=== PATIENT | female | born 1960 | race Caucasian/White ===

== ENCOUNTER 2017-12-24 12:18 | Emergency (ER) | payer MEDICAID, SELFPAY ==
[2017-12-24 12:26] VITALS: BP 130/98; PULSE 75; RESP 16; TEMP 36.3; O2SAT 95
[2017-12-24] MEDS: Ibuprofen 600 MG TAB PO (12:40)
--- NOTE | 2017-12-24 13:00 | W.ED.GENAD ---
Discharge Plan Disposition Patient Disposition: HOME Condition: Good Discharge Details Chief Complaint: Orthopedic Clinical Impression: Contusion of foot, right Primary Care Provider: Malu Sampson ED Provider: Nisha Liu Home Meds and New Rx's Prescriptions: Continue loratadine 10 MG tablet,disintegrating 10 mg PO DAILY RF: 0 carvedilol [Coreg] 3.125 MG tablet 6.25 mg PO BID RF: 0 albuterol sulfate [ProAir HFA] 8.5 GM HFA aerosol inhaler 1 - 2 puff Inhalation Q6H PRN RF: 0 levalbuterol tartrate [Xopenex HFA] 15 GM HFA aerosol inhaler 45 mcg Inhalation Q4H PRN RF: 0 fluticasone-salmeterol [Advair Diskus] 1 EACH blister with device 1 ea Inhalation BID RF: 0 tiotropium bromide [Spiriva with HandiHaler] 1 PUFF capsule, w/inhalation device 1 puff QAM RF: 0 citalopram 20 MG tablet 40 mg PO QAM RF: 0 levothyroxine 50 MCG tablet 50 mcg PO DAILY@0730 RF: 0 gabapentin 300 MG capsule 800 mg PO TID RF: 0 pravastatin 20 MG tablet 80 mg PO QPM RF: 0 omeprazole 40 MG capsule,delayed release(DR/EC) 20 mg PO DAILY RF: 0 cyanocobalamin (vitamin B-12) [Vitamin B-12] 1,000 MCG tablet 1,000 mcg PO DAILY RF: 0 hydroxyzine HCl 25 MG tablet 50 mg PO BID RF: 0 famotidine 20 MG tablet 20 mg PO DAILY 14 Days RF: 0 docusate sodium [Colace] 100 MG capsule 100 mg PO BID PRNQty: 30 RF: 0 ropinirole 0.25 MG tablet 0.25 mg PO BID RF: 0 metformin 500 mg Tablet 500 mg PO BID RF: 0 clopidogrel [Plavix] 75 mg Tablet 75 mg PO DAILY RF: 0 lorazepam 0.5 mg Tablet 0.5 mg PO TID PRNRF: 0 morphine 15 mg Tablet 15 mg PO TID PRNRF: 0 insulin aspart U-100 [Novolog Flexpen U-100 Insulin] 100 unit/mL Insulin Pen RF: 0 Discharge Instructions Instructions: Foot Contusion (ED) Additional Instructions: wear Postop shoe for comfort Ibuprofen 600 mg 4 times daily with food if needed for pain Can add acetaminophen 650 mg 4 times daily for breakthrough pain Use ice or heat for comfort Referrals: Malu Sampson [Primary Care Provider] - Return if symptoms worsen Discharge Data Discharge Date/Time-TO BE ENTERED AT DEPARTURE: 12/24/17 14:07 Medical Decision Making Medical Records Medical records reviewed: Yes I reviewed the patient's medical records. Patient presents with trauma of right foot unable to ambulate due to pain. X-ray obtained Patient provided ibuprofen 600 mg orally Postop shoe applied by nursing Imaging Data Radiologic Study: Attestation: I personally reviewed and interpreted this imaging study as follows: Imaging: X-Ray (Right foot) HPI - General Adult General Date/Time Provider Initiated Documentation: 12/24/17 12:31. Limitations to Documentation: no limitations. Information obtained by: patient and RN notes reviewed. History of Present Illness Quality is described as sharp, and is localized to the right (Foot and toes). Patient reports no radiation. and it has been constant. Immobilization improves symptom(s), and Rest improves symptom(s), Movement worsens symptoms . Patient notes no other symptoms.. Patient did receive the following treatments prior to arrival, other (Elevation) HPI Narrative: Patient presents to the emergency department for evaluation of right foot pain after she dropped a vacuum and lamps on it yesterday, no obvious deformity, ecchymosis noted to dorsum of foot at base of toes. States she cannot move her toes due to pain. Has elevated has not taken any [id number] pain medication Related Data Home Medications Medication Instructions Recorded Confirmed citalopram 40 mg PO QAM 08/31/12 12/24/17 fluticasone-salmeterol [Advair 1 ea INHALATION BID 08/31/12 12/24/17 Diskus] gabapentin 800 mg PO TID 08/31/12 12/24/17 levothyroxine 50 mcg PO DAILY@0730 08/31/12 12/24/17 pravastatin 80 mg PO QPM 08/31/12 12/24/17 tiotropium bromide [Spiriva with 1 puff QAM 08/31/12 12/24/17 HandiHaler] albuterol sulfate [ProAir HFA] 1 - 2 puff INHALATION Q6H PRN 05/04/14 12/24/17 inhaler carvedilol [Coreg] 6.25 mg PO BID tab-cap 05/04/14 08/05/17 levalbuterol tartrate [Xopenex HFA] 45 mcg INHALATION Q4H PRN inhaler 05/04/14 12/24/17 loratadine 10 mg PO DAILY 05/04/14 12/24/17 omeprazole 20 mg PO DAILY 04/26/16 12/24/17 cyanocobalamin (vitamin B-12) 1,000 mcg PO DAILY 10/16/16 12/24/17 [Vitamin B-12] hydroxyzine HCl 50 mg PO BID 10/16/16 12/24/17 ropinirole 0.25 mg PO BID 06/27/17 12/24/17 clopidogrel [Plavix] 75 mg PO DAILY 12/24/17 12/24/17 insulin aspart U-100 [Novolog 12/24/17 Flexpen U-100 Insulin] lorazepam 0.5 mg PO TID PRN 12/24/17 12/24/17 metformin 500 mg PO BID 12/24/17 12/24/17 morphine 15 mg PO TID PRN 12/24/17 12/24/17 Previous Rx's Medication Instructions Recorded famotidine 20 mg PO DAILY 14 Days tab 12/18/16 docusate sodium [Colace] 100 mg PO BID PRN #30 cap 02/20/17 Allergies Allergy/AdvReac Type Severity Reaction Status Date / Time amoxicillin trihydrate Allergy rash/gi Unverified 12/24/17 12:29 [From Augmentin] upset bacitracin Allergy Skin Rash Unverified 12/24/17 12:29 [From Neosporin ([id number])] bacitracin zinc Allergy Skin Rash Unverified 12/24/17 12:29 [From Neosporin ([id number])] neomycin sulfate Allergy Skin Rash Unverified 12/24/17 12:29 [From Neosporin ([id number])] polymyxin B Allergy Skin Rash Unverified 12/24/17 12:29 [From Neosporin ([id number])] potassium clavulanate Allergy rash/gi Unverified 12/24/17 12:29 [From Augmentin] upset aspirin AdvReac Nausea Unverified 12/24/17 12:29 lactose AdvReac gi upset Unverified 12/24/17 12:29 General Stated Complaint: Orthopedic ALLYSON: 4 Review of Systems Review of Systems All systems reviewed & are unremarkable except as noted in HPI and below Musculoskeletal Reports arthralgias (Right foot) PFSH Social History Smoking/Tobacco Use Status: Current every day Exam Extrem General: abnormal ROM Other: Ecchymosis to toes 2 through 5 no obvious deformity, hematoma to third toe Course Vital Signs Temperature 36.3 C L 12/24/17 12:26 Pulse 75 12/24/17 12:26 Respiratory Rate 16 12/24/17 12:26 Blood Pressure 130/98 H 12/24/17 12:26 Pulse Oximetry 95 12/24/17 12:26 Temperature 36.3 C L 12/24/17 12:26 Pulse 75 12/24/17 12:26 Respiratory Rate 16 12/24/17 12:26 Blood Pressure 130/98 H 12/24/17 12:26 Pulse Oximetry 95 12/24/17 12:26
--- NOTE | 2017-12-24 13:05 | DI.RAD_ITS ---
SYMPTOMS/DIAGNOSIS: TRAUMA, PAIN TO 2ND-5TH TOES AND DORSUM OF FOOT RIGHT FOOT: Three views. No acute fracture or dislocation is seen. No radiopaque foreign bodies are seen in the soft tissues. IMPRESSION: No acute abnormality.
--- NOTE | 2017-12-24 13:09 | ED.GENADUL_ITS ---
Discharge Plan Disposition Patient Disposition: HOME Condition: Good Discharge Details Chief Complaint: Orthopedic Clinical Impression: Contusion of foot, right Primary Care Provider: Malu Sampson ED Provider: Nisha Liu Home Meds and New Rx's Prescriptions: Continue loratadine 10 MG tablet,disintegrating 10 mg PO DAILY RF: 0 carvedilol [Coreg] 3.125 MG tablet 6.25 mg PO BID RF: 0 albuterol sulfate [ProAir HFA] 8.5 GM HFA aerosol inhaler 1 - 2 puff Inhalation Q6H PRN RF: 0 levalbuterol tartrate [Xopenex HFA] 15 GM HFA aerosol inhaler 45 mcg Inhalation Q4H PRN RF: 0 fluticasone-salmeterol [Advair Diskus] 1 EACH blister with device 1 ea Inhalation BID RF: 0 tiotropium bromide [Spiriva with HandiHaler] 1 PUFF capsule, w/inhalation device 1 puff QAM RF: 0 citalopram 20 MG tablet 40 mg PO QAM RF: 0 levothyroxine 50 MCG tablet 50 mcg PO DAILY@0730 RF: 0 gabapentin 300 MG capsule 800 mg PO TID RF: 0 pravastatin 20 MG tablet 80 mg PO QPM RF: 0 omeprazole 40 MG capsule,delayed release(DR/EC) 20 mg PO DAILY RF: 0 cyanocobalamin (vitamin B-12) [Vitamin B-12] 1,000 MCG tablet 1,000 mcg PO DAILY RF: 0 hydroxyzine HCl 25 MG tablet 50 mg PO BID RF: 0 famotidine 20 MG tablet 20 mg PO DAILY 14 Days RF: 0 docusate sodium [Colace] 100 MG capsule 100 mg PO BID PRNQty: 30 RF: 0 ropinirole 0.25 MG tablet 0.25 mg PO BID RF: 0 metformin 500 mg Tablet 500 mg PO BID RF: 0 clopidogrel [Plavix] 75 mg Tablet 75 mg PO DAILY RF: 0 lorazepam 0.5 mg Tablet 0.5 mg PO TID PRNRF: 0 morphine 15 mg Tablet 15 mg PO TID PRNRF: 0 insulin aspart U-100 [Novolog Flexpen U-100 Insulin] 100 unit/mL Insulin Pen RF: 0 Discharge Instructions Instructions: Foot Contusion (ED) Additional Instructions: wear Postop shoe for comfort Ibuprofen 600 mg 4 times daily with food if needed for pain Can add acetaminophen 650 mg 4 times daily for breakthrough pain Use ice or heat for comfort Referrals: Malu Sampson [Primary Care Provider] - Return if symptoms worsen Discharge Data Discharge Date/Time-TO BE ENTERED AT DEPARTURE: 12/24/17 14:07 Medical Decision Making Medical Records Medical records reviewed: Yes I reviewed the patient's medical records. Patient presents with trauma of right foot unable to ambulate due to pain. X-ray obtained Patient provided ibuprofen 600 mg orally Postop shoe applied by nursing Imaging Data Radiologic Study: Attestation: I personally reviewed and interpreted this imaging study as follows: Imaging: X-Ray (Right foot) HPI - General Adult General Date/Time Provider Initiated Documentation: 12/24/17 12:31 . Limitations to Documentation: no limitations . Information obtained by: patient and RN notes reviewed . History of Present Illness Quality is described as sharp, and is localized to the right (Foot and toes). Patient reports no radiation. and it has been constant. Immobilization improves symptom(s), and Rest improves symptom(s), Movement worsens symptoms . Patient notes no other symptoms.. Patient did receive the following treatments prior to arrival, other (Elevation) HPI Narrative: Patient presents to the emergency department for evaluation of right foot pain after she dropped a vacuum and lamps on it yesterday, no obvious deformity, ecchymosis noted to dorsum of foot at base of toes. States she cannot move her toes due to pain. Has elevated has not taken any over-the- counter pain medication Related Data Home Medications Medication Instructions Recorded Confirmed citalopram 40 mg PO QAM 08/31/12 12/24/17 fluticasone-salmeterol [Advair 1 ea INHALATION BID 08/31/12 12/24/17 Diskus] gabapentin 800 mg PO TID 08/31/12 12/24/17 levothyroxine 50 mcg PO DAILY@0730 08/31/12 12/24/17 pravastatin 80 mg PO QPM 08/31/12 12/24/17 tiotropium bromide [Spiriva with 1 puff QAM 08/31/12 12/24/17 HandiHaler] albuterol sulfate [ProAir HFA] 1 - 2 puff INHALATION Q6H PRN 05/04/14 12/24/17 inhaler carvedilol [Coreg] 6.25 mg PO BID tab-cap 05/04/14 08/05/17 levalbuterol tartrate [Xopenex HFA] 45 mcg INHALATION Q4H PRN inhaler 05/04/14 12/24/17 loratadine 10 mg PO DAILY 05/04/14 12/24/17 omeprazole 20 mg PO DAILY 04/26/16 12/24/17 cyanocobalamin (vitamin B-12) 1,000 mcg PO DAILY 10/16/16 12/24/17 [Vitamin B-12] hydroxyzine HCl 50 mg PO BID 10/16/16 12/24/17 ropinirole 0.25 mg PO BID 06/27/17 12/24/17 clopidogrel [Plavix] 75 mg PO DAILY 12/24/17 12/24/17 insulin aspart U-100 [Novolog 12/24/17 Flexpen U-100 Insulin] lorazepam 0.5 mg PO TID PRN 12/24/17 12/24/17 metformin 500 mg PO BID 12/24/17 12/24/17 morphine 15 mg PO TID PRN 12/24/17 12/24/17 Previous Rx's Medication Instructions Recorded famotidine 20 mg PO DAILY 14 Days tab 12/18/16 docusate sodium [Colace] 100 mg PO BID PRN #30 cap 02/20/17 Allergies Allergy/AdvReac Type Severity Reaction Status Date / Time amoxicillin trihydrate Allergy rash/gi Unverified 12/24/17 12:29 [From Augmentin] upset bacitracin Allergy Skin Rash Unverified 12/24/17 12:29 [From Neosporin ([id number])] bacitracin zinc Allergy Skin Rash Unverified 12/24/17 12:29 [From Neosporin ([id number])] neomycin sulfate Allergy Skin Rash Unverified 12/24/17 12:29 [From Neosporin ([id number])] polymyxin B Allergy Skin Rash Unverified 12/24/17 12:29 [From Neosporin ([id number])] potassium clavulanate Allergy rash/gi Unverified 12/24/17 12:29 [From Augmentin] upset aspirin AdvReac Nausea Unverified 12/24/17 12:29 lactose AdvReac gi upset Unverified 12/24/17 12:29 General Stated Complaint: Orthopedic ALLYSON: 4 Review of Systems Review of Systems All systems reviewed & are unremarkable except as noted in HPI and below Musculoskeletal Reports arthralgias (Right foot) PFSH Social History Smoking/Tobacco Use Status: Current every day Exam Extrem General: abnormal ROM Other: Ecchymosis to toes 2 through 5 no obvious deformity, hematoma to third toe Course Vital Signs Temperature 36.3 C L 12/24/17 12:26 Pulse 75 12/24/17 12:26 Respiratory Rate 16 12/24/17 12:26 Blood Pressure 130/98 H 12/24/17 12:26 Pulse Oximetry 95 12/24/17 12:26 Temperature 36.3 C L 12/24/17 12:26 Pulse 75 12/24/17 12:26 Respiratory Rate 16 12/24/17 12:26 Blood Pressure 130/98 H 12/24/17 12:26 Pulse Oximetry 95 12/24/17 12:26
== END 2017-12-24 14:07 | disposition home or self-care (01) ==
LOC: ER 13:23
PROVIDERS: Emergency Provider Nurse Practitioner Acute Care; PCP Nurse Practitioner Family
DX: S90.31XA Contusion of right foot, initial encounter (principal); W20.8XXA Other cause of strike by thrown, projected or falling object, initial encounter
CPT/HCPCS: 29515; 99284; 73630; 99281

== ENCOUNTER 2018-01-26 09:16 | Emergency (ER) | payer MEDICAID, SELFPAY ==
[2018-01-26 10:12] VITALS: BP 112/74; PULSE 72; RESP 16; TEMP 36.4; O2SAT 96
--- NOTE | 2018-01-26 11:39 | ED.GENADUL_ITS ---
Discharge Plan Disposition Patient Disposition: HOME Condition: Good Discharge Details Chief Complaint: GenMedical Clinical Impression: Contusion of knee Primary Care Provider: Mehul Valladares ED Provider: Cj Duffy [place] Meds and New Rx's Prescriptions: No Action loratadine 10 MG tablet,disintegrating 10 mg PO DAILY RF: 0 carvedilol [Coreg] 3.125 MG tablet 6.25 mg PO BID RF: 0 albuterol sulfate [ProAir HFA] 8.5 GM HFA aerosol inhaler 1 - 2 puff Inhalation Q6H PRN RF: 0 levalbuterol tartrate [Xopenex HFA] 15 GM HFA aerosol inhaler 45 mcg Inhalation Q4H PRN RF: 0 fluticasone-salmeterol [Advair Diskus] 1 EACH blister with device 1 ea Inhalation BID RF: 0 tiotropium bromide [Spiriva with HandiHaler] 1 PUFF capsule, w/inhalation device 1 puff QAM RF: 0 citalopram 20 MG tablet 40 mg PO QAM RF: 0 levothyroxine 50 MCG tablet 50 mcg PO DAILY@0730 RF: 0 gabapentin 300 MG capsule 800 mg PO TID RF: 0 pravastatin 20 MG tablet 80 mg PO QPM RF: 0 omeprazole 40 MG capsule,delayed release(DR/EC) 20 mg PO DAILY RF: 0 cyanocobalamin (vitamin B-12) [Vitamin B-12] 1,000 MCG tablet 1,000 mcg PO DAILY RF: 0 hydroxyzine HCl 25 MG tablet 50 mg PO BID RF: 0 famotidine 20 MG tablet 20 mg PO DAILY 14 Days RF: 0 docusate sodium [Colace] 100 MG capsule 100 mg PO BID PRNQty: 30 RF: 0 ropinirole 0.25 MG tablet 0.25 mg PO BID RF: 0 metformin 500 mg Tablet 500 mg PO BID RF: 0 clopidogrel [Plavix] 75 mg Tablet 75 mg PO DAILY RF: 0 lorazepam 0.5 mg Tablet 0.5 mg PO TID PRNRF: 0 morphine 15 mg Tablet 15 mg PO TID PRNRF: 0 insulin aspart U-100 [Novolog Flexpen U-100 Insulin] 100 unit/mL Insulin Pen RF: 0 Discharge Instructions Instructions: Contusion in Adults (ED) Additional Instructions: Please f/u with your PCP to evaluate the need to see neurology. Patient states she has history of MS. Referrals: Malu Sampson [ NON-[facility] STAFF PHYSICIAN] - Discharge Data Discharge Date/Time-TO BE ENTERED AT DEPARTURE: 01/26/18 12:35 Medical Decision Making Will x-ray knee. Patient apprised of knee x-ray impression with radiologist confirming. Advised to continue with RICE therapy and Tylenol for pain. Return PCP if symptoms continue. Return to ED as needed. Imaging Data Radiologic Study: Imaging: X-Ray My impression: no acute lucy pathology. Radiologist's impression: Agreed no acute fracture. HPI General Mode of arrival: wheelchair . Date/Time Provider Initiated Documentation: 01/26/18 10:20 . Limitations to Documentation: no limitations . Information obtained by: patient . History of Present Illness 57 year old F presents to the emergency department with the chief complaint of knee pain and right side of abdomen pain after fall, described as mild, Quality is described as aching, and is localized to the right (knee) and lower extremity. Patient reports no radiation. Patient started experiencing this day(s) (1) and it has been constant. No relieving factors improve symptom(s), Movement worsens symptoms . Patient notes other (right side pain ). Patient did receive the following treatments prior to arrival, none HPI Narrative: She reports falling allot and last time was yesterday. She landed on her right knee and noticed swelling last night and applied ice. Swelling almost resolved today. Her right side started hurting shortly after the fall. Denies any dizziness, N/V, head trauma, SOB or CP. Related Data Home Medications Medication Instructions Recorded Confirmed citalopram 40 mg PO QAM 08/31/12 12/24/17 fluticasone-salmeterol [Advair 1 ea INHALATION BID 08/31/12 12/24/17 Diskus] gabapentin 800 mg PO TID 08/31/12 12/24/17 levothyroxine 50 mcg PO DAILY@0730 08/31/12 12/24/17 pravastatin 80 mg PO QPM 08/31/12 12/24/17 tiotropium bromide [Spiriva with 1 puff QAM 08/31/12 12/24/17 HandiHaler] albuterol sulfate [ProAir HFA] 1 - 2 puff INHALATION Q6H PRN 05/04/14 12/24/17 inhaler carvedilol [Coreg] 6.25 mg PO BID tab-cap 05/04/14 08/05/17 levalbuterol tartrate [Xopenex HFA] 45 mcg INHALATION Q4H PRN inhaler 05/04/14 12/24/17 loratadine 10 mg PO DAILY 05/04/14 12/24/17 omeprazole 20 mg PO DAILY 04/26/16 12/24/17 cyanocobalamin (vitamin B-12) 1,000 mcg PO DAILY 10/16/16 12/24/17 [Vitamin B-12] hydroxyzine HCl 50 mg PO BID 10/16/16 12/24/17 famotidine 20 mg PO DAILY 14 Days tab 12/18/16 12/24/17 docusate sodium [Colace] 100 mg PO BID PRN #30 cap 02/20/17 12/24/17 ropinirole 0.25 mg PO BID 06/27/17 12/24/17 clopidogrel [Plavix] 75 mg PO DAILY 12/24/17 12/24/17 insulin aspart U-100 [Novolog 12/24/17 Flexpen U-100 Insulin] lorazepam 0.5 mg PO TID PRN 12/24/17 12/24/17 metformin 500 mg PO BID 12/24/17 12/24/17 morphine 15 mg PO TID PRN 12/24/17 12/24/17 Previous Rx's Medication Instructions Recorded famotidine 20 mg PO DAILY 14 Days tab 12/18/16 docusate sodium [Colace] 100 mg PO BID PRN #30 cap 02/20/17 Allergies Allergy/AdvReac Type Severity Reaction Status Date / Time amoxicillin trihydrate Allergy rash/gi Unverified 12/24/17 12:29 [From Augmentin] upset bacitracin Allergy Skin Rash Unverified 12/24/17 12:29 [From Neosporin ([id number])] bacitracin zinc Allergy Skin Rash Unverified 12/24/17 12:29 [From Neosporin (mai-[id number])] neomycin sulfate Allergy Skin Rash Unverified 12/24/17 12:29 [From Neosporin ([id number])] polymyxin B Allergy Skin Rash Unverified 12/24/17 12:29 [From Neosporin ([id number])] potassium clavulanate Allergy rash/gi Unverified 12/24/17 12:29 [From Augmentin] upset aspirin AdvReac Nausea Unverified 12/24/17 12:29 lactose AdvReac gi upset Unverified 12/24/17 12:29 General Stated Complaint: Orthopedic ALLYSON: 4 Review of Systems Constitutional Reports as per HPI Respiratory Reports system reviewed and no additional complaints, except as docu Gastrointestinal Reports system reviewed and no additional complaints, except as docu Genitourinary Reports system reviewed and no additional complaints, except as docu Musculoskeletal Reports other (pain to right side of abdomen and right knee) Neurologic Reports system reviewed and no additional complaints, except as docu Exam Const General: cooperative Nutritional Appearance: overweight Orientation: alert, awake and oriented x3 HENMT Head: normal to inspection Ears: hearing grossly normal bilaterally General nose exam: external nose normal Eyes General: appearance normal, both eyes and all related structures Neck Neck: normal visual inspection Resp Effort & Inspection: normal respiratory effort Auscultation: clear to auscultation bilaterally Cardio Jugular venous pressure: no JVD Rate: regular rate Rhythm: regular rhythm GI Inspection: non-distended Palpation: soft and nontender Auscultation: normal bowel sounds Back/Spine/Pelvis Back: No back tenderness Skin General skin exam: no rashes or lesions noted Neuro General: alert and awake Cognition: normal cognition Speech: speech normal Extrem General: normal to inspection, full ROM and normal capillary refill Right lower extremity: normal to inspection, full ROM, no joint enlargement and knee Details: normal to inspection, tenderness (through out the knee) Location: of the patella, of the popliteal fossa, of the medial joint line and of the lateral joint line, normal ROM and knee ligament exam normal; no swelling Course Vital Signs Temperature 36.4 C L 01/26/18 10:12 Pulse 72 01/26/18 10:12 Respiratory Rate 16 01/26/18 10:12 Blood Pressure 112/74 01/26/18 10:12 Pulse Oximetry 96 01/26/18 10:12 Temperature 36.4 C L 01/26/18 10:12 Temperature Source Temporal Artery Scan 01/26/18 10:12 Pulse 72 01/26/18 10:12 Respiratory Rate 16 01/26/18 10:12 Respiratory Effort 01/26/18 10:14 Blood Pressure 112/74 01/26/18 10:12 Blood Pressure Position Sitting 01/26/18 10:12 Pulse Oximetry 96 01/26/18 10:12 Oxygen Delivery Method Room Air 01/26/18 10:12 Oxygen Flow Rate 0 01/26/18 10:12 Pain Level 10 01/26/18 10:12
[2018-01-26] MEDS: Acetaminophen 500 MG TAB 1000 MG PO (11:52)
--- NOTE | 2018-01-26 11:55 | DI.RAD_ITS ---
SYMPTOM/DIAGNOSIS: FELL, PAIN RIGHT KNEE: Four views were obtained. There may be slight narrowing of the medial tibiofemoral cartilaginous joint space. The bones of the knee appear intact. No evidence of acute fracture.
== END 2018-01-26 12:35 | disposition home or self-care (01) ==
PROVIDERS: Emergency Provider Nurse Practitioner Family; PCP Internal Medicine
DX: S80.01XA Contusion of right knee, initial encounter (principal); W18.30XA Fall on same level, unspecified, initial encounter; R29.6 Repeated falls; G35 Multiple sclerosis; E11.9 Type 2 diabetes mellitus without complications; Z79.4 Long term (current) use of insulin; I10 Essential (primary) hypertension
CPT/HCPCS: 99283; 73564

== ENCOUNTER 2018-02-06 09:39 | Outpatient (CLI) | payer MEDICAID, SELFPAY ==
[2018-02-06 09:59] LABS: Abs Immature Grans 0.05 k/cumm (0.0-0.09); Absolute Basophil Count 0.01 k/cumm (0.0-0.2); Absolute Eosinophil Count 0.18 k/cumm (0.0-0.7); Absolute Lymphocyte Count 2.22 k/cumm (1.2-3.4); Absolute Monocyte Count 0.48 k/cumm (0.11-0.7); Absolute Neutrophil Count 3.52 k/cumm (1.2-6.7); Basophils % 0.2; Eosinophils % 2.8; HCT 39.6 % (36.0-46.0); HGB 13.2 g/dL (12.0-15.5); Immature Grans % 0.8; Lymphocytes % 34.4; Mean Corp. HGB Concentration 33.3 g/dL (32.0-36.0); Mean Corpuscular Hemoglobin 29.9 pg (27.0-33.0); Mean Corpuscular Volume 89.6 fL (80-95); Mean Platelet Volume 9.5 fL (8.0-11.0); Monocytes % 7.4; Neutrophils % 54.4; Platelet Count 114 x1000/uL (130-400); RBC 4.42 m/cumm (4.00-5.20); RBC Distribution Width 14.1 % (11.7-14.6); White Blood Cell Count 6.46 k/cumm (4.4-10.8)
[2018-02-06 10:36] LABS: C-Reactive Protein 0.62 mg/dL (0.0-0.3)
[2018-02-06 12:26] LABS: ESR 29 MM/HR (0-30)
== END 2018-02-06 09:59 ==
PROVIDERS: PCP Internal Medicine; Visit Provider Internal Medicine
DX: H53.132 Sudden visual loss, left eye (principal)
CPT/HCPCS: 36415; 85652; 85025; 86140

== ENCOUNTER 2018-02-19 11:20 | Outpatient (CLI) | payer MEDICAID, SELFPAY ==
[2018-02-19 11:57] LABS: Abs Immature Grans 0.03 k/cumm (0.0-0.09); Absolute Basophil Count 0.01 k/cumm (0.0-0.2); Absolute Eosinophil Count 0.14 k/cumm (0.0-0.7); Absolute Lymphocyte Count 2.33 k/cumm (1.2-3.4); Absolute Monocyte Count 0.48 k/cumm (0.11-0.7); Absolute Neutrophil Count 3.72 k/cumm (1.2-6.7); Basophils % 0.1; Eosinophils % 2.1; HCT 39.8 % (36.0-46.0); HGB 13.4 g/dL (12.0-15.5); Immature Grans % 0.4; Lymphocytes % 34.7; Mean Corp. HGB Concentration 33.7 g/dL (32.0-36.0); Mean Corpuscular Hemoglobin 30.5 pg (27.0-33.0); Mean Corpuscular Volume 90.5 fL (80-95); Mean Platelet Volume 9.5 fL (8.0-11.0); Monocytes % 7.2; Neutrophils % 55.5; Platelet Count 134 x1000/uL (130-400); RBC Distribution Width 14.5 % (11.7-14.6); White Blood Cell Count 6.71 k/cumm (4.4-10.8)
[2018-02-19 12:06] LABS: INR 1.1 (1.0-3.5); PTT Activated 24.8 sec (21.0-31.4)
[2018-02-19 13:11] LABS: Uric Acid 6.2 mg/dL (2.6-6.0)
== END 2018-02-19 11:40 ==
PROVIDERS: PCP Internal Medicine; Visit Provider Internal Medicine
DX: M79.674 Pain in right toe(s) (principal); R23.9 Unspecified skin changes; K70.30 Alcoholic cirrhosis of liver without ascites
CPT/HCPCS: 36415; 84550; 85025; 85610; 85730

== ENCOUNTER 2018-03-16 19:33 | Emergency (ER) | payer MEDICAID, SELFPAY ==
[2018-03-16] VITALS (16 sets, daily range): BP systolic 115–140; BP diastolic 74–102; PULSE 63–107; RESP 18; TEMP 36; O2SAT 94–98
--- NOTE | 2018-03-16 20:17 | W.ED.GENAD ---
Discharge Plan Disposition Patient Disposition: HOME Condition: Stable Discharge Details Chief Complaint: Nausea/Vomit/Diar Clinical Impression: Vomiting, Chronic pain of toe, History of gout Reason For Visit: SACHA Primary Care Provider: Mehul Valladares ED Provider: Elyse Poe Home Meds and New Rx's Prescriptions: Continue loratadine 10 MG tablet,disintegrating 10 mg PO DAILY RF: 0 carvedilol [Coreg] 3.125 MG tablet 6.25 mg PO BID RF: 0 albuterol sulfate [ProAir HFA] 8.5 GM HFA aerosol inhaler 1 - 2 puff Inhalation Q6H PRN RF: 0 levalbuterol tartrate [Xopenex HFA] 15 GM HFA aerosol inhaler 45 mcg Inhalation Q4H PRN RF: 0 fluticasone-salmeterol [Advair Diskus] 1 EACH blister with device 1 ea Inhalation BID RF: 0 tiotropium bromide [Spiriva with HandiHaler] 1 PUFF capsule, w/inhalation device 1 puff QAM RF: 0 citalopram 20 MG tablet 40 mg PO QAM RF: 0 levothyroxine 50 MCG tablet 50 mcg PO DAILY@0730 RF: 0 gabapentin 300 MG capsule 800 mg PO TID RF: 0 pravastatin 20 MG tablet 80 mg PO QPM RF: 0 omeprazole 40 MG capsule,delayed release(DR/EC) 20 mg PO DAILY RF: 0 cyanocobalamin (vitamin B-12) [Vitamin B-12] 1,000 MCG tablet 1,000 mcg PO DAILY RF: 0 hydroxyzine HCl 25 MG tablet 50 mg PO BID RF: 0 famotidine 20 MG tablet 20 mg PO DAILY 14 Days RF: 0 docusate sodium [Colace] 100 MG capsule 100 mg PO BID PRNQty: 30 RF: 0 ropinirole 0.25 MG tablet 0.25 mg PO BID RF: 0 clopidogrel [Plavix] 75 mg Tablet 75 mg PO DAILY RF: 0 lorazepam 0.5 mg Tablet 0.5 mg PO TID PRNRF: 0 insulin aspart U-100 [Novolog Flexpen U-100 Insulin] 100 unit/mL Insulin Pen RF: 0 colchicine 0.6 mg Tablet 1 tab PO DAILY RF: 0 Discharge Instructions Instructions: Acute Nausea and Vomiting (ED), Arthralgia (ED) Additional Instructions: Take the compazine as needed and directed for any further nausea or vomiting. Take the colchicine as directed for your gout. Take tylenol as needed and directed for pain. Take the oxycodone as needed for pain not relieved with colchicine or tylenol. Follow up with your scheduled appointment with your primary care doctor tomorrow. Return immediately to the emergency department with any worsening or new concerning symptoms. Discharge Data Discharge Physician: Elyse Poe Medical Decision Making 57yo F w/ a h/o dm, anxiety, depression, diabetes who presents with intermittent vomiting for the past 1-2 weeks which she states is due to gout of her R 3rd toe being treated with colchicine. She denies fever, abdominal pain, diarrhea, recent travel or antibiotics. She has been trying to take her colchicine but is vomiting. Vitals within normal limits. Afebrile. R 3rd toe with very minimal erythema but no evidence of cellulitis or abscess. NV intact. Abd soft and nontender. Pt appears nontoxic but is tearful and anxious. I do not see any indication for labs or imaging and patient is agreeable and does not want any IV, IV fluids or lab work. Patient states she only wants something for her nausea and pain will give a dose of compazine and tylenol with codeine and reassess with po challenge. 2044 -- pt admits to relief of nausea but still with pain. Will give a dose of motrin. Pt denies h/o allergy to motrin. 2109 --patient denies relief with ibuprofen. Will give a dose of oxycodone. Review of [place] prescription monitoring program noted that patient had been on morphine previously, not since September 2017. Patient was able to tolerate p.o. and is requesting to go home. 1 tab of oxycodone and 2 tablets of Compazine given for home. Patient has an appointment with her primary doctor who prescribed the colchicine in [place] tomorrow. She is instructed to discuss with him if there are any other options she can take for her gout besides the colchicine as she feels like this may be the cause of her nausea and vomiting and she states she needs something better to help control her pain in her toe. Patient instructed to return here with any concerns or worsening symptoms. HPI General Mode of arrival: ambulatory. Date/Time Provider Initiated Documentation: 03/16/18 19:34. Limitations to Documentation: no limitations. Information obtained by: patient. HPI Narrative: Pt is a 57yo F w/ a h/o alcohol abuse, anxiety, depression, diabetes, hypothyroidism, hypertension who presents w/ a c/o R 3rd toe pain due to gout for a couple weeks. States she has been vomiting occasionally due to the pain. Pt states she vomited a few times daily. She states she is being treated for gout of her toe by her primary care doctor in [place] since last week. She states the pain is getting worse. She denies any new injury or fever. Pt states she is wearing a boot on her right foot to protect her toe from injury while walking and to prevent from getting wet. She denies recent travel, recent antibiotics, abdominal pain or diarrhea. Related Data Home Medications Medication Instructions Recorded Confirmed citalopram 40 mg PO QAM 08/31/12 03/16/18 fluticasone-salmeterol [Advair 1 ea INHALATION BID 08/31/12 03/16/18 Diskus] gabapentin 800 mg PO TID 08/31/12 03/16/18 levothyroxine 50 mcg PO DAILY@0730 08/31/12 03/16/18 pravastatin 80 mg PO QPM 08/31/12 03/16/18 tiotropium bromide [Spiriva with 1 puff QAM 08/31/12 03/16/18 HandiHaler] albuterol sulfate [ProAir HFA] 1 - 2 puff INHALATION Q6H PRN 05/04/14 03/16/18 inhaler carvedilol [Coreg] 6.25 mg PO BID tab-cap 05/04/14 03/16/18 levalbuterol tartrate [Xopenex HFA] 45 mcg INHALATION Q4H PRN inhaler 05/04/14 03/16/18 loratadine 10 mg PO DAILY 05/04/14 03/16/18 omeprazole 20 mg PO DAILY 04/26/16 03/16/18 cyanocobalamin (vitamin B-12) 1,000 mcg PO DAILY 10/16/16 03/16/18 [Vitamin B-12] hydroxyzine HCl 50 mg PO BID 10/16/16 03/16/18 famotidine 20 mg PO DAILY 14 Days tab 12/18/16 03/16/18 docusate sodium [Colace] 100 mg PO BID PRN #30 cap 02/20/17 03/16/18 ropinirole 0.25 mg PO BID 06/27/17 03/16/18 clopidogrel [Plavix] 75 mg PO DAILY 12/24/17 03/16/18 insulin aspart U-100 [Novolog 12/24/17 Flexpen U-100 Insulin] lorazepam 0.5 mg PO TID PRN 12/24/17 03/16/18 colchicine 1 tab PO DAILY 03/16/18 03/16/18 Previous Rx's Medication Instructions Recorded famotidine 20 mg PO DAILY 14 Days tab 12/18/16 docusate sodium [Colace] 100 mg PO BID PRN #30 cap 02/20/17 Allergies Allergy/AdvReac Type Severity Reaction Status Date / Time amoxicillin trihydrate Allergy rash/gi Unverified 03/16/18 19:44 [From Augmentin] upset bacitracin Allergy Skin Rash Unverified 03/16/18 19:44 [From Neosporin ([id number])] bacitracin zinc Allergy Skin Rash Unverified 03/16/18 19:44 [From Neosporin ([id number])] neomycin sulfate Allergy Skin Rash Unverified 03/16/18 19:44 [From Neosporin ([id number])] polymyxin B Allergy Skin Rash Unverified 03/16/18 19:44 [From Neosporin ([id number])] potassium clavulanate Allergy rash/gi Unverified 03/16/18 19:44 [From Augmentin] upset aspirin AdvReac Nausea Unverified 03/16/18 19:44 lactose AdvReac gi upset Unverified 03/16/18 19:44 General Stated Complaint: Nausea/Vomit/Diar ALLYSON: 3 Review of Systems Review of Systems All systems reviewed & are unremarkable except as noted in HPI and below Constitutional Reports as per HPI, Denies chills and Denies fever(s) Eyes Denies blurry vision ENT Denies dizziness, Denies sore throat and Denies throat swelling Cardiovascular Denies chest pain and Denies dyspnea Respiratory Denies dyspnea Gastrointestinal Denies abdominal pain, Denies diarrhea and Reports vomiting Genitourinary Denies hematuria and Denies dysuria Musculoskeletal Denies back pain and Denies numbness Integumentary/Breasts Denies lesions and Denies rash Neurologic Denies dizziness and Denies numbness Allergic/Immunologic Denies throat swelling [facility] Social History Smoking/Tobacco Use Status: Current every day Social History Smoking/Tobacco Use Status: Current every day Exam Const General: cooperative, healthy appearing and no acute distress HENMT Head: normal to inspection Mouth: oral mucosae normal Eyes General: appearance normal, both eyes and all related structures Neck Neck: normal visual inspection Resp Effort & Inspection: normal respiratory effort and able to speak in complete sentences Auscultation: clear to auscultation bilaterally Cardio Rate: regular rate Rhythm: regular rhythm GI Palpation: soft, not firm, not rigid and nontender Auscultation: hypoactive bowel sounds Skin General skin exam: no rashes or lesions noted Neuro General: alert, awake and oriented x3 Motor: muscle tone normal throughout Extrem Right lower extremity: lower leg Details: normal to inspection and no edema; no erythema and no tenderness, ankle Details: normal to inspection; no tenderness and no ecchymosis and foot (very minimal area of erythema approximately 2x2mm on R anterior distal toe overlying IP joint w/ tenderness to palpation but no abscess, fluctuance, induration. Remainder of toes appear normal to inspection) Details: vascular exam Details: dorsalis pedis pulse present and posterior tibial pulse present Psych Appearance: grossly normal Affect: normal affect Course Vital Signs Temperature 96.8 F L 03/16/18 19:39 Pulse 73 03/16/18 19:39 Respiratory Rate 18 03/16/18 19:39 Blood Pressure 128/97 H 03/16/18 19:39 Pulse Oximetry 98 03/16/18 19:39 Temperature 96.8 F L 03/16/18 19:39 Temperature Source Skin 03/16/18 19:39 Pulse 73 03/16/18 19:39 Respiratory Rate 18 03/16/18 19:39 Respiratory Effort Non-Labored 03/16/18 19:42 Blood Pressure 128/97 H 03/16/18 19:39 Pulse Oximetry 98 03/16/18 19:39 Oxygen Delivery Method Room Air 03/16/18 19:39 Oxygen Flow Rate 0 03/16/18 19:39 Pain Level 10 03/16/18 19:39
[2018-03-16] MEDS: Prochlorperazine 10 MG TAB PO ×2 (20:22→21:24)
[2018-03-16] MEDS: Ibuprofen 600 MG TAB PO (20:48)
[2018-03-16] MEDS: oxyCODONE 5 MG TAB PO ×2 (21:21→21:23)
== END 2018-03-16 21:30 | disposition home or self-care (01) ==
LOC: ER 21:35
PROVIDERS: Emergency Provider Physician Assistant; PCP Internal Medicine
DX: R11.2 Nausea with vomiting, unspecified (principal); M79.674 Pain in right toe(s); G89.29 Other chronic pain; M10.9 Gout, unspecified; E11.9 Type 2 diabetes mellitus without complications; Z79.4 Long term (current) use of insulin; I10 Essential (primary) hypertension
CPT/HCPCS: 99283

== ENCOUNTER 2018-04-05 10:05 | Emergency (ER) | payer MEDICAID, SELFPAY ==
[2018-04-05 10:10] VITALS: BP 138/80; PULSE 75; RESP 16; TEMP 36.9; O2SAT 96
--- NOTE | 2018-04-05 10:12 | NUR.NOTE ---
MD Valencia is at the bedside. Call liu in reach.
[2018-04-05 10:15] VITALS: BP 148/80; PULSE 72; RESP 16; TEMP 36.9; O2SAT 97
--- NOTE | 2018-04-05 10:15 | DI.RAD_ITS ---
SYMPTOM/DIAGNOSIS: FALL, LT FOOT PAIN LEFT FOOT: 04/05/18 Three views were obtained. No fracture seen.
--- NOTE | 2018-04-05 10:15 | DI.CT_ITS ---
SYMPTOM/DIAGNOSIS: FALL, H/O ALCOHOL ABUSE, LT SIDED PAIN CRANIAL CT: 04/05/[address] was performed. A noncontrast cranial CT was performed. The ventricular system is normal in appearance. There is no evidence of an intracranial mass lesion. There is no evidence of a subdural or epidural hematoma. No focal areas of decreased attenuation are seen. CONCLUSION: Normal noncontrast Cranial CT.
--- NOTE | 2018-04-05 10:15 | DI.RAD_ITS ---
SYMPTOM/DIAGNOSIS: FALL, PAIN PELVIS: 04/05 Single view only of the pelvis was obtained. Please note the findings are inadequate to exclude hip fracture. No gross fracture identified on the single view.
--- NOTE | 2018-04-05 10:15 | DI.RAD_ITS ---
SYMPTOM/DIAGNOSIS: FALL LT PAIN LEFT KNEE: 04/05 Three views were obtained. No fracture seen.
[2018-04-05] MEDS: HYDROmorphone 2 MG/ML VIAL 0.5 MG IVP (10:28)
[2018-04-05 10:38] LABS: Abs Immature Grans 0.05 k/cumm (0.0-0.09); Absolute Basophil Count 0.02 k/cumm (0.0-0.2); Absolute Lymphocyte Count 2.77 k/cumm (1.2-3.4); Absolute Monocyte Count 0.49 k/cumm (0.11-0.7); Absolute Neutrophil Count 4.78 k/cumm (1.2-6.7); Basophils % 0.2; Eosinophils % 1.2; HCT 39.7 % (36.0-46.0); HGB 13.6 g/dL (12.0-15.5); Immature Grans % 0.6; Lymphocytes % 33.7; Mean Corp. HGB Concentration 34.3 g/dL (32.0-36.0); Mean Corpuscular Hemoglobin 30.6 pg (27.0-33.0); Mean Corpuscular Volume 89.4 fL (80-95); Mean Platelet Volume 9.7 fL (8.0-11.0); Neutrophils % 58.3; Platelet Count 121 x1000/uL (130-400); RBC 4.44 m/cumm (4.00-5.20); RBC Distribution Width 13.8 % (11.7-14.6); White Blood Cell Count 8.21 k/cumm (4.4-10.8)
--- NOTE | 2018-04-05 10:48 | W.ED.GENAD ---
Discharge Plan Disposition Patient Disposition: HOME Condition: Improving Discharge Details Chief Complaint: Orthopedic Clinical Impression: Left ankle sprain Primary Care Provider: Mehul Valladares ED Provider: Gilberto Valencia Home Meds and New Rx's Prescriptions: Continued loratadine 10 MG tablet,disintegrating 10 mg PO DAILY RF: 0 carvedilol [Coreg] 3.125 MG tablet 6.25 mg PO BID RF: 0 albuterol sulfate [ProAir HFA] 8.5 GM HFA aerosol inhaler 1 - 2 puff Inhalation Q6H PRN RF: 0 levalbuterol tartrate [Xopenex HFA] 15 GM HFA aerosol inhaler 45 mcg Inhalation Q4H PRN RF: 0 fluticasone-salmeterol [Advair Diskus] 1 EACH blister with device 1 ea Inhalation BID RF: 0 tiotropium bromide [Spiriva with HandiHaler] 1 PUFF capsule, w/inhalation device 1 puff QAM RF: 0 citalopram 20 MG tablet 40 mg PO QAM RF: 0 levothyroxine 50 MCG tablet 50 mcg PO DAILY@0730 RF: 0 gabapentin 300 MG capsule 800 mg PO TID RF: 0 pravastatin 20 MG tablet 80 mg PO QPM RF: 0 omeprazole 40 MG capsule,delayed release(DR/EC) 20 mg PO DAILY RF: 0 cyanocobalamin (vitamin B-12) [Vitamin B-12] 1,000 MCG tablet 1,000 mcg PO DAILY RF: 0 hydroxyzine HCl 25 MG tablet 50 mg PO BID RF: 0 famotidine 20 MG tablet 20 mg PO DAILY 14 Days RF: 0 docusate sodium [Colace] 100 MG capsule 100 mg PO BID PRNQty: 30 RF: 0 ropinirole 0.25 MG tablet 0.25 mg PO BID RF: 0 clopidogrel [Plavix] 75 mg Tablet 75 mg PO DAILY RF: 0 lorazepam 0.5 mg Tablet 0.5 mg PO TID PRNRF: 0 insulin aspart U-100 [Novolog Flexpen U-100 Insulin] 100 unit/mL Insulin Pen RF: 0 colchicine 0.6 mg Tablet 1 tab PO DAILY RF: 0 Discharge Instructions Instructions: Ankle Sprain (ED) Additional Instructions: Please wear walking boot 3-7 days time with partial weightbearing as needed for pain and discomfort. Elevate above level of the heart and apply ice to reduce pain and swelling. Follow-up with regular doctor if not improving in 5 days time. Continue all regular medications. Medical Decision Making 57-year-old female with a history of alcohol abuse, mood disorder who presents with fall after slipping on ice on a sidewalk. She is not a particularly good historian. She relates pain primarily at the left foot but also knee and pelvis. Screening head CT, radiographs, laboratories obtained. Diagnostics reveal unremarkable radiographs of the left knee, foot, pelvis. CT scan of the head unremarkable for acute process. Laboratories without a significant acute finding. Patient improved with parenteral analgesia. She wears intermittently a right lower extremity walking boot but states that it is not required, is more for comfort. Today, her presentation is most consistent with left foot and ankle sprain. She is placed in an equalizer walking boot, she does have a home wheeled walker and will be discharged with her daughter to her house in [place], [place] Lab Data Lab results reviewed: Yes I reviewed the patient's lab results. Laboratory Tests Range/Units 04/05/18 04/05/18 10:30 10:30 WBC (4.4-10.8) k/cumm 8.21 RBC (4.00-5.20) m/cumm 4.44 Hgb (12.0-15.5) g/dL 13.6 Hct (36.0-46.0) % 39.7 MCV (80-95) fL 89.4 MCH (27.0-33.0) pg 30.6 MCHC (32.0-36.0) g/dL 34.3 RDW (11.7-14.6) % 13.8 Plt Count (130-400) x1000/uL 121 L MPV (8.0-11.0) fL 9.7 Immature Gran % 0.6 Neutrophils % 58.3 Lymphocytes % 33.7 Monocytes % 6.0 Eosinophils % 1.2 Basophils % 0.2 Absolute Neutrophils (1.2-6.7) k/cumm 4.78 Absolute Lymphocytes (1.2-3.4) k/cumm 2.77 Absolute Monocytes (0.11-0.7) k/cumm 0.49 Absolute Eosinophils (0.0-0.7) k/cumm 0.10 Absolute Basophils (0.0-0.2) k/cumm 0.02 Sodium (136-145) mmol/L 139 Potassium (3.5-5.1) mmol/L 3.7 Chloride (98-107) mmol/L 102 Carbon Dioxide (21.0-32.0) mmol/L 28.2 Anion Gap (3-11) mmol/L 8.8 BUN (7-18) mg/dL 15 Creatinine (0.55-1.02) mg/dL 0.75 Estimated GFR/1.73 m2 (mL/min/1.73m2) >= 60.00 Glucose (70-100) mg/dL 157 H Calcium (8.5-10.1) mg/dL 8.7 Total Bilirubin (0.2-1.0) mg/dL 0.4 AST (15-37) U/L 19 ALT (12-78) U/L 30 Alkaline Phosphatase (46-116) U/L 118 H Total Protein (6.4-8.2) g/dL 7.0 Albumin (3.4-5.0) g/dL 3.8 Ethyl Alcohol (<3) mg/dL < 3.0 HPI General Mode of arrival: EMS. Date/Time Provider Initiated Documentation: 04/05/18 10:07. Limitations to Documentation: no limitations. Information obtained by: patient and EMS. History of Present Illness 57 year old F presents to the emergency department with the chief complaint of Left foot pain, described as moderate, Quality is described as aching, and is localized to the left and lower extremity. Patient started experiencing this minute(s) and it has been constant. No relieving factors improve symptom(s), Movement worsens symptoms . Patient notes other (Left knee pain). HPI Narrative: Fall and left foot pain Related Data Home Medications Medication Instructions Recorded Confirmed citalopram 40 mg PO QAM 08/31/12 03/16/18 fluticasone-salmeterol [Advair 1 ea INHALATION BID 08/31/12 03/16/18 Diskus] gabapentin 800 mg PO TID 08/31/12 03/16/18 levothyroxine 50 mcg PO DAILY@0730 08/31/12 03/16/18 pravastatin 80 mg PO QPM 08/31/12 03/16/18 tiotropium bromide [Spiriva with 1 puff QAM 08/31/12 03/16/18 HandiHaler] albuterol sulfate [ProAir HFA] 1 - 2 puff INHALATION Q6H PRN 05/04/14 03/16/18 inhaler carvedilol [Coreg] 6.25 mg PO BID tab-cap 05/04/14 03/16/18 levalbuterol tartrate [Xopenex HFA] 45 mcg INHALATION Q4H PRN inhaler 05/04/14 03/16/18 loratadine 10 mg PO DAILY 05/04/14 03/16/18 omeprazole 20 mg PO DAILY 04/26/16 03/16/18 cyanocobalamin (vitamin B-12) 1,000 mcg PO DAILY 10/16/16 03/16/18 [Vitamin B-12] hydroxyzine HCl 50 mg PO BID 10/16/16 03/16/18 famotidine 20 mg PO DAILY 14 Days tab 12/18/16 03/16/18 docusate sodium [Colace] 100 mg PO BID PRN #30 cap 02/20/17 03/16/18 ropinirole 0.25 mg PO BID 06/27/17 03/16/18 clopidogrel [Plavix] 75 mg PO DAILY 12/24/17 03/16/18 insulin aspart U-100 [Novolog 12/24/17 Flexpen U-100 Insulin] lorazepam 0.5 mg PO TID PRN 12/24/17 03/16/18 colchicine 1 tab PO DAILY 03/16/18 03/16/18 Previous Rx's Medication Instructions Recorded famotidine 20 mg PO DAILY 14 Days tab 12/18/16 docusate sodium [Colace] 100 mg PO BID PRN #30 cap 02/20/17 Allergies Allergy/AdvReac Type Severity Reaction Status Date / Time amoxicillin trihydrate Allergy rash/gi Unverified 03/16/18 19:44 [From Augmentin] upset bacitracin Allergy Skin Rash Unverified 03/16/18 19:44 [From Neosporin ([id number])] bacitracin zinc Allergy Skin Rash Unverified 03/16/18 19:44 [From Neosporin ([id number])] neomycin sulfate Allergy Skin Rash Unverified 03/16/18 19:44 [From Neosporin ([id number])] polymyxin B Allergy Skin Rash Unverified 03/16/18 19:44 [From Neosporin ([id number])] potassium clavulanate Allergy rash/gi Unverified 03/16/18 19:44 [From Augmentin] upset aspirin AdvReac Nausea Unverified 03/16/18 19:44 lactose AdvReac gi upset Unverified 03/16/18 19:44 General Stated Complaint: Orthopedic ALLYSON: 4 Review of Systems Review of Systems 8 systems reviewed and otherwise negative [facility] Social History Smoking/Tobacco Use Status: Current every day Exam Narrative Exam Narrative: GEN: awake, alert, oriented 3. Pleasant, well groomed, interactive. HEAD: Normocephalic, atraumatic ENT: Mucous membranes moist, oropharynx unremarkable, External ear exam unremarkable EYES: PERRL, EOMI NECK: Full ROM, no CHIQUI, no menigismus CHEST/RESP: Nontender, clear to auscultation bilateral, no wheeze/rhonchi/rales CARDIOVASCULAR: RRR, no murmur, rub avel. 2+ Rad pulse bilateral ABDOMEN: Soft, nontender, no mass. +Bowel sounds. Minimal tenderness of sacrum on EXT: Right lower extremity with pre-standing walking boot at ankle/foot. full ROM, tender throughout the left lower extremity from knee to ankle without focality. Tenderness is most pronounced at the left talofibular ligament and on the dorsum of the foot. Moves both extremities voluntarily. Neuro: Grossly normal neurologic exam, conversant, interactive. Psych: Speech fluent, thoughts congruent, affect flat Course Vital Signs Temperature 36.9 C 04/05/18 10:10 Pulse 75 04/05/18 10:10 Respiratory Rate 16 04/05/18 10:10 Blood Pressure 138/80 04/05/18 10:10 Pulse Oximetry 96 04/05/18 10:10 Temperature 36.9 C 04/05/18 10:15 Temperature Source Temporal Artery Scan 04/05/18 10:15 Pulse 72 04/05/18 10:15 Respiratory Rate 16 04/05/18 10:15 Respiratory Effort 04/05/18 10:16 Blood Pressure 148/80 H 04/05/18 10:15 Blood Pressure Position Supine 04/05/18 10:15 Pulse Oximetry 97 04/05/18 10:15 Oxygen Delivery Method Room Air 04/05/18 10:15 Oxygen Flow Rate 0 04/05/18 10:15 Pain Level 9 04/05/18 10:15 Lab/Test Results Lab/Test Results: Laboratory Tests Range/Units 04/05/18 10:30 WBC (4.4-10.8) k/cumm 8.21 RBC (4.00-5.20) m/cumm 4.44 Hgb (12.0-15.5) g/dL 13.6 Hct (36.0-46.0) % 39.7 MCV (80-95) fL 89.4 MCH (27.0-33.0) pg 30.6 MCHC (32.0-36.0) g/dL 34.3 RDW (11.7-14.6) % 13.8 Plt Count (130-400) x1000/uL 121 L MPV (8.0-11.0) fL 9.7 Immature Gran % 0.6 Neutrophils % 58.3 Lymphocytes % 33.7 Monocytes % 6.0 Eosinophils % 1.2 Basophils % 0.2 Absolute Neutrophils (1.2-6.7) k/cumm 4.78 Absolute Lymphocytes (1.2-3.4) k/cumm 2.77 Absolute Monocytes (0.11-0.7) k/cumm 0.49 Absolute Eosinophils (0.0-0.7) k/cumm 0.10 Absolute Basophils (0.0-0.2) k/cumm 0.02
[2018-04-05 10:49] LABS: ALT 30 U/L (12-78); AST 19 U/L (15-37); Albumin 3.8 g/dL (3.4-5.0); Alkaline Phosphatase 118 U/L (46-116); Anion Gap 8.8 mmol/L (3-11); BUN 15 mg/dL (7-18); Bilirubin, Total 0.4 mg/dL (0.2-1.0); CO2 28.2 mmol/L (21.0-32.0); CREATININE 0.75 mg/dL (0.55-1.02); Calcium 8.7 mg/dL (8.5-10.1); Chloride 102 mmol/L (98-107); Glucose 157 mg/dL (70-100); Potassium 3.7 mmol/L (3.5-5.1); Sodium 139 mmol/L (136-145)
--- NOTE | 2018-04-05 10:51 | ED.GENADUL_ITS ---
Discharge Plan Disposition Patient Disposition: HOME Condition: Improving Discharge Details Chief Complaint: Orthopedic Clinical Impression: Left ankle sprain Primary Care Provider: Mehul Valladares ED Provider: Gilberto Valencia Home Meds and New Rx's Prescriptions: Continued loratadine 10 MG tablet,disintegrating 10 mg PO DAILY RF: 0 carvedilol [Coreg] 3.125 MG tablet 6.25 mg PO BID RF: 0 albuterol sulfate [ProAir HFA] 8.5 GM HFA aerosol inhaler 1 - 2 puff Inhalation Q6H PRN RF: 0 levalbuterol tartrate [Xopenex HFA] 15 GM HFA aerosol inhaler 45 mcg Inhalation Q4H PRN RF: 0 fluticasone-salmeterol [Advair Diskus] 1 EACH blister with device 1 ea Inhalation BID RF: 0 tiotropium bromide [Spiriva with HandiHaler] 1 PUFF capsule, w/inhalation device 1 puff QAM RF: 0 citalopram 20 MG tablet 40 mg PO QAM RF: 0 levothyroxine 50 MCG tablet 50 mcg PO DAILY@0730 RF: 0 gabapentin 300 MG capsule 800 mg PO TID RF: 0 pravastatin 20 MG tablet 80 mg PO QPM RF: 0 omeprazole 40 MG capsule,delayed release(DR/EC) 20 mg PO DAILY RF: 0 cyanocobalamin (vitamin B-12) [Vitamin B-12] 1,000 MCG tablet 1,000 mcg PO DAILY RF: 0 hydroxyzine HCl 25 MG tablet 50 mg PO BID RF: 0 famotidine 20 MG tablet 20 mg PO DAILY 14 Days RF: 0 docusate sodium [Colace] 100 MG capsule 100 mg PO BID PRNQty: 30 RF: 0 ropinirole 0.25 MG tablet 0.25 mg PO BID RF: 0 clopidogrel [Plavix] 75 mg Tablet 75 mg PO DAILY RF: 0 lorazepam 0.5 mg Tablet 0.5 mg PO TID PRNRF: 0 insulin aspart U-100 [Novolog Flexpen U-100 Insulin] 100 unit/mL Insulin Pen RF: 0 colchicine 0.6 mg Tablet 1 tab PO DAILY RF: 0 Discharge Instructions Instructions: Ankle Sprain (ED) Additional Instructions: Please wear walking boot 3-7 days time with partial weightbearing as needed for pain and discomfort. Elevate above level of the heart and apply ice to reduce pain and swelling. Follow-up with regular doctor if not improving in 5 days time. Continue all regular medications. Medical Decision Making 57-year-old female with a history of alcohol abuse, mood disorder who presents with fall after slipping on ice on a sidewalk. She is not a particularly good historian. She relates pain primarily at the left foot but also knee and pelvis. Screening head CT, radiographs, laboratories obtained. Diagnostics reveal unremarkable radiographs of the left knee, foot, pelvis. CT scan of the head unremarkable for acute process. Laboratories without a significant acute finding. Patient improved with parenteral analgesia. She wears intermittently a right lower extremity walking boot but states that it is not required, is more for comfort. Today, her presentation is most consistent with left foot and ankle sprain. She is placed in an equalizer walking boot, she does have a home wheeled walker and will be discharged with her daughter to her house in [place], [place] Lab Data Lab results reviewed: Yes I reviewed the patient's lab results. Laboratory Tests Range/Units 04/05/18 04/05/18 10:30 10:30 WBC (4.4-10.8) k/cumm 8.21 RBC (4.00-5.20) m/cumm 4.44 Hgb (12.0-15.5) g/dL 13.6 Hct (36.0-46.0) % 39.7 MCV (80-95) fL 89.4 MCH (27.0-33.0) pg 30.6 MCHC (32.0-36.0) g/dL 34.3 RDW (11.7-14.6) % 13.8 Plt Count (130-400) x1000/uL 121 L MPV (8.0-11.0) fL 9.7 Immature Gran % 0.6 Neutrophils % 58.3 Lymphocytes % 33.7 Monocytes % 6.0 Eosinophils % 1.2 Basophils % 0.2 Absolute Neutrophils (1.2-6.7) k/cumm 4.78 Absolute Lymphocytes (1.2-3.4) k/cumm 2.77 Absolute Monocytes (0.11-0.7) k/cumm 0.49 Absolute Eosinophils (0.0-0.7) k/cumm 0.10 Absolute Basophils (0.0-0.2) k/cumm 0.02 Sodium (136-145) mmol/L 139 Potassium (3.5-5.1) mmol/L 3.7 Chloride (98-107) mmol/L 102 Carbon Dioxide (21.0-32.0) mmol/L 28.2 Anion Gap (3-11) mmol/L 8.8 BUN (7-18) mg/dL 15 Creatinine (0.55-1.02) mg/dL 0.75 Estimated GFR/1.73 m2 (mL/min/1.73m2) >= 60.00 Glucose (70-100) mg/dL 157 H Calcium (8.5-10.1) mg/dL 8.7 Total Bilirubin (0.2-1.0) mg/dL 0.4 AST (15-37) U/L 19 ALT (12-78) U/L 30 Alkaline Phosphatase (46-116) U/L 118 H Total Protein (6.4-8.2) g/dL 7.0 Albumin (3.4-5.0) g/dL 3.8 Ethyl Alcohol (<3) mg/dL < 3.0 HPI General Mode of arrival: EMS . Date/Time Provider Initiated Documentation: 04/05/18 10:07 . Limitations to Documentation: no limitations . Information obtained by: patient and EMS . History of Present Illness 57 year old F presents to the emergency department with the chief complaint of Left foot pain, described as moderate, Quality is described as aching, and is localized to the left and lower extremity. Patient started experiencing this minute(s) and it has been constant. No relieving factors improve symptom(s), Movement worsens symptoms . Patient notes other (Left knee pain). HPI Narrative: Fall and left foot pain Related Data Home Medications Medication Instructions Recorded Confirmed citalopram 40 mg PO QAM 08/31/12 03/16/18 fluticasone-salmeterol [Advair 1 ea INHALATION BID 08/31/12 03/16/18 Diskus] gabapentin 800 mg PO TID 08/31/12 03/16/18 levothyroxine 50 mcg PO DAILY@0730 08/31/12 03/16/18 pravastatin 80 mg PO QPM 08/31/12 03/16/18 tiotropium bromide [Spiriva with 1 puff QAM 08/31/12 03/16/18 HandiHaler] albuterol sulfate [ProAir HFA] 1 - 2 puff INHALATION Q6H PRN 05/04/14 03/16/18 inhaler carvedilol [Coreg] 6.25 mg PO BID tab-cap 05/04/14 03/16/18 levalbuterol tartrate [Xopenex HFA] 45 mcg INHALATION Q4H PRN inhaler 05/04/14 03/16/18 loratadine 10 mg PO DAILY 05/04/14 03/16/18 omeprazole 20 mg PO DAILY 04/26/16 03/16/18 cyanocobalamin (vitamin B-12) 1,000 mcg PO DAILY 10/16/16 03/16/18 [Vitamin B-12] hydroxyzine HCl 50 mg PO BID 10/16/16 03/16/18 famotidine 20 mg PO DAILY 14 Days tab 12/18/16 03/16/18 docusate sodium [Colace] 100 mg PO BID PRN #30 cap 02/20/17 03/16/18 ropinirole 0.25 mg PO BID 06/27/17 03/16/18 clopidogrel [Plavix] 75 mg PO DAILY 12/24/17 03/16/18 insulin aspart U-100 [Novolog 12/24/17 Flexpen U-100 Insulin] lorazepam 0.5 mg PO TID PRN 12/24/17 03/16/18 colchicine 1 tab PO DAILY 03/16/18 03/16/18 Previous Rx's Medication Instructions Recorded famotidine 20 mg PO DAILY 14 Days tab 12/18/16 docusate sodium [Colace] 100 mg PO BID PRN #30 cap 02/20/17 Allergies Allergy/AdvReac Type Severity Reaction Status Date / Time amoxicillin trihydrate Allergy rash/gi Unverified 03/16/18 19:44 [From Augmentin] upset bacitracin Allergy Skin Rash Unverified 03/16/18 19:44 [From Neosporin ([id number])] bacitracin zinc Allergy Skin Rash Unverified 03/16/18 19:44 [From Neosporin ([id number])] neomycin sulfate Allergy Skin Rash Unverified 03/16/18 19:44 [From Neosporin ([id number])] polymyxin B Allergy Skin Rash Unverified 03/16/18 19:44 [From Neosporin ([id number])] potassium clavulanate Allergy rash/gi Unverified 03/16/18 19:44 [From Augmentin] upset aspirin AdvReac Nausea Unverified 03/16/18 19:44 lactose AdvReac gi upset Unverified 03/16/18 19:44 General Stated Complaint: Orthopedic ALLYSON: 4 Review of Systems Review of Systems 8 systems reviewed and otherwise negative [facility] Social History Smoking/Tobacco Use Status: Current every day Exam Narrative Exam Narrative: GEN: awake, alert, oriented 3. Pleasant, well groomed, interactive. HEAD: Normocephalic, atraumatic ENT: Mucous membranes moist, oropharynx unremarkable, External ear exam unremarkable EYES: PERRL, EOMI NECK: Full ROM, no CHIQUI, no menigismus CHEST/RESP: Nontender, clear to auscultation bilateral, no wheeze/rhonchi/rales CARDIOVASCULAR: RRR, no murmur, rub avel. 2+ Rad pulse bilateral ABDOMEN: Soft, nontender, no mass. +Bowel sounds. Minimal tenderness of sacrum on EXT: Right lower extremity with pre-standing walking boot at ankle/foot. full ROM, tender throughout the left lower extremity from knee to ankle without focality. Tenderness is most pronounced at the left talofibular ligament and on the dorsum of the foot. Moves both extremities voluntarily. Neuro: Grossly normal neurologic exam, conversant, interactive. Psych: Speech fluent, thoughts congruent, affect flat Course Vital Signs Temperature 36.9 C 04/05/18 10:10 Pulse 75 04/05/18 10:10 Respiratory Rate 16 04/05/18 10:10 Blood Pressure 138/80 04/05/18 10:10 Pulse Oximetry 96 04/05/18 10:10 Temperature 36.9 C 04/05/18 10:15 Temperature Source Temporal Artery Scan 04/05/18 10:15 Pulse 72 04/05/18 10:15 Respiratory Rate 16 04/05/18 10:15 Respiratory Effort 04/05/18 10:16 Blood Pressure 148/80 H 04/05/18 10:15 Blood Pressure Position Supine 04/05/18 10:15 Pulse Oximetry 97 04/05/18 10:15 Oxygen Delivery Method Room Air 04/05/18 10:15 Oxygen Flow Rate 0 04/05/18 10:15 Pain Level 9 04/05/18 10:15 Lab/Test Results Lab/Test Results: Laboratory Tests Range/Units 04/05/18 10:30 WBC (4.4-10.8) k/cumm 8.21 RBC (4.00-5.20) m/cumm 4.44 Hgb (12.0-15.5) g/dL 13.6 Hct (36.0-46.0) % 39.7 MCV (80-95) fL 89.4 MCH (27.0-33.0) pg 30.6 MCHC (32.0-36.0) g/dL 34.3 RDW (11.7-14.6) % 13.8 Plt Count (130-400) x1000/uL 121 L MPV (8.0-11.0) fL 9.7 Immature Gran % 0.6 Neutrophils % 58.3 Lymphocytes % 33.7 Monocytes % 6.0 Eosinophils % 1.2 Basophils % 0.2 Absolute Neutrophils (1.2-6.7) k/cumm 4.78 Absolute Lymphocytes (1.2-3.4) k/cumm 2.77 Absolute Monocytes (0.11-0.7) k/cumm 0.49 Absolute Eosinophils (0.0-0.7) k/cumm 0.10 Absolute Basophils (0.0-0.2) k/cumm 0.02
[2018-04-05 10:58] LABS: ETHANOL BLOOD < 3.0 mg/dL (<3)
--- NOTE | 2018-04-05 11:14 | DI.VRAD_ITS ---
EXAM: CT Head Without Contrast EXAM DATE/TIME: 04/05/2018 10:18 AM CLINICAL HISTORY: 57 years old, female; Pain; Patient HX: Fall HX alcohol abuse lt sided pain TECHNIQUE: Axial computed tomography images of the head/brain without contrast. Coronal and sagittal reformatted images were created and reviewed. COMPARISON: CT HEAD WITHOUT STROKE PROTOCOL 06/27/2017 2:14 AM FINDINGS: Brain: No acute intracranial hemorrhage. There is mild diffuse heterogeneity of the white matter attenuation, consistent with chronic white matter ischemic changes. Mild cerebral atrophy Ventricles: Normal. No ventriculomegaly. Bones/joints: Normal. No acute fracture. Sinuses: There is nonspecific fluid within the ethmoid sinuses. Mastoid air cells: Normal as visualized. No mastoid effusion. Soft tissues: Normal. IMPRESSION: No acute intracranial hemorrhage. Dictated and Authenticated by: Esau Issa MD. Ordering:BEVERLY Macias MD
--- NOTE | 2018-04-05 11:15 | DI.VRAD_ITS ---
EXAM: XR Pelvis, 1 or 2 Views EXAM DATE/TIME: 04/05/2018 10:59 AM CLINICAL HISTORY: 57 years old, female; Pain; Other: Fall lt pain TECHNIQUE: XR pelvis, 1 or 2 views COMPARISON: CR RT HIP COMPLETE AP PELVIS 10/16/2016 3:44 AM FINDINGS: Bones/joints: Normal. No acute fracture. There is no evidence of malalignment or dislocation. Soft tissues: Normal. IMPRESSION: No acute findings. Dictated and Authenticated by: Esau Issa MD. Ordering:BEVERLY Macias MD
--- NOTE | 2018-04-05 11:16 | DI.VRAD_ITS ---
EXAM: XR Left Foot Complete, 3 or more Views EXAM DATE/TIME: 04/05/2018 10:18 AM CLINICAL HISTORY: 57 years old, female; Pain; Foot; Left; Patient HX: Fall lt sided pain TECHNIQUE: XR Left foot 3 or more views. COMPARISON: CR LEFT FOOT COMPLETE 07/12/2016 1:01 AM FINDINGS: Bones/joints: Osteopenia There is no evidence of acute fracture. There is no evidence of malalignment or dislocation. Soft tissues: Normal. IMPRESSION: There is no evidence of acute fracture. Dictated and Authenticated by: Esau Issa MD. Ordering:BEVERLY aMcias MD
--- NOTE | 2018-04-05 11:19 | DI.VRAD_ITS ---
EXAM: XR Left Knee, 3 Views EXAM DATE/TIME: 04/05/2018 10:18 AM CLINICAL HISTORY: 57 years old, female; Pain; Knee; Left; Patient HX: Fall lt sided pain TECHNIQUE: XR Left knee 3 views. COMPARISON: CR LEFT KNEE 3 VIEW COMPLETE 12/24/2016 10:52 AM FINDINGS: Bones/joints: There is joint space narrowing in the lateral department of the knee that was not present one year ago. Moderate suprapatellar joint effusion. No definite fracture identified Soft tissues: Soft tissue swelling of the knee IMPRESSION: 1. There is joint space narrowing in the lateral department of the knee that was not present one year ago. 2. Moderate suprapatellar joint effusion. Consider CT to rule out occult fracture Dictated and Authenticated by: Esau Issa MD. Ordering:BEVERLY Macias MD
[2018-04-05] MEDS: Ketorolac 30 MG/ML VIAL 15 MG IVP (11:25)
--- NOTE | 2018-04-05 11:42 | NUR.NOTE ---
Pt. taken to restroom, stood up independently, used cane to transfer to wheelchair. Used cane and bar in bathroom to transfer independently to toilet. Pt. tolerated well.
[2018-04-05 11:50] VITALS: BP 134/76; PULSE 64; RESP 14; TEMP 36.9; O2SAT 95
== END 2018-04-05 12:17 | disposition home or self-care (01) ==
PROVIDERS: Emergency Provider Emergency Medicine; PCP Internal Medicine
DX: S93.402A Sprain of unspecified ligament of left ankle, initial encounter (principal); M25.562 Pain in left knee; M53.3 Sacrococcygeal disorders, not elsewhere classified; W00.0XXA Fall on same level due to ice and snow, initial encounter; R51 Headache; E11.9 Type 2 diabetes mellitus without complications; Z79.4 Long term (current) use of insulin; I10 Essential (primary) hypertension
CPT/HCPCS: 36415; 73562; 80053; 96374; 96375; 99284; 70450; 72170; 73630; 80320; 85025; J1885; L4361

== ENCOUNTER 2018-04-16 09:25 | Emergency (ER) | payer MEDICAID, SELFPAY ==
[2018-04-16] VITALS (7 sets, daily range): BP systolic 116–144; BP diastolic 67–127; PULSE 71–87; RESP 13–21; TEMP 36.2–36.5; O2SAT 94–98
--- NOTE | 2018-04-16 09:53 | DI.CT_ITS ---
SYMPTOMS/DIAGNOSIS: TRAUMA, TENDER TO PALPATION RUQ, NECK PAIN CT BRAIN: Noncontrast examination. No intracranial hemorrhage, acute midline shift or mass effect is identified. There is a normal amador/white matter differentiation. The ventricles are intact. The basilar cisterns are patent. The visualized paranasal sinuses are clear. The mastoid air cells are well pneumatized. No calvarial fracture is identified. IMPRESSION: No acute intracranial process. CT SCAN OF THE CERVICAL SPINE: Multiple contiguous axial images of the cervical spine were obtained. Sagittal and coronal reformatted images were evaluated on the Siemens workstation. There is some image degradation due to patient motion. There is normal alignment of the cervical spine. No acute fractures or subluxations are seen. The prevertebral soft tissues are unremarkable. Mild degenerative changes are seen in the cervical spine. IMPRESSION: No acute fractures or subluxations in the cervical spine. CT SCAN OF THE ABDOMEN AND PELVIS: Comparison is 06/27/17. No acute findings are seen in the lung bases. The liver has a lobulated contour suspicious for hepatic cirrhosis. No evidence of a hepatic mass or laceration is seen. The portal and superior mesenteric veins are patent. The patient is status post cholecystectomy. No biliary ductal dilatation is present. There are varices in the upper abdomen. The pancreas is unremarkable. The spleen is enlarged. The adrenal glands are unremarkable. The kidneys show normal and symmetric enhancement. No solid renal mass or obstruction is identified. The urinary bladder is intact. The reproductive organs are grossly unremarkable as visualized. The bowel shows no evidence of obstruction or inflammation. No findings to suggest an acute appendicitis are present. No significant abdominal or pelvic adenopathy or ascites is seen. There is a small fat containing anterior abdominal wall hernia in the supraumbilical region. No fracture is identified. IMPRESSION: No evidence of an acute abdominal or pelvic injury. The findings were discussed with the emergency department on the date of the examination.
--- NOTE | 2018-04-16 09:58 | DI.RAD_ITS ---
SYMPTOMS/DIAGNOSIS: PAIN RIGHT KNEE: Three views. No acute fracture or dislocation is identified.
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
[2018-04-16] MEDS: Normal Saline Flush 10 ML SYR IVP (10:00)
[2018-04-16 10:18] LABS: Abs Immature Grans 0.03 k/cumm (0.0-0.09); Absolute Basophil Count 0.02 k/cumm (0.0-0.2); Absolute Eosinophil Count 0.16 k/cumm (0.0-0.7); Absolute Lymphocyte Count 2.67 k/cumm (1.2-3.4); Absolute Monocyte Count 0.62 k/cumm (0.11-0.7); Basophils % 0.2; Eosinophils % 1.9; HCT 42.2 % (36.0-46.0); HGB 14.2 g/dL (12.0-15.5); Immature Grans % 0.4; Lymphocytes % 31.4; Mean Corp. HGB Concentration 33.6 g/dL (32.0-36.0); Mean Corpuscular Hemoglobin 29.9 pg (27.0-33.0); Mean Corpuscular Volume 88.8 fL (80-95); Mean Platelet Volume 9.6 fL (8.0-11.0); Monocytes % 7.3; Neutrophils % 58.8; Platelet Count 134 x1000/uL (130-400); RBC 4.75 m/cumm (4.00-5.20); RBC Distribution Width 14.2 % (11.7-14.6)
[2018-04-16 10:44] LABS: ALT 26 U/L (12-78); AST 18 U/L (15-37); Alkaline Phosphatase 107 U/L (46-116); Anion Gap 10.1 mmol/L (3-11); BUN 13 mg/dL (7-18); Bilirubin, Total 0.5 mg/dL (0.2-1.0); CO2 26.9 mmol/L (21.0-32.0); CREATININE 0.77 mg/dL (0.55-1.02); Calcium 9.4 mg/dL (8.5-10.1); Chloride 103 mmol/L (98-107); Glucose 112 mg/dL (70-100); Sodium 140 mmol/L (136-145); Total Protein 7.7 g/dL (6.4-8.2)
[2018-04-16] MEDS: Omnipaque 350 MG/ML 100 ML BTL IJ (11:00)
== END 2018-04-16 13:04 | disposition home or self-care (01) ==
PROVIDERS: Emergency Provider Student in an Organized Health Care Education/Training Program; PCP Internal Medicine
DX: S06.0X0A Concussion without loss of consciousness, initial encounter (principal); M54.2 Cervicalgia; S80.01XA Contusion of right knee, initial encounter; R10.9 Unspecified abdominal pain; V43.12XA Car passenger injured in collision with other type car in nontraffic accident, initial encounter
CPT/HCPCS: 36415; 73562; 80053; 86850; 86900; 86901; 99285; 70450; 72125; 74177; 85025; 99284; J3490; L0172

== ENCOUNTER 2018-04-20 12:13 | Emergency (ER) | payer MEDICAID, SELFPAY ==
[2018-04-20] VITALS (27 sets, daily range): BP systolic 110–174; BP diastolic 70–99; PULSE 66–89; RESP 14–25; TEMP 37; O2SAT 92–98
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
[2018-04-20 13:05] LABS: HCT 41.3 % (36.0-46.0); HGB 13.9 g/dL (12.0-15.5); Mean Corp. HGB Concentration 33.7 g/dL (32.0-36.0); Mean Corpuscular Volume 89.2 fL (80-95); Mean Platelet Volume 9.8 fL (8.0-11.0); Platelet Count 115 x1000/uL (130-400); RBC 4.63 m/cumm (4.00-5.20); RBC Distribution Width 13.9 % (11.7-14.6); White Blood Cell Count 6.46 k/cumm (4.4-10.8)
[2018-04-20 13:19] LABS: ALT 26 U/L (12-78); AST 19 U/L (15-37); Alkaline Phosphatase 119 U/L (46-116); BUN 11 mg/dL (7-18); Bilirubin, Total 0.4 mg/dL (0.2-1.0); CREATININE 0.88 mg/dL (0.55-1.02); Calcium 9.3 mg/dL (8.5-10.1); Chloride 103 mmol/L (98-107); Glucose 152 mg/dL (70-100); Potassium 3.5 mmol/L (3.5-5.1); Sodium 140 mmol/L (136-145); Total Protein 7.6 g/dL (6.4-8.2)
[2018-04-20 13:23] LABS: Troponin I < 0.02 ng/mL (0.00-0.06)
[2018-04-20] MEDS: Omnipaque 350 MG/ML 100 ML BTL 85 ML IV (13:59)
== END 2018-04-20 15:52 | disposition home or self-care (01) ==
PROVIDERS: Emergency Provider Student in an Organized Health Care Education/Training Program; PCP Internal Medicine
DX: R42 Dizziness and giddiness (principal); R51 Headache; M79.18 Myalgia, other site; M54.9 Dorsalgia, unspecified
CPT/HCPCS: 36415; 70498; 80053; 85027; 93005; 99285; 70450; 72128; 84484; 93010; J3490

== ENCOUNTER 2018-05-31 13:20 | Emergency (ER) | payer MEDICAID, SELFPAY ==
[2018-05-31 13:29] VITALS: BP 145/88; PULSE 104; RESP 16; TEMP 36.4; O2SAT 96
--- NOTE | 2018-05-31 15:31 | W.ED.GENAD ---
Discharge Plan Disposition Patient Disposition: HOME Condition: Stable Discharge Details Chief Complaint: RespSymp Clinical Impression: Acute streptococcal pharyngitis, Laryngitis Primary Care Provider: Grant Lindsey ED Provider: Elyse Poe Home Meds and New Rx's Prescriptions: Continued loratadine 10 MG tablet,disintegrating 10 mg PO DAILY RF: 0 carvedilol [Coreg] 3.125 MG tablet 6.25 mg PO BID RF: 0 ProAir HFA 8.5 GM HFA aerosol inhaler 1 - 2 puff Inhalation Q6H PRN RF: 0 Advair Diskus 1 EACH blister with device 1 ea Inhalation BID RF: 0 citalopram 20 MG tablet 40 mg PO QAM RF: 0 levothyroxine 50 MCG tablet 50 mcg PO DAILY@0730 RF: 0 gabapentin 300 MG capsule 800 mg PO TID RF: 0 cyanocobalamin (vitamin B-12) [Vitamin B-12] 1,000 MCG tablet 1,000 mcg PO DAILY RF: 0 hydroxyzine HCl 25 MG tablet 25 mg PO BID RF: 0 ropinirole 0.25 MG tablet 0.25 mg PO BID RF: 0 clopidogrel [Plavix] 75 mg Tablet 75 mg PO DAILY RF: 0 lorazepam 0.5 mg Tablet 0.5 mg PO TID PRNRF: 0 colchicine 0.6 mg Tablet 1 tab PO DAILY RF: 0 metformin 500 mg Tablet 500 mg PO BID RF: 0 pantoprazole 40 mg Tablet,Delayed Release (Dr/Ec) 40 mg PO BID RF: 0 Novolog Flexpen U-100 Insulin 100 unit/mL Insulin Pen 0 - 15 units subcut AC RF: 0 famotidine 20 MG tablet 20 mg PO HS RF: 0 Discharge Instructions Instructions: Pharyngitis (ED), Laryngitis (ED) Additional Instructions: Alternate Tylenol and Motrin as needed and directed for pain. Follow-up with your primary care doctor in 1 week for reevaluation. Return immediately to the emergency department any worsening or new concerning symptoms. Discharge Data Discharge Physician: Elyse Poe Medical Decision Making 57-year-old female who presents with sore throat, pain with swallowing, dry cough for the past 3 weeks. Treated with prednisone for bronchitis recently. Vitals within normal limits on my evaluation. Tachycardic on arrival, heart rate normal on my evaluation. Afebrile. Patient able to open mouth, no evidence of trismus, submandibular swelling or evidence of Luis's angina. No lymphadenopathy. Lungs clear to auscultation. No meningeal signs. She does have a hoarse voice suggestive of laryngitis. She has mild posterior pharyngeal erythema, but no evidence of tonsillar mass, exudates, and uvula is midline. Differential diagnosis includes strep pharyngitis, viral pharyngitis, URI, influenza. She has normal oxygen saturation, no complaints of shortness of breath, and normal lung exam, I do not see any indication for chest x-ray patient is agreeable. Will obtain rapid strep, rapid influenza, and give a dose of Decadron. 1620 --rapid strep positive. Influenza negative. Patient's chart notes a history of allergy to amoxicillin. Patient states this is from Augmentin causing GI upset. She states she has taken penicillin in the past and tolerated this without any adverse reaction. Patient offered p.o. antibiotics or Bicillin and she would prefer the Bicillin injection. Patient instructed to alternate Tylenol and Motrin, gargle with salt water, follow-up with a primary care doctor for reevaluation and return here anytime if worse. Medical Records Medical records reviewed: Yes I reviewed the patient's medical records. Lab Data Lab results reviewed: Yes I reviewed the patient's lab results. Rapid strep positive. Influenza a and B negative. HPI General Mode of arrival: ambulatory. Date/Time Provider Initiated Documentation: 05/31/18 14:11. Limitations to Documentation: no limitations. Information obtained by: patient. HPI Narrative: Pt is a 57yo F who presents to the ED w/ a c/o sore throat, and dry cough for the past 3 weeks. Patient states she has seen her primary care doctor for similar symptoms and diagnosed with bronchitis and treated with prednisone which she finished last week. She states she has alternating hot and cold chills, but unsure if she has a fever. She denies any shortness of breath, chest pain, vomiting, or diarrhea. She states she has been eating and drinking but states it is difficult due to pain with swallowing. She denies any recent antibiotics. She denies any headache or neck pain. Related Data Home Medications Medication Instructions Recorded Confirmed Advair Diskus 1 ea INHALATION BID 08/31/12 05/31/18 citalopram 40 mg PO QAM 08/31/12 04/20/18 gabapentin 800 mg PO TID 08/31/12 05/31/18 levothyroxine 50 mcg PO DAILY@0730 08/31/12 04/20/18 ProAir HFA 1 - 2 puff INHALATION Q6H PRN 05/04/14 05/31/18 inhaler carvedilol [Coreg] 6.25 mg PO BID tab-cap 05/04/14 05/31/18 loratadine 10 mg PO DAILY 05/04/14 05/31/18 cyanocobalamin (vitamin B-12) 1,000 mcg PO DAILY 10/16/16 05/31/18 [Vitamin B-12] hydroxyzine HCl 25 mg PO BID 10/16/16 04/20/18 ropinirole 0.25 mg PO BID 06/27/17 05/31/18 clopidogrel [Plavix] 75 mg PO DAILY 12/24/17 05/31/18 lorazepam 0.5 mg PO TID PRN 12/24/17 04/20/18 colchicine 1 tab PO DAILY 03/16/18 05/31/18 Novolog Flexpen U-100 Insulin 0 - 15 units SUBCUT AC 04/16/18 05/31/18 famotidine 20 mg PO HS 04/16/18 04/20/18 metformin 500 mg PO BID 04/16/18 05/31/18 pantoprazole 40 mg PO BID 04/16/18 05/31/18 Allergies Allergy/AdvReac Type Severity Reaction Status Date / Time amoxicillin trihydrate Allergy rash/gi Unverified 05/31/18 13:33 [From Augmentin] upset bacitracin Allergy Skin Rash Unverified 05/31/18 13:33 [From Neosporin ([id number])] bacitracin zinc Allergy Skin Rash Unverified 05/31/18 13:33 [From Neosporin ([id number])] neomycin sulfate Allergy Skin Rash Unverified 05/31/18 13:33 [From Neosporin ([id number])] polymyxin B Allergy Skin Rash Unverified 05/31/18 13:33 [From Neosporin ([id number])] potassium clavulanate Allergy rash/gi Unverified 05/31/18 13:33 [From Augmentin] upset aspirin AdvReac Nausea Unverified 05/31/18 13:33 lactose AdvReac gi upset Unverified 05/31/18 13:33 General Stated Complaint: RespSymp ALLYSON: 3 Review of Systems Review of Systems All systems reviewed & are unremarkable except as noted in HPI and below Constitutional Reports as per HPI, Denies chills and Denies fever(s) Eyes Denies blurry vision ENT Denies dizziness, Reports sore throat and Denies throat swelling Cardiovascular Denies chest pain and Denies dyspnea Respiratory Reports cough and Denies dyspnea Gastrointestinal Denies abdominal pain, Denies diarrhea and Denies vomiting Genitourinary Denies hematuria and Denies dysuria Musculoskeletal Denies back pain and Denies numbness Integumentary/Breasts Denies lesions and Denies rash Neurologic Denies dizziness, Denies focal weakness and Denies numbness Allergic/Immunologic Denies throat swelling [facility] Medical History Hyperlipemia (Acute) Anxiety (Chronic) Asthma (Chronic) Depression (Chronic) Diabetes (Chronic) GERD (gastroesophageal reflux disease) (Chronic) HTN (hypertension) (Chronic) Migraine (Chronic) Surgical History History of hysterectomy (Chronic) History of thyroidectomy (Chronic) Hx of cholecystectomy (Chronic) Social History Smoking and Tabacco status: Current every day alcohol intake: never substance use type: does not use Exam Const General: cooperative and healthy appearing Orientation: alert and awake [facility] Head: normal to inspection Ears: hearing grossly normal bilaterally, external ears normal and TM's normal bilaterally General nose exam: external nose normal Face and sinus: normal facial exam Mouth: oral mucosae normal, tongue normal, moist mucous membranes and other (No evidence of lesions or thrush noted to mucosa or palate ) Teeth and gingiva: dentition normal and dentures (removed and no evidence of thrush or lesions) Throat: tonsils normal, uvula midline and posterior oropharynx abnormal erythema (minimal); no edema and no exudates Eyes General: appearance normal, both eyes and all related structures Eyelids: eyelids normal EOM: EOM intact bilaterally Neck Neck: normal visual inspection Lymphatic: no lymphadenopathy noted Chest Chest: normal inspection of the chest Resp Effort & Inspection: normal respiratory effort and able to speak in complete sentences Auscultation: clear to auscultation bilaterally Cardio Rate: regular rate Rhythm: regular rhythm GI Inspection: normal to inspection Palpation: soft, not firm, no guarding, no hepatosplenomegaly, no masses and nontender Auscultation: normal bowel sounds Skin General skin exam: no rashes or lesions noted Neuro General: alert, awake, moves all extremities and no meningeal signs Cognition: normal cognition Speech: speech normal Gait: normal gait Motor: muscle tone normal throughout Sensory Exam: no sensory deficits noted Extrem General: normal to inspection, full ROM and normal capillary refill Psych Appearance: grossly normal Mental Status: mental status grossly normal Speech and Movement: speech and movement normal Affect: normal affect Thought Process: normal Course Vital Signs Temperature 97.5 F L 05/31/18 13:29 Pulse 104 H 05/31/18 13:29 Respiratory Rate 16 05/31/18 13:29 Blood Pressure 145/88 H 05/31/18 13:29 Pulse Oximetry 96 05/31/18 13:29 Temperature 97.5 F L 05/31/18 13:29 Temperature Source Temporal Artery Scan 05/31/18 13:29 Pulse 104 H 05/31/18 13:29 Respiratory Rate 16 05/31/18 13:29 Respiratory Effort 05/31/18 13:32 Blood Pressure 145/88 H 05/31/18 13:29 Blood Pressure Position Sitting 05/31/18 13:29 Pulse Oximetry 96 05/31/18 13:29 Oxygen Delivery Method Room Air 05/31/18 13:29 Oxygen Flow Rate 0 05/31/18 13:29 Pain Level 10 05/31/18 13:29
[2018-05-31] MEDS: Dexamethasone 10 MG/ML VIAL PO (15:50)
== END 2018-05-31 16:49 | disposition home or self-care (01) ==
PROVIDERS: Emergency Provider Physician Assistant; PCP Family Medicine
DX: J02.0 Streptococcal pharyngitis (principal); J04.0 Acute laryngitis; I10 Essential (primary) hypertension; E11.9 Type 2 diabetes mellitus without complications; Z79.84 Long term (current) use of oral hypoglycemic drugs
CPT/HCPCS: 87449; 87880; 96372; 99284; J0561; J1100

== ENCOUNTER 2018-07-11 10:41 | Emergency (ER) | payer MEDICAID, SELFPAY ==
--- NOTE | 2018-07-11 10:47 | NUR.NOTE ---
pt is poor historian. 3 days ago pt developed pain in her right shoulder with movement 11/21. this morning the pt noticed a bunch in her elbow it is difficult to figure out what this his however i believe she is describing a small bump on her inner elbow that is sore to touch
[2018-07-11 10:50] VITALS: BP 119/100; PULSE 88; RESP 16; TEMP 37.1; O2SAT 97
--- NOTE | 2018-07-11 11:32 | DI.RAD_ITS ---
SYMPTOM/DIAGNOSIS: FELL, PAIN RIGHT ELBOW: Three views were obtained. There is a large elbow joint effusion or hemarthrosis. Faint lucency of the radial head may represent prominent bony trabecula but in the setting of a large joint effusion, the findings are suspicious for radial head fracture. Follow up radiographs or CT recommended. CONCLUSION: Possible nondisplaced radial head fracture, appropriate follow up as described above. RIGHT SHOULDER: Five views were obtained. There is no evidence of a fracture or dislocation.
--- NOTE | 2018-07-11 11:34 | W.ED.GENAD ---
Discharge Plan Disposition Patient Disposition: HOME Condition: Stable Discharge Details Chief Complaint: Orthopedic Clinical Impression: Right radial head fracture, Right shoulder strain Primary Care Provider: Grant Lindsey ED Provider: Elyse Poe Home Meds and New Rx's Prescriptions: Continued loratadine 10 MG tablet,disintegrating 10 mg PO DAILY RF: 0 carvedilol [Coreg] 3.125 MG tablet 6.25 mg PO BID RF: 0 ProAir HFA 8.5 GM HFA aerosol inhaler 1 - 2 puff Inhalation Q6H PRN RF: 0 Advair Diskus 1 EACH blister with device 1 ea Inhalation BID RF: 0 citalopram 20 MG tablet 40 mg PO QAM RF: 0 levothyroxine 50 MCG tablet 50 mcg PO DAILY@0730 RF: 0 gabapentin 300 MG capsule 800 mg PO TID RF: 0 cyanocobalamin (vitamin B-12) [Vitamin B-12] 1,000 MCG tablet 1,000 mcg PO DAILY RF: 0 hydroxyzine HCl 25 MG tablet 25 mg PO BID RF: 0 ropinirole 0.25 MG tablet 0.25 mg PO BID RF: 0 clopidogrel [Plavix] 75 mg Tablet 75 mg PO DAILY RF: 0 lorazepam 0.5 mg Tablet 0.5 mg PO TID PRNRF: 0 colchicine 0.6 mg Tablet 1 tab PO DAILY RF: 0 metformin 500 mg Tablet 500 mg PO BID RF: 0 pantoprazole 40 mg Tablet,Delayed Release (Dr/Ec) 40 mg PO BID RF: 0 Novolog Flexpen U-100 Insulin 100 unit/mL Insulin Pen 0 - 15 units subcut AC RF: 0 famotidine 20 MG tablet 20 mg PO HS RF: 0 Discharge Instructions Instructions: Arm Fracture in Adults (ED), Shoulder Sprain (ED) Additional Instructions: Apply ice to the affected area several times daily for 20 minutes at a time. Take Tylenol as needed and directed for pain. Call orthopedics on Friday to schedule a follow-up appointment for reevaluation. Return immediately to the emergency department with any worsening or new concerning symptoms. Referrals: Gilberto Laird MD [ [facility] STAFF PHYSICIAN] - Discharge Data Discharge Physician: Elyse Poe Medical Decision Making 57-year-old female who presents with right shoulder and right elbow pain for the past 10 days. Patient has been shoveling and also fell hitting her right shoulder and elbow against a wall. Limitation of motion in right shoulder due to pain. Also admits to a bunch in her right medial elbow that is tender to palpation. Vitals within normal limits. She has limitation of full abduction and flexion due to pain in right shoulder. She has a very minimal 2 x 2 centimeter area of swelling and tenderness just above medial elbow. There is no evidence of infection or obvious trauma. There is no deformity. She was neurovascularly intact. Discussed with patient that her symptoms could be due to strain versus sprain. Will obtain a shoulder and elbow x-ray. Will give a dose of Tylenol. She is on aspirin and Plavix so will hold on NSAIDs at this time. 1310 --x-rays reviewed and note a normal shoulder x-ray and the right elbow x-ray notes anterior and posterior joint effusions as well as a lucency through the radial head which may represent a nondisplaced radial head fracture. On reassessment of arm, patient does have some tenderness to palpation near the radial head. There is no deformity. She is neurovascular intact. Unsure if this is an acute fracture, but will treat as such. Will call orthopedics but likely patient can be placed in a sling. 1325 --X-rays discussed with Dr. Laird -agrees with plan for sling and range of motion as tolerated. Patient can follow-up in the office in the next 1-2 weeks. Patient instructed to rest, ice, elevate, take Tylenol as needed and directed for pain. Medical Records Medical records reviewed: Yes I reviewed the patient's medical records. Imaging Data Radiologic Study: Radiologist's impression: XR Right Shoulder, Complete, 2 or More Views EXAM DATE/TIME: 07/11/2018 11:34 AM FINDINGS: Bones/joints: Mild degenerative changes in glenohumeral joint and acromioclavicular joint. There is no evidence of acute fracture.. There is no evidence of malalignment or dislocation. Soft tissues: Normal. IMPRESSION: 1. There is no evidence of acute fracture.. 2. There is no evidence of malalignment or dislocation. XR Right Elbow Complete, 3 or more Views EXAM DATE/TIME: 07/11/2018 11:34 AM FINDINGS: Bones/joints: Degenerative changes in the humeral ulnar joint Anterior and posterior joint effusions. Lucency through the radial head may represent a nondisplaced radial head fracture. Soft tissues: Normal. IMPRESSION: 1. Anterior and posterior joint effusions. 2. Lucency through the radial head may represent a nondisplaced radial head fracture. HPI General Mode of arrival: ambulatory. Date/Time Provider Initiated Documentation: 07/11/18 10:46. Limitations to Documentation: no limitations. Information obtained by: patient. HPI Narrative: Patient is a 57-year-old female who presents with a right shoulder and right elbow pain. Patient states she has had the symptoms for the past 10 days. She states she was shoveling snow outside and also slipped and fell hitting her right shoulder and elbow against a wall at home. She states the pain in her right shoulder is worse with range of motion and she has difficulty lifting her arm above her head. She also states she has a bunch on her inner upper arm near her elbow which is tender to palpation. Related Data Home Medications Medication Instructions Recorded Confirmed Advair Diskus 1 ea INHALATION BID 08/31/12 05/31/18 citalopram 40 mg PO QAM 08/31/12 04/20/18 gabapentin 800 mg PO TID 08/31/12 05/31/18 levothyroxine 50 mcg PO DAILY@0730 08/31/12 04/20/18 ProAir HFA 1 - 2 puff INHALATION Q6H PRN 05/04/14 05/31/18 inhaler carvedilol [Coreg] 6.25 mg PO BID tab-cap 05/04/14 05/31/18 loratadine 10 mg PO DAILY 05/04/14 05/31/18 cyanocobalamin (vitamin B-12) 1,000 mcg PO DAILY 10/16/16 05/31/18 [Vitamin B-12] hydroxyzine HCl 25 mg PO BID 10/16/16 04/20/18 ropinirole 0.25 mg PO BID 06/27/17 05/31/18 clopidogrel [Plavix] 75 mg PO DAILY 12/24/17 05/31/18 lorazepam 0.5 mg PO TID PRN 12/24/17 04/20/18 colchicine 1 tab PO DAILY 03/16/18 05/31/18 Novolog Flexpen U-100 Insulin 0 - 15 units SUBCUT AC 04/16/18 05/31/18 famotidine 20 mg PO HS 04/16/18 04/20/18 metformin 500 mg PO BID 04/16/18 05/31/18 pantoprazole 40 mg PO BID 04/16/18 05/31/18 Allergies Allergy/AdvReac Type Severity Reaction Status Date / Time amoxicillin trihydrate Allergy rash/gi Unverified 07/11/18 10:57 [From Augmentin] upset bacitracin Allergy Skin Rash Unverified 07/11/18 10:57 [From Neosporin ([id number])] bacitracin zinc Allergy Skin Rash Unverified 07/11/18 10:57 [From Neosporin ([id number])] neomycin sulfate Allergy Skin Rash Unverified 07/11/18 10:57 [From Neosporin ([id number])] polymyxin B Allergy Skin Rash Unverified 07/11/18 10:57 [From Neosporin ([id number])] potassium clavulanate Allergy rash/gi Unverified 07/11/18 10:57 [From Augmentin] upset aspirin AdvReac Nausea Unverified 07/11/18 10:57 lactose AdvReac gi upset Unverified 07/11/18 10:57 General Stated Complaint: Orthopedic ALLYSON: 3 Review of Systems Review of Systems All systems reviewed & are unremarkable except as noted in HPI and below Constitutional Reports as per HPI, Denies chills and Denies fever(s) Eyes Denies blurry vision ENT Denies dizziness, Denies sore throat and Denies throat swelling Cardiovascular Denies chest pain and Denies dyspnea Respiratory Denies cough and Denies dyspnea Gastrointestinal Denies abdominal pain, Denies diarrhea and Denies vomiting Genitourinary Denies hematuria and Denies dysuria Musculoskeletal Denies back pain, Denies numbness and Reports other (R shoulder and R elbow pain) Integumentary/Breasts Denies lesions and Denies rash Neurologic Denies dizziness, Denies focal weakness and Denies numbness Allergic/Immunologic Denies throat swelling [facility] Social History Smoking/Tobacco Use Status: Current every day Tobacco Type: cigarettes Alcohol Intake: never Drug use: Never Substance use type: does not use Do you feel safe at home: Yes Do you feel safe in your relationship?: Yes Exam Const General: cooperative, healthy appearing and no acute distress [facility] Head: normal to inspection Mouth: oral mucosae normal Eyes General: appearance normal, both eyes and all related structures Neck Neck: normal visual inspection Resp Effort & Inspection: normal respiratory effort and able to speak in complete sentences Cardio Rate: regular rate Skin General skin exam: no rashes or lesions noted Neuro General: alert, awake and oriented x3 Motor: muscle tone normal throughout and strength 5/5 throughout Sensory Exam: no sensory deficits noted Extrem Other: Pain in right trapezius and right shoulder with range of motion. Limitation of full abduction due to pain in right shoulder. Tenderness to palpation of right anterior shoulder and overlying trapezius. No tenderness to palpation of right upper arm. Tenderness palpation of right medial elbow without tenderness palpation of bilateral epicondyles or olecranon. No deformities noted. Right radial and ulnar pulses intact. Cap refill less than 2 seconds. There is a small approximately 2 x 2 centimeter minimally raised area to the right medial elbow which is tender to palpation but there is no erythema, ecchymosis, rash or abrasion. Psych Appearance: grossly normal Affect: normal affect Course Vital Signs Temperature 98.8 F 07/11/18 10:50 Pulse 88 07/11/18 10:50 Respiratory Rate 16 07/11/18 10:50 Blood Pressure 119/100 H 07/11/18 10:50 Pulse Oximetry 97 07/11/18 10:50 Temperature 98.8 F 07/11/18 10:50 Temperature Source Skin 07/11/18 10:50 Pulse 88 07/11/18 10:50 Respiratory Rate 16 07/11/18 10:50 Respiratory Effort 07/11/18 10:53 Blood Pressure 119/100 H 07/11/18 10:50 Blood Pressure Position Sitting 07/11/18 10:50 Pulse Oximetry 97 07/11/18 10:50 Oxygen Delivery Method Room Air 07/11/18 10:50 Oxygen Flow Rate 0 07/11/18 10:50 Pain Level 6 07/11/18 10:50
[2018-07-11] MEDS: Acetaminophen 325 MG TAB 650 MG PO (12:03)
--- NOTE | 2018-07-11 12:55 | DI.VRAD_ITS ---
EXAM: XR Right Shoulder, Complete, 2 or More Views EXAM DATE/TIME: 07/11/2018 11:34 AM CLINICAL HISTORY: 57 years old, female; Pain; Shoulder; Right; Patient HX: S/P fall onto r shoulder, R/O acute fracture. TECHNIQUE: Imaging protocol: XR Right shoulder, complete 2 or more views. COMPARISON: CR RIGHT SHOULDER COMPLETE 06/08/2015 10:27 AM FINDINGS: Bones/joints: Mild degenerative changes in glenohumeral joint and acromioclavicular joint. There is no evidence of acute fracture.. There is no evidence of malalignment or dislocation. Soft tissues: Normal. IMPRESSION: 1. There is no evidence of acute fracture.. 2. There is no evidence of malalignment or dislocation. Dictated and Authenticated by: Esau Issa MD. Ordering:CAROLINA Pappas MD
--- NOTE | 2018-07-11 12:57 | DI.VRAD_ITS ---
EXAM: XR Right Elbow Complete, 3 or more Views EXAM DATE/TIME: 07/11/2018 11:34 AM CLINICAL HISTORY: 57 years old, female; Pain; Elbow; Right; Patient HX: S/P fall, R/O acute fracture. TECHNIQUE: Imaging protocol: XR Right elbow, 3 or more views. COMPARISON: No relevant prior studies available. FINDINGS: Bones/joints: Degenerative changes in the humeral ulnar joint Anterior and posterior joint effusions. Lucency through the radial head may represent a nondisplaced radial head fracture. Soft tissues: Normal. IMPRESSION: 1. Anterior and posterior joint effusions. 2. Lucency through the radial head may represent a nondisplaced radial head fracture. Dictated and Authenticated by: Esau Issa MD. Ordering:CAROLINA Pappas MD
[2018-07-11 13:39] VITALS: PULSE 76; RESP 18; O2SAT 100
== END 2018-07-11 13:40 | disposition home or self-care (01) ==
PROVIDERS: Emergency Provider Physician Assistant; PCP Family Medicine
DX: S52.121A Displaced fracture of head of right radius, initial encounter for closed fracture (principal); S46.911A Strain of unspecified muscle, fascia and tendon at shoulder and upper arm level, right arm, initial encounter; W00.0XXA Fall on same level due to ice and snow, initial encounter
CPT/HCPCS: 99284; 73030; 73080; L3650

== ENCOUNTER 2018-07-27 10:07 | Emergency (ER) | payer MEDICAID, SELFPAY ==
[2018-07-27 10:10] VITALS: BP 112/55; PULSE 90; RESP 18; TEMP 36.7; O2SAT 99
[2018-07-27 10:24] VITALS: RESP 18
--- NOTE | 2018-07-27 10:29 | W.ED.GENAD ---
Discharge Plan Disposition Patient Disposition: HOME Condition: Stable Discharge Details Chief Complaint: Chest Pain Clinical Impression: Acute shoulder pain due to trauma Primary Care Provider: Grant Lindsey ED Provider: Cullen Cottrell Home Meds and New Rx's Prescriptions: Continued loratadine 10 MG tablet,disintegrating 10 mg PO DAILY RF: 0 carvedilol [Coreg] 3.125 MG tablet 6.25 mg PO BID RF: 0 ProAir HFA 8.5 GM HFA aerosol inhaler 1 - 2 puff Inhalation Q6H PRN RF: 0 Advair Diskus 1 EACH blister with device 1 ea Inhalation BID RF: 0 citalopram 20 MG tablet 40 mg PO QAM RF: 0 levothyroxine 50 MCG tablet 50 mcg PO DAILY@0730 RF: 0 gabapentin 300 MG capsule 800 mg PO TID RF: 0 cyanocobalamin (vitamin B-12) [Vitamin B-12] 1,000 MCG tablet 1,000 mcg PO DAILY RF: 0 hydroxyzine HCl 25 MG tablet 25 mg PO BID RF: 0 ropinirole 0.25 MG tablet 0.25 mg PO BID RF: 0 clopidogrel [Plavix] 75 mg Tablet 75 mg PO DAILY RF: 0 lorazepam 0.5 mg Tablet 0.5 mg PO TID PRNRF: 0 colchicine 0.6 mg Tablet 1 tab PO DAILY RF: 0 metformin 500 mg Tablet 500 mg PO BID RF: 0 pantoprazole 40 mg Tablet,Delayed Release (Dr/Ec) 40 mg PO BID RF: 0 Novolog Flexpen U-100 Insulin 100 unit/mL Insulin Pen 0 - 15 units subcut AC RF: 0 famotidine 20 MG tablet 20 mg PO HS RF: 0 Discharge Instructions Instructions: Arthralgia (ED), Shoulder Pain (ED) Additional Instructions: Please take 1000 mg of acetaminophen every 6 hours as needed for pain and discomfort. Use the sling and advance range of motion activities as tolerated by discomfort. Please keep your appointment with Dr. Laird for follow-up as scheduled Referrals: Gilberto Laird MD [ [facility] STAFF PHYSICIAN] - (As scheduled) Discharge Data Discharge Date/Time-TO BE ENTERED AT DEPARTURE: 07/27/18 13:25 Medical Decision Making Patient presenting to the emergency department chief complaint of right-sided chest pain and shoulder pain. Patient had fall with injury 2 weeks ago and states 2 days ago she slipped on some water that was in her kitchen causing her to strike her refrigerator door with her right shoulder. After this event this seemed to significantly worsen her discomfort to her right shoulder, right anterior chest, neck, and pain radiating down her hand. Patient does state some occasional cramping of the hand and pain with any range of motion. Patient does report that she has a follow-up appoint with Dr. Laird for a questionable radial head fracture that was diagnosed 2 weeks ago in the emergency department but due to the reinjury and worsening of pain patient is presenting to the emergency department. 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 Anthony and please see his interpretation. Physical exam shows a diffusely tender right shoulder mostly on the anterior surface with anterior chest wall discomfort that is also reproducible. Patient does state pain with inspiration during auscultation of lungs but again this is isolated to the right anterior chest wall and is reproducible. Lungs are clear with normal cardiac and respiratory examination. Patient has diffuse tenderness down the right upper extremity all the way to the elbow. Range of motion is difficult to fully perform due to patient's stated 10 of 10 discomfort and very hesitant to move her upper extremity. While this limits the physical exam of notation is patient does state that she was able to dress herself and apply her bra this morning but this caused significant pain. Plan to check labs for patient's reported cramping and muscular pain, perform chest x-ray and x-ray of the shoulder and humerus given reinjury. Patient treated with lidocaine patch and acetaminophen pending results. More than likely feel that this is a reinjury or worsening injury of patient's right shoulder and doubt any respiratory or cardiac nature to this at this time. Review of radiological imaging showed no acute findings. Patient was encouraged to continue to use acetaminophen [id number] and given a sling and encourage rest. Patient does have follow-up appointment with Dr. Laird and I feel that that is appropriate. After discussion of diagnosis and plan of care patient has no further needs, questions, or concerns and states clear understanding to return to the emergency department for any worsening symptoms. HPI General Mode of arrival: ambulatory. Date/Time Provider Initiated Documentation: 07/27/18 10:16. Limitations to Documentation: no limitations. Information obtained by: patient, RN notes reviewed and old records reviewed. History of Present Illness 57 year old F presents to the emergency department with the chief complaint of Right shoulder pain radiating to neck and right chest, described as severe and similar to prior episodes, with intensity rated at 10. Quality is described as aching, and is localized to the chest, right and upper extremity. Patient neck and extremity. Patient started experiencing this week(s) (2-worsening past couple days after reinjury) and it has been constant. Immobilization improves symptom(s), Movement worsens symptoms . Related Data Home Medications Medication Instructions Recorded Confirmed Advair Diskus 1 ea INHALATION BID 08/31/12 05/31/18 citalopram 40 mg PO QAM 08/31/12 04/20/18 gabapentin 800 mg PO TID 08/31/12 05/31/18 levothyroxine 50 mcg PO DAILY@0730 08/31/12 04/20/18 ProAir HFA 1 - 2 puff INHALATION Q6H PRN 05/04/14 05/31/18 inhaler carvedilol [Coreg] 6.25 mg PO BID tab-cap 05/04/14 05/31/18 loratadine 10 mg PO DAILY 05/04/14 05/31/18 cyanocobalamin (vitamin B-12) 1,000 mcg PO DAILY 10/16/16 05/31/18 [Vitamin B-12] hydroxyzine HCl 25 mg PO BID 10/16/16 04/20/18 ropinirole 0.25 mg PO BID 06/27/17 05/31/18 clopidogrel [Plavix] 75 mg PO DAILY 12/24/17 05/31/18 lorazepam 0.5 mg PO TID PRN 12/24/17 04/20/18 colchicine 1 tab PO DAILY 03/16/18 05/31/18 Novolog Flexpen U-100 Insulin 0 - 15 units SUBCUT AC 04/16/18 05/31/18 famotidine 20 mg PO HS 04/16/18 04/20/18 metformin 500 mg PO BID 04/16/18 05/31/18 pantoprazole 40 mg PO BID 04/16/18 05/31/18 Allergies Allergy/AdvReac Type Severity Reaction Status Date / Time amoxicillin trihydrate Allergy rash/gi Unverified 07/27/18 10:26 [From Augmentin] upset bacitracin Allergy Skin Rash Unverified 07/27/18 10:26 [From Neosporin ([id number])] bacitracin zinc Allergy Skin Rash Unverified 07/27/18 10:26 [From Neosporin ([id number])] neomycin sulfate Allergy Skin Rash Unverified 07/27/18 10:26 [From Neosporin ([id number])] polymyxin B Allergy Skin Rash Unverified 07/27/18 10:26 [From Neosporin ([id number])] potassium clavulanate Allergy rash/gi Unverified 07/27/18 10:26 [From Augmentin] upset aspirin AdvReac Nausea Unverified 07/27/18 10:26 lactose AdvReac gi upset Unverified 07/27/18 10:26 General Stated Complaint: Chest Pain ALLYSON: 3 Review of Systems Constitutional Denies chills, Denies fever(s) and Denies malaise Cardiovascular Reports as per HPI, Reports chest pain (right anterior chest wall), Denies chest pain with activity, Denies syncope, Denies irregular heart rhythm, Denies palpitations and Denies dyspnea Respiratory Denies cough, Denies hemoptysis, Reports pain on inspiration (right anterior chest wall) and Denies dyspnea Gastrointestinal Denies abdominal pain, Denies nausea and Denies vomiting Musculoskeletal Reports arthralgias, Reports muscle cramps, Reports radiating pain into limb, Denies stiffness and Denies tingling Neurologic Denies syncope and Denies tingling Psychiatric Denies anxiety Endocrine Denies cold intolerance, Denies heat intolerance and Denies palpitations PFSH Medical History Hyperlipemia (Acute) Anxiety (Chronic) Asthma (Chronic) Depression (Chronic) Diabetes (Chronic) GERD (gastroesophageal reflux disease) (Chronic) HTN (hypertension) (Chronic) Migraine (Chronic) Surgical History History of hysterectomy (Chronic) History of thyroidectomy (Chronic) Hx of cholecystectomy (Chronic) Social History Smoking/Tobacco Use Status: Current every day Tobacco Type: cigarettes Alcohol Intake: never Drug use: Never Substance use type: does not use Do you feel safe at home: Yes Do you feel safe in your relationship?: Yes Exam Const General: cooperative, healthy appearing, comfortable, no acute distress, not diaphoretic and not ill appearing Nutritional Appearance: average body habitus Orientation: alert, awake and oriented x3 Limitations: mental status not altered Neck Neck: normal visual inspection, full ROM, trachea midline, supple and no anterior neck swelling Thyroid: thyroid normal Carotids: normal carotid upstroke and no bruits Chest Chest: normal inspection of the chest and tenderness pectoral muscle on the right diffusely Resp Effort & Inspection: normal respiratory effort and able to speak in complete sentences Auscultation: clear to auscultation bilaterally Cardio Jugular venous pressure: no JVD Palpation: normal PMI Rate: regular rate Rhythm: regular rhythm Heart Sounds: S1 normal, S2 normal, no click, no gallops, no murmurs and no rubs Bruits: no carotid bruits Pulses: radial pulses present bilaterally 2+ Back/Spine/Pelvis Cervical Spine: normal cervical lordosis, cervical ROM normal, pain with cervical ROM (right soft tissue) and No cervical spinal tenderness Skin General skin exam: no rashes or lesions noted Neuro General: alert, awake, oriented x3 and tone normal Extrem Right upper extremity: shoulder/upper arm Details: tenderness Location: of the proximal humerus, of the mid-shaft humerus, over the subacromial bursa and over the deltoid bursa, axillary nerve sensory function normal and abnormal ROM Details: held in an abnormal fashion Details: in ADduction and in internal rotation, pain with active ROM, pain with passive ROM and with range as follows (Patient hesitant to perform any range of motion due to pain) and elbow/forearm Details: tenderness Location: of the distal humerus and of the radial head Course Vital Signs Temperature 36.7 C 07/27/18 10:10 Pulse 90 07/27/18 10:10 Respiratory Rate 18 07/27/18 10:10 Blood Pressure 112/55 L 07/27/18 10:10 Pulse Oximetry 99 07/27/18 10:10 Temperature 36.7 C 07/27/18 10:10 Temperature Source Temporal Artery Scan 07/27/18 10:10 Pulse 90 07/27/18 10:10 Respiratory Rate 18 07/27/18 10:24 Respiratory Effort Non-Labored 07/27/18 10:24 Respiratory Depth Normal 04/15/19 10:24 Respiratory Pattern Normal 07/27/18 10:24 Blood Pressure 112/55 L 07/27/18 10:10 Blood Pressure Position Sitting 07/27/18 10:10 Pulse Oximetry 99 07/27/18 10:10 Oxygen Delivery Method Room Air 07/27/18 10:10 Oxygen Flow Rate 0 07/27/18 10:10 Pain Level 10 07/27/18 10:24
[2018-07-27 11:40] LABS: Abs Immature Grans 0.03 k/cumm (0.0-0.09); Absolute Basophil Count 0.01 k/cumm (0.0-0.2); Absolute Eosinophil Count 0.25 k/cumm (0.0-0.7); Absolute Lymphocyte Count 2.32 k/cumm (1.2-3.4); Absolute Monocyte Count 0.45 k/cumm (0.11-0.7); Absolute Neutrophil Count 3.17 k/cumm (1.2-6.7); Basophils % 0.2; HGB 13.2 g/dL (12.0-15.5); Immature Grans % 0.5; Lymphocytes % 37.2; Mean Corp. HGB Concentration 33.8 g/dL (32.0-36.0); Mean Corpuscular Hemoglobin 28.8 pg (27.0-33.0); Mean Corpuscular Volume 85.2 fL (80-95); Mean Platelet Volume 9.8 fL (8.0-11.0); Monocytes % 7.2; Neutrophils % 50.9; Platelet Count 135 x1000/uL (130-400); RBC 4.58 m/cumm (4.00-5.20); RBC Distribution Width 13.7 % (11.7-14.6); White Blood Cell Count 6.23 k/cumm (4.4-10.8)
[2018-07-27] MEDS: Lidocaine 5% Patch 1 PATCH TP (11:47)
[2018-07-27] MEDS: Acetaminophen 500 MG TAB 1000 MG PO (11:47)
[2018-07-27 11:51] LABS: ALT 31 U/L (12-78); AST 23 U/L (15-37); Alkaline Phosphatase 132 U/L (46-116); Anion Gap 12.8 mmol/L (3-11); BUN 13 mg/dL (7-18); Bilirubin, Total 0.4 mg/dL (0.2-1.0); CO2 25.2 mmol/L (21.0-32.0); CREATININE 0.69 mg/dL (0.55-1.02); Calcium 8.7 mg/dL (8.5-10.1); Chloride 102 mmol/L (98-107); Glucose 157 mg/dL (70-100); Potassium 3.7 mmol/L (3.5-5.1); Sodium 140 mmol/L (136-145); Total Protein 7.5 g/dL (6.4-8.2)
--- NOTE | 2018-07-27 12:17 | DI.RAD_ITS ---
SYMPTOM/DIAGNOSIS: PAIN WITH INSPIRATION, RT ANT CHEST WALL PAIN, SHOULDER AND HUMERUS PAIN PA AND LATERAL CHEST: The heart is normal in size. The lungs are clear. The mediastinal structures and pleura appear intact. CONCLUSION: Normal chest. RIGHT HUMERUS: Two views were obtained. No bony abnormality is seen. RIGHT SHOULDER: Four views were obtained. No bony or soft tissue abnormality is seen.
[2018-07-27 13:25] VITALS: BP 110/72; PULSE 84; RESP 18; O2SAT 98
== END 2018-07-27 13:25 | disposition home or self-care (01) ==
PROVIDERS: Emergency Provider Nurse Practitioner Family; PCP Family Medicine
DX: M25.511 Pain in right shoulder (principal); R07.89 Other chest pain; W01.190A Fall on same level from slipping, tripping and stumbling with subsequent striking against furniture, initial encounter; F17.210 Nicotine dependence, cigarettes, uncomplicated; E11.9 Type 2 diabetes mellitus without complications; Z79.4 Long term (current) use of insulin; I10 Essential (primary) hypertension
CPT/HCPCS: 36415; 80053; 93005; 99284; 71046; 73030; 73060; 83735; 85025; 93010; L3650

== ENCOUNTER 2018-07-29 11:15 | Outpatient (CLI) | payer MEDICAID, SELFPAY ==
--- NOTE | 2018-07-29 11:09 | DI.RAD_ITS ---
SYMPTOMS/DIAGNOSIS: RIGHT ELBOW PAIN RIGHT ELBOW: No bony or joint abnormality is seen.
== END 2018-07-29 11:35 ==
PROVIDERS: PCP Family Medicine; Visit Provider Physician Assistant
DX: M25.521 Pain in right elbow (principal)
CPT/HCPCS: 73080

== ENCOUNTER 2018-10-04 10:39 | Emergency (ER) | payer MEDICAID, SELFPAY ==
--- NOTE | 2018-10-04 10:42 | NUR.NOTE ---
Nursing Note: pt states that she fell off of a stepstool wile reaching for something at approximately 1030. pt denies LOC and primary complaint is bilateral knee pain which she landed on 12/22 as well as abdominal pain 06/21
[2018-10-04 10:44] VITALS: BP 134/89; PULSE 88; RESP 16; TEMP 36.8; O2SAT 96
--- NOTE | 2018-10-04 11:01 | DI.RAD_ITS ---
SYMPTOM/DIAGNOSIS: PAIN, TTP MEDIAL RIGHT KNEE: No fracture or joint effusion is seen. The joint spaces are well maintained. There are no significant degenerative changes. IMPRESSION: Negative right knee
--- NOTE | 2018-10-04 11:01 | DI.RAD_ITS ---
SYMPTOM/DIAGNOSIS: TRAUMA TTP LATAERAL RIGHT FOOT RIGHT FOOT: Comparison is made with 24 Dec 2017 The patient is status post amputation of the 3rd toe at the level of the distal aspect of the proximal phalanx. No definite bony erosions are seen. There is no evidence of an acute fracture. Heel spur is incidentally noted. IMPRESSION: 3rd toe amputation. No acute abnormality
--- NOTE | 2018-10-04 11:04 | ED.GENADUL_ITS ---
Discharge Plan Disposition Patient Disposition: HOME Discharge Details Chief Complaint: Orthopedic Clinical Impression: Fall, Abdominal wall contusion, Injury of knee, right, Contusion of foot, right Primary Care Provider: Grant Lindsey ED Provider: Scot Acevedo Home Meds and New Rx's Prescriptions: Continued amitriptyline 50 mg tablet 50 mg PO QHS Qty: 30 RF: 1 loratadine 10 MG tablet,disintegrating 10 mg PO DAILY RF: 0 carvedilol [Coreg] 3.125 MG tablet 6.25 mg PO BID RF: 0 albuterol sulfate [ProAir HFA] 8.5 GM HFA aerosol inhaler 1 - 2 puff Inhalation Q6H PRN RF: 0 fluticasone propion-salmeterol [Advair Diskus] 1 EACH blister with device 1 ea Inhalation BID RF: 0 citalopram 20 MG tablet 40 mg PO QAM RF: 0 levothyroxine 50 MCG tablet 50 mcg PO DAILY@0730 RF: 0 gabapentin 300 MG capsule 800 mg PO TID RF: 0 cyanocobalamin (vitamin B-12) [Vitamin B-12] 1,000 MCG tablet 1,000 mcg PO DAILY RF: 0 hydroxyzine HCl 25 MG tablet 25 mg PO BID RF: 0 ropinirole 0.25 MG tablet 0.25 mg PO BID RF: 0 clopidogrel [Plavix] 75 mg Tablet 75 mg PO DAILY RF: 0 lorazepam 0.5 mg Tablet 0.5 mg PO TID PRNRF: 0 colchicine 0.6 mg Tablet 1 tab PO DAILY RF: 0 metformin 500 mg Tablet 500 mg PO BID RF: 0 pantoprazole 40 mg Tablet,Delayed Release (Dr/Ec) 40 mg PO BID RF: 0 Novolog Flexpen U-100 Insulin 100 unit/mL Insulin Pen 0 - 15 units subcut AC RF: 0 famotidine 20 MG tablet 20 mg PO HS RF: 0 Discharge Instructions Instructions: Contusion in Adults (ED), Foot Contusion (ED), Fall Prevention (ED) Additional Instructions: Please use Chris wrap and crutches for the next 1 week and until feeling better. Please contact your primary care physician to arrange follow-up. Return to the ER for any worsening or new concerning symptoms. Referrals: Grant Lindsey [Primary Care Provider] - Discharge Data Discharge Date/Time-TO BE ENTERED AT DEPARTURE: 10/04/18 13:44 Medical Decision Making 11:00 --58-year-old female on Plavix, fall from stool to ground with trauma to her right knee, right lateral foot and abdomen. Abdomen is tender and she has some guarding when I pushed on her left upper abdomen. Plan to obtain CT of the abdomen pelvis to assess for acute surgical pathology including splenic laceration. Consider fracture of the right knee and right foot. Will obtain plain film x- ray. --X-ray of the knee interpreted by radiology: No acute abnormality. X-ray of the right foot interpreted by radiology: Interval partial third toe amputation. No acute abnormality evident. CT of the abdomen and pelvis interpreted by radiology: Changes concerning for hepatocellular disease with possible early portal hypertension. No acute posttraumatic abnormality evident. Coronary artery calcifications identified with moderate atherosclerotic change again seen in the vasculature. Small to moderate sized fat-containing anterior abdominal wall hernia again noted. Left adnexal focus unchanged from prior exam presumed small ovarian cyst. Patient reassessed and notably improved. All results were discussed the patient. Patient was encouraged to follow-up with her primary care physician. Chris wrap applied to right knee and crutches provided. Disposition decision was made weighing the risks and benefits of hospitalization versus outpatient treatment, the risk for further decompensation, and the patient's wishes. The patient was stable and requested discharge. Prior to discharge, my usual and customary return precautions were reviewed with the patient - this included follow-up instructions and reason to return to the emergency department if condition worsens, does not improve as expected, or other new concerns arise. Lab Data Lab results reviewed: Yes I reviewed the patient's lab results. Laboratory Tests Range/Units 10/04/18 10/04/18 11:18 11:18 WBC (4.4-10.8) k/cumm 5.39 RBC (4.00-5.20) m/cumm 4.97 Hgb (12.0-15.5) g/dL 14.3 Hct (36.0-46.0) % 41.5 MCV (80-95) fL 83.5 MCH (27.0-33.0) pg 28.8 MCHC (32.0-36.0) g/dL 34.5 RDW (11.7-14.6) % 14.0 Plt Count (130-400) x1000/uL 133 MPV (8.0-11.0) fL 9.5 Immature Gran % 0.0 Neutrophils % 53.9 Lymphocytes % 37.5 Monocytes % 5.8 Eosinophils % 2.6 Basophils % 0.2 Absolute Neutrophils (1.2-6.7) k/cumm 2.91 Absolute Lymphocytes (1.2-3.4) k/cumm 2.02 Absolute Monocytes (0.11-0.7) k/cumm 0.31 Absolute Eosinophils (0.0-0.7) k/cumm 0.14 Absolute Basophils (0.0-0.2) k/cumm 0.01 Sodium (136-145) mmol/L 141 Potassium (3.5-5.1) mmol/L 4.0 Chloride (98-107) mmol/L 103 Carbon Dioxide (21.0-32.0) mmol/L 28.3 Anion Gap (3-11) mmol/L 9.7 BUN (7-18) mg/dL 13 Creatinine (0.55-1.02) mg/dL 1.00 Estimated GFR/1.73 m2 (mL/min/1.73m2) 56.95 Glucose (70-100) mg/dL 118 H Calcium (8.5-10.1) mg/dL 9.3 Total Bilirubin (0.2-1.0) mg/dL 0.6 AST (15-37) U/L 21 ALT (12-78) U/L 30 Alkaline Phosphatase (46-116) U/L 126 H Total Protein (6.4-8.2) g/dL 7.8 Albumin (3.4-5.0) g/dL 4.2 HPI General Mode of arrival: ambulatory . Date/Time Provider Initiated Documentation: 10/04/18 10:42 . Limitations to Documentation: no limitations . Information obtained by: patient . HPI Narrative: 58-year-old female on Plavix, present to the ED with chief complaint of rt foot pain. Patient notes that she was on a step stool and tripped and fell to the gound. She injured her right foot during fall. Pain is localized laterally. Sore. Moderate and worse with ambulation. No associated numbness. Patient also notes that she injured her right knee during fall. Knee hurts with flexion. Patient also notes that she injured her abdomen during the fall. Pain in abdomen is moderate. Localized diffusely, L>R. Patient did not hit her head and has no ROCHA, neck or back pain. Patient is on plavix and has been taking as prescribed. Related Data Home Medications Medication Instructions Recorded Confirmed citalopram 40 mg PO QAM 08/31/12 10/04/18 fluticasone propion-salmeterol 1 ea INHALATION BID 08/31/12 10/04/18 [Advair Diskus] gabapentin 800 mg PO TID 08/31/12 10/04/18 levothyroxine 50 mcg PO DAILY@0730 08/31/12 10/04/18 albuterol sulfate [ProAir HFA] 1 - 2 puff INHALATION Q6H PRN 05/04/14 10/04/18 inhaler carvedilol [Coreg] 6.25 mg PO BID tab-cap 05/04/14 10/04/18 loratadine 10 mg PO DAILY 05/04/14 10/04/18 cyanocobalamin (vitamin B-12) 1,000 mcg PO DAILY 10/16/16 10/04/18 [Vitamin B-12] hydroxyzine HCl 25 mg PO BID 10/16/16 10/04/18 ropinirole 0.25 mg PO BID 06/27/17 10/04/18 clopidogrel [Plavix] 75 mg PO DAILY 12/24/17 10/04/18 lorazepam 0.5 mg PO TID PRN 12/24/17 10/04/18 colchicine 1 tab PO DAILY 03/16/18 10/04/18 Novolog Flexpen U-100 Insulin 0 - 15 units SUBCUT AC 04/16/18 10/04/18 famotidine 20 mg PO HS 04/16/18 10/04/18 metformin 500 mg PO BID 04/16/18 10/04/18 pantoprazole 40 mg PO BID 04/16/18 10/04/18 amitriptyline 50 mg tablet 50 mg PO QHS #30 tab 07/29/18 10/04/18 Previous Rx's Medication Instructions Recorded amitriptyline 50 mg tablet 50 mg PO QHS #30 tab 07/29/18 Allergies Allergy/AdvReac Type Severity Reaction Status Date / Time amoxicillin trihydrate Allergy rash/gi Unverified 10/04/18 10:46 [From Augmentin] upset bacitracin Allergy Skin Rash Unverified 10/04/18 10:46 [From Neosporin ([id number])] bacitracin zinc Allergy Skin Rash Unverified 10/04/18 10:46 [From Neosporin ([id number])] neomycin sulfate Allergy Skin Rash Unverified 10/04/18 10:46 [From Neosporin ([id number])] polymyxin B Allergy Skin Rash Unverified 10/04/18 10:46 [From Neosporin ([id number])] potassium clavulanate Allergy rash/gi Unverified 10/04/18 10:46 [From Augmentin] upset aspirin AdvReac Nausea Unverified 10/04/18 10:46 lactose AdvReac gi upset Unverified 10/04/18 10:46 General Stated Complaint: Orthopedic ALLYSON: 4 Review of Systems Constitutional Denies headache(s) ENT Denies facial pain, Denies headache(s) and Denies neck pain Cardiovascular Denies chest pain and Denies dyspnea Respiratory Denies dyspnea Gastrointestinal Reports as per HPI and Reports abdominal pain Musculoskeletal Reports as per HPI and Denies neck pain Integumentary/Breasts Denies rash Neurologic Denies confusion and Denies headache(s) Psychiatric Denies confusion Hematologic/Lymphatic Denies lymphadenopathy and Reports other PFSH Medical History Hyperlipemia (Acute) Anxiety (Chronic) Asthma (Chronic) Depression (Chronic) Diabetes (Chronic) GERD (gastroesophageal reflux disease) (Chronic) HTN (hypertension) (Chronic) Migraine (Chronic) Surgical History History of hysterectomy (Chronic) History of thyroidectomy (Chronic) Hx of cholecystectomy (Chronic) Social History Smoking/Tobacco Use Status: Current every day Tobacco Type: cigarettes Alcohol Intake: never Drug use: Never Substance use type: does not use Do you feel safe at home: Yes Do you feel safe in your relationship?: Yes Exam Const General: cooperative and no acute distress HENMT Head: normocephalic and atraumatic Mouth: moist mucous membranes Eyes Conjunctivae: normal conjunctivae Sclera: normal sclerae Neck Neck: full ROM, trachea midline, supple and nontender Resp Auscultation: clear to auscultation bilaterally, no rales, no rhonchi and no wheezes Cardio Jugular venous pressure: no JVD Rate: regular rate and not tachycardic Rhythm: regular rhythm GI Palpation: soft, not firm, guarding, no masses, not rigid and tender in the LLQ and in the LUQ; with no rebound tenderness Skin General skin exam: no rashes or lesions noted Neuro General: alert, awake, oriented x3 and tone normal Extrem General: no edema Right lower extremity: knee Details: tenderness Location: of the medial joint line and swelling Location: of the proximal tibia and foot Details: tenderness Location: of the lateral foot Psych Appearance: grossly normal Mental Status: mental status grossly normal Course Vital Signs Temperature 36.8 C 10/04/18 10:44 Pulse 88 10/04/18 10:44 Respiratory Rate 16 10/04/18 10:44 Blood Pressure 134/89 10/04/18 10:44 Pulse Oximetry 96 10/04/18 10:44 Temperature 36.8 C 10/04/18 10:44 Temperature Source Skin 10/04/18 10:44 Pulse 88 10/04/18 10:44 Respiratory Rate 16 10/04/18 10:44 Respiratory Effort 10/04/18 10:46 Blood Pressure 134/89 10/04/18 10:44 Blood Pressure Position Sitting 10/04/18 10:44 Pulse Oximetry 96 10/04/18 10:44 Oxygen Delivery Method Room Air 10/04/18 10:44 Oxygen Flow Rate 0 10/04/18 10:44 Pain Level 9 10/04/18 10:44
[2018-10-04 11:26] LABS: Absolute Basophil Count 0.01 k/cumm (0.0-0.2); Absolute Eosinophil Count 0.14 k/cumm (0.0-0.7); Absolute Lymphocyte Count 2.02 k/cumm (1.2-3.4); Absolute Monocyte Count 0.31 k/cumm (0.11-0.7); Absolute Neutrophil Count 2.91 k/cumm (1.2-6.7); Basophils % 0.2; Eosinophils % 2.6; HCT 41.5 % (36.0-46.0); HGB 14.3 g/dL (12.0-15.5); Lymphocytes % 37.5; Mean Corp. HGB Concentration 34.5 g/dL (32.0-36.0); Mean Corpuscular Hemoglobin 28.8 pg (27.0-33.0); Mean Corpuscular Volume 83.5 fL (80-95); Mean Platelet Volume 9.5 fL (8.0-11.0); Monocytes % 5.8; Neutrophils % 53.9; Platelet Count 133 x1000/uL (130-400); RBC 4.97 m/cumm (4.00-5.20); White Blood Cell Count 5.39 k/cumm (4.4-10.8)
[2018-10-04 11:41] LABS: ALT 30 U/L (12-78); AST 21 U/L (15-37); Albumin 4.2 g/dL (3.4-5.0); Alkaline Phosphatase 126 U/L (46-116); Anion Gap 9.7 mmol/L (3-11); BUN 13 mg/dL (7-18); Bilirubin, Total 0.6 mg/dL (0.2-1.0); CO2 28.3 mmol/L (21.0-32.0); Calcium 9.3 mg/dL (8.5-10.1); Chloride 103 mmol/L (98-107); Estimated GFR 56.95 (mL/min/1.73m2); Glucose 118 mg/dL (70-100); Sodium 141 mmol/L (136-145); Total Protein 7.8 g/dL (6.4-8.2)
[2018-10-04] MEDS: Omnipaque 350 MG/ML 100 ML BTL IJ (12:31)
--- NOTE | 2018-10-04 12:35 | DI.CT_ITS ---
SYMPTOMS/DIAGNOSIS: TENDERNESS TO PALPATION MID ABDOMEN, S/P FALL FROM STOOL, ON PLAVIX CT OF THE ABDOMEN AND PELVIS; Comparison is made with April,. The lung bases are clear. The liver is again noted to be mildly enlarged and shows decreased attenuation, as well as nodularity, consistent with cirrhotic changes. The spleen is also enlarged, unchanged. There is prominence of the portal vein and periportal varicosities. There is no evidence of liver or splenic laceration, free air or free fluid. The bowel shows no evidence of injury. The patient is status post hysterectomy. The bladder is intact. No spinal or pelvic fractures are seen. A fatty- containing hernia is again noted above the level of the umbilicus. IMPRESSION: Cirrhotic-appearing liver. No acute abnormality.
--- NOTE | 2018-10-04 12:56 | DI.VRAD_ITS ---
EXAM: CT Abdomen and Pelvis With Contrast EXAM DATE/TIME: 10/04/2018 11:03 AM CLINICAL HISTORY: 58 years old, female; Abdominal pain; Patient HX: Fall from stool, ttp left mid abd, on plavix TECHNIQUE: Imaging protocol: Axial computed tomography images of the abdomen and pelvis with intravenous contrast. Coronal and sagittal reformatted images were created and reviewed. Radiation optimization: All CT scans at this facility use at least one of these dose optimization techniques: automated exposure control; mA and/or kV adjustment per patient size (includes targeted exams where dose is matched to clinical indication); or iterative reconstruction. Contrast material: OMNI 350; Contrast volume: 100 ml; Contrast route: IV; COMPARISON: CT Abdomen^ROUTINE ABDOMEN PELVIS WITH CONTRAST (Adult) 04/16/2018 10:58 AM FINDINGS: Liver: Fatty liver with nodular change consistent with underlying hepatocellular disease. Gallbladder and bile ducts: Normal. No calcified stones. No ductal dilation. Pancreas: Normal. No ductal dilation. Spleen: No change splenomegaly. Adrenals: Normal. No mass. Kidneys and ureters: Normal. No hydronephrosis. Stomach and bowel: Moderate fecal retention pattern. Appendix: No evidence of appendicitis. Intraperitoneal space: Normal. No free air. No significant fluid collection. Vasculature: Coronary artery calcifications identified. Moderate atherosclerotic change again seen in the vasculature. Lymph nodes: Normal. No enlarged lymph nodes. Bladder: Unremarkable as visualized. Reproductive: Status post hysterectomy. 2.1 cm low density left adnexal focus unchanged from prior exam, presumed small ovarian cysts. Bones/joints: No acute fracture. No dislocation. Soft tissues: Small to moderate sized fat-containing anterior abdominal wall hernia again noted. IMPRESSION: Changes concerning for hepatocellular disease with possible early portal hypertension. No acute posttraumatic abnormality evident. COMMENT: Preliminary interpretation is based on receipt of 348 image(s). A final report will be issued subsequently. Dictated and Authenticated by: Tasha De La Vega MD. Ordering:PARKER Ellison MD
--- NOTE | 2018-10-04 12:57 | DI.VRAD_ITS ---
EXAM: XR Right Knee EXAM DATE/TIME: 10/04/2018 11:03 AM CLINICAL HISTORY: 58 years old, female; Pain; Knee; Right TECHNIQUE: Imaging protocol: XR Right knee. Views: 3 views. COMPARISON: CR XR knee RT 3V AP,lat,alonso 04/16/2018 11:12 AM FINDINGS: Bones/joints: Normal. Bony alignment is anatomic without evidence for fracture or dislocation. Soft tissues: Normal. IMPRESSION: No evidence for acute abnormality. COMMENT: Preliminary interpretation is based on receipt of 3 image(s). A final report will be issued subsequently. Dictated and Authenticated by: Tasha De La Vega MD. Ordering:PARKER Ellison MD
--- NOTE | 2018-10-04 13:02 | DI.VRAD_ITS ---
EXAM: XR Right Foot Complete EXAM DATE/TIME: 10/04/2018 11:03 AM CLINICAL HISTORY: 58 years old, female; Pain; Toes; Right TECHNIQUE: Imaging protocol: XR Right foot. Views: 3 or more views. COMPARISON: CR XR foot RT complete 12/24/2017 12:50 PM FINDINGS: Bones/joints: The patient is status post partial amputation of the third toe from the distal aspect of the proximal phalanx. Soft tissues: Normal. IMPRESSION: Interval partial third toe amputation. No acute abnormality evident. COMMENT: Preliminary interpretation is based on receipt of 3 image(s). A final report will be issued subsequently. Dictated and Authenticated by: Tasha De La Vega MD. Ordering:PARKER Ellison MD
[2018-10-04 13:45] VITALS: BP 134/89; PULSE 88; RESP 16; TEMP 36.8; O2SAT 96
== END 2018-10-04 13:44 | disposition home or self-care (01) ==
PROVIDERS: Emergency Provider Student in an Organized Health Care Education/Training Program; PCP Family Medicine
DX: S30.1XXA Contusion of abdominal wall, initial encounter (principal); S80.01XA Contusion of right knee, initial encounter; S90.31XA Contusion of right foot, initial encounter; Z79.01 Long term (current) use of anticoagulants; W08.XXXA Fall from other furniture, initial encounter; K46.9 Unspecified abdominal hernia without obstruction or gangrene
CPT/HCPCS: 36415; 73562; 80053; 99285; 73630; 74177; 85025; 99284; E0114; J3490

== ENCOUNTER 2018-10-08 00:58 | Outpatient (CLI) | payer MEDICAID, SELFPAY ==
--- NOTE | 2018-10-08 13:23 | DI.CT_ITS ---
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 Following intravenous infusion of 100 cc's of Omnipaque 350, there is excellent visualization of the intracranial vessels. The vertebral, basilar, internal carotid and anterior middle and posterior cerebral arteries all appear of normal caliber with no evidence of aneurysm, stenosis or dissection. Major branch vessels appear intact as visualized. No enhancing lesion identified in the brain. Diffuse predominantly frontal cerebral atrophy again noted. CONCLUSION: Negative CTA of the head.
[2018-10-08] MEDS: Omnipaque 350 MG/ML 100 ML BTL IJ (13:27)
== END 2018-10-08 01:18 ==
PROVIDERS: PCP Family Medicine; Visit Provider Ophthalmology Neuro-ophthalmology
DX: I25.41 Coronary artery aneurysm (principal); G31.89 Other specified degenerative diseases of nervous system
CPT/HCPCS: 70496; J3490

== ENCOUNTER 2018-12-29 13:21 | Outpatient (REF) | payer MEDICAID, SELFPAY ==
[2018-12-29 18:33] LABS: HCT 43.4 % (36.0-46.0); HGB 14.7 g/dL (12.0-15.5); Mean Corp. HGB Concentration 33.9 g/dL (32.0-36.0); Mean Corpuscular Hemoglobin 28.5 pg (27.0-33.0); Mean Corpuscular Volume 84.3 fL (80-95); Mean Platelet Volume 10.2 fL (8.0-11.0); Platelet Count 164 x1000/uL (130-400); RBC 5.15 m/cumm (4.00-5.20); RBC Distribution Width 14.2 % (11.7-14.6); White Blood Cell Count 7.13 k/cumm (4.4-10.8)
[2018-12-29 19:24] LABS: ALT 35 U/L (14-59); AST 29 U/L (15-37); Albumin 4.3 g/dL (3.4-5.0); Alkaline Phosphatase 132 U/L (46-116); Anion Gap 13.2 mmol/L (3-11); BUN 10 mg/dL (7-18); Bilirubin, Total 0.5 mg/dL (0.2-1.0); CO2 26.8 mmol/L (21.0-32.0); CREATININE 0.86 mg/dL (0.55-1.02); Calcium 8.8 mg/dL (8.5-10.1); Chloride 103 mmol/L (98-107); Glucose 171 mg/dL (70-100); Magnesium 1.8 mg/dL (1.8-2.4); Potassium 3.9 mmol/L (3.5-5.1); Sodium 143 mmol/L (136-145); TSH (W/Ref FT4) 1.71 uIU/mL (0.36-3.74); Total Protein 7.4 g/dL (6.4-8.2); Vitamin B12 1266 pg/mL (193-986)
== END 2018-12-29 13:41 ==
LOC: NCHCN 13:21
PROVIDERS: PCP Family Medicine; Visit Provider Family Medicine
DX: F10.11 Alcohol abuse, in remission (principal); R42 Dizziness and giddiness; E03.9 Hypothyroidism, unspecified; K70.30 Alcoholic cirrhosis of liver without ascites
CPT/HCPCS: 80053; 85027; 82607; 83735; 84443; 85610

== ENCOUNTER 2019-01-15 00:19 | Outpatient (CLI) | payer MEDICAID, SELFPAY ==
--- NOTE | 2019-01-15 14:36 | DI.CT_ITS ---
EXAM: CT CHEST WO CLINICAL HISTORY: HEMOPTYSIS R04.2, TOBACCO SMOKER F17.200. TECHNIQUE: CT examination of the chest was performed without contrast administration. COMPARISON: CHEST FOR PULMONARY EMBOLUS from 08/05/2017 FINDINGS: There is a tiny calcified nodule of the left lower lobe. There are scattered 1-4 millimeter in diamet er nodules, which are noncalcified, the largest in the right middle lobe and right lower lobe measuri ng 3-4 millimeters in diameter. Minimal pulmonary and parenchymal scarring noted. No mediastinal or h ilar adenopathy. No pleural effusion. Note is made of splenomegaly. Visualized portions of the liver appear intact. IMPRESSION: No suspicious pulmonary nodule identified. Routine low-dose chest CT recommended at yearly intervals. Note is made of splenomegaly
== END 2019-01-15 00:39 ==
PROVIDERS: PCP Family Medicine; Visit Provider Family Medicine
DX: R04.2 Hemoptysis (principal); F17.200 Nicotine dependence, unspecified, uncomplicated; R16.1 Splenomegaly, not elsewhere classified; R91.8 Other nonspecific abnormal finding of lung field
CPT/HCPCS: 71250

== ENCOUNTER 2019-01-15 08:40 | Emergency (ER) | payer MEDICAID, SELFPAY ==
[2019-01-15 08:43] VITALS: BP 144/90; PULSE 85; RESP 16; TEMP 36.8; O2SAT 98
--- NOTE | 2019-01-15 08:48 | DI.CT_ITS ---
EXAM: CT ABDOMEN PELVIS W CLINICAL HISTORY: abdominal pain mid abdomen and ruq, n/v/d. TECHNIQUE: COMPARISON: CT BRAIN CTA from 10/08/2018 FINDINGS: CT examination of the abdomen and pelvis was performed with bolus infusion of 100 cc of Omnipaque 350 . Images obtained through the lung bases are unremarkable. Hepatic contour is nodular consistent wi th cirrhosis. There is splenomegaly and there are numerous upper abdominal tortuous veins consistent with portal hypertension. Gallbladder has been surgically removed. No biliary dilatation seen. Pa ncreas is unremarkable in appearance. Abdominal aorta is of normal diameter and no major vascular abnormality is seen. No gross abdominal or pelvic adenopathy seen. Adrenals and kidneys are unremarkable. There is no urinary tract calcification or obstruction. There are small fat containing umbilical and left inguinal hernias. Appendix appears normal. No evidence of diverticulitis or bowel obstruction. IMPRESSION: No evidence of acute intra-abdominal process. Hepatic cirrhosis and findings suggesting portal hyper tension.
--- NOTE | 2019-01-15 09:12 | ED.GENADUL_ITS ---
Discharge Plan Disposition Patient Disposition: HOME Discharge Details Chief Complaint: Abd Prob Clinical Impression: Abdominal pain, Chest tightness Primary Care Provider: Grant Lindsey ED Provider: Scot Acevedo Home Meds and New Rx's Prescriptions: Continued loratadine 10 MG tablet,disintegrating 10 mg PO DAILY RF: 0 carvedilol [Coreg] 3.125 MG tablet 6.25 mg PO BID RF: 0 albuterol sulfate [ProAir HFA] 8.5 GM HFA aerosol inhaler 1 - 2 puff Inhalation Q6H PRN RF: 0 fluticasone propion-salmeterol [Advair Diskus] 1 EACH blister with device 1 ea Inhalation BID RF: 0 gabapentin 300 MG capsule 800 mg PO TID RF: 0 cyanocobalamin (vitamin B-12) [Vitamin B-12] 1,000 MCG tablet 1,000 mcg PO DAILY RF: 0 hydroxyzine HCl 25 MG tablet 25 mg PO BID RF: 0 clopidogrel [Plavix] 75 mg Tablet 75 mg PO DAILY RF: 0 lorazepam 0.5 mg Tablet 0.5 mg PO TID PRNRF: 0 metformin 500 mg Tablet 500 mg PO BID RF: 0 pantoprazole 40 mg Tablet,Delayed Release (Dr/Ec) 40 mg PO BID RF: 0 famotidine 20 MG tablet 20 mg PO HS RF: 0 Discharge Instructions Additional Instructions: Please take your medications as prescribed. On review your medications today there were multiple questions as to dosing and if you are still taking certain medications. Be sure to discuss with your doctor. Please contact your primary care physician to arrange follow-up. Return to the ER for any worsening or new concerning symptoms. Referrals: Grant Lindsey [Primary Care Provider] - Discharge Data Discharge Date/Time-TO BE ENTERED AT DEPARTURE: 01/15/19 15:23 Medical Decision Making 915 --58-year-old female with multiple medical problems including history of abdominal hernia, alcohol abuse, question of liver disease in the past, irritable bowel syndrome, GERD, here with right upper abdominal pain worsening over the past week and a half, tender to palpation epigastric, supraumbilical and right upper quadrant with some guarding focally. Plan to check labs including LFTs and lipase. Consider acute life-threatening intra-abdominal surgical process. Plan to obtain CT of the abdomen and pelvis. Morphine 2 mg IV. IVF. Zofran 4mg IV. --Patient noted that she had some chest tightness while having the CT scan. No rash or shortness of breath. She notes that she is been having intermittent chest tightness for some time. Initial troponin was negative. A second delta troponin at 3 hours was performed and negative. CT the abdomen pelvis was interpreted by radiology: IMPRESSION: No evidence of acute intra-abdominal process. Hepatic cirrhosis and findings suggesting portal hypertension. Patient is remained stable here. She has tolerated oral intake and noted she was feeling better. Plan will be to have her follow-up with her primary care physician. Disposition decision was made weighing the risks and benefits of hospitalization versus outpatient treatment, the risk for further decompensation, and the patient's wishes. The patient was stable and requested discharge. Prior to discharge, my usual and customary return precautions were reviewed with the patient - this included follow-up instructions and reason to return to the emergency department if condition worsens, does not improve as expected, or other new concerns arise. Lab Data Lab results reviewed: Yes I reviewed the patient's lab results. HPI General Mode of arrival: ambulatory . Date/Time Provider Initiated Documentation: 01/15/19 08:46 . Limitations to Documentation: no limitations . Information obtained by: patient . HPI Narrative: 58-year-old female with hi story of alcohol abuse, asthma, anxiety, bipolar, depression, diabetes, GERD, hypertension, hyperlipidemia, abdominal hernia, irritable bowel syndrome, here with chief complaint of abdominal pain. Patient notes she is had right upper abdomen and mid abdominal pain for the past 1/2 weeks. Pain is been persistent and worsening. Now severe. Patient notes she has chronic intermittent nausea and vomiting especially after eating. Patient denies bright red blood per rectum and melena. Related Data Home Medications Medication Instructions Recorded Confirmed fluticasone propion-salmeterol 1 ea INHALATION BID 08/31/12 01/15/19 [Advair Diskus] gabapentin 800 mg PO TID 08/31/12 01/15/19 albuterol sulfate [ProAir HFA] 1 - 2 puff INHALATION Q6H PRN 05/04/14 01/15/19 inhaler carvedilol [Coreg] 6.25 mg PO BID tab-cap 05/04/14 10/04/18 loratadine 10 mg PO DAILY 05/04/14 01/15/19 cyanocobalamin (vitamin B-12) 1,000 mcg PO DAILY 10/16/16 01/15/19 [Vitamin B-12] hydroxyzine HCl 25 mg PO BID 10/16/16 01/15/19 clopidogrel [Plavix] 75 mg PO DAILY 12/24/17 01/15/19 lorazepam 0.5 mg PO TID PRN 12/24/17 01/15/19 famotidine 20 mg PO HS 04/16/18 01/15/19 metformin 500 mg PO BID 04/16/18 01/15/19 pantoprazole 40 mg PO BID 04/16/18 01/15/19 Allergies Allergy/AdvReac Type Severity Reaction Status Date / Time amoxicillin trihydrate Allergy rash/gi Unverified 10/04/18 10:46 [From Augmentin] upset bacitracin Allergy Skin Rash Unverified 10/04/18 10:46 [From Neosporin ([id number])] bacitracin zinc Allergy Skin Rash Unverified 10/04/18 10:46 [From Neosporin ([id number])] neomycin sulfate Allergy Skin Rash Unverified 10/04/18 10:46 [From Neosporin ([id number])] polymyxin B Allergy Skin Rash Unverified 10/04/18 10:46 [From Neosporin ([id number])] potassium clavulanate Allergy rash/gi Unverified 10/04/18 10:46 [From Augmentin] upset aspirin AdvReac Nausea Unverified 10/04/18 10:46 lactose AdvReac gi upset Unverified 10/04/18 10:46 General Stated Complaint: Abd Prob ALLYSON: 3 Review of Systems Review of Systems ROS Unobtainable: All systems reviewed & are unremarkable except as noted in HPI and below Cardiovascular Cardiovascular: Denies dyspnea Respiratory Respiratory: Denies cough and Denies dyspnea Gastrointestinal Gastrointestinal: Reports as per HPI, Reports abdominal pain, Denies hematochezia, Denies coffee ground emesis, Reports nausea and Reports vomiting [facility] Medical History Anxiety (Chronic) Asthma (Chronic) Depression (Chronic) Diabetes (Chronic) GERD (gastroesophageal reflux disease) (Chronic) HTN (hypertension) (Chronic) Hyperlipemia (Acute) Migraine (Chronic) Surgical History History of hysterectomy (Chronic) History of thyroidectomy (Chronic) Hx of cholecystectomy (Chronic) Social History Smoking/Tobacco Use Status: Current every day Tobacco Type: cigarettes Alcohol Intake: never Drug use: Never Substance use type: does not use Do you feel safe at home: Yes Do you feel safe in your relationship?: Yes Exam Const General: cooperative and no acute distress HENMT Head: normocephalic Mouth: moist mucous membranes Eyes Conjunctivae: normal conjunctivae Sclera: normal sclerae EOM: EOM intact bilaterally Neck Neck: trachea midline Resp Auscultation: clear to auscultation bilaterally, no rales, no rhonchi and no wheezes Cardio Jugular venous pressure: no JVD Rate: regular rate and not tachycardic Rhythm: regular rhythm GI Palpation: soft, not firm, guarding, no masses, not rigid, tender in the epigastrum and in the RUQ; with no rebound tenderness and Rovsing's sign negative and No ascites Auscultation: hypoactive bowel sounds Skin General skin exam: no rashes or lesions noted Neuro General: alert, awake, oriented x3 and tone normal Extrem General: no calf tenderness and no edema Psych Appearance: grossly normal Mental Status: mental status grossly normal Speech and Movement: speech and movement normal Course Vital Signs Vital signs: Vital Signs Temperature 36.8 C 01/15/19 08:43 Pulse 85 01/15/19 08:43 Respiratory Rate 16 01/15/19 08:43 Blood Pressure 144/90 H 01/15/19 08:43 Pulse Oximetry 98 01/15/19 08:43 Temperature 36.8 C 01/15/19 08:43 Temperature Source Temporal Artery Scan 01/15/19 08:43 Pulse 85 01/15/19 08:43 Respiratory Rate 16 01/15/19 08:43 Respiratory Effort 01/15/19 08:52 Blood Pressure 144/90 H 01/15/19 08:43 Blood Pressure Position Sitting 01/15/19 08:43 Pulse Oximetry 98 01/15/19 08:43 Oxygen Delivery Method Room Air 01/15/19 08:43 Oxygen Flow Rate 0 01/15/19 08:43 Pain Level 10 01/15/19 08:52
[2019-01-15] MEDS: Lactated Ringers 1,000 ML 125 ML IV (09:17)
[2019-01-15] MEDS: Normal Saline Flush 10 ML SYR IVP (09:18)
[2019-01-15 09:21] LABS: Abs Immature Grans 0.03 k/cumm (0.0-0.09); Absolute Basophil Count 0.02 k/cumm (0.0-0.2); Absolute Eosinophil Count 0.19 k/cumm (0.0-0.7); Absolute Lymphocyte Count 2.36 k/cumm (1.2-3.4); Absolute Monocyte Count 0.45 k/cumm (0.11-0.7); Absolute Neutrophil Count 3.08 k/cumm (1.2-6.7); Basophils % 0.3; Eosinophils % 3.1; HCT 40.8 % (36.0-46.0); Immature Grans % 0.5; Lymphocytes % 38.5; Mean Corp. HGB Concentration 34.3 g/dL (32.0-36.0); Mean Corpuscular Hemoglobin 28.7 pg (27.0-33.0); Mean Corpuscular Volume 83.8 fL (80-95); Mean Platelet Volume 9.6 fL (8.0-11.0); Monocytes % 7.3; Neutrophils % 50.3; Platelet Count 139 x1000/uL (130-400); RBC 4.87 m/cumm (4.00-5.20); White Blood Cell Count 6.13 k/cumm (4.4-10.8)
[2019-01-15 09:25] LABS: Bilirubin Negative (Negative); Blood Negative (Negative); Clarity Clear (Clear); Glucose Negative (Negative); Ketones Negative (Negative); Leukocyte Esterase Negative (Negative); Nitrite Negative (Negative); Urobilinogen 0.2 EU/dL (Up TO 0.2); pH 5.5 (5-8)
[2019-01-15 09:33] LABS: ALT 20 U/L (14-59); AST 27 U/L (15-37); Albumin 4.2 g/dL (3.4-5.0); Alkaline Phosphatase 131 U/L (46-116); Anion Gap 10.3 mmol/L (3-11); BUN 8 mg/dL (7-18); Bilirubin, Total 0.6 mg/dL (0.2-1.0); CO2 26.7 mmol/L (21.0-32.0); CREATININE 0.75 mg/dL (0.55-1.02); Calcium 8.9 mg/dL (8.5-10.1); Chloride 104 mmol/L (98-107); Glucose 87 mg/dL (70-100); Lipase 201 U/L (73-393); Potassium 4.8 mmol/L (3.5-5.1); Sodium 141 mmol/L (136-145); Total Protein 7.8 g/dL (6.4-8.2)
[2019-01-15] MEDS: Omnipaque 350 MG/ML 100 ML BTL IV (09:58)
[2019-01-15 10:50] LABS: Troponin I < 0.05 ng/mL (0.00-0.06)
[2019-01-15 13:34] VITALS: BP 128/79; PULSE 74
[2019-01-15 14:06] LABS: Troponin I < 0.05 ng/mL (0.00-0.06)
[2019-01-15 14:57] VITALS: BP 123/91; PULSE 74; TEMP 36.3
[2019-01-15 15:21] VITALS: BP 123/91; PULSE 74; RESP 16; O2SAT 98
== END 2019-01-15 15:23 | disposition home or self-care (01) ==
PROVIDERS: Emergency Provider Student in an Organized Health Care Education/Training Program; PCP Family Medicine
DX: R10.11 Right upper quadrant pain (principal); R07.9 Chest pain, unspecified
CPT/HCPCS: 36415; 80053; 83690; 96361; 96374; 99285; 74177; 81003; 84484; 85025; 99284; J3490

== ENCOUNTER 2019-02-10 02:37 | Outpatient (CLI) | payer MEDICAID, SELFPAY ==
--- NOTE | 2019-02-10 10:16 | PFT_ITS ---
FEBRUARY 10, 2019 REQUESTING PROVIDER: Dr. Grant Lindsey SPIROMETRY: Shows no evidence of obstructive airways disease. No bronchodilator response. LUNG VOLUME: Shows no evidence of restriction. DIFFUSION CAPACITY: Normal. AIRWAYS RESISTANCE: Normal. IMPRESSION: Normal pulmonary function studies. Clinical correlation is recommended. When compared to previous test of 07/09/10 the patient has a 110 cc. improvement in FVC. FEV1 has remained stable.
[2019-02-10] MEDS: Inhaler, Assist Device 1 EACH MC (10:39)
[2019-02-10] MEDS: Albuterol HFA 18 GM 200 PUFF INH IH (10:40)
== END 2019-02-10 02:57 ==
PROVIDERS: PCP Family Medicine; Visit Provider Family Medicine
DX: J44.9 Chronic obstructive pulmonary disease, unspecified (principal); R06.00 Dyspnea, unspecified; F17.210 Nicotine dependence, cigarettes, uncomplicated
CPT/HCPCS: 94060; 94150; 94726; 94729

== ENCOUNTER 2019-03-04 02:13 | Outpatient (CLI) | payer MEDICAID, SELFPAY ==
--- NOTE | 2019-03-04 07:38 | DI.US_ITS ---
EXAM: US PELVIS TRANSVAGINAL CLINICAL HISTORY: ABNORMAL UTERINE BLEEDING, N93.9, INTERMITTENT SPOTTING TECHNIQUE: Ultrasound performed using standard protocol. COMPARISON: No previous for comparison. FINDINGS: The uterus was not visualized during the examination. The ovaries were not visualized on this examina tion. Please correlate with patient's past surgical history. No pelvic mass is identified. No free fluid or hydronephrosis is present. IMPRESSION: Nonvisualization of the uterus and ovaries. This is suggestive of prior hysterectomy and bilateral o ophorectomy. Please correlate with the patient's past medical and surgical history.
== END 2019-03-04 02:33 ==
PROVIDERS: PCP Family Medicine; Visit Provider Family Medicine
DX: N93.8 Other specified abnormal uterine and vaginal bleeding (principal)
CPT/HCPCS: 76830; 76856

== ENCOUNTER 2019-04-22 17:44 | Emergency (ER) | payer MEDICAID, SELFPAY ==
[2019-04-22 17:46] VITALS: BP 131/87; PULSE 92; RESP 20; TEMP 36; O2SAT 92
[2019-04-22 17:53] VITALS: RESP 20
--- NOTE | 2019-04-22 18:20 | ED.GENADUL_ITS ---
Discharge Plan Disposition Patient Disposition: HOME Condition: Stable Discharge Details Chief Complaint: Anxiety Clinical Impression: Syncope, Abdominal pain Primary Care Provider: Grant Lindsey ED Provider: Logan Anthony Home Meds and New Rx's Prescriptions: No Action loratadine 10 MG tablet,disintegrating 10 mg PO DAILY RF: 0 carvedilol [Coreg] 3.125 MG tablet 6.25 mg PO BID RF: 0 albuterol sulfate [ProAir HFA] 8.5 GM HFA aerosol inhaler 1 - 2 puff Inhalation Q6H PRN RF: 0 fluticasone propion-salmeterol [Advair Diskus] 1 EACH blister with device 1 ea Inhalation BID RF: 0 gabapentin 300 MG capsule 800 mg PO TID RF: 0 cyanocobalamin (vitamin B-12) [Vitamin B-12] 1,000 MCG tablet 1,000 mcg PO DAILY RF: 0 hydroxyzine HCl 25 MG tablet 25 mg PO BID RF: 0 clopidogrel [Plavix] 75 mg Tablet 75 mg PO DAILY RF: 0 lorazepam 0.5 mg Tablet 0.5 mg PO TID PRNRF: 0 metformin 500 mg Tablet 500 mg PO BID RF: 0 pantoprazole 40 mg Tablet,Delayed Release (Dr/Ec) 40 mg PO BID RF: 0 famotidine 20 MG tablet 20 mg PO HS RF: 0 Discharge Instructions Instructions: Chest Pain (ED), Near Syncope (ED) Additional Instructions: Please continue to drink plenty of fluids. Avoid stressful situations. If you notice any worsening of your symptoms, or any new symptoms such as vomiting, diarrhea, fever, chills, shortness of breath, chest pain, numbness, weakness, or fainting , please return immediately to the emergency department for reevaluation. Please follow up with your primary care provider as soon as possible for reassessment and reevaluation. As always, it was a pleasure participating in your medical care today. Referrals: Grant Lindsey [Primary Care Provider] - Medical Decision Making <Cj Schneider MD - Last Filed: 04/22/19 19:39> 58 yo female with hx of former alcohol abuse, anxiety, dm, htn, who comes in with cc of abdominal pain. She was apparently over at a neighbors house when she became upset and then felt lightheaded and next thing she knows she was on the ground, unclear if she had any seizure activity, no tongue biting or urinary incontinence. She states she has had abdominal pain all day similar to her pain due to her prior hernia pain. She also noted some chest pain on the left side that has since resolved. She is speaking in full sentences without focal neuro deficits. She does have tenderness in the upper and lower abdomen without guarding. Unclear etiology of her symptoms, could be psychogenic mediated but will evaluate for more concerning pathology, ecg unremarkable, will send troponin, heart score is 3. No hypoxia, tachycardia or evidence of dvton exam so doubt PE. Will obtain CTA chest/abd/pelvis to eval for dissection, pna, hernia among other pathology and monitor and also obtain CT head for her loss of consciousness and possible seizure pt's head ct and lab work negative, IV stopped working in CT so had to come back to have new one placed. Pt will be signed out to oncoming provider pending cta results and delta troponin Differential Diagnosis Differential Diagnosis: syncope, seizure, dissection, acs Medical Records Medical records reviewed: Yes I reviewed the patient's medical records. Imaging Data Radiologic Study: Attestation: I personally reviewed and interpreted this imaging study as follows: Imaging: CT Scan Radiologist's impression: IMPRESSION: No evidence for acute transcortical infarct, acute intracranial hemorrhage, or mass effect ECG Data Attestation: I personally reviewed and interpreted this ECG (s) as follows: Prior ECG tracings: not available for review Interpretation: sinus rhythm, rate of 89, pr 192, qtc 457 <Logan Anthony DO - Last Filed: 04/22/19 22:43> Case was signed out to me by my colleague Dr. Cj Schneider. Please refer to his initial documentation for HPI, physical exam and assessment and plan. Pending imaging work-up and repeat troponin at time of signout. Patient CT scans have returned, no acute process, no evidence of dissection or pulmonary embolism, no evidence of significant mass aneurysm or intracranial abnormality per virtual radiology. Repeat serial troponins were unremarkable, laboratory work-up benign. Additionally EKG shows no significant acute changes or abnormalities especially in comparison with EKG on 01/15/2019. potassium and sodium slightly low but not requiring any IV correction. Her sodium is likely to correct with the fluids given here. Lactate 1.6. Recommended increase oral potassium intake at home. Lipase proBNP and alcohol level normal. CT head negative. After fluids patient felt much better, she has no chest pain. She feels that her symptoms are likely secondary to stress which I would agree with. [place] syncope rule is in the low risk category. No indication for additional inpatient work-up. With no evidence of ACS, negative serial troponins, negative CTA, I feel she can be safely discharged home as there is no evidence of acute life-threatening pathology at this time. Recommend close follow-up with her PCP. Discussed red flags which to return. I have extensively reviewed the treatment plan and discharge instructions with the patient. I have addressed all patient concerns at this time. The patient was made aware of what symptoms to monitor for that would warrant a return to the emergency department. Discussed the plan with the patient, they demonstrate verbal understanding and agreement with our assessment and plan at this time. FINDINGS: Pulmonary arteries: No acute pulmonary embolus. Aorta: No aneurysm or dissection of the thoracic aorta. Lungs: Unremarkable. No consolidation. No masses. Pleural space: Unremarkable. No pneumothorax. No pleural effusion. Heart: Unremarkable. No cardiomegaly. No pericardial effusion. Lymph nodes: Unremarkable. No enlarged lymph nodes. Bones/joints: Unremarkable. No acute fracture. Soft tissues: Unremarkable. IMPRESSION: 1. No aneurysm or dissection of the thoracic aorta. 2. No acute pulmonary embolus. FINDINGS: Aorta: No aneurysm or dissection of the abdominal aorta. Atherosclerotic disease of the abdominal aorta. Celiac trunk and mesenteric arteries: No occlusion or significant stenosis. Renal arteries: No occlusion or significant stenosis. Right iliac arteries: No occlusion or significant stenosis. Left iliac arteries: No occlusion or significant stenosis. Liver: Hepatic steatosis. Gallbladder and bile ducts: Cholecystectomy. Pancreas: Unremarkable. No mass. No ductal dilation. Spleen: Unremarkable. No splenomegaly. Adrenals: Unremarkable. No mass. Kidneys and ureters: Unremarkable. No solid mass. No hydronephrosis. Stomach and bowel: Unremarkable. No obstruction. No mucosal thickening. Appendix: A normal appendix is identified. Intraperitoneal space: Unremarkable. No free air. No significant fluid collection. Lymph nodes: Unremarkable. No enlarged lymph nodes. Bladder: Unremarkable. No mass. Reproductive: Hysterectomy. Bones/joints: No acute fracture. No dislocation. Soft tissues: Unremarkable. IMPRESSION: No aneurysm or dissection of the abdominal aorta. Dictated and Authenticated by: Roly Vasquez MD 04/22/2019 8:33 PM Eastern Time ([place] & [place]) FINDINGS: Brain: No evidence for acute transcortical infarct. No mass effect or midline shift. No extra-axial collection. No acute intracranial hemorrhage. Basal cisterns are patent. Ventricles: Normal. No ventriculomegaly. Bones/joints: Unremarkable. No acute fracture. Sinuses: Visualized sinuses are unremarkable. No fluid levels. Mastoid air cells: Visualized mastoid air cells are well aerated. Soft tissues: Unremarkable. IMPRESSION: No evidence for acute transcortical infarct, acute intracranial hemorrhage, or mass effect. Thank you for allowing us to participate in the care of your patient. Dictated and Authenticated by: Roly Vasquez MD 04/22/2019 7:24 PM Eastern Time ([place] & [place]) HPI <Cj Schneider MD - Last Filed: 04/22/19 19:39> General Mode of arrival: EMS . Date/Time Provider Initiated Documentation: 04/22/19 18:10 . Limitations to Documentation: no limitations . Information obtained by: patient . History of Present Illness 58 year old F presents to the emergency department with the chief complaint of abdominal pain, described as moderate, and is localized to the abdomen. Patient started experiencing this day(s) (1) and it has been constant. No relieving factors improve symptom(s), No exacerbating factors reported . Patient notes other (syncope, chest pain). Patient did receive the following treatments prior to arrival, none Related Data Home Medications Medication Instructions Recorded Confirmed fluticasone propion-salmeterol 1 ea INHALATION BID 08/31/12 04/22/19 [Advair Diskus] gabapentin 800 mg PO TID 08/31/12 04/22/19 albuterol sulfate [ProAir HFA] 1 - 2 puff INHALATION Q6H PRN 05/04/14 04/22/19 inhaler carvedilol [Coreg] 6.25 mg PO BID tab-cap 05/04/14 04/22/19 loratadine 10 mg PO DAILY 05/04/14 04/22/19 cyanocobalamin (vitamin B-12) 1,000 mcg PO DAILY 10/16/16 04/22/19 [Vitamin B-12] hydroxyzine HCl 25 mg PO BID 10/16/16 04/22/19 clopidogrel [Plavix] 75 mg PO DAILY 12/24/17 04/22/19 lorazepam 0.5 mg PO TID PRN 12/24/17 04/22/19 famotidine 20 mg PO HS 04/16/18 04/22/19 metformin 500 mg PO BID 04/16/18 04/22/19 pantoprazole 40 mg PO BID 04/16/18 04/22/19 Allergies Allergy/AdvReac Type Severity Reaction Status Date / Time amoxicillin trihydrate Allergy rash/gi Unverified 04/22/19 17:50 [From Augmentin] upset bacitracin Allergy Skin Rash Unverified 04/22/19 17:50 [From Neosporin ([id number])] bacitracin zinc Allergy Skin Rash Unverified 04/22/19 17:50 [From Neosporin ([id number])] neomycin sulfate Allergy Skin Rash Unverified 04/22/19 17:50 [From Neosporin ([id number])] polymyxin B Allergy Skin Rash Unverified 04/22/19 17:50 [From Neosporin ([id number])] potassium clavulanate Allergy rash/gi Unverified 04/22/19 17:50 [From Augmentin] upset aspirin AdvReac Nausea Unverified 04/22/19 17:50 lactose AdvReac gi upset Unverified 04/22/19 17:50 General Stated Complaint: Anxiety [place]: 3 Review of Systems <Cj Schneider MD - Last Filed: 04/22/19 19:39> All systems reviewed & are unremarkable except as noted in HPI and below Constitutional Constitutional: Denies chills, Denies fever(s) and Denies weakness Cardiovascular Cardiovascular: Denies dyspnea Respiratory Respiratory: Denies cough and Denies dyspnea Gastrointestinal Gastrointestinal: Denies vomiting Musculoskeletal Musculoskeletal: Denies joint swelling Neurologic Neurologic: Denies weakness PFS <Cj Schneider MD - Last Filed: 04/22/19 19:39> Social History Smoking/Tobacco Use Status: Current every day Tobacco Type: cigarettes Alcohol Intake: never Drug use: Never Substance use type: does not use Do you feel safe at home: Yes Do you feel safe in your relationship?: Yes Exam <Cj Schneider MD - Last Filed: 04/22/19 19:39> Const General: no acute distress Orientation: alert HENAZ Head: normal to inspection Ears: external ears normal General nose exam: external nose normal Mouth: moist mucous membranes Eyes General: appearance normal, both eyes and all related structures Neck Neck: normal visual inspection Resp Effort & Inspection: normal respiratory effort and able to speak in complete sentences Cardio Rate: regular rate GI Palpation: soft and tender Skin General skin exam: no rashes or lesions noted Neuro General: alert and oriented x3 Extrem General: normal to inspection Psych Mental Status: mental status grossly normal Course <Cj Schneider MD - Last Filed: 04/22/19 19:39> Vital Signs Vital signs: Vital Signs Temperature 36 C L 04/22/19 17:46 Pulse 92 H 04/22/19 17:46 Respiratory Rate 20 04/22/19 17:46 Blood Pressure 131/87 04/22/19 17:46 Pulse Oximetry 92 L 04/22/19 17:46 Temperature 36 C L 04/22/19 17:46 Temperature Source Temporal Artery Scan 04/22/19 17:46 Pulse 92 H 04/22/19 17:46 Respiratory Rate 20 04/22/19 17:53 Respiratory Effort Non-Labored 04/22/19 17:53 Respiratory Depth Normal 04/22/19 17:53 Respiratory Pattern Normal 04/22/19 17:53 Blood Pressure 131/87 04/22/19 17:46 Blood Pressure Position Sitting 04/22/19 17:46 Pulse Oximetry 92 L 04/22/19 17:46 Oxygen Delivery Method Room Air 04/22/19 17:46 Oxygen Flow Rate 0 04/22/19 17:46 Pain Level 0 04/22/19 17:46 Sign Out <Cj Schneider MD - Last Filed: 04/22/19 19:39> Sign Out Data: Sign Out Comment: follow up on cta and delta troponin likely d/c home if negative Last updated by Cj Schneider MD at 04/22/19 19:56
[2019-04-22 18:33] LABS: Abs Immature Grans 0.06 k/cumm (0.0-0.09); Absolute Basophil Count 0.02 k/cumm (0.0-0.2); Absolute Eosinophil Count 0.18 k/cumm (0.0-0.7); Absolute Neutrophil Count 6.14 k/cumm (1.2-6.7); BE (Venous) 3.1 mmol/L (-3-3); Basophils % 0.2; HCO3 (Venous) 28 mmol/L (22-28); HCT 42.4 % (36.0-46.0); HGB 14.5 g/dL (12.0-15.5); Immature Grans % 0.7 %; Mean Corp. HGB Concentration 34.2 g/dL (32.0-36.0); Mean Corpuscular Volume 84.8 fL (80-95); Mean Platelet Volume 9.5 fL (8.0-11.0); Monocytes % 5.4; Neutrophils % 66.7; O2 Sat (Venous) 74 % (70-80); Platelet Count 132 x1000/uL (130-400); TCO2 (Venous) 25 mmol/L (22-29); pCO2 (Venous) 48 mm/Hg (34-47); pH (Venous) 7.38 (7.35-7.45); pO2 (Venous) 36 mm/Hg (28-44)
[2019-04-22 18:35] LABS: Lactate 1.6 mmol/L (0.6-1.4)
[2019-04-22 18:46] LABS: INR 1.1 (0.9-1.1); PTT Activated 18.6 sec (21.0-31.4)
[2019-04-22 18:50] LABS: ALT 20 U/L (14-59); AST 16 U/L (15-37); Albumin 3.9 g/dL (3.4-5.0); Alkaline Phosphatase 113 U/L (46-116); Anion Gap 8.4 mmol/L (3-11); BUN 13 mg/dL (7-18); Bilirubin, Total 0.5 mg/dL (0.2-1.0); CO2 27.6 mmol/L (21.0-32.0); Calcium 8.9 mg/dL (8.5-10.1); Chloride 94 mmol/L (98-107); Glucose 114 mg/dL (74-106); Lipase 157 U/L (73-393); Potassium 3.3 mmol/L (3.5-5.1); Sodium 130 mmol/L (136-145); Total Protein 7.1 g/dL (6.4-8.2)
--- NOTE | 2019-04-22 19:14 | DI.CT_ITS ---
EXAM: CT HEAD WO CLINICAL HISTORY: altered mental status COMPARISON: CT BRAIN CTA from 10/08/2018 FINDINGS: Noncontrast cranial CT was performed. There is cerebral atrophy predominantly bifrontal. No evidenc e of acute intracranial hemorrhage, mass effect or midline shift. The orbital and temporal bone stru ctures appear intact. Mastoid air cells and paranasal sinuses are clear as visualized. IMPRESSION: No evidence of acute intracranial abnormality.
[2019-04-22 19:19] LABS: ETHANOL BLOOD < 3.0 mg/dL (<3); Troponin I < 0.05 ng/Ml (<0.06)
--- NOTE | 2019-04-22 19:24 | DI.VRAD_ITS ---
PROCEDURE INFORMATION: Exam: CT Head Without Contrast Exam date and time: 04/22/2019 7:14 PM Age: 58 years old Clinical indication: Altered mental status/memory loss TECHNIQUE: Imaging protocol: Computed tomography of the head without contrast. Radiation optimization: All CT scans at this facility use at least one of these dose optimization techniques: automated exposure control; mA and/or kV adjustment per patient size (includes targeted exams where dose is matched to clinical indication); or iterative reconstruction. COMPARISON: CT Head^HEAD ROUTINE (Adult) 04/20/2018 1:52 PM FINDINGS: Brain: No evidence for acute transcortical infarct. No mass effect or midline shift. No extra-axial collection. No acute intracranial hemorrhage. Basal cisterns are patent. Ventricles: Normal. No ventriculomegaly. Bones/joints: Unremarkable. No acute fracture. Sinuses: Visualized sinuses are unremarkable. No fluid levels. Mastoid air cells: Visualized mastoid air cells are well aerated. Soft tissues: Unremarkable. IMPRESSION: No evidence for acute transcortical infarct, acute intracranial hemorrhage, or mass effect. Dictated and Authenticated by: Roly Vasquez MD. Ordering:NANCY Corona MD
[2019-04-22 19:30] VITALS: BP 138/93; PULSE 92; RESP 19; O2SAT 96
[2019-04-22] MEDS: LORazepam 2 MG/ML VIAL 1 MG IVP (19:46)
[2019-04-22] MEDS: Omnipaque 350 MG/ML 100 ML BTL IJ (19:50)
--- NOTE | 2019-04-22 19:55 | DI.CT_ITS ---
EXAM: CT THORAX ABD/PEL CTA CLINICAL HISTORY: chest/abdominal pain TECHNIQUE: CT angiography of the chest, abdomen and pelvis was performed with a bolus infusion of 10 0 cc of Omnipaque 350. COMPARISON: CT ABDOMEN PELVIS W from 01/15/2019 FINDINGS: There is no evidence of pulmonary embolic disease. Thoracic aorta is normal in appearance with no aneurysm or dissection. Lungs are clear. No pleural effusion or pneumothorax. Note is made of hepatic steatosis and prior cholecystectomy. Spleen is at the upper limits of normal in size. Pancreas is grossly unremarkable. No biliary dilatation. Adrenals and kidneys are unrema rkable. No urinary tract calcification or obstruction. Appendix is normal. No focal bowel patholog y. Small fat containing ventral hernia noted superior to the umbilicus, maximum diameter 34 millimet ers, small fat containing umbilical hernia also noted. Abdominal aorta is of normal diameter and major branches appear intact. IMPRESSION: No evidence of acute process. Hepatic steatosis noted. Question mild splenomegaly. Ventral hernia not ed, fat containing.
[2019-04-22] MEDS: Normal Saline 1,000 ML 1000 ML IV (20:00)
--- NOTE | 2019-04-22 20:35 | DI.VRAD_ITS ---
PROCEDURE INFORMATION: Exam: CT Angiography Chest With Contrast Exam date and time: 04/22/2019 7:50 PM Age: 58 years old Clinical indication: Chest pain; Type not specified; Abdominal pain; Generalized TECHNIQUE: Imaging protocol: Computed tomographic angiography of the chest with intravenous contrast. 3D rendering: MIP and/or 3D reconstructed images were created by the technologist. Radiation optimization: All CT scans at this facility use at least one of these dose optimization techniques: automated exposure control; mA and/or kV adjustment per patient size (includes targeted exams where dose is matched to clinical indication); or iterative reconstruction. Contrast material: OMNIPAQUE 350; Contrast volume: 100 ml; Contrast route: IV; COMPARISON: CTA THORAX/ABDOMEN/PELVIS 06/27/2017 3:24 AM FINDINGS: Pulmonary arteries: No acute pulmonary embolus. Aorta: No aneurysm or dissection of the thoracic aorta. Lungs: Unremarkable. No consolidation. No masses. Pleural space: Unremarkable. No pneumothorax. No pleural effusion. Heart: Unremarkable. No cardiomegaly. No pericardial effusion. Lymph nodes: Unremarkable. No enlarged lymph nodes. Bones/joints: Unremarkable. No acute fracture. Soft tissues: Unremarkable. IMPRESSION: 1. No aneurysm or dissection of the thoracic aorta. 2. No acute pulmonary embolus. PROCEDURE INFORMATION: Exam: CT Angiography Abdomen and Pelvis With Contrast Exam date and time: 04/22/2019 7:50 PM Age: 58 years old Clinical indication: Chest pain; Type not specified; Abdominal pain; Generalized TECHNIQUE: Imaging protocol: Computed tomographic angiography of the abdomen and pelvis with intravenous contrast material. 3D rendering: MIP and/or 3D reconstructed images were created by the technologist. Contrast material: OMNIPAQUE 350; Contrast volume: 100 ml; Contrast route: IV; COMPARISON: CTA THORAX/ABDOMEN/PELVIS 06/27/2017 3:24 AM FINDINGS: Aorta: No aneurysm or dissection of the abdominal aorta. Atherosclerotic disease of the abdominal aorta. Celiac trunk and mesenteric arteries: No occlusion or significant stenosis. Renal arteries: No occlusion or significant stenosis. Right iliac arteries: No occlusion or significant stenosis. Left iliac arteries: No occlusion or significant stenosis. Liver: Hepatic steatosis. Gallbladder and bile ducts: Cholecystectomy. Pancreas: Unremarkable. No mass. No ductal dilation. Spleen: Unremarkable. No splenomegaly. Adrenals: Unremarkable. No mass. Kidneys and ureters: Unremarkable. No solid mass. No hydronephrosis. Stomach and bowel: Unremarkable. No obstruction. No mucosal thickening. Appendix: A normal appendix is identified. Intraperitoneal space: Unremarkable. No free air. No significant fluid collection. Lymph nodes: Unremarkable. No enlarged lymph nodes. Bladder: Unremarkable. No mass. Reproductive: Hysterectomy. Bones/joints: No acute fracture. No dislocation. Soft tissues: Unremarkable. IMPRESSION: No aneurysm or dissection of the abdominal aorta. Dictated and Authenticated by: Roly Vasquez MD. Ordering:NANCY Corona MD
[2019-04-22 21:36] LABS: Troponin I < 0.05 ng/Ml (<0.06)
[2019-04-22 22:23] VITALS: BP 132/99; PULSE 97; RESP 18; O2SAT 98
[2019-04-22 22:34] VITALS: TEMP 36.7
== END 2019-04-22 22:40 | disposition home or self-care (01) ==
PROVIDERS: Emergency Medicine; Emergency Provider Student in an Organized Health Care Education/Training Program; PCP Family Medicine
DX: F41.9 Anxiety disorder, unspecified (principal); R55 Syncope and collapse; R10.84 Generalized abdominal pain; E11.9 Type 2 diabetes mellitus without complications; Z79.84 Long term (current) use of oral hypoglycemic drugs; I10 Essential (primary) hypertension
CPT/HCPCS: 36415; 71275; 74177; 80053; 82805; 83690; 93005; 96361; 96374; 99285; 70450; 80320; 83605; 84484; 85025; 85610; 85730; 93010; 99284; J2060; J3490

== ENCOUNTER 2019-05-07 12:15 | Emergency (ER) | payer MEDICAID, SELFPAY ==
[2019-05-07 12:20] VITALS: BP 165/74; PULSE 85; RESP 20; TEMP 36.4; O2SAT 97
[2019-05-07] MEDS: Lactated Ringers 1,000 ML 1000 ML IV (12:49)
[2019-05-07] MEDS: Ketorolac 15 MG/ML VIAL IVP (12:53)
[2019-05-07 12:57] LABS: Abs Immature Grans 0.02 k/cumm (0.0-0.09); Absolute Basophil Count 0.02 k/cumm (0.0-0.2); Absolute Eosinophil Count 0.19 k/cumm (0.0-0.7); Absolute Lymphocyte Count 2.68 k/cumm (1.2-3.4); Absolute Monocyte Count 0.44 k/cumm (0.11-0.7); Absolute Neutrophil Count 3.85 k/cumm (1.2-6.7); Basophils % 0.3; Eosinophils % 2.6; HCT 42.5 % (36.0-46.0); HGB 14.6 g/dL (12.0-15.5); Immature Grans % 0.3 %; Lymphocytes % 37.2; Mean Corp. HGB Concentration 34.4 g/dL (32.0-36.0); Mean Corpuscular Hemoglobin 29.1 pg (27.0-33.0); Mean Corpuscular Volume 84.8 fL (80-95); Mean Platelet Volume 9.7 fL (8.0-11.0); Monocytes % 6.1; Neutrophils % 53.5; Platelet Count 161 x1000/uL (130-400); RBC 5.01 m/cumm (4.00-5.20)
--- NOTE | 2019-05-07 13:02 | ED.GENADUL_ITS ---
Discharge Plan Disposition Patient Disposition: HOME Condition: Stable Discharge Details Chief Complaint: Abd Prob Clinical Impression: Abdominal pain Primary Care Provider: Grant Lindsey ED Provider: Ramón Crawford Home Meds and New Rx's Prescriptions: No Action loratadine 10 MG tablet,disintegrating 10 mg PO DAILY RF: 0 carvedilol [Coreg] 3.125 MG tablet 6.25 mg PO BID RF: 0 albuterol sulfate [ProAir HFA] 8.5 GM HFA aerosol inhaler 1 - 2 puff Inhalation Q6H PRN RF: 0 fluticasone propion-salmeterol [Advair Diskus] 1 EACH blister with device 1 ea Inhalation BID RF: 0 gabapentin 300 MG capsule 800 mg PO TID RF: 0 cyanocobalamin (vitamin B-12) [Vitamin B-12] 1,000 MCG tablet 1,000 mcg PO DAILY RF: 0 hydroxyzine HCl 25 MG tablet 25 mg PO BID RF: 0 clopidogrel [Plavix] 75 mg Tablet 75 mg PO DAILY RF: 0 lorazepam 0.5 mg Tablet 0.5 mg PO TID PRNRF: 0 metformin 500 mg Tablet 1,000 mg PO BID RF: 0 pantoprazole 40 mg Tablet,Delayed Release (Dr/Ec) 40 mg PO BID RF: 0 famotidine 20 MG tablet 20 mg PO HS RF: 0 Discharge Instructions Instructions: Abdominal Pain (ED) Additional Instructions: 1. Drink plenty of fluids. 2. Continue all medications as prescribed. 3. Acetaminophen 1000mg every 4 hours (up to 5 time a day) and/or ibuprofen 600mg every 6 hours as needed for fever or pain. 4. Follow-up with your doctor for reevaluation and possible pain management. Return to the Emergency Department (ED) if your condition worsens, does not improve as expected, or for ANY other concerns. Specifically, return if you have new or uncontrolled pain, worsening fever, difficulty breathing, vomiting, or are unable to drink fluids. Discharge Data Discharge Date/Time-TO BE ENTERED AT DEPARTURE: 05/07/19 15:19 Medical Decision Making 75-[id number]-rph-year-old woman with a history of anxiety/depression, GERD, diabetes, and hypertension referred by PCP for reevaluation of persistent abdominal pain since 04/22/2019. Evaluation here at that time was inclusive of a negative abdominal/pelvic CT scan (minimal fat protruding from of ventral hernia). Since her evaluation, she has had persistent and now worsening pain in the same region of her abdomen. She is taking minimal analgesics. Evaluation today significant for local tenderness which includes tenderness to superficial touch. Labs nondiagnostic. Repeat CT of the abdomen and pelvis negative for any evidence of clinically significant pathology. Discussed nondiagnostic findings with patient who was discharged home with a plan for OTC analgesia, increasing her baseline oral antacids, and PCP follow-up. Given usual customary return instructions prior to discharge. Medical Records Medical records reviewed: Yes I reviewed the patient's medical records. Imaging Data Radiologic Study: Imaging: CT Scan (Abdomen pelvis with IV contrast) My impression: Ventral hernia with minimal fat. Otherwise, no obvious significant bowel or soft tissue pathology or radiographic explanation of patient discomfort. Interpreted independently contemporaneously by myself. Radiologist's impression: Same Lab Data Lab results reviewed: Yes I reviewed the patient's lab results. Labs: Lab Results 05/07/19 05/07/19 Range/Units 12:30 12:30 WBC 7.20 (4.4-10.8) k/cumm RBC 5.01 (4.00-5.20) m/cumm Hgb 14.6 (12.0-15.5) g/dL Hct 42.5 (36.0-46.0) % MCV 84.8 (80-95) fL MCH 29.1 (27.0-33.0) pg MCHC 34.4 (32.0-36.0) g/dL RDW 14.0 (11.7-14.6) % Plt Count 161 (130-400) x1000/uL MPV 9.7 (8.0-11.0) fL Immature Gran % 0.3 % Neutrophils % 53.5 Lymphocytes % 37.2 Monocytes % 6.1 Eosinophils % 2.6 Basophils % 0.3 Absolute Neutrophils 3.85 (1.2-6.7) k/cumm Absolute Lymphocytes 2.68 (1.2-3.4) k/cumm Absolute Monocytes 0.44 (0.11-0.7) k/cumm Absolute Eosinophils 0.19 (0.0-0.7) k/cumm Absolute Basophils 0.02 (0.0-0.2) k/cumm Sodium 139 (136-145) mmol/L Potassium 4.1 (3.5-5.1) mmol/L Chloride 103 (98-107) mmol/L Carbon Dioxide 28.0 (21.0-32.0) mmol/L Anion Gap 8.0 (3-11) mmol/L BUN 9 (7-18) mg/dL Creatinine 0.81 (0.55-1.02) mg/dL Estimated GFR/1.73 m2 >= 60.00 (mL/min/1.73m2) Glucose 107 H (74-106) mg/dL Calcium 8.4 L (8.5-10.1) mg/dL Total Bilirubin 0.3 (0.2-1.0) mg/dL AST 17 (15-37) U/L ALT 21 (14-59) U/L Alkaline Phosphatase 131 H (46-116) U/L Total Protein 7.6 (6.4-8.2) g/dL Albumin 4.2 (3.4-5.0) g/dL HPI 50-year-old woman with a past medical history which includes anxiety/depression, asthma, diabetes, GERD, and hypertension. Evaluated here on 04/22/2023 abdominal pain associated with a fall. Evaluation at that time included nondiagnostic labs including repeat troponins, and abdominal CT which was negative for acute pathology with a small fat-containing umbilical hernia. She was discharged home with outpatient follow-up. Referred here by her PCP for accelerating pain in the same region of abdominal discomfort is for previous evaluation. According to Ms. Chanel, her pain is localized to her right upper quadrant/right abdomen and is worse with positional change and direct palpation. She is on oral antacids but has taken only occasional analgesia for this. She denies fever/chills, dyspnea, chest pain, palpitations, change in bowel habits, melena, hematochezia. She has had no urinary symptoms. She does have mild subjective abdominal bloating. She was evaluated today by her PCP and referred here for further management. General Date/Time Provider Initiated Documentation: 05/07/19 12:33 . Related Data Home Medications Medication Instructions Recorded Confirmed fluticasone propion-salmeterol 1 ea INHALATION BID 08/31/12 05/07/19 [Advair Diskus] gabapentin 800 mg PO TID 08/31/12 05/07/19 albuterol sulfate [ProAir HFA] 1 - 2 puff INHALATION Q6H PRN 05/04/14 05/07/19 inhaler carvedilol [Coreg] 6.25 mg PO BID tab-cap 05/04/14 05/07/19 loratadine 10 mg PO DAILY 05/04/14 05/07/19 cyanocobalamin (vitamin B-12) 1,000 mcg PO DAILY 10/16/16 05/07/19 [Vitamin B-12] hydroxyzine HCl 25 mg PO BID 10/16/16 05/07/19 clopidogrel [Plavix] 75 mg PO DAILY 12/24/17 05/07/19 lorazepam 0.5 mg PO TID PRN 12/24/17 05/07/19 famotidine 20 mg PO HS 04/16/18 05/07/19 metformin 1,000 mg PO BID 04/16/18 05/07/19 pantoprazole 40 mg PO BID 04/16/18 05/07/19 Allergies Allergy/AdvReac Type Severity Reaction Status Date / Time amoxicillin trihydrate Allergy rash/gi Unverified 05/07/19 12:24 [From Augmentin] upset bacitracin Allergy Skin Rash Unverified 05/07/19 12:24 [From Neosporin ([id number])] bacitracin zinc Allergy Skin Rash Unverified 05/07/19 12:24 [From Neosporin ([id number])] neomycin sulfate Allergy Skin Rash Unverified 05/07/19 12:24 [From Neosporin ([id number]-ljr-[id number])] polymyxin B Allergy Skin Rash Unverified 05/07/19 12:24 [From Neosporin (sus-gps-axzlj)] potassium clavulanate Allergy rash/gi Unverified 05/07/19 12:24 [From Augmentin] upset aspirin AdvReac Nausea Unverified 05/07/19 12:24 lactose AdvReac gi upset Unverified 05/07/19 12:24 General Stated Complaint: Abd Prob ALLYSON: 3 Review of Systems All systems reviewed & are unremarkable except as noted in HPI and below PFSH Medical History Anxiety (Chronic) Asthma (Chronic) Depression (Chronic) Diabetes (Chronic) GERD (gastroesophageal reflux disease) (Chronic) HTN (hypertension) (Chronic) Hyperlipemia (Acute) Migraine (Chronic) Surgical History History of hysterectomy (Chronic) History of thyroidectomy (Chronic) Hx of cholecystectomy (Chronic) Social History Smoking/Tobacco Use Status: Current every day Tobacco Type: cigarettes Alcohol Intake: never Drug use: Never Substance use type: does not use Do you feel safe at home: Yes Do you feel safe in your relationship?: Yes Exam Narrative Exam Narrative: Nursing note and vital signs have been reviewed and noted. GENERAL: alert, active, no acute distress, well -hydrated, well-nourished HEENT: atraumatic/normocephalic, PERRLA, EOMI, conjunctiva clear, external ear s/canals normal, nasal mucosa normal NECK: supple, full range of motion, no mass, normal lymphadenopathy, no thyromegaly CARDIOVASCULAR: RRR, no murmurs, nl pulses, no edema PULMONARY: nl effort, no audible wheezing or stridor, nl breath sounds with no focal deficit. no chest wall tenderness ABDOMEN: soft, left-sided abdominal tenderness immediately superior to the umbilicus. Exquisite tenderness to light touch with no erythema, induration, or palpable mass appreciated, no organomegaly EXTREMITY: normal muscle tone, all joints with FROM, no deformity or tenderness SKIN: no exanthem appreciated NEURO: gross motor exam normal, normal stance and gait PSYCH: alert and oriented, Course Vital Signs Vital signs: Vital Signs Temperature 97.5 F L 05/07/19 12:20 Pulse 85 05/07/19 12:20 Respiratory Rate 05/07/19 12:20 Blood Pressure 165/74 H 05/07/19 12:20 Pulse Oximetry 97 05/07/19 12:20 Temperature 97.5 F L 05/07/19 12:20 Temperature Source Skin 05/07/19 12:20 Pulse 85 05/07/19 12:20 Respiratory Rate 05/07/19 12:20 Respiratory Effort 05/07/19 12:27 Blood Pressure 165/74 H 05/07/19 12:20 Pulse Oximetry 97 05/07/19 12:20 Oxygen Delivery Method Room Air 01/24/20 12:20 Oxygen Flow Rate 0 05/07/19 12:20 Pain Level 10 05/07/19 12:53 Lab/Test Results Lab/Test Results: Laboratory Tests Range/Units 05/07/19 12:30 WBC (4.4-10.8) k/cumm 7.20 RBC (4.00-5.20) m/cumm 5.01 Hgb (12.0-15.5) g/dL 14.6 Hct (36.0-46.0) % 42.5 MCV (80-95) fL 84.8 MCH (27.0-33.0) pg 29.1 MCHC (32.0-36.0) g/dL 34.4 RDW (11.7-14.6) % 14.0 Plt Count (130-400) x1000/uL 161 MPV (8.0-11.0) fL 9.7 Immature Gran % % 0.3 Neutrophils % 53.5 Lymphocytes % 37.2 Monocytes % 6.1 Eosinophils % 2.6 Basophils % 0.3 Absolute Neutrophils (1.2-6.7) k/cumm 3.85 Absolute Lymphocytes (1.2-3.4) k/cumm 2.68 Absolute Monocytes (0.11-0.7) k/cumm 0.44 Absolute Eosinophils (0.0-0.7) k/cumm 0.19 Absolute Basophils (0.0-0.2) k/cumm 0.02
[2019-05-07 13:09] LABS: ALT 21 U/L (14-59); AST 17 U/L (15-37); Albumin 4.2 g/dL (3.4-5.0); Alkaline Phosphatase 131 U/L (46-116); BUN 9 mg/dL (7-18); Bilirubin, Total 0.3 mg/dL (0.2-1.0); CREATININE 0.81 mg/dL (0.55-1.02); Calcium 8.4 mg/dL (8.5-10.1); Chloride 103 mmol/L (98-107); Glucose 107 mg/dL (74-106); Potassium 4.1 mmol/L (3.5-5.1); Sodium 139 mmol/L (136-145); Total Protein 7.6 g/dL (6.4-8.2)
[2019-05-07 13:52] VITALS: BP 138/83; PULSE 75; RESP 18; O2SAT 98
--- NOTE | 2019-05-07 14:12 | NUR.NOTE ---
pt tearful lying in position on bed voicing abd pain 01/21. MD notified x3 with no new orders recieved. Nursing Note:
--- NOTE | 2019-05-07 14:21 | DI.CT_ITS ---
EXAM: CT ABDOMEN PELVIS W CLINICAL HISTORY: WORSENING ABDOMINAL PAIN TECHNIQUE: CT examination of the abdomen and pelvis was performed with bolus infusion of 100 cc of O mnipaque 350. COMPARISON: CT THORAX ABD/PEL CTA from 04/22/2019 FINDINGS: Images obtained through the lung bases are unremarkable. Note is made of markedly nodular hepatic co ntour consistent with cirrhosis and there is hepatosplenomegaly. There are prominent upper abdominal varices indicating chronic portal hypertension. No biliary dilatation. Prior cholecystectomy noted . Pancreas grossly unremarkable and unchanged in appearance from the previous study. Adrenals and k idneys appear normal. Abdominal aorta is of normal diameter and no major vascular abnormality is see n. No significant abdominal or pelvic adenopathy. Umbilical hernia and small ventral hernia, both f at containing, again noted with no evidence of acute inflammation. Appendix is normal. No evidence of diverticulitis or bowel obstruction. Adrenals and kidneys are un remarkable with no evidence of urinary tract obstruction or calcification. There is a question of wall thickening of the gastric antrum raising the possibility of edema, questi on antral gastritis. Please correlate clinically. IMPRESSION: Question gastritis. No other acute findings. Chronic findings as described above.
[2019-05-07] MEDS: Omnipaque 350 MG/ML 100 ML BTL IV (14:37)
[2019-05-07 15:19] VITALS: BP 138/83; PULSE 75; RESP 18; TEMP 36.4; O2SAT 98
== END 2019-05-07 15:19 | disposition home or self-care (01) ==
PROVIDERS: Emergency Provider Emergency Medicine; PCP Family Medicine
DX: R10.11 Right upper quadrant pain (principal); I10 Essential (primary) hypertension; E11.9 Type 2 diabetes mellitus without complications; Z79.84 Long term (current) use of oral hypoglycemic drugs
CPT/HCPCS: 80053; 96361; 96374; 99285; 74177; 85025; 99284; J1885; J3490

== ENCOUNTER 2019-05-09 09:42 | Emergency (ER) | payer MEDICAID, SELFPAY ==
[2019-05-09 09:46] VITALS: BP 138/93; PULSE 96; RESP 18; TEMP 36.3; O2SAT 98
--- NOTE | 2019-05-09 10:52 | ED.GENADUL_ITS ---
Discharge Plan Disposition Patient Disposition: HOME Condition: Good Discharge Details Chief Complaint: Abd Prob Clinical Impression: Abdominal pain Primary Care Provider: Grant Lindsey ED Provider: Yajaira Mendoza Home Meds and New Rx's Prescriptions: New tramadol [Ultram] 50 mg tablet 50 mg PO Q8H PRN (Reason: pain) Qty: 3 RF: 0 No Action loratadine 10 MG tablet,disintegrating 10 mg PO DAILY RF: 0 carvedilol [Coreg] 3.125 MG tablet 6.25 mg PO BID RF: 0 albuterol sulfate [ProAir HFA] 8.5 GM HFA aerosol inhaler 1 - 2 puff Inhalation Q6H PRN RF: 0 fluticasone propion-salmeterol [Advair Diskus] 1 EACH blister with device 1 ea Inhalation BID RF: 0 gabapentin 300 MG capsule 800 mg PO TID RF: 0 cyanocobalamin (vitamin B-12) [Vitamin B-12] 1,000 MCG tablet 1,000 mcg PO DAILY RF: 0 hydroxyzine HCl 25 MG tablet 25 mg PO BID RF: 0 clopidogrel [Plavix] 75 mg Tablet 75 mg PO DAILY RF: 0 lorazepam 0.5 mg Tablet 0.5 mg PO TID PRNRF: 0 metformin 500 mg Tablet 1,000 mg PO BID RF: 0 pantoprazole 40 mg Tablet,Delayed Release (Dr/Ec) 40 mg PO BID RF: 0 famotidine 20 MG tablet 20 mg PO HS RF: 0 Discharge Instructions Instructions: Abdominal Pain (ED) Additional Instructions: Use pain medication only if needed for severe pain. Do not mix with Ativan. Rest activities as tolerated. Stool softener if needed. Follow-up with SurgeonErika tomorrow as discussed. Return sooner for any worsening, concerns or alarming symptoms if needed Referrals: Erika Guillen MD [ [facility] STAFF PHYSICIAN] - Discharge Data Discharge Date/Time-TO BE ENTERED AT DEPARTURE: 05/09/19 12:55 Medical Decision Making Is a 58-year-old patient presenting to the emergency room after being recently evaluated 2 days ago. Patient complaining of 1 month of increasing abdominal pain. This is patient's third emergency room visit for similar complaints. Patient reports she had a palpable lump in her upper abdomen on the right which had been present for quite some time then approximately 1 month ago lump became more prominent and increasingly painful. Patient does report intermittent nausea and vomiting, occasional difficulty tolerating food and fluids although she is able to pass food and is able to drink. Patient denies significant bowel changes. Patient denies fever. Patient does report occasional chills. Patient does report malaise. Is concerned due to the persistence of her pain. Patient was advised to follow-up with her primary care doctor but reports her pain is difficult to tolerate and she wants the lump taken care of. Patient has had 2 CTs of her abdomen in the last month both revealing a fat-containing ventral hernia which is consistent with her physical exam findings. I did offer to reduce this hernia however patient refuses any attempt at reduction with or wi thout medications. Patient has been referred to her PCP but has not had a surgical referral thus far. I have offered the patient recheck of labs, management of nausea, IV fluids. Recheck of patient's labs reveal no significant change from her baseline. Patient has no leukocytosis at this time. Patient's CMP reveals no significant abnormalities. Urinalysis reveals trace leukocyte esterase. This was discussed with the patient who would prefer urine culture versus antibiotic treatment at this time. Given patient's unchanged labs and unchanged complaints of pain I do not feel it is necessary to repeat a CT scan of the patient's abdomen at this time. Patient has focal abdominal pain at site of hernia with no peritoneal signs at this time. Patient agrees with this plan of care. Recent CT reveals EXAM: CT ABDOMEN PELVIS W CLINICAL HISTORY: WORSENING ABDOMINAL PAIN TECHNIQUE: CT examination of the abdomen and pelvis was performed with bolus infusion of 100 cc of Omnipaque 350. COMPARISON: CT THORAX ABD/PEL CTA from 04/22/2019 FINDINGS: Images obtained through the lung bases are unremarkable. Note is made of markedly nodular hepatic contour consistent with cirrhosis and there is hepatosplenomegaly. There are prominent upper abdominal varices indicating chronic portal hypertension. No biliary dilatation. Prior cholecystectomy noted. Pancreas grossly unremarkable and unchanged in appearance from the previous study. Adrenals and kidneys appear normal. Abdominal aorta is of normal diameter and no major vascular abnormality is seen. No significant abdominal or pelvic adenopathy. Umbilical hernia and small ventral hernia, both fat containing, again noted with no evidence of acute inflammation. Appendix is normal. No evidence of diverticulitis or bowel obstruction. Adrenals and kidneys are unremarkable with no evidence of urinary tract obstruction or calcification. There is a question of wall thickening of the gastric antrum raising the possibility of edema, question antral gastritis. Please correlate clinically. IMPRESSION: Question gastritis. No other acute findings. Chronic findings as described above. I spoke with Dr. Guillen of surgery who will evaluate this patient in the office tomorrow due to her persistent complaints of pain and multiple emergency room visits. I have discussed this plan of care with the patient who is quite a greeable. Patient was offered 3 tablets of pain medication until that time. Patient consents to this plan of care. I did discuss the use of opiates. Opiate consent form provided. The patient was stable and requested discharge. Prior to discharge, my usual and customary return precautions were reviewed with the patient - this included follow-up instructions and reasons to return to the Emergency Department if conditions worsens, does not improve as expected, or other new concerns arise. HPI General Date/Time Provider Initiated Documentation: 05/09/19 10:33 . HPI Narrative: This is a 58-year-old patient presenting to the emergency room today for complaints of persistent abdominal pain. Patient reports she has had a small area of swelling noted in her upper abdomen which last month became substantially larger. Patient reports now in the last month it has been quite painful. Patient has had 2 ER visits in the last month for her complaint of pain which resulted in 2 CAT scans both revealing similar finding of ventral hernia containing fat. Patient reports a similar presentation today no significant changes. She does report an intermittent flushing, mild nausea, occasional vomiting and loose stool most of which she is attributing to pain. Patient denies any measured fever. Patient is able to tolerate toast and water. Patient had follow-up with her PCP. Has been recommended the use of Tylenol and Motrin. Patient concerned as the pain is unbearable she is unable to tolerate and wants this hernia repaired. Patient denies any difficulty breathing of shortness of breath or wheezing. No other concerns or complaints. Typical of her presentation in the last month. Patient does report mild dysuria which is new in the last 24 hours. Patient has a history of intermittent hematuria which is known Related Data Home Medications Medication Instructions Recorded Confirmed fluticasone propion-salmeterol 1 ea INHALATION BID 08/31/12 05/10/19 [Advair Diskus] gabapentin 800 mg PO TID 08/31/12 05/10/19 albuterol sulfate [ProAir HFA] 1 - 2 puff INHALATION Q6H PRN 05/04/14 05/10/19 inhaler carvedilol [Coreg] 6.25 mg PO BID tab-cap 05/04/14 05/10/19 loratadine 10 mg PO DAILY 05/04/14 05/10/19 cyanocobalamin (vitamin B-12) 1,000 mcg PO DAILY 10/16/16 05/10/19 [Vitamin B-12] hydroxyzine HCl 25 mg PO BID 10/16/16 05/10/19 clopidogrel [Plavix] 75 mg PO DAILY 12/24/17 05/09/19 lorazepam 0.5 mg PO TID PRN 12/24/17 05/10/19 famotidine 20 mg PO HS 04/16/18 05/10/19 metformin 1,000 mg PO BID 04/16/18 05/10/19 pantoprazole 40 mg PO BID 04/16/18 05/10/19 tramadol [Ultram] 50 mg PO Q8H PRN #3 tab 05/09/19 05/10/19 Previous Rx's Medication Instructions Recorded tramadol [Ultram] 50 mg PO Q8H PRN #3 tab 05/09/19 Allergies Allergy/AdvReac Type Severity Reaction Status Date / Time amoxicillin trihydrate Allergy rash/gi Unverified 05/10/19 10:02 [From Augmentin] upset bacitracin Allergy Skin Rash Unverified 05/10/19 10:02 [From Neosporin ([id number])] bacitracin zinc Allergy Skin Rash Unverified 05/10/19 10:02 [From Neosporin (nst-drs-ybioc)] neomycin sulfate Allergy Skin Rash Unverified 05/10/19 10:02 [From Neosporin ([id number]-whw-howhm)] polymyxin B Allergy Skin Rash Unverified 05/10/19 10:02 [From Neosporin ([id number]-inn-qagpw)] potassium clavulanate Allergy rash/gi Unverified 05/10/19 10:02 [From Augmentin] upset aspirin AdvReac Nausea Unverified 05/10/19 10:02 lactose AdvReac gi upset Unverified 05/10/19 10:02 General Stated Complaint: Abd Prob ALLYSON: 3 Review of Systems All systems reviewed & are unremarkable except as noted in HPI and below Constitutional Constitutional: Reports chills, Denies fatigue, Denies fever(s), Denies headache(s) and Reports malaise ENT Ears, Nose, Mouth, and Throat: Denies ear discharge, Denies otalgia, Denies headache(s), Denies nasal congestion, Denies nasal discharge, Denies sinus pain, Denies sinus pressure and Denies sore throat Respiratory Respiratory: Denies cough and Denies pain with cough Gastrointestinal Gastrointestinal: Reports abdominal pain, Denies constipation, Reports nausea and Reports vomiting Genitourinary Genitourinary: Denies dysuria and Denies urinary urgency Neurologic Neurologic: Denies headache(s) Endocrine Endocrine: Denies fatigue [facility] Medical History Anxiety (Chronic) Asthma (Chronic) Depression (Chronic) Diabetes (Chronic) GERD (gastroesophageal reflux disease) (Chronic) HTN (hypertension) (Chronic) Hyperlipemia (Acute) Migraine (Chronic) Sleep apnea (Acute) Surgical History History of hysterectomy (Chronic) History of thyroidectomy (Chronic) Hx of cholecystectomy (Chronic) Social History Smoking/Tobacco Use Status: Current every day Tobacco Type: cigarettes Alcohol Intake: never Drug use: Never Substance use type: does not use Do you feel safe at home: Yes Do you feel safe in your relationship?: Yes Exam Narrative Exam Narrative: CONST: Healthy appearing patient, in no acute distress. Well hydrated. Alert and alert. EYES: General normal appearance. Alignment normal. Eyelids normal. Conjunctiva normal. Sclera normal. PERRL. NECK: Normal visual inspection. FROM. No lymphadenopathy. Trachea midline. No Midline tenderness. CHEST: Normal insepection of the chest. RESP: Normal respiratory effort. Speaking full sentences. No cough. No wheezing. No retractions. Clear to auscaltation. Breath sound equal and present bilaterally. CARDIO: No JVD. Normal PMI. Regular Rate. Regular Rhythm. Normal peripheral pulses. GI: Normal inspection of abdomen. No distension. Soft. Soft tissue prominence noted in the right upper quadrant which is moderately tender with palpation. Patient with a known ventral hernia this is consistent with ventral hernia. Mild left inguinal discomfort with palpation. bowel sounds present in all 4 quadrants. No rebound. No gaurding. MUSCULOSKELETAL: Normal Gait. FROM of all extremities. Distal neurovascularly intact. Sensation intact distally. SKIN: Normal. Dry. No rashes. Course Vital Signs Vital signs: Vital Signs Temperature 36.3 C L 05/09/19 09:46 Pulse 96 H 05/09/19 09:46 Respiratory Rate 18 05/09/19 09:46 Blood Pressure 138/93 H 05/09/19 09:46 Pulse Oximetry 98 05/09/19 09:46 Temperature 36.3 C L 05/09/19 09:46 Temperature Source Temporal Artery Scan 05/09/19 09:46 Pulse 96 H 05/09/19 09:46 Respiratory Rate 18 05/09/19 09:46 Respiratory Effort Non-Labored 05/09/19 09:50 Blood Pressure 138/93 H 05/09/19 09:46 Blood Pressure Position Sitting 05/09/19 09:46 Pulse Oximetry 98 05/09/19 09:46 Oxygen Delivery Method Room Air 05/09/19 09:46 Oxygen Flow Rate 0 05/09/19 09:46 Pain Level 10 05/09/19 09:46
[2019-05-09 11:06] LABS: Bilirubin Negative (Negative); Blood Negative (Negative); Clarity Clear (Clear); Glucose Negative (Negative); Ketones Negative (Negative); Leukocyte Esterase Trace (Negative); Nitrite Negative (Negative); Urobilinogen 0.2 EU/dL (Up TO 0.2)
[2019-05-09 11:13] LABS: Lactate 0.9 mmol/L (0.6-1.4)
[2019-05-09 11:16] LABS: Abs Immature Grans 0.01 k/cumm (0.0-0.09); Absolute Basophil Count 0.01 k/cumm (0.0-0.2); Absolute Eosinophil Count 0.11 k/cumm (0.0-0.7); Absolute Lymphocyte Count 1.68 k/cumm (1.2-3.4); Absolute Monocyte Count 0.34 k/cumm (0.11-0.7); Basophils % 0.2; Eosinophils % 2.1; HCT 41.6 % (36.0-46.0); Immature Grans % 0.2 %; Mean Corp. HGB Concentration 33.7 g/dL (32.0-36.0); Mean Corpuscular Hemoglobin 28.7 pg (27.0-33.0); Mean Corpuscular Volume 85.4 fL (80-95); Mean Platelet Volume 9.2 fL (8.0-11.0); Monocytes % 6.5; Platelet Count 120 x1000/uL (130-400); RBC 4.87 m/cumm (4.00-5.20); RBC Distribution Width 13.9 % (11.7-14.6); White Blood Cell Count 5.25 k/cumm (4.4-10.8)
[2019-05-09 11:17] LABS: Bacteria Few HPF (Negative); C & S Indicated? Yes; Casts Negative LPF (Negative); Crystals Negative HPF (Negative); Epithelial Cells Few HPF (Negative); Mucus Trace (Negative); RBC Negative HPF (0-2)
[2019-05-09] MEDS: Normal Saline 1,000 ML 1000 ML IV (11:25)
[2019-05-09 11:32] LABS: ALT 20 U/L (14-59); AST 21 U/L (15-37); Albumin 4.2 g/dL (3.4-5.0); Alkaline Phosphatase 104 U/L (46-116); BUN 6 mg/dL (7-18); Bilirubin, Total 0.3 mg/dL (0.2-1.0); CREATININE 0.79 mg/dL (0.55-1.02); Calcium 9.3 mg/dL (8.5-10.1); Chloride 104 mmol/L (98-107); Glucose 84 mg/dL (74-106); Lipase 148 U/L (73-393); Potassium 4.5 mmol/L (3.5-5.1); Sodium 143 mmol/L (136-145); Total Protein 7.3 g/dL (6.4-8.2)
[2019-05-09] MEDS: Normal Saline Flush 10 ML SYR IVP (11:33)
--- NOTE | 2019-05-09 11:49 | NUR.NOTE ---
Nursing Note: Referral [facility] for follow up. Consulted with Dr. Guillen today about ptAmrik Sam.
[2019-05-09 12:54] VITALS: BP 121/84; PULSE 81; RESP 16; TEMP 36.3; O2SAT 98
== END 2019-05-09 12:55 | disposition home or self-care (01) ==
PROVIDERS: Emergency Provider Physician Assistant; PCP Family Medicine
DX: R10.10 Upper abdominal pain, unspecified (principal); R11.0 Nausea; I10 Essential (primary) hypertension; E11.9 Type 2 diabetes mellitus without complications; Z79.84 Long term (current) use of oral hypoglycemic drugs
CPT/HCPCS: 80053; 83690; 96360; 96361; 99284; 81003; 81015; 83605; 85025; 87086

== ENCOUNTER 2019-05-13 05:58 | Day surgery (SDC) | payer MEDICAID, SELFPAY ==
[2019-05-13 06:13] VITALS: BP 128/86; PULSE 81; RESP 18; TEMP 36.6; O2SAT 96
[2019-05-13] MEDS: Lactated Ringers 1,000 ML 80 ML IV ×2 (06:47→08:25)
[2019-05-13] MEDS: CLINDAMYCIN 900 MG/50 ML BAG 50 MG IVPB (07:32)
--- NOTE | 2019-05-13 07:38 | PDOC.DSDIS_ITS ---
Discharge Plan Disposition Patient Disposition: HOME Condition: Good Discharge Details Reason For Visit: VENTRAL HERNIA Attending Provider: Erika Guillen Primary Care Provider: Grant Lindsey Home Meds and New Rx's Prescriptions: New hydrocodone-acetaminophen 5-325 mg Tablet 1 tab PO Q4H PRN (Reason: Pain) Qty: 20 RF: 0 Continued loratadine 10 MG tablet,disintegrating 10 mg PO DAILY RF: 0 carvedilol [Coreg] 3.125 MG tablet 6.25 mg PO BID RF: 0 albuterol sulfate [ProAir HFA] 8.5 GM HFA aerosol inhaler 1 - 2 puff Inhalation Q6H PRN RF: 0 fluticasone propion-salmeterol [Advair Diskus] 1 EACH blister with device 1 ea Inhalation BID RF: 0 gabapentin 300 MG capsule 800 mg PO TID RF: 0 cyanocobalamin (vitamin B-12) [Vitamin B-12] 1,000 MCG tablet 1,000 mcg PO DAILY RF: 0 hydroxyzine HCl 25 MG tablet 25 mg PO BID RF: 0 clopidogrel [Plavix] 75 mg Tablet 75 mg PO DAILY RF: 0 lorazepam 0.5 mg Tablet 0.5 mg PO TID PRNRF: 0 metformin 500 mg Tablet 1,000 mg PO BID RF: 0 pantoprazole 40 mg Tablet,Delayed Release (Dr/Ec) 40 mg PO DAILY RF: 0 famotidine 20 MG tablet 20 mg PO BID RF: 0 tramadol [Ultram] 50 mg tablet 50 mg PO Q8H PRN (Reason: pain) Qty: 3 RF: 0 Discharge Instructions Additional Instructions: The top bandage can be removed tomorrow. The steri strips will usually stick for about a week. When the edges start to curl up, they can be removed. It is okay to shower tomorrow, the water can run over the steri strips Do not swim or soak in a tub for two weeks Call for any concerns including fever, increased pain, vomiting, incision redness or drainage. Do not lift more than 15 pounds for four weeks. Walking and stairs are fine. Do not drive if on narcotic pain meds or if limited by pain. May use Tylenol alternating with ibuprofen for pain control. Ice is also an option. The maximum dose for Tylenol is 4000 mg/day. May use ibuprofen 800 mg every 8 hours as needed. If you are taking hydrocodone, do not use Tramadol or Ativan at the same time. If concerned about constipation, you may use a stool softener or milk of magnesia. Referrals: Erika Guillen MD [ [facility] STAFF PHYSICIAN] - (Call for an appointment for an office visit in 7-10 days) Activity:: Do not lift more than 15 pounds Remove Dressings/Wound Care:: 24 hours Shower/Bathe:: 24 hours Diet:: As Tolerated Discharge Orders Discharge Orders: Discharge Order (Routine); Ordered 05/13/19 Ordered By: Erika Guillen DS: Diagnosis Discharge Diagnosis (1) Ventral hernia: Status: Acute
[2019-05-13 09:13] VITALS: BP 134/85; PULSE 76; RESP 15; TEMP 36.4; O2SAT 92
[2019-05-13 09:18] VITALS: BP 123/79; PULSE 75; RESP 16; TEMP 36.4; O2SAT 93
[2019-05-13 09:23] VITALS: BP 126/78; PULSE 69; RESP 12; TEMP 36.4; O2SAT 94
[2019-05-13 09:40] VITALS: BP 141/84; PULSE 68; RESP 12; TEMP 36.5; O2SAT 95
[2019-05-13 10:36] VITALS: BP 135/89; PULSE 74; RESP 16; TEMP 36.2; O2SAT 74
--- NOTE | 2019-05-13 13:28 | ROE_ITS ---
REPORT OF OPERATIVE PROCEDURE DATE OF PROCEDURE May 13, 2019 PREOPERATIVE DIAGNOSIS Ventral hernia. POSTOPERATIVE DIAGNOSIS Ventral hernia. PROCEDURE Ventral hernia repair with mesh. SURGEON Erika Guillen M.D. ANESTHESIA Bilateral rectus block and general. INDICATIONS This is a 58-year-old woman with a painful bulge in the upper midline of her abdomen. CT scan of the abdomen and pelvis shows a ventral hernia containing fat. PROCEDURE DESCRIPTION The patient was taken to the Operating Room and after induction of General anesthetic had a bilateral rectus block placed by Anesthesia. Her abdomen was then prepped and draped sterilely. A small verti zack midline incision was above the umbilicus after injecting 1% lidocaine with epi. The subcutaneous tissue was divided with cautery down to a hernia sac. This was dissected free of the surrounding sub cu tissue, and reduced through an approximately 2 cm fascial defect. There was a small bridge of fasc ia and then a second less than 1 cm fascial defect distal. The fascial bridge was removed to join the defects. The underside of the fascia was cleared off with gentle blunt and cautery dissection. Palp ation of the fascia above and below revealed no other defects. A large douglas of Ventralex Mesh was s elected and placed deep to the fascia. This was sutured in four quadrants with #0-Prolene sutured in a buried mattress fashion. The fascia was then closed over the mesh with a running #0-Vicryl stitch. There was good hemostasis. The subcutaneous tissue was closed buried #0-Vicryl sutures, and then the skin closed with a running #4-0 Monocryl subcuticular stitch. She tolerated the procedure well and wa s stable to Recovery.
== END 2019-05-13 11:30 | disposition home or self-care (01) ==
PROVIDERS: PCP Family Medicine; Visit Provider Surgery
PROC: (CPT 49560; principal; 2019-05-13 07:30)
DX: K43.9 Ventral hernia without obstruction or gangrene (principal); J45.909 Unspecified asthma, uncomplicated; E11.9 Type 2 diabetes mellitus without complications; K21.9 Gastro-esophageal reflux disease without esophagitis; I10 Essential (primary) hypertension; G47.33 Obstructive sleep apnea (adult) (pediatric)
CPT/HCPCS: 49560; 49568; 76942; C1781; J1100; J1885; J2405

== ENCOUNTER 2019-08-27 09:31 | Outpatient (CLI) | payer MEDICAID, SELFPAY ==
[2019-08-28 17:39] LABS: COVID-19 RT-PCR Result NEGATIVE (Negative)
== END 2019-08-27 09:51 ==
PROVIDERS: PCP Family Medicine; Visit Provider Surgery
DX: Z11.59 Encounter for screening for other viral diseases (principal); Z01.818 Encounter for other preprocedural examination
CPT/HCPCS: U0003

== ENCOUNTER 2019-08-31 06:07 | Day surgery (SDC) | payer MEDICAID, SELFPAY ==
[2019-08-31 06:27] VITALS: BP 115/75; PULSE 70; RESP 18; TEMP 36.4; O2SAT 97
[2019-08-31] MEDS: Lactated Ringers 1,000 ML 80 ML IV ×2 (06:52→08:08)
--- NOTE | 2019-08-31 07:19 | W.PM.HP.N ---
Date of service: 08/31/19 Time of Service: : Assessment and Plan Assessment and plan (1) Epigastric pain: Status: Acute Assessment and plan: I advised EGD and colonoscopy The procedure was described including the risks of perforation with need for surgery, bleeding, cardiorespiratory issues. The patient agrees to proceed. (2) History of colon polyps: Status: Acute History of Present Illness Narrative: This patient complains of vomiting and loose stool which may be triggered by stress related to her neighbors. She often has vomiting after eating. Gastroenterology [place] from [facility] [place]. They are seeing her for HARDEN/portal HTN/Grade I esophageal varices. Routine liver US has been ordered. They also advised a colonoscopy due to history of polyps in 2013. An EGD was scheduled as well to evaluate her epigastric pain. They did not advise routine EGD for monitoring of varices because she is taking carvedilol. Review of Systems All systems reviewed & are unremarkable except as noted in HPI and below PFSH Medical History Anxiety (Chronic) Asthma (Chronic) Depression (Chronic) Diabetes (Chronic) GERD (gastroesophageal reflux disease) (Chronic) HTN (hypertension) (Chronic) Hyperlipemia (Acute) Migraine (Chronic) Multiple sclerosis (Chronic) per pt. states that she has MS, and was seen by Dr. Marie in 2013 with was told she has MS (Pt. is a poor historian, states there is some confusion regarding this and her RLS). Unable to find any supporting evidence of this diagnosis, there is a note from Dr. Marie regarding leg cramping 06/30/19: Pt. has been under anesthesia @ [facility] with this condition reviewed, pt. states she doesn' think she has this condition but RLS Restless leg syndrome (Acute) Sleep apnea (Acute) does not use device Surgical History History of colonoscopy (Chronic) History of esophagogastroduodenoscopy (EGD) (Chronic) History of hysterectomy (Chronic) History of thyroidectomy (Chronic) Hx of cholecystectomy (Chronic) S/P repair of ventral hernia (Acute) Social History Smoking/Tobacco Use Status: Current every day Tobacco Type: cigarettes Alcohol Intake: never Drug use: Never Substance use type: does not use Do you feel safe at home: Yes Additional Social history: lives alone Meds Home Medications and Allergies Home Medications Medication Instructions Recorded Confirmed Type fluticasone propion-salmeterol 1 ea INHALATION BID 08/31/12 08/31/19 History [Advair Diskus] gabapentin 800 mg PO TID 08/31/12 08/31/19 History albuterol sulfate [ProAir HFA] 1 - 2 puff INHALATION Q6H PRN 05/04/14 08/31/19 History inhaler carvedilol [Coreg] 6.25 mg PO BID tab-cap 05/04/14 08/31/19 History loratadine 10 mg PO DAILY 05/04/14 08/31/19 History cyanocobalamin (vitamin B-12) 1,000 mcg PO DAILY 10/16/16 08/31/19 History [Vitamin B-12] hydroxyzine HCl 25 mg PO BID 10/16/16 08/31/19 History clopidogrel [Plavix] 75 mg PO DAILY 12/24/17 08/31/19 History famotidine 20 mg PO BID 04/16/18 08/31/19 History metformin 1,000 mg PO BID 04/16/18 08/31/19 History pantoprazole 40 mg PO DAILY 04/16/18 08/31/19 History tramadol [Ultram] 50 mg PO Q8H PRN #3 tab 05/09/19 08/31/19 Rx bisacodyl 5 mg tablet,delayed 5 mg PO ONCE #4 tab 06/21/19 06/30/19 Rx release lisinopril 10 mg tablet 10 mg PO DAILY 06/21/19 08/31/19 History polyethylene glycol 3350 17 238 g PO ONCE #238 gm 06/21/19 06/30/19 Rx gram/dose oral powder sertraline 25 mg tablet 25 mg PO DAILY 06/21/19 08/31/19 History bisacodyl 5 mg tablet,delayed 5 mg PO ONCE #4 tab 08/30/19 Rx release polyethylene glycol 3350 17 238 gm PO ONCE #238 gm 08/30/19 08/31/19 Rx gram/dose oral powder Allergies Allergy/AdvReac Type Severity Reaction Status Date / Time amoxicillin trihydrate Allergy rash/gi Unverified 08/31/19 06:35 [From Augmentin] upset bacitracin Allergy Skin Rash Unverified 08/31/19 06:35 [From Neosporin ([id number])] bacitracin zinc Allergy Skin Rash Unverified 08/31/19 06:35 [From Neosporin ([id number])] neomycin sulfate Allergy Skin Rash Unverified 08/31/19 06:35 [From Neosporin ([id number])] polymyxin B Allergy Skin Rash Unverified 08/31/19 06:35 [From Neosporin ([id number])] potassium clavulanate Allergy rash/gi Unverified 08/31/19 06:35 [From Augmentin] upset aspirin AdvReac Nausea Unverified 08/31/19 06:35 lactose AdvReac gi upset Unverified 08/31/19 06:35 Exam Narrative Exam Narrative: No acute distress Alert Lungs CTA Heart RRR Abdomen soft, mildly tender LLQ, epigastric region and to the right of the umbilicus. No recurrent hernia noted. Results Last Vital Signs Temp 97.5 F L 08/31/19 06:27 Pulse 70 08/31/19 06:27 Resp 18 08/31/19 06:27 BP 115/75 08/31/19 06:27 Pulse Ox 97 08/31/19 06:27 COVID-19 Screening In the past 14 days, have you traveled outside of [place] or [place]?: NO
--- NOTE | 2019-08-31 07:43 | STOM_PTH ---
PATIENT: Kallie Darling LOC: [facility] U#:[id number] AGE/SX: 59/F ROOM: RE08/31/[address]: Erika Guillen MD : [id number] BED: DIS: 08/31/2019 SPEC #: [id number] RECD: 08/31/19 12:20 STATUS: WENDY REQ #: [id number] PORFIRIO: 08/31/19 07:[address]: Erika Guillen DEPT: Surgical Specimen RECD BY: Gisselle Yuen ENTERED: 08/31/19 12:21 SP TYPE: STOMACH OTHR DR: Grant Lindsey Tissues: 1 - BIOPSY BOWEL 2 - STOMACH BIOPSY Procedures: GROSS AND MICRO LEVEL 4 Comments: [id number]
--- NOTE | 2019-08-31 08:21 | PDOC.DSDIS_ITS ---
Discharge Plan Disposition Patient Disposition: HOME Condition: Good Discharge Details Reason For Visit: EGD, Colonoscopy Attending Provider: Erika Guillen Primary Care Provider: Grant Lindsey Home Meds and New Rx's Prescriptions: Continued lisinopril 10 mg tablet 10 mg PO DAILY RF: 0 sertraline 25 mg tablet 25 mg PO DAILY RF: 0 loratadine 10 MG tablet,disintegrating 10 mg PO DAILY RF: 0 carvedilol [Coreg] 3.125 MG tablet 6.25 mg PO BID RF: 0 albuterol sulfate [ProAir HFA] 8.5 GM HFA aerosol inhaler 1 - 2 puff Inhalation Q6H PRN RF: 0 fluticasone propion-salmeterol [Advair Diskus] 1 EACH blister with device 1 ea Inhalation BID RF: 0 gabapentin 300 MG capsule 800 mg PO TID RF: 0 cyanocobalamin (vitamin B-12) [Vitamin B-12] 1,000 MCG tablet 1,000 mcg PO DAILY RF: 0 hydroxyzine HCl 25 MG tablet 25 mg PO BID RF: 0 clopidogrel [Plavix] 75 mg Tablet 75 mg PO DAILY RF: 0 metformin 500 mg Tablet 1,000 mg PO BID RF: 0 pantoprazole 40 mg Tablet,Delayed Release (Dr/Ec) 40 mg PO DAILY RF: 0 famotidine 20 MG tablet 20 mg PO BID RF: 0 tramadol [Ultram] 50 mg tablet 50 mg PO Q8H PRN (Reason: pain) Qty: 3 RF: 0 Discontinued polyethylene glycol 3350 17 gram/dose powder 238 g PO ONCE Qty: 238 RF: 0 bisacodyl 5 mg tablet,delayed release (DR/EC) 5 mg PO ONCE Qty: 4 RF: 0 polyethylene glycol 3350 17 gram/dose powder 238 gm PO ONCE Qty: 238 RF: 0 bisacodyl [Bisa-Lax (bisacodyl)] 5 mg tablet,delayed release (DR/EC) 5 mg PO ONCE Qty: 4 RF: 0 Discharge Instructions Additional Instructions: Findings: Your upper endoscopy was normal. Routine biopsies were done, my office will contact you with results. The colonoscopy could not be completed due to a poor prep. No obvious abnormalities were seen. Follow up: My office will contact you to reschedule the colonoscopy. Please call if you develop: fevers >101.5 Nausea or Vomiting Abdominal pain that is not transient DAY SURGERY UNIT POST COLONOSCOPY INSTRUCTIONS 1. Because there will be medication in your system for the next 24 hours, you may feel a little sleepy. Your coordination will be affected. Therefore: a. Do not drive or operate dangerous equipment for 24 hours. b. Do not drink alcohol beverages for 24 hours (not even beer). c. Plan to go home and rest for the day. 2. Generally there are no restrictions on your activity after a day or so has gone by, but you may feel a bit fatigued for a few days. 3 After you arrive home you may have a light meal and return to a normal diet as you can tolerate it without feeling sick to your stomach. 4. After surgery, you may feel pain or discomfort. This should be only tr ansient, but if it persists please contact your doctor. 5. If there are any questions regarding the findings of your procedure, please feel free to contact your doctor. 6. If you are unable to contact your doctor with a problem, contact the hospital at [phone]. 7. Continue all your regular medications unless directed otherwise. I understand the above instructions and have no questions. Signature of Patient or Responsible Adult Escort Date/Time Name of Responsible Adult Escort Signature of Nurse Date/Time Activity:: Activity as Tolerated Diet:: As Tolerated Discharge Orders Discharge Orders: Discharge Order (Routine); Ordered 05/19/20 Ordered By: Erika Guillen DS: Diagnosis Discharge Diagnosis (1) Epigastric pain: Status: Acute (2) History of colon polyps: Status: Acute
[2019-08-31 08:41] VITALS: BP 116/80; PULSE 66; RESP 18; TEMP 36.4; O2SAT 99
--- NOTE | 2019-08-31 09:28 | W.PM.ENDDOP ---
Date of service: 08/31/19 Time of Service: 08:00 Endoscopy Report DATE OF PROCEDURE: 08/31/19 PRE-OP DIAGNOSIS: Epigastric pain, history of colon polyps POST-OP DIAGNOSIS: other (Normal EGD, incomplete colonoscopy/poor prep) PROCEDURE: EGD with biopsy Incomplete colonoscopy SURGEON: Erika Guillen ANESTHESIA: MAC DISPOSITION: same day INDICATIONS: This 59-year-old woman presents for evaluation of epigastric pain. She also has frequent vomiting after meals. Her history is significant for Geller with grade 1 esophageal varices. She is also due for colonoscopy with a history of polyps in 2013. PROCEDURE DESCRIPTION: The patient was placed in the left lateral decubitus position. Propofol was titrated to sedation. The scope was advanced into her esophagus under direct visualization and down into the stomach and duodenum. No duodenitis or ulcers are noted. Biopsies were taken from the second portion of the duodenum to evaluate for celiac disease as a cause of her abdominal pain. The stomach itself appeared normal including on retroflexed view of the fundus and lesser curvature. No gastric varices were noted. Routine biopsies were taken from the gastric body. The GE junction exhibited no masses, Bailey's, inflammation or strictures. No varices were seen. The scope was slowly withdrawn with no other esophageal lesions found. Digital rectal examination revealed no abnormalities. The scope was advanced to about the splenic flexure. The patient's prep was too poor to continue with at least half of the colon obscured by stool. No gross abnormalities were noted upon withdrawal. We will reschedule her colonoscopy with a 2-day bowel prep.
== END 2019-08-31 09:18 | disposition home or self-care (01) ==
PROVIDERS: PCP Family Medicine; Visit Provider Surgery
PROC: (CPT 43239; principal; 2019-08-31 07:30)
DX: R10.13 Epigastric pain (principal); Z12.11 Encounter for screening for malignant neoplasm of colon; Z86.010 Personal history of colon polyps; K21.9 Gastro-esophageal reflux disease without esophagitis; I10 Essential (primary) hypertension; G47.33 Obstructive sleep apnea (adult) (pediatric); F17.210 Nicotine dependence, cigarettes, uncomplicated
CPT/HCPCS: 43239; 45378; 88305; G0105; NC; J2001

== ENCOUNTER 2019-09-21 07:35 | Outpatient (CLI) | payer MEDICAID, SELFPAY ==
[2019-09-22 11:46] LABS: COVID-19 RT-PCR UVMMC Result Negative (Negative)
== END 2019-09-21 07:55 ==
PROVIDERS: PCP Family Medicine; Visit Provider Surgery
DX: Z11.59 Encounter for screening for other viral diseases (principal)
CPT/HCPCS: U0003

== ENCOUNTER 2019-09-24 06:01 | Day surgery (SDC) | payer MEDICAID, SELFPAY ==
[2019-09-24 06:20] VITALS: BP 98/65; PULSE 68; RESP 14; TEMP 36.5; O2SAT 97
[2019-09-24] MEDS: Lactated Ringers 1,000 ML 80 ML IV (06:47)
--- NOTE | 2019-09-24 07:24 | W.PM.DSUDISC ---
Discharge Plan Disposition Patient Disposition: HOME Condition: Good Discharge Details Reason For Visit: Colonoscopy Attending Provider: Erika Guillen Primary Care Provider: Grant Lindsey Home Meds and New Rx's Prescriptions: Continued lisinopril 10 mg tablet 10 mg PO DAILY RF: 0 sertraline 25 mg tablet 25 mg PO DAILY RF: 0 loratadine 10 MG tablet,disintegrating 10 mg PO DAILY RF: 0 carvedilol [Coreg] 3.125 MG tablet 6.25 mg PO BID RF: 0 albuterol sulfate [ProAir HFA] 8.5 GM HFA aerosol inhaler 1 - 2 puff Inhalation Q6H PRN RF: 0 fluticasone propion-salmeterol [Advair Diskus] 1 EACH blister with device 1 ea Inhalation BID RF: 0 gabapentin 300 MG capsule 800 mg PO TID RF: 0 cyanocobalamin (vitamin B-12) [Vitamin B-12] 1,000 MCG tablet 1,000 mcg PO DAILY RF: 0 hydroxyzine HCl 25 MG tablet 25 mg PO BID RF: 0 clopidogrel [Plavix] 75 mg Tablet 75 mg PO DAILY RF: 0 metformin 500 mg Tablet 1,000 mg PO BID RF: 0 pantoprazole 40 mg Tablet,Delayed Release (Dr/Ec) 40 mg PO DAILY RF: 0 famotidine 20 MG tablet 20 mg PO BID RF: 0 tramadol [Ultram] 50 mg tablet 50 mg PO Q8H PRN (Reason: pain) Qty: 3 RF: 0 Discharge Instructions Additional Instructions: Findings: Your colonoscopy was normal. Follow up: Plan for routine screening in 10 years with a Aren prep. Please call if you develop: fevers >101.5 Nausea or Vomiting Abdominal pain that is not transient DAY SURGERY UNIT POST COLONOSCOPY INSTRUCTIONS 1. Because there will be medication in your system for the next 24 hours, you may feel a little sleepy. Your coordination will be affected. Therefore: a. Do not drive or operate dangerous equipment for 24 hours. b. Do not drink alcohol beverages for 24 hours (not even beer). c. Plan to go home and rest for the day. 2. Generally there are no restrictions on your activity after a day or so has gone by, but you may feel a bit fatigued for a few days. 3 After you arrive home you may have a light meal and return to a normal diet as you can tolerate it without feeling sick to your stomach. 4. After surgery, you may feel pain or discomfort. This should be only transient, but if it persists please contact your doctor. 5. If there are any questions regarding the findings of your procedure, please feel free to contact your doctor. 6. If you are unable to contact your doctor with a problem, contact the hospital at [phone]. 7. Continue all your regular medications unless directed otherwise. I understand the above instructions and have no questions. Signature of Patient or Responsible Adult Escort Date/Time Name of Responsible Adult Escort Signature of Nurse Date/Time Activity:: Activity as Tolerated Diet:: As Tolerated Discharge Orders Discharge Orders: Discharge Order (Routine); Ordered 09/24/19 Ordered By: Erika Guillen DS: Diagnosis Discharge Diagnosis (1) Normal colonoscopy: Status: Acute
--- NOTE | 2019-09-24 08:08 | W.COLOREPORT ---
Date of service: 09/24/19 Time of Service: 08:08 Colonoscopy Report Date of procedure: 09/24/19 Pre-op diagnosis general: History of polyps Post-op diagnosis procedure note: other (Normal colon) Procedure: Colonoscopy Surgeon: Erika Guillen Anesthesia proc note operative: MAC Disposition: same day Indications: This patient presents for routine colon screening. Her last colonoscopy in 2013 showed polyps. She has no FH of colon cancer. The procedure was attempted a few weeks ago but could not be performed due to poor prep with Miralax. She has done the Golytely prep this time. Procedure Description: The patient was placed in the left Currie position. Propofol was titrated to sedation. Digital rectal examination revealed no abnormalities. The scope was advanced to the cecum without difficulty. The ileocecal valve and appendiceal orifice were clearly identified. The prep was good. The scope was slowly withdrawn over the course of greater than 6 minutes with no abnormalities seen in the ascending, transverse, descending, sigmoid colon or rectum including on retroflexed view. The patient tolerated the procedure well and was stable to recovery. Plan for routine screening colonoscopy in 10 years or sooner if symptoms indicate.
[2019-09-24 08:30] VITALS: BP 128/84; PULSE 66; RESP 18; TEMP 36.5; O2SAT 96
== END 2019-09-24 09:35 | disposition home or self-care (01) ==
PROVIDERS: PCP Family Medicine; Visit Provider Surgery
PROC: 0DJD8ZZ Inspection of Lower Intestinal Tract, Via Natural or Artificial Opening Endoscopic (ICD-10-PCS; CPT 45378; principal; 2019-09-24 07:30)
DX: Z12.11 Encounter for screening for malignant neoplasm of colon (principal); Z86.010 Personal history of colon polyps; E11.9 Type 2 diabetes mellitus without complications; K21.9 Gastro-esophageal reflux disease without esophagitis; I10 Essential (primary) hypertension; G47.33 Obstructive sleep apnea (adult) (pediatric)
CPT/HCPCS: 45378

== ENCOUNTER 2019-10-08 13:05 | Emergency (ER) | payer MEDICAID, SELFPAY ==
--- NOTE | 2019-10-08 13:00 | DI.US_ITS ---
EXAM: US LOWER EXTREMITY VENOUS RT CLINICAL HISTORY: right calf pain, r/o clot. TECHNIQUE: Ultrasound performed using standard protocol. COMPARISON: US US OR ANESTHESIA from 05/13/2019 FINDINGS: Duplex venous ultrasound was performed according to the usual protocol. The deep veins are freely com pressible throughout and there is normal flow augmentation with manual calf compression. 2D and Doppl er evaluation are unremarkable. IMPRESSION: No evidence of deep venous thrombosis of the right lower extremity DATA REPOSITORY:
[2019-10-08 13:06] VITALS: BP 118/69; PULSE 79; RESP 18; TEMP 36.6; O2SAT 96
--- NOTE | 2019-10-08 13:17 | ED.GENADUL_ITS ---
Discharge Plan Disposition Patient Disposition: HOME Condition: Good Discharge Details Chief Complaint: Chest Pain Clinical Impression: Anxiety, Complex regional pain syndrome, Strain of right calf muscle Primary Care Provider: Grant Lindsey ED Provider: Logan Anthony Home Meds and New Rx's Prescriptions: Continued lisinopril 10 mg tablet 10 mg PO DAILY RF: 0 sertraline 25 mg tablet 25 mg PO DAILY RF: 0 loratadine 10 MG tablet,disintegrating 10 mg PO DAILY RF: 0 carvedilol [Coreg] 3.125 MG tablet 6.25 mg PO BID RF: 0 albuterol sulfate [ProAir HFA] 8.5 GM HFA aerosol inhaler 1 - 2 puff Inhalation Q6H PRN RF: 0 fluticasone propion-salmeterol [Advair Diskus] 1 EACH blister with device 1 ea Inhalation BID RF: 0 gabapentin 300 MG capsule 800 mg PO TID RF: 0 cyanocobalamin (vitamin B-12) [Vitamin B-12] 1,000 MCG tablet 1,000 mcg PO DAILY RF: 0 hydroxyzine HCl 25 MG tablet 25 mg PO BID RF: 0 clopidogrel [Plavix] 75 mg Tablet 75 mg PO DAILY RF: 0 metformin 500 mg Tablet 1,000 mg PO BID RF: 0 pantoprazole 40 mg Tablet,Delayed Release (Dr/Ec) 40 mg PO DAILY RF: 0 famotidine 20 MG tablet 20 mg PO BID RF: 0 Advair HFA 230-21 mcg/actuation Hfa Aerosol Inhaler 2 puff INHALATION BID RF: 0 Discharge Instructions Instructions: Muscle Strain (ED) Additional Instructions: At this time there is no evidence of blood clot in your lungs or your leg. I suspect the pain in your calf is likely from a mild strain of your muscles or something called to reflect sympathetic dystrophy which can sometimes lead to significant pain around the skin and muscles for an relatively unexplained reason. Please feel free to use ice or heat to this area, use your crutches to stay off your leg for the next few days, follow-up closely with your PCP. If you notice any worsening of your symptoms, or any new symptoms such as vomiting, diarrhea, fever, chills, shortness of breath, chest pain, numbness, weakness, or fainting , please return immediately to the emergency department for reevaluation. Please follow up with your primary care provider as soon as possible for reassessment and reevaluation. As always, it was a pleasure participating in your medical care today. Referrals: Grant Lindsey [Primary Care Provider] - Medical Decision Making 59-year-old female with a past medical history of GERD, asthma, hypertension, high cholesterol, who presents today for evaluation of mild chest pain, shortness of breath, and right calf pain. Patient states that it began today, she is noted that for the last few days she has had mild soreness on the right lower extremity on the calf. The patient denies any pleuritic chest pain, or exertional chest pain. She states that she often gets anxiety and this feels very similar to that but the calf pain is new. Denies PE risk factors such as recent long car rides, immobilization, recent surgery, prior history of DVT or PE, family history of PE or DVT, morbid obesity, exogenous estrogen and smoking, hemoptysis, history of cancer. Patient has no other complaints at this time. No other modifying factors. She denies history of cardiac disease. Physical exam demonstrates notable right-sided calf tenderness. No edema. Vital signs stable. Differential includes cardiac etiology, PE or DVT. We will get an ultrasound, perform cardiac work-up, gently rehydrate monitor closely and reassess. 2:30 PM The patient CTA of her chest and lower extremity ultrasound were negative for evidence of PE or DVT. Troponin and EKG are unremarkable. Laboratory work-up benign. Patient chest pain has resolved. She is allergic to aspirin, and has refused any dose here. Repeat exam continues to demonstrate mild tenderness in the right calf, however it almost appears to be hyperesthesia-like. Suspect potentially a ligamentous or muscle strain, versus reflex and pathetic dystrophy. The patient does demonstrate good plantar and dorsiflexion, which would be inconsistent with Achilles tendon tear more significant muscle tear. Pending delta troponin repeat EKG at this time. If these returned unremarkable, I do feel that the patient can be discharged home with close follow-up with PCP. Signs and symptoms at this time appear clinically inconsistent with cardiac etiology or ACS. And her symptoms appear notably more consistent with anxiety which she also admits to stating that she feels that the symptoms are identical to her previous anxiety attacks. 5:07 PM Out of an abundance of precaution the repeat troponin and repeat EKG were both unchanged and unremarkable. Signs and symptoms clinically consistent with an anxiety attack and inconsistent with ACS or other cardiopulmonary abnormality at this time. No current clinical indication for further testing. Pain the patient's calf seems to be unrelated to musculoskeletal tear, or ligamentous injury. With no evidence of blood clot either, and a fairly unremarkable d- dimer, I do feel that DVT is ruled out at this time. With no rash, redness, fever or chills and a slight component of hyperesthesias been present I do feel that reflex and pathetic dystrophy may be a component of her symptomatology. Recommend ice at home, continued rest, will give crutches for ease of use. Recommend close follow-up with PCP. Discussed red flags which to return. I have extensively reviewed the treatment plan and discharge instructions with the patient. I have addressed all patient concerns at this time. The patient was made aware of what symptoms to monitor for that would warrant a return to the emergency department. Discussed the plan with the patient, they demonstrate verbal understanding and agreement with our assessment and plan at this time. EKG 13: 11 Rate 80, intervals normal, sinus rhythm, no significant ST elevations or depressions, of note there is a Q wave in lead III and an inverted T wave in lead III. No broad terminal S wave. These findings appear to be unchanged from prior EKG on 04/22/2019 EKG 16: 11 Rate 67, intervals normal, sinus rhythm, no significant ST elevations or depressions, patient still has Q wave in lead III and an inverted T wave in lead III, no acute changes, no evidence of STEMI FINDINGS: CT angiography of the chest was performed with intravenous infusion of 100 cc of Omnipaque 350. The lungs are clear. No pleural effusion. Tracheobronchial tree appears intact. No evidence of pulmonary embolic disease. Thoracic aorta is of normal, no thoracic aortic aneurysm or dissection, major branch vessels appear intact. No mediastinal or hilar adenopathy. Images obtained through the upper abdomen show unremarkable appearance of the visualized portions of the liver and spleen. IMPRESSION: Negative CT angiogram of the chest. No evidence of pulmonary embolic disease. FINDINGS: Duplex venous ultrasound was performed according to the usual protocol. The deep veins are freely compressible throughout and there is normal flow augmentation with manual calf compression. 2D and Doppler evaluation are unremarkable. IMPRESSION: No evidence of deep venous thrombosis of the right lower extremity HPI General Date/Time Provider Initiated Documentation: 10/08/19 13:11 . HPI Narrative: 59-year-old female with a past medical history of GERD, asthma, hypertension, high cholesterol, who presents today for evaluation of mild chest pain, shortness of breath, and right calf pain. Patient states that it began today, she is noted that for the last few days she has had mild soreness on the right lower extremity on the calf. The patient denies any pleuritic chest pain, or exertional chest pain. She states that she often gets anxiety and this feels very similar to that but the calf pain is new. Denies PE risk factors such as recent long car rides, immobilization, recent surgery, prior history of DVT or PE, family history of PE or DVT, morbid obesity, exogenous estrogen and smoking, hemoptysis, history of cancer. Patient has no other complaints at this time. No other modifying factors. She denies history of cardiac disease. Related Data Home Medications Medication Instructions Recorded Confirmed fluticasone propion-salmeterol 1 ea INHALATION BID 08/31/12 09/24/19 [Advair Diskus] gabapentin 800 mg PO TID 08/31/12 10/08/19 albuterol sulfate [ProAir HFA] 1 - 2 puff INHALATION Q6H PRN 05/04/14 10/08/19 inhaler carvedilol [Coreg] 6.25 mg PO BID tab-cap 05/04/14 10/08/19 loratadine 10 mg PO DAILY 05/04/14 10/08/19 cyanocobalamin (vitamin B-12) 1,000 mcg PO DAILY 10/16/16 10/08/19 [Vitamin B-12] hydroxyzine HCl 25 mg PO BID 10/16/16 10/08/19 clopidogrel [Plavix] 75 mg PO DAILY 12/24/17 10/08/19 famotidine 20 mg PO BID 04/16/18 10/08/19 metformin 1,000 mg PO BID 04/16/18 10/08/19 pantoprazole 40 mg PO DAILY 04/16/18 10/08/19 lisinopril 10 mg tablet 10 mg PO DAILY 06/21/19 10/08/19 sertraline 25 mg tablet 25 mg PO DAILY 06/21/19 10/08/19 Advair HFA 2 puff INHALATION BID 10/08/19 10/08/19 Allergies Allergy/AdvReac Type Severity Reaction Status Date / Time amoxicillin trihydrate Allergy rash/gi Unverified 10/08/19 13:11 [From Augmentin] upset bacitracin Allergy Skin Rash Unverified 10/08/19 13:11 [From Neosporin ([id number])] bacitracin zinc Allergy Skin Rash Unverified 10/08/19 13:11 [From Neosporin ([id number])] neomycin sulfate Allergy Skin Rash Unverified 10/08/19 13:11 [From Neosporin ([id number])] polymyxin B Allergy Skin Rash Unverified 10/08/19 13:11 [From Neosporin ([id number])] potassium clavulanate Allergy rash/gi Unverified 10/08/19 13:11 [From Augmentin] upset aspirin AdvReac Nausea Unverified 10/08/19 13:11 lactose AdvReac gi upset Unverified 10/08/19 13:11 General Stated Complaint: Chest Pain ALLYSON: 2 Review of Systems All systems reviewed & are unremarkable except as noted in HPI and below PFSH Medical History Anxiety (Chronic) Asthma (Chronic) Depression (Chronic) Diabetes (Chronic) GERD (gastroesophageal reflux disease) (Chronic) HTN (hypertension) (Chronic) Hyperlipemia (Acute) Migraine (Chronic) Multiple sclerosis (Chronic) per pt. states that she has MS, and was seen by Dr. Marie in 2013 with was told she has MS (Pt. is a poor historian, states there is some confusion regarding this and her RLS). Unable to find any supporting evidence of this diagnosis, there is a note from Dr. Marie regarding leg cramping 06/30/19: Pt. has been under anesthesia @ [facility] with this condition reviewed, pt. states she doesn' think she has this condition but RLS Restless leg syndrome (Acute) Sleep apnea (Acute) does not use device Surgical History History of colonoscopy (Chronic) History of esophagogastroduodenoscopy (EGD) (Chronic) History of hysterectomy (Chronic) History of thyroidectomy (Chronic) Hx of cholecystectomy (Chronic) S/P repair of ventral hernia (Acute) Social History Smoking/Tobacco Use Status: Current every day Tobacco Type: cigarettes Alcohol Intake: never Drug use: Never Substance use type: does not use Do you feel safe at home: Yes Additional Social history: lives alone Exam Narrative Exam Narrative: 1.Const: Well-nourished, Well-developed, appearing stated age 2.Eyes: PERRL, no conjunctival injection, and symmetrical lids. 3.ENT: Atraumatic external nose and ears. Moist MM. Neck: Symmetric, trachea midline, No thyromegaly. 4.CVS: +S1/S2, No murmurs or gallops. Peripheral pulses 2+ and equal in all extremities. Brisk capillary refill in all extremities. 5.RESP: Unlabored respiratory effort. Clear to auscultation bilaterally. No wheezes rales or rhonchi 6.GI: Soft, Nontender/Nondistended, No hepatosplenomegaly. No guarding or rebound. 7.MSK: Normocephalic/Atraumatic, Extremities w/o deformity or ttp No cyanosis or clubbing, Normal movement of all extremities. Notable reproducible tenderness on the right posterior calf, no pitting edema. No redness erythema or signs of cellulitis. No pain or tenderness over the right knee or ankle, no pain or tenderness over the tibia or fibula. Patient is able to flex and extend the knee well, and demonstrates good plantar dorsiflexion of the foot. No redness warmth or signs of cellulitis. 8.Skin: Warm, Dry. No rashes or lesions. 9.Neuro: cath laboratory technician II-XII grossly intact. Sensation grossly intact, no focal neurologic deficits. 10.Psych: (AAO) x3. Appropriate mood and affect Course Vital Signs Vital signs: Vital Signs Temperature 36.6 C 10/08/19 13:06 Pulse 79 10/08/19 13:06 Respiratory Rate 18 10/08/19 13:06 Blood Pressure 118/69 10/08/19 13:06 Pulse Oximetry 96 10/08/19 13:06 Temperature 36.6 C 10/08/19 13:06 Temperature Source Skin 10/08/19 13:06 Pulse 79 10/08/19 13:06 Respiratory Rate 18 10/08/19 13:06 Blood Pressure 118/69 10/08/19 13:06 Blood Pressure Position Sitting 10/08/19 13:06 Pulse Oximetry 96 10/08/19 13:06 Oxygen Delivery Method Room Air 10/08/19 13:06 Oxygen Flow Rate 0 10/08/19 13:06 Pain Level 10 10/08/19 13:06
[2019-10-08 13:24] LABS: Abs Immature Grans 0.03 k/cumm (0.0-0.09); Absolute Basophil Count 0.01 k/cumm (0.0-0.2); Absolute Eosinophil Count 0.13 k/cumm (0.0-0.7); Absolute Lymphocyte Count 1.48 k/cumm (1.2-3.4); Absolute Monocyte Count 0.35 k/cumm (0.11-0.7); Absolute Neutrophil Count 2.69 k/cumm (1.2-6.7); Basophils % 0.2; Eosinophils % 2.8; HCT 37.5 % (36.0-46.0); HGB 12.5 g/dL (12.0-15.5); Immature Grans % 0.6 %; Lymphocytes % 31.6; Mean Corp. HGB Concentration 33.3 g/dL (32.0-36.0); Mean Corpuscular Hemoglobin 29.1 pg (27.0-33.0); Mean Corpuscular Volume 87.4 fL (80-95); Mean Platelet Volume 9.3 fL (8.0-11.0); Monocytes % 7.5; Neutrophils % 57.3; Platelet Count 134 x1000/uL (130-400); RBC 4.29 m/cumm (4.00-5.20); RBC Distribution Width 14.2 % (11.7-14.6); White Blood Cell Count 4.69 k/cumm (4.4-10.8)
[2019-10-08] MEDS: Normal Saline 500 ML IV (13:29)
[2019-10-08 13:43] LABS: ALT 20 U/L (14-59); AST 19 U/L (15-37); Albumin 4.1 g/dL (3.4-5.0); Alkaline Phosphatase 126 U/L (46-116); Anion Gap 8.4 mmol/L (3-11); BUN 13 mg/dL (7-18); Bilirubin, Total 0.3 mg/dL (0.2-1.0); CO2 27.6 mmol/L (21.0-32.0); CREATININE 0.93 mg/dL (0.55-1.02); Calcium 8.9 mg/dL (8.5-10.1); Chloride 102 mmol/L (98-107); Glucose 96 mg/dL (74-106); NT-proBNP 12 pg/mL (<300); Potassium 3.8 mmol/L (3.5-5.1); Sodium 138 mmol/L (136-145); Total Protein 7.5 g/dL (6.4-8.2); Troponin I < 0.05 ng/mL (<0.06)
[2019-10-08 13:46] LABS: INR 1.1 (0.9-1.1); PTT Activated 25.4 sec (21.0-31.4); Prothrombin Time 10.6 sec (9.3-11.0)
[2019-10-08 14:00] LABS: D-Dimer 546 ng/mlFEU (<500)
--- NOTE | 2019-10-08 14:00 | DI.CT_ITS ---
EXAM: CT CHEST PE CTA CLINICAL HISTORY: elevated dimer, chest pain w/ SOB, r/o PE. TECHNIQUE: Imaging Protocol: Axial CT angiography was performed with multi-slice acquisition and mu lti-planar and/or 3D reconstructions. CONTRAST MATERIAL: Intravenous: Omnipaque 350 Contrast volume:structured data in ml COMPARISON: CT CT ABDOMEN PELVIS W from 05/07/2019 FINDINGS: CT angiography of the chest was performed with intravenous infusion of 100 cc of Omnipaque 350. The lungs are clear. No pleural effusion. Tracheobronchial tree appears intact. No evidence of pulmonary embolic disease. Thoracic aorta is of normal, no thoracic aortic aneurysm or dissection, major branch vessels appear intact. No mediastinal or hilar adenopathy. Images obtained through the upper abdomen show unremarkable appearance of the visualized portions of the liver and spleen. IMPRESSION: Negative CT angiogram of the chest. No evidence of pulmonary embolic disease. RADIATION DOSE DELIVERED: 481.18mGy.cm Total DLP DATA REPOSITORY: All CT scans at this facility are submitted to the National Radiology Data Registry (NRDR) Dose Index Registry (DIR) with the [employer] ([employer]). RADIATION OPTIMIZATION: All CT scans at this facility use at least one of these dose optimization te chniques: automated exposure control; mA and/or kV adjustment per patient size (includes targeted exa ms where dose is matched to clinical indication); or iterative reconstruction.
[2019-10-08 14:15] VITALS: BP 94/64; PULSE 73; O2SAT 98
[2019-10-08] MEDS: Omnipaque 350 MG/ML 100 ML BTL IJ (14:24)
[2019-10-08] MEDS: Normal Saline - Diluent 50 ML VIAL IV (14:24)
[2019-10-08 14:37] VITALS: RESP 16
[2019-10-08 15:11] VITALS: BP 95/62; PULSE 72
[2019-10-08 16:31] VITALS: BP 109/52; PULSE 67; O2SAT 98
[2019-10-08 17:00] LABS: Troponin I < 0.05 ng/mL (<0.06)
[2019-10-08 17:25] VITALS: BP 109/52; PULSE 67; RESP 20; O2SAT 98
== END 2019-10-08 17:25 | disposition home or self-care (01) ==
PROVIDERS: Emergency Provider Student in an Organized Health Care Education/Training Program; PCP Family Medicine
DX: S86.911A Strain of unspecified muscle(s) and tendon(s) at lower leg level, right leg, initial encounter (principal); X58.XXXA Exposure to other specified factors, initial encounter; R07.9 Chest pain, unspecified; R06.02 Shortness of breath; F32.9 Major depressive disorder, single episode, unspecified; I10 Essential (primary) hypertension; E11.9 Type 2 diabetes mellitus without complications; Z79.84 Long term (current) use of oral hypoglycemic drugs
CPT/HCPCS: 36415; 71275; 80053; 93005; 99285; 83880; 84484; 85025; 85379; 85610; 85730; 93010; 93971; E0114; J3490

== ENCOUNTER 2019-12-24 04:28 | Outpatient (CLI) | payer MEDICAID, SELFPAY ==
--- NOTE | 2019-12-24 | DI.US_ITS ---
EXAM: US ABDOMEN CLINICAL HISTORY: HCC SCREENING, CIRRHOSIS,ALCOHOLIC,LIVER,K70.30 TECHNIQUE: Ultrasound abdomen performed using standard protocol. COMPARISON: CT CT ABDOMEN PELVIS W from 05/07/[address] CHEST PE CTA from 10/08/2019 FINDINGS: LIVER: Enlarged, measuring 18 cm in length. Mildly heterogeneous liver echotexture. Slight lobulati on of the liver border.. No focal liver lesions are seen.. GALLBLADDER: Status post cholecystectomy BILIARY SYSTEM: Common bile duct measures 11 millimeters. This appears stable.. KIDNEYS: Kidneys are symmetric in size. No evidence of renal calculi. No evidence of hydronephrosis. No renal mass or cyst identified. PANCREAS: Not well seen.. SPLEEN: Enlarged to 18 cm. ABDOMINAL AORTA AND IVC: Visualized portions normal caliber. ASCITES: None seen. Multiple varices are noted around the pancreas. IMPRESSION: Cirrhotic appearing liver. No mass is identified. Splenomegaly and varices. DATA REPOSITORY:
== END 2019-12-24 04:48 ==
PROVIDERS: PCP Family Medicine; Visit Provider Family Medicine
DX: K70.30 Alcoholic cirrhosis of liver without ascites (principal)
CPT/HCPCS: 76700

== ENCOUNTER 2019-12-25 10:14 | Emergency (ER) | payer MEDICAID, SELFPAY ==
[2019-12-25] VITALS (29 sets, daily range): BP systolic 100–145; BP diastolic 52–99; PULSE 61–82; RESP 11–23; TEMP 36.4–36.7; O2SAT 92–98
--- NOTE | 2019-12-25 10:30 | RT.EKG_ITS ---
APPROVED REPORT Exam: Resting ECG Patient Location: E HR:79 bpm ECG Measurements Heart Rate 79 AXIS VA 167 P 34 QRSd 97 QRS 11 QT 389 T 22 QTc 447 Conclusion EKG 10: 38 Rate 79, sinus rhythm, intervals normal, T wave in V1, no significant ST elevation or depression sugg estive of STEMI, questionable Q wave in lead III, however there may be an upward component before Q w aves, difficult to determine with gain setting on EKG. However review of prior EKG from September of this past year demonstrates identical findings.
--- NOTE | 2019-12-25 10:30 | DI.CT_ITS ---
EXAM: CT BRAIN NECK CTA CLINICAL HISTORY: known right brain aneurysm,severe right headache TECHNIQUE: COMPARISON: CT CT CHEST PE CTA from 10/08/2019 FINDINGS: CT examination of the cranial region was performed without contrast administration. The noncontrast scan was followed by CT angiography of the cervical cranial region, with intravenous infusion of 100 cc of Omnipaque 350. Noncontrast CT is essentially unremarkable with slight changes of cerebral atrophy. Orbital and temp oral bone structures appear intact. No evidence of acute intracranial hemorrhage. Visualized lung apices are clear. No gross abnormality of AA or tick arch or visualized pulmonary ar terial circulation. No abnormality of the common, internal, or external carotid arteries on either side in the cervical r egion. Vertebral arteries appear intact bilaterally. Intracranial portions of the vertebral arteries appear normal with no aneurysm, dissection, or stenos is. The basilar artery appears intact. Visualized intracranial portions of the internal carotid art eries show mild calcific plaque formation but no stenosis. There is an apparent 4 millimeter in diameter aneurysm of the right middle cerebral artery at its bif urcation. This has reportedly been previously described. No other abnormality of the middle, anteri or, or posterior cerebral arteries or major branches is noted. No prior images available for compari son. 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 No evidence of acu te process. No other significant findings. RADIATION DOSE DELIVERED: Total DLP
--- NOTE | 2019-12-25 10:42 | ED.GENADUL_ITS ---
Discharge Plan Disposition Patient Disposition: [facility] ([facility]) Condition: Stable Discharge Details Clinical Impression: Headache, Brain aneurysm Primary Care Provider: Grant Lindsey ED Provider: Logan Anthony Home Meds and New Rx's Prescriptions: No Action lisinopril 10 mg tablet 10 mg PO DAILY RF: 0 albuterol sulfate [ProAir HFA] 8.5 GM HFA aerosol inhaler 1 - 2 puff Inhalation Q6H PRN RF: 0 fluticasone propion-salmeterol [Advair Diskus] 1 EACH blister with device 1 ea Inhalation BID RF: 0 cyanocobalamin (vitamin B-12) [Vitamin B-12] 1,000 MCG tablet 1,000 mcg PO DAILY RF: 0 clopidogrel [Plavix] 75 mg Tablet 75 mg PO DAILY RF: 0 gabapentin 800 mg tablet 800 mg PO TID RF: 0 hydroxyzine HCl 25 mg tablet 25 mg PO Q6H PRN PRNRF: 0 sertraline 50 mg tablet 50 mg PO DAILY RF: 0 risperidone 0.5 mg tablet 0.5 mg PO QHS RF: 0 mirtazapine 7.5 mg tablet 7.5 mg PO QHS RF: 0 Chantix Starting Month Box 0.5 mg (11)- 1 mg (42) tablets,dose pack RF: 0 metformin 500 mg Tablet 1,000 mg PO BID RF: 0 pantoprazole 40 mg Tablet,Delayed Release (Dr/Ec) 40 mg PO DAILY RF: 0 Medical Decision Making 59-year-old female who is a poor historian with a past medical history of diabetes, hypertension, migraines, and per patient a recent diagnosis of the [facility] for a brain aneurysm for which she states she is having surgery on in 13 days at the [facility], presents today for evaluation of headache. Patient states that she has had a mild headache for quite some time, however between 3 and 4 AM this morning she developed a sudden onset notable worsening of her headache. She describes it as being in the right side of her head, radiating to her neck and right eye. She describes it as sudden in onset, shortly after this initial event she had a subsequent severe worsening of the headache that again came on suddenly as well. She admits to mild blurriness in her right eye, mild dizziness, but denies any focal chest pain or shortness of breath. She denies any tearing or ripping sensation in her chest. She states that all her symptoms are in her right head. No other complaints at this time. She states that this is atypical from her normal headaches. She denies any falls or trauma. She denies being on any blood thinners, review of medications does seem to show evidence of Plavix use as an antiplatelet agent though. No other complaints at this time. The patient denies any fever, chills. Symptoms on exam demonstrate no profound focal neurologic deficits however she does appear to struggle slightly with the right sided gaodgz-xgxm-pzmsnk in comparison with the left, as well as when using the right heel in comparison to the left for liiz-ib-rfgv testing. No nuchal rigidity or meningiomas. No fever. Although the patient states she has a history of a brain aneurysm and states that she is scheduled to get surgery on the , I can see no record of this in our records, or evidence of aneurysm on previous MRI/MRA/CTA here. We will reach out to the [facility] to obtain their medical records on the patient. In addition to the differential including worsening aneurysm or rupture and concerned also for chronic migraine, cluster headache, and less likely glaucoma. The patient is at the edge of the 6-hour window for brain CTA after symptom onset, of her symptoms are typical with her chronic component of her headache with the new acute component. We will hold off on LP at this time especially with her being on Plavix. We will monitor closely and reassess. 12:[address] scan has returned, no evidence of acute bleed, initially there was no discussion of aneurysm, however upon calling the radiologist in discussing the imaging as well as the newly acquired previous radiology reads from the [facility] it does appear that perhaps there is evidence of a small right cerebral artery aneurysm. The patient is a notably challenging historian in regards to her medications, oscillates between whether or not she is on Plavix, however we did contact her pharmacy and she did fill her Plavix prescription on 10/01/2019, with a 90-day supply. This would certainly be a contraindication to lumbar puncture. Patient's headache has gone from a 10 out of 10 to a 6 out of 10 now. Repeat neurologic exam is otherwise unchanged. She continues to demonstrate no nuchal rigidity. In the setting of a CT scan was performed 6 hours after symptom onset, with no evidence of bleed this is s lightly reassuring but certainly not appropriate to rule out bleed. She is not a candidate for lumbar puncture. I did contact neurosurgery at the [facility], and discussed the case with , he does recommend observation and continued monitoring. Upon discussion we feel that would be most appropriate for her to be in a monitored setting at the [facility] with potential neurovascular repair capabilities if indicated. He agrees to transfer, I did speak with the emergency department physician, and discussed the case with him as well. The patient will be transferred ED to ED. At time of transfer the patient was reassessed and continued to demonstrate current medical stability. No signs of acute respiratory distress requiring intubation, hemodynamic instability requiring pressor support, or rapidly declining mental status. The patient is stable for transport. Patient's blood pressure and heart rate remained stable here. No signs of significant hyperten derek or rapidly deteriorating mental status. 1:25 PM [facility] is here to transport patient. Headache remains 6 out of 10. She continues to demonstrate no change in neurologic status. Stable for transfer. EKG 10: 38 Rate 79, sinus rhythm, intervals normal, T wave in V1, no significant ST elevation or depression suggestive of STEMI, questionable Q wave in lead III, however there may be an upward component before Q waves, difficult to determine with gain setting on EKG. However review of prior EKG from September of this past year demonstrates identical findings. FINDINGS: ANTERIOR CIRCULATION: Right internal carotid artery: Thin diffuse calcification throughout the carotid siphon, but no stenosis. Right middle cerebral artery: Normal. Right anterior cerebral artery: Normal. Left middle cerebral artery: Normal. Left anterior cerebral artery: Normal. POSTERIOR CIRCULATION: Right vertebral artery: Normal. Left vertebral artery: Normal. Basilar artery: Normal. Right posterior cerebral artery: Normal. Left posterior cerebral artery: Normal. Brain: No mass, intracranial hemorrhage or brain edema. Normal opacification of the central dural sinuses and larger intracerebral veins. No abnormal contrast enhancement. Incidentally noted upper bifrontal brain volume loss and bilateral expansion of the extra-axial space up to 2 cm. Mastoid air cells: Clear. Paranasal sinuses: Clear. IMPRESSION: 1. No large vessel stenosis or occlusion. Bilateral internal carotid artery atherosclerosis. 2. Nonspecific bifrontal brain volume loss and extra-axial fluid expansion. FINDINGS: Right common carotid artery: Minimal calcification right carotid bulb. No stenosis. Right internal carotid artery: Normal. Right external carotid artery: Normal. Right vertebral artery: Normal. Left common carotid artery: Minimal focal calcification left carotid bulb. No stenosis. Left internal carotid artery: Normal. Left external carotid artery: Normal. Left vertebral artery: Normal. Subclavian arteries: Normal. Brachiocephalic artery: Normal. Aorta: Normal. Veins: Normal. Sinuses: Clear. Submandibular/Parotid glands: Normal. Thyroid: Normal. Bones/joints: No fracture or concerning stenosis. Mastoid air cells: Clear. Soft tissues: No masses. Lymph nodes: No adenopathy. IMPRESSION: No stenosis or occlusion. Very minimal atherosclerosis in the neck limited to both carotid bulbs. REFERENCES: NASCET CRITERIA. The degree of internal carotid artery stenosis is based on NASCET criteria. Normal is no stenosis. Mild is less than 50% stenosis. Moderate is 50-69% stenosis. Severe is 70% to 99% stenosis. Total occlusion is no detectable patent lumen. Thank you for allowing us to participate in the care of your patient. Dictated and Authenticated by: John Drew MD 12/25/2019 11:13 AM Eastern Time ([place] & [place] Addendum created by John Drew MD on 12/25/2019 11:25 AM Eastern Time ([place] & [place]): Addendum: Although there are no stenoses or occlusions, enlargement at the terminus of the right middle cerebral artery up to 3.8 - 4mm was not mentioned in the original report. The caliber of the unaffected right MCA leading to this region is 3.0 mm. The presence of this right MCA aneurysm was reviewed via telephone with Dr. Anthony at 11:17 a.m. immediately following publication of the report. Initial Report created on 12/25/2019 11:13 AM Eastern Time ([place] & [place]): HPI General Date/Time Provider Initiated Documentation: 12/25/19 10:19 . HPI Narrative: 59-year-old female who is a poor historian with a past medical history of diabetes, hypertension, migraines, and per patient a recent diagnosis of the [facility] for a brain aneurysm for which she states she is having surgery on in 13 days at the [facility], presents today for evaluation of headache. Patient states that she has had a mild headache for quite some time, however between 3 and 4 AM this morning she developed a sudden onset notable worsening of her headache. She describes it as being in the right side of her head, radiating to her neck and right eye. She describes it as s udden in onset, shortly after this initial event she had a subsequent severe worsening of the headache that again came on suddenly as well. She admits to mild blurriness in her right eye, mild dizziness, but denies any focal chest pain or shortness of breath. She denies any tearing or ripping sensation in her chest. She states that all her symptoms are in her right head. No other complaints at this time. She states that this is atypical from her normal headaches. She denies any falls or trauma. She denies being on any blood thinners, review of medications does seem to show evidence of Plavix use as an antiplatelet agent though. No other complaints at this time. The patient denies any fever, chills. Related Data Home Medications Medication Instructions Recorded Confirmed fluticasone propion-salmeterol 1 ea INHALATION BID 08/31/12 12/25/19 [Advair Diskus] albuterol sulfate [ProAir HFA] 1 - 2 puff INHALATION Q6H PRN 05/04/14 12/25/19 inhaler cyanocobalamin (vitamin B-12) 1,000 mcg PO DAILY 10/16/16 12/25/19 [Vitamin B-12] clopidogrel [Plavix] 75 mg PO DAILY 12/24/17 12/25/19 metformin 1,000 mg PO BID 04/16/18 12/25/19 pantoprazole 40 mg PO DAILY 04/16/18 12/25/19 lisinopril 10 mg tablet 10 mg PO DAILY 06/21/19 12/25/19 gabapentin 800 mg PO TID 12/25/19 12/25/19 hydroxyzine HCl 25 mg PO Q6H PRN PRN 12/25/19 12/25/19 mirtazapine 7.5 mg PO QHS 12/25/19 12/25/19 risperidone 0.5 mg PO QHS 12/25/19 12/25/19 sertraline 50 mg PO DAILY 12/25/19 12/25/19 varenicline [Chantix Starting dose pk 12/25/19 Month Box] Allergies Allergy/AdvReac Type Severity Reaction Status Date / Time amoxicillin trihydrate Allergy rash/gi Unverified 12/25/19 10:39 [From Augmentin] upset bacitracin Allergy Skin Rash Unverified 12/25/19 10:39 [From Neosporin (gtt-fkn-bxjaf)] bacitracin zinc Allergy Skin Rash Unverified 12/25/19 10:39 [From Neosporin (gur-ari-wkxxy)] neomycin sulfate Allergy Skin Rash Unverified 12/25/19 10:39 [From Neosporin (zgh-vga-otzvm)] polymyxin B Allergy Skin Rash Unverified 12/25/19 10:39 [From Neosporin (fma-pya-dflqj)] potassium clavulanate Allergy rash/gi Unverified 12/25/19 10:39 [From Augmentin] upset aspirin AdvReac Nausea Unverified 12/25/19 10:39 lactose AdvReac gi upset Unverified 12/25/19 10:39 General Stated Complaint: Headache ALLYSON: 2 Review of Systems All systems reviewed & are unremarkable except as noted in HPI and below PFSH Medical History (Updated 12/25/19 @ 12:03 by Logan Anthony DO) Anxiety Asthma Depression Diabetes GERD (gastroesophageal reflux disease) HTN (hypertension) Hyperlipemia Migraine Multiple sclerosis per pt. states that she has MS, and was seen by Dr. Marie in 2013 with was told she has MS (Pt. is a poor historian, states there is some confusion regarding this and her RLS). Unable to find any supporting evidence of this diagnosis, there is a note from Dr. Marie regarding leg cramping 06/30/19: Pt. has been under anesthesia @ [facility] with this condition reviewed, pt. states she doesn' think she has this condition but RLS Restless leg syndrome Sleep apnea does not use device Surgical History History of colonoscopy History of esophagogastroduodenoscopy (EGD) History of hysterectomy History of thyroidectomy Hx of cholecystectomy S/P repair of ventral hernia Social History Smoking/Tobacco Use Status: Current every day Tobacco Type: cigarettes Alcohol Intake: never Drug use: Never Substance use type: does not use Do you feel safe at home: Yes Additional Social history: lives alone Exam Narrative Exam Narrative: 1.Const: Well-nourished, Well-developed, appearing stated age 2.Eyes: PERRL, no conjunctival injection, and symmetrical lids. 3.ENT: Atraumatic external nose and ears. Moist MM. Neck: Symmetric, trachea midline, No thyromegaly. Patient demonstrates good movement of cervical neck. There is no nuchal rigidity, no nuchal tenderness. Patient is able to flex the neck without any difficulty or significant pain. Negative Kernig's and Brudzinski sign. 4.CVS: +S1/S2, No murmurs or gallops. Peripheral pulses 2+ and equal in all extremities. Brisk capillary refill in all extremities. 5.RESP: Unlabored respiratory effort. Clear to auscultation bilaterally. No wheezes rales or rhonchi 6.GI: Soft, Nontender/Nondistended, No hepatosplenomegaly. No guarding or rebound. 7.MSK: Normocephalic/Atraumatic, Extremities w/o deformity or ttp No cyanosis or clubbing, Normal movement of all extremities 8.Skin: Warm, Dry. No rashes or lesions. 9.Neuro: All 6 cardinal planes of vision are fully intact. No evidence of rotatory or vertical nystagmus. The patient demonstrated a bbvumm-uzjb-pohtcf with mild slowness, her kyqflj-dzkh-agzdrl utilizing the right upper extremity appears to be a little bit more limited and off compared to the left, good dexterity otherwise. There was no evidence of dysdiadochokinesia. Patient was able to ambulate without difficulty. There was no wide-based gait. Mllm-zu-wsau testing was normal on exam bilaterally but she did seem to show slight difficulty but not deficit when utilizing the right heel in comparison to the left. Sensation was intact bilaterally as well as muscle strength bilaterally for all extremities. Patient was able to verbalize butter cup with no slurring, or miss pronunciation. 10.Psych: (AAO) x3. Appropriate mood and affect Course Vital Signs Vital signs: Vital Signs Temperature 36.7 C 12/25/19 10:22 Pulse 81 12/25/19 10:22 Respiratory Rate 18 12/25/19 10:22 Blood Pressure 145/99 H 12/25/19 10:22 Pulse Oximetry 97 12/25/19 10:22 Temperature 36.7 C 12/25/19 10:22 Temperature Source Skin 12/25/19 10:22 Pulse 81 12/25/19 10:22 Respiratory Rate 18 12/25/19 10:22 Respiratory Effort Non-Labored 12/25/19 10:27 Blood Pressure 145/99 H 12/25/19 10:22 Blood Pressure Position Sitting 12/25/19 10:22 Pulse Oximetry 97 12/25/19 10:22 Oxygen Delivery Method Room Air 12/25/19 10:22 Oxygen Flow Rate 0 12/25/19 10:22
[2019-12-25 10:45] LABS: Abs Immature Grans 0.05 10^3/uL (0.0-0.06); Absolute Basophil Count 0.01 10^3/uL (0.0-0.2); Absolute Eosinophil Count 0.11 10^3/uL (0.0-0.7); Absolute Monocyte Count 0.41 10^3/uL (0.1-0.8); Absolute Neutrophil Count 3.62 10^3/uL (1.2-6.7); Basophils % 0.2; Eosinophils % 1.9; HCT 36.8 % (36.0-46.0); HGB 12.2 g/dL (11.2-15.7); Immature Grans % 0.9; Lymphocytes % 27.6; MCH 28.8 pg (27.0-33.0); MCHC 33.2 % (32.0-36.0); MPV 9.9 fL (8.0-11.0); Monocytes % 7.1; Neutrophils % 62.3; Nucleated RBC 0 %; Platelet Count 124 10^3/uL (130-400); RBC 4.23 10^6/uL (3.93-5.22); RDW 14.1 % (11.7-14.6); RDW-SD 43.7 fL
[2019-12-25] MEDS: Omnipaque 350 MG/ML 100 ML BTL IJ (10:56)
[2019-12-25 10:57] LABS: ALT 34 U/L (14-59); AST 39 U/L (15-37); Albumin 3.9 g/dL (3.4-5.0); Alkaline Phosphatase 114 U/L (46-116); Anion Gap 9.4 mmol/L (3-11); BUN 9 mg/dL (7-18); Bilirubin, Total 0.5 mg/dL (0.2-1.0); CO2 26.6 mmol/L (21.0-32.0); CREATININE 0.84 mg/dL (0.55-1.02); Calcium 8.9 mg/dL (8.5-10.1); Chloride 100 mmol/L (98-107); Glucose 157 mg/dL (74-106); INR 1.1 (0.9-1.1); PTT Activated 23.4 sec (21.0-31.4); Potassium 4.1 mmol/L (3.5-5.1); Prothrombin Time 10.7 sec (9.3-11.0); Sodium 136 mmol/L (136-145); Total Protein 7.4 g/dL (6.4-8.2)
[2019-12-25] MEDS: Normal Saline - Diluent 50 ML VIAL IV (10:57)
[2019-12-25] MEDS: Normal Saline Flush 10 ML SYR IVP (10:58)
[2019-12-25] MEDS: Normal Saline 1,000 ML 1000 ML IV (10:59)
[2019-12-25] MEDS: Prochlorperazine 10 MG/2 ML VIAL IVP (11:04)
[2019-12-25] MEDS: diphenhydrAMINE 50 MG/ML VIAL 25 MG IVP (11:08)
[2019-12-25 11:09] LABS: Troponin I < 0.05 ng/mL (<0.06)
[2019-12-25] MEDS: ACETAMINOPHEN 1,000 MG/100 ML BTL 400 MG IVPB (11:11)
--- NOTE | 2019-12-25 11:14 | DI.VRAD_ITS ---
Addendum created by John Drew MD on 12/25/2019 11:25:53 AM EDT: Addendum: Although there are no stenoses or occlusions, enlargement at the terminus of the right middle cerebral artery up to 3.8 - 4mm was not mentioned in the original report. The caliber of the unaffected right MCA leading to this region is 3.0 mm. The presence of this right MCA aneurysm was reviewed via telephone with Dr. Anthony at 11:17 a.m. immediately following publication of the report. Initial report created on 12/25/2019 11:13:50 AM EDT: PROCEDURE INFORMATION: Exam: CT Angiography Head With Contrast Exam date and time: 12/25/2019 10:46 AM Age: 59 years old Clinical indication: Vertigo and weakness; Patient HX: Previous aneurysm TECHNIQUE: Imaging protocol: Computed tomography angiography of the head with intravenous contrast. 3D rendering (Not supervised by radiologist): MIP and/or 3D reconstructed images were created by the technologist. COMPARISON: CT BRAIN CTA 10/08/2018 1:10 PM FINDINGS: ANTERIOR CIRCULATION: Right internal carotid artery: Thin diffuse calcification throughout the carotid siphon, but no stenosis. Right middle cerebral artery: Normal. Right anterior cerebral artery: Normal. Left internal carotid artery: Thin diffuse calcification throughout the carotid siphon, but no stenosis. Left middle cerebral artery: Normal. Left anterior cerebral artery: Normal. POSTERIOR CIRCULATION: Right vertebral artery: Normal. Left vertebral artery: Normal. Basilar artery: Normal. Right posterior cerebral artery: Normal. Left posterior cerebral artery: Normal. Brain: No mass, intracranial hemorrhage or brain edema. Normal opacification of the central dural sinuses and larger intracerebral veins. No abnormal contrast enhancement. Incidentally noted upper bifrontal brain volume loss and bilateral expansion of the extra-axial space up to 2 cm. Mastoid air cells: Clear. Paranasal sinuses: Clear. IMPRESSION: 1. No large vessel stenosis or occlusion. Bilateral internal carotid artery atherosclerosis. 2. Nonspecific bifrontal brain volume loss and extra-axial fluid expansion. PROCEDURE INFORMATION: Exam: CT Angiography Neck With Contrast Exam date and time: 12/25/2019 10:46 AM Age: 59 years old Clinical indication: Vertigo and weakness; Patient HX: Previous aneurysm TECHNIQUE: Imaging protocol: Computed tomography angiography of the neck with intravenous contrast. 3D rendering (Not supervised by radiologist): MIP and/or 3D reconstructed images were created by the technologist. COMPARISON: CT BRAIN CTA 10/08/2018 1:10 PM FINDINGS: Right common carotid artery: Minimal calcification right carotid bulb. No stenosis. Right internal carotid artery: Normal. Right external carotid artery: Normal. Right vertebral artery: Normal. Left common carotid artery: Minimal focal calcification left carotid bulb. No stenosis. Left internal carotid artery: Normal. Left external carotid artery: Normal. Left vertebral artery: Normal. Subclavian arteries: Normal. Brachiocephalic artery: Normal. Aorta: Normal. Veins: Normal. Sinuses: Clear. Submandibular/Parotid glands: Normal. Thyroid: Normal. Bones/joints: No fracture or concerning stenosis. Mastoid air cells: Clear. Soft tissues: No masses. Lymph nodes: No adenopathy. IMPRESSION: No stenosis or occlusion. Very minimal atherosclerosis in the neck limited to both carotid bulbs. REFERENCES: NASCET CRITERIA. The degree of internal carotid artery stenosis is based on NASCET criteria. Normal is no stenosis. Mild is less than 50% stenosis. Moderate is 50-69% stenosis. Severe is 70% to 99% stenosis. Total occlusion is no detectable patent lumen. Dictated and Authenticated by: John Drew MD. Ordering:KAMALA Ford MD
== END 2019-12-25 13:33 | disposition short-term general hospital (02) ==
PROVIDERS: Emergency Provider Student in an Organized Health Care Education/Training Program; PCP Family Medicine
DX: I67.1 Cerebral aneurysm, nonruptured (principal); R51 Headache; H57.11 Ocular pain, right eye; H53.8 Other visual disturbances; R42 Dizziness and giddiness; I10 Essential (primary) hypertension; E11.9 Type 2 diabetes mellitus without complications; Z79.84 Long term (current) use of oral hypoglycemic drugs
CPT/HCPCS: 36415; 70496; 70498; 80053; 93005; 96361; 96374; 96375; 99285; 84484; 85025; 85610; 85730; 93010; J0131; J0780; J1200; J3490

== ENCOUNTER 2019-12-31 01:53 | Outpatient (CLI) | payer MEDICAID, SELFPAY ==
[2020-01-01 17:47] LABS: COVID-19 RT-PCR Result NEGATIVE (Negative)
== END 2019-12-31 02:13 ==
PROVIDERS: PCP Family Medicine; Visit Provider Neurological Surgery
DX: Z11.59 Encounter for screening for other viral diseases (principal); Z01.818 Encounter for other preprocedural examination
CPT/HCPCS: U0003

== ENCOUNTER 2020-01-03 00:11 | Outpatient (CLI) | payer MEDICAID, SELFPAY ==
--- NOTE | 2020-01-03 10:30 | DI.NM_ITS ---
APPROVED REPORT Exam: Pharmacologic Patient Location: In-Patient Room/Bed: Stress Nurse: Vijaya Corley RN BMI: 38.10 Baseline Rhythm: Sinus Rhythm Indications: Patient testing needed for pre operative brain aneurysm surgery on 01/05/2020. Patient re ports left sided chest pain, ???feels like someone punching me in the chest???. She states she also g ets ???lip numbness???.left arm heaviness???..right arm tingling???. Other associated symptoms report ed by patient are occasional SOB and lightheadedness/dizziness. Medical History Medical History: Anxiety, Depression, GERD, Multiple Sclerosis, Sleep Apnea (does not use device), Th yroidectomy. Cardiac Medications: Lisinopril, Clopidogrel, Hydroxyzine. Allergies: Augmentin, Neosporin, Aspirin, Lactose. Cardiac Risk Factors: HTN, Hyperlipidemia, Asthma, Smoking, Diabetes (non-insulin) Previous Cardiac Procedures: No previous cardiac procedures per patient. Pretest Chest Pain Characteristics: Patient reports 4/10 left chest discomfort, feels like my chest is coming out of itself, and right arm tingling. Exercise History: Physically active Lung Sounds: Clear to auscultation Heart Sounds: Regular, Murmur (Patient is not aware of having ever been told she has a murmur). Stress Test Details Test: Pharmacologic stress testing performed using 0.4 mg of regadenoson per 5 mL given IV over 10 s econds. Nuclear Acquisition: Rest Tc-99m/Stress Tc-99m 1 day Rest Isotope: Tc-99m Sestamibi. Dose: 12.5 Date: 01/03/2020 Injection Time: 1025 Stress Isotope: Tc-99m Sestamibi. Dose: 36.2 Date: 01/03/2020 Injection Time: 1308 HR Resting HR Supine: 72 bpm Max Heart Rate (APMHR): 161 bpm Target HR (85% APMHR): 136 bpm Max HR Achieved: 92 bpm % of APMHR: 57 BP Resting BP Supine: 130/82 mmHg Max BP: 134/80 mmHg ECG Resting ECG: Sinus Rhythm Stress ECG: Sinus Rhythm ST Change: No significant ST segment changes noted. Arrhythmia: None Recovery ECG: Sinus Rhythm Recovery ST Change: Normal Clinical Stress Symptoms: Patient reported chest heavyness (9/10) post Lexiscan injection. Stress ECG Conclusion 1. This is a pharmacological stress test. 2. Patient no symptoms suggestive of ischemia 3. EKG portion of this exam is inconclusive. Stress Test Summary STAGE HR BP Symptoms NOTES Supine 72 130/82 1 min post Lexiscan injection 87 132/78 3 min post Lexiscan injection 89 134/80 6 min post Lexiscan injection 80 128/82 MPI Conclusion Ejection fraction was 73% with stress. There were no motion abnormalities. There is no evidence of ischemia on the imaging portion exam. This represents a normal SPECT stress test. Radiologist Interpretation Radiologist Interpretation by: Adithya Walters MD Interpretation Date/Time: 01/03/2020 15:47:30
[2020-01-03] MEDS: Regadenoson 0.4 MG/5 ML SYR IVP (12:55)
== END 2020-01-03 00:31 ==
PROVIDERS: PCP Family Medicine; Visit Provider Family Medicine
DX: R07.9 Chest pain, unspecified (principal); Z01.810 Encounter for preprocedural cardiovascular examination; I10 Essential (primary) hypertension; E78.5 Hyperlipidemia, unspecified; J45.909 Unspecified asthma, uncomplicated; F17.210 Nicotine dependence, cigarettes, uncomplicated; E11.9 Type 2 diabetes mellitus without complications
CPT/HCPCS: 78452; 93017; J2785

== ENCOUNTER 2020-01-03 15:06 | Outpatient (REF) | payer MEDICAID, SELFPAY ==
[2020-01-03 19:27] LABS: HGB 12.3 g/dL (11.2-15.7); MCH 28.7 pg (27.0-33.0); MCHC 32.4 % (32.0-36.0); MCV 88.6 fL (80-95); MPV 9.8 fL (8.0-11.0); Platelet Count 135 10^3/uL (130-400); RBC 4.29 10^6/uL (3.93-5.22); RDW 14.5 % (11.7-14.6); WBC 6.53 10^3/uL (4.4-10.8)
[2020-01-03 19:31] LABS: Prothrombin Time 9.9 sec (9.3-11.0)
[2020-01-03 19:37] LABS: ALT 35 U/L (14-59); AST 21 U/L (15-37); Albumin 4.4 g/dL (3.4-5.0); Alkaline Phosphatase 108 U/L (46-116); Anion Gap 10.4 mmol/L (3-11); BUN 20 mg/dL (7-18); Bilirubin, Total 0.4 mg/dL (0.2-1.0); CO2 26.6 mmol/L (21.0-32.0); CREATININE 0.71 mg/dL (0.55-1.02); Calcium 8.8 mg/dL (8.5-10.1); Chloride 104 mmol/L (98-107); Glucose 99 mg/dL (74-106); Potassium 3.9 mmol/L (3.5-5.1); Sodium 141 mmol/L (136-145); Total Protein 7.3 g/dL (6.4-8.2)
== END 2020-01-03 15:26 ==
LOC: NCHCN 15:06
PROVIDERS: PCP Family Medicine; Visit Provider Family Medicine
DX: K70.30 Alcoholic cirrhosis of liver without ascites (principal)
CPT/HCPCS: 80053; 85027; 85610

== ENCOUNTER 2020-01-04 00:35 | Outpatient (CLI) | payer MEDICAID, SELFPAY ==
--- NOTE | 2020-01-04 12:55 | DI.RAD_ITS ---
EXAM: XR CHEST 2V PA LATERAL CLINICAL HISTORY: SOB, R06.02, PREOP CARDIOVASCULAR EXAM, Z01.810 TECHNIQUE: 2D digital imaging was performed. COMPARISON: CR XR CHEST 2V PA LATERAL from 07/27/2018 FINDINGS: MEDIASTINUM: Normal. HEART: Normal. PULMONARY VASCULATURE: Normal. LUNGS: Clear. PLEURAL SPACE: No pleural effusion or pneumothorax. BONE:Within normal limits for the patient's age. OTHER FINDINGS:Normal. IMPRESSION: No acute pulmonary findings. DATA REPOSITORY: RADIATION DOSE DELIVERED:
== END 2020-01-04 00:55 ==
PROVIDERS: PCP Family Medicine; Visit Provider Family Medicine
DX: R06.02 Shortness of breath (principal)
CPT/HCPCS: 71046

== ENCOUNTER 2020-01-19 09:54 | Emergency (ER) | payer MEDICAID, SELFPAY ==
[2020-01-19] VITALS (41 sets, daily range): BP systolic 99–120; BP diastolic 58–78; PULSE 72–93; RESP 8–24; TEMP 36.7–37.4; O2SAT 94–98
--- NOTE | 2020-01-19 10:00 | RT.EKG_ITS ---
APPROVED REPORT Exam: Resting ECG Patient Location: E HR:91 bpm ECG Measurements Heart Rate 91 AXIS CO 156 P 29 QRSd 94 QRS 29 QT 359 T 37 QTc 442 Conclusion Sinus rhythm...normal P axis, V-rate 60- 99 I have reviewed and interpreted ECG and agree with software generated interpretation.
--- NOTE | 2020-01-19 10:15 | DI.CT_ITS ---
EXAM: CT BRAIN NECK CTA CLINICAL HISTORY: s/p aneurysm repair 01/04, dizziness. TECHNIQUE: Imaging Protocol: Axial CT angiography was performed with multi-slice acquisition and mu lti-planar and/or 3D reconstructions. CONTRAST MATERIAL: Intravenous: Omnipaque 350 Contrast volume:structured data in ml COMPARISON: CT CT BRAIN NECK CTA from 12/25/2019 FINDINGS: CT angiography of the cervical cranial region was performed according to the usual protocol. Initial noncontrast scanning of the head shows an aneurysm clip in place in the expected location of reported recent right middle cerebral artery aneurysm repair, at the distal aspect of the horizontal segment of the MCA. There is no evidence of acute intracranial hemorrhage, mass effect, or midline s hift. Visualized lung apices are clear. Visualized portions of thoracic aorta and pulmonary arterial circul ation are unremarkable. There is no evidence of a cervical mass or adenopathy. The tracheal laryngeal structures appear intact. The common, internal, and external carotid arteries are within normal limits in the cervical region w ith no evidence of aneurysm, stenosis, or dissection. The vertebral arteries are unremarkable in appearance in the cervical region with no evidence of aneu rysm, stenosis, or dissection. Intracranial portions of the internal carotid arteries appear normal with no evidence of aneurysm, st enosis, or dissection. Intracranial vertebral arteries and basilar artery appear normal with no evidence of aneurysm, stenos is or dissection. No aneurysm identified in the region of the [id number]. The anterior, and posterior cerebral ar teries and major branches appear intact with no evidence of aneurysm, stenosis, or dissection. There is an aneurysm clip of the horizontal segment of the right middle cerebral artery with associat ed right craniotomy. There is mild obscure a romeo of the MCA at the site of the clip secondary to me tallic artifact, however the afferent MCA and efferent post bifurcation vessels appear intact. Mildl y increased vascularity noted of the meningeal vessels consistent with recent prior cyst surgery and secondary inflammation. No evidence of acute hemorrhage. No subdural hematoma. No enhancing brain lesion identified. IMPRESSION: Right MCA aneurysm clip status post recent surgery, no evidence of acute process. RADIATION DOSE DELIVERED: 1,107.69mGy.cmTotal DLP 1,107.69mGy.cm Total DLP DATA REPOSITORY: All CT scans at this facility are submitted to the National Radiology Data Registry (NRDR) Dose Index Registry (DIR) with the [employer] (A[employer]). RADIATION OPTIMIZATION: All CT scans at this facility use at least one of these dose optimization te chniques: automated exposure control; mA and/or kV adjustment per patient size (includes targeted exa ms where dose is matched to clinical indication); or iterative reconstruction.
[2020-01-19 10:33] LABS: Abs Immature Grans 0.04 10^3/uL (0.0-0.06); Absolute Basophil Count 0.02 10^3/uL (0.0-0.2); Absolute Eosinophil Count 0.14 10^3/uL (0.0-0.7); Absolute Monocyte Count 0.34 10^3/uL (0.1-0.8); Absolute Neutrophil Count 3.49 10^3/uL (1.2-6.7); Basophils % 0.4; Eosinophils % 2.6; HCT 34.3 % (36.0-46.0); HGB 11.3 g/dL (11.2-15.7); Immature Grans % 0.7; Lymphocytes % 25.8; MCH 28.8 pg (27.0-33.0); MCHC 32.9 % (32.0-36.0); MCV 87.3 fL (80-95); MPV 9.5 fL (8.0-11.0); Monocytes % 6.3; Neutrophils % 64.2; Nucleated RBC 0 %; Platelet Count 137 10^3/uL (130-400); RBC 3.93 10^6/uL (3.93-5.22); RDW-SD 44.8 fL; WBC 5.43 10^3/uL (4.4-10.8)
[2020-01-19] MEDS: Normal Saline 500 ML IV ×2 (10:34→12:00)
--- NOTE | 2020-01-19 10:36 | W.ED.GENAD ---
Discharge Plan Disposition Patient Disposition: HOME Condition: Stable Discharge Details Clinical Impression: Headache, Dizziness, Blurred vision Primary Care Provider: Grant Lindsey ED Provider: Elyse Poe Home Meds and New Rx's Prescriptions: Continued lisinopril 10 mg tablet 10 mg PO DAILY RF: 0 albuterol sulfate [ProAir HFA] 8.5 GM HFA aerosol inhaler 1 - 2 puff Inhalation Q6H PRN RF: 0 fluticasone propion-salmeterol [Advair Diskus] 1 EACH blister with device 1 ea Inhalation BID RF: 0 cyanocobalamin (vitamin B-12) [Vitamin B-12] 1,000 MCG tablet 1,000 mcg PO DAILY RF: 0 clopidogrel [Plavix] 75 mg Tablet 75 mg PO DAILY RF: 0 gabapentin 800 mg tablet 800 mg PO BID RF: 0 sertraline 50 mg tablet 25 mg PO DAILY RF: 0 risperidone 0.5 mg tablet 0.5 mg PO QHS RF: 0 mirtazapine 7.5 mg tablet 7.5 mg PO QHS RF: 0 Chantix Starting Month Box 0.5 mg (11)- 1 mg (42) tablets,dose pack 1 dose pk PO BID RF: 0 metformin 500 mg Tablet 1,000 mg PO BID RF: 0 pantoprazole 40 mg Tablet,Delayed Release (Dr/Ec) 40 mg PO DAILY RF: 0 famotidine 40 mg tablet 20 mg PO BID RF: 0 mirtazapine 15 mg tablet 15 mg PO HS RF: 0 loratadine 10 mg Tablet 10 mg PO HS RF: 0 Discharge Instructions Instructions: Blurred Vision (ED), Dizziness (ED), General Headache (ED) Additional Instructions: Drink plenty of fluids and get plenty of rest. Take Tylenol as needed directed for pain. Follow-up with your scheduled telemedicine visit with neurosurgery at [facility] on 02/02. You should also follow-up with [facility] eye care or with your primary care doctor with referral to ophthalmology for further evaluation of your blurry vision. Return immediately to the emergency department if you develop any worsening or new concerning symptoms. Discharge Data Discharge Date/Time-TO BE ENTERED AT DEPARTURE: 01/19/20 13:55 Discharge Physician: Elyse Poe Medical Decision Making 1010 --59-year-old female with multiple medical problems including anxiety, depression, diabetes and recent brain aneurysm repair at [facility] on 01/04 who presents for persistent dizziness, headaches and new onset blurry vision status post her surgery. Vitals within normal limits. Patient appears somewhat uncomfortable but nontoxic. Her incision site on her head appears to be healing well without signs of infection. She has no focal deficits. Patient also states she has been doing a lot at home lately with cleaning and not resting. Consider that her symptoms could be expected status post her surgery and may be made worse by lack of rest and increased activity at home. Also consider possible new aneurysm, acute bleed, edema. Will check screening labs and obtain a CTA brain and neck and give Compazine, Benadryl, Decadron of fluids and reassess. 1150 --labs and imaging reviewed and unremarkable. CT notes right MCA aneurysm clip but no acute process. Will call [facility] neurosurgery to review imaging and give recommendations. Visual acuity right 20/200, left 20/80, bilateral 20/100 1315--Case discussed with [facility] neurosurgery who reviewed imaging and do not see any acute findings and if patient feels better, can be discharged home with plan for follow-up outpatient. Discussed the complaint of blurry vision and do not feel that this is related to her aneurysm or repair. Patient feels much better and is requesting to go home. She was advised to follow-up with her primary care doctor for referral to ophthalmology or with [facility]. Usual and customary return precautions given prior to discharge. Medical Records Medical records reviewed: Yes I reviewed the patient's medical records. Imaging Data Radiologic Study: Radiologist's impression: CT BRAIN NECK CTA CLINICAL HISTORY: s/p aneurysm repair 01/04, dizziness. TECHNIQUE: Imaging Protocol: Axial CT angiography was performed with multi-slice acquisition and multi-planar and/or 3D reconstructions. CONTRAST MATERIAL: Intravenous: Omnipaque 350 Contrast volume:structured data in ml COMPARISON: CT CT BRAIN NECK CTA from 12/25/2019 FINDINGS: CT angiography of the cervical cranial region was performed according to the usual protocol. Initial noncontrast scanning of the head shows an aneurysm clip in place in the expected location of reported recent right middle cerebral artery aneurysm repair, at the distal aspect of the horizontal segment of the MCA. There is no evidence of acute intracranial hemorrhage, mass effect, or midline shift. Visualized lung apices are clear. Visualized portions of thoracic aorta and pulmonary arterial circulation are unremarkable. There is no evidence of a cervical mass or adenopathy. The tracheal laryngeal structures appear intact. The common, internal, and external carotid arteries are within normal limits in the cervical region with no evidence of aneurysm, stenosis, or dissection. The vertebral arteries are unremarkable in appearance in the cervical region with no evidence of aneurysm, stenosis, or dissection. Intracranial portions of the internal carotid arteries appear normal with no evidence of aneurysm, stenosis, or dissection. Intracranial vertebral arteries and basilar artery appear normal with no evidence of aneurysm, stenosis or dissection. No aneurysm identified in the region of the [id number]. The anterior, and posterior cerebral arteries and major branches appear intact with no evidence of aneurysm, stenosis, or dissection. There is an aneurysm clip of the horizontal segment of the right middle cerebral artery with associated right craniotomy. There is mild obscure a romeo of the MCA at the site of the clip secondary to metallic artifact, however the afferent MCA and efferent post bifurcation vessels appear intact. Mildly increased vascularity noted of the meningeal vessels consistent with recent prior cyst surgery and secondary inflammation. No evidence of acute hemorrhage. No subdural hematoma. No enhancing brain lesion identified. IMPRESSION: Right MCA aneurysm clip status post recent surgery, no evidence of acute process. Lab Data Lab results reviewed: Yes I reviewed the patient's lab results. Labs: Laboratory Tests Range/Units 01/19/20 01/19/20 01/19/20 10:25 10:25 10:25 WBC (4.4-10.8) 10^3/uL 5.43 RBC (3.93-5.22) 10^6/uL 3.93 Hgb (11.2-15.7) g/dL 11.3 Hct (36.0-46.0) % 34.3 L MCV (80-95) fL 87.3 MCH (27.0-33.0) pg 28.8 MCHC (32.0-36.0) % 32.9 RDW (11.7-14.6) % 14.0 Plt Count (130-400) 10^3/uL 137 MPV (8.0-11.0) fL 9.5 Immature Gran % 0.7 Neutrophils % 64.2 Lymphocytes % 25.8 Monocytes % 6.3 Eosinophils % 2.6 Basophils % 0.4 Nucleated RBC % % 0 Absolute Neutrophils (1.2-6.7) 10^3/uL 3.49 Absolute Lymphocytes (1.2-3.4) 10^3/uL 1.40 Absolute Monocytes (0.1-0.8) 10^3/uL 0.34 Absolute Eosinophils (0.0-0.7) 10^3/uL 0.14 Absolute Basophils (0.0-0.2) 10^3/uL 0.02 PT (9.3-11.0) sec 11.0 INR (0.9-1.1) 1.1 APTT (21.0-31.4) sec 22.8 Sodium (136-145) mmol/L 137 Potassium (3.5-5.1) mmol/L 3.8 Chloride (98-107) mmol/L 101 Carbon Dioxide (21.0-32.0) mmol/L 27.6 Anion Gap (3-11) mmol/L 8.4 BUN (7-18) mg/dL 8 Creatinine (0.55-1.02) mg/dL 0.92 Estimated GFR/1.73 m2 (mL/min/1.73m2) >= 60.00 Glucose (74-106) mg/dL 188 H Calcium (8.5-10.1) mg/dL 9.0 Magnesium (1.8-2.4) mg/dL 1.9 Total Bilirubin (0.2-1.0) mg/dL 0.4 AST (15-37) U/L 40 H ALT (14-59) U/L 38 Alkaline Phosphatase (46-116) U/L 97 Troponin I (<0.06) ng/mL < 0.05 Total Protein (6.4-8.2) g/dL 7.1 Albumin (3.4-5.0) g/dL 3.9 ECG Data Attestation: I personally reviewed and interpreted this ECG (s) as follows: Interpretation: Rate of 91, sinus, no acute ST elevation or depression. WA 156. QRS 94. QTc 442. HPI General Mode of arrival: wheelchair. Date/Time Provider Initiated Documentation: 01/19/20 09:54. Limitations to Documentation: no limitations. Information obtained by: patient. HPI Narrative: Patient is a 59-year-old female with a history of anxiety, depression, diabetes, GERD, hypertension, hyperlipidemia, migraines, multiple sclerosis, restless leg syndrome, sleep apnea and recent brain aneurysm repair at [facility] on 01/04 who presents for persistent dizziness, headaches and blurry vision status post the surgery. She states she did speak to [facility] about her symptoms and they advised her to come here for further evaluation and imaging. Patient states she had been having dizziness and headaches prior to her surgery states they are more intense now. She does also admit to new onset of bilateral blurry vision, worse on right side since her surgery. She has been taking Tylenol without relief. She was also prescribed oxycodone from [facility] which helped for her pain but she states she finished this. She states her headache is currently 9/10. She admits to 2 episodes of vomiting over the past 2 weeks. She has mainly been eating soft foods due to pain in her right jaw and right side of her head with chewing and moving her head. She denies any chest pain, shortness of breath. She has been able to ambulate using a cane. Related Data Home Medications Medication Instructions Recorded Confirmed fluticasone propion-salmeterol 1 ea INHALATION BID 08/31/12 01/19/20 [Advair Diskus] albuterol sulfate [ProAir HFA] 1 - 2 puff INHALATION Q6H PRN 05/04/14 01/19/20 inhaler cyanocobalamin (vitamin B-12) 1,000 mcg PO DAILY 10/16/16 01/19/20 [Vitamin B-12] clopidogrel [Plavix] 75 mg PO DAILY 12/24/17 01/19/20 metformin 1,000 mg PO BID 04/16/18 01/19/20 pantoprazole 40 mg PO DAILY 04/16/18 01/19/20 lisinopril 10 mg tablet 10 mg PO DAILY 06/21/19 01/19/20 Chantix Starting Month Box 1 dose pk PO BID 12/25/19 01/19/20 gabapentin 800 mg PO BID 12/25/19 01/19/20 mirtazapine 7.5 mg PO QHS 12/25/19 01/19/20 risperidone 0.5 mg PO QHS 12/25/19 01/19/20 sertraline 25 mg PO DAILY 12/25/19 01/19/20 famotidine 20 mg PO BID 01/19/20 01/19/20 loratadine 10 mg PO HS 01/19/20 01/19/20 mirtazapine 15 mg PO HS 01/19/20 01/19/20 Allergies Allergy/AdvReac Type Severity Reaction Status Date / Time amoxicillin trihydrate Allergy rash/gi Unverified 01/19/20 10:05 [From Augmentin] upset bacitracin Allergy Skin Rash Unverified 01/19/20 10:05 [From Neosporin ([id number])] bacitracin zinc Allergy Skin Rash Unverified 01/19/20 10:05 [From Neosporin ([id number])] neomycin sulfate Allergy Skin Rash Unverified 01/19/20 10:05 [From Neosporin ([id number])] polymyxin B Allergy Skin Rash Unverified 01/19/20 10:05 [From Neosporin ([id number])] potassium clavulanate Allergy rash/gi Unverified 01/19/20 10:05 [From Augmentin] upset aspirin AdvReac Nausea Unverified 01/19/20 10:05 lactose AdvReac gi upset Unverified 01/19/20 10:05 General Stated Complaint: Dizzy/Sync ALLYSON: 2 Review of Systems All systems reviewed & are unremarkable except as noted in HPI and below Constitutional Constitutional: Reports as per HPI, Denies chills, Denies fever(s) and Reports headache(s) Eyes Eyes: Denies blurry vision ENT Ears, Nose, Mouth, and Throat: Reports dizziness, Reports headache(s), Denies sore throat and Denies throat swelling Cardiovascular Cardiovascular: Denies chest pain and Denies dyspnea Respiratory Respiratory: Denies cough and Denies dyspnea Gastrointestinal Gastrointestinal: Denies abdominal pain, Denies diarrhea and Denies vomiting Genitourinary Genitourinary: Denies hematuria and Denies dysuria Musculoskeletal Musculoskeletal: Denies back pain and Denies numbness Integumentary/Breasts Skin/Breast: Denies lesions and Denies rash Neurologic Neurologic: Reports dizziness, Reports headache(s), Denies localized weakness and Denies numbness Allergic/Immunologic Allergic/Immunologic: Denies throat swelling [facility] Medical History (Updated 01/19/20 @ 13:42 by Elyse Poe DO) Anxiety Asthma Depression Diabetes GERD (gastroesophageal reflux disease) HTN (hypertension) Hyperlipemia Migraine Multiple sclerosis per pt. states that she has MS, and was seen by Dr. Marie in 2014 with was told she has MS (Pt. is a poor historian, states there is some confusion regarding this and her RLS). Unable to find any supporting evidence of this diagnosis, there is a note from Dr. Marie regarding leg cramping 06/30/19: Pt. has been under anesthesia @ [facility] with this condition reviewed, pt. states she doesn' think she has this condition but RLS Restless leg syndrome Sleep apnea does not use device Surgical History History of colonoscopy History of esophagogastroduodenoscopy (EGD) History of hysterectomy History of thyroidectomy Hx of cholecystectomy S/P repair of ventral hernia Social History Smoking/Tobacco Use Status: Current every day Tobacco Type: cigarettes Alcohol Intake: never Drug use: Never Substance use type: does not use Do you feel safe at home: Yes Additional Social history: lives alone Exam Const General: cooperative and healthy appearing Orientation: alert and awake HENMT Head: normal to inspection Head images: 1. Well healing incision with running suture in place noted to right frontotemporal region of head at hairline. No erythema, edema, drainage. [address] behind the scar. Ears: hearing grossly normal bilaterally, external ears normal and TM's normal bilaterally General nose exam: external nose normal Face and sinus: normal facial exam Mouth: oral mucosae normal Teeth and gingiva: dentition normal Throat: posterior oropharynx normal Eyes General: appearance normal, both eyes and all related structures Eyelids: eyelids normal Pupils: PERRL EOM: EOM intact bilaterally Neck Neck: normal visual inspection Lymphatic: no lymphadenopathy noted Chest Chest: normal inspection of the chest Resp Effort & Inspection: normal respiratory effort and able to speak in complete sentences Auscultation: clear to auscultation bilaterally Cardio Rate: regular rate Rhythm: regular rhythm GI Inspection: normal to inspection Palpation: soft, not firm, no guarding, no hepatosplenomegaly, no masses and nontender Auscultation: normal bowel sounds Back/Spine/Pelvis Back: no CVA tenderness Skin General skin exam: no rashes or lesions noted Neuro General: patient alert and patient awake Cranial Nerves: CN's II-XI intact bilaterally Cognition: normal cognition Speech: speech normal Gait: normal gait Motor: muscle tone normal throughout and strength 5/5 throughout Sensory Exam: no sensory deficits noted Extrem General: normal to inspection, full ROM and capillary refill normal Psych Appearance: grossly normal Mental Status: mental status grossly normal Speech and Movement: speech and movement normal Affect: normal affect Thought Process: normal Course Vital Signs Vital signs: Vital Signs Temperature 99.3 F 01/19/20 10:01 Pulse 93 H 01/19/20 10:01 Respiratory Rate 18 01/19/20 10:01 Blood Pressure 110/77 01/19/20 10:01 Pulse Oximetry 96 01/19/20 10:01 Temperature 99.3 F 01/19/20 10:01 Temperature Source Skin 01/19/20 10:01 Pulse 88 01/19/20 10:20 Pulse 87 01/19/20 10:21 Respiratory Rate 8 L 01/19/20 10:21 Respiratory Effort 01/19/20 10:05 Blood Pressure 108/73 01/19/20 10:20 Blood Pressure Mean 80 01/19/20 10:20 Blood Pressure Position Supine 01/19/20 10:01 Pulse Oximetry 96 01/19/20 10:21 Oxygen Delivery Method Room Air 01/19/20 10:01 Oxygen Flow Rate 0 01/19/20 10:01 Pain Level 10 01/19/20 10:01 Comment 01/19/20 10:01 Lab/Test Results Lab/Test Results: Laboratory Tests Range/Units 01/19/20 10:25 WBC (4.4-10.8) 10^3/uL 5.43 RBC (3.93-5.22) 10^6/uL 3.93 Hgb (11.2-15.7) g/dL 11.3 Hct (36.0-46.0) % 34.3 L MCV (80-95) fL 87.3 MCH (27.0-33.0) pg 28.8 MCHC (32.0-36.0) % 32.9 RDW (11.7-14.6) % 14.0 Plt Count (130-400) 10^3/uL 137 MPV (8.0-11.0) fL 9.5 Immature Gran % 0.7 Neutrophils % 64.2 Lymphocytes % 25.8 Monocytes % 6.3 Eosinophils % 2.6 Basophils % 0.4 Nucleated RBC % % 0 Absolute Neutrophils (1.2-6.7) 10^3/uL 3.49 Absolute Lymphocytes (1.2-3.4) 10^3/uL 1.40 Absolute Monocytes (0.1-0.8) 10^3/uL 0.34 Absolute Eosinophils (0.0-0.7) 10^3/uL 0.14 Absolute Basophils (0.0-0.2) 10^3/uL 0.02
[2020-01-19 10:47] LABS: INR 1.1 (0.9-1.1); PTT Activated 22.8 sec (21.0-31.4)
[2020-01-19] MEDS: Dexamethasone 10 MG/ML VIAL IVP (10:47)
[2020-01-19] MEDS: diphenhydrAMINE 50 MG/ML VIAL 25 MG IVP (10:48)
[2020-01-19] MEDS: Normal Saline 50 ML 400 ML (10:50)
[2020-01-19] MEDS: Prochlorperazine 10 MG/2 ML VIAL IVP (10:50)
[2020-01-19 10:51] LABS: ALT 38 U/L (14-59); AST 40 U/L (15-37); Albumin 3.9 g/dL (3.4-5.0); Alkaline Phosphatase 97 U/L (46-116); Anion Gap 8.4 mmol/L (3-11); BUN 8 mg/dL (7-18); Bilirubin, Total 0.4 mg/dL (0.2-1.0); CO2 27.6 mmol/L (21.0-32.0); CREATININE 0.92 mg/dL (0.55-1.02); Chloride 101 mmol/L (98-107); Glucose 188 mg/dL (74-106); Magnesium 1.9 mg/dL (1.8-2.4); Potassium 3.8 mmol/L (3.5-5.1); Sodium 137 mmol/L (136-145); Total Protein 7.1 g/dL (6.4-8.2); Troponin I < 0.05 ng/mL (<0.06)
[2020-01-19] MEDS: Omnipaque 350 MG/ML 100 ML BTL IJ (11:42)
[2020-01-19] MEDS: Normal Saline - Diluent 50 ML VIAL IV (11:43)
== END 2020-01-19 13:55 | disposition home or self-care (01) ==
PROVIDERS: Emergency Provider Physician Assistant; PCP Family Medicine
DX: R42 Dizziness and giddiness (principal); R51.9 Headache, unspecified; H53.8 Other visual disturbances; I10 Essential (primary) hypertension; E11.9 Type 2 diabetes mellitus without complications; Z79.84 Long term (current) use of oral hypoglycemic drugs; Z95.828 Presence of other vascular implants and grafts; I67.1 Cerebral aneurysm, nonruptured; Z98.890 Other specified postprocedural states; G35 Multiple sclerosis
CPT/HCPCS: 36415; 70496; 70498; 80053; 93005; 96361; 96374; 96375; 99285; 83735; 84484; 85025; 85610; 85730; 93010; J0780; J1100; J1200; J3490

== ENCOUNTER 2020-02-02 10:41 | Outpatient (CLI) | payer MEDICAID, SELFPAY ==
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
== END 2020-02-02 11:01 ==
PROVIDERS: PCP Family Medicine; Visit Provider Family Medicine
DX: M79.672 Pain in left foot (principal)
CPT/HCPCS: 73630

== ENCOUNTER 2020-02-21 12:51 | Emergency (ER) | payer MEDICAID, SELFPAY ==
--- NOTE | 2020-02-21 12:45 | RT.EKG_ITS ---
APPROVED REPORT Exam: Resting ECG Patient Location: E HR:85 bpm ECG Measurements Heart Rate 85 AXIS MN 149 P -23 QRSd 91 QRS 18 QT 353 T 25 QTc 421 Conclusion Sinus rhythm...normal P axis, V-rate 60- 99 sinus rhythm 84, normal axis, no acute ischemic changes, no major change from prior 01/19/2020, nondia gnostic EKG
--- NOTE | 2020-02-21 12:55 | W.ED.GENAD ---
Discharge Plan Disposition Patient Disposition: HOME Condition: Stable Discharge Details Clinical Impression: Loss of consciousness Primary Care Provider: Grant Lindsey ED Provider: Juliet Acevedo Home Meds and New Rx's Prescriptions: Continued lisinopril 10 mg tablet 10 mg PO DAILY RF: 0 albuterol sulfate [ProAir HFA] 8.5 GM HFA aerosol inhaler 1 - 2 puff Inhalation Q6H PRN RF: 0 fluticasone propion-salmeterol [Advair Diskus] 1 EACH blister with device 1 ea Inhalation BID RF: 0 cyanocobalamin (vitamin B-12) [Vitamin B-12] 1,000 MCG tablet 1,000 mcg PO DAILY RF: 0 gabapentin 800 mg tablet 800 mg PO TID RF: 0 carvedilol 6.25 mg tablet 6.25 mg PO BID RF: 0 hydroxyzine HCl 25 mg Tablet 25 mg PO BID RF: 0 furosemide 20 mg Tablet 20 mg PO DAILY RF: 0 metoclopramide HCl 10 mg tablet 10 mg PO DAILY RF: 0 metformin 500 mg Tablet 1,000 mg PO BID RF: 0 pantoprazole 40 mg Tablet,Delayed Release (Dr/Ec) 40 mg PO DAILY RF: 0 loratadine 10 mg Tablet 10 mg PO HS RF: 0 No Action famotidine 20 mg tablet 20 mg PO BID RF: 0 levetiracetam [Keppra] 500 mg tablet 500 mg PO BID Qty: 180 RF: 3 risperidone 1 mg tablet 0.5 mg PO DAILY RF: 0 Discharge Instructions Instructions: Levetiracetam (By mouth), Syncope (ED), New-Onset Seizure in Adults (ED) Additional Instructions: Please return immediately to the emergency department if you develop any new or worsening symptoms, if your condition does not improve as expected, or if you become otherwise concerned. It is extremely important that you call soon as possible to make an appointment to be seen in follow-up for this visit by your primary care doctor and by a neurologist as scheduled. You have an appointment with Dr. Elaine of neurology tomorrow at 1:45 PM. Referrals: Grant Lindsey [Primary Care Provider] - Deborah Elaine MD [ [facility] STAFF PHYSICIAN] - Discharge Data Discharge Date/Time-TO BE ENTERED AT DEPARTURE: 02/21/20 17:59 Medical Decision Making Kallie Darling is a 59-year-old woman who presented to the emergency department with 3 episode of loss of consciousness since yesterday, unwitnessed, apparently unprovoked with no clear preceding symptoms. On exam patient is well and nontoxic-appearing. Incision right scalp healing well. Nonfocal neurologic exam. Concern for syncope versus seizure, possible intracranial trauma, metabolic/lyte derangement, other. Exam/history is not consistent with meningitis, encephalitis, sepsis, subarachnoid hemorrhage. Plan for CT head, screening labs, IV Keppra, neurosurgery consultation. 1350 I discussed patient with Dr. Rosales of neurosurgery at [facility], who agreed with IV Keppra, recommended continue Keppra as an outpatient and have close follow-up with neurology. No further intervention recommended at this time. Labs reviewed, nondiagnostic. Trop negative x2. Patient lives alone, concern for patient having further episodes at home and no one to assist her. Patient states that she does not want to be admitted with much prefer to go home, and will plan to have a relative stay in her home with her tonight and until she is seen by neurology. I discussed the patient with Dr. Elaine of neurology, who will see patient tomorrow at 1:45. She agrees with 500 Keppra twice daily, no further recommendations at this time. I had a lengthy discussion with Patient regarding return to emergency department precautions, home care, and importance of outpatient follow-up. Pt verbalizes understanding of the plan and is amenable. Patient discharged to home with clear plan for outpatient follow-up. All questions were answered. Disposition decision was made weighing the risks and benefits of hospitalization versus outpatient treatment, the risk for further decompensation, and the patient's wishes. Medical Records Medical records reviewed: Yes I reviewed the patient's medical records. Imaging Data Radiologic Study: Attestation: I personally reviewed and interpreted this imaging study as follows: Radiologist's impression: EXAM: XR CHEST 2V PA LATERAL CLINICAL HISTORY: syncope vs seizure TECHNIQUE: 2D digital imaging was performed. COMPARISON: CR LUMBAR SPINE AP, LAT from 07/12/2016 CR XR pelvis AP from 04/05/2018 CR XR CHEST 2V PA LATERAL from 01/04/2020 CR XR CHEST 2V PA LATERAL from 02/21/2020 CR XR HIP RT COMPLETE AP PELVIS from 02/21/2020 FINDINGS: The heart is not enlarged. The lungs are clear and well expanded. No pleural effusion seen. Mediastinal contours appear intact. IMPRESSION: Normal chest. EXAM: XR LUMBAR SPINE COMPLETE CLINICAL HISTORY: trauma, fall from standing TECHNIQUE: COMPARISON: CR LUMBAR SPINE AP, LAT from 07/12/2016 CR XR HIP RT COMPLETE AP PELVIS from 02/21/2020 FINDINGS: Five views of the lumbar spine and two views of the right hip and pelvis were obtained. There is no evidence of acute fracture of the spine pelvis or hips. There are moderate degenerative changes of the lumbar spine with mild facet changes and moderate endplate hypertrophic changes particularly in the mid lumbar region. Intervertebral disc spaces are fairly well maintained.There are mild degenerative changes of the SI joints bilaterally. Minimal hip DJD noted bilaterally. IMPRESSION: No evidence of acute fracture of the lumbar spine, right hip or pelvis. Lab Data Lab results reviewed: Yes I reviewed the patient's lab results. Labs: Laboratory Tests Range/Units 02/21/20 02/21/20 02/21/20 13:30 13:30 16:40 WBC (4.4-10.8) 10^3/uL 5.88 RBC (3.93-5.22) 10^6/uL 4.05 Hgb (11.2-15.7) g/dL 11.4 Hct (36.0-46.0) % 35.3 L MCV (80-95) fL 87.2 MCH (27.0-33.0) pg 28.1 MCHC (32.0-36.0) % 32.3 RDW (11.7-14.6) % 14.0 Plt Count (130-400) 10^3/uL 120 L MPV (8.0-11.0) fL 9.9 Immature Gran % 0.7 Neutrophils % 55.6 Lymphocytes % 33.7 Monocytes % 7.7 Eosinophils % 2.0 Basophils % 0.3 Nucleated RBC % % 0 Absolute Neutrophils (1.2-6.7) 10^3/uL 3.27 Absolute Lymphocytes (1.2-3.4) 10^3/uL 1.98 Absolute Monocytes (0.1-0.8) 10^3/uL 0.45 Absolute Eosinophils (0.0-0.7) 10^3/uL 0.12 Absolute Basophils (0.0-0.2) 10^3/uL 0.02 Sodium (136-145) mmol/L 139 Potassium (3.5-5.1) mmol/L 3.7 Chloride (98-107) mmol/L 100 Carbon Dioxide (21.0-32.0) mmol/L 27.5 Anion Gap (3-11) mmol/L 11.5 H BUN (7-18) mg/dL 12 Creatinine (0.55-1.02) mg/dL 0.87 Estimated GFR/1.73 m2 (mL/min/1.73m2) >= 60.00 Glucose (74-106) mg/dL 153 H Calcium (8.5-10.1) mg/dL 9.1 Total Bilirubin (0.2-1.0) mg/dL 0.4 AST (15-37) U/L 37 ALT (14-59) U/L 38 Alkaline Phosphatase (46-116) U/L 105 Troponin I (<0.06) ng/mL < 0.05 < 0.05 Total Protein (6.4-8.2) g/dL 7.5 Albumin (3.4-5.0) g/dL 4.1 ECG Data Attestation: I personally reviewed and interpreted this ECG (s) as follows: Interpretation: EKG shows sinus rhythm 84, normal axis, no acute ischemic changes, no major change from prior 01/19/2020, nondiagnostic EKG HPI General Mode of arrival: EMS. Date/Time Provider Initiated Documentation: 02/21/20 12:53. Limitations to Documentation: no limitations. Information obtained by: patient, RN notes reviewed and old records reviewed. HPI Narrative: Kallie Darling is a 59-year-old woman with history of multiple sclerosis, hypertension, hyperlipidemia, GERD, asthma, aneurysm clipping at [facility] last month presenting to emergency department with episodes of loss of consciousness. Patient reports that yesterday she was sitting in a chair when she believes that she lost consciousness briefly and woke up lying next to the chair. Patient also reports an episode this morning where she was sitting and believes that she lost consciousness for a few seconds. She then had another episode where she was getting out of the shower and then woke up on the ground. Patient reports that she was incontinent of urine with at least 1 of these episodes. She denies any tongue biting. Patient reports that she has had right-sided hip pain and lower back pain since the first episode yesterday, worse with the episode this morning. She denies any other pain. Patient reports that she has not been having any symptoms prior to episode: No palpitations, no sensation of lightheadedness, no nausea, no visual changes. She denies fevers, shortness of breath, cough, vomiting, diarrhea, numbness, weakness, rash. Patient states that she is not currently taking any antiseizure medication. She denies having any similar episodes prior to yesterday. Related Data Home Medications Medication Instructions Recorded Confirmed fluticasone propion-salmeterol 1 ea INHALATION BID 08/31/12 02/22/20 [Advair Diskus] albuterol sulfate [ProAir HFA] 1 - 2 puff INHALATION Q6H PRN 05/04/14 02/22/20 inhaler cyanocobalamin (vitamin B-12) 1,000 mcg PO DAILY 10/16/16 02/22/20 [Vitamin B-12] metformin 1,000 mg PO BID 04/16/18 02/22/20 pantoprazole 40 mg PO DAILY 04/16/18 02/22/20 lisinopril 10 mg tablet 10 mg PO DAILY 06/21/19 02/22/20 gabapentin 800 mg PO TID 12/25/19 02/22/20 loratadine 10 mg PO HS 01/19/20 02/22/20 carvedilol 6.25 mg PO BID 02/21/20 02/22/20 furosemide 20 mg PO DAILY 02/21/20 02/22/20 hydroxyzine HCl 25 mg PO BID 02/21/20 02/22/20 metoclopramide HCl 10 mg PO DAILY 02/21/20 02/22/20 famotidine 20 mg tablet 20 mg PO BID 02/22/20 02/22/20 levetiracetam 500 mg tablet 500 mg PO BID #180 tab 02/22/20 02/22/20 risperidone 1 mg tablet 0.5 mg PO DAILY tab 02/22/20 02/22/20 Previous Rx's Medication Instructions Recorded levetiracetam 500 mg tablet 500 mg PO BID #180 tab 02/22/20 Allergies Allergy/AdvReac Type Severity Reaction Status Date / Time amoxicillin trihydrate Allergy rash/gi Unverified 02/22/20 13:51 [From Augmentin] upset bacitracin Allergy Skin Rash Unverified 02/22/20 13:51 [From Neosporin ([id number])] bacitracin zinc Allergy Skin Rash Unverified 02/22/20 13:51 [From Neosporin ([id number])] neomycin sulfate Allergy Skin Rash Unverified 02/22/20 13:51 [From Neosporin ([id number])] polymyxin B Allergy Skin Rash Unverified 02/22/20 13:51 [From Neosporin ([id number])] potassium clavulanate Allergy rash/gi Unverified 02/22/20 13:51 [From Augmentin] upset aspirin AdvReac Nausea Unverified 01/19/20 10:05 lactose AdvReac gi upset Unverified 01/19/20 10:05 General ALLYSON: 2 Review of Systems Narrative: Constitutional: denies fevers Eyes: denies eye pain ENT: denies ear pain, dental pain, sore throat Cardiovascular: denies chest pain, edema Respiratory: denies SOB, cough GI: denies abdominal pain, vomiting, diarrhea : denies flank pain MSK: denies neck pain, myalgias, reports mild low back pain, right hip pain Skin: denies rash Neuro: denies headaches, numbness, weakness [facility] Medical History Anxiety Asthma Depression Diabetes GERD (gastroesophageal reflux disease) History of alcohol abuse HTN (hypertension) Hyperlipemia Liver cirrhosis Migraine Multiple sclerosis per pt. states that she has MS, and was seen by Dr. Marie in 2013 with was told she has MS (Pt. is a poor historian, states there is some confusion regarding this and her RLS). Unable to find any supporting evidence of this diagnosis, there is a note from Dr. Marie regarding leg cramping 06/30/19: Pt. has been under anesthesia @ [facility] with this condition reviewed, pt. states she doesn' think she has this condition but RLS -MRI brain in 2018 normal which rules out MS Restless leg syndrome Sleep apnea does not use device Surgical History History of colonoscopy History of esophagogastroduodenoscopy (EGD) History of hysterectomy History of thyroidectomy Hx of cholecystectomy S/P repair of ventral hernia Family History Other Diabetes Hypertension Stroke Social History Smoking/Tobacco Use Status: Current every day Tobacco Type: cigarettes Smoking risk assessment performed?: Yes Alcohol Intake: never Drug use: Never Substance use type: does not use Household members: none Number of Children: 3 Education Level: middle school current occupation: Disabled What is your relationship status?: Panel score (0-1 are the most socially isolated patients): 0 Do you feel safe at home: Yes Additional Social history: lives alone Exam Narrative Exam Narrative: Constitutional: well and [id number], pleasant, conversing normally HENT: head atraumatic/normocephalic, right scalp incision healing well without drainage/erythema, mucous membranes moist Eyes: conjunctiva normal, sclera normal, pupils 3mm b/l Neck: no stridor, normal ROM, trachea midline Chest: normal inspection Resp: normal work of breathing, LCTAB Cardio: normal rate, normal rhythm, no murmur appreciated GI: abdomen soft, non-tender, non-distended Back: normal inspection, no rash Skin: warm, dry, normal color, no rash Neuro: alert, not altered, cranial nerves II through XII intact, motor 5 out of 5 throughout, normal tone Ext: Moving all extremities equally, mild tenderness palpation right lateral hip, mild diffuse tenderness to palpation lumbar spine without crepitus/deformity/step-off Psych: normal mood, normal affect, normal behavior
[2020-02-21 12:57] VITALS: BP 128/74; PULSE 90; RESP 16; TEMP 36.6; O2SAT 97
--- NOTE | 2020-02-21 13:00 | DI.CT_ITS ---
EXAM: CT HEAD WO CLINICAL HISTORY: trauma, syncope vs seizure. TECHNIQUE: Imaging Protocol: Axial computed tomography images with coronal and sagittal reformatted images were created and reviewed COMPARISON: CT CT BRAIN NECK CTA from 01/19/2020 FINDINGS: Note is made of prior right temporal craniotomy with aneurysm clip at the right middle cerebral arter y distal M1 segment level. There is mild generalized cerebral atrophy. No evidence of acute intracranial hemorrhage, mass effect, or midline shift. The orbital structures are unremarkable. The temporal bone structures appear intact. Calvarium: Normal. Visualized Paranasal sinuses/Mastoids: Clear. IMPRESSION: No evidence of acute intracranial process. RADIATION DOSE DELIVERED: 727.96mGy.cm Total DLP 727.96mGy.cm Total DLP DATA REPOSITORY: All CT scans at this facility are submitted to the National Radiology Data Registry (NRDR) Dose Index Registry (DIR) with the [employer] (ACR). RADIATION OPTIMIZATION: All CT scans at this facility use at least one of these dose optimization te chniques: automated exposure control; mA and/or kV adjustment per patient size (includes targeted exa ms where dose is matched to clinical indication); or iterative reconstruction.
--- NOTE | 2020-02-21 13:00 | DI.RAD_ITS ---
EXAM: XR CHEST 2V PA LATERAL CLINICAL HISTORY: syncope vs seizure TECHNIQUE: 2D digital imaging was performed. COMPARISON: CR LUMBAR SPINE AP, LAT from 07/12/2016 CR XR pelvis AP from 04/05/2018 CR XR CHEST 2V PA LATERAL from 01/04/2020 CR XR CHEST 2V PA LATERAL from 02/21/2020 CR XR HIP RT COMPLETE AP PELVIS from 02/21/2020 FINDINGS: The heart is not enlarged. The lungs are clear and well expanded. No pleural effusion seen. Mediastin al contours appear intact. IMPRESSION: Normal chest. RADIATION DOSE DELIVERED: Total DLP
--- NOTE | 2020-02-21 13:00 | DI.RAD_ITS ---
EXAM: XR LUMBAR SPINE COMPLETE CLINICAL HISTORY: trauma, fall from standing TECHNIQUE: COMPARISON: CR LUMBAR SPINE AP, LAT from 07/12/2016 CR XR HIP RT COMPLETE AP PELVIS from 02/21/2020 FINDINGS: Five views of the lumbar spine and two views of the right hip and pelvis were obtained. There is no evidence of acute fracture of the spine pelvis or hips. There are moderate degenerative changes of t he lumbar spine with mild facet changes and moderate endplate hypertrophic changes particularly in th e mid lumbar region. Intervertebral disc spaces are fairly well maintained.There are mild degenerati ve changes of the SI joints bilaterally. Minimal hip DJD noted bilaterally. IMPRESSION: No evidence of acute fracture of the lumbar spine, right hip or pelvis. RADIATION DOSE DELIVERED: Total DLP
[2020-02-21 13:43] LABS: Abs Immature Grans 0.04 10^3/uL (0.0-0.06); Absolute Basophil Count 0.02 10^3/uL (0.0-0.2); Absolute Eosinophil Count 0.12 10^3/uL (0.0-0.7); Absolute Lymphocyte Count 1.98 10^3/uL (1.2-3.4); Absolute Monocyte Count 0.45 10^3/uL (0.1-0.8); Absolute Neutrophil Count 3.27 10^3/uL (1.2-6.7); Basophils % 0.3; HCT 35.3 % (36.0-46.0); HGB 11.4 g/dL (11.2-15.7); Immature Grans % 0.7; Lymphocytes % 33.7; MCH 28.1 pg (27.0-33.0); MCHC 32.3 % (32.0-36.0); MCV 87.2 fL (80-95); MPV 9.9 fL (8.0-11.0); Monocytes % 7.7; Neutrophils % 55.6; Nucleated RBC 0 %; Platelet Count 120 10^3/uL (130-400); RBC 4.05 10^6/uL (3.93-5.22); RDW-SD 43.7 fL; WBC 5.88 10^3/uL (4.4-10.8)
[2020-02-21 13:56] LABS: ALT 38 U/L (14-59); AST 37 U/L (15-37); Albumin 4.1 g/dL (3.4-5.0); Alkaline Phosphatase 105 U/L (46-116); Anion Gap 11.5 mmol/L (3-11); BUN 12 mg/dL (7-18); Bilirubin, Total 0.4 mg/dL (0.2-1.0); CO2 27.5 mmol/L (21.0-32.0); CREATININE 0.87 mg/dL (0.55-1.02); Calcium 9.1 mg/dL (8.5-10.1); Chloride 100 mmol/L (98-107); Glucose 153 mg/dL (74-106); Potassium 3.7 mmol/L (3.5-5.1); Sodium 139 mmol/L (136-145); Total Protein 7.5 g/dL (6.4-8.2)
[2020-02-21 14:01] LABS: Troponin I < 0.05 ng/mL (<0.06)
[2020-02-21] MEDS: levETIRAcetam 1,000 MG in Normal Saline 100 ML 400 MG IVPB (14:08)
[2020-02-21] MEDS: Normal Saline 1,000 ML 1000 ML IV (14:30)
[2020-02-21 17:04] LABS: Troponin I < 0.05 ng/mL (<0.06)
== END 2020-02-21 17:59 | disposition home or self-care (01) ==
PROVIDERS: Emergency Provider Student in an Organized Health Care Education/Training Program; PCP Family Medicine
DX: R55 Syncope and collapse (principal); M25.551 Pain in right hip; M54.5 Low back pain; Z95.828 Presence of other vascular implants and grafts; E11.9 Type 2 diabetes mellitus without complications; Z79.84 Long term (current) use of oral hypoglycemic drugs; I10 Essential (primary) hypertension; G35 Multiple sclerosis
CPT/HCPCS: 36415; 80053; 93005; 96361; 96365; 99285; 70450; 71046; 72110; 73502; 84484; 85025; 93010; 93225; J1953

== ENCOUNTER 2020-02-23 10:11 | Outpatient (CLI) | payer MEDICAID, SELFPAY ==
--- NOTE | 2020-02-23 12:22 | W.HOLTRPT ---
Date of service: 02/23/20 Time of Service: 12:22 Holter Monitor Report Referring Provider:: Juliet Acevedo Indications:: Dizziness/syncope Holter Monitor Note: This is a 24-hour Holter monitor reportedly ordered for the above symptoms. The rhythm throughout was sinus. Average heart rate was 90 bpm. Minimum was 70 and maximum 117 There were very rare atrial and ventricular ectopic beats. There was no supraventricular tachycardia, ventricular tachycardia, pauses greater than 3 seconds or high-grade AV block No cardiac symptoms were reported
== END 2020-02-23 10:31 ==
PROVIDERS: PCP Family Medicine; Visit Provider Student in an Organized Health Care Education/Training Program
DX: R55 Syncope and collapse (principal)
CPT/HCPCS: 93226

== ENCOUNTER 2020-02-25 00:33 | Outpatient (CLI) | payer MEDICAID, SELFPAY ==
--- NOTE | 2020-02-28 15:51 | PDOC.EEG ---
Neurology EEG EEG: [facility] Department of Neurology EEG REPORT Date of Recordin02/25/20 Interpreting Physician: Dr. Deborah Elaine PCP/Referring Provider: Dr. Grant Lindsey Reason for study: Ms. Darling is a 59 year-old woman with developmental cognitive delay, left handedness, numerous head injuries, and a recent right craniotomy with new onset spells concerning for seizure. Current Medications: Home Medications Medication Instructions Recorded Confirmed Type fluticasone propion-salmeterol 1 ea INHALATION BID 08/31/12 02/22/20 History [Advair Diskus] albuterol sulfate [ProAir HFA] 1 - 2 puff INHALATION Q6H PRN 05/04/14 02/22/20 History inhaler cyanocobalamin (vitamin B-12) 1,000 mcg PO DAILY 10/16/16 02/22/20 History [Vitamin B-12] metformin 1,000 mg PO BID 04/16/18 02/22/20 History pantoprazole 40 mg PO DAILY 04/16/18 02/22/20 History lisinopril 10 mg tablet 10 mg PO DAILY 06/21/19 02/22/20 History gabapentin 800 mg PO TID 12/25/19 02/22/20 History loratadine 10 mg PO HS 01/19/20 02/22/20 History carvedilol 6.25 mg PO BID 02/21/20 02/22/20 History furosemide 20 mg PO DAILY 02/21/20 02/22/20 History hydroxyzine HCl 25 mg PO BID 02/21/20 02/22/20 History metoclopramide HCl 10 mg PO DAILY 02/21/20 02/22/20 History famotidine 20 mg tablet 20 mg PO BID 02/22/20 02/22/20 History levetiracetam 500 mg tablet 500 mg PO BID #180 tab 02/22/20 02/22/20 Rx risperidone 1 mg tablet 0.5 mg PO DAILY tab 02/22/20 02/22/20 History METHODS: A 21 channel digitized electroencephalogram was performed in the [facility] Clinical Neurophysiology Laboratory. The 10/20 international system of electrode placement was used and bipolar and referential electrode montages were recorded. In addition to EEG the patient was monitored for EKG and lateral/vertical eye movements. Activation procedures of photic stimulation and hyperventilation were performed if applicable. Video was used during activation procedures and during events where applicable. The duration of the recording was 30 minutes. DESCRIPTION OF EEG: The patient was noted to be awake only during the recording. During maximal wakefulness a 9-Hz posterior background rhythm was present which was well-modulated, symmetrical, reactive to eye opening, and of moderate voltage. With eye opening the background activity changed to a low voltage mixture of alpha, beta, and occasional theta range frequencies. Faster frequencies were present in the bilateral anterior head regions. There was a normal anterior-posterior voltage gradient. No drowsiness or stage II sleep was recorded. There were rare, moderate-amplitude right frontoparietal sharp-waves (F4/P4) that were not clearly epileptiform and may be part of a breach rhythm. Activating Procedures: Photic stimulation was performed which produced a symmetrical posterior driving response at various flash frequencies. Hyperventilation was not performed. EKG: EKG revealed normal sinus rhythm. INTERPRETATION: This EEG is normal during the awake state as well as during photic stimulation. There were rare right frontoparietal sharp-waves (F4/P4) that were not clearly epileptiform and may be part of a breach rhythm. PRIOR EEG: none CLINICAL CORRELATION: No epileptiform activity was present. The sharps/breach rhythm are expected findings s/p craniotomy. No sleep was recorded during the study which reduces the sensitivity of the exam. If seizure remains a part of the differential, can consider a repeat sleep-deprived EEG or overnight ambulatory EEG. Deborah Elaine MD
== END 2020-02-25 00:53 ==
PROVIDERS: PCP Family Medicine; Visit Provider Psychiatry & Neurology Neurology
DX: R41.840 Attention and concentration deficit; F78 Other intellectual disabilities; R29.818 Other symptoms and signs involving the nervous system; Z87.820 Personal history of traumatic brain injury
CPT/HCPCS: 95816

== ENCOUNTER 2020-05-10 01:41 | Outpatient (CLI) | payer MEDICAID, SELFPAY ==
--- NOTE | 2020-05-10 | DI.NM_ITS ---
CLINICAL HISTORY: EPIGASTRIC PAIN,R10.13,DIABETES,CIRRHOSIS,? GASTROPARESIS,EARLY SATIETY. COMPARISON: No exams were available for comparison EXAMINATION: PO Dose: 0.9 mCi Sulfur colloid mixed with 2 eggs. Two slices of white toast with butt er and strawberry jam as well as 8 ounces of water were also administered. Images: Immediately and at 1 hour, 2 hours and 4 hours. FINDINGS: The gastric emptying at 1 hour is calculated to be 6%, below the normal range. At 2 hours the gastric emptying was 24 percent. At 4 hours the gastric emptying was 98 percent. The T1/2 is 161 min, abnormally delayed. IMPRESSION: 1. delayed gastric emptying. SNM guidelines: 40% or more gastric emptying at 90 minutes is considered normal. Normal T 1/2 < 50 mi nutes. < 30% at 1 hour signifies abnormal rapid gastric emptying.
== END 2020-05-10 02:01 ==
PROVIDERS: PCP Family Medicine; Visit Provider Family Medicine
DX: K30 Functional dyspepsia (principal)
CPT/HCPCS: 78265

== ENCOUNTER 2020-08-07 02:42 | Outpatient (CLI) | payer MEDICAID, SELFPAY ==
--- NOTE | 2020-08-07 13:58 | DI.MAMMO_ITS ---
EXAM: MG MAMMO DIAGNOSTIC BI CLINICAL HISTORY: BILAT BREAST PAIN,N64.4. TECHNIQUE: Both CC and MLO views of both breasts were obtained with 3D [employer] and ut ilizing computer aided detection (CAD). COMPARISON: Prior mammograms dating back to 2010, most recent being 2014. FINDINGS: Subtle asymmetric density in the right breast is unchanged from at least 2015 therefore benign. No new spiculated masses nor malignant-appearing microcalcification groups in either breast. Benign- appearing microcalcifications are again noted in both breast. No new architectural distortion or skin thickening-traction. IMPRESSION: Stable benign findings. No radiographic evidence of malignancy. BI-RADS Category 2 - Benign Findings Breast Density - Category B - Scattered areas of fibroglandular density Breast density Category C or D implies that the patient has dense breast tissue. Dense breast tissue can make it harder to find cancer on a mammogram. Dense breast tissue is also associated with an incr eased risk of breast cancer. This information about the result of the mammogram report was provided to the patient to raise their awareness. Use this report when you speak with the patient about their risks for breast cancer, which includes their family history. At that time, you may recommend additional screening tests (Ultrasoun d or MRI) as these tests may add significant information. A negative radiographic report should not delay biopsy if a dominant or clinically suspicious mass is present. Up to ten percent of cancers are not identified on mammography. A negative report may reinforce clinical impression. Adenosis and dense breasts may obscure an underlying neoplasm. False positive reports average 6 to 10%. Patient will receive a letter notifying them of these results.
== END 2020-08-07 03:02 ==
PROVIDERS: PCP Family Medicine; Visit Provider Family Medicine
DX: N64.4 Mastodynia (principal); R92.0 Mammographic microcalcification found on diagnostic imaging of breast
CPT/HCPCS: 77062; 77066; G0279

== ENCOUNTER 2020-12-27 14:32 | Outpatient (REF) | payer MEDICAID, SELFPAY ==
[2020-12-27 14:49] LABS: HCT 36.7 % (36.0-46.0); HGB 11.9 g/dL (11.2-15.7); MCH 28.6 pg (27.0-33.0); MCHC 32.4 % (32.0-36.0); MCV 88.2 fL (80-95); MPV 10.6 fL (8.0-11.0); Platelet Count 113 10^3/uL (130-400); RBC 4.16 10^6/uL (3.93-5.22); RDW 14.6 % (11.7-14.6); RDW-SD 46.4 fL; WBC 5.15 10^3/uL (4.4-10.8)
[2020-12-27 15:01] LABS: ALT 30 U/L (14-59); AST 32 U/L (15-37); Alkaline Phosphatase 125 U/L (46-116); BUN 10 mg/dL (7-18); Bilirubin, Total 0.5 mg/dL (0.2-1.0); CREATININE 0.9 mg/dL (0.55-1.02); Calcium 8.7 mg/dL (8.5-10.1); Chloride 106 mmol/L (98-107); Glucose 108 mg/dL (74-106); Potassium 4.1 mmol/L (3.5-5.1); Sodium 142 mmol/L (136-145); TSH (W/Ref FT4) 1.91 uIU/mL (0.36-3.74); Total Protein 7.1 g/dL (6.4-8.2)
[2020-12-27 15:40] LABS: INR 1.1 (0.9-1.1); Prothrombin Time 11.1 sec (9.3-11.0)
== END 2020-12-27 14:33 | disposition home or self-care (01) ==
LOC: NCHCN 14:32
PROVIDERS: PCP Family Medicine; Visit Provider Family Medicine
DX: E03.9 Hypothyroidism, unspecified (principal); K70.30 Alcoholic cirrhosis of liver without ascites
CPT/HCPCS: 80053; 85027; 84443; 85610

== ENCOUNTER 2021-01-08 11:47 | Outpatient (CLI) | payer MEDICAID, SELFPAY ==
--- NOTE | 2021-01-08 | DI.RAD_ITS ---
Exam(s) XR KNEE RT 3V AP,LAT,BERNARDA EXAM: XR KNEE RT 3V AP,LAT,BERNARDA CLINICAL HISTORY: RT KNEE PAIN, M25.561. TECHNIQUE: 2D digital imaging was performed. COMPARISON: CR XR knee RT 3V AP,lat,bernarda from 10/04/2018 FINDINGS: No evidence of fracture or obvious joint effusion. Mild joint space narrowing in the medial compartm ent and chondrocalcinosis noted in both medial and lateral compartments. No osteophytes. There is s ome calcification lung to truly orientated within the quadriceps, this located 4 cm above the superio r pole the patella and measuring 1 cm length by 0.3 cm. IMPRESSION: Quadriceps calcification. Mild degenerative changes in the knee joint. No obvious joint effusion. DATA REPOSITORY: RADIATION DOSE DELIVERED:
== END 2021-01-08 12:07 ==
PROVIDERS: PCP Family Medicine; Visit Provider Family Medicine
DX: M25.561 Pain in right knee (principal); M17.11 Unilateral primary osteoarthritis, right knee; M65.261 Calcific tendinitis, right lower leg
CPT/HCPCS: 73562

== ENCOUNTER 2021-01-22 16:46 | Emergency (ER) | payer MEDICAID, SELFPAY ==
[2021-01-22] VITALS (47 sets, daily range): BP systolic 108–139; BP diastolic 57–93; PULSE 65–86; RESP 11–21; TEMP 36.2–36.6; O2SAT 94–98
--- NOTE | 2021-01-22 16:45 | RT.EKG_ITS ---
APPROVED REPORT Exam: Resting ECG Reason for Exam: chest pain Patient Location: E HR:78 bpm ECG Measurements Heart Rate 78 AXIS VT 174 P 29 QRSd 102 QRS -4 QT 386 T 15 QTc 439 Conclusion Sinus rhythm...normal P axis, V-rate 60- 99 Low voltage, precordial leads...precordial leads <1.0mV. Sinus. No STEMI. I have reviewed and interpreted ECG and agree with software generated interpretation.
--- NOTE | 2021-01-22 17:45 | ED.GENADUL_ITS ---
Discharge Plan Disposition Patient Disposition: HOME Condition: Stable Discharge Details Clinical Impression: Chest pain, Stress Primary Care Provider: Grant Lindsey ED Provider: Ban Lawson Home Meds and New Rx's Prescriptions: Continued lisinopril 10 mg tablet 10 mg PO DAILY RF: 0 zonisamide 100 mg capsule 200 mg PO HS Qty: 60 RF: 11 famotidine 20 mg tablet 20 mg PO BID RF: 0 albuterol sulfate [ProAir HFA] 8.5 GM HFA aerosol inhaler 1 - 2 puff Inhalation Q6H PRN RF: 0 fluticasone propion-salmeterol [Advair Diskus] 1 EACH blister with device 1 ea Inhalation BID RF: 0 cyanocobalamin (vitamin B-12) [Vitamin B-12] 1,000 MCG tablet 1,000 mcg PO DAILY RF: 0 gabapentin 800 mg tablet 800 mg PO TID RF: 0 carvedilol 6.25 mg tablet 6.25 mg PO BID RF: 0 hydroxyzine HCl 25 mg Tablet 25 mg PO BID RF: 0 furosemide 20 mg Tablet 20 mg PO DAILY RF: 0 risperidone 1 mg tablet 0.5 mg PO DAILY RF: 0 metformin 500 mg Tablet 1,000 mg PO BID RF: 0 pantoprazole 40 mg Tablet,Delayed Release (Dr/Ec) 40 mg PO DAILY RF: 0 loratadine 10 mg Tablet 10 mg PO HS RF: 0 Discharge Instructions Instructions: Chest Pain (ED), Stress (ED) Additional Instructions: Your labs and imaging here are reassuring. The symptoms sound to be brought on during. Of large amount of stress and anxiety. Please call your counselor tomorrow to schedule follow-up appointment and discuss further stress reduction techniques. Please continue with your breathing exercises as previously advised. Please follow-up with your primary care in 1 week for reevaluation of your chest pain. If you develop any fevers, chills, increased pain, shortness of breath, vomiting or other new/worsening symptoms please seek care urgently once again. Referrals: Grant Lindsey [Primary Care Provider] - Discharge Data Discharge Date/Time-TO BE ENTERED AT DEPARTURE: 01/22/21 21:08 Medical Decision Making Patient is a pleasant 60-year-old female presenting today with chief complaint of chest pain states the chest pain came on a few minutes prior to arrival. States that she was sitting in her chair watching the wall symptoms came on. She reports that she had the same thing per yesterday, again when sitting at rest watching TV. She denies any radiation of pain. Denies feeling short of breath. No nausea or vomiting. Has not had pain like this historically. Denies any history of personal or family cardiac disease. Denies feeling lightheaded to the or any syncopal episodes. She does report that she has some posterior right calf tenderness. No change or correlation with PO intake. Patient initially told nursing staff that her pain was, crushing. However, she reports to myself that her pain had resolved prior to arrival and that it was a mild pressure. On exam, patient appears nontoxic. She states that her pain has resolved and she is feeling much more comfortable at this time. Her lungs are clear. Normal cardiac auscultation. She has no lower extremity edema. The calves are soft and nontender bilaterally. However, the patient does she been having some discomfort in the right calf. she reports it feels like spasm. Did consider DVT and PE causing her chest discomfort. Chest pain does not seem to have a pleuritic component. Her chest pain is reproducible on exam. Will screen with Labs with a D-Dimer. Low Suspicion for ACS As This Is NonExertionally Based. However, I Will Obtain EKG and 2 Troponins. Discussed ASA but patient declines as she has hx of allergy. Labs reviewed. No leukocytosis. Stable H&H. D-dimer is above age-adjusted at 649. CMP without significant abnormality. Alk phos is slightly elevated at 123 but the chronic. Initial troponin is less than 0.05. As patient had pain shortly before coming in, I do feel that repeat would be appropriate. Will obtain CTA for further evaluation of her chest pain with the elevated D-dimer. FINDINGS: Pulmonary arteries: No pulmonary emboli. Aorta: No aortic aneurysm. No aortic dissection. Lungs: No consolidation. No masses. Pleural spaces: No pneumothorax. No pleural effusion. Heart: No cardiomegaly. No pericardial effusion. Lymph nodes: No enlarged lymph nodes. Bones/joints: No acute fracture. Soft tissues: Unremarkable. IMPRESSION: No acute findings. Discussed these finding with [facility] patient. She remains asymptaomatic. She has been resting, sleeping, and hemodynamically stable. Repeat troponin remains less than 0.05. Discussed the findings with the patient. She and I again discussed triggering symptoms. She states that when she has the symptoms come on, it is typically when she is very stressed or anxious. This has occurred only when watching TV at home. States that she has been using breathing techniques as advised by her counselor but does not find it sufficient. Has not seen her counselor in some time. She reports that she will call tomorrow to schedule follow-up appointment. Reports that typically when she has increased anxiety it can manifest with chest discomfort, likely causing the symptoms that brought her in today. Patient and I discussed return precautions. I advised that she f/u with PCP as well as her counselor. Patient feels safe to be d/c to home, will return with any new/worsening symptoms. All of her questions and concerns were addressed, she is in agreement with this plan. HPI General Mode of arrival: ambulatory . Date/Time Provider Initiated Documentation: 01/22/21 17:45 . Limitations to Documentation: no limitations . Information obtained by: patient, RN notes reviewed and old records reviewed . History of Present Illness 60 year old F presents to the emergency department with the chief complaint of chest pressure, described as mild (states that pain is resolved) and similar to prior episodes, with intensity rated at 1. Quality is described as other (pressure), and is localized to the chest. Patient reports no radiation. Patient started experiencing this minute(s) and it has been now resolved. No relieving factors improve symptom(s), No exacerbating factors reported . Patient notes chest pain; denies cough, diaphoresis, fever/chills, headaches, loss of appetite, nausea/vomiting, rash, shortness of breath and syncope. Patient did receive the following treatments prior to arrival, none Related Data Home Medications Medication Instructions Recorded Confirmed fluticasone propion-salmeterol 1 ea INHALATION BID 08/31/12 01/22/21 [Advair Diskus] albuterol sulfate [ProAir HFA] 1 - 2 puff INHALATION Q6H PRN 05/04/14 01/22/21 inhaler cyanocobalamin (vitamin B-12) 1,000 mcg PO DAILY 10/16/16 01/22/21 [Vitamin B-12] metformin 1,000 mg PO BID 04/16/18 01/22/21 pantoprazole 40 mg PO DAILY 04/16/18 01/22/21 lisinopril 10 mg tablet 10 mg PO DAILY 06/21/19 01/22/21 gabapentin 800 mg PO TID 12/25/19 01/22/21 loratadine 10 mg PO HS 01/19/20 01/22/21 carvedilol 6.25 mg PO BID 02/21/20 07/18/20 furosemide 20 mg PO DAILY 02/21/20 01/22/21 hydroxyzine HCl 25 mg PO BID 02/21/20 01/22/21 famotidine 20 mg tablet 20 mg PO BID 02/22/20 01/22/21 risperidone 1 mg tablet 0.5 mg PO DAILY tab 02/22/20 07/18/20 zonisamide 100 mg capsule 200 mg PO HS #60 cap 07/18/20 01/22/21 Previous Rx's Medication Instructions Recorded zonisamide 100 mg capsule 200 mg PO HS #60 cap 07/18/20 Allergies Allergy/AdvReac Type Severity Reaction Status Date / Time amoxicillin trihydrate Allergy rash/gi Unverified 01/22/21 16:59 [From Augmentin] upset bacitracin Allergy Skin Rash Unverified 01/22/21 16:59 [From Neosporin ([id number])] bacitracin zinc Allergy Skin Rash Unverified 01/22/21 16:59 [From Neosporin ([id number])] neomycin sulfate Allergy Skin Rash Unverified 01/22/21 16:59 [From Neosporin ([id number])] polymyxin B Allergy Skin Rash Unverified 01/22/21 16:59 [From Neosporin ([id number])] potassium clavulanate Allergy rash/gi Unverified 01/22/21 16:59 [From Augmentin] upset aspirin AdvReac Nausea Unverified 01/22/21 16:59 lactose AdvReac gi upset Unverified 01/22/21 16:59 General Stated Complaint: Chest Pain ALLYSON: 2 Review of Systems Constitutional Constitutional: Reports as per HPI, Denies chills, Denies fever(s), Denies headache(s) and Denies poor appetite ENT Ears, Nose, Mouth, and Throat: Denies dizziness and Denies headache(s) Cardiovascular Cardiovascular: Reports as per HPI, Reports chest pain, Reports chest pain at rest, Denies chest pain with activity, Denies dyspnea and Denies dyspnea on exertion Respiratory Respiratory: Reports as per HPI, Denies cough, Denies pain on inspiration, Denies dyspnea, Denies dyspnea on exertion and Denies wheezing Gastrointestinal Gastrointestinal: Reports as per HPI, Denies abdominal pain, Denies nausea and Denies vomiting Musculoskeletal Musculoskeletal: Reports as per HPI and Denies back pain Integumentary/Breasts Skin/Breast: Reports as per HPI and Denies rash Neurologic Neurologic: Reports as per HPI, Denies dizziness and Denies headache(s) Allergic/Immunologic Allergic/Immunologic: Denies wheezing [facility] Medical History Anxiety Asthma Depression Diabetes GERD (gastroesophageal reflux disease) History of alcohol abuse HTN (hypertension) Hyperlipemia Liver cirrhosis Migraine Multiple sclerosis per pt. states that she has MS, and was seen by Dr. Marie in 2013 with was told she has MS (Pt. is a poor historian, states there is some confusion regarding this and her RLS). Unable to find any supporting evidence of this diagnosis, there is a note from Dr. Marie regarding leg cramping 06/30/19: Pt. has been under anesthesia @ [facility] with this condition reviewed, pt. states she doesn' think she has this condition but RLS -MRI brain in 2018 normal which rules out MS Restless leg syndrome Sleep apnea does not use device Surgical History History of colonoscopy History of esophagogastroduodenoscopy (EGD) History of hysterectomy History of thyroidectomy Hx of cholecystectomy S/P repair of ventral hernia Family History Other Diabetes Hypertension Stroke Social History Smoking/Tobacco Use Status: Current every day Tobacco Type: cigarettes Smoking risk assessment performed?: Yes Alcohol Intake: never Drug use: Never Substance use type: does not use Household members: none Number of Children: 3 Education Level: middle school current occupation: Disabled What is your relationship status?: Panel score (0-1 are the most socially isolated patients): 0 Do you feel safe at home: Yes Additional Social history: lives alone Exam Const General: cooperative, healthy appearing, comfortable, no acute distress, well developed and anxious Nutritional Appearance: well nourished and overweight Orientation: alert, awake and oriented x3 Chest Chest: normal inspection of the chest, normal palpation of entire chest wall, no crepitus and tenderness (left upper chest wall, no rash, no evidence of trauma, no erythema) Resp Effort & Inspection: normal respiratory effort, able to speak in complete senten leanna and no respiratory distress Auscultation: clear to auscultation bilaterally, no rales, no rhonchi and no wheezes Cardio Rate: regular rate Rhythm: regular rhythm Heart Sounds: S1 normal and S2 normal GI Inspection: normal to inspection, no edema and non-distended Palpation: soft, not firm, no guarding, not rigid and nontender Auscultation: normal bowel sounds Skin General skin exam: no rashes or lesions noted Trauma: no lacerations or abrasions Neuro General: patient alert, patient awake and patient oriented x3 Cognition: normal cognition Speech: speech normal Gait: normal gait Extrem General: normal to inspection, capillary refill normal, no pedal edema, no calf tenderness and normal gait Psych Appearance: grossly normal and well kempt Mental Status: mental status grossly normal Speech and Movement: speech and movement normal Course Vital Signs Vital signs: Vital Signs Temperature 36.6 C 01/22/21 16:52 Pulse 81 01/22/21 16:52 Respiratory Rate 16 01/22/21 16:52 Blood Pressure 126/60 01/22/21 16:52 Pulse Oximetry 98 01/22/21 16:52 Temperature 36.6 C 01/22/21 16:52 Pulse 81 01/22/21 16:52 Respiratory Rate 14 01/22/21 17:08 Respiratory Effort Non-Labored 01/22/21 17:08 Respiratory Depth Normal 01/22/21 17:08 Respiratory Pattern Normal 01/22/21 17:08 Blood Pressure 126/60 01/22/21 16:52 Pulse Oximetry 98 01/22/21 16:52 Oxygen Delivery Method Room Air 01/22/21 16:52 Oxygen Flow Rate 0 01/22/21 16:52 Pain Level 10 01/22/21 16:52 Comment 01/22/21 16:52
[2021-01-22 18:02] LABS: Abs Immature Grans 0.02 10^3/uL (0.0-0.06); Absolute Basophil Count 0.02 10^3/uL (0.0-0.2); Absolute Eosinophil Count 0.15 10^3/uL (0.0-0.7); Absolute Lymphocyte Count 1.75 10^3/uL (1.2-3.4); Absolute Neutrophil Count 2.76 10^3/uL (1.2-6.7); Basophils % 0.4; HCT 35.8 % (36.0-46.0); HGB 11.5 g/dL (11.2-15.7); Immature Grans % 0.4; MCH 28.6 pg (27.0-33.0); MCHC 32.1 % (32.0-36.0); MCV 89.1 fL (80-95); MPV 10.3 fL (8.0-11.0); Neutrophils % 55.2; Nucleated RBC 0 %; Platelet Count 109 10^3/uL (130-400); RBC 4.02 10^6/uL (3.93-5.22); RDW 13.8 % (11.7-14.6); RDW-SD 45.3 fL
[2021-01-22 18:16] LABS: ALT 28 U/L (14-59); AST 33 U/L (15-37); Albumin 3.8 g/dL (3.4-5.0); Alkaline Phosphatase 123 U/L (46-116); Anion Gap 8.4 mmol/L (3-11); BUN 12 mg/dL (7-18); Bilirubin, Total 0.2 mg/dL (0.2-1.0); CO2 26.6 mmol/L (21.0-32.0); CREATININE 0.9 mg/dL (0.55-1.02); Calcium 8.8 mg/dL (8.5-10.1); Chloride 106 mmol/L (98-107); Glucose 148 mg/dL (74-106); Potassium 3.6 mmol/L (3.5-5.1); Sodium 141 mmol/L (136-145)
[2021-01-22 18:18] LABS: Troponin I < 0.05 ng/mL (<0.06)
--- NOTE | 2021-01-22 18:30 | DI.CT_ITS ---
Exam(s) CT CHEST PE CTA EXAM: CT CHEST PE CTA CLINICAL HISTORY: CP, elevated dimer. TECHNIQUE: Imaging Protocol: CT angiography of the chest was performed using pulmonary embolus tyson col. Multi planar reconstructions were performed. CONTRAST MATERIAL: Intravenous: Omnipaque 350 Contrast volume: 75 cc COMPARISON: CT CT BRAIN NECK CTA from 01/19/2020 FINDINGS: CHEST: Images blurred by mild respiratory motion artifact. PULMONARY ARTERIES: There are no intraluminal filling defects to suggest acute pulmonary emboli. LUNGS: There are no infiltrates nor evidence of pulmonary infarction.. There are no pleural effusions . MEDIASTINUM: There is no hilar nor mediastinal adenopathy. Scratch CARDIAC: Heart size is upper normal. There is no pericardial effusion.Caliber of the thoracic aorta is within normal limits. There is no significant shift of the interventricular septum. PARTIALLY VISUALIZED UPPERMOST ABDOMEN: No obvious findings OSSEOUS: No significant osseous lesions.. IMPRESSION: 1. No evidence of acute pulmonary emboli. No evidence of pulmonary infarction.No pleural effusions. No confluent infiltrates. No intrathoracic adenopathy RADIATION DOSE DELIVERED: 452.45mGy.cm Total DLP DATA REPOSITORY: All CT scans at this facility are submitted to the National Radiology Data Registry (NRDR) Dose Index Registry (DIR) with the [employer] (ACR). RADIATION OPTIMIZATION: All CT scans at this facility use at least one of these dose optimization te chniques: automated exposure control; mA and/or kV adjustment per patient size (includes targeted exa ms where dose is matched to clinical indication); or iterative reconstruction.
[2021-01-22 18:31] LABS: D-Dimer 649 ng/mlFEU (<500)
[2021-01-22] MEDS: Omnipaque 350 MG/ML 100 ML BTL IJ (19:24)
[2021-01-22] MEDS: Normal Saline - Diluent 50 ML VIAL IV (19:25)
--- NOTE | 2021-01-22 19:43 | DI.VRAD_ITS ---
PROCEDURE INFORMATION: Exam: CTA Chest With Contrast Exam date and time: 01/22/2021 6:43 PM Age: 60 years old Clinical indication: Pain; Left-sided; Patient HX: Cp, elevated d dimer TECHNIQUE: Imaging protocol: Computed tomographic angiography of the chest with contrast. 3D rendering (Not supervised by radiologist): MIP and/or 3D reconstructed images were created by the technologist. COMPARISON: CT CHEST PE CTA 10/08/2019 2:06 PM FINDINGS: Pulmonary arteries: No pulmonary emboli. Aorta: No aortic aneurysm. No aortic dissection. Lungs: No consolidation. No masses. Pleural spaces: No pneumothorax. No pleural effusion. Heart: No cardiomegaly. No pericardial effusion. Lymph nodes: No enlarged lymph nodes. Bones/joints: No acute fracture. Soft tissues: Unremarkable. IMPRESSION: No acute findings. Dictated and Authenticated by: Roly Vasquez MD. Ordering:ANGELA Cevallos MD
--- NOTE | 2021-01-22 20:00 | RT.EKG_ITS ---
APPROVED REPORT Exam: Resting ECG Reason for Exam: chest pain Patient Location: E HR:71 bpm ECG Measurements Heart Rate 71 AXIS KS 183 P 41 QRSd 106 QRS 39 QT 420 T 27 QTc 457 Conclusion Sinus rhythm...normal P axis, V-rate 60- 99. Sinus. No STEMI. I have reviewed and interpreted ECG and agree with software generated interpretation.
[2021-01-22 20:46] LABS: Troponin I < 0.05 ng/mL (<0.06)
== END 2021-01-22 21:08 | disposition home or self-care (01) ==
PROVIDERS: Emergency Provider Physician Assistant; PCP Family Medicine
DX: R07.89 Other chest pain (principal); F43.8 Other reactions to severe stress; R79.1 Abnormal coagulation profile
CPT/HCPCS: 36415; 71275; 80053; 93005; 99285; 83735; 84484; 85025; 85379; 93010; 99284; J3490

== ENCOUNTER 2021-01-24 03:08 | Outpatient (CLI) | payer MEDICAID, SELFPAY ==
--- NOTE | 2021-01-24 | DI.US_ITS ---
Exam(s) US ABDOMEN EXAM: US ABDOMEN CLINICAL HISTORY: ALCOHOLIC LIVER CIRRHOSIS,K70.30,HCC SCREEN TECHNIQUE: Ultrasound of complete upper abdomen performed using standard protocol. COMPARISON: US US ABDOMEN from 12/24/[address] CHEST PE CTA from 01/22/2021 FINDINGS: There is no ascites evident. LIVER: Liver is enlarged and hyperechoic indicating steatosis. There are no obvious discrete focal h epatic lesions evident on these images. GALLBLADDER/BILIARY: Gallbladder surgically absent. The common hepatic duct isdilated, measuring 9-10mm at the level of brandie hepatis. PANCREAS: There is no evidence of pancreatic mass nor dilatation of the pancreatic duct. SPLEEN: Splenomegaly KIDNEYS:Kidneys exhibit normal size with no evidence of solid mass, calculus, nor hydronephrosis. No cortical cysts evident. ABDOMINAL AORTA: There is no evidence of abdominal aortic aneurysm. IVC: Normal diameter where visualized. IMPRESSION: 1. Hepatosplenomegaly. Also hepatic steatosis. Correlation with appropriate hepatic blood work rec ommended 2. The gallbladder surgically absent. Slightly prominent CBD diameters probably related to post cho lecystectomy status. 3. There is no ascites. DATA REPOSITORY:
== END 2021-01-24 03:28 ==
PROVIDERS: PCP Family Medicine; Visit Provider Family Medicine
DX: K70.30 Alcoholic cirrhosis of liver without ascites (principal); M25.561 Pain in right knee; K76.0 Fatty (change of) liver, not elsewhere classified; R16.2 Hepatomegaly with splenomegaly, not elsewhere classified; Z90.49 Acquired absence of other specified parts of digestive tract
CPT/HCPCS: 76700

== ENCOUNTER 2021-06-04 01:46 | Outpatient (CLI) | payer MEDICAID, SELFPAY ==
--- NOTE | 2021-06-04 | DI.US_ITS ---
Exam(s) US ABDOMEN EXAM: US ABDOMEN CLINICAL HISTORY: CIRRHOSIS, NEW RUQ ABD PAIN,S/P CHOLECYSTECTOMY TECHNIQUE: Ultrasound of complete upper abdomen performed using standard protocol. COMPARISON: US US ABDOMEN from 01/24/2021 FINDINGS: There is no ascites evident. LIVER: Liver is mildly enlarged and exhibits somewhat coarse echotexture. The portal vein is dilated to diameter 1.6 cm. Probably element of portal venous hypertension. Splenomegaly also noted.. GALLBLADDER/BILIARY: The gallbladder surgically absent. No fluid in the gallbladder fossa. The common hepatic duct isdilated, measuring 8mm at the level of brandie hepatis. Probably related to the post cholecystectomy status. PANCREAS: Less than optimally seen due to overlying bowel gas. SPLEEN: Splenomegaly. The spleen measures 16 cm length. KIDNEYS:Kidneys exhibit normal size with no evidence of solid mass, calculus, nor hydronephrosis. No cortical cysts evident. ABDOMINAL AORTA: Not completely visualized due to overlying bowel gas. IVC: Normal diameter where visualized. IMPRESSION: 1. Gallbladder surgically absent. Mild prominence of diameter of the common hepatic duct is most pr obably related to the post cholecystectomy status. 2. Hepatomegaly, cirrhotic appearing liver, and splenomegaly. Prominent portal vein. Findings cons istent with portal venous hypertension. 3. There is no ascites. DATA REPOSITORY:
--- NOTE | 2021-06-04 07:39 | DI.RAD_ITS ---
Exam(s) XR ELBOW LT COMPLETE EXAM: XR ELBOW LT COMPLETE CLINICAL HISTORY: LT ELBOW PAIN, M25.522. TECHNIQUE: 2D digital imaging was performed. COMPARISON: CR XR elbow RT complete from 07/29/2018 FINDINGS: Four views of the left elbow reveal no evidence of fracture or joint effusion. Radial head and neck appear unremarkable. No swelling of the olecranon bursa. No osseous lesions. No radiopaque foreign body. Soft tissue swelling is noted over the dorsal aspect of the forearm. IMPRESSION: No fracture or joint effusion. Soft tissue swelling evident DATA REPOSITORY: RADIATION DOSE DELIVERED:
== END 2021-06-04 02:06 ==
PROVIDERS: PCP Family Medicine; Visit Provider Nurse Practitioner Family
DX: M25.522 Pain in left elbow (principal); M79.89 Other specified soft tissue disorders; R10.11 Right upper quadrant pain; K74.69 Other cirrhosis of liver; R16.2 Hepatomegaly with splenomegaly, not elsewhere classified; Z90.49 Acquired absence of other specified parts of digestive tract; K76.6 Portal hypertension
CPT/HCPCS: 73080; 76700

== ENCOUNTER 2021-06-12 01:20 | Outpatient (CLI) | payer MEDICAID, SELFPAY ==
--- NOTE | 2021-06-12 | DI.RAD_ITS ---
Exam(s) XR SHOULDER LT COMPLETE 2+V EXAM: XR SHOULDER LT COMPLETE 2+V CLINICAL HISTORY: S/P FALL AND BLUNT IMPACT, LT SHOULDER PAIN,M25.512. TECHNIQUE: 2D digital imaging was performed of the left shoulder. Five images were obtained. AP, G rashey, Y-view and axillary views were obtained. COMPARISON: No exams were available for comparison FINDINGS: BONES: No acute fracture is present. No bony destructive lesion is seen. JOINTS: No dislocation present. Mild degenerative changes are seen at the acromioclavicular joint. SOFT TISSUE: Normal. IMPRESSION: No acute fracture or dislocation. DATA REPOSITORY: RADIATION DOSE DELIVERED:
== END 2021-06-12 01:40 ==
PROVIDERS: PCP Family Medicine; Visit Provider Nurse Practitioner Family
DX: M25.512 Pain in left shoulder (principal); S40.012A Contusion of left shoulder, initial encounter; W19.XXXA Unspecified fall, initial encounter
CPT/HCPCS: 73030

== ENCOUNTER 2021-06-25 12:08 | Outpatient (REF) | payer MEDICAID, SELFPAY ==
[2021-06-25 14:44] LABS: HCT 37.1 % (36.0-46.0); HGB 11.8 g/dL (11.2-15.7); MCH 27.6 pg (27.0-33.0); MCHC 31.8 % (32.0-36.0); MCV 86.7 fL (80-95); MPV 10.7 fL (8.0-11.0); Platelet Count 124 10^3/uL (130-400); RBC 4.28 10^6/uL (3.93-5.22); RDW 14.1 % (11.7-14.6); RDW-SD 44.9 fL; WBC 4.96 10^3/uL (4.4-10.8)
[2021-06-25 14:59] LABS: INR 1.1 (0.9-1.1); Prothrombin Time 11.3 sec (9.3-11.0)
[2021-06-25 15:25] LABS: ALT 24 U/L (14-59); AST 26 U/L (15-37); Albumin 4.1 g/dL (3.4-5.0); Alkaline Phosphatase 109 U/L (46-116); Anion Gap 12.8 mmol/L (3-11); BUN 10 mg/dL (7-18); Bilirubin, Total 0.4 mg/dL (0.2-1.0); CO2 24.2 mmol/L (21.0-32.0); CREATININE 0.9 mg/dL (0.55-1.02); Calcium 8.7 mg/dL (8.5-10.1); Chloride 102 mmol/L (98-107); Glucose 154 mg/dL (74-106); Potassium 3.5 mmol/L (3.5-5.1); Sodium 139 mmol/L (136-145)
[2021-06-26 10:09] LABS: HIV-1/2 Ag & Ab Screen Negative (Negative)
== END 2021-06-25 12:09 | disposition home or self-care (01) ==
LOC: NCHCN 12:08
PROVIDERS: PCP Family Medicine; Visit Provider Family Medicine
DX: K70.30 Alcoholic cirrhosis of liver without ascites (principal)
CPT/HCPCS: 80053; 85027; 87389; 85610

== ENCOUNTER 2021-07-25 02:00 | Outpatient (CLI) | payer MEDICAID, SELFPAY ==
--- NOTE | 2021-07-25 09:12 | DI.CT_ITS ---
Exam(s) CT BRAIN CTA EXAM: CT BRAIN CTA CLINICAL HISTORY: s/p clipping,S/P ANEURYSM REPAIR,H/O CEREBRAL ANEURYSM,Z86.79. TECHNIQUE: Imaging Protocol: Axial CT angiography was performed with multi-slice acquisition and mu lti-planar and/or 3D reconstructions. CONTRAST MATERIAL: Intravenous: Omnipaque 350 Contrast volume:structured data in ml Intravenous: Omnipaque 350 Contrast volume:85 ml COMPARISON: CT CT BRAIN NECK CTA from 01/19/2020 MR MR HEAD WO CONTRAST from 02/03/[address] CHEST PE CTA from 01/22/2021 FINDINGS: CT Head W/O and W contrast: Ventricles and Extra axial spaces: Normal in size and morphology for the patient's age. Hemorrhage: None. Cerebral parenchyma: Aneurysm clip anterior right temporal fossa. No acute hemorrhage, mass or infar ct. Stable atrophy. Midline shift: None. Brainstem/Cerebellum: Normal. Calvarium: Right temporal and frontal craniotomy defects Visualized Paranasal sinuses/Mastoids: Clear. Soft Tissues: Unremarkable. Enhancement: No abnormal areas of enhancement.. CTA Brain W: Internal Carotid Arteries: Petrous: Mild calcification. No significant stenosis. Cavernous: Normal. Cerebral: Normal. Middle Cerebral Arteries: Right: Aneurysm clip right MCA. Mild artifact. No aneurysm, occlusion or significant stenosis visib le. Left: No aneurysm, occlusion or significant stenosis. Anterior Cerebral Arteries: Right: no aneurysm, occlusion or significant stenosis. Left: No aneurysm, occlusion or significant stenosis. Posterior cerebral Arteries: Right: No aneurysm, occlusion or significant stenosis. Left: No aneurysm, occlusion or significant stenosis. Vertebral Arteries: Right: No aneurysm, occlusion or significant stenosis. Left: No aneurysm, occlusion or significant stenosis. Basilar Artery: No aneurysm, occlusion or significant stenosis. IMPRESSION: 1. Aneurysm clip right MCA. No aneurysm visible. No significant vascular stenosis. 2. Unremarkable CT Head. RADIATION DOSE DELIVERED: 1,702.18mGy.cm Total DLP 1,702.18mGy.cm Total DLP DATA REPOSITORY: All CT scans at this facility are submitted to the National Radiology Data Registry (NRDR) Dose Index Registry (DIR) with the [employer] (ACR). RADIATION OPTIMIZATION: All CT scans at this facility use at least one of these dose optimization te chniques: automated exposure control; mA and/or kV adjustment per patient size (includes targeted exa ms where dose is matched to clinical indication); or iterative reconstruction.
[2021-07-25] MEDS: Omnipaque 350 MG/ML 100 ML BTL 85 ML IJ (09:31)
== END 2021-07-25 02:20 ==
PROVIDERS: PCP Family Medicine; Visit Provider Psychiatry & Neurology Neurology
DX: I67.1 Cerebral aneurysm, nonruptured (principal); Z86.79 Personal history of other diseases of the circulatory system; Z98.890 Other specified postprocedural states
CPT/HCPCS: 70496; J3490

== ENCOUNTER → 2021-10-25 01:47 | Outpatient (CLI) | payer MEDICAID, SELFPAY ==
--- NOTE | 2021-10-25 07:00 | DI.CT_ITS ---
Exam(s) CT ABDOMEN PELVIS WO EXAM: CT ABDOMEN PELVIS WO CLINICAL HISTORY: pain below hernia repair,? recurrence, abd pain,r10.9. TECHNIQUE: Imaging Protocol: Axial computed tomography images with coronal and sagittal reformatted images were created and reviewed. COMPARISON: CT CT ABDOMEN PELVIS W from 05/07/[address] BRAIN CTA from 07/25/2021 FINDINGS: ABDOMEN: Lung Bases: Normal where visualized. Liver: There is diffuse fatty infiltration of the liver. The liver measures 19 cm long. The liver h as a nodular contour raising the question of hepatic cirrhosis. No measurable mass. Gallbladder and biliary tract: Status post cholecystectomy. No biliary ductal dilatation. Pancreas: Normal density, no abnormal calcifications or inflammatory process. Spleen: The spleen measures 17 cm long. Kidneys: Normal size, contour and axis.No radiodense stones or obstructive uropathy. No masses seen. Adrenal glands: No mass is seen. Lymph nodes: Within normal limits. Abdominal Aorta: Abdominal portion non-dilated. Atherosclerosis is present. PELVIS: Bladder:The urinary bladder is incompletely distended limiting evaluation. There is thickening of th e wall of the urinary bladder. This may be due to underdistention. Bowel: No obstruction or bowel wall thickening. Appendix is unremarkable. There is a large amount of stool throughout the colon, which may reflect constipation. Peritoneal cavity: No ascites, collection or mesenteric inflammatory response. No free air. Reproductive organs: Status post hysterectomy. There is a stable 2.7 cm left ovarian cyst. Bones: Within normal limits. Soft Tissues: There is a small fat containing left inguinal hernia. No evidence of a right inguinal hernia. There is a small amount of fat seen in the umbilicus. There has been a repair of the previo usly noted supraumbilical hernia. No evidence of a recurrent hernia is seen. There is a stable tiny midline anterior abdominal wall defect (series 3, image 311). This is been stable compared to prior examinations. IMPRESSION: 1. Status post anterior abdominal wall hernia repair. No evidence of a recurrent hernia. No focal f luid collection or infiltration to suggest an inflammatory process or abscess. 2. Hepatosplenomegaly. 3. Mild thickening of the wall of the urinary bladder. This is likely due to underdistention. An in flammatory infectious cystitis cannot be excluded. Please correlate clinically. RADIATION DOSE DELIVERED: 1,159.63mGy.cm Total DLP DATA REPOSITORY: All CT scans at this facility are submitted to the National Radiology Data Registry (NRDR) Dose Index Registry (DIR) with the [employer] (ACR). RADIATION OPTIMIZATION: All CT scans at this facility use at least one of these dose optimization te chniques: automated exposure control; mA and/or kV adjustment per patient size (includes targeted exa ms where dose is matched to clinical indication); or iterative reconstruction.
[2021-10-25] MEDS: Barium Sulfate 2% W/V-Berry Smoothie 450 ML BTL PO ×2 (07:51→07:52)
== END ==
PROVIDERS: PCP Family Medicine; Visit Provider Surgery
DX: R10.84 Generalized abdominal pain (principal); K76.0 Fatty (change of) liver, not elsewhere classified; K76.89 Other specified diseases of liver; Z90.49 Acquired absence of other specified parts of digestive tract; N32.89 Other specified disorders of bladder; R16.2 Hepatomegaly with splenomegaly, not elsewhere classified; Z98.890 Other specified postprocedural states
CPT/HCPCS: 74176

== ENCOUNTER 2021-11-21 18:52 | Outpatient (REF) | payer MEDICAID, SELFPAY ==
[2021-11-21 18:47] LABS: HCT 33.4 % (36.0-46.0); HGB 10.6 g/dL (11.2-15.7); MCH 26.9 pg (27.0-33.0); MCHC 31.7 % (32.0-36.0); MCV 85 fL (80-95); MPV 11.1 fL (8.0-11.0); Platelet Count 110 10^3/uL (130-400); RBC 3.94 10^6/uL (3.93-5.22); RDW 14.6 % (11.7-14.6); RDW-SD 45.1 fL; WBC 4.48 10^3/uL (4.4-10.8)
[2021-11-21 18:59] LABS: Prothrombin Time 10.1 sec (9.3-11.0)
[2021-11-21 19:38] LABS: ALT 25 U/L (14-59); AST 31 U/L (15-37); Albumin 3.7 g/dL (3.4-5.0); Alkaline Phosphatase 127 U/L (46-116); Anion Gap 11.2 mmol/L (3-11); Bilirubin, Total 0.3 mg/dL (0.2-1.0); CO2 25.8 mmol/L (21.0-32.0); CREATININE 0.7 mg/dL (0.55-1.02); Calcium 8.2 mg/dL (8.5-10.1); Chloride 103 mmol/L (98-107); Glucose 166 mg/dL (74-106); NT-proBNP 66 pg/mL (<300); Potassium 3.6 mmol/L (3.5-5.1); Sodium 140 mmol/L (136-145); Total Protein 6.5 g/dL (6.4-8.2)
[2021-11-21 19:43] LABS: BUN 12 mg/dL (7-18)
== END 2021-11-21 18:53 | disposition home or self-care (01) ==
LOC: LBN 18:52
PROVIDERS: PCP Family Medicine; Visit Provider Family Medicine
DX: K70.30 Alcoholic cirrhosis of liver without ascites (principal)
CPT/HCPCS: 80053; 85027; 83880; 85610

== ENCOUNTER 2021-12-06 12:40 | Emergency (ER) | payer MEDICAID, SELFPAY ==
[2021-12-06 12:53] VITALS: BP 115/68; PULSE 77; RESP 16; TEMP 36; O2SAT 94
--- NOTE | 2021-12-06 15:19 | NUR.NOTE ---
1515: pt not in WR when called Nursing Note:
== END 2021-12-06 15:35 ==
LOC: ER 12:46
PROVIDERS: PCP Family Medicine
DX: Z53.21 Procedure and treatment not carried out due to patient leaving prior to being seen by health care provider (principal)

== ENCOUNTER → 2021-12-10 02:37 | Outpatient (CLI) | payer MEDICAID, SELFPAY ==
--- NOTE | 2021-12-10 | DI.RAD_ITS ---
Exam(s) XR CHEST 2V PA LATERAL EXAM: XR CHEST 2V PA LATERAL CLINICAL HISTORY: SHORTNESS OF BREATH, R06.02 TECHNIQUE: 2D digital imaging was performed of the chest. Two images were obtained. PA and lateral views were obtained. COMPARISON: CR XR CHEST 2V PA LATERAL from 02/21/2020 FINDINGS: MEDIASTINUM: Normal. HEART: Normal. PULMONARY VASCULATURE: Normal. LUNGS: Clear. PLEURAL SPACE: No pleural effusion or pneumothorax. BONE:Within normal limits for the patient's age. OTHER FINDINGS:Normal. IMPRESSION: No acute pulmonary findings. DATA REPOSITORY: RADIATION DOSE DELIVERED:
== END ==
PROVIDERS: PCP Family Medicine; Visit Provider Family Medicine
DX: R06.02 Shortness of breath (principal)
CPT/HCPCS: 71046

== ENCOUNTER 2021-12-25 19:12 | Outpatient (REF) | payer MEDICAID, SELFPAY ==
[2021-12-25 19:15] LABS: Abs Immature Grans 0.02 10^3/uL (0.0-0.06); Absolute Basophil Count 0.02 10^3/uL (0.0-0.2); Absolute Eosinophil Count 0.16 10^3/uL (0.0-0.7); Absolute Lymphocyte Count 1.46 10^3/uL (1.2-3.4); Absolute Neutrophil Count 2.48 10^3/uL (1.2-6.7); Basophils % 0.4; Eosinophils % 3.5; HCT 32.8 % (36.0-46.0); HGB 10.5 g/dL (11.2-15.7); Immature Grans % 0.4; Lymphocytes % 32.2; MCV 84 fL (80-95); MPV 11.6 fL (8.0-11.0); Monocytes % 8.8; Neutrophils % 54.7; Platelet Count 116 10^3/uL (130-400); RBC 3.89 10^6/uL (3.93-5.22); RDW 15.5 % (11.7-14.6); RDW-SD 47.4 fL; WBC 4.54 10^3/uL (4.4-10.8)
[2021-12-25 19:53] LABS: ALT 33 U/L (14-59); AST 35 U/L (15-37); Albumin 3.7 g/dL (3.4-5.0); Alkaline Phosphatase 126 U/L (46-116); Anion Gap 9.4 mmol/L (3-11); BUN 11 mg/dL (7-18); Bilirubin, Total 0.3 mg/dL (0.2-1.0); CO2 27.6 mmol/L (21.0-32.0); CREATININE 0.8 mg/dL (0.55-1.02); Calcium 8.8 mg/dL (8.5-10.1); Chloride 103 mmol/L (98-107); Estimated GFR 83.78 (mL/min/1.73m2); Glucose 126 mg/dL (74-106); Potassium 3.9 mmol/L (3.5-5.1); Sodium 140 mmol/L (136-145); Total Protein 6.8 g/dL (6.4-8.2); Vitamin B12 1101 pg/mL (193-986)
[2021-12-25 20:04] LABS: Iron 53 ug/dL (50-170); Total Iron Binding Capacity 346 ug/dL (250-450); Transferrin Sat 15 % (15-50)
== END 2021-12-25 19:13 | disposition home or self-care (01) ==
LOC: NCHCN 19:12
PROVIDERS: PCP Family Medicine; Visit Provider Family Medicine
DX: D64.9 Anemia, unspecified (principal); R10.11 Right upper quadrant pain
CPT/HCPCS: 80053; 82607; 83540; 83550; 85025

== ENCOUNTER → 2022-01-03 03:14 | Outpatient (CLI) | payer MEDICAID, SELFPAY ==
[2022-01-03] MEDS: Barium Sulfate 2% W/V-Berry Smoothie 450 ML BTL PO (13:34)
--- NOTE | 2022-01-03 14:45 | DI.CT_ITS ---
Exam(s) CT ABDOMEN PELVIS W EXAM: CT ABDOMEN PELVIS W CLINICAL HISTORY: RUQ ABD PAIN, R10.11; ALCOHOLIC LIVER CIRRHOSIS, K70.30. TECHNIQUE: Imaging Protocol: Axial computed tomography images with coronal and sagittal reformatted images were created and reviewed CONTRAST MATERIAL: Intravenous: Omnipaque 350 Contrast volume:100 ml Oral: yes / COMPARISON: CT CT ABDOMEN PELVIS W from 01/15/[address] CHEST PE CTA from 01/22/[address] ABDOMEN PELVIS WO from 10/25/2021 FINDINGS: ABDOMEN: Lung Bases: Normal where visualized. A tiny pericardial effusion, unchanged from prior.. Liver: Liver is enlarged with moderate to severe steatosis. 21 cm cephalo caudad the dimension. The re is a nodular liver contour consistent with cirrhosis. There is recanalization of the umbilical ve in. No measurable mass. Gallbladder and biliary tract: Status post cholecystectomy. No radiodense calculus or dilation. Pancreas: Normal density, no abnormal calcifications or inflammatory process. Spleen: Enlarged, 18 cm in length.. Kidneys: Normal size, contour and axis. No radiodense stones or obstructive uropathy. No masses seen. Adrenal glands: No masses seen. Abdominal Aorta: Abdominal portion non-dilated. Moderate atherosclerotic changes. Vasculature: Dilated portal vein and splenic vein. Multiple dilated varices around the pancreas. Soft tissues: Mild scarring at the midline of the abdomen above the umbilicus. No recurrence hernia. PELVIS: Bladder: No gross wall thickening. No calculi.No focal mass. Bowel: Moderate to increased quantity of stool particularly in the rectosigmoid. No obstruction or b owel wall thickening. Appendix normal. Peritoneal cavity: Trace fluid low in the pelvis. No focal collection or mesenteric inflammatory res ponse. Bones: Within normal limits for age. Reproductive organs: Status post hysterectomy. Stable small left ovarian cyst. Right ovary unremark able. Lymph nodes: Unremarkable. Impression: Enlarged liver with cirrhotic appearance. No focal mass. Varices. Splenomegaly. RADIATION DOSE DELIVERED: 1,567.95mGy.cm Total DLP DATA REPOSITORY: All CT scans at this facility are submitted to the National Radiology Data Registry (NRDR) Dose Index Registry (DIR) with the [employer] (ACR). RADIATION OPTIMIZATION: All CT scans at this facility use at least one of these dose optimization te chniques: automated exposure control; mA and/or kV adjustment per patient size (includes targeted exa ms where dose is matched to clinical indication); or iterative reconstruction.
[2022-01-03] MEDS: Omnipaque 350 MG/ML 500 ML BTL-Imaging package 100 ML IJ (15:22)
== END ==
PROVIDERS: PCP Family Medicine; Visit Provider Family Medicine
DX: K74.60 Unspecified cirrhosis of liver (principal)
CPT/HCPCS: 74177

== ENCOUNTER 2022-02-20 14:06 | Emergency (ER) | payer MEDICAID, SELFPAY ==
[2022-02-20 14:11] VITALS: BP 145/82; PULSE 89; RESP 20; TEMP 37; O2SAT 98
--- NOTE | 2022-02-20 17:45 | DI.RAD_ITS ---
Exam(s) XR FOOT LT COMPLETE EXAM: XR FOOT LT COMPLETE CLINICAL HISTORY: pain and swelling left foot. TECHNIQUE: 2D digital imaging was performed of the left foot. Images were obtained. AP, oblique a nd lateral views were obtained. COMPARISON: CR XR FOOT LT COMPLETE from 02/02/2020 FINDINGS: BONES: No acute fracture is present. No bony destructive lesion is seen. There is a small plantar zack caneal spur. There is mild spurring of the anterior tibial talar joint which may reflect impingement . There is mild diffuse osteopenia. JOINTS: No dislocation present. SOFT TISSUE: There is diffuse soft tissue swelling of the foot. IMPRESSION: Mild spurring at the tibial talar joint which may represent ankle impingement. No acute fracture or dislocation. DATA REPOSITORY: RADIATION DOSE DELIVERED:
[2022-02-20] MEDS: oxyCODONE 5 MG TAB PO (18:24)
--- NOTE | 2022-02-20 18:49 | DI.VRAD_ITS ---
PROCEDURE INFORMATION: Exam: XR Left Foot Exam date and time: 02/20/2022 6:30 PM Age: 61 years old Clinical indication: Swelling, leg or foot TECHNIQUE: Imaging protocol: Radiologic exam of the Left foot. Views: 3 or more views. COMPARISON: CR XR FOOT LT COMPLETE 02/02/2020 12:09 PM FINDINGS: Bones/joints: There is mild generalized osteopenia present. Tiny osteophytes present at the superior anterior aspect of the talus not present on the prior study may represent anterior ankle impingement. Bone mineralization is age-appropriate. There is no evidence of fracture. No evidence of dislocation. The joint spaces are adequately preserved; no significant degenerative narrowing and no bony erosion seen. Soft tissues: No radiopaque foreign body present. There is mild diffuse soft tissue swelling. There is a noninflamed plantar enthesophyte. IMPRESSION: Tiny osteophytes present at the superior anterior aspect of the talus not present on the prior study may represent anterior ankle impingement. Dictated and Authenticated by: Matthew Mendoza MD. Ordering:ZACKARY Pitts MD
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
== END 2022-02-20 19:03 | disposition home or self-care (01) ==
PROVIDERS: Emergency Provider Physician Assistant; PCP Family Medicine
DX: S97.82XA Crushing injury of left foot, initial encounter (principal); V03.90XA Pedestrian on foot injured in collision with car, pick-up truck or van, unspecified whether traffic or nontraffic accident, initial encounter
CPT/HCPCS: 29515; 99283; 73630

== ENCOUNTER → 2022-03-26 01:35 | Outpatient (CLI) | payer MEDICAID, SELFPAY ==
--- NOTE | 2022-03-26 15:23 | DI.RAD_ITS ---
Exam(s) XR FOOT LT COMPLETE EXAM: XR FOOT LT COMPLETE CLINICAL HISTORY: LT FOOT PAIN, M79.672. TECHNIQUE: 2D digital imaging was performed of the left foot. Three images were obtained. AP, obli que and lateral views were obtained. COMPARISON: CR,XR XR FOOT LT COMPLETE from 02/20/2022 FINDINGS: BONES: No acute fracture is present. No bony destructive lesion is seen. There is a small plantar spu r. JOINTS: No dislocation present. SOFT TISSUE: Normal. IMPRESSION: No acute abnormality. DATA REPOSITORY: RADIATION DOSE DELIVERED:
--- NOTE | 2022-03-26 15:45 | DI.MAMMO_ITS ---
Exam(s) MAMMO SCREENING EXAM: MAMMO SCREENING CLINICAL HISTORY: SCREENING, Z12.39 TECHNIQUE: Bilateral full field digital CC and MLO mammographic images were obtained with 3D tomosyn thesis and utilizing computer aided detection (CAD). COMPARISON: Available for comparison. FINDINGS: Masses/Architectural Distortion: The nodule in the upper outer quadrant of the right breast appears s table. No suspicious masses or areas of architectural distortion are present. Microcalcifications: No suspicious pleomorphic-type are seen. Skin Thickening/Nipple Retraction: None. IMPRESSION: 1. No significant interval change with no specific features of malignancy noted. 2. Unless there is more urgent need, screening mammography is recommended, as per [employer] guidelines. BI-RADS Category 2 - Benign Findings Breast Density - Category B - Scattered areas of fibroglandular density Breast density category C or D implies that the patient has dense breast tissue. Dense breast tissue is very common and is not abnormal but dense breast tissue can make it harder to find cancer on a ma mmogram. Also, dense breast tissue may increase their breast cancer risk. This information about the result of the mammogram report was provided to the patient to raise their awareness. Use this report when you speak with the patient about their risks for breast cancer, which includes their family hist ory. At that time, you may recommend for more screening tests (Ultrasound or MRI) as they might be us eful based on their risk. A negative radiographic report should not delay biopsy if a dominant or clinically suspicious mass is present. Up to ten percent of cancers are not identified on mammography. A negative report may reinforce clinical impression. Adenosis and dense breasts may obscure an underlying neoplasm. False positive reports average 6 to 10%. Patient will receive a letter notifying them of these results.
== END ==
PROVIDERS: PCP Family Medicine; Visit Provider Family Medicine
DX: Z12.31 Encounter for screening mammogram for malignant neoplasm of breast (principal); M79.672 Pain in left foot
CPT/HCPCS: 77063; 77067; 73630

== ENCOUNTER 2022-06-04 02:16 | Outpatient (CLI) | payer MEDICAID, SELFPAY ==
[2022-06-04] MEDS: Albuterol HFA 18 GM 200 PUFF INH IH (08:48)
[2022-06-04] MEDS: Inhaler, Assist Device 1 EACH MC (08:49)
--- NOTE | 2022-06-04 12:14 | W.PFT ---
Date of service: 06/04/22 Time of Service: 07:58 Pulmonary Function Test Result Requesting Provider Grant Lindsey Indications: Asthma-COPD Interpretation Spirometry: No airflow limitation. No significant bronchodilator response. Lung Volumes: Normal lung volumes Diffusion Capacity: Normal diffusion Airway Pressure: Normal airways resistance Impression Normal pulmonary function testing. Note: When compared to 02/10/19, PFT's are stable, however the DLCO has slightly decreased. Clinical Correlation therefore is recommended.
== END 2022-06-04 02:17 | disposition home or self-care (01) ==
PROVIDERS: PCP Family Medicine; Visit Provider Family Medicine
DX: J44.9 Chronic obstructive pulmonary disease, unspecified (principal)
CPT/HCPCS: 94060; 94726; 94729

== ENCOUNTER 2022-07-09 16:01 | Outpatient (REF) | payer MEDICAID, SELFPAY ==
[2022-07-09 16:25] LABS: Hemoglobin A1C 6.9 % (<5.7)
== END 2022-07-09 16:02 | disposition home or self-care (01) ==
LOC: NCHCN 16:01
PROVIDERS: PCP Family Medicine; Visit Provider Family Medicine
DX: E11.8 Type 2 diabetes mellitus with unspecified complications (principal)
CPT/HCPCS: 83036

== ENCOUNTER 2022-07-15 10:25 | Outpatient (CLI) | payer MEDICAID, SELFPAY ==
--- NOTE | 2022-07-15 09:45 | DI.CT_ITS ---
Exam(s) CT ABDOMEN PELVIS WO EXAM: CT ABDOMEN PELVIS WO CLINICAL HISTORY: possible incarcerated hernia, k43.0; ventral hernia, K43.9. TECHNIQUE: Imaging Protocol: Axial computed tomography images with coronal and sagittal reformatted images were created and reviewed CONTRAST MATERIAL: Intravenous: none Oral: None COMPARISON: CT CT ABDOMEN PELVIS W from 01/03/2022 FINDINGS: VISUALIZED LUNG BASES: No nodules nor pleural effusions evident. Mild benign-appearing increased mar kings in the anterior basal segment left lower lobe. There is a pericardial effusion which has increased in size from previous. Maximum thickness at this time is 1.2 cm. Heart size is normal. ABDOMEN: ANTERIOR ABDOMINAL WALL: Slightly to the right of center and anterior to the left hepatic lobe there is a hernia sac again noted. This does not contain bowel loop but contains mesentery and 6 somewhat dilated vessel. This appears to be part of the recanalized umbilical vein in this patient was varice s.. Hernia sac at this level measures 1.9 cm wide by 1.7 cm AP. There is no ascites. Varices again noted. Also recanalized umbilical vein. LIVER: Liver is enlarged and is again noted be cirrhotic appearing. No obvious discrete focal hepati c lesions identified. GALLBLADDER/BILIARY: Gallbladder is again noted to be surgically absent. CBD is not dilated. PANCREAS: No evidence of pancreatic mass nor dilatation of the pancreatic duct. SPLEEN: Spleen is again noted be enlarged. ADRENALS: There are no significant adrenal masses. KIDNEYS:No cysts evident. No solid renal masses. No calculi nor hydronephrosis. . ABDOMINAL AORTA: Calcified but not enlarged. LYMPH NODES: There is no retroperitoneal nor paraaortic adenopathy. ABDOMINAL WALL: Anterior right abdominal hernias above. There is also again noted a fat only contain ing left inguinal hernia. GI: There is no evidence of bowel obstruction, free air, nor abscess. PELVIS: LYMPH NODES: There is no intrapelvic nor inguinal adenopathy. GI: No evidence of appendicitis.No evidence of sigmoid diverticulitis. URINARY BLADDER: No calculi nor obvious masses evident REPRODUCTIVE: Uterus is surgically absent. There is a E left ovarian cysts which measures 3 by 2.8 c m. This appears unchanged from the prior study. No right adnexal findings. No free fluid in the pe lvis. OSSEOUS: No fractures. No significant osseous lesions. IMPRESSION: 1. Compared to the prior CT scan of 01/03/2022 there is again noted enlarged and cirrhotic appearing liver, splenomegaly, and varices, including a recanalized umbilical vein. There is no ascites. 2. In the anterior abdominal wall slightly right of center there is hernia as described above which d oes not contain a bowel loop but does contain a vascular density which is probably part of the recana lized umbilical vein system. 3. Small fat only containing left inguinal hernia again noted. 4. Unchanged 3 x 2.8 cm left ovarian cyst. RADIATION DOSE DELIVERED: 1,436.1mGy.cm Total DLP DATA REPOSITORY: All CT scans at this facility are submitted to the National Radiology Data Registry (NRDR) Dose Index Registry (DIR) with the [employer] (ACR). RADIATION OPTIMIZATION: All CT scans at this facility use at least one of these dose optimization te chniques: automated exposure control; mA and/or kV adjustment per patient size (includes targeted exa ms where dose is matched to clinical indication); or iterative reconstruction.
== END 2022-07-15 10:45 ==
LOC: DI 10:26
PROVIDERS: PCP Family Medicine; Visit Provider Surgery
DX: K43.9 Ventral hernia without obstruction or gangrene; I31.39 Other pericardial effusion (noninflammatory); K76.89 Other specified diseases of liver; Z90.49 Acquired absence of other specified parts of digestive tract; R16.2 Hepatomegaly with splenomegaly, not elsewhere classified; K40.90 Unilateral inguinal hernia, without obstruction or gangrene, not specified as recurrent; N83.292 Other ovarian cyst, left side
CPT/HCPCS: 74176

== ENCOUNTER 2022-09-25 03:40 | Outpatient (CLI) | payer MEDICAID, SELFPAY ==
[2022-09-27 11:38] LABS: Cotinine 349 ng/mL (<3.0); Nicotine 9.1 ng/mL (<3.0)
== END 2022-09-25 03:41 | disposition home or self-care (01) ==
LOC: LBO 03:40
PROVIDERS: PCP Family Medicine; Visit Provider Surgery
DX: F17.209 Nicotine dependence, unspecified, with unspecified nicotine-induced disorders (principal)
CPT/HCPCS: 36415; 80323

== ENCOUNTER 2022-11-06 18:02 | Outpatient (REF) | payer MEDICAID, SELFPAY ==
[2022-11-06 19:26] LABS: HCT 36.2 % (36.0-46.0); MCH 26.7 pg (27.0-33.0); MCHC 30.4 % (32.0-36.0); MCV 88 fL (80-95); MPV 10.8 fL (8.0-11.0); Platelet Count 102 10^3/uL (130-400); RBC 4.12 10^6/uL (3.93-5.22); RDW 15.3 % (11.7-14.6); RDW-SD 48.8 fL; WBC 4.81 10^3/uL (4.4-10.8)
[2022-11-06 19:39] LABS: Prothrombin Time 10.1 sec (9.3-11.0)
[2022-11-06 19:48] LABS: ALT 29 U/L (14-59); AST 36 U/L (15-37); Albumin 3.9 g/dL (3.4-5.0); Alkaline Phosphatase 164 U/L (46-116); Anion Gap 12.4 mmol/L (3-11); BUN 12 mg/dL (7-18); Bilirubin, Total 0.5 mg/dL (0.2-1.0); CO2 27.6 mmol/L (21.0-32.0); CREATININE 0.9 mg/dL (0.55-1.02); Calcium 9.2 mg/dL (8.5-10.1); Chloride 103 mmol/L (98-107); Estimated GFR 72.28 (mL/min/1.73m2); Glucose 129 mg/dL (74-106); Potassium 3.6 mmol/L (3.5-5.1); Sodium 143 mmol/L (136-145); Total Protein 7.3 g/dL (6.4-8.2)
== END 2022-11-06 18:03 | disposition home or self-care (01) ==
LOC: NCHCN 18:02
PROVIDERS: PCP Family Medicine; Visit Provider Family Medicine
DX: K70.30 Alcoholic cirrhosis of liver without ascites (principal)
CPT/HCPCS: 80053; 85027; 85610

== ENCOUNTER 2022-11-27 02:48 | Outpatient (CLI) | payer MEDICAID, SELFPAY ==
[2022-11-29 12:19] LABS: Cotinine <3.0 ng/mL (<3.0); Nicotine <3.0 ng/mL (<3.0)
== END 2022-11-27 02:49 | disposition home or self-care (01) ==
LOC: LBO 02:48
PROVIDERS: PCP Family Medicine; Visit Provider Surgery
DX: F17.209 Nicotine dependence, unspecified, with unspecified nicotine-induced disorders (principal)
CPT/HCPCS: 36415; 80323

== ENCOUNTER 2023-01-15 03:27 | Outpatient (CLI) | payer MEDICAID, SELFPAY ==
[2023-01-15 13:23] LABS: Abs Immature Grans 0.02 10^3/uL (0.0-0.06); Absolute Basophil Count 0.02 10^3/uL (0.0-0.2); Absolute Eosinophil Count 0.08 10^3/uL (0.0-0.7); Absolute Lymphocyte Count 1.13 10^3/uL (1.2-3.4); Absolute Monocyte Count 0.29 10^3/uL (0.1-0.8); Absolute Neutrophil Count 2.61 10^3/uL (1.2-6.7); Basophils % 0.5; Eosinophils % 1.9; HCT 33.8 % (36.0-46.0); HGB 10.5 g/dL (11.2-15.7); Immature Grans % 0.5; Lymphocytes % 27.2; MCH 26.6 pg (27.0-33.0); MCHC 31.1 % (32.0-36.0); MCV 86 fL (80-95); MPV 10.1 fL (8.0-11.0); Neutrophils % 62.9; Platelet Count 100 10^3/uL (130-400); RBC 3.94 10^6/uL (3.93-5.22); RDW 15.9 % (11.7-14.6); RDW-SD 49.2 fL; WBC 4.15 10^3/uL (4.4-10.8)
[2023-01-15 13:32] LABS: INR 1.1 (0.9-1.1)
[2023-01-15 13:48] LABS: ALT 31 U/L (14-59); AST 64 U/L (15-37); Albumin 3.8 g/dL (3.4-5.0); Alkaline Phosphatase 182 U/L (46-116); Anion Gap 11.7 mmol/L (3-11); BUN 10 mg/dL (7-18); Bilirubin, Total 0.5 mg/dL (0.2-1.0); CO2 24.3 mmol/L (21.0-32.0); CREATININE 0.9 mg/dL (0.55-1.02); Calcium 9.3 mg/dL (8.5-10.1); Chloride 101 mmol/L (98-107); Estimated GFR 72.28 (mL/min/1.73m2); Glucose 170 mg/dL (74-106); Potassium 3.7 mmol/L (3.5-5.1); Sodium 137 mmol/L (136-145); Total Protein 7.5 g/dL (6.4-8.2)
== END 2023-01-15 03:28 | disposition home or self-care (01) ==
LOC: LBO 03:27
PROVIDERS: Nurse Practitioner; PCP Family Medicine
DX: K74.60 Unspecified cirrhosis of liver (principal)
CPT/HCPCS: 36415; 80053; 85025; 85610

== ENCOUNTER → 2023-06-03 04:07 | Outpatient (CLI) | payer MEDICAID, SELFPAY ==
--- NOTE | 2023-06-03 | DI.MAMMO_ITS ---
Exam(s) MAMMO SCREENING EXAM: MAMMO SCREENING CLINICAL HISTORY: SCREENING, Z12.39. TECHNIQUE: Bilateral full field digital CC and MLO mammographic images were obtained with 3D tomosyn thesis and utilizing computer aided detection (CAD). COMPARISON: Prior mammograms were reviewed. FINDINGS: There has been no significant change in the appearance and distribution of the fibroglandular tissue. Asymmetric nodular density in the right breast is unchanged from prior mammograms. There are no new spiculated masses nor malignant appearing microcalcification groups. There is no significant architectural distortion nor skin thickening-retraction. IMPRESSION: No radiographic evidence of malignancy. BI-RADS Category 2 - Benign Findings Breast Density - Category B - Scattered areas of fibroglandular density Breast density Category C or D implies that the patient has dense breast tissue. Dense breast tissue can make it harder to find cancer on a mammogram. Dense breast tissue is also associated with an incr eased risk of breast cancer. This information about the result of the mammogram report was provided to the patient to raise their awareness. Use this report when you speak with the patient about their risks for breast cancer, which includes their family history. At that time, you may recommend additional screening tests (Ultrasoun d or MRI) as these tests may add significant information. A negative radiographic report should not delay biopsy if a dominant or clinically suspicious mass is present. Up to ten percent of cancers are not identified on mammography. A negative report may reinforce clinical impression. Adenosis and dense breasts may obscure an underlying neoplasm. False positive reports average 6 to 10%. Patient will receive a letter notifying them of these results.
[2023-06-03 10:54] LABS: CREATININE 0.9 mg/dL (0.55-1.02); Estimated GFR 72.28 (mL/min/1.73m2)
== END ==
PROVIDERS: Psychiatry & Neurology Neurology; PCP Family Medicine; Visit Provider Family Medicine
DX: I67.1 Cerebral aneurysm, nonruptured (principal); Z12.31 Encounter for screening mammogram for malignant neoplasm of breast
CPT/HCPCS: 77063; 77067; 82565

== ENCOUNTER → 2023-06-03 04:08 | Outpatient (CLI) | payer MEDICAID, SELFPAY ==
[2023-06-03] MEDS: Normal Saline - Diluent 50 ML VIAL IJ (11:03)
[2023-06-03] MEDS: Omnipaque 350 MG/ML 100 ML BTL 85 ML IJ (11:04)
--- NOTE | 2023-06-03 11:20 | DI.CT_ITS ---
Exam(s) CT BRAIN CTA EXAM: CT BRAIN CTA CLINICAL HISTORY: monitor for new aneurysm,s/p aneurysm repair,I67.1,Z98.890. TECHNIQUE: Imaging Protocol: Both noninfused and contrast infused CT scans of the brain were perform ed. IV Contrast Dose =75 cc Axial computed tomography images with coronal and sagittal reformatted images were created and review ed COMPARISON: CT CT BRAIN CTA from 07/25/[address] ABDOMEN PELVIS WO from 07/15/2022 FINDINGS: Right temporal craniotomy again noted. ANTERIOR CIRCULATION: Both internal carotid arteries are patent in the skull base-carotid canals as well as within the cave rnous sinuses. Supraclinoid aspects are patent and nonaneurysmal. Both A1 segments are patent as ar e the anterior cerebral arteries. There is no aneurysm at the level the anterior communicating arter y. Position of the aneurysm clip in the right middle cranial fossa is unchanged and there is no aneurysm evident at this level which is middle cerebral artery territory. Also no aneurysms evident within t he distal branches of the right MCA at this open fissure level. Left middle cerebral artery appears unremarkable. No stenosis. No aneurysms. POSTERIOR CIRCULATION: The basilar artery is formed at the skull base by both vertebral arteries. Basilar artery ascends wi th normal luminal diameter. Distally terminates as posterior cerebral arteries. There is no aneurys m at the tip of the basilar artery. BRAIN: No evidence of intracranial hemorrhage, mass effect, or shift of midline structures. No extra-axial fluid collections. Ventricles are not enlarged or shifted and there is no blood within the ventricul ar system nor within the basal cisterns. There are no ring enhancing lesions in the brain and no abn ormal meningeal enhancement. No obvious vascular malformation evident. IMPRESSION: Stable appearance of the brain and right middle cranial fossa aneurysm clip. No acute intracranial f indings. No evidence of recurrent nor new aneurysm. No significant enhancing intracranial findings. RADIATION DOSE DELIVERED: 1,541.36mGy.cm Total DLP DATA REPOSITORY: All CT scans at this facility are submitted to the National Radiology Data Registry (NRDR) Dose Index Registry (DIR) with the [employer] ([employer]). RADIATION OPTIMIZATION: All CT scans at this facility use at least one of these dose optimization te chniques: automated exposure control; mA and/or kV adjustment per patient size (includes targeted exa ms where dose is matched to clinical indication); or iterative reconstruction.
== END ==
PROVIDERS: PCP Family Medicine; Visit Provider Psychiatry & Neurology Neurology
DX: Z98.890 Other specified postprocedural states (principal); Z86.79 Personal history of other diseases of the circulatory system; I67.1 Cerebral aneurysm, nonruptured
CPT/HCPCS: 70496; J3490

== ENCOUNTER 2023-06-18 14:20 | Outpatient (REF) | payer MEDICAID, SELFPAY ==
[2023-06-18 15:21] LABS: Abs Immature Grans 0.02 10^3/uL (0.0-0.06); Absolute Basophil Count 0.01 10^3/uL (0.0-0.2); Absolute Eosinophil Count 0.13 10^3/uL (0.0-0.7); Absolute Monocyte Count 0.21 10^3/uL (0.1-0.8); Basophils % 0.3; Eosinophils % 3.4; HCT 35.7 % (36.0-46.0); HGB 10.9 g/dL (11.2-15.7); Immature Grans % 0.5; Lymphocytes % 31.8; MCH 25.9 pg (27.0-33.0); MCHC 30.5 % (32.0-36.0); MCV 85 fL (80-95); MPV 10.5 fL (8.0-11.0); Monocytes % 5.6; Neutrophils % 58.4; Platelet Count 103 10^3/uL (130-400); RBC 4.21 10^6/uL (3.93-5.22); RDW 15.9 % (11.7-14.6); RDW-SD 48.8 fL; WBC 3.77 10^3/uL (4.4-10.8)
[2023-06-18 16:37] LABS: Folate 19.7 ng/mL (8.6-20.0); TSH (W/Ref FT4) 1.24 uIU/mL (0.36-3.74); Vitamin B12 484 pg/mL (193-986)
== END 2023-06-18 14:21 | disposition home or self-care (01) ==
LOC: NCHCN 14:20
PROVIDERS: PCP Family Medicine; Visit Provider Student in an Organized Health Care Education/Training Program
DX: E11.40 Type 2 diabetes mellitus with diabetic neuropathy, unspecified (principal); R41.9 Unspecified symptoms and signs involving cognitive functions and awareness
CPT/HCPCS: 82607; 82746; 84443; 85025

== ENCOUNTER 2023-06-26 14:57 | Outpatient (REF) | payer MEDICAID, SELFPAY ==
[2023-06-26 16:24] LABS: ALT 25 U/L (14-59); AST 38 U/L (15-37); Alkaline Phosphatase 192 U/L (46-116); Anion Gap 13.8 mmol/L (3-11); BUN 8 mg/dL (7-18); Bilirubin, Total 0.6 mg/dL (0.2-1.0); CO2 23.2 mmol/L (21.0-32.0); CREATININE 0.9 mg/dL (0.55-1.02); Calcium 8.6 mg/dL (8.5-10.1); Chloride 104 mmol/L (98-107); Estimated GFR 72.28 (mL/min/1.73m2); Ferritin 27 ng/mL (8-252); Glucose 148 mg/dL (74-106); Potassium 3.5 mmol/L (3.5-5.1); Sodium 141 mmol/L (136-145)
[2023-06-26 16:58] LABS: Abs Immature Grans 0.02 10^3/uL (0.0-0.06); Absolute Basophil Count 0.02 10^3/uL (0.0-0.2); Absolute Eosinophil Count 0.13 10^3/uL (0.0-0.7); Absolute Lymphocyte Count 1.07 10^3/uL (1.2-3.4); Absolute Monocyte Count 0.31 10^3/uL (0.1-0.8); Absolute Neutrophil Count 2.34 10^3/uL (1.2-6.7); Basophils % 0.5; Eosinophils % 3.3; HCT 36.1 % (36.0-46.0); HGB 11.2 g/dL (11.2-15.7); Immature Grans % 0.5; Lymphocytes % 27.5; MCV 84 fL (80-95); MPV 10.6 fL (8.0-11.0); Neutrophils % 60.2; Platelet Count 108 10^3/uL (130-400); RDW 15.6 % (11.7-14.6); RDW-SD 47.2 fL; WBC 3.89 10^3/uL (4.4-10.8)
[2023-06-26 16:59] LABS: Iron 49 ug/dL (50-170); Total Iron Binding Capacity 390 ug/dL (250-450); Transferrin Sat 13 % (15-50)
[2023-06-26 17:35] LABS: Hemoglobin A1C 6.7 % (<5.7)
== END 2023-06-26 14:58 | disposition home or self-care (01) ==
LOC: NCHCN 14:57
PROVIDERS: PCP Family Medicine; Visit Provider Family Medicine
DX: K70.30 Alcoholic cirrhosis of liver without ascites (principal); E11.8 Type 2 diabetes mellitus with unspecified complications; D64.9 Anemia, unspecified
CPT/HCPCS: 80053; 82728; 83036; 83540; 83550; 85025

== ENCOUNTER 2023-07-08 20:50 | Outpatient (REF) | payer MEDICAID, SELFPAY ==
[2023-07-08 19:09] LABS: Uric Acid 6.9 mg/dL (2.6-6.0)
[2023-07-10 09:49] LABS: Lyme Ab w Rflx to Lyme Confirm Negative (Negative)
[2023-07-12 14:27] LABS: Anaplasma phagocytophilum Negative (Negative); B. miyamotoi PCR Negative (Negative); Babesia divergens/MO-1 Negative (Negative); Babesia duncani Negative (Negative); Babesia microti Negative (Negative); Ehrlichia chaffeensis Negative (Negative); Ehrlichia ewingii/canis Negative (Negative); Ehrlichia muris eauclairensis Negative (Negative)
== END 2023-07-08 20:51 | disposition home or self-care (01) ==
LOC: NCHCN 20:50
PROVIDERS: PCP Family Medicine; Referring Provider Student in an Organized Health Care Education/Training Program; Visit Provider Student in an Organized Health Care Education/Training Program
DX: M79.671 Pain in right foot (principal)
CPT/HCPCS: 87798; 84550; 86618

== ENCOUNTER → 2023-07-11 01:03 | Outpatient (CLI) | payer MEDICAID, SELFPAY ==
--- NOTE | 2023-07-11 | DI.RAD_ITS ---
Exam(s) XR FOOT RT COMPLETE EXAM: XR FOOT RT COMPLETE CLINICAL HISTORY: RT FOOT PAIN,M79.671,NONTRAUMATIC TENDERNESS MTP,MILD SWELLING,? ARTHRITIS,. TECHNIQUE: 2D digital imaging was performed of the right foot. Three images were obtained. AP, obl ique and lateral views were obtained. COMPARISON: CR XR foot RT complete from 10/04/2018 FINDINGS: BONES: No acute fracture is present. No bony destructive lesion is seen. There is again seen an amput ation of the 3rd toe at the level of the PIP joint. There is a small plantar calcaneal spur. JOINTS: No dislocation present. There are mild degenerative changes seen at the tarsometatarsal joint s. SOFT TISSUE: Normal. IMPRESSION: 1. Mild degenerative changes seen at the tarsometatarsal joints. 2. No acute fracture or dislocation. DATA REPOSITORY: RADIATION DOSE DELIVERED:
== END ==
PROVIDERS: PCP Family Medicine; Visit Provider Student in an Organized Health Care Education/Training Program
DX: M79.671 Pain in right foot (principal); M77.31 Calcaneal spur, right foot; M19.071 Primary osteoarthritis, right ankle and foot
CPT/HCPCS: 73630

== ENCOUNTER 2023-08-28 14:34 | Outpatient (REF) | payer MEDICAID, SELFPAY ==
[2023-08-28 16:06] LABS: Abs Immature Grans 0.01 10^3/uL (0.0-0.06); Absolute Basophil Count 0.02 10^3/uL (0.0-0.2); Absolute Eosinophil Count 0.09 10^3/uL (0.0-0.7); Absolute Lymphocyte Count 1.12 10^3/uL (1.2-3.4); Absolute Monocyte Count 0.28 10^3/uL (0.1-0.8); Absolute Neutrophil Count 2.25 10^3/uL (1.2-6.7); Basophils % 0.5 %; Eosinophils % 2.4 %; HCT 34.5 % (36.0-46.0); HGB 10.3 g/dL (11.2-15.7); Immature Grans % 0.3 %; Lymphocytes % 29.7 %; MCH 25.8 pg (27.0-33.0); MCHC 29.9 % (32.0-36.0); MCV 87 fL (80-95); MPV 10.7 fL (8.0-11.0); Monocytes % 7.4 %; Neutrophils % 59.7 %; Platelet Count 79 10^3/uL (130-400); RBC 3.99 10^6/uL (3.93-5.22); RDW 16.4 % (11.7-14.6); RDW-SD 50.9 fL; WBC 3.77 10^3/uL (4.4-10.8)
[2023-08-28 16:09] LABS: ESR 26 mm/hr (0-30)
[2023-08-28 16:24] LABS: ALT 32 U/L (14-59); AST 45 U/L (15-37); Albumin 3.9 g/dL (3.4-5.0); Alkaline Phosphatase 230 U/L (46-116); Anion Gap 12.9 mmol/L (3-11); BUN 9 mg/dL (7-18); Bilirubin, Total 0.5 mg/dL (0.2-1.0); C-Reactive Protein 1.13 mg/dL (<or=0.5); CO2 23.1 mmol/L (21.0-32.0); CREATININE 0.7 mg/dL (0.55-1.02); Calcium 8.6 mg/dL (8.5-10.1); Chloride 108 mmol/L (98-107); Estimated GFR 97.12 (mL/min/1.73m2); Glucose 80 mg/dL (74-106); Potassium 3.9 mmol/L (3.5-5.1); Sodium 144 mmol/L (136-145); Total Protein 6.9 g/dL (6.4-8.2); Uric Acid 6.5 mg/dL (2.6-6.0)
== END 2023-08-28 14:35 | disposition home or self-care (01) ==
LOC: NCHCN 14:34
PROVIDERS: PCP Family Medicine; Visit Provider Student in an Organized Health Care Education/Training Program
DX: M79.671 Pain in right foot (principal)
CPT/HCPCS: 80053; 85652; 84550; 85025; 86140

== ENCOUNTER 2023-09-05 13:48 | Outpatient (REF) | payer MEDICAID, SELFPAY ==
[2023-09-05 16:18] LABS: Iron 44 ug/dL (50-170); Total Iron Binding Capacity 397 ug/dL (250-450); Transferrin Sat 11 % (15-50)
[2023-09-05 16:39] LABS: ALT 24 U/L (14-59); AST 40 U/L (15-37); Albumin 4.1 g/dL (3.4-5.0); Alkaline Phosphatase 208 U/L (46-116); Anion Gap 12.3 mmol/L (3-11); BUN 9 mg/dL (7-18); Bilirubin, Total 0.7 mg/dL (0.2-1.0); CO2 24.7 mmol/L (21.0-32.0); CREATININE 0.7 mg/dL (0.55-1.02); Calcium 8.6 mg/dL (8.5-10.1); Chloride 105 mmol/L (98-107); Estimated GFR 97.12 (mL/min/1.73m2); Ferritin 27 ng/mL (8-252); Folate 11.6 ng/mL (8.6-20.0); Glucose 100 mg/dL (74-106); Potassium 3.8 mmol/L (3.5-5.1); Sodium 142 mmol/L (136-145); Vitamin B12 431 pg/mL (193-986)
[2023-09-05 16:46] LABS: Bilirubin Negative (Negative); Blood Negative (Negative); Clarity Clear (Clear); Glucose Negative (Negative); Ketones Negative (Negative); Leukocyte Esterase Negative (Negative); Nitrite Negative (Negative); Urobilinogen 0.2 mg/dL (Up to 0.2)
[2023-09-05 16:57] LABS: Uric Acid 6.6 mg/dL (2.6-6.0)
== END 2023-09-05 13:49 | disposition home or self-care (01) ==
LOC: NCHCN 13:48
PROVIDERS: PCP Family Medicine; Visit Provider Student in an Organized Health Care Education/Training Program
DX: R31.9 Hematuria, unspecified (principal); R10.11 Right upper quadrant pain; D64.9 Anemia, unspecified; M10.9 Gout, unspecified
CPT/HCPCS: 80053; 81003; 82607; 82728; 82746; 83540; 83550; 84550

== ENCOUNTER → 2023-09-10 13:52 | Outpatient (CLI) | payer MEDICAID, SELFPAY ==
--- NOTE | 2023-09-10 11:53 | DI.RAD_ITS ---
Exam(s) XR FOOT RT COMPLETE EXAM: XR FOOT RT COMPLETE CLINICAL HISTORY: pain in right foot, M79.671; contusion of rt foot, S90.31XA. TECHNIQUE: 2D digital imaging was performed. Three views. COMPARISON: CR XR FOOT RT COMPLETE from 07/11/2023 FINDINGS: BONES: No acute fracture is present. No bony destructive lesion is seen. Amputation of the middle an d distal phalanges of the 3rd toe again noted. Small heel spurs. JOINTS: No dislocation present. SOFT TISSUE: Normal. IMPRESSION: No acute abnormality. DATA REPOSITORY: RADIATION DOSE DELIVERED:
== END ==
PROVIDERS: PCP Family Medicine; Visit Provider Podiatrist
DX: M79.671 Pain in right foot (principal); S90.31XA Contusion of right foot, initial encounter; X58.XXXA Exposure to other specified factors, initial encounter
CPT/HCPCS: 73630

== ENCOUNTER 2023-09-11 04:20 | Outpatient (CLI) | payer MEDICAID, SELFPAY ==
[2023-09-11 16:06] LABS: Uric Acid 5.8 mg/dL (2.6-6.0)
== END 2023-09-11 04:21 | disposition home or self-care (01) ==
LOC: LBO 04:20
PROVIDERS: PCP Family Medicine; Visit Provider Podiatrist
DX: E79.0 Hyperuricemia without signs of inflammatory arthritis and tophaceous disease (principal)
CPT/HCPCS: 36415; 84550

== ENCOUNTER → 2023-09-16 03:31 | Outpatient (CLI) | payer MEDICAID, SELFPAY ==
--- NOTE | 2023-09-16 | DI.US_ITS ---
Exam(s) US ABDOMEN LIMITED EXAM: US ABDOMEN LIMITED CLINICAL HISTORY: RUQ PAIN, R10.11, KNOWN ALCOHOLIC CIRRHOSIS TECHNIQUE: Ultrasound abdomen performed using standard protocol. COMPARISON: CT CT ABDOMEN PELVIS WO from 07/15/2022 FINDINGS: There is no ascites evident. Varices collateral vessels are noted in the epigastric region consisten t with portal venous hypertension. Portal vein exhibits continues flow and is dilated to 16 mm. LIVER: Liver is cirrhotic in appearance, as evident on prior CT scan. No discrete focal hepatic mass evident. GALLBLADDER/BILIARY: Gallbladder surgically absent. The common hepatic duct isnot dilated, measuring 6-7mm at the level of brandie hepatis. PANCREAS: Only partially visualized. Due to bowel gas. RIGHT KIDNEY:No evidence of solid mass, calculus, nor hydronephrosis. IMPRESSION: 1. Findings consistent with portal venous hypertension, as evident on the prior CT scan the seen abo ve. 2. Hepatic cirrhosis. Collateral vessels identified, as evident on prior CT scan. 3. Obvious ascites. DATA REPOSITORY:
== END ==
PROVIDERS: PCP Family Medicine; Visit Provider Student in an Organized Health Care Education/Training Program
DX: R10.11 Right upper quadrant pain (principal); K70.30 Alcoholic cirrhosis of liver without ascites; K76.6 Portal hypertension
CPT/HCPCS: 76705

== ENCOUNTER 2023-09-29 13:23 | Outpatient (REF) | payer MEDICAID, SELFPAY ==
[2023-09-29 15:26] LABS: Abs Immature Grans 0.02 10^3/uL (0.0-0.06); Absolute Basophil Count 0.01 10^3/uL (0.0-0.2); Absolute Eosinophil Count 0.07 10^3/uL (0.0-0.7); Absolute Lymphocyte Count 0.92 10^3/uL (1.2-3.4); Absolute Monocyte Count 0.21 10^3/uL (0.1-0.8); Absolute Neutrophil Count 2.55 10^3/uL (1.2-6.7); Basophils % 0.3 %; Eosinophils % 1.9 %; HGB 10.6 g/dL (11.2-15.7); Immature Grans % 0.5 %; Lymphocytes % 24.3 %; MCH 25.8 pg (27.0-33.0); MCHC 30.3 % (32.0-36.0); MCV 85 fL (80-95); Monocytes % 5.6 %; Neutrophils % 67.4 %; Platelet Count 77 10^3/uL (130-400); RBC 4.11 10^6/uL (3.93-5.22); RDW 16.3 % (11.7-14.6); RDW-SD 50.5 fL; WBC 3.78 10^3/uL (4.4-10.8)
[2023-09-29 16:45] LABS: ALT 36 U/L (14-59); AST 34 U/L (15-37); Alkaline Phosphatase 210 U/L (46-116); Anion Gap 11.2 mmol/L (3-11); BUN 11 mg/dL (7-18); Bilirubin, Total 0.6 mg/dL (0.2-1.0); CO2 25.8 mmol/L (21.0-32.0); CREATININE 0.7 mg/dL (0.55-1.02); Calcium 8.6 mg/dL (8.5-10.1); Chloride 105 mmol/L (98-107); Estimated GFR 97.12 (mL/min/1.73m2); Glucose 160 mg/dL (74-106); Magnesium 1.8 mg/dL (1.8-2.4); Potassium 3.6 mmol/L (3.5-5.1); Sodium 142 mmol/L (136-145); Total Protein 6.9 g/dL (6.4-8.2); Vitamin B12 380 pg/mL (193-986)
== END 2023-09-29 13:24 | disposition home or self-care (01) ==
LOC: NCHCN 13:23
PROVIDERS: PCP Family Medicine; Visit Provider Student in an Organized Health Care Education/Training Program
DX: R10.9 Unspecified abdominal pain (principal); K21.9 Gastro-esophageal reflux disease without esophagitis; R68.89 Other general symptoms and signs
CPT/HCPCS: 80053; 82607; 83735; 85025

== ENCOUNTER 2023-10-14 03:15 | Outpatient (CLI) | payer MEDICAID, SELFPAY ==
[2023-10-14 11:45] LABS: Abs Immature Grans 0.01 10^3/uL (0.0-0.06); Absolute Basophil Count 0.01 10^3/uL (0.0-0.2); Absolute Eosinophil Count 0.06 10^3/uL (0.0-0.7); Absolute Lymphocyte Count 1.08 10^3/uL (1.2-3.4); Absolute Neutrophil Count 1.47 10^3/uL (1.2-6.7); Basophils % 0.4 %; Eosinophils % 2.1 %; HCT 34.8 % (36.0-46.0); HGB 10.9 g/dL (11.2-15.7); Immature Grans % 0.4 %; Lymphocytes % 38.2 %; MCH 26.3 pg (27.0-33.0); MCHC 31.3 % (32.0-36.0); MCV 84 fL (80-95); Monocytes % 7.1 %; Neutrophils % 51.8 %; RBC 4.14 10^6/uL (3.93-5.22); RDW 16.3 % (11.7-14.6); RDW-SD 49.9 fL; WBC 2.83 10^3/uL (4.4-10.8)
[2023-10-14 12:05] LABS: ALT 21 U/L (14-59); AST 24 U/L (15-37); Alkaline Phosphatase 167 U/L (46-116); Anion Gap 10.8 mmol/L (3-11); BUN 10 mg/dL (7-18); Bilirubin, Total 0.74 mg/dL (0.2-1.0); CO2 25.2 mmol/L (21.0-32.0); CREATININE 0.8 mg/dL (0.55-1.02); Calcium 9.1 mg/dL (8.5-10.1); Chloride 105 mmol/L (98-107); Estimated GFR 82.74 (mL/min/1.73m2); GGT 230 U/L (5-55); Glucose 91 mg/dL (74-106); Potassium 3.7 mmol/L (3.5-5.1); Sodium 141 mmol/L (136-145); Total Protein 7.1 g/dL (6.4-8.2)
[2023-10-14 12:07] LABS: Diff Comment Diff Reviewed; Platelet Count 86 10^3/uL (130-400); RBC Morphology Normal
== END 2023-10-14 03:16 | disposition home or self-care (01) ==
LOC: LBO 03:15
PROVIDERS: PCP Family Medicine; Visit Provider Student in an Organized Health Care Education/Training Program
DX: R74.8 Abnormal levels of other serum enzymes (principal); R10.11 Right upper quadrant pain
CPT/HCPCS: 36415; 80053; 82977; 85025

== ENCOUNTER 2024-01-23 00:30 | Outpatient (CLI) | payer MEDICAID, SELFPAY ==
--- NOTE | 2024-01-23 | DI.MAMMO_ITS ---
Exam(s) MAMMO DIAGNOSTIC UNI US BREAST RT COMPLETE EXAM: MAMMO DIAGNOSTIC UNI-RIGHT AND COMPLETE RIGHT BREAST ULTRASOUND CLINICAL HISTORY: MASTODYNIA N64.4 RIGHT SIDE. TECHNIQUE: Unilateral RIGHT BREAST CC AND MLO mammographic images were obtained with 3D tomosynthesi s technique and utilizing computer aided detection (CAD). Also performed a spot compression CC view lateral aspect of the right breast. RIGHT RIGHT BREAST ULTRASOUND performed including all 4 quadrants as well as the retroareolar region. COMPARISON: Prior mammograms were reviewed, the most recent being 06/03/2023. Patient claims to feel a lump at approximately 12 o'clock position of the right breast. She cannot e xplain to me how large the lump is. FINDINGS: -RIGHT BREAST MAMMOGRAM: There is a lobulated nodule laterally which has slightly increased in size from previous. This is sh own to be a cyst on ultrasound today. See below. No other mammographic findings right breast. Appe aring microcalcification groups nor masses nor architectural distortion. COMPLETE RIGHT BREAST ULTRASOUND: There are no significant focal findings at the 12 o'clock position which is for region of clinical in [facility]. At the 8 o'clock position there is a benign partially septated cyst which measures approximately 1.4 x 0.6 cm and corresponds to the finding on the mammogram. No other focal ultrasound findings in all 4 quadrants. Scanning of the right axilla is negative for adenopathy. IMPRESSION: There is a benign cyst at the 8 o'clock position measuring 14 x 6 mm which corresponds to the solitar y nodule on the mammogram but does not correspond to her area of clinical concern which is apparently at 12 o'clock position. There are no mammographic nor ultrasound findings at 12 o'clock position. Ultrasound reveals the 14 x 6 mm benign cyst at the 8 o'clock position without other significant find ings. Appropriate follow-up is repeat right breast imaging in 3 months if symptoms persist. The patient was informed of the findings and follow-up recommendations prior to leaving the [facility] today. BI-RADS Category 3 - 3 month - Probably Benign Finding: Recommend follow-up mammography in 3 months Breast Density - Category B - Scattered areas of fibroglandular density Breast density Category C or D implies that the patient has dense breast tissue. Dense breast tissue can make it harder to find cancer on a mammogram. Dense breast tissue is also associated with an incr eased risk of breast cancer. This information about the result of the mammogram report was provided to the patient to raise their awareness. Use this report when you speak with the patient about their risks for breast cancer, which includes their family history. At that time, you may recommend additional screening tests (Ultrasoun d or MRI) as these tests may add significant information. A negative radiographic report should not delay biopsy if a dominant or clinically suspicious mass is present. Up to ten percent of cancers are not identified on mammography. A negative report may reinforce clinical impression. Adenosis and dense breasts may obscure an underlying neoplasm. False positive reports average 6 to 10%. Patient will receive a letter notifying them of these results.
--- OUTSIDE RECORDS SUMMARY | 2024-01-23 00:32 | XMS_ITS | Encounter Summary ---
[place] [address] Care Team Providers Care Natural Sciences Professor Name Role Phone Grant Lindsey MD Primary Care Provider Encounter Details Date Type Department Care Team (Late st Contact Info) Description 09/18/2022 Orders [place] [address] Lashae Lorenzo MD [facility] [place] [address] Nicotine dependence with nicotine-induced disorder, unspecified nicotine product type Social History Tobacco Use Types Packs/Day Years Used Date Smoking Tobacco: Every Day Cigarettes 0.3 30 Smokeless Tobacco: Never Alcohol Use Standard Drinks/Week Comments No 0 (1 standard drink = 0.6 oz pure alcohol) No ETOH x 3 months; Hx of 1-2 beers/day during week and 6-8 beers on weekend Sex and Gender Information Value Date Recorded Sex Assigned at Not on file Gender Identity Not on file Sexual Orientation Not on file documented as of this encounter Progress Notes * Lashae Lorenzo MD - 09/18/2022 9:01 AM EDT I spoke with Ms. Darling today to follow up after the GI and Liver [facility] this morning. Overall her imaging is suspicious that there could be a branch of her recanalized umbilical vein within her hernia but the CT was done without contrast and the US didn't clearly rule it out. There is a larger pocketof fluid which it unlikely to be a varix. Another thing brought up was could she have had a thrombophlebitis. Ultimately it was recommended that further imaging to consider could be a CT with IV contrast. I relayed the results to Ms. Darling. She did say that her current pain is different from previous RUQ pain and that she just can't live with it. She said it bothers her when she bends over and it keeps her up at night. I explained that the consideration of surgery needs to be taken very seriously. I said that in fixing this, there is a very high likelihood that we would get into bleeding and thatI could potentially have to ligate her recanalized umbilical vein. I explained that this could put her into liver failure and she could from the operation. I also explained she is high risk givenher underlying COPD and smoking which could also put her at risk of pulmonary complications and ulti mately . She says she doesn't deal with pain well and that it irritates her. I brought up perhaps a referralto our Pain clinic for consideration of other forms of pain management and things like meditation or mindfulness to help her pain not be so irritating. She seemed open to considering this. She says she has quit smoking but that it is hard. I asked her to think about our conversation and in the meantime, I would like to get nicotine testing done to ensure she is nicotine free. I will touch base with her in the next two weeks over telephone once we have these results and once she has time to think about what she'd like to do. Lashae Lorenzo MD documented in this encounter Plan of Treatment Upcoming Encounters Date Type Department Care Team (Late st Contact Info) Description 02/27/2024 2:45 PM EST TH Visit (TeleHealth) [place] [address] Lashae Lorenzo MD [facility] [place] [address] documented as of this encounter Visit Diagnoses Diagnosis Nicotine dependence with nicotine-induced disorder, unspecified nicotine product type documented in this encounter Care Teams Natural Sciences Professor Relationship Specialty Start Date End Date Grant Lindsey MD PCP - General Family Medicine 02/25/19 documented as of this encounter
--- OUTSIDE RECORDS SUMMARY | 2024-01-23 00:32 | XMS_ITS | Encounter Summary ---
[place] [address] Care Team Providers Care Od Grinder Operator Name Role Phone Grant Lindsey MD Primary Care Provider [phone] Reason for Visit * Auth/Cert (Routine) Specialty Diagnoses / Procedures Referred By Nicol sparks Referred To Contact Diagnoses Ventral hernia Ventral hernia Procedures PRO REPAIR AA HERNIA INITIAL < 3 CM INCARCERATED/STRANGULATED LAPAROSCOPIC REPAIR ANT. ABDOMINAL HERNIA(S) (IE, EPIGASTRIC, INCISIONAL, VENTRAL, UMBILICAL, SPIGELIAN), INITIAL, W-WO MESH; LESS THAN 3 CM, INCARCERATED OR STRANGULATED (WRVU 8.46) MODIFIER MESH,BARD BRANDIIGHT Lashae Carpio MD [facility] [place] [address] [facility] Referral ID Status Reason Start Date Expiration Date Visits Re quested Visits Authorized [id number] 1 1 Encounter Details Date Type Department Care Team (Late st Contact Info) Description 01/17/2023 11:28 AM EDT Anesthesia Event [place] [phone] Elizabeth Pereira MD [facility] [place] [address] Katelynn Galvez APRN [place] [address] Anesthesia Record Procedure Summary Procedure Name Responsible Anesthesiologist Anesthesia Start Time Anesthesia Stop Time LAPAROSCOPIC REPAIR ANT. ABDOMINAL HERNIA(S) (IE, EPIGASTRIC, INCISIONAL, VENTRAL, UMBILICAL, SPIGELIAN), INITIAL, W-WO MESH; LESS THAN 3 CM, INCARCERATED OR STRANGULATED (WRVU 8.46) (Abdomen) Elizabeth Pereira MD 01/17/23 1128 01/17/23 1343 Events Date Time Event Comment 01/17/2023 1055 1128 Start 1132 AN Verify 1132 An Start Data 1139 An Induction 1142 An Intubation 1153 Anesthesia Ready 1157 Break/Relief In I assumed ca re for Break Relief before which we: 1. Identified the patient 2. Identified the responsible provider(s) 3. Reviewed the pertinent medical history 4. Discussed the surgical plan and course 5. Reviewed intra-op anesthesia management and issues during anesthesia 6. Set expectations for the relief (and/or post-procedure) period 7. Allowed opportunity for questions and acknowledgement of understanding Clint Sullivan, APPLICATION SUPPORT ADMINISTRATOR 1212 Quick Note Reverse tberg 1221 Break/Relief Out 1328 Extubation/LMA Out 1334 an stop data 1341 Recovery or ICU Handoff Nolvia ent care was transferred to the destination unit staff after review of the patient's medical history, current anesthetic/surgical status and plan, according to the Provider Handoff Checklist. 1343 Stop Meds Name Total Midazolam 2 mg fentaNYL 100 mcg IV Lidocaine 100 mg Propofol 240 mg Rocuronium 70 mg PHENYLephrine 160 mcg Ondansetron 4 mg Dexmedetomidine 24 mcg ceFAZolin (Ancef) 2 g vial a ttach to sodium chloride 0.9% 100 mL Mini-Bag Plus 2 g enoxaparin (Lovenox) (40 mg/0.4 mL) subc utaneous injection 40 mg 40 mg Propofol INF 262.56 mg Albuterol Inhaler 6 puff Sugammadex 200 mg Lactated Ringers 1,500 mL * Agents Name O2 * Blood No blood administrations on file. Lines, Drains, and Airways Type Details Placement Removal Incision 01/17/23; 1224; abdo men; laparoscopic punctures (specify) 01/17/23 1224 by Ayesha Geller, RN (RETIRED) Peripheral IV Line - Single Lumen 01/17/23; 1111; metacarpal vein (top of hand), left; wctj-tph-jctgye catheter system; Anatomical Landmarks; 18 gauge; distraction; 01/18/23; 0946 01/17/23 1111 by Fadia Rain RN 01/18/23 0946 by Ary Jackson RN ETT Mask Ventilation: Adjunct (2); ETT Type: Cuffed; ETT Size: 7 mm; Mac Blade: 3; Attempts: 1; Laryngoscopy Grade: 1; ETT Placement Verified By: Auscultation, Capnometry; Inserted by: Allyson MANNING; Removal Date: 01/17/23; Removal Time: 13201/17/23 1148 by Cherry Valadez CRNA 01/17/23 1328 by Cherry Valadez CRNA documented in this encounter Social History Tobacco Use Types Packs/Day Years Used Date Smoking Tobacco: Former Cigarettes 0.3 30 1 - 01/17/2023 Smokeless Tobacco: Never Alcohol Use Standard Drinks/Week Comments Not Currently 0 (1 standard drink = 0.6 oz pur e alcohol) last drink was 2018 DH IPV Inpatient Questions Answer Date Recorded Does Anyone Try to Keep You From Having Contact with Others or Doing Things Outside Your Home? no 01/17/2023 Feels Threatened by Someone no 09/2022 Feels Unsafe at Home or Work/School no 01/17/2023 Physical Signs of Abuse Present no 01/17/2023 Sex and Gender Information Value Date Recorded Sex Assigned at Not on file Gender Identity Not on file Sexual Orientation Not on file documented as of this encounter OR Notes * Anesthesia Postprocedure Evaluation - Elizabeth Pereira MD - 01/17/2023 3:38 PM EDT Department of Anesthesiology Post-procedure Note Patient: Kallie Darling Procedure Summary Date: 01/17/23 Room / Location: [facility] OR [facility] MAIN OR Anesthesia Start: 1128 Anesthesia Stop: 1343 Procedures: LAPAROSCOPIC REPAIR ANT. ABDOMINAL HERNIA(S) (IE, EPIGASTRIC, INCISIONAL, VENTRAL, UMBILICAL, SPIGELIAN), INITIAL, W-WO MESH; LESS THAN 3 CM, INCARCERATED OR STRANGULATED (WRVU 8.46) (Abdomen) MODIFIER MESH,COVIDIEN,PROGRIP,LAP (Abdomen) Diagnosis: (Ventral hernia) Surgeons: Lashae Lorenzo MD Responsible Provider: Elizabeth Pereira MD Anesthesia Type: general ASA Status: 3 All Anesthesia Providers: Anesthesiologist: Elizabeth Pereira MD APPLICATION SUPPORT ADMINISTRATOR: Cherry Valadez CRNA Vitals Value Taken Time BP 134/80 01/17/23 1515 Temp 36.2 ??C (97.2 ??F) 01/17/23 1515 Pulse 70 01/17/23 1520 Resp 13 01/17/23 1520 SpO2 93 % 01/17/23 1538 Pain Level Vitals shown include unvalidated device data. Patient Location: PACU/[facility] Level of Consciousness: Awake and Alert Pain Management: Satisfactory Analgesia PONV: None Cardiovascular Status: At Baseline Respiratory Status: At Baseline Postoperative Fluid Status: Intravascular EUvolemia Possible Anesthetic Complications: NONE apparent at time of evaluation Final Primary Anesthesia Type: General (The anesthetic type performed was the same as planned.) Comments: * Anesthesia Preprocedure Evaluation - Elizabeth Pereira MD - 01/09/2023 10:29 AM EDT Pre-Anesthesia Evaluation for: Kallie Darling a 62 y.o. female. Procedure(s): LAPAROSCOPIC REPAIR ANT. ABDOMINAL HERNIA(S) (IE, EPIGASTRIC, INCISIONAL, VENTRAL, UMBILICAL, SPIGELIAN), INITIAL, W-WO MESH; LESS THAN 3 CM, INCARCERATED OR STRANGULATED (WRVU 8.46) MODIFIER MESH,BARD VENTRALIGHT ST Patient Active Problem List Diagnosis Date Noted ??? Primary hyperparathyroidism (PTH 165, Ca 11.0, +PUD but no kidney stone) 11/17/2012 ??? Obesity (BMI 30-39.9) 10/16/2017 ??? Smokes 10/16/2017 ??? CVA (cerebral vascular accident) 10/16/2017 ??? Alcoholism in remission 10/16/2017 ??? SOCORRO (obstructive sleep apnea) ??? GERD (gastroesophageal reflux disease) ??? Hyperlipidemia ??? Alcoholic cirrhosis of liver without ascites 01/11/2015 ??? Hyperparathyroidism 12/21/2012 ??? H/O hysterectomy for benign disease at age 32 (menorrhagia/DUB) 11/17/2012 ? ? Alcoholic gastritis & chronic liver disease (esophageal varices) 11/17/2012 ??? Low back pain 10/17/2010 ??? Right foot pain 07/30/2010 ??? Neck pain 07/30/2010 ??? Left elbow pain 07/30/2010 ??? Asthma 07/30/2010 ??? Chronic low back pain 07/30/2010 ??? Restless leg syndrome 07/30/2010 ??? Acid reflux 07/30/2010 ??? Learning disability 07/30/2010 Past Medical History: Diagnosis Date ??? Allergic state ??? Amblyopia OS? Pt sketchy on details. never treated. ??? Arthritis ??? Asthma ??? Cataract ??? Cirrhosis ??? Constipation ??? CVA (cerebral vascular accident) 10/16/2017 ??? Depression ??? Disease of blood and blood forming organ ??? Elevated liver function tests ??? GERD (gastroesophageal reflux disease) ??? Hyperlipidemia ??? Lower extremity pain Right sided ??? SOCORRO (obstructive sleep apnea) ??? Thyroid disease ??? Trauma Past Surgical History: Procedure Laterality Date ??? CHOLECYSTECTOMY 2009 ??? HAND SURGERY 1967 left thumb ??? HYSTERECTOMY 1979 ??? KNEE ARTHROSCOPY 2002 left ??? PRG EMG, LARYNX N/A 11/10/2017 FACIAL NERVE MONITORING, SETUP LARYNGEAL (WRVU 1.57) performed by Ana Dias MD at [facility] MAIN OR ? ? PRO BRNCHSC EBUS GUIDED SAMPL 3/> NODE STATION/STRUX N/A 09/11/2017 BRONCH, W ENDOBRONCHIAL ULTRASOUND (EBUS) GUIDED SAMPLING, 3+ NODES (WRVU 5.21) performed by Josh Guadarrama MD at [facility] ENDOSCOPY ??? PRO COLONOSCOPY, BIOPSY 01/27/2014 COLONOSCOPY FLEXIBLE, WITH BX performed by Natividad Taveras MD at [facility] ENDOSCOPY ??? PRO COLONOSCOPY, DIAGNOSTIC 02/17/2012 COLONOSCOPY, DIAGNOSTIC performed by ENRICO RUGGIERO at [facility] ENDOSCOPY ??? PRO COLONOSCOPY, DIAGNOSTIC 2012 COLONOSCOPY, DIAGNOSTIC performed by Natividad Taveras MD at [facility] ENDOSCOPY ??? PRO EXPLORE PARATHYROID GLANDS N/A 11/10/2017 PARATHYROIDECTOMY OR EXPLORATION OF PARATHYROID(S) (WRVU 15.6) performed by Ana Dias MD at [facility] MAIN OR ??? PRO NEEDLE BIOPSY LIVER 01/28/2012 ??? PRO UPPER GI ENDOSCOPY, BIOPSY N/A 10/21/2016 UPPER GASTROINTESTINAL ENDOSCOPY,WITH BIOPSY SINGLE OR MULTIPLE (WRVU 2.49) performed by Matthew Garcia MD at [facility] ENDOSCOPY ??? PRO UPPER GI ENDOSCOPY, DIAGNOSTIC N/A 10/21/2016 EGD, UPPER GI ENDOSCOPY performed by Matthew Garcia MD at [facility] ENDOSCOPY ??? UPPER GI ENDOSCOPY, EXAM 2012 UPPER GI ENDOSCOPY performed by Natividad Taveras MD at [facility] ENDOSCOPY Social History Tobacco Use ??? Smoking status: Every Day Packs/day: 0.25 Years: 30.00 Pack years: 7.50 Types: Cigarettes ??? Smokeless tobacco: Never Substance Use Topics ??? Alcohol use: No Comment: No ETOH x 3 months; Hx of 1-2 beers/day during week and 6-8 beers on weekend Social History Substance and Sexual Activity Drug Use No Comment: No hx of IV or intranasal drug use Allergies Allergen Reactions ??? Amoxicillin-Pot Clavulanate Nausea Only ??? Bacitracin Nausea Only ??? Gramicidin D Nausea Only ??? Neomycin Nausea Only and Rash ??? Neomycin Sulfate Nausea Only ??? Polymyxin B Nausea Only ??? Adhesive Medical tape causes itching and rash. Paper tape and tegaderm ar okay ??? Amoxicillin Can't remember reaction ??? Aspirin Nausea And Vomiting ??? Celecoxib Hives ??? Lactase ??? Lactose Other (See Comments) GI Upset ??? Bbiyxasg-Yubedprsdbp-Xkohinlve Nausea and rash Medications: MAR and/or home medications have been reviewed. Physical Exam: Preprocedure Vitals Current as of 01/09/23 1029 No BP, pulse, respiration, SpO2, or temperature recorded. Height: Weight: BMI: IBW: Airway Assessment: Mallampati: II TM distance: >3 FB Neck ROM: full Cardiovascular Assessment: Rhythm: regular Rate: normal Pulmonary Assessment: unlabored breathing Dental Assessment: Comment: edentulous Misc Assessment: IV access: Peripheral line Last Filed Perioperative Cognitive Screening None Anesthesia Plan: ASA 3 general, with a(n) intravenous induction 62 y.o. female with a history of RAD, HLD, DM2, SOCORRO (not on CPAP, though it has been recommended), COPD, h/o CVA (no residual). H/o EtOH (cirrhosis, gastritis), GERD, and ventral hernia scheduled for: Procedure(s): LAPAROSCOPIC REPAIR ANT. ABDOMINAL HERNIA(S) (IE, EPIGASTRIC, INCISIONAL, VENTRAL, UMBILICAL, SPIGELIAN), INITIAL, W-WO MESH; LESS THAN 3 CM, INCARCERATED OR STRANGULATED (WRVU 8.46) MODIFIER MESH,BARD VENTRALIGHT ST Previous anesthetics without issue- H/o Mill 2, grade 1 view 11/10/17 URI/COVID symptoms: no Tobacco: quit 12/04 GERD: well controlled on Pepcid Plan GA with routine monitors- ETT. Plans and risks reviewed. Questions answered. Region - Other Informed Consent: Anesthetic plan and risks discussed with patient. Plan discussed with APPLICATION SUPPORT ADMINISTRATOR and attending. Anesthesia Screening Note: Date and Time of Entry: 01/09/2023 10:30 AM Entered By: Katelynn Galvez APRN Reason for Evaluation: Surgeon Request Other Reason: Cirrhosis Screening Visit Type: Telephone Call Additional/Outside Records Requested? Did not request medical information from outside organization. Findings, Assessment and Plan: 62 y.o. female BMI 41 presenting for pre- anesthesia telephone consultation prior to laparoscopic ventral hernia repair with Dr. Lorenzo 01/17/23. MEDICAL HISTORY: #cirrhosis: MELD-Na score: 8 from 05/30/22. MONA/HARDEN c/b portal HTN: Grade 1 esophageal varices on carvedilol #COPD: reports since she quit smoking in November, her breathing has noticeably improved. Uses albuterol when needed, does not use daily. Has Symbicort inhaler but does not use regularly #GERD: well controlled on pantoprazole #hx CVA: reports having a residual stutter #DM: metformin (08/19/22 A1C 6.6) #neuropathy:Gabapentin Cleans her house daily (vacuuming, sweeping floors) and tends to her garden (raking, weeding). Denies chest pain, palpitations, orthopnea, dizziness or syncope. No SOB at rest. Will have SOB with moderate exertion. No recent COPD exacerbations. NM stress test ([facility]) 01/03/20 Ejection fraction was 73% with stress. There were no motion abnormalities. There is no evidence of ischemia on the imaging portion exam. This represents a normal SPECT stress test. TTE 06/27/17 EF 55-60%. Moderate LVH. No regional WMAs. RV systolic function mildly reduced. Mild MR. Social History: Tobacco Use: Quit November 2022- using chantix. Smoked 2-3ppd for 50 years Alcohol: Denies any current use SURGICAL HISTORY: craniotomy for surgical clipping of right middle cerebral aneurysm, parathyroidectomy, bronchoscopy/EBUS ANESTHETIC HISTORY: Denies any previous complications related to anesthesia Overall: Kallie Darling is a 62 y.o. with a history of cirrhosis, COPD, GERD, hx CVA, DM and neuropathy scheduled for laparoscopic ventral hernia repair with Dr. Lorenzo 01/17/23. We discussed patients with cirrhosis are at higher risk for manasa-operative complications including the risk of worsening liver function and bleeding. Recommended obtaining updated labs. Will fax orders to [facility] per patient request. Kallie reports her breathing has improved since quitting smoking. Congratulated carolina this and recommended continued smoking cessation. Advised bringing inhalers with her on day of surgery. She reports >4METs without concerning cardiopulmonary symptoms. No additional testing recommended at this time. Discussed the risks and benefits of anesthesia. All questions answered to thepatient's satisfaction. Case discussed with attending anesthesiologist Dr. Zuñiga. Katelynn Galvez, PERFORMANCE IMPROVEMENT SPECIALIST 01/09/23 Update (01/16/23): Labs from [facility] drawn 01/15/23 scanned under media. Hgb 10.5, platelets 100, INR 1.1, creatinine 0.9, K 3.7 documented in this encounter Plan of Treatment Upcoming Encounters Date Type Department Care Team (Late st Contact Info) Description 02/27/2024 2:45 PM EST TH Visit (TeleHealth) [place] [phone] Lashae Lorenzo MD [facility] [place] [address] documented as of this encounter Visit Diagnoses Not on filedocumented in this encounter Administered Medications Inactive Administered Medications - up to 3 most recent administrations Medication Order MAR Action Action Date Dose Rate Site albuteroL 90 mcg/actuation inhaler Inhalation, PRN, Starting on Fri01/17/23 at 1238, Until Fri01/17/23 at 1343, Anesthesia Intra-op, Routine Given 01/17/2023 1:17 PM EDT 2 puffs Given 01/17/2023 12:52 PM EDT 2 puffs Given 01/17/2023 12:38 PM EDT 2 puffs ceFAZolin (Ancef) 2 g vial attach to sodium chloride 0.9% 100 mL Mini-Bag Plus 2 g, Intravenous, EVERY 4 HOURS, 1 dose, First dose on Fri01/17/23 at 1100, Administer over 30 Minutes, Intra-Operative (Intra-Procedure), Indication for (Active or Suspected): Prophylaxis New Bag 01/17/2023 11:52 AM EDT 2 g dexmedeTOMIDine (Precedex) (4 mcg/mL) bolus injection (Anesthsia) Intravenous, PRN, Starting on Fri01/17/23 at 1132, Until Fri01/17/23 at 1343, Anesthesia Intra-op, Routine Given 01/17/2023 12:59 PM EDT 8 mcg Given 01/17/2023 12:42 PM EDT 4 mcg Given 01/17/2023 12:35 PM EDT 4 mcg enoxaparin (Lovenox) (40 mg/0.4 mL) subcutaneous injection 40 mg 40 mg, Subcutaneous, ONCE, 1 dose, On Fri01/17/23 at 1100, Day of Surgery (Day of Procedure), Routine Given 01/17/2023 12:07 PM EDT 40 mg fentaNYL (pf) (50 mcg/mL) multi-dose injection Intravenous, PRN, Starting on Fri01/17/23 at 1139, Until Fri01/17/23 at 1343, Anesthesia Intra-op, Routine Given 01/17/2023 12:14 PM EDT 50 mcg Given 01/17/2023 11:39 AM EDT 50 mcg lactated ringers infusion Intravenous, CONTINUOUS PRN, Starting on Fri01/17/23 at 1128, Until Fri01/17/23 at 1343, Anesthesia Intra-op New Bag 01/17/2023 11:28 AM EDT lidocaine (pf) (Xylocaine) (20 mg/mL) 2% injection syringe Intravenous, PRN, Starting on Fri01/17/23 at 1139, Until Fri01/17/23 at 1343, Anesthesia Intra-op, Routine Given 01/17/2023 11:39 AM EDT 100 mg midazolam (pf) (Versed) (1 mg/mL) multi-dose injection Intravenous, PRN, Starting on Fri01/17/23 at 1140, Until Fri01/17/23 at 1343, Anesthesia Intra-op, Routine Given 01/17/2023 11:40 AM EDT 2 mg ondansetron (pf) (Zofran) (2 mg/mL) injection Intravenous, PRN, Starting on Fri01/17/23 at 1247, Until Fri01/17/23 at 1343, Anesthesia Intra-op, Routine Given 01/17/2023 12:47 PM EDT 4 mg PHENYLephrine in NS (PF) (MAUDE-SYNEPHRINE) 0.8 mg/10 mL (80 mcg/mL) multi-dose injection Syringe Intravenous, PRN, Starting on Fri01/17/23 at 1157, Until Fri01/17/23 at 1343, Anesthesia Intra-op, Routine Given 01/17/2023 12:02 PM EDT 80 mcg Given 01/17/2023 11:57 AM EDT 80 mcg propofoL (Diprivan) (10 mg/mL) infusion Intravenous, CONTINUOUS PRN, Starting on Fri01/17/23 at 1157, Until Fri01/17/23 at 1343, Anesthesia Intra-op, Routine Rate/Dose Change 01/17/2023 12:35 PM EDT 30 mcg/kg/min 19.692 mL/hr Rate/Dose Change 01/17/2023 12:11 PM EDT 50 mcg/kg/min 32. 82 mL/hr New Bag 01/17/2023 11:57 AM EDT 30 mcg/kg/min 19.692 mL /hr propofoL (Diprivan) 10 mg/mL bolus injection (Anesthesia) Intravenous, PRN, Starting on Fri01/17/23 at 1139, Until Fri01/17/23 at 1343, Anesthesia Intra-op Given 01/17/2023 11:39 AM EDT 240 mg rocuronium (Zemuron) (10 mg/mL) multi-dose injection Intravenous, PRN, Starting on Fri01/17/23 at 1133, Until Fri01/17/23 at 1343, Anesthesia Intra-op, Routine Given 01/17/2023 11:40 AM EDT 70 mg sugammadex (Bridion) 100 mg/mL injection Intravenous, PRN, Starting on Fri01/17/23 at 1302, Until Fri01/17/23 at 1343, Anesthesia Intra-op, Routine Given 01/17/2023 1:02 PM EDT 200 mg documented in this encounter Care Teams Od Grinder Operator Relationship Specialty Start Date End Date Grant Lindsey MD PCP - General Family Medicine 02/25/19 documented as of this encounter
--- OUTSIDE RECORDS SUMMARY | 2024-01-23 00:32 | XMS_ITS | Encounter Summary ---
[facility] [place] [address] Care Team Providers Care Customer Acquisition Specialist Name Role Phone Grant Lindsey MD Primary Care Provider [phone] Encounter Details Date Type Department Care Team (Latest Contact Info) Description 05/30/2022 8:51 AM EST - 05/30/2022 11:59 PM EST Hospital [place] [address] Saniya Thomsno, MACHINE MAINTENANCE SERVICER [facility] [place] [address] Hepatic cirrhosis, unspecified hepatic cirrhosis type, unspecified whether ascites present Discharge Disposition: Home Social History Tobacco Use Types Packs/Day Years [...] on file documented as of this encounter Medications at Time of Discharge Medication Sig Dispensed Refills Start Date End Date furosemide (Lasix) 20 mg Tablet Take 20 mg by mouth Daily. 11/21/2019 escitalopram (Lexapro) 20 mg Tablet Take 20 mg by mouth 2 times daily. Takes 20 mg in AM and 10 mg in PM 05/29/2022 zonisamide (Zonegran) 100 mg Capsule Take 100 mg by mouth nightly. 05/29/2022 traZODone (Desyrel) 50 mg tablet Take 50 mg by mouth nightly. mirtazapine (Remeron) 15 mg Tablet Take 15 mg by mouth nightly. 05/29/2022 metFORMIN (Glucophage) 1,000 mg Tablet 1,000 mg 2 times daily (with meals). 05/07/2022 Symbicort 160-4.5 mcg/actuation HFA Aerosol Inhaler Inhale 2 puffs into the lungs 2 times daily. 05/13/2022 famotidine (Pepcid) 20 mg Tablet Take 20 mg by mouth Twice daily. Loratadine (Claritin Reditabs) 5 mg disintegrating tablet Take 5 mg by mouth daily. albuterol sulfate 90 mcg/actuation Aerosol Powdr Breath Activated Inhale 180 mcg into the lungs 4 times daily as needed. gabapentin (NEURONTIN) 800 mg Tablet Take 800 mg by mouth 3 times daily. docusate sodium (COLACE) 100 mg Capsule Take 100 mg by mouth as needed for Constipation. pantoprazole (PROTONIX) 40 mg Tablet, Delayed Release (E.C.) Take 40 mg by mouth daily. lisinopriL (Zestril) 5 mg Tablet 05/07/2022 01/09/2023 risperiDONE (RisperDAL) 0.5 mg Tablet 0.5 mg. 05/29/2022 01/16/2023 Incruse Ellipta 62.5 mcg/actuation Disk with Device 03/20/2022 01/09/2023 hydrOXYzine (Atarax) 25 mg Tablet TAKE 1 TABLET BY MOUTH EVERY 6 HOURS NEEDED FOR ANXIETY NAUSEA 04/13/2019 01/16/2023 calcium citrate-vitamin D (CALCIUM CITRATE +) 315-200 mg-unit Tablet Take 2 tablets by mouth 3 times daily (with meals). 11/11/2017 01/16/2023 citalopram (CELEXA) 40 mg Tablet Take 40 mg by mouth daily. 01/09/2023 fluticasone-salmeterol (ADVAIR HFA) 45-21 mcg/actuation HFA Aerosol Inhaler Inhale 2 puffs into the lungs 2 times daily. 01/09/2023 clopidogrel (PLAVIX) 75 mg Tablet Take 75 mg by mouth daily. 01/07/2023 NOVOLOG FLEXPEN U-100 INSULIN Insulin Pen inject subcutaneously three times a day as directed with meals (I... (REFER TO PRESCRIPTION NOTES). 1 07/23/2017 01/09/2023 cyanocobalamin 1,000 mcg Tablet 0 08/25/2016 01/16/2023 levothyroxine (SYNTHROID) 50 mcg Tablet Take 50 mcg by mouth daily. 01/16/2023 documented as of this encounter Plan of Treatment Upcoming Encounters Date Type Department Care Team (Late st Contact Info) Description 02/27/2024 2:45 PM EST TH Visit (TeleHealth) [place] [address] Lashae Lorenzo MD [facility] [place] [address] documented as of this encounter Procedures Procedure Name Priority Date/Time Associated Diagnosis Comments US ABDOMEN LIMITED HEPATOLOGY PROTOCOL Routine 05/30/2022 9:38 AM EST Hepatic cirrhosis, unspecified hepatic cirrhosis type, unspecified whether ascites present documented in this encounter Results * US Abdomen Limited Hepatology Protocol (05/30/2022 9:38 AM EST) Anatomical Region Laterality Modality Abdomen Ultrasound 05/30/2022 9:14 AM EST Impressions 05/30/2022 11:50 AM EST 1. Similar appearance of borderline hepatomegaly, coarsened parenchyma and capsular nodularity from the patient's known cirrhosis. There is no focal hepatic lesion. 2. 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 3. Gallbladder surgically absent. No intra or extrahepatic biliary ductal dilation. 4. No ascites. Thank you for letting us participate in the care of this patient. If you are a health care provider and have any questions regarding this report, please contact the number above. For patients who have questions, please contact the health human services care specialist that requested your imaging first. ?Primo Guthrie, Staff Physician Electronically Signed Final Report ?? 05/30/2022 11:49 am Narrative 05/30/2022 11:50 AM EST Abdominal ? (Signed Final 05/30/2022 11:49 am) PATIENT INFO: ID #: ? [id number] ?: ??[birth year] (61 yrs)(F) Name: ? KALLIE SMART ? Visit Date: 05/30/2022 09:14 am PERFORMED BY: Performed By: ? Grace Jones RDMS Attending: ?Primo Guthrie MD Referred By: ?SANIYA THOMSON Location: ? [place] [facility] - Abdominal ?[id number] Limited Survey Single Organ or Quadrant - [id number] INDICATIONS: cirrhosis, screen for hcc COMPARISON: US: 04/19/20 ------ LIVER: ------ Right Lobe Length: ?? 19.6 ?? cm Echogenicity/Echotexture: ?? Coarse parenchyma with capsular ? nodularity Comment: ?Recanalized umbilical vein GALLBLADDER: Cholelithiasis: ?Surgically absent Focal Tenderness: ?Negative sonographic Beltran's sign BILIARY TRACT: Intrahepatic Ducts: ?? Normal Extrahepatic Ducts: ?? Normal Common Duct Size: ? 9.2 ? mm FLUID COLLECTIONS: Ascites not present on 4 quadrant evaluation. Procedure Note Primo Guthrie MD - 05/30/2022 Abdominal (Signed Final 05/30/2022 11:49 am) PATIENT INFO: ID #: [id number] : 60 (61 yrs)(F) Name: KALLIE SMART Visit Date: 05/30/2022 09:14 am PERFORMED BY: Performed By: Grace Jones RDMS Attending: Primo Guthrie MD Referred By: SANIYA THOMSON Location: [place] SERVICE[facility]S) [facility] Protocol - Abdominal [id number] Limited Survey Single Organ or Quadrant - [id number] INDICATIONS: cirrhosis, screen for hcc COMPARISON: US: 04/19/20 ------ LIVER: ------ Right Lobe Length: 19.6 cm Echogenicity/Echotexture: Coarse parenchyma with capsular nodularity Comment: Recanalized umbilical vein GALLBLADDER: Cholelithiasis: Surgically absent Focal Tenderness: Negative sonographic Beltran's sign BILIARY TRACT: Intrahepatic Ducts: Normal Extrahepatic Ducts: Normal Common Duct Size: 9.2 mm FLUID COLLECTIONS: Ascites not present on 4 quadrant evaluation. IMPRESSION 1. Similar appearance of borderline hepatomegaly, coarsened parenchyma and capsular nodularity from the patient's known cirrhosis. There is no focal hepatic lesion. 2. 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 3. Gallbladder surgically absent. No intra or extrahepatic biliary ductal dilation. 4. No ascites. Thank you for letting us participate in the care of this patient. If you are a health care provider and have any questions regarding this report, please contact the number above. For patients who have questions, please contact the health human services care specialist that requested your imaging first. Primo Guthrie, Staff Physician Electronically Signed Final Report 05/30/2022 11:49 am Saniya Thomson APRN IMG US GEN ORDERAB LES documented in this encounter Visit Diagnoses Diagnosis Hepatic cirrhosis, unspecified hepatic cirrhosis type, unspecified whether ascites present documented in this encounter Care Teams Customer Acquisition Specialist Relationship Specialty Start Date End Date Grant Lindsey MD PCP - General Family Medicine 02/25/19 documented as of this encounter
--- OUTSIDE RECORDS SUMMARY | 2024-01-23 00:32 | XMS_ITS | Encounter Summary ---
Author Organization [place] [address] Care Team Providers Care Manager Transfer Name Role Phone Grant Lindsey MD Primary Care Provider [phone] Reason for Visit * Auth/Cert (Routine) Specialty Diagnoses / Procedures Referred By Nicol sparks Referred To Contact Diagnoses Ventral hernia Ventral hernia Procedures PRO REPAIR AA HERNIA INITIAL < 3 CM INCARCERATED/STRANGULATED LAPAROSCOPIC REPAIR ANT. ABDOMINAL HERNIA(S) (IE, EPIGASTRIC, INCISIONAL, VENTRAL, UMBILICAL, SPIGELIAN), INITIAL, W-WO MESH; LESS THAN 3 CM, INCARCERATED OR STRANGULATED (WRVU 8.46) MODIFIER MESH,BARD VENTRALIGHT Lashae Lorenzo MD [facility] [place] [address] [facility] Referral ID Status Reason Start Date Expiration Date Visits Re quested Visits Authorized [id number] 1 1 Encounter Details Date Type Department Care Team (Late st Contact Info) Description 01/17/2023 11:21 AM EDT - 01/17/2023 1:36 PM EDT Surgery [place] [address] Lashae Lorenzo MD [facility] [place] [address] LAPAROSCOPIC REPAIR ANT. ABDOMINAL HERNIA(S) (IE, EPIGASTRIC, INCISIONAL, VENTRAL, UMBILICAL, SPIGELIAN), INITIAL, W-WO MESH; LESS THAN 3 CM, INCARCERATED OR STRANGULATED (WRVU 8.46) Social History Tobacco Use Types Packs/Day Years Used Date Smoking Tobacco: Former Cigarettes 0.3 30 1 - 01/17/2023 Smokeless Tobacco: Never Tobacco Cessation:Counseling Given: Not Answered Alcohol Use Standard Drinks/Week Comments Not Currently 0 (1 standard drink = 0.6 oz pur e alcohol) last drink was 2019 [facility] IPV Inpatient Questions Answer Date Recorded [...] on file documented as of this encounter Last Filed Vital Signs Vital Sign Reading Time Taken Comments Blood Pressure 130/78 01/17/2023 10:36 AM EDT Pulse 71 01/17/2023 10:36 AM EDT Temperature 36.7 ??C (98.1 ??F) 01/17/2023 1 0:36 AM EDT Respiratory Rate 20 01/17/2023 10:3 6 AM EDT Oxygen Saturation 97% 01/17/2023 10: 36 AM EDT Inhaled Oxygen Concentration - - Weight 109.4 kg (241 lb 3.2 oz) 023 10:36 AM EDT Height 165.1 cm (5' 5) 01/17/2023 10:3 6 AM EDT Body Mass Index 40.14 01/17/2023 10:36 AM EDT documented in this encounter Discharge Summaries * Ramón Hendrix MD - 01/18/2023 9:00 AM EDT General Surgery Discharge Summary Patient Name: Kallie Darling Patient Age: 62 y.o. : 1960 Attending Physician: Lashae Lorenzo MD Date of Admission: 01/17/2023 Date of Discharge: 01/18/2023 Reason for admission: Post operative care following: laparoscopic ventral hernia repair Primary Diagnosis: ventral hernia Secondary Diagnosis: Patient Active Problem List Diagnosis Code Right foot pain M79.671 Neck pain M54.2 Left elbow pain M25.522 Asthma J45.909 Chronic low back pain M54.50, G89.29 Restless leg syndrome G25.81 Acid reflux K21.9 Learning disability F81.9 Low back pain M54.50 Primary hyperparathyroidism (PTH 165, Ca 11.0, +PUD but no kidney stone) E21.0 H/O hysterectomy for benign disease at age 32 (menorrhagia/DUB) Z90.710 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 ABDOMINAL HERNIA(S) (IE, EPIGASTRIC, INCISIONAL, VENTRAL, UMBILICAL, SPIGELIAN), INITIAL, W-WO MESH; LESS THAN 3 CM, INCARCERATED OR STRANGULATED (WRVU 8.46) MODIFIER MESH,COVIDIEN,PROGRIP,LAP Surgeons: Surgeon(s) and Role: * Lashae Lorenzo MD - Primary * Leo Moreira MD - Fellow - Assisting History of Present Illness: Kallie Darling is a 62 y.o. female with h/o ventral hernia with symptoms. she presents for laparoscopic ventral hernia repair. Hospital Course: Kallie Darling is a 62 y.o. female who was admitted on 01/17/2023 postoperatively after hernia repair. Operative course was uneventful, please see operative note for further detail. Postoperative she received a low Na diet as well as tylenol, gabapentin and oxycodone for pain control. she received subcutaneous Lovenox for DVT prophylaxis. On POD#1 her diet was kept the same, which was tolerated well. she was changed to oral pain medications and IV analgesics were discontinued on POD#1. she did not have Alvarez catheter and was voiding without difficulty for the duration of her admission Prior to discharge on 01/18/23 or hospital day 0, patient's pain was well controlled with oral painmedications, patient was voiding without difficulty, and all wounds were intact and healing appropriately. Patient did not have a bowel movement prior to discharge but was passing flatus and tolerating a Low Sodium diet 2 GM NA. Vitals were within normal limits and patient was determined medically ready for discharge to home. Vital Signs Last value Range last 24hrs Temperature Temp: 37 ??C (98.6 ??F) Temp: [36.2 ??C (97.2 ??F)-37.1 ??C (98.8 ??F)] Heart Rate Heart Rate: 70 Heart Rate: [69-75] Blood Pressure BP: 140/79 BP: (119-145)/(66-83) Respiratory Rate Resp: 18 Resp: [11-20] SpO2 SpO2: 93 % SpO2: [91 %-97 %] Pertinent Lab Data: Recent Labs 01/18/23 0040 01/17/23 1004 WBC 3.4* 3.7* HGB 9.4* 10.1* HCT 30.4* 32.5* PLATELET 85* 89* PT -- 14.0* INR -- 1.2 Recent Labs 01/18/23 0040 01/17/23 1004 NA 140 139 K 3.9 3.9 CL 102 101 CO2 26 25 BUN 8 10 CREATININE 0.61* 0.79 GLUCOSE 118 108 CALCIUM 8.9 9.4 Imaging: No results found. Physical Exam: General: AOx3, pleasant, conversant, no acute distress HEENT: normocephalic, atraumatic CVS: RRR on monitor Pulm: breathing comfortably on RA Abd: soft, nontender, non-distended, incisions clean/dry/intact : no alvarez Skin: warm, dry Ext: well perfused, no jaundice or cyanosis, no edema Neuro: CN 2-12 grossly intact, nonfocal, moving all four extremities spontaneously Condition at discharge: Stable Mental Status: awake and alert, oriented x 3 Medications: Your Medications New Medications Dose Details oxyCODONE 5 mg tablet Commonly known as: Roxicodone Take 1 tablet by mouth every 6 hours as needed for Pain. 5 mg Quantity: 12 tablet Refills: 0 Continued medications, unchanged Dose Details albuterol sulfate 90 mcg/actuation Aerosol Powdr Breath Activated Commonly known as: ProAir RespiClick Inhale 180 mcg into the lungs 4 times daily as needed. 180 mcg Refills: 0 carvediloL 6.25 mg tablet Commonly known as: Coreg Take 6.25 mg by mouth 2 times daily (with meals). 6.25 mg Refills: 0 docusate sodium 100 mg capsule Commonly known as: Colace Take 100 mg by mouth as needed for Constipation. 100 mg Refills: 0 escitalopram 20 mg tablet Commonly known as: Lexapro Take 20 mg by mouth 2 times daily. Takes 20 mg in AM and 10 mg in PM 20 mg Refills: 0 famotidine 20 mg tablet Commonly known as: Pepcid Take 20 mg by mouth Twice daily. 20 mg Refills: 0 furosemide 20 mg tablet Commonly known as: Lasix Take 20 mg by mouth Daily. 20 mg Refills: 0 gabapentin 800 mg tablet Commonly known as: Neurontin Take 800 mg by mouth 3 times daily. 800 mg Refills: 0 Loratadine 5 mg disintegrating tablet Commonly known as: Claritin Reditabs Take 5 mg by mouth daily. 5 mg Refills: 0 metFORMIN 1,000 mg tablet Commonly known as: Glucophage 1,000 mg 2 times daily (with meals). 1,000 mg Refills: 0 mirtazapine 15 mg tablet Commonly known as: Remeron Take 15 mg by mouth nightly. 15 mg Refills: 0 pantopraz[address] EC [address] tablet Commonly known as: Protonix Take 40 mg by mouth daily. 40 mg Refills: 0 Symbicort 160-4.5 mcg/actuation HFA Aerosol Inhaler Inhale 2 puffs into the lungs 2 times daily. Generic drug: budesonide-formoteroL 2 puff Refills: 0 traZODone 50 mg tablet Commonly known as: Desyrel Take 50 mg by mouth nightly. 50 mg Refills: 0 varenicline 1 mg tablet Commonly known as: Chantix Take 1 mg by mouth 2 times daily. 1 mg Refills: 0 zonisamide 100 mg capsule Commonly known as: Zonegran Take 100 mg by mouth nightly. 100 mg Refills: 0 Disposition: Home Allergies: Allergies Allergen Reactions Amoxicillin-Pot Clavulanate Nausea Only Bacitracin Nausea Only Gramicidin D Nausea Only Neomycin Nausea Only and Rash Neomycin Sulfate Nausea Only Polymyxin B Nausea Only Adhesive Medical tape causes itching and rash. Paper tape and tegaderm ar okay Amoxicillin Can't remember reaction Aspirin Nausea And Vomiting Celecoxib Hives Lactase Lactose Other (See Comments) GI Upset Qyfeheri-Iqoblzvlmay-Dkonzvhug Nausea and rash Outpatient Services/Studies: No discharge procedures on file. Scheduled Appointments: Future Appointments and Orders Future Appointments and Orders Future Appointments Provider Department Dept Phone 02/17/2023 2:45 PM Lashae Lorenzo MD General Surgery at [facility] Arrive at: [place] Please dispose of unused excess opioids before your appointment or bring them with you to the appointment and we will help you dispose of them correctly. Instructions Given to Patient at Discharge: Patient Instructions Discharge Instructions - Laparoscopic Ventral Hernia Repair Wound Care: You have liquid dressing over your incisions, there is nothing to remove. You may shower in 24 hours. When you shower, let soap and water run over incisions without scrubbing. Pat dry gently. Some bruising around your incisions is normal. Using ice packs will help minimize this swelling. No swimming or soaking in water (ie. hot tubs or baths) for two weeks. Your stitches will dissolve and do not need to be removed. Activity: No heavy lifting more than 10-15 pounds for the next 4 weeks, then you may gradually lift heavier objects as tolerated by discomfort. Otherwise activity as tolerated by your comfort level. Use your abdominal binder when you are up and active until you see your surgery team for your follow up visit. You do not need to wear the binder when showering or sleeping. Call Doctor for: Worsening redness or drainage from incision(s) lasting longer than 5 days after your surgery Any foul-smelling drainage from the incision Pain not controlled by pain medications Persistent nausea or vomiting Any fevers greater than 101.3 F For questions or concerns during business hours please call the Surgery Clinic at [phone] before 5 PM on weekdays. For questions after hours and on weekends please call the hospital engine lathe set up operator tool at [phone] and ask for the General Surgery resident supply controller. They may not be familiar with your case so be prepared to identify yourself and the procedure you had done. Pain Management Use heat or ice packs to your incisions. Take Tylenol 1000mg (two extra strength tablets) up to every 6 hours. Do NOT take more than 4000mg every day, AND Take ibuprofen 200-600mg every 6 hours with some food. Avoid taking ibuprofen on an empty stomach or for longer than 2 weeks. For pain not covered by Tylenol and ibuprofen, take the prescription narcotic medicine: 5 mg every 4-6 hours Take the medication exactly as it is prescribed and make sure to read all instructions that come with the medication. Over the next couple of days you should be requiring less of this medication to control your pain, so that eventually you will not need any at all. You do not have to take all of the medication that was prescribed, if you have leftover pain medication this can be disposed of at a pharmacy or at your next follow up visit in the surgery clinic. Taking more than the prescribed amount of medication or using with alcohol or other drugs can causeyou to stop breathing resulting in coma, brain damage, or . Opioids can slow reaction time, cause drowsiness, or cloud judgement. Do not drive for 8 hours after any dose of opioid pain medication if one was prescribed for you. Using this drug may cause addiction. While addiction is more common in people with a personal or family history of addiction, it can occur in anyone. Opioids are at risk of being diverted by anyone with access to your home. Opioids should be stored in a safe and secure place, such as a locked cabinet or safe. Unused opioids should be disposed of appropriately. They may be returned to a take-back location, or mixed with a small amount of water and poured over an undesirable waste such as used coffee grounds or cat litter. Please note that most pain medications can cause constipation. You may use a stool softener such asMiralax or Colace to prevent this. Both of these medications can be bought over the counter. Pain Tapering Instructions Your pain should slowly and steadily diminish as you heal. If your pain level at the surgery site increases, you should call us. It is normal for increased pain if you are overly active or you decrease your pain medication, but a significant and unexplained increase in pain should be discussed with your surgeon. Pain medication is usually necessary for only 4-5 days postoperatively. It is important to have a plan for tapering off of pain medication. See below for tapering schedule sample. As your pain improves, start to wean oxycodone first by taking fewer tablets and taking it less often. Continue your Tylenol and ibuprofen as you wean the narcotic. Next, stop taking the ibuprofen. Wean the Tylenol last. Other Means for Pain Relief: Learn deep breathing exercises or meditation to help you relax. Reduce stress. Your body produces natural endorphins from exercise which can help reduce pain. Even walking is considered exercise. Talk with your provider/surgical team about what exercises are appropriate for youto perform. You may use a heating pad or apply ice to the painful area unless specifically discouraged by the surgical team. Find ways to distract yourself from the pain. Follow-up: Please call [phone] (clinic number for appointments) to confirm or change the date and time of your appointment. Future Appointments Date Time Provider Department Center 02/17/2023 2:45 PM Lashae Lorenzo MD [facility]G [facility] General Instructions None Future Appointments and Orders Future Appointments and Orders Future Appointments Provider Department Dept Phone 02/17/2023 2:45 PM Lashae Lorenzo MD General Surgery at [facility] Arrive at: [place] 4[place] [phone] Please dispose of unused excess opioids before your appointment or bring them with you to the appointment and we will help you dispose of them correctly. Signed: Ramón Hendrix MD 01/18/23 Primary [facility] Physician: MD [address] [facility] [id number] documented in this encounter Discharge Instructions * Patient Instructions* Ramón Hendrix MD - 01/18/2023 9:08 AM EDT Discharge Instructions - Laparoscopic Ventral Hernia Repair Wound Care: You have liquid dressing over your incisions, there is nothing to remove. You may shower in 24 hours. When you shower, let soap and water run over incisions without scrubbing. Pat dry gently. Some bruising around your incisions is normal. Using ice packs will help minimize this swelling. No swimming or soaking in water (ie. hot tubs or baths) for two weeks. Your stitches will dissolve and do not need to be removed. Activity: No heavy lifting more than 10-15 pounds for the next 4 weeks, then you may gradually lift heavier objects as tolerated by discomfort. Otherwise activity as tolerated by your comfort level. Use your abdominal binder when you are up and active until you see your surgery team for your follow up visit. You do not need to wear the binder when showering or sleeping. Call Doctor for: Worsening redness or drainage from incision(s) lasting longer than 5 days after your surgery Any foul-smelling drainage from the incision Pain not controlled by pain medications Persistent nausea or vomiting Any fevers greater than 101.3 F For questions or concerns during business hours please call the Surgery Clinic at [phone] before 5 PM on weekdays. For questions after hours and on weekends please call the hospital engine lathe set up operator tool at [phone] and ask for the General Surgery resident supply controller. They may not be familiar with your case so be prepared to identify yourself and the procedure you had done. Pain Management Use heat or ice packs to your incisions. Take Tylenol 1000mg (two extra strength tablets) up to every 6 hours. Do NOT take more than 4000mg every day, AND Take ibuprofen 200-600mg every 6 hours with some food. Avoid taking ibuprofen on an empty stomach or for longer than 2 weeks. For pain not covered by Tylenol and ibuprofen, take the prescription narcotic medicine: 5 mg every 4-6 hours Take the medication exactly as it is prescribed and make sure to read all instructions that come with the medication. Over the next couple of days you should be requiring less of this medication to control your pain, so that eventually you will not need any at all. You do not have to take all of the medication that was prescribed, if you have leftover pain medication this can be disposed of at a pharmacy or at your next follow up visit in the surgery clinic. Taking more than the prescribed amount of medication or using with alcohol or other drugs can causeyou to stop breathing resulting in coma, brain damage, or . Opioids can slow reaction time, cause drowsiness, or cloud judgement. Do not drive for 8 hours after any dose of opioid pain medication if one was prescribed for you. Using this drug may cause addiction. While addiction is more common in people with a personal or family history of addiction, it can occur in anyone. Opioids are at risk of being diverted by anyone with access to your home. Opioids should be stored in a safe and secure place, such as a locked cabinet or safe. Unused opioids should be disposed of appropriately. They may be returned to a take-back location, or mixed with a small amount of water and poured over an undesirable waste such as used coffee grounds or cat litter. Please note that most pain medications can cause constipation. You may use a stool softener such asMiralax or Colace to prevent this. Both of these medications can be bought over the counter. Pain Tapering Instructions Your pain should slowly and steadily diminish as you heal. If your pain level at the surgery site increases, you should call us. It is normal for increased pain if you are overly active or you decrease your pain medication, but a significant and unexplained increase in pain should be discussed with your surgeon. Pain medication is usually necessary for only 4-5 days postoperatively. It is important to have a plan for tapering off of pain medication. See below for tapering schedule sample. As your pain improves, start to wean oxycodone first by taking fewer tablets and taking it less often. Continue your Tylenol and ibuprofen as you wean the narcotic. Next, stop taking the ibuprofen. Wean the Tylenol last. Other Means for Pain Relief: Learn deep breathing exercises or meditation to help you relax. Reduce stress. Your body produces natural endorphins from exercise which can help reduce pain. Even walking is considered exercise. Talk with your provider/surgical team about what exercises are appropriate for youto perform. You may use a heating pad or apply ice to the painful area unless specifically discouraged by the surgical team. Find ways to distract yourself from the pain. Follow-up: Please call [phone] (clinic number for appointments) to confirm or change the date and time of your appointment. Future Appointments Date Time Provider Department Center 02/17/2023 2:45 PM Lashae Lorenzo MD [facility] documented in this encounter Medications at Time of Discharge Medication Sig Dispensed Refills Start Date End Date oxyCODONE (Roxicodone) 5 mg tablet Take 1 tablet by mouth every 6 hours as needed for Pain. 12 tablet 01/18/2023 varenicline (Chantix) 1 mg tablet Take 1 mg by mouth 2 times daily. carvediloL (Coreg) 6.25 mg tablet Take 6.25 mg by mouth 2 times daily (with meals). furosemide (Lasix) 20 mg Tablet Take 20 [...] (E.C.) Take 40 mg by mouth daily. documented as of this encounter Progress Notes * Ary Fonseca RN - 01/18/2023 12:53 PM EDT [facility] Short Stay Unit Discharge Note All relevant discharge milestones have been met by the patent. After Visit Summary and discharge teaching reviewed with the patient. IV access has been discontinued. All personal belongings have been returned to the patient/family upon their departure from the unit. Patient has been discharged to home The patient has been discharged without VNA services. Via medicaid ride. * Lady Briones RN - 01/18/2023 10:10 AM EDT RNCM triage paged to assist with transportation for this patient. [employer] Expediter added RS to assist with transport for patient. Nursing states that patient is ready for discharge now. [employer] Load Expediter called and spoke to patient. Patient states that they can get in and out of a private vehicle. Rs to arrange transport. Lady Briones RN, CM Pager-[phone]' * Leo Moreira MD - 01/17/2023 4:53 PM EDT POST-OPERATIVE ASSESSMENT Kallie Darling is a 62 y.o. female with a h/o tobacco abuse, COPD, and EtOH cirrhosis Day of Surgery s/p laparoscopic OSORIO epigastric hernia repair. S: Pt reports some discomfort at hernia site. Otherwise no complaints. Feeling hungry. O: BP 131/70 Pulse 70 Temp 36.2 ??C (97.2 ??F) (Temporal) Resp 11 Ht 165.1 cm (5' 5) Wt 109.4 kg (241 lb 3.2 oz) SpO2 94% BMI 40.14 kg/m?? UOP = 500 cc EXAM Gen: NAD, resting comfortably CV: regular rate Pulm: unlabored respirations on 3L NC Abd: soft, appropriately tender, non-distended, port sites c/d/i A/P: Recovering well post-op w/o apparent complication. Plan for observation overnight. Ok for diet. Will HLIV 6 hours post-op. Resume home meds as ordered. LAURA low-dose Tylenol and PRN oxycodone forpain. Leo Moreira MD [id number] 01/17/2023 4:53 PM documented in this encounter H&P Notes * Leo Moreira MD - 01/17/2023 10:14 AM EDT Pre-operative Interval H&P Planned Procedure: laparoscopic incisional hernia repair Kallie Darling is a 62 y.o. female with a symptomatic incisional hernia presenting for repair. She reports no interval change in her overall health since her last visit with Dr. Lorenzo on 12/05/22- please see clinic note for further details. VITALS: BP 130/78 Pulse 71 Temp 36.7 ??C (98.1 ??F) (Temporal) Resp 20 Ht 165.1 cm (5' 5) Wt 109.4 kg (241 lb 3.2 oz) SpO2 97% BMI 40.14 kg/m?? EXAM: Gen: NAD CV: regular rate Pulm: unlabored respirations on RA Abd: tender upper midline bulge Risks of the procedure were reviewed extensively with the patient, including infection, bleeding/hematoma, injury to underlying structures including bowel, as well as risks related to underlying liver disease including acute liver failure and . She understands these potential risks and wishes to proceed. All questions answered. Consent signed. Proceed with planned procedure. Leo Moreira MD [id number] 01/17/2023 10:55 AM documented in this encounter Nursing Notes * Deborah Quinones RN - 01/17/2023 5:59 PM EDT 1400: Assumed care of pt. Monitors on, alarms active and audible. 1800: Report to BRY Keene documented in this encounter Miscellaneous Notes * Op Note - Lashae Lorenzo MD - 01/17/2023 12:03 PM EDT [facility] Operative Note Patient Name: Kallie Darling : [id number] MR#: [id number] Case Date: 01/17/2023 Surgeon: Surgeon(s) and Role: * Lashae Lorenzo MD - Primary * Leo Moreira MD - Fellow - Assisting Preoperative diagnosis: Incarcerated Ventral hernia Postoperative diagnosis: Incarcerated Ventral hernia Procedure(s) (LRB): LAPAROSCOPIC REPAIR ANT. ABDOMINAL HERNIA(S) (IE, EPIGASTRIC, INCISIONAL, VENTRAL, UMBILICAL, SPIGELIAN), INITIAL, W-WO MESH; LESS THAN 3 CM, INCARCERATED OR STRANGULATED (WRVU 8.46) (N/A) MODIFIER MESH,COVIDIEN,PROGRIP,LAP (N/A) Findings: ~1.5cm epigastric hernia incarcerated with fat from falciform ligament. Repaired with a OSORIO approach. 5x5cm piece of progrip mesh placed in the preperitoneal space. Anesthesia: General Estimated Blood Loss: 17cc Specimens removed during surgery: None Drains: None Surgical Closure: Primary Closure - skin incision is completely closed without any wires, ronal, drains or other devices Disposition: awakened from anesthesia, extubated and taken to the recovery room in a stable condition, having suffered no apparent untoward event. Condition: doing well without problems (Please see the Surgical Encounter Summary for any Implant and Specimen details pertinent to this patient.) HPI/Surgical Indications: This is a 62 yo woman who presented to clinic with an epigastric hernia and pinpoint pain over the hernia. She has cirrhosis, COPD and obesity. When I initially saw her she was also smoking daily. She stopped smoking and we had several conversations about how she is high risk and would be at risk for liver failure and respiratory failure with surgery. She felt that this pain was so impactful on her daily living that she acknowledged the risks and elected to proceed. Procedure Description: The patient's identity and informed consent were verified in the pre-operative holding area. Kallie Darling was taken to the operating room and placed in Supine position. Bilateral sequential compression devices placed. Anesthesia was induced without complications; see anesthesia record for details. Subcutaneous lovenox was administered for DVT prophylaxis. She was prepped and draped in sterile fashion. Time out was performed and preoperative antibiotics given. A Veress needle was used to access the abdomen in the left upper quadrant. Initial pressures were high and so a 5mm Kii Fios port was used to access the abdomen and insufflate. General exploration ofthe abdomen was performed. There was a small puncture in the liver from the Veress needle. Two additional 5mm trocars were placed in the left lateral abdomen. A hook was used to achieve hemostasis along the liver. A combination of hook and ligasure were used to bring down the falciform ligament andcreate a preperitoneal flap. The hernia was encountered, the sac was entered and the contents of the hernia reduced. There was a large amount of preperitoneal and falciform fat stuck in the defect. Her re-cannulated umbilical vein was visualized and not injured throughout the procedure. Once all hernia content were reduced, the defect was closed with an 0 Ethibond figure of eight on a suture passer. The pocket was measured and a piece of Progrip mesh was selected for the repair and trimmed to 5x5cm. It was placed into the pocket against the abdominal wall. A secure strap absorbable tacker was used to tack the mesh for additional apposition and the flap was closed with the tacker as well. The 12mm port site was then closed with an 0 Vicryl on a suture passer. The abdomen was the desufflated. All incision sites were closed using 4- 0 Monocryl and dressed with dermabond. Local anesthetic was injected at all incision sites. At the end of the procedure, all sponge, instrument and needle counts were reported as correct and verified x2. The patient tolerated the procedure well. Surgical Infection Prevention Bundle Used? N/A documented in this encounter Plan of Treatment Upcoming Encounters Date Type Department Care Team (Late st Contact Info) Description 02/27/2024 2:45 PM EST TH Visit (TeleHealth) [place] [address] Lashae Lorenzo MD [facility] [place] [address] documented as of this encounter Procedures Procedure Name Priority Date/Time Associated Diagnosis Comments POCT GLUCOSE Routine 01/18/2023 6:52 AM EDT HEMOGRAM Routine 01/18/2023 12:40 AM EDT DIFFERENTIAL, AUTOMATED Routine 01/18/2023 12:40 AM EDT CBC (WITH DIFF) Routine 01/18/2023 12:40 AM EDT BASIC METABOLIC PANEL Routine 01/18/2023 12:40 AM EDT POCT GLUCOSE Routine 01/17/2023 10:01 PM EDT POCT GLUCOSE Routine 01/17/2023 5:06 PM EDT MODIFIER MESH,COVIDIEN,PROGRIP, LAP 01/17/2023 11:31 AM EDT Ventral hernia Repair AA Hernia Initial < 3 Cm Incarcerated/Strangula sam ([id number]) 01/17/2023 11:31 AM EDT Ventral hernia POCT GLUCOSE Routine 01/17/2023 10:48 AM EDT HEMOGRAM Routine 01/17/2023 10:04 AM EDT DIFFERENTIAL, AUTOMATED Routine 01/17/2023 10:04 AM EDT PROTHROMBIN TIME Routine 01/17/2023 10:0 4 AM EDT COMPREHENSIVE METABOLIC PANEL Routine 01/17/2023 10:04 AM EDT IMPLANTABLE DEVICES SCAN 01/17/2023 12:00 AM EDT documented in this encounter Results * POCT Glucose (01/18/2023 6:52 AM EDT) Glucose, POC 149 65 - 199 mg/dL [facility] Comment: Supplemental ranges: <140 mg/dL before meals <180 mg/dL all other times of the day Blood 01/18/2023 6:52 AM EDT 01/18/2023 6:52 AM EDT Lashae Lorenzo MD POINT [place] [address] * Differential, Automated (01/18/2023 12:40 AM EDT) Neutrophil % 60.6 % [facility] Neutrophil Absolute 2.05 1.70 - 6.10 x10(3)/[facility] Lymph % 27.8 % [facility] Lymphocytes Abs 0.9 0.9 - 3.2 x10(3)/[facility] Monocyte % 8.0 % [facility] Monocyte Abs 0.3 0.3 - 0.9 x10(3)/[facility] Eos % 2.7 % [facility] Eosinophils Abs 0.1 0.0 - 0.4 x10(3)/[facility] Basophil % 0.3 % [facility] Baso Absolute 0.0 0.0 - 0.1 x10(3)/[facility] Immature Gran % 0.60 % [facility] Comment: Immature granulocytes(IG's)percentage and absolute count will include metamyelocytes, myelocytes, and promyelocytes. Blood smears from CBCs yielding IG's will be scanned manually for concordance. If this scan disagrees with the automated IG or if promyelocytes are noted, a manual differential will be performed. Immature Gran Absolute 0.02 0.00 - 0.04 x10(3)/[facility] Blood 01/18/2023 12:4 0 AM EDT 01/18/2023 12:47 AM EDT Narrative Resulting Agency Comment Spec In Lab Leo Moreira MD [place] [address] * (ABNORMAL) Hemogram (01/18/2023 12:40 AM EDT) White Blood Cell 3.4(L) 4.0 - 9.5 x10(3)/mc L [facility] Red Blood Cell 3.47(L) 4.00 - 5.21 x10(6)/mc L [facility] Hemoglobin 9.4(L) 11.7 - 15.5 g/dL [facility] Hematocrit 30.4(L) 35.7 - 45.8 % [facility] Mean Cell Volume 87.6 82.6 - 94.4 fL [facility] Mean Cell Hemoglobin 27.1 27.1 - 32.0 pg [facility] Mean Cell Hemoglobin Concentration 30.9(L) 31.7 - 35.0 g/dL [facility] Platelet 85(L) 145 - 357 x10(3)/mc L [facility] RDW Standard Deviation 51.1(H) 37.0 - 46.0 fL [facility] RDW coefficient of variation 16.0(H) 11.5 - 14.1 % [facility] Mean Platelet Volume 10.2 7.6 - 12.9 fL [facility] NRBC% auto 0.0 % [facility] NRBC Absolute 0.000 0.000 - 0.000 x10(3)/mc L [facility] Blood 01/18/2023 12:4 0 AM EDT 01/18/2023 12:47 AM EDT Narrative Resulting Agency Comment Spec In Lab Leo Moreira MD HEMATOLOGY ORDERABLE S [facility] [place] [address] * (ABNORMAL) Basic Metabolic Panel (non-fasting) (01/18/2023 12:40 AM EDT) Glucose 118 65 - 199 mg/dL [facility] Comment:Diabetes: >=200 mg/d L plus symptoms Blood Urea Nitrogen 8 8 - 18 mg/dL [facility] Creatinine 0.61(L) 0.70 - 1.20 mg/dL [facility] Sodium 140 135 - 145 mmol/L [facility] Potassium 3.9 3.5 - 5.0 mmol/L [facility] Comment: Please note: ??Patients with WBC >100,000 may have falsely elevated Potassium levels. ??For accurate Potassium quantification in these patients send serum separator tube (gold top) for subsequent determinations. ??Contact the Clinical Chemistry Laboratory if there are any questions. Chloride 102 98 - 107 mmol/L [facility] Carbon Dioxide 26 22 - 31 mmol/L [facility] Anion Gap 12 5 - 15 mmol/L [facility] Calcium 8.9 8.5 - 10.5 mg/dL [facility] Est Glomerular Filtration Rate 101 >=60 mL/min/1. 73 m?? [facility] Comment: This patient's estimated GFR was calculated using the 2020 CKD-EPI equation. The estimated GFR can vary from the measured GFR by up to 30% in the absence of rapidly changing kidney function. Assessment of the estimated GFR is not appropriate when creatinine concentrations are rapidly changing. For clinical situations in which a more precise estimate of GFR is necessary, consider alternative methods of GFR estimation such as a 24-hour urine creatinine clearance. Assignment of CKD stage 1-5 for patients with an eGFR near the transition point between stages may be based on clinical assessment of muscle mass and symptoms in addition to eGFR. Blood 01/18/2023 12:4 0 AM EDT 01/18/2023 12:47 AM EDT Narrative Resulting Agency Comment Spec In Lab Leo Moreira MD CHEMISTRY ORDERABLES Performing Organization Address City/[facility]/ZIP Co de Phone Number [facility] [place] [address] * POCT Glucose (01/17/2023 10:01 PM EDT) Glucose, POC 149 65 - 199 mg/dL [facility] Comment: Supplemental ranges: <140 mg/dL before meals <180 mg/dL all other times of the day Blood 01/17/2023 10:0 1 PM EDT 01/17/2023 10:01 PM EDT Lashae Lorenzo MD POINT OF CARE TEST O RDERABLES [facility] [place] [address] * POCT Glucose (01/17/2023 5:06 PM EDT) Glucose, POC 158 65 - 199 mg/dL [facility] Comment: Supplemental ranges: <140 mg/dL before meals <180 mg/dL all other times of the day Blood 01/17/2023 5:06 PM EDT 01/17/2023 5:06 PM EDT Lashae Lorenzo MD POINT OF CARE TEST O RDERABLES Performing Organization Address City/[facility]/ZIP Co de Phone Number [facility] [place] [address] * POCT Glucose (01/17/2023 10:48 AM EDT) Glucose, POC 110 65 - 199 mg/dL [facility] Comment: Supplemental ranges: <140 mg/dL before meals <180 mg/dL all other times of the day Blood 01/17/2023 10:4 8 AM EDT 01/17/2023 10:48 AM EDT Lashae Lorenzo MD POINT OF CARE TEST O BEVERAOSWALDO Performing Organization Address City/[facility] Co de Phone Number [facility] [place] [address] * Differential, Automated (01/17/2023 10:04 AM EDT) Neutrophil % 57.3 % [facility] Neutrophil Absolute 2.11 1.70 - 6.10 x10(3)/[facility] Lymph % 31.8 % [facility] Lymphocytes Abs 1.2 0.9 - 3.2 x10(3)/[facility] Monocyte % 7.6 % [facility] Monocyte Abs 0.3 0.3 - 0.9 x10(3)/[facility] Eos % 2.7 % [facility] Eosinophils Abs 0.1 0.0 - 0.4 x10(3)/[facility] Basophil % 0.3 % [facility] Baso Absolute 0.0 0.0 - 0.1 x10(3)/[facility] Immature Gran % 0.30 % [facility] Comment: Immature granulocytes(IG's)percentage and absolute count will include metamyelocytes, myelocytes, and promyelocytes. Blood smears from CBCs yielding IG's will be scanned manually for concordance. If this scan disagrees with the automated IG or if promyelocytes are noted, a manual differential will be performed. Immature Gran Absolute 0.01 0.00 - 0.04 x10(3)/mcL [facility] Blood Venous Draw / Unknown 01/17/2023 10:04 AM EDT 01/17/2023 10:14 AM EDT Narrative Resulting Agency Comment Spec In Lab Katelynn Galvez [employer] HEMATOLOGY ORDERAB LES [facility] [place] [address] * (ABNORMAL) Hemogram (01/17/2023 10:04 AM EDT) White Blood Cell 3.7(L) 4.0 - 9.5 x10(3)/[facility] Red Blood Cell 3.76(L) 4.00 - 5.21 x10(6)/[facility] Hemoglobin 10.1(L) 11.7 - 15.5 g/dL [facility] Hematocrit 32.5(L) 35.7 - 45.8 % [facility] Mean Cell Volume 86.4 82.6 - 94.4 fL [facility] Mean Cell Hemoglobin 26.9(L) 27.1 - 32.0 pg [facility] Mean Cell Hemoglobin Concentration 31.1(L) 31.7 - 35.0 g/dL [facility] Platelet 89(L) 145 - 357 x10(3)/mc [facility] RDW Standard Deviation 51.1(H) 37.0 - 46.0 fL [facility] RDW coefficient of variation 16.2(H) 11.5 - 14.1 % [facility] Mean Platelet Volume 9.6 7.6 - 12.9 fL [facility] NRBC% auto 0.0 % [facility] NRBC Absolute 0.000 0.000 - 0.000 x10(3)/ L [facility] Blood Venous Draw / Unknown 01/17/2023 10:04 AM EDT 01/17/2023 10:14 AM EDT Narrative Resulting Agency Comment Spec In Lab Katelynn Galvez APRN HEMATOLOGY ORDERAB LES [facility] [place] [address] * (ABNORMAL) Comprehensive metabolic panel (non-fasting) (01/17/2023 10:04 AM EDT) Glucose 108 65 - 199 mg/dL [facility] Comment:Diabetes: >=200 mg/d L plus symptoms Blood Urea Nitrogen 10 8 - 18 mg/dL [facility] Creatinine 0.79 0.70 - 1.20 mg/dL [facility] Sodium 139 135 - 145 mmol/L [facility] Potassium 3.9 3.5 - 5.0 mmol/L [facility] Comment: Please note: ??Patients with WBC >100,000 may have falsely elevated Potassium levels. ??For accurate Potassium quantification in these patients send serum separator tube (gold top) for subsequent determinations. ??Contact the Clinical Chemistry Laboratory if there are any questions. Chloride 101 98 - 107 mmol/L [facility] Carbon Dioxide 25 22 - 31 mmol/L [facility] Anion Gap 13 5 - 15 mmol/L [facility] Calcium 9.4 8.5 - 10.5 mg/dL [facility] Protein, Total 6.9 6.1 - 8.0 g/dL [facility] Albumin 4.5 3.2 - 5.2 g/dL [facility] Aspartate Aminotransferase 46(H) 0 - 30 unit/L [facility] Alanine Aminotransferase 21 0 - 30 unit/L [facility] Alkaline Phosphatase 168(H) 35 - 105 unit/L [facility] Bilirubin, Total 0.5 0.2 - 1.3 mg/dL [facility] Est Glomerular Filtration Rate 85 >=60 mL/min/1. 73 m?? [facility] Comment: This patient's estimated GFR was calculated using the 2020 CKD-EPI equation. The estimated GFR can vary from the measured GFR by up to 30% in the absence of rapidly changing kidney function. Assessment of the estimated GFR is not appropriate when creatinine concentrations are rapidly changing. For clinical situations in which a more precise estimate of GFR is necessary, consider alternative methods of GFR estimation such as a 24-hour urine creatinine clearance. Assignment of CKD stage 1-5 for patients with an eGFR near the transition point between stages may be based on clinical assessment of muscle mass and symptoms in addition to eGFR. Blood Venous Draw / Unknown 01/17/2023 10:04 AM EDT 01/17/2023 10:14 AM EDT Narrative Resulting Agency Comment Spec In Lab Katelynn Galvez APRN CHEMISTRY ORDERABL ES Performing Organization Address [facility] de Phone Number [facility] [place] [address] * (ABNORMAL) Prothrombin Time (01/17/2023 10:04 AM EDT) Prothrombin Time 14.0(H) 9.4 - 12.5 sec [facility] International Normalization Ratio 1.2 [facility] Comment: An INR <2.0 indicates adequate procoagulant activity for hemostasis in most patients without underlying bleeding disorders, though the INR may not adequately reflect hemostatic capacity in patients with liver disease and synthetic impairment. The recommended target INR range for therapeutic anticoagulation is 2.0 ? 3.0 for most applications, though lower and higher ranges may be appropriate depending on clinical circumstances. Blood Venous Draw / Unknown 01/17/2023 10:04 AM EDT 01/17/2023 10:14 AM EDT Narrative Resulting Agency Comment Spec In Lab Katelynn Galvez APRN HEMATOLOGY ORDERAB LES Performing Organization Address [facility] Co de Phone Number [facility] [place] [address] * SCAN DOC: IMPLANTABLE DEVICES (01/17/2023 12:00 AM EDT) Narrative 01/17/2023 12:00 AM EDT Ordered by an unspecified provider. Scanning Provider MEDIA MGR SCAN EXT O RDR/RSLT documented in this encounter Visit Diagnoses Not on filedocumented in this encounter Admitting Diagnoses Diagnosis Ventral incisional hernia documented in this encounter Administered Medications Inactive Administered Medications - up to 3 most recent administrations Medication Order MAR Action Action Date Dose Rate Site acetaminophen (Tylenol) tablet 650 mg 650 mg, Oral, EVERY 6 HOURS SCHEDULED, First dose on Fri01/17/23 at 1445, Until Discontinued, Maximum dose of acetaminophen is 4,000 mg from all sources in 24 hours. When ordered for pain, acetaminophen should be given even when other ordered pain medications are indicated. , Routine Given 01/18/2023 8:43 AM EDT 650 mg Given 01/18/2023 3:09 AM EDT 650 mg Given 01/17/2023 9:01 PM EDT 650 mg acetaminophen (Tylenol) tablet 975 mg 975 mg, Oral, ONCE, 1 dose, On Fri01/17/23 at 1100, Maximum dose of acetaminophen is 4,000 mg from all sources in 24 hours. When ordered for pain, acetaminophen should be given even when other ordered pain medications are indicated. , Day of Surgery (Day of Procedure), Routine Given 01/17/2023 11:01 AM EDT 975 mg BUpivacaine (pf) (Marcaine) (2.5 mg/mL) 0.25% injection PRN, Starting on Fri01/17/23 at 1255, Until 01/18/23 at 1459, Intra-Operative (Intra-Procedure), Routine Given 01/17/2023 12:55 PM EDT 38 mLs 19- Surgical Site carvediloL (Coreg) tablet 6.25 mg 6.25 mg, Oral, 2 TIMES DAILY WITH MEALS, First dose on 01/18/23 at 0800, Until Discontinued, Routine Given 01/18/2023 8:43 AM EDT 6.25 mg dextrose 10% infusion 250 mL, at 1,000 mL/hr, Intravenous, EVERY 30 MIN PRN, Starting on Fri01/17/23 at 1837, Until 01/18/23 at 1459, For BG 50-70 mg/dL: Oral treatment preferred: If able to drink, give 120 mL Juice or Regular (not diet) soda OR If NPO, give 15 gram glucose 40% oral gel massaged into buccal mucosa OR if unconscious or uncooperative, give 25 gram (250 mL) Dextrose 10% IV over 15 minutes per protocol OR, if no IV access, 1 mg Glucagon IM. For BG less than 50 mg/dL: Oral treatment preferred: If able to drink, give 240 mL Juice or Regular (not diet) soda OR If NPO, give 30 gram glucose 40% oral gel massaged in buccal mucosa OR if unconscious or uncooperative, give 25 gram (250 mL) Dextrose 10% IV over 15 minutes per protocol OR, if no IV access, 1 mg Glucagon IM. Recheck BG in 30 minutes. May repeat juice/soda, gel, dextrose or glucagon once per episode. For persistent hypoglycemia, consider longer-acting treatment for the duration of the active insulin. docusate sodium (Colace) capsule 100 mg 100 mg, Oral, 2 TIMES DAILY, First dose on 01/18/23 at 0900, Until Discontinued, Routine Given 01/18/2023 8:43 AM EDT 100 mg enoxaparin (Lovenox) (40 mg/0.4 mL) subcutaneous injection 40 mg 40 mg, Subcutaneous, EVERY 24 HOURS SCHEDULED (Daily), First dose on Fri01/18/23 at 0900, Until Discontinued, Routine Given 01/18/2023 8:44 AM EDT 40 mg escitalopram (Lexapro) tablet 10 mg 10 mg, Oral, NIGHTLY, First dose on Fri01/17/23 at 2100, Until Discontinued, Routine Given 01/17/2023 9:02 PM EDT 10 mg escitalopram (Lexapro) tablet 20 mg 20 mg, Oral, DAILY, First dose on Fri01/18/23 at 0900, Until Discontinued, Routine Given 01/18/2023 8:43 AM EDT 20 mg famotidine (Pepcid) tablet 20 mg 20 mg, Oral, 2 TIMES DAILY, First dose on Fri01/17/23 at 2100, Until Discontinued, Routine Given 01/18/2023 8:43 AM EDT 20 mg Given 01/17/2023 9:01 PM EDT 20 mg furosemide (Lasix) tablet 20 mg 20 mg, Oral, DAILY, First dose on Fri01/18/23 at 0900, Until Discontinued, Routine Given 01/18/2023 8:43 AM EDT 20 mg gabapentin (Neurontin) capsule 800 mg 800 mg, Oral, 3 TIMES DAILY, First dose on Fri01/17/23 at 2100, Until Discontinued Given 01/18/2023 8:43 AM EDT 800 mg Given 01/17/2023 9:03 PM EDT 800 mg glucagon (Glucagen) (1 mg/mL) injection solution 1 mg 1 mg, Intramuscular, EVERY 30 MIN PRN, Starting on Fri01/17/23 at 1837, Until 01/18/23 at 1459, Low blood sugar, For BG 50-70 mg/dL: Oral treatment preferred: If able to drink, give 120 mL Juice or Regular (not diet) soda OR If NPO, give 15 gram glucose 40% oral gel massaged into buccal mucosa OR if unconscious or uncooperative, give 25 gram (250 mL) Dextrose 10% IV over 15 minutes per protocol OR, if no IV access, 1 mg Glucagon IM. For BG less than 50 mg/dL: Oral treatment preferred: If able to drink, give 240 mL Juice or Regular (not diet) soda OR If NPO, give 30 gram glucose 40% oral gel massaged in buccal mucosa OR if unconscious or uncooperative, give 25 gram (250 mL) Dextrose 10% IV over 15 minutes per protocol OR, if no IV access, 1 mg Glucagon IM. Recheck BG in 30 minutes. May repeat juice/soda, gel, dextrose or glucagon once per episode. For persistent hypoglycemia, consider longer-acting treatment for the duration of the active insulin., Routine glucose (Glutose) 40% oral geL 15-30 g of glucose, Buccal, EVERY 30 MIN PRN, Starting on Fri01/17/23 at 1837, Until 01/18/23 at 1459, Low blood sugar, For BG 50-70 mg/dL: Oral treatment preferred: If able to drink, give 120 mL Juice or Regular (not diet) soda OR If NPO, give 15 gram glucose 40% oral gel massaged into buccal mucosa OR if unconscious or uncooperative, give 25 gram (250 mL) Dextrose 10% IV over 15 minutes per protocol OR, if no IV access, 1 mg Glucagon IM. For BG less than 50 mg/dL: Oral treatment preferred: If able to drink, give 240 mL Juice or Regular (not diet) soda OR If NPO, give 30 gram glucose 40% oral gel massaged in buccal mucosa OR if unconscious or uncooperative, give 25 gram (250 mL) Dextrose 10% IV over 15 minutes per protocol OR, if no IV access, 1 mg Glucagon IM. Recheck BG in 30 minutes. May repeat juice/soda, gel, dextrose or glucagon once per episode. For persistent hypoglycemia, consider longer-acting treatment for the duration of the active insulin. 1 tube of Glutose-15 contains 15 grams of glucose (net weight of tube = 37.5 grams.), Routine insulin lispro (HumaLOG;Admelog) (100 unit/mL) subcutaneous injection vial 1-4 Units 1-4 Units, Subcutaneous, 3 TIMES DAILY BEFORE MEALS, First dose on Fri01/17/23 at 1730, Until Discontinued, CORRECTION BOLUS [1-4 Units] Sensitive Sliding Scale (BG in mg/dL): Correction factor 40 (1 unit of insulin is expected to drop the glucose 40 mg/dL) BG 160 - 200 Give 1 unit BG 201 - 240 Give 2 units BG 241 - 280 Give 3 units BG greater than 280, give 4 units and recheck BG in 2 hours. - If recheck BG is LESS than 280, give no insulin and resume schedule - If recheck BG is GREATER than 280, give 4 units and repeat BG in 2 hours (no more than 3 times) & call for new insulin orders. DO NOT hold if NPO, unless specifically directed to do so by written order. Per Blood Glucose Monitoring Policy, re-check a BG of > 240 mg/dL in 2 hours., Routine lactated ringers infusion 1,000 mL, at 100 mL/hr, Intravenous, CONTINUOUS, Starting on Fri01/17/23 at 1445, Until 01/18/23 at 1459, Recovery (Recovery-Hospital Unit) New Bag 01/17/2023 2:47 PM EDT 1,000 mLs 100 mL/hr lactated ringers infusion 1,000 mL, at 100 mL/hr, Intravenous, CONTINUOUS, Starting on Fri01/17/23 at 1930, Until 01/18/23 at 0129 New Bag 01/17/2023 7:53 PM EDT 1,000 mLs 100 mL/hr mirtazapine (Remeron) tablet 15 mg 15 mg, Oral, NIGHTLY, First dose on Fri01/17/23 at 2100, Until Discontinued, Routine Given 01/17/2023 9:01 PM EDT 15 mg ondansetron (pf) (Zofran) (2 mg/mL) injection 4 mg 4 mg, Intravenous, EVERY 8 HOURS PRN, Starting on Fri01/17/23 at 1837, Until 01/18/23 at 1459, Nausea, If multiple antiemetics are ordered, use ondansetron first, prochlorperazine second, and metoclopramide third. PO Preferred. If patient unable to take PO, may give IV if ordered. May repeat times one in 30 minutes if ineffective. Maximum daily dose = 24 mg/24 hours ondansetron (Zofran) tablet 4 mg 4 mg, Oral, EVERY 8 HOURS PRN, Starting on Fri01/17/23 at 1837, Until 01/18/23 at 1459, Nausea, Vomiting, If multiple antiemetics are ordered, use ondansetron first, prochlorperazine second, and metoclopramide third. PO Preferred. If patient unable to take PO, may give IV if ordered. May repeat times one in 45 minutes if ineffective. Maximum daily dose = 24 mg/24 hours, Routine oxyCODONE (Roxicodone) tablet 5 mg 5 mg, Oral, EVERY 4 HOURS PRN, Starting on Fri01/17/23 at 1428, Until 01/18/23 at 1459, Pain, Routine Given 01/18/2023 8:43 AM EDT 5 mg Given 01/17/2023 7:45 PM EDT 5 mg Given 01/17/2023 2:46 PM EDT 5 mg pantoprazole EC (Protonix) tablet 40 mg 40 mg, Oral, DAILY, First dose on 01/18/23 at 0900, Until Discontinued, DO NOT CRUSH OR OPEN, Routine Given 01/18/2023 8:43 AM EDT 40 mg senna-docusate (Pericolace) 8.6-50 mg per tablet 2 tablet 2 tablet, Oral, 2 TIMES DAILY, First dose on Fri01/17/23 at 2100, Until Discontinued, Hold for loose stool. , Routine Given 01/18/2023 8:43 AM EDT 2 tablets Given 01/17/2023 9:02 PM EDT 2 tablets sodium chloride 0.9 % (flush) (BD PosiFlush Normal Saline 0.9) flush 5 mL 5 mL, Intravenous, 2 TIMES DAILY, First dose on Fri01/17/23 at 2100, Until Discontinued, Recovery (Recovery-Hospital Unit), Routine Given 01/18/2023 8:44 AM EDT 5 mLs Given 01/17/2023 9:00 PM EDT 5 mLs traZODone (Desyrel) tablet 50 mg 50 mg, Oral, NIGHTLY, First dose on Fri01/17/23 at 2100, Until Discontinued, Routine Given 01/17/2023 9:03 PM EDT 50 mg varenicline (Chantix) tablet 1 mg 1 mg, Oral, 2 TIMES DAILY, First dose on Fri01/17/23 at 2100, Until Discontinued, Routine Given 01/18/2023 8:44 AM EDT 1 mg Given 01/17/2023 9:03 PM EDT 1 mg zonisamide (Zonegran) capsule 100 mg 100 mg, Oral, NIGHTLY, First dose on Fri01/17/23 at 2100, Until Discontinued, DO NOT SPLIT, CRUSH OR OPEN, Routine Given 01/17/2023 9:02 PM EDT 100 mg documented in this encounter Active and Recently Administered Medications Times are shown in EDT. Scheduled Medication Order 01/16/2023 01/17/2023 01/18/2023 acetaminophen (Tylenol) tablet 650 mg 650 mg, Oral, EVERY 6 HOURS SCHEDULED, First dose on Fri01/17/23 at 1445, Until Discontinued, Maximum dose of acetaminophen is 4,000 mg from all sources in 24 hours. When ordered for pain, acetaminophen should be given even when other ordered pain medications are indicated. , Routine 1446 (Given - Provider: Deborah Quinones RN)2101 (Given - Provider: Leatha Macias LPN) 0309 (Given - Provider: Leatha Macias LPN)0843 (Given - Provider: Ary Fonseca RN)1200 (Due) acetaminophen (Tylenol) tablet 975 mg (COMPLETED) 975 mg, Oral, ONCE, 1 dose, On Fri01/17/23 at 1100, Maximum dose of acetaminophen is 4,000 mg from all sources in 24 hours. When ordered for pain, acetaminophen should be given even when other ordered pain medications are indicated. , Day of Surgery (Day of Procedure), Routine 1101 (Given - Provider: Fadia Rain RN) budesonide-formoteroL (Symbicort) 160-4.5 mcg/actuation inhaler 2 Inhalation 2 .Inhalation , Inhalation, 2 TIMES DAILY, First dose on Fri01/17/23 at 2100, Until Discontinued, Routine 2100 (Not Given - Provider: Leatha Macias LPN - Reason: Patient/family refused) 0900 (Not Given - Provider: Ary Fonseca RN - Reason: Medication not available) carvediloL (Coreg) tablet 6.25 mg 6.25 mg, Oral, 2 TIMES DAILY WITH MEALS, First dose on 01/18/23 at 0800, Until Discontinued, Routine 08 (Given - Provid er: Ary Fonseca RN) ceFAZolin (Ancef) 2 g vial attach to sodium chloride 0.9% 100 mL Mini-Bag Plus (COMPLETED) 2 g, Intravenous, EVERY 4 HOURS, 1 dose, First dose on Fri01/17/23 at 1100, Administer over 30 Minutes, Intra-Operative (Intra-Procedure), Indication for (Active or Suspected): Prophylaxis 1152 (New Bag - Provider: Cherry Valadez CRNA) docusate sodium (Colace) capsule 100 mg 100 mg, Oral, 2 TIMES DAILY, First dose on Fri01/18/23 at 0900, Until Discontinued, Routine 0843 (Given - Provid er: Ary Fonseca RN) enoxaparin (Lovenox) (40 mg/0.4 mL) subcutaneous injection 40 mg (COMPLETED) 40 mg, Subcutaneous, ONCE, 1 dose, On Fri01/17/23 at 1100, Day of Surgery (Day of Procedure), Routine 1207 (Given - Provider: Clint Sullivan CRNA) enoxaparin (Lovenox) (40 mg/0.4 mL) subcutaneous injection 40 mg 40 mg, Subcutaneous, EVERY 24 HOURS SCHEDULED (Daily), First dose on Fri01/18/23 at 0900, Until Discontinued, Routine 08 (Given - Provid er: Ary Fonseca RN) escitalopram (Lexapro) tablet 10 mg 10 mg, Oral, NIGHTLY, First dose on Fri01/17/23 at 2100, Until Discontinued, Routine 2101 (Given - Provider: Leatha Macias LPN) escitalopram (Lexapro) tablet 20 mg 20 mg, Oral, DAILY, First dose on Fri01/18/23 at 0900, Until Discontinued, Routine 0843 (Given - Provid er: Ary Fonseca RN) famotidine (Pepcid) tablet 20 mg 20 mg, Oral, 2 TIMES DAILY, First dose on Fri01/17/23 at 2100, Until Discontinued, Routine 2100 (Given - Provider: Leatha Macias LPN) 0843 (Given - Provider: Ary Fonseca RN) furosemide (Lasix) tablet 20 mg 20 mg, Oral, DAILY, First dose on Fri01/18/23 at 0900, Until Discontinued, Routine 08 (Given - Provid er: Ary Fonseca RN) gabapentin (Neurontin) capsule 800 mg 800 mg, Oral, 3 TIMES DAILY, First dose on Fri01/17/23 at 2100, Until Discontinued 2102 (Given - Provider: Leatha Macias LPN) 0843 (Given - Provider: Ary Fonseca RN) insulin lispro (HumaLOG;Admelog) (100 unit/mL) subcutaneous injection vial 1-4 Units(Linked Group 1) 1-4 Units, Subcutaneous, 3 TIMES DAILY BEFORE MEALS, First dose on Fri01/17/23 at 1730, Until Discontinued, CORRECTION BOLUS [1-4 Units] Sensitive Sliding Scale (BG in mg/dL): Correction factor 40 (1 unit of insulin is expected to drop the glucose 40 mg/dL) BG 160 - 200 Give 1 unit BG 201 - 240 Give 2 units BG 241 - 280 Give 3 units BG greater than 280, give 4 units and recheck BG in 2 hours. - If recheck BG is LESS than 280, give no insulin and resume schedule - If recheck BG is GREATER than 280, give 4 units and repeat BG in 2 hours (no more than 3 times) & call for new insulin orders. DO NOT hold if NPO, unless specifically directed to do so by written order. Per Blood Glucose Monitoring Policy, re-check a BG of > 240 mg/dL in 2 hours., Routine 183 (Not Given - Provider: Yecenia Blakely RN - Reason: Order parameters not met) 0730 (Not Given - Provider: Ary Fonseca RN - Reason: Order parameters not met - Comment: [phone] (Due) mirtazapine (Remeron) tablet 15 mg 15 mg, Oral, NIGHTLY, First dose on Fri01/17/23 at 2100, Until Discontinued, Routine 2100 (Given - Provider: Leatha Macias LPN) pantoprazole EC (Protonix) tablet 40 mg 40 mg, Oral, DAILY, First dose on Fri01/18/23 at 0900, Until Discontinued, DO NOT CRUSH OR OPEN, Routine 08 (Given - Provid er: Ary Fonseca RN) senna-docusate (Pericolace) 8.6-50 mg per tablet 2 tablet 2 tablet, Oral, 2 TIMES DAILY, First dose on Fri01/17/23 at 2100, Until Discontinued, Hold for loose stool. , Routine 2101 (Given - Provider: Leatha Macias LPN) 0843 (Given - Provider: Ary Fonseca RN) sodium chloride 0.9 % (flush) (BD PosiFlush Normal Saline 0.9) flush 5 mL 5 mL, Intravenous, 2 TIMES DAILY, First dose on Fri01/17/23 at 2100, Until Discontinued, Recovery (Recovery-Hospital Unit), Routine 2099 (Given - Provider: Leatha Macias LPN) 0844 (Given - Provider: Ary Fonseca RN) traZODone (Desyrel) tablet 50 mg 50 mg, Oral, NIGHTLY, First dose on Fri01/17/23 at 2100, Until Discontinued, Routine 2102 (Given - Provider: Leatha Macias LPN) varenicline (Chantix) tablet 1 mg 1 mg, Oral, 2 TIMES DAILY, First dose on Fri01/17/23 at 2100, Until Discontinued, Routine 2102 (Given - Provider: Leatha Macias LPN) 0844 (Given - Provider: Ary Fonseca RN) zonisamide (Zonegran) capsule 100 mg 100 mg, Oral, NIGHTLY, First dose on Fri01/17/23 at 2100, Until Discontinued, DO NOT SPLIT, CRUSH OR OPEN, Routine 2101 (Given - Provider: Leatha Macias LPN) Continuous Medication Order 01/16/2023 01/17/2023 01/18/2023 lactated ringers infusion 1,000 mL, at 100 mL/hr, Intravenous, CONTINUOUS, Starting on Fri01/17/23 at 1445, Until 01/18/23 at 1459, Recovery (Recovery-Hospital Unit) 1447 (New Bag - Provider: Deborah Quinones RN) 1459 (Due: Stopped) lactated ringers infusion 1,000 mL, at 100 mL/hr, Intravenous, CONTINUOUS, Starting on Fri01/17/23 at 1930, Until 01/18/23 at 0129 1953 (New Bag - Provider: Leatha Macias LPN) PRN Medication Order 01/16/2023 01/17/2023 01/18/2023 albuteroL (Proventil, Ventolin) (2.5 mg/3 mL) (0.083 %) nebulizer solution 2.5 mg 2.5 mg, Nebulization, EVERY 4 HOURS PRN, Starting on Fri01/17/23 at 1837, Until 01/18/23 at 1459, Wheezing, Routine BUpivacaine (pf) (Marcaine) (2.5 mg/mL) 0.25% injection (CANCELED) PRN, Starting on Fri01/17/23 at 1255, Until 01/18/23 at 1459, Intra-Operative (Intra-Procedure), Routine 1255 (Given - Provider: Lashae Lorenzo MD) dextrose 10% infusion(Linked Group 2) 250 mL, at 1,000 mL/hr, Intravenous, EVERY 30 MIN PRN, Starting on Fri01/17/23 at 1837, Until 01/18/23 at 1459, For BG 50-70 mg/dL: Oral treatment preferred: If able to drink, give 120 mL Juice or Regular (not diet) soda OR If NPO, give 15 gram glucose 40% oral gel massaged into buccal mucosa OR if unconscious or uncooperative, give 25 gram (250 mL) Dextrose 10% IV over 15 minutes per protocol OR, if no IV access, 1 mg Glucagon IM. For BG less than 50 mg/dL: Oral treatment preferred: If able to drink, give 240 mL Juice or Regular (not diet) soda OR If NPO, give 30 gram glucose 40% oral gel massaged in buccal mucosa OR if unconscious or uncooperative, give 25 gram (250 mL) Dextrose 10% IV over 15 minutes per protocol OR, if no IV access, 1 mg Glucagon IM. Recheck BG in 30 minutes. May repeat juice/soda, gel, dextrose or glucagon once per episode. For persistent hypoglycemia, consider longer-acting treatment for the duration of the active insulin. glucagon (Glucagen) (1 mg/mL) injection solution 1 mg(Linked Group 2) 1 mg, Intramuscular, EVERY 30 MIN PRN, Starting on Fri01/17/23 at 1837, Until 01/18/23 at 1459, Low blood sugar, For BG 50-70 mg/dL: Oral treatment preferred: If able to drink, give 120 mL Juice or Regular (not diet) soda OR If NPO, give 15 gram glucose 40% oral gel massaged into buccal mucosa OR if unconscious or uncooperative, give 25 gram (250 mL) Dextrose 10% IV over 15 minutes per protocol OR, if no IV access, 1 mg Glucagon IM. For BG less than 50 mg/dL: Oral treatment preferred: If able to drink, give 240 mL Juice or Regular (not diet) soda OR If NPO, give 30 gram glucose 40% oral gel massaged in buccal mucosa OR if unconscious or uncooperative, give 25 gram (250 mL) Dextrose 10% IV over 15 minutes per protocol OR, if no IV access, 1 mg Glucagon IM. Recheck BG in 30 minutes. May repeat juice/soda, gel, dextrose or glucagon once per episode. For persistent hypoglycemia, consider longer-acting treatment for the duration of the active insulin., Routine glucose (Glutose) 40% oral geL(Linked Group 2) 15-30 g of glucose, Buccal, EVERY 30 MIN PRN, Starting on Fri01/17/23 at 1837, Until 01/18/23 at 1459, Low blood sugar, For BG 50-70 mg/dL: Oral treatment preferred: If able to drink, give 120 mL Juice or Regular (not diet) soda OR If NPO, give 15 gram glucose 40% oral gel massaged into buccal mucosa OR if unconscious or uncooperative, give 25 gram (250 mL) Dextrose 10% IV over 15 minutes per protocol OR, if no IV access, 1 mg Glucagon IM. For BG less than 50 mg/dL: Oral treatment preferred: If able to drink, give 240 mL Juice or Regular (not diet) soda OR If NPO, give 30 gram glucose 40% oral gel massaged in buccal mucosa OR if unconscious or uncooperative, give 25 gram (250 mL) Dextrose 10% IV over 15 minutes per protocol OR, if no IV access, 1 mg Glucagon IM. Recheck BG in 30 minutes. May repeat juice/soda, gel, dextrose or glucagon once per episode. For persistent hypoglycemia, consider longer-acting treatment for the duration of the active insulin. 1 tube of Glutose-15 contains 15 grams of glucose (net weight of tube = 37.5 grams.), Routine lidocaine (Xylocaine) 1% (10 mg/mL) injection 3 mg 3 mg (0.3 mL), Subcutaneous, ONCE PRN, 1 dose, Starting on Fri01/17/23 at 1837, Until 01/18/23 at 1459, for discomfort with PIV insertion, Recovery (Recovery-Hospital Unit), Routine naloxone (Narcan) (0.4 mg/mL) injection 0.2 mg 0.2 mg, Intravenous, EVERY 1 MIN PRN, 10 doses, Starting on Fri01/17/23 at 1837, Until 01/18/23 at 1459, Opioid Reversal, If respiratory rate less than 6 OR the patient is unable to arouse OR SpO2 is declining, Give for respiratory rate of less than or equal to 6 and patient is heavily sedated or unarousable. May repeat every 60 seconds to increase respiratory rate. DO NOT exceed 2 mg total dose., Recovery (Recovery-Hospital Unit), Routine ondansetron (pf) (Zofran) (2 mg/mL) injection 4 mg(Linked Group 3) 4 mg, Intravenous, EVERY 8 HOURS PRN, Starting on Fri01/17/23 at 1837, Until 01/18/23 at 1459, Nausea, If multiple antiemetics are ordered, use ondansetron first, prochlorperazine second, and metoclopramide third. PO Preferred. If patient unable to take PO, may give IV if ordered. May repeat times one in 30 minutes if ineffective. Maximum daily dose = 24 mg/24 hours ondansetron (Zofran) tablet 4 mg(Linked Group 3) 4 mg, Oral, EVERY 8 HOURS PRN, Starting on Fri01/17/23 at 1837, Until 01/18/23 at 1459, Nausea, Vomiting, If multiple antiemetics are ordered, use ondansetron first, prochlorperazine second, and metoclopramide third. PO Preferred. If patient unable to take PO, may give IV if ordered. May repeat times one in 45 minutes if ineffective. Maximum daily dose = 24 mg/24 hours, Routine oxyCODONE (Roxicodone) tablet 5 mg 5 mg, Oral, EVERY 4 HOURS PRN, Starting on Fri01/17/23 at 1428, Until 01/18/23 at 1459, Pain, Routine 1446 (Given - Provider: Deborah Quinones, RN)1945 (Given - Provider: Leatha Macias LPN) 0843 (Given - Provider: Ary Fonseca RN) polyethylene glycoL (Miralax) packet 17 g 17 g, Oral, DAILY PRN, Starting on 01/18/23 at 0000, Until 01/18/23 at 1459, Constipation, Routine sodium chloride 0.9 % (flush) (BD PosiFlush Normal Saline 0.9) flush 5-20 mL 5-20 mL, Intravenous, EVERY 1 MIN PRN, Starting on Fri01/17/23 at 1837, Until 01/18/23 at 1459, flush, Flush pertains to all indwelling lines. Flush per protocol found in the job aid using the link provided on this medication record., Recovery (Recovery-Hospital Unit), Routine Linked Groups Order Group 1: POCT Fingerstick Glucose (CANCELED) Routine, 4 TIMES DAILY BEFORE MEALS & AT BEDTIME, First occurrence on Fri01/17/23 at 2200, Until Specified, Consider choosing FOUR TIMES A DAY BEFORE MEALS AND AT BEDTIME as frequency for: Patients who have good hypoglycemia awareness: -Patients who are eating meals during the day and sleeping at night -Patient who are otherwise stable And insulin lispro (HumaLOG;Admelog) (100 unit/mL) subcutaneous injection vial 1-4 UnitsJump to med 1-4 Units, Subcutaneous, 3 TIMES DAILY BEFORE MEALS, First dose on Fri01/17/23 at 1730, Until Discontinued, CORRECTION BOLUS [1-4 Units] Sensitive Sliding Scale (BG in mg/dL): Correction factor 40 (1 unit of insulin is expected to drop the glucose 40 mg/dL) BG 160 - 200 Give 1 unit BG 201 - 240 Give 2 units BG 241 - 280 Give 3 units BG greater than 280, give 4 units and recheck BG in 2 hours. - If recheck BG is LESS than 280, give no insulin and resume schedule - If recheck BG is GREATER than 280, give 4 units and repeat BG in 2 hours (no more than 3 times) & call for new insulin orders. DO NOT hold if NPO, unless specifically directed to do so by written order. Per Blood Glucose Monitoring Policy, re-check a BG of > 240 mg/dL in 2 hours., Routine Group 2: glucose (Glutose) 40% oral geLJump to med 15-30 g of glucose, Buccal, EVERY 30 MIN PRN, Starting on Fri01/17/23 at 1837, Until 01/18/23 at 1459, Low blood sugar, For BG 50-70 mg/dL: Oral treatment preferred: If able to drink, give 120 mL Juice or Regular (not diet) soda OR If NPO, give 15 gram glucose 40% oral gel massaged into buccal mucosa OR if unconscious or uncooperative, give 25 gram (250 mL) Dextrose 10% IV over 15 minutes per protocol OR, if no IV access, 1 mg Glucagon IM. For BG less than 50 mg/dL: Oral treatment preferred: If able to drink, give 240 mL Juice or Regular (not diet) soda OR If NPO, give 30 gram glucose 40% oral gel massaged in buccal mucosa OR if unconscious or uncooperative, give 25 gram (250 mL) Dextrose 10% IV over 15 minutes per protocol OR, if no IV access, 1 mg Glucagon IM. Recheck BG in 30 minutes. May repeat juice/soda, gel, dextrose or glucagon once per episode. For persistent hypoglycemia, consider longer-acting treatment for the duration of the active insulin. 1 tube of Glutose-15 contains 15 grams of glucose (net weight of tube = 37.5 grams.), Routine Or dextrose 10% infusionJump to med 250 mL, at 1,000 mL/hr, Intravenous, EVERY 30 MIN PRN, Starting on Fri01/17/23 at 1837, Until 01/18/23 at 1459, For BG 50-70 mg/dL: Oral treatment preferred: If able to drink, give 120 mL Juice or Regular (not diet) soda OR If NPO, give 15 gram glucose 40% oral gel massaged into buccal mucosa OR if unconscious or uncooperative, give 25 gram (250 mL) Dextrose 10% IV over 15 minutes per protocol OR, if no IV access, 1 mg Glucagon IM. For BG less than 50 mg/dL: Oral treatment preferred: If able to drink, give 240 mL Juice or Regular (not diet) soda OR If NPO, give 30 gram glucose 40% oral gel massaged in buccal mucosa OR if unconscious or uncooperative, give 25 gram (250 mL) Dextrose 10% IV over 15 minutes per protocol OR, if no IV access, 1 mg Glucagon IM. Recheck BG in 30 minutes. May repeat juice/soda, gel, dextrose or glucagon once per episode. For persistent hypoglycemia, consider longer-acting treatment for the duration of the active insulin. Or glucagon (Glucagen) (1 mg/mL) injection solution 1 mgJump to med 1 mg, Intramuscular, EVERY 30 MIN PRN, Starting on Fri01/17/23 at 1837, Until 01/18/23 at 1459, Low blood sugar, For BG 50-70 mg/dL: Oral treatment preferred: If able to drink, give 120 mL Juice or Regular (not diet) soda OR If NPO, give 15 gram glucose 40% oral gel massaged into buccal mucosa OR if unconscious or uncooperative, give 25 gram (250 mL) Dextrose 10% IV over 15 minutes per protocol OR, if no IV access, 1 mg Glucagon IM. For BG less than 50 mg/dL: Oral treatment preferred: If able to drink, give 240 mL Juice or Regular (not diet) soda OR If NPO, give 30 gram glucose 40% oral gel massaged in buccal mucosa OR if unconscious or uncooperative, give 25 gram (250 mL) Dextrose 10% IV over 15 minutes per protocol OR, if no IV access, 1 mg Glucagon IM. Recheck BG in 30 minutes. May repeat juice/soda, gel, dextrose or glucagon once per episode. For persistent hypoglycemia, consider longer-acting treatment for the duration of the active insulin., Routine Group 3: ondansetron (Zofran) tablet 4 mgJump to med 4 mg, Oral, EVERY 8 HOURS PRN, Starting on 01/17/23 at 1837, Until 01/18/23 at 1459, Nausea, Vomiting, If multiple antiemetics are ordered, use ondansetron first, prochlorperazine second, and metoclopramide third. PO Preferred. If patient unable to take PO, may give IV if ordered. May repeat times one in 45 minutes if ineffective. Maximum daily dose = 24 mg/24 hours, Routine Or ondansetron (pf) (Zofran) (2 mg/mL) injection 4 mgJump to med 4 mg, Intravenous, EVERY 8 HOURS PRN, Starting on Fri01/17/23 at 1837, Until 01/18/23 at 1459, Nausea, If multiple antiemetics are ordered, use ondansetron first, prochlorperazine second, and metoclopramide third. PO Preferred. If patient unable to take PO, may give IV if ordered. May repeat times one in 30 minutes if ineffective. Maximum daily dose = 24 mg/24 hours documented in this encounter Care Teams Manager Transfer Relationship Specialty Start Date End Date Grant Lindsey MD PCP - General Family Medicine 02/25/19 documented as of this encounter
--- OUTSIDE RECORDS SUMMARY | 2024-01-23 00:32 | XMS_ITS | Encounter Summary ---
[facility] [place] [address] Care Team Providers Care Retail Marketing Manager Name Role Phone Grant Lindsey MD Primary Care Provider [phone] Encounter Details Date Type Department Care Team (Latest Contact Info) Description 01/09/2023 9:00 AM EDT TH Visit (TeleHealth) [place] [address] Hepatic cirrhosis, unspecified hepatic cirrhosis type, unspecified whether ascites present Social History Tobacco Use Types Packs/Day Years [...] on file documented as of this encounter Plan of Treatment Upcoming Encounters Date Type Department Care Team (Late st Contact Info) Description 02/27/2024 2:45 PM EST TH Visit (TeleHealth) [place] [address] Lashae Lorenzo MD [facility] [place] [address] documented as of this encounter Visit Diagnoses Diagnosis Hepatic cirrhosis, unspecified hepatic cirrhosis type, unspecified whether ascites present documented in this encounter Care Teams Retail Marketing Manager Relationship Specialty Start Date End Date Grant Lindsey MD PCP - General Family Medicine 02/25/19 documented as of this encounter
--- OUTSIDE RECORDS SUMMARY | 2024-01-23 00:32 | XMS_ITS | Encounter Summary ---
[place] [address] Care Team Providers Care Day Care Supervisor Name Role Phone Grant Lindsey MD Primary Care Provider [phone] Encounter Details Date Type Department Care Team (Late st Contact Info) Description 01/07/2023 Telephone [place] [id number] Janie Lira, RN Social History Tobacco Use Types Packs/Day Years [...] on file documented as of this encounter Miscellaneous Notes * Telephone Encounter - Janie Lira RN - 01/07/2023 2:32 PM EDT Attempted to reach Ms. Darling this afternoon to remind her that her last dose of Plavix prior to her upcoming surgery with Dr. Lorenzo should be January 09. Her voicemail was not set up,so I couldn't leave a message but will try again. Addendum: I spoke with Ms. Darling. She states she hasn't been on the Plavix for quite some time. I reviewed her medication list and do not see any additional blood thinners. I also viewed her last available PCP note. Her medication reconciliation from PCP's office has documented her Plavix as discontinued. I let her know she would receive a phone call from the pre op nurses on the business day before surgery to review which medications she should take AM of surgery. She is in agreement with this plan. documented in this encounter Plan of Treatment Upcoming Encounters Date Type Department Care Team (Late st Contact Info) Description 02/27/2024 2:45 PM EST TH Visit (TeleHealth) [place] [address] Lashae Lorenzo MD [facility] [place] [address] documented as of this encounter Visit Diagnoses Not on filedocumented in this encounter Care Teams Day Care Supervisor Relationship Specialty Start Date End Date Grant Lindsey MD PCP - General Family Medicine 02/25/19 documented as of this encounter
--- OUTSIDE RECORDS SUMMARY | 2024-01-23 00:32 | XMS_ITS | Encounter Summary ---
Author Organization [facility] [place] [address] Care Team Providers Care Sash Clamp Operator Name Role Phone Grant Lindsey MD Primary Care Provider [phone] Encounter Details Date Type Department Care Team (Latest Contact Info) Description 08/19/2022 Travel Social History Tobacco Use Types Packs/Day Years [...] EST TH Visit (TeleHealth) [place] [phone] Lashae Lorenzo MD [facility] [place] [address] documented as of this encounter Visit Diagnoses Not on filedocumented in this encounter Care Teams Sash Clamp Operator Relationship Specialty Start Date End Date Grant Lindsey MD PCP - General Family Medicine 02/25/19 documented as of this encounter
--- OUTSIDE RECORDS SUMMARY | 2024-01-23 00:32 | XMS_ITS | Encounter Summary ---
Author Organization [facility] [place] [address] Care Team Providers Care Supervisor Wood Crew Name Role Phone Grant Lindsey MD Primary Care Provider [phone] Encounter Details Date Type Department Care Team (Late st Contact Info) Description 07/15/2022 Ancillary Procedure Radiology Library at [facility] [place] [address] Grant Lindsey MD [address] [place] [address] [place] [address] Social History Tobacco Use Types Packs/Day Years [...] EST TH Visit (TeleHealth) General Surgery at [facility] [place] [phone] Lashae Lorenzo MD [facility] [place] [address] documented as of this encounter Procedures Procedure Name Priority Date/Time Associated Diagnosis Comments FILM LIBRARY STORAGE ONLY CT ABDOMEN AND PELVIS Routine 07/15/2022 12:00 AM EDT documented in this encounter Results * Film Library- Storage Only CT Abdomen & Pelvis (07/15/2022 12:00 AM EDT) Narrative [facility] - 07/30/2022 4:25 PM EDT This exam is auto-finalizing. It's purpose is for storage only. Grant Lindsey MD G FILM LIBRARY ORD ERABLES [place], [place] documented in this encounter Visit Diagnoses Not on filedocumented in this encounter Care Teams Supervisor Wood Crew Relationship Specialty Start Date End Date Grant Lindsey MD PCP - General Family Medicine 02/25/19 documented as of this encounter
--- OUTSIDE RECORDS SUMMARY | 2024-01-23 00:32 | XMS_ITS | Encounter Summary ---
[place] [address] Care Team Providers Care Assistant Terminal Manager Name Role Phone Grant Lindsey MD Primary Care Provider [phone] Encounter Details Date Type Department Care Team (Latest Contact Info) Description 11/18/2022 12:40 PM EDT TH Visit (TeleHealth) [place] [phone] Lashae Lorenzo MD [facility] [place] [place] [address] Nicotine dependence with nicotine-induced disorder, unspecified nicotine [...] Progress Notes * Lashae Lorenzo MD - 11/18/2022 12:40 PM EDT I spoke with Ms. Darling. She has not had a cigarette in 2 weeks. She is on varenicline and says this has helped. I will re-order nicotine testing. If negative we can look for a date for surgery. documented in this encounter Plan of Treatment Upcoming Encounters Date Type Department Care Team (Late st Contact Info) Description 02/27/2024 2:45 PM EST TH Visit (TeleHealth) [place] [address] Lashae Lorenzo MD [facility] [place] [place] [address] documented as of this encounter Visit Diagnoses Diagnosis Nicotine dependence with nicotine-induced disorder, unspecified nicotine product type documented in this encounter Care Teams Assistant Terminal Manager Relationship Specialty Start Date End Date Grant Lindsey MD PCP - General Family Medicine 02/25/19 documented as of this encounter
--- OUTSIDE RECORDS SUMMARY | 2024-01-23 00:32 | XMS_ITS | Encounter Summary ---
Author Organization [facility] [place] [address] Care Team Providers Care Horse And Wagon Driver Name Role Phone Grant Lindsey MD Primary Care Provider [phone] Reason for Visit * Consultation (Routine) - Closed Specialty Diagnoses / Procedures Referred By Contmisael t Referred To Contact Gastroenterology Diagnoses Gastric varices Portal hypertension Alcoholic cirrhosis, unspecified whether ascites present Anemia, unspecified type Varices/Portal hypertension/ alcholic cirrhosis- Grant Ingram MD [address] [place] [address] [place] [address] [facility] [address] [place] [address] Referral ID Status Reason Start Date Expiration Date V isits Requested Visits Authorized [id number] Closed Consult, Test & Treat PCP Updated and/or Approved 01/11/2022 01/11/2023 12 12 Encounter Details Date Type Department Care Team (Late st Contact Info) Description 05/30/2022 11:30 AM EST Office Visit [place] [address] Saniya Davis, INDUSTRIAL HYGIENE ENGINEER [facility] [place] [address] Hepatic cirrhosis, unspecified hepatic cirrhosis type, unspecified [...] Sign Reading Time Taken Comments Blood Pressure 98/57 05/30/2022 11:34 AM EST Pulse 72 05/30/2022 11:34 AM EST Temperature - - Respiratory Rate - - Oxygen Saturation 94% 05/30/2022 11: 34 AM EST Inhaled Oxygen Concentration - - Weight 110.3 kg (243 lb 1.6 oz) 023 11:34 AM EST Height 165.1 cm (5' 5) 05/30/2022 11:3 4 AM EST Body Mass Index 40.45 05/30/2022 11:34 AM EST documented in this encounter Progress Notes * Saniya Davis APRN - 05/30/2022 11:30 AM EST Hepatology Follow Up Note Patient: Kallie Darling Gender: female : 1960 Provider: Saniya Davis NP Referring Physician: Grant Lindsey MD ID: Kallie Darling is a 61 y.o. female with PMH significant for MONA/HARDEN c/b portal HTN: Grade 1 EV on carvedilol, constipation. I last saw her in 07/2019 and she returns today for follow up. She has had discomfort in her RUQ, in reviewing notes that has been present for years. She states she feels like knife cutting into her side. Bothers her when she bends down, feels like someone is cutting her. Has been going on for a long time. Takes Acetaminophen for pain reliever, maybe 1500mg david day which helps the pain. Hasn't had any alcohol since last year. She has not drank in at least a few months, can't recall when the last time she drank was. Has been talking to her counselor every 2 weeks. Helps her with anxiety, depresion, stress. Was recently prescribed lisinopril but hasn't started that medication. Medications managed by Katelynn at [facility]. WIll check with Dr. Lindsey to make sure she is still taking Coreg, not sure if she is taking that. GI Problem List: 1. Cirrhosis, HARDEN/MONA Imaging - Abd Ultrasound 09/18/12 (see below) Liver Biopsy - 01/28/12 - severe steatohepatitis and cirrhosis Complications 1. Portal HTN - Grade 1 EV (08/21/12) A. 09/18/12 Coreg 6.25 mg BID B. 05/06/13 Increase Coreg 12.5 mg BID 2. Ascites - none to date 3. Hepatic Encephalopathy - none to date 4. UGIB - none to date 5. HCC Screening: RUQ US 01/11/15 Negative 2. HARDEN 3. Alcohol Dependince 1. Continues to drink. Last ETOH 04/13/13 4. Class II Obesity 5. Pre-Diabetes 6. Dyslipidemia 7. SOCORRO 8. GERD 9. Constipation 10. Asthma 11. Depression 12. Right Sided LE pain 13. S/P Hysterectomy 1979 14. S/P left thumb surgery 1966 15. S/P left knee arthroscopy 2001 16. S/P cholecystectomy 2009 17. S/p stroke 2016 18. S/p vental hernia surgical repair (05/11/19) done at [facility], no ascites afterwards Preventative Health 1. HAV/HBV: (+)/(+) 2. Portal HTN - EGD 08/21/12 with Grade 1 EV. Coreg 6.25 mg BID initiated 09/18/12; increased Coreg 12.5 mg BID 05/06/13. No need to repeat EGD unless decompensates. 3. Colonoscopy - 08/21/12. Poor prep. Repeated 2013 with TA and showed colitis, most likely infectious 4. HCC surveillance - Ultrasound 01/11/2015, no liver masses 5. Pneumovax - administered 05/06/13 6. Influenza Vaccine - administered 05/06/13 Social History: Has 3 grandkids, age 16, 13, 6 yo. 3 children, . LIves by self, has been by self for 10 years. 5-30 cig/day. Alcohol: None since 03/08/2017. Previously would drink about 3 beers per week. Family History: No family history of Liver disease. Current Outpatient Medications Medication Sig Dispense Refill ??? furosemide (Lasix) 20 mg Tablet Take 20 mg by mouth Daily. ??? pantoprazole (PROTONIX) 40 mg Tablet, Delayed Release (E.C.) Take 40 mg by mouth daily. ??? lisinopriL (Zestril) 5 mg Tablet ??? escitalopram (Lexapro) 20 mg Tablet 20 mg. ??? hydrOXYzine (Atarax) 25 mg Tablet TAKE 1 TABLET BY MOUTH EVERY 6 HOURS NEEDED FOR ANXIETY NAUSEA ??? famotidine (Pepcid) 20 mg Tablet Take 20 mg by mouth Twice daily. ??? calcium citrate-vitamin D (CALCIUM CITRATE +) 315-200 mg-unit Tablet Take 2 tablets by mouth 3 times daily (with meals). (Patient not taking: Reported on 06/08/2019) ??? metformin HCl (METFORMIN ORAL) Take 1,000 mg by mouth 2 times daily. ??? loratadine (CLARITIN) 10 mg Tablet Take 10 mg by mouth daily. ??? citalopram (CELEXA) 40 mg Tablet Take 40 mg by mouth daily. ??? albuterol sulfate 90 mcg/actuation Aerosol Powdr Breath Activated Inhale 180 mcg into the lungsevery 6 hours. ??? fluticasone-salmeterol (ADVAIR HFA) 45-21 mcg/actuation HFA Aerosol Inhaler Inhale 2 puffs intothe lungs 2 times daily. ??? gabapentin (NEURONTIN) 800 mg Tablet Take 800 mg by mouth 3 times daily. ??? clopidogrel (PLAVIX) 75 mg Tablet Take 75 mg by mouth daily. ??? docusate sodium (COLACE) 100 mg Capsule Take 100 mg by mouth as needed for Constipation. ??? NOVOLOG FLEXPEN U-100 INSULIN Insulin Pen inject subcutaneously three times a day as directed with meals (I... (REFER TO PRESCRIPTION NOTES). 1 ??? cyanocobalamin 1,000 mcg Tablet 0 ??? carvedilol (COREG) 6.25 mg Tablet Take 1 tablet by mouth 2 times daily (with meals). 180 tablet3 ??? levothyroxine (SYNTHROID) 50 mcg Tablet Take 50 mcg by mouth daily. No current facility-administered medications for this visit. Allergies Allergen Reactions ??? Amoxicillin-Pot Clavulanate Nausea [...] Lactose Other (See Comments) GI Upset ??? Rnqjthsd-Syheakzcqou-Llniqeitt Nausea and rash Physical Examination: . Vitals: 05/30/22 1134 BP: 98/57 Pulse: 72 SpO2: 94% Weight: 110.3 kg (243 lb 1.6 oz) Height: 165.1 cm (5' 5) No vitals or physical exam. Patient speaking quickly and in complete sentences. Labs: Reviewed in EDH/Scan Docs Lab Results Component Value Date WBC 4.5 05/30/2022 HGB 11.3 (L) 05/30/2022 HCT 35.2 (L) 05/30/2022 MCV 85.9 05/30/2022 PLATELET 110 (L) 05/30/2022 Chemistry Component Value Date/Time NA 141 05/30/2022 1044 K 3.8 05/30/2022 1044 CL 105 05/30/2022 1044 CO2 23 05/30/2022 1044 BUN 9 05/30/2022 1044 CREATININE 0.74 05/30/2022 1044 Component Value Date/Time CALCIUM 8.9 05/30/2022 1044 ALKPHOS 140 (H) 05/30/2022 1044 AST 34 (H) 05/30/2022 1044 ALT 21 05/30/2022 1044 BILITOT 0.3 05/30/2022 1044 Lab Results Component Value Date ALT 21 05/30/2022 AST 34 (H) 05/30/2022 ALKPHOS 140 (H) 05/30/2022 BILITOT 0.3 05/30/2022 MELD-Na score: 8 at 05/30/2022 10:44 AM MELD score: 8 at 05/30/2022 10:44 AM Calculated from: Serum Creatinine: 0.74 mg/dL (Using min of 1 mg/dL) at 05/30/2022 10:44 AM Serum Sodium: 141 mmol/L (Using max of 137 mmol/L) at 05/30/2022 10:44 AM Total Bilirubin: 0.3 mg/dL (Using min of 1 mg/dL) at 05/30/2022 10:44 AM INR(ratio): 1.2 at 05/30/2022 10:44 AM Age: 61 years Ultrasound 05/30/2022: IMPRESSION ?? 1. Similar appearance of borderline hepatomegaly, coarsened parenchyma and capsular nodularity from the patient's known cirrhosis. There is no focal hepatic lesion. 2. 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 3. Gallbladder surgically absent. No intra or extrahepatic biliary ductal dilation. 4. No ascites. IMPRESSION: Kallie Darling is a 61 y.o. PMH significant for MONA/HARDEN cirrhosis who returns today for follow up after being out of hepatology care for about 3 years. Fortunately, she has been followed closely by her PCP, Dr. Lindsey, and appears to have been getting regular imaging for HCC surveillance. Her US today does not show any liver lesions. Her main concern today was chronic right upper quadrant abdominal pain. This has been evaluated previously and her ultrasound today does not show any cause for this pain. We discussed that capsular stretch due to hepatomegaly could cause a slight discomfort but it is unusual for the liver to cause any pain as it does not have pain receptors. For pain management, we discussed that I would recommend avoiding NSAIDs. Is it okay to take up to 2000 mg of acetaminophen per day as long as she avoids alcohol. In addition, I would recommend that she continue on carvedilol for primary prevention to variceal bleed. She did have small varices seen on her upper endoscopy in 2017. If she is not taking carvedilol or another nonselective beta- purnima (nadolol or propanolol) she should have another upper endoscopy. Her med list notes that she is taking lisinopril however I would not recommend that she take this medication as her blood pressure today is not elevated and LAYLA inhibitors are not recommended in patients with cirrhosis and portal hypertension. 1. Cirrhosis. MELD 8 2. Alcohol use. Has not drank since 02/2017. 3. HARDEN. This is likely contributing to her liver disease as well. Would recommend watching her diet and working on weight loss, can discuss more at future visits. 4. HCC surveillance. She should have imaging of her liver every 6 months,. US today with no lesions. 5. Portal hypertension. She had small varices noted on EGD in 2017and has been taking Carvedilol since then for primary prophylaxis although she is not sure that she is still taking. Asked her to follow up with PCP, if no longer taking, will need repeat EGD. RECOMMENDATIONS: - Advised patient to check with PCP regarding Carvedilol. - Okay to take a maximum of 2000 mg of Tylenol per day as needed. - Follow up in 6 months with labs and US Saniya Davis APRN Section of Gastroenterology [place] [address] Grant Lindsey MD [address] [place] [address] [place] [address] Time spent reviewing records prior to this encounter: 5minutes Time spent during encounter with patient including counselin minutes Time spent documenting encounter on date of service: 10 minutes Approximate total time devoted to this single encounter on date of service: 35 minutes documented in this encounter Plan of Treatment Upcoming Encounters Date Type Department Care Team (Late st Contact Info) Description 02/27/2024 2:45 PM EST TH Visit (TeleHealth) [place] [address] Lashae Lorenzo MD [facility] [place] [address] documented as of this encounter Visit Diagnoses Diagnosis Hepatic cirrhosis, unspecified hepatic cirrhosis type, unspecified whether ascites present documented in this encounter Care Teams Horse And Wagon Driver Relationship Specialty Start Date End Date Grant Lindsey MD PCP - General Family Medicine 02/25/19 documented as of this encounter
--- OUTSIDE RECORDS SUMMARY | 2024-01-23 00:32 | XMS_ITS | Encounter Summary ---
Author Organization [facility] Address [facility] [place] [address] Care Team Providers Care Tax Services Specialist Name Role Phone Grant Lindsey MD Primary Care Provider [phone] Encounter Details Date Type Department Care Team (Latest Contact Info) Description 02/17/2023 Travel Social History Tobacco Use Types Packs/Day Years Used Date Smoking Tobacco: Former Cigarettes 0.3 30 1 - 01/17/2023 Smokeless Tobacco: Never Alcohol Use Standard Drinks/Week Comments Not Currently 0 (1 standard drink = 0.6 oz pur e alcohol) last drink was 2018 [facility] Inpatient Questions Answer Date Recorded Does Anyone [...] EST TH Visit (TeleHealth) [place] [phone] Lashae Lorenzo MD [facility] [place] [address] documented as of this encounter Visit Diagnoses Not on filedocumented in this encounter Care Teams Tax Services Specialist Relationship Specialty Start Date End Date Grant Lindsey MD PCP - General Family Medicine 02/25/19 documented as of this encounter
--- OUTSIDE RECORDS SUMMARY | 2024-01-23 00:32 | XMS_ITS | Encounter Summary ---
[place] [address] Care Team Providers Care Staff Registered Nurse Name Role Phone Grant Lindsey MD Primary Care Provider [phone] Reason for Visit * Reason Comments Establish Care * Consultation (Routine) - Closed Specialty Diagnoses / Procedures Referred By Nicol sparks Referred To Contact General Surgery Diagnoses Incisional hernia, without obstruction or gangrene Marybel Loaiza, DO [address] [place] [address] [facility] Gen Surgery [address] [place] [address] Referral ID Status Reason Start Date Expiration Date V isits Requested Visits Authorized [id number] Closed Consult, Test & Treat PCP Updated and/or Approved 07/16/2022 07/16/2023 6 6 Encounter Details Date Type Department Care Team (Late st Contact Info) Description 08/19/2022 2:00 PM EDT Office [place] [address] Lashae Kenyon MD [facility] [place] [address] Ventral hernia without obstruction or gangrene; Type 2 diabetes mellitus without complication, without long-term current use of insulin; Hepatic cirrhosis, unspecified hepatic cirrhosis type, unspecified [...] Sign Reading Time Taken Comments Blood Pressure 131/69 08/19/2022 1:48 PM EDT Pulse 68 08/19/2022 1:48 PM EDT Temperature - - Respiratory Rate 16 08/19/2022 1:48 PM EDT Oxygen Saturation 98% 08/19/2022 1:48 PM EDT Inhaled Oxygen Concentration - - Weight 111.1 kg (245 lb) 08/19/2022 1:48 PM EDT Height 165.1 cm (5' 5) 08/19/2022 1:48 PM EDT Body Mass Index 40.77 08/19/2022 1:48 PM EDT documented in this encounter Progress Notes * Lashae Kenyon MD - 08/19/2022 2:00 PM EDT [facility] General Surgery History and Physical History of Present Illness: Kallie Smart is a 61 y.o. female referred by Dr. Marybel Loaiza for an incisional hernia. She tells me that about one month ago (July 2022) she was moving around furniture and the next day felt a bulge. She is unsure if it has gotten larger. It is quite painful and bothers her when she bends. Sometimes she gets nauseas when she tries to eat. She also gets pain when she eats. She took tylenol the other day and threw it up. Hernia Risk Factors: ??? Constipation- none ??? Frequent Heavy Lifting- she gets bored and likes to rearrange her house ??? LUTS- no ??? Cough- Yes, has COPD ??? Smoking history- current smoker; 6 cigarettes/day. 50 year smoker- 2-3 packs per day. Trying tocut back. ??? Weight gain- about stable ??? BMI- 41 ??? Hemoglobin A1c- Thinks 9 ? ? >4 METS- yes Had a stroke, no deficits. COPD. 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 Right foot pain M79.671 ??? Neck pain M54.2 ??? Left elbow pain M25.522 ??? Asthma J45.909 ??? Chronic low back pain M54.50, G89.29 ??? Restless leg syndrome G25.81 ??? Acid reflux K21.9 ??? Learning disability F81.9 ??? Low back pain M54.50 ??? Primary hyperparathyroidism (PTH 165, Ca 11.0, +PUD but no kidney stone) E21.0 ??? H/O hysterectomy for benign disease at age 32 (menorrhagia/DUB) Z90.710 ? ? 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 Hyperparathyroidism E21.3 ??? Alcoholic cirrhosis of liver without ascites K70.30 ??? Obesity (BMI 30-39.9) E66.9 ??? SOCORRO (obstructive sleep apnea) G47.33 ??? GERD (gastroesophageal reflux disease) K21.9 ??? Hyperlipidemia E78.5 ??? Smokes F17.200 ??? CVA (cerebral vascular accident) I63.9 ??? Alcoholism in remission F10.21 Past Surgical History: Past Surgical History: Procedure Laterality Date ??? CHOLECYSTECTOMY 2009 ??? HAND SURGERY 1967 left thumb ??? HYSTERECTOMY 1979 ??? KNEE ARTHROSCOPY 2002 left ??? PRG EMG, LARYNX N/A 11/10/2017 FACIAL NERVE MONITORING, SETUP LARYNGEAL (WRVU 1.57) performed by Ana Dias MD at [facility] MAIN OR ? ? PRO [facility] EBUS GUIDED SAMPL 3/> NODE STATION/STRUX N/A 09/11/2017 BRONCH, W ENDOBRONCHIAL ULTRASOUND (EBUS) GUIDED SAMPLING, 3+ NODES (WRVU 5.21) performed by Josh Guadarrama MD at [facility] ENDOSCOPY ??? PRO COLONOSCOPY, BIOPSY 01/27/2014 COLONOSCOPY FLEXIBLE, WITH BX performed by Natividad Taveras MD at [facility] ENDOSCOPY ??? PRO COLONOSCOPY, DIAGNOSTIC 02/17/2012 COLONOSCOPY, DIAGNOSTIC performed by ENRICO RUGGIERO at [facility] ENDOSCOPY ??? PRO COLONOSCOPY, DIAGNOSTIC 2012 COLONOSCOPY, DIAGNOSTIC performed by Natividad Taveras MD at [facility] ENDOSCOPY ??? PRO EXPLORE PARATHYROID GLANDS N/A 11/10/2017 PARATHYROIDECTOMY OR EXPLORATION OF PARATHYROID(S) (WRVU 15.6) performed by Ana Dias MD at [facility] MAIN OR ??? PRO NEEDLE BIOPSY LIVER 01/28/2012 ??? PRO UPPER GI ENDOSCOPY, BIOPSY N/A 10/21/2016 UPPER GASTROINTESTINAL ENDOSCOPY,WITH BIOPSY SINGLE OR MULTIPLE (WRVU 2.49) performed by Matthew Garcia MD at [facility] ENDOSCOPY ??? PRO UPPER GI ENDOSCOPY, DIAGNOSTIC N/A 10/21/2016 EGD, UPPER GI ENDOSCOPY performed by Matthew Garcia MD at [facility] ENDOSCOPY ??? UPPER GI ENDOSCOPY, EXAM 2012 UPPER GI ENDOSCOPY performed by Natividad Taveras MD at [facility] ENDOSCOPY ventral hernia repair--- [facility]; with mesh Medications: Current Outpatient Medications on File Prior to Visit Medication Sig Dispense Refill ??? lisinopriL (Zestril) 5 mg Tablet ??? furosemide (Lasix) 20 mg Tablet Take 20 mg by mouth Daily. ??? escitalopram (Lexapro) 20 mg Tablet 20 mg. ??? zonisamide (Zonegran) 100 mg Capsule ??? traZODone (Desyrel) 50 mg Tablet Take 50 mg by mouth nightly. ??? risperiDONE (RisperDAL) 0.5 mg Tablet 0.5 mg. ??? mirtazapine (Remeron) 15 mg Tablet 15 mg. ??? metFORMIN (Glucophage) 1,000 mg Tablet ??? Incruse Ellipta 62.5 mcg/actuation Disk with Device ??? Symbicort 160-4.5 mcg/actuation HFA Aerosol Inhaler ??? hydrOXYzine (Atarax) 25 mg Tablet TAKE 1 TABLET BY MOUTH EVERY 6 HOURS NEEDED FOR ANXIETY NAUSEA ??? famotidine (Pepcid) 20 mg Tablet Take 20 mg by mouth Twice daily. ??? calcium citrate-vitamin D (CALCIUM CITRATE +) 315-200 mg-unit Tablet Take 2 tablets by mouth 3 times daily (with meals). (Patient not taking: Reported on 06/08/2019) ??? loratadine (CLARITIN) 10 mg Tablet Take [...] by mouth as needed for Constipation. ??? pantoprazole (PROTONIX) 40 mg Tablet, Delayed Release (E.C.) Take 40 mg by mouth daily. ??? NOVOLOG FLEXPEN U-100 INSULIN Insulin Pen inject subcutaneously three times a day as directed with meals (I... (REFER TO PRESCRIPTION NOTES). 1 ??? cyanocobalamin 1,000 mcg Tablet 0 ??? levothyroxine (SYNTHROID) 50 mcg Tablet Take 50 mcg by mouth daily. No current facility-administered medications on file prior to visit. Allergies: Amoxicillin-pot clavulanate, Bacitracin, Gramicidin d, Neomycin, Neomycin sulfate, Polymyxin b, Adhesive, Amoxicillin, Aspirin, Celecoxib, Lactase, Lactose, and Pohzeciq-stirrktuffo-davqptlsw Family History: Family History Problem Relation Age of Onset ??? Heart Failure Mother ??? High Cholesterol Mother ??? Hypertension Mother ??? Diabetes Mother ??? Hypertension Father ??? Diabetes Maternal Grandmother ??? Cancer Maternal Grandmother ??? Cancer Paternal Grandfather ??? High Cholesterol Brother ??? Hypertension Brother ??? Glaucoma Maternal Aunt Social History: reports that she has been smoking cigarettes. She has a 7.50 pack-year smoking history. She has never used smokeless tobacco. She reports that she does not drink alcohol and does not use drugs. Review of Systems: A 10 point review of systems was performed. Pertinent positives and negatives are listed in the above HPI. All other systems are negative. Physical Exam: Vital Signs: BP 131/69 (BP Location (NBP): Right arm, Patient Position: Sitting, BP Cuff Sizes: Adult (25-34 cm)) Pulse 68 Resp 16 Ht 165.1 cm (5' 5) Wt 111.1 kg (245 lb) SpO2 98% BMI 40.77 kg/m?? General appearance: Alert and oriented, appears stated age, well groomed HEENT: No scleral icterus, normocephalic, atraumatic Neck: Trachea midline Skin: No jaundice Heart: Regular rate and rhythm Lungs: Symmetric chest rise, no distress, clear breath sounds bilaterally Abdomen: Non distended, soft, non tender to palpation, large abdomen with a bulge in her upper midline that is painful and non reducible. She has a scar from her previous ventral hernia repair just below this. Extremities: Moves all four extremities, no gross deformity. Studies: Imaging: My review of a CT scan from 07/15/22 shows a small ventral hernia containing a varix, likelypart of her recannulated umbilical vein and cirrhosis. Assessment and Recommendation: A 61 y.o.-old female with cirrhosis and a ventral hernia containing part of her re-cannulated umbilical vein. The patient was educated on the natural history of hernias and we reviewed her imaging together. I explained that she is overall a very high risk patient given her underlying cirrhosis, COPD, active smoking, among other medical problems. This is also not a simple hernia. She appears to have partof her recannulated umbilical vein incarcerated in a ventral hernia. It is difficult to determine if this is a branch or if there is blood flow. I would like to start with an US to determine if thereis flow through the vessel incarcerated in the hernia. Once we have this information, we can discuss options. I think any hernia repair would risk injuring this vessel and causing potential life threatening bleeding. On the other hand, using a sclerotic agent to clot off the vessel could lead to ext ension of thrombus and possible decompensation of her liver failure. I would like her to get an update Hgb A1c today and will order an US for her to get in the near future. I will follow up with her after the US. Thank you for the referral and for allowing me to participate in the care of Kallie Smart. Lashae Kenyon MD General Surgery Minimally Invasive Surgery [phone] documented in this encounter Plan of Treatment Upcoming Encounters Date Type Department Care Team (Late st Contact Info) Description 02/27/2024 2:45 PM EST TH Visit (TeleHealth) [place] [address] Lashae Kenyon MD [facility] [place] [address] documented as of this encounter Procedures Procedure Name Priority Date/Time Associated Diagnosis Comments HEMOGLOBIN A1C Routine 08/19/2022 2:59 PM EDT Type 2 diabetes mellitus without complication, without long-term current use of insulin documented in this encounter Results * US Abdomen Limited (08/27/2022 8:55 AM EDT) Anatomical Region Laterality Modality Abdomen Ultrasound 08/27/2022 8:55 AM EDT Impressions 08/27/2022 9:41 AM EDT Supraumbilical hernia containing omental fat , small amount of trapped intraperitoneal fluid which corresponds to the region described as a vessel on the prior CT. There is no herniation of or connection with the recanalized umbilical vein. I have personally reviewed the image(s) and the resident's interpretation and agree with the findings, Primo Guthrie MD at 08/27/2022 9:33 AM Thank you for letting us participate in the care of this patient. If you are a health care provider and have any questions regarding this report, please contact the number above. For patients who have questions, please contact the health manager career that requested your imaging first. ?Primo Guthrie, Staff Physician Electronically Signed Final Report ?? 08/27/2022 09:40 am Narrative 08/27/2022 9:41 AM EDT Abdominal ? (Signed Final 08/27/2022 09:40 am) PATIENT INFO: ID #: ? [id number] ?: ??60 (62 yrs)(F) Name: ? KALLIE SMART ? Visit Date: 08/27/2022 08:55 am PERFORMED BY: Attending: ?[place] STOCKTON, Primo Resident: ? Melida Justin MD, Matthew Barraza Performed By: ? Erik Larsen RDMS Referred By: ?LASHAE KENYON Location: ? [place] SERVICE(S) PROVIDED: UABDLIM - Abdominal Limited Survey Single ? 10417 Organ or Quadrant - [id number] INDICATIONS: Small hernia containing a possible varix. Possibly recannulated umbilical vein. Please eval for blood flow COMPARISON: CT ??Abdomen Pelvis 07/15/22 ADDITIONAL FINDINGS: Fat containing ventral wall hernia with a centralized simple fluid collection seen within the hernia sac. Seen right of midline anteriorly to the left lobe with a noncommunicating recanalized umbilical vein. Fascia defect measuring up to 11 mm. No sonographic evidence of varix. Procedure Note Primo Guthrie MD - 08/27/2022 Abdominal (Signed Final 08/27/2022 09:40 am) PATIENT INFO: ID #: [id number] : 60 (62 yrs)(F) Name: KALLIE SMART Visit Date: 08/27/2022 08:55 am PERFORMED BY: Attending: Primo Guthrie MD Resident: Matthew Mares MD Performed By: Erik Larsen RDMS Referred By: LASHAE KENYON Location: [place] SERVICE(S) PROVIDED: UABDLIM - Abdominal Limited Survey Single 77949 Organ or Quadrant - [id number] INDICATIONS: Small hernia containing a possible varix. Possibly recannulated umbilical vein. Please eval for blood flow COMPARISON: CT Abdomen Pelvis 07/15/22 ADDITIONAL FINDINGS: Fat containing ventral wall hernia with a centralized simple fluid collection seen within the hernia sac. Seen right of midline anteriorly to the left lobe with a noncommunicating recanalized umbilical vein. Fascia defect measuring up to 11 mm. No sonographic evidence of varix. IMPRESSION Supraumbilical hernia containing omental fat , small amount of trapped intraperitoneal fluid which corresponds to the region described as a vessel on the prior CT. There is no herniation of or connection with the recanalized umbilical vein. I have personally reviewed the image(s) and the resident's interpretation and agree with the findings, Primo Guthrie MD at 08/27/2022 9:33 AM Thank you for letting us participate in the care of this patient. If you are a health care provider and have any questions regarding this report, please contact the number above. For patients who have questions, please contact the health manager career that requested your imaging first. Primo Guthrie, Staff Physician Electronically Signed Final Report 08/27/2022 09:40 am Lashae Kenyon MD IMG US GEN ORDERABLE S * (ABNORMAL) Hemoglobin A1c (08/19/2022 2:59 PM EDT) Hemoglobin A1c 6.6(H) 4.3 - 5.6 % [facility] Comment: Reference Range: 4.3 - 5.6% 5.7 - 6.4% - Increased Risk of Developing Diabetes Mellitus >= 6.5% - Consistent with diagnosis of Diabetes Mellitus In the absence of hyperglycemia (i.e. plasma glucose > 200 mg/dL) or classic symptoms of hyperglycemia a repeat measurement of HbA1c should be performed on a separate sample to confirm the diagnosis. Diagnosis and Classification of Diabetes Mellitus, Diabetes Care 2013; 36: Suppl. 1, V95-64 Estimated Average Glucose 143 mg/dL [facility] Comment: eAG equivalents for HbA1c percentages: HbA1c(%) ?eAG(mg/dL) 6.0 ?126 6.5 ?140 7.0 ?154 7.5 ?169 8.0 ?183 8.5 ?197 9.0 ?212 9.5 ?226 10.0 ? 240 Limitations: The eAG calculation has not been validated on women, individuals below 18 years old and above 70 years old, and individuals with hemoglobinopathies. Additional resources are available on the ADA website. Rg ADDISON, Alva J, Saran R, et al. ??Translating the A1C assay into estimated average glucose values. ??Diabetes Care 2008:31(8):1842-7764. Blood 08/19/2022 2:59 PM EDT 08/19/2022 3:11 PM EDT Narrative Resulting Agency Comment Spec In Lab Lashae Kenyon MD CHEMISTRY ORDERABLES [facility] [place] [address] documented in this encounter Visit Diagnoses Diagnosis Ventral hernia without obstruction or gangrene Ventral hernia, unspecified, without mention of obstruction or gangrene Type 2 diabetes mellitus without complication, without long-term current use of insulin Hepatic cirrhosis, unspecified hepatic cirrhosis type, unspecified whether ascites present Ventral hernia without obstruction or gangrene Ventral hernia, unspecified, without mention of obstruction or gangrene documented in this encounter Care Teams Staff Registered Nurse Relationship Specialty Start Date End Date Grant Lindsey MD PCP - General Family Medicine 02/25/19 documented as of this encounter
--- OUTSIDE RECORDS SUMMARY | 2024-01-23 00:32 | XMS_ITS | Encounter Summary ---
[place] [address] Care Team Providers Care Blood Bank Booking Clerk Name Role Phone Grant Lindsey MD Primary Care Provider [phone] Reason for Referral * Consultation (Routine) - Closed Specialty Diagnoses / Procedures Referred By Nicol sparks Referred To Contact General Surgery Diagnoses Incisional hernia, without obstruction or gangrene Marybel Loaiza DO [address] [place] [address] [address] [place] [address] [facility] [address] [place] [phone] Referral ID Status Reason Start Date Expiration Date V isits Requested Visits Authorized [id number] Closed Consult, Test & Treat PCP Updated and/or Approved 07/16/2022 07/16/2023 6 6 Encounter Details Date Type Department Care Team (Late st Contact Info) Description 07/16/2022 Transcribe Orders eDH Incoming Referrals [phone] Marybel Loaiza DO [address] [place] [address] [address] [place], [place] [id number] Incisional hernia, without obstruction or gangrene Social History Tobacco Use Types Packs/Day Years [...] EST TH Visit (TeleHealth) [place] [address] Lashae Lorenzo MD [facility] [place] [address] Scheduled Referrals Name Type Priority Associated Diagnoses Orde r Schedule Referral to General Surgery Outpatient Referral Routine Incisional hernia, without obstruction or gangrene Ordered: 07/16/2022 documented as of this encounter Visit Diagnoses Diagnosis Incisional hernia, without obstruction or gangrene Incisional hernia without mention of obstruction or gangrene documented in this encounter Care Teams Blood Bank Booking Clerk Relationship Specialty Start Date End Date Grant Lindsey MD PCP - General Family Medicine 02/25/19 documented as of this encounter
--- OUTSIDE RECORDS SUMMARY | 2024-01-23 00:32 | XMS_ITS | Clinical Summary ---
Author Organization [facility] Address [facility] [place] [address] Care Team Providers Care Dramatic Director Name Role Phone Grant Lindsey MD Primary Care Provider [phone] Allergies Active Allergy Reactions Criticality Noted Date Comments Adhesive 06/11/2019 Medical tape causes itching and rash. Paper tape and tegaderm ar okay Amoxicillin 06/25/2018 Can't remember reaction Amoxicillin-Pot Clavulanate Nausea Only Medium Aspirin Nausea And Vomiting Bacitracin Nausea Only Medium Celecoxib Hives 06/14/2019 Gramicidin D Nausea Only Medium Lactase 06/25/2018 Lactose Other (See Comments) 07/30/2010 GI Upset Neomycin Nausea Only,Rash Medium 06/14/2019 Neomycin Sulfate Nausea Only Medium Gjprxgdd-Cxlnlcjqshw-Yc lymyxnb 06/25/2018 Nausea and rash Polymyxin B Nausea Only Medium Medications Medication Sig Dispensed Refills Start Date End Date Status Loratadine (Claritin Reditabs) 5 mg disintegrating tablet Take 5 mg by mouth daily. Active albuterol sulfate 90 mcg/actuation Aerosol Powdr Breath Activated Inhale 180 mcg into the lungs 4 times daily as needed. Active gabapentin (NEURONTIN) 800 mg Tablet Take 800 mg by mouth 3 times daily. Active docusate sodium (COLACE) 100 mg Capsule Take 100 mg by mouth as needed for Constipation. Active pantoprazole (PROTONIX) 40 mg Tablet, Delayed Release (E.C.) Take 40 mg by mouth daily. Active famotidine (Pepcid) 20 mg Tablet Take 20 mg by mouth Twice daily. Active furosemide (Lasix) 20 mg Tablet Take 20 mg by mouth Daily. 11/21/2019 Active escitalopram (Lexapro) 20 mg Tablet Take 20 mg by mouth 2 times daily. Takes 20 mg in AM and 10 mg in PM 05/29/2022 Active zonisamide (Zonegran) 100 mg Capsule Take 100 mg by mouth nightly. 05/29/2022 Active traZODone (Desyrel) 50 mg tablet Take 50 mg by mouth nightly. Active mirtazapine (Remeron) 15 mg Tablet Take 15 mg by mouth nightly. 05/29/2022 Active metFORMIN (Glucophage) 1,000 mg Tablet 1,000 mg 2 times daily (with meals). 05/07/2022 Active Symbicort 160-4.5 mcg/actuation HFA Aerosol Inhaler Inhale 2 puffs into the lungs 2 times daily. 05/13/2022 Active carvediloL (Coreg) 6.25 mg tablet Take 6.25 mg by mouth 2 times daily (with meals). Active varenicline (Chantix) 1 mg tablet Take 1 mg by mouth 2 times daily. Active oxyCODONE (Roxicodone) 5 mg tablet Take 1 tablet by mouth every 6 hours as needed for Pain. 12 tablet 01/18/2023 Active Active Problems Problem Noted Date Diagnosed Date Ventral incisional hernia 01/17/2023 Obesity (BMI 30-39.9) 10/16/2017 Smokes 10/16/2017 Overview (10/16/2017): She reports smoking <1/2 ppd to >2 ppd. CVA (cerebral vascular accident) 10/16/2017 Overview (10/16/2017): ~August 2017. Describes left-sided numbness of face, arm, leg--now resolved. Alcoholism in remission 10/16/2017 Overview (10/16/2017): Reports abstaining since ~ Apr 2017. 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 Neck pain 07/30/2010 Overview (07/30/2010): With right upper extremity pain. Left elbow pain 07/30/2010 Asthma 07/30/2010 Chronic low back pain 07/30/2010 Restless leg syndrome 07/30/2010 Acid reflux 07/30/2010 Learning disability 07/30/2010 SOCORRO (obstructive sleep apnea) GERD (gastroesophageal reflux disease) Hyperlipidemia Immunizations Name Administration Dates Next Due Influenza PF, Split 05/06/2013 Influenza Vaccine, Whole 02/25/2008 Pneumococcal 23-Valent Polysaccharide (Pneumovax 23) 05/06/2013 Family History Medical History Relation Comments High Cholesterol Brother 2 Hypertension Brother 3 Hypertension Father Glaucoma Maternal Aunt Cancer Maternal Grandmother Diabetes Maternal Grandmother Diabetes Mother Heart Failure Mother High Cholesterol Mother Hypertension Mother Cancer Paternal Grandfather Relation Status Comments Brother 1 Alive age 53, HTN, hyp erlipidemia Brother 2 Brother 3 Daughter 1 Alive age 31, learning disability Daughter 2 Alive age 29 Daughter 3 Alive age 27 Father Alive age 77, HTN, Grandchild 1 Alive age 8, learning disability Grandchild 2 Alive age 5, ADHD Maternal Aunt Maternal Grandfather (Age 20's) at war Maternal Grandmother (Age 82) diabetes, cancer Mother Alive age 73, diabetes , heart disease, MS Paternal Grandfather (Age 74) lung canc er & prostate cancer Paternal Grandmother (Age 84) old age Social History Tobacco Use Types Packs/Day Years [...] on file Sexual Orientation Not on file Last Filed Vital Signs Vital Sign Reading Time Taken Comments Blood Pressure 142/69 02/17/2023 2:56 PM EST Pulse 85 02/17/2023 2:56 PM EST Temperature 36.3 ??C (97.3 ??F) 02/17/2023 2:56 PM ES T Respiratory Rate 18 02/17/2023 2:56 PM EST Oxygen Saturation 97% 02/17/2023 2:56 PM EST Inhaled Oxygen Concentration - - Weight 110.1 kg (242 lb 12.8 oz) 02/17/2023 2:56 PM EST Height 165.1 cm (5' 5) 01/17/2023 10:3 6 AM EDT Body Mass Index 40.4 01/17/2023 10:36 AM EDT Plan of Treatment Upcoming Encounters Date Type Department Care Team (Late st Contact Info) Description 02/27/2024 2:45 PM EST TH Visit (TeleHealth) [place] [address] Lashae Lorenzo MD [facility] [place] [address] Health Maintenance Due Date Last Done Comments CT Colonography 1960 FIT DNA 1960 FIT 1960 Sigmoidoscopy 1960 HIV screen 1978 Hepatitis C Screening 1978 Tetanus/Diphtheria/Pertussis Vaccines (1 - Tdap) 08/22/1979 HPV test 1990 PAP Smear 1990 Breast Cancer Share Decision Needed 2000 Breast Cancer screening 2000 Zoster vaccine (1 of 2) 2010 Pneumococcal Vaccine: At-Ris k 5-64yrs (2 of 2 - PCV) 05/06/2014 05/06/2013 Colonoscopy 01/27/2019 01/27/2014, 01/12, 2012, Additional history exists Colorectal Cancer Screening 01/27/2019 Lipid Screening 08/29/2020 08/30/2015, 09/18/2012 Covid-19 Vaccine (1 - 2022-2 4 season) 2023 Influenza (Flu) vaccine (1 o f 1 - Influenza standard series) 12/14/2023 05/06/2013, 02/25/2008 Sigmoidoscopy (10 year) with FIT yearly 01/28/2024 01/27/2014, 01/27/2014, 2012, Additional history exists Diabetes Screening (HgbA1C o r Glucose) 01/18/2026 01/18/2023, 01/17/2023, 08/19/2022, Additional history exists Medical Devices Implanted Type Area Product Builder Device Identifier Shelf Expiration Date Model / Serial / Lot Mesh Hernia [id number] Synthetic Rectangle Poly Progrip ([id number]) - [id number] Implanted:Qty : 1 on 01/17/2023 by Lashae Lorenzo MD at [facility] IMPLANTS N/A: Abdomen [email or web address] - [employer] 07/12/2025 [id number] / / [id number] Procedures Procedure Name Priority Date/Time Associated Diagnosis Comments BASIC METABOLIC PANEL Routine 01/18/2023 12:40 AM EDT LIPID PANEL (REFLEX DIRECT LDL) Routine 08/30/2015 5:50 PM EDT Hepatic cirrhosis, unspecified hepatic cirrhosis type COLONOSCOPY Routine 01/27/2014 8:59 AM EDT from Last 3 Months or Most Recently Relevant to Health Maintenance Results * (ABNORMAL) Basic Metabolic Panel (non-fasting) (01/18/2023 12:40 AM EDT) Glucose 118 65 - 199 mg/dL [facility] Comment:Diabetes: >=200 mg/d L plus symptoms Blood Urea Nitrogen 8 8 - 18 mg/dL [facility] Creatinine 0.61(L) 0.70 - 1.20 mg/dL [facility] Sodium 140 135 - 145 mmol/L [facility] Potassium 3.9 3.5 - 5.0 mmol/L [facility] Comment: Please note: ??Patients with WBC >100,000 may have falsely elevated Potassium levels. ??For accurate Potassium quantification in these patients send serum separator tube (gold top) for subsequent determinations. ??Contact the Clinical Chemistry Laboratory if there are any questions. Chloride 102 98 - 107 mmol/L [facility] Carbon Dioxide 26 22 - 31 mmol/L [facility] Anion Gap 12 5 - 15 mmol/L [facility] Calcium 8.9 8.5 - 10.5 mg/dL [facility] Est Glomerular Filtration Rate 101 >=60 mL/min/1. 73 m?? [facility] Comment: This patient's estimated GFR was [...] Moreira MD CHEMISTRY ORDERABLES Performing Organization Address City/State/[facility] Co de Phone Number [facility] [place] [address] * (ABNORMAL) Lipid panel (fasting) (08/30/2015 5:50 PM EDT) [facility] Cholesterol, Total 161 <=199 mg/dL [facility] Comment: Recommendations of the NCEP Adult Treatment Panel for the following risk cutoff thresholds for the [place] population: Desirable: <200 mg/dL Borderline High: 200-239 mg/dL High: > or = 240 mg/dL Triglyceride 157(H) <=149 mg/dL [facility] Comment: Reference Range: Normal triglycerides: ??<150 mg/dL Borderline high: ??150-199 mg/dL High: ??200-499 mg/dL Very high: ??>zn=655 mg/dL YAMILEX 2001; 285(19):2662-9944 HDL Cholesterol 39(L) >=40 mg/dL [facility] Comment: Reference range: ??Low HDL: ?? < 40 mg/dL ??Normal: ?40-60 mg/dL ??Desirable: > 60 mg/dL YAMILEX 2001; 285(19):3172-2868 LDL Cholesterol 91 <=99 mg/dL [facility] Comment: Reference range: ?? Optimal: ?<100 mg/dL ?? Near Optimal/Above Optimal: ?? 100-129 mg/dL ?? Borderline high: ?130-159 mg/dL ?? High: ? 160-189 mg/dL ?? Very high: ?>mb=604 mg/dL YAMILEX 2001: 285(19):0455-6484 Cholesterol/HDL Ratio 4.1 ratio [facility] Comment: A Cholesterol to HDL ratio below 4:1 is desirable. ??Studies suggest that increased CAD risk occurs at ratios above 5 for females and above 6 for men. ? Canadian Heart Association ??(http://www.americanheart.org) ? Sherry Int Med, 1994; 121:641 ? AM J Med, 1998; 105(1A):48S Blood specimen (specimen) 08/30/2015 5:50 PM EDT 08/30/2015 5:56 PM EDT Narrative Resulting Agency Comment Spec In Lab Ashley Salomon MD CHEMISTRY ORDERABLES [facility] [place] [address] * COLONOSCOPY (01/27/2014 8:59 AM EDT) COLONOSCOPY [facility] Endoscopy ___ Patient Name: Kallie Darling ? Procedure Date: 01/27/2014 8:59 AM ? Date of : 1960 ? Age: 53 ? Order #: [id number] ? ___ Procedure: ? Colonoscopy Indications: ? Screening for colorectal malignant ? neoplasm; patient with coincidental ? acute diarrhea following recent ? antibiotics for pneumonia. Providers: ? Sana Taveras MD, Kaila Sanchez, ? RN, Mala Grant Referring MD: ?Jennie Resendiz MD Medicines: ? Midazolam 4 mg IV, Fentanyl 150 ? micrograms IV Complications: ? No immediate complications. ___ Procedure: ? Pre-Anesthesia Assessment: ? - Prior to the procedure, a History ? and Physical was performed, and ? patient medications and allergies ? were reviewed. The patient is ? competent. The risks and benefits of ? the procedure and the sedation ? options and risks were discussed with ? the patient. All questions were ? answered and informed consent was ? obtained. Patient identification and ? proposed procedure were verified by ? the physician in the pre-procedure ? area in the endoscopy suite. Mental ? Status Examination: alert and ? oriented. Airway Examination: normal ? oropharyngeal airway and neck ? mobility. Respiratory Examination: ? clear to auscultation. CV ? Examination: normal. ASA Grade ? Assessment: II - A patient with mild ? systemic disease. After reviewing the ? risks and benefits, the patient was ? deemed in satisfactory condition to ? undergo the procedure. The anesthesia ? plan was to use moderate sedation / ? analgesia (conscious sedation). ? Immediately prior to administration ? of medications, the patient was ? re-assessed for adequacy to receive ? sedatives. The heart rate, ? respiratory rate, oxygen saturations, ? blood pressure, adequacy of pulmonary ? ventilation, and response to care ? were monitored throughout the ? procedure. The physical status of the ? patient was re-assessed after the ? procedure. ? The procedure, indications, benefits, ? risks and alternatives were explained ? to the patient. Specifically ? discussed were potential ? complications including, but not ? limited to, bleeding, perforation, ? infection, missing a cancer, and ? adverse medication reactions. The ? patient was placed in the left ? lateral decubitus position, and a ? digital rectal exam was performed. ? The Colonoscope was inserted in the ? anus and under direct visualization, ? advanced to the terminal ileum, with ? identification of the appendiceal ? orifice and IC valve. Careful ? inspection was made as the ? colonoscope was withdrawn. The ? colonoscopy was performed without ? difficulty. The patient tolerated the ? procedure well. The quality of the ? bowel preparation was good. ? Findings: ? External hemorrhoids were found, and they were small. ? The entire colon was subtly granular in appearance ? with slightly diminished vascularity and scattered ? pinpoint erosions in the cecum and distal ascending ? colon. Along the IC valve there were two focal ? shallow ulcers. Biopsies were taken from the R and ? the L colon and sent separately to pathology. Stool ? aspirated for C. difficile testing. ? A sessile polyp was found in the sigmoid colon. The ? polyp was 5 mm in size. The polyp was removed with a ? hot snare. Resection and retrieval were complete. ? The terminal ileum appeared normal. ? Impression: ?- Mild diffuse colitis with pinpoint ? erosions in the R colon and two focal ? shallow ulcers on the IC valve. This ? may be related to a recent infectious ? diarrhea. While not the classic ? endoscopic appearance of C. ? difficile, a minority of patients ? will have pseudomembranous colitis. ? Given her history of recent ? antibiotics, this is also possible. ? - One 5 mm polyp in the sigmoid ? colon. Resected and retrieved. ? - The examined portion of the ileum ? was normal. ? - External hemorrhoids. Recommendation: ?- Await pathology result and stool ? for Clostridium difficile toxin. ? - Await pathology results to ? determine the appropriate interval ? until the next exam. The patient will ? be notified by mail. If results are ? not received within three weeks, ? please call our office at ? [phone]. ? _ L. 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 Advance Directives and Debora [email or web address] Will 11/10/2017 2:21 PM * Attempt Cardiopulmonary Resuscitation - Inpatient (Latest Code Status on File) Date Activated Date Inactivated Comments 01/17/2023 6:37 PM 01/18/2023 3:04 PM Question Answer Comments Code Status decision made by: Patient * Attempt Cardiopulmonary Resuscitation - Inpatient Date Activated Date Inactivated Comments 01/17/2023 10:57 AM 01/17/2023 6:37 PM Question Answer Comments Code Status decision made by: Patient * Full Code Date Activated Date Inactivated Comments 11/10/2017 4:24 PM 11/11/2017 12:45 PM Question Answer Comments Does patient have capacity to make decision: Yes Healthcare Agents on File Name Relationship Healthcare Agent [facility] p Communication Cristel José Sibling Health Care Agent Asiya Weston [facility] Health Care Agent Care Teams Dramatic Director Relationship Specialty Start Date End Date Grant Lindsey MD PCP - General Family Medicine 02/25/19
--- OUTSIDE RECORDS SUMMARY | 2024-01-23 00:32 | XMS_ITS | Encounter Summary ---
[place] [address] Care Team Providers Care Field Coil Winder Name Role Phone Grant Lindsey MD Primary Care Provider [phone] Encounter Details Date Type Department Care Team (Latest Contact Info) Description 12/05/2022 11:45 AM EDT TH Visit (TeleHealth) [place] [id number] Lashae Lorenzo MD [facility] [place] [address] Ventral hernia without obstruction or gangrene Social History Tobacco [...] Progress Notes * Lashae Lorenzo MD - 12/05/2022 11:45 AM EDT I spoke with Ms. Darling today regarding her ventral hernia. Nicotine screen was negative. She says it is extremely bothersome and still wants to get it fixed despite the high risk of surgery. We havepreviously discussed the risk of bleeding, infection, liver failure, respiratory failure, heart problems and . She has expressed understanding of these risks and a desire to proceed. documented in this encounter Miscellaneous Notes * Addendum Note - Opal Rubio RN - 12/05/2022 11:45 AM EDTAddended by: OPAL RUBIO on: 01/07/2023 03:21 PM Modules accepted: Orders documented in this encounter Plan of Treatment Upcoming Encounters Date Type Department Care Team (Late st Contact Info) Description 02/27/2024 2:45 PM EST TH Visit (TeleHealth) [place] [address] Lashae Lorenzo MD [facility] [place] [address] Scheduled Orders Name Type Priority Associated Diagnoses Orde r Schedule SURGICAL CASE REQUEST NO POSTOP PAIN: LAPAROSCOPIC REPAIR ANT. ABDOMINAL HERNIA(S) (IE, EPIGASTRIC, INCISIONAL, VENTRAL, UMBILICAL, SPIGELIAN), INITIAL, W-WO MESH; LESS THAN 3 CM, INCARCERATED OR STRANGULATED (WRVU 8.46) Procedures Routine One Time for 1 Occurrences starting 12/05/2022 until 12/05/2022 documented as of this encounter Visit Diagnoses Diagnosis Ventral hernia without obstruction or gangrene Ventral hernia, unspecified, without mention of obstruction or gangrene documented in this encounter Care Teams Field Coil Winder Relationship Specialty Start Date End Date Grant Lindsey MD PCP - General Family Medicine 02/25/19 documented as of this encounter
--- OUTSIDE RECORDS SUMMARY | 2024-01-23 00:32 | XMS_ITS | Encounter Summary ---
Author Organization [facility] [place] [address] Care Team Providers Care Um Nurse Name Role Phone Grant Lindsey MD Primary Care Provider [phone] Encounter Details Date Type Department Care Team (Late st Contact Info) Description 02/10/2022 Orders [place] [phone] Saniya Thomson APRN [facility] [place] [address] Hepatic cirrhosis, unspecified hepatic cirrhosis type, unspecified [...] EST TH Visit (TeleHealth) [place] [address] Lashae Lorenzo MD [facility] DR GENERAL SURGERY [place] [id number] documented as of this encounter Results * (ABNORMAL) Prothrombin Time (05/30/2022 10:44 AM EST) Prothrombin Time 13.6(H) 9.4 - 12.5 sec [facility] International Normalization Ratio 1.2 [facility] Comment: An INR <2.0 indicates adequate procoagulant activity for hemostasis in most patients without underlying bleeding disorders, though the INR may not adequately reflect hemostatic capacity in patients with liver disease and synthetic impairment. The recommended target INR range for therapeutic anticoagulation is 2.0 ? 3.0 for most applications, though lower and higher ranges may be appropriate depending on clinical circumstances. Blood 05/30/2022 10:4 4 AM EST 05/30/2022 10:47 AM EST Narrative Resulting Agency Comment Spec In Lab Saniya Thomson APRN HEMATOLOGY ORDERAB LES [facility] [address] [place] [address] * (ABNORMAL) Comprehensive metabolic panel (non-fasting) (05/30/2022 10:44 AM EST) Glucose 111 65 - 199 mg/dL [facility] Comment:Diabetes: >=200 mg/d L plus symptoms Blood Urea Nitrogen 9 8 - 18 mg/dL [facility] Creatinine 0.74 0.70 - 1.20 mg/dL [facility] Sodium 141 135 - 145 mmol/L [facility] Potassium 3.8 3.5 - 5.0 mmol/L [facility] Comment: Please note: ??Patients with WBC >100,000 may have falsely elevated Potassium levels. ??For accurate Potassium quantification in these patients send serum separator tube (gold top) for subsequent determinations. ??Contact the Clinical Chemistry Laboratory if there are any questions. Chloride 105 98 - 107 mmol/L [facility] Carbon Dioxide 23 22 - 31 mmol/L [facility] Anion Gap 13 5 - 15 mmol/L [facility] Calcium 8.9 8.5 - 10.5 mg/dL [facility] Protein, Total 6.9 6.1 - 8.0 g/dL [facility] Albumin 4.4 3.2 - 5.2 g/dL [facility] Aspartate Aminotransferase 34(H) 0 - 30 unit/L [facility] Alanine Aminotransferase 21 0 - 30 unit/L [facility] Alkaline Phosphatase 140(H) 35 - 105 unit/L [facility] Bilirubin, Total 0.3 0.2 - 1.3 mg/dL [facility] Est Glomerular Filtration Rate 92 >=60 mL/min/1. 73 m?? [facility] Comment: This patient's estimated GFR was [...] and symptoms in addition to eGFR. Blood 05/30/2022 10:4 4 AM EST 05/30/2022 10:47 AM EST Narrative Resulting Agency Comment Spec In Lab Saniya Thomson APRN CHEMISTRY ORDERABL ES [facility] [place] [address] * US Abdomen Limited Hepatology Protocol (05/30/2022 [...] who have questions, please contact the health lpn care manager that requested your imaging first. ?Primo Guthrie, Staff Physician Electronically Signed Final Report ?? 05/30/2022 11:49 am Narrative 05/30/2022 11:50 AM EST Abdominal ? (Signed Final 05/30/2022 11:49 am) PATIENT INFO: ID #: ? [id number] ?: ??[birth year] (61 yrs)(F) Name: ? KALLIE Villalobos ? Visit Date: 05/30/2022 09:14 am PERFORMED BY: Performed By: ? Grace Jones RDMS Attending: ?Primo Guthrie MD Referred By: ?SANIYA THOMSON Location: ? [place] [facility] - Abdominal ?[id number] Limited Survey Single Organ or Quadrant - [id number] INDICATIONS: cirrhosis, screen for hcc COMPARISON: US: [...] 05/30/2022 11:49 am) PATIENT INFO: ID #: [id number] : 60 (61 yrs)(F) Name: KALLIE SMART Visit Date: 05/30/2022 09:14 am PERFORMED BY: Performed By: Grace Jones RDMS Attending: Primo Guthrie MD Referred By: SANIYA THOMSON Location: [place] SERVICE(S) PROVIDED: [facility] - Hepatology Protocol - Abdominal [id number] Limited Survey Single Organ or Quadrant - [id number] INDICATIONS: cirrhosis, screen for hcc COMPARISON: US: [...] extrahepatic biliary ductal dilation. 4. No ascites. Electronically signed by: Primo Guthrie MD, [facility] ([phone]), at 05/30/2022 11:42 AM Thank you for letting us participate in the care of this patient. If you are a health care provider and have any questions regarding this report, please contact the number above. For patients who have questions, please contact the health lpn care manager that requested your imaging first. Primo Guthrie, Staff Physician Electronically Signed Final Report 05/30/2022 11:49 am Saniya Thomson APRN IMG US GEN ORDERAB LES documented in this encounter Visit Diagnoses Diagnosis Hepatic cirrhosis, unspecified hepatic cirrhosis type, unspecified whether ascites present Hepatic cirrhosis, unspecified hepatic cirrhosis type, unspecified whether ascites present documented in this encounter Care Teams Um Nurse Relationship Specialty Start Date End Date Grant Lindsey MD PCP - General Family Medicine 02/25/19 documented as of this encounter
--- OUTSIDE RECORDS SUMMARY | 2024-01-23 00:32 | XMS_ITS | Encounter Summary ---
[place] [address] Care Team Providers Care Gear Generator Set Up Operator Name Role Phone Grant Lindsey MD Primary Care Provider [phone] Encounter Details Date Type Department Care Team (Latest Contact Info) Description 10/04/2022 12:30 PM EDT TH Visit (TeleHealth) [place] [phone] Lashae Lorenzo MD [facility] [place] [address] Upper abdominal pain Social History Tobacco Use Types Packs/Day Years [...] Progress Notes * Lashae Lorenzo MD - 10/04/2022 12:30 PM EDT I am following up with Kallie after her nicotine testing. Her nicotine and cotinine tests were positive. She says she hasn't been smoking but has been using a patch. I explained that I would like her to be 8 weeks nicotine free prior to surgery which would mean coming off of the patch. I asked her if she had considered referral to a pain specialist as we had discussed last appointment but she didn't remember this. I asked her to call our office for follow up once she is nicotine free and offthe patches. She will work on this with her PCP. Lashae Lorenzo MD documented in this encounter Plan of Treatment Upcoming Encounters Date Type Department Care Team (Late st Contact Info) Description 02/27/2024 2:45 PM EST TH Visit (TeleHealth) [place] [address] Lashae Lorenzo MD [facility] [place] [address] documented as of this encounter Visit Diagnoses Diagnosis Upper abdominal pain Abdominal pain, other specified site documented in this encounter Care Teams Gear Generator Set Up Operator Relationship Specialty Start Date End Date Grant Lindsey MD PCP - General Family Medicine 02/25/19 documented as of this encounter
--- OUTSIDE RECORDS SUMMARY | 2024-01-23 00:32 | XMS_ITS | Encounter Summary ---
[place] [address] Care Team Providers Care Coordinator Of Placement Name Role Phone Grant Lindsey MD Primary Care Provider [phone] Reason for Referral * Consultation (Routine) - Closed Specialty Diagnoses / Procedures Referred By Contac t Referred To Contact Gastroenterology Diagnoses Gastric varices Portal hypertension Alcoholic cirrhosis, unspecified whether ascites present Anemia, unspecified type Varices/Portal hypertension/ alcholic cirrhosis- Saniya Patient Grant Lindsey MD [address] [place] [address] [place] [address] [facility] [address] Referral ID Status Reason Start Date Expiration Date V isits Requested Visits Authorized [id number] Closed Consult, Test & Treat PCP Updated and/or Approved 01/11/2022 01/11/2023 12 12 Encounter Details Date Type Department Care Team (Late st Contact Info) Description 01/11/2022 Transcribe Orders eDH Incoming Referrals [phone] Grant Lindsey MD [address] [place] [address] [place] [address] Gastric varices; Portal hypertension; Alcoholic cirrhosis, unspecified whether ascites present; Anemia, unspecified type Social History Tobacco Use Types Packs/Day [...] EST TH Visit (TeleHealth) [place] [address] Lashae Lorenzo MD [facility] [place] [address] Scheduled Referrals Name Type Priority Associated Diagnoses Order Schedule Referral to Gastroenterology Outpatient Referral Routine Gastric varices Portal hypertension Alcoholic cirrhosis, unspecified whether ascites present Anemia, unspecified type Ordered: 01/11/2022 documented as of this encounter Visit Diagnoses Diagnosis Gastric varices Varices of other sites Portal hypertension Alcoholic cirrhosis, unspecified whether ascites present Anemia, unspecified type documented in this encounter Care Teams Coordinator Of Placement Relationship Specialty Start Date End Date Grant Lindsey MD PCP - General Family Medicine 02/25/19 documented as of this encounter
--- OUTSIDE RECORDS SUMMARY | 2024-01-23 00:32 | XMS_ITS | Encounter Summary ---
[place] [address] Care Team Providers Care Blade Balancer Name Role Phone Grant Lindsey MD Primary Care Provider [phone] Encounter Details Date Type Department Care Team (Latest Contact Info) Description 05/30/2022 11:15 AM EST Laboratory Appointment Lab [address] [place] [address] Hepatic cirrhosis, unspecified hepatic cirrhosis [...] EST TH Visit (TeleHealth) [place] [address] Lashae Lorenzo MD [facility] GENERAL [place] [address] (work) documented as of this encounter Procedures Procedure Name Priority Date/Time Associated Diagnosis Comments HEMOGRAM Routine 05/30/2022 10:44 AM EST Hepatic cirrhosis, unspecified hepatic cirrhosis type, unspecified whether ascites present DIFFERENTIAL, AUTOMATED Routine 05/30/2022 10:44 AM EST Hepatic cirrhosis, unspecified hepatic cirrhosis type, unspecified whether ascites present HC PROTHROMBIN TIME Routine 05/30/2022 1 0:44 AM EST Hepatic cirrhosis, unspecified hepatic cirrhosis type, unspecified whether ascites present HC CBC,PLT & AUTO DIFF Routine 3 10:44 AM EST Hepatic cirrhosis, unspecified hepatic cirrhosis type, unspecified whether ascites present COMPREHENSIVE METABOLIC PANEL Routine 05/30/2022 10:44 AM EST Hepatic cirrhosis, unspecified hepatic cirrhosis type, unspecified whether ascites present documented in this encounter Results * Differential, Automated (05/30/2022 10:44 AM EST) Neutrophil % 58.7 % [facility] Neutrophil Absolute 2.63 1.70 - 6.10 x10(3)/[facility] Lymph % 30.5 % [facility] Lymphocytes Abs 1.4 0.9 - 3.2 x10(3)/[facility] Monocyte % 7.1 % [facility] Monocyte Abs 0.3 0.3 - 0.9 x10(3)/[facility] Eos % 3.1 % [facility] Eosinophils Abs 0.1 0.0 - 0.4 x10(3)/[facility] Basophil % 0.4 % [facility] Baso Absolute 0.0 0.0 - 0.1 x10(3)/[facility] Immature Gran % 0.20 % [facility] Comment: Immature granulocytes(IG's)percentage and absolute count will include metamyelocytes, myelocytes, and promyelocytes. Blood smears from CBCs yielding IG's will be scanned manually for concordance. If this scan disagrees with the automated IG or if promyelocytes are noted, a manual differential will be performed. Immature Gran Absolute 0.01 0.00 - 0.04 x10(3)/mcL [facility] Blood 05/30/2022 10:4 4 AM EST 05/30/2022 10:47 AM EST Narrative Resulting Agency Comment Spec In Lab Saniya Davis PERSONALIZED LIVING ASSISTANT HEMATOLOGY ORDERAB LES Performing Organization Address City/[facility] Co de Phone Number [facility] [place] [address] * (ABNORMAL) Hemogram (05/30/2022 10:44 AM EST) White Blood Cell 4.5 4.0 - 9.5 x10(3)/mc L [facility] Red Blood Cell 4.10 4.00 - 5.21 x10(6)/mc L [facility] Hemoglobin 11.3(L) 11.7 - 15.5 g/dL [facility] Hematocrit 35.2(L) 35.7 - 45.8 % [facility] Mean Cell Volume 85.9 82.6 - 94.4 fL [facility] Mean Cell Hemoglobin 27.6 27.1 - 32.0 pg [facility] Mean Cell Hemoglobin Concentration 32.1 31.7 - 35.0 g/dL [facility] Platelet 110(L) 145 - 357 x10(3)/mc L [facility] RDW Standard Deviation 45.7 37.0 - 46.0 fL [facility] RDW coefficient of variation 14.8(H) 11.5 - 14.1 % [facility] Mean Platelet Volume 10.0 7.6 - 12.9 fL [facility] NRBC% auto 0.0 % [facility] NRBC Absolute 0.000 0.000 - 0.000 x10(3)/mc L [facility] Blood 05/30/2022 10:4 4 AM EST 05/30/2022 10:47 AM EST Narrative Resulting Agency Comment Spec In Lab Snaiya Davis PERSONALIZED LIVING ASSISTANT HEMATOLOGY ORDERAB LES Performing Organization Address City/[facility] Co de Phone Number [facility] [place] [address] * (ABNORMAL) Comprehensive metabolic panel (non-fasting) (05/30/2022 10:44 AM EST) Glucose 111 65 - 199 mg/dL [facility] Comment:Diabetes: >=200 mg/d L plus symptoms Blood Urea Nitrogen 9 8 - 18 mg/dL [facility] Creatinine 0.74 0.70 - 1.20 mg/dL [facility] Sodium 141 135 - 145 mmol/L [facility] Potassium 3.8 3.5 - 5.0 mmol/L [facility] Comment: Please note: ??Patients with WBC >100,000 may have falsely elevated Potassium levels. ??For accurate Potassium quantification in these patients send serum separator tube (gold top) for subsequent determinations. ??Contact the Clinical Chemistry Laboratory if there are any questions. Chloride 105 98 - 107 mmol/L [facility] Carbon Dioxide 23 22 - 31 mmol/L [facility] Anion Gap 13 5 - 15 mmol/L [facility] Calcium 8.9 8.5 - 10.5 mg/dL [facility] Protein, Total 6.9 6.1 - 8.0 g/dL [facility] Albumin 4.4 3.2 - 5.2 g/dL [facility] Aspartate Aminotransferase 34(H) 0 - 30 unit/L [facility] Alanine Aminotransferase 21 0 - 30 unit/L [facility] Alkaline Phosphatase 140(H) 35 - 105 unit/L [facility] Bilirubin, Total 0.3 0.2 - 1.3 mg/dL [facility] Est Glomerular Filtration Rate 92 >=60 mL/min/1. 73 m?? [facility] Comment: This patient's estimated GFR [...] Resulting Agency Comment Spec In Lab Saniya Davis APRN CHEMISTRY ORDERABL ES Performing Organization Address [facility] de Phone Number [facility] [place] [address] * (ABNORMAL) Prothrombin Time (05/30/2022 10:44 AM EST) Prothrombin Time 13.6(H) 9.4 - 12.5 sec [facility] International Normalization Ratio 1.2 [facility] Comment: An INR <2.0 indicates adequate [...] Resulting Agency Comment Spec In Lab Saniya Davis APRN HEMATOLOGY ORDERAB LES Performing Organization Address [facility] Co de Phone Number [facility] [place] [address] documented in this encounter Visit Diagnoses Diagnosis Hepatic cirrhosis, unspecified hepatic cirrhosis type, unspecified whether ascites present documented in this encounter Care Teams Blade Balancer Relationship Specialty Start Date End Date Grant Lindsey MD PCP - General Family Medicine 02/25/19 documented as of this encounter
--- OUTSIDE RECORDS SUMMARY | 2024-01-23 00:32 | XMS_ITS | Encounter Summary ---
Author Organization [facility] [place] [address] Care Team Providers Care Link Trainer Name Role Phone Grant Lindsey MD Primary Care Provider Encounter Details Date Type Department Care Team (Latest Contact Info) Description 05/30/2022 Travel Social History Tobacco Use Types Packs/Day [...] EST TH Visit (TeleHealth) [place] [phone] Lashae Lorenzo MD [facility] [place] [address] documented as of this encounter Visit Diagnoses Not on filedocumented in this encounter Care Teams Link Trainer Relationship Specialty Start Date End Date Grant Lindsey MD PCP - General Family Medicine 02/25/19 documented as of this encounter
--- OUTSIDE RECORDS SUMMARY | 2024-01-23 00:32 | XMS_ITS | Encounter Summary ---
[place] [address] Care Team Providers Care Manager Infusion Name Role Phone Grant Lindsey MD Primary Care Provider [phone] Encounter Details Date Type Department Care Team (Late st Contact Info) Description 07/15/2023 Transcribe Orders eD Incoming Referrals [phone] Gilmar Pearson PA [address] [place], [place] [id number] Social History Tobacco Use Types Packs/Day Years Used Date Smoking Tobacco: Former Cigarettes 0.3 30 1 - 01/17/2023 Smokeless Tobacco: Never Alcohol Use Standard Drinks/Week Comments Not Currently 0 (1 standard drink = 0.6 oz pur e alcohol) last drink was 2019 [facility] Inpatient Questions Answer Date Recorded Does [...] EST TH Visit (TeleHealth) [place] [address] Lashae Lorenzo MD [facility] [place] [address] documented as of this encounter Visit Diagnoses Not on filedocumented in this encounter Care Teams Manager Infusion Relationship Specialty Start Date End Date Grant Lindsey MD PCP - General Family Medicine 02/25/19 documented as of this encounter
--- OUTSIDE RECORDS SUMMARY | 2024-01-23 00:32 | XMS_ITS | Encounter Summary ---
[place] [address] Care Team Providers Care Negative Turner Name Role Phone Grant Lindsey MD Primary Care Provider [phone] Reason for Visit * Reason Comments Follow Up Surgery Encounter Details Date Type Department Care Team (Late st Contact Info) Description 02/17/2023 2:45 PM EST Office [place] [phone] Lashae Lorenzo MD [facility] [address] Hx of ventral hernia repair Social History Tobacco Use Types Packs/Day Years Used Date Smoking Tobacco: Former Cigarettes 0.3 30 1 - 01/17/2023 Smokeless Tobacco: Never Tobacco Cessation:Counseling Given: Not Answered Alcohol Use Standard Drinks/Week Comments Not Currently 0 (1 standard drink = 0.6 oz pur e alcohol) last drink was 2018 [facility] Inpatient Questions Answer Date Recorded Does Anyone [...] 12.8 oz) 02/17/2023 2:56 PM EST Height - - Body Mass Index 40.4 01/17/2023 10:36 AM EDT documented in this encounter Progress Notes * Lashae Lorenzo MD - 02/17/2023 2:45 PM EST [facility] General Surgery Postoperative Follow up Subjective: Kallie Darling is a 62 y.o. female who presents today for follow up after a laparoscopic incarcerated ventral hernia repair with mesh 01/17/23. She took mainly tylenol for pain. She did have some constipation but this has improved. She is still having trouble with bending over. Objective: Physical Exam: Vital Signs: BP 142/69 Pulse 85 Temp 36.3 ??C (97.3 ??F) (Skin) Resp 18 Wt 110.1 kg (242 lb12.8 oz) SpO2 97% BMI 40.40 kg/m?? General appearance: Alert and oriented, appears stated age, well groomed HEENT: Normocephalic, atraumatic Heart: Regular rate Lungs: Symmetric chest rise, no distress Abdomen: Non distended, soft, non tender to palpation, incisions are clean and intact. No recurrenthernia palpable. Extremities: Moves all four extremities, no gross deformity. Assessment and Recommendation: A 62 y.o.-old female s/p laparoscopic incarcerated ventral hernia repair with mesh 01/17/23. Kallie Darling is recovering well and may follow up as needed in the future but will plan a 1 year telephone call. Discussed no lifting restrictions at this point but going slow with increasing activity. Lashae Lorenzo MD General Surgery Minimally Invasive Surgery [phone] documented in this encounter Plan of Treatment Upcoming Encounters Date Type Department Care Team (Late st Contact Info) Description 02/27/2024 2:45 PM EST TH Visit (TeleHealth) [place] [address] Lashae Lorenzo MD [facility] [address] documented as of this encounter Visit Diagnoses Diagnosis Hx of ventral hernia repair Personal history of surgery to other organs documented in this encounter Care Teams Negative Turner Relationship Specialty Start Date End Date Grant Lindsey MD PCP - General Family Medicine 02/25/19 documented as of this encounter
--- OUTSIDE RECORDS SUMMARY | 2024-01-23 00:32 | XMS_ITS | Encounter Summary ---
[place] [address] Care Team Providers Care Press Loader Name Role Phone Grant Lindesy MD Primary Care Provider [phone] Reason for Referral * Consultation (Routine) - Closed Specialty Diagnoses / Procedures Referred By Nicol sparks Referred To Contact Podiatry Diagnoses Pain in right foot Procedures VASCULAR SURGERY Gilmar Pearson PA [address] [place] [address] [facility] [place] [address] Referral ID Status Reason Start Date Expiration Date V isits Requested Visits Authorized [id number] Closed Consult, Test & Treat PCP Updated and/or Approved 07/15/2023 07/14/2024 6 6 Encounter Details Date Type Department Care Team (Late st Contact Info) Description 07/15/2023 Transcribe Orders eDH Incoming Referrals [phone] Gilmar Pearson PA [address] [place] [address] Pain in right foot Social History Tobacco Use Types Packs/Day Years Used Date Smoking Tobacco: Former Cigarettes 0.3 30 1 - 01/17/2023 Smokeless Tobacco: Never Alcohol Use Standard Drinks/Week Comments Not Currently 0 (1 standard drink = 0.6 oz pur e alcohol) last drink was 2018 [facility] Inpatient Questions Answer Date Recorded Does [...] EST TH Visit (TeleHealth) [place] [address] Lashae Lorenzo MD [facility] [place] [address] Scheduled Referrals Name Type Priority Associated Diagnoses Orde r Schedule Referral to General Surgery Outpatient Referral Routine Pain in right foot Ordered: 07/15/2023 documented as of this encounter Visit Diagnoses Diagnosis Pain in right foot Pain in limb documented in this encounter Care Teams Press Loader Relationship Specialty Start Date End Date Grant Lindsey MD PCP - General Family Medicine 02/25/19 documented as of this encounter
--- OUTSIDE RECORDS SUMMARY | 2024-01-23 00:32 | XMS_ITS | Encounter Summary ---
[place] [address] Care Team Providers Care Medical Scientific Officer Name Role Phone Grant Lindsey MD Primary Care Provider [phone] Reason for Visit * Auth/Cert (Routine) Specialty [...] Lashae Lorenzo MD [facility] [place] [address] [facility] Referral ID Status Reason Start Date Expiration Date Visits Re quested Visits Authorized [id number] 1 1 Encounter Details Date Type Department Care Team (Latest Contact Info) Description 01/17/2023 9:39 AM EDT - 01/18/2023 12:53 PM EDT Hospital Encounter [place] [address] Lashae Lorenzo MD [facility] [place] [address] Hepatic cirrhosis, unspecified hepatic cirrhosis type, unspecified [...] Sign Reading Time Taken Comments Blood Pressure 140/79 01/18/2023 7:38 AM EDT Pulse 70 01/17/2023 3:15 PM EDT Temperature 37 ??C (98.6 ??F) 01/18/2023 4:42 AM EDT Respiratory Rate 18 01/18/2023 7:38 AM EDT Oxygen Saturation 93% 01/18/2023 7:38 AM EDT Inhaled Oxygen Concentration - - [...] Lactase Lactose Other (See Comments) GI Upset Nkfxckrm-Aobltylvuof-Mgwiglvxr Nausea and rash Outpatient Services/Studies: No discharge procedures on file. Scheduled Appointments: Future Appointments and Orders Future Appointments and Orders Future Appointments Provider Department Dept Phone 02/17/2023 2:45 PM Lashae Lorenzo MD General Surgery at [facility] Arrive at: Repairer Recreational Vehicle Area Please dispose of unused excess opioids [...] hours please call the Surgery Clinic at [phone] before 5 PM on weekdays. For questions after hours and on weekends please call the hospital bottling line operator at [phone] and ask for the General Surgery resident repairer recreational vehicle. They may not be familiar with your [...] yourself from the pain. Follow-up: Please call [phone] (clinic number for appointments) to confirm or change the date and time of your appointment. Future Appointments Date Time Provider Department Center 02/17/2023 2:45 PM Lashae Lorenzo MD [facility] SURG [facility] General Instructions None Future Appointments and Orders Future Appointments and Orders Future Appointments Provider Department Dept Phone 02/17/2023 2:45 PM Lashae Lorenzo MD General Surgery at [facility] Arrive at: Repairer Recreational Vehicle Area [phone] [phone] Please dispose of unused excess opioids before your appointment or bring them with you to the appointment and we will help you dispose of them correctly. Signed: Ramón Hendrix MD 01/18/23 Primary [place] Physician: MD [address] / [place] [address] documented in this encounter Discharge Instructions * [...] hours please call the Surgery Clinic at [phone] before 5 PM on weekdays. For questions after hours and on weekends please call the hospital bottling line operator at [phone] and ask for the General Surgery resident repairer recreational vehicle. They may not be familiar with your [...] yourself from the pain. Follow-up: Please call [phone] (clinic number for appointments) to confirm or change the date and time of your appointment. Future Appointments Date Time Provider Department Center 02/17/2023 2:45 PM Lashae Lorenzo MD [facility] SURG [facility] documented in this encounter Medications at Time [...] Fonseca RN - 01/18/2023 12:53 PM EDT [facility] Short Stay Unit Discharge Note All relevant [...] to assist with transportation for this patient. Tank Washer added RS to assist with transport for patient. Nursing states that patient is ready for discharge now. Tank Washer called and spoke to patient. Patient states that they can get in and out of a private vehicle. Rs to arrange transport. Lady Briones RN, CM Pager-[phone] * Leo Moreira MD - 01/17/2023 4:53 [...] MD - 01/17/2023 12:03 PM EDT [facility] Operative Note Patient Name: Kallie Darling : [id number] MR#: [id number] Case Date: 01/17/2023 Surgeon: Surgeon(s) and Role: [...] EST TH Visit (TeleHealth) [place] [address] Lashae Lorenzo MD [facility] [place] [address] documented as of this encounter Procedures Procedure [...] Hernia Initial < 3 Cm Incarcerated/Strangula sam ([id number]) 01/17/2023 11:31 AM EDT Ventral hernia POCT [...] Glucose, POC 149 65 - 199 mg/dL [facility] Comment: Supplemental ranges: <140 mg/dL before meals <180 mg/dL all other times of the day Blood 01/18/2023 6:52 AM EDT 01/18/2023 6:52 AM EDT Lashae Lorenzo MD POINT OF CARE TEST O RDERABLES [facility] [place] [address] * Differential, Automated (01/18/2023 12:40 AM EDT) Neutrophil % 60.6 % [facility] Neutrophil Absolute 2.05 1.70 - 6.10 x10(3)/[facility] Lymph % 27.8 % [facility] Lymphocytes Abs 0.9 0.9 - 3.2 x10(3)/[facility] Monocyte % 8.0 % [facility] Monocyte Abs 0.3 0.3 - 0.9 x10(3)/[facility] Eos % 2.7 % [facility] Eosinophils Abs 0.1 0.0 - 0.4 x10(3)/[facility] Basophil % 0.3 % [facility] Baso Absolute 0.0 0.0 - 0.1 x10(3)/[facility] Immature Gran % 0.60 % [facility] Comment: Immature granulocytes(IG's)percentage and absolute count will include metamyelocytes, myelocytes, and promyelocytes. Blood smears from CBCs yielding IG's will be scanned manually for concordance. If this scan disagrees with the automated IG or if promyelocytes are noted, a manual differential will be performed. Immature Gran Absolute 0.02 0.00 - 0.04 x10(3)/[facility] Blood 01/18/2023 12:4 0 AM EDT 01/18/2023 12:47 AM EDT Narrative Resulting Agency Comment Spec In Lab Leo Moreira MD HEMATOLOGY ORDERABLE S [facility] [place] [address] * (ABNORMAL) Hemogram (01/18/2023 12:40 AM EDT) White Blood Cell 3.4(L) 4.0 - 9.5 x10(3)/ L [facility] Red Blood Cell 3.47(L) 4.00 - 5.21 x10(6)/[facility] Hemoglobin 9.4(L) 11.7 - 15.5 g/dL [facility] Hematocrit 30.4(L) 35.7 - 45.8 % [facility] Mean Cell Volume 87.6 82.6 - 94.4 fL [facility] Mean Cell Hemoglobin 27.1 27.1 - 32.0 pg [facility] Mean Cell Hemoglobin Concentration 30.9(L) 31.7 - 35.0 g/dL [facility] Platelet 85(L) 145 - 357 x10(3)/mc L [facility] RDW Standard Deviation 51.1(H) 37.0 - 46.0 fL [facility] RDW coefficient of variation 16.0(H) 11.5 - 14.1 % [facility] Mean Platelet Volume 10.2 7.6 - 12.9 fL [facility] NRBC% auto 0.0 % [facility] NRBC Absolute 0.000 0.000 - 0.000 x10(3)/mc L [facility] Blood 01/18/2023 12:4 0 AM EDT 01/18/2023 12:47 AM EDT Narrative Resulting Agency Comment Spec In Lab Leo Moreira MD HEMATOLOGY ORDERABLE S [facility] [place] [address] * (ABNORMAL) Basic Metabolic Panel (non-fasting) (01/18/2023 12:40 AM EDT) Glucose 118 65 - 199 mg/dL [facility] Comment:Diabetes: >=200 mg/d L plus symptoms Blood Urea Nitrogen 8 8 - 18 mg/dL [facility] Creatinine 0.61(L) 0.70 - 1.20 mg/dL [facility] Sodium 140 135 - 145 mmol/L [facility] Potassium 3.9 3.5 - 5.0 mmol/L [facility] Comment: Please note: ??Patients with WBC >100,000 may have falsely elevated Potassium levels. ??For accurate Potassium quantification in these patients send serum separator tube (gold top) for subsequent determinations. ??Contact the Clinical Chemistry Laboratory if there are any questions. Chloride 102 98 - 107 mmol/L [facility] Carbon Dioxide 26 22 - 31 mmol/L [facility] Anion Gap 12 5 - 15 mmol/L [facility] Calcium 8.9 8.5 - 10.5 mg/dL [facility] Est Glomerular Filtration Rate 101 >=60 mL/min/1. 73 m?? [facility] Comment: This patient's estimated GFR [...] Moreira MD CHEMISTRY ORDERABLES Performing Organization Address City/[facility]/ZIP Co de Phone Number [facility] [place] [address] * POCT Glucose (01/17/2023 10:01 PM EDT) Glucose, POC 149 65 - 199 mg/dL [facility] Comment: Supplemental ranges: <140 mg/dL before meals <180 mg/dL all other times of the day Blood 01/17/2023 10:0 1 PM EDT 01/17/2023 10:01 PM EDT Lashae Lorenzo MD POINT OF CARE TEST O RDERABLES [facility] [place] [address] * POCT Glucose (01/17/2023 5:06 PM EDT) Glucose, POC 158 65 - 199 mg/dL [facility] Comment: Supplemental ranges: <140 mg/dL before meals <180 mg/dL all other times of the day Blood 01/17/2023 5:06 PM EDT 01/17/2023 5:06 PM EDT Lashae Lorenzo MD POINT OF CARE TEST O RDERABLES Performing Organization Address City/[facility]/ZIP Co de Phone Number [facility] [place] [address] * POCT Glucose (01/17/2023 10:48 AM EDT) Glucose, POC 110 65 - 199 mg/dL [facility] Comment: Supplemental ranges: <140 mg/dL before meals <180 mg/dL all other times of the day Blood 01/17/2023 10:4 8 AM EDT 01/17/2023 10:48 AM EDT Lashae Lorenzo MD POINT OF CARE TEST O BEVERAOSWALDO Performing Organization Address [facility] Co de Phone Number [facility] [place] [address] * Differential, Automated (01/17/2023 10:04 AM EDT) Neutrophil % 57.3 % [facility] Neutrophil Absolute 2.11 1.70 - 6.10 x10(3)/[facility] Lymph % 31.8 % [facility] Lymphocytes Abs 1.2 0.9 - 3.2 x10(3)/[facility] Monocyte % 7.6 % [facility] Monocyte Abs 0.3 0.3 - 0.9 x10(3)/[facility] Eos % 2.7 % [facility] Eosinophils Abs 0.1 0.0 - 0.4 x10(3)/[facility] Basophil % 0.3 % [facility] Baso Absolute 0.0 0.0 - 0.1 x10(3)/[facility] Immature Gran % 0.30 % [facility] Comment: Immature granulocytes(IG's)percentage and absolute count will include metamyelocytes, myelocytes, and promyelocytes. Blood smears from CBCs yielding IG's will be scanned manually for concordance. If this scan disagrees with the automated IG or if promyelocytes are noted, a manual differential will be performed. Immature Gran Absolute 0.01 0.00 - 0.04 x10(3)/mcL [facility] Blood Venous Draw / Unknown 01/17/2023 10:04 AM EDT 01/17/2023 10:14 AM EDT Narrative Resulting Agency Comment Spec In Lab Katelynn Leonor MANHOLE STRIPPER HEMATOLOGY ORDERAB LES [facility] [place] [address] * (ABNORMAL) Hemogram (01/17/2023 10:04 AM EDT) White Blood Cell 3.7(L) 4.0 - 9.5 x10(3)/ L [facility] Red Blood Cell 3.76(L) 4.00 - 5.21 x10(6)/[facility] Hemoglobin 10.1(L) 11.7 - 15.5 g/dL [facility] Hematocrit 32.5(L) 35.7 - 45.8 % [facility] Mean Cell Volume 86.4 82.6 - 94.4 fL [facility] Mean Cell Hemoglobin 26.9(L) 27.1 - 32.0 pg [facility] Mean Cell Hemoglobin Concentration 31.1(L) 31.7 - 35.0 g/dL [facility] Platelet 89(L) 145 - 357 x10(3)/ L [facility] RDW Standard Deviation 51.1(H) 37.0 - 46.0 fL [facility] RDW coefficient of variation 16.2(H) 11.5 - 14.1 % [facility] Mean Platelet Volume 9.6 7.6 - 12.9 fL [facility] NRBC% auto 0.0 % [facility] NRBC Absolute 0.000 0.000 - 0.000 x10(3)/ L [facility] Blood Venous Draw / Unknown 01/17/2023 10:04 AM EDT 01/17/2023 10:14 AM EDT Narrative Resulting Agency Comment Spec In Lab Katelynn Galvez APRN HEMATOLOGY ORDERAB LES [facility] [place] [address] * (ABNORMAL) Comprehensive metabolic panel (non-fasting) (01/17/2023 10:04 AM EDT) Glucose 108 65 - 199 mg/dL [facility] Comment:Diabetes: >=200 mg/d L plus symptoms Blood Urea Nitrogen 10 8 - 18 mg/dL [facility] Creatinine 0.79 0.70 - 1.20 mg/dL [facility] Sodium 139 135 - 145 mmol/L [facility] Potassium 3.9 3.5 - 5.0 mmol/L [facility] Comment: Please note: ??Patients with WBC >100,000 may have falsely elevated Potassium levels. ??For accurate Potassium quantification in these patients send serum separator tube (gold top) for subsequent determinations. ??Contact the Clinical Chemistry Laboratory if there are any questions. Chloride 101 98 - 107 mmol/L [facility] Carbon Dioxide 25 22 - 31 mmol/L [facility] Anion Gap 13 5 - 15 mmol/L [facility] Calcium 9.4 8.5 - 10.5 mg/dL [facility] Protein, Total 6.9 6.1 - 8.0 g/dL [facility] Albumin 4.5 3.2 - 5.2 g/dL [facility] Aspartate Aminotransferase 46(H) 0 - 30 unit/L [facility] Alanine Aminotransferase 21 0 - 30 unit/L [facility] Alkaline Phosphatase 168(H) 35 - 105 unit/L [facility] Bilirubin, Total 0.5 0.2 - 1.3 mg/dL [facility] Est Glomerular Filtration Rate 85 >=60 mL/min/1. 73 m?? [facility] Comment: This patient's estimated GFR [...] Resulting Agency Comment Spec In Lab Katelynn Leonor GARCIA CHEMISTRY ORDERABL ES Performing Organization Address [facility] Co de Phone Number [facility] [place] [address] * (ABNORMAL) Prothrombin Time (01/17/2023 10:04 AM EDT) Prothrombin Time 14.0(H) 9.4 - 12.5 sec [facility] International Normalization Ratio 1.2 [facility] Comment: An INR <2.0 indicates [...] APRN HEMATOLOGY ORDERAB LES Performing Organization Address [facility] Co de Phone Number [facility] [place] [address] * SCAN DOC: IMPLANTABLE DEVICES (01/17/2023 12:00 AM EDT) Narrative 01/17/2023 12:00 AM EDT Ordered by an unspecified provider. Scanning Provider MEDIA MGR SCAN EXT O RDR/RSLT documented in this encounter Visit Diagnoses Diagnosis Ventral incisional hernia- Primary Hepatic cirrhosis, unspecified hepatic cirrhosis type, unspecified whether ascites present documented in this encounter Admitting Diagnoses Diagnosis Ventral [...] Given 01/17/2023 11:01 AM EDT 975 mg carvediloL (Coreg) tablet 6.25 mg 6.25 mg, [...] 20 mg, Oral, DAILY, First dose on 01/18/23 [...] TIMES DAILY WITH MEALS, First dose on Fri01/18/23 at 0800, Until Discontinued, Routine 08 (Given [...] Day of Surgery (Day of Procedure), Routine 120 (Given - Provider: Clint Sullivan CRNA) enoxaparin (Lovenox) (40 mg/0.4 mL) subcutaneous injection 40 mg 40 mg, Subcutaneous, EVERY 24 HOURS SCHEDULED (Daily), First dose on Fri01/18/23 at 0900, Until Discontinued, Routine 843 (Given - Provid er: Ary Fonseca RN) escitalopram (Lexapro) tablet 10 mg 10 mg, Oral, NIGHTLY, First dose on Fri01/17/23 at 2100, Until Discontinued, Routine 2101 (Given - Provider: Leatha Macias LPN) escitalopram (Lexapro) tablet 20 mg 20 mg, Oral, DAILY, First dose on Fri01/18/23 at 0900, Until Discontinued, Routine 842 (Given - Provid er: Ary Fonseca RN) [...] > 240 mg/dL in 2 hours., Routine 1838 (Not Given - Provider: Yecenia Blakely RN [...] 2099 (Given - Provider: Leatha Macias LPN) 08 (Given - Provider: Ary Fonseca RN) traZODone (Desyrel) tablet 50 mg 50 mg, Oral, NIGHTLY, First dose on Fri01/17/23 at 2100, Until Discontinued, Routine 2102 (Given - Provider: Leatha Maicas LPN) varenicline (Chantix) tablet 1 mg 1 [...] Intravenous, EVERY 8 HOURS PRN, Starting on 01/17/23 at 1837, Until 01/18/23 at 1459, Nausea, If multiple antiemetics are ordered, use ondansetron first, prochlorperazine second, and metoclopramide third. PO Preferred. If patient unable to take PO, may give IV if ordered. May repeat times one in 30 minutes if ineffective. Maximum daily dose = 24 mg/24 hours documented in this encounter Care Teams Medical Scientific Officer Relationship Specialty Start Date End Date Grant Lindsey MD PCP - General Family Medicine 02/25/19 documented as of this encounter
--- OUTSIDE RECORDS SUMMARY | 2024-01-23 00:32 | XMS_ITS | Encounter Summary ---
Author Organization [facility] [place] [address] Care Team Providers Care Deputy District Customs Director Name Role Phone Grant Lindsey MD Primary Care Provider [phone] Encounter Details Date Type Department Care Team (Latest Contact Info) Description 08/27/2022 8:30 AM EDT - 08/27/2022 11:59 PM EDT Hospital Encounter [place] [id number] Lashae Kenyon MD [facility] [address] Ventral hernia without obstruction or gangrene Discharge Disposition: Home Social History Tobacco Use [...] EST TH Visit (TeleHealth) [place] [address] Lashae Kenyon MD [facility] [place] [address] documented as of this encounter Procedures Procedure Name Priority Date/Time Associated Diagnosis Comments US ABDOMEN LIMITED Routine 08/27/2022 8: 55 AM EDT Ventral hernia without obstruction or gangrene documented in this encounter Results * US [...] who have questions, please contact the health career and technology education teacher that requested your imaging first. ?Primo Guthrie, Staff Physician Electronically Signed Final Report ?? 08/27/2022 09:40 am Narrative 08/27/2022 9:41 AM EDT Abdominal ? (Signed Final 08/27/2022 09:40 am) PATIENT INFO: ID #: ? [id number] ?: ??60 (62 yrs)(F) Name: ? KALLIE Villalobos ? Visit Date: 08/27/2022 08:55 am PERFORMED BY: Attending: ?Cleveland STOCKTON, Primo Resident: ? Melida Justin MD, Matthew Barraza Performed By: ? Erik Larsen RDMS Referred By: ?LASHAE KENYON Location: ? [place] SERVICE(S) PROVIDED: UABDLIM - Abdominal Limited Survey Single ? [id number] Organ or Quadrant - [id number] INDICATIONS: Small hernia containing a possible varix. [...] 08/27/2022 09:40 am) PATIENT INFO: ID #: [id number] : 60 (62 yrs)(F) Name: KALLIE SMART Visit Date: 08/27/2022 08:55 am PERFORMED BY: Attending: Primo Guthrie MD Resident: Matthew Mares MD Performed By: Erik Larsen RDMS Referred By: LASHAE KENYON Location: [place] SERVICE(S) PROVIDED: UABDLIM - Abdominal Limited Survey Single [id number] Organ or Quadrant - [id number] INDICATIONS: Small hernia containing a possible varix. [...] who have questions, please contact the health career and technology education teacher that requested your imaging first. Primo Guthrie, Staff Physician Electronically Signed Final Report 08/27/2022 09:40 am Lashae Kenyon MD IMG US GEN ORDERABLE S documented in this encounter Visit Diagnoses Diagnosis Ventral hernia without obstruction or gangrene Ventral hernia, unspecified, without mention of obstruction or gangrene documented in this encounter Care Teams Deputy District Customs Director Relationship Specialty Start Date End Date Grant Lindsey MD PCP - General Family Medicine 02/25/19 documented as of this encounter
--- OUTSIDE RECORDS SUMMARY | 2024-01-23 00:32 | XMS_ITS | Encounter Summary ---
[place] [address] Care Team Providers Care Barrel Lathe Operator Inside Name Role Phone Grant Lindsey MD Primary Care Provider [phone] Encounter Details Date Type Department Care Team (Latest Contact Info) Description 09/02/2022 11:45 AM EDT TH Visit (TeleHealth) [place] [id number] Lashae Lorenzo MD [facility] [place] [address] Ventral hernia without obstruction or gangrene Social [...] Progress Notes * Lashae Lorenzo MD - 09/02/2022 11:45 AM EDT I spoke with Ms. Darling today after her US last week. The US showed a pocket of fluid within the hernia which did not appear to be communicating with her recanalized umbilical vein. She stopped smoking after she saw me and says that she is still in pain but is holding her own. My plan is to present her case at a [facility] liver conference on 09/18. I will follow up with her after that via telephone. documented in this encounter Plan of Treatment Upcoming Encounters Date Type Department Care Team (Late st Contact Info) Description 02/27/2024 2:45 PM EST TH Visit (TeleHealth) [place] [address] Lashae Lorenzo MD [facility] [place] [address] documented as of this encounter Visit Diagnoses Diagnosis Ventral hernia without obstruction or gangrene Ventral hernia, unspecified, without mention of obstruction or gangrene documented in this encounter Care Teams Barrel Lathe Operator Inside Relationship Specialty Start Date End Date Grant Lindsey MD PCP - General Family Medicine 02/25/19 documented as of this encounter
--- OUTSIDE RECORDS SUMMARY | 2024-01-23 00:32 | XMS_ITS | Encounter Summary ---
Author Organization [facility] [place] [address] Care Team Providers Care Lighting Equipment Operator Name Role Phone Grant Lindsey MD Primary Care Provider [phone] Encounter Details Date Type Department Care Team (Latest Contact Info) Description 08/27/2022 Travel Social History Tobacco Use Types Packs/Day [...] EST TH Visit (TeleHealth) [place] [id number] Lashae Lorenzo MD [facility] [place] [address] documented as of this encounter Visit Diagnoses Not on filedocumented in this encounter Care Teams Lighting Equipment Operator Relationship Specialty Start Date End Date Grant Lindsey MD PCP - General Family Medicine 02/25/19 documented as of this encounter
--- OUTSIDE RECORDS SUMMARY | 2024-01-23 00:33 | XMS_ITS | Encounter Summary ---
Author Organization [facility] [place] [address] Care Team Providers Care Health Information Internship Name Role Phone Grant Lindsey MD Primary Care Provider [phone] Encounter Details Date Type Department Care Team (Latest Contact Info) Description 07/21/2019 1:00 PM EDT TH Visit (TeleHealth) [place] [id number] Saniya Davis CLINICAL NURSE MANAGER [facility] [place] [address] Hepatic cirrhosis, unspecified hepatic cirrhosis type, unspecified [...] as of this encounter Progress Notes * Saniya Davis APRN - 07/21/2019 1:00 PM EDT Hepatology Follow Up Note Patient: Kallie Darling Gender: female : 1960 Provider: Saniya Davis NP Referring Physician: Grant Lindsey MD ID: Kallie Darling is a 58 y.o. 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 She was previously followed byDr. Vogel and returns today for follow up. She has been having a hard time with the COVID pandemic. Feeling very stressed with everything going on. Has been very stressed out. She has had blood in her stools, which has been going on for the past 3-4 weeks. She states this often happens when she feels stressed out. We had scheduled a colonoscopy, however that is now postponed due to COVID. She spoke with her PCP, Dr. Trivedi. GI Problem List: 1. Cirrhosis, HARDEN/MONA Imaging [...] vental hernia surgical repair (05/11/19) done at [facility], no ascites afterwards Preventative Health 1. HAV/HBV: [...] Outpatient Medications Medication Sig Dispense Refill ??? hydrOXYzine (Atarax) 25 mg Tablet TAKE [...] Take 40 mg by mouth daily. ??? pravastatin (PRAVACHOL) 80 mg Tablet Take 80 mg by mouth daily. ??? albuterol sulfate [...] ??? Gramicidin D Nausea Only ??? Neomycin Sulfate Nausea Only ??? Polymyxin B Nausea Only ??? Aspirin Nausea And Vomiting ??? Lactose Other (See Comments) GI Upset Physical Examination: No vitals or physical exam. Patient speaking quickly and in complete sentences. Labs: Reviewed in EDH/Scan Docs Lab Results Component Value Date WBC 6.3 08/30/2015 HGB 14.0 08/30/2015 HCT 41.7 08/30/2015 MCV 91.2 08/30/2015 PLATELET 107 (L) 08/30/2015 Chemistry Component Value Date/Time NA 138 08/30/2015 1750 K 4.1 08/30/2015 1750 CL 101 08/30/2015 1750 CO2 25 08/30/2015 1750 BUN 11 08/30/2015 1750 CREATININE 0.76 08/30/2015 1750 Component Value Date/Time CALCIUM 9.5 02/24/2018 0959 ALKPHOS 138 (H) 08/30/2015 1750 AST 34 (H) 08/30/2015 1750 ALT 19 08/30/2015 1750 BILITOT 0.4 08/30/2015 1750 Lab Results Component Value Date ALT 19 08/30/2015 AST 34 (H) 08/30/2015 ALKPHOS 138 (H) 08/30/2015 BILITOT 0.4 08/30/2015 IMPRESSION: Kallie Darling is a 58 y.o. PMH significant for MONA/HARDEN c/b portal HTN: Grade 1 Pilar carvedilol, currently sober. Her cirrhosis has been relatively well compensated, and she appearsto have healed well from a recent ventral hernia repair surgery. Her main concern in our telephone appointment is anxiety regarding the COVID situation and occasional blood in her stools for the pastmonth. Her last colonoscopy was in 2013 and showed a mild diffuse colitis in her right colon which could have been due to an infectious diarrhea. I would like to do blood work, which we discussed at our last visit and again today, but she has been unable to do. 1. Cirrhosis. Due for updated blood work. Prior MELD normal. 2. Alcohol use. Has not drank since 02/2017. 3. HARDEN. This is likely contributing to her liver disease as well. Would recommend watching her diet and working on weight loss, can discuss more at future visits. 4. HCC surveillance. She should have imaging of her liver every 6 months,. She is due for an US, which we will arrange for after the COVID situation calms down. 5. Portal hypertension. She had small varices noted on EGD in 2012 and has been taking Carvedilol since then for primary prophylaxis. She does not require another EGD as long as she is taking Carvedilol, but since she is due for a colonoscopy will repeat EGD as well to also further evaluate her abdominal pain. RECOMMENDATIONS: - Ultrasound and blood work in 2-3 months when COVID situation calms down. - Reschedule EGD and Colonoscopy for post-COVID, should be triaged by endoscopy review team and contacted to reschedule when able. Saniya Davis APRN Section of Gastroenterology [place] [address] Grant Lindsey MD [facility] [place] [address] Patient verbally consents to this telephone visit and understands that this visit may be billed, similar to a clinic office visit. I provided care to the patient today via telephone call, 20 minutes telephone visit was spent in discussion with patient on above. documented in this encounter Plan of Treatment Upcoming Encounters Date Type Department Care Team (Late st Contact Info) Description 02/27/2024 2:45 PM EST TH Visit (TeleHealth) [place] [address] Lashae Lorenzo MD [facility] [place] [address] documented as of this encounter Visit Diagnoses Diagnosis Hepatic cirrhosis, unspecified hepatic cirrhosis type, unspecified whether ascites present documented in this encounter Care Teams Health Information Internship Relationship Specialty Start Date End Date Grant Lindsey MD PCP - General Family Medicine 02/25/19 documented as of this encounter
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
--- OUTSIDE RECORDS SUMMARY | 2024-01-23 00:33 | XMS_ITS | Encounter Summary ---
Author Organization Formerly [facility] [place] [address] Care Team Providers Care Tile Burner Name Role Phone Mehul Valladares DO Primary Care Provider [phone] Encounter Details Date Type Department Care Team (Late st Contact Info) Description 10/09/2017 Telephone Pulmonology at [facility] [place] [phone] Josh Guadarrama MD [facility] [place] [address] Social History Tobacco Use Types Packs/Day Years [...] encounter Miscellaneous Notes * Telephone Encounter - Josh Guadarrama MD - 10/09/2017 1:11 PM EDT Tried multiple times to call the patient to discuss the results of her biopsy. After the bronchoscopy I called and talked to her about the pathology results. Told her that it was not lung cancer. Thepath was consistent with parathyroid tissue. I talked to her primary care and maintenance of way clerk as well. Referral was made to endocrinology. On 10/05/17 it appears that she was in the ER trying to find the results of bronch and plan. I have tried multiple times to reach her, however have been unsuccessful. I also called her sister Cristel at [phone] without success. Will try again. documented in this encounter Plan of Treatment Upcoming Encounters Date Type Department Care Team (Late st Contact Info) Description 02/27/2024 2:45 PM EST TH Visit (TeleHealth) [place] [address] Lashae Lorenzo MD [facility] [place] [address] documented as of this encounter Visit Diagnoses Not on filedocumented in this encounter Care Teams Tile Burner Relationship Specialty Start Date End Date Mehul Valladares DO [address] [place] [address] PCP - General General Internal Medicine 09/04/17 documented as of this encounter
--- OUTSIDE RECORDS SUMMARY | 2024-01-23 00:33 | XMS_ITS | Encounter Summary ---
[facility] [place] [address] Care Team Providers Care Wildlife Conservationist Name Role Phone Mehul Valladares DO Primary Care Provider [phone] Reason for Visit * Reason Comments Visual Disturbance Encounter Details Date Type Department Care Team (Late st Contact Info) Description 03/23/2018 2:15 PM EST Office [place] [address] Mauricio Fairchild MD [facility] [place] [address] Age-related nuclear cataract of both eyes; Dry eyes, bilateral; Amblyopia of eye, left Social History Tobacco Use Types Packs/Day Years [...] as of this encounter Progress Notes * Mauricio Greenwood MD - 03/23/2018 2:15 PM EST Kallie Darling is for a follow up. She notes intermittent left eye ache. On examination today, Kallie Darling exhibited 20/25 vision in the right and 20/50 vision in the left. Anterior segment structures were normal, without any inflammation. Her fundus examination revealed optic nerves that are healthy and pink with normal retinal findings. Normal ocular examination. 1) Amblyopic in the left eye - Minimal change to her glasses prescription. 2) Nuclear sclerotic cataracts, bilaterally - Not visually significant at this time - Continued observation 3) Dry eyes - Advised to use preservative free artificial tears, four to six times a day, as well as lubricating ointment at night. documented in this encounter Plan of Treatment Upcoming Encounters Date Type Department Care Team (Late st Contact Info) Description 02/27/2024 2:45 PM EST TH Visit (TeleHealth) [place] [address] Lashae Lorenzo MD [facility] [place] [address] documented as of this encounter Visit Diagnoses Diagnosis Age-related nuclear cataract of both eyes Senile nuclear sclerosis Dry eyes, bilateral Tear film insufficiency, unspecified Amblyopia of eye, left documented in this encounter Care Teams Wildlife Conservationist Relationship Specialty Start Date End Date Mehul Valladares DO [address] [place] [address] PCP - General General Internal Medicine 09/04/17 documented as of this encounter
--- OUTSIDE RECORDS SUMMARY | 2024-01-23 00:33 | XMS_ITS | Encounter Summary ---
Author Organization [place] [address] Care Team Providers Care Casing Worker Name Role Phone Renettabridger Mheul Lugo DO Primary Care Provider [phone] Encounter Details Date Type Department Care Team (Late st Contact Info) Description 09/11/2017 3:48 PM EDT Anesthesia Event [place] [address] Murtaza Gutierrez MD [facility] [address] [place] [address] Branden Hagen CRNA [facility] [address] [place] [address] Anesthesia Record Procedure Summary Procedure Name Responsible Anesthesiologist Anesthesia Start Time Anesthesia Stop Time BRONCH, W ENDOBRONCHIAL ULTRASOUND (EBUS) GUIDED SAMPLING, 3+ NODES (WRVU 4.96) (Chest) Murtaza Gutierrez MD 09/11/17 1548 09/11/17 1720 Events Date Time Event Comment 09/11/2017 1543 1548 AN Verify 1548 Start 1548 An Start Data 1550 An Induction 1554 An Intubation 1557 Anesthesia Ready 1608 Procedure Start 1627 Quick Note ETT removed acc identally FM vent without problem ETT reinserted without problem 1715 Extubation/LMA Out 1715 an stop data 1720 Recovery or ICU Handoff Nolvia ent care was transferred to the destination unit staff after review of the patient's medical history, current anesthetic/surgical status and plan, according to the Provider Handoff Checklist. 1720 Stop Meds Name Total IV Lidocaine 20 mg Propofol 290 mg Propofol INF 300 mg Succinylcholine 100 mg Lidocaine 4% LTA 2 mL Rocuronium 45 mg Glycopyrrolate 0.4 mg Neostigmine 3 mg Ondansetron 4 mg Lactated Ringers 700 mL * Agents Name O2 Air N2O Sevoflurane (et) * Blood No blood administrations on file. Lines, Drains, and Airways Type Details Placement Removal ETT Mask Ventilation: Ea sy (1); ETT Type: Cuffed, Oral; Gastelum Blade: 2; Notes: Asleep, Stylette, Pre-O2; Attempts: 1; Laryngoscopy Grade: 1; ETT Placement Verified By: Auscultation, Capnometry, Visual; Inserted by: prince; Removal Date: 09/11/17; Removal Time: 1715 09/11/17 1606 by 09/11/17 1715 by Tran Blandon CRNA (RETIRED) Peripheral IV Line - Single Lumen 09/11/17; 1601; 09/11/17; 1825 09/11/17 1601 by Tran Blandon CRNA 09/11/17 1825 by Sherry Jaramillo RN documented in this encounter Social History Tobacco [...] OR Notes * Anesthesia Postprocedure Evaluation - Murtaza Gutierrez MD - 09/11/2017 6:29 PM EDT [facility] Department of Anesthesiology Post-procedure Note Patient: Kallie Darling Procedure Summary Date Anesthesia Start Anesthesia Stop Room / Location 09/11/17 1548 1720 [facility] / [facility] Procedure Diagnosis Surgeon Responsible Provider BRONCH, W ENDOBRONCHIAL ULTRASOUND (EBUS) GUIDED SAMPLING, 3+ NODES (WRVU 5.21) (N/A Chest) Lung mass (LUNG MASS,EBUS, GA) Josh Guadarrama MD Nguyen, Tung T, MD All Anesthesia Providers: Anesthesiologist: Murtaza Gutierrez MD [employer] SUPERINTENDENT: Tran Blandon CRNA Most Recent Vitals: 09/11/17 1718 BP: (!) 150/91 Pulse: 75 Resp: 16 SpO2: 96% Pain 0 (09/11/17 1730) Patient Location: PACU/[facility] Level of Consciousness: Awake and Alert Pain Management: Satisfactory Analgesia PONV: None Cardiovascular Status: At Baseline Respiratory Status: At Baseline Postoperative Fluid Status: Intravascular EUvolemia Possible Anesthetic Complications: NONE apparent at time of evaluation Final Primary Anesthesia Type: General (The anesthetic type performed was the same as planned.) Comments: * Anesthesia Preprocedure Evaluation - Murtaza Gutierrez MD - 09/11/2017 3:36 PM EDT Images from the original note were not included. Pre-Anesthesia Evaluation for: Kallie Darling a 57 y.o. female. Procedure(s): BRONCH, W ENDOBRONCHIAL ULTRASOUND (EBUS) GUIDED SAMPLING, 3+ NODES (WRVU 5.21) Patient Active Problem List Diagnosis ??? Alcoholic cirrhosis of liver without ascites ??? Hyperparathyroidism ??? Primary hyperparathyroidism (PTH 165, Ca 11.0, +PUD but no kidney stone) ??? H/O hysterectomy for benign disease at age 32 (menorrhagia/DUB) ? ? Alcoholic gastritis & chronic liver disease (esophageal varices) ??? Low back pain ??? Right foot pain With numbness, crush injury 2007. ??? Neck pain With right upper extremity pain. ??? Left elbow pain ??? Asthma ??? Chronic low back pain ??? Restless leg syndrome ??? Acid reflux ??? Learning disability Past Medical History: Diagnosis Date ??? Allergic state ??? Amblyopia OS? Pt sketchy on details. never treated. ??? Arthritis ??? Asthma ??? Cataract ??? Cirrhosis ??? Constipation ??? Depression ??? Disease of blood and blood forming organ ??? Elevated liver function tests ??? GERD (gastroesophageal reflux disease) ??? Hyperlipidemia ??? Lower extremity pain Right sided ??? SOCORRO (obstructive sleep apnea) ??? Thyroid disease ??? Trauma Past Surgical History: Procedure Laterality Date ??? CHOLECYSTECTOMY 2009 ??? HAND SURGERY 1967 left thumb ??? HYSTERECTOMY 1979 ??? KNEE ARTHROSCOPY 2002 left ??? PRO COLONOSCOPY, BIOPSY 01/27/2014 COLONOSCOPY FLEXIBLE, WITH BX performed by Natividad Taveras MD at [facility] ??? PRO COLONOSCOPY, DIAGNOSTIC 02/17/2012 COLONOSCOPY, DIAGNOSTIC performed by ENRICO RUGGIERO at [facility] ??? PRO COLONOSCOPY, DIAGNOSTIC 2012 COLONOSCOPY, DIAGNOSTIC performed by Natividad Taveras MD at [facility] ??? PRO NEEDLE BIOPSY LIVER 01/28/2012 ??? PRO UPPER GI ENDOSCOPY, BIOPSY N/A 10/21/2016 UPPER GASTROINTESTINAL ENDOSCOPY,WITH BIOPSY SINGLE OR MULTIPLE (WRVU 2.49) performed by Matthew Garcia MD at [facility] ??? PRO UPPER GI ENDOSCOPY, DIAGNOSTIC N/A 10/21/2016 EGD, UPPER GI ENDOSCOPY performed by Matthew Garcia MD at [facility] ??? UPPER GI ENDOSCOPY, EXAM 2012 UPPER GI ENDOSCOPY performed by Natividad Taveras MD at [facility] Social History Substance Use Topics ??? Smoking status: Current Every Day Smoker Packs/day: 0.25 Years: 30.00 Types: Cigarettes ??? Smokeless tobacco: Never Used ??? Alcohol use No Comment: No ETOH x 3 months; Hx of 1-2 beers/day during week and 6-8 beers on weekend History Drug Use No Comment: No hx of IV or intranasal drug use Allergies Allergen Reactions ??? Amoxicillin-Pot Clavulanate Nausea Only ??? Bacitracin Nausea Only ??? Gramicidin D Nausea Only ??? Neomycin Sulfate Nausea Only ??? Polymyxin B Nausea Only ??? Aspirin Nausea And Vomiting ??? Lactose Other (See Comments) GI Upset Medications: MAR and/or home medications have been reviewed. Physical Exam: Most Recent Vitals: 09/11/17 1502 BP: (!) 146/120 Pulse: 78 Resp: 20 SpO2: 95% There is no height or weight on file to calculate BMI. Airway Assessment: Mallampati: I Cardiovascular Assessment: Rhythm: regular Rate: normal Pulmonary Assessment: (+) decreased breath sounds Dental Assessment: Misc Assessment: Patient is wearing No contact(s). IV access: Peripheral line Anesthesia Plan: ASA 3 general, with a(n) intravenous induction Region - Other Informed Consent: Anesthetic plan and risks discussed with patient. PAT Staff Note Attending NOTE Brief HPI: 57 y.o. with lung mass to endo suite for bronch/EBUS Diagnosis ??? Asthma ??? obesity ??? Restless leg syndrome ??? Acid reflux ? ? Alcoholic gastritis & chronic liver disease (esophageal varices) ??? Hyperparathyroidism ??? Lung mass Past Medical History: Diagnosis Date ??? Allergic state ??? Amblyopia OS? Pt sketchy on details. never treated. ??? Arthritis ??? Asthma ??? Cataract ??? Cirrhosis ??? Constipation ??? Depression ??? Disease of blood and blood forming organ ??? Elevated liver function tests ??? GERD (gastroesophageal reflux disease) ??? Hyperlipidemia ??? Lower extremity pain Right sided ??? SOCORRO (obstructive sleep apnea) ??? Thyroid disease ??? Trauma METS:>4 Cardiac Symptoms: denies EKG: none recent ECHO: none LABS: Lab Results Component Value Date HGB 14.0 08/30/2015 PLATELET 107 (L) 08/30/2015 INR 1.2 (H) 08/30/2015 NA 138 08/30/2015 K 4.1 08/30/2015 CREATININE 0.76 08/30/2015 Type and Screen: No results found for: ABORH Past anesthetic problems:denies Previous airway notes (on eDH): none NPO status: Reviewed and appropriate Anesthetic Plan: GETA Monitoring: Standard ASA monitors documented in this encounter Plan of Treatment Upcoming Encounters Date Type Department Care Team (Late st Contact Info) Description 02/27/2024 2:45 PM EST TH Visit (TeleHealth) [place] [address] Lashae Lorenzo MD [facility] [place] [address] documented as of this encounter Visit Diagnoses Not on filedocumented in this encounter Administered Medications Inactive Administered Medications - up to 3 most recent administrations Medication Order MAR Action Action Date Dose Rate Site glycopyrrolate (ROBINUL) multi-dose injection PRN, Starting on Koki 09/11/17 at 1706, Until Koki 09/11/17 at 1720, Anesthesia Intra-op, Routine Given 09/11/2017 5:06 PM EDT 0.4 mg lactated Ringers infusion CONTINUOUS PRN, Starting on Koki 09/11/17 at 1548, Until Koki 09/11/17 at 1720, Anesthesia Intra-op New Bag 09/11/2017 3:48 PM EDT lidocaine (PF) (XYLOCAINE) 100 mg/5 mL (2 %) injection PRN, Starting on Koki 09/11/17 at 1550, Until Koki 09/11/17 at 1720, Anesthesia Intra-op, Routine Given 09/11/2017 3:50 PM EDT 20 mg lidocaine (XYLOCAINE) 4 % external solution PRN, Starting on Koki 09/11/17 at 1554, Until Koki 09/11/17 at 1720, Anesthesia Intra-op Given 09/11/2017 3:54 PM EDT 2 mLs neostigmine (BLOXIVERZ) injection PRN, Starting on Koki 09/11/17 at 1708, Until Koki 09/11/17 at 1720, Anesthesia Intra-op, Routine Given 09/11/2017 5:08 PM EDT 3 mg ondansetron (ZOFRAN) injection PRN, Starting on Koki 09/11/17 at 1710, Until Koki 09/11/17 at 1720, Nausea, Anesthesia Intra-op, Routine Given 09/11/2017 5:10 PM EDT 4 mg propofol (DIPRIVAN) 10 mg/mL bolus injection (Anesthesia) PRN, Starting on Koki 09/11/17 at 1550, Until Koki 09/11/17 at 1720, Anesthesia Intra-op Given 09/11/2017 4:30 PM EDT 20 mg Given 09/11/2017 4:15 PM EDT 20 mg Given 09/11/2017 4:00 PM EDT 50 mg propofol (DIPRIVAN) infusion CONTINUOUS PRN, Starting on Koki 09/11/17 at 1550, Until Koki 09/11/17 at 1720, Anesthesia Intra-op, Routine Rate/Dose Change 09/11/2017 4:00 PM EDT 25 mcg/kg/min 15 mL/hr New Bag 09/11/2017 3:50 PM EDT 150 mcg/kg/min 90 mL/hr rocuronium (ZEMURON) multi-dose injection PRN, Starting on Koki 09/11/17 at 1550, Until Koki 09/11/17 at 1720, Anesthesia Intra-op, Routine Given 09/11/2017 4:15 PM EDT 10 mg Given 09/11/2017 4:00 PM EDT 10 mg Given 09/11/2017 3:53 PM EDT 20 mg succinylcholine chloride (Quelicin) injection PRN, Starting on Koki 09/11/17 at 1550, Until Koki 09/11/17 at 1720, Anesthesia Intra-op, Routine Given 09/11/2017 3:50 PM EDT 100 mg documented in this encounter Care Teams Casing Worker Relationship Specialty Start Date End Date Mehul Valladares DO [address] [place] [id number] PCP - General General Internal Medicine 09/04/17 documented as of this encounter
--- OUTSIDE RECORDS SUMMARY | 2024-01-23 00:33 | XMS_ITS | Encounter Summary ---
Author Organization [facility] [place] [address] Care Team Providers Care Javascript Software Engineer Name Role Phone Mehul Valladares DO Primary Care Provider [phone] Reason for Referral * Consultation (Routine) - Closed Specialty Diagnoses / Procedures Referred By Nicol sparks Referred To Contact Endocrinology Diagnoses Hyperparathyroidism Josh Guadarrama MD [facility] [place] [address] [facility] Endocrinology [address] [place] [phone] Referral ID Status Reason Start Date Expiration Date V isits Requested Visits Authorized [id number] Closed Consult, Test & Treat 09/17/2017 09/17/2018 1 1 Encounter Details Date Type Department Care Team (Late st Contact Info) Description 09/17/2017 Orders [place] [address] Josh Guadarrama MD [facility] [place] [address] Hyperparathyroidism Social History Tobacco Use Types Packs/Day Years [...] EST TH Visit (TeleHealth) [place] [address] Lashae Lorenzo MD [facility] [place] [address] Scheduled Referrals Name Type Priority Associated Diagnoses Order Schedule Referral to Endocrinology Outpatient Referral Routine Hyperparathyroidism Ordered: 09/17/2017 documented as of this encounter Visit Diagnoses Diagnosis Hyperparathyroidism Hyperparathyroidism, unspecified documented in this encounter Care Teams Javascript Software Engineer Relationship Specialty Start Date End Date Mehul Valladares DO [address] [place] [address] PCP - General General Internal Medicine 09/04/17 documented as of this encounter
--- OUTSIDE RECORDS SUMMARY | 2024-01-23 00:33 | XMS_ITS | Encounter Summary ---
[place] [address] Care Team Providers Care Doctor Podiatric Medicine Name Role Phone Grant Lindsey MD Primary Care Provider [phone] Encounter Details Date Type Department Care Team (Late st Contact Info) Description 07/08/2019 Telephone [place] [phone] Naomi Vasquez, [facility] Social History Tobacco Use Types Packs/Day Years [...] encounter Miscellaneous Notes * Telephone Encounter - Naomi Vasquez - 07/08/2019 2:39 PM EDT Called to reach patient about upcoming endoscopy procedure and read the following: We are reaching to let you know that in response to the COVID-19 Public Health Crisis we have made the decision to delay elective procedure on 07/13/19. Our top priority is always to keep our patients and employees safe. As you have likely heard in themedia there is a national shortage of critical supplies and we must focus on maintaining the adequacy of equipment and supplies during this challenging period. All [facility] hospitals are open, outpatient appointments, urgent and emergency procedures are continuing. To stay up to date on COVID-19 please visit our website where we post regular updates. Please remember to say healthy through social distancing and frequent handwashing We are sorry for this inconvenience to you and your family, we appreciate your understanding. Patient was understanding of this plan and that we will contact them at a later time to reschedule their procedure. documented in this encounter Plan of Treatment Upcoming Encounters Date Type Department Care Team (Late st Contact Info) Description 02/27/2024 2:45 PM EST TH Visit (TeleHealth) [place] [address] Lashae Lorenzo MD [facility] [place] [address] documented as of this encounter Visit Diagnoses Not on filedocumented in this encounter Care Teams Doctor Podiatric Medicine Relationship Specialty Start Date End Date Grant Lindsey MD PCP - General Family Medicine 02/25/19 documented as of this encounter
--- OUTSIDE RECORDS SUMMARY | 2024-01-23 00:33 | XMS_ITS | Encounter Summary ---
[place] [address] Care Team Providers Care Media Monitor Name Role Phone Grant Lindsey MD Primary Care Provider Reason for Visit * Reason Onset Date Comments Appointment 03/30/2019 Encounter Details Date Type Department Care Team (Late st Contact Info) Description 03/30/2019 Telephone [place] [address] Lupe Senior Appointment Social History Tobacco Use Types Packs/Day Years [...] encounter Miscellaneous Notes * Telephone Encounter - Radha Ramirez - 03/30/2019 11:42 AM EST Called pt and lvm stating we have not received any referral. Asked her to have it re-faxed. * Telephone Encounter - Lupe Senior - 03/30/2019 11:16 AM EST Caller and relationship to patient (if other than patient): Hilary at [facility] Office Patient Best time to reach caller: YOSELIN Message or Reason for Call: [facility] office would like their patient contacted yoselin, new referral sent on 02/24/19. Appt Needed and Reason: Yes Provider: TBRonal documented in this encounter Plan of Treatment Upcoming Encounters Date Type Department Care Team (Late st Contact Info) Description 02/27/2024 2:45 PM EST Visit (TeleHealth) [place] [address] Lashae Lorenzo MD [facility] [place] [address] documented as of this encounter Visit Diagnoses Not on filedocumented in this encounter Care Teams Media Monitor Relationship Specialty Start Date End Date Grant Lindsey MD PCP - General Family Medicine 02/25/19 documented as of this encounter
--- OUTSIDE RECORDS SUMMARY | 2024-01-23 00:33 | XMS_ITS | Encounter Summary ---
Author Organization [facility] [place] [address] Care Team Providers Care Machine Helper Name Role Phone Mehul Valladares DO Primary Care Provider [phone] Encounter Details Date Type Department Care Team (Late st Contact Info) Description 12/25/2017 10:30 AM EDT Office [place] [address] Ana Dias MD [facility] [place] [address] S/P parathyroidectomy Social History Tobacco Use Types Packs/Day Years [...] Sign Reading Time Taken Comments Blood Pressure - - Pulse - - Temperature - - Respiratory Rate - - Oxygen Saturation - - Inhaled Oxygen Concentration - - Weight 103 kg (227 lb) 12/25/2017 10:44 AM EDT Height - - Body Mass Index 37.77 09/04/2017 9:48 AM EDT documented in this encounter Progress Notes * Ana Dias MD - 12/25/2017 10:30 AM EDT Parathyroidectomy Post-Op Visit Subjective: Ms. Kallie Darling is a very pleasant 57 y.o. year old female who is 6 weeks s/p right-sided mediastinal parathyroidectomy for primary hyperparathyroidism. She is doing well overall, but complains of significant pain at the right side of the incision. She is not having hypocalcemic symptoms or issues with difficulty swallowing. Exam: There were no vitals filed for this visit. Healing anterior neck incision with underlying healing ridge. No hematoma or seroma. Voice appears normal. Pathology results: A - Right upper parathyroid Enlarged parathyroid gland, ??compatible with adenoma. Labs: Calcium (12/08): 9.7 Assessment and Plan: Ms. Kallie Darling is a very pleasant 57 y.o. year old female s/p targeted parathyroidectomy for primary hyperparathyroidism who is doing very well post- operatively without evidence of complications. I discussed the pathology results with the patient and recommended no further treatment. Calcium was checked 2 weeks ago and was normal. She does not need to continue taking post-operativesupplemental doses of calcium and vitamin D. I did encourage her to discuss calcium supplementationfor general bone health purposes with her PCP. I explained that she should have her serum calcium checked annually, and that we do not need to follow PTH levels unless her calcium level rises again. I discussed scar massage with vitamin E to aid in incisional appearance and discussed the importance of UV light protection on scar healing. I think scar massage will help desensitize the area, as I otherwise do not have a good explanation for her incisional pain. Her healing looks very normal, andthere are no palpable abnormalities. Overall, she is doing well post-operatively and I recommended follow up with me on an as needed basis hereafter. documented in this encounter Plan of Treatment Upcoming Encounters Date Type Department Care Team (Late st Contact Info) Description 02/27/2024 2:45 PM EST TH Visit (TeleHealth) [place] [address] Lashae Lorenzo MD [facility] [place] [address] documented as of this encounter Visit Diagnoses Diagnosis S/P parathyroidectomy Other postprocedural status documented in this encounter Care Teams Machine Helper Relationship Specialty Start Date End Date Mehul Valladares DO [address] [place] [address] PCP - General General Internal Medicine 09/04/17 documented as of this encounter
--- OUTSIDE RECORDS SUMMARY | 2024-01-23 00:33 | XMS_ITS | Encounter Summary ---
[place] [address] Care Team Providers Care Production Operator Name Role Phone Grant Lindsey MD Primary Care Provider [phone] Encounter Details Date Type Department Care Team (Late st Contact Info) Description 03/10/2020 Telephone [place] [phone] Gay Cerrato Social History Tobacco Use Types Packs/Day Years [...] encounter Miscellaneous Notes * Telephone Encounter - Gay Cerrato - 03/10/2020 2:32 PM EST Tried to call pt to schedule overdue follow up with Saniya Davis, with labs and US prior. Phone rings 3 times then disconnects, so unable to leave VM. Sending letter to pt. documented in this encounter Plan of Treatment Upcoming Encounters Date Type Department Care Team (Late st Contact Info) Description 02/27/2024 2:45 PM EST TH Visit (TeleHealth) [place] [address] Lashae Lorenzo MD [facility] [place] [address] documented as of this encounter Visit Diagnoses Not on filedocumented in this encounter Care Teams Production Operator Relationship Specialty Start Date End Date Grant Lindsey MD PCP - General Family Medicine 02/25/19 documented as of this encounter
--- OUTSIDE RECORDS SUMMARY | 2024-01-23 00:33 | XMS_ITS | Encounter Summary ---
Author Organization Formerly [facility] [place] [address] Care Team Providers Care Betting Agency Manager Name Role Phone RenettaMehul sparks Brittney SMITH Primary Care Provider [phone] Encounter Details Date Type Department Care Team (Late st Contact Info) Description 11/10/2017 4:51 PM EDT Anesthesia Event [place] [address] Genaro Rollins MD [facility] [place] [address] Leilani El, INTELLIGENCE CLERK [address] [facility] [address] [place] [address] Anesthesia Record Procedure Summary Procedure Name Responsible Anesthesiologist Anesthesia Start Time Anesthesia Stop Time PARATHYROIDECTOMY OR EXPLORATION OF PARATHYROID(S) (WRVU 15.6) (Neck) Genaro Rollins MD 11/10/17 1651 11/10/17 1914 Events Date Time Event Comment 11/10/2017 1609 1651 AN Verify 1651 Start 1651 An Start Data 1655 An Induction 1659 An Intubation 1704 Quick Note Attempted parvez placement to bilat radial arteries [id number] unsuccessfully. Decision to draw PTH peripherally from foot when required. 1710 Break/Relief In Renay bullock man, AUTOMATION MACHINE OPERATOR 171 Anesthesia Ready 1725 Quick Note 10cc's 0.25% Bu pivacaine with 1:200K epi injected by surgeon 1807 Quick Note Pre-excision sa mple 1910 Extubation/LMA Out 1912 an stop data 1913 Recovery or ICU Handoff Nolvia ent care was transferred to the destination unit staff after review of the patient's medical history, current anesthetic/surgical status and plan, according to the Provider Handoff Checklist. 1913 Stop Meds Name Total Midazolam 2 mg fentaNYL 100 mcg Propofol 350 mg PHENYLephrine 200 mcg ePHEDrine 5 mg Ondansetron 8 mg Dexamethasone 8 mg ceFAZolin (ANCEF) 2g in dextrose 5% 100 mL 2 g Succinylcholine 80 mg Albuterol Inhaler 12 puff Propofol INF 1,066 mg Dexmedetomidine 24 mcg Lactated Ringers 700 mL * Agents Name O2 Air N2O Sevoflurane (et) * Blood No blood administrations on file. Lines, Drains, and Airways Type Details Placement Removal Incision 11/10/17; neck; 12/10/21 (LDA cleanup utility RA#[id number]); 1715 (LDA cleanup utility RA#[id number]) 11/10/17 0000 by Yoly Hammond RN 12/10/21 171 by Nuha Villarreal (RETIRED) Peripheral IV Line - Single Lumen 11/10/17; metacarpal vein (top of hand), left; 20 gauge; 11/11/17; 0929 11/10/17 0000 by Yoly Hammond RN 11/11/17 0929 by Vee Leon RN ETT Mask Ventilation: George ko (1); ETT Type: NIM, Cuffed; ETT Size: 7 mm; Gastelum Blade: 2; Notes: Asleep, Pre-O2, RSI, Stylette; Attempts: 1; Laryngoscopy Grade: 1; ETT Placement Verified By: Auscultation, Capnometry; Secured at Teeth: 21 cm; Inserted by: Emilia; Removal Date: 11/10/17; Removal Time: 191011/10/171703 by Marie Nieto CRNA 11/10/171910 by Marie Nieto CRNA documented in this encounter Social History [...] OR Notes * Anesthesia Postprocedure Evaluation - Genaro Rollins MD - 11/10/2017 8:49 PM EDT [facility] [place] Department of Anesthesiology Post-procedure Note Patient: Kallie Darling Procedure Summary Date Anesthesia Start Anesthesia Stop Room / Location 11/10/171650 [facility] OR / [facility] MAIN OR Procedure Diagnosis Surgeon Responsible Provider PARATHYROIDECTOMY OR EXPLORATION OF PARATHYROID(S) (WRVU 15.6) (N/A Neck); FACIAL NERVE MONITORING,SETUP LARYNGEAL (WRVU 1.57) (N/A Neck) (HPT) Ana Dias MD Spence, Brian C, MD All Anesthesia Providers: Anesthesiologist: Genaro Rollins MD AUTOMATION MACHINE OPERATOR: Marie Nieto CRNA Most Recent Vitals: 11/10/172044 BP: Pulse: Resp: Temp: 36.6 ??C (97.9 ??F) SpO2: 92% Pain 0 (11/10/172029) Patient Location: PACU/[facility] Level of Consciousness: Awake and Alert Pain Management: Satisfactory Analgesia PONV: None Cardiovascular Status: Hemodynamically Stable Respiratory Status: Stable Respiratory Status Postoperative Fluid Status: Intravascular EUvolemia Possible Anesthetic Complications: NONE apparent at time of evaluation Final Primary Anesthesia Type: General (The anesthetic type performed was the same as planned.) Comments: * Anesthesia Preprocedure Evaluation - Genaro Rollins MD - 10/16/2017 5:38 PM EDT Pre-Anesthesia Evaluation for: Kallie Darling a 57 y.o. female. Procedure(s): PARATHYROIDECTOMY OR EXPLORATION OF PARATHYROID(S) (WRVU 15.6) FACIAL NERVE MONITORING, SETUP LARYNGEAL (WRVU 1.57) Patient Active Problem List Diagnosis ??? Obesity (BMI 30-39.9) ??? Smokes She reports smoking <1/2 ppd to >2 ppd. ??? CVA (cerebral vascular accident) ~August 2017. Describes left-sided numbness of face, arm, leg--now resolved. ??? Alcoholism in remission Reports abstaining since ~ Apr 2017. ??? SOCORRO (obstructive sleep apnea) ??? GERD [...] thumb ??? HYSTERECTOMY 1979 ??? KNEE ARTHROSCOPY 2001 left ? ? PRO [facility] EBUS GUIDED SAMPL 3/> NODE STATION/STRUX N/A 09/11/2017 BRONCH, W ENDOBRONCHIAL ULTRASOUND (EBUS) GUIDED SAMPLING, 3+ NODES (WRVU 5.21) performed by Josh Guadarrama MD at [facility] ENDOSCOPY ??? PRO COLONOSCOPY, BIOPSY 01/27/2014 COLONOSCOPY FLEXIBLE, WITH BX performed by Natividad Taveras MD at [facility] ENDOSCOPY ??? PRO COLONOSCOPY, DIAGNOSTIC 02/17/2012 COLONOSCOPY, DIAGNOSTIC performed by ENRICO RUGGIERO at [facility] ENDOSCOPY ??? PRO COLONOSCOPY, DIAGNOSTIC 2012 COLONOSCOPY, DIAGNOSTIC performed by Natividad Taveras MD at [facility] ENDOSCOPY ??? PRO NEEDLE BIOPSY LIVER 01/28/2012 ??? PRO UPPER GI ENDOSCOPY, BIOPSY N/A 10/21/2016 UPPER GASTROINTESTINAL ENDOSCOPY,WITH BIOPSY SINGLE OR MULTIPLE (WRVU 2.49) performed by Matthew Garcia MD at [facility] ENDOSCOPY ??? PRO UPPER GI ENDOSCOPY, DIAGNOSTIC N/A 10/21/2016 EGD, UPPER GI ENDOSCOPY performed by Matthew Garcia MD at [facility] ENDOSCOPY ??? UPPER GI ENDOSCOPY, EXAM 2012 UPPER GI ENDOSCOPY performed by Natividad Taveras MD at [facility] ENDOSCOPY Social History Substance Use Topics ??? [...] home medications have been reviewed. Physical Exam: There were no vitals filed for this visit. There is no height or weight on file to calculate BMI. Airway Assessment: Mallampati: I TM distance: >3 FB Neck ROM: full Cardiovascular Assessment: cardiovascular exam normal PE comment: RRR, slight S1 splitting, 1/6 systolic murmur. Distant heart sounds. Pulmonary Assessment: breath sounds clear to auscultation PE comment: O2 sat 98% on RA. No cough or conversational dyspnea. Dental Assessment: (+) upper dentures Comment: Edentulous. Misc Assessment: IV access: Peripheral line Other exam findings: Alert, pleasant, cognition grossly intact, gait steady. Anesthesia Plan: ASA 3 general, with a(n) intravenous induction 57 y.o. female with right lower parathyroid nodule with mediastinal extension presenting for parathyroidectomy. PMH significant for recent CVA (on Plavix, last 7 days ago), cirrhosis (with portal HTN, on carvedilol), COPD, DM2 (on Novolog, metformin), SOCORRO (not on CPAP). Anesthetic hx: No reported prior complications with anesthesia Airway hx: Grade 1 with Gastelum 2. Exercise tolerance: greater than 4 METs EKG: n/a ECHO: n/a Lab Results Component Value Date HGB 14.0 08/30/2015 PLATELET 107 (L) 08/30/2015 INR 1.2 (H) 08/30/2015 NA 138 08/30/2015 K 4.1 08/30/2015 CREATININE 0.76 08/30/2015 No results for input(s): ABORH in the last 7068 hours. Allergies: -- Amoxicillin-Pot Clavulanate -- Nausea Only -- Bacitracin -- Nausea Only -- Gramicidin D -- Nausea Only -- Neomycin Sulfate -- Nausea Only -- Polymyxin B -- Nausea Only -- Aspirin -- Nausea And Vomiting -- Lactose -- Other (See Comments) -- GI Upset NPO Status: Appropriate Anesthetic Plan: GA with NIM tube, standard ASA monitors, A-line, PIV. Informed Consent: Anesthetic plan and risks discussed with patient. Use of blood products discussed with patient who consented to blood products. Plan discussed with AUTOMATION MACHINE OPERATOR. [facility] Staff Documentation: Reason for PAT Contact: Surgeon Request Hx of Anesthesia Problem: Denies. Was Patient Seen in [facility]? Yes Additional/Outside Data Requested? Request medical information from outside organization: H&P from PCP to be completed on 11/07/2017. Findings, Assessment and Action: Ms. Darling is a 57 y.o. year old female seen in [facility] prior to planned parathyroidectomy with Dr. Ana Dias. Pre-op questionnaire was reviewed. Notable responses include: Hx CVA/TIA; able to lie flat; can ascend 1 FOS/walk 2 blocks without stopping; lung problem; GERD; DM; nerve disorder (sic); snores, unintended napping, daytime fatigue; smokes (1/2-->2 ppd). Pertinent PMH includes: Asthma (inhalers); obesity (BMI 38); GERD (PPI); CVA; SOCORRO, no CPAP and losther oral appliance; DM2 (metformin, insulin); hypothyroidism (Synthroid); current smoker; HARDEN; abstaining from etoh. ROS: Denies angina, palpitations, syncope, orthopnea, lower extremity edema. Occasional chest wall pain she attributes to the parathyroid mass and for which she was on MSIR briefly. Denies SOB, wheezing. Occasional cough. Uses Advair qd and albuterol ~ q 4 hrs. She does not believe she is still on prednisone. GERD sx despite PPI. Exercise tolerance is fair to moderate. 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 Anesthesia record 09/11/2017: Gr 1 view with Gastelum 2, #1 attempt. I discussed techniques and merits of smoking cessation. Dr. Dias will request records from a cardiac work-up. I assured her that she would have the opportunity to speak with her anesthesiologist the morning ofthe surgery regarding the specific plan for anesthesia. Given her constellation of co-morbidities, I will alert the floor manager ahead of time so an optimal assignment can be made. Leilani El APRN Pre-Admission Testing [phone] documented in this encounter Plan of Treatment Upcoming Encounters Date Type Department Care Team (Late st Contact Info) Description 02/27/2024 2:45 PM EST TH Visit (TeleHealth) [place] [address] Lashae Lorenzo MD [facility] [place] [address] documented as of this encounter Visit Diagnoses Not on filedocumented in this encounter Administered Medications Inactive Administered Medications - up to 3 most recent administrations Medication Order MAR Action Action Date Dose Rate Site albuterol 90 mcg/actuation inhaler PRN, Starting on Fri11/10/17 at 1700, Until Fri11/10/17 at 1914, Wheezing, Anesthesia Intra-op, Routine Given 11/10/2017 7:10 PM EDT 6 puffs Given 11/10/2017 5:00 PM EDT 6 puffs ceFAZolin (ANCEF) 2g in dextrose 5% 100 mL 2 g, Intravenous, EVERY 8 HOURS, First dose on Fri11/10/17 at 1645, Until Discontinued, Administer over 30 Minutes, Indication for (Active or Suspected): Prophylaxis Given 11/10/2017 5:19 PM EDT 2 g dexamethasone (DECADRON) injection PRN, Starting on Fri11/10/17 at 1745, Until Fri11/10/17 at 1914, Anesthesia Intra-op, Routine Given 11/10/2017 5:45 PM EDT 8 mg dexmedetomidine (PRECEDEX) injection PRN, Starting on Fri11/10/17 at 1746, Until Fri11/10/17 at 1914, Anesthesia Intra-op, Routine Given 11/10/2017 5:55 PM EDT 8 mcg Given 11/10/2017 5:50 PM EDT 8 mcg Given 11/10/2017 5:46 PM EDT 8 mcg ePHEDrine 5 mg/mL multi-dose injection PRN, Starting on Fri11/10/17 at 1839, Until Fri11/10/17 at 1914, Anesthesia Intra-op, Routine Given 11/10/2017 6:39 PM EDT 5 mg fentaNYL 50 mcg/mL multi-dose injection PRN, Starting on Fri11/10/17 at 1655, Until Fri11/10/17 at 1914, Pain, Anesthesia Intra-op, Routine Given 11/10/2017 5:07 PM EDT 50 mcg Given 11/10/2017 4:55 PM EDT 50 mcg lactated Ringers infusion CONTINUOUS PRN, Starting on Fri11/10/17 at 1651, Until Fri11/10/17 at 1914, Anesthesia Intra-op New Bag 11/10/2017 4:51 PM EDT midazolam (PF) (VERSED) 1 mg/mL multi-dose injection PRN, Starting on Fri11/10/17 at 1651, Until Fri11/10/17 at 1914, Sleep, Anesthesia Intra-op, Routine Given 11/10/2017 4:51 PM EDT 2 mg ondansetron (ZOFRAN) injection PRN, Starting on Fri11/10/17 at 1847, Until Fri11/10/17 at 1914, Nausea, Anesthesia Intra-op, Routine Given 11/10/2017 6:47 PM EDT 8 mg PHENYLephrine in NS (PF) (MAUDE-SYNEPHRINE) 0.8 mg/10 mL (80 mcg/mL) multi-dose injection Syrg PRN, Starting on Fri11/10/17 at 1702, Until Fri11/10/17 at 1914, Anesthesia Intra-op, Routine Given 11/10/2017 6:32 PM EDT 40 mcg Given 11/10/2017 6:21 PM EDT 80 mcg Given 11/10/2017 5:02 PM EDT 80 mcg propofol (DIPRIVAN) 10 mg/mL bolus injection (Anesthesia) PRN, Starting on Fri11/10/17 at 1655, Until Fri11/10/17 at 1914, Anesthesia Intra-op Given 11/10/2017 5:51 PM EDT 50 mg Given 11/10/2017 5:09 PM EDT 100 mg Given 11/10/2017 4:55 PM EDT 200 mg propofol (DIPRIVAN) infusion CONTINUOUS PRN, Starting on Fri11/10/17 at 1704, Until Fri11/10/17 at 1914, Anesthesia Intra-op, Routine Rate/Dose Change 11/10/2017 6:20 PM EDT 100 mcg/kg/min 62.4 mL/hr Rate/Dose Change 11/10/2017 5:52 PM EDT 125 mcg/kg/min 78 mL/hr Rate/Dose Change 11/10/2017 5:45 PM EDT 100 mcg/kg/min 62. 4 mL/hr succinylcholine chloride (Quelicin) injection PRN, Starting on Fri11/10/17 at 1656, Until Fri11/10/17 at 1914, Anesthesia Intra-op, Routine Given 11/10/2017 4:56 PM EDT 80 mg documented in this encounter Care Teams Betting Agency Manager Relationship Specialty Start Date End Date Mehul Valladares DO [address] [place] [address] PCP - General General Internal Medicine 09/04/17 documented as of this encounter
--- OUTSIDE RECORDS SUMMARY | 2024-01-23 00:33 | XMS_ITS | Encounter Summary ---
[place] [address] Care Team Providers Care Marksmanship Instructor Name Role Phone Grant Lindsey MD Primary Care Provider [phone] Encounter Details Date Type Department Care Team (Late st Contact Info) Description 09/15/2019 Telephone Gastroenterology at [place], [place] [id number] Holley Hassan Social History Tobacco Use Types Packs/Day Years [...] encounter Miscellaneous Notes * Telephone Encounter - Holley Hassan - 09/15/2019 10:54 AM EDT Spoke with patient about rescheduling her egd/colonoscopy, but she had this done closer to home. documented in this encounter Plan of Treatment Upcoming Encounters Date Type Department Care Team (Late st Contact Info) Description 02/27/2024 2:45 PM EST TH Visit (TeleHealth) [place] [address] Lashae Lorenzo MD [facility] [place] [address] documented as of this encounter Visit Diagnoses Not on filedocumented in this encounter Care Teams Marksmanship Instructor Relationship Specialty Start Date End Date Grant Lindsey MD PCP - General Family Medicine 02/25/19 documented as of this encounter
--- OUTSIDE RECORDS SUMMARY | 2024-01-23 00:33 | XMS_ITS | Encounter Summary ---
Author Organization [facility] [place] [address] Care Team Providers Care Diet Tech Name Role Phone Mehul Valladares DO Primary Care Provider [phone] Encounter Details Date Type Department Care Team (Late st Contact Info) Description 10/16/2017 10:45 AM EDT [place] [address] Social History Tobacco Use Types Packs/Day Years [...] EST TH Visit (TeleHealth) [place] [phone] Lashae Lorenzo MD [facility] [place] [address] documented as of this encounter Visit Diagnoses Not on filedocumented in this encounter Care Teams Diet Tech Relationship Specialty Start Date End Date Mehul Valladares DO [address] [place] [address] PCP - General General Internal Medicine 09/04/17 documented as of this encounter
--- OUTSIDE RECORDS SUMMARY | 2024-01-23 00:33 | XMS_ITS | Encounter Summary ---
Author Organization [facility] [place] [address] Care Team Providers Care Resolution Rep Name Role Phone Mehul Valladares DO Primary Care Provider [phone] Reason for Visit * Consultation (Routine) - Closed Specialty Diagnoses / Procedures Referred By Nicol sparks Referred To Contact General Surgery Diagnoses Parathroid tumor; ? if needs chest surgeon Mehul Valladares DO [address] [place] [address] [facility] Gen Surgery [address] [place] [address] Referral ID Status Reason Start Date Expiration Date V isits Requested Visits Authorized [id number] Closed Consult, Test & Treat Connection Center 09/24/2017 09/24/2018 1 1 Encounter Details Date Type Department Care Team (Late st Contact Info) Description 10/16/2017 9:30 AM EDT Office [place] [address] Ana Dias MD [facility] [place] [address] Hyperparathyroidism, primary Social History Tobacco Use Types Packs/Day Years [...] Sign Reading Time Taken Comments Blood Pressure 128/76 10/16/2017 9:36 AM EDT Pulse 71 10/16/2017 9:36 AM EDT Temperature - - Respiratory Rate 16 10/16/2017 9:36 AM EDT Oxygen Saturation 98% 10/16/2017 9:36 AM EDT Inhaled Oxygen Concentration - - Weight 104.3 kg (230 lb) 10/16/2017 9:36 AM EDT Height - - Body Mass Index 38.27 09/04/2017 9:48 AM EDT documented in this encounter Progress Notes * Ana Dias MD - 10/16/2017 9:30 AM EDT Endocrine Surgery Initial Consultation HPI: Ms. Kallie Darling is a very pleasant 57 y.o. year old female with multiple medical comorbidities including recent CVA with minimal left-sided residual deficits, HTN, DM, SOCORRO, and cirrhosis (HARDEN/MONA) with portal hypertension who presents for evaluation of primary hyperparathyroidism as a referral from Dr. Valladares. This was diagnosed at least 5 years ago, and she saw Dr. Woods in December of 2012, at which time she was noted to have osteopenia on DEXA scan and a right lower parathyroidadenoma on sestamibi scan. At the time, she was not thought to meet criteria for surgery, and because her medical comorbidities made her a poor surgical candidate, parathyroidectomy was deferred. It is not clear from her records that she was followed subsequently for her hypercalcemia. Earlier thisspring, she had the CVA, and in that setting was apparently complaining of substernal and left-sided chest pain. A CT was done to look for possible PE, and showed a 4cm right-sided superior mediastinal mass. She was sent to pulmonology, and an EBUS-guided FNA was performed on 09/11/17. This returnedconsistent with parathyroid tissue. There may be a history of nephrolithiasis. Her records from June when she saw GI mention that she was complaining of flank pain and hematuria. She tells me that she has blood in her urine every 2-3 days and that she frequently has flank pain. It is unclear whether she has a history of osteoporosis. The most recent DEXA available to me today is from 2012 and showed osteopenia. There is a recent history of fractures--she broke her right ankle standing up from the couch a couple months ago. She reports symptoms of hyperparathyroidism includingfatigue, malaise, mood depression, nocturia x 4, constipation and achiness. Her primary complaint is of constant substernal chest pressure, not alleviated or exacerbated by anything. She tells me she had a negative cardiac workup earlier this spring. There is not a history of previous anterior neck surgery. She does not have a family history of endocrinopathies, hypercalcemia or endocrine malignancy. She presentstoday for consideration of surgical management of her hyperparathyroidism. Recent labs: Serum calcium 11.6 mg/dL PTH 159 pg/mL 25-OH Vitamin D ng/mL Ionized Calcium 5.7 (4.6-5.3) Mg/dL Phosphorus mg/dL 24 hour urine calcium mg/24hr Recent studies: Recent DEXA scan (11/2012): osteopenia (lowest T score -1.4 in the femoral neck) Sestamibi scan (11/2012): possible right lower parathyroid abnormality Cervical ultrasound has not yet been performed. Past Medical History: Diagnosis Date ??? Allergic [...] KNEE ARTHROSCOPY 2001 left ? ? PRO [facility] EBUS GUIDED SAMPL 3/> NODE STATION/STRUX N/A 09/11/2017 BRONCH, W ENDOBRONCHIAL ULTRASOUND (EBUS) GUIDED SAMPLING, 3+ NODES (WRVU 5.21) performed by Josh Guadarrama MD at [facility] ENDOSCOPY ??? PRO COLONOSCOPY, BIOPSY 01/27/2014 COLONOSCOPY FLEXIBLE, WITH BX performed by Natividad Taveras MD at [facility] ENDOSCOPY ??? PRO COLONOSCOPY, DIAGNOSTIC 02/17/2012 COLONOSCOPY, DIAGNOSTIC performed by ENRICO RUGGIERO at [facility]COPY ??? PRO COLONOSCOPY, DIAGNOSTIC 2012 COLONOSCOPY, DIAGNOSTIC performed by Natividad Taveras MD at [facility] END[facility]COPY ??? PRO NEEDLE BIOPSY LIVER 01/28/2012 ??? PRO UPPER GI ENDOSCOPY, BIOPSY N/A 10/21/2016 UPPER GASTROINTESTINAL ENDOSCOPY,WITH BIOPSY SINGLE OR MULTIPLE (WRVU 2.49) performed by Matthew Garcia MD at [facility] ENDOSCOPY ??? PRO UPPER GI ENDOSCOPY, DIAGNOSTIC N/A 10/21/2016 EGD, UPPER GI ENDOSCOPY performed by Matthew Garcia MD at [facility] ??? UPPER GI ENDOSCOPY, EXAM 2012 UPPER GI ENDOSCOPY performed by Natividad Taveras MD at [facility] END[facility] Current Outpatient Prescriptions on File Prior to Visit Medication Sig Dispense Refill ??? NOVOLOG FLEXPEN U-100 INSULIN Insulin Pen inject subcutaneously three times a day as directed with meals (I... (REFER TO PRESCRIPTION NOTES). 1 ??? [DISCONTINUED] ADVAIR HFA 230-21 mcg/actuation HFA Aerosol Inhaler 0 ??? [DISCONTINUED] metFORMIN (GLUCOPHAGE) 500 mg Tablet take 1 tablet by mouth twice a day with meals 0 ??? [DISCONTINUED] gabapentin (NEURONTIN) 100 mg Capsule Take 1 capsule by mouth 3 times daily. 90 capsule 12 ??? cyanocobalamin 1,000 mcg Tablet 0 ??? carvedilol (COREG) 6.25 mg Tablet Take 1 tablet by mouth 2 times daily (with meals). 180 tablet3 ??? levothyroxine (SYNTHROID) 50 mcg Tablet Take 50 mcg by mouth daily. ??? [DISCONTINUED] citalopram (CELEXA) 20 mg Tablet Take 20 mg by mouth daily. ??? SENNALAX-S 8.6-50 mg Tablet take 2 tablets by mouth at bedtime 0 ??? [DISCONTINUED] gabapentin (NEURONTIN) 300 mg capsule Take 300 mg by mouth 2 times daily. No current facility-administered medications on file prior to visit. Allergies as of 10/16/2017 - Review Complete 10/16/2017 Allergen Reaction Noted ??? Amoxicillin-pot clavulanate Nausea Only ??? Bacitracin Nausea Only ??? Gramicidin d Nausea Only ??? Neomycin sulfate Nausea Only ??? Polymyxin b Nausea Only ??? Aspirin Nausea And Vomiting ??? Lactose Other (See Comments) 07/30/2010 Family History: No thyroid cancer. No pituitary, pancreas or adrenal tumors. No parathyroid disease. Social History: smoking anywhere from 6 cigarettes to 2.5 packs per day--says she has more good days than bad ones. Sober x 7 months, but has a heavy drinking history. Tells me she routinely drank a 30-pack by herself and sometimes would drink 2 30-packs. Has been easier to abstain since her ex-hu sband went to a fpc. Lives alone. Has three daughters, two granddaughters, and a grandson.No professional public speaking or singing Review of Systems: Negative/Normal Positive/Abnormal Energy Level [] Fatigue, malaise Fever [x] Appetite [x] Weight Loss/Gain [x] ENT [x] Cardiovascular [x] Respiratory [x] Gastrointestinal [x] Bleeding [x] Bruising [x] Genitourinary [] Nocturnal frequency and hematuria Musculoskeletal [] Some aching in bones Endocrine [x] Neuro [] Mild residual left-sided deficits from stroke in spring 2017 Psych [] Decreased concentration and mood Encounter Vitals: BP 128/76 Pulse 71 Resp 16 Wt 104.3 kg (230 lb) SpO2 98% BMI 38.27 kg/m2 Physical Exam: System Normal Abnl Findings General [] [x] Obese, mild left-sided facial droop Skin [x] [] Warm and dry Neck [x] [] No thyromegaly, no masses, trachea midline Lymph Nodes [x] [] No cervical lymphadenopathy Lungs [x] [] Normal respiratory effort, clear to auscultation bilaterally Cardiovascular [x] [] Regular rate and rhythm, no murmurs Extremities [x] [] Warm, no edema, full ROM Neuro [x] [] Motor intact, voice normal Psych [x] [] Normal mood and affect; responds to questions appropriately Procedures performed this visit: Thyroid, Parathyroid and Cervical Ultrasound I performed a thyroid, parathyroid and cervical ultrasound at the time of the clinic visit today using the 12 mHz linear ultrasound transducer. The thyroid, parathyroid and central and bilateral lateral neck lymph node basins were evaluated. The findings include: Thyroid Isthmus: Thickness: 0.25 cm Nodules: none Right lobe: Lobe: 4.09 x 1.63 x 1.79 cm Nodules: several scattered subcentimeter cystic nodules Left lobe: Lobe: 4.18 x 1.26 x 1.63 cm Nodules: a few scattered subcentimeter cystic nodules In the right lower parathyroid location is a hypoechoic nodule measuring 3.14+ x 1.88+ x 1.74cm. Because of mediastinal extension, unable to fully measure the gland in the sagittal and AP dimensions. Cervical lymph nodes Central neck: Normal ultrasonographic appearing lymph nodes Right lateral neck: Normal ultrasonographic appearing lymph nodes Left lateral neck: Normal ultrasonographic appearing lymph nodes Assessment and Plan: Ms. Kallie Darling is a 57 y.o. year old female with multiple significant medical comorbidities, including cirrhosis and recent CVA on Plavix with symptomatic biochemical primary hyperparathyroidism dating back at least 5 years. On her initial surgical evaluation, she was deemed a non-surgical c andidate. The parathyroid adenoma has come to attention again in an unusual way--initially suspected to be a thoracic malignancy based on CT scan appearance, but then biopsied and confirmed to be parathyroid tissue. Her calcium level is >1mg/dL over normal. Her bone density status is unclear because there is no recent DEXA, though she did have osteopenia documented 5 years ago and a recent fracture. She also has a clinical history that may be consistent with nephrolithiasis (hematuria and flank pain), but I'm not sure if any workup has been done. Parathyroid localization studies including ultrasound and sestamibi scan indicate a very large right lower parathyroid abnormality with a superior mediastinal component. We discussed the typical work up and management of primary hyperparathyroidism. I therefore recommended minimally invasive parathyroidectomy with intraoperative parathyroid hormone monitoring. If IOPTH levels do not decrease appropriately, we will proceed with a bilateral e xploration. I discussed the risks of parathyroidectomy with the patient including, but not limited to, nerve injury resulting in voice changes or hoarseness of voice, low calcium related to removal of parathyroid tissue, bleeding which may require reoperation, infection and complications related to anesthesia. We discussed the fact that she is at higher risk because of her comorbidities. I will attempt to obtain the results of her reported recent cardiac workup and to touch base with her GI doctors to get a sense for her risk with general anesthesia. She did tolerate anesthesia for her EBUS here in August. I am sending her to the pre-op anesthesia clinic today. The patient confirmed understanding of these risks and consent was obtained today. Surgery will be scheduled for the soonest mutually convenient date pending medical clearance. Her Plavix will be held for 5 days pre-operatively, andshe will be admitted post-operatively. [facility] Data Patient Characteristics Body mass index is 38.27 kg/(m^2). Patient Ethnicity & Race Ethnic Group Patient Race Not nor White Prior neck irradiation: no Prior anterior neck surgery: no Pre-operative laryngoscopy: no Anti-coagulation meds (aspirin, warfarin, clopidogrel, heparin, oral thrombin or factor Xa inhibitors): yes Disease Characteristics Primary Pre-Operative Diagnosis: sporadic primary hyperparathyroidism Persistent/Recurrent Hyperparathyroidism: No Calcium: high 24-hour Urine calcium: not examined GFR decreased: No Ionized calcium: high PTH: high [id number] D: not examined Subjective Symptoms: yes Objective Symptoms: yes Imaging Studies: Localization studies performed: yes Localization study type: ultrasound and sestamibi Ultrasound result: Localized single gland with high confidence Sestamibi result: Localized single gland with high confidence documented in this encounter Plan of Treatment Upcoming Encounters Date Type Department Care Team (Late st Contact Info) Description 02/27/2024 2:45 PM EST TH Visit (TeleHealth) [place] [address] Lashae Lorenzo MD [facility] [place] [address] documented as of this encounter Visit Diagnoses Diagnosis Hyperparathyroidism, primary Primary hyperparathyroidism documented in this encounter Care Teams Resolution Rep Relationship Specialty Start Date End Date Mehul Valladares DO [address] [place] [address] PCP - General General Internal Medicine 5/24/18 11/ 13/19 documented as of this encounter
--- OUTSIDE RECORDS SUMMARY | 2024-01-23 00:33 | XMS_ITS | Encounter Summary ---
Author Organization [facility] [place] [address] Care Team Providers Care Mailer Apprentice Name Role Phone Mehul Valladares DO Primary Care Provider [phone] Encounter Details Date Type Department Care Team (Late st Contact Info) Description 12/12/2017 Telephone [place] [phone] Ana Dias MD [facility] [place] [address] Social History Tobacco Use Types Packs/Day Years [...] encounter Miscellaneous Notes * Telephone Encounter - Ana Dias MD - 12/12/2017 8:49 AM EDT Called patient because I got a copy of her calcium level from her PCP, which is normal (9.7). She tells me that she feels like crap. She reports that the incision is all red and puffy, but that she saw her PCP and that he doesn't think anything is wrong with it. She says she has a constant stabbing pain where her thyroids used to be. She is not really able to describe it in more detail. She says she is not taking any pain medication. She says it was fine for about 2 weeks before it started kicking in. It sounds like she is taking the calcium intermittently and still taking it three times a day sometimes. She is not having any hypocalcemic symptoms. I let her know to wean this back to once a day only for general bone health and that she does not need to have additional blood work before my appointment next week. She does still want to be seen so that I can assess the incision. I let her know that it would be very unusual to develop an infection a month after surgery, but if there is redness/drainage or she develops fevers, she should be seen before next week. documented in this encounter Plan of Treatment Upcoming Encounters Date Type Department Care Team (Late st Contact Info) Description 02/27/2024 2:45 PM EST TH Visit (TeleHealth) [place] [address] Lsahae Lorenzo MD [facility] [place] [address] documented as of this encounter Visit Diagnoses Not on filedocumented in this encounter Care Teams Mailer Apprentice Relationship Specialty Start Date End Date Mehul Valladares DO [address] [place] [id number] PCP - General General Internal Medicine 09/04/17 documented as of this encounter
--- OUTSIDE RECORDS SUMMARY | 2024-01-23 00:33 | XMS_ITS | Encounter Summary ---
[place] [address] Care Team Providers Care Scrub Nurse Name Role Phone Mehul Valladares DO Primary Care Provider Encounter Details Date Type Department Care Team (Latest Contact Info) Description 09/03/2018 10:05 PM EDT - 09/03/2018 11:59 PM EDT Hospital [place] [phone] Discharge Disposition: Home Social History Tobacco Use [...] Sig Dispensed Refills Start Date End Date Loratadine (Claritin Reditabs) 5 mg disintegrating tablet [...] (E.C.) Take 40 mg by mouth daily. calcium citrate-vitamin D (CALCIUM CITRATE +) 315-200 mg-unit Tablet Take 2 tablets by mouth 3 times daily (with meals). 11/11/2017 01/16/2023 metformin HCl (METFORMIN ORAL) Take 1,000 mg by mouth 2 times daily. 05/30/2022 citalopram (CELEXA) 40 mg Tablet Take 40 mg by mouth daily. 01/09/2023 pravastatin (PRAVACHOL) 80 mg Tablet Take 80 mg by mouth daily. 05/30/2022 fluticasone-salmetero l (ADVAIR HFA) 45-21 mcg/actuation HFA Aerosol Inhaler Inhale 2 puffs into the lungs 2 times daily. 01/09/2023 clopidogrel (PLAVIX) 75 mg Tablet Take 75 mg by mouth daily. 01/07/2023 NOVOLOG FLEXPEN U-100 INSULIN Insulin Pen inject subcutaneously three times a day as directed with meals (I... (REFER TO PRESCRIPTION NOTES). 1 07/23/2017 01/09/2023 cyanocobalamin 1,000 mcg Tablet 0 08/25/2016 01/16/2023 carvedilol (COREG) 6.25 mg TabletIndications:Alc oholic cirrhosis of liver without ascites Take 1 tablet by mouth 2 times daily (with meals). 180 tablet 3 03/20/2015 05/30/2022 levothyroxine (SYNTHROID) 50 mcg Tablet Take 50 mcg by mouth daily. 01/16/2023 documented as of this encounter Plan of Treatment Upcoming Encounters Date Type Department Care Team (Late st Contact Info) Description 02/27/2024 2:45 PM EST TH Visit (TeleHealth) [place] [address] Lashae Lorenzo MD [facility] [address] documented as of this encounter Procedures Procedure Name Priority Date/Time Associated Diagnosis Comments SURGICAL PATHOLOGY REPORT Routine 09/03/2018 12:00 PM EDT documented in this encounter Results * Surgical Pathology Report (09/03/2018 12:00 PM EDT) Final Diagnosis [id number] ? Location: [facility] The signing pathologist has (i) examined the relevant preparation(s) for the specimen(s) and (ii) rendered or confirmed the diagnosis(es). . 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 Electronically signed by: ??Dasia STOCKTON, Cj Henson Verified: ??09/11/2018 ?Pathologist Performed at: ??-[facility] Dept. of Pathology, [place], [place] CLINICAL INFORMATION Specimen Submitted: A - Right third toe Provided clinical history/diagnosis: Chronic pain D/T remote fracture PIPJ. Referring Identifier: ??[id number] SPECIMEN PROCESSING A - Labeled/Fixative: Right third toe, formalin. Quantity/Size: ??Single, 3.5 x 1.8 x 1.5 cm Tissue Description: Recognizable phalanx resected across the MIP joint. Lesion: No lesions identified. Nail: 1.1 x 0.9 cm, unremarkable. Skin: Intact, amador-white. Bone: ??Intact, yellow florian with slight discoloration of the distal phalanx. Sections/Processin g: Blocks submitted for decalcification: A1. Appliance Counselor sections in 1 cassettes as follows: ?A1: ??Longitudinal cross-section ??ejr 09/11/2018 10:34 AM EDT [facility] Extremity 09/03/2018 12:0 0 PM EDT 09/03/2018 12:00 PM EDT Narrative Resulting Agency Comment Spec In Lab / [facility] Cassandra Loco DPM PATHOLOGY/CYTOLOGY O RDERABLES [facility] [place] [address] documented in this encounter Visit Diagnoses Not on filedocumented in this encounter Care Teams Scrub Nurse Relationship Specialty Start Date End Date Mehul Valladares DO [address] [place] [address] PCP - General General Internal Medicine 09/04/17 documented as of this encounter
--- OUTSIDE RECORDS SUMMARY | 2024-01-23 00:33 | XMS_ITS | Encounter Summary ---
[place] [address] Care Team Providers Care Physical Chemistry Professor Name Role Phone Jacquelyn Mehul Lugo DO Primary Care Provider [phone] Encounter Details Date Type Department Care Team (Late Contact Info) Description 10/16/2017 Orders Only [place] [address] Leilani El, DIPLOMA DENTAL ASSISTANT [address] [facility] [address] [place] [address] Social History Tobacco Use Types Packs/Day Years [...] Encounters Date Type Department Care Team (Late Contact Info) Description 02/27/2024 2:45 PM EST TH Visit (TeleHealth) [place] [address] Lashae Lorenzo MD [facility] [place] [address] documented as of this encounter Visit Diagnoses Not on filedocumented in this encounter Care Teams Physical Chemistry Professor Relationship Specialty Start Date End Date Mehul Valladares DO [address] [place] [address] PCP - General General Internal Medicine 09/04/17 documented as of this encounter
--- OUTSIDE RECORDS SUMMARY | 2024-01-23 00:33 | XMS_ITS | Encounter Summary ---
Author Organization [facility] [place] [address] Care Team Providers Care Marketing Research Analyst Name Role Phone Mehul Valladares DO Primary Care Provider [phone] Reason for Visit * Reason Comments Referral * Consultation (Routine) - Closed Specialty Diagnoses / Procedures Referred By Nicol sparks Referred To Contact Pulmonology Diagnoses Lung mass lung mass, [place] medicaid Denied a PET scan. Bernadette Rivera III, MD [facility] [address] [place] [id number] Josh Guadarrama MD [facility] [place] [address] Referral ID Status Reason Start Date Expiration Date V isits Requested Visits Authorized [id number] Closed Consult, Test & Treat 08/29/2017 08/29/2018 1 1 Encounter Details Date Type Department Care Team (Late st Contact Info) Description 09/04/2017 10:00 AM EDT Office Visit Pulmonology at [facility] [place] [address] Josh Guadarrama MD [facility] [place] [address] Mediastinal mass Social History Tobacco Use Types Packs/Day Years [...] Sign Reading Time Taken Comments Blood Pressure 127/77 09/04/2017 9:48 AM EDT Pulse 76 09/04/2017 9:48 AM EDT Temperature - - Respiratory Rate 22 09/04/2017 9:48 AM EDT Oxygen Saturation 98% 09/04/2017 9:48 AM EDT Inhaled Oxygen Concentration - - Weight 110.2 kg (243 lb) 09/04/2017 9:48 AM EDT Height 165.1 cm (5' 5) 09/04/2017 9:48 AM EDT Body Mass Index 40.44 09/04/2017 9:48 AM EDT documented in this encounter Progress Notes * Josh Guadarrama MD - 09/04/2017 10:00 AM EDT Images from the original note were not included. [facility] Section of Pulmonary Medicine Outpatient Consultation Date of Encounter: 09/04/2017 Referring Provider: Bernadette Rivera Iii, [place] [address] PCP: Mehul Valladares DO Reason for Consult: I was asked to evaluate this patient for I have personally interviewed and examined the patient. I have independently viewed her radiographic studies, pulmonary function testing and laboratory data. Background/HPI / Current Symptoms: Pt is 57 yo woman, active smoker with multiple medical problems including recent CVA with minimal Lt sided residual deficits, HTN; DM; SOCORRO and cirrhosis (HARDEN/MONA) who was referred because of superior mediastinal mass. According to the patient when she had her CVA, she was experiencing substernal and Lt sided chest pain. A CTA was obtained to R/O PE. It showed a 4 cm superior mediastinal mass vs an enlarged upper paratracheal lymph node. She was evaluated by Dr. Rivera/Pulmonary at [facility] and was referred for EBUS and biopsy of the superior mediastinal mass. Pt is an active smoker, 6 cigs to 1 PPD since age 15. She is on multiple inhalers for COPD and plavix for her recent CVA. She does have a baseline dyspnea. She also states that she has intermittent cough with clear phlegm and occasional blood streak. She has not has any wt loss. She also has a history ETOH abuse, but has not taken any for the past five months. Review of Systems: A total of 10 systems were reviewed and were negative other than as listed below: Dyspnea, cough; B/L chest pain. Past Medical History: Past Medical History: Diagnosis Date ??? Allergic [...] Thyroid disease ??? Trauma Past Surgical History: Past Surgical History: Procedure Laterality Date ??? CHOLECYSTECTOMY 2009 ??? HAND SURGERY 1967 left thumb ??? HYSTERECTOMY 1979 ??? KNEE ARTHROSCOPY 2001 left ??? PRO COLONOSCOPY, BIOPSY 01/27/2014 COLONOSCOPY FLEXIBLE, WITH BX performed by Natividad Taveras MD at [facility] ENDOSCOPY ??? PRO COLONOSCOPY, DIAGNOSTIC 02/17/2012 COLONOSCOPY, DIAGNOSTIC performed by ENRICO RUGGIERO at [facility] ENDOSCOPY ??? PRO COLONOSCOPY, DIAGNOSTIC 2012 COLONOSCOPY, DIAGNOSTIC performed by Natividad Taveras MD at [facility] ENDOSCOPY ??? PRO NEEDLE BIOPSY LIVER 01/28/2012 ??? PRO UPPER GI ENDOSCOPY, BIOPSY N/A 10/21/2016 UPPER GASTROINTESTINAL ENDOSCOPY,WITH BIOPSY SINGLE OR MULTIPLE (WRVU 2.49) performed by Matthew Garcia MD at [facility] ENDOSCOPY ??? PRO UPPER GI ENDOSCOPY, DIAGNOSTIC N/A 10/21/2016 EGD, UPPER GI ENDOSCOPY performed by Matthew Garcia MD at [facility] ENDOSCOPY ??? UPPER GI ENDOSCOPY, EXAM 2012 UPPER GI ENDOSCOPY performed by Natividad Taveras MD at [facility] ENDOSCOPY Medications: Current Outpatient Prescriptions Medication Sig Dispense Refill ??? ADVAIR HFA 230-21 mcg/actuation HFA Aerosol Inhaler 0 ??? SENNALAX-S 8.6-50 mg Tablet take 2 tablets by mouth at bedtime 0 ??? metFORMIN (GLUCOPHAGE) 500 mg Tablet take 1 tablet by mouth twice a day with meals 0 ??? NOVOLOG FLEXPEN U-100 INSULIN Insulin Pen inject subcutaneously three times a day as directed with meals (I... (REFER TO PRESCRIPTION NOTES). 1 ??? gabapentin (NEURONTIN) 100 mg Capsule Take 1 capsule by mouth 3 times daily. 90 capsule 12 ??? cyanocobalamin 1,000 mcg Tablet 0 ??? carvedilol (COREG) 6.25 mg Tablet Take 1 tablet by mouth 2 times daily (with meals). 180 tablet3 ??? levothyroxine (SYNTHROID) 50 mcg Tablet Take 50 mcg by mouth daily. ??? citalopram (CELEXA) 20 mg Tablet Take 20 mg by mouth daily. ??? gabapentin (NEURONTIN) 300 mg capsule Take 300 mg by mouth 2 times daily. No current facility-administered medications for this visit. Allergies: Amoxicillin-pot clavulanate; Bacitracin; Gramicidin d; Neomycin sulfate; Polymyxin b; Aspirin; and Lactose Immunizations: Immunization History Administered Date(s) Administered ??? Influenza PF, Split 05/06/2013 ??? Influenza Vaccine, Whole 02/25/2008 ??? Pneumococcal Polyvalent 23 05/06/2013 Social History: Social History Substance Use Topics ??? Smoking status: Current Every Day Smoker Packs/day: 0.25 Years: 30.00 Types: Cigarettes ??? Smokeless tobacco: Never Used ??? Alcohol use No Comment: No ETOH x 3 months; Hx of 1-2 beers/day during week and 6-8 beers on weekend Family History: Family History Problem Relation Age of Onset ??? Heart Failure Mother ??? High Cholesterol Mother ??? Hypertension Mother ??? Diabetes Mother ??? Hypertension Father ??? Diabetes Maternal Grandmother ??? Cancer Maternal Grandmother ??? Cancer Paternal Grandfather ??? High Cholesterol Brother ??? Hypertension Brother ??? Glaucoma Maternal Aunt Examination: BP 127/77 Pulse 76 Resp 22 Ht 165.1 cm (5' 5) Wt 110.2 kg (243 lb) SpO2 98% BMI 40.44 kg/m2 General: WD/WN in no distress HEENT: PERRLA; EOMI; No cervical lymphadenopathy, significant post nasal drip Resp: CTA B/L No crackles or wheeze CV: RRR; S1 + S2; no murmurs GI: Normal BS; Abdomen soft and non-tender, no organomegaly Skin: No rash Extremities: No clubbing, no cyanosis, no edema MSK: Calves soft and non tender Neurologic: CN's: Very mild Lt facial droop, no weakness on the Lt upper and lower ext. normal gait Psych: Normal mood and affect Labs: Lab Results Component Value Date WBC 6.3 08/30/2015 HGB 14.0 08/30/2015 HCT 41.7 08/30/2015 PLATELET 107 (L) 08/30/2015 Imaging: Available CXR and CT Chest images were viewed personally and reports were reviewed. I agree with the radiology reads. CT Assessment: This is a 75 yo woman active smoker who presents with a superior mediastinal mass. Differentials include an enlarged upper paratracheal lymph node, ectopic thyroid, substernal goiter vs. Malignancy. The lesion is accessible via EBUS guided FNA. Pt is however on plavix for her recent CVA. Plan: I discussed the patient with her primary care, Dr. Valladares who agreed that it was ok to hold the plavix for a few days in anticipation for EBUS. Will schedule the patient for an EBUS. Follow up: After the procedure Thank you for the referral Patient was seen for a total of 45 minutes, with 35 minutes of that time spent in discussion with the patient regarding his current clinical condition, test results, and further management. Josh Guadarrama MD Pulmonary and Critical Care Medicine Pager #[phone] documented in this encounter Plan of Treatment Upcoming Encounters Date Type Department Care Team (Late st Contact Info) Description 02/27/2024 2:45 PM EST TH Visit (TeleHealth) [place] [address] Lashae Lorenzo MD [facility] [place] [address] documented as of this encounter Visit Diagnoses Diagnosis Mediastinal mass Swelling, mass, or lump in chest documented in this encounter Care Teams Marketing Research Analyst Relationship Specialty Start Date End Date Mehul Valladares DO [address] [place] [address] PCP - General General Internal Medicine 09/04/17 documented as of this encounter
--- OUTSIDE RECORDS SUMMARY | 2024-01-23 00:33 | XMS_ITS | Encounter Summary ---
Author Organization [facility] [place] [address] Care Team Providers Care Policyholder Information Clerk Name Role Phone Mehul Valladares DO Primary Care Provider [phone] Encounter Details Date Type Department Care Team (Late st Contact Info) Description 10/24/2017 Tele[place] [phone] Casandra Liu Social History Tobacco Use Types Packs/Day Years [...] encounter Miscellaneous Notes * Telephone Encounter - Casandra Liu - 10/24/2017 4:34 PM EDT Images from the original note were not included. Lina Vogel MD [place], [place] ? This is one of my former liver patients. Can you get her in to see a fellow or hepatology withinthe first two weeks of November? She has a surgery on 11/10 here and we should see her afterwards to make sure she is doing well. Thanks MARKUS Paniagua nov 20 8 am if still avail documented in this encounter Plan of Treatment Upcoming Encounters Date Type Department Care Team (Late st Contact Info) Description 02/27/2024 2:45 PM EST TH Visit (TeleHealth) [place] [address] Lashae Lorenzo MD [facility] [place] [address] documented as of this encounter Visit Diagnoses Not on filedocumented in this encounter Care Teams Policyholder Information Clerk Relationship Specialty Start Date End Date Mehul Valladares DO [address] [place] [address] PCP - General General Internal Medicine 09/04/17 documented as of this encounter
--- OUTSIDE RECORDS SUMMARY | 2024-01-23 00:33 | XMS_ITS | Encounter Summary ---
Author Organization [facility] [address] Care Team Providers Care Cad Engineer Name Role Phone Mehul Valladares DO Primary Care Provider [phone] Reason for Visit * Consultation (Routine) - Closed Specialty Diagnoses / Procedures Referred By Nicol sparks Referred To Contact Endocrinology Diagnoses Hyperparathyroidism Josh Guadarrama MD [facility] [place] [address] [facility] [address] [place] [address] Referral ID Status Reason Start Date Expiration Date V isits Requested Visits Authorized [id number] Closed Consult, Test & Treat 09/17/2017 09/17/2018 1 1 Encounter Details Date Type Department Care Team (Late st Contact Info) Description 02/24/2018 9:00 AM EST Office [place] [address] Sam Lai DO [facility] [place] [address] Hyperparathyroidism Social History Tobacco Use Types [...] Sign Reading Time Taken Comments Blood Pressure 117/66 02/24/2018 8:46 AM EST Pulse 73 02/24/2018 8:46 AM EST Temperature - - Respiratory Rate - - Oxygen Saturation - - Inhaled Oxygen Concentration - - Weight 103 kg (227 lb) 02/24/2018 8:46 AM EST Height 165.1 cm (5' 5) 02/24/2018 8:46 AM EST Body Mass Index 37.77 02/24/2018 8:46 AM EST documented in this encounter Progress Notes * Sam Lai DO - 02/24/2018 9:00 AM EST Endocrinology Consult Patient Name: Kallie Darling Date of : 1960 PCP: Mehul Valladares DO HISTORY OF PRESENT ILLNESS: Kallie Darling is a very pleasant 57 y.o. female who presents for evaluation of parathyroid function and dysphasia status post single parathyroid adenoma resection on November 11, 2017. Shellie states she is having dysphasia most notably for large pills. She states she had some mild dysphasia prior to her parathyroid adenoma resection, however it has worsened since the operation. She states theincision is tender and she has some anterior neck discomfort. She does state that she underwent an upper endoscopy but she is unsure of the results. Her past medical history is significant for gastroesophageal reflux, alcoholism in remission and gastritis. Social history No alcohol in 8 months She does smoke cigarettes REVIEW OF SYSTEMS: as per HPI, all other systems reviewed and negative Allergies Allergen Reactions ??? Amoxicillin-Pot Clavulanate Nausea Only ??? Bacitracin Nausea Only ??? Gramicidin D Nausea Only ??? Neomycin Sulfate Nausea Only ??? Polymyxin B Nausea Only ??? Aspirin Nausea And Vomiting ??? Lactose Other (See Comments) GI Upset Current Outpatient Medications on File Prior to Visit Medication Sig Dispense Refill ??? calcium citrate-vitamin D (CALCIUM CITRATE +) [...] mcg into the lungsevery 6 hours. ??? gabapentin (NEURONTIN) 800 mg Tablet Take 800 mg by mouth 3 times daily. ??? clopidogrel (PLAVIX) 75 mg Tablet Take 75 mg by mouth daily. ??? pantoprazole (PROTONIX) 40 mg Tablet, Delayed [...] Take 50 mcg by mouth daily. ??? fluticasone-salmeterol (ADVAIR HFA) 45-21 mcg/actuation HFA Aerosol Inhaler Inhale 2 puffs intothe lungs 2 times daily. ??? docusate sodium (COLACE) 100 mg Capsule Take 100 mg by mouth as needed for Constipation. Family History: No family history of hyperparathyroidism PHYSICAL EXAM: BP 117/66 Pulse 73 Ht 165.1 cm (5' 5) Wt 103 kg (227 lb) BMI 37.77 kg/m?? GENERAL: Well-nourished SKIN: normal in texture and temperature EYES: no thyroid eye signs NECK: supple, no palpable nodule or goiter, no bruit, mild anterior neck tenderness. CVS: S1 S2 heard, rhythm regular EXTREMITIES: No clubbing, no edema Thyroid and lateral neck ultrasound: Her thyroid gland is normal in size and echotexture. There are no masses in the thyroid. There are no abnormal or morphologically abnormal lymph nodes in the lateral neck compartments. Impression: 57-year-old woman who is now 3 months status post resection of a single mediastinal parathyroid adenoma. I performed a thyroid ultrasound due to her complaints of dysphasia and anterior neck tenderness. There are no masses in the thyroid or the lateral neck compartments to explain her symptoms. Furthermore, her serum calcium is well within the normal limits and her parathyroid hormone has also dropped significantly since surgery, from 130 to 70. Recommendations: Endocrine follow-up as needed We have reviewed our plan outlined above with the patient, and patient verbalized understanding. All questions were answered and most of the time was spent on counseling. Thank you for this consult, please do not hesitate to contact me with any questions. Sam Lai DO, MS [employer] Craftsmangreenstone polisher operator Department of Medicine Section of Endocrinology [facility] cc: Mehul Valladares DO documented in this encounter Plan of Treatment Upcoming Encounters Date Type Department Care Team (Late st Contact Info) Description 02/27/2024 2:45 PM EST TH Visit (TeleHealth) [place] [address] Lashae Lorenzo MD [facility] [place] [address] documented as of this encounter Procedures Procedure Name Priority Date/Time Associated Diagnosis Comments PTH Routine 02/24/2018 9:59 AM EST Hyperparathyroidism CALCIUM Routine 02/24/2018 9:59 AM EST Hyperparathyroidism documented in this encounter Results * Calcium (02/24/2018 9:59 AM EST) Calcium 9.5 8.5 - 10.5 mg/dL [facility] Blood specimen (specimen) 02/24/2018 9:59 AM EST 02/24/2018 10:09 AM EST Narrative Resulting Agency Comment Spec In Lab Sam Lai DO CHEMISTRY ORDERABLES [facility] [place] [address] * (ABNORMAL) PTH (02/24/2018 9:59 AM EST) Parathyroid Hormone 71(H) 15 - 65 pg/mL [facility] Blood specimen (specimen) 02/24/2018 9:59 AM EST 02/24/2018 10:09 AM EST Narrative Resulting Agency Comment Spec In Lab Sam Lai DO CHEMISTRY ORDERABLES [facility] [place] [address] documented in this encounter Visit Diagnoses Diagnosis Hyperparathyroidism Hyperparathyroidism, unspecified documented in this encounter Care Teams Cad Engineer Relationship Specialty Start Date End Date Mehul Valladares DO [address] [place] [address] PCP - General General Internal Medicine 09/04/17 documented as of this encounter
--- OUTSIDE RECORDS SUMMARY | 2024-01-23 00:33 | XMS_ITS | Encounter Summary ---
Author Organization [facility] [place] [address] Care Team Providers Care Volunteer Services Assistant Name Role Phone Mehul Valladares DO Primary Care Provider Encounter Details Date Type Department Care Team (Latest Contact Info) Description 09/11/2017 2:52 PM EDT - 09/11/2017 6:26 PM EDT Hospital Encounter Gastroenterology at [facility] [place] [phone] Josh Guadarrama MD [facility] [place] [address] Discharge Disposition: Home Social History Tobacco Use [...] Sign Reading Time Taken Comments Blood Pressure 150/91 09/11/2017 5:18 PM EDT Pulse 75 09/11/2017 5:18 PM EDT Temperature - - Respiratory Rate 16 09/11/2017 5:18 PM EDT Oxygen Saturation 96% 09/11/2017 5:18 PM EDT Inhaled Oxygen Concentration - - Weight - - Height - - Body Mass Index - - documented in this encounter Discharge Instructions * Discharge Instructions* Lupe Griggs, RN - 09/11/2017 5:20 PM EDT Bronchoscopy What to expect at home This care sheet gives you a general idea of what to expect after the test Activity Because of the sedation that you received Your judgement and reaction time are affected ?? Go home and continue to rest for the next 1 or 2 days. Avoid strenuous activities. You may resume normal activities in 48 hours. ?? Change from one position to the next slowly. You may lose your balance unexpectedly. ?? Be careful on stairs as you may be unsteady on your feet. FOR THE NEXT 24 HRS ?? DO NOT DRIVE OR OPERATE ANY MACHINERY ?? DO NOT DRINK ALCOHOLIC BEVERAGES ?? DO NOT SIGN LEGAL DOCUMENTS ?? If you are a smoker: DO NOT SMOKE WHILE YOU ARE ALONE Diet ?? Continue on liquids for the next 2 hours then you can resume your normal diet ?? If it is painful to swallow, start out with cold drinks, popsicles, and ice cream. Next, try soft foods like pudding, yogurt, canned or cooked fruit, scrambled eggs, and mashed potatoes. Avoid eating hard or scratchy foods like chips or raw vegetables. Avoid orange or tomato juice and other acidic foods that can sting the throat. Medicines ?? You may notice a sore throat, this should resolve on it's own. You may use ice chips, popsicles or lozenges to help control the discomfort Other Instructions ?? You may cough up small amounts of blood, this should resolve on it's own. IV SITE may get red or tender this is normal. You may use warm compresses 20 minutes at a time on and off for the next day or so. If the tenderness +/or redness increases or foul drainage and a red streak occurs, please contact your PCP When should you call for help? Call 911 anytime you think you may need Emergency care. For example You passed out ( lost consciousness) You have sudden chest pain or shortness of breath You cough up large amounts of bright red blood You have severe pain in your chest You have severe trouble breathing Call your Doctor now or seek medical attention You cough up more than 1/2 cup blood You have pain that does not get better after you take pain medicine You have a fever over 100 F or chills that last over eight (8) hrs and is not relieved with Tylenoltablets every 4 hours ( not to exceed 2 extra-strength or 1000 mg at a time) You still sound hoarse after a few days You have bubbles under the skin around the collarbone. These may crackle and pop when you press on them. Watch closely for changes in your health, and be sure to contact your Doctor if you have any problems Contact Numbers Friday - Friday Pulmonary Clinic [phone]-5p Same Day Endoscopy [phone]-8p Otherwise call [facility] and ask to speak to the Pulmonary Doctor control systems technician [phone] Discharge instructions reviewed with patient who expresses understanding documented in this encounter Medications at Time of Discharge Medication Sig Dispensed Refills Start Date End Date ADVAIR HFA 230-21 mcg/actuation HFA Aerosol Inhaler 0 08/31/2017 10/16/2017 SENNALAX-S 8.6-50 mg Tablet take 2 tablets by mouth at bedtime 0 08/03/2017 12/25/2017 metFORMIN (GLUCOPHAGE) 500 mg Tablet take 1 tablet by mouth twice a day with meals 0 07/30/2017 8 NOVOLOG FLEXPEN U-100 INSULIN Insulin Pen inject subcutaneously three times a day as directed with meals (I... (REFER TO PRESCRIPTION NOTES). 1 07/23/2017 01/09/2023 gabapentin (NEURONTIN) 100 mg Capsule Take 1 capsule by mouth 3 times daily. 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 180 tablet 3 03/20/2015 05/30/2022 levothyroxine (SYNTHROID) 50 mcg Tablet Take 50 mcg by mouth daily. 01/16/2023 citalopram (CELEXA) 20 mg Tablet Take 20 mg by mouth daily. 10/16/2017 gabapentin (NEURONTIN) 300 mg capsule Take 300 mg by mouth 2 times daily. 07/30/2010 10/16/2017 documented as of this encounter H&P Notes * Josh Guadarrama MD - 09/11/2017 3:22 PM EDT Patient Name: Kallie Darling Patient Age: 57 y.o. Birthdate: 1960 Admit date: 09/11/2017 Attending Physician: Josh Guadarrama MD Pulmonary Pre-Procedure History & Physical Procedure: Bronchoscopy and EBUS See consult/clinic note. PHYSICAL EXAM: Patient Vitals for the past 8 hrs: BP Pulse Resp SpO2 09/11/17 1502 (!) 146/120 78 20 95 % HEENT: Oropharynx clear. Patient with dentures LUNGS: Clear to auscultation bilaterally. HEART: Regular rhythm, normal S1, S2. ABDOMEN: Soft, non tender, non distended. MP II ASA III A/P: Proceed with bronchoscopy. Risks and benefits of the procedure explained to the patient. Consent signed. Josh Guadarrama MD 09/11/2017 3:22 PM documented in this encounter Miscellaneous Notes * Op Note - Josh Guadarrama MD - 09/11/2017 6:26 PM EDT [facility] Operative Note Patient Name: Kallie Darling : [id number] MR#: [id number] Case Date: 09/11/2017 Surgeon: Surgeon(s) and Role: * Josh Guadarrama MD - Primary Preoperative diagnosis: Paratracheal mass Postoperative diagnosis: Same Procedure(s) (LRB): BRONCH, W ENDOBRONCHIAL ULTRASOUND (EBUS) GUIDED SAMPLING, 3+ NODES (WRVU 5.21) (N/A) Anesthesia: General Estimated Blood Loss: None Specimens removed during surgery: Order Name Source Comment Collection Info Order Time CYTOPATHOLOGY NON-GYNECOLOGICAL 09/11/2017 4:08 PM Pertinent clinical data and significant therapy: 57 yo woman with Rt paratracheal mass vs LN Clinical impression: possible lymphoma, vs bronchogenic cyst vs primary lung ca. Procedure Type: EBUS guided FNA Sample Type: Other, add description and source of specimen in comments Description and source of specimen: DELL of Rt paratracheal mass Disposition: awakened from anesthesia, extubated and taken to the recovery room in a stable condition, having suffered no apparent untoward event. Condition: doing well without problems (Please see the Surgical Encounter Summary for any Implant and Specimen details pertinent to this patient.) HPI/Surgical Indications: 57 yo woman with Rt paratracheal mass Procedure Description: Please refer to the provation note Infection Bundle used? N/A Attestation: Case Date: 09/11/2017 I performed this procedure without the involvement of a resident. Josh Guadarrama MD 09/12/2017 documented in this encounter Plan of Treatment Upcoming Encounters Date Type Department Care Team (Late st Contact Info) Description 02/27/2024 2:45 PM EST TH Visit (TeleHealth) [place] [address] Lashae Lorenzo MD [facility] [place] [address] documented as of this encounter Procedures Procedure Name Priority Date/Time Associated Diagnosis Comments NON-POSTING SPECIALIST FINAL REPORT Routine 09/11/2017 5:22 PM EDT CYTOPATHOLOGY NON-GYNECOLOGICAL Routine 09/11/2017 4:09 PM EDT BRONCH, W ENDOBRONCHIAL ULTRASOUND (EBUS) GUIDED SAMPLING, 3+ NODES (WRVU 4.96) 09/11/2017 3:50 PM EDT Lung mass ENDOBRONCHIAL ULTRASOUND (EBUS) Routine 09/11/2017 3:19 PM EDT POCT GLUCOSE Routine 09/11/2017 3:12 PM EDT POCT FINGERSTICK GLUCOSE Routine 09/11/2017 documented in this encounter Results * Non-Leaf Conditioner Final Report (09/11/2017 5:22 PM EDT) Diagnosis Discussion [id number] ? Location: 4T; EA07; A The signing pathologist has (i) examined the relevant preparation(s) for the specimen(s) and (ii) rendered or confirmed the diagnosis(es). . ? Non-Leaf Conditioner Final DIAGNOSIS See Discussion Electronically signed by: ??Boris STOCKTON, James Keller Verified: ??09/16/2017 ?Cytopathologist Performed at: ??-[facility] Dept. of Pathology, [place], [place] DISCUSSION Paratracheal: right (EBUS-guided FNA) - Numerous parathyroid cells with oncocytic features are present. A history of primary hyperparathyroidism is noted in the electronic medical record. Recommend clinical correlation. Case and diagnosis have been discussed with Dr. James Guadarrama. Dr. Betty Brown has reviewed this case and concurs with the diagnosis. --- Immunohistochemistry Studies --- Interpretation: ?Immunohistochemical assays were performed (on paraffin-embedded cell block sections fixed in 10% neutral buffered formalin for 6-72 hours) using the polymer technique with appropriate controls. The sections are studied for PTH, GATA3, and TTF-1. The lesional cells are immunoreactive for PTH and GATA3; they are negative for TTF-1. These immunohistochemical studies provide ancillary information and are used only in conjunction with standard diagnostic procedures. CLINICAL INFORMATION Specimen Source : Paratracheal: right (EBUS-guided FNA - assisted) Pertinent Clinical Data and Significant Therapy: 57 yo woman with Rt paratracheal mass vs LN Clinical Impression: Possible lymphoma, vs bronchogenic cyst vs primary lung Ca Pertinent Radiologic Findings: (not provided) Gross Description: Received in Formalin approximately 60 mL total volume of cloudy, red fluid, with clots. Total Preparation: Diff-Quik 4; Pap Stain 4; Cell Block 1. Fine Needle Aspiration Immediate Assessment: Evaluation Episode #1 (1 slide): Inadequate for final diagnosis. . CLINICAL INFORMATION Tumor not noted. Immediate Assessment by: Christos Escalante MD. I have personally examined the cytologic slides. My interpretation is as stated. Note: Immediate Assessment results are preliminary assessments of adequacy and diagnosis. See final diagnostic comments for completed interpretation. 09/16/2017 4:27 PM EDT [facility] Misc. FNA 09/11/2017 5:22 PM EDT 09/11/2017 5:22 PM EDT Josh Guadarrama MD PATHOLOGY/CYTOLOGY ORDERABLES Performing Organization Address City/[facility]/[place]IP [place] [address] * Cytopathology Non-Gynecological (09/11/2017 4:09 PM EDT) AP Specimen 09/11/2017 4:09 PM EDT 09/11/2017 4:09 PM EDT Narrative [facility] - 09/11/2017 4:09 PM EDT Specimen requisition ordered. ??Separate Pathology report to follow Josh Guadarrama MD PATHOLOGY/CYTOLOGY ORDERABLES Performing Organization Address City/[facility]/[place] [address] * ENDOBRONCHIAL ULTRASOUND (EBUS) (09/11/2017 3:19 PM EDT) EBUS [facility] Bronchoscopy Patient Name: Kallie Darling ? Procedure Date: 09/11/2017 3:19 PM ? Age: 57 ? Procedure: ?Ebus Providers: ?Cj Warner ?BRY Baig, Kiara Mckeon MD: ? Mehul Valladares MD Requesting Physician: Medicines: ?General Anesthesia Complications: ?No immediate complications Procedure: ?Pre-Anesthesia Assessment: ?- A History and Physical has been ?performed. Patient meds and ?allergies have been reviewed. The ?risks and benefits of the procedure ?and the sedation options and risks ?were discussed with the patient. All ?questions were answered and informed ?consent was obtained. Patient ?identification and proposed ?procedure were verified prior to the ?procedure by the physician, the ?nurse and the hydraulic barker operator. Mental ?Status Examination: normal. ASA ?Grade Assessment: III - A patient ?with severe systemic disease. After ?reviewing the risks and benefits, ?the patient was deemed in ?satisfactory condition to undergo ?the procedure. The anesthesia plan ?was to use general anesthesia. ?Immediately prior to administration ?of medications, the patient was ?re-assessed for adequacy to receive ?sedatives. The heart rate, ?respiratory rate, oxygen ?saturations, blood pressure, ?adequacy of pulmonary ventilation, ?and response to care were monitored ?throughout the procedure. The ?physical status of the patient was ?re-assessed after the procedure. ?After obtaining informed consent, ?the Bronchoscope was introduced ?through the mouth, via the ?endotracheal tube (the patient was ?intubated for the procedure) and ?advanced to the tracheobronchial ?tree. The procedure was accomplished ?without difficulty. The patient ?tolerated the procedure well. The ?total duration of the procedure was ?40 minutes. Moderate Sedation: ? General anesthesia Findings: ? No evidence of endobronchial or endotracheal lesion. ? Copious thick secretions Impression: ? - EBUS FNA of the upper paratracheal ?lesion on the Rt side ?- The airway examination was normal. Recommendation: ? - Await test results. Attending Participation: ? I personally performed the entire procedure. Josh Guadarrama, 09/11/2017 5:23:07 PM Number of Addenda: 0 Note Initiated On: 09/11/2017 3:19 PM [facility] 09/11/2017 3:19 PM EDT Mehul Valladares DO GENERAL SURGICAL OR DERABLES Performing Organization Address [facility] de Phone Number [employer]ATION * POCT Glucose (09/11/2017 3:12 PM EDT) Glucose, POC 120 65 - 199 mg/dL [facility] Comment: Supplemental ranges: <140 mg/dL before meals <180 mg/dL all other times of the day Blood specimen (specimen) 09/11/2017 3:12 PM EDT 09/11/2017 3:12 PM EDT Josh Guadarrama MD POINT OF CARE TEST ORDERABLES Performing Organization Address [facility] Co de Phone Number [facility] [place] [address] * POCT Fingerstick Glucose (09/11/2017) Glucose, POC 120 60 - 199 mg/dl 09/11/2017 Josh Guadarrama MD POINT OF CARE TEST ORDERABLES documented in this encounter Visit Diagnoses Not on filedocumented in this encounter Care Teams Volunteer Services Assistant Relationship Specialty Start Date End Date Mehul Valladares DO [address] [place] [address] PCP - General General Internal Medicine 09/04/17 documented as of this encounter
--- OUTSIDE RECORDS SUMMARY | 2024-01-23 00:33 | XMS_ITS | Encounter Summary ---
Author [facility] [place] [address] Care Team Providers Care Machine Egg Washer Name Role Phone Grant Lindsey MD Primary Care Provider [phone] Encounter Details Date Type Department Care Team (Latest Contact Info) Description 04/19/2020 9:12 AM EST - 04/19/2020 11:59 PM [facility] Hospital [place] [address] Saniya Thomson, IN STORE REPRESENTATIVE [facility] [place] [address] Cirrhosis of liver without ascites, unspecified hepatic cirrhosis type Discharge Disposition: Home Social History Tobacco Use [...] Take 20 mg by mouth Daily. 11/21/2019 famotidine (Pepcid) 20 mg Tablet Take 20 [...] (E.C.) Take 40 mg by mouth daily. hydrOXYzine (Atarax) 25 mg Tablet TAKE 1 [...] EST TH Visit (TeleHealth) [place] [address] Lashae Lorenzo MD [facility] [place] [address] documented as of this encounter Procedures Procedure Name Priority Date/Time Associated Diagnosis Comments US ABDOMEN LIMITED HEPATOLOGY PROTOCOL Routine 04/19/2020 9:30 AM EST Cirrhosis of liver without ascites, unspecified hepatic cirrhosis type documented in this encounter Results * US Abdomen Limited Hepatology Protocol (04/19/2020 9:30 AM EST) Anatomical Region Laterality Modality Abdomen Ultrasound 04/19/2020 9:15 AM EST Impressions 04/19/2020 9:47 AM EST 1. Similar appearance of hepatomegaly with fine heterogeneity and mild capsular nodularity. No focal hepatic lesion. 2. Varices present at the brandie hepatis, similar to prior. No cavernous transformation of the portal vein. 3. No biliary ductal dilation, common bile duct within normal limits for postcholecystectomy patient. 4. Similar splenomegaly without focal lesion. Thank you for letting us participate in the care of this patient. For questions regarding this report, please contact the number below. ?Primo Guthrie, Staff Physician Electronically Signed Final Report ?? 04/19/2020 09:46 am Narrative 04/19/2020 9:47 AM EST Abdominal ? (Signed Final 04/19/2020 09:46 am) PATIENT INFO: ID #: ? [id number] ?: ??[birth year] (59 yrs)(F) Name: ? KALLIE SMART ? Visit Date: 04/19/2020 09:15 am PERFORMED BY: Performed By: ? Yecenia Cook RDMS Attending: ?Primo Guthrie MD Referred By: ?SANIYA THOMSON Location: ? [place] SERVICE(S) PROVIDED: ??[facility] - Hepatology Protocol - Abdominal ? [id number] ??Limited Survey Single Organ or Quadrant - ??[id number] INDICATIONS: ??Cirrhosis; HCC surveillance; assess for ??splenomegaly. COMPARISON: Prior outsode CT: 06/27/17. ------ LIVER: ------ Right Lobe Length: ?? 19.0 ?? cm Echogenicity/Echotexture: ?? Coarse parenchyma with ? increased echogenicity Comment: ?Hepatomegaly GALLBLADDER: Comment: ?S/P Cholecystectomy BILIARY TRACT: Intrahepatic Ducts: ?? Normal Extrahepatic Ducts: ?? Normal Common Duct Size: ? 10.0 ?mm ------- SPLEEN: ------- Size (cm) ?L: ??16.0 ?AP: ??6.0 ? TV: ??7.0 Vol (ml): ?351.9 Comment: ?Splenomegaly Procedure Note Primo Guthrie MD - 04/19/2020 Abdominal (Signed Final 04/19/2020 09:46 am) PATIENT INFO: ID #: [id number] : 60 (59 yrs)(F) Name: KALLIE SMART Visit Date: 04/19/2020 09:15 am PERFORMED BY: Performed By: Yecenia Cook RDMS Attending: Primo Guthrie MD Referred By: SANIYA THOMSON Location: [place] SERVICE(S) [facility]: [facility] - Hepat[facility] Protocol - Abdominal [id number] Limited Survey Single Organ or Quadrant - [id number] INDICATIONS: Cirrhosis; HCC surveillance; assess for splenomegaly. COMPARISON: Prior outsode CT: 06/27/17. ------ LIVER: ------ Right Lobe Length: 19.0 cm Echogenicity/Echotexture: Coarse parenchyma with increased echogenicity Comment: Hepatomegaly GALLBLADDER: Comment: S/P Cholecystectomy BILIARY TRACT: Intrahepatic Ducts: Normal Extrahepatic Ducts: Normal Common Duct Size: 10.0 mm ------- SPLEEN: ------- Size (cm) L: 16.0 AP: 6.0 TV: 7.0 Vol (ml): 351.9 Comment: Splenomegaly IMPRESSION 1. Similar appearance of hepatomegaly with fine heterogeneity and mild capsular nodularity. No focal hepatic lesion. 2. Varices present at the brandie hepatis, similar to prior. No cavernous transformation of the portal vein. 3. No biliary ductal dilation, common bile duct within normal limits for postcholecystectomy patient. 4. Similar splenomegaly without focal lesion. Thank you for letting us participate in the care of this patient. For questions regarding this report, please contact the number below. Electronically signed by: Primo Guthrie MD, [facility] ([phone]), at 04/19/2020 9:40 AM Primo Guthrie, Staff Physician Electronically Signed Final Report 04/19/2020 09:46 am Saniya Thomson APRN IMG GEN ORDERAB LES documented in this encounter Visit Diagnoses Diagnosis Cirrhosis of liver without ascites, unspecified hepatic cirrhosis type documented in this encounter Care Teams Machine Egg Washer Relationship Specialty Start Date End Date Grant Lindsey MD PCP - General Family Medicine 02/25/19 documented as of this encounter
--- OUTSIDE RECORDS SUMMARY | 2024-01-23 00:33 | XMS_ITS | Encounter Summary ---
Author Organization [facility] [place] [address] Care Team Providers Care Critical Care Paramedic Name Role Phone Jacquelyn Mehul Brittney SMITH Primary Care Provider [phone] Encounter Details Date Type Department Care Team (Latest Contact Info) Description 11/11/2017 Orders [place] [phone] Ana Dias MD [facility] [place] [address] Hyperparathyroidism (Primary Dx) Social History Tobacco Use Types Packs/Day Years [...] EST TH Visit (TeleHealth) [place] [address] Lashae Lorenzo MD [facility] [place] [address] documented as of this encounter Visit Diagnoses Diagnosis Hyperparathyroidism- Primary Hyperparathyroidism, unspecified documented in this encounter Care Teams Critical Care Paramedic Relationship Specialty Start Date End Date Mehul Valladares DO [address] [place] [address] PCP - General General Internal Medicine 09/04/17 documented as of this encounter
--- OUTSIDE RECORDS SUMMARY | 2024-01-23 00:33 | XMS_ITS | Encounter Summary ---
Author Organization [facility] [place] [address] Care Team Providers Care Loan Assistant Name Role Phone Mehul Valladares DO Primary Care Provider [phone] Encounter Details Date Type Department Care Team (Late st Contact Info) Description 10/05/2017 [place] [phone] Lavinia Huertas MD [facility] [place] [address] Social History Tobacco Use Types Packs/Day Years [...] encounter Miscellaneous Notes * Telephone Encounter - Lavinia Huertas MD - 10/05/2017 9:45 AM EDT Call this morning from Dr. Zamora [place], [place] Patient in his ED looking for results from bronchoscopy (EBUS-FNA) performed by Dr. Guadarrama on September 11, 2017. She basically reported to Dr. Zamora a 4-month history of chest pain, and patient said, they're not telling me anything. Dr. Zamora is hoping I can tell him more about the results of the procedure so that he can counselher. As near as I can tell, she saw Dr. Bernadette Rivera, her local survey research teacher. A chest CT scan done on July 17, 2017, showed a 3 x 2 cm mass in the superior mediastinum at the right posterior tracheal margin. Dr. Guadarrama did EBUS-FNA of this mass. The cytology report from Dr. Escalante was resulted onSeptember 16, 2017. I read the report to Dr. Zamora. It showed numerous parathyroid cells with oncocytic features. The molecular studies and morphology did not support lung cancer diagnosis. Patient does have history of hyperparathyroidism. Dr. Zamora expressed that he had the information he needed. I will forward this note to Dr. Guadarrama so that he can follow-up with patient and patient's PCP, if desired. LAVINIA HUERTAS MD 10/05/2017 10:02 AM documented in this encounter Plan of Treatment Upcoming Encounters Date Type Department Care Team (Late st Contact Info) Description 02/27/2024 2:45 PM EST TH Visit (TeleHealth) [place] [address] Lashae Lorenzo MD [facility] [place] [address] documented as of this encounter Visit Diagnoses Not on filedocumented in this encounter Care Teams Loan Assistant Relationship Specialty Start Date End Date Mehul Valladares DO [address] [place] [address] PCP - General General Internal Medicine 09/04/17 documented as of this encounter
--- OUTSIDE RECORDS SUMMARY | 2024-01-23 00:33 | XMS_ITS | Encounter Summary ---
Author Organization [facility] [place] [address] Care Team Providers Care Medical Assistant Instructor Name Role Phone Mehul Valladares DO Primary Care Provider [phone] Encounter Details Date Type Department Care Team (Late st Contact Info) Description 09/08/2018 External Results [place] [address] Provider, Scanning Social History Tobacco Use Types Packs/Day Years [...] EST TH Visit (TeleHealth) [place] [address] Lashae Lorenzo MD [facility] [place] [address] documented as of this encounter Procedures Procedure Name Priority Date/Time Associated Diagnosis Comments SURGICAL PATHOLOGY SCAN Routine 09/08/2018 documented in this encounter Results * Scan Doc: Surgical Pathology (09/08/2018) Historical Provider MD CALLAHAN MGR SCAN EX T ORDR/RSLT documented in this encounter Visit Diagnoses Not on filedocumented in this encounter Care Teams Medical Assistant Instructor Relationship Specialty Start Date End Date Mehul Valladares DO [address] [place] [address] PCP - General General Internal Medicine 09/04/17 documented as of this encounter
--- OUTSIDE RECORDS SUMMARY | 2024-01-23 00:33 | XMS_ITS | Encounter Summary ---
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 Name Role Phone Mehul Valladares DO Primary Care Provider [phone] Encounter Details Date Type Department Care Team (Latest Contact Info) Description 11/10/2017 10:27 AM EDT - 11/11/2017 10:00 AM EDT Hospital [place] [id number] Neptali Palmer MD [facility] [address] S/P parathyroidectomy; Primary hyperparathyroidism (PTH 165, Ca 11.0, +PUD but no kidney stone) Discharge Disposition: Home Social History Tobacco Use [...] Sign Reading Time Taken Comments Blood Pressure 147/73 11/11/2017 7:56 AM EDT Pulse 69 11/10/2017 8:30 PM EDT Temperature 36.6 ??C (97.9 ??F) 11/11/2017 7:56 AM ED T Respiratory Rate 16 11/11/2017 7:56 AM EDT Oxygen Saturation 94% 11/11/2017 7:56 AM EDT Inhaled Oxygen Concentration - - Weight - - Height - - Body Mass Index - - documented in this encounter Discharge Summaries * Phil Dalton MD - 11/11/2017 7:35 AM EDT General Surgery Inpatient - Discharge Summary Patient Name: Kallie Darling Patient Age: 57 y.o. Birthdate: 1960 Admit date: 11/10/2017 Discharge date: 11/11/2017 Admitting Physician: Neptali Palmer MD Primary Diagnosis: Primary hyperparathyroidism Secondary Diagnosis: Active Hospital Problems Diagnosis ??? Primary hyperparathyroidism (PTH 165, Ca 11.0, +PUD but no kidney stone) ??? Obesity (BMI 30-39.9) ??? CVA (cerebral vascular accident) ~August 2017. Describes left-sided numbness of face, arm, leg--now resolved. ??? SOCORRO (obstructive sleep apnea) ??? Alcoholic cirrhosis of liver without ascites ? ? Alcoholic gastritis & chronic liver disease (esophageal varices) ??? Asthma ??? Restless leg syndrome Resolved Hospital Problems Diagnosis Date Resolved No resolved problems to display. Active Non-Hospital Problems Diagnosis ??? Smokes ??? Alcoholism in remission ??? GERD (gastroesophageal reflux disease) ??? Hyperlipidemia ??? Hyperparathyroidism ??? H/O hysterectomy for benign disease at age 32 (menorrhagia/DUB) ??? Low back pain ??? Right foot pain ??? Neck pain ??? Left elbow pain ??? Chronic low back pain ??? Acid reflux ??? Learning disability HPI: Ms. Kallie Darling is a very pleasant 57 y.o. year old female with multiple medical comorbidities including recent CVA with minimal left-sided residual deficits, HTN, DM, SOCORRO, and cirrhosis (HARDEN/MONA) with portal hypertension who presents for evaluation of primary hyperparathyroidism as a r eferral from Dr. Valladares. This was diagnosed at least 5 years ago, and she saw Dr. Woods in December of 2012, at which time she was noted to have osteopenia on DEXA scan and a right lower parathyroid adenoma on sestamibi scan. At the time, she was not thought to meet criteria for surgery, and because her medical comorbidities made her a poor surgical candidate, parathyroidectomy was deferred. It is not clear from her records that she was followed subsequently for her hypercalcemia. Earlierthis spring, she had the CVA, and in that setting was apparently complaining of substernal and left-sided chest pain. A CT was done to look for possible PE, and showed a 4cm right-sided superior mediastinal mass. She was sent to pulmonology, and an EBUS-guided FNA was performed on 09/11/17. This returned consistent with parathyroid tissue. There may be a [...] of endocrinopathies, hypercalcemia or endocrine malignancy. She presents today for consideration of surgical management of her hyperparathyroidism. Operations/Major Procedures: Operations: 11/10/2017 Surgeon(s) and Role: * Neptali Palmer MD - Primary * Phil Dalton MD: Procedure(s): PARATHYROIDECTOMY OR EXPLORATION OF PARATHYROID(S) (WRVU 15.6) FACIAL NERVE MONITORING, SETUP LARYNGEAL (WRVU 1.57) Operative Findings: 4.8 x 3.0 x 1.7cm parathyroid adenoma posterior to the right thyroid lobe, extending approximately 1cm into the upper mediastinum. Right RLN intact throughout IOPTH findings: Baseline: 216 pg/mL Preexcision 92 pg/mL 10-min post-excision 36 pg/mL 15-min post-excision 29 pg/mL 1841 peripheral PTH (24 min post-excision) 28 Pg/mL Hospital Course: Kallie Darling was taken to the operating room where the above procedures wereperformed. She tolerated the operation well and without complication. She was admitted post-operatively for clinical monitoring and further management. The patient's hospital course was uncomplicatedand she was deemed stable for discharge on post-operative day 1. Important Studies and Lab Data: Recent Results (from the past 24 hour(s)) POCT Glucose Result Value Ref Range POC Glucose 104 65 - 199 mg/dL Intraoperative PTH (Leb/CGP) Result Value Ref Range Intraoper PTH 216 (H) 9 - 77 pg/mL Intraoperative PTH (Leb/CGP) Result Value Ref Range Intraoper PTH 92 (H) 9 - 77 pg/mL Intraoperative PTH (Leb/CGP) Result Value Ref Range Intraoper PTH 36 9 - 77 pg/mL Intraoperative PTH (Leb/CGP) Result Value Ref Range Intraoper PTH 29 9 - 77 pg/mL Intraoperative PTH (Leb/CGP) Result Value Ref Range Intraoper PTH 28 9 - 77 pg/mL POCT Glucose Result Value Ref Range POC Glucose 140 65 - 199 mg/dL POCT Glucose Result Value Ref Range POC Glucose 166 65 - 199 mg/dL Calcium Result Value Ref Range Calcium 10.3 8.5 - 10.5 mg/dL Pending Lab Data at Discharge: None Studies: None Discharge Exam: Last value Range last 12 hrs Temperature Temp: 36.5 ??C (97.7 ??F) Temp: [36.5 ??C (97.7 ??F)] Heart Rate Heart Rate: 69 Heart Rate: [66-70] Blood Pressure BP: 157/84 BP: (112-157)/(59-90) Respiratory Rate Resp: 17 Resp: [14-24] SpO2 SpO2: 94 % SpO2: [92 %-94 %] I/Os: I/O last 3 completed shifts: In: 1779 [P.O.:1080; I.V.:700] Out: 1812 [Urine:1800; Blood:13] Gen: NAD, alert & oriented x3 Pulm: CTAB, no crackles/wheezes Card: RRR, no m/r/g Abd: Non-distended, soft, appropriately tender. Wound: incision clean, dry, intact, no purulent drainage Ext: no edema, 2+ peripheral pulses Discharge Plans: Discharge to: Home VNA: No Discharge Conditions/Prognosis: Stable Discharge Medications: The following medications have been prescribed for you. If you notice any adverse reactions to your medications, please contact your primary care physician immediately or go tothe nearest Emergency Department. Your Medications New Medications Dose Details calcium citrate-vitamin D 315-200 mg-unit Tab Commonly known as: CALCIUM CITRATE + Take 2 tablets by mouth 3 times daily (with meals). 2 tablet Refills: 0 Continued medications, unchanged Dose Details albuterol sulfate 90 mcg/actuation Aepb Inhale 180 mcg into the lungs every 6 hours. 180 mcg Refills: 0 carvedilol 6.25 mg Tab Commonly known as: COREG Take 1 tablet by mouth 2 times daily (with meals). 6.25 mg Quantity: 180 tablet Refills: 3 citalopram 40 mg Tab Commonly known as: CeleXA Take 40 mg by mouth daily. 40 mg Refills: 0 clopidogrel 75 mg Tab Commonly known as: PLAVIX Take 75 mg by mouth daily. 75 mg Refills: 0 cyanocobalamin 1,000 mcg Tab Refills: 0 docusate sodium 100 mg Cap Commonly known as: COLACE Take 100 mg by mouth as needed for Constipation. 100 mg Refills: 0 famotidine 20 mg Tab Commonly known as: PEPCID Take 20 mg by mouth 2 times daily. 20 mg Refills: 0 fluticasone-salmeterol 45-21 mcg/actuation Hfaa Commonly known as: ADVAIR HFA Inhale 2 puffs into the lungs 2 times daily. 2 puff Refills: 0 gabapentin 800 mg Tab Commonly known as: NEURONTIN Take 800 mg by mouth 3 times daily. 800 mg Refills: 0 levothyroxine 50 mcg Tab Commonly known as: SYNTHROID Take 50 mcg by mouth daily. 50 mcg Refills: 0 loratadine 10 mg Tab Commonly known as: CLARITIN Take 10 mg by mouth daily. 10 mg Refills: 0 METFORMIN ORAL Take 500 mg by mouth 2 times daily. 500 mg Refills: 0 NovoLOG Flexpen U-100 Insulin Inpn inject subcutaneously three times a day as directed with meals (I... (REFER TO PRESCRIPTION NOTES). Generic drug: insulin aspart U-100 Refills: 1 pantoprazole 40 mg Tbec Commonly known as: PROTONIX Take 40 mg by mouth daily. 40 mg Refills: 0 pravastatin 80 mg Tab Commonly known as: PRAVACHOL Take 80 mg by mouth daily. 80 mg Refills: 0 rOPINIRole 0.25 mg Tab Commonly known as: REQUIP Take 0.25 mg by mouth 2 times daily. 0.25 mg Refills: 0 SENNALAX-S 8.6-50 mg Tab take 2 tablets by mouth at bedtime Generic drug: senna-docusate Refills: 0 Updated Allergies/ADRs: Allergies Allergen Reactions ??? Amoxicillin-Pot Clavulanate Nausea Only ??? Bacitracin Nausea Only ??? Gramicidin D Nausea Only ??? Neomycin Sulfate Nausea Only ??? Polymyxin B Nausea Only ??? Aspirin Nausea And Vomiting ??? Lactose Other (See Comments) GI Upset Scheduled Appointments: Future Appointments Date Time Provider Department Center 11/11/2017 8:00 AM Sam Lai DO [facility] 11/13/2017 11:00 AM Bruna Laguerre MD [facility] Outpatient Services/Studies: Calcium Standing Status: Future Standing Exp. Date: 02/09/18 Instructions Given to Patient at Discharge:. An After Visit Summary was printed and given to the patient. Patient Instructions PARATHYROIDECTOMY PATIENT DISCHARGE INSTRUCTIONS What to Expect Following Surgery: Swelling and/or bruising under and around the incision is normal. It is usually greatest on the second or third day following surgery. You may also feel the sensation of swelling or firmness that canlast for a month or more Your scar will be most visible for 1-2 months following your operation and will gradually fade overthe next 6-8 months. As it heals, a scar often looks more pink or red than the skin around it. You may feel a ???healing ridge?? directly under the incision. This is completely normal and is the result of swelling, healing, and scar formation. Usually, this will go away when healing is complete in 3-6 months. The skin just above and below your incision will feel numb. This will improve over several months but some patients may have long-term decrease in sensation over these areas. You may notice minor difficulty in swallowing which will improve over time. Your voice may be hoarse or weak at first--this is normal and does not mean there was damage done to the nerves that make the vocal cords move. Your voice will usually go back to normal after severaldays to a few weeks. Incision Care: Neck incisions heal rapidly--usually within a week or two. The incision can get wet in the shower 24 hours after surgery. However, do not submerge the incision underwater (i.e. bath tub, swimming pool, hot tub, etc.) for at least 2 weeks after your operation. Pat the incision dry immediately following your shower. Do not scrub the area vigorously for the next 2 weeks. You have a skin glue closure, and you may notice tiny pieces of yellow/white material on your washcloth or there may be a thin clear or whitish crust around the edges of the incision. This is normal.The glue will start to come off about a week after surgery. Do not pull off the skin glue in order to allow time for the incision to heal completely. Do not use any ointments/salves/Vitamin E on the incision until after your first follow-up appointment as these may impair early wound healing. Incisions are sensitive to sunlight. For at least 1 year after surgery you should use sunscreen when outdoors for long periods of time to prevent permanent darkening of the scar. This includes tanning booths. Pain Management: You may apply ice or cold packs to the incision for 15-20 minutes several times a day for the first2-3 days following surgery to help with discomfort. You may feel some stiffness/soreness in your shoulders, back, and neck. This may take a few days orweeks to go away completely. You may use moist warm heat, a heating pad, or massage to these areas for 15-20 minutes several times a day. Do not be afraid to move your neck - gently flexing and stretching your neck muscles and light massage will help prevent stiffness NSAIDs (non-steroidal anti-inflammatory drugs) such as ibuprofen (Motrin, Advil) and naproxen (Naprosyn, Aleve) or acetaminophen (Tylenol) are most helpful for the pain experienced after surgery. Generally, these are even more effective than the stronger pain medications (narcotics or opioids) after thyroid surgery. Take NSAIDS or Tylenol every 6 hours [id number] for the first 3-5 days following surgery to help minimize pain. Diet & Activity: No restrictions in your diet are necessary. Activity as tolerated by your comfort level. You may return to work as soon as you would like. However, if your job requires heavy lifting or strenuous physical activity, your surgeon may ask you to wait to return to work until after your two-week post-operative appointment. NO DRIVING for at least 8 hours following any dose of an opioid pain medication if one was prescribed for you. Calcium Supplementation: Your body???s calcium levels may temporarily fall following a parathyroid operation. Therefore, allpatients should take calcium supplementation after surgery. We recommend that you purchase your calcium supplement from a pharmacy or grocery store, as it is available [id number] and does not require a prescription. The cost is approximately $10-$15 per bottle. The calcium supplement we recommend is Citrical Maxium (calcium citrate 315 mg with 200 IU Vitamin D3). You need to take 2 tabs (to equal a dose of 630 mg calcium and 400-500 IU of Vitamin D3) three times daily unless instructed differently by your surgeon. If you notice a tingling sensation in your hands, feet, around your mouth, or develop muscle spasms, please call the General Surgery nurse at [phone], since this may mean that you need more calcium. Pathology Report: All specimens removed at surgery are analyzed by a pathologist. This report usually takes approximately 4 business days to be ready. Dr. Palmer will call you with this report as soon as it is available. Follow-up Appointment: Will be scheduled with Dr. Palmer in 6 weeks with a lab appointment to check your calcium Date and time will be mailed to you Please call [phone] to confirm the date and time of your appointment if you do not hear from us in the next 2 weeks Future Appointments Date Time Provider Department Center 11/11/2017 8:00 AM Sam Lai DO [facility] 11/13/2017 11:00 AM Bruna Laguerre MD [facility] Call Doctor for: Call if you have trouble talking or breathing (call 911 if this is severe) Call if you develop numbness or tingling around your mouth/lips or on the tips of your fingers or your hands, as this may mean your calcium is low. This may also be related to pain medication, where the breathing tube was positioned against your lips, the positioning of your arms and hands in the operating room, or how you were positioned when sleeping. If the sensation does not go away within a half hour, or if it worsens prior to that, call us immediately so we can discuss increasing your calcium if we think you need it. Call if your incision becomes red or begins to drain fluid. Call if you have fevers greater than 101 degrees F Call if you have persistent nausea or vomiting (this may be related to opioid pain medications). Call if you begin feeling worse, rather than better, several days after surgery. Phone number for questions: [phone] before 5 PM on weekdays [phone] after 5 PM and on weekends/holidays. Ask for the general surgery resident patient companion. General Instructions None Follow-up Recommendations for Providers: Routine post-operative care. Recheck calcium in 6 weeks and 6 months. CC: Mehul Valladares DO Signed: Phil Dalton MD Surgical Oncology Service Service pager [phone] 11/11/2017 documented in this encounter Discharge Instructions * Patient Instructions* Phil Dalton MD - 11/10/2017 7:30 AM EDT PARATHYROIDECTOMY PATIENT DISCHARGE INSTRUCTIONS What to Expect Following Surgery: Swelling and/or bruising under and around the incision is normal. It is usually greatest on the second or third day following surgery. You may also feel the sensation of swelling or firmness that canlast for a month or more Your scar will be most visible for 1-2 months following your operation and will gradually fade overthe next 6-8 months. As it heals, a scar often looks more pink or red than the skin around it. You may feel a ???healing ridge?? directly under the incision. This is completely normal and is the result of swelling, healing, and scar formation. Usually, this will go away when healing is complete in 3-6 months. The skin just above and below your incision will feel numb. This will improve over several months but some patients may have long-term decrease in sensation over these areas. You may notice minor difficulty in swallowing which will improve over time. Your voice may be hoarse or weak at first--this is normal and does not mean there was damage done to the nerves that make the vocal cords move. Your voice will usually go back to normal after severaldays to a few weeks. Incision Care: Neck incisions heal rapidly--usually within a week or two. The incision can get wet in the shower 24 hours after surgery. However, do not submerge the incision underwater (i.e. bath tub, swimming pool, hot tub, etc.) for at least 2 weeks after your operation. Pat the incision dry immediately following your shower. Do not scrub the area vigorously for the next 2 weeks. You have a skin glue closure, and you may notice tiny pieces of yellow/white material on your washcloth or there may be a thin clear or whitish crust around the edges of the incision. This is normal.The glue will start to come off about a week after surgery. Do not pull off the skin glue in order to allow time for the incision to heal completely. Do not use any ointments/salves/Vitamin E on the incision until after your first follow-up appointment as these may impair early wound healing. Incisions are sensitive to sunlight. For at least 1 year after surgery you should use sunscreen when outdoors for long periods of time to prevent permanent darkening of the scar. This includes tanning booths. Pain Management: You may apply ice or cold packs to the incision for 15-20 minutes several times a day for the first2-3 days following surgery to help with discomfort. You may feel some stiffness/soreness in your shoulders, back, and neck. This may take a few days orweeks to go away completely. You may use moist warm heat, a heating pad, or massage to these areas for 15-20 minutes several times a day. Do not be afraid to move your neck - gently flexing and stretching your neck muscles and light massage will help prevent stiffness NSAIDs (non-steroidal anti-inflammatory drugs) such as ibuprofen (Motrin, Advil) and naproxen (Naprosyn, Aleve) or acetaminophen (Tylenol) are most helpful for the pain experienced after surgery. Generally, these are even more effective than the stronger pain medications (narcotics or opioids) after thyroid surgery. Take NSAIDS or Tylenol every 6 hours [id number] for the first 3-5 days following surgery to help minimize pain. Diet & Activity: No restrictions in your diet are necessary. Activity as tolerated by your comfort level. You may return to work as soon as you would like. However, if your job requires heavy lifting or strenuous physical activity, your surgeon may ask you to wait to return to work until after your two-week post-operative appointment. NO DRIVING for at least 8 hours following any dose of an opioid pain medication if one was prescribed for you. Calcium Supplementation: Your body???s calcium levels may temporarily fall following a parathyroid operation. Therefore, allpatients should take calcium supplementation after surgery. We recommend that you purchase your calcium supplement from a pharmacy or grocery store, as it is available [id number] and does not require a prescription. The cost is approximately $10-$15 per bottle. The calcium supplement we recommend is Citrical Maxium (calcium citrate 315 mg with 200 IU Vitamin D3). You need to take 2 tabs (to equal a dose of 630 mg calcium and 400-500 IU of Vitamin D3) three times daily unless instructed differently by your surgeon. If you notice a tingling sensation in your hands, feet, around your mouth, or develop muscle spasms, please call the General Surgery nurse at [phone], since this may mean that you need more calcium. Pathology Report: All specimens removed at surgery are analyzed by a pathologist. This report usually takes approximately 4 business days to be ready. Dr. Palmer will call you with this report as soon as it is available. Follow-up Appointment: Will be scheduled with Dr. Palmer in 6 weeks with a lab appointment to check your calcium Date and time will be mailed to you Please call [phone] to confirm the date and time of your appointment if you do not hear from us in the next 2 weeks Future Appointments Date Time Provider Department Center 11/11/2017 8:00 AM Sam Lai DO [facility] 11/13/2017 11:00 AM Bruna Laguerre MD [facility] Call Doctor for: Call if you have trouble talking or breathing (call 911 if this is severe) Call if you develop numbness or tingling around your mouth/lips or on the tips of your fingers or your hands, as this may mean your calcium is low. This may also be related to pain medication, where the breathing tube was positioned against your lips, the positioning of your arms and hands in the operating room, or how you were positioned when sleeping. If the sensation does not go away within a half hour, or if it worsens prior to that, call us immediately so we can discuss increasing your calcium if we think you need it. Call if your incision becomes red or begins to drain fluid. Call if you have fevers greater than 101 degrees F Call if you have persistent nausea or vomiting (this may be related to opioid pain medications). Call if you begin feeling worse, rather than better, several days after surgery. Phone number for questions: [phone] before 5 PM on weekdays [phone] after 5 PM and on weekends/holidays. Ask for the general surgery resident patient companion. documented in this encounter Medications at Time [...] Take 80 mg by mouth daily. 05/30/2022 rOPINIRole (REQUIP) 0.25 mg Tablet Take 0.25 mg by mouth 2 times daily. 12/25/2017 fluticasone-salmetero l (ADVAIR HFA) 45-21 mcg/actuation HFA Aerosol Inhaler Inhale 2 puffs into the lungs 2 times daily. 01/09/2023 clopidogrel (PLAVIX) 75 mg Tablet Take 75 mg by mouth daily. 01/07/2023 famotidine (PEPCID) 20 mg Tablet Take 20 mg by mouth 2 times daily. 12/25/2017 SENNALAX-S 8.6-50 mg Tablet take 2 tablets by mouth at bedtime 0 08/03/2017 12/25/2017 NOVOLOG FLEXPEN U-100 INSULIN Insulin Pen inject [...] daily. 01/16/2023 documented as of this encounter Progress Notes * Vee White RN - 11/11/2017 9:48 AM EDT Pt d/c to home per md order. Patient AOx4 hrr, lung sounds clear, no n/v sob or chest pain at time of discharge. +bs, voiding clear yellow urine. Patient ambulating independently at this time. Pain well controlled. All LDA's removed. All belongings home with patient. All discharge instructions reviewed with patient. All questions answered. Please see flowsheet for full assessment. Vee White RN * Ramón Hendrix MD - 11/11/2017 12:55 AM EDT General Surgery Post op Check Kallie Darling is a 57 y.o. female sp right upper parathyroidectomy. S: No nausea/vomiting, chest pain, or SOB; minor soreness in the neck, offers no other complaints. Tolerating PO liquids without difficulties swallowing. O: Temp: [36.5 ??C (97.7 ??F)-36.6 ??C (97.9 ??F)] Heart Rate: [66-71] Resp: [14-24] BP: (129-142)/(68-92) SpO2: [92 %-94 %] Heart Rate from SPO2: [66 bpm-73 bpm] I/O last 3 completed shifts: In: 700 [I.V.:700] Out: 13 [Blood:13] I/O this shift: In: 720 [P.O.:720] Out: 700 [Urine:700] Physical Exam Gen: NAD, resting comfortably Neck: soft, tender to palpation without evidence of hematoma. Incision dry and intact. CVS: RRR Resp: CTA Ext: SCDs in place AP Kallie Darling is a 57 y.o. female sp right upper parathyroidectomy currently in stable condition and recovering well - post op PTH @ 1829: 36 pg/ml - continue post operative plan per primary team - pain well controlled - hemodynamically stable, UOP adequate documented in this encounter H&P Notes * Phil Dalton MD - 11/10/2017 4:22 PM EDT H&P 24hr interval update/Pre-operative note Please see Dr. Palmer's note from clinic on 10/16/2017 for further information. ID: Kallie Darling is a 57 y.o. female with a hx of recent CVA with minimal left-sided residualdeficits, HTN, DM, SOCORRO, and cirrhosis (HARDEN/MONA) with portal hypertension who presents to [facility] for parathyroidectomy. S: Kallie Darling endorses no recent change in health. Denies any fever, chills, cough, congestion, change in bowel habits. O: Physical Exam: Most Recent Vitals: 11/10/17 1400 BP: 126/82 Pulse: 60 Resp: 16 Temp: 36.2 ??C (97.2 ??F) SpO2: 98% Gen: NAD CVS: RRR Pulm: CTAB A/P: Kallie Darling is a 57 y.o. female who presents for planned parathyroidectomy with IOPTH. Will proceed with planned operation. Phil Dalton MD 11/10/2017 General Surgery Pgr. [id number] documented in this encounter Miscellaneous Notes * Consult Note - Emily Blanchard RCP - 11/11/2017 1:06 AM EDT Kallie Darling is a 57 yo female with a hx of CVA, HTN, DM, SOCORRO, and cirrohsis who presents to [facility] for a parathyroidectomy. She had a sleep study (per patient) and was given a pacifier thing that would fall out of her mouth during sleep. She agreed to try a CPAP mask tonight. She was placed onV-set Auto with a Max of 15 and a Min of 5. * Op Note - Neptali Palmer MD - 11/10/2017 6:49 PM EDT [facility] Operative Note Patient Name: Kallie Darling : [id number] MR#: [id number] Case Date: 11/10/2017 Surgeon: Surgeon(s) and Role: * Neptali Palmer MD - Primary * Phil Dalton MD Preoperative diagnosis: HPT Postoperative diagnosis: HPT Procedure(s) (LRB): PARATHYROIDECTOMY OR EXPLORATION OF PARATHYROID(S) (WRVU 15.6) (N/A) FACIAL NERVE MONITORING, SETUP LARYNGEAL (WRVU 1.57) (N/A) Anesthesia: General with NIM tube; 10cc 0.25% marcaine with epinephrine Estimated Blood Loss: 13 mL Specimens removed during surgery: Order Name Source Comment Collection Info Order Time SPECIMEN TO PATHOLOGY HPT RIGHT UPPER PARATHYROID excision No 11/10/2017 6:19 PM Number of tissue samples (in container) 1 Time specimen removed from patient: 6:18 PM Biospecimen to store? No Drains: Surgical Closure: Primary Closure - skin incision is completely closed without any wires, ronal, drains or other devices Disposition: awakened from anesthesia, extubated and taken to the recovery room in a stable condition, having suffered no apparent untoward event. Condition: doing well without problems (Please see the Surgical Encounter Summary for any Implant and Specimen details pertinent to this patient.) HPI/Surgical Indications: Ms. Kallie Darling is a 57 y.o. year old female with multiple significant medical comorbidities, including cirrhosis and recent CVA on Plavix with symptomatic biochemical primary hyperparathyroidism dating back at least 5 years. On her initial surgical evaluation, she was deemed a non- surgical candidate. The parathyroid adenoma has come to attention [...] IOPTH levels do not decrease appropriately, we willproceed with a bilateral exploration. Procedure Description: The patient was taken to the operating room and placed on the operating table in the supine position. Adequate general anesthesia was completed by anesthesiology with the Einspecttronic recurrent laryngeal nerve monitoring system. An attempt at an arterial line was ultimately unsuccessful, but we bev the baseline PTH level off one of those attempts. IOPTH levels are noted in the below. A crease on the anterior neck was identified and marked, and this area was infiltrated with10 cc 0.25% marcaine with epinephrine. She was then prepped and draped in the usual sterile fashionover the anterior neck. A timeout procedure was done, and all members of the OR team were in agreement. The procedure began by making a curvilinear incision along the lower anterior neck along the previously marked skin crease with a scalpel. Electrocautery was used to continue dissection through the subcutaneous tissue and through the platysma muscle. Subplatysmal flaps were created in cranial and caudal directions. The median raphe of the strap muscles was divided with electrocautery. We then dissected the strap muscles off the thyroid lobe out to its lateral aspect. The middle thyroidal veins were ligated. We dissected into the paratracheal and paraesophageal space and identified a massivelyenlarged parathyroid gland filling the tracheoesophageal groove, posterior to nearly the entire right thyroid lobe, and extending behind the clavicle into the superior mediastinum. We identified the recurrent laryngeal nerve as it ran into the tracheoesophageal groove medial to the above-described parathyroid and carefully preserved this. With a gentle finger sweep and minor blunt dissection witha peanut, we were easily able to deliver the mediastinal portion of the parathyroid into the neck. We dissected it free onto its vascular pedicle. We developed a plane between the right strap musclesdown to the right internal jugular vein, and bev a pre-excision PTH from the internal jugular vein. We then removed the right-sided (probably right upper) parathyroid gland and ligated its vascular pedicle with a 2-0 silk suture. The gland was passed off the table as a permanent specimen. At 10 and 15 minutes, we bev post-excision PTHs from the internal jugular vein, and at 24 minutes post-excision, we had anesthesia draw a peripheral venous PTH from the left foot. We then irrigated the operative field. A Valsalva to 30 millimeters of mercury was accomplished by Anesthesia. Hemostasis was assured. The recurrent laryngeal nerve was tested again, and it was fullyfunctional on the nerve monitor. We placed Surgicel in the paratracheal space, closed the strap muscles using running 3-0 Vicryl suture, the platysma with interrupted 3-0 Vicryl suture, and the skin with running 5-0 Prolene subcuticular suture. The decreasing values and kinetics of the IOPTH indicated a biochemical cure. We then placed Dermabond on the incision and removed the Prolene suture. IOPTH findings: Baseline: 216 pg/mL Preexcision 92 pg/mL 10-min post-excision 36 pg/mL 15-min post-excision 29 pg/mL 1841 peripheral PTH (24 min post-excision) pending Pg/mL Infection Bundle used? N/A Attestation: Case Date: 11/10/2017 I was present and I participated during the entire procedure (does not need to include opening and closing). NEPTALI PALMER MD 11/10/2017 * Brief Op Note - Neptali Palmer MD - 11/10/2017 6:45 PM EDT Brief Operative Note Patient Name: Kallie Darling : [id number] MR#: [id number] Case Date: 11/10/2017 Surgeon: Surgeon(s) and Role: * Neptali Palmer MD - Primary * Phil Dalton MD Preoperative diagnosis: HPT Postoperative diagnosis: HPT Procedure(s) (LRB): PARATHYROIDECTOMY OR EXPLORATION OF PARATHYROID(S) (WRVU 15.6) (N/A) FACIAL NERVE MONITORING, SETUP LARYNGEAL (WRVU 1.57) (N/A) Anesthesia: General with NIM tube; 10cc 0.25% marcaine with epinephrine Findings: 4.8 x 3.0 x 1.7cm parathyroid adenoma posterior to the right thyroid lobe, extending approximately 1cm into the upper mediastinum. Right RLN intact throughout IOPTH findings: Baseline: 216 pg/mL Preexcision 92 pg/mL 10-min post-excision 36 pg/mL 15-min post-excision 29 pg/mL Peripheral (24 min post-excision) pending Pg/mL Complications: none apparent Intake: Intraprocedure Crystalloid Total 700cc Transfusion No data found. Output: Estimated Blood Loss: 13cc Urine Output:: 0 mL Other Output: (no other output recorded) Drains: none Specimens removed during surgery: Order Name Source Comment Collection Info Order Time SPECIMEN TO PATHOLOGY HPT RIGHT UPPER PARATHYROID excision No 11/10/2017 6:19 PM Number of tissue samples (in container) 1 Time specimen removed from patient: 6:18 PM Biospecimen to store? No Disposition: awakened from anesthesia, extubated and taken to the recovery room in a stable condition, having suffered no apparent untoward event. Condition: doing well without problems Attestation: Case Date: 11/10/2017 I was present and I participated during the entire procedure (does not need to include opening and closing). (Please see the Surgical Encounter Summary for any Implant and Specimen details pertinent to this patient.) documented in this encounter Plan of Treatment Upcoming Encounters Date Type Department Care Team (Late st Contact Info) Description 02/27/2024 2:45 PM EST TH Visit (TeleHealth) [place] [phone] Lashae Lorenzo MD [facility] [place] [address] documented as of this encounter Procedures Procedure Name Priority Date/Time Associated Diagnosis Comments ECG SCAN 11/12/2017 12:00 AM EDT POCT GLUCOSE Routine 11/11/2017 8:01 AM EDT CALCIUM Routine 11/11/2017 3:52 AM EDT POCT GLUCOSE Routine 11/10/2017 10:13 PM EDT POCT GLUCOSE Routine 11/10/2017 7:59 PM EDT INTRAOPERATIVE PTH ([facility]P) STAT 11/10/2017 6:41 PM EDT INTRAOPERATIVE PTH ([facility]P) STAT 11/10/2017 6:34 PM EDT INTRAOPERATIVE PTH ([facility]P) STAT 11/10/2017 6:29 PM EDT SPECIMEN TO PATHOLOGY Routine 11/10/2017 6:20 PM EDT SURGICAL PATHOLOGY REPORT Routine 2017 6:18 PM EDT INTRAOPERATIVE PTH ([facility]/CGP) STAT 11/10/2017 6:10 PM EDT INTRAOPERATIVE PTH ([facility]/CGP) STAT 11/10/2017 5:17 PM EDT FACIAL NERVE MONITORING, SETUP LARYNGEAL (WRVU 1.57) 11/10/2017 4:50 PM EDT HPT PARATHYROIDECTOMY OR EXPLORATION OF PARATHYROID(S) (WRVU 15.6) 11/10/2017 4:50 PM EDT HPT POCT GLUCOSE Routine 11/10/2017 1:53 PM EDT documented in this encounter Results * SCAN DOC: ECG (11/12/2017 12:00 AM EDT) Narrative 11/12/2017 12:00 AM EDT Ordered by an unspecified provider. Scanning Provider MEDIA MGR SCAN EXT O RDR/RSLT * POCT Glucose (11/11/2017 8:01 AM EDT) Glucose, POC 189 65 - 199 mg/dL [facility] Comment: Supplemental ranges: <140 mg/dL before meals <180 mg/dL all other times of the day Blood specimen (specimen) 11/11/2017 8:01 AM EDT 11/11/2017 8:01 AM EDT Neptali Palmer MD POINT OF CARE TAYLOR T ORDERABLES [facility] [place] [address] * Calcium (11/11/2017 3:52 AM EDT) Calcium 10.3 8.5 - 10.5 mg/dL [facility] Blood specimen (specimen) 11/11/2017 3:52 AM EDT 11/11/2017 4:04 AM EDT Narrative Resulting Agency Comment Spec In Lab Neptali Palmer MD CHEMISTRY ORDERAB LES Performing Organization Address City/[facility]/ZIP Co de Phone Number [facility] [place] [address] * POCT Glucose (11/10/2017 10:13 PM EDT) Glucose, POC 166 65 - 199 mg/dL [facility] Comment: Supplemental ranges: <140 mg/dL before meals <180 mg/dL all other times of the day Blood specimen (specimen) 11/10/2017 10:13 PM EDT 11/10/2017 10:13 PM EDT Neptali Palmer MD POINT OF CARE TAYLOR T ORDERABLES Performing Organization Address [facility] Co de Phone Number [facility] [place] [address] * POCT Glucose (11/10/2017 7:59 PM EDT) Glucose, POC 140 65 - 199 mg/dL [facility] Comment: Supplemental ranges: <140 mg/dL before meals <180 mg/dL all other times of the day Blood specimen (specimen) 11/10/2017 7:59 PM EDT 11/10/2017 7:59 PM EDT Neptali Palmer MD POINT OF CARE TAYLOR T ORDERABLES Performing Organization Address [facility] Co de Phone Number [facility] [place] [address] * Intraoperative PTH (Leb/CGP) (11/10/2017 6:41 PM EDT) PTH, Intraoperative 28 9 - 77 pg/mL [facility] Comment: peripheral Called by: PORFIRIO, Read back by: stefan salinas_, Date/Time:11/10/17 19:20. A 50 % decrease in venous iPTH levels at 10 min post adenoma excision is expected if all the hypersecreting parathyroid tissue has been removed (Aleexy GL et al. Surgery 1993:114; [id number]) Blood specimen (specimen) 11/10/2017 6:41 PM EDT 11/10/2017 6:51 PM EDT Narrative Resulting Agency Comment Spec In Lab Neptali Palmer MD CHEMISTRY ORDERAB LES Performing Organization Address [facility] de Phone Number [facility] [place] [address] * Intraoperative PTH (Leb/CGP) (11/10/2017 6:34 PM EDT) PTH, Intraoperative 29 9 - 77 pg/mL [facility] Comment: 15 minute post excision Called by: PORFIRIO, Read back by: stefan salinas_, Date/Time:11/10/17 19:06. A 50 % decrease in venous iPTH levels at 10 min post adenoma excision is expected if all the hypersecreting parathyroid tissue has been removed (Alexey GL et al. Surgery 1993:114; [id number]) Blood specimen (specimen) 11/10/2017 6:34 PM EDT 11/10/2017 6:41 PM EDT Narrative Resulting Agency Comment Spec In Lab Neptali Palmer MD CHEMISTRY ORDERAB LES Performing Organization Address [facility] Co de Phone Number [facility] [place] [address] * Intraoperative PTH (Leb/CGP) (11/10/2017 6:29 PM EDT) PTH, Intraoperative 36 9 - 77 pg/mL [facility] Comment: 10 minute post excision Called by: PORFIRIO, Read back by: stefan salinas_, Date/Time:11/10/17 19:00. A 50 % decrease in venous iPTH levels at 10 min post adenoma excision is expected if all the hypersecreting parathyroid tissue has been removed (Alexey GL et al. Surgery 1993:114; [id number]) Blood specimen (specimen) 11/10/2017 6:29 PM EDT 11/10/2017 6:34 PM EDT Narrative Resulting Agency Comment Spec In Lab Neptali Palmer MD CHEMISTRY ORDERAB LES Performing Organization Address [facility] Co de Phone Number [facility] [place] [address] * Specimen to Pathology (11/10/2017 6:20 PM EDT) AP Specimen 11/10/2017 6:20 PM EDT 11/10/2017 6:29 PM EDT Narrative [facility] - 11/10/2017 6:29 PM EDT Specimen requisition ordered. ??Separate Pathology report to follow Resulting Agency Comment Spec In Lab Neptali Palmer MD PATHOLOGY/CYTOLOG Y ORDERABLES Performing Organization Address [facility] Co de Phone Number [facility] [place] [address] * Surgical Pathology Report (11/10/2017 6:18 PM EDT) Final Diagnosis [id number] ? Location: PACU; [facility]; A The signing pathologist has (i) examined the relevant preparation(s) for the specimen(s) and (ii) rendered or confirmed the diagnosis(es). . ?Surgical Pathology DIAGNOSIS A - Right upper parathyroid Enlarged parathyroid gland, ??compatible with adenoma. Electronically signed by: ??Noemy Gonzalez DO Verified: ??11/13/2017 ?Pathologist Performed at: ??-[facility] Dept. of Pathology, [place], [place] CLINICAL INFORMATION Specimen Submitted: A - Right upper parathyroid Clinical History and Diagnosis: HPT SPECIMEN PROCESSING A - ??Labeled/Fixat stefania: Right upper parathyroid, fresh. Quantity/Size: Single, 4.8 x 3.0 x 1.7 cm, 8.44 g. Tissue Description: Well-circumscri bed nodule of firm brown tissue with relatively homogenous cut surfaces. Sections/Proces sing: Inked and serially sectioned. (R1) ??rolando 11/13/2017 9:24 AM EDT [facility] PARATHYROID STRUCTURE / Unknown 11/10/2017 6:18 PM EDT 11/10/2017 6:18 PM EDT Neptali Palmer MD PATHOLOGY/CYTOLOG Y ORDERABLES Performing Organization Address [facility] Co de Phone Number [facility] [place] [address] * (ABNORMAL) Intraoperative PTH (Leb/CGP) (11/10/2017 6:10 PM EDT) PTH, Intraoperative 92(H) 9 - 77 pg/mL [facility] Comment: prte-excision Called by: PORFIRIO, Read back by: michael salinas, Date/Time:11/10/17 18:43. A 50 % decrease in venous iPTH levels at 10 min post adenoma excision is expected if all the hypersecreting parathyroid tissue has been removed (Alexey GL et al. Surgery 1993:114; [id number]) Blood specimen (specimen) 11/10/2017 6:10 PM EDT 11/10/2017 6:15 PM EDT Narrative Resulting Agency Comment Spec In Lab Neptali Palmer MD CHEMISTRY ORDERAB LES Performing Organization Address [facility] de Phone Number [facility] [place] [address] * (ABNORMAL) Intraoperative PTH (Leb/CGP) (11/10/2017 5:17 PM EDT) PTH, Intraoperative 216(H) 9 - 77 pg/mL [facility] Comment: baseline Called by: PORFIRIO, Read back by: Stefan Salinas_, Date/Time:11/10/17 17:50. A 50 % decrease in venous iPTH levels at 10 min post adenoma excision is expected if all the hypersecreting parathyroid tissue has been removed (Alexey GL et al. Surgery 1993:114; [id number]) Blood specimen (specimen) 11/10/2017 5:17 PM EDT 11/10/2017 5:21 PM EDT Narrative Resulting Agency Comment Spec In Lab Neptali Palmer MD CHEMISTRY ORDERAB LES Performing Organization Address City/[facility]/ZIP Co de Phone Number [facility] [place] [address] * POCT Glucose (11/10/2017 1:53 PM EDT) Glucose, POC 104 65 - 199 mg/dL [facility] Comment: Supplemental ranges: <140 mg/dL before meals <180 mg/dL all other times of the day Blood specimen (specimen) 11/10/2017 1:53 PM EDT 11/10/2017 1:53 PM EDT Neptali Palmer MD POINT OF CARE TAYLOR T ORDERABLES Performing Organization Address [facility] Co de Phone Number [facility] [place] [address] documented in this encounter Visit Diagnoses Diagnosis Primary hyperparathyroidism (PTH 165, Ca 11.0, +PUD but no kidney stone)- Primary Primary hyperparathyroidism S/P parathyroidectomy Other postprocedural status Primary hyperparathyroidism (PTH 165, Ca 11.0, +PUD but no kidney stone) Primary hyperparathyroidism Asthma Unspecified asthma Restless leg syndrome Restless legs syndrome (RLS) Alcoholic gastritis & chronic liver disease (esophageal varices) Alcoholic gastritis without mention of hemorrhage Alcoholic cirrhosis of liver without ascites Alcoholic cirrhosis of liver SOCORRO (obstructive sleep apnea) Obstructive sleep apnea (adult) (pediatric) Obesity (BMI 30-39.9) Obesity, unspecified CVA (cerebral vascular accident) Unspecified cerebral artery occlusion with cerebral infarction documented in this encounter Administered Medications Inactive Administered Medications - up to 3 most recent administrations Medication Order MAR Action Action Date Dose Rate Site acetaminophen (TYLENOL) tablet 1,000 mg 1,000 mg, Oral, EVERY 6 HOURS SCHEDULED, First dose on Fri11/10/17 at 2014, Until Discontinued, Do not exceed 4,000 mg in 24 hours, Routine Given 11/11/2017 5:07 AM EDT 1,000 mg Given 11/10/2017 10:29 PM EDT 1,000 mg budesonide-formoterol (SYMBICORT) 80-4.5 mcg/actuation inhaler 2 Inhalation 2 .Inhalation , Inhalation, EVERY 12 HOURS SCHEDULED (2 times per day), First dose on Fri11/10/17 at 2300, Until Discontinued Given 11/11/2017 8:22 AM EDT 2 .Inhalation Given 11/10/2017 10:28 PM EDT 2 .Inhalation calcium citrate (CALCITRATE) tablet 950 mg 950 mg, Oral, 3 TIMES DAILY, First dose on Fri11/10/17 at 2230, Until Discontinued, Routine Given 11/11/2017 8:22 AM EDT 950 mg Given 11/10/2017 10:50 PM EDT 950 mg carvedilol (COREG) tablet 6.25 mg 6.25 mg, Oral, 2 TIMES DAILY, First dose on Fri11/10/17 at 2230, Until Discontinued, Routine Given 11/11/2017 8:23 AM EDT 6.25 mg Given 11/10/2017 10:29 PM EDT 6.25 mg cholecalciferol (Vitamin D3) tablet 800 Units 800 Units, Oral, 3 TIMES DAILY, First dose on Fri11/10/17 at 2230, Until Discontinued, Routine Given 11/11/2017 8:23 AM EDT 800 Units Given 11/10/2017 10:50 PM EDT 800 Units citalopram (CeleXA) tablet 40 mg 40 mg, Oral, DAILY, First dose on Fri11/11/17 at 0900, Until Discontinued, Routine Given 11/11/2017 8:23 AM EDT 40 mg dextrose 50% IV syringe 25-50 mL 25-50 mL (12.5-25 g), Intravenous, EVERY 1 HOUR PRN, Starting on Fri11/10/17 at 2002, Until Fri11/11/17 at 1245, Low blood sugar, For BG 50-70: 120 mL Juice or Regular (not diet) soda OR 12.5 gram (25 mL) Dextrose 50% IV OR, if no IV access, 1 mg Glucagon IM. Recheck BG in 30 minutes. May repeat juice, dextrose or glucagon once per episode For BG less than 50: 240 mL Juice or Regular (not diet) soda OR 25 grams (50 mL) Dextrose 50% IV OR, if no IV access, 1 mg Glucagon IM. Recheck BG in 30 minutes. May repeat juice, dextrose, or glucagon once per episode. To avoid extravasation, push Dextrose 50% SLOWLY (3 mL over 1 minute) in a patent, running IV, preferably a central line. For persistent hypoglycemia, consider longer-acting treatment for the duration of the active insulin., Routine famotidine (PEPCID) tablet 20 mg 20 mg, Oral, 2 TIMES DAILY, First dose on Fri11/10/17 at 2115, Until Discontinued, Routine Given 11/11/2017 8:21 AM EDT 20 mg Given 11/10/2017 10:30 PM EDT 20 mg gabapentin (NEURONTIN) capsule 800 mg 800 mg, Oral, 3 TIMES DAILY, First dose on Fri11/10/17 at 2115, Until Discontinued, Routine Given 11/11/2017 8:21 AM EDT 800 mg Given 11/10/2017 10:29 PM EDT 800 mg glucagon (human recombinant) injection SolR 1 mg 1 mg, Intramuscular, EVERY 1 HOUR PRN, Starting on Fri11/10/17 at 2002, Until Fri11/11/17 at 1245, Low blood sugar, For BG 50-70: 120 mL Juice or Regular (not diet) soda OR 12.5 gram (25 mL) Dextrose 50% IV OR, if no IV access, 1 mg Glucagon IM. Recheck BG in 30 minutes. May repeat juice, dextrose or glucagon once per episode For BG less than 50: 240 mL Juice or Regular (not diet) soda OR 25 grams (50 mL) Dextrose 50% IV OR, if no IV access, 1 mg Glucagon IM. Recheck BG in 30 minutes. May repeat juice, dextrose, or glucagon once per episode. To avoid extravasation, push Dextrose 50% SLOWLY (3 mL over 1 minute) in a patent, running IV, preferably a central line. For persistent hypoglycemia, consider longer-acting treatment for the duration of the active insulin., Routine insulin lispro (HumaLOG) VIAL injection 1-4 Units 1-4 Units, Subcutaneous, 4 TIMES DAILY BEFORE MEALS & NIGHTLY, First dose on Fri11/10/17 at 2100, Until Discontinued, CORRECTION BOLUS Sensitive to insulin lean patient or total daily dose of all insulin needed to achieve glycemic control less than 30 units BG 140 - 160 Give 1 unit BG 161 - 200 Give 2 units BG 201 - 240 Give 3 units BG greater than 240, give 4 units and recheck BG in 2 hours. If less than 240 after two hours, give no insulin and resume prior schedule. If BG remains greater than 240, repeat 4 units (no more than three times) & call for new basal insulin orders. DO NOT hold if NPO, unless specifically told to do so., Routine Given 11/11/2017 8:21 AM EDT 2 Units Given 11/10/2017 10:27 PM EDT 2 Units ketorolac (TORADOL) injection 15 mg 15 mg, Intravenous, EVERY 6 HOURS PRN, Starting on Fri11/10/17 at 1954, Until Fri11/11/17 at 1245, Pain, for MODERATE pain (4-6), Avoid if CrCl less than 50 ml/min. Do not administer with other NSAIDS, Routine ketorolac (TORADOL) injection 15 mg 15 mg, Intramuscular, EVERY 6 HOURS PRN, Starting on Fri11/10/17 at 1954, Until Fri11/11/17 at 1245, Pain, for MODERATE pain (4-6), Avoid if CrCl less than 50 ml/min. Do not administer with other NSAIDS., Routine levothyroxine (SYNTHROID) tablet 50 mcg 50 mcg, Oral, EVERY MORNING, First dose on Fri11/11/17 at 0600, Until Discontinued, Routine Given 11/11/2017 5:07 AM EDT 50 mcg ondansetron (ZOFRAN) injection 4 mg 4 mg, Intravenous, EVERY 8 HOURS PRN, Starting on Fri11/10/17 at 2058, Until Fri11/11/17 at 1245, Nausea, May repeat times one in 30 minutes if ineffective. If multiple antiemetics are ordered, use ondanstron first, Recovery (Recovery-Hospital Unit) ondansetron (ZOFRAN) tablet 4 mg 4 mg, Oral, EVERY 8 HOURS PRN, Starting on Fri11/10/17 at 2058, Until Fri11/11/17 at 1245, Nausea, Vomiting, If multiple antiemetics are ordered, use ondansetron first. PO Preferred. If patient unable to take PO, may give IV if ordered. May repeat times one in 45 minutes if ineffective., Recovery (Recovery-Hospital Unit), Routine pantoprazole (PROTONIX) tablet 40 mg 40 mg, Oral, DAILY, First dose on Fri11/11/17 at 0900, Until Discontinued, DO NOT CRUSH OR OPEN, Routine Given 11/11/2017 8:22 AM EDT 40 mg sodium chloride 0.9 % flush 5 mL 5 mL, Intravenous, 2 TIMES DAILY, First dose on Fri11/10/17 at 2115, Until Discontinued, Recovery (Recovery[facility]Hospital Unit), Routine Given 11/11/2017 8:24 AM EDT 5 mLs Given 11/10/2017 10:30 PM EDT 5 mLs sodium chloride 0.9% infusion 1,000 mL, at 100 mL/hr, Intravenous, CONTINUOUS, Starting on Fri11/10/17 at 1415, Until Fri11/10/17 at 1955, Day of Surgery (Day of Procedure) New Bag 11/10/2017 2:55 PM EDT 1,000 mLs 100 mL/hr documented in this encounter Active and Recently Administered Medications Times are shown in EDT. Scheduled Medication Order 11/09/2017 11/10/2017 11/11/2017 acetaminophen (TYLENOL) tablet 1,000 mg 1,000 mg, Oral, EVERY 6 HOURS SCHEDULED, First dose on Fri11/10/17 at 2015, Until Discontinued, Do not exceed 4,000 mg in 24 hours, Routine 2014 (Not Given - Provider: Gilberto Nash RN - Reason: Patient Unable)2229 (Given - Provider: Gilberto Nash RN) 0000 (Canceled Entry - Provider: Gilberto Nash RN - Reason: Contraindicated)0507 (Given - Provider: Gilberto Nash RN) budesonide-formoterol (SYMBICORT) 80-4.5 mcg/actuation inhaler 2 Inhalation 2 .Inhalation , Inhalation, EVERY 12 HOURS SCHEDULED (2 times per day), First dose on Fri11/10/17 at 2300, Until Discontinued 2228 (Given - Provider: Gilberto Nash RN) 0822 (Given - Provider: Vee White RN) calcium citrate (CALCITRATE) tablet 950 mg(Linked Group 1) 950 mg, Oral, 3 TIMES DAILY, First dose on Fri11/10/17 at 2230, Until Discontinued, Routine 2250 (Given - Provider: Gilberto Nash RN) 0822 (Given - Provider: Vee White RN) carvedilol (COREG) tablet 6.25 mg 6.25 mg, Oral, 2 TIMES DAILY, First dose on Fri11/10/17 at 2230, Until Discontinued, Routine 222 (Given - Provider: Gilberto Nash RN) 0823 (Given - Provider: Vee White RN) ceFAZolin (ANCEF) 2g in dextrose 5% 100 mL (CANCELED) 2 g, Intravenous, EVERY 8 HOURS, First dose on Fri11/10/17 at 1645, Until Discontinued, Administer over 30 Minutes, Indication for (Active or Suspected): Prophylaxis 171 (Given - Provider: Marie Nieto CRNA) cholecalciferol (Vitamin D3) tablet 800 Units(Linked Group 1) 800 Units, Oral, 3 TIMES DAILY, First dose on Fri11/10/17 at 2230, Until Discontinued, Routine 225 (Given - Provider: Gilberto Nash RN) 08 (Given - Provider: Vee White RN) citalopram (CeleXA) tablet 40 mg 40 mg, Oral, DAILY, First dose on Fri11/11/17 at 0900, Until Discontinued, Routine 08 (Given - Provid er: Vee White RN) famotidine (PEPCID) tablet 20 mg 20 mg, Oral, 2 TIMES DAILY, First dose on Fri11/10/17 at 2115, Until Discontinued, Routine 223 (Given - Provider: Gilberto Nash RN) 08 (Given - Provider: Vee White RN) gabapentin (NEURONTIN) capsule 800 mg 800 mg, Oral, 3 TIMES DAILY, First dose on Fri11/10/17 at 2115, Until Discontinued, Routine 222 (Given - Provider: Gilberto Nash RN) 0821 (Given - Provider: Vee White RN) insulin lispro (HumaLOG) VIAL injection 1-4 Units(Linked Group 2) 1-4 Units, Subcutaneous, 4 TIMES DAILY BEFORE MEALS & NIGHTLY, First dose on Fri11/10/17 at 2100, Until Discontinued, CORRECTION BOLUS Sensitive to insulin lean patient or total daily dose of all insulin needed to achieve glycemic control less than 30 units BG 140 - 160 Give 1 unit BG 161 - 200 Give 2 units BG 201 - 240 Give 3 units BG greater than 240, give 4 units and recheck BG in 2 hours. If less than 240 after two hours, give no insulin and resume prior schedule. If BG remains greater than 240, repeat 4 units (no more than three times) & call for new basal insulin orders. DO NOT hold if NPO, unless specifically told to do so., Routine 222 (Given - Provider: Gilberto Nash, RN) 08 (Given - Provider: Vee White, RN) levothyroxine (SYNTHROID) tablet 50 mcg 50 mcg, Oral, EVERY MORNING, First dose on Fri11/11/17 at 0600, Until Discontinued, Routine 050 (Given - Provid er: Gilbreto Nash RN) pantoprazole (PROTONIX) tablet 40 mg 40 mg, Oral, DAILY, First dose on Fri11/11/17 at 0900, Until Discontinued, DO NOT CRUSH OR OPEN, Routine 08 (Given - Provid er: Vee White, BRY) rOPINIRole (REQUIP) tablet 0.25 mg 0.25 mg, Oral, 2 TIMES DAILY, First dose on Fri11/10/17 at 2115, Until Discontinued, Routine 2114 (Not Given - Provider: Gilberto Nash RN - Reason: Medication not available) sodium chloride 0.9 % flush 5 mL 5 mL, Intravenous, 2 TIMES DAILY, First dose on Fri11/10/17 at 2115, Until Discontinued, Recovery (Recovery-Hospital Unit), Routine 2229 (Given - Provider: Gilberto Nash, RN) 0824 (Given - Provider: Vee White, BRY) Continuous Medication Order 11/09/2017 11/10/2017 11/11/2017 sodium chloride 0.9% infusion (CANCELED) 1,000 mL, at 100 mL/hr, Intravenous, CONTINUOUS, Starting on Fri11/10/17 at 1415, Until Fri11/10/17 at 1955, Day of Surgery (Day of Procedure) 1455 (New Bag - Provider: Sushma Beltran RN - Comment: KVO) PRN Medication Order 11/09/2017 11/10/2017 11/11/2017 albuterol (PROVENTIL) nebulizer solution 2.5 mg 2.5 mg, Nebulization, EVERY 2 HOURS PRN, Starting on Fri11/10/17 at 2001, Until Fri11/11/17 at 1245, Wheezing, Shortness of Breath, Routine BUpivacaine-EPINEPHrine 0.25 %-1:200,000 injection (CANCELED) ONCE PRN, Starting on Fri11/10/17 at 1733, Until Fri11/11/17 at 1245, Intra-Operative (Intra-Procedure), Routine 1733 (Given - Provider: Chel Dalton MD - Comment: neck) dextrose 50% IV syringe 25-50 mL(Linked Group 3) 25-50 mL (12.5-25 g), Intravenous, EVERY 1 HOUR PRN, Starting on Fri11/10/17 at 2001, Until Fri11/11/17 at 1245, Low blood sugar, For BG 50-70: 120 mL Juice or Regular (not diet) soda OR 12.5 gram (25 mL) Dextrose 50% IV OR, if no IV access, 1 mg Glucagon IM. Recheck BG in 30 minutes. May repeat juice, dextrose or glucagon once per episode For BG less than 50: 240 mL Juice or Regular (not diet) soda OR 25 grams (50 mL) Dextrose 50% IV OR, if no IV access, 1 mg Glucagon IM. Recheck BG in 30 minutes. May repeat juice, dextrose, or glucagon once per episode. To avoid extravasation, push Dextrose 50% SLOWLY (3 mL over 1 minute) in a patent, running IV, preferably a central line. For persistent hypoglycemia, consider longer-acting treatment for the duration of the active insulin., Routine glucagon (human recombinant) injection SolR 1 mg(Linked Group 3) 1 mg, Intramuscular, EVERY 1 HOUR PRN, Starting on Fri11/10/17 at 2001, Until Fri11/11/17 at 1245, Low blood sugar, For BG 50-70: 120 mL Juice or Regular (not diet) soda OR 12.5 gram (25 mL) Dextrose 50% IV OR, if no IV access, 1 mg Glucagon IM. Recheck BG in 30 minutes. May repeat juice, dextrose or glucagon once per episode For BG less than 50: 240 mL Juice or Regular (not diet) soda OR 25 grams (50 mL) Dextrose 50% IV OR, if no IV access, 1 mg Glucagon IM. Recheck BG in 30 minutes. May repeat juice, dextrose, or glucagon once per episode. To avoid extravasation, push Dextrose 50% SLOWLY (3 mL over 1 minute) in a patent, running IV, preferably a central line. For persistent hypoglycemia, consider longer-acting treatment for the duration of the active insulin., Routine ketorolac (TORADOL) injection 15 mg(Linked Group 4) 15 mg, Intravenous, EVERY 6 HOURS PRN, Starting on Fri11/10/17 at 1954, Until Fri11/11/17 at 1245, Pain, for MODERATE pain (4-6), Avoid if CrCl less than 50 ml/min. Do not administer with other NSAIDS, Routine ketorolac (TORADOL) injection 15 mg(Linked Group 4) 15 mg, Intramuscular, EVERY 6 HOURS PRN, Starting on Fri11/10/17 at 1954, Until Fri11/11/17 at 1245, Pain, for MODERATE pain (4-6), Avoid if CrCl less than 50 ml/min. Do not administer with other NSAIDS., Routine labetalol (NORMODYNE,TRANDATE) injection 20 mg 20 mg, Intravenous, EVERY 4 HOURS PRN, Starting on Fri11/10/17 at 1954, Until Fri11/11/17 at 1245, High Blood Pressure, Give if SBP greater than 160 mmHg, Routine lidocaine (XYLOCAINE) 10 mg/mL (1 %) injection 3 mg 3 mg (0.3 mL), Subcutaneous, ONCE PRN, 1 dose, Starting on Fri11/10/17 at 2058, Until Fri11/11/17 at 1245, for discomfort with PIV insertion, Recovery (Recovery-Hospital Unit), Routine ondansetron (ZOFRAN) injection 4 mg(Linked Group 5) 4 mg, Intravenous, EVERY 8 HOURS PRN, Starting on Fri11/10/17 at 2058, Until Fri11/11/17 at 1245, Nausea, May repeat times one in 30 minutes if ineffective. If multiple antiemetics are ordered, use ondanstron first, Recovery ([facility]ospital Unit) ondansetron (ZOFRAN) tablet 4 mg(Linked Group 5) 4 mg, Oral, EVERY 8 HOURS PRN, Starting on Fri11/10/17 at 2058, Until Fri11/11/17 at 1245, Nausea, Vomiting, If multiple antiemetics are ordered, use ondansetron first. PO Preferred. If patient unable to take PO, may give IV if ordered. May repeat times one in 45 minutes if ineffective., Recovery ([facility]ospital Unit), Routine sodium chloride 0.9 % flush 5-20 mL 5-20 mL, Intravenous, EVERY 1 MIN PRN, Starting on Fri11/10/17 at 2058, Until Fri11/11/17 at 1245, flush, Flush pertains to all indwelling lines. Flush per protocol found in the job aid using the link provided on this medication record., Recovery ([facility]ospital Unit), Routine Linked Groups Order Group 1: calcium citrate (CALCITRATE) tablet 950 mgJump to med 950 mg, Oral, 3 TIMES DAILY, First dose on Fri11/10/17 at 2230, Until Discontinued, Routine And cholecalciferol (Vitamin D3) tablet 800 UnitsJump to med 800 Units, Oral, 3 TIMES DAILY, First dose on Fri11/10/17 at 2230, Until Discontinued, Routine Group 2: POCT Fingerstick Glucose (CANCELED) Routine, 4 TIMES DAILY BEFORE MEALS & AT BEDTIME, First occurrence on Fri11/10/17 at 2200, Until Specified, Consider choosing FOUR TIMES A DAY BEFORE MEALS AND AT BEDTIME as frequency for: Patients who have good hypoglycemia awareness: -Patients who are eating meals during the day and sleeping at night -Patient who are otherwise stable And insulin lispro (HumaLOG) VIAL injection 1-4 UnitsJump to med 1-4 Units, Subcutaneous, 4 TIMES DAILY BEFORE MEALS & NIGHTLY, First dose on Fri11/10/17 at 2100, Until Discontinued, CORRECTION BOLUS Sensitive to insulin lean patient or total daily dose of all insulin needed to achieve glycemic control less than 30 units BG 140 - 160 Give 1 unit BG 161 - 200 Give 2 units BG 201 - 240 Give 3 units BG greater than 240, give 4 units and recheck BG in 2 hours. If less than 240 after two hours, give no insulin and resume prior schedule. If BG remains greater than 240, repeat 4 units (no more than three times) & call for new basal insulin orders. DO NOT hold if NPO, unless specifically told to do so., Routine Group 3: dextrose 50% IV syringe 25-50 mLJump to med 25-50 mL (12.5-25 g), Intravenous, EVERY 1 HOUR PRN, Starting on Fri11/10/17 at 2001, Until Fri11/11/17 at 1245, Low blood sugar, For BG 50-70: 120 mL Juice or Regular (not diet) soda OR 12.5 gram (25 mL) Dextrose 50% IV OR, if no IV access, 1 mg Glucagon IM. Recheck BG in 30 minutes. May repeat juice, dextrose or glucagon once per episode For BG less than 50: 240 mL Juice or Regular (not diet) soda OR 25 grams (50 mL) Dextrose 50% IV OR, if no IV access, 1 mg Glucagon IM. Recheck BG in 30 minutes. May repeat juice, dextrose, or glucagon once per episode. To avoid extravasation, push Dextrose 50% SLOWLY (3 mL over 1 minute) in a patent, running IV, preferably a central line. For persistent hypoglycemia, consider longer-acting treatment for the duration of the active insulin., Routine Or glucagon (human recombinant) injection SolR 1 mgJump to med 1 mg, Intramuscular, EVERY 1 HOUR PRN, Starting on Fri11/10/17 at 2001, Until Fri11/11/17 at 1245, Low blood sugar, For BG 50-70: 120 mL Juice or Regular (not diet) soda OR 12.5 gram (25 mL) Dextrose 50% IV OR, if no IV access, 1 mg Glucagon IM. Recheck BG in 30 minutes. May repeat juice, dextrose or glucagon once per episode For BG less than 50: 240 mL Juice or Regular (not diet) soda OR 25 grams (50 mL) Dextrose 50% IV OR, if no IV access, 1 mg Glucagon IM. Recheck BG in 30 minutes. May repeat juice, dextrose, or glucagon once per episode. To avoid extravasation, push Dextrose 50% SLOWLY (3 mL over 1 minute) in a patent, running IV, preferably a central line. For persistent hypoglycemia, consider longer-acting treatment for the duration of the active insulin., Routine Group 4: ketorolac (TORADOL) injection 15 mgJump to med 15 mg, Intravenous, EVERY 6 HOURS PRN, Starting on Fri11/10/17 at 1954, Until Fri11/11/17 at 1245, Pain, for MODERATE pain (4-6), Avoid if CrCl less than 50 ml/min. Do not administer with other NSAIDS, Routine Or ketorolac (TORADOL) injection 15 mgJump to med 15 mg, Intramuscular, EVERY 6 HOURS PRN, Starting on Fri11/10/17 at 1954, Until Fri11/11/17 at 1245, Pain, for MODERATE pain (4-6), Avoid if CrCl less than 50 ml/min. Do not administer with other NSAIDS., Routine Group 5: ondansetron (ZOFRAN) tablet 4 mgJump to med 4 mg, Oral, EVERY 8 HOURS PRN, Starting on Fri11/10/17 at 2058, Until Fri11/11/17 at 1245, Nausea, Vomiting, If multiple antiemetics are ordered, use ondansetron first. PO Preferred. If patient unable to take PO, may give IV if ordered. May repeat times one in 45 minutes if ineffective., Recovery ([facility]overy[facility]ospital Unit), Routine Or ondansetron (ZOFRAN) injection 4 mgJump to med 4 mg, Intravenous, EVERY 8 HOURS PRN, Starting on Fri11/10/17 at 2058, Until Fri11/11/17 at 1245, Nausea, May repeat times one in 30 minutes if ineffective. 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
--- OUTSIDE RECORDS SUMMARY | 2024-01-23 00:33 | XMS_ITS | Encounter Summary ---
[place] [address] Care Team Providers Care Enrollment Coordinator Name Role Phone Mehul Valladares DO Primary Care Provider [phone] Encounter Details Date Type Department Care Team (Late st Contact Info) Description 11/13/2017 Telephone [place] [id number] Tasha Davalos, RN Social History Tobacco Use Types Packs/Day [...] encounter Miscellaneous Notes * Telephone Encounter - Tasha Davalos RN - 11/13/2017 10:50 AM EDT Nursing Triage - Phone Note DATE OF CALL: 11/13/2017 TIME OF CALL: 10:50 AM PATIENT DATE OF : 1960 CALLER: RN the patient Learning Needs Assessment Reviewed: Yes SUBJECTIVE - Following up after surgery PERTINENT PAST MEDICAL HISTORY: PT is s/p Brief Operative Note ?? Patient Name: Kallie Darling : [id number] MR#: [id number] ?? Case Date: 11/10/2017 ?? Surgeon: Surgeon(s) and Role: * Ana Dias MD - Primary * Phil Dalton MD ?? Preoperative diagnosis: HPT ?? Postoperative diagnosis: HPT ?? Procedure(s) (LRB): PARATHYROIDECTOMY OR EXPLORATION OF PARATHYROID(S) (WRVU 15.6) (N/A) FACIAL NERVE MONITORING, SETUP LARYNGEAL (WRVU 1.57) (N/A) ?? Anesthesia: General with NIM tube; 10cc 0.25% marcaine with epinephrine ?? Findings: 4.8 x 3.0 x 1.7cm parathyroid adenoma posterior to the right thyroid lobe, extending approximately 1cm into the upper mediastinum. Right RLN intact throughout IOPTH findings: Baseline: NURSING OBJECTIVE/ASSESSMENT: INTERVENTION/PLAN/ FOLLOW UP: Lost connection due to poor phone warehouse representative If your symptoms do not improve, or they worsen, report to your local emergency department. CALLER AGREES: No PCP: Mehul Valladares DO documented in this encounter Plan of Treatment Upcoming Encounters Date Type Department Care Team (Late st Contact Info) Description 02/27/2024 2:45 PM EST TH Visit (TeleHealth) [place] [phone] Lashae Lorenzo MD [facility] [place] [address] documented as of this encounter Visit Diagnoses Not on filedocumented in this encounter Care Teams Enrollment Coordinator Relationship Specialty Start Date End Date Mehul Valladares DO [address] [place] [id number] PCP - General General Internal Medicine 09/04/17 documented as of this encounter
--- OUTSIDE RECORDS SUMMARY | 2024-01-23 00:33 | XMS_ITS | Encounter Summary ---
Author Organization [facility] [place] [address] Care Team Providers Care Byproducts Extractor Name Role Phone Mehul Valladares DO Primary Care Provider Encounter Details Date Type Department Care Team (Late st Contact Info) Description 11/10/2017 2:04 PM EDT - 11/10/2017 4:54 PM EDT Surgery [place] [phone] Neptali Palmer MD [facility] [place] [address] PARATHYROIDECTOMY OR EXPLORATION OF PARATHYROID(S) (WRVU 15.6) Social History Tobacco Use Types Packs/Day Years [...] Sign Reading Time Taken Comments Blood Pressure 126/82 11/10/2017 2:00 PM EDT Pulse 60 11/10/2017 2:00 PM EDT Temperature 36.2 ??C (97.2 ??F) 11/10/2017 2:00 PM ED T Respiratory Rate 16 11/10/2017 2:00 PM EDT Oxygen Saturation 98% 11/10/2017 2:00 PM EDT Inhaled Oxygen Concentration - - [...] 8:00 AM Sam Lai DO [facility] 11/13/2017 11:00 AM Bruna Laguerre MD [facility] Outpatient Services/Studies: Calcium Standing Status: Future [...] Take NSAIDS or Tylenol every 6 hours [id number] for the first 3-5 days following surgery [...] or grocery store, as it is available [id number] and does not require a prescription. The [...] please call the General Surgery nurse at [phone], since this may mean that you need [...] will be mailed to you Please call [phone] to confirm the date and time of your appointment if you do not hear from us in the next 2 weeks Future Appointments Date Time Provider Department Center 11/11/2017 8:00 AM [facility] 11/13/2017 11:00 AM Bruna Laguerre MD [facility] Call Doctor for: Call if you have [...] days after surgery. Phone number for questions: [phone] before 5 PM on weekdays [phone] after 5 PM and on weekends/holidays. Ask for the general surgery resident telecommunications project manager. General Instructions None Follow-up Recommendations for Providers: Routine post-operative care. Recheck calcium in 6 weeks and 6 months. CC: Mehul Valladares, Signed: Phil Dalton MD Surgical Oncology Service Service pager [phone] 11/11/2017 documented in this encounter Discharge Instructions [...] Take NSAIDS or Tylenol every 6 hours jpnfxm-kke-wffxt for the first 3-5 days following surgery [...] or grocery store, as it is available [id number]-[id number] and does not require a prescription. The [...] please call the General Surgery nurse at [phone], since this may mean that you need [...] will be mailed to you Please call [phone] to confirm the date and time of your appointment if you do not hear from us in the next 2 weeks Future Appointments Date Time Provider Department Center 11/11/2017 8:00 AM [facility] Lai DO [facility] 11/13/2017 11:00 AM Bruna Laguerre MD [facility] Call Doctor for: Call if you have [...] days after surgery. Phone number for questions: [phone] before 5 PM on weekdays [phone] after 5 PM and on weekends/holidays. Ask for the general surgery resident telecommunications project manager. documented in this encounter Medications at Time [...] (HARDEN/MONA) with portal hypertension who presents to [facility] for parathyroidectomy. S: Kallie Darling endorses no [...] DM, SOCORRO, and cirrohsis who presents to [facility] for a parathyroidectomy. She had a sleep study (per patient) and was given a pacifier thing that would fall out of her mouth during sleep. She agreed to try a CPAP mask tonight. She was placed onV-set Auto with a Max of 15 and a Min of 5. * Op Note - Neptali Palmer MD - 11/10/2017 6:49 PM EDT [facility] Operative Note Patient Name: Kallie Darling : [id number] MR#: [id number] Case Date: 11/10/2017 Surgeon: Surgeon(s) and Role: [...] anesthesia was completed by anesthesiology with the [employer] recurrent laryngeal nerve monitoring system. An attempt [...] Operative Note Patient Name: Kallie Darling : [id number] MR#: [id number] Case Date: 11/10/2017 Surgeon: Surgeon(s) and Role: [...] EST TH Visit (TeleHealth) [place] [address] Lashae Lorenzo MD [facility] [place] [address] documented as of this encounter Procedures Procedure Name Priority Date/Time Associated Diagnosis Comments ECG SCAN 11/12/2017 12:00 AM EDT POCT GLUCOSE Routine 11/11/2017 8:01 AM EDT CALCIUM Routine 11/11/2017 3:52 AM EDT POCT GLUCOSE Routine 11/10/2017 10:13 PM EDT POCT GLUCOSE Routine 11/10/2017 7:59 PM EDT INTRAOPERATIVE PTH (MC/CGP) STAT 11/10/2017 6:41 PM EDT INTRAOPERATIVE PTH ([facility]/CGP) STAT 11/10/2017 6:34 PM EDT INTRAOPERATIVE PTH ([facility]/CGP) STAT 11/10/2017 6:29 PM EDT SPECIMEN TO PATHOLOGY Routine 11/10/2017 6:20 PM EDT SURGICAL PATHOLOGY REPORT Routine 2017 6:18 PM EDT INTRAOPERATIVE PTH ([facility]/CGP) STAT 11/10/2017 6:10 PM EDT INTRAOPERATIVE PTH ([facility]/CGP) STAT 11/10/2017 5:17 PM EDT FACIAL NERVE [...] Glucose, POC 189 65 - 199 mg/dL [facility] Comment: Supplemental ranges: <140 mg/dL before meals <180 mg/dL all other times of the day Blood specimen (specimen) 11/11/2017 8:01 AM EDT 11/11/2017 8:01 AM EDT Neptali Palmer MD POINT OF CARE TAYLOR T ORDERABLES Performing Organization Address [facility]/ZIP Co de Phone Number [facility] [place] [address] * Calcium (11/11/2017 3:52 AM EDT) Calcium 10.3 8.5 - 10.5 mg/dL [facility] Blood specimen (specimen) 11/11/2017 3:52 AM EDT 11/11/2017 4:04 AM EDT Narrative Resulting Agency Comment Spec In Lab Neptali Palmer MD CHEMISTRY ORDERAB LES [facility] [place] [address] * POCT Glucose (11/10/2017 10:13 PM EDT) Glucose, POC 166 65 - 199 mg/dL [facility] Comment: Supplemental ranges: <140 mg/dL before meals <180 mg/dL all other times of the day Blood specimen (specimen) 11/10/2017 10:13 PM EDT 11/10/2017 10:13 PM EDT Neptali Palmer MD POINT OF CARE TAYLOR T ORDERABLES Performing Organization Address [facility]/ZIP Co de Phone Number [facility] [place] [address] * POCT Glucose (11/10/2017 7:59 PM EDT) Glucose, POC 140 65 - 199 mg/dL [facility] Comment: Supplemental ranges: <140 mg/dL before meals <180 mg/dL all other times of the day Blood specimen (specimen) 11/10/2017 7:59 PM EDT 11/10/2017 7:59 PM EDT Neptali Palmer MD POINT OF CARE TAYLOR T ORDERABLES Performing Organization Address City/[facility]/ZIP Co de Phone Number [facility] [place] [address] * Intraoperative PTH (Leb/CGP) (11/10/2017 6:41 PM EDT) PTH, Intraoperative 28 9 - 77 pg/mL [facility] Comment: peripheral Called by: PORFIRIO, Read back by: stefan salinas_, Date/Time:11/10/17 19:20. A 50 % decrease in venous iPTH levels at 10 min post adenoma excision is expected if all the hypersecreting parathyroid tissue has been removed (Alexey GL et al. Surgery 1993:114; [id number]) Blood specimen (specimen) 11/10/2017 6:41 PM EDT 11/10/2017 6:51 PM EDT Narrative Resulting Agency Comment Spec In Lab Neptali Palmer MD CHEMISTRY ORDERAB LES Performing Organization Address [facility] de Phone Number [facility] [place] [address] * Intraoperative PTH (Leb/CGP) (11/10/2017 6:34 PM EDT) PTH, Intraoperative 29 9 - 77 pg/mL [facility] Comment: 15 minute post excision Called by: PORFIRIO, Read back by: stefan salinas_, Date/Time:11/10/17 19:06. A 50 % decrease in venous iPTH levels at 10 min post adenoma excision is expected if all the hypersecreting parathyroid tissue has been removed (Alexey GL et al. Surgery 1993:114; [id number]) Blood specimen (specimen) 11/10/2017 6:34 PM EDT 11/10/2017 6:41 PM EDT Narrative Resulting Agency Comment Spec In Lab Neptali Palmer MD CHEMISTRY ORDERAB LES Performing Organization Address [facility] Co de Phone Number [facility] [place] [address] * Intraoperative PTH (Leb/CGP) (11/10/2017 6:29 PM EDT) PTH, Intraoperative 36 9 - 77 pg/mL [facility] Comment: 10 minute post excision Called by: PORFIRIO, Read back by: stefan salinas_, Date/Time:11/10/17 19:00. A 50 % decrease in venous iPTH levels at 10 min post adenoma excision is expected if all the hypersecreting parathyroid tissue has been removed (Alexey GL et al. Surgery 1993:114; [id number]) Blood specimen (specimen) 11/10/2017 6:29 PM EDT 11/10/2017 6:34 PM EDT Narrative Resulting Agency Comment Spec In Lab Neptali Palmer MD CHEMISTRY ORDERAB LES Performing Organization Address City/[facility] Co de Phone Number [facility] [place] [address] * Specimen to Pathology (11/10/2017 6:20 PM EDT) AP Specimen 11/10/2017 6:20 PM EDT 11/10/2017 6:29 PM EDT Narrative [facility] - 11/10/2017 6:29 PM EDT Specimen requisition ordered. ??Separate Pathology report to follow Resulting Agency Comment Spec In Lab Neptali Palmer MD PATHOLOGY/CYTOLOG Y ORDERABLES Performing Organization Address [facility] Co de Phone Number [facility] [place] [address] * Surgical Pathology Report (11/10/2017 6:18 PM EDT) Final Diagnosis [id number] ? Location: PACU; [facility]; A The signing pathologist has (i) examined the relevant preparation(s) for the specimen(s) and (ii) rendered or confirmed the diagnosis(es). . ?Surgical Pathology DIAGNOSIS A - Right upper parathyroid Enlarged parathyroid gland, ??compatible with adenoma. Electronically signed by: ??Noemy Gonzalez DO Verified: ??11/13/2017 ?Pathologist Performed at: ??-[facility] Dept. of Pathology, [place], [place] CLINICAL INFORMATION Specimen Submitted: A - Right upper parathyroid Clinical History and Diagnosis: HPT SPECIMEN PROCESSING A - ??Labeled/Fixat stefania: Right upper parathyroid, fresh. Quantity/Size: Single, 4.8 x 3.0 x 1.7 cm, 8.44 g. Tissue Description: Well-circumscri bed nodule of firm brown tissue with relatively homogenous cut surfaces. Sections/Proces sing: Inked and serially sectioned. (R1) ??rolando 11/13/2017 9:24 AM EDT [facility] PARATHYROID STRUCTURE / Unknown 11/10/2017 6:18 PM EDT 11/10/2017 6:18 PM EDT Neptali Palmer MD PATHOLOGY/CYTOLOG Y ORDERABLES Performing Organization Address [facility] Co de Phone Number [facility] [place] [address] * (ABNORMAL) Intraoperative PTH (Leb/CGP) (11/10/2017 6:10 PM EDT) PTH, Intraoperative 92(H) 9 - 77 pg/mL [facility] Comment: prte-excision Called by: PORFIRIO, Read back by: michael salinas, Date/Time:11/10/17 18:43. A 50 % decrease in venous iPTH levels at 10 min post adenoma excision is expected if all the hypersecreting parathyroid tissue has been removed (Alexey GL et al. Surgery 1993:114; [id number]) Blood specimen (specimen) 11/10/2017 6:10 PM EDT 11/10/2017 6:15 PM EDT Narrative Resulting Agency Comment Spec In Lab Neptali Palmer MD CHEMISTRY ORDERAB LES Performing Organization Address [facility] Co de Phone Number [facility] [place] [address] * (ABNORMAL) Intraoperative PTH (Leb/CGP) (11/10/2017 5:17 PM EDT) PTH, Intraoperative 216(H) 9 - 77 pg/mL [facility] Comment: baseline Called by: PORFIRIO, Read back by: Stefan Salinas_, Date/Time:11/10/17 17:50. A 50 % decrease in venous iPTH levels at 10 min post adenoma excision is expected if all the hypersecreting parathyroid tissue has been removed (Alexey GL et al. Surgery 1993:114; 2513-9910) Blood specimen (specimen) 11/10/2017 5:17 PM EDT 11/10/2017 5:21 PM EDT Narrative Resulting Agency Comment Spec In Lab Neptali Palmer MD CHEMISTRY ORDERAB LES Performing Organization Address City/[facility]/ZIP Co de Phone Number [facility] [place] [address] * POCT Glucose (11/10/2017 1:53 PM EDT) Glucose, POC 104 65 - 199 mg/dL [facility] Comment: Supplemental ranges: <140 mg/dL before meals <180 mg/dL all other times of the day Blood specimen (specimen) 11/10/2017 1:53 PM EDT 11/10/2017 1:53 PM EDT Neptali Palmer MD POINT OF CARE TAYLOR T ORDERABLES Performing Organization Address [facility] Co de Phone Number [facility] [place] [address] documented in this encounter Visit Diagnoses Not [...] Given 11/10/2017 10:28 PM EDT 2 .Inhalation BUpivacaine-EPINEPHrine 0.25 %-1:200,000 injection ONCE PRN, Starting on Fri11/10/17 at 1733, Until Fri11/11/17 at 1245, Intra-Operative (Intra-Procedure), Routine Given 11/10/2017 5:33 PM EDT 10 mLs 20-Other (document i n comment section) calcium citrate (CALCITRATE) tablet 950 mg 950 [...] Provider: Gilberto Nash RN - Reason: Patient Unable)222 (Given - Provider: Gilberto Nash RN) 0000 (Canceled Entry - Provider: Gilberto Nash RN - Reason: Contraindicated)0507 (Given - Provider: Gilberto Nash RN) budesonide-formoterol (SYMBICORT) 80-4.5 mcg/actuation inhaler 2 Inhalation 2 .Inhalation , Inhalation, EVERY 12 HOURS SCHEDULED (2 times per day), First dose on Fri11/10/17 at 2300, Until Discontinued 2227 (Given - Provider: Gilberto Nash RN) 08 (Given - Provider: Vee White, RN) calcium citrate (CALCITRATE) tablet 950 mg(Linked Group 1) 950 mg, Oral, 3 TIMES DAILY, First dose on Fri11/10/17 at 2230, Until Discontinued, Routine 225 (Given - Provider: Gilberto Nash RN) 08 (Given - Provider: Vee White, RN) carvedilol (COREG) tablet 6.25 mg 6.25 mg, Oral, 2 TIMES DAILY, First dose on Fri11/10/17 at 2230, Until Discontinued, Routine 2228 (Given - Provider: Gilberto Nash RN) 0823 (Given - Provider: Vee White, BRY) ceFAZolin (ANCEF) 2g in dextrose 5% 100 [...] Nash RN) 08 (Given - Provider: Vee White, BRY) citalopram (CeleXA) tablet 40 mg 40 mg, Oral, DAILY, First dose on Fri11/11/17 at 0900, Until Discontinued, Routine 08 (Given - Provid er: Vee White RN) famotidine (PEPCID) tablet 20 mg 20 mg, Oral, 2 TIMES DAILY, First dose on Fri11/10/17 at 2115, Until Discontinued, Routine 2229 (Given - Provider: Gilberto Nash RN) 08 (Given - Provider: Vee White, BRY) gabapentin (NEURONTIN) capsule 800 mg 800 mg, Oral, 3 TIMES DAILY, First dose on Fri11/10/17 at 2115, Until Discontinued, Routine 2228 (Given - Provider: Gilberto Nash RN) 0821 (Given - Provider: Vee White, BRY) insulin lispro (HumaLOG) VIAL injection 1-4 Units(Linked [...] unless specifically told to do so., Routine 2226 (Given - Provider: Gilberto Nash RN) 08 (Given - Provider: Vee White, BRY) levothyroxine (SYNTHROID) tablet 50 mcg 50 mcg, Oral, EVERY MORNING, First dose on Fri11/11/17 at 0600, Until Discontinued, Routine 050 (Given - Provid er: Gilberto Nash RN) pantoprazole (PROTONIX) tablet 40 mg 40 mg, Oral, DAILY, First dose on Fri11/11/17 at 0900, Until Discontinued, DO NOT CRUSH OR OPEN, Routine 821 (Given - Provid er: Vee White, BRY) [...] Routine 2229 (Given - Provider: Gilberto Nash, BRY) 0824 (Given - Provider: Vee White, BRY) [...] 2 HOURS PRN, Starting on Fri11/10/17 at 2002, Until Fri11/11/17 at 1245, Wheezing, Shortness of [...] Unit) documented in this encounter Care Teams Byproducts Extractor Relationship Specialty Start Date End Date Mehul Valladares DO [address] [place] [id number] PCP - General General Internal Medicine 09/04/17 documented as of this encounter
--- OUTSIDE RECORDS SUMMARY | 2024-01-23 00:33 | XMS_ITS | Encounter Summary ---
Author Organization [facility] [place] [address] Care Team Providers Care Fund Accountant Name Role Phone Mehul Valladares DO Primary Care Provider Encounter Details Date Type Department Care Team (Late st Contact Info) Description 09/11/2017 3:00 PM EDT - 09/11/2017 4:30 PM EDT Surgery Gastroenterology at [facility] [place] [id number] Josh Guadarrama [place] [address] BRONCH, W ENDOBRONCHIAL ULTRASOUND (EBUS) GUIDED SAMPLING, 3+ NODES (WRVU 4.96) Social History Tobacco Use Types Packs/Day Years [...] Sign Reading Time Taken Comments Blood Pressure 146/120 09/11/2017 3:02 PM EDT Pulse 78 09/11/2017 3:02 PM EDT Temperature - - Respiratory Rate 20 09/11/2017 3:02 PM EDT Oxygen Saturation 95% 09/11/2017 3:02 PM EDT Inhaled Oxygen Concentration - - [...] Contact Numbers Friday - Friday Pulmonary Clinic [phone] 8a-5p Same Day Endoscopy [phone] 7a-8p Otherwise call [facility] and ask to speak to the Pulmonary Doctor fire control system installer [phone] Discharge instructions reviewed with patient who expresses [...] Guadarrama MD - 09/11/2017 6:26 PM EDT [facility] Operative Note Patient Name: Kallie Darling : [id number] MR#: [id number] Case Date: 09/11/2017 Surgeon: Surgeon(s) and Role: [...] EST TH Visit (TeleHealth) [place] [address] Lashae Lorenzo MD [facility] [place] [address] documented as of this encounter Procedures Procedure Name Priority Date/Time Associated Diagnosis Comments NON-MOLD MAKER FINAL REPORT Routine 09/11/2017 5:22 PM EDT CYTOPATHOLOGY NON-GYNECOLOGICAL Routine 09/11/2017 4:09 PM EDT BRONCH, W ENDOBRONCHIAL ULTRASOUND (EBUS) GUIDED SAMPLING, 3+ NODES (WRVU 4.96) 09/11/2017 3:50 PM EDT Lung mass ENDOBRONCHIAL ULTRASOUND (EBUS) Routine 09/11/2017 3:19 PM EDT POCT GLUCOSE Routine 09/11/2017 3:12 PM EDT POCT FINGERSTICK GLUCOSE Routine 09/11/2017 documented in this encounter Results * Non-Digital Advertising Analyst Final Report (09/11/2017 5:22 PM EDT) Diagnosis Discussion [id number] ? Location: 4T; EA07; A The signing pathologist has (i) examined the relevant preparation(s) for the specimen(s) and (ii) rendered or confirmed the diagnosis(es). . ? Non-Digital Advertising Analyst Final DIAGNOSIS See Discussion Electronically signed by: ??James Escalante MD Verified: ??09/16/2017 ?Cytopathologist Performed at: ??-[facility] Dept. of Pathology, [place], [place] DISCUSSION Paratracheal: right (EBUS-guided FNA) - [...] for completed interpretation. 09/16/2017 4:27 PM EDT [facility] Misc. FNA 09/11/2017 5:22 PM EDT 09/11/2017 5:22 PM EDT Josh Guadarrama MD PATHOLOGY/CYTOLOGY ORDERABLES Performing Organization Address City/[facility] [place] [address] * Cytopathology Non-Gynecological (09/11/2017 4:09 PM EDT) AP Specimen 09/11/2017 4:09 PM EDT 09/11/2017 4:09 PM EDT Narrative [facility] - 09/11/2017 4:09 PM EDT Specimen requisition ordered. ??Separate Pathology report to follow Josh Guadarrama MD PATHOLOGY/CYTOLOGY ORDERABLES Performing Organization Address City/[facility] Co de Phone Number [facility] [place] [address] * ENDOBRONCHIAL ULTRASOUND (EBUS) (09/11/2017 3:19 PM EDT) EBUS [facility] Bronchoscopy Patient Name: Kallie Darling ? Procedure Date: 09/11/2017 3:19 PM ? Age: 57 ? Procedure: ?Ebus Providers: ?Cj Warner ?BRY Biag, Kiara Mckeon MD: ? Mehul Valladares MD [...] by the physician, the ?nurse and the funeral arranger. Mental ?Status Examination: normal. ASA ?Grade Assessment: [...] GENERAL SURGICAL OR DERABLES Performing Organization Address [facility] de Phone Number [employer] * POCT Glucose (09/11/2017 3:12 PM EDT) Glucose, POC 120 65 - 199 mg/dL [facility] Comment: Supplemental ranges: <140 mg/dL before meals <180 mg/dL all other times of the day Blood specimen (specimen) 09/11/2017 3:12 PM EDT 09/11/2017 3:12 PM EDT Josh Guadarrama MD POINT OF CARE TEST ORDERABLES Performing Organization Address [facility] de Phone Number [facility] [place] [address] * POCT Fingerstick Glucose (09/11/2017) Glucose, POC 120 60 - 199 mg/dl 09/11/2017 Josh Guadarrama MD POINT OF CARE TEST ORDERABLES documented in this encounter Visit Diagnoses Diagnosis Lung mass Swelling, mass, or lump in chest documented in this encounter Care Teams Fund Accountant Relationship Specialty Start Date End Date Mehul Valladares DO [address] [place] [address] PCP - General General Internal Medicine 09/04/17 documented as of this encounter
--- OUTSIDE RECORDS SUMMARY | 2024-01-23 00:33 | XMS_ITS | Encounter Summary ---
[place] [address] Care Team Providers Care Dot Compliance Manager Name Role Phone Grant Lindsey MD Primary Care Provider [phone] Encounter Details Date Type Department Care Team (Latest Contact Info) Description 04/19/2020 11:15 AM EST Laboratory Appointment Lab [address] [place] [address] Hepatic cirrhosis, unspecified hepatic cirrhosis [...] EST TH Visit (TeleHealth) [place] [address] Lashae Lorenzo MD [facility] [place] [address] documented as of this encounter Procedures Procedure Name Priority Date/Time Associated Diagnosis Comments HEMOGRAM Routine 04/19/2020 10:11 AM EST Hepatic cirrhosis, unspecified hepatic cirrhosis type, unspecified whether ascites present DIFFERENTIAL, AUTOMATED Routine 04/19/2020 10:11 AM EST Hepatic cirrhosis, unspecified hepatic cirrhosis type, unspecified whether ascites present HC PROTHROMBIN TIME Routine 04/19/2020 1 0:11 AM EST Hepatic cirrhosis, unspecified hepatic cirrhosis type, unspecified whether ascites present HC CBC,PLT & AUTO DIFF Routine 04/19/2020 10:11 AM EST Hepatic cirrhosis, unspecified hepatic cirrhosis type, unspecified whether ascites present documented in this encounter Results * Differential, Automated (04/19/2020 10:11 AM EST) Neutrophil % 60.4 % [facility] Neutrophil Absolute 3.09 1.70 - 6.10 x10(3)/[facility] Lymph % 30.7 % [facility] Lymphocytes Abs 1.6 0.9 - 3.2 x10(3)/[facility] Monocyte % 6.1 % [facility] Monocyte Abs 0.3 0.3 - 0.9 x10(3)/[facility] Eos % 2.0 % [facility] Eosinophils Abs 0.1 0.0 - 0.4 x10(3)/[facility] Basophil % 0.4 % [facility] Baso Absolute 0.0 0.0 - 0.1 x10(3)/[facility] Immature Gran % 0.40 % [facility] Comment: Immature granulocytes(IG's)percentage and absolute count will include metamyelocytes, myelocytes, and promyelocytes. Blood smears from CBCs yielding IG's will be scanned manually for concordance. If this scan disagrees with the automated IG or if promyelocytes are noted, a manual differential will be performed. Immature Gran Absolute 0.02 0.00 - 0.04 x10(3)/mcL [facility] Blood specimen (specimen) 04/19/2020 10:11 AM EST 04/19/2020 10:19 AM EST Narrative Resulting Agency Comment Spec In Lab Saniyaruthie Davis STORAGE SPECIALIST HEMATOLOGY ORDERAB LES Performing Organization Address City/State/[facility] Co de Phone Number [facility] [place] [address] * (ABNORMAL) Hemogram (04/19/2020 10:11 AM EST) White Blood Cell 5.1 4.0 - 9.5 x10(3)/ L [facility] Red Blood Cell 4.36 4.00 - 5.21 x10(6)/[facility] Hemoglobin 11.9 11.7 - 15.5 gm/dL [facility] Hematocrit 36.6 35.7 - 45.8 % [facility] Mean Cell Volume 83.9 82.6 - 94.4 fL [facility] Mean Cell Hemoglobin 27.3 27.1 - 32.0 pg [facility] Mean Cell Hemoglobin Concentration 32.5 31.7 - 35.0 gm/dL [facility] Platelet 115(L) 145 - 357 x10(3)/[facility] LAB[facility] RDW Standard Deviation 42.3 37.0 - 46.0 [facility] RDW coefficient of variation 13.8 11.5 - 14.1 % [facility] Mean Platelet Volume 9.7 7.6 - 12.9 [facility] NRBC% auto 0.0 % [facility] NRBC Absolute 0.000 0.000 - 0.000 x10(3)/ L [facility] Blood specimen (specimen) 04/19/2020 10:11 AM EST 04/19/2020 10:19 AM EST Narrative Resulting Agency Comment Spec In Lab Saniya Villalobos Susan LEDESMAN HEMATOLOGY ORDERAB LES Performing Organization Address City/[facility]/ZIP Co de Phone Number [facility] [place] [address] * (ABNORMAL) Prothrombin Time (04/19/2020 10:11 AM EST) Prothrombin Time 12.6(H) 9.4 - 12.5 sec [facility] International Normalization Ratio 1.1 [facility] Comment: An INR <2.0 [...] Resulting Agency Comment Spec In Lab Saniya Jaimemaldonado GARCIA HEMATOLOGY ORDERAB LES Performing Organization Address City/[facility]/ZIP Co de Phone Number [facility] [place] [address] documented in this encounter Visit Diagnoses Diagnosis Hepatic cirrhosis, unspecified hepatic cirrhosis type, unspecified whether ascites present documented in this encounter Care Teams Dot Compliance Manager Relationship Specialty Start Date End Date Grant Lindsey MD PCP - General Family Medicine 02/25/19 documented as of this encounter
--- OUTSIDE RECORDS SUMMARY | 2024-01-23 00:33 | XMS_ITS | Encounter Summary ---
Author Organization [facility] 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 Encouraged her to call me or contact me via Formlabso that we can wean her off the calcium supplementation. documented in this encounter Plan of Treatment Upcoming Encounters Date Type Department Care Team (Late st Contact Info) Description 02/27/2024 2:45 PM EST TH Visit (TeleHealth) [place] [address] Lashae Lorenzo MD [facility] [place] [address] documented as of this encounter Visit Diagnoses Not on filedocumented in this encounter Care Teams Quality Assurance Lead Relationship Specialty Start Date End Date Mehul Valladares DO [address] [place] [address] PCP - General General Internal Medicine 09/04/17 documented as of this encounter
--- OUTSIDE RECORDS SUMMARY | 2024-01-23 00:33 | XMS_ITS | Encounter Summary ---
Author Organization [facility] [place] [address] Care Team Providers Care Coffee Sommelier Name Role Phone Grant Lindsey MD Primary Care Provider [phone] Encounter Details Date Type Department Care Team (Late st Contact Info) Description 02/07/2020 Orders [place] [phone] Saniya Thomson APRN [facility] [place] [address] Cirrhosis of liver without ascites, unspecified hepatic cirrhosis type Social History Tobacco Use Types Packs/Day [...] EST TH Visit (TeleHealth) [place] [phone] Lashae Lorenzo MD [facility] [place] [address] documented as of this encounter Results * US Abdomen Limited [...] 09:46 am) PATIENT INFO: ID #: ? [id number] ?: ??[birth year] (59 yrs)(F) Name: ? KALLIE SMART ? Visit Date: 04/19/2020 09:15 am PERFORMED BY: Performed By: ? Yecenia Cook RDMS Attending: ?Primo Guthrie MD Referred By: ?SANIYA Wilfredo BERTO Location: ? [place] SERVICE([facility]) PROVIDED: ??UABDLIM - Hepatology Protocol - Abdominal ? 38973 ??Limited Survey Single Organ or Quadrant - ??[id number] INDICATIONS: ??Cirrhosis; HCC surveillance; assess for ??splenomegaly. [...] 04/19/2020 09:46 am) PATIENT INFO: ID #: [id number] : 60 (59 yrs)(F) Name: KALLIE SMART Visit Date: 04/19/2020 09:15 am PERFORMED BY: Performed By: Yecenia Cook RDMS Attending: Primo Guthrie MD Referred By: SANIYA THOMSON Location: [place] SERVICE([facility]) PROVIDED: UABDLIM - Hepatology Protocol - Abdominal 85706 Limited Survey Single Organ or Quadrant - [id number] INDICATIONS: Cirrhosis; HCC surveillance; assess for splenomegaly. [...] this report, please contact the number below. Primo Guthrie, Staff Physician Electronically Signed Final Report 04/19/2020 09:46 am Saniya Thomson CARPET SEWING MACHINE OPERATOR IMG US GEN ORDERAB LES documented in this encounter Visit Diagnoses Diagnosis Cirrhosis of liver without ascites, unspecified hepatic cirrhosis type Cirrhosis of liver without ascites, unspecified hepatic cirrhosis type documented in this encounter Care Teams Coffee Sommelier Relationship Specialty Start Date End Date Grant Lindsey MD PCP - General Family Medicine 02/25/19 documented as of this encounter
--- OUTSIDE RECORDS SUMMARY | 2024-01-23 00:33 | XMS_ITS | Encounter Summary ---
Author Organization [facility] [place] [address] Care Team Providers Care Plate Filler Name Role Phone Mehul Valladares DO Primary Care Provider [phone] Encounter Details Date Type Department Care Team (Late st Contact Info) Description 10/16/2017 10:40 AM EDT Clinical [place] [address] Social History Tobacco Use Types [...] as of this encounter Progress Notes * Rachel Cochran, RN - 10/16/2017 10:40 AM EDT PAT questionnaire reviewed with patient while in Pre Admission testing. Has had anesthesia before without problems. Has had worsening SOB which she says her PCP is aware of. Has been routinely using her Albuterol inhaler. Will be seeing Leilani El for an anesthesia evaluation. Pre-operative instruction booklet reviewed. Patient verbalizes a good understanding of all information reviewed. PLAN: Testing: None ordered. Special medication instructions: D/C Plavix for 5 days. Procedure date: 11/10. Lisbet documented in this encounter Plan of Treatment Upcoming Encounters Date Type Department Care Team (Late st Contact Info) Description 02/27/2024 2:45 PM EST TH Visit (TeleHealth) [place] [address] Lashae Lorenzo MD [facility] [place] [address] documented as of this encounter Visit Diagnoses Not on filedocumented in this encounter Care Teams Plate Filler Relationship Specialty Start Date End Date Mehul Valladares DO [address] [place] [address] PCP - General General Internal Medicine 09/04/17 documented as of this encounter
--- OUTSIDE RECORDS SUMMARY | 2024-01-23 00:33 | XMS_ITS | Encounter Summary ---
[place] [address] Care Team Providers Care Guide Escort Name Role Phone Grant Lindsey MD Primary Care Provider [phone] Encounter Details Date Type Department Care Team (Late st Contact Info) Description 06/08/2019 Telephone [place] [phone] [facility]quez, [facility] Social History Tobacco Use Types Packs/Day [...] * Telephone Encounter - Naomi Vasquez - 06/08/2019 9:59 AM EST Kallie Darling [id number] Diagnosis/Indication: cirrhosis, varicey screening abd pain 1. Have you ever had a/an Upper Endoscopy & Colonoscopy before? Yes: Date EGD in 2016, colo in 2013 If yes, did you have any problems with the procedure? No What type of sedation was used: IV Conscious Sedation 2. Do you take any Blood Thinners? Yes: Type: aware she needs to stop for the procedure 3. Do you have a Pacemaker or Defibrillator device? No 4. Are you a diabetic? Yes: Controlled by diet or medication? Both 5. Do you have any Allergies to Eggs, Latex or Medications? Yes: in chart 6. Do you take any Oral Iron Supplements (Including multi-vitamins)? No 7. Do you have a history of three or more abdominal surgeries? No 8. Have you had a problem with sedation or anesthesia? No 9. Do you have a c-pap machine or oxygen tank? Neither 10. Do you take prescription narcotic pain medications? No 11. Do you have a preference regarding the gender of your provider? No Preference 12. Is there any other information you would like to give us to aid in scheduling? No 13. Say to patient: You must have a responsible constitution party who will drive you to your procedure, stay [place] for the entire duration of your procedure, and drive you home from your procedure?yes Height: 5'5 Weight: 217 Age:58 y.o. documented in this encounter Plan of Treatment Upcoming Encounters Date Type Department Care Team (Late st Contact Info) Description 02/27/2024 2:45 PM EST TH Visit (TeleHealth) [place] [address] [facility] [place] [address] documented as of this encounter Visit Diagnoses Not on filedocumented in this encounter Care Teams Guide Escort Relationship Specialty Start Date End Date Grant Lindsey MD PCP - General Family Medicine 02/25/19 documented as of this encounter
--- OUTSIDE RECORDS SUMMARY | 2024-01-23 00:34 | XMS_ITS | Encounter Summary ---
Author Organization [facility] [place] [address] Care Team Providers Care Glass Blower Name Role Phone Malu Sampson APRN Primary Care Provider [phone] Reason for Visit * Reason Comments Loss of Vision * Consultation (Routine) - Closed Specialty Diagnoses / Procedures Referred By Nicol sparks Referred To Contact Ophthalmology Diagnoses UNKNOWN VISUAL FIELD DEFECT Primo Wilder MD [address] [place] [address] Mauricio Fairchild MD [facility] [place] [address] Referral ID Status Reason Start Date Expiration Date V isits Requested Visits Authorized [id number] Closed Consult, Test & Treat 04/25/2017 04/25/2018 1 1 Encounter Details Date Type Department Care Team (Late st Contact Info) Description 05/05/2017 12:30 PM EST Office [place] [address] Mauricio Fairchild MD [facility] [place] [address] Visual disturbances; Visual field defects Social History Tobacco Use Types Packs/Day Years Used Date Smoking Tobacco: Every Day Cigarettes 0.5 30 Smokeless Tobacco: Never Alcohol Use Standard [...] Progress Notes * Mauricio Greenwood MD - 05/05/2017 12:30 PM EST Kallie Darling is here for possible visual field defect in the left eye. 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 The vision in the left eye has been chronically poor. She occasionally sees floaters in both eyes, and has an intermittent sharp pain in the left eye. On examination today, Kallie Darling exhibited 20/40 vision in the right and 20/150 vision in the left. She demonstrated full color vision, with no evidence of a relative afferent pupillary defect that would suggest an underlying optic nerve dysfunction. Static visual khan were highly unreliable and revealed bilateral superior rim defects. The optic nerves are healthy and pink with normal retinal findings. The OCT revealed normal RNFL of both optic nerves. Healthy optic nerves on examination, does not correlate to her visual field. I would like to re-assess her in 2 weeks with a Goldmann visual field, to better delineate her peripheral field. documented in this encounter Plan of Treatment Upcoming Encounters Date Type Department Care Team (Late st Contact Info) Description 02/27/2024 2:45 PM EST TH Visit (TeleHealth) [place] [address] Lashae Lorenzo MD [facility] [place] [address] documented as of this encounter Procedures Procedure Name Priority Date/Time Associated Diagnosis Comments FUNDUS PHOTOS - OU- BOTH EYES Routine 05/09/2017 1:39 PM EST Visual disturbances OCT OPTIC NERVE - OU - BOTH EYES Routine 05/09/2017 1:39 PM EST Visual field defects AUTOMATED VISUAL FIELD - EXTENDED - OU- BOTH EYES Routine 05/09/2017 1:39 PM EST Visual disturbances documented in this encounter Results * FUNDUS PHOTOS - OU- BOTH EYES (05/09/2017 1:39 PM EST) Anatomical Region Laterality Modality Other Mauricio Fairchild MD OPHTHALMOLOGY SE RVICES ORDERABLES * OCT OPTIC [id number] EYES (05/09/2017 1:39 PM EST) Anatomical Region Laterality Modality Other Narrative 05/09/2017 1:39 PM EST Right Eye Quality was good. Findings include normal observations. Temporal thickness was normal. Superior thickness was normal. Nasal thickness was normal. Inferior thickness was normal. Left Eye Quality was good. Findings include normal observations. Temporal thickness was normal. Superior thickness was normal. Nasal thickness was normal. Inferior thickness was normal. Notes Normal RNFL OU Mauricio Fairchild MD OPHTHALMOLOGY SE RVICES ORDERABLES * AUTOMATED VISUAL FIELD - EXTENDED - OU- BOTH EYES (05/09/2017 1:39 PM EST) Anatomical Region Laterality Modality Other Narrative 05/09/2017 1:39 PM EST Bilateral superior arc - unreliable khan Mauricio Fairchild MD OPHTHALMOLOGY SE RVICES ORDERABLES documented in this encounter Visit Diagnoses Diagnosis Visual disturbances Unspecified visual disturbance Visual field defects Visual field defect, unspecified documented in this encounter Care Teams Glass Blower Relationship Specialty Start Date End Date Malu Sampson APRN PCP - General Family Medicine 08/28/16 09/03/17 documented as of this encounter
--- OUTSIDE RECORDS SUMMARY | 2024-01-23 00:34 | XMS_ITS | Encounter Summary ---
Author Organization [facility] [place] [address] Care Team Providers Care Final Armature Tester Name Role Phone Malu Sampson APRN Primary Care Provider [phone] Reason for Visit * Reason Comments Eye Pain Encounter Details Date Type Department Care Team (Late st Contact Info) Description 06/26/2017 10:00 AM EDT Office [place] [address] Mauricio Fairchild MD [facility] [place] [address] Visual disturbance Social History Tobacco Use Types Packs/Day Years [...] Progress Notes * Mauricio Greenwood MD - 06/26/2017 10:00 AM EDT Kallie Darling is here for ntermittent sharp pain in the left eye. This occurs with headaches that are sometimes left sided and sometimes generalized. She states that this pain has been going on for over a year. On examination today, Kallie Darling exhibited 20/25 vision in the right and 20/50 vision in the left. Anterior segment structures were normal, without any inflammation. Her fundus examination revealed optic nerves that are healthy and pink with normal retinal findings. This is likely referred pain from her headaches. Suggest she see her PCP, and obtain for pain management referral . No intraocular cause noted. documented in this encounter Plan of Treatment Upcoming Encounters Date Type Department Care Team (Late st Contact Info) Description 02/27/2024 2:45 PM EST TH Visit (TeleHealth) [place] [address] Lashae Lorenzo MD [facility] [place] [address] documented as of this encounter Visit Diagnoses Diagnosis Visual disturbance Unspecified visual disturbance documented in this encounter Care Teams Final Armature Tester Relationship Specialty Start Date End Date Malu Sampson APRN PCP - General Family Medicine 08/28/16 09/03/17 documented as of this encounter
--- OUTSIDE RECORDS SUMMARY | 2024-01-23 00:34 | XMS_ITS | Encounter Summary ---
Author Organization [place] [address] Care Team Providers Care Plastic Technician Name Role Phone Jennie Resendiz MD Primary Care Provider [phone] Reason for Visit * Reason Comments Follow-up Encounter Details Date Type Department Care Team (Late st Contact Info) Description 07/07/2014 3:00 PM EDT Follow-[place] [id number] CLINIC, Dorcas Benson, [facility] [place] [address] Cirrhosis of liver without ascites, unspecified hepatic [...] Sign Reading Time Taken Comments Blood Pressure 134/75 07/07/2014 2:48 PM EDT Pulse 71 07/07/2014 2:48 PM EDT Temperature - - Respiratory Rate - - Oxygen Saturation - - Inhaled Oxygen Concentration - - Weight 105.7 kg (233 lb) 07/07/2014 2:4 8 PM EDT Weighed with shoes. Height 165.1 cm (5' 5) 07/07/2014 2:48 PM EDT Body Mass Index 38.77 07/07/2014 2:48 PM EDT documented in this encounter Progress Notes * Eze Dorcas A, [employer] - 07/07/2014 3:07 PM EDT Subjective: Patient ID: Kallie Smart is a 53 y.o. female. HPI Problem List: 1. Cirrhosis, HARDEN/MONA A. Labs - see below B. Imaging - Abd Ultrasound 09/18/12 (see below) C. Liver Biopsy - 01/28/12 - severe steatohepatitis and cirrhosis D. Complications 1. Portal HTN - Grade 1 EV (08/21/12) A. 09/18/12 Coreg 6.25 mg BID B. 05/06/13 Increase Coreg 12.5 mg BID 2. Ascites - none to date 3. Hepatic Encephalopathy - none to date 4. UGIB - none to date 2. HARDEN 3. Alcohol Dependince 1. Continues to drink. Last ETOH 04/13/13 4. Class II Obesity 5. Pre-Diabetes 6. Dyslipidemia 7. SOCORRO 8. GERD 9. Constipation 10. Asthma 11. Depression 12. Right Sided LE pain 13. S/P Hysterectomy 1979 14. S/P left thumb surgery 1966 15. S/P left knee arthroscopy 2001 16. S/P cholecystectomy 2009 Preventative Health 1. HAV/HBV: (+)/(+) 2. Portal HTN - EGD 08/21/12 with Grade 1 EV. Coreg 6.25 mg BID initiated 09/18/12; increased Coreg 12.5 mg BID 05/06/13. No need to repeat EGD unless decompensates. 3. Colonoscopy - 08/21/12. Poor prep. Repeat 2013 4. HCC surveillance - Ultrasound 11/23/13, no liver masses. AFP pending 5. Pneumovax - administered 05/06/13 6. Influenza Vaccine - administered 05/06/13 Initial Visit 01/24/12: Ms. Smart is a 51 year old white female seen today at [facility] in consultation for hepatosplenomegaly on ultrasound and elevated liver enzymes. She had a viral hepatitis panel drawn which was negative. She has risk factors for alcoholic and non-alcoholic fatty liver disease. She admits that she used to drink 1-2 beers daily during week then up to 8 beers/day on weekend. She has not had any ETOH is 3 months, but admits that she is having cravings. Her risk factors for NAFLD include Class II obesity and hyperlipidemia. She presents today with complaints of diffuse abdominal pain, severe constipation and bloating. Shehas not had her screening colonoscopy. She is amenable to having this screening test. For her constipation she is using Miralax, 1 capful BID. She is having 1 small BM every other day but remains cons tantly bloated with significant abdominal discomfort. Interval History 09/18/12: Pt presents today in follow-up of cirrhosis. She tells me that she has been doing OK. Unfortunately she has gained weight since her last visit. She admits that she has been actively drinking. Her last alcohol consumption was 3 days ago, drinking so much she cannot remember how many she had. She continues to be severely constipated. She continues to struggle with depression and anxiety. She never resumed with therapy as discussed at there last visit. She experiences RUQ abdomina burning pain intermittently after eating spaghetti sauce. She describes this as liver pain. She denies fever, chills, sweats, abdominal pain, N, V, melena, hematochezia, confusion, pruritus. Interval History 10/20/12: Ms. Smart returns today in follow-up. She has been taking Coreg BID as directed. She is toleratingwell but does note some worsening daytime fatigue. She did not start Miralax as she could not afford it. She continues to struggle significantly with constipation. She did not try Zantac as she could not afford it. She continues to have burning abdominal pain intermittently. She admits that she continues to drink. She drank on 10/15/12, having 2 beers because other people were also drinking. She started seeing a counselor in [facility] who is going to help her with her alcohol dependence. She had one episode of chest pain on 10/15/12 accompanied by dyspnea and left arm numbness. She did not go to ER. She experienced this during argument with her daughter and dismissed symptoms as stress/anxiety. Interval History 05/06/13: Ms. Smart returns today in follow-up of HARDEN/MONA cirrhosis. She has been taking Coreg BID as directed. Her energy level is better. She tells me that her constipation is poorly controlled. The Miralax did not work. She is taking 2 stool softeners daily + 2 other Rx laxatives and still having difficulty. She feels that she is losing weight although, by our scales her weight remains stable. She had been doing well with abstaining from alcohol until New Year's when she had 2 beers. Denies s/s UGIB, ascites, HE. Outside Labs: 10/23/11 11/26/11 12/27/11 Hgb 13.3 13.4 Plt 164 152 156 T. Bili 0.54 0.36 0.36 AP 180 187 206 AST 133 116 80 ALT 86 84 63 Albumin 4.3 4.4 4.2 T. Chol 253 HDL 19 LDL 161 TG 355 Hep C Ab Negative Hep A Ab IgM Negative Hep B sAg Negative Hep B c Ab Negative Outside Abdominal CT Scan 12/13/11: The liver is enlarged. There is diffuse increased echogenicity consistent with hepatic steatosis. No evidence of a focal hepatic mass is present. The pt is s/p cholecystectomy. The common duct is within normal limits. The pancreatic body and tail were poorly visualized due to patient body habitus. The remainder of the pancreas is unremarkable. The spleen is enlarged at 16 cm. No splenic lesions are identified. There is 4 mm echogenic shadowing structure in the right kidney most suggestive of a non-obstructing renal calculus. The kidneys are otherwise unremarkable. No free fluid is seen in theabdomen. Outside Abdominal CT Scan 10/26/09: There is diffuse geographic fatty infiltration of the liver with a large focal area of sparing seenin the anterior segment of the right lobe of the liver. No hepatic masses are seen. The GB is negative. No biliary ductal dilatation is present. The spleen, adrenal glands and kidneys are unremarkable. There are mildly dilated vessels along the less curvature of the stomach which appear unchanged compared to the exam from 2005. No abdominal mass, adenopathy, or ascites is appreciated. Outside Abdominal Ultrasound 10/24/09: Probable mild hepatomegaly and borderline dilatation of the common duct. Outside Abdominal Ultrasound 09/19/2005: There is slight dilatation of the mid portion of the common duct. There is no evidence of cholelithiasis. The pancreas is suboptimally visualized and further assessment with and abdominal CT is suggested. Outside Abdominal Ultrasound 11/22/03: Fatty liver, question of mild gallbladder wall thickening vs inadequate gallbladder distention. Outside Abdominal Ultrasound 01/07/2003: Geographically heterogeneous appearance to liver without focal mass effect. The findings are most suspicious for patchy fatty infiltration of the liver. Colonoscopy 02/17/12: Findings: The perianal and digital rectal examinations were normal. Internal hemorrhoids were found during retroflexion and were medium-sized. A large amount of liquid and solid stool was found in the entire colon, particularly in the right colon, precluding visualization. The scope was advanced to the ascending colon to what appeared to be the cecum but given the solid contents, this was unable to adequately be visualized and the typical landmarks were not seen. Lavage of the area was performed using copious amounts of water with suction, resulting in incomplete clearance with continued limited visualization primarily in the right colon. There is no endoscopic evidence of polyps in the entire colon although the exam was very limited secondary to the poor preparation. Impression: - Preparation of the colon was poor. - Internal hemorrhoids. - No polyps but limited exam given colon prep. Recommendation: - Discharge patient to home. - Repeat colonoscopy in 6 months to one year for screening purposes. - Will need 2 day preparation. Liver Biopsy 01/28/12: ---Pathologic Diagnosis--- Liver, percutaneous biopsy: Severe steatohepatitis and cirrhosis (see Note). NOTE: The biopsy shows severe steatosis, prominent hepatocyte ballooning and prominent inflammatory component. Trichrome stain highlights prominent pericellular and bridging fibrosis, consistent with cirrhosis. Iron stain is negative. Labs 01/24/12: Hgb 12.3 PLT 145 INR 1.1 T. Bili 0.3 AP 160 AST 79 ALT 52 Ferritin 428 Iron 72 TIBC 274 Iron Sat 26 IgG 678 IgA 94 IgM 99 HgA1c 5.7 AFP 2 TSH 4.23 A1AT negative AMA negative SMA negative RUTHY positive 1:80 TTG IgA Ab negative Colonoscopy 08/21/12: Findings: The perianal and digital rectal examinations were normal. There was a copious amount of thick, liquid stool throughout the colon. Multiple attempts at lavage were unsuccessful due to retained solid stools that could not be aspirated. The exam was aborted - likely within the ascending colon - as landmarks could not be safely visualized. Only large >1cm protruding lesions in the left colon would have been able to be detected by this exam. Impression: - Preparation of the colon was poor. Recommendation: - Per guidelines, annual FIT hemoccult testing is an option for screening, giventhat she is average risk. Repeat colonoscopy within one year is reasonable. FOR THE NEXT EXAM, A TWO DAY PREP WITH CLEAR LIQUIDS AND TWO GALLONS OF GOLYTELY WILL BE NECESSARY FOR AN ADEQUATE EXAM. - Follow-up with Dr. Resendiz to discuss options for colon cancer screening. EGD 08/21/12: Findings: The Z-line was regular and was found 41 cm from the incisors. Diminutive grade I varices were found in the lower third of the esophagus. These had no stigmata of recent bleeding. The varices had no red elen signs.Mild portal hypertensive gastropathy was found in the stomach. The examined duodenum was normal. Impression: - Z-line regular, 41 cm from the incisors. - Non- bleeding grade I esophageal varices. - Portal hypertensive gastropathy. - Normal examined duodenum. Recommendation: Follow-up in clinic with Ms. Woodard. Abdominal Ultrasound 11/23/13: Impression Ultrasound - Abdomen Complete - Summary 1. Hepatomegaly with increase echogencity of the liver consistent with fatty infiltration and minimal coarsening that may be due to superimposed fibrosis.No discrete liver mass. 2. portal HTN with splenomegaly, splenic varices and question recanalized umbilical vein. No ascites Ultrasound - Vascular evaluation - Summary Patent PV, hepatic artery and hepatic veins with normal directional flow. There is biphasic hepatic vein waveform that may be due to liver cirrhosis. Waveforms otherwise normal Labs 11/23/13: Results for KALLIE SMART ( ) as of 11/23/2013 15:28 Ref. Range 11/23/2013 14:14 WBC Latest Range: 4.0-10.0 x10(3)/mcL 6.3 RBC Latest Range: 3.93-5.22 x10(6)/mcL 4.42 Hemoglobin Latest Range: 11.2-15.7 gm/dL 14.1 Hematocrit Latest Range: 34.0-45.0 % 42.2 MCV Latest Range: 79.0-94.0 fL 95.5 (H) MCH Latest Range: 26.6-32.2 pg 31.9 MCHC Latest Range: 32.0-36.5 gm/dL 33.4 RDWSD Latest Range: 35.0-46.0 fL 47.1 (H) RDWCV Latest Range: 10.9-14.4 % 13.5 Platelets Latest Range: 145-370 x10(3)/mcL 141 (L) MPV Latest Range: 9.0-12.0 fL 11.0 Neutr Abs (ANC) Latest Range: 1.50-6.30 x10(3)/mcL 3.04 Neutrophils % Latest Range: 34.0-71.0 % 48.0 Immature Gran % Latest Range: 0.00-0.66 % 0.30 Lymphocytes % Latest Range: 19.0-53.0 % 40.8 Monocytes % Latest Range: 4.0-13.0 % 7.0 Eosinophils % Latest Range: 0.0-7.0 % 3.6 Basophils % Latest Range: 0.0-2.0 % 0.3 Larissa Gran Abs Latest Range: 0.00-0.05 x10(3)/mcL 0.02 Lymphocytes Abs Latest Range: 1.0-3.6 x10(3)/mcL 2.6 Monocyte Abs Latest Range: 0.2-1.0 x10(3)/mcL 0.4 Eosinophils Abs Latest Range: 0.0-0.5 x10(3)/mcL 0.2 Basophils Abs Latest Range: 0.0-0.2 x10(3)/mcL 0.0 PT Latest Range: 12.5-15.5 sec 15.1 INR Latest Range: 0.9-1.1 1.1 Sodium Latest Range: 135-145 mmol/L 138 Potassium Latest Range: 3.5-5.0 mmol/L 4.3 Chloride Latest Range: 98-107 mmol/L 101 CO2 Latest Range: 22-31 mmol/L 24 Anion Gap Latest Range: 5-15 mmol/L 13 BUN Latest Range: 8-18 mg/dL 8 Creatinine Latest Range: 0.70-1.20 mg/dL 0.73 Estimated GFR Latest Range: >=60 >60 Glucose Lvl Latest Range: 60-199 mg/dL 100 Calcium Latest Range: 8.5-10.5 mg/dL 11.4 (H) Total Protein Latest Range: 6.4-8.3 gm/dL 7.5 Albumin Latest Range: 3.2-5.2 gm/dL 4.7 Total Bilirubin Latest Range: 0.2-1.3 mg/dL 0.4 Bili, Direct Latest Range: 0.0-0.3 mg/dL 0.1 Alk Phos Latest Range: 40-104 unit/L 174 (H) AST Latest Range: 0-30 unit/L 69 (H) ALT Latest Range: 0-30 unit/L 55 (H) Review of Systems Constitutional: Negative for fever, chills, diaphoresis, fatigue and unexpected weight change. HENT: Positive for trouble swallowing (pill dysphagia. food goes down hard because not chewing properly due to missing lower teeth). Respiratory: Negative for cough, choking, shortness of breath and wheezing. Asthma with coughing and SOB - inhalers help Cardiovascular: Positive for leg swelling (Intermittently when stands for prolonged periods of time). Negative for chest pain (chest pain with anxiety) and palpitations. Gastrointestinal: Positive for abdominal pain (diffuse discomfort due constipatoin), constipation and abdominal distention (from constipation). Negative for nausea, vomiting, diarrhea and blood in stool. Heartburn, well controlled with Nexium. BM - 3-4 small hard BM daily if stays home. When anxious or has to leave house develops severe constipation (no BM in 3 days) Tried Miralax. Taking 2 stool softeners and 2 other prescription laxatives Genitourinary: Positive for hematuria (Intermittently after drinking alcohol. She no-showed her f/uappt with urology). Musculoskeletal: Positive for myalgias (calves cramp at night), back pain and arthralgias. Skin: Negative for color change and rash. Denies pruritus Neurological: Positive for light-headedness (intermittently when bends over then stands up). Negative for dizziness, tremors, syncope and weakness. Hematological: Does not bruise/bleed easily. Psychiatric/Behavioral: Positive for dysphoric mood (Poorly controlled). Negative for suicidal ideas, confusion and sleep disturbance. The patient is nervous/anxious. Objective: Physical Exam Constitutional: She is oriented to person, place, and time. She appears well- developed and well-nourished. Body mass index is 40.85 kg/(m^2). HENT: Head: Normocephalic and atraumatic. Eyes: Pupils are equal, round, and reactive to light. No scleral icterus. Neck: Normal range of motion. Neck supple. No thyromegaly present. Cardiovascular: Normal rate and regular rhythm. Murmur (grade 2/6 systolic murmur) heard. Pulmonary/Chest: Effort normal and breath sounds normal. She has no wheezes. She has no rales. Abdominal: Soft. She exhibits distension. Bowel sounds are decreased. There is hepatosplenomegaly. There is tenderness in the right upper quadrant. There is no rebound and no guarding. Exam limited due to body habitus Prominent abdominal vasculature Musculoskeletal: She exhibits no edema. Lymphadenopathy: She has no cervical adenopathy. Neurological: She is alert and oriented to person, place, and time. No asterixis Skin: Skin is warm and dry. There is erythema (Palmar erythema and telangectasia on chest). Psychiatric: She has a normal mood and affect. Her behavior is normal. Assessment and Plan: Ms. Smart is a pleasant 53 year old white female seen today in follow-up for cirrhosis, likely Alcohol and HARDEN related. 1. Cirrhosis, Alcohol and HARDEN related. MELD 7. She has risk factors for MONA and HARDEN. She continues to drink on most weekends (2 beers Friday, 1 Twisted Tea, 2 beers on Friday). Her risk factors forNASH include Class II obesity, hyperlipidemia, DM2 and hypothyroid. We had a long discussion about her drinking and the potential issues if she decompensates and needs a liver transplant. She assuresme that she will never agree to a liver transplant and that she has reduced her alcohol use significantly and in time maybe she will quit altogether but she is not willing to do this now. She will continue to need bi-annual HCC surveillance with labs and imaging. She will be due again in December 2014 with ultrasound and labs. Tylenol is safe to take as needed up to 2 grams/24 hrs in setting of cirrhosis but should not be mixed with ETOH. 2. Alcohol abuse. Not ready to quit altogether. 3. Obesity, Class II. She has been unsuccessful at losing weight; ultrasound reveals worsening hepatomegaly. I have recommended diet and daily physical activity (walking 20-30 min daily). Avoid soda and juice. 4. Portal Hypertension with Grade I EV. Has been taking coreg. 5. HE. Continue Lactulose 30 cc once daily with goal of 2-4 BM daily. This also helps her constipation. New prescription given today. She will return to clinic [facility] with labs and an ultrasound. documented in this encounter Plan of Treatment Upcoming Encounters Date Type Department Care Team (Late st Contact Info) Description 02/27/2024 2:45 PM EST TH Visit (TeleHealth) [place] [address] Lashae Lorenzo MD [facility] [place] [address] documented as of this encounter Procedures Procedure Name Priority Date/Time Associated Diagnosis Comments HEMOGRAM Routine 07/07/2014 2:25 PM EDT Cirrhosis of liver without ascites, unspecified hepatic cirrhosis type DIFFERENTIAL, AUTOMATED Routine 07/07/2014 2:25 PM EDT Cirrhosis of liver without ascites, unspecified hepatic cirrhosis type AFP TUMOR MARKER Routine 07/07/2014 2:25 PM EDT Cirrhosis of liver without ascites, unspecified hepatic cirrhosis type PROTHROMBIN TIME Routine 07/07/2014 2:25 PM EDT Cirrhosis of liver without ascites, unspecified hepatic cirrhosis type CBC (WITH DIFF) Routine 07/07/2014 2:25 PM EDT Cirrhosis of liver without ascites, unspecified hepatic cirrhosis type COMPREHENSIVE METABOLIC PANEL Routine 07/07/2014 2:25 PM EDT Cirrhosis of liver without ascites, unspecified hepatic cirrhosis type documented in this encounter Results * AFP tumor marker (01/11/2015 2:07 PM EDT) Alpha Fetoprotein 4.0 <=8.3 ng/mL [facility] Blood specimen (specimen) 01/11/2015 2:07 PM EDT 01/11/2015 2:13 PM EDT Narrative Resulting Agency Comment Spec In Lab Zeferino Paul MD CHEMISTRY ORDERABLE S Performing Organization Address [facility] de Phone Number LILLIE HUIZRA * (ABNORMAL) Prothrombin Time (01/11/2015 2:07 PM EDT) Prothrombin Time 15.9(H) 12.0 - 15.0 sec CERNER MILLENNIUM Comment: Transfusion Committee Guidelines: INR less than 2.0, PTT less than OR equal to 43.5 seconds, or Fibrinogen greater than or equal to 100 mg/dl indicate adequate procoagulant activity for hemostasis in patients without underlying bleeding disorders. International Normalization Ratio 1.2(H) 0.9 - 1.1 CERNER MILLENNIUM Blood specimen (specimen) 01/11/2015 2:07 PM EDT 01/11/2015 2:13 PM EDT Narrative Resulting Agency Comment Spec In Lab Zeferino Paul MD HEMATOLOGY ORDERABL ES Performing Organization Address [facility] Phone Number LILLIE HUIZAR * (ABNORMAL) Comprehensive metabolic panel (non-fasting) (01/11/2015 2:07 PM EDT) Glucose 115 65 - 199 mg/dL CERNER MILLENNIUM Comment:Diabetes: >=200 mg/d L plus symptoms Blood Urea Nitrogen 7(L) 8 - 18 mg/dL CERNER MILLENNIUM Creatinine 0.72 0.70 - 1.20 mg/dL CERNER MILLENNIUM Comment: Please note that the pediatric reference intervals supplied above were not validated at [facility]. Results from pediatric patients should be interpreted in conjunction to the patient's age, height and muscle mass. Sodium 139 135 - 145 mmol/L CERNER MILLENNIUM Potassium 4.3 3.5 - 5.0 mmol/L CERNER MILLENNIUM Comment: Please note: ??Patients with WBC >100,000 may have falsely elevated Potassium levels. ??For accurate Potassium quantification in these patients send serum separator tube (gold top) for subsequent determinations. ??Contact the Clinical Chemistry Laboratory if there are any questions. Chloride 100 98 - 107 mmol/L CERNER MILLENNIUM Carbon Dioxide 24 22 - 31 mmol/L CERNER MILLENNIUM Anion Gap 15 5 - 15 mmol/L CERNER MILLENNIUM Calcium 11.1(H) 8.5 - 10.5 mg/dL CERNER MILLENNIUM Protein, Total 7.2 6.1 - 8.0 gm/dL CERNER MILLENNIUM Albumin 4.5 3.2 - 5.2 gm/dL CERNER MILLENNIUM Aspartate Aminotransferase 64(H) 0 - 30 unit/L CERNER MILLENNIUM Alanine Aminotransferase 40(H) 0 - 30 unit/L CERNER MILLENNIUM Alkaline Phosphatase 173(H) 40 - 104 unit/L CERNER MILLENNIUM Bilirubin, Total 0.6 0.2 - 1.3 mg/dL CERNER MILLENNIUM Bilirubin, Direct 0.1 0.0 - 0.3 mg/dL CERNER MILLENNIUM Est Glomerular Filtration Rate >60 >=60 CERNER MILLENNIUM Comment: This estimated GFR (eGFR) value was calculated using the MDRD equation which has been validated on patients between the ages of 18 and 70. The MDRD should not be used to assess kidney function in patients < 18 years of age or in patients with extremes of body mass, or in patients with acute kidney failure. This value should be multiplied by 1.2 for patients. For further information please copy and paste the following links into your internet browser. [email or web address] [email or web address] Blood specimen (specimen) 01/11/2015 2:07 PM EDT 01/11/2015 2:13 PM EDT Narrative Resulting Agency Comment Spec In Lab Zeferino Paul MD CHEMISTRY ORDERABLE S CERRYLIE MIJARESIUM * US abdomen complete (01/11/2015 1:44 PM EDT) Anatomical Region Laterality Modality Abdomen, Vascular Ultrasound 01/11/2015 1:44 PM EDT Narrative 01/11/2015 1:52 PM EDT Abdominal ?(Signed Final 01/11/2015 01:52 pm) Patient Info ID #: ? [id number] ?: ??[birth year] (54 yrs) Name: ? 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 Visit Date: 01/11/2015 01:41 pm Performed By Performed By: ? Precious Oliveros RDMS Attending: ?Isiah STOCKTON, Cornelius Harris Referred By: ?ZEFERINO PAUL MD Service(s) Provided ??[facility] - Abdominal Complete Survey - [id number] ? [id number] Indications ??cirrhosis, screen for hcc Comparison US Abdomen of 07/07/14 ----- Liver ----- Right Lobe Length: ?? 23.33 ??cm Echogenicity/Echotexture: ?? Coarsely echogenic ??parenchyma ? with capsular nodularity c/w ? cirrhosis. Comment: ?Hepatomegaly Gallbladder Comment: ?Cholecystectomy Biliary Tract Intrahepatic Ducts: ?? Normal Extrahepatic Ducts: ?? Normal Common Duct Size: ? 6.3 ? mm -------- Pancreas -------- Head: ? Normal Tail: ? Poorly visualized due to overlying bowel Body: ? Normal ------ Spleen ------ Size (cm) ?L: ??20.27 Comment: ?Splenomegaly- severe Right Kidney Size (cm) ?L: ??11.35 Cortical Thickness: ?Normal Cortical Echogenicity: ?? Normal Hydronephrosis: ?No sonographic evidence Left Kidney Size (cm) ?L: ??13.36 Cortical Thickness: ?Normal Cortical Echogenicity: ?? Normal Hydronephrosis: ?No sonographic evidence ----- Aorta ----- Measurements (cm): Proximal ? AP: ?? 2.33 Comment: ?Normal in caliber where visualized --- IVC --- Normal in caliber where visualized Fluid Collections No ascites seen. Impression Ultrasound - Abdomen Complete - Summary Coarsely echogenic parenchyma with capsular nodularity c/w cirrhosis. Splenomegaly. S/P cholecystectomy. Normal appearance to the head of the pancreas, with multiple midline collateral vessels. I ??viewed the images and agree with the above interpretation. ?Cornelius Joyce MD Electronically Signed Final Report ?? 01/11/2015 01:52 pm Procedure Note Cornelius Joyce MD - 01/11/2015 Abdominal (Signed Final 01/11/2015 01:52 pm) Patient Info ID #: [id number] : [birth year] (54 yrs) Name: KALLIE SMART Visit Date: 01/11/2015 01:41 pm Performed By Performed By: Precious Oliveros RDMS Attending: Cornelius Joyce MD Referred By: ZEFERINO PAUL MD Service(s) Provided [facility] - Abdominal Complete Survey - [id number] Indications cirrhosis, screen for hcc Comparison US Abdomen of 07/07/14 ----- Liver ----- Right Lobe Length: 23.33 cm Echogenicity/Echotexture: Coarsely echogenic parenchyma with capsular nodularity c/w cirrhosis. Comment: Hepatomegaly Gallbladder Comment: Cholecystectomy Biliary Tract Intrahepatic Ducts: Normal Extrahepatic Ducts: Normal Common Duct Size: 6.3 mm -------- Pancreas -------- Head: Normal Tail: Poorly visualized due to overlying bowel Body: Normal ------ Spleen ------ Size (cm) L: 20.27 Comment: Splenomegaly- severe Right Kidney Size (cm) L: 11.35 Cortical Thickness: Normal Cortical Echogenicity: Normal Hydronephrosis: No sonographic evidence Left Kidney Size (cm) L: 13.36 Cortical Thickness: Normal Cortical Echogenicity: Normal Hydronephrosis: No sonographic evidence ----- Aorta ----- Measurements (cm): Proximal AP: 2.33 Comment: Normal in caliber where visualized --- IVC --- Normal in caliber where visualized Fluid Collections No ascites seen. Impression Ultrasound - Abdomen Complete - Summary Coarsely echogenic parenchyma with capsular nodularity c/w cirrhosis. Splenomegaly. S/P cholecystectomy. Normal appearance to the head of the pancreas, with multiple midline collateral vessels. I viewed the images and agree with the above interpretation. Cornelius Joyce MD Electronically Signed Final Report 01/11/2015 01:52 pm Zeferino Paul MD IMG US GEN ORDERABL ES * Differential, Automated (07/07/2014 2:25 PM EDT) Neutrophil % 51.5 % [facility] Neutrophil Absolute 3.07 1.50 - 6.30 x10(3)/mcL [facility] MILLENNIUM Lymph % 39.0 % [facility] MILLENNIUM Lymphocytes Abs 2.3 1.0 - 3.6 x10(3)/mcL [facility] MILLENNIUM Monocyte % 6.6 % [facility] MILLENNIUM Monocyte Abs 0.4 0.2 - 1.0 x10(3)/mcL [facility] MILLENNIUM Eos % 2.4 % [facility] MILLENNIUM Eosinophils Abs 0.1 0.0 - 0.5 x10(3)/mcL [facility] MILLENNIUM Basophil % 0.3 % [facility] MILLENNIUM Baso Absolute 0.0 0.0 - 0.2 x10(3)/mcL [facility] MILLENNIUM Immature Gran % 0.20 % [facility] MILLENNI[facility] Comment: Immature granulocytes(IG's)percentage and absolute count will include metamyelocytes, myelocytes, and promyelocytes. Blood smears from CBCs yielding IG's will be scanned manually for concordance. If this scan disagrees with the automated IG or if promyelocytes are noted, a manual differential will be performed. Immature Gran Absolute 0.01 0.00 - 0.05 x10(3)/mcL [facility] MILLENNIUM Blood specimen (specimen) 07/07/2014 2:25 PM EDT 07/07/2014 2:34 PM EDT Narrative Resulting Agency Comment Spec In Lab Zeferino Paul MD HEMATOLOGY ORDERABL ES Performing Organization Address [facility] Co de Phone Number CERNER MILLENNIUM * (ABNORMAL) Hemogram (07/07/2014 2:25 PM EDT) White Blood Cell 6.0 4.0 - 10.0 x10(3)/mc L [facility] MILLENNIUM Red Blood Cell 4.40 3.93 - 5.22 x10(6)/mc L [facility] MILLENNIUM Hemoglobin 14.0 11.2 - 15.7 gm/dL [facility] MILLENNIUM Hematocrit 41.6 34.0 - 45.0 % CERN[facility] MILLENNIUM Mean Cell Volume 94.5(H) 79.0 - 94.0 fL [facility] MILLENNIUM Mean Cell Hemoglobin 31.8 26.6 - 32.2 pg [facility] MILLENNIUM Mean Cell Hemoglobin Concentration 33.7 32.0 - 36.5 gm/dL [facility] MILLENNIUM Platelet 109(L) 145 - 370 x10(3)/mc L [facility] MILLENNIUM RDW Standard Deviation 47.5(H) 35.0 - 46.0 fL [facility] MILLENNIUM RDW coefficient of variation 13.9 10.9 - 14.4 % [facility]ERN[facility] MILLENNIUM Mean Platelet Volume 10.0 9.0 - 12.0 fL [facility] MILLENNIUM Blood specimen (specimen) 07/07/2014 2:25 PM EDT 07/07/2014 2:34 PM EDT Narrative Resulting Agency Comment Spec In Lab Zeferino Paul MD HEMATOLOGY ORDERABL ES Performing Organization Address [facility]/ZIP Co de Phone Number CERNER MILLENNIUM * Prothrombin Time (07/07/2014 2:25 PM EDT) Prothrombin Time 15.3 12.5 - 15.5 sec [facility] Comment: Transfusion Committee Guidelines: INR less than 2.0, PTT less than OR equal to 43.5 seconds, or Fibrinogen greater than or equal to 100 mg/dl indicate adequate procoagulant activity for hemostasis in patients without underlying bleeding disorders. International Normalization Ratio 1.1 0.9 - 1.1 [facility] Blood specimen (specimen) 07/07/2014 2:25 PM EDT 07/07/2014 2:34 PM EDT Narrative Resulting Agency Comment Spec In Lab Zeferino Paul MD HEMATOLOGY ORDERABL ES Performing Organization Address [facility] Phone Number [facility] * AFP tumor marker (07/07/2014 2:25 PM EDT) Pathologist [facility] Alpha Fetoprotein 5.1 <=8.3 ng/mL [facility] Blood specimen (specimen) 07/07/2014 2:25 PM EDT 07/07/2014 2:34 PM EDT Narrative Resulting Agency Comment Spec In Lab Zeferino Paul MD CHEMISTRY ORDERABLE S Performing Organization Address [facility] Phone Number [facility] * (ABNORMAL) Comprehensive metabolic panel (non-fasting) (07/07/2014 2:25 PM EDT) Pathologist [facility] Glucose 96 60 - 199 mg/dL [facility] Comment:Diabetes: >=200 mg/d L plus symptoms Blood Urea Nitrogen 11 8 - 18 mg/dL [facility]UM Creatinine 0.77 0.70 - 1.20 mg/dL [facility] Comment: Please note that the pediatric reference intervals supplied above were not validated at [facility]. Results from pediatric patients should be interpreted in conjunction to the patient's age, height and muscle mass. Sodium 136 135 - 145 mmol/L [facility] Potassium 4.1 3.5 - 5.0 mmol/L [facility] Comment: Please note: ??Patients with WBC >100,000 may have falsely elevated Potassium levels. ??For accurate Potassium quantification in these patients send serum separator tube (gold top) for subsequent determinations. ??Contact the Clinical Chemistry Laboratory if there are any questions. Chloride 97(L) 98 - 107 mmol/L [facility]ILL[facility]NI[facility] Carbon Dioxide 25 22 - 31 mmol/L [facility] Anion Gap 14 5 - 15 mmol/L [facility] Calcium 11.0(H) 8.5 - 10.5 mg/dL [facility] Protein, Total 7.4 6.1 - 8.0 gm/dL [facility] Albumin 4.9 3.2 - 5.2 gm/dL [facility] Aspartate Aminotransferase 77(H) 0 - 30 unit/L [facility] Alanine Aminotransferase 46(H) 0 - 30 unit/L [facility]ILL[facility] Alkaline Phosphatase 161(H) 40 - 104 unit/L [facility]ILL[facility] Bilirubin, Total 0.6 0.2 - 1.3 mg/dL [facility] Bilirubin, Direct 0.2 0.0 - 0.3 mg/dL [facility] Est Glomerular Filtration Rate >60 >=60 [facility] Comment: This estimated GFR (eGFR) value was calculated using the MDRD equation which has been validated on patients between the ages of 18 and 70. The MDRD should not be used to assess kidney function in patients < 18 years of age or in patients with extremes of body mass, or in patients with acute kidney failure. This value should be multiplied by 1.2 for patients. For further information please copy and paste the following links into your internet browser. http://VANCL/DHnkdep [email or web address]://VANCL/DHMCnkf Blood specimen (specimen) 07/07/2014 2:25 PM EDT 07/07/2014 2:34 PM EDT Narrative Resulting Agency Comment Spec In Lab Zeferino Paul MD CHEMISTRY ORDERABLE S [facility]NIUM documented in this encounter Visit Diagnoses Diagnosis Cirrhosis of liver without ascites, unspecified hepatic cirrhosis type Cirrhosis of liver without ascites, unspecified hepatic cirrhosis type documented in this encounter Care Teams Plastic Technician Relationship Specialty Start Date End Date Jennie Resendiz MD [address] [place] [address] PCP - General 03/06/10 08/27/16 documented as of this encounter
--- OUTSIDE RECORDS SUMMARY | 2024-01-23 00:34 | XMS_ITS | Encounter Summary ---
[place] [address] Care Team Providers Care Scale Shooter Name Role Phone Jennie Resendiz MD Primary Care Provider [phone] Encounter Details Date Type Department Care Team (Late st Contact Info) Description 03/24/2014 [place] [address] Shad Garcia MD [address] [place] [address] Renal stones Social History Tobacco Use Types Packs/Day Years [...] EST TH Visit (TeleHealth) [place] [address] Lashae Lorenzo MD [facility] [address] documented as of this encounter Visit Diagnoses Diagnosis Renal stones Calculus of kidney documented in this encounter Care Teams Scale Shooter Relationship Specialty Start Date End Date Jennie Resendiz MD [address] [place] [address] PCP - General 03/06/10 08/27/16 documented as of this encounter
--- OUTSIDE RECORDS SUMMARY | 2024-01-23 00:34 | XMS_ITS | Encounter Summary ---
Author Organization [facility] [place] [address] Care Team Providers Care Certified Nursing Assistant Instructor Name Role Phone Malu Sampson APRN Primary Care Provider [phone] Encounter Details Date Type Department Care Team (Late st Contact Info) Description 10/21/2016 2:30 PM EDT - 10/21/2016 3:00 PM EDT Surgery [place] [id number] Matthew Garcia MD [facility] [place] [address] EGD, UPPER GI ENDOSCOPY (WRVU 2.09) Social History Tobacco Use Types Packs/Day Years [...] Sign Reading Time Taken Comments Blood Pressure 115/69 10/21/2016 3:00 PM EDT Pulse 67 10/21/2016 2:49 PM EDT Temperature - - Respiratory Rate 16 10/21/2016 2:49 PM EDT Oxygen Saturation 93% 10/21/2016 3:00 PM EDT Inhaled Oxygen Concentration - - Weight 83.5 kg (184 lb) 10/21/2016 2:00 PM EDT Height 165.1 cm (5' 5) 10/21/2016 2:00 PM EDT Body Mass Index 30.62 10/21/2016 2:00 PM EDT documented in this encounter Discharge Instructions * Discharge Instructions* Prerna Titus, BRY - 10/21/2016 2:51 PM EDT UPPER GI ENDOSCOPY with biopsies WHAT TO EXPECT AFTER THE PROCEDURE After the test you may feel a little more gassy or bloated than usual, this is normal. ACTIVITY Because of the sedation that you received Your judgement and reaction time are affected ?? Go home and rest quietly for the remainder of the day. You may resume your normal activities tomorrow. ?? Change from one position to the next slowly. You may lose your balance unexpectedly Be careful on stairs, as you may be unsteady on your feet. FOR THE NEXT 24 HRS ?? DO NOT DRIVE OR OPERATE ANY MACHINERY ?? DO NOT DRINK ALCOHOLIC BEVERAGES ?? DO NOT SIGN LEGAL DOCUMENTS ?? If you are a smoker: DO NOT SMOKE WHILE YOU ARE ALONE Diet ?? Start by eating small portions of foods that ordinarily will not upset your stomach. Be gentle with what you choose to start with. ?? Drink plenty of fluids ( unless otherwise told not to) Medications You may have a mild sore throat. Ice chips, popsicles, over the counter throat lozenges or spray may help numb your throat. This procedure should not cause a fever. IV SITE-- slight redness or tenderness is normal, you can use warm compresses if you get concerned.If the tenderness +/or redness increases or foul drainage and a red streak occurs, please contact your PCP immediately. WHEN SHOULD YOU CALL FOR HELP? Call 911 anytime you think that you need emergency care. For example, call if: You passed out (lost consciousness). You cough up blood. You vomit blood or what looks like coffee grounds. You pass maroon or very bloody stools. Call your healthcare provider or seek immediate medical attention if: You have trouble swallowing. You have belly pain. Your stools are black or tarlike or have streaks of blood. You are sick to your stomach or cannot keep fluids down. Watch closely for changes in your health, and be sure to contact your doctor IF Your throat still hurts after a day or two You do not get better as expected. Friday-Friday Same Day Endo [phone]-8p Otherwise contact [phone] and ask to speak to the architectural drafter industrial relations representative Follow-up care is a oconnell part of your treatment and safety. Be sure to make and go to all appointments, and call your doctor if you are having problems. Instructions have been reviewed and patient expresses understanding documented in this encounter Medications at Time of Discharge Medication Sig Dispensed Refills Start Date End Date cyanocobalamin 1,000 mcg Tablet 0 08/25/2016 01/16/2023 hydrOXYzine (ATARAX) 25 mg Tablet Take 25 mg by mouth 3 times daily as needed for Itching. 09/04/2017 meclizine (ANTIVERT) 12.5 mg Tablet Take 12.5 mg by mouth 3 times daily as needed. 09/04/2017 carvedilol (COREG) 6.25 mg TabletIndications:Alco holic cirrhosis of liver without ascites Take 1 tablet by mouth 2 times daily (with meals). 180 tablet 3 03/20/2015 05/30/2022 ranitidine (ZANTAC) 300 mg Tablet Take 300 mg by mouth nightly. 09/04/2017 omeprazole (PRILOSEC) 20 mg Capsule, Delayed Release(E.C.) Take 20 mg by mouth daily. 06/26/2017 levothyroxine (SYNTHROID) 50 mcg Tablet Take 50 mcg by mouth daily. 01/16/2023 loratadine (CLARITIN) 10 mg Tablet Take 10 mg by mouth daily. 09/04/2017 citalopram (CELEXA) 20 mg Tablet Take 20 mg by mouth daily. 10/16/2017 pravastatin (PRAVACHOL) 80 mg Tablet Take 80 mg by mouth every morning. 09/04/2017 lactulose (CHRONULAC) 20 gram/30 mL Solution Take 30 mLs by mouth 2 times daily. 1800 mL 11 07/07/2014 09/04/2017 albuterol (PROVENTIL HFA;VENTOLIN HFA) 90 mcg/actuation HFA Aerosol Inhaler Inhale 2 puffs into the lungs every 4 hours as needed. Use with spacer 09/04/2017 risperidone (RISPERDAL) 1 mg tablet Take 1 mg by mouth 2 times daily. Reported on 09/05/2016 10/17/2010 05/05/2017 tiotropium (SPIRIVA) 18 mcg inhalation capsule Inhale 18 mcg into the lungs daily. 09/04/2017 gabapentin (NEURONTIN) 300 mg capsule Take 300 mg by mouth 2 times daily. 07/30/2010 10/16/2017 documented as of this encounter H&P Notes * Matthew Garcia MD - 10/21/2016 2:08 PM EDT Gastroenterology and Hepatology Pre-Procedure History and Physical Exam Procedure: EGD: Indication: varices, dyspepsia and dysphagia Patient Active Problem List Diagnosis Code ??? Right foot pain M79.671 ??? Neck pain M54.2 ??? Left elbow pain M25.522 ??? Asthma J45.909 ??? Chronic low back pain M54.5, G89.29 ??? Restless leg syndrome G25.81 ??? Acid reflux K21.9 ??? Learning disability F81.9 ??? Low back pain M54.5 ??? Primary hyperparathyroidism (PTH 165, Ca 11.0, +PUD but no kidney stone) E21.0 ??? H/O hysterectomy for benign disease at age 32 (menorrhagia/DUB) Z90.710 ? ? 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 Hyperparathyroidism E21.3 ??? Alcoholic cirrhosis of liver without ascites K70.30 EXAM: HEENT: Airway examined, oropharynx clear Mallampati Score: II (soft palate, uvula, fauces visible) LUNGS: Clear to auscultation HEART: Regular rate and rhythm, normal S1, S2 ABDOMEN: Normal bowel sounds, soft, non tender, non distended, A/P Proceed with the planned endoscopic procedure. ASA 2 - Patient with mild systemic disease with no functional limitations Sedation Plan: moderate (conscious sedation) Risks and benefits of the procedure explained to the patient. Consent signed. documented in this encounter Plan of Treatment Upcoming Encounters Date Type Department Care Team (Late st Contact Info) Description 02/27/2024 2:45 PM EST TH Visit (TeleHealth) [place] [address] Lashae Lorenzo MD [facility] [place] [address] documented as of this encounter Procedures Procedure Name Priority Date/Time Associated Diagnosis Comments SURGICAL PATHOLOGY REPORT Routine 10/21/2016 2:44 PM EDT SPECIMEN TO PATHOLOGY Routine 10/21/2016 2:44 PM EDT SPECIMEN TO PATHOLOGY Routine 10/21/2016 2:44 PM EDT UPPER GASTROINTESTINAL ENDOSCOPY,WITH BIOPSY SINGLE OR MULTIPLE (WRVU 2.39) 10/21/2016 2:17 PM EDT Dysphagia, unspecified type EGD, UPPER GI ENDOSCOPY (WRVU 2.09) 10/21/2016 2:17 PM EDT Dysphagia, unspecified type UPPER GI ENDOSCOPY Routine 10/21/2016 2: 15 PM EDT documented in this encounter Results * Surgical Pathology Report (10/21/2016 2:44 PM EDT) Final Diagnosis [id number] ?Location: 4T; EA09; A The signing pathologist has (i) examined the relevant preparation(s) for the specimen(s) and (ii) rendered or confirmed the diagnosis(es). . ?Surgical Pathology DIAGNOSIS A - Duodenum, ??biopsy: Duodenal mucosa within normal limits, including preserved villous architecture. B - Antrum, ??biopsy: Gastric antral gland mucosa with nonspecific reactive gastropathy. No H. pylori-like microorganism is seen. Electronically signed by: ??Solange Epstein MD Verified: ??10/22/2016 ?Pathologist CLINICAL INFORMATION Specimen Submitted: A - bx of dudoenum B - bx of antral gastritis Clinical History: Patient with dyspepsia Clinical Diagnosis: Same SPECIMEN PROCESSING A - Labeled/Fixative: BX of duodenum, formalin. Quantity/Size: Multiple, ranging from 0.1-0.4 cm. Tissue Description: ??Soft, pink tissues . Sections/Processi ng: (T2) B - Labeled/Fixative: BX of antral gastritis, formalin. Quantity/Size: Five, ranging from 0.1-0.5 cm. Tissue Description: ??Soft, pink tissues . Sections/Processi ng: (T1) ??sns 10/22/2016 4:11 PM EDT [facility] GI Biopsy 10/21/2016 2:44 PM EDT 10/21/2016 2:44 PM EDT GI Biopsy 10/21/2016 2:44 PM EDT 10/21/2016 2:44 PM EDT Matthew Garcia MD PATHOLOGY/CYTOLOGY O [place]ELWYN Performing Organization Address [facility] Co de Phone Number [facility] [place] [address] * Specimen to Pathology (surgical or derm) (10/21/2016 2:44 PM EDT) AP Specimen 10/21/2016 2:44 PM EDT 10/21/2016 2:44 PM EDT Narrative [facility] - 10/21/2016 2:44 PM EDT Specimen requisition ordered. ??Separate Pathology report to follow Matthew Garcia MD PATHOLOGY/CYTOLOGY O [place]EL[place]YN Performing Organization Address [facility] Co de Phone Number [facility] [place] [address] * Specimen to Pathology (surgical or derm) (10/21/2016 2:44 PM EDT) AP Specimen 10/21/2016 2:44 PM EDT 10/21/2016 2:44 PM EDT Narrative [facility] - 10/21/2016 2:44 PM EDT Specimen requisition ordered. ??Separate Pathology report to follow Matthew Garcia MD PATHOLOGY/CYTOLOGY O SELW[place] [facility] [place] [address] * UPPER GI ENDOSCOPY (10/21/2016 2:15 PM EDT) UPPER GI ENDOSCOPY [facility] Endoscopy Procedure Date: 10/21/2016 2:15 PM ? Patient Name: Kallie Darling ? Date of : 1960 ? Age: 56 ? Order #: [id number] ? Instrument Name: GIF-[id number] ? Procedure: ? Upper GI endoscopy Indications: ? Dyspepsia, Dysphagia, H/o grade one ? varices Providers: ? Matthew Garcia MD, Annie Schwartz, ? RN, Scot Lea, Spinneret Cleaner Referring : ?Malu Sampson Medicines: ? Midazolam 3 mg IV, Fentanyl 150 ? micrograms IV Complications: ? No immediate complications. Procedure: ? The procedure, indications, benefits, ? risks and alternatives were explained ? to the patient. Specifically ? discussed were potential ? complications including, but not ? limited to, bleeding, perforation, ? infection, missing a cancer, and ? adverse medication reactions. The ? Endoscope was introduced through the ? mouth, and advanced to the third part ? of duodenum. The patient tolerated ? the procedure well. The upper GI ? endoscopy was accomplished without ? difficulty. The patient tolerated the ? procedure well. ? Findings: ? The Z-line was regular and was found 38 cm from the ? incisors. The GE jct was wide open. ? There were trace, barely perceptible distal ? esophageal varices. ? Localized mild inflammation characterized by erosions ? and erythema was found in the gastric antrum. ? Biopsies were taken with a cold forceps for ? Helicobacter pylori testing. ? The examined duodenum was normal. Biopsies for ? histology were taken with a cold forceps for ? evaluation of celiac disease. ? Moderate Sedation: ? I was present during the intraservice time as ? documented by the sedation RN. Impression: ?- Z-line regular, 38 cm from the ? incisors. ? - Gastritis. Biopsied. ? - Normal examined duodenum. Biopsied. ? Trace distal esophageal varices. Recommendation: ?- Await pathology results. ? Attending Participation: ? I personally performed the entire procedure. ? __ Matthew Garcia MD 10/21/2016 2:40:55 PM This report has been signed electronically. Number of Addenda: 0 Note Initiated On: 10/21/2016 2:15 PM PROVATION 10/21/2016 2:15 PM EDT Malu Sampson COMPUTER SYSTEMS SUPPORT SPECIALIST GENERAL SURGICAL OR DERABLES PROVATION documented in this encounter Visit Diagnoses Diagnosis Dysphagia, unspecified type documented in this encounter Administered Medications Inactive Administered Medications - up to 3 most recent administrations Medication Order MAR Action Action Date Dose Rate Site fentaNYL 50 mcg/mL multi-dose injection ONCE PRN, Starting on Fri10/21/16 at 1420, Until Fri10/21/16 at 1726, Intra-Operative (Intra-Procedure), Routine Given 10/21/2016 2:25 PM EDT 50 mcg Right Arm Given 10/21/2016 2:23 PM EDT 50 mcg Ri ght Arm Given 10/21/2016 2:20 PM EDT 50 mcg Ri ght Arm midazolam (PF) (VERSED) 1 mg/mL multi-dose injection ONCE PRN, Starting on Fri10/21/16 at 1420, Until Fri10/21/16 at 1726, Intra-Operative (Intra-Procedure), Routine Given 10/21/2016 2:26 PM EDT 1 mg Given 10/21/2016 2:23 PM EDT 1 mg Given 10/21/2016 2:20 PM EDT 1 mg documented in this encounter Active and Recently Administered Medications Times are shown in EDT. PRN Medication Order 10/19/2016 10/20/2016 10/21/2016 fentaNYL 50 mcg/mL multi-dose injection (CANCELED) ONCE PRN, Starting on Fri10/21/16 at 1420, Until Fri10/21/16 at 1726, Intra-Operative (Intra-Procedure), Routine 1420 (Given - Provid er: Annie Schwartz RN)1423 (Given - Provider: Annie Schwartz RN)1425 (Given - Provider: Annie Schwartz RN) midazolam (PF) (VERSED) 1 mg/mL multi-dose injection (CANCELED) ONCE PRN, Starting on Fri10/21/16 at 1420, Until Fri10/21/16 at 1726, Intra-Operative (Intra-Procedure), Routine 1420 (Given - Provid er: Annie Schwartz RN)1423 (Given - Provider: Annie Schwartz RN)1426 (Given - Provider: Annie Schwartz RN) documented in this encounter Care Teams Certified Nursing Assistant Instructor Relationship Specialty Start Date End Date Malu Sampson APRN PCP - General Family Medicine 08/28/16 09/03/17 documented as of this encounter
--- OUTSIDE RECORDS SUMMARY | 2024-01-23 00:34 | XMS_ITS | Encounter Summary ---
Author Organization [facility] [place] [address] Care Team Providers Care Road Machine Operator Name Role Phone Malu Sampson APRN Primary Care Provider [phone] Encounter Details Date Type Department Care Team (Latest Contact Info) Description 10/21/2016 12:05 PM EDT - 10/21/2016 3:26 PM EDT Hospital [place] [phone] Matthew Garcia MD [facility] [place] [address] Discharge Disposition: Home Social History Tobacco Use [...] better as expected. Friday-Friday Same Day Endo [phone] 7a-8p Otherwise contact [phone] and ask to speak to the shredding specialist nursing home admissions director Follow-up care is a oconnell part of [...] EST TH Visit (TeleHealth) [place] [address] Lashae Lorenzo MD [facility] [place] [address] documented as of this encounter Procedures Procedure [...] Report (10/21/2016 2:44 PM EDT) Final Diagnosis [id number] ?Location: 4T; EA09; A The signing pathologist has (i) examined the relevant preparation(s) for the specimen(s) and (ii) rendered or confirmed the diagnosis(es). . ?Surgical Pathology DIAGNOSIS A - Duodenum, ??biopsy: Duodenal mucosa within normal limits, including preserved villous architecture. B - Antrum, ??biopsy: Gastric antral gland mucosa with nonspecific reactive gastropathy. No H. pylori-like microorganism is seen. Electronically signed by: ??Lucian STOCKTON, Solange Verified: ??10/22/2016 ?Pathologist CLINICAL INFORMATION Specimen Submitted: [...] ng: (T1) ??sns 10/22/2016 4:11 PM EDT [facility] GI Biopsy 10/21/2016 2:44 PM EDT 10/21/2016 2:44 PM EDT GI Biopsy 10/21/2016 2:44 PM EDT 10/21/2016 2:44 PM EDT Matthew Garcia MD PATHOLOGY/CYTOLOGY Betty SAMANO Performing Organization Address [facility] Co de Phone Number [facility] [place] [address] * Specimen to Pathology (surgical or derm) (10/21/2016 2:44 PM EDT) AP Specimen 10/21/2016 2:44 PM EDT 10/21/2016 2:44 PM EDT Narrative [facility] - 10/21/2016 2:44 PM EDT Specimen requisition ordered. ??Separate Pathology report to follow Matthew Garcia MD PATHOLOGY/CYTOLOGY O SELWYN Performing Organization Address [facility] Co de Phone Number [facility] [place] [address] * Specimen to Pathology (surgical or derm) (10/21/2016 2:44 PM EDT) AP Specimen 10/21/2016 2:44 PM EDT 10/21/2016 2:44 PM EDT Narrative [facility] - 10/21/2016 2:44 PM EDT Specimen requisition ordered. ??Separate Pathology report to follow Matthew Garcia MD PATHOLOGY/CYTOLOGY O SELWYN Performing Organization Address [facility]/State/ZIP Co de Phone Number [facility] [place] [address] * UPPER GI ENDOSCOPY (10/21/2016 2:15 PM EDT) [facility] UPPER GI ENDOSCOPY [facility] Endoscopy Procedure Date: 10/21/2016 2:15 PM ? Patient Name: Kallie Darling ? N: [id number] ? Date of : 1960 ? Age: 56 ? Order #: [id number] ? Instrument Name: [facility]- [id number] ? Procedure: ? Upper GI endoscopy Indications: ? Dyspepsia, Dysphagia, H/o grade one ? varices Providers: ? Matthew Garcia MD, Annie Schwratz, ? RN, Scot Lea, Acetylene Cutter Referring MD: ?Malu Sampson Medicines: ? Midazolam 3 mg [...] PROVATION 10/21/2016 2:15 PM EDT Malu Sampson APRN GENERAL SURGICAL OR DERABLES PROVATION documented in this encounter Visit Diagnoses Not on filedocumented in this encounter Active and Recently Administered [...] RN) documented in this encounter Care Teams Road Machine Operator Relationship Specialty Start Date End Date Malu Sampson APRN PCP - General Family Medicine 08/28/16 09/03/17 documented as of this encounter
--- OUTSIDE RECORDS SUMMARY | 2024-01-23 00:34 | XMS_ITS | Encounter Summary ---
[facility] [place] [address] Care Team Providers Care Box Hinge And Lock Attacher Name Role Phone Jennie Resendiz MD Primary Care Provider [phone] Encounter Details Date Type Department Care Team (Late st Contact Info) Description 01/27/2014 10:30 AM EDT - 01/27/2014 11:15 AM EDT Surgery [place] [phone] Natividad Stevens MD [facility] [place] [address] COLONOSCOPY FLEXIBLE, WITH BX (WRVU 3.56) Social History Tobacco Use Types Packs/Day Years Used Date Smoking Tobacco: Every Day Cigarettes 0.3 30 Smokeless Tobacco: Never Tobacco Cessation:Ready to Q uit: No Alcohol Use Standard Drinks/Week Comments No 0 [...] Sign Reading Time Taken Comments Blood Pressure 115/68 01/27/2014 11:28 AM EDT Pulse 77 01/27/2014 11:28 AM EDT Temperature - - Respiratory Rate 17 01/27/2014 11:28 AM EDT Oxygen Saturation 95% 01/27/2014 11:28 AM EDT Inhaled Oxygen Concentration - - Weight - - Height - - Body Mass Index - - documented in this encounter Discharge Instructions * Discharge Instructions* Erickson Perez RN - 01/27/2014 11:33 AM EDT You may have received medication before and/or during your procedure, which affects judgement and reaction time. Do not drive, operate machinery, drink alcoholic beverages, or make important decisions for 24 hours. Be careful on stairs, as you may be unsteady on your feet. You may eat a regular diet as tolerated. Do not smoke if you are alone. IV site -- slight redness, or tenderness is normal, you can use a warm compress. If tenderness and redness increases or foul drainage occurs, please contact your M. D. * Attachments The following attachments cannot be sent through Care Everywhere. * POLYPS (PASHTO) documented in this encounter Medications at Time of Discharge Medication Sig Dispensed Refills Start Date End Date albuterol (PROVENTIL HFA;VENTOLIN HFA) 90 mcg/actuation HFA Aerosol Inhaler Inhale 2 puffs into the lungs every 4 hours as needed. Use with spacer 09/04/2017 zinc sulfate (ZINCATE) 220 (50) mg capsule Take 1 capsule by mouth 2 times daily. 60 capsule 11 11/23/2013 07/07/2014 lactulose (CHRONULAC) 20 gram/30 mL solution Take 30 mLs by mouth 2 times daily. 1800 mL 11 05/06/2013 07/07/2014 carvedilol (COREG) 6.25 mg tablet Take 1 tablet by mouth 2 times daily (with meals). 60 tablet 3 09/18/2012 01/11/2015 simvastatin (ZOCOR) 20 mg tablet Take 20 mg by mouth daily. 07/07/2014 fluticasone-salmeterol (ADVAIR) 500-50 mcg/dose diskus inhaler Inhale 1 puff into the lungs 2 times daily. 07/07/2014 amitriptyline (ELAVIL) 10 mg tablet Take 10 mg by mouth nightly. 07/07/2014 risperidone (RISPERDAL) 1 mg tablet Take 1 mg by mouth 2 times daily. Reported on 09/05/2016 10/17/2010 05/05/2017 citalopram (CELEXA) 10 mg tablet Take 20 mg by mouth daily. 07/07/2014 tiotropium (SPIRIVA) 18 mcg inhalation capsule Inhale 18 mcg into the lungs daily. 09/04/2017 Levalbuterol Tartrate (XOPENEX HFA) 45 mcg/Actuation inhaler Inhale 2 puffs into the lungs every 4 hours as needed. 2 puffs Q4-6 Hours 07/07/2014 esomeprazole (NEXIUM) 40 mg capsule Take 40 mg by mouth daily. 07/30/2010 08/30/2015 gabapentin (NEURONTIN) 300 mg capsule Take 300 mg by mouth 2 times daily. 07/30/2010 10/16/2017 documented as of this encounter H&P Notes * Natividad Stevens MD - 01/27/2014 9:55 AM EDT Gastroenterology and Hepatology Pre-Procedure History and Physical Exam Procedure: Colonoscopy: Indication: screening 53 y.o. yo female for avg risk screening. No family history of colon cancer or polyps. No diarrhea,constipation, or rectal bleeding. Patient Active Problem List Diagnosis Code ??? Right foot pain 729.5 ??? Neck pain 723.1 ??? Left elbow pain 719.42 ??? Asthma 493.90 ??? Chronic low back pain 724.2, 338.29 ??? Restless leg syndrome 333.94 ??? Acid reflux 530.81 ??? Learning disability 315.2 ??? Low back pain 724.2 ??? Primary hyperparathyroidism (PTH 165, Ca 11.0, +PUD but no kidney stone) 252.01 ??? H/O hysterectomy for benign disease at age 32 (menorrhagia/DUB) V88.01 ? ? 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 Hyperparathyroidism 252.00 EXAM: HEENT: Airway examined, oropharynx clear Mallampati Score: II (soft palate, uvula, fauces visible) LUNGS: Clear to auscultation HEART: Regular rate and rhythm, normal S1, S2 ABDOMEN: Normal bowel sounds, soft, non tender, non distended, A/P Proceed with the planned endoscopic procedure. ASA 2 - Patient with mild systemic disease with no functional limitations moderate (conscious sedation) Risks and benefits of the procedure explained to the patient. Consent signed. documented in this encounter Miscellaneous Notes * Miscellaneous - Provider, Scanning - 01/27/2014 9:58 PM EDT * Miscellaneous - Provider, Scanning - 01/27/2014 5:14 PM EDT * Op Note - Natividad Stevens MD - 01/27/2014 11:19 AM EDT [facility] Operative Note Patient Name: Kallie Darling : [id number] MR#: [id number] Case Date: 01/27/2014 Surgeon: Surgeon(s) and Role: * Natividad Stevens MD - Primary Preoperative diagnosis: screening, poor prep last year, needs 2 days Golytely Postoperative diagnosis: * No post-op diagnosis entered * Procedure(s): COLONOSCOPY FLEXIBLE, WITH BX IV Conscious Sedation Please see the Provation procedure report in the Procedures tab in eDH. documented in this encounter Plan of Treatment Upcoming Encounters Date Type Department Care Team (Late st Contact Info) Description 02/27/2024 2:45 PM EST TH Visit (TeleHealth) [place] [phone] Lashae Lorenzo MD [facility] [place] [address] documented as of this encounter Procedures Procedure Name Priority Date/Time Associated Diagnosis Comments C. DIFFICILE SCREEN Routine 01/27/2014 1 1:35 AM EDT SURGICAL PATHOLOGY REPORT Routine 01/27/2014 11:21 AM EDT SPECIMEN TO PATHOLOGY Routine 01/27/2014 11:21 AM EDT SPECIMEN TO PATHOLOGY Routine 01/27/2014 11:21 AM EDT SPECIMEN TO PATHOLOGY Routine 01/27/2014 11:21 AM EDT COLONOSCOPY FLEXIBLE, WITH BX (WRVU 3.56) 01/27/2014 10:45 AM EDT Screening for colon cancer COLONOSCOPY Routine 01/27/2014 8:59 AM EDT documented in this encounter Results * C. Difficile Screen (01/27/2014 11:35 AM EDT) C Diff Interp Negative Negative [facility] Stool specimen (specimen) 01/27/2014 11:35 AM EDT 01/27/2014 1:38 PM EDT Narrative Resulting Agency Comment Spec In Lab Natividad Stevens MD MICROBIOLOGY - GENER AL ORDERABLES Performing Organization Address City/State/[facility] Co de Phone Number [facility] * Surgical Pathology Report (01/27/2014 11:21 AM EDT) Final Diagnosis ? [facility] ? Provider: ?? Natividad STEVENS ?Pt. Name: ?? CORRUGATOR MACHINE OPERATORKALLIE DUENAS ? Acc #: ?[id number] ?Pt. ? Col Date: ?? 01/27/2014 ?/Sex: ?1960,(53 years),Female ? Rec Date: ?? 01/27/2014 ?LOC: ?4T ? SURGICAL PATHOLOGY ? ---Pathologic Diagnosis--- ? A - Sigmoid polyp: ? Tubular adenoma. ? B - Right colon, biopsy: ? Colonic mucosa with nonspecific active colitis. (See Comment.) ? C - Left colon, biopsy: ? Colonic mucosa with nonspecific active colitis. (See Comment.) ? CR-0 ; CR-PX ? 01/28/14 ? JRP ? 01/28/14 Verified by: ? Stephanie STOCKTON, Valdez Garvey ? Pathologist ? (Electronic Signature) ? The attending pathologist whose signature appears on this report has ? reviewed all diagnostic slides and has edited the gross and/or ? microscopic portion of the report in rendering the final pathologic ? diagnosis. ? ---Comment--- ? In Parts B and C, scattered active inflammation, including superficial ? crypt abscesses, is seen with no definite features of chronicity. The ? differential diagnosis includes (but is not limited to) infectious colitis ? or evolving inflammatory bowel disease. No specific features of ischemia ? are seen. Clinical correlation is needed. ? ---Microscopic Description--- ? Whole slide scan: ? S [id number] B1-1 ? S [id number] B2-1 ? S [id number] C1-1 ? ---Gross Description--- ? A - Labeled/Fixative : Polyp-sigmoid 30 cm, formalin. ? Quantity/Size: Two, 0.3 and 0.4 cm. ? Tissue Description: Soft, florian-pink tissue. ? Sections/Process ing: (T1) ? B - Labeled/Fixative : Mucosal biopsies, right colon, formalin. ? Quantity/Size: Multiple, 0.2-0.4 cm. ? [facility] ? Provider: ?? Natividad STEVENS ?Pt. Name: ?? KALLIE DARLING ? Acc #: ?[id number] ?Pt. ? Col Date: ?? 01/27/2014 ?/Sex: ?1960,(53 years),Female ? Rec Date: ?? 01/27/2014 ?LOC: ?4T ? SURGICAL PATHOLOGY ? Tissue Description: Soft, florian-pink tissue. ? Sections/Process ing: (T2) ? C - Labeled/Fixative : Mucosal biopsies-L. Colon, formalin. ? Quantity/Size: Five, 0.3-0.4 cm. ? Tissue Description: Soft, florian-pink tissue. ? Sections/Process ing: (T1) ??ejr ? ---Clinical Information--- ? Specimen Submitted: ? A - Polyp - sigmoid 30cm ? B - Mucosal biopsies - R colon ? C - Mucosal biopsies - L colon ? Clinical History: ? 53 year-old for screening who has acute antibiotic associated diarrhea ? Clinical Diagnosis: ? Same 01/28/2014 4:33 PM EDT [facility] GI Biopsy 01/27/2014 11:2 1 AM EDT 01/27/2014 11:21 AM EDT GI Biopsy 01/27/2014 11:2 1 AM EDT 01/27/2014 11:21 AM EDT GI Biopsy 01/27/2014 11:2 1 AM EDT 01/27/2014 11:21 AM EDT Natividad Stevens MD PATHOLOGY/CYTOLOGY O [place] [address] * Specimen to Pathology (surgical or derm) (01/27/2014 11:21 AM EDT) AP Specimen 01/27/2014 11:2 1 AM EDT 01/27/2014 11:21 AM EDT Narrative LILLIE HUIZAR - 01/27/2014 11:21 AM EDT Specimen requisition ordered. ??Separate Pathology report to follow L Sulaiman Stevens MD PATHOLOGY/CYTOLOGY O SELWYN LILLIE HUIZAR * Specimen to Pathology (surgical or derm) (01/27/2014 11:21 AM EDT) AP Specimen 01/27/2014 11:2 1 AM EDT 01/27/2014 11:21 AM EDT Narrative LILLIE HUIZAR - 01/27/2014 11:21 AM EDT Specimen requisition ordered. ??Separate Pathology report to follow L Sulaiman Stevens MD PATHOLOGY/CYTOLOGY O RDERAOSWALDO LILLIE HUIZAR * Specimen to Pathology (surgical or derm) (01/27/2014 11:21 AM EDT) AP Specimen 01/27/2014 11:2 1 AM EDT 01/27/2014 11:21 AM EDT Narrative LILLIE HUIZAR - 01/27/2014 11:21 AM EDT Specimen requisition ordered. ??Separate Pathology report to follow L Sulaiman Stevens MD PATHOLOGY/CYTOLOGY O SELWYN [facility]ILLIE HUIZAR * COLONOSCOPY (01/27/2014 8:59 AM EDT) COLONOSCOPY [facility] Endoscopy ___ Patient Name: Kallie Darling ? Procedure Date: 01/27/2014 8:59 AM ? Date of : 1960 ? Age: 53 ? Order #: [id number] ? ___ Procedure: ? Colonoscopy Indications: ? Screening for colorectal malignant ? neoplasm; patient with coincidental ? acute diarrhea following recent ? antibiotics for pneumonia. Providers: ? Sana Stevens MD, Kaila Sanchez, ? RN, Mala Bagalio Referring MD: ?Jennie Resendiz MD Medicines: ? [...] ? please call our office at ? [phone]. ? _ L. Sulaiman Stevens MD 01/27/2014 11:30 AM Number of Addenda: 0 Note Initiated On: 01/27/2014 8:59 AM PROVATION 01/27/2014 8:59 AM EDT Jennie Resendiz MD GENERAL SURGICAL ORD ERABLES PROVATION documented in this encounter Visit Diagnoses Diagnosis Screening for colon cancer Special screening for malignant neoplasms, colon documented in this encounter Administered Medications Inactive Administered Medications - up to 3 most recent administrations Medication Order MAR Action Action Date Dose Rate Site fentaNYL 50mcg/mL injection ONCE PRN, Starting on Koki 01/27/14 at 1048, Until Koki 01/27/14 at 1227, Pain, Intra-Operative (Intra-Procedure), Routine Given 01/27/2014 10:59 AM EDT 25 mcg Right Arm Given 01/27/2014 10:54 AM EDT 25 mcg R ight Arm Given 01/27/2014 10:49 AM EDT 50 mcg R ight Arm midazolam (PF) (VERSED) 1 mg/mL injection ONCE PRN, Starting on Koki 01/27/14 at 1046, Until Koki 01/27/14 at 1227, Sleep, Intra-Operative (Intra-Procedure), Routine Given 01/27/2014 10:59 AM EDT 1 mg Right Arm Given 01/27/2014 10:54 AM EDT 1 mg Given 01/27/2014 10:49 AM EDT 1 mg documented in this encounter Active and Recently Administered Medications Times are shown in EDT. PRN Medication Order 01/25/2014 01/26/2014 01/27/2014 fentaNYL 50mcg/mL injection (CANCELED) ONCE PRN, Starting on Koki 01/27/14 at 1048, Until Koki 01/27/14 at 1227, Pain, Intra-Operative (Intra-Procedure), Routine 1046 (Given - Provid er: Kaila Sanchez RN - Comment: starting sedation)1049 (Given - Provider: Kaila Sanchez RN - Comment: continuing sedation)1054 (Given - Provider: Kaila Sanchez RN - Comment: continuing sedation)1059 (Given - Provider: Kaila Sanchez RN - Comment: pt uncomfortable) midazolam (PF) (VERSED) 1 mg/mL injection (CANCELED) ONCE PRN, Starting on Koki 10 at 1046, Until Koki 01/27/14 at 1227, Sleep, Intra-Operative (Intra-Procedure), Routine 1046 (Given - Provid er: Kaila Sanchez RN - Comment: starting sedation)1049 (Given - Provider: Kaila Sanchez RN - Comment: continuing sedation)1054 (Given - Provider: Kaila Sanchez RN - Comment: continuing sedation)1059 (Given - Provider: Kaila Sanchez RN - Comment: pt uncomfortable) documented in this encounter Care Teams Box Hinge And Lock Attacher Relationship Specialty Start Date End Date Jennie Resendiz MD [facility] [address] [place] [address] PCP - General 03/06/10 08/27/16 documented as of this encounter
--- OUTSIDE RECORDS SUMMARY | 2024-01-23 00:34 | XMS_ITS | Encounter Summary ---
[facility] Organization [facility] [place] [address] Care Team Providers Care Regional Merchandising Manager Name Role Phone Malu Sampson APRN Primary Care Provider [phone] Reason for Visit * Reason Comments Follow-up Encounter Details Date Type Department Care Team (Late st Contact Info) Description 09/05/2016 11:00 AM EDT Office [place] [address] Lina Vogel MD [facility] [place] [address] Dysphagia, unspecified type; RUQ pain Social History Tobacco Use Types Packs/Day [...] Sign Reading Time Taken Comments Blood Pressure 135/74 09/05/2016 10:47 AM EDT Pulse 68 09/05/2016 10:47 AM EDT Temperature - - Respiratory Rate - - Oxygen Saturation - - Inhaled Oxygen Concentration - - Weight 101.6 kg (224 lb) 09/05/2016 10:47 AM EDT Height 165.1 cm (5' 5) 09/05/2016 10:47 AM EDT Body Mass Index 37.28 09/05/2016 10:47 AM EDT documented in this encounter Progress Notes * Lina Vogel - 09/05/2016 11:00 AM EDT [facility] Division of Gastroenterology and Hepatology Outpatient Follow up Visit Reason for Visit: Follow up for HARDEN/MONA cirrhosis ID: Kallie Darling is a 56 y.o. 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 Interval History: - Overall, she reports that she has doing pretty good. - Drinks once in blue trujillo. Once per month. She reports that since she stopped seeing her ex- is when she stopped drinking. - The abdominal pain that she was having, previously, she does not it anymore. She does have right sided back and stomach pain that is worse whenever trying to lift objects. No relationship to eating. - She takes occasional tylenol. When increase the fluids and cranberry juice, R flank pain is improved. - Sometimes she has an appetite and other times she does not. Her weight bounces up and down. - She also reports intermittent solid food dysphagia without any significant weight loss. She denies any fevers, chills, jaundice, swelling in legs, abdominal distention, nausea, vomiting, melena, hematochezia. Review of Systems: 10 point ROS was negative other than that mentioned in the HPI GI Problem List: 1. Cirrhosis, HARDEN/MONA Imaging [...] Influenza Vaccine - administered 05/06/13 Social History: Drinks 1-2 tall boys (24 ounces) on Friday/Friday, cut down to about 3 beers per week. Smokes 1/2pack per day. Family History: No family history of Liver disease. Current Outpatient Prescriptions Medication Sig Dispense Refill ??? cyanocobalamin 1,000 mcg Tablet 0 ??? hydrOXYzine (ATARAX) 25 mg Tablet Take 25 mg by mouth 3 times daily as needed for Itching. ??? meclizine (ANTIVERT) 12.5 mg Tablet Take 12.5 mg by mouth 3 times daily as needed. ??? carvedilol (COREG) 6.25 mg Tablet Take 1 tablet by mouth 2 times daily (with meals). 180 tablet3 ??? ranitidine (ZANTAC) 300 mg Tablet Take 300 mg by mouth nightly. ??? omeprazole (PRILOSEC) 20 mg Capsule, Delayed Release(E.C.) Take 20 mg by mouth daily. ??? levothyroxine (SYNTHROID) 50 mcg Tablet Take 50 mcg by mouth daily. ??? loratadine (CLARITIN) 10 mg Tablet Take 10 mg by mouth daily. ??? citalopram (CELEXA) 20 mg Tablet Take 20 mg by mouth daily. ??? pravastatin (PRAVACHOL) 80 mg Tablet Take 80 mg by mouth every morning. ??? lactulose (CHRONULAC) 20 gram/30 mL Solution Take 30 mLs by mouth 2 times daily. 1800 mL 11 ??? albuterol (PROVENTIL HFA;VENTOLIN HFA) 90 mcg/actuation HFA Aerosol Inhaler Inhale 2 puffs intothe lungs every 4 hours as needed. Use with spacer ??? tiotropium (SPIRIVA) 18 mcg inhalation capsule Inhale 18 mcg into the lungs daily. ??? gabapentin (NEURONTIN) 300 mg capsule Take 300 mg by mouth 2 times daily. ??? risperidone (RISPERDAL) 1 mg tablet Take 1 mg by mouth 2 times daily. Reported on 09/05/2016 No current facility-administered medications for this visit. Allergies Allergen Reactions ??? Amoxicillin-Pot Clavulanate Nausea Only ??? Bacitracin Nausea Only ??? Gramicidin D Nausea Only ??? Neomycin Sulfate Nausea Only ??? Polymyxin B Nausea Only ??? Aspirin Nausea And Vomiting ??? Lactose Other (See Comments) GI Upset Physical Examination: BP 135/74 Pulse 68 Ht 165.1 cm (5' 5) Wt (!) 101.6 kg (224 lb) BMI 37.28 kg/m2 General:Pleasant, cooperative, NAD HEENT: NC/AT, anicteric sclera Neck: soft, supple Chest: CTAB, no wheeze, rale or rhonchi CVS:RRR, normal s1/s2, soft diastolic murmur ABD: Obese, soft, NABS, tenderness in RUQ + Carnett's sign Extremities: No edema Neuro: No asterixis Labs: Reviewed in EDH/Scan Docs Lab Results Component Value Date WBC 6.3 08/30/2015 HGB 14.0 08/30/2015 HCT 41.7 08/30/2015 MCV 91.2 08/30/2015 PLATELET 107 (L) 08/30/2015 Chemistry Component Value Date/Time NA 138 08/30/2015 1750 K 4.1 08/30/2015 1750 CL 101 08/30/2015 1750 CO2 25 08/30/2015 1750 BUN 11 08/30/2015 1750 CREATININE 0.76 08/30/2015 1750 Component Value Date/Time CALCIUM 10.9 (H) 08/30/2015 1750 ALKPHOS 138 (H) 08/30/2015 1750 AST 34 (H) 08/30/2015 1750 ALT 19 08/30/2015 1750 BILITOT 0.4 08/30/2015 175 Lab Results Component Value Date ALT 19 08/30/2015 AST 34 (H) 08/30/2015 ALKPHOS 138 (H) 08/30/2015 BILITOT 0.4 08/30/2015 Additional Testing: Reviewed available labs, imaging and endoscopy results in EDH/CIS as well as Scan Docs tab. IMPRESSION: Kallie Darling is a 56 y.o. PMH significant for MONA/HARDEN c/b portal HTN: Grade 1 Pilar carvedilol, constipation who comes into clinic for follow up. On our last visit, she came to assess a ventral hernia and pre-operative risk. I did not have records at the time of our last visit. Reviewed CT scan from last year, and I informed her that I tried to reach out multiple times without being able to contact here. I discussed this with her and she says that she does not answer her phone if she does not recognize it and will not check her voicemail. I informed her that she should try to return calls. After reviewing her CT scan and her generalized abdominal pain, I am not convinced that her abdominal pain is related to the hernia. Since she has signs of portal hypertension with thrombocytopenia, and varices she is a high risk surgical candidateand do not believe that the risks outweigh the benefits. She has generalized abdominal pain and her RUQ abdominal pain both appear to be musculoskeletal in nature. She has positive Carnett's sign which is in support of this. Will plan to perform RUQ US to further assess as also due for HCC. Also, an EGD since she does have some solid food dysphagia. Again today we discussed with her cirrhosis that she should avoid etoh consumption. She understandsthis and has decreased the amount that she is drinking, but does not completely abstain. Her ex- was a trigger for drinking. We also discussed ongoing weight loss and the importance of it and e xercise given that there most likely is a component of HARDEN as well. For her constipation, she is doing well and taking lactulose intermittently. She does not have any signs of encephalopathy. RECOMMENDATIONS: # RUQ US on same day as EGD given dysphagia. # portal HTN: Last EGD 2012: Grade I EV on carvedilol # HCC screening: RUQ US [id number], last one 01/11/15 no lesions, schedule # HE: no evidence, but does have constipation, recommending continuing lactulose 1-2 times daily tohave 2-3 BMs daily # Vaccinations: HAV/HBV +/+ - pneumovax q5 years - yearly influenza vaccine Follow up in 6 months with labs and US before. This case was discussed with Dr. Mccain. Lina Vogel MD [place] [address] P: [phone] F: [phone] CC Malu Sampson, DIESEL BUS MECHANIC [address] , [address] [address] * Cornelius Mccain MD - 09/05/2016 11:00 AM EDT I reviewed the note by Dr. Vogel and I agree with the assessment and plan as outlined in hernote from today. documented in this encounter Plan of Treatment Upcoming Encounters Date Type Department Care Team (Late st Contact Info) Description 02/27/2024 2:45 PM EST TH Visit (TeleHealth) [place] [address] Lashae Lorenzo MD [facility] [place] [address] Scheduled Orders Name Type Priority Associated Diagnoses Orde r Schedule UPPER GI ENDOSCOPY Procedures Routine Dysphagia, Unspecified Type Ordered: 09/05/2016 documented as of this encounter Results * US Abdomen Limited (10/21/2016 11:47 AM EDT) Anatomical Region Laterality Modality Abdomen Ultrasound 10/21/2016 11:4 6 AM EDT Impressions 10/21/2016 12:05 PM EDT ??1. ??Coarsely echogenic hepatic parenchyma with capsular nodularity.Hepatomegaly. Status post cholecystectomy, 10 mm common bile duct.2. No evidence for intrahepatic mass lesions.3. Multiple collateral vessels are identified. Recanalized umbilical vein is notdefinitely identified. No ascites.4. The pancreas is difficult to completely evaluate given overlying bowel gasand collateral vessels. Region head of pancreas is unremarkable.5. The right kidney is normal. ? Carmen Krishna Jurado MD Electronically Signed Final Report ?? 10/21/2016 12:04 pm Narrative 10/21/2016 12:05 PM EDT Abdominal ? (Signed Final 10/21/2016 12:04 pm) PATIENT INFO: ID #: ? [id number] ?: ??[birth year] (56 yrs) Name: ? KALLIE DARLING ? Visit Date: 10/21/2016 11:46 am PERFORMED BY: Performed By: ? Neno EVANS, ??Demetra Attending: ?Rhiannon STOCKTON, Carmen Keller. Referred By: ?ASHLEY THOMPSON Location: ? [place] SERVICE(S) PROVIDED: ??UABDLIM - Abdominal Limited Survey Single ? 19697 ??Organ or Quadrant - [id number] INDICATIONS: ??Compensated cirrhosis, assess for HCC ------ LIVER: ------ Right Lobe Length: ?? 19.3 ?? cm Echogenicity/Echotexture: ?? Coarse parenchyma with capsular ? nodularity GALLBLADDER: Comment: ?Cholecystectomy BILIARY TRACT: Intrahepatic Ducts: ?? Normal Extrahepatic Ducts: ?? Normal Common Duct Size: ? 10.0 ?mm --------- PANCREAS: --------- Head: ? Limited visualization due to overlying ? bowel Tail: ? Poorly visualized due to overlying bowel Body: ? Normal RIGHT KIDNEY: Size (cm) ?L: ??11.3 Cortical Thickness: ?Normal Cortical Echogenicity: ?? Normal Hydronephrosis: ?No sonographic evidence ------ AORTA: ------ Measurements (cm): Proximal ? AP: ?? 2.0 Comment: ?Normal in caliber where visualized. ---- IVC: ---- Normal in caliber where visualized. Procedure Note Carmen Jurado MD - 10/21/2016 Abdominal (Signed Final 10/21/2016 12:04 pm) PATIENT INFO: ID #: [id number] : 60 (56 yrs) Name: KALLIE DARLING Visit Date: 10/21/2016 11:46 am PERFORMED BY: Performed By: Demetra Lazcano RDMS Attending: Carmen Jurado MD Referred By: ASHLEY THOMPSON Location: [place] SERVICE(S) PROVIDED: UABDLIM - Abdominal Limited Survey Single 18096 Organ or Quadrant - [id number] INDICATIONS: Compensated cirrhosis, assess for HCC ------ LIVER: ------ Right Lobe Length: 19.3 cm Echogenicity/Echotexture: Coarse parenchyma with capsular nodularity GALLBLADDER: Comment: Cholecystectomy BILIARY TRACT: Intrahepatic Ducts: Normal Extrahepatic Ducts: Normal Common Duct Size: 10.0 mm --------- PANCREAS: --------- Head: Limited visualization due to overlying bowel Tail: Poorly visualized due to overlying bowel Body: Normal RIGHT KIDNEY: Size (cm) L: 11.3 Cortical Thickness: Normal Cortical Echogenicity: Normal Hydronephrosis: No sonographic evidence ------ AORTA: ------ Measurements (cm): Proximal AP: 2.0 Comment: Normal in caliber where visualized. ---- IVC: ---- Normal in caliber where visualized. IMPRESSION 1. Coarsely echogenic hepatic parenchyma with capsular nodularity.Hepatomegaly. Status post cholecystectomy, 10 mm common bile duct.2. No evidence for intrahepatic mass lesions.3. Multiple collateral vessels are identified. Recanalized umbilical vein is notdefinitely identified. No ascites.4. The pancreas is difficult to completely evaluate given overlying bowel gasand collateral vessels. Region head of pancreas is unremarkable.5. The right kidney is normal. Carmen Jurado MD Electronically Signed Final Report 10/21/2016 12:04 pm Ashley Thompson MD IMG US GEN ORDERABLE S documented in this encounter Visit Diagnoses Diagnosis Dysphagia, unspecified type RUQ pain Abdominal pain, right upper quadrant RUQ pain Abdominal pain, right upper quadrant documented in this encounter Care Teams Regional Merchandising Manager Relationship Specialty Start Date End Date Malu Sampson, RADHA PCP - General Family Medicine 08/28/16 09/03/17 documented as of this encounter
--- OUTSIDE RECORDS SUMMARY | 2024-01-23 00:34 | XMS_ITS | Encounter Summary ---
Author Organization [facility] [place] [address] Care Team Providers Care Shuttle Car Operator Name Role Phone Malu Sampson APRN Primary Care Provider [phone] Encounter Details Date Type Department Care Team (Latest Contact Info) Description 10/21/2016 9:58 AM EDT - 10/21/2016 12:04 PM EDT Hospital [place] [phone] Ashley Thompson MD [facility] [place] [address] RUQ pain Discharge Disposition: Home Social History Tobacco Use [...] 07/30/2010 10/16/2017 documented as of this encounter Plan of Treatment Upcoming Encounters Date Type Department Care Team (Late st Contact Info) Description 02/27/2024 2:45 PM EST TH Visit (TeleHealth) [place] [address] Lashae Lorenzo MD [facility] [place] [address] documented as of this encounter Procedures Procedure Name Priority Date/Time Associated Diagnosis Comments US ABDOMEN LIMITED Routine 10/21/2016 11 :47 AM EDT RUQ pain documented in this encounter Results * US [...] 12:04 pm) PATIENT INFO: ID #: ? [id number] ?: ??60 (56 yrs) Name: ? KALLIE Villalobos MOLDER PUNCH ? Visit Date: 10/21/2016 11:46 am PERFORMED BY: Performed By: ? Neno EVANS, ??Demetra Attending: ?Rhiannon STOCKTON, Carmen J. Referred By: ?ASHLEY BENDERR Location: ? [place] SERVICE(S) PROVIDED: ??UABDLIM - Abdominal Limited Survey Single ? 46515 ??Organ or Quadrant - [id number] INDICATIONS: ??Compensated cirrhosis, assess for HCC ------ [...] 10/21/2016 12:04 pm) PATIENT INFO: ID #: [id number] : 60 (56 yrs) Name: KALLIE SMART Visit Date: 10/21/2016 11:46 am PERFORMED BY: Performed By: Demetra Lazcano RDMS Attending: Carmen Jurado MD Referred By: ASHLEY THOMPSON Location: [place] SERVICE(S) PROVIDED: UABDLIM - Abdominal Limited Survey Single 21076 Organ or Quadrant - [id number] INDICATIONS: Compensated cirrhosis, assess for HCC ------ [...] documented in this encounter Visit Diagnoses Diagnosis RUQ pain Abdominal pain, right upper quadrant documented in this encounter Care Teams Shuttle Car Operator Relationship Specialty Start Date End Date Malu Sampson APRN PCP - General Family Medicine 08/28/16 09/03/17 documented as of this encounter
--- OUTSIDE RECORDS SUMMARY | 2024-01-23 00:34 | XMS_ITS | Encounter Summary ---
Author Organization [facility] Address [facility] [place] [address] Care Team Providers Care Front End Technician Name Role Phone Malu Sampson APRN Primary Care Provider [phone] Encounter Details Date Type Department Care Team (Latest Contact Info) Description 06/27/2017 - 06/27/2017 11:59 PM EDT Hospital Encounter Radiology Library at [facility] [place] [phone] Ana Dias MD [facility] [place] [address] Discharge Disposition: Home Social History Tobacco Use [...] Sig Dispensed Refills Start Date End Date pantoprazole (PROTONIX) 40 mg Tablet, Delayed Release (E.C.) Take 40 mg by mouth daily. 09/04/2017 famotidine (PEPCID) 20 mg Tablet Take 20 mg by mouth 2 times daily. 09/04/2017 rOPINIRole (REQUIP) 0.25 mg Tablet Take 0.25 mg by mouth 3 times daily. 09/04/2017 gabapentin (NEURONTIN) 100 mg Capsule Take 1 capsule by mouth 3 times daily. 90 capsule 12 06/26/2017 10/16/2017 famotidine (PEPCID) 40 mg Tablet Take 40 mg by mouth daily. 09/04/2017 cyanocobalamin 1,000 mcg Tablet 0 08/25/2016 01/16/2023 hydrOXYzine (ATARAX) 25 mg Tablet Take 25 mg by mouth 3 times daily as needed for Itching. 09/04/2017 meclizine (ANTIVERT) 12.5 mg Tablet Take 12.5 mg by mouth 3 times daily as needed. 09/04/2017 carvedilol (COREG) 6.25 mg TabletIndications:Alcoh olic cirrhosis of liver without ascites Take 1 tablet by mouth 2 times daily (with meals). 180 tablet 3 03/20/2015 05/30/2022 ranitidine (ZANTAC) 300 mg Tablet Take 300 mg by mouth nightly. 09/04/2017 levothyroxine (SYNTHROID) 50 mcg Tablet Take 50 [...] hours as needed. Use with spacer 09/04/2017 tiotropium (SPIRIVA) 18 mcg inhalation capsule Inhale 18 mcg into the lungs daily. 09/04/2017 gabapentin (NEURONTIN) 300 mg capsule Take 300 mg by mouth 2 times daily. 07/30/2010 10/16/2017 documented as of this encounter Plan of Treatment Upcoming Encounters Date Type Department Care Team (Late st Contact Info) Description 02/27/2024 2:45 PM EST TH Visit (TeleHealth) [place] [address] Lashae Lorenzo MD [facility] [place] [address] documented as of this encounter Procedures Procedure Name Priority Date/Time Associated Diagnosis Comments FILM LIBRARY STORAGE ONLY CT CHEST ABDOMEN PELVIS Routine 06/27/2017 12:00 AM EDT documented in this encounter Results * Film Library- Storage Only CT Chest Abdomen Pelvis (06/27/2017 12:00 AM EDT) Narrative [facility] - 10/17/2017 9:18 PM EDT This exam is for storage only and is auto-finalizing. Ana Dias MD IMG FILM LIBRARY ORDERABLES Performing Organization Address City/State/[facility] Co de Phone Number [place], [place] documented in this encounter Visit Diagnoses Not on filedocumented in this encounter Care Teams Front End Technician Relationship Specialty Start Date End Date Malu Sampson APRN PCP - General Family Medicine 08/28/16 09/03/17 documented as of this encounter
--- OUTSIDE RECORDS SUMMARY | 2024-01-23 00:34 | XMS_ITS | Encounter Summary ---
[place] [address] Care Team Providers Care Appeals Board Referee Name Role Phone Jennie Resendiz MD Primary Care Provider [phone] Reason for Visit * Reason Onset Date Comments Medication Refill 03/20/2015 Encounter Details Date Type Department Care Team (Late st Contact Info) Description 03/20/2015 [place]ill [place] [address] Patricia Florence CMA Alcoholic cirrhosis of liver without ascites Social History Tobacco Use Types Packs/Day Years [...] EST TH Visit (TeleHealth) [place] [address] Lashae Lorenzo MD [facility] [place] [address] documented as of this encounter Visit Diagnoses Diagnosis Alcoholic cirrhosis of liver without ascites Alcoholic cirrhosis of liver documented in this encounter Care Teams Appeals Board Referee Relationship Specialty Start Date End Date Jennie Resendiz MD [address] [place] [address] PCP - General 03/06/10 08/27/16 documented as of this encounter
--- OUTSIDE RECORDS SUMMARY | 2024-01-23 00:34 | XMS_ITS | Encounter Summary ---
[place] [address] Care Team Providers Care Asl Interpreter Name Role Phone Jennie Resendiz MD Primary Care Provider [phone] Encounter Details Date Type Department Care Team (Latest Contact Info) Description 07/07/2014 1:01 PM EDT - 07/07/2014 11:59 PM EDT Hospital [place] [phone] Cirrhosis of liver Social History Tobacco Use Types Packs/Day Years [...] Sig Dispensed Refills Start Date End Date levothyroxine (SYNTHROID) 50 mcg Tablet Take 50 [...] hours as needed. Use with spacer 09/04/2017 carvedilol (COREG) 6.25 mg tablet Take 1 tablet by mouth 2 times daily (with meals). 60 tablet 3 09/18/2012 01/11/2015 risperidone (RISPERDAL) 1 mg tablet Take 1 mg by mouth 2 times daily. Reported on 09/05/2016 10/17/2010 05/05/2017 tiotropium (SPIRIVA) 18 mcg inhalation capsule Inhale 18 mcg into the lungs daily. 09/04/2017 esomeprazole (NEXIUM) 40 mg capsule Take 40 mg by mouth daily. 07/30/2010 08/30/2015 gabapentin (NEURONTIN) 300 mg capsule Take 300 mg by mouth 2 times daily. 07/30/2010 10/16/2017 documented as of this encounter Plan of Treatment Upcoming Encounters Date Type Department Care Team (Late st Contact Info) Description 02/27/2024 2:45 PM EST TH Visit (TeleHealth) [place] [address] Lashae Lorenzo MD [facility] [place] [address] documented as of this encounter Procedures Procedure Name Priority Date/Time Associated Diagnosis Comments US ABDOMEN COMPLETE WITH VASCULAR Routine 07/07/2014 1:58 PM EDT Cirrhosis of liver documented in this encounter Results * US abdomen complete with vascular (07/07/2014 1:58 PM EDT) Anatomical Region Laterality Modality Abdomen Ultrasound 07/07/2014 1:58 PM EDT Narrative 07/07/2014 4:10 PM EDT Abdominal Duplex ? (Signed Final 07/07/2014 04:09 pm) Patient Info ID #: ? [id number] ? : 60 (53 yrs) Name: ? KALLIE SMART ?Visit Date:07/07/2014 01:53 pm Performed By Performed By: ?Yumi Toscano RDMS Attending: ? Rhiannon STOCKTON, Carmen J. Referred By: ? SOFIA DAVIS IMAGE PROCESSING ENGINEER Service(s) Provided ??UABDCVASC - Abdominal Complete Survey with Vascular - 65005, 68784 ??[id number], [id number] Indications ??cirrhosis, HCC surveillance, portal HTN surveillance ----- Liver ----- Right Lobe Length: ?? 22.4 ?? cm Echogenicity/Echotexture: ?? Fatty liver Comment: ?Hepatomegaly Gallbladder Comment: ?Cholecystectomy Biliary Tract Intrahepatic Ducts: ?? Normal Extrahepatic Ducts: ?? Normal Common Duct Size: ? 5.0 ? mm -------- Pancreas -------- Head: ? Normal Tail: ? Poorly visualized due to overlying bowel Body: ? Normal ------ Spleen ------ Size (cm) ? L: 21.0 ?AP: ??21.1 ?TV: ??7.3 Vol (ml): ?1693.6 Comment: ?Splenomegaly Right Kidney Size (cm) ? L: 12.1 ?AP: ??4.5 ? TV: ??5.5 Cortical Thickness: ?Normal Cortical Echogenicity: ?? Normal Hydronephrosis: ?No sonographic evidence Left Kidney Size (cm) ? L: 12.2 ?AP: ??4.4 ? TV: ??4.6 Cortical Thickness: ?Normal Cortical Echogenicity: ?? Normal Hydronephrosis: ?No sonographic evidence ----- Aorta ----- Measurements (cm): Proximal ?AP: ??2.1 Mid ? AP: ??2.0 Distal ?AP: ??1.8 Comment: ?Normal in caliber --- IVC --- Proximal portion, normal in caliber Fluid Collections No ascites seen. Hepatic-Portal Duplex ? PSV ? EDV ? RI ??Waveform ? (cm/s) ??(cm/s) Hepatic Artery: ?? 69.0 ?30.0 ?0.56 ??Patent Right Hepatic ? Patent Vein: Middle Hepatic ?Patent Vein: Left Hepatic ?Patent Vein: Portal Vein At ?28.0 ?Hepatopetal [place]: Main Portal ? 22.0 ?Hepatopetal Vein: Right Portal ?12.0 ?Hepatopetal Vein: Left Portal Vein: 16.0 ?Hepatopetal Splenic Vein At ?? 30.0 ?Hepatopetal [place]: IVC: ?Patent Collaterals: ??Recanalized periumbilical vein Comment: ?Multiple collaterals midline area of pancreas Impression Ultrasound - Abdomen Complete - Summary Enlarged and fatty liver. ??Recanalized umbilical vein. Splenomegaly. S/P cholecystectomy. Normal appearance to the head of the pancreas, with multiple midline collateral vessels. Ultrasound - Vascular evaluation - Summary The hepatic veins, portal veins and hepatic artery are patent with normal directional flow. ??Recanalized umbilical vein. I ??viewed the images and agree with the above interpretation. ?Carmen J MD Rhiannon Electronically Signed Final Report ?? 07/07/2014 04:09 pm Procedure Note Carmen Jurado MD - 07/07/2014 Abdominal Duplex (Signed Final 07/07/2014 04:09 pm) Patient Info ID #: [id number] : 60 (53 yrs) Name: KALLIE SMART Visit Date:07/07/2014 01:53 pm Performed By Performed By: Yumi Toscano RDMS Attending: Carmen Jurado MD Referred By: SOFIA DAVIS APRN Service(s) Provided UABDCVASC - Abdominal Complete Survey with Vascular - [id number], [id number], [id number] Indications cirrhosis, HCC surveillance, portal HTN surveillance ----- Liver ----- Right Lobe Length: 22.4 cm Echogenicity/Echotexture: Fatty liver Comment: Hepatomegaly Gallbladder Comment: Cholecystectomy Biliary Tract Intrahepatic Ducts: Normal Extrahepatic Ducts: Normal Common Duct Size: 5.0 mm -------- Pancreas -------- Head: Normal Tail: Poorly visualized due to overlying bowel Body: Normal ------ Spleen ------ Size (cm) L: 21.0 AP: 21.1 TV: 7.3 Vol (ml): 1693.6 Comment: Splenomegaly Right Kidney Size (cm) L: 12.1 AP: 4.5 TV: 5.5 Cortical Thickness: Normal Cortical Echogenicity: Normal Hydronephrosis: No sonographic evidence Left Kidney Size (cm) L: 12.2 AP: 4.4 TV: 4.6 Cortical Thickness: Normal Cortical Echogenicity: Normal Hydronephrosis: No sonographic evidence ----- Aorta ----- Measurements (cm): Proximal AP: 2.1 Mid AP: 2.0 Distal AP: 1.8 Comment: Normal in caliber --- IVC --- Proximal portion, normal in caliber Fluid Collections No ascites seen. Hepatic-Portal Duplex PSV EDV RI Waveform (cm/s) (cm/s) Hepatic Artery: 69.0 30.0 0.56 Patent Right Hepatic Patent Vein: Middle Hepatic Patent Vein: Left Hepatic Patent Vein: Portal Vein At 28.0 Hepatopetal [place]: Main Portal 22.0 Hepatopetal Vein: Right Portal 12.0 Hepatopetal Vein: Left Portal Vein: 16.0 Hepatopetal Splenic Vein At 30.0 Hepatopetal [place]: IVC: Patent Collaterals: Recanalized periumbilical vein Comment: Multiple collaterals midline area of pancreas Impression Ultrasound - Abdomen Complete - Summary Enlarged and fatty liver. Recanalized umbilical vein. Splenomegaly. S/P cholecystectomy. Normal appearance to the head of the pancreas, with multiple midline collateral vessels. Ultrasound - Vascular evaluation - Summary The hepatic veins, portal veins and hepatic artery are patent with normal directional flow. Recanalized umbilical vein. I viewed the images and agree with the above interpretation. Carmen Jurado MD Electronically Signed Final Report 07/07/2014 04:09 pm Ashley Salomon MD IMG US GEN ORDERABLE S documented in this encounter Visit Diagnoses Diagnosis Cirrhosis of liver Cirrhosis of liver without mention of alcohol documented in this encounter Care Teams Asl Interpreter Relationship Specialty Start Date End Date Jennie Resendiz MD [address] [place] [address] PCP - General 03/06/10 08/27/16 documented as of this encounter
--- OUTSIDE RECORDS SUMMARY | 2024-01-23 00:34 | XMS_ITS | Encounter Summary ---
Author Organization [facility] [place] [address] Care Team Providers Care Piano Technician Name Role Phone Malu Sampson APRN Primary Care Provider [phone] Encounter Details Date Type Department Care Team (Late st Contact Info) Description 06/26/2017 11:30 AM EDT Office [place] [phone] Lina Vogel MD [facility] [place] [address] Lower abdominal pain Social History Tobacco Use Types [...] Sign Reading Time Taken Comments Blood Pressure 136/91 06/26/2017 11:17 AM EDT Pulse 71 06/26/2017 11:17 AM EDT Temperature - - Respiratory Rate - - Oxygen Saturation - - Inhaled Oxygen Concentration - - Weight 110.2 kg (243 lb) 06/26/2017 11:17 AM EDT Height 165.1 cm (5' 5) 06/26/2017 11:17 AM EDT Body Mass Index 40.44 06/26/2017 11:17 AM EDT documented in this encounter Progress Notes * Lina Vogel - 06/26/2017 11:30 AM EDT Images from the original note were not included. [facility] Division of Gastroenterology and Hepatology Outpatient Follow up Visit Reason for Visit: Follow up for HARDEN/MONA cirrhosis ID: Kallie Darling is a 56 y.o. 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 Interval History: - She has had right sided abdominal pain where her liver is and where her appendix as well. She also will have epigastric pain where her hernia - She is having left sided arm pain that she moves the arm she is having pain. She does not know ifshe has that pain. She has not called her PCP. She will not go to [employer]. She is having hematuria. - Her right said pain as well. - She stopped drinking two months ago. - She feels warm and has chills with this as well. She has been cold and covering up more than previously. - When her pain started she has not taken any of the pain medications. Previously, alcohol numbed the pain. - she takes ibuprofen for a headache. - She has been shoveling more. Shoveling makes pain worse. When she tries move furniture around or lift heavy box, the pain gets worse. Walking up the hill makes the pain worse. Warm compresses make the pain ache. Ice pack helps very abhijeet.e She denies jaundice, swelling in legs, abdominal distention, melena, hematochezia, rashes. Review of Systems: 10 point ROS was [...] Outpatient Prescriptions Medication Sig Dispense Refill ??? pantoprazole (PROTONIX) 40 mg Tablet, Delayed Release (E.C.) Take 40 mg by mouth daily. ??? famotidine (PEPCID) 20 mg Tablet Take 20 mg by mouth 2 times daily. ??? rOPINIRole (REQUIP) 0.25 mg Tablet Take 0.25 mg by mouth 3 times daily. ??? famotidine (PEPCID) 40 mg Tablet Take 40 mg by mouth daily. ??? cyanocobalamin 1,000 mcg Tablet 0 ??? [...] Take 300 mg by mouth nightly. ??? levothyroxine (SYNTHROID) 50 mcg Tablet Take 50 mcg by mouth daily. ??? loratadine (CLARITIN) 10 mg Tablet Take 10 mg by mouth daily. ??? citalopram (CELEXA) 20 mg Tablet Take 20 mg by mouth daily. ??? pravastatin (PRAVACHOL) 80 mg Tablet Take 80 mg by mouth every morning. ??? albuterol (PROVENTIL HFA;VENTOLIN HFA) 90 mcg/actuation HFA Aerosol Inhaler Inhale 2 puffs intothe lungs every 4 hours as needed. Use with spacer ??? tiotropium (SPIRIVA) 18 mcg inhalation capsule Inhale 18 mcg into the lungs daily. ??? gabapentin (NEURONTIN) 300 mg capsule Take 300 mg by mouth 2 times daily. ??? lactulose (CHRONULAC) 20 gram/30 mL Solution Take 30 mLs by mouth 2 times daily. (Patient not taking: Reported on 06/26/2017) 1800 mL 11 No current facility-administered medications for this visit. Allergies Allergen Reactions ??? Amoxicillin-Pot Clavulanate Nausea Only ??? Bacitracin Nausea Only ??? Gramicidin D Nausea Only ??? Neomycin Sulfate Nausea Only ??? Polymyxin B Nausea Only ??? Aspirin Nausea And Vomiting ??? Lactose Other (See Comments) GI Upset Physical Examination: BP (!) 136/91 Pulse 71 Ht 165.1 cm (5' 5) Wt 110.2 kg (243 lb) BMI 40.44 kg/m2 General:Pleasant, cooperative, NAD HEENT: NC/AT, anicteric sclera Neck: soft, supple Chest: CTAB, no wheeze, rale or rhonchi CVS:RRR, normal s1/s2, soft diastolic murmur ABD: Obese, soft, NABS, tenderness in RUQ / right sided flank pain with light palpation. Epigastrictenderness with light palpation with positive Carnett's sign. Extremities: No edema, Left shoulder: decrease in abduction and adduction, + Neer sign. Left shoulder no rashes/adenopathy/cords palpated. Normal ROM of R shoulder Neuro: No asterixis, EOMI, CNII-XI intact. 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 She has had long standing right sided abdominal pain, RUQ abdominal pain along with right sided flank pain. Her pain appears to be musculoskeletal in nature, which is supported by positive Carnett's sign along with symptoms worsening when she is shoveling, moving furniture, or getting up from a seated position/sitting up. Her US did not show evidence of ascites or HCC. We discussed that I do not b elieve that her pain is related to a GI cause. I would like for her to establish with a new PCP to discuss this, but I do believe gabapentin would be helpful for her. Additionally, we discussed that she has had a ventral hernia for some time. While she has tenderness there, she has never had evidence of incarceration. I calculated her iglesias risk score shown below, but this does not take into account that she has evidence of portal hypertension with thrombocytopenia and EV seen on EGD. Therefore she would be a high risk surgical candidate. She has a number of other complaints including hematuria and left sided arm/shoulder pain that is worse when she moves her arm and when she woke up along with numbness of her face. My cranial nerve exam did not produce any deficits. We discussed and I encourage her to be evaluated by her PCP or go to the ED for these symptoms. RECOMMENDATIONS: # please see PCP or ED about hematuria and left shoulder pain # gabapentin may be helpful # okay to take acetaminophen up to 2 grams in 24 hr period # portal HTN: Last EGD 2012: Grade I EV on carvedilol # HCC screening: RUQ US [id number], no HCC # HE: no evidence, but does have constipation, recommending a laxative or lactulose 1-2 times dailyto have 2-3 BMs daily # Vaccinations: HAV/HBV +/+ Follow up in 6 months with labs and US before. This case was discussed with Dr. Laguerre. Lina Vogel MD [place] [address] P: [phone] F: [phone] Malu Sampson, RADHA [address], [facility] [address] [place] [address] * Bruna Laguerre MD - 06/26/2017 11:30 AM EDT Attending Addendum: I interviewed and examined the patient with Dr. Vogel in clinic. I confirm the history and oconnell physical findings outlined in this note. The assessment and plan were formulated in discussion with me at the time of this encounter, and I agree with them as documented. Bruna Laguerre MD documented in this encounter Plan of Treatment Upcoming Encounters Date Type Department Care Team (Late st Contact Info) Description 02/27/2024 2:45 PM EST TH Visit (TeleHealth) [place] [address] Lashae Lorenzo MD [facility] [place] [address] documented as of this encounter Visit Diagnoses Diagnosis Lower abdominal pain Abdominal pain, other specified site documented in this encounter Care Teams Piano Technician Relationship Specialty Start Date End Date Malu Sampson APRN PCP - General Family Medicine 08/28/16 09/03/17 documented as of this encounter
--- OUTSIDE RECORDS SUMMARY | 2024-01-23 00:34 | XMS_ITS | Encounter Summary ---
Author Organization [facility] Address [facility] [place] [address] Care Team Providers Care Cribber Name Role Phone Malu Sampson APRN Primary Care Provider [phone] Encounter Details Date Type Department Care Team (Latest Contact Info) Description 08/18/2017 12:05 AM EDT - 08/18/2017 12:09 AM EDT Hospital Encounter Radiology Library at [facility] [place] [address] Doc Lancaster MD [facility] [place] [address] Discharge Disposition: Home Social History Tobacco Use [...] Sig Dispensed Refills Start Date End Date SENNALAX-S 8.6-50 mg Tablet take 2 tablets by mouth at bedtime 0 08/03/2017 12/25/2017 metFORMIN (GLUCOPHAGE) 500 mg Tablet take 1 tablet by mouth twice a day with meals 0 07/30/2017 8 NOVOLOG FLEXPEN U-100 INSULIN Insulin Pen inject subcutaneously three times a day as directed with meals (I... (REFER TO PRESCRIPTION NOTES). 1 07/23/2017 01/09/2023 pantoprazole (PROTONIX) 40 mg Tablet, Delayed Release [...] by mouth 3 times daily as needed. 8 carvedilol (COREG) 6.25 mg TabletIndications:A lcoholic cirrhosis [...] 4 hours as needed. Use with spacer 09/05/19 18 tiotropium (SPIRIVA) 18 mcg inhalation capsule Inhale 18 mcg into the lungs daily. 09/04/2017 gabapentin (NEURONTIN) 300 mg capsule Take 300 mg by mouth 2 times daily. 07/30/2010 10/16/2017 documented as of this encounter Plan of Treatment Upcoming Encounters Date Type Department Care Team (Late st Contact Info) Description 02/27/2024 2:45 PM EST TH Visit (TeleHealth) [place] [address] Lashae Lorenzo MD [facility] [place] [address] documented as of this encounter Procedures Procedure Name Priority Date/Time Associated Diagnosis Comments FILM LIBRARY STORAGE ONLY DX ANKLE Routine 08/18/2017 12:05 AM EDT documented in this encounter Results * Film Library- Storage Only DX Ankle (08/18/2017 12:05 AM EDT) Narrative [facility] - 08/19/2017 9:14 AM EDT This exam is for storage only and is auto-finalizing. Doc Lancaster MD IMG FILM LIBRARY ORD ERABLES [place], [place] documented in this encounter Visit Diagnoses Not on filedocumented in this encounter Care Teams Cribber Relationship Specialty Start Date End Date Malu Sampson APRN PCP - General Family Medicine 08/28/16 09/03/17 documented as of this encounter
--- OUTSIDE RECORDS SUMMARY | 2024-01-23 00:34 | XMS_ITS | Encounter Summary ---
Author Organization [facility] Address [facility] [place] [address] Care Team Providers Care Metal Finisher Name Role Phone Malu Sampson APRN Primary Care Provider [phone] Encounter Details Date Type Department Care Team (Latest Contact Info) Description 06/04/2017 - 06/04/2017 11:59 PM [facility] Hospital Encounter Radiology Library at [facility] [place] [phone] Ana Dias MD [facility] [place] [address] Discharge Disposition: Home Social History Tobacco Use [...] Sig Dispensed Refills Start Date End Date famotidine (PEPCID) 40 mg Tablet Take 40 [...] EST TH Visit (TeleHealth) [place] [address] Lashae Lorenzo MD [facility] [place] [address] documented as of this encounter Procedures Procedure Name Priority Date/Time Associated Diagnosis Comments FILM LIBRARY STORAGE ONLY ULTRASOUND STUDY Routine 06/04/2017 12:00 AM EST documented in this encounter Results * Film Library- Storage Only Ultrasound Study (06/04/2017 12:00 AM EST) Narrative [facility] [place] - 10/17/2017 9:16 PM EDT This exam is for storage only and is auto-finalizing. Ana Dias MD IMG FILM LIBRARY ORDERABLES Performing Organization Address City/State/[facility] Co de Phone Number [place], [place] documented in this encounter Visit Diagnoses Not on filedocumented in this encounter Care Teams Metal Finisher Relationship Specialty Start Date End Date Malu Sampson APRN PCP - General Family Medicine 08/28/16 09/03/17 documented as of this encounter
--- OUTSIDE RECORDS SUMMARY | 2024-01-23 00:34 | XMS_ITS | Encounter Summary ---
[place] [address] Care Team Providers Care Psychiatrist Name Role Phone Malu Sampson APRN Primary Care Provider [phone] Reason for Visit * Reason Onset Date Comments Eye Problem 06/19/2017 Pt would like to schedule appointment to see Dr. Isha pretty. Encounter Details Date Type Department Care Team (Late st Contact Info) Description 06/19/2017 Telephone [place] [phone] Mauricio Fairchild MD [facility] [place] [address] Eye Problem (Pt would like to schedule appointment to see Dr. Isha whalen ) Social History Tobacco Use Types Packs/Day Years [...] encounter Miscellaneous Notes * Telephone Encounter - Mat White - 06/19/2017 2:18 PM EST Kallie Darling called back and 06/26 at 10am works for her. * Telephone Encounter - Lolly Bah COA - 06/19/2017 8:50 AM EST Pt called into triage line. She states that her symptoms of blurry vision in the left eye and intermittent sharp pain in the left eye has not resolved. She would like to see Dr. Vieira as soon as possibleto see if there is any treatment that would help with the pain. I told her that I would talk to thesecretaries and we would call her back to schedule a much sooner appointment. documented in this encounter Plan of Treatment Upcoming Encounters Date Type Department Care Team (Late st Contact Info) Description 02/27/2024 2:45 PM EST TH Visit (TeleHealth) [place] [address] Lashae Lorenzo MD [facility] [place] [address] documented as of this encounter Visit Diagnoses Not on filedocumented in this encounter Care Teams Psychiatrist Relationship Specialty Start Date End Date Malu Sampson APRN PCP - General Family Medicine 08/28/16 09/03/17 documented as of this encounter
--- OUTSIDE RECORDS SUMMARY | 2024-01-23 00:34 | XMS_ITS | Encounter Summary ---
[place] [address] Care Team Providers Care Window Tinter Name Role Phone Jennie Resendiz MD Primary Care Provider [phone] Reason for Visit * Reason Onset Date Comments Other 09/07/2015 Encounter Details Date Type Department Care Team (Late st Contact Info) Description 09/07/2015 Telephone [place] [address] Gary De Leon RN Other Social History Tobacco Use Types Packs/Day Years [...] encounter Miscellaneous Notes * Telephone Encounter - Gary De Leon RN - 09/07/2015 1:40 PM EDT Patient calls When is my CT scan going to be? Reviewed with patient that per Dr. Vogel's note we are waiting to get records of past CT, USand surgical evaluations. Patient states she has no memory of having had a CT done before or of speaking to a surgeon. Does recall seeing Dr. Shannon. Routing to Dr. Vogel documented in this encounter Plan of Treatment Upcoming Encounters Date Type Department Care Team (Late st Contact Info) Description 02/27/2024 2:45 PM EST TH Visit (TeleHealth) [place] [address] Lashae Lorenzo MD [facility] [place] [address] documented as of this encounter Visit Diagnoses Not on filedocumented in this encounter Care Teams Window Tinter Relationship Specialty Start Date End Date Jennie Resendiz MD [address] [place] [address] [address] [place] [address] PCP - General 03/06/10 08/27/16 documented as of this encounter
--- OUTSIDE RECORDS SUMMARY | 2024-01-23 00:34 | XMS_ITS | Encounter Summary ---
[place] [address] Care Team Providers Care Food Production Associate Name Role Phone Jennie Resendiz MD Primary Care Provider [phone] Reason for Visit * Reason Onset Date Comments Prior Authorization 03/22/2015 Encounter Details Date Type Department Care Team (Late st Contact Info) Description 03/22/2015 Tele[place] [address] Paloma Haji CMA GASTROENTEROLOGY DEPT Prior Authorization Social History Tobacco Use Types Packs/Day Years [...] encounter Miscellaneous Notes * Telephone Encounter - Paloma Haji CMA - 03/22/2015 2:04 PM EST Prior Auth Medication name/dose/directions: Carvedilol 6.25 mg by mouth BID Pharmacy Name and phone number: [facility] [address] [phone] Insurance name and phone number: [place] [phone] Insurance ID number:[id number] Faxed to health plan on: 03/22/2015 medications tried and failed: been on this regiment since 2012 Health plan decision: Medication does not require a PA. Already paid claim in place. documented in this encounter Plan of Treatment Upcoming Encounters Date Type Department Care Team (Late st Contact Info) Description 02/27/2024 2:45 PM EST TH Visit (TeleHealth) [place] [address] Lashae Lorenzo MD [facility] [place] [address] documented as of this encounter Visit Diagnoses Not on filedocumented in this encounter Care Teams Food Production Associate Relationship Specialty Start Date End Date Jennie Resendiz MD [facility] [address] [place] [address] PCP - General 03/06/10 08/27/16 documented as of this encounter
--- OUTSIDE RECORDS SUMMARY | 2024-01-23 00:34 | XMS_ITS | Encounter Summary ---
[place] [address] Care Team Providers Care Solutions Sales Consultant Name Role Phone Jennie Resendiz MD Primary Care Provider Encounter Details Date Type Department Care Team (Late st Contact Info) Description 07/07/2014 Orders [place] [address] Naomi Omer, RN Cirrhosis of liver without ascites, unspecified hepatic [...] EST TH Visit (TeleHealth) [place] [address] Lashae Lorenzo MD [facility] [place] [address] (work) documented as of this encounter Results * Prothrombin Time (07/07/2014 2:25 PM EDT) Pathologist [facility] Prothrombin Time 15.3 12.5 - 15.5 sec [facility] Comment: Transfusion Committee Guidelines: INR less than 2.0, PTT less than OR equal to 43.5 seconds, or Fibrinogen greater than or equal to 100 mg/dl indicate adequate procoagulant activity for hemostasis in patients without underlying bleeding disorders. International Normalization Ratio 1.1 0.9 - 1.1 [facility] Blood specimen (specimen) 07/07/2014 2:25 PM EDT 07/07/2014 2:34 PM EDT Narrative Resulting Agency Comment Spec In Lab Timothy Paul MD HEMATOLOGY ORDERABL ES Performing Organization Address [facility] Co de Phone Number [facility] * AFP tumor marker (07/07/2014 2:25 PM EDT) Pathologist [facility] Alpha Fetoprotein 5.1 <=8.3 ng/mL [facility] Blood specimen (specimen) 07/07/2014 2:25 PM EDT 07/07/2014 2:34 PM EDT Narrative Resulting Agency Comment Spec In Lab Timothy Paul MD CHEMISTRY ORDERABLE S Performing Organization Address [facility] Co de Phone Number [facility] * (ABNORMAL) Comprehensive metabolic panel (non-fasting) (07/07/2014 2:25 PM EDT) Pathologist [facility] Glucose 96 60 - 199 mg/dL [facility] Comment:Diabetes: >=200 mg/d L plus symptoms Blood Urea Nitrogen 11 8 - 18 mg/dL [facility] Creatinine 0.77 0.70 - 1.20 mg/dL [facility] Comment: Please note that the pediatric reference intervals supplied above were not validated at [facility]. Results from pediatric patients should be interpreted in conjunction to the patient's age, height and muscle mass. Sodium 136 135 - 145 mmol/L [facility] Potassium 4.1 3.5 - 5.0 mmol/L [facility] Comment: [...] the following links into your internet browser. [email or web address] Blood specimen (specimen) 07/07/2014 2:25 PM EDT 07/07/2014 2:34 PM EDT Narrative Resulting Agency Comment Spec In Lab Timothy Paul MD CHEMISTRY ORDERABLE S [facility] documented in this encounter Visit Diagnoses Diagnosis Cirrhosis of liver without ascites, unspecified hepatic cirrhosis type documented in this encounter Care Teams Solutions Sales Consultant Relationship Specialty Start Date End Date Jennie Resendiz MD [facility] [address] [facility] [address] [place] [address] PCP - General 03/06/10 08/27/16 documented as of this encounter
--- OUTSIDE RECORDS SUMMARY | 2024-01-23 00:34 | XMS_ITS | Encounter Summary ---
[place] [address] Care Team Providers Care Commercial Lines Account Executive Name Role Phone Jennie Resendiz MD Primary Care Provider [phone] Encounter Details Date Type Department Care Team (Late st Contact Info) Description 09/14/2015 Telephone [place] [phone] Lina Vogel MD [facility] [place] [address] Social History Tobacco Use Types Packs/Day Years [...] encounter Miscellaneous Notes * Telephone Encounter - Lina Vogel - 09/14/2015 10:33 AM EDT I attempted to call Kallie back as I have received all of her records including Dr. Shannon's office note and the CT scan. I attempted to call both numbers. The mobile number is not in service and the home number there is no voicemail to leave a message. I would like to tell her that I am not convinced that this tiny ventral hernia that contains fat is the cause of her abdominal pain. I would like to pursue further work up with an endoscopy and also I would like to confirm that she is taking a ppi. documented in this encounter Plan of Treatment Upcoming Encounters Date Type Department Care Team (Late st Contact Info) Description 02/27/2024 2:45 PM EST TH Visit (TeleHealth) [place] [address] Lashae Lorenzo MD [facility] [place] [address] documented as of this encounter Visit Diagnoses Not on filedocumented in this encounter Care Teams Commercial Lines Account Executive Relationship Specialty Start Date End Date Jennie Resendiz MD [address] [place] [address] PCP - General 03/06/10 08/27/16 documented as of this encounter
--- OUTSIDE RECORDS SUMMARY | 2024-01-23 00:34 | XMS_ITS | Encounter Summary ---
Author Organization [facility] [place] [address] Care Team Providers Care Concrete Panel Installer Name Role Phone Malu Sampson APRN Primary Care Provider [phone] Encounter Details Date Type Department Care Team (Latest Contact Info) Description 07/16/2017 - 07/16/2017 11:59 PM EDT Hospital Encounter Radiology Library at [facility] [place] [phone] Natividad Taveras MD [facility] [place] [address] Discharge Disposition: Home Social History Tobacco Use [...] EST TH Visit (TeleHealth) [place] [address] Lashae Lorenzo MD [facility] [place] [address] documented as of this encounter Procedures Procedure Name Priority Date/Time Associated Diagnosis Comments FILM LIBRARY STORAGE ONLY DX CHEST Routine 07/16/2017 12:00 AM EDT documented in this encounter Results * Film Library- Storage Only DX Chest (07/16/2017 12:00 AM EDT) Narrative [facility] - 08/26/2017 5:38 PM EDT This exam is for storage only and is auto-finalizing. L Sulaiman Taveras MD IMG FILM LIBRARY ORD ERABLES Performing Organization Address City/State/[facility] Co de Phone Number [place], [place] documented in this encounter Visit Diagnoses Not on filedocumented in this encounter Care Teams Concrete Panel Installer Relationship Specialty Start Date End Date Malu Sampson APRN PCP - General Family Medicine 08/28/16 09/03/17 documented as of this encounter
--- OUTSIDE RECORDS SUMMARY | 2024-01-23 00:34 | XMS_ITS | Encounter Summary ---
Author Organization [facility] [address] Care Team Providers Care Admissions Supervisor Name Role Phone Malu Sampson APRN Primary Care Provider [phone] Encounter Details Date Type Department Care Team (Late st Contact Info) Description 06/20/2017 Telephone [place] [phone] Lina Vogel MD [facility] GASTRO[place] [address] Social History Tobacco Use Types Packs/Day Years [...] * Telephone Encounter - Lina Vogel - 06/20/2017 3:08 PM EST GI Telephone call: She calls because she is having right sided abdominal pain. We discussed that at our last visit in August 2016, she was also having abdominal pain then as well. She is unable to describe how this pain is different than before. She feels like whole body is going to explode. This am couldn't lift her right leg. When she bends the pain worsens. She does not know what alleviates the pain. Pain is exacerbated with movement. She takes no medications for her pain. She has had an ultrasound or labs performed at [facility]. Will attempt to obtain those labs and schedulea follow up. documented in this encounter Plan of Treatment Upcoming Encounters Date Type Department Care Team (Late st Contact Info) Description 02/27/2024 2:45 PM EST Visit (TeleHealth) [place] [address] Lasahe Lorenzo MD [facility] [place] [address] documented as of this encounter Visit Diagnoses Not on filedocumented in this encounter Care Teams Admissions Supervisor Relationship Specialty Start Date End Date Malu Sampson APRN PCP - General Family Medicine 08/28/16 09/03/17 documented as of this encounter
--- OUTSIDE RECORDS SUMMARY | 2024-01-23 00:34 | XMS_ITS | Encounter Summary ---
[facility] Organization [facility] [place] [address] Care Team Providers Care Plane Tender Name Role Phone Jennie Jackson MD Primary Care Provider [phone] Reason for Visit * Reason Comments Follow-up Encounter Details Date Type Department Care Team (Late st Contact Info) Description 08/30/2015 4:30 PM EDT Office [place] [address] Lina Vogel MD [facility] [place] [address] Hepatic cirrhosis, unspecified hepatic cirrhosis type Social History Tobacco [...] Sign Reading Time Taken Comments Blood Pressure 130/77 08/30/2015 4:29 PM EDT Pulse 69 08/30/2015 4:29 PM EDT Temperature - - Respiratory Rate - - Oxygen Saturation - - Inhaled Oxygen Concentration - - Weight 95.5 kg (210 lb 9.6 oz) 08/30/2015 4:29 P M EDT Height 165.1 cm (5' 5) 08/30/2015 4:29 PM EDT Body Mass Index 35.05 08/30/2015 4:29 PM EDT documented in this encounter Progress Notes * Ashley Salomon MD - 09/11/2015 8:25 AM EDT I have reviewed Dr. Vogel's plan of care and agree with her note. Ashley Salomon MD * Lina Vogel - 08/30/2015 4:39 PM EDT [facility] Division of Gastroenterology and Hepatology Outpatient Follow up Visit Reason for Visit: Follow up for HARDEN/MONA cirrhosis ID: Kallie Darling is a 55 y.o. 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 Interval History: She reports overall she is feeling well. She has been taking meclizine for some dizziness and that has been helpful. She reports that she is moving her bowels 1-2 daily. She drinks once per week occasionally less drinking approximately 3 beers per week. She reports that she has been diagnosed with a ventral hernia and would like to have it repaired, but the surgeon wants to know how well compensated her liver is prior to surgery. She constantly has mid abdominal pain without any alleviating or aggravating symptoms. She denies any fevers, chills, jaundice, swelling in legs, nausea, vomiting, melena, hematochezia. Review of Systems: [...] Outpatient Prescriptions Medication Sig Dispense Refill ??? meclizine (ANTIVERT) 12.5 mg Tablet Take 12.5 mg by mouth 3 times daily as needed. ??? ranitidine (ZANTAC) 300 mg Tablet Take [...] hours as needed. Use with spacer ??? risperidone (RISPERDAL) 1 mg tablet Take 1 mg by mouth 2 times daily. ??? tiotropium (SPIRIVA) 18 mcg inhalation capsule Inhale 18 mcg into the lungs daily. ??? gabapentin (NEURONTIN) 300 mg capsule Take 300 mg by mouth 2 times daily. ??? carvedilol (COREG) 6.25 mg Tablet Take 1 tablet by mouth 2 times daily (with meals). 180 tablet3 No current facility-administered medications for this visit. Allergies Allergen Reactions ??? Amoxicillin-Pot Clavulanate Nausea Only ??? Bacitracin Nausea Only ??? Gramicidin D Nausea Only ??? Neomycin Sulfate Nausea Only ??? Polymyxin B Nausea Only ??? Aspirin Nausea And Vomiting ??? Lactose Other (See Comments) GI Upset Physical Examination: Visit Vitals ??? BP 130/77 (BP Location (NBP): Left arm, Patient Position: Sitting, BP Cuff Sizes: Adult (25-34 cm)) ??? Pulse 69 ??? Ht 165.1 cm (5' 5) ??? Wt 95.5 kg (210 lb 9.6 oz) ??? BMI 35.05 kg/m2 General:Pleasant, cooperative, NAD HEENT: NC/AT, anicteric sclera Neck: soft, supple Chest: CTAB, no wheeze, rale or rhonchi CVS:RRR, normal s1/s2, soft diastolic murmur ABD: Obese, soft, NABS,minimally distended with minimal tenderness epigastrium, unable to appreciate ventral hernia or umbilical hernia Extremities: No edema Neuro: No asterixis Labs: Reviewed in EDH/Scan Docs Lab Results Component Value Date WBC 4.6 01/11/2015 HGB 13.2 01/11/2015 HCT 39.7 01/11/2015 MCV 96.1 (H) 01/11/2015 PLATELET 107 (L) 01/11/2015 Chemistry Component Value Date/Time NA 139 01/11/2015 1407 K 4.3 01/11/2015 1407 CL 100 01/11/2015 1407 CO2 24 01/11/2015 1407 BUN 7 (L) 01/11/2015 1407 CREATININE 0.72 01/11/2015 1407 Component Value Date/Time CALCIUM 11.1 (H) 01/11/2015 1407 ALKPHOS 173 (H) 01/11/2015 1407 AST 64 (H) 01/11/2015 1407 ALT 40 (H) 01/11/2015 1407 BILITOT 0.6 01/11/2015 1407 Lab Results Component Value Date ALT 40 (H) 01/11/2015 AST 64 (H) 01/11/2015 ALKPHOS 173 (H) 01/11/2015 BILITOT 0.6 01/11/2015 Additional Testing: Reviewed available labs, imaging and endoscopy results in EDH/CIS as well as Scan Docs tab. IMPRESSION: Kallie Darling is a 55 y.o. PMH significant for MONA/HARDEN c/b portal HTN: Grade 1 Pilar carvedilol, constipation who comes into clinic for follow up. It has been noted that she has a ventral hernia and she has seen Dr. Shannon in [facility] who per her report is open to repair the hernia, but would like our evaluation. I am unable to appreciate any ventral hernia and it unclear what scan she had and what the results were. The etiology of her abdominal pain is uncertain. Prior to giving a full assessment of her post-operative risk, would appreciate obtaining results. We discussed today that she does have portal hypertension and has an increased risk of hepatic decompensation with surgery so would prefer to confirm etiology of her pain prior to surgery. Again today we discussed with her cirrhosis that she should avoid etoh consumption. She understandsthis and has decreased the amount that she is drinking, but does not completely abstain. We also discussed ongoing weight loss and the importance of it and exercise given that there most likely is a c omponent of HARDEN as well. For her constipation, she is doing well and taking lactulose intermittently. She does not have any signs of encephalopathy. RECOMMENDATIONS: # Obtain outside records regarding CT scan and ultrasound # Obtain outside records with surgeons # portal HTN: Last EGD 2012: Grade I EV on carvedilol, no need for repeat unless decompensation # HCC screening: RUQ US [id number], last one 01/11/15 no lesions, will schedule next one # HE: no evidence, but does have constipation, recommending continuing lactulose 1-2 times daily tohave 2-3 BMs daily # Vaccinations: HAV/HBV +/+ - pneumovax q5 years - yearly influenza vaccine Follow up in 6 months with labs and US before. This case was discussed with Dr. Salomon. Lina Vogel MD [place] [address] P: [phone] F: [phone] CC JENNIE JACKSON MD [address] [place] [address] [address] documented in this encounter Plan of Treatment Upcoming Encounters Date Type Department Care Team (Late st Contact Info) Description 02/27/2024 2:45 PM EST TH Visit (TeleHealth) [place] [address] Lashae Lorenzo MD [facility] [place] [address] documented as of this encounter Procedures Procedure Name Priority Date/Time Associated Diagnosis Comments HEMOGRAM Routine 08/30/2015 5:50 PM EDT Hepatic cirrhosis, unspecified hepatic cirrhosis type DIFFERENTIAL, AUTOMATED Routine 08/30/2015 5:50 PM EDT Hepatic cirrhosis, unspecified hepatic cirrhosis type PROTHROMBIN TIME Routine 08/30/2015 5:50 PM EDT Hepatic cirrhosis, unspecified hepatic cirrhosis type CBC (WITH DIFF) Routine 08/30/2015 5:50 PM EDT Hepatic cirrhosis, unspecified hepatic cirrhosis type HEMOGLOBIN A1C Routine 08/30/2015 5:50 PM EDT Hepatic cirrhosis, unspecified hepatic cirrhosis type LIPID PANEL (REFLEX DIRECT LDL) Routine 08/30/2015 5:50 PM EDT Hepatic cirrhosis, unspecified hepatic cirrhosis type COMPREHENSIVE METABOLIC PANEL Routine 08/30/2015 5:50 PM EDT Hepatic cirrhosis, unspecified hepatic cirrhosis type documented in this encounter Results * Differential, Automated (08/30/2015 5:50 PM EDT) Neutrophil % 45.4 % [facility] Neutrophil Absolute 2.88 1.50 - 6.30 x10(3)/[facility] Lymph % 45.2 % [facility] Lymphocytes Abs 2.9 1.0 - 3.6 x10(3)/[facility] Monocyte % 6.8 % [facility] Monocyte Abs 0.4 0.2 - 1.0 x10(3)/[facility] Eos % 2.2 % [facility] Eosinophils Abs 0.1 0.0 - 0.5 x10(3)/[facility] Basophil % 0.2 % [facility] Baso Absolute 0.0 0.0 - 0.2 x10(3)/[facility] Immature Gran % 0.20 % [facility] Comment: Immature granulocytes(IG's)percentage and absolute count will include metamyelocytes, myelocytes, and promyelocytes. Blood smears from CBCs yielding IG's will be scanned manually for concordance. If this scan disagrees with the automated IG or if promyelocytes are noted, a manual differential will be performed. Immature Gran Absolute 0.01 0.00 - 0.05 x10(3)/[facility] Blood specimen (specimen) 08/30/2015 5:50 PM EDT 08/30/2015 5:56 PM EDT Narrative Resulting Agency Comment Spec In Lab Ashley Salomon MD HEMATOLOGY ORDERABLE S [facility] [address] * (ABNORMAL) Hemogram (08/30/2015 5:50 PM EDT) [facility] White Blood Cell 6.3 4.0 - 10.0 x10(3)/mc L [facility] Red Blood Cell 4.57 3.93 - 5.22 x10(6)/mc L [facility] Hemoglobin 14.0 11.2 - 15.7 gm/dL [facility] Hematocrit 41.7 34.0 - 45.0 % [facility] Mean Cell Volume 91.2 79.0 - 94.0 fL [facility] Mean Cell Hemoglobin 30.6 26.6 - 32.2 pg [facility] Mean Cell Hemoglobin Concentration 33.6 32.0 - 36.5 gm/dL [facility] Platelet 107(L) 145 - 370 x10(3)/mc L [facility] RDW Standard Deviation 44.9 35.0 - 46.0 fL [facility] RDW coefficient of variation 13.7 10.9 - 14.4 % [facility] Mean Platelet Volume 10.6 9.0 - 12.0 fL [facility] Blood specimen (specimen) 08/30/2015 5:50 PM EDT 08/30/2015 5:56 PM EDT Narrative Resulting Agency Comment Spec In Lab Ashley Salomon MD HEMATOLOGY ORDERABLE S [facility] [place] [address] * (ABNORMAL) Comprehensive metabolic panel (non-fasting) (08/30/2015 5:50 PM EDT) [facility] Glucose 97 65 - 199 mg/dL [facility] Comment:Diabetes: >=200 mg/d L plus symptoms Blood Urea Nitrogen 11 8 - 18 mg/dL [facility] Creatinine 0.76 0.70 - 1.20 mg/dL [facility] Comment: Please note that the pediatric reference intervals supplied above were not validated at [facility]. Results from pediatric patients should be interpreted in conjunction to the patient's age, height and muscle mass. Sodium 138 135 - 145 mmol/L [facility] Potassium 4.1 3.5 - 5.0 mmol/L [facility] Comment: Please note: ??Patients with WBC >100,000 may have falsely elevated Potassium levels. ??For accurate Potassium quantification in these patients send serum separator tube (gold top) for subsequent determinations. ??Contact the Clinical Chemistry Laboratory if there are any questions. Chloride 101 98 - 107 mmol/L [facility] Carbon Dioxide 25 22 - 31 mmol/L [facility] Anion Gap 12 5 - 15 mmol/L [facility] Calcium 10.9(H) 8.5 - 10.5 mg/dL [facility] Protein, Total 7.5 6.1 - 8.0 gm/dL [facility] Albumin 4.6 3.2 - 5.2 gm/dL [facility] Aspartate Aminotransferase 34(H) 0 - 30 unit/L [facility] Alanine Aminotransferase 19 0 - 30 unit/L [facility] Alkaline Phosphatase 138(H) 40 - 104 unit/L [facility] Bilirubin, Total 0.4 0.2 - 1.3 mg/dL [facility] Bilirubin, Direct 0.1 0.0 - 0.3 mg/dL [facility] Est Glomerular Filtration Rate >60 >=60 [facility] Comment: This estimated GFR (eGFR) value was [...] the following links into your internet browser. [email or web address] Blood specimen (specimen) 08/30/2015 5:50 PM EDT 08/30/2015 5:56 PM EDT Narrative Resulting Agency Comment Spec In Lab Ashley Salomon MD CHEMISTRY ORDERABLES Performing Organization Address [facility] de Phone Number [facility] [place] [address] * (ABNORMAL) Prothrombin Time (08/30/2015 5:50 PM EDT) Prothrombin Time 15.3(H) 12.0 - 15.0 sec [facility] Comment: An INR <2.0 indicates adequate procoagulant activity for hemostasis in most patients without underlying bleeding disorders, though the INR may not adequately reflect hemostatic capacity in patients with liver disease and synthetic impairment. The recommended target INR range for therapeutic anticoagulation is 2.0 ? 3.0 for most applications, though lower and higher ranges may be appropriate depending on clinical circumstances. International Normalization Ratio 1.2(H) 0.9 - 1.1 [facility] Blood specimen (specimen) 08/30/2015 5:50 PM EDT 08/30/2015 5:56 PM EDT Narrative Resulting Agency Comment Spec In Lab Ashley Salomon MD HEMATOLOGY ORDERABLE S Performing Organization Address [facility] de Phone Number [facility] [place] [address] * (ABNORMAL) Lipid panel (fasting) (08/30/2015 5:50 PM EDT) Cholesterol, Total 161 <=199 mg/dL [facility] Comment: Recommendations of the NCEP Adult Treatment Panel for the following risk cutoff thresholds for the [place] population: Desirable: <200 mg/dL Borderline High: 200-239 mg/dL High: > or = 240 mg/dL Triglyceride 157(H) <=149 mg/dL [facility] Comment: Reference Range: Normal triglycerides: ??<150 mg/dL Borderline high: ??150-199 mg/dL High: ??200-499 mg/dL Very high: ??>cy=455 mg/dL YAMILEX 2001; 285(19):1409-2157 HDL Cholesterol 39(L) >=40 mg/dL [facility] Comment: Reference range: ??Low HDL: ?? < 40 mg/dL ??Normal: ?40-60 mg/dL ??Desirable: > 60 mg/dL YAMILEX 2001; 285(19):0872-4494 LDL Cholesterol 91 <=99 mg/dL [facility] Comment: Reference range: ?? Optimal: ?<100 mg/dL ?? Near Optimal/Above Optimal: ?? 100-129 mg/dL ?? Borderline high: ?130-159 mg/dL ?? High: ? 160-189 mg/dL ?? Very high: ?>eb=369 mg/dL YAMILEX 2001: 285(19):8197-5174 Cholesterol/HDL Ratio 4.1 ratio [facility] Comment: A Cholesterol to HDL ratio below 4:1 is desirable. ??Studies suggest that increased CAD risk occurs at ratios above 5 for females and above 6 for men. ? Citizen Of [place] Heart Association ??(http://www.americanheart.org) ? Sherry Int Med, 1994; 121:641 ? AM J Med, 1998; 105(1A):48S Blood specimen (specimen) 08/30/2015 5:50 PM EDT 08/30/2015 5:56 PM EDT Narrative Resulting Agency Comment Spec In Lab Ashley Salomon MD CHEMISTRY ORDERABLES [facility] [place] [address] * Hemoglobin A1c (08/30/2015 5:50 PM EDT) Hemoglobin A1c 5.3 4.3 - 5.6 % [facility] Comment: Reference Range: 4.3 - 5.6% [...] Mellitus, Diabetes Care 2013; 36: Suppl. 1, S67-74 Estimated Average Glucose 105 mg/dL [facility] Comment: eAG equivalents for HbA1c percentages: HbA1c(%) ?eAG(mg/dL) 6.0 ?126 6.5 ?140 7.0 ?154 7.5 ?169 8.0 ?183 8.5 ?197 9.0 ?212 9.5 ?226 10.0 ? 240 Limitations: The eAG calculation has not been validated on women, individuals below 18 years old and above 70 years old, and individuals with hemoglobinopathies. Additional resources are available on the ADA website: [email or web address].[email or web address] Rg ADDISON, Alva Kelelr, Saran R, et al. ??Translating the A1C assay into estimated average glucose values. ??Diabetes Care 2008:31(8):7450-0688. Blood specimen (specimen) 08/30/2015 5:50 PM EDT 08/30/2015 5:56 PM EDT Narrative Resulting Agency Comment Spec In Lab Ashley Salomon MD CHEMISTRY ORDERABLES [facility] [place] [address] documented in this encounter Visit Diagnoses Diagnosis Hepatic cirrhosis, unspecified hepatic cirrhosis type documented in this encounter Care Teams Plane Tender Relationship Specialty Start Date End Date Jennie Jackson MD [address] [place] [address] PCP - General 03/06/10 08/27/16 documented as of this encounter
--- OUTSIDE RECORDS SUMMARY | 2024-01-23 00:34 | XMS_ITS | Encounter Summary ---
[place] [address] Care Team Providers Care Mutual Funds Agent Name Role Phone Jennie Resendiz MD Primary Care Provider [phone] Encounter Details Date Type Department Care Team (Latest Contact Info) Description 01/11/2015 1:15 PM EDT - 01/11/2015 1:55 PM EDT Hospital [place] [address] Cirrhosis of liver without ascites, unspecified hepatic [...] EST TH Visit (TeleHealth) [place] [address] Lashae Lorenzo MD [facility] [place] [address] documented as of this encounter Procedures Procedure Name Priority Date/Time Associated Diagnosis Comments US ABDOMEN COMPLETE Routine 01/11/2015 1 :44 PM EDT Cirrhosis of liver without ascites, unspecified hepatic cirrhosis type documented in this encounter Results * US abdomen complete (01/11/2015 1:44 PM EDT) Anatomical Region Laterality Modality Abdomen, Vascular Ultrasound 01/11/2015 1:44 PM EDT Narrative 01/11/2015 1:52 PM EDT Abdominal ?(Signed Final 01/11/2015 01:52 pm) Patient Info ID #: ? [id number] ?: ??[birth year] (54 yrs) Name: ? KALLIE SMART ? Visit Date: 01/11/2015 01:41 pm Performed By Performed By: ? Precious Oliveros RDMS Attending: ?Isiah STOCKTON, Cornelius Harris Referred By: ?ZEFERINO ROSALES MD Service(s) Provided ??[facility] - Abdominal Complete Survey - [id number] ? [id number] Indications ??cirrhosis, screen for hcc Comparison US [...] 01/11/2015 01:52 pm) Patient Info ID #: [id number] : 60 (54 yrs) Name: KALLIE SMART Visit Date: 01/11/2015 01:41 pm Performed By Performed By: Precious Oliveros RDMS Attending: Cornelius Joyce MD Referred By: ZEFERINO ROSALES MD Service(s) Provided [facility] - Abdominal Complete Survey - [id number] Indications cirrhosis, screen for hcc Comparison US [...] Signed Final Report 01/11/2015 01:52 pm Zeferino Rosales MD IMG US GEN ORDERABL ES documented in this encounter Visit Diagnoses Diagnosis Cirrhosis of liver without ascites, unspecified hepatic cirrhosis type documented in this encounter Care Teams Mutual Funds Agent Relationship Specialty Start Date End Date Jennie Resendiz MD [address] [place] [address] PCP - General 03/06/10 08/27/16 documented as of this encounter
--- OUTSIDE RECORDS SUMMARY | 2024-01-23 00:34 | XMS_ITS | Encounter Summary ---
Author Organization [facility] Address [facility] [place] [address] Care Team Providers Care Racket Stringer Name Role Phone Malu Sampson APRN Primary Care Provider [phone] Encounter Details Date Type Department Care Team (Latest Contact Info) Description 08/18/2017 12:10 AM EDT - 08/18/2017 11:59 PM EDT Hospital Encounter Radiology Library at [facility], [place] [phone] Doc Lancaster MD [facility] [place] [address] Discharge Disposition: Home Social History Tobacco Use [...] EST TH Visit (TeleHealth) [place] [address] Lashae Lorenzo MD [facility] [place] [address] documented as of this encounter Procedures Procedure Name Priority Date/Time Associated Diagnosis Comments FILM LIBRARY STORAGE ONLY DX FOOT Routine 08/18/2017 12:10 AM EDT documented in this encounter Results * Film Library- Storage Only DX Foot (08/18/2017 12:10 AM EDT) Narrative [facility] - 08/19/2017 9:15 AM EDT This exam is for storage only and is auto-finalizing. Doc Lancaster MD IMG FILM LIBRARY ORD ERABLES [place], [place] documented in this encounter Visit Diagnoses Not on filedocumented in this encounter Care Teams Racket Stringer Relationship Specialty Start Date End Date Malu Sampson APRN PCP - General Family Medicine 08/28/16 09/03/17 documented as of this encounter
--- OUTSIDE RECORDS SUMMARY | 2024-01-23 00:34 | XMS_ITS | Encounter Summary ---
Author Organization [facility] Address [facility] [place] [address] Care Team Providers Care Shelter Director Name Role Phone Jennie Resendiz MD Primary Care Provider [phone] Encounter Details Date Type Department Care Team (Latest Contact Info) Description 01/11/2015 1:56 PM EDT - 01/11/2015 11:59 PM EDT Hospital [place] [phone] Timothy Paul MD [facility] [place] [address] Cirrhosis of liver without ascites, unspecified hepatic [...] Sig Dispensed Refills Start Date End Date ranitidine (ZANTAC) 300 mg Tablet Take 300 mg by mouth nightly. 09/04/2017 omeprazole (PRILOSEC) 20 mg Capsule, Delayed Release(E.C.) Take 20 mg by mouth daily. 06/26/2017 carvedilol (COREG) 6.25 mg TabletIndications:Alcoh olic cirrhosis of liver without ascites Take 1 tablet by mouth 2 times daily (with meals). 60 tablet 3 01/11/2015 03/20/2015 levothyroxine (SYNTHROID) 50 mcg Tablet Take 50 [...] EST TH Visit (TeleHealth) [place] [phone] Lashae Lorenzo MD [facility] [place] [address] documented as of this encounter Procedures Procedure Name Priority Date/Time Associated Diagnosis Comments HEMOGRAM Routine 01/11/2015 2:07 PM EDT Cirrhosis of liver without ascites, unspecified hepatic cirrhosis type DIFFERENTIAL, AUTOMATED Routine 01/11/2015 2:07 PM EDT Cirrhosis of liver without ascites, unspecified hepatic cirrhosis type AFP TUMOR MARKER Routine 01/11/2015 2:07 PM EDT Cirrhosis of liver without ascites, unspecified hepatic cirrhosis type PROTHROMBIN TIME Routine 01/11/2015 2:07 PM EDT Cirrhosis of liver without ascites, unspecified hepatic cirrhosis type CBC (WITH DIFF) Routine 01/11/2015 2:07 PM EDT Cirrhosis of liver without ascites, unspecified hepatic cirrhosis type COMPREHENSIVE METABOLIC PANEL Routine 01/11/2015 2:07 PM EDT Cirrhosis of liver without ascites, unspecified hepatic cirrhosis type documented in this encounter Results * Differential, Automated (01/11/2015 2:07 PM EDT) Neutrophil % 55.3 % CERNER MILLENNIUM Neutrophil Absolute 2.55 1.50 - 6.30 x10(3)/mcL CERNER MILLENNIUM Lymph % 38.2 % CERNER MILLENNIUM Lymphocytes Abs 1.8 1.0 - 3.6 x10(3)/mcL CERNER MILLENNIUM Monocyte % 5.0 % CERNER MILLENNIUM Monocyte Abs 0.2 0.2 - 1.0 x10(3)/mcL CERNER MILLENNIUM Eos % 1.5 % CERNER MILLENNIUM Eosinophils Abs 0.1 0.0 - 0.5 x10(3)/mcL CERNER MILLENNIUM Basophil % 0.0 % CERNER MILLENNIUM Baso Absolute 0.0 0.0 - 0.2 x10(3)/mcL CERNER MILLENNIUM Immature Gran % 0.00 % CERN ER MILLENNIUM Comment: Immature granulocytes(IG's)percentage and absolute count will include metamyelocytes, myelocytes, and promyelocytes. Blood smears from CBCs yielding IG's will be scanned manually for concordance. If this scan disagrees with the automated IG or if promyelocytes are noted, a manual differential will be performed. Immature Gran Absolute 0.00 0.00 - 0.05 x10(3)/mcL CERNER MILLENNIUM Blood specimen (specimen) 01/11/2015 2:07 PM EDT 01/11/2015 2:13 PM EDT Narrative Resulting Agency Comment Spec In Lab Timothy Paul MD HEMATOLOGY ORDERABL ES CERNER MILLENNIUM * (ABNORMAL) Hemogram (01/11/2015 2:07 PM EDT) White Blood Cell 4.6 4.0 - 10.0 x10(3)/mc L CERNER MILLENNIUM Red Blood Cell 4.13 3.93 - 5.22 x10(6)/mc L CERNER MILLENNIUM Hemoglobin 13.2 11.2 - 15.7 gm/dL CERNER MILLENNIUM Hematocrit 39.7 34.0 - 45.0 % CERNER MILLENNIUM Mean Cell Volume 96.1(H) 79.0 - 94.0 fL CERNER MILLENNIUM Mean Cell Hemoglobin 32.0 26.6 - 32.2 pg CERNER MILLENNIUM Mean Cell Hemoglobin Concentration 33.2 32.0 - 36.5 gm/dL CERNER MILLENNIUM Platelet 107(L) 145 - 370 x10(3)/mc L CERNER MILLENNIUM RDW Standard Deviation 47.6(H) 35.0 - 46.0 fL CERNER MILLENNIUM RDW coefficient of variation 13.7 10.9 - 14.4 % CERNER MILLENNIUM Mean Platelet Volume 10.5 9.0 - 12.0 fL CERNER MILLENNIUM Blood specimen (specimen) 01/11/2015 2:07 PM EDT 01/11/2015 2:13 PM EDT Narrative Resulting Agency Comment Spec In Lab Timothy Paul MD HEMATOLOGY ORDERABL ES CERNER AILYNENNIUM * AFP tumor marker (01/11/2015 2:07 PM EDT) Alpha Fetoprotein 4.0 <=8.3 ng/mL CERNER MILLENNIUM Blood specimen (specimen) 01/11/2015 2:07 PM EDT 01/11/2015 2:13 PM EDT Narrative Resulting Agency Comment Spec In Lab Timothy Paul MD CHEMISTRY ORDERABLE S Performing Organization Address [facility] Co de Phone Number LILLIE HUIZAR * (ABNORMAL) Prothrombin Time (01/11/2015 2:07 PM [...] MD HEMATOLOGY ORDERABL ES Performing Organization Address [facility] Co de Phone Number LILLIE HUIZAR * (ABNORMAL) Comprehensive metabolic panel (non-fasting) (01/11/2015 2:07 PM EDT) Glucose 115 65 - 199 mg/dL CERNER MILLENNIUM Comment:Diabetes: >=200 mg/d L plus symptoms Blood Urea Nitrogen 7(L) 8 - 18 mg/dL CERNER MILLENNIUM Creatinine 0.72 0.70 - 1.20 mg/dL CERNER MILLENNIUM Comment: Please note that the pediatric reference intervals supplied above were not validated at [facility] [place] Results from pediatric patients [...] the following links into your internet browser. [email or web address] Blood specimen (specimen) 01/11/2015 2:07 PM EDT 01/11/2015 2:13 PM EDT Narrative Resulting Agency Comment Spec In Lab Timothy Paul MD CHEMISTRY ORDERABLE S CERNER MILLENNIUM documented in this encounter Visit Diagnoses Diagnosis Cirrhosis of liver without ascites, unspecified hepatic cirrhosis type documented in this encounter Care Teams Shelter Director Relationship Specialty Start Date End Date Jennie Resendiz MD [address] [place] [address] PCP - General 03/06/10 08/27/16 documented as of this encounter
--- OUTSIDE RECORDS SUMMARY | 2024-01-23 00:34 | XMS_ITS | Encounter Summary ---
Author Organization [facility] Address [facility] [place] [address] Care Team Providers Care Motorsports Technician Name Role Phone Malu Sampson APRN Primary Care Provider [phone] Encounter Details Date Type Department Care Team (Latest Contact Info) Description 08/18/2017 - 08/18/2017 12:04 AM EDT Hospital Encounter Radiology Library at [facility] [place] [phone] Doc Lancaster MD [facility] [place] [address] Discharge Disposition: Home Social History Tobacco Use [...] hours as needed. Use with spacer 09/05/19 tiotropium (SPIRIVA) 18 mcg inhalation capsule Inhale 18 mcg into the lungs daily. 09/04/2017 gabapentin (NEURONTIN) 300 mg capsule Take 300 mg by mouth 2 times daily. 07/30/2010 10/16/2017 documented as of this encounter Plan of Treatment Upcoming Encounters Date Type Department Care Team (Late st Contact Info) Description 02/27/2024 2:45 PM EST TH Visit (TeleHealth) [place] [address] Lashae Lorenzo MD [facility] [place] [address] documented as of this encounter Procedures Procedure Name Priority Date/Time Associated Diagnosis Comments FILM LIBRARY STORAGE ONLY CT HEAD Routine 08/18/2017 12:00 AM EDT documented in this encounter Results * Film Library- Storage Only CT Head (08/18/2017 12:00 AM EDT) Narrative [facility] - 08/19/2017 9:11 AM EDT This exam is for storage only and is auto-finalizing. Doc Lancaster MD IMG FILM LIBRARY ORD ERABLES [place], [place] documented in this encounter Visit Diagnoses Not on filedocumented in this encounter Care Teams Motorsports Technician Relationship Specialty Start Date End Date Malu Sampson APRN PCP - General Family Medicine 08/28/16 09/03/17 documented as of this encounter
--- OUTSIDE RECORDS SUMMARY | 2024-01-23 00:34 | XMS_ITS | Encounter Summary ---
Author Organization [facility] [place] [address] Care Team Providers Care Moderate Needs Teacher Name Role Phone Malu Sampson APRN Primary Care Provider [phone] Reason for Visit * Reason Comments Procedure Pt here for GVF toda y Encounter Details Date Type Department Care Team (Late st Contact Info) Description 05/16/2017 10:00 AM EST Office Visit [place] [address] Mauricio Fairchild MD [facility] [place] [address] Visual disturbances Social History Tobacco Use Types Packs/Day Years [...] Progress Notes * Mauricio Greenwood MD - 05/16/2017 10:00 AM EST GVF visit only documented in this encounter Plan of Treatment Upcoming Encounters Date Type Department Care Team (Late st Contact Info) Description 02/27/2024 2:45 PM EST TH Visit (TeleHealth) [place] [address] Lashae Lorenzo MD [facility] DR [place] [address] documented as of this encounter Procedures Procedure Name Priority Date/Time Associated Diagnosis Comments GOLDMANN VISUAL FIELD - EXTENDED - OU- BOTH EYES Routine 05/16/2017 3:06 PM EST Visual disturbances documented in this encounter Results * GOLDMANN VISUAL FIELD - EXTENDED - OU- BOTH EYES (05/16/2017 3:06 PM EST) Anatomical Region Laterality Modality Other Narrative 05/16/2017 3:06 PM EST Poor reliability, poor fixation, did not correspond to clinical examination or optic nerve examination Mauricio Fairchild MD OPHTHALMOLOGY SE RVICES ORDERABLES documented in this encounter Visit Diagnoses Diagnosis Visual disturbances Unspecified visual disturbance documented in this encounter Care Teams Moderate Needs Teacher Relationship Specialty Start Date End Date Malu Sampson APRN PCP - General Family Medicine 08/28/16 09/03/17 documented as of this encounter
--- OUTSIDE RECORDS SUMMARY | 2024-01-23 00:34 | XMS_ITS | Encounter Summary ---
Author Organization [facility] [place] [address] Care Team Providers Care Metalsmith Name Role Phone Jennie Jackson MD Primary Care Provider [phone] Reason for Visit * Reason Comments Follow-up Encounter Details Date Type Department Care Team (Late st Contact Info) Description 01/11/2015 3:00 PM EDT [place] [phone] CLINIC, DR CLOVER Vogel, Lina Henson MD [facility] [place] [address] Alcoholic cirrhosis of liver without ascites Social [...] Sign Reading Time Taken Comments Blood Pressure 124/72 01/11/2015 2:27 PM EDT Pulse 76 01/11/2015 2:27 PM EDT Temperature - - Respiratory Rate - - Oxygen Saturation - - Inhaled Oxygen Concentration - - Weight 103.4 kg (228 lb) 01/11/2015 2:27 PM EDT Height 165.1 cm (5' 5) 01/11/2015 2:27 PM EDT Body Mass Index 37.94 01/11/2015 2:27 PM EDT documented in this encounter Patient Instructions * Patient Instructions* Lina Vogel - 01/11/2015 3:03 PM EDT You came in to clinic for follow up of your cirrhosis (scarring of the liver) from your alcohol andsome from being overweight. We reviewed your liver ultrasound today and there was NO evidence of liver cancer, but we will need to continue getting ultrasounds every 6 months along with your lab work. To help with this: 1. STOP DRINKING, continue with your weight loss 2. Start taking lactulose twice a day 3. Take carvedilol 4. Follow up with me in 6 months. documented in this encounter Progress Notes * Ashley Salomon MD - 01/19/2015 4:50 PM EDT I have reviewed Dr. Vogel's plan of care and agree with her note. Ashley Salomon MD * Lina Vogel - 01/11/2015 2:39 PM EDT [facility] Division of Gastroenterology and Hepatology Outpatient Follow up Visit Reason for Visit: Follow up for HARDEN/MONA cirrhosis Referred by Jennie Jackson ID: Kallie Darling is a 54 y.o. 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 Interval History: Walking everyday for past summer. She walks at least quarter mile to 1/2 mile per day. Lost approximately 10 pounds currently and is working on eating a better diet as well. Taking lactulose everydayonce per day and having 1 nonbloody, no melena BM daily. She does report some abdominal bloating, but otherwise does not have any symptoms. No nausea, vomiting, diarrhea, constipation, confusion, LE edema, increasing abdominal girth. Review of Systems: 10 point ROS was [...] 08/21/12. Poor prep. Repeated 2013 with TA 4. HCC surveillance - Ultrasound 01/11/2015, no liver masses 5. Pneumovax - administered 05/06/13 6. Influenza Vaccine - administered 05/06/13 Social History: Drinks 1-2 tall boys (24 ounces) on Friday/Friday. Smokes 1/2 pack per day. Family History: No family history of Liver disease. Current Outpatient Prescriptions Medication Sig Dispense Refill ??? ranitidine (ZANTAC) 300 mg Tablet Take 300 mg by mouth nightly. ??? omeprazole (PRILOSEC) 20 mg Capsule, Delayed Release(E.C.) Take 20 mg by mouth daily. ??? citalopram (CELEXA) [...] mg by mouth 2 times daily. ??? levothyroxine (SYNTHROID) 50 mcg Tablet Take 50 mcg by mouth daily. ??? loratadine (CLARITIN) 10 mg Tablet Take 10 mg by mouth daily. ??? carvedilol (COREG) 6.25 mg tablet Take 1 tablet by mouth 2 times daily (with meals). 60 tablet 3 ??? esomeprazole (NEXIUM) 40 mg capsule Take 40 mg by mouth daily. No current facility-administered medications for this visit. Allergies Allergen Reactions ??? Amoxicillin-Pot Clavulanate Nausea Only ??? Bacitracin Nausea Only ??? Gramicidin D Nausea Only ??? Neomycin Sulfate Nausea Only ??? Polymyxin B Nausea Only ??? Aspirin Nausea And Vomiting ??? Lactose Other (See Comments) GI Upset Physical Examination: BP 124/72 mmHg Pulse 76 Ht 165.1 cm (5' 5) Wt 103.42 kg (228 lb) BMI 37.94 kg/m2 General:Pleasant, cooperative, NAD HEENT: NC/AT, anicteric sclera Neck: soft, supple Chest: CTAB, no wheeze, rale or rhonchi CVS:RRR, normal s1/s2, soft diastolic murmur ABD: Obese, soft, NABS,minimally distended with minimal tenderness in RLQ, No hepatosplenomegaly appreciated Extremities: No edema Neuro: No asterixis Labs: Reviewed in EDH/Scan Docs Lab Results Component Value Date WBC 4.6 01/11/2015 HGB 13.2 01/11/2015 HCT 39.7 01/11/2015 MCV 96.1* 01/11/2015 PLATELET 107* 01/11/2015 Chemistry Component Value Date/Time NA 136 07/07/2014 1425 K 4.1 07/07/2014 1425 CL 97* 07/07/2014 1425 CO2 25 07/07/2014 1425 BUN 11 07/07/2014 1425 CREATININE 0.77 07/07/2014 1425 Component Value Date/Time CALCIUM 11.0* 07/07/2014 1425 ALKPHOS 161* 07/07/2014 1425 AST 77* 07/07/2014 1425 ALT 46* 07/07/2014 1425 BILITOT 0.6 07/07/2014 1425 Lab Results Component Value Date ALT 46* 07/07/2014 AST 77* 07/07/2014 ALKPHOS 161* 07/07/2014 BILITOT 0.6 07/07/2014 Additional Testing: Reviewed available labs, imaging and endoscopy results in EDH/CIS as well as Scan Docs tab. IMPRESSION: Kallie Darling is a 54 y.o. PMH significant for MONA/HARDEN c/b portal HTN: Grade 1 Pilar carvedilol, constipation who comes into clinic for follow up. The results of her ultrasound and available labs were reviewed with here We discussed at length about her etoh consumption and that she should not have alcohol given her liver disease. She understands this and reports that she is working hard at quitting, but does like my beer. We also discussed ongoing weight loss and the importance of it given that there most likelyis a component of HARDEN as well. Constipation we discussed taking the lactulose, but did discuss that this may worsening some of theabdominal bloating that she is having. We discussed low FODMAP diet, but if she were to continue with these symptoms we could switch her to miralax at our next visit. RECOMMENDATIONS: # pHTN: Last EGD 2012: Grade I EV on carvedilol, no need for repeat unless decompensation # HCC screening: RUQ US [id number], last one 01/11/15 no lesions # HE: no evidence, but does have constipation, recommending continuing lactulose 1-2 times daily tohave 2-3 BMs daily # Vaccinations: HAV/HBV +/+ Follow up in 6 months with labs and US before. This case was discussed with Dr. Salomon. Lina Vogel MD [place] [address] P: [phone] F: [phone] CC JENNIE JACKSON MD (General) [address] [place] [address] documented in this encounter Plan of Treatment Upcoming Encounters Date Type Department Care Team (Late st Contact Info) Description 02/27/2024 2:45 PM EST TH Visit (TeleHealth) [place] [address] Lashae Lorenzo MD [facility] [place] [place] [address] documented as of this encounter Visit Diagnoses Diagnosis Alcoholic cirrhosis of liver without ascites Alcoholic cirrhosis of liver documented in this encounter Care Teams Metalsmith Relationship Specialty Start Date End Date Jennie Jackson MD [address] [place] [address] PCP - General 03/06/10 08/27/16 documented as of this encounter
--- OUTSIDE RECORDS SUMMARY | 2024-01-23 00:34 | XMS_ITS | Encounter Summary ---
Author Organization [facility] [place] [address] Care Team Providers Care Er Rn Name Role Phone Malu Sapmson APRN Primary Care Provider [phone] Encounter Details Date Type Department Care Team (Latest Contact Info) Description 07/17/2017 - 07/17/2017 11:59 PM EDT Hospital Encounter Radiology Library at [facility] [place] [phone] Natividad Taveras MD [facility] [place] [address] Discharge Disposition: Home Social History Tobacco Use [...] EST TH Visit (TeleHealth) [place] [address] Lashae Lorenzo MD [facility] [place] [address] documented as of this encounter Procedures Procedure Name Priority Date/Time Associated Diagnosis Comments FILM LIBRARY STORAGE ONLY CT CHEST Routine 07/17/2017 12:00 AM EDT documented in this encounter Results * Film Library- Storage Only CT Chest (07/17/2017 12:00 AM EDT) Narrative [facility] - 08/26/2017 5:39 PM EDT This exam is for storage only and is auto-finalizing. L Sulaiman Taveras MD IMG FILM LIBRARY ORD ERABLES Performing Organization Address City/State/[facility] Co de Phone Number [place], [place] documented in this encounter Visit Diagnoses Not on filedocumented in this encounter Care Teams Er Rn Relationship Specialty Start Date End Date Malu Sampson APRN PCP - General Family Medicine 08/28/16 09/03/17 documented as of this encounter
--- OUTSIDE RECORDS SUMMARY | 2024-01-23 00:35 | XMS_ITS | Encounter Summary ---
Author Organization [facility] [place] [address] Care Team Providers Care Precision Dyer Name Role Phone Jennie Resendiz MD Primary Care Provider [phone] Reason for Referral * Surgical (Routine) - Closed Specialty Diagnoses / Procedures Referred By Nicol sparks Referred To Contact General Surgery Diagnoses Hyperparathyroidism Vincenzo Rhodes MD [facility] [place] [address] Bright Woods MD [facility] [place] [address] Referral ID Status Reason Start Date Expiration Date V isits Requested Visits Authorized [id number] Closed Specialty Service Requested 12/08/2012 06/06/2013 1 1 Encounter Details Date Type Department Care Team (Latest Contact Info) Description 12/08/2012 Orders [place] [address] Vincenzo Rhodes MD [facility] [place] [address] Hyperparathyroidism (Primary Dx) Social History Tobacco Use Types Packs/Day Years Used Date Smoking Tobacco: Every Day Cigarettes 0.3 30 Alcohol Use Standard Drinks/Week Comments No 0 [...] EST TH Visit (TeleHealth) [place] [address] Lashae Lorenzo MD [facility] [place] [address] Scheduled Referrals Name Type Priority Associated Diagnoses Orde r Schedule Referral to General Surgery Outpatient Referral Routine Hyperparathyroidism Ordered: 12/08/2012 documented as of this encounter Visit Diagnoses Diagnosis Hyperparathyroidism- Primary Hyperparathyroidism, unspecified documented in this encounter Care Teams Precision Dyer Relationship Specialty Start Date End Date Jennie Resendiz MD [address] [place] [address] PCP - General 03/06/10 08/27/16 documented as of this encounter
--- OUTSIDE RECORDS SUMMARY | 2024-01-23 00:35 | XMS_ITS | Encounter Summary ---
Author Organization [facility] [place] [address] Care Team Providers Care Doctor Podiatric Medicine Name Role Phone Jennie Resendiz MD Primary Care Provider [phone] Encounter Details Date Type Department Care Team (Late st Contact Info) Description 12/01/2013 Orders [place] [address] Lupe Odom RN Social History Tobacco Use Types Packs/Day [...] EST TH Visit (TeleHealth) [place] [address] Lashae Lorenzo MD [facility] [place] [address] documented as of this encounter Visit Diagnoses Not on filedocumented in this encounter Care Teams Doctor Podiatric Medicine Relationship Specialty Start Date End Date Jennie Resendiz MD [facility] [address] [facility] [address] [place] [address] PCP - General 03/06/10 08/27/16 documented as of this encounter
--- OUTSIDE RECORDS SUMMARY | 2024-01-23 00:35 | XMS_ITS | Encounter Summary ---
[facility] [place] [address] Care Team Providers Care Mobile Application Architect Name Role Phone Jennie Resendiz MD Primary Care Provider [phone] Reason for Visit * Reason Comments Follow-up Encounter Details Date Type Department Care Team (Late st Contact Info) Description 09/18/2012 10:00 AM EDT Follow-Up [place] [id number] CLINIC, Leisa Roque [facility] [place] [address] Cirrhosis of liver (Primary Dx) Discharge Disposition: Home Social History Tobacco Use [...] Sign Reading Time Taken Comments Blood Pressure 144/79 09/18/2012 9:47 AM EDT Pulse 86 09/18/2012 9:47 AM EDT Temperature - - Respiratory Rate - - Oxygen Saturation - - Inhaled Oxygen Concentration - - Weight 108.4 kg (239 lb) 09/18/2012 9:47 AM EDT Height 165.1 cm (5' 5) 09/18/2012 9:47 AM EDT Body Mass Index 39.77 09/18/2012 9:47 AM EDT documented in this encounter Patient Instructions * Patient Instructions* Leisa Woodard APRN - 09/18/2012 10:39 AM EDT 1. NO alcohol 2. NO soda or juice 3. For your abdominal burning pain, try Zantac 150 mg as needed or Tums as needed. These are both [id number] 4. Take Coreg twice daily with food. I will see you back in 4 weeks to check BP and pulse to make sure you are tolerating these medications. 5. Work on weight loss with diet and daily exercise (walking). 6. Ask PCP for referral to mental health documented in this encounter Progress Notes * Leisa Woodard APRN - 09/18/2012 9:18 AM EDT Subjective: Patient ID: Kallie Darling is a 52 y.o. female. HPI Problem List: 1. Cirrhosis, HARDEN/MONA A. Labs - see below B. Imaging - Abd Ultrasound 09/18/12 (see below) C. Liver Biopsy - 01/28/12 - severe steatohepatitis and cirrhosis D. Complications 1. Portal HTN - Grade 1 EV (08/21/12) 2. Ascites - none to date 3. Hepatic Encephalopathy - none to date 4. UGIB - none to date 2. HARDEN 3. Alcohol Dependince 1. Continues to drink. Last ETOH 09/15/12 4. Class II Obesity 5. Pre-Diabetes 6. Dyslipidemia 7. SOCORRO 8. GERD 9. Constipation 10. Asthma 11. Depression 12. Right Sided LE pain 13. S/P Hysterectomy 1979 14. S/P left thumb surgery 1966 15. S/P left knee arthroscopy 2001 16. S/P cholecystectomy 2009 [facility] 1. HAV/HBV 2. Portal HTN - EGD 08/21/12 with Grade 1 EV. Coreg 6.25 mg BID initiated 09/18/12. No need to repeat EGD unless decompensates. 3. Colonoscopy - 08/21/12. Poor prep. Repeat 2013 4. HCC surveillance - Ultrasound 09/18/12, no liver masses. AFP 09/18/12 pending. Initial Visit 01/24/12: Ms. Darling is a 51 year old white female seen today at [facility] in consultation for hepatosplenomegaly on [...] pain, N, V, melena, hematochezia, confusion, pruritus. Outside Labs: 10/23/11 11/26/11 12/27/11 Hgb 13.3 [...] in clinic with Ms. Woodard. Abdominal Ultrasound 09/18/12: Impression Ultrasound - Abdomen Complete - Summary Hepatosplenomegaly with diffusely increased hepatic echogenicity. No focal heptatic mass. Abnormal collateral vessels seen in brandie hepatitis and gastrohepatic ligament. Findings suggest portal hypertension. No ascites seen. Non obstructing stone right kidney. Ultrasound - Vascular evaluation - Summary The hepatic veins, portal veins and hepatic artery are patent with normal directional flow. Review of Systems Constitutional: Negative for fever, chills, diaphoresis and fatigue. Body mass index is 39.77 kg/(m^2). HENT: Negative for trouble swallowing. Respiratory: Negative for cough, shortness of breath and wheezing. Asthma with coughing and SOB - inhalers help Cardiovascular: Positive for leg swelling (Intermittently when stands for prolonged periods of time). Negative for chest pain and palpitations. Gastrointestinal: Positive for abdominal pain (diffuse discomfort due constipatoin), constipation and abdominal distention (from constipation). Negative for nausea, vomiting, diarrhea and blood in stool. Intermittent burning abdominal pain after eating spaghetti sauce despite Nexium once daily. BM - very constipated Genitourinary: Positive for hematuria (Intermittently. She no-showed her f/u appt with urology). Musculoskeletal: Positive for myalgias, back pain and arthralgias. Skin: Negative for color change and rash. Denies pruritus Neurological: Positive for light-headedness (Attributes this to running out of her meds (all)). Negative for tremors, syncope and weakness. Hematological: Does not bruise/bleed easily. Psychiatric/Behavioral: Positive for sleep disturbance and dysphoric mood (Poorly controlled). Negative for confusion. The patient is nervous/anxious. Objective: Physical Exam Constitutional: She is oriented to person, place, and time. She appears well- developed and well-nourished. HENT: Head: Normocephalic and atraumatic. Bilateral cerumenosis Eyes: Pupils are equal, round, and reactive to light. No scleral icterus. Neck: Normal range of motion. Neck supple. No thyromegaly present. Cardiovascular: Normal rate, regular rhythm and normal heart sounds. No murmur heard. Pulmonary/Chest: Effort normal and breath sounds [...] dry. There is erythema (Palmar erythema and spider angioma on cheeks). Psychiatric: She has a normal mood and affect. Her behavior is normal. Assessment and Plan: Ms. Darling is a pleasant 52 year old white female seen today in follow-up for cirrhosis, likely Alcohol and HARDEN related. 1. Cirrhosis, Alcohol and HARDEN related. She has risk factors for MONA and HARDEN. She continues to binge drink; her last ETOH was 09/15/12. Her risk factors for HARDEN include Class II obesity, hyperlipidemia, DM2 and hypothyroid. In the treatment of HARDEN, aggressive control of diabetes, BP, lipids and thyroid is imperative. I will defer to PCP's expertise with regards to managing her diabetes, lipids and hypothyroid. I have advised slow sustained weight loss through diet and exercise. She will continue to need bi-annual HCC surveillance with labs and imaging (alternating ultrasound and CT scan or MRI). Tylenol is safe to take as needed up to 2 grams/24 hrs in setting of cirrhosis. 2. Alcohol abuse. I had a charlie discussion with the patient about alcohol. There is no safe limit to ETOH consumption in setting of cirrhosis. I explained that she will need to abstain from all ETOH.I have advised that she seek counseling either at AA meetings or one-on-one therapist. 3. Obesity, Class II. She has been gaining weight. I have recommended diet and daily physical activity (walking 20-30 min daily). Avoid soda and juice. 4. Portal Hypertension with Grade I EV. Discussed treatment options: nonselective beta purnima or serial EGD's. She would prefer to try Coreg 6.25 mg BID with meals. I discussed potential risks and side effects of medication. I will need to see her in follow-up in 4 weeks to ensure she is tolerating well. 5. Constipation. I have advised that she increase the Miralax to two capfuls BID. Encouraged increased fruits and vegetables. Increased water intake. Regular, daily physical activity. 6. Poor prep for screening colonoscopy. She will need repeat in 12 months with 2-day prep and 2 gallons Golytely. 7. Mood disorder. She never resumed therapy. I have strongly encouraged her to contact PCP to request referral to mental health provider. 8. GERD. She is taking her Nexium 40 mg once daily. Despite this she is experiencing RUQ liver pain after eating spicy foods and spaghetti sauce. I explained that this was not liver pain. I have asked that she try Zantac 150 mg or Tums PRN for this burning abdominal pain. All of the patients questions were answered at the conclusion of the visit. She verbalized understanding and agreement to the plan of care. I will see her back in 4 weeks to ensure she is tolerating Coreg. She will be due for repeat labs and imaging in March. documented in this encounter Plan of Treatment Upcoming Encounters Date Type Department Care Team (Late st Contact Info) Description 02/27/2024 2:45 PM EST TH Visit (TeleHealth) [place] [address] Lashae Lorenzo MD [facility] [place] [address] documented as of this encounter Procedures Procedure Name Priority Date/Time Associated Diagnosis Comments DIFFERENTIAL, AUTOMATED Routine 09/18/2012 11:12 AM EDT HEPATITIS A ANTIBODY, TOTAL Routine 09/18/2012 11:12 AM EDT Cirrhosis of liver AFP TUMOR MARKER Routine 09/18/2012 11:1 2 AM EDT Cirrhosis of liver HEPATITIS B SURFACE ANTIBODY Routine 09/18/2012 11:12 AM EDT Cirrhosis of liver PROTHROMBIN TIME Routine 09/18/2012 11:1 2 AM EDT Cirrhosis of liver CBC (WITH DIFF) Routine 09/18/2012 11:12 AM EDT Cirrhosis of liver TSH Routine 09/18/2012 11:12 AM EDT Cirrhosis of liver HEMOGLOBIN A1C Routine 09/18/2012 11:12 AM EDT Cirrhosis of liver LIPID PANEL (REFLEX DIRECT LDL) Routine 09/18/2012 11:12 AM EDT Cirrhosis of liver COMPREHENSIVE METABOLIC PANEL Routine 09/18/2012 11:12 AM EDT Cirrhosis of liver documented in this encounter Results * Differential, Automated (09/18/2012 11:12 AM EDT) Neutrophil % 53.7 34.0 - 71.0 % [facility] Neutrophil Absolute 3.76 1.50 - 6.30 x10(3)/mcL [facility] Lymph % 38.8 19.0 - 53.0 % [facility] Lymphocytes Abs 2.7 1.0 - 3.6 x10(3)/mcL [facility] Monocyte % 5.3 4.0 - 13.0 % [facility] Monocyte Abs 0.4 0.2 - 1.0 x10(3)/mcL [facility] Eos % 2.0 0.0 - 7.0 % [facility] Eosinophils Abs 0.1 0.0 - 0.5 x10(3)/mcL [facility] Basophil % 0.1 0.0 - 2.0 % [facility] Baso Absolute 0.0 0.0 - 0.2 x10(3)/mcL [facility] Immature Gran % 0.10 0.00 - 0.66 % [facility] Comment: Immature granulocytes(IG's)percentage and absolute count will include metamyelocytes, myelocytes, and promyelocytes. Blood smears from CBCs yielding IG's will be scanned manually for concordance. If this scan disagrees with the automated IG or if promyelocytes are noted, a manual differential will be performed. Immature Gran Absolute 0.01 0.00 - 0.05 x10(3)/mcL [facility] Blood specimen (specimen) 09/18/2012 11:12 AM EDT 09/18/2012 11:17 AM EDT Timothy Paul MD HEMATOLOGY ORDERABL ES Performing Organization Address [facility] de Phone Number [facility] * AFP tumor marker (09/18/2012 11:12 AM EDT) Alpha Fetoprotein 2 <=5 ng/mL [facility] Comment: Note new Reference Range as of 12-23-2011. Reference: Immulite 2000 AFP package insert ([id number], 2009-01-05) Blood specimen (specimen) 09/18/2012 11:12 AM EDT 09/18/2012 2:15 PM EDT Narrative Resulting Agency Comment Spec In Lab Timothy Paul MD CHEMISTRY ORDERABLE S Performing Organization Address [facility] Phone Number [facility] * Prothrombin Time (09/18/2012 11:12 AM EDT) Prothrombin Time 14.3 12.0 - 15.0 sec [facility] Comment: [facility] Transfusion Committee Guidelines: INR less than 2.0, PTT less than OR equal to 43.5 seconds, or Fibrinogen greater than or equal to 100 mg/dl indicate adequate procoagulant activity for hemostasis in patients without underlying bleeding disorders. International Normalization Ratio 1.1 0.9 - 1.1 [facility] Blood specimen (specimen) 09/18/2012 11:12 AM EDT 09/18/2012 11:17 AM EDT Narrative Resulting Agency Comment Spec In Lab Tiomthy Paul MD HEMATOLOGY ORDERABL ES Performing Organization Address [facility] de Phone Number [facility] * (ABNORMAL) Comprehensive metabolic panel (non-fasting) (09/18/2012 11:12 AM EDT) Glucose 120 60 - 199 mg/dL [facility] Comment:Diabetes: >=200 mg/d L plus symptoms Blood Urea Nitrogen 11 8 - 18 mg/dL [facility] Creatinine 0.67(L) 0.70 - 1.20 mg/dL [facility] Comment: Please note that the pediatric reference intervals supplied above were not validated at [facility]. Results from pediatric patients should be interpreted in conjunction to the patient's age, height and muscle mass. Sodium 138 135 - 145 mmol/L [facility] Potassium 4.3 3.5 - 5.0 mmol/L [facility] Comment: Please note: ??Patients with WBC >100,000 may have falsely elevated Potassium levels. ??For accurate Potassium quantification in these patients send serum separator tube (gold top) for subsequent determinations. ??Contact the Clinical Chemistry Laboratory if there are any questions. Chloride 103 98 - 107 mmol/L [facility] Carbon Dioxide 24 22 - 31 mmol/L [facility] Anion Gap 11 5 - 15 mmol/L [facility] Calcium 11.0(H) 8.5 - 10.5 mg/dL [facility] Protein, Total 7.7 6.4 - 8.3 gm/dL [facility] Albumin 4.9 3.2 - 5.2 gm/dL [facility] Aspartate Aminotransferase 80(H) 0 - 30 unit/L [facility] Alanine Aminotransferase 58(H) 0 - 30 unit/L [facility] Alkaline Phosphatase 148(H) 40 - 104 unit/L [facility] Bilirubin, Total 0.5 0.2 - 1.3 mg/dL [facility] Bilirubin, [...] the following links into your internet browser. http://www.nkdep.nih.gov/lab-evaluation.shtml http://www.kidney.org/professionals/ Blood specimen (specimen) 09/18/2012 11:12 AM EDT 09/18/2012 11:17 AM EDT Narrative Resulting Agency Comment Spec In Lab Timothy Paul MD CHEMISTRY ORDERABLE S [facility] * (ABNORMAL) CBC (with Diff) (09/18/2012 11:12 AM EDT) White Blood Cell 7.0 4.0 - 10.0 x10(3)/mc L [facility] Red Blood Cell 4.56 3.93 - 5.22 x10(6)/mc L [facility] Hemoglobin 13.8 11.2 - 15.7 gm/dL [facility] Hematocrit 41.0 34.0 - 45.0 % [facility] Mean Cell Volume 89.9 79.0 - 94.0 fL [facility] Mean Cell Hemoglobin 30.3 26.6 - 32.2 pg [facility] Mean Cell Hemoglobin Concentration 33.7 32.0 - 36.5 gm/dL [facility]NI[facility] Platelet 133(L) 145 - 370 x10(3)/mc L [facility] RDW Standard Deviation 46.0 35.0 - 46.0 fL [facility] RDW coefficient of variation 14.1 10.9 - 14.4 % [facility] Mean Platelet Volume 9.5 9.0 - 12.0 fL [facility] Blood specimen (specimen) 09/18/2012 11:12 AM EDT 09/18/2012 11:17 AM EDT Narrative Resulting Agency Comment Spec In Lab Timothy Paul MD HEMATOLOGY ORDERABL ES [facility] * Hemoglobin A1c (09/18/2012 11:12 AM EDT) Hemoglobin A1c 5.6 4.3 - 6.1 % [facility] Comment: The [place] Diabetes Association (ADA) has stated that HbA1c values >or= 6.5% are consistent with the diagnosis of diabetes mellitus. In the absence of hyperglycemia (i.e. plasma glucose > 200 mg/dL) or classic symptoms of hyperglycemia a repeat measurement of HbA1c should be performed on a separate sample to confirm the diagnosis. The ADA also considers an HbA1c value between 5.7% and 6.4% to be consistent with an increased risk of diabetes (prediabetes). Patients with an HbA1c value in this range should be counseled about their increased risk of progressing to diabetes. Reference: Position Statement: Standards of Medical Care in Diabetes 2013. Diabetes Care 2013:36;suppl 1:S11-S66. Estimated Average Glucose 114 mg/dL [facility] Comment: eAG equivalents for HbA1c percentages: HbA1c(%) ?eAG(mg/dL) 6.0 ?126 6.5 ?140 7.0 ?154 7.5 ?169 8.0 ?183 8.5 ?197 9.0 ?212 9.5 ?226 10.0 ? 240 Limitations: The eAG calculation has not been validated on women, individuals below 18 years old and above 70 years old, and individuals with hemoglobinopathies. Additional resources are available on the ADA website: ??http://professional.diabetes.org/glucosecalculator.aspx Rg ADDISON, Alva J, Saran R, et al. ??Translating the A1C assay into estimated average glucose values. ??Diabetes Care 2008:31(8):4313-9026. Blood specimen (specimen) 09/18/2012 11:12 AM EDT 09/18/2012 11:17 AM EDT Narrative Resulting Agency Comment Spec In Lab Timothy Paul MD CHEMISTRY ORDERABLE S LILLIE HUIZAR * (ABNORMAL) Lipid panel (fasting) (09/18/2012 11:12 AM EDT) Cholesterol, Total 239(H) <=199 mg/dL [facility] Comment: Recommendations of the NCEP Adult Treatment Panel for the following risk cutoff thresholds for the [place] population: Desirable: <200 mg/dL Borderline High: 200-239 mg/dL High: > or = 240 mg/dL Triglyceride 272(H) <=149 mg/dL [facility] Comment: Reference Range: Normal triglycerides: ??<150 mg/dL Borderline high: ??150-199 mg/dL High: ??200-499 mg/dL Very high: ??>at=770 mg/dL YAMILEX 2001; 285(19):5844-7291 HDL Cholesterol 33(L) >=40 mg/dL [facility] Comment: Reference range: ??Low HDL: ?? < 40 mg/dL ??Normal: ?40-60 mg/dL ??Desirable: > 60 mg/dL YAMILEX 2001; 285(19):9812-6033 LDL Cholesterol 152(H) <=99 mg/dL [facility] Comment: Reference range: ?? Optimal: ?<100 mg/dL ?? Near Optimal/Above Optimal: ?? 100-129 mg/dL ?? Borderline high: ?130-159 mg/dL ?? High: ? 160-189 mg/dL ?? Very high: ?>km=928 mg/dL YAMILEX 2001: 285(19):2040-3458 Cholesterol/HDL Ratio 7.2 ratio [facility] Comment: A Cholesterol to HDL ratio below 4:1 is desirable. ??Studies suggest that increased CAD risk occurs at ratios above 5 for females and above 6 for men. ? [place] Heart Association ??(http://www.americanheart.org) ? Sherry Int Med, 1994; 121:641 ? AM J Med, 1998; 105(1A):48S Blood specimen (specimen) 09/18/2012 11:12 AM EDT 09/18/2012 11:17 AM EDT Narrative Resulting Agency Comment Spec In Lab Timothy Paul MD Skataz ORDERABLE S Performing Organization Address [facility] de Phone Number [facility] * TSH (09/18/2012 11:12 AM EDT) Pathologist [facility] Thyroid Stimulating Hormone 2.33 0.27 - 4.20 mcIU/mL [facility] Blood specimen (specimen) 09/18/2012 11:12 AM EDT 09/18/2012 11:17 AM EDT Narrative Resulting Agency Comment Spec In Lab Timothy Paul MD LE TOTE S Performing Organization Address [facility] de Phone Number [facility] * Hepatitis B Surface Antibody (09/18/2012 11:12 AM EDT) Pathologist [facility] Hepatitis B Surface Antibody Positive [facility] Comment: Expected Results: Vaccinated: Positive Unvaccinated: Negative Please note: A positive result for this assay is consistent with a concentration of anti-HBs antibodies >10mIU/ml, which indicates that anti-HBs antibodies have been detected at levels consistent with protective immunity against HBV infection. Blood specimen (specimen) 09/18/2012 11:12 AM EDT 09/18/2012 11:17 AM EDT Narrative Resulting Agency Comment Spec In Lab Timothy Paul MD One Beauty StopABLE S Performing Organization Address [facility] de Phone Number [facility] * (ABNORMAL) Hepatitis A Antibody, Total (09/18/2012 11:12 AM EDT) Hepatitis A ANTIBODY, TOTAL Positive(A ) Negative [facility] Blood specimen (specimen) 09/18/2012 11:12 AM EDT 09/18/2012 11:17 AM EDT Narrative Resulting Agency Comment Spec In Lab Timothy Paul MD CHEMISTRY ORDERABLE S LILLIE HUIZAR documented in this encounter Visit Diagnoses Diagnosis Cirrhosis of liver- Primary Cirrhosis of liver without mention of alcohol documented in this encounter Care Teams Mobile Application Architect Relationship Specialty Start Date End Date Jennie Resendiz MD [address] [place] [address] PCP - General 03/06/10 08/27/16 documented as of this encounter
--- OUTSIDE RECORDS SUMMARY | 2024-01-23 00:35 | XMS_ITS | Encounter Summary ---
Author Organization [facility] [place] [address] Care Team Providers Care Veneer Redrier Name Role Phone Jennie Resendiz MD Primary Care Provider [phone] Encounter Details Date Type Department Care Team (Late st Contact Info) Description 10/20/2012 9:30 AM EDT [place] [address] Sofia Davis APRN [facility] GASTROENTEROLOG[place] [address] Chest pain (Primary Dx); Cirrhosis of liver Discharge Disposition: Home Social History Tobacco Use [...] Sign Reading Time Taken Comments Blood Pressure 110/72 10/20/2012 9:25 AM EDT Pulse 72 10/20/2012 9:25 AM EDT Temperature - - Respiratory Rate - - Oxygen Saturation - - Inhaled Oxygen Concentration - - Weight 110.2 kg (243 lb) 10/20/2012 9:25 AM EDT Height 165.1 cm (5' 5) 10/20/2012 9:25 AM EDT Body Mass Index 40.44 10/20/2012 9:25 AM EDT documented in this encounter Patient Instructions * Patient Instructions* Sofia Davis APRN - 10/20/2012 9:52 AM EDT 1. NO ALCOHOL 2. For the burning stomach pain, try Zantac (ranitidine) 150 mg. Take this as needed when you get burning abdominal pain 3. For the constipation, Miralax 1 capful mixed in 8 oz of fluid twice daily 4. Call urology to reschedule your appt. [phone] 5. Continue with Coreg 6.25 mg one tablet twice daily documented in this encounter Progress Notes * Sofia Davis APRN - 10/20/2012 9:34 AM EDT Subjective: Patient ID: Kallie Darling [...] - Ultrasound 09/18/12, no liver masses. AFP 2 (09/18/12). Due again March 2013. Initial Visit 01/24/12: Ms. Darling is a 51 year old white female seen today at [facility] in consultation for hepatosplenomegaly on [...] hematochezia, confusion, pruritus. Interval History 10/20/12: Ms. Darling returns today in follow-up. She has been [...] she continues to drink. She drank on 7/4/13, having 2 beers because other people were also drinking. She started seeing a counselor in [facility] who is going to help her with her alcohol dependence. She had one episode of chest pain on 10/15/12 accompanied by dyspnea and left arm numbness. She did not go to ER. She experienced this during argument with her daughter and dismissed symptoms as stress/anxiety. Outside Labs: 10/23/11 11/26/11 12/27/11 Hgb 13.3 [...] duodenum. Recommendation: Follow-up in clinic with Ms. Davis. Abdominal Ultrasound 09/18/12: Impression Ultrasound - Abdomen [...] normal directional flow. Review of Systems Constitutional: Positive for fatigue (Noting some increased fatigue with Coreg). Negative for fever, chills and diaphoresis. Body mass index is 39.77 kg/(m^2). HENT: Positive for trouble swallowing (pill dysphagia. food goes down hard because not chewing properly due to missing lower teeth). Respiratory: Positive for shortness of breath (Attributes this to allergies and humidity). Negativefor cough and wheezing. Asthma with coughing and SOB - inhalers help Cardiovascular: Positive for chest pain (One episode of chest pain with left arm numbness x 5 days ago. She attributes this to stress.) and leg swelling (Intermittently when stands for prolonged periods of time). Negative for palpitations. Gastrointestinal: Positive for abdominal pain (diffuse discomfort due constipatoin), constipation and abdominal distention (from constipation). Negative for nausea, vomiting, diarrhea and blood in stool. Intermittent burning abdominal pain after eating spaghetti sauce despite Nexium once daily. BM - very constipated. Has not started Miralax because could not afford it Genitourinary: Positive for hematuria (Intermittently after drinking alcohol. She no-showed her f/uappt with urology). Musculoskeletal: Positive for myalgias, back [...] to binge drink; her last ETOH was 10/15/12. Her risk factors for HARDEN include Class [...] imaging. She will be due again in March with ultrasound and labs. Tylenol is safe to take as needed up to 2 grams/24 hrs in setting of cirrhosis. 2. Alcohol abuse. I had a charlie discussion with the patient about alcohol. There is no safe limit to ETOH consumption in setting of cirrhosis. I explained that she will need to abstain from all ETOH.She started seeing counselor who will help her with alcohol dependence. I encouraged her to keep these appts. 3. Obesity, Class II. She has been gaining weight. I have recommended diet and daily physical activity (walking 20-30 min daily). Avoid soda and juice. 4. Portal Hypertension with Grade I EV. Continue Coreg 6.25 mg BID. Her pulse is 72 (down from 86) and BP 110/72 (down from 144/79). The goal HR should be around 64 bpm. She is tolerating this medication fairly well, only noting mild increase in daytime fatigue. 5. Constipation. I have recommended Miralax to two capfuls BID. Encouraged increased fruits and vegetables. Increased water intake. Regular, daily physical activity. 6. Poor prep for screening colonoscopy. She will need repeat in 12 months with 2-day prep and 2 gallons Golytely. 7. Mood disorder. She started seeing a counselor. Encouraged her to continue. 8. GERD. She is taking her Nexium 40 mg once daily. Despite this she is experiencing RUQ liver pain after eating spicy foods and spaghetti sauce. I explained that this was not liver pain. I have asked that she try Zantac 150 mg PRN for this burning abdominal pain. 9. Chest pain. This occurred on 10/15/12, accompanied by dyspnea and left arm numbness. She did not go to ER. I strongly advised that should this recur that she call 911 immediately and go to ER. Will obtain EKG today. All of the patients questions were answered at the conclusion of the visit. She verbalized understanding and agreement to the plan of care. I will see her back in March with labs and ultrasound documented in this encounter Plan of Treatment Upcoming Encounters Date Type Department Care Team (Late st Contact Info) Description 02/27/2024 2:45 PM EST TH Visit (TeleHealth) [place] [address] Lashae Lorenzo MD [facility] DR [place] [address] documented as of this encounter Procedures Procedure Name Priority Date/Time Associated Diagnosis Comments EKG 12-LEAD Routine 10/20/2012 10:40 AM EDT Chest pain documented in this encounter Results * AFP tumor marker (05/06/2013 12:32 PM EST) Alpha Fetoprotein 4.6 <=8.3 ng/mL CERNER MILLENNIUM Blood specimen (specimen) 05/06/2013 12:32 PM EST 05/06/2013 12:44 PM EST Narrative Resulting Agency Comment Spec In Lab Timothy Paul MD CHEMISTRY ORDERABLE S Performing Organization Address [facility] Co de Phone Number LILLIE [employer] * Prothrombin Time (05/06/2013 12:32 PM EST) Prothrombin Time 14.8 12.0 - 15.0 sec CERNER MILLENNIUM Comment: [facility] Transfusion Committee Guidelines: INR less than 2.0, PTT less than OR equal to 43.5 seconds, or Fibrinogen greater than or equal to 100 mg/dl indicate adequate procoagulant activity for hemostasis in patients without underlying bleeding disorders. International Normalization Ratio 1.1 0.9 - 1.1 CERNER MILLENNIUM Blood specimen (specimen) 05/06/2013 12:32 PM EST 05/06/2013 12:44 PM EST Narrative Resulting Agency Comment Spec In Lab Timothy Paul MD HEMATOLOGY ORDERABL ES Performing Organization Address City/[facility]/ZIP Co de Phone Number LILLIE [employer] * (ABNORMAL) Comprehensive metabolic panel (non-fasting) (05/06/2013 12:32 PM EST) [facility] Glucose 107 60 - 199 mg/dL CERNER MILLENNIUM Comment:Diabetes: >=200 mg/d L plus symptoms Blood Urea Nitrogen 11 8 - 18 mg/dL CERNER MILLENNIUM Creatinine 0.75 0.70 - 1.20 mg/dL CERNER MILLENNIUM Comment: Please note that the pediatric reference intervals supplied above were not validated at [facility]. Results from pediatric patients should be interpreted in conjunction to the patient's age, height and muscle mass. Sodium 140 135 - 145 mmol/L CERNER MILLENNIUM Potassium 4.1 3.5 - 5.0 mmol/L CERNER MILLENNIUM Comment: Please note: ??Patients with WBC >100,000 may have falsely elevated Potassium levels. ??For accurate Potassium quantification in these patients send serum separator tube (gold top) for subsequent determinations. ??Contact the Clinical Chemistry Laboratory if there are any questions. Chloride 102 98 - 107 mmol/L CERNER MILLENNIUM Carbon Dioxide 27 22 - 31 mmol/L CERNER MILLENNIUM Anion Gap 11 5 - 15 mmol/L CERNER MILLENNIUM Calcium 11.5(H) 8.5 - 10.5 mg/dL CERNER MILLENNIUM Protein, Total 8.0 6.4 - 8.3 gm/dL CERNER MILLENNIUM Albumin 4.8 3.2 - 5.2 gm/dL CERNER MILLENNIUM Aspartate Aminotransferase 106(H) 0 - 30 unit/L CERNER MILLENNIUM Alanine Aminotransferase 59(H) 0 - 30 unit/L CERNER MILLENNIUM Alkaline Phosphatase 171(H) 40 - 104 unit/L CERNER MILLENNIUM Bilirubin, [...] internet browser. http://www.nkdep.nih.gov/lab-evaluation.shtml http://www.kidney.org/professionals/ Blood specimen (specimen) 05/06/2013 12:32 PM EST 05/06/2013 12:44 PM EST Narrative Resulting Agency Comment Spec In Lab Timothy Paul MD CHEMISTRY ORDERABLE S [facility] * US abdomen complete with vascular (05/06/2013 11:28 AM EST) Anatomical Region Laterality Modality Abdomen Ultrasound 05/06/2013 11:2 8 AM EST Narrative 05/06/2013 12:42 PM EST ?Abdominal Duplex ? (Signed Final 05/06/2013 12:41 pm) Patient Info ID: ? [id number] ? : ??60 (52 yrs) Name: ? KALLIE Villalobos [employer]OTIONS OFFICER ?Visit Date: 05/06/2013 11:19 am Performed By Performed By: ?Violetta Vaughan RDMS Attending: ? Gisella STOCKTON, Renu Gordillo Referred By: ? SOFIA DAVIS APRN Service(s) Provided UABDCVASC - Abdominal Complete Survey with ?[id number], [id number] Vascular - [id number], [id number] Indications cirrhosis, HCC surveillance Comparison Abdominal ultrasound with liver Doppler interrogation, 09/18/12. ----- Liver ----- Right Lobe Length: ?? 22.2 ?? cm Echogenicity/Echotexture: ?? Mild diffuse increased ? echogenicity, similar to prior Portal Veins: ?Patent Hepatic Veins: ?? Patent Comment: ?No hepatic mass identified. ??Smooth capsular ? contour. Gallbladder Comment: ?Surgically removed Biliary Tract Intrahepatic Ducts: ?? Normal Extrahepatic Ducts: ?? Normal Common Duct Size: ? 4 ? mm -------- Pancreas -------- Head: ? Poorly visualized Tail: ? Poorly visualized due to overlying bowel Body: ? Limited visualization ------ Spleen ------ Size (cm) ?L: ??19.7 Comment: ?Normal appearance. Right Kidney Size (cm) ?L: ??10.9 Cortical Thickness: ?Normal Cortical Echogenicity: ?? Normal Hydronephrosis: ?No sonographic evidence Comment: ?Previously reported 5 mm nonobstructing calculus ? in the mid pole is not seen today. Left Kidney Size (cm) ?L: ??13.1 Cortical Thickness: ?Normal Cortical Echogenicity: ?? Normal Hydronephrosis: ?No sonographic evidence ----- Aorta ----- Comment: ?Normal in caliber where visualized. --- IVC --- Proximal portion, normal in caliber. Fluid Collections No ascites seen. Hepatic-Portal Duplex Collaterals: ??Visualized in the brandie hepatis region Main Portal Vein ? PSV: ?? 24.1 ? cm/s Waveform: ? Hepatopetal; right and left portal veins patent, ? hepatopetal Hepatic Artery ?PSV: ?? 61.7 ? cm/s ?EDV: ?? 22.6 ? cm/s Hepatic Artery ?RI: ?0.63 Waveform: ? Patent Right Hepatic Vein Waveform: ?Patent Middle Hepatic Vein Waveform: ? Patent Left Hepatic Vein Waveform: ? Patent IVC ??Waveform: ?Patent Impression Ultrasound - Abdomen Complete - Summary 1. ??Hepatomegaly, slight increased from prior, with similar mild diffuse increased echogenicity. ?? No sonographically evident hepatic mass, capsular nodularity, or ascites. 2. ?? Findings of underlying portal hypertension again noted included visualized collateral vessels in the brandie hepatis and marked splenomegaly, the spleen slight increased in size compared to prior. 3. ?? Previously reported nonobstructing right renal stone is not identified today. 4. ?? Limited visualization of the pancreas for evaluation. Ultrasound - Vascular evaluation - Summary The hepatic veins, portal veins, and hepatic artery are patent with normal directional flow. I ??viewed the images and agree with the above interpretation. Thank you for allowing us to participate in the care of KALLIE DARLING. Please do not hesitate to call if you have any questions. ? Renu Obando MD Electronically Signed Final Report ?? 05/06/2013 12:41 pm Procedure Note Renu Obando MD - 05/06/2013 Abdominal Duplex (Signed Final 05/06/2013 12:41 pm) Patient Info ID: [id number] : 60 (52 yrs) Name: KALLIE DARLING Visit Date: 05/06/2013 11:19 am Performed By Performed By: Violetta Vaughan RDMS Attending: Renu Obando MD Referred By: SOFIA DAVIS APRN Service(s) Provided UABDCVASC - Abdominal Complete Survey with 19436, 87953 Vascular - [id number], [id number] Indications cirrhosis, HCC surveillance Comparison Abdominal ultrasound with liver Doppler interrogation, 09/18/12. ----- Liver ----- Right Lobe Length: 22.2 cm Echogenicity/Echotexture: Mild diffuse increased echogenicity, similar to prior Portal Veins: Patent Hepatic Veins: Patent Comment: No hepatic mass identified. Smooth capsular contour. Gallbladder Comment: Surgically removed Biliary Tract Intrahepatic Ducts: Normal Extrahepatic Ducts: Normal Common Duct Size: 4 mm -------- Pancreas -------- Head: Poorly visualized Tail: Poorly visualized due to overlying bowel Body: Limited visualization ------ Spleen ------ Size (cm) L: 19.7 Comment: Normal appearance. Right Kidney Size (cm) L: 10.9 Cortical Thickness: Normal Cortical Echogenicity: Normal Hydronephrosis: No sonographic evidence Comment: Previously reported 5 mm nonobstructing calculus in the mid pole is not seen today. Left Kidney Size (cm) L: 13.1 Cortical Thickness: Normal Cortical Echogenicity: Normal Hydronephrosis: No sonographic evidence ----- Aorta ----- Comment: Normal in caliber where visualized. --- IVC --- Proximal portion, normal in caliber. Fluid Collections No ascites seen. Hepatic-Portal Duplex Collaterals: Visualized in the brandie hepatis region Main Portal Vein PSV: 24.1 cm/s Waveform: Hepatopetal; right and left portal veins patent, hepatopetal Hepatic Artery PSV: 61.7 cm/s EDV: 22.6 cm/s Hepatic Artery RI: 0.63 Waveform: Patent Right Hepatic Vein Waveform: Patent Middle Hepatic Vein Waveform: Patent Left Hepatic Vein Waveform: Patent IVC Waveform: Patent Impression Ultrasound - Abdomen Complete - Summary 1. Hepatomegaly, slight increased from prior, with similar mild diffuse increased echogenicity. No sonographically evident hepatic mass, capsular nodularity, or ascites. 2. Findings of underlying portal hypertension again noted included visualized collateral vessels in the brandie hepatis and marked splenomegaly, the spleen slight increased in size compared to prior. 3. Previously reported nonobstructing right renal stone is not identified today. 4. Limited visualization of the pancreas for evaluation. Ultrasound - Vascular evaluation - Summary The hepatic veins, portal veins, and hepatic artery are patent with normal directional flow. I viewed the images and agree with the above interpretation. Thank you for allowing us to participate in the care of KALLIE DARLING. Please do not hesitate to call if you have any questions. Renu Obando MD Electronically Signed Final Report 05/06/2013 12:41 pm Timothy Paul MD IMG US GEN ORDERABL ES * EKG 12 Lead (10/20/2012 10:40 AM EDT) Ventricular rate 73 BPM MUSE SYSTEM Atrial Rate 73 BPM MUSE SYSTEM P-R Interval 172 ms MUSE SYSTEM QRS Duration 94 ms MUSE SYSTEM Q-T Interval 390 ms MUSE SYSTEM QTC Calculated (Bezet) 429 ms MUSE SYSTEM Calculated P [place] 38 degrees MUSE SYSTEM Calculated R [place] 7 degrees MUSE SYSTEM Calculated T [place] 27 degrees MUSE SYSTEM INTERPRETATION Normal sinus rhythm Normal ECG No previous ECGs available Confirmed by MD Lex, Ramón Villalobos ([id number]) on 10/20/2012 1:44:59 PM MUSE SYSTEM 10/20/2012 10:4 0 AM EDT 10/20/2012 1:44 PM EDT Timothy Paul MD ECG ORDERABLES MUSE SYSTEM documented in this encounter Visit Diagnoses Diagnosis Chest pain- Primary Chest pain, unspecified Cirrhosis of liver Cirrhosis of liver without mention of alcohol Cirrhosis of liver Cirrhosis of liver without mention of alcohol documented in this encounter Care Teams Veneer Redrier Relationship Specialty Start Date End Date Jennie Resendiz MD [address] [place] [address] PCP - General 03/06/10 08/27/16 documented as of this encounter
--- OUTSIDE RECORDS SUMMARY | 2024-01-23 00:35 | XMS_ITS | Encounter Summary ---
[place] [address] Care Team Providers Care Order Picker/Assembler Name Role Phone Jennie Resendiz MD Primary Care Provider [phone] Encounter Details Date Type Department Care Team (Latest Contact Info) Description 11/23/2013 11:40 AM EDT - 11/23/2013 11:59 PM EDT Hospital Encounter [place] [id number] Cirrhosis of liver Social History Tobacco Use [...] EST TH Visit (TeleHealth) [place] [address] Lashae Lorenzo MD [facility] [place] [address] documented as of this encounter Procedures Procedure Name Priority Date/Time Associated Diagnosis Comments US ABDOMEN COMPLETE WITH VASCULAR Routine 11/23/2013 1:37 PM EDT Cirrhosis of liver documented in this encounter Results * US abdomen complete with vascular (11/23/2013 1:37 PM EDT) Anatomical Region Laterality Modality Abdomen Ultrasound 11/23/2013 1:37 PM EDT Narrative 11/23/2013 2:33 PM EDT Abdominal Duplex ? (Signed Final 11/23/2013 02:32 pm) Patient Info ID #: ? [id number] ? : 60 (53 yrs) Name: ? KALLIE SMART ?Visit Date:11/23/2013 01:32 pm Performed By Performed By: ?Dwaine EVANS, Lina Associate: ? Asa STOCKTON, Anne Attending: ? Jignesh STOCKTON, Natalie Naranjo Referred By: ? SOFIA DAVIS APRN Service(s) Provided ??UABDCVASC - Abdominal Complete Survey with Vascular - [id number], [id number] ??[id number], [id number] Indications ??cirrhosis, HCC surveillance, portal HTN surveillance Comparison US: 09/18/2012, 05/06/2013 ----- Liver ----- Right Lobe Length: ?? 21.1 ?? cm Echogenicity/Echotexture: ?? Increased echogenicity Comment: ?Hepatomegaly, Smooth capsule, Recanalized ? periumbilical vein Gallbladder Comment: ?Cholecystectomy Biliary Tract Intrahepatic Ducts: ?? Normal Extrahepatic Ducts: ?? Normal Common Duct Size: ? 5.0 ? mm -------- Pancreas -------- Head: ? Poorly visualized due to overlying bowel Tail: ? Poorly visualized due to overlying bowel Body: ? Poorly visualized due to overlying bowel ------ Spleen ------ Size (cm) ? L: 18.1 ?AP: ??19.7 ?TV: ??6.9 Vol (ml): ?1288.2 Comment: ?Moderate splenomegaly Right Kidney Size (cm) ? L: 12.6 Cortical Thickness: ?Normal Cortical Echogenicity: ?? Normal Hydronephrosis: ?No sonographic evidence Left Kidney Size (cm) ? L: 13.4 Cortical Thickness: ?Normal Cortical Echogenicity: ?? Normal Hydronephrosis: ?No sonographic evidence ----- Aorta ----- Measurements (cm): Proximal ?AP: ??2.2 Mid ? AP: ??1.7 Distal ?AP: ??1.8 Comment: ?Normal in caliber where seen. --- IVC --- Proximal portion, normal in caliber Fluid Collections No ascites seen. Hepatic-Portal Duplex ? PSV ? EDV ? RI ??Waveform ? (cm/s) ??(cm/s) Hepatic Artery: ?? 45.8 ?15.0 ?0.67 Right Hepatic ? Patent Vein: Middle Hepatic ?Patent Vein: Left Hepatic ?Patent Vein: Main Portal ? 21.6 Vein: Collaterals: ??Recanalized periumbilical vein; Splenic varices Impression Ultrasound - Abdomen Complete - Summary 1. Hepatomegaly with increase echogencity of the liver consistent with fatty infiltration and minimal coarsening that may be due to superimposed fibrosis.No discrete liver mass. 2. portal HTN with splenomegaly, splenic varices and question recanalized umbilical vein. ??No ascites Ultrasound - Vascular evaluation - Summary Patent PV, hepatic artery and hepatic veins with normal directional flow. There is biphasic hepatic vein waveform that may be due to liver cirrhosis. ??Waveforms otherwise normal I ??viewed the images and agree with the above interpretation. ?Natalie Su MD Electronically Signed Final Report ?? 11/23/2013 02:32 pm Film and interpretation reviewed by the attending Procedure Note Natalie Irizarry MD - 11/23/2013 Abdominal Duplex (Signed Final 11/23/2013 02:32 pm) Patient Info ID #: [id number] : 60 (53 yrs) Name: KALLIE SMART Visit Date:11/23/2013 01:32 pm Performed By Performed By: Lina Isidro RDMS Associate: Anne Bray MD Attending: Natalie Egan MD Referred By: SOFIA DAVIS DIGITAL ART DIRECTOR Service(s) Provided UABDCVASC - Abdominal Complete Survey with Vascular - [id number], [id number], [id number] Indications cirrhosis, HCC surveillance, portal HTN surveillance Comparison US: 09/18/2012, 05/06/2013 ----- Liver ----- Right Lobe Length: 21.1 cm Echogenicity/Echotexture: Increased echogenicity Comment: Hepatomegaly, Smooth capsule, Recanalized periumbilical vein Gallbladder Comment: Cholecystectomy Biliary Tract Intrahepatic Ducts: Normal Extrahepatic Ducts: Normal Common Duct Size: 5.0 mm -------- Pancreas -------- Head: Poorly visualized due to overlying bowel Tail: Poorly visualized due to overlying bowel Body: Poorly visualized due to overlying bowel ------ Spleen ------ Size (cm) L: 18.1 AP: 19.7 TV: 6.9 Vol (ml): 1288.2 Comment: Moderate splenomegaly Right Kidney Size (cm) L: 12.6 Cortical Thickness: Normal Cortical Echogenicity: Normal Hydronephrosis: No sonographic evidence Left Kidney Size (cm) L: 13.4 Cortical Thickness: Normal Cortical Echogenicity: Normal Hydronephrosis: No sonographic evidence ----- Aorta ----- Measurements (cm): Proximal AP: 2.2 Mid AP: 1.7 Distal AP: 1.8 Comment: Normal in caliber where seen. --- IVC --- Proximal portion, normal in caliber Fluid Collections No ascites seen. Hepatic-Portal Duplex PSV EDV RI Waveform (cm/s) (cm/s) Hepatic Artery: 45.8 15.0 0.67 Right Hepatic Patent Vein: Middle Hepatic Patent Vein: Left Hepatic Patent Vein: Main Portal 21.6 Vein: Collaterals: Recanalized periumbilical vein; Splenic varices Impression Ultrasound - Abdomen Complete - Summary [...] due to liver cirrhosis. Waveforms otherwise normal I viewed the images and agree with the above interpretation. Natalie Su MD Electronically Signed Final Report 11/23/2013 02:32 pm Film and interpretation reviewed by the attending Timothy Paul MD IMG US GEN ORDERABL ES documented in this encounter Visit Diagnoses Diagnosis Cirrhosis of liver Cirrhosis of liver without mention of alcohol documented in this encounter Care Teams Order Picker/Assembler Relationship Specialty Start Date End Date Jennie Resendiz MD [address] [facility] [address] [place] [address] PCP - General 03/06/10 08/27/16 documented as of this encounter
--- OUTSIDE RECORDS SUMMARY | 2024-01-23 00:35 | XMS_ITS | Encounter Summary ---
[facility] Organization [facility] [place] [address] Care Team Providers Care Powerhouse Mechanic Supervisor Name Role Phone Jennie Resendiz MD Primary Care Provider [phone] Encounter Details Date Type Department Care Team (Late st Contact Info) Description 12/08/2012 Telephone [place] [address] Vincenzo Rhodes MD [facility] [place] [address] Social History Tobacco Use Types Packs/Day Years [...] encounter Miscellaneous Notes * Telephone Encounter - Vincenzo Rhodes - 12/08/2012 1:07 PM EDT Spoke to Ms Darling. Informed her about the results of Sestamibi scan and DEXA scan. Discussed the options of waiting and monitoring calcium, pth and DEXA over time and considering surgery if anythingdeteriorates or have the surgery done now as she is relatively young. She opted to go ahead with surgery. Will place a consult with Dr Woods today. documented in this encounter Plan of Treatment Upcoming Encounters Date Type Department Care Team (Late st Contact Info) Description 02/27/2024 2:45 PM EST TH Visit (TeleHealth) [place] [address] Lashae Lorenzo MD [facility] [place] [address] documented as of this encounter Visit Diagnoses Not on filedocumented in this encounter Care Teams Powerhouse Mechanic Supervisor Relationship Specialty Start Date End Date Jennie Resendiz MD [facility] [address] [facility] [address] [place] [address] PCP - General 03/06/10 08/27/16 documented as of this encounter
--- OUTSIDE RECORDS SUMMARY | 2024-01-23 00:35 | XMS_ITS | Encounter Summary ---
[place] [address] Care Team Providers Care Windows Support Engineer Name Role Phone Jennie Resendiz MD Primary Care Provider [phone] Encounter Details Date Type Department Care Team (Late st Contact Info) Description 12/01/2012 9:00 AM EDT - 12/01/2012 10:59 AM EDT Hospital Encounter [place] [address] Social History Tobacco Use Types [...] Sig Dispensed Refills Start Date End Date carvedilol (COREG) 6.25 mg tablet Take 1 [...] EST TH Visit (TeleHealth) [place] [address] Lashae Lorenzo MD [facility] [place] [address] documented as of this encounter Procedures Procedure Name Priority Date/Time Associated Diagnosis Comments NM PARATHYROID W/SPECT CT AND THYROID IMAGING Routine 12/01/2012 11:55 AM EDT documented in this encounter Results * NM Parathyroid w/Spect-CT & Thyroid Imaging (12/01/2012 11:55 AM EDT) Anatomical Region Laterality Modality Other 12/01/2012 11:5 5 AM EDT Narrative 12/01/2012 12:02 PM EDT Examination PARATHYROID W/SPECT-CT &THYROID IMAGING Clinical History Primary hyperparathyroidism Comparison None Technique Technetium 99m sestamibi was administered intravenously in a dose of 19.5 mCi. 20 minutes later, an anterior image of the head, neck and chest was obtained. Tomographic imaging was performed with the addition of a low-dose CT scan for the purpose of attenuation correction and anatomic localization. ?? Two hours later, the anterior image was repeated. ?? Technetium 99m pertechnetate was administered intravenously in a dose of 19.8 mCi. After 20 minutes, the anterior image was repeated. ?? Findings There is a focus of increased activity projecting inferior to the right thyroid lobe and corresponding to a CT visualized nodule. This focus is not visible in the thyroid scan. ?? Impression Right lower pole parathyroid adenoma. Film and interpretation reviewed by the attending Procedure Note Musa Lancaster MD - 12/01/2012 Examination PARATHYROID W/SPECT-CT &THYROID IMAGING Clinical History Primary hyperparathyroidism Comparison None Technique Technetium 99m sestamibi was administered intravenously in a dose of 19.5mCi. 20 minutes later, an anterior image of the head, neck and chest wasobtained. Tomographic imaging was performed with the addition of a low-dose CT scanfor the purpose of attenuation correction and anatomic localization. Two hours later, the anterior image was repeated. Technetium 99m pertechnetate was administered intravenously in a dose of19.8 mCi. After 20 minutes, the anterior image was repeated. Findings There is a focus of increased activity projecting inferior to the rightthyroid lobe and corresponding to a CT visualized nodule. This focus is notvisible in the thyroid scan. Impression Right lower pole parathyroid adenoma. Film and interpretation reviewed by the attending Vincenzo Marmolejo MD IMG NM ORDERA BLES documented in this encounter Visit Diagnoses Not on filedocumented in this encounter Care Teams Windows Support Engineer Relationship Specialty Start Date End Date Jennie Resendiz MD [address] [place] [address] PCP - General 03/06/10 08/27/16 documented as of this encounter
--- OUTSIDE RECORDS SUMMARY | 2024-01-23 00:35 | XMS_ITS | Encounter Summary ---
[facility] [place] [address] Care Team Providers Care Painter Helper Spray Name Role Phone Jennie Resendiz MD Primary Care Provider [phone] Encounter Details Date Type Department Care Team (Late st Contact Info) Description 2012 3:15 PM EDT - 2012 4:15 PM EDT Surgery [place] [phone] Natividad Taveras MD [facility] [place] [address] COLONOSCOPY, DIAGNOSTIC (WRVU 3.26) Social History Tobacco Use Types Packs/Day Years [...] Sign Reading Time Taken Comments Blood Pressure 129/83 2012 4:39 PM EDT Pulse 85 2012 4:39 PM EDT Temperature - - Respiratory Rate 16 2012 4:39 PM EDT Oxygen Saturation 93% 2012 4:39 PM EDT Inhaled Oxygen Concentration - - Weight 82.6 kg (182 lb) 2012 1:29 PM EDT Height 165.1 cm (5' 5) 2012 1:29 PM EDT Body Mass Index 30.29 2012 1:29 PM EDT documented in this encounter Discharge Instructions * Discharge Instructions* Prerna Titus RN - 2012 4:44 PM EDT UPPER GI ENDOSCOPY Medications You may have a mild sore throat. Ice chips, popsicles, over the counter throat lozenges or spray may help numb your throat. This procedure should not cause a fever. Colonoscopy What to expect after the procedure You may feel a little more gassy or bloated than usual. This is normal. You should expect the return of normal bowel function in the 2 to 3 days. Activity Because of the sedation that you received your judgement and reaction time are effected ?? Go home and rest quietly for the remainder of the day. You may resume your normal activities tomorrow. ?? Change from one position to the next slowly. You may lose your balance unexpectedly ?? Be careful on stairs, as you may be unsteady on your feet FOR THE NEXT 24 HRS ?? DO NOT DRIVE OR OPERATE ANY MACHINERY ?? DO NOT DRINK ALCOHOLIC BEVERAGES ?? DO NOT SIGN LEGAL DOCUMENTS ?? If you are a smoker: DO NOT SMOKE WHILE YOU ARE ALONE Diet ?? Start by eating small portions of foods that ordinarily will not upset your stomach . Avoid gas producing foods for the next few days ?? Be gentle with what you choose to start with ?? Drink plenty of fluids ( unless your doctor has told you not to). IV SITE-- slight redness, or tenderness is normal. You can use warm compresses if you become concerned. If the tenderness +/or redness increases or foul drainage and a red streak occurs, please contact your PCP immediately When shoud you call for help? Call 911 anytime you think you may need emergency care. For example If you pass out ( loss of consciousness) If you pass maroon or bloody stools If you have severe belly pain Call your doctor now or seek immediate medical care If your stools are black and tarlike If your stools have streaks of blood, but you did not have a biopsy or any polyps removed If you have belly pain, or your belly is swollen and firm If you vomit If you have a fever If you are very dizzy Watch closely for changes in your health, and be sure to contact your doctor if you have any problems Your doctor will let you know when you will need your next colonoscopy. The results of your test and your risk for colorectal cancer will help your doctor decide how often you need to be checked. [facility] [phone] 8a-5p Same Day Endo [phone] 7a-8p Otherwise contact [phone] and ask to speak to the loss prevention operations manager market research consultant Follow up care is a oconnell part of your treatment and safety. Be sure to make and go to all appointments, and call your doctor if you are having problems. Discharge instructions reviewed with patient who expresses understanding documented in this encounter Medications at Time of Discharge Medication Sig Dispensed Refills Start Date End Date simvastatin (ZOCOR) 20 mg tablet Take 20 [...] of this encounter H&P Notes * Natividad Taveras MD - 2012 3:06 PM EDT Gastroenterology and Hepatology Pre-Procedure History and Physical Exam Procedure: EGD: Colonoscopy: Indication: Screening for varices and screening for colon cancer. Had HARDEN/MONA child's a cirrhosis. No history of bleeding. Chronic constipation. Patient Active Problem List Diagnoses Code ??? Right foot pain 729.5 ??? Neck pain 723.1 ??? Left elbow pain 719.42 ??? Asthma 493.90 ??? Chronic low back pain 724.2 ??? Restless leg syndrome 333.94 ??? Acid reflux 530.81 ??? Learning disability 315.2 ??? Low back pain 724.2 EXAM: HEENT: Airway examined, oropharynx clear LUNGS: Clear to auscultation HEART: Regular rate and rhythm, normal S1, S2 ABDOMEN: Normal bowel sounds, soft, non tender, non distended, A/P Proceed with the planned endoscopic procedure. Risks and benefits of the procedure explained to the patient. Consent signed. documented in this encounter Miscellaneous Notes * Miscellaneous - Provider, Scanning - 08/24/2012 9:50 PM EDT * Op Note - Natividad Taveras MD - 2012 5:33 PM EDT [facility] [place] Patient Name: Kallie Darling : [id number] MR#: [id number] Case Date: 2012 Surgeon: Surgeon(s) and Role: * Natividad Taveras MD - Primary Preoperative diagnosis: Poor prep, limited exam Please reschedule w/ a 2 day prep -VARICES Postoperative diagnosis: * No post-op diagnosis entered * Procedure(s): COLONOSCOPY, DIAGNOSTIC UPPER GI ENDOSCOPY Please see the Provation procedure report in the Procedures tab in eDH. * Miscellaneous - Provider, Scanning - 2012 2:38 PM EDT documented in this encounter Plan of Treatment Upcoming Encounters Date Type Department Care Team (Late st Contact Info) Description 02/27/2024 2:45 PM EST TH Visit (TeleHealth) [place] [address] Lashae Lorenzo MD [facility] [place] [address] documented as of this encounter Procedures Procedure Name Priority Date/Time Associated Diagnosis Comments UPPER GI ENDOSCOPY 2012 3: 13 PM EDT Poor prep, limited exam Please reschedule w/ a 2 day prep -VARICES COLONOSCOPY, DIAGNOSTIC (WRVU 3.26) 2012 3:13 PM EDT Poor prep, limited exam Please reschedule w/ a 2 day prep -VARICES UPPER GI ENDOSCOPY Routine 2012 3: 10 PM EDT COLONOSCOPY Routine 2012 3:10 PM EDT documented in this encounter Results * UPPER GI ENDOSCOPY (2012 3:10 PM EDT) [facility] Signature UPPER GI ENDOSCOPY [facility] Endoscopy Patient Name: Kallie Darling ? Procedure Date: 2012 3:10 PM ? Date of : 1960 ? Age: 52 ? Order #: [id number] ? Procedure: ? Upper GI endoscopy Indications: ? Cirrhosis rule out esophageal varices Providers: ? Sana Taveras MD, Mell Mixon, ? RN, Anita Conroy, Band Saw Runner Referring : ?Jennie Resendiz MD, Leisa Sher ? Pollis, MOUNTER [employer]UTES [employer] PICCOL[employer] Medicines: ? Midazolam 4 mg IV, Fentanyl 150 ? micrograms IV, Diphenhydramine 50 mg ? IV Complications: ? No immediate complications. Procedure: ? Pre-Anesthesia Assessment: ? - Prior [...] ? Examination: normal. ASA Grade ? Assessment: III - A patient with ? severe systemic disease. After ? reviewing the risks and benefits, the ? patient was deemed in satisfactory ? condition to undergo the procedure. ? The anesthesia plan was to use ? moderate sedation / analgesia ? (conscious sedation). Immediately ? prior to administration of ? medications, the patient was ? re-assessed for [...] ? endoscopy was accomplished without ? difficulty. ? Findings: ? The Z-line was regular and was found 41 cm from the ? incisors. Diminutive grade I varices were found in ? the lower third of the esophagus. These had no ? stigmata of recent bleeding. The varices had no red ? elen signs.Mild portal hypertensive gastropathy was ? found in the stomach. The examined duodenum was ? normal. ? Impression: ?- Z-line regular, 41 cm from the ? incisors. ? - Non-bleeding grade I esophageal ? varices. ? - Portal hypertensive gastropathy. ? - Normal examined duodenum. Recommendation: ?Follow-up in clinic with Ms. Woodard. ? __ L. Sulaiman Taveras MD 2012 4:15 PM Number of Addenda: 0 Note Initiated On: 2012 3:10 PM PROVATION 2012 3:10 PM EDT Jennie Resendiz MD GENERAL SURGICAL ORD ERABLES PROVATION * COLONOSCOPY (2012 3:10 PM EDT) COLONOSCOPY [facility] Endoscopy Patient Name: Kallie Darling ? Procedure Date: 2012 3:10 PM ? Date of : 1960 ? Age: 52 ? Order #: [id number] ? Procedure: ? Colonoscopy Indications: ? Screening for colorectal malignant ? neoplasm Providers: ? LAmrik Taveras MD, [place] Mixon, ? RN, Anita Conroy, Band Saw Runner Referring MD: ?Jennie Resendiz MD, Leisa Sher ? Pollis, MOUNTER FLUTES AND PICCOLOS Medicines: ? Fentanyl 100 micrograms IV, Midazolam ? 1 mg IV, Residual sedation present ? from EGD Complications: ? No immediate complications. Procedure: ? Pre-Anesthesia Assessment: ? - Prior [...] the endoscopy suite. Mental ? Status Examination: normal. Airway ? Examination: normal oropharyngeal ? airway and neck mobility. Respiratory ? Examination: clear to auscultation. ? CV Examination: normal. ASA Grade ? Assessment: III - A patient with ? severe systemic disease. After ? reviewing the risks and benefits, the ? patient was deemed in satisfactory ? condition to undergo the procedure. ? The anesthesia plan was to use ? moderate sedation / analgesia ? (conscious sedation). Immediately ? prior to administration of ? medications, the patient was ? re-assessed for [...] digital rectal exam was performed. ? The procedure, indications, benefits, ? risks [...] under direct visualization, ? advanced to the ascending colon. ? Careful inspection was made as the ? colonoscope was withdrawn. The ? colonoscopy was performed without ? difficulty. The patient tolerated the ? procedure well. The quality of the ? bowel preparation was poor. ? Findings: ? The perianal and digital rectal examinations were ? normal. There was a copious amount of thick, liquid ? stool throughout the colon. Multiple attempts at ? lavage were unsuccessful due to retained solid stools ? that could not be aspirated. The exam was aborted - ? likely within the ascending colon - as landmarks ? could not be safely visualized. Only large >1cm ? protruding lesions in the left colon would have been ? able to be detected by this exam. ? Impression: ?- Preparation of the colon was poor. Recommendation: ?- Per guidelines, annual FIT ? hemoccult testing is an option for ? screening, given that she is average ? risk. Repeat colonoscopy within one ? year is reasonable. FOR THE NEXT ? EXAM, A TWO DAY PREP WITH CLEAR ? LIQUIDS AND TWO GALLONS OF GOLYTELY ? WILL BE NECESSARY FOR AN ADEQUATE ? EXAM. ? - Follow-up with Dr. Resendiz to discuss ? options for colon cancer screening. ? __ L. Sulaiman Taveras MD 2012 4:44 PM Number of Addenda: 0 Note Initiated On: 2012 3:10 PM PROVATION 2012 3:10 PM EDT Jennie Resendiz MD GENERAL SURGICAL ORD ERABLES PROVATION documented in this encounter Visit Diagnoses Not on filedocumented in this encounter Administered Medications Inactive Administered Medications - up to 3 most recent administrations Medication Order MAR Action Action Date Dose Rate Site diphenhydrAMINE (BENADRYL) injection ONCE PRN, Starting on Fri08/21/12 at 1540, Until Fri08/21/12 at 2052, Itching, Intra-Operative (Intra-Procedure), Routine Given 2012 3:53 PM EDT 25 mg Given 2012 3:40 PM EDT 25 mg fentaNYL 50mcg/mL injection ONCE PRN, Starting on Fri08/21/12 at 1540, Until Fri08/21/12 at 2052, Pain, Intra-Operative (Intra-Procedure), Routine Given 2012 4:24 PM EDT 5 0 mcg Given 2012 4:20 PM EDT 50 mcg Given 2012 4:04 PM EDT 50 mcg midazolam (VERSED) injection ONCE PRN, Starting on Fri08/21/12 at 1540, Until Fri08/21/12 at 2052, Sleep, Intra-Operative (Intra-Procedure), Routine Given 2012 4:20 PM EDT 1 mg Given 2012 4:08 PM EDT 1 mg Given 2012 4:04 PM EDT 1 mg sodium chloride 0.9% infusion 30 mL/hr, Intravenous, CONTINUOUS, Starting on Fri08/21/12 at 1230, Until Fri08/21/12 at 2052, Endoscopy (Day of Procedure) New Bag 2012 12:30 PM EDT 30 mL/hr 30 mL/hr documented in this encounter Active and Recently Administered Medications Times are shown in EDT. Continuous Medication Order 08/19/2012 08/20/2012 2012 sodium chloride 0.9% infusion (CANCELED) 30 mL/hr, Intravenous, CONTINUOUS, Starting on Fri08/21/12 at 1230, Until Fri08/21/12 at 2052, Endoscopy (Day of Procedure) 1230 (New Bag - Prov ider: Mariposa Bergman RN) PRN Medication Order 08/19/2012 08/20/2012 2012 diphenhydrAMINE (BENADRYL) injection (CANCELED) ONCE PRN, Starting on Fri08/21/12 at 1540, Until Fri08/21/12 at 2052, Itching, Intra-Operative (Intra-Procedure), Routine 1540 (Given - Provid er: [place] Mixon RN)1553 (Given - Provider: Mell Mixon RN) fentaNYL 50mcg/mL injection (CANCELED) ONCE PRN, Starting on Fri08/21/12 at 1540, Until Fri08/21/12 at 2052, Pain, Intra-Operative (Intra-Procedure), Routine 1540 (Given - Provid er: Mell Mixon RN)1553 (Given - Provider: Mell Mixon RN)1604 (Given - Provider: Mell Mixon RN)1620 (Given - Provider: Mell Mixon RN)1624 (Given - Provider: Mell Mixon RN) midazolam (VERSED) injection (CANCELED) ONCE PRN, Starting on Fri08/21/12 at 1540, Until Fri08/21/12 at 2052, Sleep, Intra-Operative (Intra-Procedure), Routine 1540 (Given - Provid er: Mell Mixon RN)1553 (Given - Provider: Mell Mixon RN)1604 (Given - Provider: Mell Mixon RN)1608 (Given - Provider: Mell Mixon BRY)3880 (Given - Provider: Mell Mixon RN) documented in this encounter Care Teams Painter Helper Spray Relationship Specialty Start Date End Date Jennie Resendiz MD [address] [facility] [address] [place] [address] PCP - General 03/06/10 08/27/16 documented as of this encounter
--- OUTSIDE RECORDS SUMMARY | 2024-01-23 00:35 | XMS_ITS | Encounter Summary ---
[place] [address] Care Team Providers Care Train Operations Supervisor Name Role Phone Jennie Resendiz MD Primary Care Provider [phone] Encounter Details Date Type Department Care Team (Latest Contact Info) Description 02/28/2012 3:00 PM EST Procedure [place] [id number] Smith Garcia MD [address] [place] [address] Hematuria (Primary Dx) Discharge Disposition: Home Social History [...] Sign Reading Time Taken Comments Blood Pressure 126/72 02/28/2012 2:23 PM EST Pulse 77 02/28/2012 2:23 PM EST Temperature - - Respiratory Rate - - Oxygen Saturation - - Inhaled Oxygen Concentration - - Weight - - Height - - Body Mass Index - - documented in this encounter Patient Instructions * Patient Instructions* Yas Hampton LPN - 02/28/2012 2:19 PM EST Instructions following Cystoscopy Activity: As tolerated by your comfort level. Fluids: You should increase your water today. Avoid coffee, tea and cola. You do not need to [id number] ounces of water today. Urination: You will likely have a small amount of blood in your urine for the next several days. This is normal; however, if you are passing large amounts of blood clots or are unable to void please call our office at [phone] before 5PM or [phone] after hours. Please call if: * you have copious blood in your urine * fevers greater than 101.3 F * you are unable to void The number for questions is [phone] before 5 PM weekdays and [phone] after 5 PM and weekends. Follow-up: You will be notified when your ultrasound results are complete. documented in this encounter Progress Notes * Smith Garcia MD - 02/28/2012 2:29 PM EST See documentation in procedure visit from 02/28/12. documented in this encounter Plan of Treatment Upcoming Encounters Date Type Department Care Team (Late st Contact Info) Description 02/27/2024 2:45 PM EST TH Visit (TeleHealth) [place] [address] Lashae Lorenzo MD [facility] [place] [address] Scheduled Orders Name Type Priority Associated Diagnoses Orde r Schedule Cystoscopy PROCEDURE Routine Hematuria Ordered: 02/28/2012 documented as of this encounter Procedures Procedure Name Priority Date/Time Associated Diagnosis Comments NON-SOCIAL MEDIA ANALYST FINAL REPORT Routine 02/28/2012 3:53 PM EST URINALYSIS WITH REFLEX CULTURE Routine 02/28/2012 2:30 PM EST Hematuria CYTOPATHOLOGY NON-GYNECOLOGICAL Routine 02/28/2012 2:20 PM EST Hematuria documented in this encounter Results * NON-SOCIAL MEDIA ANALYST FINAL REPORT (02/28/2012 3:53 PM EST) Non-Seafood Packer Final Report ? [facility] ? Provider: ?? SMITH GARCIA ?Pt. Name: ?? EMPLOYEE RELATIONS ASSISTANTKALLIE DUENAS ? Acc #: ?[id number] ?Pt. ? Col Date: ?? 02/28/2012 ?/Sex: ?1960,(51 years),Female ? Rec Date: ?? 02/28/2012 ?LOC: ?5B ? CYTOPATHOLOGY: ??NGYN ? ---Adequacy--- ? Specimen submitted is satisfactory. ? ---Cytopathologic Diagnosis--- ? Negative for Malignancy ? 03/03/12 ?Screened by: ? LKC ? Rescreened by: ?? EJG ? 03/04/12 ?Verified by: ? Boris STOCKTON, James Keller ?Cytopathologist ?(Electronic Signature) ? ---Comment--- ? Urine, Voided: Urothelial cells (some degenerated) and squamous cells ? present. ? ---Clinical Information--- ? Specimen Source: ?Urine, Voided ? Pertinent Clinical Data and Significant Therapy: ?Hematuria ? Clinical Impression: ?Hematuria ? Pertinent Radiologic Findings: ?(none provided) ? Gross Description: ?Received in 50% ETOH, approximately 80 ml. total volume of cloudy, ? orange fluid. ?Total Preparation: Liquid Based Prep 1. LILLIE HUIZAR 02/28/2012 3:53 PM EST Smith Garcia MD PATHOLOGY/CYTOLOGY Betty SAMANO LILLIE HUIZAR * US retroperitoneal complete (02/28/2012 3:21 PM EST) Anatomical Region Laterality Modality Abdomen Ultrasound 02/28/2012 3:21 PM EST Narrative 02/28/2012 3:33 PM EST ? Renal ? (Signed Final 02/28/2012 03:32 pm) Patient Info ID: ? [id number] ? : ??60 (51 yrs) Name: ? KALLIE SMART ?Visit Date: 02/28/2012 03:20 pm Performed By Performed By: ?Miladis Leslie RDMS Associate: ? Esha Cain MD Attending: ? Matthew Nolasco MD. Referred By: ? SMITH GARCIA MD Service(s) Provided URETRO - Retroperitoneal Complete - [id number] ? [id number] Indications Hematuria Comparison None Right Kidney Size (cm) ?L: ??12 Cortical Thickness: ?Normal Cortical Echogenicity: ?? Normal Hydronephrosis: ?No sonographic evidence Left Kidney Size (cm) ?L: ??13.1 Cortical Thickness: ?Normal Cortical Echogenicity: ?? Normal Hydronephrosis: ?No sonographic evidence Urinary Bladder Pre-void (cm) ? L: ??5.1 ? AP: ??4.7 ? TV: ??5 Vol (ml): ?62.8 Comment: ?Partially distended, normal contour Impression Ultrasound - ??Retroperitoneal Complete - Summary Normal renal and bladder ultrasound. I ??viewed the images and agree with the above interpretation. Thank you for allowing us to participate in the care of KALLIE SMART. Please do not hesitate to call if you have any questions. ? Matthew Nolasco MD Electronically Signed Final Report ?? 02/28/2012 03:32 pm Film and interpretation reviewed by the attending Procedure Note Matthew Nolasco MD - 02/28/2012 Renal (Signed Final 02/28/2012 03:32 pm) Patient Info ID: [id number] : 60 (51 yrs) Name: KALLIE SMART Visit Date: 02/28/2012 03:20 pm Performed By Performed By: Miladis Leslie [facility] Associate: Ant STOCKTON Eiman Attending: Matthew Nolasco MD Referred By: SMITH GARCIA MD Service(s) Provided URETRO - Retroperitoneal Complete - [id number] Indications Hematuria Comparison None Right Kidney Size (cm) L: 12 Cortical Thickness: Normal Cortical Echogenicity: Normal Hydronephrosis: No sonographic evidence Left Kidney Size (cm) L: 13.1 Cortical Thickness: Normal Cortical Echogenicity: Normal Hydronephrosis: No sonographic evidence Urinary Bladder Pre-void (cm) L: 5.1 AP: 4.7 TV: 5 Vol (ml): 62.8 Comment: Partially distended, normal contour Impression Ultrasound - Retroperitoneal Complete - Summary Normal renal and bladder ultrasound. I viewed the images and agree with the above interpretation. Thank you for allowing us to participate in the care of KALLIE SMART. Please do not hesitate to call if you have any questions. Matthew Nolasco MD Electronically Signed Final Report 02/28/2012 03:32 pm Film and interpretation reviewed by the attending Smith Garcia MD IMG US GEN ORDERABLE S * (ABNORMAL) Urinalysis with microscopic (02/28/2012 2:30 PM EST) Glucose, Urine Dipstick Negative Negative mg/dL CERNER MILLENNIUM Protein, Urine Dipstick Trace(A) Neg mg/dL CERNER MILLENNIUM Bilirubin, Urine Dipstick Negative Negative mg/dL CERNER MILLENNIUM Urobilinogen, Urine Dipstick Normal mg/dL CERNER MILLENNIUM pH, Urn (dipstick) 6.0 5.0 - 8.0 CERNER MILLENNIUM Blood, Urine Dipstick Negative mg/dL CERNER MILLENNIUM Ketone, Urine Dipstick Negative mg/dL CERNER MILLENNIUM Nitrite, Urine Dipstick Negative CERNER MILLENNIUM Leukocytes, Urine Dipstick Negative mcL CERNER MILLENNIUM Appearance, Urine Dipstick Hazy(A) Clear CERNER MILLENNIUM Specific [place] Urine Automated 1.016 1.002 - 1.030 CERNER MILLENNIUM Color, Urine Dipstick Yellow Yellow CERNER MILLENNIUM RBC, Urine Not Present 0 - 4 CERNER MILLENNIUM WBC, Urine 3 0 - 5 /HPF CERNER MILLENNIUM Bacteria, Urine Few /HPF CERNER MILLENNIUM Squamous Epithelial Cells, Urine 4 <=4 /HPF CERNER MILLENNIUM Urine specimen (specimen) 02/28/2012 2:30 PM EST 02/28/2012 3:38 PM EST Narrative Resulting Agency Comment Spec In Lab Smith Garcia MD URINE ORDERABLES CERNER MILLENNIUM * Cytopathology Non-Gynecological (02/28/2012 2:20 PM EST) AP Specimen 02/28/2012 2:20 PM EST 02/28/2012 2:20 PM EST Narrative LILLIE HUIZAR - 02/28/2012 2:20 PM EST Specimen requisition ordered. ??Separate Pathology report to follow Smith Garcia MD PATHOLOGY/CYTOLOGY O SELWYN LILLIE HUIZAR documented in this encounter Visit Diagnoses Diagnosis Hematuria- Primary Hematuria, unspecified Hematuria Hematuria, unspecified documented in this encounter Care Teams Train Operations Supervisor Relationship Specialty Start Date End Date Jennie Resendiz MD [address] [place] [address] PCP - General 03/06/10 08/27/16 documented as of this encounter
--- OUTSIDE RECORDS SUMMARY | 2024-01-23 00:35 | XMS_ITS | Encounter Summary ---
[place] [address] Care Team Providers Care Peer Health Promoter Name Role Phone Jennie Resendiz MD Primary Care Provider [phone] Encounter Details Date Type Department Care Team (Late st Contact Info) Description 02/28/2012 2:44 PM EST - 02/28/2012 11:59 PM EST Hospital [place] [phone] Hematuria Social History Tobacco Use Types Packs/Day Years [...] Sig Dispensed Refills Start Date End Date fluticasone-salmeterol (ADVAIR) 500-50 mcg/dose diskus inhaler Inhale [...] EST TH Visit (TeleHealth) [place] [address] Lashae Lorenzo MD [facility] [place] [address] documented as of this encounter Procedures Procedure Name Priority Date/Time Associated Diagnosis Comments US RETROPERITONEAL COMPLETE Routine 02/28/2012 3:21 PM EST Hematuria documented in this encounter Results * US retroperitoneal complete (02/28/2012 3:21 PM EST) Anatomical Region Laterality Modality Abdomen Ultrasound 02/28/2012 3:21 PM EST Narrative 02/28/2012 3:33 PM EST ? Renal ? (Signed Final 02/28/2012 03:32 pm) Patient Info ID: ? [id number] ? : ??60 (51 yrs) Name: ? KALLIE SMART ?Visit Date: 02/28/2012 03:20 pm Performed By Performed By: ?Miladis Leslie [facility] Associate: ? Ant STOCKTON, Esha Attending: ? Gaurav STOCKTON, Matthew Tse Referred By: ? SMITH NUNEZ MD Service(s) Provided URETRO - Retroperitoneal Complete - [id number] ? [id number] Indications Hematuria Comparison None Right Kidney Size [...] Final 02/28/2012 03:32 pm) Patient Info ID: [id number] : 60 (51 yrs) Name: KALLIE SMART Visit Date: 02/28/2012 03:20 pm Performed By Performed By: Miladis Leslie [facility] Associate: Esha Cain MD Attending: Matthew Nolasco MD Referred By: SMITH NUNEZ MD Service(s) Provided URETRO - Retroperitoneal Complete - [id number] Indications Hematuria Comparison None Right Kidney Size [...] and interpretation reviewed by the attending Smith Nunez MD IMG US GEN ORDERABLE S documented in this encounter Visit Diagnoses Diagnosis Hematuria Hematuria, unspecified documented in this encounter Care Teams Peer Health Promoter Relationship Specialty Start Date End Date Jennie Resendiz MD [facility] [address] [place] [address] PCP - General 03/06/10 08/27/16 documented as of this encounter
--- OUTSIDE RECORDS SUMMARY | 2024-01-23 00:35 | XMS_ITS | Encounter Summary ---
Author Organization [facility] [place] [address] Care Team Providers Care Electrical Assistant Name Role Phone Jennie Resendiz MD Primary Care Provider [phone] Encounter Details Date Type Department Care Team (Late st Contact Info) Description 02/28/2012 2:35 PM EST Office [place] [address] Shad Garcia MD [address] [place] [address] Hematuria (Primary Dx) Discharge Disposition: Home Social [...] as of this encounter Progress Notes * Shad Garcia MD - 02/28/2012 2:26 PM EST See note from procedure visit, same date. documented in this encounter Plan of Treatment Upcoming Encounters Date Type Department Care Team (Late st Contact Info) Description 02/27/2024 2:45 PM EST TH Visit (TeleHealth) [place] [address] Lashae Lorenzo MD [facility] [place] [address] documented as of this encounter Visit Diagnoses Diagnosis Hematuria- Primary Hematuria, unspecified documented in this encounter Care Teams Electrical Assistant Relationship Specialty Start Date End Date Jennie Resendiz MD [address] [facility] [address] [place] [address] PCP - General 03/06/10 08/27/16 documented as of this encounter
--- OUTSIDE RECORDS SUMMARY | 2024-01-23 00:35 | XMS_ITS | Encounter Summary ---
[place] [address] Care Team Providers Care Coke Oven Mason Name Role Phone Jennie Resendiz MD Primary Care Provider [phone] Encounter Details Date Type Department Care Team (Late st Contact Info) Description 11/24/2012 11:40 AM EDT [place] [phone] Smith Nunez MD [address] [place] [address] Renal stone (Primary Dx) Discharge Disposition: Home Social History [...] Sign Reading Time Taken Comments Blood Pressure 116/68 11/24/2012 11:09 AM EDT Pulse 69 11/24/2012 11:09 AM EDT Temperature - - Respiratory Rate 18 11/24/2012 11:09 AM EDT Oxygen Saturation - - Inhaled Oxygen Concentration - - Weight 105.2 kg (232 lb) 11/24/2012 11:09 AM EDT Height 165.1 cm (5' 5) 11/24/2012 11:09 AM EDT Body Mass Index 38.61 11/24/2012 11:09 AM EDT documented in this encounter Progress Notes * Smith Nunez MD - 11/24/2012 11:33 AM EDT This is a 51 year old white female with a history of cirrhosis followed at the [facility] who was seen for possible gross hematuria in 02/23. She described reddish urine 2-3x per week. She denied dysuria, suprapubic pain, urgency. She had had recent urinary frequency but admitted to drinking substantial fluids. She denies fever or chills. She remarked on chronic constipation and bloating. She also reported pressure on her right flank that is worse with movement and resting on her right side. She is a cigarette smoker. She denies a history of stones, or urological malignancy. Shedenies recent UTI or pyelonephritis, and denies a history of recurrent UTI. She had a recent UA (non-microscopic) showing trace leukocytes only. A culture was negative. She does have chronic back pain and is followed by the pain service. She had outside imaging exams including: Outside Abdominal CT Scan 12/13/11: The liver [...] abdominal mass, adenopathy, or ascites is appreciated. She underwent a cystoscopy in 02/23 that was normal. Urine cytology and culture were negative. UA showed no sign of microhematuria. She had a renal sonogram that was normal. In 09/24, she had an abdominal sonogram that showed a small nonobstructive right renal stone only. She remarks on some mild intermittent discomfort with urination. Occasion reddish urine but not clear if this is truly hematuria. Reports chronic back pain without acute change. Exam: S NTND No CVAT; right paraspinous muscle tenderness w/ palpation A: Possible gross hematuria; urine testing argues that this is not likely present in correlation with her observations; s/p negative evaluation Nonobstructive right renal stone; there is no hydronephrosis and this is incidental P: Repeat ua, cx, cytology today If normal, RTC 1 year for repeat urine testing Renal sonogram in 1 year for monitoring of small stone 16 of 17 min spent in counseling and coordination of care documented in this encounter Miscellaneous Notes * Addendum Note - Shaila Otto LPN - 11/24/2012 1:21 PM EDTAddended by: SHAILA OTTO on: 11/24/2012 01:21 PM Modules accepted: Orders documented in this encounter Plan of Treatment Upcoming Encounters Date Type Department Care Team (Late st Contact Info) Description 02/27/2024 2:45 PM EST TH Visit (TeleHealth) [place] [address] Lashae Lorenzo MD [facility] [place] [address] documented as of this encounter Procedures Procedure Name Priority Date/Time Associated Diagnosis Comments URINE CULTURE Routine 11/24/2012 4:15 PM EDT Renal stone NON-CONCRETE TECHNICIAN FINAL REPORT Routine 11/24/2012 1:12 PM EDT URINALYSIS WITH REFLEX CULTURE Routine 11/24/2012 1:12 PM EDT Renal stone CYTOPATHOLOGY NON-GYNECOLOGICAL Routine 11/24/2012 1:12 PM EDT Renal stone documented in this encounter Results * Urine culture Clean Catch Urine (11/24/2012 4:15 PM EDT) Urine Culture ? Patient Name: KALLIE DARLING ?Ordered By: SMITH NUNEZ ? MR#: [id number] ?LOC: ??5B ? /Sex: ??1960 (52 years), ? Female ? PROCEDURE: Urine Culture ?SOURCE: T CC ? COLLECTED: 11/24/2012 16:15 ? STARTED: 11/24/2012 16:16 ? FINAL REPORT ? Final Report ? Verified:11/12 15:28 ? No growth (Less than 1,000 cfu/ml). ? __ [facility] Urine specimen obtained by clean catch procedure (specimen) 11/24/2012 4:15 PM EDT 11/24/2012 4:15 PM EDT Narrative Resulting Agency Comment Spec In Lab Smith Nunez MD MICROBIOLOGY - GENER AL ORDERABLES LILLIE HUIZAR * Non-Farm Products Shipper Final Report (11/24/2012 1:12 PM EDT) Non-Farm Products Shipper Final Report ? [facility] ? Provider: ?? SMITH NUNEZ ?Pt. Name: ?? KALLIE DARLING ? Acc #: ?[id number] ?Pt. ? Col Date: ?? 11/24/2012 ? /Sex: ?1960,(52 years),Female ? Rec Date: ?? 11/24/2012 ? LOC: ?5B ? CYTOPATHOLOGY: ??NGYN ? ---Adequacy--- ? Specimen submitted is satisfactory. ? ---Cytopathologic Diagnosis--- ? Negative for Malignancy ? 11/25/12 ?Screened by: ? LMY ? Rescreened by: ?? XL ? 11/25/12 ?Verified by: ? Dennis Morris MD ?Pathologist ?(Electronic Signature) ? ---Comment--- ? Urine, Catheterized: ? Predominantly squamous cells, and bacteria are present. ? ---Clinical Information--- ? Specimen Source: ?Urine, Catheterized ? Pertinent Clinical Data and Significant Therapy: ?Hematuria ? Clinical Impression: ?Hematuria ? Pertinent Radiologic Findings: ?(not provided) ? Gross Description: ?Received in 50% ETOH, approximately 30 ml. total volume of clear, yellow ? fluid. ?Total Preparation: Liquid Based Prep 1. CERNER MILLENNIUM 11/24/2012 1:12 PM EDT Smith Nunez MD PATHOLOGY/CYTOLOGY O SELWYN Performing Organization Address [facility] Phone Number CERNER MILLENNIUM * Cytopathology Non-Gynecological (11/24/2012 1:12 PM EDT) AP Specimen 11/24/2012 1:12 PM EDT 11/24/2012 1:12 PM EDT Narrative CERNER MILLENNIUM - 11/24/2012 1:12 PM EDT Specimen requisition ordered. ??Separate Pathology report to follow Smith Nunez MD PATHOLOGY/CYTOLOGY O SELWYN Performing Organization Address [facility] Phone Number CERNER MILLENNIUM * (ABNORMAL) Urinalysis with microscopic (11/24/2012 1:12 PM EDT) Glucose, Urine Dipstick Negative Negative mg/dL CERNER MILLENNIUM Protein, Urine Dipstick Negative mg/dL CERNER MILLENNIUM Bilirubin, Urine Dipstick Negative Negative mg/dL CERNER MILLENNIUM Urobilinogen, Urine Dipstick Normal mg/dL CERNER MILLENNIUM pH, Urn (dipstick) 6.5 5.0 - 8.0 CERNER MILLENNIUM Blood, Urine Dipstick Trace(A) Neg CERNER MILLENNIUM Ketone, Urine Dipstick Negative mg/dL CERNER MILLENNIUM Nitrite, Urine Dipstick Negative CERNER MILLENNIUM Leukocytes, Urine Dipstick Negative mcL CERNER MILLENNIUM Appearance, Urine Dipstick Clear Clear CERNER MILLENNIUM Specific [place] Urine Automated 1.004 1.002 - 1.030 CERNER MILLENNIUM Color, Urine Dipstick Light Yellow Yellow CERNER MILLENNIUM RBC, Urine 1 0 - 4 /HPF CERNER MILLENNIUM WBC, Urine <1 0 - 5 /HPF CERNER MILLENNIUM Squamous Epithelial Cells, Urine 5(H) <=4 /HPF CERNER MILLENNIUM Urine specimen (specimen) 11/24/2012 1:12 PM EDT 11/24/2012 3:42 PM EDT Narrative Resulting Agency Comment Spec In Lab Smith Nunez MD URINE ORDERABLES LILLIE HUIZAR documented in this encounter Visit Diagnoses Diagnosis Renal stone- Primary Calculus of kidney documented in this encounter Care Teams Coke Oven Mason Relationship Specialty Start Date End Date Jennie Resendiz MD [address] [place] [address] PCP - General 03/06/10 08/27/16 documented as of this encounter
--- OUTSIDE RECORDS SUMMARY | 2024-01-23 00:35 | XMS_ITS | Encounter Summary ---
[place] [address] Care Team Providers Care Railway Switch Operator Name Role Phone Jennie Resendiz MD Primary Care Provider [phone] Encounter Details Date Type Department Care Team (Late st Contact Info) Description 12/01/2012 11:00 AM EDT - 12/01/2012 11:59 PM EDT Hospital En[place] [address] Social History Tobacco Use Types [...] EST TH Visit (TeleHealth) [place] [address] Lashae Lorenzo MD [facility] [place] [address] documented as of this encounter Visit Diagnoses Not on filedocumented in this encounter Care Teams Railway Switch Operator Relationship Specialty Start Date End Date Jennie Resendiz MD [address] [place] [address] PCP - General 03/06/10 08/27/16 documented as of this encounter
--- OUTSIDE RECORDS SUMMARY | 2024-01-23 00:35 | XMS_ITS | Encounter Summary ---
[place] [address] Care Team Providers Care Can Dryer Name Role Phone Jennie Resendiz MD Primary Care Provider [phone] Encounter Details Date Type Department Care Team (Late st Contact Info) Description 09/08/2013 Telephone [place] [phone] Libia Arguello Social History Tobacco Use Types Packs/Day Years [...] encounter Miscellaneous Notes * Telephone Encounter - Libia Oliver - 09/08/2013 10:49 AM EDT LETTER MAILED 08/25/2013 01:41PM [facility] PHONE [facility], 2ND LETTER 09/02/2013 05:30PM KIM[facility] FINAL LETTER 09/08/2013 10:48AM [facility] documented in this encounter Plan of Treatment Upcoming Encounters Date Type Department Care Team (Late st Contact Info) Description 02/27/2024 2:45 PM EST TH Visit (TeleHealth) [place] [address] Lashae Lorenzo MD [facility] [place] [address] documented as of this encounter Visit Diagnoses Not on filedocumented in this encounter Care Teams Can Dryer Relationship Specialty Start Date End Date Jennie Resendiz MD [facility] [address] [facility] [address] [place] [address] PCP - General 03/06/10 08/27/16 documented as of this encounter
--- OUTSIDE RECORDS SUMMARY | 2024-01-23 00:35 | XMS_ITS | Encounter Summary ---
Author Organization [facility] [place] [address] Care Team Providers Care Building Services Supervisor Name Role Phone Jennie Resendiz MD Primary Care Provider [phone] Encounter Details Date Type Department Care Team (Latest Contact Info) Description 12/01/2012 8:27 AM EDT - 12/01/2012 11:59 PM EDT Hospital Encounter XRay at [address] [place] [address] CLINIC, Vincenzo Escobar MD [facility] [place] [address] Samir Fuentes MD [facility] [address] Hyperparathyroidism Discharge Disposition: Home Social History Tobacco Use [...] EST TH Visit (TeleHealth) [place] [address] Lashae Lorenzo MD [facility] [place] [address] documented as of this encounter Procedures Procedure Name Priority Date/Time Associated Diagnosis Comments DXA CENTRAL SPINE, HIP, AND/OR WHOLE BODY (GENERIC) Routine 12/01/2012 9:00 AM EDT Hyperparathyroidism, unspecified documented in this encounter Results * Dexa central-spine, hip, and/or whole body (12/01/2012 9:00 AM EDT) Anatomical Region Laterality Modality C-spine, Hip N/A Radiographic Talia ging 12/01/2012 9:00 AM EDT Narrative 12/04/2012 2:18 PM EDT Examination DXA CENTRAL-SPINE,HIP, AND/OR WHOLE BODY Clinical History osteoporosis, hyperparathyroidism;BASELINE Technique Scans were acquired at the lumbar spine, left hip, left forearm. Findings Lowest T-score at a diagnostic region of interest: T-score: -1.4,ALISA: Femoral neck, WHO diagnosis: Low bone mass or osteopenia Impression The measurements satisfied the WHO classification for low bone mass or osteopenia. The fracture risks are increased. Consider continual monitor . _ Estimating Fracture Risk: The relationship between bone mineral density (BMD) and risk of fracture is well established. As BMD decreases, risk increases. Quantifying risk is difficult and is usually limited to estimation of the relative risk - a term which may have limited value when trying to discuss an individual's risk. Estimating the absolute risk for a patient requires an understanding of the incidence rate in a given population and consideration of multiple, partially independent, risk factors in addition to BMD. The World Health Organization (WHO) has developed a fracture risk prediction tool that calculates a ten-year risk of major osteoporotic fracture based on femoral neck bone density measurements and nine clinical risk factors for individuals who have not been treated for osteoporosis. This is available through an interactive web-based interface (http://www.shef.ac.uk/FRAX/) and can be used to estimate a given patient's absolute risk of major osteoporotic fracture or hip fracture over the next 10 years. These estimates may prove useful when discussing risk with a patient. It is important, however, to understand the tool's limitations and how a given individual's risk might differ from the tool's estimate. The tool does not take into account the dose-response associated with most risk factors. For example, the significant increase in risk associated with multiple prior fractures compared to a single prior fracture is not taken into account. Similarly, the location of a previous fracture, the amount of glucocorticoids and number of cigarettes smoked are not considered. These limitations are discussed in a Frequently Asked Questions section of the FRAX website which you are encouraged to review. DEXA data sheets with BMD measurements and plots are available in ENetadmin under the imaging tab. Paper copies will be sent to providers without ENetadmin access. If you have received this report without the data sheet and do not have access to [employer], please contact Radiology Rehabilitation Tech at [phone] Friday thru Friday 8am-4pm. Procedure Note Sherice Frausto MD - 12/04/2012 Examination DXA CENTRAL-SPINE,HIP, AND/OR WHOLE BODY Clinical History osteoporosis, hyperparathyroidism;BASELINE Technique Scans were acquired at the lumbar spine, left hip, left forearm. Findings Lowest T-score at a diagnostic region of interest: T-score: -1.4,ALISA: Femoral neck, WHO diagnosis: Low bone mass orosteopenia Impression The measurements satisfied the WHO classification for low bone mass or osteopenia. The fracture risks are increased. Consider continual monitor . _ Estimating Fracture Risk: The relationship between bone mineral density (BMD) and risk of fractureis well established. As BMD decreases, risk increases. Quantifying risk is difficult and is usually limited to estimation of the relative risk - aterm which may have limited value when trying to discuss an individual's risk. Estimating the absolute risk for a patient requires an understanding ofthe incidence rate in a given population and consideration of multiple,partially independent, risk factors in addition to BMD. The World Health Organization (WHO) has developed a fracture riskprediction tool that calculates a ten-year risk of major osteoporotic fracture basedon femoral neck bone density measurements and nine clinical risk factors for individuals who have not been treated for osteoporosis. This is available through an interactive web-based interface (http://www.shef.ac.uk/FRAX/)and can be used to estimate a given patient's absolute risk of majorosteoporotic fracture or hip fracture over the next 10 years. These estimates may prove useful when discussing risk with a patient. It is important, however, to understand the tool's limitations and how a given individual's risk might differ from the tool's estimate. The tool does not take into account the dose-response associated with most risk factors. For example, thesignificant increase in risk associated with multiple prior fractures compared to asingle prior fracture is not taken into account. Similarly, the location of aprevious fracture, the amount of glucocorticoids and number of cigarettes smokedare not considered. These limitations are discussed in a Frequently AskedQuestions section of the FRAX website which you are encouraged to review. DEXA data sheets with BMD measurements and plots are available in E-DHunder the imaging tab. Paper copies will be sent to providers without E-DHaccess. If you have received this report without the data sheet and do not haveaccess to E-DH, please contact Radiology Rehabilitation Tech at [phone] Fridaythru Friday 8am-4pm. Samir Fuentes MD IMG DEXA ORDERABL ES documented in this encounter Visit Diagnoses Diagnosis Hyperparathyroidism Hyperparathyroidism, unspecified documented in this encounter Care Teams Building Services Supervisor Relationship Specialty Start Date End Date Jennie Resendiz MD [address] [place] [address] PCP - General 03/06/10 08/27/16 documented as of this encounter
--- OUTSIDE RECORDS SUMMARY | 2024-01-23 00:35 | XMS_ITS | Encounter Summary ---
[facility] [place] [address] Care Team Providers Care C D Stripper Name Role Phone Jennie Jackson MD Primary Care Provider [phone] Reason for Visit * Reason Comments Establish Care hyperparathyroidism Encounter Details Date Type Department Care Team (Latest Contact Info) Description 12/21/2012 8:00 AM EDT Office Visit [place] [address] Bright Woods MD [facility] [place] [address] Hyperparathyroidism (Primary Dx) Discharge Disposition: Home Social History [...] Sign Reading Time Taken Comments Blood Pressure 154/94 12/21/2012 8:21 AM EDT Pulse 79 12/21/2012 8:21 AM EDT Temperature - - Respiratory Rate 16 12/21/2012 8:21 AM EDT Oxygen Saturation 99% 12/21/2012 8:21 AM EDT Inhaled Oxygen Concentration - - Weight 110.7 kg (244 lb) 12/21/2012 8:21 AM EDT Height 165.1 cm (5' 5) 12/21/2012 8:21 AM EDT Body Mass Index 40.6 12/21/2012 8:21 AM EDT documented in this encounter Progress Notes * Bright Woods MD - 12/21/2012 10:00 AM EDT See H&P in Surgical Consult on 12/21/2012. documented in this encounter H&P Notes * Bright Woods MD - 12/21/2012 10:07 AM EDT Reason for Visit: Kallie Darling is a 52 y.o. female who is seen in consultation per Drs. JENNIE JACKSON MD and Vincenzo Rhodes MD for evaluation and management of primary hyperparathyroidism. History of Present Illness: She is an extremely poor historian who apparently had a CMP that noted an elevated calcium. She has no symptoms save for noc x 3-4 and a 1 loss in height. 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 She is post menopausal and is not on hormone replacement. She has no history of head or neck irradiation and has no family history of hypercalcemia or parathyroid adenoma. ROS: No H/O asthma, ND, stroke, pulmonary embolus or phlebitis. Comprehensive review of systems otherwise negative and non-contributory. PMSH: Surgical history: WHIT; lap anyi; inguinal hernia; left thumb Active medical problems: Cirrhosis with esophageal varises; Hep A&B positive; obesity; ETOH dependence; HLD; GERD; sleep apnea; asthma; depression Tobacco: (x) Current smoker, < 1 PPD, > 30 Pack-years ETOH: < daily I have reviewed the relevant laboratory tests and imaging studies. Current Outpatient Prescriptions on File Prior to Visit Medication Status Sig Dispense Refill ??? carvedilol (COREG) 6.25 mg tablet Active Take 1 tablet by mouth 2 times daily (with meals). 60 tablet 3 ??? simvastatin (ZOCOR) 20 mg tablet Active Take 20 mg by mouth daily. ??? fluticasone-salmeterol (ADVAIR) 500-50 mcg/dose diskus inhaler Active Inhale 1 puff into the lungs 2 times daily. ??? amitriptyline (ELAVIL) 10 mg tablet Active Take 10 mg by mouth nightly. ??? risperidone (RISPERDAL) 1 mg tablet Active Take 1 mg by mouth 2 times daily. ??? citalopram (CELEXA) 10 mg tablet Active Take 20 mg by mouth daily. ??? tiotropium (SPIRIVA) 18 mcg inhalation capsule Active Inhale 18 mcg into the lungs daily. ??? Levalbuterol Tartrate (XOPENEX HFA) 45 mcg/Actuation inhaler Active Inhale 2 puffs into the lungs every 4 hours as needed. 2 puffs Q4-6 Hours ??? esomeprazole (NEXIUM) 40 mg capsule Active Take 40 mg by mouth daily. ??? gabapentin (NEURONTIN) 300 mg capsule Active Take 300 mg by mouth 2 times daily. Allergies as of 12/21/2012 - Review Complete 12/21/2012 Allergen Reaction Noted ??? Amoxicillin-pot clavulanate Nausea Only ??? Bacitracin Nausea Only ??? Gramicidin d Nausea Only ??? Neomycin sulfate Nausea Only ??? Polymyxin b Nausea Only ??? Aspirin Nausea And Vomiting ??? Lactose Other (See Comments) 07/30/2010 PE: General: Well developed, well nourished 52 y.o. female in [facility]. Skin: good turgor, nonicteric. Neck: No masses, thyromegaly or adenopathy. HEENT: LUISITO, EOM's full, sclera nonicteric, edentulous otherwise unremarkable. Back: No tenderness to AP or lateral compression. Lungs: Clear BS bilaterally without wheezes, rales or rhonchi. Card: Heart sounds normal, no murmurs, gallops, rubs or S3. Extremities: warm, no edema. Neuro: Awake, alert and oriented x 3., [place] negative bilaterally. Imp: Primary hyperparathyroidism. Plan: We had a long discussion regarding the approach for management of this condition. She has multiple co-morbidities, and I'm not certain she has criteria for surgical intervention at this time. Will discuss with Dr. Rhodes. Send copy to Dr. JENNIE JACKSON MD and Vincenzo Rhodes MD. documented in this encounter Plan of Treatment Upcoming Encounters Date Type Department Care Team (Late st Contact Info) Description 02/27/2024 2:45 PM EST TH Visit (TeleHealth) [place] [address] Lashae Lorenzo MD [facility] [place] [address] documented as of this encounter Visit Diagnoses Diagnosis Hyperparathyroidism- Primary Hyperparathyroidism, unspecified documented in this encounter Care Teams C D Stripper Relationship Specialty Start Date End Date Jennie Jackson MD [address] [place] [address] [facility] [address] [place] [address] PCP - General 03/06/10 08/27/16 documented as of this encounter
--- OUTSIDE RECORDS SUMMARY | 2024-01-23 00:35 | XMS_ITS | Encounter Summary ---
[place] [address] Care Team Providers Care Feeder Switchboard Operator Name Role Phone Jennie Resendiz MD Primary Care Provider [phone] Encounter Details Date Type Department Care Team (Late st Contact Info) Description 03/11/2012 Telephone [place] [address] Cristina Dow, RN Social History Tobacco Use Types Packs/Day [...] encounter Miscellaneous Notes * Telephone Encounter - Cristina Dow RN - 03/11/2012 4:20 PM EST Patient calls stating that for the last 3 1/2 hours she has had excruciating abdominal pain whichis not resolving. She has nausea and has been vomiting and having diarrhea. No bleeding, but she ishaving chills. She will go to the ED at [facility] and call us tomorrow with an update documented in this encounter Plan of Treatment Upcoming Encounters Date Type Department Care Team (Late st Contact Info) Description 02/27/2024 2:45 PM EST TH Visit (TeleHealth) [place] [address] Lashae Lorenzo MD [facility] [place] [place] [address] documented as of this encounter Visit Diagnoses Not on filedocumented in this encounter Care Teams Feeder Switchboard Operator Relationship Specialty Start Date End Date Jennie Resendiz MD [facility] [address] [facility] [address] [place] [address] PCP - General 03/06/10 08/27/16 documented as of this encounter
--- OUTSIDE RECORDS SUMMARY | 2024-01-23 00:35 | XMS_ITS | Encounter Summary ---
Author Organization [facility] [place] [address] Care Team Providers Care Air Traffic Systems Technician Name Role Phone Jennie Resendiz MD Primary Care Provider [phone] Encounter Details Date Type Department Care Team (Latest Contact Info) Description 01/27/2014 9:20 AM EDT - 01/27/2014 11:30 AM EDT Hospital Encounter [place] [phone] Fiona Feliz MD [facility] [place] [address] Natividad Stevens MD [facility] [place] [address] Discharge Disposition: Home Social History Tobacco Use [...] be sent through Care Everywhere. * POLYPS (NEPALI) documented in this encounter Medications at Time [...] Stevens MD - 01/27/2014 11:19 AM EDT [facility] [place] Patient Name: Kallie Smart : [id number] MR#: [id number] Case Date: 01/27/2014 Surgeon: Surgeon(s) and Role: [...] EST TH Visit (TeleHealth) [place] [address] Lashae Lorenzo MD [facility] [place] [place] [address] documented as of this encounter Procedures Procedure [...] AM EDT) C Diff Interp Negative Negative [facility] Stool specimen (specimen) 01/27/2014 11:35 AM EDT 01/27/2014 1:38 PM EDT Narrative Resulting Agency Comment Spec In Lab Natividad Stevens MD MICROBIOLOGY - GENER AL ORDERABLES Performing Organization Address City/State/[facility] Co de Phone Number [facility] * Surgical Pathology Report (01/27/2014 11:21 AM EDT) Final Diagnosis ? [facility] ? Provider: ?? Natividad STEVENS ?Pt. Name: ?? PRIEST KALLIE Wilfredo ? Acc #: ?[id number] ?Pt. ? Col Date: ?? 01/27/2014 ?/Sex: [...] Description--- ? Whole slide scan: ? S [id number] B1-1 ? S [id number] B2-1 ? S [id number] C1-1 ? ---Gross Description--- ? A - Labeled/Fixative : Polyp-sigmoid 30 cm, formalin. ? Quantity/Size: Two, 0.3 and 0.4 cm. ? Tissue Description: Soft, florian-pink tissue. ? Sections/Process ing: (T1) ? B - Labeled/Fixative : Mucosal biopsies, right colon, formalin. ? Quantity/Size: Multiple, 0.2-0.4 cm. ? [facility] ? Provider: ?? Natividad STEVENS ?Pt. Name: ?? KALLIE SMART ? Acc #: ?[id number] ?Pt. ? Col Date: ?? 01/27/2014 ?/Sex: [...] Diagnosis: ? Same 01/28/2014 4:33 PM EDT [facility] GI Biopsy 01/27/2014 11:2 1 AM EDT 01/27/2014 11:21 AM EDT GI Biopsy 01/27/2014 11:2 1 AM EDT 01/27/2014 11:21 AM EDT GI Biopsy 01/27/2014 11:2 1 AM EDT 01/27/2014 11:21 AM EDT L Sulaiman Stevens MD PATHOLOGY/CYTOLOGY O SELWYN Performing Organization Address City/[facility] Co de Phone Number LILLIE HUIZAR [facility] [place] [address] * Specimen to Pathology (surgical or derm) (01/27/2014 11:21 AM EDT) AP Specimen 01/27/2014 11:2 1 AM EDT 01/27/2014 11:21 AM EDT Narrative LILLIE MIJARESIUM - 01/27/2014 11:21 AM EDT Specimen requisition ordered. ??Separate Pathology report to follow L Sulaiman Stevens MD PATHOLOGY/CYTOLOGY O SELWYN Performing Organization Address [facility] Co de Phone Number LILLIE HUIZAR * Specimen to Pathology (surgical or derm) (01/27/2014 11:21 AM EDT) AP Specimen 01/27/2014 11:2 1 AM EDT 01/27/2014 11:21 AM EDT Narrative LILLIE MIJARESIUM - 01/27/2014 11:21 AM EDT Specimen requisition ordered. ??Separate Pathology report to follow L Sulaiman Stevens MD PATHOLOGY/CYTOLOGY O SELWYN Performing Organization Address [facility] Co de Phone Number LILLIE HUIZAR * Specimen to Pathology (surgical or derm) (01/27/2014 11:21 AM EDT) AP Specimen 01/27/2014 11:2 1 AM EDT 01/27/2014 11:21 AM EDT Narrative LILLIE MIJARESIUM - 01/27/2014 11:21 AM EDT Specimen requisition ordered. ??Separate Pathology report to follow L Sulaiman Stevens MD PATHOLOGY/CYTOLOGY O SELWYN Performing Organization Address [facility] Co de Phone Number LILLIE HUIZAR * COLONOSCOPY (01/27/2014 8:59 AM EDT) COLONOSCOPY [facility] Endoscopy ___ Patient Name: Kallie Smart ? Procedure Date: 01/27/2014 8:59 AM ? Date of : 1960 ? Age: 53 ? Order #: [id number] ? ___ Procedure: ? Colonoscopy Indications: ? Screening for colorectal malignant ? neoplasm; patient with coincidental ? acute diarrhea following recent ? antibiotics for pneumonia. Providers: ? L. Hilario Stevens, MD, Kaila Sanchez, ? Mala LONDONO MD: ?Jennie Resendiz MD Medicines: ? Midazolam [...] ? please call our office at ? [phone]. ? _ L. Sulaiman Stevens MD 01/27/2014 11:30 AM Number of Addenda: 0 Note Initiated On: 01/27/2014 8:59 AM PROVATION 01/27/2014 8:59 AM EDT Jennie Resendiz MD GENERAL SURGICAL ORD ERABLES Performing Organization Address City/State/[facility] Co de Phone Number PROVATION documented in this encounter Visit Diagnoses [...] uncomfortable) documented in this encounter Care Teams Air Traffic Systems Technician Relationship Specialty Start Date End Date Jennie Resendiz MD [address] [facility] [address] [place] [address] PCP - General 03/06/10 08/27/16 documented as of this encounter
--- OUTSIDE RECORDS SUMMARY | 2024-01-23 00:35 | XMS_ITS | Encounter Summary ---
[facility] Organization [facility] [place] [address] Care Team Providers Care Milling Machine Operator Name Role Phone Jennie Resendiz MD Primary Care Provider [phone] Reason for Visit * Reason Comments Advice Only hyperparathyroidism Encounter Details Date Type Department Care Team (Latest Contact Info) Description 11/17/2012 10:00 AM EDT Office [place] [phone] Samir Payne MD [facility] [place] [address] Hyperparathyroidism (Primary Dx); Hyperparathyroidism; H/O hysterectomy for benign disease Discharge Disposition: Home Social History Tobacco Use [...] Sign Reading Time Taken Comments Blood Pressure 126/79 11/17/2012 9:53 AM EDT Pulse 72 11/17/2012 9:53 AM EDT Temperature - - Respiratory Rate - - Oxygen Saturation - - Inhaled Oxygen Concentration - - Weight 108 kg (238 lb) 11/17/2012 9:53 AM EDT Height - - Body Mass Index 39.61 10/20/2012 9:25 AM EDT documented in this encounter Progress Notes * Samir Payne MD - 11/17/2012 11:19 AM EDT I have seen the patient and reviewed Dr. Rhodes's history and I agree with the details as written. The assessment and plan were formulated in discussion with me and I agree with them as documented. Pt is a 52 yo WF with recently diagnosed 1ry hyperPTH (PTH 165 in 05/27 with Ca 10.5->11.0 09/18/12) with h/o PUD but could be related to her ETOH gastritis and no history of kidney stones or DEXAscan before (s/p WHIT age 32 for DUB). Likely that she is now in postmenopausal state which renders more manifestation of hyperPTH in the presence of low estrogen. We also performed US of the thyroid at visit today which showed only tiny colloid cyst in the Rt lobe without solid thyroid nodule or PTH adenoma seen. There is a questionable hypo-echoic areaof 1.0x0.6 cm seen in the Left upper pole outside thyroid capsule and beneath the strap muscle but does notshow as a distinct nodule on the sagital view. Sestamibi scan is rec'd and also DEXA scan for her bone density. We will follow biochemical tests today and will let her know all test results soon. If there is evidence of bone loss, worsening hypercalcemia >1.0 of the upper limit, and identifiable PTH adenomaon Sestamibi scan, we'd rec surgical removal with Dr. Peggy mcneil and pt agrees with plans. Thanks for the consult. SAMIR PAYNE MD * Vincenzo Rhodes - 11/17/2012 10:04 AM EDT Ms Darling is a 52 yr old female who is referred for evaluation of hypercalcemia. She was unsure of the reason of her visit today. In general doing ok today. States that she has chronic liver problem but is doing ok. She does not have any history of kidney stones. She has a history of fracture in 1989 when she fell hard on bathroom floor. She takes one vit d pill unsure of the dosing. OTC calcium/vit. D- One pill a day High milk intake - Eats cheese once in a while Any masses/Lumps - No Cancer history - No Weight loss- No Muscle weakness - No Fatigue - average Heat intolerance - No Palpitations- sometimes High Blood Pressure- No Fractures- No Diarrhea- No Abdominal pain- No Peptic ulcer disease- Yes takes nexium - was found long time ago. Not sure of the reason for alcohol Polyuria/polydipsia- yes Kidney stones- No Depression- No Psychosis- No PMH 1. Cirrhosis, HARDEN/MONA A. Labs - see [...] 11. Depression 12. Right Sided LE pain PSH S/P Hysterectomy 1979 S/P left thumb surgery 1966 S/P left knee arthroscopy 2001 S/P cholecystectomy 2009 FH: DM - mother Sister- DM Aunt - breast cancer - Social: Smoke - 1 pack a day Alcohol - last drink - a while - before that - onlyweekends No illicit drugs Not Kids- three girls in good health Disabled ROS Constitutional: No recent weight loss, fevers, chills, night sweats. HEENT: No recent visual changes, hearing changes, headache. Cardiovascular: No chest pain, palpitations, orthopnea. Pulmonary: No shortness of breath. No cough, no wheezing. GI: No abdominal pain, vomiting, significant change in bowel habits. : No dysuria, urinary retention, urinary incontinence. Musculoskeletal: No joint pain. Endocrine: No heat/cold intolerance, polyuria. Skin: No rashes. Neuro: See HPI. PE: Blood pressure 126/79, pulse 72, weight 107.956 kg (238 lb). General: well nourished, in no distress Head/Eyes: anicteric, PERRL, No conjunctival injection, no proptosis, no lid lag ENT: without Lesions/exudates Neck: Supple, full ROM, no LAD or masses Thyroid: normal, with no nodules, no bruit CV: RRR, no murmur/gallops/rubs Pulm: Non-labored, CTAB Abd: ND, positive bowel sounds, soft, NT, no masses Peripheral: No edema, palpable DP pulses Neuro: CN intact including visual khan, sensation intact to light touch, reflexes in bl knees normal. Skin: no rashes, not dry. Labs: 05/26/12 PTH 159 A/p: 52 yr old female who presents with hypercalcemia and high pth. She most likely has primary hyperparathyroidism. Since there is no family history of calcium problems or kidney stones we dont suspect Familial hypocalciuric hypercalcemia. US thyroid/parathyroid done in office could not locate any parathyroid adenoma. Currently she is asymptomatic and her serum calcium is <1 mg/dl below the upper limit of normal, no history of fractures, normal kidney function. So she does not have any criteria for surgery. But we still need DEXA scan to absolutely make sure she is not a surgical candidate. Sowill order DEXA. Also will order sestamibi scan to locate the adenoma. P: DEXA BMP PTH Sestamibi scan Continue taking the current vit d Start 500 mg calcium daily Discussed with Dr Gina Rhodes Endocrine Fellow documented in this encounter Plan of Treatment Upcoming Encounters Date Type Department Care Team (Late st Contact Info) Description 02/27/2024 2:45 PM EST TH Visit (TeleHealth) [place] [phone] Lashae Lorenzo MD [facility] [address] Pending Results Name Type Priority Associated Diagnoses Date /Time NM parathyroid imaging delay-NMPAR1 Imaging Routine 12/01/2012 11:24 AM EDT documented as of this encounter Procedures Procedure Name Priority Date/Time Associated Diagnosis Comments PTH Routine 11/17/2012 11:03 AM EDT Hyperparathyroidism VITAMIN D, 25-HYDROXY Routine 11/17/2012 11:03 AM EDT Hyperparathyroidism PHOSPHORUS Routine 11/17/2012 11:03 AM EDT FOLLICLE STIMULATING HORMONE Routine 11/17/2012 11:03 AM EDT HEPATIC FUNCTION PANEL Routine 11/17/2012 11:03 AM EDT BASIC METABOLIC PANEL Routine 11/17/2012 11:03 AM EDT Hyperparathyroidism documented in this encounter Results * Follicle Stimulating Hormone (11/17/2012 11:03 AM EDT) Pathologist [facility] Follicle Stimulating Hormone 54.1 mlU/ML [facility] Comment: Reference Ranges: Females: Follicular: ? 3.5-12.5 mIU/mL Ovulation: ?4.7-21.5 mIU/mL Luteal: ? 1.7-7.7 mIU/mL Postmenopausal: 25.8-134.8 mIU/mL Blood specimen (specimen) 11/17/2012 11:03 AM EDT 11/17/2012 11:27 AM EDT Narrative Resulting Agency Comment Spec In Lab Samir Payne MD CHEMISTRY ORDERAB LES [facility] * (ABNORMAL) Hepatic Function Panel (11/17/2012 11:03 AM EDT) Pathologist [facility] Protein, Total 7.5 6.4 - 8.3 gm/dL [facility] Albumin 4.9 3.2 - 5.2 gm/dL [facility] Aspartate Aminotransferase 47(H) 0 - 30 unit/L [facility] Alanine Aminotransferase 42(H) 0 - 30 unit/L [facility] Alkaline Phosphatase 134(H) 40 - 104 unit/L [facility] Bilirubin, Total 0.5 0.2 - 1.3 mg/dL [facility] Bilirubin, Direct 0.1 0.0 - 0.3 mg/dL [facility] Blood specimen (specimen) 11/17/2012 11:03 AM EDT 11/17/2012 11:21 AM EDT Narrative Resulting Agency Comment Spec In Lab Samir Payne MD CHEMISTRY ORDERAB LES [facility] * Phosphorus (11/17/2012 11:03 AM EDT) Phosphorus 3.0 2.5 - 4.5 mg/dL [facility] Blood specimen (specimen) 11/17/2012 11:03 AM EDT 11/17/2012 11:21 AM EDT Narrative Resulting Agency Comment Spec In Lab Samir Payne MD [facility]AB [facility]ES [facility] * VIT D Total Evaluation (11/17/2012 11:03 AM EDT) Vitamin D Total 25 OH 42 30 - 100 ng/mL [facility] Comment: Deficient <10 ng/mL Insufficient 10 to 29 ng/mL Sufficient 30 to 100 ng/mL Potential Intoxication >100 ng/mL According to the [place] National Osteoporosis Foundation, Vitamin D concentrations >30 ng/mL are sufficient to protect bone health. ??The National Kidney Foundation has similarly stated that patients with Vitamin D concentrations <30ng/mL should be considered to be insufficient or deficient. http://www.kidney.org/professionals/KDOQI/guidelines_bone/Guide7.htm http://www.nof.org/professionals/clinical-guidelines The [employer]S iSYS Vitamin D Immunoassay detects both 25-OH Vitamin D2 and 25-OH Vitamin D3, but only a total Vitamin D concentration is reported. Blood specimen (specimen) 11/17/2012 11:03 AM EDT 11/17/2012 11:07 AM EDT Narrative Resulting Agency Comment Spec In Lab Samir Payne MD CHEMISTRY ORDERAB LES [facility] * (ABNORMAL) Basic Metabolic Panel (non-fasting) (11/17/2012 11:03 AM EDT) Glucose 108 60 - 199 mg/dL [facility] Comment:Diabetes: >=200 mg/d L plus symptoms Blood Urea Nitrogen 11 8 - 18 mg/dL [facility] Creatinine 0.87 0.70 - 1.20 mg/dL [facility] Comment: Please note that the pediatric reference intervals supplied above were not validated at [facility]. Results from pediatric patients should be interpreted in conjunction to the patient's age, height and muscle mass. Sodium 136 135 - 145 mmol/L [facility] Potassium 4.1 3.5 - 5.0 mmol/L [facility] Comment: Please note: ??Patients with WBC >100,000 may have falsely elevated Potassium levels. ??For accurate Potassium quantification in these patients send serum separator tube (gold top) for subsequent determinations. ??Contact the Clinical Chemistry Laboratory if there are any questions. Chloride 98 98 - 107 mmol/L [facility] Carbon Dioxide 27 22 - 31 mmol/L [facility] Anion Gap 11 5 - 15 mmol/L [facility] Calcium 11.3(H) 8.5 - 10.5 mg/dL [facility] Est Glomerular Filtration Rate [...] internet browser. http://www.nkdep.nih.gov/lab-evaluation.shtml http://www.kidney.org/professionals/ Blood specimen (specimen) 11/17/2012 11:03 AM EDT 11/17/2012 11:07 AM EDT Narrative Resulting Agency Comment Spec In Lab Samir Payne MD CHEMISTRY ORDERAB LES [employer] * (ABNORMAL) PTH (11/17/2012 11:03 AM EDT) Parathyroid Hormone 130(H) 15 - 65 pg/mL [facility] Blood specimen (specimen) 11/17/2012 11:03 AM EDT 11/17/2012 11:07 AM EDT Narrative Resulting Agency Comment Spec In Lab Samir Payne MD CHEMISTRY ORDERAB LES Performing Organization Address City/[facility] [address]/ZIP Co de Phone Number [employer] documented in this encounter Visit Diagnoses Diagnosis Hyperparathyroidism- Primary Hyperparathyroidism, unspecified H/O hysterectomy for benign disease Acquired absence of both cervix and uterus documented in this encounter Care Teams Milling Machine Operator Relationship Specialty Start Date End Date Jennie Resendiz MD [address] [place] [address] PCP - General 03/06/10 08/27/16 documented as of this encounter
--- OUTSIDE RECORDS SUMMARY | 2024-01-23 00:35 | XMS_ITS | Encounter Summary ---
[place] [address] Care Team Providers Care Avionics Systems Engineer Name Role Phone Jennie Resendiz MD Primary Care Provider [phone] Encounter Details Date Type Department Care Team (Late st Contact Info) Description 09/18/2012 7:29 AM EDT - 09/18/2012 11:59 PM EDT Hospital [place] [phone] Social History Tobacco Use Types Packs/Day Years [...] EST TH Visit (TeleHealth) [place] [address] Lashae Lorenzo MD [facility] [place] [address] documented as of this encounter Procedures Procedure Name Priority Date/Time Associated Diagnosis Comments US ABDOMEN COMPLETE WITH VASCULAR Routine 09/18/2012 8:45 AM EDT documented in this encounter Results * US abdomen complete with vascular (09/18/2012 8:45 AM EDT) Anatomical Region Laterality Modality Abdomen Ultrasound 09/18/2012 8:45 AM EDT Narrative 09/18/2012 8:59 AM EDT ?Abdominal Duplex ? (Signed Final 09/18/2012 08:58 am) Patient Info ID: ?[id number] ?: ??[birth year] (52 yrs) Name: ?KALLIE SMART ? Visit Date: 09/18/2012 08:40 am Performed By Performed By: ?Renu Velazquez RDMS Attending: ? Gaurav STOCKTON, Matthew Tse Referred By: ? SOFIA DAVIS MEDICAL TRANSPORT SPECIALIST Service(s) Provided UABDCVASC - Abdominal Complete Survey with ?[id number], [id number] Vascular - [id number], [id number] Indications cirrhosis, HCC surveillance ----- Liver ----- Right Lobe Length: ?? 19.5 ?? cm Echogenicity/Echotexture: ?? Increased in echogenicity diffusely Portal Veins: ?Patent Hepatic Veins: ?? Patent Gallbladder Comment: ?Surgically removed Biliary Tract Intrahepatic Ducts: ?? Normal Extrahepatic Ducts: ?? Normal Common Duct: ?Visualized -------- Pancreas -------- Head: ? Limited views Tail: ? Poorly visualized due to overlying bowel Body: ? Limited views ------ Spleen ------ Size (cm) ?L: ??18 ?AP: ??6.1 ? TV: ??6.4 Vol (ml): ?367.9 Comment: ?Moderate splenomegaly Right Kidney Size (cm) ?L: ??12.4 Cortical Thickness: ? Normal Cortical Echogenicity: ??Normal Hydronephrosis: ? No sonographic evidence Comment: ?Non-obstruction renal calculi seen mid pole ? measuring 5 mm. Left Kidney Size (cm) ?L: ??13.1 Cortical Thickness: ? Normal Cortical Echogenicity: ??Normal Hydronephrosis: ? No sonographic evidence ----- Aorta ----- Comment: ?Normal in caliber --- IVC --- Proximal portion, normal in caliber Hepatic-Portal Duplex Collaterals: ??Visualized Main Portal Vein ? PSV: ?? 61.1 ? cm/s Waveform: ? Patent Hepatic Artery ? PSV: ?93.9 ?cm/s ? EDV: ?? 37.4 ? cm/s Hepatic Artery ? RI: ? 0.6 Right Hepatic Vein Waveform: ?Patent Middle Hepatic Vein Waveform: ? Patent Left Hepatic Vein Waveform: ? Patent Impression Ultrasound - Abdomen Complete - [...] Nolasco MD Electronically Signed Final Report ?? 09/18/2012 08:58 am Procedure Note Matthew Nolasco MD - 09/18/2012 Abdominal Duplex (Signed Final 09/18/2012 08:58 am) Patient Info ID: [id number] : 60 (52 yrs) Name: KALLIE SMART Visit Date: 09/18/2012 08:40 am Performed By Performed By: Renu Velazquez RDMS Attending: Matthew Nolasco MD. Referred By: SOFIA DAVIS APRN Service(s) Provided UABDCVASC - Abdominal Complete Survey with [id number], 18797 Vascular - [id number], [id number] Indications cirrhosis, HCC surveillance ----- Liver ----- Right Lobe Length: 19.5 cm Echogenicity/Echotexture: Increased in echogenicity diffusely Portal Veins: Patent Hepatic Veins: Patent Gallbladder Comment: Surgically removed Biliary Tract Intrahepatic Ducts: Normal Extrahepatic Ducts: Normal Common Duct: Visualized -------- Pancreas -------- Head: Limited views Tail: Poorly visualized due to overlying bowel Body: Limited views ------ Spleen ------ Size (cm) L: 18 AP: 6.1 TV: 6.4 Vol (ml): 367.9 Comment: Moderate splenomegaly Right Kidney Size (cm) L: 12.4 Cortical Thickness: Normal Cortical Echogenicity: Normal Hydronephrosis: No sonographic evidence Comment: Non-obstruction renal calculi seen mid pole measuring 5 mm. Left Kidney Size (cm) L: 13.1 Cortical Thickness: Normal Cortical Echogenicity: Normal Hydronephrosis: No sonographic evidence ----- Aorta ----- Comment: Normal in caliber --- IVC --- Proximal portion, normal in caliber Hepatic-Portal Duplex Collaterals: Visualized Main Portal Vein PSV: 61.1 cm/s Waveform: Patent Hepatic Artery PSV: 93.9 cm/s EDV: 37.4 cm/s Hepatic Artery RI: 0.6 Right Hepatic Vein Waveform: Patent Middle Hepatic Vein Waveform: Patent Left Hepatic Vein Waveform: Patent Impression Ultrasound - Abdomen Complete [...] Matthew Nolasco MD Electronically Signed Final Report 09/18/2012 08:58 am Sofia Davis APRN IMG US GEN ORDERA BLES documented in this encounter Visit Diagnoses Not on filedocumented in this encounter Care Teams Avionics Systems Engineer Relationship Specialty Start Date End Date Jennie Resendiz MD [address] [facility] [address] [place] [address] PCP - General 03/06/10 08/27/16 documented as of this encounter
--- OUTSIDE RECORDS SUMMARY | 2024-01-23 00:35 | XMS_ITS | Encounter Summary ---
[place] [address] Care Team Providers Care Cosmetics Presser Name Role Phone Jennie Resendiz MD Primary Care Provider [phone] Encounter Details Date Type Department Care Team (Latest Contact Info) Description 10/20/2012 10:29 AM EDT - 10/20/2012 11:59 PM EDT Hospital Encounter Non-[place] [address] CLINIC, DR GALO Discharge Disposition: Home Social History Tobacco Use [...] EST TH Visit (TeleHealth) [place] [address] Lashae Lorenzo MD [facility] [place] [address] documented as of this encounter Visit Diagnoses Not on filedocumented in this encounter Care Teams Cosmetics Presser Relationship Specialty Start Date End Date Jennie Resendiz MD [address] [place] [address] PCP - General 03/06/10 08/27/16 documented as of this encounter
--- OUTSIDE RECORDS SUMMARY | 2024-01-23 00:35 | XMS_ITS | Encounter Summary ---
[place] [address] Care Team Providers Care Escrow Officer Name Role Phone Jennie Resendiz MD Primary Care Provider [phone] Encounter Details Date Type Department Care Team (Late st Contact Info) Description 02/17/2012 1:00 PM EST - 02/17/2012 2:00 PM EST [place] [address] Clark Cardenas MD [address] [place] [address] [place] [address] COLONOSCOPY, DIAGNOSTIC (WRVU 3.26) Social History Tobacco [...] Reading Time Taken Comments Blood Pressure 117/66 02/17/2012 1:18 PM EST Pulse 74 02/17/2012 1:18 PM EST Temperature 36.3 ??C (97.3 ??F) 02/17/2012 11:[address] Respiratory Rate 17 02/17/2012 1:18 PM EST Oxygen Saturation 95% 02/17/2012 1:18 PM EST Inhaled Oxygen Concentration - - Weight - - Height 165.1 cm (5' 5) 02/17/2012 11:27 AM EST Body Mass Index - - documented in this encounter Discharge Instructions * Discharge Instructions* Asiya Espitia RN - 02/17/2012 1:19 PM EST Please call [phone], before 5pm with problems, questions or concerns, after 5pm call the Hospital at [phone] and ask to speak to the Retail Manager In Training stator connector and the dump truck operator will contactthat person for you. Discharge instructions reviewed with patient who expresses understanding. You may have received medications before and/or during your procedure which effects your judgement and reaction time. Do not drive, operate machinery, drink alcoholic beverages or make important decisions for 24 hours. Be careful on stairs as you may be unsteady on your feet. You may eat a regular diet as tolerated. Do not smoke if you are alone. IV site: Slight redness or tenderness is normal, you can use a warm compress if you would like. If tenderness and/or redness increase or if foul drainage occurs, please contact your Doctor. * Attachments The following attachments cannot be sent through Care Everywhere. * COLONOSCOPY: WHAT TO EXPECT AT HOME (BAHRAINI) documented in this encounter Medications at Time [...] as of this encounter H&P Notes * Clark Cardenas MD - 02/17/2012 12:08 PM EST Gastroenterology and Hepatology Pre-procedure History and Physical Note Procedure: Colonoscopy Indication and Brief History: Kallie Darling is a 51 y.o. female with a history of constipationand steatohepatitis who is here for screening colonoscopy. Allergies and Meds reviewed. Patient Active Problem List Diagnoses Code ??? Right foot pain 729.5CL ??? Neck pain 723.1B ??? Left elbow pain 719.42N ??? Asthma 493.90AE ??? Chronic low back pain 724.2AG ??? Restless leg syndrome 333.94J ??? Acid reflux 530.81AP ??? Learning disability 315.2F ??? Low back pain 724.2A PE: Filed Vitals: 02/17/12 1127 BP: 112/76 Pulse: 76 Temp: 36.3 ??C (97.3 ??F) Resp: 18 AAOx3, NAD Anicteric sclera Heart regular Lungs clear Abd soft, mild RUQ ttp and hepatomegaly, nd Ext warm, no edema A/P: Proceed with planned endoscopic procedure for indication noted above. Risks and benefits of the procedure explained to the patient and all questions answered. Consent signed. documented in this encounter Miscellaneous Notes * Miscellaneous - Provider, Scanning - 02/17/2012 9:42 PM EST * Miscellaneous - Provider, Scanning - 02/17/2012 10:27 AM EST documented in this encounter Plan of Treatment Upcoming Encounters Date Type Department Care Team (Late st Contact Info) Description 02/27/2024 2:45 PM EST TH Visit (TeleHealth) [place] [address] Lashae Lorenzo MD [facility] [place] [address] documented as of this encounter Procedures Procedure Name Priority Date/Time Associated Diagnosis Comments COLONOSCOPY, DIAGNOSTIC (WRVU 3.26) 02/17/2012 12:33 PM EST Elevated liver function tests COLONOSCOPY Routine 02/17/2012 12:04 PM EST documented in this encounter Results * COLONOSCOPY (02/17/2012 12:04 PM EST) COLONOSCOPY [facility] Endoscopy Patient Name: Kallie Darling ? Procedure Date: 02/17/2012 12:04 PM ? N: [id number] ? Date of : 1960 ? Age: 51 ? Order #: [id number] ? Procedure: ? Colonoscopy Indications: ? Screening for colorectal malignant ? neoplasm, Constipation Providers: ? Clark Cardenas MD, Abdulaziz Goodrich ? , RN, Bruna Connelly, Package Checker Referring MD: ?Jennie Resendiz MD Medicines: ? Midazolam 3 mg IV, Fentanyl 125 ? micrograms IV Complications: ? No immediate complications. Procedure: ? Pre-Anesthesia Assessment: ? - Prior to the procedure, a History ? and Physical was performed, and ? patient medications, allergies and ? sensitivities have been reviewed. The ? patient's tolerance of previous ? anesthesia has been reviewed. ? - The risks and benefits of the ? procedure and the sedation options ? and risks were discussed with the ? patient. All questions were answered ? and informed consent was obtained. ? - ASA Grade Assessment: III - A ? patient with severe systemic disease. ? - After reviewing the risks and ? benefits, the patient was deemed in ? satisfactory condition to undergo the ? procedure. ? The procedure, indications, [...] digital rectal exam was performed. ? The New Lease 2012 was inserted in ? the anus with the intention of ? advancing to the cecum. The scope was ? advanced to the ascending colon ? before the procedure was aborted. ? Medications were given. The ? colonoscopy was performed without ? difficulty. The patient tolerated the ? procedure well. The quality of the ? bowel preparation was poor. ? Findings: ? The perianal and digital rectal examinations were ? normal. Internal hemorrhoids were found during ? retroflexion and were medium-sized. A large amount of ? liquid and solid stool was found in the entire colon, ? particularly in the right colon, precluding ? visualization. The scope was advanced to the ? ascending colon to what appeared to be the cecum but ? given the solid contents, this was unable to ? adequately be visualized and the typical landmarks ? were not seen. Lavage of the area was performed using ? copious amounts of water with suction, resulting in ? incomplete clearance with continued limited ? visualization primarily in the right colon. There is ? no endoscopic evidence of polyps in the entire colon ? although the exam was very limited secondary to the ? poor preparation. ? Impression: ?- Preparation of the colon was poor. ? - Internal hemorrhoids. ? - No polyps but limited exam given ? colon prep. Recommendation: ?- Discharge patient to home. ? - Repeat colonoscopy in 6 months to ? one year for screening purposes. ? - Will need 2 day preparation. ? ____ Clark Cardenas MD 02/17/2012 1:19 PM Number of Addenda: 0 Note Initiated On: 02/17/2012 12:04 PM PROVATION 02/17/2012 12:0 4 PM EST Jennie Resendiz MD GENERAL SURGICAL ORD ERABLES PROVATION documented in this encounter Visit Diagnoses Diagnosis Elevated liver function tests Other abnormal blood chemistry documented in this encounter Administered Medications Inactive Administered Medications - up to 3 most recent administrations Medication Order MAR Action Action Date Dose Rate Site fentaNYL 50mcg/mL injection ONCE PRN, Starting on Fri02/17/12 at 1236, Until Fri02/17/12 at 1806, Pain, Intra-Operative (Intra-Procedure), Routine Given 02/17/2012 12:51 PM EST 25 mcg Given 02/17/2012 12:45 PM EST 25 mcg Given 02/17/2012 12:36 PM EST 75 mcg midazolam (VERSED) injection ONCE PRN, Starting on Fri02/17/12 at 1236, Until Fri02/17/12 at 1806, Sleep, Intra-Operative (Intra-Procedure), Routine Given 02/17/2012 12:[address] 0.5 mg Given 02/17/2012 12:45 PM EST 0.5 mg Given 02/17/2012 12:36 PM EST 2 mg sodium chloride 0.9% infusion 50 mL/hr, Intravenous, CONTINUOUS, Starting on Fri02/17/12 at 1145, Until Fri02/17/12 at 1806, Endoscopy (Day of Procedure) New Bag 02/17/2012 11:45 AM EST 50 mL/hr 50 mL/hr documented in this encounter Active and Recently Administered Medications Due to Daylight Saving Time, this section may contain times in both EDT and EST. Continuous Medication Order 02/15/2012 02/16/2012 02/17/2012 sodium chloride 0.9% infusion (CANCELED) 50 mL/hr, Intravenous, CONTINUOUS, Starting on Fri02/17/12 at 1145, Until Fri02/17/12 at 1806, Endoscopy (Day of Procedure) 1145 (New Bag - Prov ider: Ayah Hampton RN) PRN Medication Order 02/15/2012 02/16/2012 02/17/2012 fentaNYL 50mcg/mL injection (CANCELED) ONCE PRN, Starting on Fri02/17/12 at 1236, Until Fri02/17/12 at 1806, Pain, Intra-Operative (Intra-Procedure), Routine 1236 (Given - Provid er: Abdulaziz Phillips RN)1245 (Given - Provider: Abdulaziz Phillips RN)1251 (Given - Provider: Abdulaziz Phillips RN) midazolam (VERSED) injection (CANCELED) ONCE PRN, Starting on Fri02/17/12 at 1236, Until Fri02/17/12 at 1806, Sleep, Intra-Operative (Intra-Procedure), Routine 1236 (Given - Provid er: Abdulaziz Phillips RN)1245 (Given - Provider: Abdulaziz Phillips RN)1251 (Given - Provider: Abdulaziz Phillips RN) documented in this encounter Care Teams Escrow Officer Relationship Specialty Start Date End Date Jennie Resendiz MD [address] [facility] [address] [place] [address] PCP - General 03/06/10 08/27/16 documented as of this encounter
--- OUTSIDE RECORDS SUMMARY | 2024-01-23 00:35 | XMS_ITS | Encounter Summary ---
[place] [address] Care Team Providers Care Dry Cell And Battery Assembler Name Role Phone Jennie Resendiz MD Primary Care Provider [phone] Encounter Details Date Type Department Care Team (Latest Contact Info) Description 05/06/2013 9:08 AM EST - 05/06/2013 11:59 PM [facility] Hospital Encounter [place] [phone] Cirrhosis of liver Social History Tobacco Use [...] Sig Dispensed Refills Start Date End Date zinc sulfate (ZINCATE) 220 (50) mg capsule Take 1 capsule by mouth 2 times daily. 60 capsule 11 05/06/2013 11/23/2013 lactulose (CHRONULAC) 20 gram/30 mL solution Take [...] EST TH Visit (TeleHealth) [place] [address] Lashae Lorenzo MD [facility] [place] [address] documented as of this encounter Procedures Procedure Name Priority Date/Time Associated Diagnosis Comments US ABDOMEN COMPLETE WITH VASCULAR Routine 05/06/2013 11:28 AM EST Cirrhosis of liver documented in this encounter Results * US abdomen complete with vascular (05/06/2013 11:28 AM EST) Anatomical Region Laterality Modality Abdomen Ultrasound 05/06/2013 11:2 8 AM EST Narrative 05/06/2013 12:42 PM EST ?Abdominal Duplex ? (Signed Final 05/06/2013 12:41 pm) Patient Info ID: ? [id number] ? : ??[birth year] (52 yrs) Name: ? KALLIE SMART ?Visit Date: 05/06/2013 11:19 am Performed By Performed By: ?Violetta Vaughan RDMS Attending: ? Gisella STOCKTON, Renu Gordillo Referred By: ? SOFIA DAVIS APRN Service(s) Provided UABDCVASC - Abdominal Complete Survey with ?79293, 83081 Vascular - [id number], [id number] Indications cirrhosis, HCC surveillance Comparison Abdominal ultrasound [...] Final 05/06/2013 12:41 pm) Patient Info ID: [id number] : 60 (52 yrs) Name: KALLIE SMART Visit Date: 05/06/2013 11:19 am Performed By Performed By: Violetta Vaughan RDMS Attending: Renu Obando MD Referred By: SOFIA DAVIS APRN Service(s) Provided UABDCVASC - Abdominal Complete Survey with 11414, 97056 Vascular - [id number], [id number] Indications cirrhosis, HCC surveillance Comparison Abdominal ultrasound [...] alcohol documented in this encounter Care Teams Dry Cell And Battery Assembler Relationship Specialty Start Date End Date Jennie Resendiz MD [address] [place] [address] PCP - General 03/06/10 08/27/16 documented as of this encounter
--- OUTSIDE RECORDS SUMMARY | 2024-01-23 00:35 | XMS_ITS | Encounter Summary ---
Author Organization [facility] [place] [address] Care Team Providers Care Stencil Typist Name Role Phone Jennie Resendiz MD Primary Care Provider [phone] Reason for Visit * Reason Comments Follow-up Encounter Details Date Type Department Care Team (Late st Contact Info) Description 11/23/2013 3:00 PM EDT Follow-[place] [phone] CLINIC, Sofia Roque [facility] [place] [address] Cirrhosis of liver (Primary Dx); Screening for colon cancer Discharge Disposition: Home Social History Tobacco Use [...] Sign Reading Time Taken Comments Blood Pressure 123/71 11/23/2013 2:53 PM EDT Pulse 67 11/23/2013 2:53 PM EDT Temperature - - Respiratory Rate - - Oxygen Saturation - - Inhaled Oxygen Concentration - - Weight 111.4 kg (245 lb 8 oz) 11/23/2013 2:53 PM EDT Height 165.1 cm (5' 5) 11/23/2013 2:53 PM EDT Body Mass Index 40.85 11/23/2013 2:53 PM EDT documented in this encounter Progress Notes * Sofia Woodard, SHOPPER'S AIDE - 11/23/2013 3:19 PM EDT Subjective: Patient ID: Kallie Smart [...] year old white female seen today at [facility] in consultation for hepatosplenomegaly on [...] drinking. She started seeing a counselor in [facility] who is going to help her [...] Basophils % Latest Range: 0.0-2.0 % 0.3 Alrissa Gran Abs Latest Range: 0.00-0.05 x10(3)/mcL 0.02 [...] and Plan: Ms. Smart is a pleasant 52 year old white [...] imaging. She will be due again in May 2013 with ultrasound and labs. Tylenol is safe to take as needed up to 2 grams/24 hrs in setting of cirrhosis but should not be mixed with ETOH. 2. Alcohol abuse. I had a charlie [...] 4. Portal Hypertension with Grade I EV. Increase Coreg 12.5 mg BID. Today's pulse is 67 and BP 123/71. The goal HR should be around 64 bpm. She is tolerating this medication fairly well, only noting mild increase in daytime fatigue. 5. HE. Continue Lactulose 30 cc once daily with goal of 2-4 BM daily. This also helps her constipation. 6. Poor prep for screening colonoscopy. She is due for repeat colo with 2-day prep and 2 gallons Golytely. 7. Mood disorder. She started seeing a counselor but has not seen him recently. Encouraged her to continue. 8. GERD, well-controlled. Continue Nexium 40 mg once daily 9. Abd pain. This is attributed to her constipation. She does take ibuprofen PRN for this pain. Advised that she should avoid NSAIDs and ASA. Tylenol is the SAFEST OTC medication she can take, up to 2000 mg in 24 hour period as long as she is not consuming alcohol. 10. Muscle cramps. She has not been taking the zinc 220 mg BID; rec that she start this. 11. Preventative Health. Rec influenza vaccine annually All of the patients questions were answered at the conclusion of the visit. She verbalized understanding and agreement to the plan of care. -Colonoscopy with 2 day prep and [address] Taveras -F/U appt in 6 months with repeat labs and ultrasound documented in this encounter Plan of Treatment Upcoming Encounters Date Type Department Care Team (Late st Contact Info) Description 02/27/2024 2:45 PM EST TH Visit (TeleHealth) [place] [phone] Lashae Lorenzo MD [facility] [place] [address] Scheduled Orders Name Type Priority Associated Diagnoses Orde r Schedule COLONOSCOPY Procedures Routine Screening for colon cancer Ordered: 11/23/2013 documented as of this encounter Procedures Procedure Name Priority Date/Time Associated Diagnosis Comments HEMOGRAM Routine 11/23/2013 2:14 PM EDT Cirrhosis of liver DIFFERENTIAL, AUTOMATED Routine 11/23/2013 2:14 PM EDT Cirrhosis of liver ZINC Routine 11/23/2013 2:14 PM EDT Cirrhosis of liver AFP TUMOR MARKER Routine 11/23/2013 2:14 PM EDT Cirrhosis of liver PROTHROMBIN TIME Routine 11/23/2013 2:14 PM EDT Cirrhosis of liver CBC (WITH DIFF) Routine 11/23/2013 2:14 PM EDT Cirrhosis of liver COMPREHENSIVE METABOLIC PANEL Routine 11/23/2013 2:14 PM EDT Cirrhosis of liver documented in this encounter Results * US abdomen complete with vascular (07/07/2014 1:58 PM EDT) Anatomical Region Laterality Modality Abdomen Ultrasound 07/07/2014 1:58 PM EDT Narrative 07/07/2014 4:10 PM EDT Abdominal Duplex ? (Signed Final 07/07/2014 04:09 pm) Patient Info ID #: ? [id number] ? : 60 (53 yrs) Name: ? KALLIE SMART ?Visit Date:07/07/2014 01:53 pm Performed By Performed By: ?Yumi Toscano RDMS Attending: ? Rhiannon STOCKTON, Carmen JAmrik Referred By: ? SOFIA E. POLLIS SHOPPER'S AIDE Service(s) Provided ??UABDCVASC - Abdominal Complete Survey with Vascular - 09181, 77606 ??[id number], [id number] Indications ??cirrhosis, HCC surveillance, portal HTN surveillance [...] ?Patent Vein: Portal Vein At ?28.0 ?Hepatopetal [place]: Main Portal ? 22.0 ?Hepatopetal Vein: Right Portal ?12.0 ?Hepatopetal Vein: Left Portal Vein: 16.0 ?Hepatopetal Splenic Vein At ?? 30.0 ?Hepatopetal [place]: IVC: ?Patent Collaterals: ??Recanalized periumbilical vein Comment: [...] and agree with the above interpretation. ?Carmen Jurado MD Electronically Signed Final Report ?? 07/07/2014 04:09 pm Procedure Note Carmen Jurado MD - 07/07/2014 Abdominal Duplex (Signed Final 07/07/2014 04:09 pm) Patient Info ID #: [id number] : 60 (53 yrs) Name: KALLIE SMART Visit Date:07/07/2014 01:53 pm Performed By Performed By: Yumi Toscano RDMS Attending: Carmen Jurado MD Referred By: SOFIA WOODARD APRN Service(s) Provided UABDCVASC - Abdominal Complete Survey with Vascular - 61030, 66125 [id number], [id number] Indications cirrhosis, HCC surveillance, portal HTN surveillance [...] Patent Vein: Portal Vein At 28.0 Hepatopetal [place]: Main Portal 22.0 Hepatopetal Vein: Right Portal 12.0 Hepatopetal Vein: Left Portal Vein: 16.0 Hepatopetal Splenic Vein At 30.0 Hepatopetal [place]: IVC: Patent Collaterals: Recanalized periumbilical vein Comment: [...] Salomon MD IMG US GEN ORDERABLE S * Differential, Automated (11/23/2013 2:14 PM EDT) Neutrophil % 48.0 34.0 - 71.0 % CERNER MILLENNIUM Neutrophil Absolute 3.04 1.50 - 6.30 x10(3)/mcL CERNER MILLENNIUM Lymph % 40.8 19.0 - 53.0 % CERNER MILLENNIUM Lymphocytes Abs 2.6 1.0 - 3.6 x10(3)/mcL CERNER MILLENNIUM Monocyte % 7.0 4.0 - 13.0 % CERNER MILLENNIUM Monocyte Abs 0.4 0.2 - 1.0 x10(3)/mcL CERNER MILLENNIUM Eos % 3.6 0.0 - 7.0 % CERNER MILLENNIUM Eosinophils Abs 0.2 0.0 - 0.5 x10(3)/mcL CERNER MILLENNIUM Basophil % 0.3 0.0 - 2.0 % CERNER MILLENNIUM Baso Absolute 0.0 0.0 - 0.2 x10(3)/mcL CERNER MILLENNIUM Immature Gran % 0.30 0.00 - 0.66 % CERNER MILLENNIUM Comment: Immature granulocytes(IG's)percentage and absolute count will include metamyelocytes, myelocytes, and promyelocytes. Blood smears from CBCs yielding IG's will be scanned manually for concordance. If this scan disagrees with the automated IG or if promyelocytes are noted, a manual differential will be performed. Immature Gran Absolute 0.02 0.00 - 0.05 x10(3)/mcL CERNER MILLENNIUM Blood specimen (specimen) 11/23/2013 2:14 PM EDT 11/23/2013 2:20 PM EDT Narrative Resulting Agency Comment Spec In Lab Timothy Paul MD HEMATOLOGY ORDERABL ES CERNER MILLENNIUM * (ABNORMAL) Hemogram (11/23/2013 2:14 PM EDT) White Blood Cell 6.3 4.0 - 10.0 x10(3)/mc L CERNER MILLENNIUM Red Blood Cell 4.42 3.93 - 5.22 x10(6)/mc L CERNER MILLENNIUM Hemoglobin 14.1 11.2 - 15.7 gm/dL CERNER MILLENNIUM Hematocrit 42.2 34.0 - 45.0 % CERNER MILLENNIUM Mean Cell Volume 95.5(H) 79.0 - 94.0 fL CERNER MILLENNIUM Mean Cell Hemoglobin 31.9 26.6 - 32.2 pg CERNER MILLENNIUM Mean Cell Hemoglobin Concentration 33.4 32.0 - 36.5 gm/dL CERNER MILLENNIUM Platelet 141(L) 145 - 370 x10(3)/mc L CERNER MILLENNIUM RDW Standard Deviation 47.1(H) 35.0 - 46.0 fL CERNER MILLENNIUM RDW coefficient of variation 13.5 10.9 - 14.4 % CERNER MILLENNIUM Mean Platelet Volume 11.0 9.0 - 12.0 fL CERNER MILLENNIUM Blood specimen (specimen) 11/23/2013 2:14 PM EDT 11/23/2013 2:20 PM EDT Narrative Resulting Agency Comment Spec In Lab Timothy Paul MD HEMATOLOGY ORDERABL ES Performing Organization Address [facility] de Phone Number [facility] * AFP tumor marker (11/23/2013 2:14 PM EDT) Alpha Fetoprotein 4.8 <=8.3 ng/mL [facility] MIJAR[facility] Blood specimen (specimen) 11/23/2013 2:14 PM EDT 11/23/2013 2:20 PM EDT Narrative Resulting Agency Comment Spec In Lab Timothy Paul MD CHEMISTRY ORDERABLE S Performing Organization Address [facility] Phone Number [facility] * Prothrombin Time (11/23/2013 2:14 PM EDT) Prothrombin Time 15.1 12.5 - 15.5 sec [facility] Comment: [facility] Transfusion Committee Guidelines: INR less than 2.0, PTT less than OR equal to 43.5 seconds, or Fibrinogen greater than or equal to 100 mg/dl indicate adequate procoagulant activity for hemostasis in patients without underlying bleeding disorders. International Normalization Ratio 1.1 0.9 - 1.1 [facility] Blood specimen (specimen) 11/23/2013 2:14 PM EDT 11/23/2013 2:20 PM EDT Narrative Resulting Agency Comment Spec In Lab Timothy Paul MD HEMATOLOGY ORDERABL ES Performing Organization Address [facility] de Phone Number [facility] * (ABNORMAL) Comprehensive metabolic panel (non-fasting) (11/23/2013 2:14 PM EDT) Glucose 100 60 - 199 mg/dL [facility] Comment:Diabetes: >=200 mg/d L plus symptoms Blood Urea Nitrogen 8 8 - 18 mg/dL [facility] Creatinine 0.73 0.70 - 1.20 mg/dL [facility] MILLENNIUM Comment: Please note that the pediatric reference intervals supplied above were not validated at [facility]. Results from pediatric patients should be interpreted [...] questions. Chloride 101 98 - 107 mmol/L CERNER MILLENNIUM Carbon Dioxide 24 22 - 31 mmol/L CERNER MILLENNIUM Anion Gap 13 5 - 15 mmol/L CERNER MILLENNIUM Calcium 11.4(H) 8.5 - 10.5 mg/dL CERNER MILLENNIUM Protein, Total 7.5 6.4 - 8.3 gm/dL CERNER MILLENNIUM Albumin 4.7 3.2 - 5.2 gm/dL CERNER MILLENNIUM Aspartate Aminotransferase 69(H) 0 - 30 unit/L CERNER MILLENNIUM Alanine Aminotransferase 55(H) 0 - 30 unit/L CERNER MILLENNIUM Alkaline Phosphatase 174(H) 40 - 104 unit/L CERNER MILLENNIUM Bilirubin, Total 0.4 0.2 - 1.3 mg/dL CERNER MILLENNIUM Bilirubin, [...] the following links into your internet browser. [email or web address] Blood specimen (specimen) 11/23/2013 2:14 PM EDT 11/23/2013 2:20 PM EDT Narrative Resulting Agency Comment Spec In Lab Timothy Paul MD CHEMISTRY ORDERABLE S LILLIE HUIZAR * Zinc (11/23/2013 2:14 PM EDT) Zinc 0.70 0.66 - 1.10 mcg/mL LILLIE MIJARESIUM Comment: Test Performed by: [place] [address] First Aid Teacher: Kevin Blackburn III, M.D. Blood specimen (specimen) 11/23/2013 2:14 PM EDT 11/23/2013 3:09 PM EDT Narrative Resulting Agency Comment Spec In Lab Timothy Paul MD LAB SEND OUT ORDERA BLES Performing Organization Address City/[facility]/ZIP Co de Phone Number LILLIE HUIZAR documented in this encounter Visit Diagnoses Diagnosis Cirrhosis of liver- Primary Cirrhosis of liver without mention of alcohol Screening for colon cancer Special screening for malignant neoplasms, colon Cirrhosis of liver Cirrhosis of liver without mention of alcohol documented in this encounter Care Teams Stencil Typist Relationship Specialty Start Date End Date Jennie Resendiz MD [facility] [address] [place] [address] PCP - General 03/06/10 08/27/16 documented as of this encounter
--- OUTSIDE RECORDS SUMMARY | 2024-01-23 00:35 | XMS_ITS | Encounter Summary ---
Author Organization Formerly [facility] [place] [address] Care Team Providers Care Shop And Alteration Tailor Name Role Phone Jennie Resendiz MD Primary Care Provider [phone] Reason for Visit * Reason Comments Follow-up Encounter Details Date Type Department Care Team (Late st Contact Info) Description 05/06/2013 1:00 PM EST Follow-Up [place] [id number] CLINIC, Sofia oRque APRN [facility] DR [place] [address] Ashley Salomon MD [facility] [place] [address] Cirrhosis of liver (Primary Dx) Discharge Disposition: [...] Sign Reading Time Taken Comments Blood Pressure 125/97 05/06/2013 12:43 PM EST Pulse 92 05/06/2013 12:43 PM EST Temperature - - Respiratory Rate - - Oxygen Saturation - - Inhaled Oxygen Concentration - - Weight 110.7 kg (244 lb) 05/06/2013 12:43 PM EST Height 165.1 cm (5' 5) 05/06/2013 12:43 PM EST Body Mass Index 40.6 05/06/2013 12:43 PM EST documented in this encounter Patient Instructions * Patient Instructions* Sofia Woodard APRN - 05/06/2013 1:43 PM EST 1. Increase Coreg to 12.5 mg, twice daily with food 2. Zinc 220 mg, one tablet twice daily for the muscle cramps 3. Lactulose 30 mL twice daily for the constipation (you can adjust the dose) 4. Avoid ibuprofen, Motrin, Aleve, Advil, aspirin, naproxen. 5. Tylenol is SAFE to take up to 2000 mg in a 24 hour period (2 extra strength Tylenol every 12 hours) documented in this encounter Progress Notes * Sofia Woodard APRN - 05/06/2013 1:01 PM EST Subjective: Patient ID: Kallie Smart is a 52 y.o. female. HPI Problem [...] AFP 2 (09/18/12). Due again March 2013. 5. Pneumovax - administered 05/06/13 6. Influenza Vaccine - administered 05/06/13 Initial Visit 01/24/12: Ms. Smart is a 51 year old white female seen today at [facility] in consultation for hepatosplenomegaly on [...] drinking. She started seeing a counselor in [facility] who is going to help [...] duodenum. Recommendation: Follow-up in clinic with Ms. Hollingsworthtu. Abdominal Ultrasound 09/18/12: Impression Ultrasound - Abdomen Complete - Summary Hepatosplenomegaly with diffusely increased hepatic echogenicity. No focal heptatic mass. Abnormal collateral vessels seen in brandie hepatitis and gastrohepatic ligament. Findings suggest portal hypertension. No ascites seen. Non obstructing stone right kidney. Ultrasound - Vascular evaluation - Summary The hepatic veins, portal veins and hepatic artery are patent with normal directional flow. Abdominal Ultrasound 05/06/13: Impression Ultrasound - Abdomen Complete - Summary [...] artery are patent with normal directional flow. Labs 05/06/13: Results for KALLIE SMART ( ) as of 05/06/2013 13:23 Ref. Range 05/06/2013 12:32 05/06/2013 12:35 WBC Latest Range: 4.0-10.0 x10(3)/mcL 6.0 RBC Latest Range: 3.93-5.22 x10(6)/mcL 4.49 Hemoglobin Latest Range: 11.2-15.7 gm/dL 13.8 Hematocrit Latest Range: 34.0-45.0 % 41.2 MCV Latest Range: 79.0-94.0 fL 91.8 MCH Latest Range: 26.6-32.2 pg 30.7 MCHC Latest Range: 32.0-36.5 gm/dL 33.5 RDWSD Latest Range: 35.0-46.0 fL 44.4 RDWCV Latest Range: 10.9-14.4 % 13.4 Platelets Latest Range: 145-370 x10(3)/mcL 132 (L) MPV Latest Range: 9.0-12.0 fL 10.6 Neutr Abs (ANC) Latest Range: 1.50-6.30 x10(3)/mcL 2.68 Neutrophils % Latest Range: 34.0-71.0 % 44.6 Immature Gran % Latest Range: 0.00-0.66 % 0.30 Lymphocytes % Latest Range: 19.0-53.0 % 44.7 Monocytes % Latest Range: 4.0-13.0 % 7.5 Eosinophils % Latest Range: 0.0-7.0 % 2.7 Basophils % Latest Range: 0.0-2.0 % 0.2 Larissa Gran Abs Latest Range: 0.00-0.05 x10(3)/mcL 0.02 Lymphocytes Abs Latest Range: 1.0-3.6 x10(3)/mcL 2.7 Monocyte Abs Latest Range: 0.2-1.0 x10(3)/mcL 0.4 Eosinophils Abs Latest Range: 0.0-0.5 x10(3)/mcL 0.2 Basophils Abs Latest Range: 0.0-0.2 x10(3)/mcL 0.0 PT Latest Range: 12.0-15.0 sec 14.8 INR Latest Range: 0.9-1.1 1.1 Sodium Latest Range: 135-145 mmol/L 140 Potassium Latest Range: 3.5-5.0 mmol/L 4.1 Chloride Latest Range: 98-107 mmol/L 102 CO2 Latest Range: 22-31 mmol/L 27 Anion Gap Latest Range: 5-15 mmol/L 11 BUN Latest Range: 8-18 mg/dL 11 Creatinine Latest Range: 0.70-1.20 mg/dL 0.75 Estimated GFR Latest Range: >=60 >60 Glucose Lvl Latest Range: 60-199 mg/dL 107 Calcium Latest Range: 8.5-10.5 mg/dL 11.5 (H) Total Protein Latest Range: 6.4-8.3 gm/dL 8.0 Albumin Latest Range: 3.2-5.2 gm/dL 4.8 Total Bilirubin Latest Range: 0.2-1.3 mg/dL 0.5 Bili, Direct Latest Range: 0.0-0.3 mg/dL 0.1 Alk Phos Latest Range: 40-104 unit/L 171 (H) AST Latest Range: 0-30 unit/L 106 (H) ALT Latest Range: 0-30 unit/L 59 (H) Review of Systems Constitutional: Negative for fever, chills, diaphoresis, fatigue and unexpected weight change. Body mass index is 39.77 kg/(m^2). HENT: [...] and well-nourished. HENT: Head: Normocephalic and atraumatic. Eyes: Pupils [...] to binge drink; her last ETOH was 04/13/13. Her risk factors for HARDEN include Class II obesity, hyperlipidemia, DM2 and hypothyroid. In the treatment of HARDEN, aggressive control of diabetes, BP, lipids and thyroid is imperative. I will defer to PCP's expertise with regards to managing her diabetes, lipidsand hypothyroid. I have advised slow sustained weight loss through diet and exercise. She will continue to need bi-annual HCC surveillance with labs and imaging. She will be due again in October 2013 with ultrasound and labs. Tylenol is [...] Coreg 12.5 mg BID. Today's pulse is 92 and BP 125/97. The goal HR should be around 64 bpm. She is tolerating this medication fairly well, only noting mild increase in daytime fatigue. 5. Constipation. Miralax did not work. Rx Lactulose 30 cc BID; titrate dose so having 2-4 BM daily. 6. Poor prep for screening colonoscopy. She will need repeat in 12 months with 2-day prep and 2 gallons Golytely. 7. Mood disorder. She started seeing a counselor. Encouraged her to continue. 8. GERD, well-controlled. Continue Nexium 40 mg once daily 9. Abd pain. This is attributed to her constipation. She does take ibuprofen PRN for this pain. Advised that she should avoid NSAIDs and ASA. Tylenol is the SAFEST OTC medication she can take, up to 2000 mg in 24 hour period. 10. Muscle cramps. Rx zinc 220 mg BID. 11. Preventative Health. She has not had her flu shot yet this year; administered influenza vaccinetoday 05/06/13. Administered pneumovax today 05/06/13; she will be due again 04/2018. All of the patients questions were answered at the conclusion of the visit. She verbalized understanding and agreement to the plan of care. -F/U appt in 6 months with labs and ultrasound 45 min of this 55 min visit spent counseling pt documented in this encounter Plan of Treatment Upcoming Encounters Date Type Department Care Team (Late st Contact Info) Description 02/27/2024 2:45 PM EST TH Visit (TeleHealth) [place] [address] Lashae Lorenzo MD [facility] [place] [address] documented as of this encounter Procedures Procedure Name Priority Date/Time Associated Diagnosis Comments DIFFERENTIAL, AUTOMATED Routine 05/06/2013 12:35 PM EST LAVENDER TUBE HOLD Routine 05/06/2013 12 :35 PM EST CBC (WITH DIFF) Routine 05/06/2013 12:35 PM EST AFP TUMOR MARKER Routine 05/06/2013 12:3 2 PM EST Cirrhosis of liver PROTHROMBIN TIME Routine 05/06/2013 12:3 2 PM EST Cirrhosis of liver COMPREHENSIVE METABOLIC PANEL Routine 05/06/2013 12:32 PM EST Cirrhosis of liver documented in this encounter Results * US abdomen complete with vascular (11/23/2013 1:37 PM EDT) Anatomical Region Laterality Modality Abdomen Ultrasound 11/23/2013 1:37 PM EDT Narrative 11/23/2013 2:33 PM EDT Abdominal Duplex ? (Signed Final 11/23/2013 02:32 pm) Patient Info ID #: ? [id number] ? : [birth year] (53 yrs) Name: ? KALLIE SMART ?Visit Date:11/23/2013 01:32 pm Performed By Performed By: ?Lina Isidro RDMS Associate: ? Asa STOCKTON, Anne Attending: ? Jignesh SOTCKTON, Natalie Naranjo Referred By: ? SOFIA WOODARD HOSP[facility] ADMINISTRATOR Service(s) Provided ??UABDCVASC - Abdominal Complete Survey with Vascular - 12815, 58553 ??[id number], [id number] Indications ??cirrhosis, HCC surveillance, portal HTN surveillance [...] 11/23/2013 02:32 pm) Patient Info ID #: [id number] : [birth year] (53 yrs) Name: KALLIE SMART Visit Date:11/23/2013 01:32 pm Performed By Performed By: Lina Isidro RDMS Associate: Anne Bray MD Attending: Natalie Egan MD Referred By: SOFIA WOODARD HOSPITAL ADMINISTRATOR Service(s) Provided UABDCVASC - Abdominal Complete Survey with Vascular - 07402, [id number], [id number] Indications cirrhosis, HCC surveillance, portal HTN surveillance [...] US GEN ORDERABL ES * Differential, Automated (05/06/2013 12:35 PM EST) Neutrophil % 44.6 34.0 - 71.0 % [employer] Neutrophil Absolute 2.68 1.50 - 6.30 x10(3)/mcL CERNER MILLENNIUM Lymph % 44.7 19.0 - 53.0 % CERNER MILLENNIUM Lymphocytes Abs 2.7 1.0 - 3.6 x10(3)/mcL CERNER MILLENNIUM Monocyte % 7.5 4.0 - 13.0 % CERNER MILLENNIUM Monocyte Abs 0.4 0.2 - 1.0 x10(3)/mcL CERNER MILLENNIUM Eos % 2.7 0.0 - 7.0 % CERNER MILLENNIUM Eosinophils Abs 0.2 0.0 - 0.5 x10(3)/mcL CERNER MILLENNIUM Basophil % 0.2 0.0 - 2.0 % CERNER MILLENNIUM Baso [...] 0.05 x10(3)/mcL CERNER MILLENNIUM Blood specimen (specimen) 05/06/2013 12:35 PM EST 05/06/2013 12:44 PM EST Sofia Woodard APRN HEMATOLOGY ORDERA BLES CERNER MILLENNIUM * (ABNORMAL) CBC (with Diff) (05/06/2013 12:35 PM EST) White Blood Cell 6.0 4.0 - 10.0 x10(3)/mc L CERNER MILLENNIUM Red Blood Cell 4.49 3.93 - 5.22 x10(6)/mc L CERNER MILLENNIUM Hemoglobin 13.8 11.2 - 15.7 gm/dL CERNER MILLENNIUM Hematocrit 41.2 34.0 - 45.0 % CERNER MILLENNIUM Mean Cell Volume 91.8 79.0 - 94.0 fL CERNER MILLENNIUM Mean Cell Hemoglobin 30.7 26.6 - 32.2 pg CERNER MILLENNIUM Mean Cell Hemoglobin Concentration 33.5 32.0 - 36.5 gm/dL CERNER MILLENNIUM Platelet 132(L) 145 - 370 x10(3)/mc L CERNER MILLENNIUM RDW Standard Deviation 44.4 35.0 - 46.0 fL CERNER MILLENNIUM RDW coefficient of variation 13.4 10.9 - 14.4 % CERNER MILLENNIUM Mean Platelet Volume 10.6 9.0 - 12.0 fL CERRYLIE MILLENNIUM Blood specimen (specimen) 05/06/2013 12:35 PM EST 05/06/2013 12:44 PM EST Narrative Resulting Agency Comment Spec In Lab Sofia Woodard APRN HEMATOLOGY ORDERA BLES Performing Organization Address [facility] [place] Phone Number LILLIE MIJARESIUM * Lavender Tube HOLD (05/06/2013 12:35 PM EST) Lavender Hold Sample in lab. LILLIE MIJARESIUM Blood specimen (specimen) 05/06/2013 12:35 PM EST 05/06/2013 12:44 PM EST Sofia Woodard APRN HEMATOLOGY ORDERA BLES Performing Organization Address [facility] Co de Phone Number LILLIE MIJARESIUM * AFP tumor marker (05/06/2013 12:32 PM EST) Alpha Fetoprotein 4.6 <=8.3 ng/mL LILLIE MIJARESIUM Blood specimen (specimen) 05/06/2013 12:32 PM EST 05/06/2013 12:44 PM EST Narrative Resulting Agency Comment Spec In Lab Timothy Paul MD CHEMISTRY ORDERABLE S Performing Organization Address [facility] Co de Phone Number LILLIE MIJARESIUM * Prothrombin Time (05/06/2013 12:32 PM EST) Prothrombin Time 14.8 12.0 - 15.0 sec CERNER MILLENNIUM Comment: [facility] Transfusion Committee Guidelines: INR less than [...] HEMATOLOGY ORDERABL ES CERNER MILLENNIUM * (ABNORMAL) Comprehensive metabolic panel (non-fasting) (05/06/2013 12:32 PM EST) Glucose 107 60 - 199 mg/dL CERNER MILLENNIUM Comment:Diabetes: >=200 mg/d L plus symptoms Blood Urea Nitrogen 11 8 - 18 mg/dL CERNER MILLENNIUM Creatinine 0.75 0.70 - 1.20 mg/dL CERNER MILLENNIUM Comment: Please note that the pediatric reference intervals supplied above were not validated at [facility]. Results from pediatric patients should be interpreted [...] alcohol documented in this encounter Care Teams Shop And Alteration Tailor Relationship Specialty Start Date End Date Jennie eRsendiz MD [address] [place] [address] PCP - General 03/06/10 08/27/16 documented as of this encounter
--- OUTSIDE RECORDS SUMMARY | 2024-01-23 00:35 | XMS_ITS | Encounter Summary ---
Author Organization [facility] [place] [address] Care Team Providers Care Professor Of Political Science Name Role Phone Jennie Resendiz MD Primary Care Provider [phone] Encounter Details Date Type Department Care Team (Latest Contact Info) Description 2012 11:46 AM EDT - 2012 6:53 PM EDT Hospital En[place] [phone] Natividad Taveras MD [facility] [place] [address] Discharge Disposition: Home Social History Tobacco Use [...] * Discharge Instructions* Prerna Titus, BRY - 2012 4:44 PM EDT UPPER GI [...] you need to be checked. Friday-Friday Clinic [phone] 8a-5p Same Day Endo [phone] 7a-8p Otherwise contact [phone] and ask to speak to the submarine advisory team watch officer contract designer Follow up care is a oconnell part [...] Taveras MD - 2012 5:33 PM EDT [facility] Operative Note Patient Name: Kallie Darling : [id number] MR#: [id number] Case Date: 2012 Surgeon: Surgeon(s) and Role: [...] EST TH Visit (TeleHealth) [place] [address] Lashae Lorenzo MD [facility] [place] [address] documented as of this encounter Procedures Procedure [...] UPPER GI ENDOSCOPY (2012 3:10 PM EDT) [facility] Signature UPPER GI ENDOSCOPY [facility] Endoscopy Patient Name: Kallie Darling ? Procedure Date: 2012 3:10 PM ? Date of : 1960 ? Age: 52 ? Order #: [id number] ? Procedure: ? Upper GI endoscopy Indications: ? Cirrhosis rule out esophageal varices Providers: ? Sana Taveras MD, Mell Mixon, ? RN, Anita Conroy, Printing Engineer Referring : ?Jennie Resendiz MD, Leisa Sher ? Pollis, PARKING LOT MANAGER Medicines: ? Midazolam 4 mg IV, Fentanyl [...] * COLONOSCOPY (2012 3:10 PM EDT) COLONOSCOPY [facility] Endoscopy Patient Name: Kallie Darling ? Procedure Date: 2012 3:10 PM ? Date of : 1960 ? Age: 52 ? Order #: [id number] ? Procedure: ? Colonoscopy Indications: ? Screening for colorectal malignant ? neoplasm Providers: ? LAmrik Taveras MD, Mell Mixon, ? RN, Anita Conroy, Printing Engineer Referring MD: ?Jennie Resendiz MD, Leisa Sher ? Polltu, PARKING LOT MANAGER Medicines: ? Fentanyl 100 micrograms IV, Midazolam [...] MAR Action Action Date Dose Rate Site sodium chloride 0.9% infusion 30 mL/hr, Intravenous, [...] on Fri08/21/12 at 1540, Until Fri08/21/12 at 205, Pain, Intra-Operative (Intra-Procedure), Routine 1540 (Given - Provid er: Mell Mixon RN)1553 (Given - Provider: Mell Mixon RN)1604 (Given - Provider: Mell Mixon RN)1620 (Given - Provider: Mell Mixon RN)1624 (Given - Provider: Mell Mixon RN) midazolam (VERSED) injection (CANCELED) ONCE PRN, Starting on Fri08/21/12 at 1540, Until Fri08/21/12 at 205, Sleep, Intra-Operative (Intra-Procedure), Routine 1540 (Given - Provid er: Mell Mixon RN)1553 (Given - Provider: Mell Mixon RN)1604 (Given - Provider: Mell Mixon RN)1608 (Given - Provider: Mell Mixon RN)1620 (Given - Provider: Mell Mixon RN) documented in this encounter Care Teams Professor Of Political Science Relationship Specialty Start Date End Date Jennie Resendiz MD [address] [place] [address] PCP - General 03/06/10 08/27/16 documented as of this encounter
--- OUTSIDE RECORDS SUMMARY | 2024-01-23 00:36 | XMS_ITS | Encounter Summary ---
Author Organization [facility] [place] [address] Care Team Providers Care Machine Featheredger And Reducer Name Role Phone Jennie Resendiz MD Primary Care Provider [phone] Encounter Details Date Type Department Care Team (Late st Contact Info) Description 01/28/2012 9:00 AM EDT Clinical Support [facility] [place] [address] Social History Tobacco Use Types [...] EST TH Visit (TeleHealth[place] [address] Lashae Lorenzo MD [facility] [place] [address] documented as of this encounter Visit Diagnoses Not on filedocumented in this encounter Care Teams Machine Featheredger And Reducer Relationship Specialty Start Date End Date Jennie Resendiz MD [address] [facility] [address] [place] [address] PCP - General 03/06/10 08/27/16 documented as of this encounter
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
--- OUTSIDE RECORDS SUMMARY | 2024-01-23 00:36 | XMS_ITS | Clinical Summary ---
Author Organization [facility] Address [address] [place] [address] Care Team Providers Care Safety Lamp Keeper Name Role Phone Grant Lindsey MD Primary Care Provider [phone] Allergies Active Allergy Reactions Criticality Noted Date Comments Adhesive 06/11/2019 Medical tape causes itching and rash. Paper tape and tegaderm ar okay Amoxicillin 06/25/2018 Can't remember reaction Aspirin 06/25/2018 Nausea Amoxicillin-Pot Clavulanate Nausea Only 06/25/2018 nausea Bacitracin Nausea Only,Rash Medium 06/14/2019 Celecoxib Hives 06/14/2019 Gramicidin D Nausea Only Medium 12/24/2019 Lactose GI upset,Other (See Comments) 07/30/2010 GI Upset Lactose Intolerance (Lactase) 06/25/2018 Neomycin Nausea Only,Rash Medium 06/14/2019 Hlwpeyev-Xfyvfnsqrdz-Of lymyxnb 06/25/2018 Nausea and rash Polymyxin B Nausea Only,Rash Medium 06/14/2019 Medications Medication Sig Dispensed Refills Start Date End Date Status pantoprazole (PROTONIX) 40 mg tablet Take 40 mg by mouth 2 times daily. Active loratadine (CLARITIN) 10 mg tablet Take 10 mg by mouth daily. Active cyanocobalamin (VITAMIN B-12) 500 mcg tablet Take 1,000 mcg by mouth daily. Active carvedilol (COREG) 6.25 mg tablet Take 6.25 mg by mouth 2 times daily. Active HYDROXYZINE HCL ORAL Take 25 mg by mouth as needed. Active metFORMIN (GLUCOPHAGE) 500 mg tablet Take 1,000 mg by mouth 2 times daily. Active gabapentin (NEURONTIN) 800 mg tablet Take 800 mg by mouth 3 times daily. Active insulin aspart U-100 (NOVOLOG FLEXPEN) 100 unit/mL injectable penIndications:type 2 diabetes mellitus,increase in units depending on sugar reading Inject 5 Units into the skin 3 times daily with meals. Active fluticasone propion/salmeterol (ADVAIR DISKUS INHALATION) Inhale 2 Puffs as directed 2 times daily. Active ALBUTEROL INHL Inhale 1 Puff as directed as needed. Active lisinopriL (PRINIVIL) 10 mg tablet TAKE ONE TABLET BY MOUTH EVERY DAY FOR FOR BLOOD PRESSURE 11/21/2019 Active furosemide (LASIX) 20 mg tablet Take 20 mg by mouth daily. 11/21/2019 Active levothyroxine (SYNTHROID) 50 mcg tablet Take 50 mcg by mouth daily. Active mirtazapine (REMERON) 15 mg tablet Take 15 mg by mouth at bedtime. 10/27/2019 Active risperiDONE (RISPERDAL) 0.5 mg tablet Take 0.5 mg by mouth at bedtime. 11/30/2019 Active sertraline (ZOLOFT) 50 mg tablet Take 50 mg by mouth daily. 12/04/2019 Active CHANTIX STARTING MONTH BOX 0.5 mg (11)- 1 mg (42) tablet TAKE BY MOUTH DIRECTED ON PACKAGE. 12/09/2019 Active acetaminophen (TYLENOL) 325 mg tablet Take 2 Tabs by mouth every 4 hours as needed for Pain. 12/26/2019 Active acetaminophen (TYLENOL) 325 mg tablet Take 2 Tabs by mouth every 4 hours as needed for Pain. 01/07/2020 Active docusate sodium (COLACE) 100 mg capsule Take 1 Cap by mouth 2 times daily. 01/07/2020 Active Additional Information Patient not taking.Reported on 10/08/2021 methocarbamoL (ROBAXIN) 750 mg tablet Take 1 Tab by mouth 4 times daily. 30 Tab 01/07/2020 Active Additional Information Patient not taking.Reported on 10/08/2021 oxyCODONE (ROXICODONE) 5 mg immediate release tablet Take 1 Tab by mouth every 4 hours as needed for Pain (discomfort). Daily Max: 30 mg 10 Tab 01/07/2020 Active Additional Information Patient not taking.Reported on 10/08/2021 senna (SENOKOT) 8.6 mg tablet Take 1 Tab by mouth 2 times daily. 01/07/2020 Active Additional Information Patient not taking.Reported on 10/08/2021 omeprazole (PRILOSEC) 20 mg capsule Take 20 mg by mouth daily. Active Active Problems Problem Noted Date Diagnosed Date Aneurysm ([facility]) 01/05/2020 Headache 12/25/2019 Cerebral aneurysm, nonruptured 12/02/2019 Overview: Added automatically from request for surgery [id number] Surgical History Surgery Date Site/Laterality Comments HERNIA REPAIR TOE AMPUTATION 12/24/2019 right middle toe THYROIDECTOMY, PARTIAL 12/24/2019 - not sure which side Medical History Medical History Date Comments Diabetes mellitus ([facility]) Thyroid disease History of general anesthesia TMJ syndrome Edentulous 12/24/2019 lower Wears dentures full de nture top Patient unable to exercise 2019 - balance issues Exercise involving housework 12/13 - does own cooking as well Hyperlipidemia Hypertension 12/24/2019 well c ontrolled per pt Chest pain 12/24/2019 - with anxiety; to have EKG 12/30/2019 Sleep apnea 12/24/2019 - no l onger has CPAP, wasn't working properly, was removed and never replaced Diabetes mellitus, type 2 ([facility]) 12/24/2019 cheks daily , usually mid 80's to about 118; had A1c done in November - was good but results not in computer Parathyroid disease ([facility]) 02/2020 pt is not sure if she has parthyroid disease, was on problem list GERD (gastroesophageal reflux disease) 12/24/2019 well controlled 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 quit drinking in 2016 Blood in urine 12/24/2019 - come s and goes, per pt, not known why Cerebral artery occlusion wi th cerebral infarction ([facility]) 12/24/2019 in 2016 or 2017, h ad dysphasia and left side weakness and paralysis - gone now Balance disorder 12/24/2019 - i' ve always had that - affects vision and ability to drive Depression Anxiety 12/24/2019 - well controlled Arthritis 12/24/2019 - righ t hip and lower back Family History Medical History Relation Comments Heart Disease Father Hypertension Father Cataract Mother Diabetes Mother High Blood Pressure Mother High Cholesterol Mother Relation Status Comments Father Mother Social History Tobacco Use Types Packs/Day Years Used Date Smoking Tobacco: Former Cigarettes 0.5 45 0 12/18/1974 - 12/19/2019 Smokeless Tobacco: Never Alcohol Use Standard Drinks/Week Comments No 0 (1 standard drink = 0.6 oz pure alcohol) stop drinking in 2016 - h/o cirrhosis AUDIT-C Answer Date Recorded Q1: How often do you have a drink containing alc ohol? Never 02/03/2020 Average Number of Drinks Not on file 020 Frequency of Binge Drinking Not on file 01/13 PHQ-2 Answer Date Recorded PHQ-2 SUBTOTAL 1 02/03/2020 Interpersonal Safety Answer Date Record ed Physically Hurt Never 11/14/2019 Verbally Threaten Not on file 11/14/2019 Sex and Gender Information Value Date Recorded Sex Assigned at Not on file Gender Identity Female 09/09/2019 13:11 EDT Sexual Orientation Not on file Obstetrics History Last Filed Vital Signs Vital Sign Reading Time Taken Comments Blood Pressure 110/72 10/08/2021 1040 EDT Pulse 83 10/08/2021 1040 EDT Temperature 35.8 ??C (96.4 ??F) 02/04/2020 1330 EDT Respiratory Rate 16 02/04/2020 1330 EDT Oxygen Saturation 98% 10/08/2021 1040 EDT Inhaled Oxygen Concentration - - Weight 100.2 kg (221 lb) 10/08/2021 1040 EDT Height 165.1 cm (5' 5) 10/08/2021 1040 EDT Body Mass Index 36.78 10/08/2021 1040 EDT Plan of Treatment Health Maintenance Due Date Last Done Comments Hepatitis C Screen 1960 Lung Cancer Screening 1960 Pneumococcal Immunization (1 of 2 - PCV) 1966 RSV Immunization ( o r 60+ Years) (1 - 1-dose 60+ series) 2020 COVID-19 Vaccine ( - 2022-24 season) 2022 Medical Devices Implanted Type Area Clay Burner Device Identifier Shelf Expiration Date Model / Serial / Lot Cover Carson Hole Cranial Low Profile W/Tab 0.4x14mm Mcdonald Neuro Iii [id number] - [id number] Implanted:Qty : 2 on 01/05/2020 by Alfonzo Cobb MD at [facility] Plate Implant Right: Brain MARIZA LEIBINGER [id number] / / Plate Bone Cmf Mdface Lp 2h 0.4x12mm [id number] - [id number] Implanted:Qty : 1 on 01/05/2020 by Alfonzo Cobb MD at [facility] Plate Implant Right: Brain MARIZA LEIBINGER [id number] / / Plate Bone Cmf Skull Base Lp [id number] Mcdonald Neuro Ii [id number] - [id number] Implanted:Qty : 1 on 01/05/2020 by Alfonzo Cobb MD at [facility] Plate Implant Right: Brain MARIZA JOSEBINGER [id number] / / Screw Bone Cmf Mandib St 1.5x4mm Mcdonald Neuro Iii [id number] - [id number] Implanted:Qty : 11 on 01/05/2020 by Alfonzo Cobb MD at [facility] Screw Implant Right: Brain MARIZA JOSEBINGER [id number] / / Duragen 5 X 5cm [id number] - [id number] Implanted:Qty : 1 on 01/05/2020 by Alfonzo Cobb MD at [facility] Tissue Right: Brain [employer] CHEVY 05/14/2022 [id number] / / [id number] Tii Mini 7.5 Curved 7mm [id number] ri Safe 1.5t Only Implanted:Qty : 1 on 01/05/2020 by Alfonzo Cobb MD at [facility] Right: Brain OdinOtvet [id number] / / Description:MRI safe to 1.5T ONLY per [email or web address]. MGB 02/03/2020. Payroll Officer, Kallie A Personal/Famil y Self [address] [place] [address] Payroll Officer, Kallie A Personal/Famil y Self [address] [place] [address] Payroll Officer, Kallie A Personal/Famil y Self [address] [place] [address] Advance Directives For more information, please contact: [phone] Documents on File Type Date Recorded Patient Liquor Rectifier Expl anation Advance Directive 01/05/2020 5:39 [place] Advan ce Directive for Health Care Signed 2019-12-15 * Full Code (Latest Code Status on File) Date Activated Date Inactivated Comments 02/03/2020 20:45 02/04/2020 16:21 Question Answer Comments Reason for decision includes: Full code consistent with overall plan of care Who participated in the discussion? Not Discusse d * Full Code Date Activated Date Inactivated Comments 01/05/2020 6:28 01/07/2020 12:21 Question Answer Comments Reason for decision includes: Full code consistent with overall plan of care Who participated in the discussion? Not Discusse d * Full Code Date Activated Date Inactivated Comments 12/25/2019 20:36 12/26/2019 14:18 Question Answer Comments Reason for decision includes: Full code consistent with overall plan of care Who participated in the discussion? Not Discusse d Care Teams Safety Lamp Keeper Relationship Specialty Start Date End Date Grant Lindsey MD [address] [place] [address] PCP - General 09/09/19
--- OUTSIDE RECORDS SUMMARY | 2024-01-23 00:36 | XMS_ITS | Encounter Summary ---
Author Organization [facility] Address [facility] [address] Care Team Providers Care Outside Sales Account Representative Name Role Phone Jennie Resendiz MD Primary Care Provider Encounter Details Date Type Department Care Team (Latest Contact Info) Description 02/17/2012 10:06 AM EST - 02/17/2012 2:40 PM EST Hospital Encounter [place] [address] Ashley Salomon MD [facility] [place] [address] Genaro Hoover MD [facility] [address] [place] [address] Clark Cardenas MD [address] [place] [address] [place] [address] Discharge Disposition: Home Social History Tobacco Use [...] - 02/17/2012 1:19 PM EST Please call [phone], before 5pm with problems, questions or concerns, after 5pm call the Hospital at [phone] and ask to speak to the Dental Laboratory Worker regional planner and the power mule operator will contactthat person for you. Discharge [...] * COLONOSCOPY: WHAT TO EXPECT AT HOME (BERMUDIAN) documented in this encounter Medications at Time [...] EST TH Visit (TeleHealth) [place] [address] Lashae Lorenzo MD [facility] [place] [address] documented as of this encounter Procedures Procedure Name Priority Date/Time Associated Diagnosis Comments COLONOSCOPY, DIAGNOSTIC (WRVU 3.26) 02/17/2012 12:33 PM EST Elevated liver function tests COLONOSCOPY Routine 02/17/2012 12:04 PM EST documented in this encounter Results * COLONOSCOPY (02/17/2012 12:04 PM EST) COLONOSCOPY [facility] Endoscopy Patient Name: Kallie Darling ? Procedure Date: 02/17/2012 12:04 PM ? Date of : 1960 ? Age: 51 ? Order #: [id number] ? Procedure: ? Colonoscopy Indications: ? Screening for colorectal malignant ? neoplasm, Constipation Providers: ? Clark Cardenas MD, Abdulaziz Goodrich ? , RN, Bruna Connelly, Novelty Worker Referring MD: ?Jennie Resendiz MD Medicines: ? [...] Dose Rate Site sodium chloride 0.9% infusion 50 mL/hr, Intravenous, [...] Routine 1236 (Given - Provid er: Abdulaziz Phillips, RN)1245 (Given - Provider: Abdulaziz Phillips, RN)1251 (Given - Provider: Abdulaziz Phillips RN) documented in this encounter Care Teams Outside Sales Account Representative Relationship Specialty Start Date End Date Jennie Resendiz MD [address] [place] [address] PCP - General 03/06/10 08/27/16 documented as of this encounter"
--- OUTSIDE RECORDS SUMMARY | 2024-01-23 00:36 | XMS_ITS | Encounter Summary ---
[place] [address] Care Team Providers Care Provider Relations Representative Name Role Phone Jennie Resendiz MD Primary Care Provider [phone] Reason for Referral * Physical Therapy (Routine) - Closed by system - Referral Specialty Diagnoses / Procedures Referred By Contac t Referred To Contact Physical Therapy Diagnoses Chronic neck pain Dorinda Lira APRN [facility] [place] [address] [facility] [place] [address] Referral ID Status Reason Start Date Expiration Date Visits Requested Visits Authorized [id number] Closed by system - Referral Evaluate and Treat 07/30/2010 01/26/2011 1 1 Reason for Visit * Reason Comments Pain, Chronic Encounter Details Date Type Department Care Team (Late st Contact Info) Description 07/30/2010 3:15 PM EDT Office [place] [address] Dorinda Lira APRN [facility] [place] [address] Chronic neck pain (Primary Dx); Back pain; Right leg pain; Left arm pain; Chronic pain Discharge Disposition: Home Social History Tobacco Use Types Packs/Day Years Used Date Smoking Tobacco: Never Assessed Sex and Gender Information Value Date Recorded Sex Assigned at Not on file Gender Identity Not on file Sexual Orientation Not on file documented as of this encounter Progress Notes * Dorinda Lira APRN - 07/30/2010 4:14 PM EDT S: Kallie is being seen today for medical clearance for the Functional Yazidi program, a graduated exercise program aimed at The patient achieving herfunctional goals, despite having chronic pain. Her pain pattern is described as back neck right leg and left arm pain for several years, She has had treatments including pain consults , medication and physical therapy.. 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 Recreational: Walk at least 1 mile. Daily Living: Stand for at least 30 minutes to mop floor. O: Please see Mr Kovacs's note of today for details of the physical testing and current functionalLevel. In general she was not able to lift and could not tolerate the treadmill testing for more than a minute. A and P: There may be a gap between Her goals and abilities.This was a counseling visit for 45 minutes talking about symptom and functional recovery and we have mutually decided to proceed with an appointment for conditioning and goals clarification with Mr Kovacs. If she needs another medical clearance appointment Prior to participation in the rehab program that can be aranged by Mr Kovacs following plan. . documented in this encounter Plan of Treatment Upcoming Encounters Date Type Department Care Team (Late st Contact Info) Description 02/27/2024 2:45 PM EST TH Visit (TeleHealth) [place] [address] Lashae Lorenzo MD [facility] [place] [address] Scheduled Referrals Name Type Priority Associated Diagnoses Orde r Schedule REFERRAL TO PHYSICAL THERAPY Outpatient Referral Routine Chronic neck pain Ordered: 07/30/2010 documented as of this encounter Procedures Procedure Name Priority Date/Time Associated Diagnosis Comments DIAGNOSTIC RADIOLOGY SCAN Routine 06/22/2010 DIAGNOSTIC RADIOLOGY SCAN Routine 08/11/2009 documented in this encounter Results * Scan Doc: Diagnostic Radiology (06/22/2010) Anatomical Region Laterality Modality Other Scanning Provider MEDIA MGR SCAN EXT O RDR/RSLT * Scan Doc: Diagnostic Radiology (08/11/2009) Anatomical Region Laterality Modality Other Scanning Provider MEDIA MGR SCAN EXT O RDR/RSLT documented in this encounter Visit Diagnoses Diagnosis Chronic neck pain- Primary Cervicalgia Back pain Backache, unspecified Right leg pain Pain in limb Left arm pain Pain in limb Chronic pain Other chronic pain documented in this encounter Care Teams Provider Relations Representative Relationship Specialty Start Date End Date Jennie Resendiz MD [address] [place] [address] PCP - General 03/06/10 08/27/16 documented as of this encounter
--- OUTSIDE RECORDS SUMMARY | 2024-01-23 00:36 | XMS_ITS | Encounter Summary ---
[place] [address] Care Team Providers Care Hardwood Floor Installer Name Role Phone Jennie Resendiz MD Primary Care Provider [phone] Reason for Visit * Reason Comments Back Pain Encounter Details Date Type Department Care Team (Late st Contact Info) Description 09/05/2010 1:00 PM EDT Office [place] [id number] Darshan Garsia, PT [facility] [place] [address] Jennie Resendiz MD [address] [place] [address] Chronic low back pain (Primary Dx) Discharge Disposition: Home Social History Tobacco Use Types Packs/Day Years Used Date Smoking Tobacco: Never Assessed Sex and Gender Information Value Date Recorded Sex Assigned at Not on file Gender Identity Not on file Sexual Orientation Not on file documented as of this encounter Progress Notes * Darshan Garsia, PT - 09/05/2010 1:44 PM EDT Kallie Porter presents for physical therapy consult in follow up to her recent GAP Evaluation and Medical Clearance appointment. Please refer to those encounters for additional history and functional recovery goal details. The purpose of today's visit is to develop self care exercise strategies in preparation for more intensive rehabilitation. Continues to have the symptom pattern described previously. Saw PCP recently with concerns about swelling in both feet. This has been a problem for about 4 months. Also discussed left lateral elbow pain, has been problematic since June, related to an incident where her grabbed and twisted her arm. No new treatment plan has been made for either problem. Current exercise routine: None. Access to exercise equipment: None. UE Strength Right Left Shoulder abduction 4/5 3/5 Elbow flexion 5/5 3/5 Elbow extension 5/5 3/5 Wrist ulnar deviation 5/5 3/5 Finger abduction 3/5 2/5 LE Strength Right Left Hip flexion 3/5 4/5 Knee extension 3-/5 5/5 Dorsiflexion 2/5 3/5 Hallux extension 3/5 3/5 Plantarflexion 2/5 2/5 Cervical Spine AROM Flexion (0-60) 45 Extension (0-50) 25 Rot. Right (0-80) 70 Rot. Left (0-80) 60 Lat. Flex Right (0-45) 15 Lat. Flex Left (0-45) 15 Lumbar Spine AROM Flexion (0-90) 65 Extension (0-30) 5 Exercise testing: Small range lower trunk rotation hook-lying, slouch overcorrect sitting. Assessment: Kallie understood the exercise instructions given today and knows to discontinue anyspecific activity should it cause new loss of extremity sensation or strength. We discussed the concepts of functional anglican and agreed on strategies to move toward the personal functional recovery goals stated previously. Plan: Utilize the exercise strategies tested today to work toward 2 week goal of daily walking 20 minutes duration. Next session we will consider standing stretches as a progression. Beyond that, we will re-test treadmill endurance and lifting capacity. Length of visit: 60 minutes. documented in this encounter Plan of Treatment Upcoming Encounters Date Type Department Care Team (Late st Contact Info) Description 02/27/2024 2:45 PM EST TH Visit (TeleHealth) [place] [phone] Lashae Lorenzo MD [facility] [place] [address] documented as of this encounter Visit Diagnoses Diagnosis Chronic low back pain- Primary Lumbago documented in this encounter Care Teams Hardwood Floor Installer Relationship Specialty Start Date End Date Jennie Resendiz MD [address] [place] [address] PCP - General 03/06/10 08/27/16 documented as of this encounter
--- OUTSIDE RECORDS SUMMARY | 2024-01-23 00:36 | XMS_ITS | Encounter Summary ---
Author Organization [facility] [place] [address] Care Team Providers Care Tool Technician Name Role Phone Jennie Resendiz MD Primary Care Provider [phone] Encounter Details Date Type Department Care Team (Late st Contact Info) Description 12/04/2010 Orders [place] [address] Thony Graham MD [facility] [place] [address] Social History Tobacco Use Types Packs/Day Years Used Date Smoking Tobacco: Every Day Cigarettes 0.3 30 Alcohol Use Standard Drinks/Week Comments Not Asked 0 (1 standard drink = 0.6 oz pur e alcohol) Sex and Gender Information Value Date Recorded Sex Assigned at Not on file Gender Identity Not on file Sexual Orientation Not on file documented as of this encounter Plan of Treatment Upcoming Encounters Date Type Department Care Team (Late st Contact Info) Description 02/27/2024 2:45 PM EST TH Visit (TeleHealth) [place] [address] Lashae Lorenzo MD [facility] [place] [address] documented as of this encounter Procedures Procedure Name Priority Date/Time Associated Diagnosis Comments FILM LIBRARY STORAGE ONLY PAIN CLINIC C ARM Routine 12/04/2010 1:30 PM EDT documented in this encounter Results * FILM LIBRARY-STORAGE ONLY PAIN CLINIC C-ARM (12/04/2010 1:30 PM EDT) 12/04/2010 1:30 PM EDT Narrative RAD - 08/19/2013 12:05 PM EDT This is a non-reportable exam. Procedure Note Shaka Choi - 08/19/2013 This is a non-reportable exam. Thony Graham MD IMG FILM LIBRARY ORD ERABLES [facility] [address] [facility] [place] [address] documented in this encounter Visit Diagnoses Not on filedocumented in this encounter Care Teams Tool Technician Relationship Specialty Start Date End Date Jennie Resendiz MD [address] [place] [address] PCP - General 03/06/10 08/27/16 documented as of this encounter
--- OUTSIDE RECORDS SUMMARY | 2024-01-23 00:36 | XMS_ITS | Encounter Summary ---
Author Organization [facility] [place] [address] Care Team Providers Care Vessel Captain Name Role Phone Jennie Resendiz MD Primary Care Provider [phone] Encounter Details Date Type Department Care Team (Latest Contact Info) Description 10/09/2010 4:34 PM EDT - 10/09/2010 11:59 PM EDT Hospital [place] [id number] CLINIC, Romulo Kohler MD [facility] [place] [address] LBP (low back pain) Discharge Disposition: Home Social History Tobacco Use Types Packs/Day Years Used Date Smoking Tobacco: Every Day Cigarettes 0.5 30 Alcohol Use Standard Drinks/Week Comments Not Asked 0 (1 standard drink = 0.6 oz pur e alcohol) Sex and Gender Information Value Date Recorded Sex Assigned at Not on file Gender Identity Not on file Sexual Orientation Not on file documented as of this encounter Medications at Time of Discharge Medication Sig Dispensed Refills Start Date End Date FLUTICASONE/SALMETEROL (ADVAIR DISKUS INHL) Inhale 2 puffs into the lungs 2 times daily. 07/30/2010 01/24/2012 tiotropium (SPIRIVA) 18 mcg inhalation capsule Inhale [...] by mouth 2 times daily. 07/30/2010 10/16/2017 LACTASE (LACTAID ORAL) Take 1 tablet by mouth daily. 07/30/2010 01/24/2012 Vitamin E 400 unit Tab Take 800 Units by mouth daily. 07/30/2010 01/24/2012 albuterol (PROVENTIL HFA;VENTOLIN HFA) 90 mcg/Actuation inhaler Inhale 2 puffs into the lungs every 4 hours as needed. Use with spacer 10/17/2010 documented as of this encounter Miscellaneous Notes * Miscellaneous - Provider, Scanning - 10/30/2010 1:34 PM EDT documented in this encounter Plan of Treatment Upcoming Encounters Date Type Department Care Team (Late st Contact Info) Description 02/27/2024 2:45 PM EST TH Visit (TeleHealth) [place] [address] Lashae Lorenzo MD [facility] [place] [address] documented as of this encounter Procedures Procedure Name Priority Date/Time Associated Diagnosis Comments MRI LUMBAR SPINE WITHOUT CONTRAST Routine 10/09/2010 5:17 PM EDT LBP (low back pain) documented in this encounter Results * MRI lumbar spine without contrast (10/09/2010 5:17 PM EDT) Anatomical Region Laterality Modality L-spine Magnetic Resonan ce 10/09/2010 5:17 PM EDT Impressions 10/11/2010 3:05 PM EDT IMPRESSION: Mild facet hypertrophic changes at the lower lumbar levels. ??No significant central or foraminal stenosis, and no disc herniation. ?? Film and interpretation reviewed by the attending Narrative 10/11/2010 3:05 PM EDT MRI OF THE LUMBAR SPINE, WITHOUT CONTRAST, 10/09/10: ?? HISTORY: ??Low back pain and right lower extremity radicular symptoms. ?? COMPARISON: ??None. ?? TECHNIQUE: Axial and sagittal MR images of the lumbar spine were acquired without contrast enhancement. ?? FINDINGS: ??There are five lumbar-type vertebral bodies, in normal alignment. ?? Vertebral body height and marrow signal are normal. ??The disc spaces are preserved. ??There is no significant disc bulge or focal disc herniation. ??Mild facet hypertrophic changes are present at L3-L4, L4-L5, and L5-S1, without significant central or foraminal stenosis. ?? The tip of the conus lies at the superior aspect of L1. ??No abnormal signal in the conus or lumbar nerve roots. Procedure Note Kirill Dinh MD - 10/11/2010 MRI OF THE LUMBAR SPINE, WITHOUT CONTRAST, 10/09/10: HISTORY: Low back pain and right lower extremity radicular symptoms. COMPARISON: None. TECHNIQUE: Axial and sagittal MR images of the lumbar spine were acquired without contrast enhancement. FINDINGS: There are five lumbar-type vertebral bodies, in normalalignment. Vertebral body height and marrow signal are normal. The disc spaces are preserved. There is no significant disc bulge or focal disc herniation.Mild facet hypertrophic changes are present at L3-L4, L4-L5, and L5-S1, without significant central or foraminal stenosis. The tip of the conus lies at the superior aspect of L1. No abnormalsignal in the conus or lumbar nerve roots. IMPRESSION IMPRESSION: Mild facet hypertrophic changes at the lower lumbar levels. Nosignificant central or foraminal stenosis, and no disc herniation. Film and interpretation reviewed by the attending Romulo yWman MD [facility] [place] ORDERABLE S documented in this encounter Visit Diagnoses Diagnosis LBP (low back pain) Lumbago documented in this encounter Care Teams Vessel Captain Relationship Specialty Start Date End Date Jennie Resendiz MD [facility] [address] [place] [address] PCP - General 03/06/10 08/27/16 documented as of this encounter
--- OUTSIDE RECORDS SUMMARY | 2024-01-23 00:36 | XMS_ITS | Referral Summary ---
Author Organization [facility] Address [address] [place] [address] Care Team Providers Care Head Of Ethics And Compliance Name Role Phone Grant Lindsey MD Primary Care Provider [phone] Allergies Active Allergy Reactions Criticality Noted Date [...] (Lactase) 06/25/2018 Neomycin Nausea Only,Rash Medium 06/14/2019 Pnowexxp-Jfhhhbqticw-Lq lymyxnb 06/25/2018 Nausea and rash Polymyxin B [...] Problems Problem Noted Date Diagnosed Date Aneurysm ([facility]) 01/05/2020 Headache 12/25/2019 Cerebral aneurysm, nonruptured 12/02/2019 Overview: Added automatically from request for surgery [id number] Social History Tobacco Use Types Packs/Day Years [...] 13:11 EDT Sexual Orientation Not on file Last Filed [...] Body Mass Index 36.78 10/08/2021 1040 EDT Functional Status Functional Status Response Date of Assess ment Are you deaf or do you have serious difficulty h earing? No 02/03/2020 Are you blind or do you have serious difficulty seeing, even when wearing glasses? No 02/03/2020 Do you have serious difficul ty walking or climbing stairs? (5 years old or older) Yes 02/03/2020 Do you have difficulty dress ing or bathing? (5 years old or older) No 02/03/2020 Because of a physical, menta l, or emotional condition, do you have difficulty doing errands alone such as visiting a doctor's office or shopping? (15 years old or older) Yes 02/03/2020 Cognitive Status Response Date of Assessm ent Because of a physical, menta l, or emotional condition, do you have serious difficulty concentrating, remembering, or making decisions? (5 years old or older) No 02/03/2020 Plan of Treatment Not on file Medical Devices Implanted Type Area Spread Cutter Device Identifier Shelf Expiration Date Model / Serial / Lot Cover Carson Hole Cranial Low Profile W/Tab 0.4x14mm [employer] [id number] - [id number] Implanted:Qty : 2 on 01/05/2020 by Alfonzo Cobb MD at [facility] Plate Implant Right: Brain MARIZA JOSEBINGER [id number] / / Plate Bone Cmf Mdface Lp 2h 0.4x12mm [id number] - [id number] Implanted:Qty : 1 on 01/05/2020 by Alfonzo Cobb MD at [facility] Plate Implant Right: Brain MARIZA JOSEBINGER [id number] / / Plate Bone Cmf Skull Base Lp 0.3p41q10un [employer] [id number] - [id number] Implanted:Qty : 1 on 01/05/2020 by Alfonzo Cobb MD at [facility] Plate Implant Right: Brain MARIZA JOSEBINGER [id number] / / Screw Bone Cmf Mandib St 1.5x4mm [employer] [id number] - [id number] Implanted:Qty : 11 on 01/05/2020 by Alfonzo Cobb MD at [facility] Screw Implant Right: Brain MARIZA JOSEBINGER [id number] / / Duragen 5 X 5cm [id number] - [id number] Implanted:Qty : 1 on 01/05/2020 by Alfonzo Cobb MD at [facility] Tissue Right: Brain [employer] CHEVY 05/14/2022 [id number] / / [id number] Tii Mini 7.5 Curved 7mm [id number] Safe 1.5t Only Implanted:Qty : 1 on 01/05/2020 by Alfonzo Cobb MD at [facility] Right: Brain [employer] [id number] / / Description:MRI safe to 1.5T ONLY per [email or web address]. MGB 02/03/2020. Nursing Professor, Kallie A Personal/Famil y Self [address] [address] Nursing Professor, Kallie A Personal/Famil y Self [address] [address] Nursing Professor, Kallie A Personal/Famil y Self [address] [address] Nursing Professor Kallie A Personal/Famil y Self [address] [address] Nursing Professor, Kallie A Personal/Famil y Self [address] [address] Nursing Professor, Kallie A Personal/Famil y Self [address] [address] Nursing Professor Kallie A Personal/Famil y Self [address] [place] [address] Advance Directives For more information, please contact: [phone] Documents on File Type Date Recorded 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 Not Discusse d Care Teams Head Of Ethics And Compliance Relationship Specialty Start Date End Date Grant Lindsey [place] [address] [place] [address] PCP - General 09/09/19
--- OUTSIDE RECORDS SUMMARY | 2024-01-23 00:36 | XMS_ITS | Encounter Summary ---
Author Organization [facility] [place] [address] Care Team Providers Care Sheriffs Detective Name Role Phone Jennie Resendiz MD Primary Care Provider [phone] Encounter Details Date Type Department Care Team (Late st Contact Info) Description 09/27/2010 [facility] [place] [id number] Dorinda Lira, RADHA [facility] [place] [address] Social History Tobacco Use Types Packs/Day Years [...] EST TH Visit (TeleHealth) [place] [phone] Lashae Lorenzo MD [facility] [place] [address] documented as of this encounter Visit Diagnoses Not on filedocumented in this encounter Care Teams Sheriffs Detective Relationship Specialty Start Date End Date Jennie Resendiz MD [address] [place] [address] PCP - General 03/06/10 08/27/16 documented as of this encounter
--- OUTSIDE RECORDS SUMMARY | 2024-01-23 00:36 | XMS_ITS | Encounter Summary ---
Author Organization [facility] Address [address] [place] [address] Care Team Providers Care Client Analyst Name Role Phone Grant Lindsey MD Primary Care Provider [phone] Reason for Visit * (Routine/Next Available) - Receiving Office to Obtain Authorization Specialty Diagnoses / Procedures Referred By Nicol sparks Referred To Contact Procedures CT OUTSIDE IMAGES NEURO Unknown, ProviderMD Referral ID Status Reason Start Date Expiration Date Visits Requested Visits Authorized [id number] Receiving Office to Obtain Authorization 07/25/2021 1 1 Encounter Details Date Type Department Care Team (Latest Contact Info) Description 07/25/2021 11:16 EDT - 07/25/2021 23:59 EDT Hospital Encounter [facility] Secondary Reads [place] Discharge Disposition: Home or Self Care Social History Tobacco Use Types Packs/Day Years [...] 13:11 EDT Sexual Orientation Not on file documented as of this encounter Functional Status Functional Status Response Date of [...] (5 years old or older) No 02/03/2020 documented as of this encounter Medications at Time of Discharge Medication Sig Dispensed Refills Start Date End Date acetaminophen (TYLENOL) 325 mg tablet Take 2 Tabs by mouth every 4 hours as needed for Pain. 01/07/2020 acetaminophen (TYLENOL) 325 mg tablet Take 2 Tabs by mouth every 4 hours as needed for Pain. 12/26/2019 ALBUTEROL INHL Inhale 1 Puff as directed as needed. carvedilol (COREG) 6.25 mg tablet Take 6.25 mg by mouth 2 times daily. CHANTIX STARTING MONTH BOX 0.5 mg (11)- 1 mg (42) tablet TAKE BY MOUTH DIRECTED ON PACKAGE. 12/09/2019 cyanocobalamin (VITAMIN B-12) 500 mcg tablet Take 1,000 mcg by mouth daily. docusate sodium (COLACE) 100 mg capsule Take 1 Cap by mouth 2 times daily. 01/07/2020 fluticasone propion/salmeterol (ADVAIR DISKUS INHALATION) Inhale 2 Puffs as directed 2 times daily. furosemide (LASIX) 20 mg tablet Take 20 mg by mouth daily. 11/21/2019 gabapentin (NEURONTIN) 800 mg tablet Take 800 mg by mouth 3 times daily. HYDROXYZINE HCL ORAL Take 25 mg by mouth as needed. insulin aspart U-100 (NOVOLOG FLEXPEN) 100 unit/mL injectable penIndications:type 2 diabetes mellitus,increase in units depending on sugar reading Inject 5 Units into the skin 3 times daily with meals. levothyroxine (SYNTHROID) 50 mcg tablet Take 50 mcg by mouth daily. lisinopriL (PRINIVIL) 10 mg tablet TAKE ONE TABLET BY MOUTH EVERY DAY FOR FOR BLOOD PRESSURE 11/21/2019 loratadine (CLARITIN) 10 mg tablet Take 10 mg by mouth daily. metFORMIN (GLUCOPHAGE) 500 mg tablet Take 1,000 mg by mouth 2 times daily. methocarbamoL (ROBAXIN) 750 mg tablet Take 1 Tab by mouth 4 times daily. 30 Tab 01/07/2020 mirtazapine (REMERON) 15 mg tablet Take 15 mg by mouth at bedtime. 10/27/2019 omeprazole (PRILOSEC) 20 mg capsule Take 20 mg by mouth daily. oxyCODONE (ROXICODONE) 5 mg immediate release tablet Take 1 Tab by mouth every 4 hours as needed for Pain (discomfort). Daily Max: 30 mg 10 Tab 01/07/2020 pantoprazole (PROTONIX) 40 mg tablet Take 40 mg by mouth 2 times daily. risperiDONE (RISPERDAL) 0.5 mg tablet Take 0.5 mg by mouth at bedtime. 11/30/2019 senna (SENOKOT) 8.6 mg tablet Take 1 Tab by mouth 2 times daily. 01/07/2020 sertraline (ZOLOFT) 50 mg tablet Take 50 mg by mouth daily. 12/04/2019 documented as of this encounter Discharge Disposition Disposition Code Departure Means Destination Home or Self Care documented in this encounter Plan of Treatment Not on file documented as of this encounter Procedures Procedure Name Priority Date/Time Associated Diagnosis Comments CT OUTSIDE IMAGES NEURO Routine 07/25/2021 11:16 EDT documented in this encounter Results * CT OUTSIDE IMAGES NEURO (07/25/2021 11:16 EDT) Narrative 07/25/2021 11:16 EDT This is a non-reportable exam. Provider Unknown MD [facility] OTHER IMAGING OR DERABLES documented in this encounter Visit Diagnoses Not on filedocumented in this encounter Care Teams Client Analyst Relationship Specialty Start Date End Date Grant Lindsey MD [address] [place] [address] PCP - General 09/09/19 documented as of this encounter
--- OUTSIDE RECORDS SUMMARY | 2024-01-23 00:36 | XMS_ITS | Encounter Summary ---
Author Organization [facility] Address [address] [place] [address] Care Team Providers Care Program Advocate Name Role Phone Grant Lindsey MD Primary Care Provider [phone] Encounter Details Date Type Department Care Team (Late st Contact Info) Description 07/09/2023 Lab Requisition [facility] Pathology & Laboratory Medicine - [facility] [address] [place] [address] Outr Resulting Lab, Provider Social History Tobacco Use Types Packs/Day Years [...] No 02/03/2020 documented as of this encounter Plan of Treatment Not on file documented as of this encounter Procedures Procedure Name Priority Date/Time Associated Diagnosis Comments LYME AB Routine 07/08/2023 14:29 EDT documented in this encounter Results * LYME AB (07/08/2023 14:29 EDT) Lyme Ab Negative Negative 07/10/2023 9:44 EDT [facility] Blood VENOUS BLOOD / Unknown 07/08/2023 14:29 EDT 07/09/2023 16:20 EDT Provider Outr Resulting Lab IMMUNOLOGY A ND SEROLOGY ORDERABLES [facility] [address] [place] [address] documented in this encounter Visit Diagnoses Not on filedocumented in this encounter Care Teams Program Advocate Relationship Specialty Start Date End Date Grant Lindsey MD [address] [place], [place] [id number] PCP - General 09/09/19 documented as of this encounter
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
--- OUTSIDE RECORDS SUMMARY | 2024-01-23 00:36 | XMS_ITS | Encounter Summary ---
Author Organization [facility] [place] [address] Care Team Providers Care Contract Project Manager Name Role Phone Jennie Resendiz MD Primary Care Provider [phone] Reason for Visit * Reason Comments GI Problem Encounter Details Date Type Department Care Team (Late st Contact Info) Description 01/24/2012 1:00 PM EDT Office [place] [address] Leisa Woodard APRN [facility] [place] [address] Elevated liver function tests (Primary Dx); Hematuria Discharge Disposition: Home Social History Tobacco Use Types Packs/Day Years Used Date Smoking Tobacco: Every Day Cigarettes 0.3 30 Tobacco Cessation:Ready to Q uit: Yes Alcohol Use Standard Drinks/Week Comments No 0 [...] Sign Reading Time Taken Comments Blood Pressure 123/64 01/24/2012 1:06 PM EDT Pulse 79 01/24/2012 1:06 PM EDT Temperature - - Respiratory Rate - - Oxygen Saturation - - Inhaled Oxygen Concentration - - Weight 108.4 kg (239 lb) 01/24/2012 1:06 PM EDT Height 165.1 cm (5' 5) 01/24/2012 1:06 PM EDT Body Mass Index 39.77 01/24/2012 1:06 PM EDT documented in this encounter Progress Notes * Leisa Woodard, INSTRUCTOR WEAVING - 01/24/2012 4:48 PM EDT Subjective: Patient ID: Kallie Smart is a 51 y.o. female. HPI Ms. Smart is a 51 year old white female seen today at [facility] in consultation for hepatosplenomegaly on [...] for patchy fatty infiltration of the liver. Past Medical History Diagnosis Date ??? Lower extremity pain Right sided ??? SOCORRO (obstructive sleep apnea) ??? Asthma ??? Depression ??? Elevated liver function tests ??? Constipation Past Surgical History Procedure Date ??? Knee arthroscopy 2002 left ??? Hysterectomy 1979 ??? Hand surgery 1967 left thumb ??? Cholecystectomy 2009 fluticasone-salmeterol (ADVAIR) 500-50 mcg/dose diskus inhaler; amitriptyline (ELAVIL) 10 mg tablet; risperidone (RISPERDAL) 1 mg tablet; citalopram (CELEXA) 10 mg tablet; tiotropium (SPIRIVA) 18 mcginhalation capsule; Levalbuterol Tartrate (XOPENEX HFA) 45 mcg/Actuation inhaler; esomeprazole (NEXIUM) 40 mg capsule; gabapentin (NEURONTIN) 300 mg capsule; polyethylene glycol-electrolytes (PEG 3350-ELECTROLYTES) 420 g solution DISCONTD: FLUTICASONE/SALMETEROL (ADVAIR DISKUS INHL); DISCONTD: LACTASE (LACTAID ORAL); DISCONTD: Vitamin E 400 unit Tab Allergies Allergen Reactions ??? Bacitracin Nausea Only ??? Neomycin Sulfate Nausea Only ??? Polymyxin B Nausea Only ??? Gramicidin D Nausea Only ??? Amoxicillin-pot Clavulanate Nausea Only ??? Aspirin Nausea And Vomiting ??? Lactose Other (See Comments) GI Upset Family History Problem Relation Age of Onset ??? Heart Failure Mother ??? High Cholesterol Mother ??? Hypertension Mother ??? Diabetes Mother ??? Hypertension Father ??? High Cholesterol Brother ??? Hypertension Brother ??? Cancer Paternal Grandfather ??? Diabetes Maternal Grandmother ??? Cancer Maternal Grandmother History Social History ??? Marital Status: Spouse Name: N/A Number of Children: N/A ??? Years of Education: N/A Occupational History ??? Not on file. Social History Main Topics ??? Smoking status: Current Everyday Smoker -- 0.3 packs/day for 30 years Types: Cigarettes ??? Smokeless tobacco: Not on file ??? Alcohol Use: No No ETOH x 3 months; Hx of 1-2 beers/day during week and 6-8 beers on weekend ??? Drug Use: No No hx of IV or intranasal drug use ??? Sexually Active: Not on file Other Topics Concern ??? Service No ??? Blood Transfusions No Social History Narrative Lives with middle daughter but she is supposed to be moving out next week. Disabled. 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 Last time worked was 2005.Has multiple tattoos which she did herself age 24. Did not share needles or ink.Ears pierced by self. Review of Systems Constitutional: Negative for fever, [...] erythema (Palmar erythema and spider angioma on chest). Psychiatric: She has a normal mood and affect. Her behavior is normal. Assessment and Plan: 1. Ms. Smart is a 51 year old white female seen today in consultation for hepatosplenomegaly and elevated LFT's. I have concerns that she may have cirrhosis based on lab and physical exam findings. Today will obtain labs to evaluate for other potential causes of elevated liver tests. Will proceed with liver biopsy. If she does in fact have cirrhosis she will require an EGD for esophageal varicesscreening, as well as bi-annual HCC screening. She has risk factors for MONA and HARDEN. She has been sober for 3 month; I have encouraged continued abstinence. She admits that she is having cravings. Ihave advised that she seek counseling either at AA meetings or one-on-one therapist. For the HARDEN, I have advised slow sustained weight loss through diet and exercise. I recommend aggressive control of lipids but will defer to pt's PCP for management. 2. Constipation. I have advised that she increase the Miralax to one capful TID. Encouraged increased fruits and vegetables. Increased water intake. Regular, daily physical activity. She has not had a screening colonoscopy but will arrange. All of the patients questions were answered at the conclusion of the visit. She verbalized understanding and agreement to the plan of care. I will see her back after all labs and procedures have beencompleted. documented in this encounter Plan of Treatment Upcoming Encounters Date Type Department Care Team (Late st Contact Info) Description 02/27/2024 2:45 PM EST TH Visit (TeleHealth) [place] [address] Lashae Lorenzo MD [facility] [place] [address] documented as of this encounter Procedures Procedure Name Priority Date/Time Associated Diagnosis Comments URINALYSIS DIPSTICK Routine 01/24/2012 3 :17 PM EDT Hematuria URINE CULTURE Routine 01/24/2012 3:17 PM EDT Hematuria HFE MUT Routine 01/24/2012 3:14 PM EDT Elevated liver function tests .A1AT GENOTYPE Routine 01/24/2012 3:14 PM EDT Elevated liver function tests A1AT GENOTYPE PROFILE Routine 01/24/2012 3:14 PM EDT Elevated liver function tests HFE MUTATION Routine 01/24/2012 3:14 PM EDT Elevated liver function tests DNA ANTIBODY (DOUBLE-STRANDED) Routine 01/24/2012 3:14 PM EDT DIFFERENTIAL, AUTOMATED Routine 01/24/2012 3:14 PM EDT IRON AND TIBC Routine 01/24/2012 3:14 PM EDT Elevated liver function tests [id number] Routine 01/24/2012 3 :14 PM EDT Elevated liver function tests MITOCHONDRIAL ANTIBODY, M2 Routine 01/24/2012 3:14 PM EDT Elevated liver function tests TISSUE TRANSGLUTAMINASE, IGA Routine 01/24/2012 3:14 PM EDT Elevated liver function tests CERULOPLASMIN Routine 01/24/2012 3:14 PM EDT Elevated liver function tests AFP TUMOR MARKER Routine 01/24/2012 3:14 PM EDT Elevated liver function tests SMOOTH MUSCLE ANTIBODY Routine 2 3:14 PM EDT Elevated liver function tests PROTHROMBIN TIME Routine 01/24/2012 3:14 PM EDT Elevated liver function tests CBC (WITH DIFF) Routine 01/24/2012 3:14 PM EDT Elevated liver function tests RUTHY ANTIBODY SCREEN Routine 01/24/2012 3 :14 PM EDT Elevated liver function tests TSH Routine 01/24/2012 3:14 PM EDT Elevated liver function tests HEMOGLOBIN A1C Routine 01/24/2012 3:14 PM EDT Elevated liver function tests IGA Routine 01/24/2012 3:14 PM EDT Elevated liver function tests IGM Routine 01/24/2012 3:14 PM EDT Elevated liver function tests IGG Routine 01/24/2012 3:14 PM EDT Elevated liver function tests FERRITIN Routine 01/24/2012 3:14 PM EDT Elevated liver function tests COMPREHENSIVE METABOLIC PANEL Routine 01/24/2012 3:14 PM EDT Elevated liver function tests COLONOSCOPY Routine 01/24/2012 2:00 PM EDT Elevated liver function tests documented in this encounter Results * IR all biopsy procedures (01/28/2012 8:12 AM EDT) Anatomical Region Laterality Modality X-Ray Angiograph y 01/28/2012 8:12 AM EDT Impressions 01/30/2012 9:11 AM EDT Impression: ?? Technically successful biopsy. ? ; ?? {CR} ? ; ?? {CR} ? ; ?? {CR} ? ; ?? {CR} ? ; ?? {CR} ?? Narrative 01/30/2012 9:11 AM EDT ?VIR ?? PROCEDURE NOTE: US-guided liver biopsy ?ACC#: ?? [id number] ? Indication: ?? Hepatosplenomegaly and elevated LFTs with ETOH history. ? Technique: ?? After discussing risks (including infection and hemorrhage), and benefits, ?? patient consented to the procedure. Due to the painful nature of the procedure, ?? split doses of fentanyl and Versed were administered by the IR nurse during ?? continuous monitoring of pulse, blood pressure and oxygen saturation. ?Liver ?? was localized with US. After sterile preparation of the overlying skin, 1% ?? lidocaine SQ was administered for anesthesia, and a 16 ga needle guide was ?? advanced coaxially under CT guidance into the right lobe. The 18 ga biopsy ?? gun was advanced coaxially and specimen obtained x 4 and submitted to Pathology. ?? Needle was removed and hemostasis obtained by manual compression. Patient ?? tolerated the procedure well. There were no immediate complications. ?Findings: ?? Specimen obtained from right lobe liver. ? Procedure Note Darshan Montes MD - 01/30/2012 VIR PROCEDURE NOTE: US-guided liver biopsy ACC#: [id number] Indication: Hepatosplenomegaly and elevated LFTs with ETOH history. Technique: After discussing risks (including infection and hemorrhage),and benefits, patient consented to the procedure. Due to the painful natureof the procedure, split doses of fentanyl and Versed were administered bythe IR nurse during continuous monitoring of pulse, blood pressure and oxygen saturation. Liver was localized with US. After sterile preparation ofthe overlying skin, 1% lidocaine SQ was administered for anesthesia, and a16 ga needle guide was advanced coaxially under CT guidance into the rightlobe. The 18 ga biopsy gun was advanced coaxially and specimen obtained x 4and submitted to Pathology. Needle was removed and hemostasis obtained bymanual compression. Patient tolerated the procedure well. There were noimmediate complications. Findings: Specimen obtained from right lobe liver. IMPRESSION Impression: Technically successful biopsy. ; {CR} ; {CR} ; {CR} ; {CR} ; {CR} Zeferino Paul MD [facility] IR ORDERABLES * Urine culture Clean Catch Urine (01/24/2012 3:17 PM EDT) Urine Culture ? Patient Name: KALLIE SMART ?Ordered By: ZEFERINO PAUL ? MR#: [id number] ?LOC: ??4L ? /Sex: ??1960 (51 years), ? Female ? PROCEDURE: Urine Culture ?SOURCE: U CC ? COLLECTED: 01/24/2012 15:17 ? STARTED: 01/24/2012 15:39 ? FINAL REPORT ? Final Report ? Verified: 012 14:54 ? 10,000-49,000 cfu/ml mixed mucosal shanna ? Note: Multiple bacterial morphotypes present. Suggest appropriate ? recollection with timely delivery to ? the laboratory, if clinically significant. ? CERNER MILLENNIUM Urine specimen obtained by clean catch procedure (specimen) 01/24/2012 3:17 PM EDT 01/24/2012 3:39 PM EDT Narrative Resulting Agency Comment Spec In Lab Zeferino Paul MD MICROBIOLOGY - GENE RAL ORDERABLES Performing Organization Address City/[facility]/ZIP Co de Phone Number CERNER MILLENNIUM * (ABNORMAL) Urinalysis without microscopic (01/24/2012 3:17 PM EDT) Glucose, Urine Dipstick Negative Negative mg/dL CERNER MILLENNIUM Protein, Urine Dipstick Negative mg/dL CERNER MILLENNIUM Bilirubin, Urine Dipstick Negative Negative mg/dL CERNER MILLENNIUM Urobilinogen, Urine Dipstick Normal mg/dL CERNER MILLENNIUM pH, Urn (dipstick) 5.5 5.0 - 8.0 CERNER MILLENNIUM Blood, Urine Dipstick Negative mg/dL CERNER MILLENNIUM Ketone, Urine Dipstick Negative mg/dL CERNER MILLENNIUM Nitrite, Urine Dipstick Negative CERNER MILLENNIUM Leukocytes, Urine Dipstick Trace(A) Neg CERNER MILLENNIUM Appearance, Urine Dipstick Hazy(A) Clear CERNER MILLENNIUM Specific [place] Urine Automated 1.013 1.002 - 1.030 CERNER MILLENNIUM Color, Urine Dipstick Yellow Yellow CERNER MILLENNIUM Urine specimen (specimen) 01/24/2012 3:17 PM EDT 01/24/2012 3:22 PM EDT Narrative Resulting Agency Comment Spec In Lab Zeferino Paul MD URINE ORDERABLES LILLIE MIJARESIUM * DNA ANTIBODY (DOUBLE-STRANDED) (01/24/2012 3:14 PM EDT) DNA Ab (DS) Neg Neg CERNER MILLENNIUM Blood specimen (specimen) 01/24/2012 3:14 PM EDT 01/27/2012 8:22 AM EDT Narrative Resulting Agency Comment Spec In Lab Zeferino Paul MD LAB SEND OUT ORDERA BLES CERNER MILLENNIUM * DIFFERENTIAL, AUTOMATED (01/24/2012 3:14 PM EDT) Neutrophil % 53.4 34.0 - 71.0 % CERNER MILLENNIUM Neutrophil Absolute 3.27 1.50 - 6.30 x10(3)/mcL CERNER MILLENNIUM Lymph % 37.8 19.0 - 53.0 % CERNER MILLENNIUM Lymphocytes Abs 2.3 1.0 - 3.6 x10(3)/mcL CERNER MILLENNIUM Monocyte % 4.1 4.0 - 13.0 % CERNER MILLENNIUM Monocyte Abs 0.2 0.2 - 1.0 x10(3)/mcL CERNER MILLENNIUM Eos % 4.2 0.0 - 7.0 % CERNER MILLENNIUM Eosinophils Abs 0.3 0.0 - 0.5 x10(3)/mcL CERNER MILLENNIUM Basophil [...] 0.05 x10(3)/mcL CERNER MILLENNIUM Blood specimen (specimen) 01/24/2012 3:14 PM EDT 01/24/2012 3:22 PM EDT Zeferino Paul MD HEMATOLOGY ORDERABL ES CERRYLIE ROBERTSONENNIUM * .A1AT GENOTYPE (01/24/2012 3:14 PM EDT) A1AT Genotype A1AT (SERPINA1) GENOTYPING RESULTS: S ALLELE: NOT DETECTED Z ALLELE: NOT DETECTED INTERPRETATION: The absence of both the S and Z alleles in this patient along with a separate test showing normal levels of A1AT protein (167 mg/dL) in this patient s serum suggest this patient does not have an A1AT deficiency. Although the S and Z alleles were not detected by this test, the presence of other less common A1AT variants cannot be excluded. ??These results should be interpreted based on the complete clinical presentation which may warrant additional testing and/or a genetic consultation. METHOD: Two regions of interest in the serpin peptidase inhibitor, clade A (alpha-1 antiproteinase, antitrypsin), member 1 gene (SERPINA1), commonly alpha-1 anti-trypsin or A1AT) that are known to contain variant alleles resulting in the S phenotype ([id number]:c.863 A>T; [id number]) and the Z phenotype (c. 1096G>A; [id number]) are amplified and genotyped by two separate PCR assays each containing two primers for amplification and two probes for detection the normal and variant alleles. ??Genomic DNA used in this testing was isolated from peripheral blood. LIMITATIONS AND DISCLAIMERS: ??Although unlikely, rare variants or polymorphisms (known or unknown) have the potential to interfere with the performance of this test, producing false negative or false positive results. ??When genotyping results are not consistent with other clinical observations or test results, additional testing should be considered. This test was developed and its performance characteristics determined by the Molecular Pathology Laboratory at [facility]. This test is used for clinical purposes and should not be considered as investigational or for research purposes. ??It has not been cleared or approved by the U.S. Food and Drug Administration. However, as a [employer]IA licensed laboratory, our facility is approved for such high-complexity clinical testing. [facility] Comment: [VERIFIED DATE]01.31.12 Verified By:Marybel Maier MD Pathologist (Electronic Signature) Blood specimen (specimen) 01/24/2012 3:14 PM EDT 01/27/2012 8:52 AM EDT Narrative Resulting Agency Comment Spec In Lab Zeferino Paul MD CHEMISTRY ORDERABLE S LILLIE HUIZAR * HFE MUT (01/24/2012 3:14 PM EDT) HFE Mutation RESULTS: ??NEGATIVE FOR THE C282Y HFE ??MUTATION; HETEROZYGOUS POSITIVE FOR THE H63D HFE ??MUTATION. H63D is a common mutation and is present in the heterozygous state in approximately one third of the normal population. ??Only when it has been associated with C282Y in a compound heterozygous state has it been clearly associated with hemochromatosis. ??Therefore, this study does not provide evidence for the diagnosis of hemochromatosis in this patient, but neither does it rule out this disease (see COMMENT). COMMENT: In the study by Marleny et al. (A novel MHC class I-like gene in patients with hereditary haemochromatosis. ??Nature Genetics 1996;13: 399-408), 83% of unrelated individuals with hereditary hemochromatosis (HH) were homozygous for the C282Y mutation, ??5% were C282Y/H63D compound heterozygotes, and less than 1% ??were heterozygous for the C282Y mutation only. ??Other studies have confirmed the high incidence of these mutations in individuals with HH. Neither of these HFE ??mutations was detected in the remaining 12% of individuals with hemochromatosis. This test provides information on the genetic basis for iron overload by detecting two missense mutations, C282Y and H63D, that occur commonly in Type I hereditary hemochromatosis (HFe). The gene frequency for C282Y and H63D is about 5 to 10%. Homozygosity, double heterozygosity, or heterozygosity for these mutations account for about 70% to 80% of cases of classical HFe. These mutations cause graded severity of iron accumulation with homozygosity for C282Y being the strongest and heterozygosity for H63D the weakest. Other mutations, non-genetic iron excess and various pathophysiologic conditions interact with genotype to alter clinical disease phenotype. Disease-producing iron overload can occur with any genotype depending on the level and duration of iron exposure, and interacting variables (Yoan Colindres. Genetic mechanisms and modifying factors in hereditary hemochromatosis. Nhung Rev Gastroenterol Hepatol 2010;7:50-58). Genetic analysis assists diagnosis when expression of a clinical phenotype possibly due to excess iron is incomplete, for predicting future disease risk (e.g., in family members) or for explaining elevated levels of ferritin or % transferrin saturation. Referral is suggested for detailed clinico-pathologic correlation. METHOD: The regions of interest in the HFE gene (C282Y and H63D) are analyzed using The [employer] pre-developed assays for SNP detection on an LAI Prism 7500 Sequence Detection System. DNA is isolated from peripheral blood and analyzed using primers and probes specific to the wild type and mutant sequences of each gene sequence of interest (C282Y and H63D). This assay was performed using analyte specific reagents which are regulated by the U.S. Food and Drug Administration. This test was developed and its performance characteristics determined by the Molecular Pathology Laboratory at [facility]. This test is used for clinical purposes and should not be considered as investigational or for research purposes. ??It has not been cleared or approved by the U.S. Food and Drug Administration. However, as a [employer] licensed laboratory, our facility is approved for such high complexity clinical testing. [facility] Comment: [VERIFIED DATE]01.31.12 Verified By:Darrion STOCKTON, Marybel Keller Pathologist (Electronic Signature) Blood specimen (specimen) 01/24/2012 3:14 PM EDT 01/27/2012 8:52 AM EDT Narrative Resulting Agency Comment Spec In Lab Zeferino Paul MD HEMATOLOGY ORDERABL ES [facility] * Hemoglobin A1c (01/24/2012 3:14 PM EDT) Hemoglobin A1c 5.7 4.3 - 6.1 % [facility] Estimated Average Glucose 117 mg/dL [facility] Comment: eAG equivalents for HbA1c percentages: HbA1c(%) ?eAG(mg/dL) 6.0 ?126 6.5 ?140 7.0 ?154 7.5 ?169 8.0 ?183 8.5 ?197 9.0 ?212 9.5 ?226 10.0 ? 240 Limitations: The eAG calculation has not been validated on women, individuals below 18 years old and above 70 years old, and individuals with hemoglobinopathies. Additional resources are available on the ADA website: ??http://professional.diabetes.org/glucosecalculator.aspx Reference: Rg ADDISON, Alva J, Saran R, et al. ??Translating the A1C assay into estimated average glucose values. ??Diabetes Care 2008:31(8):5809-8195. Blood specimen (specimen) 01/24/2012 3:14 PM EDT 01/24/2012 3:22 PM EDT Narrative Resulting Agency Comment Spec In Lab Zeferino Paul MD CHEMISTRY ORDERABLE S Performing Organization Address [facility] de Phone Number [facility] * Tissue transglutaminase, IgA (01/24/2012 3:14 PM EDT) Pathologist [facility] TTG IgA Ab <4.0 <=3.9 u/ml [facility] Comment: Result Interpretation: Negative: ?<4 U/mL Weak Positive: ??4-10 U/mL Positive: ?>10 U/mL Blood specimen (specimen) 01/24/2012 3:14 PM EDT 01/27/2012 8:29 AM EDT Narrative Resulting Agency Comment Spec In Lab Zeferino Paul MD IMMUNOLOGY ORDERABL ES Performing Organization Address [facility] Co de Phone Number [facility] * Ceruloplasmin (01/24/2012 3:14 PM EDT) Ceruloplasmin 31.4 16.0 - 45.0 mg/dL [facility]ILL[facility]UM Comment: Test Performed by: [facility] [address] [address] Color Tester: Gisselle Cortez, Ph.D. Blood specimen (specimen) 01/24/2012 3:14 PM EDT 01/24/2012 4:13 PM EDT Narrative Resulting Agency Comment Spec In Lab Zeferino Paul MD CHEMISTRY ORDERABLE S Performing Organization Address [facility] Co de Phone Number CERNER AILYNENNIUM * A1AT Serum Concentration (01/24/2012 3:14 PM EDT) A1AT 167 100 - 190 mg/dL [facility] Comment: Test Performed by: [place] [address] Color Tester: Gisselle Cortez, Ph.D. Blood specimen (specimen) 01/24/2012 3:14 PM EDT 01/24/2012 4:13 PM EDT Narrative Resulting Agency Comment Spec In Lab Zeferino Paul MD CHEMISTRY ORDERABLE S Performing Organization Address [facility] Co de Phone Number CERNER MILLENNIUM * Iron and TIBC (01/24/2012 3:14 PM EDT) Iron 72 30 - 150 mcg/dL CERNER MILLENNIUM TIBC 274 250 - 450 mcg/dL [facility] MILLENNIUM Iron Saturation 26 20 - 50 % CERN ER MILLENNIUM Blood specimen (specimen) 01/24/2012 3:14 PM EDT 01/24/2012 3:22 PM EDT Narrative Resulting Agency Comment Spec In Lab Zeferino Paul MD CHEMISTRY ORDERABLE S Performing Organization Address [facility] Co de Phone Number CERNER MILLENNIUM * (ABNORMAL) Ferritin (01/24/2012 3:14 PM EDT) Ferritin 428(H) 30 - 400 ng/mL [facility] MILLENNIUM Comment: Pediatric reference ranges not verified at [facility], interpret with caution. Reference ranges for females greater than 50 years of age approach values for men, i.e., 30-400 ng/mL. Blood specimen (specimen) 01/24/2012 3:14 PM EDT 01/24/2012 3:22 PM EDT Narrative Resulting Agency Comment Spec In Lab Zeferino Paul MD CHEMISTRY ORDERABLE S Performing Organization Address [facility]/ZIP Co de Phone Number [facility]ERNER MILLENNIUM * Smooth Muscle Antibody (01/24/2012 3:14 PM EDT) Sm Muscle Ab (AUGUST) Negative Negative [facility] MILLENNIUM Comment: Test Performed by: [place] [address] Color Tester: Kevin Blackburn III, M.D. Blood specimen (specimen) 01/24/2012 3:14 PM EDT 01/24/2012 4:14 PM EDT Narrative Resulting Agency Comment Spec In Lab Zeferino Paul MD LAB SEND OUT ORDERA BLES Performing Organization Address [facility] de Phone Number CERRYLIE ROBERTSONENNIUM * Mitochondrial Antibody, M2 (01/24/2012 3:14 PM EDT) Mitochon Ab (AUGUST) <0.1 <0.1 (Negative) U [facility]ERNER MILLENNIUM Comment: Test Performed by: [place] [address] Color Tester: Kevin Blackburn III, M.D. Blood specimen (specimen) 01/24/2012 3:14 PM EDT 01/24/2012 4:14 PM EDT Narrative Resulting Agency Comment Spec In Lab Zeferino Paul MD LAB SEND OUT ORDERA BLES Performing Organization Address [facility] Co de Phone Number CERRYLIE ROBERTSONENNIUM * IgA (01/24/2012 3:14 PM EDT) IgA 94 70 - 400 mg/dL CERNER MILLENNIUM Blood specimen (specimen) 01/24/2012 3:14 PM EDT 01/24/2012 3:22 PM EDT Narrative Resulting Agency Comment Spec In Lab Zeferino Paul MD CHEMISTRY ORDERABLE S Performing Organization Address [facility] Co de Phone Number [facility] * (ABNORMAL) IgG (01/24/2012 3:14 PM EDT) Immunoglobulin G 678(L) 700 - 1600 mg/dL [facility] Blood specimen (specimen) 01/24/2012 3:14 PM EDT 01/24/2012 3:22 PM EDT Narrative Resulting Agency Comment Spec In Lab Zeferino Paul MD CHEMISTRY ORDERABLE S Performing Organization Address [facility] Phone Number [facility] * IgM (01/24/2012 3:14 PM EDT) IgM 99 40 - 230 mg/dL [facility] Blood specimen (specimen) 01/24/2012 3:14 PM EDT 01/24/2012 3:22 PM EDT Narrative Resulting Agency Comment Spec In Lab Zeferino Paul MD CHEMISTRY [employer] S Performing Organization Address [facility] Phone Number [facility] * (ABNORMAL) RUTHY (01/24/2012 3:14 PM EDT) RUTHY Pos(A) Neg [facility] Comment: 1:80 Titer seen with Homogeneous/Diffuse pattern. ??Is suggestive of autoantibodies to nDNA, histones, or DNA-associated proteins. Blood specimen (specimen) 01/24/2012 3:14 PM EDT 01/27/2012 8:22 AM EDT Narrative Resulting Agency Comment Spec In Lab Zeferino Paul MD LAB SEND OUT ORDERA BLES Performing Organization Address [facility] Co de Phone Number [facility] * AFP tumor marker (01/24/2012 3:14 PM EDT) Alpha Fetoprotein 2 <=5 ng/mL [facility] Comment: Note new Reference Range as of 12-23-2011. Reference: Immulite 2000 AFP package insert ([id number], 2009-01-05) Blood specimen (specimen) 01/24/2012 3:14 PM EDT 01/27/2012 8:29 AM EDT Narrative Resulting Agency Comment Spec In Lab Zeferino Paul MD CHEMISTRY ORDERABLE S Performing Organization Address [facility] Co de Phone Number [facility] * (ABNORMAL) TSH (01/24/2012 3:14 PM EDT) Thyroid Stimulating Hormone 4.23(H) 0.27 - 4.20 mcIU/mL [facility] Blood specimen (specimen) 01/24/2012 3:14 PM EDT 01/24/2012 3:22 PM EDT Narrative Resulting Agency Comment Spec In Lab Zeferino Paul MD CHEMISTRY ORDERABLE S Performing Organization Address [facility] Phone Number [facility] * Prothrombin Time (01/24/2012 3:14 PM EDT) Prothrombin Time 14.1 11.9 - 14.7 sec CERNER MILLENNIUM Comment: [facility] Transfusion Committee Guidelines: INR less than 2.0, PTT less than OR equal to 43.5 seconds, or Fibrinogen greater than or equal to 100 mg/dl indicate adequate procoagulant activity for hemostasis in patients without underlying bleeding disorders. International Normalization Ratio 1.1 0.9 - 1.1 CERNER MILLENNIUM Blood specimen (specimen) 01/24/2012 3:14 PM EDT 01/24/2012 3:22 PM EDT Narrative Resulting Agency Comment Spec In Lab Zeferino Paul MD HEMATOLOGY ORDERABL ES Performing Organization Address [facility] Co de Phone Number [facility] * (ABNORMAL) Comprehensive metabolic panel (non-fasting) (01/24/2012 3:14 PM EDT) [facility] Glucose 112 60 - 199 mg/dL CERNER MILLENNIUM Comment:Diabetes: >=200 mg/d L plus symptoms Blood Urea Nitrogen 12 8 - 18 mg/dL CERNER MILLENNIUM Creatinine 0.68(L) 0.70 - 1.20 mg/dL CERNER MILLENNIUM Comment: Please note that the pediatric reference intervals supplied above were not validated at [facility]. Results from pediatric patients should be interpreted in conjunction to the patient's age, height and muscle mass. Sodium 139 135 - 145 mmol/L CERNER MILLENNIUM Potassium 4.0 3.5 - 5.0 mmol/L CERNER MILLENNIUM Comment: Please note: ??Patients with WBC >100,000 may have falsely elevated Potassium levels. ??For accurate Potassium quantification in these patients send serum separator tube (gold top) for subsequent determinations. ??Contact the Clinical Chemistry Laboratory if there are any questions. Chloride 103 98 - 107 mmol/L CERNER MILLENNIUM Carbon Dioxide 26 22 - 31 mmol/L CERNER MILLENNIUM Anion Gap 10 5 - 15 mmol/L CERNER MILLENNIUM Calcium 11.1(H) 8.5 - 10.5 mg/dL CERNER MILLENNIUM Protein, Total 7.3 6.4 - 8.3 gm/dL CERNER MILLENNIUM Albumin 4.7 3.2 - 5.2 gm/dL CERNER MILLENNIUM Aspartate Aminotransferase 79(H) 0 - 30 unit/L CERNER MILLENNIUM Alanine Aminotransferase 52(H) 0 - 30 unit/L CERNER MILLENNIUM Alkaline Phosphatase 160(H) 40 - 104 unit/L CERNER MILLENNIUM Bilirubin, Total 0.3 0.2 - 1.3 mg/dL CERNER MILLENNIUM Bilirubin, Direct 0.1 0.0 - 0.3 mg/dL CERNER MILLENNIUM Est Glomerular Filtration Rate >60 >=60 CERNER MILLENNIUM Comment: The National Kidney Disease Education Program (NKDEP) has recommended all laboratories report estimated GFR (eGFR) along with plasma creatinine measurements to assist you with recognition of early kidney disease. Caveats: ??Plasma creatinine should be at steady-state (unchanged within the past week). For patients multiply eGFR by 1.2. The MDRD equation was developed using patients between the ages of 18 and 70 years. ?? The MDRD equation has not been validated for patients < 18 years of age and should not be used to assess renal function in the pediatric population. ??The MDRD eGFR equation will also overestimate the true GFR of patients above the age of 70. ??This overestimation is variable but increases with age. At present, NKDEP does NOT recommend using the MDRD equation for drug dosing purposes and pharmacists should continue to use their current dosing methods. In addition, numerical eGFR values greater than 60 ml/min/1.73 square meters should be treated as > 60, and not an exact number due to greater inaccuracies at these higher values. Per NKDEP, they classify normal renal function as any GFR >60ml/min/1.73 square meters; chronic kidney disease when GFR <60, and renal failure when GFR <15. ??This calculation may not be valid for patients with atypical muscle mass (very lean or obese), acute renal failure, and in patients with diabetic kidney disease. References: http://nkdep.nih.gov/resources/NKDEP_Suggestn4Labs_0606_508.pdf http://www.kidney.org/professionals/kls/pdf/faq_gfr.pdf Yayo K, Linda NA, Nicole AK, Robert TS, Tammy AD, Ramez ANTONIO. Relative performance of the MDRD and CKD-EPI equations for estimating glomerular filtration rate among patients with varied clinical presentations. Clin J Am Soc Nephrol;6:1963-72. Blood specimen (specimen) 01/24/2012 3:14 PM EDT 01/24/2012 3:22 PM EDT Narrative Resulting Agency Comment Spec In Lab Zeferino Paul MD CHEMISTRY ORDERABLE S LILLIE HUIZAR * (ABNORMAL) CBC (with Diff) (01/24/2012 3:14 PM EDT) White Blood Cell 6.1 4.0 - 10.0 x10(3)/mc L CERNER MILLENNIUM Red Blood Cell 4.05 3.93 - 5.22 x10(6)/mc L CERNER MILLENNIUM Hemoglobin 12.3 11.2 - 15.7 gm/dL CERNER MILLENNIUM Hematocrit 37.7 34.0 - 45.0 % CERNER MILLENNIUM Mean Cell Volume 93.1 79.0 - 94.0 fL CERNER MILLENNIUM Mean Cell Hemoglobin 30.4 26.6 - 32.2 pg CERNER MILLENNIUM Mean Cell Hemoglobin Concentration 32.6 32.0 - 36.5 gm/dL CERNER MILLENNIUM Platelet 145 145 - 370 x10(3)/mc L CERNER MILLENNIUM RDW Standard Deviation 46.2(H) 35.0 - 46.0 fL CERNER MILLENNIUM RDW coefficient of variation 13.6 10.9 - 14.4 % CERNER MILLENNIUM Mean Platelet Volume 9.6 9.0 - 12.0 fL CERNER MILLENNIUM Blood specimen (specimen) 01/24/2012 3:14 PM EDT 01/24/2012 3:22 PM EDT Narrative Resulting Agency Comment Spec In Lab Zeferino Paul MD HEMATOLOGY ORDERABL ES CERRYLIE HUIZAR documented in this encounter Visit Diagnoses Diagnosis Elevated liver function tests- Primary Other abnormal blood chemistry Hematuria Hematuria, unspecified Elevated liver function tests Other abnormal blood chemistry documented in this encounter Care Teams Contract Project Manager Relationship Specialty Start Date End Date Jennie Resendiz MD [address] [place] [address] PCP - General 03/06/10 08/27/16 documented as of this encounter
--- OUTSIDE RECORDS SUMMARY | 2024-01-23 00:36 | XMS_ITS | Encounter Summary ---
Author Organization [facility] [place] [address] Care Team Providers Care Superintendent Plant Name Role Phone Jennie Resendiz MD Primary Care Provider [phone] Reason for Visit * Reason Comments Backache Encounter Details Date Type Department Care Team (Late st Contact Info) Description 12/04/2010 1:00 PM EDT Office [place] [address] Grant Roach MD [facility] [place] [address] Chronic low back pain (Primary Dx); Lumbago Discharge Disposition: Home Social History Tobacco Use [...] Sign Reading Time Taken Comments Blood Pressure 139/99 12/04/2010 1:41 PM EDT Pulse 74 12/04/2010 1:41 PM EDT Temperature - - Respiratory Rate - - Oxygen Saturation 96% 12/04/2010 1:41 PM EDT Inhaled Oxygen Concentration - - Weight 108.9 kg (240 lb) 12/04/2010 1:12 PM EDT Height 165.1 cm (5' 5) 12/04/2010 1:12 PM EDT Body Mass Index 39.94 12/04/2010 1:12 PM EDT documented in this encounter Patient Instructions * Patient Instructions* Virginia Quiroz RN - 12/04/2010 1:47 PM EDT Pain Management Center Discharge Instructions: You were seen by Dr. Grant Roach MD who performed right piriformis injection. [x] You may resume your normal activities: tomorrow. You may shower today. DO NOT tub bathe, use whirlpools, hot tubs or pool therapy for 2 days. RemoveBand-Aid(s) later today/tomorrow. Do not drive until tomorrow. Use caution walking/climbing stairs as you may be unsteady on your feet. You may use your usual medications, including pain medications, as directed, unless otherwise instructed. You may use an ice pack as needed for the first 24 hours, on for 20 minutes then off for 20 minutes. Do not apply heat today. Attempt to empty your bladder 4-6 hours after your procedure. You received the following medications: Depo-Medrol 40 mg, Lidocaine and Omnipaque (contrast dye). During regular business hours, please phone the Pain Management Center at for appointments or with any questions or if the following or other troubling symptoms develop: 1) Prolonged dizziness or weakness (more than 1 day). 2) Localized swelling, redness or drainage at the injection site(s). 3) Temperature of 101 degrees that lasts for more than 4 hours. After 5 PM or on weekends, call and ask for Pain Clinic provider on-call. If you are unable to reach the Pain Management Center and have a complication, please call your Primary Care Provider or proceed to your local emergency department. Special instructions:repeat as needed Virginia Quiroz RN documented in this encounter Progress Notes * Haven Telles DO - 12/07/2010 1:17 PM EDT I was the attending physician supervising the resident in the above care. For the purposes of billing, the resident provided the care. Haven Telles DO DO [facility] [place] [address] Dept: [phone] * Virginia Quiroz RN - 12/04/2010 1:16 PM EDT Pre-Procedure Screening Questions: 1. Status: No 2. 3. Patient states they have a cat driver to transport after procedure? Yes 4. Patient taking antibiotics at present? No 5. NPO per Pain Management Center protocol? No 6. 7. Patient diabetic: No __ borderline (not treated with medications) __ managed with oral medications __ managed with injected medications 8. Patient routinely taking anticoagulants ? No Date stopped Current INR Patient Vital Signs documented in Doc Flowsheets associated with this encounter. Patient Discharge Instructions were reviewed with patient and copy provided to patient. documented in this encounter Procedure Notes * Grant Roach MD - 12/04/2010 1:59 PM EDTAssociated Order(s): TRIGGER POINT INJECTION - 1 OR 2 MUSCLES Procedure(s): TRIGGER POINT INJECTION - 1 OR 2 MUSCLES Pre-Procedure Diagnose(s): Chronic low back pain ANESTHETIC BLOCK PROCEDURE NOTE The patient arrived for a RT PIRIFORMIS INJECTION Kallie Porter was interviewed and the medical record reviewed. There was no medical, pharmacologic, radiographic or other structural contraindications to attempting fluoroscopically guided piriformis injection. Risks and expected side effects as well as potential benefits of the procedure werereviewed with Kallie Porter, and her voiced concerns were addressed. The printed consent form was signed and witnessed. Standard time-out procedure was performed. Kallie Porter was placed in the prone position on the fluoroscopy table, automatic blood pressure cuff and pulse oximeter applied. The skin entry point for approaching the piriformis muscle by bony landmards of mid-sacrum and greater trochanter. Following thorough Chlorhexidine preparation of the skin and draping and 1% Lidocaine Infiltration of the skin entry point and subcutaneous tissue, a 22G 5 inch needle was advanced. Careful aspiration of the needle did not result in any blood or other fluid return. When appropriate depth seemed reasonable, injection of 2 ml Omnipaque 240 resultedin an appropriate dye pattern. Then 40 mg of Depomedrol was injected followed by 1 ml of 1% lidocaine. Kallie Porter's vital signs were stable throughout the procedure and were as recorded in nursing records. If given, intravenous drugs for sedation and analgesia were documented in nursing records. If this does not provide some relief, would be willing to attempt an SI joint injection if she desires. Grant Roach MD Pain Medicine Fellow [facility] documented in this encounter Miscellaneous Notes * Miscellaneous - Tino, Home Health Care Provider - 12/08/2010 7:31 AM EDT documented in this encounter Plan of Treatment Upcoming Encounters Date Type Department Care Team (Late st Contact Info) Description 02/27/2024 2:45 PM EST TH Visit (TeleHealth) [place] [address] Lashae Lorenzo MD [facility] [place] [address] documented as of this encounter Results * TRIGGER POINT INJECTION - 1 OR 2 MUSCLES (12/04/2010 2:03 PM EDT) Haven Telles DO NEUROLOGY ORDERABLES documented in this encounter Visit Diagnoses Diagnosis Chronic low back pain- Primary Lumbago Lumbago documented in this encounter Administered Medications Inactive Administered Medications - up to 3 most recent administrations Medication Order MAR Action Action Date Dose Rate Site iohexol (OMNIPAQUE) injection 50 mL 50 mL, Intravenous, ONCE PRN, 1 dose, Starting on Fri12/04/10 at 1348, Until Fri12/04/10 at 1351, Per Protocol, Routine Given 12/04/2010 1:51 PM EDT 50 mLs lidocaine (PF) (XYLOCAINE) 10 mg/mL (1 %) injection 40 mg 40 mg, Subcutaneous, ONCE, 1 dose, On Fri12/04/10 at 1415, Routine Given 12/04/2010 2:15 PM EDT 40 mg methylPREDNISolone acetate (depo-MEDROL) injection 40 mg 40 mg, Intramuscular, ONCE, 1 dose, On Fri12/04/10 at 1415, Routine Given 12/04/2010 2:15 PM EDT 40 mg documented in this encounter Care Teams Superintendent Plant Relationship Specialty Start Date End Date Jennie Resendiz MD [address] [place] [address] PCP - General 03/06/10 08/27/16 documented as of this encounter
--- OUTSIDE RECORDS SUMMARY | 2024-01-23 00:36 | XMS_ITS | Encounter Summary ---
Author Organization [facility] [place] [address] Care Team Providers Care Fraternity House Cook Name Role Phone Jennie Resendiz MD Primary Care Provider [phone] Encounter Details Date Type Department Care Team (Latest Contact Info) Description 01/28/2012 6:38 AM EDT - 01/28/2012 11:59 PM EDT Hospital [place] [phone] CLINIC, Timothy Alvarado MD [facility] [place] [address] Elevated liver function tests Discharge Disposition: Home Social History Tobacco Use [...] Sign Reading Time Taken Comments Blood Pressure 115/67 01/28/2012 10:14 AM EDT Pulse 78 01/28/2012 10:14 AM EDT Temperature 36.8 ??C (98.2 ??F) 01/28/2012 7:00 AM ED T Respiratory Rate 14 01/28/2012 10:01 AM EDT Oxygen Saturation 96% 01/28/2012 10:14 AM EDT Inhaled Oxygen Concentration - - Weight - - Height - - Body Mass Index - - documented in this encounter Discharge Instructions * Discharge Instructions* Erickson Aldana RN - 01/28/2012 10:47 AM EDT Vascular and Interventional Radiology Sodium Bicarbonate Protocol Administration Notes Name: Kallie Smart Age: 51 y.o. Sex; Female Date of : 1960 PCP JENNIE RESENDIZ MD [phone] Time Treatment started: Time Treatment ended: Reason for visit: CT Scan with Contrast. Need for bicarb Protocol Subjective: Kallie Smart offers no complaints. Objective: Lab Data: BUN Date/Time Value Range Status 01/24/12 03:14 PM 12 8-18 (mg/dL) Final Creatinine Date/Time Value Range Status 01/24/12 03:14 PM 0.68* 0.70-1.20 (mg/dL) Final Please note that the pediatric reference intervals supplied above were not validated at [facility]. Results from pediatric patients should be interpreted in conjunction to the patient's age, height and muscle mass. Pain Level: If > 5, Interventions and Effectiveness: IV Access: Gauge: Blood return: Any signs or symptoms of infection or extravasations 1 hour after initiation: 2 hours after initiation: 3 hours after initiation: 4 hours after initiation: IV flushed with : 10 ml normal saline IV discontinued: Treatment: 1 liter 5% Dextrose with 150 meq Sodium Bicarbonate initiated at rate of ml/hr for 1 hour, then ml hour for hours. Reaction: Assessment: Kallie Smart was awake, alert and tolerated the treatment well. Plan: Patient will follow up with referring physician. documented in this encounter Medications at Time [...] 07/30/2010 10/16/2017 documented as of this encounter Progress Notes * Erickson Aldana RN - 01/29/2012 9:41 AM EDT Interventional and Vascular Radiology Post-Procedure Call Name: Kallie Smart Age: 51 y.o. Sex; Female Date of : 1960 (home) Telephone Information: PCP JENNIE RESENDIZ MD [phone] Date/Time of call: January 29, 2012/9:41 AM/ Procedure: Contact with patient Yes If not patient, whom? Message left on answering machine: Call attempted - unable to contact patient: Are you having pain related to your procedure now? Yes How are you managing your pain? Not really worse or different then the pain before the procedure. Are you having any other problems related to you procedure? Nausea and Vomiting with diarrhea. Comments: How would you rate your pain management during the procedure? A little pain, but not bad. Comments: Did you have anxiety during your procedure? No Comments: Did the discharge instructions you received answer your questions Yes Comments: Did you feel you were given adequate instructions prior to your procedure? Yes Comments: On a scale of 0 to 10, how well were you satisfied with the care you received in Interventional Radiology? 10 Comments: you guys did a great job. Is there anything we could have done differently? Comments: Can't think of anything. Nurse Comments: Instructed pt. To drink water, perhaps gingerale and toast. Keep it simple and small quantity. Call if not feeling better by tonight or tomorrow. * Erickson Aldana RN - 01/28/2012 10:22 AM EDT Pt. ok'd by Sherry SWARTZ to discharge to home with brother driving. * Sam Shea MD - 01/28/2012 7:13 AM EDT H and P update Lungs clear Heart RRR Mallampati 1 ASA 2 * Keeley Fernandez APRN - 01/28/2012 7:11 AM EDT PRE-PROCEDURE VIR NOTE Date of : 1960 Age: 51 y.o. PCP: JENNIE RESENDIZ MD Referring Physician (if different): Hilary Woodard APRN Indication: Elevated LFTs Planned Procedure: US-guided liver biopsy Chief Complaint/Diagnosis: 51 year old white female with hepatosplenomegaly and elevated LFT's withETOH history. Outside Abdominal CT Scan 12/13/11: The liver [...] No free fluid is seen in theabdomen. Given all the above, we have been consulted for liver biopsy for concern of cirrhosis. Pertinent Past Medical/Surgical History: Past Medical History Diagnosis Date ??? Lower extremity pain Right sided ??? SOCORRO (obstructive sleep apnea) ??? Asthma ??? Depression ??? Elevated liver function tests ??? Constipation Allergies Allergen Reactions ??? Bacitracin Nausea Only ??? Neomycin Sulfate Nausea Only ??? Polymyxin B Nausea Only ??? Gramicidin D Nausea Only ??? Amoxicillin-pot Clavulanate Nausea Only ??? Aspirin Nausea And Vomiting ??? Lactose Other (See Comments) GI Upset Current outpatient prescriptions ordered prior to encounter Medication Sig Dispense Refill ??? fluticasone-salmeterol (ADVAIR) 500-50 mcg/dose diskus inhaler Inhale 1 puff into the lungs 2 times daily. ??? risperidone (RISPERDAL) 1 mg tablet Take 1 mg by mouth nightly. ??? citalopram (CELEXA) 10 mg tablet Take 10 mg by mouth daily. ??? tiotropium (SPIRIVA) 18 mcg inhalation capsule Inhale 18 mcg into the lungs daily. ??? Levalbuterol Tartrate (XOPENEX HFA) 45 mcg/Actuation inhaler Inhale 2 puffs into the lungs every 4 hours as needed. 2 puffs Q4-6 Hours ??? esomeprazole (NEXIUM) 40 mg capsule Take 40 mg by mouth daily. ??? gabapentin (NEURONTIN) 300 mg capsule Take 600 mg by mouth 2 times daily. ??? amitriptyline (ELAVIL) 10 mg tablet Take 10 mg by mouth nightly. Pertinent ROS: as per HPI Pertinent Family History: non contributory Social History: n/a Labs: Lab Results Component Value Date WBC 6.1 01/24/2012 HCT 37.7 01/24/2012 PLATELET 145 01/24/2012 INR 1.1 01/24/2012 BUN 12 01/24/2012 Lab Results Component Value Date ALKPHOS 160* 01/24/2012 AST 79* 01/24/2012 ALBUMIN 4.7 01/24/2012 BILIDIR 0.1 01/24/2012 BILITOT 0.3 01/24/2012 ALT 52* 01/24/2012 Assessment / Plan: US-guided liver bx. Medications to discontinue: none Prophylactic antibiotic: none Planned access site / position: supine * Lupe Mathew RN - 01/24/2012 4:07 PM EDT [facility] NURSING DATABASE Name: KALLIE SMART Date of : 1960 AGE 51 y.o. Address: [address] [address] (home) Mobile: Telephone Information: Referring Provider: Timothy Paul Reason for Visit: Liver biopsy/ elevated LFTs, ? cirrhosis Allergies Allergen Reactions ??? Bacitracin Nausea Only ??? Neomycin Sulfate Nausea Only ??? Polymyxin B Nausea Only ??? Gramicidin D Nausea Only ??? Amoxicillin-pot Clavulanate Nausea Only ??? Aspirin Nausea And Vomiting ??? Lactose Other (See Comments) GI Upset Pertinent PMH: Patient Active Problem List Diagnoses Code ??? Right foot pain 729.5CL ??? Neck pain 723.1B ??? Left elbow pain 719.42N ??? Asthma 493.90AE ??? Chronic low back pain 724.2AG ??? Restless leg syndrome 333.94J ??? Acid reflux 530.81AP ??? Learning disability 315.2F ??? Low back pain 724.2A Pertinent PSH: Past Surgical History Procedure Date ??? Knee arthroscopy 2002 left ??? Hysterectomy 1979 ??? Hand surgery 1967 left thumb ??? Cholecystectomy 2009 Date/Procedure Comments: None in EDH or CIS 01/28/12 Liver biopsy Fentanyl 100mcg/ Versed 2mg Laboratory Results: Lab Results Component Value Date INR 1.1 01/24/2012 Lab Results Component Value Date PT 14.1 01/24/2012 No results found for this basename: BUN No results found for this basename: creatinine No results found for this basename: k Lab Results Component Value Date PLATELET 145 01/24/2012 Medications: Prior to Admission medications Medication Sig Start Date End Date Taking? Authorizing Provider fluticasone-salmeterol (ADVAIR) 500-50 mcg/dose diskus inhaler Inhale 1 puff into the lungs 2 timesdaily. Historical Provider, amitriptyline (ELAVIL) 10 mg tablet Take 10 mg by mouth nightly. Historical Provider, polyethylene glycol-electrolytes (PEG 3350-ELECTROLYTES) 420 g solution Take 2,000 mLs by mouth once for 1 dose. 01/24/12 01/24/12 Leisa Woodard APRN risperidone (RISPERDAL) 1 mg tablet Take 1 mg by mouth nightly. 10/17/10 Historical Provider, citalopram (CELEXA) 10 mg tablet Take 10 mg by mouth daily. Historical Provider, tiotropium (SPIRIVA) 18 mcg inhalation capsule Inhale 18 mcg into the lungs daily. Historical Provider, Levalbuterol Tartrate (XOPENEX HFA) 45 mcg/Actuation inhaler Inhale 2 puffs into the lungs every 4 hours as needed. 2 puffs Q4-6 Hours Historical Provider, esomeprazole (NEXIUM) 40 mg capsule Take 40 mg by mouth daily. 07/30/10 Historical Provider, gabapentin (NEURONTIN) 300 mg capsule Take 600 mg by mouth 2 times daily. 07/30/10 Historical Provider, FLUTICASONE/SALMETEROL (ADVAIR DISKUS INHL) Inhale 2 puffs into the lungs 2 times daily. 07/30/10 01/24/12 Historical Provider, LACTASE (LACTAID ORAL) Take 1 tablet by mouth daily. 07/30/10 01/24/12 Historical Provider, Vitamin E 400 unit Tab Take 800 Units by mouth daily. 07/30/10 01/24/12 Historical ProviderMD documented in this encounter Procedure Notes * Heron Montes MD - 01/28/2012 9:13 AM EDTProcedure(s): PRO NEEDLE BIOPSY LIVER Pre-Procedure Diagnose(s): Hepatosplenomegaly Post-Procedure Diagnose(s): Hepatosplenomegaly VIR PROCEDURE NOTE: US-guided liver biopsy ACC#: [id number] Indication: hepatosplenomegaly and elevated LFT's with ETOH history. Technique: After discussing risks (including infection and hemorrhage), and benefits, patient consented to the procedure. Due to the painful nature of the procedure, split doses of fentanyl and versed were administered by the IR nurse during continuous monitoring of pulse, blood pressure and oxygensaturation. Liver was localized with US. After sterile preparation of the overlying skin, 1% lidocaine SQ was administered for anesthesia, and a 16 ga needle guide was advanced coaxially under CT guidance into the right lobe. The 18 ga biopsy gun was advanced coaxially and specimen obtained x 4 and submitted to pathology. Needle was removed and hemostasis obtained by manual compression. Patient tolerated theprocedure well. There were no immediate complications. Findings: Specimen obtained from right lobe liver. Impression: Technically successful biopsy. documented in this encounter Miscellaneous Notes * Miscellaneous - Provider, Scanning - 02/11/2012 9:49 AM EDT * Miscellaneous - Provider, Scanning - 02/11/2012 9:17 AM EDT documented in this encounter Plan of Treatment Upcoming Encounters Date Type Department Care Team (Late st Contact Info) Description 02/27/2024 2:45 PM EST TH Visit (TeleHealth) [place] [address] Lashae Lorenzo MD [facility] [place] [address] documented as of this encounter Procedures Procedure Name Priority Date/Time Associated Diagnosis Comments SURGICAL PATHOLOGY REPORT Routine 01/28/2012 8:16 AM EDT IR ALL BIOPSY PROCEDURES Routine 01/28/2012 8:12 AM EDT Elevated liver function tests SPECIMEN TO PATHOLOGY (NON-OR) Routine 01/28/2012 7:12 AM EDT documented in this encounter Results * SURGICAL PATHOLOGY REPORT (01/28/2012 8:16 AM EDT) Surgical Pathology Report ? [facility] ? Provider: ?? HERON MONTES ?Pt. Name: ?? KALLIE SMART ? Acc #: ?[id number] ?Pt. ? Col Date: ?? 01/28/2012 ?/Sex: ?1960,(51 years),Female ? Rec Date: ?? 01/28/2012 ?LOC: ?3W ? SURGICAL PATHOLOGY ? ---Pathologic Diagnosis--- ? Liver, percutaneous biopsy: ?Severe steatohepatitis and cirrhosis (see Note). ? NOTE: ??The biopsy shows severe steatosis, prominent hepatocyte ballooning ? and prominent inflammatory component. ??Trichrome stain highlights prominent ? pericellular and bridging fibrosis, consistent with cirrhosis. ??Iron stain ? is negative. ? CR-0 ? 01/30/12 ? BJM ? 01/31/12 Verified by: ? Efrem Stein MD ? Pathologist ? (Electronic Signature) ? The attending pathologist whose signature appears on this report has ? reviewed all diagnostic slides and has edited the gross and/or ? microscopic portion of the report in rendering the final pathologic ? diagnosis. ? ---Microscopic Description--- ? Slides reviewed, microscopic description not recorded. ? Special stains are performed. ? Block ? Stain ? Result ( Positive / Negative ) ?A1 ? Iron ? See Note. ?A1 ? Trichrome ?See Note. ? ---Gross Description--- ? Labeled/Fixative: ? Labeled with the patient's name and medical ? record number, formalin. ? Qty/Size/Weight: ?Five anival-kamala needle core biopsies, each ? 0.1 cm in diameter and ranging from 0.8 cm ? to 1.6 cm. ? Sections/Processin g: ??(T1) ??vms/PPS ? ---Clinical Information--- ? Specimen Submitted: ? A - Percutaneous liver biopsy ? [facility] ? Provider: ?? HERON MONTES ?Pt. Name: ?? KALLIE SMART ? Acc #: ?[id number] ?Pt. ? Col Date: ?? 01/28/2012 ?/Sex: ?1960,(51 years),Female ? Rec Date: ?? 01/28/2012 ?LOC: ?3W ? SURGICAL PATHOLOGY ? Clinical History/Diagnosis: ? Elevated LFTs ? cirrhosis [facility] 01/28/2012 8:16 AM EDT Heron Montes MD PATHOLOGY/CYTOLOGY O RDERABLES LILLIE HUIZAR * IR all biopsy procedures (01/28/2012 8:12 [...] PROCEDURE NOTE: US-guided liver biopsy ?ACC#: ?? [id number] ? Indication: ?? Hepatosplenomegaly and elevated LFTs [...] from right lobe liver. ? Procedure Note Heron Montes MD - 01/30/2012 VIR PROCEDURE NOTE: US-guided liver biopsy ACC#: [id number] Indication: Hepatosplenomegaly and elevated LFTs with ETOH [...] {CR} ; {CR} ; {CR} ; {CR} Timothy Paul MD IMG IR ORDERABLES * Specimen to Pathology (NON-OR) (01/28/2012 7:12 AM EDT) AP Specimen 01/28/2012 7:12 AM EDT 01/28/2012 7:12 AM EDT Narrative LILLIE HUIZAR - 01/28/2012 7:12 AM EDT Specimen requisition ordered. ??Separate Pathology report to follow Heron Montes MD PATHOLOGY/CYTOLOGY O RDERABLES LILLIE HUIZAR documented in this encounter Visit Diagnoses Diagnosis Elevated liver function tests Other abnormal blood chemistry documented in this encounter Administered Medications Inactive Administered Medications - up to 3 most recent administrations Medication Order MAR Action Action Date Dose Rate Site fentaNYL 50mcg/mL injection 25-50 mcg, Intravenous, EVERY 5 MIN PRN, Starting on Fri01/28/12 at 0717, Until Fri01/28/12 at 0814, Pain, per unit protocol, Angio/IR (Intra-Procedure), Routine Given 01/28/2012 8:11 AM EDT 100 mcg midazolam (VERSED) injection 0.5-1 mg 0.5-1 mg, Intravenous, EVERY 5 MIN PRN, Starting on Fri01/28/12 at 0717, Until Fri01/28/12 at 0814, Anxiety, per unit protocol, Angio/IR (Intra-Procedure), Routine Given 01/28/2012 8:13 AM EDT 2 mg documented in this encounter Care Teams Fraternity House Cook Relationship Specialty Start Date End Date Jennie Resendiz MD [address] [place] [address] PCP - General 03/06/10 08/27/16 documented as of this encounter
--- OUTSIDE RECORDS SUMMARY | 2024-01-23 00:36 | XMS_ITS | Encounter Summary ---
Author Organization [facility] [place] [address] Care Team Providers Care Security Ambassador Name Role Phone Jennie Resendiz MD Primary Care Provider [phone] Reason for Visit * Reason Comments Functional Assessment Encounter Details Date Type Department Care Team (Late st Contact Info) Description 07/30/2010 1:30 PM EDT Follow-[place] [phone] Dona Thompson, [facility] [place] [address] Social History Tobacco Use Types Packs/Day Years [...] EST TH Visit (TeleHealth) [place] [phone] Lashae Lorenzo MD [facility] [place] [address] documented as of this encounter Visit Diagnoses Not on filedocumented in this encounter Care Teams Security Ambassador Relationship Specialty Start Date End Date Jennie Resendiz MD [facility] [address] [facility] [address] [place] [address] PCP - General 03/06/10 08/27/16 documented as of this encounter
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
--- OUTSIDE RECORDS SUMMARY | 2024-01-23 00:36 | XMS_ITS | Encounter Summary ---
[place] [address] Care Team Providers Care Industrial Ecologist Name Role Phone Jennie Resendiz MD Primary Care Provider [phone] Reason for Referral * Consultation (Routine) - Closed Specialty Diagnoses / Procedures Referred By Nicol sparks Referred To Contact Pain Management Diagnoses Chronic low back pain Dorinda Lira APRN [facility] [place] [address] [facility] [address] [place] [phone] Referral ID Status Reason Start Date Expiration Date V isits Requested Visits Authorized [id number] Closed Consult Only 09/28/2010 03/27/2011 1 1 Reason for Visit * Reason Comments Back Pain Encounter Details Date Type Department Care Team (Late st Contact Info) Description 09/28/2010 11:30 AM EDT [place] [address] Dorinda Lira [facility] [place] [address] Chronic low back pain (Primary Dx) Discharge Disposition: Home Social History Tobacco Use Types Packs/Day Years Used Date Smoking Tobacco: Every Day Cigarettes 0.5 30 Tobacco Cessation:Ready to Q uit: No Alcohol Use Standard Drinks/Week Comments Not Asked 0 (1 standard drink = 0.6 oz pur e alcohol) Sex and Gender Information Value Date Recorded Sex Assigned at Not on file Gender Identity Not on file Sexual Orientation Not on file documented as of this encounter Last Filed Vital Signs Vital Sign Reading Time Taken Comments Blood Pressure 142/68 09/28/2010 11:22 AM EDT Pulse - - Temperature - - Respiratory Rate - - Oxygen Saturation - - Inhaled Oxygen Concentration - - Weight 89.8 kg (198 lb) 09/28/2010 11:22 AM EDT Height 165.1 cm (5' 5) 09/28/2010 11:22 AM EDT Body Mass Index 32.95 09/28/2010 11:22 AM EDT documented in this encounter Progress Notes * Dorinda Lira APRN - 09/28/2010 11:49 AM EDT Subjective: Kallie is a patient I saw recently for medical clearance for potential participationin the functional muslim program . At the time that I saw her there was not a large gap between her goals and abilities nor her goals clear and she was sent to see Fermín for conditioning and goals clarification . She still has no clear functional goals and is not a candidate for the functional muslim program. Objective : I reviewed past notes in the system , and noted that there was a reference by Dr. Ralph about obtaining an MRI and since she is not a candidate for FRP I am going to send the patient back to him to discuss this. assessment: chronic back pain with right leg symptoms plan: return to pain clinic to discuss MRI and other options the patient is not a candidate for FRPthank you . Greater than 50% of this 25 minute visit was spent in [id number] discussion of present symptoms and plan of care. documented in this encounter Plan of Treatment Upcoming Encounters Date Type Department Care Team (Late st Contact Info) Description 02/27/2024 2:45 PM EST TH Visit (TeleHealth) [place] [address] Lashae Lorenzo MD [facility] [place] [address] Scheduled Referrals Name Type Priority Associated Diagnoses Orde r Schedule REFERRAL TO PAIN CLINIC Outpatient Referral Routine Chronic low back pain Ordered: 09/28/2010 documented as of this encounter Visit Diagnoses Diagnosis Chronic low back pain- Primary Lumbago documented in this encounter Care Teams Industrial Ecologist Relationship Specialty Start Date End Date Jennie Resedniz MD [address] [place] [address] [facility] [address] [place] [address] PCP - General 03/06/10 08/27/16 documented as of this encounter
--- OUTSIDE RECORDS SUMMARY | 2024-01-23 00:36 | XMS_ITS | Encounter Summary ---
Author Organization Formerly [facility] [place] [address] Care Team Providers Care Personal Vehicle Advisor Name Role Phone Jennie Resendiz MD Primary Care Provider [phone] Reason for Visit * Reason Comments Backache Encounter Details Date Type Department Care Team (Late st Contact Info) Description 10/17/2010 1:15 PM EDT Follow-Up [place] [id number] Grant Roach MD [facility] [place] [address] Low back pain (Primary Dx) Discharge Disposition: Home [...] Sign Reading Time Taken Comments Blood Pressure 134/79 10/17/2010 1:21 PM EDT Pulse 83 10/17/2010 1:21 PM EDT Temperature - - Respiratory Rate - - Oxygen Saturation 96% 10/17/2010 1:21 PM EDT Inhaled Oxygen Concentration - - Weight 111.1 kg (245 lb) 10/17/2010 1:21 PM EDT Height 165.1 cm (5' 5) 10/17/2010 1:21 PM EDT Body Mass Index 40.77 10/17/2010 1:21 PM EDT documented in this encounter Progress Notes * Romulo Wyman MD - 10/18/2010 8:44 AM EDT I was the attending physician supervising the resident in the above care. For the purposes of billing, the resident provided the care. * Grant Roach MD - 10/17/2010 2:23 PM EDT Subjective: Jena doll is a 50-year-old female returns clinic status post MRI that Dr. Federico Barroso ordered with a history of chronic nonspecific low back pain. She was evaluated for functional church which she is not interested in and therefore not a candidate. She has not Interested in cognitive behavioral therapy But simply wants the pain to go away. She does have a history of alcohol abuseand has been considered a poor candidate for chronic opioid therapy and currently is not on any. She has never had injections in the past. She states that she has her usual pain in her right lower back upper buttock and occasionally has her entire leg go numb. Lying flat makes it worse walking makes it a little bit better. She states that the Neurontin that Dr. Bird has started has not made a significant difference. Objective: Vital signs reviewed. Constitutional no acute distress makes good eye contact. Demonstrates little insight to her chronic pain condition. Focused physical exam: Decreased range of motion of the lumbar spine. Significant tenderness to palpation in her right upper to mid buttock. Some increased pain with extension and right lateral bending right greater than left. Equivocal right-sided Kd maneuver And reproducible pain with hip flexion and abduction and external rotation. Straight leg raise raise and cross straight leg raise is negative. Assessment: Ms. Porter is a 50-year-old female with chronic low back pain. Basil location and physical exam I think therefore the syndrome and sacroiliac joint dysfunction are in the differential diagnosis. I would be happy to schedule her for a piriformis injection on the right side. The fat is non-efficacious, would consider a right-sided sacroiliac joints, followed by lumbar medial branch block s. I did explain to her that if these do not work, with her lack of interest in psychological and physical modalities to deal with her chronic pain, she really is at the endpoint of medical management and coping skills and acceptance of her chronic pain is the oconnell component for enjoyment of her life. Grant Roach MD Pain Fellow [facility] documented in this encounter Plan of Treatment Upcoming Encounters Date Type Department Care Team (Late st Contact Info) Description 02/27/2024 2:45 PM EST TH Visit (TeleHealth) [place] [address] Lashae Lorenzo MD [facility] [place] [address] documented as of this encounter Visit Diagnoses Diagnosis Low back pain- Primary Lumbago documented in this encounter Care Teams Personal Vehicle Advisor Relationship Specialty Start Date End Date Jennie Resendiz MD [facility] [address] [place] [address] PCP - General 03/06/10 08/27/16 documented as of this encounter
--- OUTSIDE RECORDS SUMMARY | 2024-01-23 00:36 | XMS_ITS | Encounter Summary ---
Author Organization [facility] Address [address] [place] [address] Care Team Providers Care Research Professional Name Role Phone Grant Lindsey MD Primary Care Provider [phone] Reason for Visit * Reason Onset Date Comments Appointment Related 05/26/2020 Encounter Details Date Type Department Care Team (Late st Contact Info) Description 05/26/2020 Telephone [facility] [address], [place] [id number] Amber Lawrence PA-C [address] [facility] [place] [address] Appointment Related Social History Tobacco Use Types Packs/Day Years [...] No 02/03/2020 documented as of this encounter Miscellaneous Notes * Telephone Encounter - Dorcas Bolanos - 06/12/2020 1115 EST 3rd attempt: 2nd attempt to contact patient to schedule a telemedicine appointment with Amber Lawrence PA-C. [employer] not able to leave a message due to the patient's voicemail not being set up. * Telephone Encounter - Dorcas Bolanos - 06/05/2020 1253 EST 2nd attempt to contact patient to schedule a telemedicine appointment with mAber Lawrence PA-C. [employer]er not able to leave a message due to the patient's voicemail not being set up. * Telephone Encounter - Dorcas Bolanos - 05/26/2020 1113 EST Attempted to contact Kallie to schedule a telemedicine with Amber Lawrence PA-C. This ticket writer was unable to leave a message, due her voicemail not being set up. The alternate number is no longerin service. This ticket writer will attempt to contact Kallie at a later time to schedule. documented in this encounter Plan of Treatment Not on file documented as of this encounter Visit Diagnoses Not on filedocumented in this encounter Care Teams Research Professional Relationship Specialty Start Date End Date Grant Lindsey [place] [place] [address] PCP - General 09/09/19 documented as of this encounter
--- OUTSIDE RECORDS SUMMARY | 2024-01-23 00:36 | XMS_ITS | Encounter Summary ---
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 Function/Development: Pt able to move all limbs in isolation, no deficits in coordination noted with functional mobility. Smooth pursuit (H pattern): no deficit but patient reports increased pain in right voodoo Head turn to left, no increase in dizziness or headache Head turn to right, increased dizziness and patient reports blurry vision, improved with staying inthat position for a few minutes Balance, Mobility, and Gait: Balance: No loss of balance observed throughout physical therapy session Mobility: supine to sit: Modified independent with HOB 45 deg sit to stand: Supervision with single point cane stand to sit: Supervision with single point cane bed to chair: Modified independent with use of UEs Gait: Assistive device/distance/assist/deviations: ~20 feet, single point cane, minimal contact assist x 1 progressing to supervision, slow sandrine, decreased bilateral step length and foot clearance Self-Care, Home Management, Work, and Leisure: Not prioritized in this setting Outcomes: Please refer to individual sections for any outcome measures that were performed Informed Consent: The patient consented to the physical therapy evaluation. The patient agrees to and understands the physical therapy treatment plan and goals. Interventions Completed Today: Physical Therapy today at: 0920 Total treatment time: 30 minutes. Timed code treatment minutes: 10 Intervention included: Therapeutic exercises: Activity tolerance with : 1. Sitting EOB, ~5 min, tolerated well with no significant increase in symptoms but transfer supineto sit did increase symptoms. 2. Ambulation, x20 feet and x30 feet, with single point cane, minimal contact assist x 1 progressing to supervision, cues for increasing gait speed while maintaining safety - patient able to increasegait speed slightly with no balance deficits noted. Gait continued to be slow with decreased bilateral step length and foot clearance, appropriate use of the single point cane. Patient/Family Education: Topic: Activity pacing/Energy conservation Assistive device/technique Discharge planning Gait Role of therapy Safety Transfers Discussed benefit of short, progressive bouts of ambulation Learner: patient Method: verbal and demonstration Barriers to Learning: none noted Outcome: needs practice, verbalized understanding and returned demonstration Team Communication: Communicated with RN re:pt status. ASSESSMENT: Physical Therapy Diagnosis: Patient presents with primary physical therapy diagnosis of sensory weighting/integration problem resulting in balance deficit with the following impairments: impaired balance, impaired gait and fatigue associated with Nonintractable headache, unspecified chronicity pattern, unspecified headache type [R51.9] Headache [R51.9]. The following activity limitations are noted, difficulty with: ambulation and tolerance to activityresulting in an inability for the patient to participate in pre-morbid lifestyle and family activities. Physical Therapy Prognosis: Patient will benefit from Physical Therapy to address above deficits and assist with d/c planning. Based on demonstrated mobility and lack of social support suggested [facility] as an option for the patient, however, she indicated that she wants to go home with home services. The patient does demonstrate good safety and judgement and was slow but steady during ambulation, as such, recommend home with home health Physical Therapy and Occupational Therapy. The patient has a RW but it is cumbersome in her living environment and so has been using a single point cane. Anticipate gains with tissue healing and progressive mobility in home setting with the assist of home healthPhysical Therapy. Will follow-up next week if she remains hospitalized. Short-Term Goals: NA Long-Term Goals: 1-2 weeks The patient will be able to perform bed mobility with modified independence assist demonstrating appropriate sequencing/motor planning. The patient will be able to ambulate with modified independence with no loss of balance on level surfaces 200 feet. The patient will ambulate with a gait speed of at least 0.6 m/s indicating limited community ambulation. The patient will report little/no dizziness after ambulation of 50 feet. PLAN: Treatment/Intervention: Physical therapy will be provided by physical therapist and/or physical therapist insurance sales assistant when medically appropriate. Frequency: daily for 2-3 times per week as determined by the patient's medical stability, toleranceto activity and progression of functional activities Intensity: 15-30 minutes per session Duration: During hospitalization Interventions may include:Therapeutic exercises, Therapeutic activities, Gait training, Neuromuscular re-education and Self-care/management Patient/family education: Discharge planning, Role of physical therapy/rehabilitation, Safety Further Data: gait speed Recommended Discharge Destination: Home alone Recommended Discharge Services: Home health physical therapy Recommended Equipment Needs: Patient has all necessary equipment Other recommendations: No other consults recommended at this time Pager: [phone] Bran Turner, PT 02/04/2020 7:40 * Jayden Eng MD - 02/04/2020 0426 EDT Neurosurgery Problems/ Right sided Headaches R blurry vision Procedures/ None this Admission 24/ Temp: [35.4 ??C (95.7 ??F)-36.9 ??C (98.4 ??F)] BP: (92-128)/(59-84) Heart Rate: [77 BPM-91 BPM] MRI obtained, no evidence of stroke Subjective/ Complains of continued right sided headaches over incisional area, no new deficits. Objective/ BP 92/59 (BP Cuff Location: Right arm, BP Patient Position: Lying left side) Pulse 91 Temp (!) 35.4 ??C (95.7 ??F) (Tympanic) Resp 16 Ht 165.1 cm (65) Wt (!) 103 kg (227 lb) SpO2 96% BMI 37.77 kg/m?? Awake, alert, conversant Speech fluent Oriented x4 UE Strength - LEFT Deltoid (C5) 5/5 Bicep (C5, 6) 5/5 Tricep (C6, 7) 5/5 Critical Care Specialist (C8) 5/5 UE Strength - RIGHT Deltoid (C5) 5/5 Bicep (C5, 6) 5/5 Tricep (C6, 7) 5/5 Critical Care Specialist (C8) 5/5 Sensation intact in bilateral upper extremities (C5/C6/C7/C8 distributions) LE Strength - LEFT Iliopsoas(L2, 3) 5/5 Quadricep (L3, 4) 5/5 Knee Flexor (L5, S1) 5/5 Gastroc (S1, S2) 5/5 Anterior Tibialis (L4, 5) 5/5 Extensor Hallicus (L5) 5/5 LE Strength - RIGHT Iliopsoas(L2, 3) 5/5 Quadricep (L3, 4) 5/5 Knee Flexor (L5, S1) 5/5 Gastroc (S1, S2) 5/5 Anterior Tibialis (L4, 5) 5/5 Extensor Hallicus (L5) 5/5 Sensation intact in bilateral lower extremities (L4/L5/S1 distributions) Incision clean/dry/intact Labs/ Recent Labs 02/03/20 1745 WBC 4.52 HGB 10.1* HCT 30.1* PLT 90* Recent Labs 02/03/20 1745 NA 141 K 3.9 CL 102 CO2 27 BUN 7* CREATININE 0.61 Recent Labs 02/03/20 1745 TROPONINI <0.034 Recent Labs 02/03/20 1745 PROTIME 12.3 PTT 32 INR 1.1 Assessment/ 59 y.o. female , w/ PMHx of cirrhosis, HTN, HLD, T2DM, and R MCA aneurysm s/p clipping who presented with uncontrolled right sided headaches and blurry vision admitted for workup and management of such, now status post MRI revealing no infarction. Plan/ Pain control Q4h neuro checks, vitals, I&O Regular diet PT/OT SCD/MAREN for DVT ppx Further plans pending discussion with neurosurgery attending this AM Jayden Eng MD Neurosurgery resident 02/04/2020 4:26 Page [id number] with questions documented in this encounter H&P Notes * Tj Sheffield MD - 02/03/2020 5713 EDT Neurosurgery H&P Problems/ Right sided Headaches R blurry vision Right vertebral peduncle infarction? Anticoagulation or Antiplatelet use: No HPI: Kallie Smart is a 59 y.o. female, w/ PMHx of cirrhosis, HTN, HLD, T2DM, right MCA aneurysm s/p clipping on 01/05/[address] Cobb, presenting to the ED for right sided headaches and weakness. Patient has been having the right sided headaches since the surgery and they have no resolved. She was contacted by the neurosurgery clinic about her repeat CT scan that may have showed increased size of her ventricles. Her symptoms revolve around her uncontrollable headaches, R vision bluriness and dizziness. All these symptoms have been bothering since before the surgery and has been more pronounce post surgery. Recently patient's sister has also notice that the patient drifts to the right as she walks. She presents to the ED mainly for the concern about her increased ventricles on herrepeat CT scan. No speech difficulty, no numbness/tingling, no focal weakness, no confusion, no sleepiness. All available outside records were reviewed. Did patient have a stroke or TIA? No PMH: Past Medical History: Diagnosis Date ??? Anxiety 12/24/2019 - well controlled ??? Arthritis 12/24/2019 - right hip and lower back ??? Balance disorder 12/24/2019 - i've always had that - affects vision and ability to drive ??? Blood in urine 12/24/2019 - comes and goes, per pt, not known why ??? Cerebral artery occlusion with cerebral infarction (HCC-CMS) 12/24/2019 in 2016 or 2017, had dysphasia and left side weakness and paralysis - gone now ??? Chest pain 12/24/2019 - with anxiety; to have EKG 12/30/2019 ??? Cirrhosis (HCC-CMS) 12/24/2019 alcholic cirrhosis, per pt. quit drinking in 2016 ??? Depression ??? Diabetes mellitus (HCC-CMS) ??? Diabetes mellitus, type 2 (HCC-CMS) 12/24/2019 cheks daily , usually mid 80's to about 118; had A1c done in November - was good but results not in computer ??? Edentulous 12/24/2019 lower ??? Exercise involving housework 12/24/2019 - does own cooking as well ??? GERD (gastroesophageal reflux disease) 12/24/2019 well controlled ??? History of general anesthesia ??? Hyperlipidemia ??? Hypertension 12/24/2019 well controlled per pt ??? Parathyroid disease ([facility]) 12/24/2019 pt is not sure if she has parthyroid disease, was on problem list ??? Patient unable to exercise 12/24/2019 - balance issues ??? Sleep apnea 12/24/2019 - no longer has CPAP, wasn't working properly, was removed and never replaced ??? Thyroid disease ??? TMJ syndrome ??? Wears dentures full denture top PSH: Past Surgical History: Procedure Laterality Date ??? HERNIA REPAIR ??? THYROIDECTOMY, PARTIAL 12/24/2019 - not sure which side ??? TOE AMPUTATION 12/24/2019 right middle toe Problem List: Patient Active Problem List Diagnosis ??? Cerebral aneurysm, nonruptured ??? Headache ??? Acute intractable headache, unspecified headache type ??? Aneurysm ([facility]) ROS: A 10 point ROS was completed and pertinent positives were mentioned in the HPI and ALL OTHERS ARE NEGATIVE FH: Family History Problem Relation Age of Onset ??? Cataract Mother ??? Diabetes Mother ??? High Cholesterol Mother ??? High Blood Pressure Mother ??? Hypertension Father ??? Heart Disease Father SH: Social History Substance and Sexual Activity Alcohol Use No ??? Frequency: Never Comment: stop drinking in 2016 - h/o cirrhosis Social History Tobacco Use Smoking Status Former Smoker ??? Packs/day: 0.50 ??? Years: 45.00 ??? Pack years: 22.50 ??? Types: Cigarettes ??? Quit date: 12/19/2019 ??? Years since quittin.1 Smokeless Tobacco Never Used ALL: Allergies Allergen Reactions ??? Bacitracin Nausea Only and Rash ??? Gramicidin D Nausea Only ??? Neomycin Nausea Only and Rash ??? Polymyxin B Nausea Only and Rash ??? Adhesive Medical tape causes itching and rash. Paper tape and tegaderm ar okay ??? Amoxicillin Can't remember reaction ??? Aspirin Nausea ??? Augmentin [Amoxicillin-Pot Clavulanate] Nausea Only nausea ??? Celecoxib Hives ??? Lactose GI upset and Other (See Comments) GI Upset ??? Lactose Intolerance (Lactase) ??? Neosporin [Jmibjyyk-Pvjpaizdweg-Pslmkqugy] Nausea and rash MEDS: (Not in a hospital admission) EXAM: Blood pressure 128/72, pulse 91, temperature 36.9 ??C (98.4 ??F), temperature source Temporal, resp. rate 20, height 165.1 cm (65), weight (!) 103 kg (227 lb), SpO2 98 %. GCS15 In c-collar no Alert, Attentive Verbalizes appropriately, fluently Phonation and articulation appropriate Naming intact pen and function write Repetition intact no ifs, ands, or buts Oriented to person, place, event Follows commands x4 Extraocular movements intact Pupils equal, round, reactive Face symmetric at rest and with activation, complete eye closure bilaterally Facial sensation intact in V1-3 distributions bilaterally Tongue midline Shoulder shrug 5/5 UE Strength - LEFT Deltoid (C4,C5) 5/5 Bicep (C5, 6) 5/5 Tricep (C6, 7) 5/5 Critical Care Specialist (C8) 5/5 Interrosei (T1) 5/5 Ext. Carpi Radialis (C6) 5/5 Wrist flexor (C7) 5/5 UE Strength - RIGHT Deltoid (C4,C5) 5/5 Bicep (C5, 6) 5/5 Tricep (C6, 7) 5/5 Critical Care Specialist (C8) 5/5 Interrosei (T1) 5/5 Ext. Carpi Radialis (C6) 5/5 Wrist flexor (C7) 5/5 No drift Sensation intact in bilateral upper extremities (C5/C6/C7/C8 distributions) LE Strength - LEFT Iliopsoas(L2, 3) 5/5 Quadricep (L3, 4) 5/5 Knee Flexor (L5, S1) 5/5 Gastroc (S1, S2) 5/5 Anterior Tibialis (L4, 5) 5/5 Extensor Hallicus (L5) 5/5 LE Strength - RIGHT Iliopsoas(L2, 3) 5/5 Quadricep (L3, 4) 5/5 Knee Flexor (L5, S1) 5/5 Gastroc (S1, S2) 5/5 Anterior Tibialis (L4, 5) 5/5 Extensor Hallicus (L5) 5/5 Reflex Patellar 2/4 No babinski No clonus Sensation intact in bilateral lower extremities (L4/L5/S1 distributions) HEENT: no scalp laceration, Right temporal surgical sutures in place, no fluid draining from nares or ears No long bone deformities No rashes or lesions on any exposed areas LABS: Laboratory studies independently reviewed. WBC/Hgb/Hct/Plts: 4.52/10.1/30.1/90 (02/02 1745) Na/K/Cl/CO2/BUN/Creat/C Bili/UC Bili:141/3.9/102/27/7/0.61/--/-- (02/02 1745) PT/INR/PTT: 12.3/1.1/32 (02/02 1745) IMAGING: Imaging studies independently reviewed. PRELIMINARY RESIDENT REPORT EXAM: CT HEAD WO CONTRAST ?? HISTORY: Cerebral hemorrhage suspected ?? TECHNIQUE: CT head without contrast. Structured report code: [id number] ?? COMPARISON: CT angiogram head and neck from 01/19/2020 ?? FINDINGS: PARENCHYMA: There is hypoattenuation of the right middle cerebral peduncle which is new and concerning for acute infarction. There is no evidence of intraparenchymal hemorrhage. No mass or midline shift. Patchy hypoattenuation of the subcortical periventricular white matter is likely sequelae of chronic microangiopathic disease. Diffuse parenchymal volume loss. ?? EXTRA-AXIAL SPACES: Small extradural collection adjacent to prior right frontal craniotomy. No extra-axial mass. ?? VENTRICULAR SYSTEM: No intraventricular hemorrhage No obstructive hydrocephalus. ?? VESSELS: Clips are present in the right anterior middle cerebral fossa consistent with prior MCA clipping. No evidence of adjacent hemorrhage. Limited evaluation without IV contrast. Normal density in the dural venous sinuses. ?? BONES: There are postsurgical changes from prior right frontal craniotomy. No concerning lesions. No evidence of fracture. ?? ORBITS: No significant abnormality. ?? PARANASAL SINUSES/MASTOID AIR CELLS: Predominantly clear. ?? EXTRACRANIAL SOFT TISSUES: Unremarkable aside from post surgical changes to the right frontal scalp. ?? IMPRESSION 1. Hypoattenuation of the right vertebral peduncle concerning for age- indeterminate infarction, however may also be artifactual given beam hardening from adjacent temporal bones. An MR could be obtained for further evaluation. 2. Patient is status post right MCA aneurysm clipping without evidence of adjacent intraparenchymalor subarachnoid hemorrhage. Small extradural collection along the right frontal bone is unchanged from 3 weeks prior. 3. Postsurgical changes to the right frontal bone. Assessment: 59 y.o. female , w/ PMHx of cirrhosis, HTN, HLD, T2DM, and R MCA aneurysm s/p clipping discovered to have uncontrolled right sided headaches, blurry vision, and some hypo-attenuation of the right vertebral peduncle concerning for age- indeterminate infarction. On my exam patient is GCS15 a disorganized historian with no focal neurologic deficits noted. Will need further imaging to assess the potential infarct of her right vertebral peduncle. Plan: Head MRI WO contrast Admit to Neurosurgery (Dr. Castaneda) To floor Pain control Q4h neuro checks, vitals, I&O Regular diet PT/OT SCD/MAREN for DVT ppx Hold anticoagulants, antiplatelet agents Patient's status and plan discussed with senior neurosurgery resident Dr. Rogelio Ellison. TJ SHEFFIELD MD Neurosurgery resident 02/03/2020 18:59 Page [id number] with questions documented in this encounter ED Notes * Luis A Arias - 02/03/2020 1904 EDT TCALL: KALLIE SMART. [id number]. PT REFERRED BY OUT PT NEURO SURGERY FOR NOT DOING WELL S/P CRANIOTOMY ON JAN 04. ([facility]) * Hoa Harvey MA - 02/03/2020 1745 EDT Blood drawn via saline lock per protocol, blue, green and purple tube(s) sent to lab per order. * Daylin Jackson RN - 02/03/2020 1721 EDT Pt back from cat scan, awaiting results. Neurosurgery to be called by Dr. Boyd. * Jed Boyd MD - 02/03/2020 1632 EDT This patient received an evaluation and medical screening exam for emergent medical conditions at the [facility] on 02/03/2020 Scribe attestation: This documentation is recorded by Linda Masterson acting as Scribe under the direction and presence of Jed Boyd MD. Jed Boyd MD: I personally performed the services recorded by the scribe in my presence. I confirm the scribe's documentation has been reviewed by me to accurately and completely record my work, treatment, procedures, and medical decision making. HPI Kallie Smart is a 59 y.o. female with PMH including cirrhosis, HTN, HLD, T2DM with neuopathy,obesity, tobacoo abuse, and right MCA annerysm s/p surgical clipping on 01/05/20, who presents to the ED for extremity weakness. Patient endorses dizziness and headaches which she characterizes as head pressure with onset of 3-4 weeks. She has associated symptoms of unsteady gait and haziness in theright visual field. With ambulation, she feels as if she is being pulled to her right side. Patientreports her symptoms are unchanged from surgical clipping of her MCA aneurysm on 01/04. She does notthink her symptoms are improving nor worsening. Patient had a telemedicine appointment with her Neurosurgeon today, 02/02 where she discussed her ongoing symptoms and was advised to go to the ED for further evaluation. She denies chills, fevers, or speech changes. She states she is using chantax and is not using tobacco at this time. History was provided by: patient and medical records Patient's pertinent PMH, FH, SH were reviewed and updated PRN. ROS Review of Systems Constitutional: Negative for chills and fever. Positive for unsteady gait. Eyes: Positive for visual disturbance. Positive for haziness in right visual field. Neurological: Positive for dizziness, weakness and headaches. Negative for speech difficulty. All other systems reviewed and are negative. Physical Exam Vital Signs Vitals Reassessment?: Yes Temp: 36.9 ??C (98.4 ??F) Temp src: Temporal Pulse: 91 Resp: 20 SpO2: 98 % BP: 128/72 BP MAP: 86 mm Hg BP Device: BP Machine Physical Exam Vitals signs and nursing note reviewed. Constitutional: General: She is not in acute distress. HENT: Head: Atraumatic. Right Ear: External ear normal. Left Ear: External ear normal. Nose: Nose normal. Eyes: General: No scleral icterus. Extraocular Movements: Extraocular movements intact. Conjunctiva/sclera: Conjunctivae normal. Pupils: Pupils are equal, round, and reactive to light. Comments: Slight droop of the right eye. Neck: Musculoskeletal: Normal range of motion and neck supple. Vascular: No JVD. Cardiovascular: Rate and Rhythm: Normal rate and regular rhythm. Heart sounds: Normal heart sounds. Pulmonary: Effort: Pulmonary effort is normal. No respiratory distress. Breath sounds: Normal breath sounds. Abdominal: General: Bowel sounds are normal. There is no distension. Palpations: Abdomen is soft. Tenderness: There is no abdominal tenderness. There is no guarding. Musculoskeletal: Normal range of motion. General: No tenderness. Lymphadenopathy: Cervical: No cervical adenopathy. Skin: General: Skin is warm and dry. Capillary Refill: Capillary refill takes less than 2 seconds. Findings: No rash. Neurological: Mental Status: She is alert and oriented to person, place, and time. Cranial Nerves: No cranial nerve deficit. Motor: No abnormal muscle tone. Coordination: Coordination normal. Comments: Visual field testing is compromised by right eye ptosis. FTN testing showed right sides dysmetria. Psychiatric: Behavior: Behavior normal. Results Imaging obtained was reviewed and independently interpreted: The patient had a Head CT which was significant for hypoattenuation of the right vertebral peduncle concerning for age-indeterminate infarction, however may also be artifactual given beam hardening from adjacent temporal bones. An MR could be obtained for further evaluation. Patient is status post right MCA aneurysm clipping without evidence of adjacent intraparenchymal or subarachnoid hemorrhage. Small extradural collection along theright frontal bone is unchanged from 3 weeks prior. Postsurgical changes to the right frontal bone.Patient had CT that was obtained, reviewed, and interpreted by myself along with a radiologist. Please see radiology report for further details. Patient had labs that were reviewed independently by myself, significant for no abnormal findings. Labs Reviewed COMPLETE BLOOD COUNT AND DIFFERENTIAL - Abnormal Result Value Status WBC 4.52 Final RBC 3.54 (*) Final Hemoglobin 10.1 (*) Final HCT 30.1 (*) Final MCV 85 Final MCH 28.5 Final MCHC 33.6 Final RDW-CV 14.0 Final RDW-SD 43.4 Final PLT 90 (*) Final MPV 10.2 Final Neutrophils 53.8 Final Lymphocytes 33.8 Final Monocytes 8.0 Final Eosinophils 3.3 Final Basophils 0.4 Final Immature Grans 0.7 Final Absolute Neutrophils 2.43 Final Absolute Lymphocytes 1.53 Final Absolute Monocytes 0.36 Final Absolute Eosinophils 0.15 Final Absolute Basophils 0.02 Final Absolute Immature Grans 0.03 Final Type of Differential: Auto Final BASIC METABOLIC PANEL (BMP) - Abnormal Sodium 141 Final Potassium 3.9 Final Chloride 102 Final CO2 Total 27 Final Glucose 105 (*) Final Calcium 9.4 Final Calculated Calcium 9.0 Final BUN 7 (*) Final Creatinine 0.61 Final eGFR 100 Final PROTIME - Normal I.N.R. 1.1 Final Pro Time 12.3 Final Narrative: Moderate Intensity Coumadin INR = 2.0-3.0 Adjustments in anticoagulant therapy dose should be based on the INR and NOT on the Protime. PTT - Normal PTT 32 Final TROPONIN I - Normal Troponin I <0.034 Final Narrative: The results of this assay can be falsely lowered due to the consumption of Biotin. HN LAB CBC SMEAR REVIEW Differential Comment Final Value: Slide was examined by a technologist to verify the WBC and/or platelet count. Procedures Procedures None ED Course/Medical Decision Making A medical screening was performed. Headache and possible new right-sided dysmetria s/p recent MCA clipping. 1723: Reviewed CT head which shows no bleed but possible infarct in right cerebellar pedicular. Neurosurgery paged. 1750: Neurosurgery is amenable to patient evaluation at bedside. 1900: Discussed case with Neurosurgery, who is amenable to patient admission. At this time, the patient was hemodynamically stable for admission to Neurosurgery under the care of Dr. Antoine Castaneda with Head MRI pending. Clinical Impression Final diagnoses: Nonintractable headache, unspecified chronicity pattern, unspecified headache type Disposition Admitted The patient's pain was managed to an adequate level weighing risk vs. benefit of further medications. Upon departure from the Emergency Department, the patient's pain was 0 on a zero to ten scale. Any further pain treatment will be at the discretion of the provider following up with the patient based on their clinical assessment. Condition at departure from the Emergency Department: Stable PCP: Grant Lindsey No follow-up provider specified. documented in this encounter Miscellaneous Notes * Plan of Care - Josie Cherry RN - 02/04/2020 1416 EDT Nursing Discharge Note D: Patient noted with discharge orders to: home with Home Health PT and SW. A: Prescriptions e-scripted. Reviewed discharge instructions and prescriptions with Patient IV d/c'd. Belongings collected and sent home with patient. Report called to Dennise at [facility]. R: Patient verbalized understanding of discharge instructions and denied further questions. Pt. Left via wheelchair with patient support. JOSIE CHERRY RN 02/04/2020 14:19 * Plan of Care - Lara Calderon RN - 02/03/2020 5923 EDT Data: Pt admitted to [place] [address] with intractable headache. Action: Assessment completed. Pt oriented to room, floor and plan of care. Response: Pt stable at this time. Pt verbalizes understanding of plan of care. LARA CALDERON RN 02/03/2020 22:53 documented in this encounter Plan of Treatment Scheduled Referrals Name Type Priority Associated Diagnoses Orde r Schedule AMB CONS/FOLLOW UP HOME HEALTH SERVICES Outpatient Referral Routine Nonintractable headache, unspecified chronicity pattern, unspecified headache type Cerebral aneurysm, nonruptured Ordered: 02/04/2020 documented as of this encounter Procedures Procedure Name Priority Date/Time Associated Diagnosis Comments POCT GLUCOSE, INTERFACED Routine 02/04/2020 10:53 EDT PTT Routine 02/04/2020 7:51 EDT PROTIME Routine 02/04/2020 7:51 EDT COMPLETE BLOOD COUNT AND DIFFERENTIAL Routine 02/04/2020 7:51 EDT BUN Routine 02/04/2020 7:51 EDT MAGNESIUM Routine 02/04/2020 7:51 EDT CREATININE Routine 02/04/2020 7:51 EDT CALCIUM Routine 02/04/2020 7:51 EDT ELECTROLYTES Routine 02/04/2020 7:51 EDT MR HEAD WO CONTRAST STAT 02/04/2020 0 :20 EDT POCT GLUCOSE, INTERFACED Routine 02/03/2020 21:41 EDT TYPE AND SCREEN Routine 02/03/2020 20:52 EDT HN LAB CBC SMEAR REVIEW Today 02/03/2020 17:45 EDT TROPONIN I STAT 02/03/2020 17:45 EDT PTT STAT 02/03/2020 17:45 EDT PROTIME STAT 02/03/2020 17:45 EDT COMPLETE BLOOD COUNT AND DIFFERENTIAL STAT 02/03/2020 17:45 EDT BASIC METABOLIC PANEL (BMP) STAT 02/03/2020 17:[address] HEAD WO CONTRAST STAT 02/03/2020 1 7:16 EDT documented in this encounter Results * (ABNORMAL) POCT GLUCOSE, INTERFACED (02/04/2020 10:53 EDT) Glucose, POC 158(H) 70 - 100 mg/dL 02/04/2020 10[facility] manufacturing cost estimator ID [id number] 02/04/2020 10:54 T [facility] HN LAB POC COMMENT (GLUCOSE) Test Performed by Nursing Services 02/04/2020 10:54 [facility] Blood CAPILLARY BLOOD / Unknown 02/04/2020 10:53 EDT 02/04/2020 10:54 EDT Antoine Castaneda MD POINT OF CARE TEST ORDERABLES Performing Organization Address City/State/[facility] Co de Phone Number [facility] [address] [place] [address] * (ABNORMAL) COMPLETE BLOOD COUNT AND DIFFERENTIAL (02/04/2020 7:51 EDT) WBC 3.27(L) 4.00 - 12.40 K/cmm 02/04/2020 8:34 [facility] RBC 3.63(L) 3.86 - 5.04 M/cmm 02/04/2020 8:34 [facility] Hemoglobin 10.5(L) 11.6 - 15.2 gm/dL 02/04/2020 8:34 [facility] HCT 30.9(L) 34.9 - 44.4 % 02/04/2020 8:34 [facility] MCV 85 81 - 98 fl 02/04/2020 8:34 [facility] MCH 28.9 26.7 - 33.3 pg 02/04/2020 8:34 [facility] MCHC 34.0 32.1 - 35.9 gm/dL 02/04/2020 8:34 [facility] RDW-CV 14.3 <14.7 % 02/04/2020 8:34 [facility] RDW-SD 43.9 <50.4 fl 02/04/2020 8:34 [facility] PLT 84(L) 141 - 377 K/cmm 02/04/2020 8:34 [facility] MPV 10.0 9.5 - 12.7 fl 02/04/2020 8:34 [facility] % Neutrophils 55.4 % 02/04/2020 8:34 [facility] % Lymphocytes 32.4 % 02/04/2020 8:34 [facility] % Monocytes 7.3 % 02/04/2020 8:34 [facility] % Eosinophils 4.0 % 02/04/2020 8:34 [facility] % Basophils 0.3 % 02/04/2020 8:34 [facility] % Immature Grans 0.6 % 02/04/20 20 8:34 [facility] Absolute Neutrophils 1.81(L) 2.20 - 8.85 K/cmm 02/04/2020 8:34 [facility] Absolute Lymphocytes 1.06(L) 1.09 - 3.30 K/cmm 02/04/2020 8:34 [facility] Absolute Monocytes 0.24 0.10 - 0.80 K/cmm 02/04/2020 8:34 [facility] Absolute Eosinophils 0.13 0.03 - 0.61 K/cmm 02/04/2020 8:34 [facility] ABS Basophils 0.01 0.01 - 0.11 K/cmm 02/04/2020 8:34 [facility] Absolute Immature Grans 0.02 0.00 - 0.06 K/cmm 02/04/2020 8:34 [facility] Type of Differential: Auto 02/04/2020 8:34 [facility] Blood VENOUS BLOOD / Unknown Venipuncture / Unknown 02/04/2020 7:51 EDT 02/04/2020 8:25 EDT Jayden Eng MD PACKAGES & DNA PROBE ORDERABLES [facility] [address] [place] [address] * CREATININE (02/04/2020 7:51 EDT) Creatinine 0.59 0.52 - 1.04 mg/dL 02/04/2020 8:57 [facility] eGFR 101 >60 mL/min/1.7 3m2 02/04/2020 8:57 EDT [facility] Comment:eGFR calculated farhana mcclendon CKD-EPI equation for non- Americans. Multiply eGFR by 1.16 for patients. Blood VENOUS BLOOD / Unknown Venipuncture / Unknown 02/04/2020 7:51 EDT 02/04/2020 8:20 EDT Jayden Eng MD CHEMISTRY & BLO OD GAS ORDERABLES Performing Organization Address City/[facility]/ZIP Co de Phone Number [facility] [address] [place] [address] * (ABNORMAL) BUN (02/04/2020 7:51 EDT) BUN 5(L) 10 - 26 mg/dL 02/04/2020 8:57 EDT [facility] Blood VENOUS BLOOD / Unknown Venipuncture / Unknown 02/04/2020 7:51 EDT 02/04/2020 8:20 EDT Jayden Eng MD CHEMISTRY & BLO OD GAS ORDERABLES Performing Organization Address City/[facility] Co de Phone Number [facility] [address] [place] [address] * ELECTROLYTES (02/04/2020 7:51 EDT) Sodium 141 136 - 145 mEq/L 02/04/2020 8:57 EDT [facility] Potassium 4.1 3.5 - 5.0 mEq/L 02/04/2020 8:57 EDT [facility] Chloride 102 96 - 110 mEq/L 02/04/2020 8:57 EDT [facility] CO2 Total 23 22 - 32 mEq/L 02/04/2020 8:57 EDT [facility] Blood VENOUS BLOOD / Unknown Venipuncture / Unknown 02/04/2020 7:51 EDT 02/04/2020 8:20 EDT Jayden Eng MD CHEMISTRY & BLO OD GAS ORDERABLES Performing Organization Address [facility] Co de Phone Number [facility] [address] [place] [address] * PROTIME (02/04/2020 7:51 EDT) I.N.R. 1.1 0.9 - 1.1 Ratio 02/04/2020 8:53 EDT [facility] Pro Time 13.1 10.3 - 13.4 secs 02/04/2020 8:53 EDT [facility] Blood VENOUS BLOOD / Unknown Venipuncture / Unknown 02/04/2020 7:51 EDT 02/04/2020 8:26 EDT Narrative [facility] - 02/04/2020 8:53 EDT Moderate Intensity Coumadin INR = 2.0-3.0 Adjustments in anticoagulant therapy dose should be based on the INR and NOT on the Protime. Jayden Eng MD HEMATOLOGY & PF 4 ORDERABLES Performing Organization Address [facility]/ZIP Co de Phone Number [facility] [address] [place] [address] * PTT (02/04/2020 7:51 EDT) Pathologist [facility] PTT 34 26 - 37 secs 02/04/2020 8:53 EDT [facility] Blood VENOUS BLOOD / Unknown Venipuncture / Unknown 02/04/2020 7:51 EDT 02/04/2020 8:26 EDT Jayden Eng MD HEMATOLOGY & PF 4 ORDERABLES Performing Organization Address [facility] de Phone Number [facility] [address] [place] [address] * MAGNESIUM (02/04/2020 7:51 EDT) Magnesium 1.9 1.7 - 2.8 mg/dL 02/04/2020 8:57 EDT [facility] Blood VENOUS BLOOD / Unknown Venipuncture / Unknown 02/04/2020 7:51 EDT 02/04/2020 8:20 EDT Jayden Eng MD CHEMISTRY & BLO OD GAS ORDERABLES Performing Organization Address City/[facility]/ZIP Co de Phone Number [facility] [address] [place] [address] * CALCIUM (02/04/2020 7:51 EDT) Calcium 9.3 8.5 - 10.5 mg/dL 02/04/2020 8:57 EDT [facility] Calculated Calcium 9.1 8.5 - 10.5 mg/dL 02/04/2020 8:57 EDT [facility] Blood VENOUS BLOOD / Unknown Venipuncture / Unknown 02/04/2020 7:51 EDT 02/04/2020 8:20 EDT Jayden Eng MD CHEMISTRY & BLO OD GAS ORDERABLES Performing Organization Address [facility] Co de Phone Number [facility] [address] [place] [address] * MR HEAD WO CONTRAST (02/04/2020 0:20 EDT) Anatomical Region Laterality Modality Head Magnetic Resonan ce 02/04/2020 7:36 EDT Impressions 02/04/2020 7:36 EDT 1. No acute intracranial abnormality identified. 2. 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 3. Chronic findings as described above. I have personally reviewed the images and the above interpretation and agree with the findings. Narrative 02/04/2020 7:36 EDT MR HEAD WO CONTRAST 02/03/2020 11:20 PM HISTORY: Stroke, follow up; suspected stroke on head CT. TECHNIQUE: MRI head without contrast. COMPARISON: Head CT 02/03/[address] and CTA head and neck 720 from [facility]. FINDINGS: PARENCHYMA: No infarction. No parenchymal hemorrhage. No mass or midline shift. Cerebral cortical volume loss, greater than expected for patient age. Scattered punctate foci of T2 FLAIR hyperintense signal within the cerebral hemispheric white matter, the number slightly greater than expected for patient age. No T2 FLAIR hyperintense lesions in the cerebellum, brainstem or corpus callosum. EXTRA-AXIAL SPACES: Thin extra-axial fluid collection deep to the craniotomy flap over the right frontal convexity. Postsurgical thickening of the dura along the right cerebral convexity. VENTRICLES: Normal caliber. VESSELS: Susceptibility from right middle cerebral artery aneurysm clip. ORBITS: Unremarkable. PARANASAL SINUSES/MASTOID AIR CELLS: Predominantly clear. BONES: Prior right pterional craniotomy. EXTRACRANIAL SOFT TISSUES: Post surgical changes are present in the right frontal temporal region. Procedure Note Sona Mcmahan MD - 02/04/2020 MR HEAD WO CONTRAST 02/03/2020 11:20 PM HISTORY: Stroke, follow up; suspected stroke on head CT. TECHNIQUE: MRI head without contrast. COMPARISON: Head CT 02/03/[address] and CTA head and neck 720 from [facility]. FINDINGS: PARENCHYMA: No infarction. No parenchymal hemorrhage. No mass or midline shift.Cerebral cortical volume loss, greater than expected for patient age.Scattered punctate foci of T2 FLAIR hyperintense signal within thecerebral hemispheric white matter, the number slightly greater thanexpected for patient age. No T2 FLAIR hyperintense lesions in thecerebellum, brainstem or corpus callosum. EXTRA-AXIAL SPACES: Thin extra-axial fluid collection deep to the craniotomy flap over theright frontal convexity. Postsurgical thickening of the dura along theright cerebral convexity. VENTRICLES: Normal caliber. VESSELS: Susceptibility from right middle cerebral artery aneurysm clip. ORBITS: Unremarkable. PARANASAL SINUSES/MASTOID AIR CELLS: Predominantly clear. BONES: Prior right pterional craniotomy. EXTRACRANIAL SOFT TISSUES: Post surgical changes are present in the right frontal temporal region. IMPRESSION 1. No acute intracranial abnormality identified. 2. Postsurgical changes status post right middle cerebral artery aneurysmclipping. 3. Chronic findings as described above. I have personally reviewed the images and the above interpretation andagree with the findings. Jayden Eng MD G MRI ORDERAB LES * (ABNORMAL) POCT GLUCOSE, INTERFACED (02/03/2020 21:41 EDT) Glucose, POC 165(H) 70 - 100 mg/dL 02/03/2020 21:41 EDT [facility] manufacturing cost estimator ID [id number] 02/03/2020 21:41 EDT [facility] HN LAB POC COMMENT (GLUCOSE) Test Performed by Nursing Services 02/03/2020 21:41 EDT [facility] Blood CAPILLARY BLOOD / Unknown 02/03/2020 21:41 EDT 02/03/2020 21:41 EDT Jayden Eng MD POINT OF CARE T EST ORDERABLES Performing Organization Address [facility] Co de Phone Number [facility] [address] [place] [address] * TYPE AND SCREEN (02/03/2020 20:52 EDT) ABO O 02/03/2020 21:40 EDT [facility] Rh Factor Positive 02/03/2020 21:40 EDT [facility] Antibody Screen Negative 02/03/2020 21:40 EDT [facility] Specimen Expires: 02/06/2020 @ 23:59 02/03/2020 21:40 EDT [facility] Blood VENOUS BLOOD / Unknown Venipuncture / Unknown 02/03/2020 20:52 EDT 02/03/2020 20:59 EDT Jayden Eng MD BLOOD BANK TEST S Performing Organization Address [facility] Co de Phone Number [facility] [address] [facility] [place] [address] * HN LAB CBC SMEAR REVIEW (02/03/2020 17:45 EDT) Differential Comment Slide was examined by a technologist to verify the WBC and/or platelet count. 02/03/2020 18:32 EDT [facility] Blood VENOUS BLOOD / Unknown Venipuncture / Unknown 02/03/2020 17:45 EDT 02/03/2020 17:48 EDT Jed Boyd MD HEMATOLOGY & PF4 OR DERABLES Performing Organization Address City/[facility]/ZIP Co de Phone Number [facility] [address] [place] [address] * TROPONIN I (02/03/2020 17:45 EDT) Troponin I (ng/mL) <0.034 <0.034 ng/mL 02/03/2020 18:23 EDT [facility] Blood VENOUS BLOOD / Unknown Venipuncture / Unknown 02/03/2020 17:45 EDT 02/03/2020 17:48 EDT Narrative [facility] - 02/03/2020 18:23 EDT The results of this assay can be falsely lowered due to the consumption of Biotin. Jed Boyd MD CHEMISTRY & BLOOD G ORDERABLES Performing Organization Address City/[facility]/ZIP Co de Phone Number [facility] [address] [place] [address] * PTT (02/03/2020 17:45 EDT) PTT 32 26 - 37 secs 02/03/2020 18:33 EDT [facility] Blood VENOUS BLOOD / Unknown Venipuncture / Unknown 02/03/2020 17:45 EDT 02/03/2020 17:48 EDT Jed Boyd MD HEMATOLOGY & PF4 OR DERABLES Performing Organization Address [facility] Co de Phone Number [facility] [address] [place] [id number] * PROTIME (02/03/2020 17:45 EDT) I.N.R. 1.1 0.9 - 1.1 Ratio 02/03/2020 18:33 EDT [facility] Pro Time 12.3 10.3 - 13.4 secs 02/03/2020 18:33 EDT [facility] Blood VENOUS BLOOD / Unknown Venipuncture / Unknown 02/03/2020 17:45 EDT 02/03/2020 17:48 EDT Narrative [facility] - 02/03/2020 18:33 EDT Moderate Intensity Coumadin INR = 2.0-3.0 Adjustments in anticoagulant therapy dose should be based on the INR and NOT on the Protime. Jed Boyd MD HEMATOLOGY & PF4 OR DERABLES [facility] [address] [place] [address] * (ABNORMAL) BASIC METABOLIC PANEL (BMP) (02/03/2020 17:45 EDT) Sodium 141 136 - 145 mEq/L 02/03/2020 18:13 [facility] Potassium 3.9 3.5 - 5.0 mEq/L 02/03/2020 18:13 [facility] Comment:Slight hemolysis colt ntified, interpret with caution as hemolysis will elevate potassium result. Chloride 102 96 - 110 mEq/L 02/03/2020 18:13 [facility] CO2 Total 27 22 - 32 mEq/L 02/03/2020 18:13 [facility] Glucose 105(H) 70 - 100 mg/dL 02/03/2020 18:13 [facility] Calcium 9.4 8.5 - 10.5 mg/dL 02/03/2020 18:13 [facility] Calculated Calcium 9.0 8.5 - 10.5 mg/dL 02/03/2020 18:13 [facility] Comment:Slight hemolysis colt ntified, interpret with caution as results may be affected due to hemolysis. BUN 7(L) 10 - 26 mg/dL 02/03/2020 18:13 [facility] Comment: Slight hemolysis identified, interpret with caution as results may be affected due to hemolysis. Creatinine 0.61 0.52 - 1.04 mg/dL 02/03/2020 18:13 [facility] eGFR 100 >60 mL/min/1.7 3m2 02/03/2020 18:13 [facility] Comment:eGFR calculated farhana g CKD-EPI equation for non- Americans. Multiply eGFR by 1.16 for patients. Blood VENOUS BLOOD / Unknown Venipuncture / Unknown 02/03/2020 17:45 EDT 02/03/2020 17:48 EDT Jed Boyd MD CHEMISTRY & BLOOD G ORDERABLES [facility] [address] [place] [address] * (ABNORMAL) COMPLETE BLOOD COUNT AND DIFFERENTIAL (02/03/2020 17:45 EDT) WBC 4.52 4.00 - 12.40 K/cmm 02/03/2020 18:32 [facility] RBC 3.54(L) 3.86 - 5.04 M/cmm 02/03/2020 18:32 [facility] Hemoglobin 10.1(L) 11.6 - 15.2 gm/dL 02/03/2020 18:32 [facility] HCT 30.1(L) 34.9 - 44.4 % 02/03/2020 18:32 [facility] MCV 85 81 - 98 fl 02/03/2020 18:32 [facility] MCH 28.5 26.7 - 33.3 pg 02/03/2020 18:32 [facility] MCHC 33.6 32.1 - 35.9 gm/dL 02/03/2020 18:32 [facility] RDW-CV 14.0 <14.7 % 02/03/2020 18:32 [facility] RDW-SD 43.4 <50.4 fl 02/03/2020 18:32 [facility] PLT 90(L) 141 - 377 K/cmm 02/03/2020 18:32 [facility] MPV 10.2 9.5 - 12.7 fl 02/03/2020 18:32 [facility] % Neutrophils 53.8 % 02/03/2020 18:32 [facility] % Lymphocytes 33.8 % 02/03/2020 18:32 [facility] % Monocytes 8.0 % 02/03/2020 18:32 [facility] % Eosinophils 3.3 % 02/03/2020 18:32 [facility] % Basophils 0.4 % 02/03/2020 18:32 EDT [facility] % Immature Grans 0.7 % 02/03/20 20 18:32 [facility] Absolute Neutrophils 2.43 2.20 - 8.85 K/cmm 02/03/2020 18:32 T [facility] Absolute Lymphocytes 1.53 1.09 - 3.30 K/cmm 02/03/2020 18:32 [facility] Absolute Monocytes 0.36 0.10 - 0.80 K/cmm 02/03/2020 18:32 EDT [facility] Absolute Eosinophils 0.15 0.03 - 0.61 K/cmm 02/03/2020 18:32 [facility] ABS Basophils 0.02 0.01 - 0.11 K/cmm 02/03/2020 18:32 [facility] Absolute Immature Grans 0.03 0.00 - 0.06 K/cmm 02/03/2020 18:32 [facility] Type of Differential: Auto 02/03/2020 18:32 [facility] Blood VENOUS BLOOD / Unknown Venipuncture / Unknown 02/03/2020 17:45 EDT 02/03/2020 17:48 EDT Jed Boyd MD PACKAGES & DNA PROB E ORDERABLES Performing Organization Address City/State/[facility] Co de Phone Number [facility] [address] [place] [address] * CT HEAD WO CONTRAST (02/03/2020 17:16 EDT) Anatomical Region Laterality Modality Head Computed Tomogra phy 02/04/2020 10:2 3 EDT Impressions 02/04/2020 10:23 EDT No acute intracranial hemorrhage. Questionable hypodensity in the right thalamus and cerebral peduncle may represent artifact or an evolving infarct. Further evaluation with MRI suggested. I have personally reviewed the images and the above interpretation and agree with the findings. Narrative 02/04/2020 10:23 EDT EXAM: CT HEAD WO CONTRAST HISTORY: Cerebral hemorrhage suspected ?? TECHNIQUE: CT head without contrast. Structured report code: NR.CT01 COMPARISON: CTA head and neck 01/19/2020 FINDINGS: PARENCHYMA: Questionable region of hypoattenuation in the right thalamus and right cerebral peduncle. No acute parenchymal hemorrhage. No parenchymal mass lesion or midline shift. Redemonstrated diffuse parenchymal volume loss and nonspecific white matter changes. EXTRA-AXIAL SPACES: Small amount of fluid subjacent to the right frontal craniotomy. No large extra- axial collection. No extra-axial mass lesion. VENTRICULAR SYSTEM: No acute intraventricular hemorrhage. No obstructive hydrocephalus. VESSELS: Calcifications are present in the carotid siphons. Aneurysm clip noted along the right M1 segment. BONES: Unremarkable aside from surgical changes. No concerning lesions. No acute fracture. ORBITS: No significant abnormality. PARANASAL SINUSES/MASTOID AIR CELLS: Predominantly clear. EXTRACRANIAL SOFT TISSUES: Unremarkable aside from surgical changes. Procedure Note Rogelio Bowers MD - 02/04/2020 EXAM: CT HEAD WO CONTRAST HISTORY: Cerebral hemorrhage suspected TECHNIQUE: CT head without contrast. Structured report code: [id number].CT01 COMPARISON: CTA head and neck 01/19/2020 FINDINGS: PARENCHYMA: Questionable region of hypoattenuation in the right thalamus and rightcerebral peduncle. No acute parenchymal hemorrhage. No parenchymal masslesion or midline shift. Redemonstrated diffuse parenchymal volume lossand nonspecific white matter changes. EXTRA-AXIAL SPACES: Small amount of fluid subjacent to the right frontal craniotomy. No largeextra- axial collection. No extra-axial mass lesion. VENTRICULAR SYSTEM: No acute intraventricular hemorrhage. No obstructive hydrocephalus. VESSELS: Calcifications are present in the carotid siphons. Aneurysm clip notedalong the right M1 segment. BONES: Unremarkable aside from surgical changes. No concerning lesions. No acutefracture. ORBITS: No significant abnormality. PARANASAL SINUSES/MASTOID AIR CELLS: Predominantly clear. EXTRACRANIAL SOFT TISSUES: Unremarkable aside from surgical changes. IMPRESSION No acute intracranial hemorrhage. Questionable hypodensity in the right thalamus and cerebral peduncle mayrepresent artifact or an evolving infarct. Further evaluation with MRIsuggested. I have personally reviewed the images and the above interpretation andagree with the findings. Jed Boyd MD IMG CT ORDERABLES documented in this encounter Visit Diagnoses Diagnosis Nonintractable headache, unspecified chronicity pattern, unspecified headache type- Primary Nonintractable headache, unspecified chronicity pattern, unspecified headache type Cerebral aneurysm, nonruptured documented in this encounter Administered Medications Inactive Administered Medications - up to 3 most recent administrations Medication Order MAR Action Action Date Dose Rate Site acetaminophen (TYLENOL) 500 mg tablet 1 dose, Starting on Koki 02/03/20 at 1925, Until Fri02/04/20 at 1616 acetaminophen (TYLENOL) tablet 1,000 mg 1,000 mg, oral, NOW X1, 1 dose, On Koki 02/03/20 at 1930, STAT Given 02/03/2020 19:31 EDT 1,000 mg ascorbic acid (vitamin C) (VITAMIN C) tablet 1,000 mg 1,000 mg, oral, DAILY, First dose on Koki 02/03/20 at 1915, Until Discontinued, Routine, Release Given 02/04/2020 8:30 EDT 1,000 mg ascorbic acid (vitamin C) (VITAMIN C) tablet 1,000 mg 1,000 mg, per ng tube, DAILY, First dose on Koki 02/03/20 at 1915, Until Discontinued, Routine, Release Given 02/03/2020 21:48 EDT 1,000 mg cyanocobalamin (VITAMIN B-12) tablet 1,000 mcg 1,000 mcg, oral, DAILY, First dose on Fri02/04/20 at 0900, Until Discontinued, Routine Given 02/04/2020 8:31 EDT 1,000 mcg docusate sodium (COLACE) capsule 100 mg 100 mg, oral, 2 TIMES DAILY, First dose on Koki 02/03/20 at 2115, Until Discontinued, Routine Given 02/04/2020 8:31 EDT 100 mg fluticasone propion-salmeteroL (ADVAIR) 100-50 mcg/dose diskus inhaler 1 Puff 1 Puff, inhalation, 2 TIMES DAILY, First dose on Koki 02/03/20 at 2115, Until Discontinued Given 02/04/2020 8:38 EDT 1 Puff Given 02/03/2020 21:53 EDT 1 Puff furosemide (LASIX) tablet 20 mg 20 mg, oral, DAILY, First dose on Fri02/04/20 at 0900, Until Discontinued, Routine Given 02/04/2020 8:31 EDT 20 mg gabapentin (NEURONTIN) capsule 800 mg 800 mg, oral, 3 TIMES DAILY, First dose on Koki 02/03/20 at 2115, Until Discontinued Given 02/04/2020 13:32 EDT 800 mg Given 02/04/2020 8:30 EDT 800 mg Given 02/03/2020 21:48 EDT 800 mg lisinopriL (PRINIVIL) tablet 10 mg 10 mg, oral, DAILY, First dose on Fri02/04/20 at 0900, Until Discontinued, Routine Given 02/04/2020 8:31 EDT 1 0 mg loratadine (CLARITIN) tablet 10 mg 10 mg, oral, DAILY, First dose on Fri02/04/20 at 0900, Until Discontinued, Routine Given 02/04/2020 8:31 EDT 1 0 mg LORazepam (ATIVAN) tablet 1 mg 1 mg, oral, ONCE PRN, 1 dose, Starting on Koki 02/03/20 at 2147, Until Koki 02/03/20 at 2324, Anxiety, prior to MRI, Routine Given 02/03/2020 23:24 EDT 1 mg metFORMIN (GLUCOPHAGE) tablet 1,000 mg 1,000 mg, oral, 2 TIMES DAILY, First dose on Koki 02/03/20 at 2115, Until Discontinued, Routine Given 02/04/2020 8:30 EDT 1,000 mg Given 02/03/2020 21:48 EDT 1,000 mg mirtazapine (REMERON) tablet 15 mg 15 mg, oral, AT BEDTIME, First dose on Koki 02/03/20 at 2115, Until Discontinued, Routine Given 02/03/2020 21:48 EDT 15 mg Multivitamins with Minerals tablet 1 Tab 1 Tablet, oral, DAILY, First dose on Koki 02/03/20 at 1915, Until Discontinued, Routine, Release Given 02/04/2020 8:31 EDT 1 Tablet Given 02/03/2020 21:48 EDT 1 Tablet pantoprazole (PROTONIX) tablet 40 mg 40 mg, oral, 2 TIMES DAILY, First dose on Koki 02/03/20 at 2115, Until Discontinued, Routine Given 02/04/2020 8:31 EDT 4 0 mg Given 02/03/2020 21:48 EDT 40 mg risperiDONE (RISPERDAL) tablet 0.5 mg 0.5 mg, oral, AT BEDTIME, First dose on Koki 02/03/20 at 2115, Until Discontinued, Routine Given 02/03/2020 23:24 E DT 0.5 mg senna (SENOKOT) tablet 1 Tab 1 Tablet, oral, 2 TIMES DAILY, First dose on Koki 02/03/20 at 2115, Until Discontinued, Routine Given 02/04/2020 8:31 EDT 1 Tablet sertraline (ZOLOFT) tablet 50 mg 50 mg, oral, DAILY, First dose on Fri02/04/20 at 0900, Until Discontinued, Routine Given 02/04/2020 8:31 EDT 5 0 mg thiamine (VITAMIN B1) tablet 100 mg 100 mg, oral, DAILY, 3 doses, First dose on Koki 02/03/20 at 1915, Last dose on Fri02/05/20 at 0900, Routine, Release Given 02/04/2020 8:31 EDT 100 mg Given 02/03/2020 21:48 EDT 100 mg documented in this encounter Historical Medications * This list may reflect changes made after this encounter. Medication Sig Dispensed Refills Start Date End Date omeprazole (PRILOSEC) 20 mg capsule Take 20 mg by mouth daily. added in this encounter Active and Recently Administered Medications Times are shown in EDT. Scheduled Medication Order 02/02/2020 02/03/2020 02/04/2020 acetaminophen (TYLENOL) tablet 1,000 mg (COMPLETED) 1,000 mg, oral, NOW X1, 1 dose, On Koki 02/03/20 at 1930, STAT 1931 (Given - Provider: Daylin Jackson RN) ascorbic acid (vitamin C) (VITAMIN C) tablet 1,000 mg(Linked Group 1) 1,000 mg, oral, DAILY, First dose on Koki 02/03/20 at 1915, Until Discontinued, Routine, Release 2147 (See Alternative - Provider: Lara Calderon RN) 0830 (Given - Provider: Josie Cherry, BRY) ascorbic acid (vitamin C) (VITAMIN C) tablet 1,000 mg(Linked Group 1) 1,000 mg, per ng tube, DAILY, First dose on Koki 02/03/20 at 1915, Until Discontinued, Routine, Release 2147 (Given - Provider: Lara Calderon RN - Comment: not on unit when meds ordered) 0830 (See Alternative - Provider: Josie Cherry RN) cyanocobalamin (VITAMIN B-12) tablet 1,000 mcg 1,000 mcg, oral, DAILY, First dose on Fri02/04/20 at 0900, Until Discontinued, Routine 0831 (Given - Provid er: Josie Cherry RN) docusate sodium (COLACE) capsule 100 mg 100 mg, oral, 2 TIMES DAILY, First dose on Koki 02/03/20 at 2114, Until Discontinued, Routine 2147 (Not Given - Provider: Lara Calderon RN - Reason: Order parameters not met - Comment: not on unit when meds ordered) 0831 (Given - Provider: Josie Cherry RN) fluticasone propion-salmeteroL (ADVAIR) 100-50 mcg/dose diskus inhaler 1 Puff 1 Puff, inhalation, 2 TIMES DAILY, First dose on Fri02/03/20 at 2114, Until Discontinued 2152 (Given - Provider: Lara Calderon RN) 0838 (Given - Provider: Josie Cherry RN) furosemide (LASIX) tablet 20 mg 20 mg, oral, DAILY, First dose on Fri02/04/20 at 0900, Until Discontinued, Routine 0831 (Given - Provid er: Josie Cherry RN) gabapentin (NEURONTIN) capsule 800 mg 800 mg, oral, 3 TIMES DAILY, First dose on Fri02/03/20 at 2114, Until Discontinued 2147 (Given - Provider: Lara Calderon RN - Comment: not on unit when meds ordered) 0830 (Given - Provider: Josie Cherry RN)1332 (Given - Provider: Josie Cherry RN) lisinopriL (PRINIVIL) tablet 10 mg 10 mg, oral, DAILY, First dose on Fri02/04/20 at 0900, Until Discontinued, Routine 0831 (Given - Provid er: Josie Cherry RN) loratadine (CLARITIN) tablet 10 mg 10 mg, oral, DAILY, First dose on Fri02/04/20 at 0900, Until Discontinued, Routine 0831 (Given - Provid er: Josie Cherry RN) metFORMIN (GLUCOPHAGE) tablet 1,000 mg 1,000 mg, oral, 2 TIMES DAILY, First dose on Fri02/03/20 at 2115, Until Discontinued, Routine 2147 (Given - Provider: Lara Calderon RN - Comment: not on unit when meds ordered) 0830 (Given - Provider: Josie Cherry RN) mirtazapine (REMERON) tablet 15 mg 15 mg, oral, AT BEDTIME, First dose on Koki 02/03/20 at 2114, Until Discontinued, Routine 2147 (Given - Provider: Lara Calderon RN - Comment: not on unit when meds ordered) Multivitamins with Minerals tablet 1 Tab 1 Tablet, oral, DAILY, First dose on Koki 02/03/20 at 1915, Until Discontinued, Routine, Release 2147 (Given - Provider: Lara Calderon RN - Comment: not on unit when meds ordered) 0831 (Given - Provider: Josie Cherry RN) pantoprazole (PROTONIX) tablet 40 mg 40 mg, oral, 2 TIMES DAILY, First dose on Koki 02/03/20 at 2114, Until Discontinued, Routine 2147 (Given - Provider: Lara Calderon RN - Comment: not on unit when meds ordered) 0831 (Given - Provider: Josie Cherry RN) risperiDONE (RISPERDAL) tablet 0.5 mg 0.5 mg, oral, AT BEDTIME, First dose on Koki 02/03/20 at 2114, Until Discontinued, Routine 2323 (Given - Provider: Lara Calderon RN) senna (SENOKOT) tablet 1 Tab 1 Tablet, oral, 2 TIMES DAILY, First dose on Koki 02/03/20 at 2114, Until Discontinued, Routine 2147 (Not Given - Provider: Lara Calderon RN - Reason: Order parameters not met - Comment: not on unit when meds ordered) 0831 (Given - Provider: Josie Cherry RN) sertraline (ZOLOFT) tablet 50 mg 50 mg, oral, DAILY, First dose on Fri02/04/20 at 0900, Until Discontinued, Routine 08 (Given - Provid er: Josie Cherry RN) thiamine (VITAMIN B1) tablet 100 mg 100 mg, oral, DAILY, 3 doses, First dose on Koki 02/03/20 at 1915, Last dose on 10/24/20 at 0900, Routine, Release 2148 (Given - Provider: Lara Calderon RN - Comment: not on unit when meds ordered) 0831 (Given - Provider: Josie Cherry RN) PRN Medication Order 02/02/2020 02/03/2020 02/04/2020 acetaminophen (TYLENOL) tablet 650 mg 650 mg, oral, EVERY 4 HOURS PRN, Starting on 02/04/20 at 0130, Until Fri02/04/20 at 1616, Pain, Routine bisacodyL (DULCOLAX) suppository 10 mg 10 mg, rectal, EVERY 48 HOURS PRN, Starting on 02/05/20 at 0000, Until 02/04/20 at 1616, Constipation, Routine, Release calcium carbonate (TUMS) 200 mg calcium (500 mg) per chewable tablet tablet,chewable 1 Tab 1 Tablet, oral, EVERY 4 HOURS PRN, Starting on Koki 02/03/20 at 1908, Until Fri02/04/20 at 1616, Heartburn, Routine, Release hydrALAZINE (APRESOLINE) 10 mg in sodium chloride (NS) 0.9 % 50 mL IVPB 10 mg, intravenous, Administer over 20 Minutes, EVERY 1 HOUR PRN, Starting on Koki 02/03/20 at 1908, Until Fri02/04/20 at 1616, Routine, Release LORazepam (ATIVAN) tablet 1 mg (COMPLETED) 1 mg, oral, ONCE PRN, 1 dose, Starting on Koki 02/03/20 at 2147, Until Koki 02/03/20 at 2324, Anxiety, prior to MRI, Routine 2324 (Given - Provider: Lara Calderon RN) ondansetron (PF) (ZOFRAN) injection 4 mg 4 mg, intravenous, EVERY 4 HOURS PRN, Starting on Koki 02/03/20 at 1908, Until 02/04/20 at 1616, Nausea, Routine, Release No Frequency Medication Order 02/02/2020 02/03/2020 02/04/2020 acetaminophen (TYLENOL) 500 mg tablet 1 dose, Starting on Koki 02/03/20 at 1925, Until 02/04/20 at 1616 Linked Groups Order Group 1: ascorbic acid (vitamin C) (VITAMIN C) tablet 1,000 mgJump to med 1,000 mg, oral, DAILY, First dose on Koki 02/03/20 at 1915, Until Discontinued, Routine, Release Or ascorbic acid (vitamin C) (VITAMIN C) tablet 1,000 mgJump to med 1,000 mg, per ng tube, DAILY, First dose on Koki 02/03/20 at 1915, Until Discontinued, Routine, Release documented in this encounter Orders Medications Ordered That Eddie ht Not Have Been Administered Count Last Ordered Date First Ordered Date acetaminophen (TYLENOL) 500 mg tablet 1 acetaminophen (TYLENOL) tablet 650 mg 1 bisacodyL (DULCOLAX) suppository 10 mg 1 calcium carbonate (TUMS) 200 mg calcium (500 mg) per chewable tablet tablet,chewable 1 Tab 1 02/03/2020 hydrALAZINE (APRESOLINE) 10 mg in sodium chloride (NS) 0.9 % 50 mL IVPB 1 02/03/2020 ondansetron (PF) (ZOFRAN) injection 4 mg 1 02/03/2020 Nursing Count Last Ordered Date First Orde red Date CONTRAINDICATION TO ANTICOAG ULATION THERAPY 1 02/03/2020 PT Count Last Ordered Date First Orde red Date PT EVALUATION AND TREAT 1 02/03/2020 Admission Count Last Ordered Date First Orde red Date INITIATE OBSERVATION STATUS 1 02/04/2020 Transfer Count Last Ordered Date First Orde red Date ED BED REQUEST 1 02/03/2020 TEACHING SERVICE 1 02/03/2020 Discharge Count Last Ordered Date First Orde red Date DISCHARGE PATIENT 1 02/04/2020 Legal Count Last Ordered Date First Orde red Date MISCELLANEOUS DISCHARGE INSTRUCTIONS 1 01/13 documented in this encounter Care Teams Steel Floor Pan Placing Supervisor Relationship Specialty Start Date End Date Grant Lindsey MD [address] [place] [address] PCP - General 09/09/19 documented as of this encounter
--- OUTSIDE RECORDS SUMMARY | 2024-01-23 00:36 | XMS_ITS | Encounter Summary ---
Author Organization [facility] [id number] Care Team Providers Care Vp Marketing Name Role Phone Jennie Resendiz MD Primary Care Provider [phone] Reason for Visit * Reason Comments Back Pain Right Hip Pain Functional Assessment Encounter Details Date Type Department Care Team (Late st Contact Info) Description 07/30/2010 2:00 PM EDT [place] [id number] Darshan Garsia, PT [facility] [place] [address] Unknown None Yovany Valenzuela MD [facility] [place] [address] Chronic low back pain (Primary Dx) Discharge Disposition: Home Social History Tobacco Use Types Packs/Day Years Used Date Smoking Tobacco: Never Assessed Sex and Gender Information Value Date Recorded Sex Assigned at Not on file Gender Identity Not on file Sexual Orientation Not on file documented as of this encounter Last Filed Vital Signs Vital Sign Reading Time Taken Comments Blood Pressure 130/85 07/30/2010 2:15 PM EDT Pulse - - Temperature - - Respiratory Rate - - Oxygen Saturation - - Inhaled Oxygen Concentration - - Weight - - Height - - Body Mass Index - - documented in this encounter Progress Notes * Darshan Garsia, PT - 07/30/2010 2:01 PM EDT The chief complaint requiring rehabilitation is low back and right lower extremity pain with sensory loss in the right leg. Anatomic diagnoses have included arthritis and nerve damage. Prior treatments included physical therapy, pool therapy, and medications. She is not considering any additional procedures or surgeries at this point. 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 Recreational: Walk at least 1 mile. Daily Living: Stand for at least 30 minutes to mop floor. PHYSICAL EVALUATION Gait: antalgic. AROM (degrees): Lumbar Spine Flexion (0-90) 40 Extension (0-30) 10 SLR Right (0-90) 60 SLR Left (0-90) 70 SLR-Pelvic Motion [smallest SLR - (flex + ext)] 20 Cervical Spine Flexion (0-60) 30 Extension (0-50) 10 Rot. Right (0-80) 35 Rot. Left (0-80) 45 Lat. Flex Right (0-45) 5 Lat. Flex Left (0-45) 10 Functional Strength Testing: PILE Testing lbs/HR Floor To Waist 0 / 82 Waist to Shoulder 0 / 85 Reason for Stop Point: pain Endurance Testing: Modified Ramp Treadmill Test Minutes Completed 1:16 % Grade 5 Speed (mph) 1.3 MET/HR Reason for Stop Point: pain During physical testing, participation level varied. ASSESSMENT OF FUNCTIONAL TESTING: Based on today???s physical capacity findings, multidisciplinary intensive physical rehabilitation would not effectively meet Kallie Porter's needs at this time. The following reasons preclude participation at the present time: Kallie Porter has insufficient exercise tolerance to successfully start the intensive functional orthodoxy program. PLAN: Pending medical clearance, Kallie Porter should return for physical therapy progression to increase exercise tolerance, anticipating eventual entry into the FRP. Total time for testin minutes documented in this encounter Plan of Treatment Upcoming Encounters Date Type Department Care Team (Late st Contact Info) Description 02/27/2024 2:45 PM EST TH Visit (TeleHealth) [place] [address] Lashae Lorenzo MD [facility] [place] [address] documented as of this encounter Visit Diagnoses Diagnosis Chronic low back pain- Primary Lumbago documented in this encounter Care Teams Vp Marketing Relationship Specialty Start Date End Date Jennie Resendiz MD [address] [place] [address] [address] PCP - General 03/06/10 08/27/16 documented as of this encounter
--- OUTSIDE RECORDS SUMMARY | 2024-01-23 00:36 | XMS_ITS | Encounter Summary ---
Author Organization [facility] Address [address] [place] [address] Care Team Providers Care Mining And Quarrying Machinery Repairer Name Role Phone Grant Lindsey MD Primary Care Provider [phone] Reason for Visit * Reason Onset Date Comments Appointment Related 08/07/2021 Encounter Details Date Type Department Care Team (Late st Contact Info) Description 08/07/2021 Telephone [facility] [address], [place] [id number] Alfonzo Cobb MD [address] [facility], [address] [place] [address] Appointment Related Social History Tobacco [...] * Telephone Encounter - Dorcas Bolanos - 08/07/2021 1155 EDT Images from the original note were not included. Confirmed the following appointment details with Kallie. She verbalized understanding and deniedhaving any quesitons. documented in this encounter Plan of Treatment Not on file documented as of this encounter Visit Diagnoses Not on filedocumented in this encounter Care Teams Mining And Quarrying Machinery Repairer Relationship Specialty Start Date End Date Grant Lindsey MD [address] [place] [address] PCP - General 09/09/19 documented as of this encounter
--- OUTSIDE RECORDS SUMMARY | 2024-01-23 00:36 | XMS_ITS | Encounter Summary ---
Author Organization [facility] Address [address] [place] [address] Care Team Providers Care Cargo Inspector Name Role Phone Grant Lindsey MD Primary Care Provider [phone] Reason for Visit * Reason Comments Follow-up Aneurysm * Consult (Routine) - Authorization Not Required Specialty Diagnoses / Procedures [facility] Neurosurgery Diagnoses Cerebral aneurysm, nonruptured Deborah Hills MD [address] [facility] [place] [address] Alfonzo Cobb MD [address] [place] [id number] Referral ID Status Reason Start Date Expiration Date Visits Requested Visits Authorized [id number] Authorization Not Required 1 1 Encounter Details Date Type Department Care Team (Late st Contact Info) Description 10/08/2021 10:45 EDT Office Visit [facility] - [facility] [address] [place] [address] Alfonzo Cobb MD [address] [place] [phone] Cerebral aneurysm, nonruptured (Primary Dx) Social History Tobacco Use Types [...] EDT Pulse 83 10/08/2021 1040 EDT Temperature - - Respiratory Rate - - Oxygen Saturation 98% 10/08/2021 1040 EDT Inhaled Oxygen Concentration - - Weight 100.2 kg (221 lb) 10/08/2021 1040 EDT Height 165.1 cm (5' 5) 10/08/2021 1040 EDT Body Mass Index 36.78 10/08/2021 1040 EDT documented in this encounter Functional Status [...] No 02/03/2020 documented as of this encounter Progress Notes * Alfonzo Cobb MD - 10/08/2021 1045 EDT This office note has been dictated. I spent total of 15 minutes on the date of this encounter meeting with this patient and reviewing documentation/coordinating care as described in the dictated note. * Alfonzo Cobb MD - 10/08/2021 1045 EDT [facility] NEUROLOGICAL SURGERY PROGRESS / FOLLOWUP NOTE - 10/08/[address] Lindsey: I had the opportunity of seeing your patient, Kallie Darling, back in my neurosurgery office at [facility] on 10/08/2021. She previously underwent craniotomy for surgical clipping of a right MCA aneurysm. This patient now is 61 years old. She presented in 2019 with an asymptomatic right MCA aneurysm. She underwent craniotomy for surgical clipping of the aneurysm 01/04/2022. Initially following the surgery, she was complaining of severe headache, but these headaches have improved. Today, she states that the headaches are quite mild and are more left sided over her left forehead rather than over the operative site. She has no new neurological symptoms. On examination, the wound has healed well. There is a small concavity in her right temporal region secondary to her atrophy of the temporalis muscle. Currently, she is doing very well. She did undergo a CT scan and CTA. The CTA shows that there is no residual aneurysm and that the surrounding vessels are widely patent. The ventricular size is normal. I am delighted she is doing so well. I have told her that the aneurysm is well secured and that constantino no longer needs to follow up with us unless she has any further problems with the craniotomy site. Yours sincerely, Alfonzo Cobb MD / AM Dictation ID: [id number] cc: Grant Lindsey MD, [facility], [address] [place] [id number] documented in this encounter Plan of Treatment Not on file documented as of this encounter Visit Diagnoses Diagnosis Cerebral aneurysm, nonruptured- Primary documented in this encounter Care Teams Cargo Inspector Relationship Specialty Start Date End Date Grant Lindsey MD [address] [place] [address] PCP - General 09/09/19 documented as of this encounter
--- OUTSIDE RECORDS SUMMARY | 2024-01-23 00:36 | XMS_ITS | Encounter Summary ---
Author Organization [facility] [place] [address] Care Team Providers Care Equipment Operator Name Role Phone Jennie Resendiz MD Primary Care Provider [phone] Encounter Details Date Type Department Care Team (Late st Contact Info) Description 07/27/2010 Abstract [place] [id number] Dorinda Lira, RADHA [facility] [place] [address] Social History Tobacco Use Types Packs/Day Years [...] EST TH Visit (TeleHealth) [place] [address] Lashae Lorenzo MD [facility] [place] [address] documented as of this encounter Visit Diagnoses Not on filedocumented in this encounter Care Teams Equipment Operator Relationship Specialty Start Date End Date Jennie Resendiz MD [address] [place] [address] PCP - General 03/06/10 08/27/16 documented as of this encounter
--- OUTSIDE RECORDS SUMMARY | 2024-01-23 00:36 | XMS_ITS | Encounter Summary ---
[place] [address] Care Team Providers Care Education Administrator Name Role Phone Jennie Resendiz MD Primary Care Provider [phone] Encounter Details Date Type Department Care Team (Late st Contact Info) Description 01/28/2012 6:30 AM EDT Clinical Support [facility] [place] [address] Social History Tobacco Use Types [...] Sign Reading Time Taken Comments Blood Pressure 107/71 01/28/2012 9:31 AM EDT Pulse 82 01/28/2012 9:31 AM EDT Temperature 36.6 ??C (97.9 ??F) 01/28/2012 8:23 AM ED T Respiratory Rate 16 01/28/2012 9:31 AM EDT Oxygen Saturation 94% 01/28/2012 9:31 AM EDT Inhaled Oxygen Concentration - - Weight - - Height - - Body Mass Index - - documented in this encounter Patient Instructions * Discharge Instructions* Erickson Aldana RN - 01/28/2012 9:48 AM EDT [facility] Vascular and Interventional Radiology Biopsy Discharge Instructions Liver, kidney or bone biopsy: call your doctor immediately if you develop a sudden onset of weakness, increased pain or swelling at the biopsy site or heavy bleeding at the biopsy site.. Activity And Diet: Go home and rest quietly for the remainder of the day. You may resume your normal activities tomorrow. Resume your usual diet after the procedure. Do not drive, sign any important/legal documents, or make any important decisions for 24 hours following sedation medications. When to call your healthcare provider: If you see any redness, swelling or drainage at the biopsy site. If you develop chills. If you have a fever greater than or equal to 101 degrees Fahrenheit. If you develop pain around the biopsy site. Bandage: Check the dressing/bandaid throughout the day for an increase in drainage. Keep the biopsy site dryfor 24 hours. Replace the bandaid as needed. You may shower 24 hours after the biopsy. Medication: DO NOT take aspirin-containing products, ibuprofen, or blood-thinning medication for the next 24 hours unless your doctor says you may do so. Generally you may use acetaminophen as needed for discomfort unless you have liver disease and are instructed not to take acetaminophen. Biopsy Results The results of your biopsy should be available within 5 business days and will be reported to you by your primary primary care nurse practitioner or the clinician who ordered the biopsy. Please do not call us for results as we will not have them. If you have not been contacted by your clinician within 5 business days you should call that officefor further information. When to call the Interventional Radiology Department: Please call with any questions or concerns. If it is during regular office hours, please call [phone]. If it is after regular office hours, or on weekends or holidays, please call [phone] and ask to speak to the Clicker Operator ribbon hand for Interventional Radiology. You have received medication during your procedure to help lesson anxiety and keep you comfortable.These medications affect judgement and reaction time. We recommend that you do not drive, operate equipment, sign any important documents, or smoke unattended for 24 hours following your procedure. Because of the sedation, be careful on stairs, as you may be unsteady on your feet. You may resume your regular diet as tolerated. IV site -- slight redness, or tenderness is normal, you can use a warm compress. If tenderness and redness increases or foul drainage occurs, please contact your M. D. Revised 04/26/11 documented in this encounter Plan of Treatment Upcoming Encounters Date Type Department Care Team (Late st Contact Info) Description 02/27/2024 2:45 PM EST TH Visit (TeleHealth) [place] [address] Lahsae Lorenzo MD [facility] [place] [address] documented as of this encounter Visit Diagnoses Not on filedocumented in this encounter Care Teams Education Administrator Relationship Specialty Start Date End Date Jennie Resendiz MD [facility] [address] [place] [address] PCP - General 03/06/10 08/27/16 documented as of this encounter
--- OUTSIDE RECORDS SUMMARY | 2024-01-23 00:36 | XMS_ITS | Encounter Summary ---
Author Organization [facility] Address [address] [place] [address] Care Team Providers Care Consultant Rn Name Role Phone Grant Lindsey MD Primary Care Provider [phone] Encounter Details Date Type Department Care Team (Late st Contact Info) Description 06/25/2021 Lab Requisition [facility] [place] [facility] Pathology & Laboratory Medicine - [facility] [address] [place] [address] Outr Resulting Lab, Provider Social History Tobacco [...] Procedure Name Priority Date/Time Associated Diagnosis Comments HIV 1/2 ANTIGEN AND ANTIBODY, 4TH GENERATION Routine 06/25/2021 11:20 EDT documented in this encounter Results * HIV 1/2 ANTIGEN AND ANTIBODY, 4TH GENERATION (06/25/2021 11:20 EDT) HIV 1 and 2 Antibody/p24 Antigen, 4th Generation Negative Negative 06/26/2021 10:03 EDT [facility] Comment:If acute HIV-1 infec tion is suspected in a high risk patient, submit plasma specimen for HIV-1 RNA quantitation test. Blood VENOUS BLOOD / Unknown 06/25/2021 11:20 EDT 06/25/2021 20:54 EDT Narrative [facility] - 06/26/2021 10:03 EDT Fourth Generation assay performed on the Siemens Wild Needleaur XPT. Provider Outr Resulting Lab IMMUNOLOGY A ND SEROLOGY ORDERABLES [facility] [address] [place] [address] documented in this encounter Visit Diagnoses Not on filedocumented in this encounter Care Teams Consultant Rn Relationship Specialty Start Date End Date Grant Lindsey MD [address] [place] [address] PCP - General 09/09/19 documented as of this encounter
--- OUTSIDE RECORDS SUMMARY | 2024-01-23 00:37 | XMS_ITS | Encounter Summary ---
Author Organization [facility] Address [address] [place] [address] Care Team Providers Care Coal Picker Name Role Phone Grant Lindsey MD Primary Care Provider [phone] Reason for Visit * Reason Onset Date Comments Headache 01/14/2020 Balance problem 01/14/2020 Encounter Details Date Type Department Care Team (Late st Contact Info) Description 01/14/2020 Telephone [facility] Neurosurgery - [facility] [address] [place], [place] [id number] Alfonzo Cobb MD [address] [facility] [place] [address] Headache; Balance problem Social History Tobacco Use Types Packs/Day Years Used Date Smoking Tobacco: Former Cigarettes 0.5 45 0 12/18/1974 - 12/19/2019 Smokeless Tobacco: Never Alcohol Use Standard Drinks/Week Comments No 0 (1 standard drink = 0.6 oz pure alcohol) stop drinking in 2016 - h/o cirrhosis AUDIT-C Answer Date Recorded Frequency of Alcohol Consumption Never 06/25/2018 Average Number of Drinks Not on file 019 Frequency of Binge Drinking Not on file 06/12 PHQ-2 Answer Date Recorded PHQ-2 Score 0 12/25/2019 Interpersonal Safety Answer Date Record ed Physically [...] have Coronavirus / COVID-19? No / Unsure 01/05/2020 5:33 EDT documented as of this encounter Functional Status Functional Status Response Date of Assess ment Are you deaf or do you have serious difficulty h earing? No 12/25/2019 Are you blind or do you have serious difficulty seeing, even when wearing glasses? No 12/25/2019 Because of a physical, menta l, or emotional condition, do you have difficulty doing errands alone such as visiting a doctor's office or shopping? (15 years old or older) No 12/25/2019 Cognitive Status Response Date of Assessm ent Because of a physical, menta l, or emotional condition, do you have serious difficulty concentrating, remembering, or making decisions? (5 years old or older) No 12/25/2019 documented as of this encounter Miscellaneous Notes * Telephone Encounter - Meghan Garcia RN - 01/14/2020 1504 EDT The patent reported gait instability. She is listing to the right. She fell over earlier today. Shehas pressure in her head. Advised evaluation at her local ED. She will have her friend transport her there. * Telephone Encounter - Brianne Bangura - 01/14/2020 1448 EDT Patient states she went shopping today and had experienced a severe headache to where she lost her balance and started to fall, however, her brother caught her. She states her right eye is a little hazy. She has been taking Tylenol but it has not been helpful. She also feels that she leans more to the right when walking. She wants to know if she can get a prescription for a cane She states that she trips over the cane that she has currently. She saw a cane at [facility] that she stands on its own. documented in this encounter Plan of Treatment Not on file documented as of this encounter Visit Diagnoses Not on filedocumented in this encounter Care Teams Coal Picker Relationship Specialty Start Date End Date Grant Lindsey MD [address] [place] [address] PCP - General 09/09/19 documented as of this encounter
--- OUTSIDE RECORDS SUMMARY | 2024-01-23 00:37 | XMS_ITS | Encounter Summary ---
Author Organization [facility] Address [address] [place] [address] Care Team Providers Care Printing Sales Representative Name Role Phone Grant Lindsey MD Primary Care Provider [phone] Encounter Details Date Type Department Care Team (Latest Contact Info) Description 02/03/2020 Travel Social History Tobacco Use Types Packs/Day [...] 16:17 EDT documented as of this encounter Functional [...] No 12/25/2019 documented as of this encounter Plan of Treatment Not on file documented as of this encounter Visit Diagnoses Not on filedocumented in this encounter Care Teams Printing Sales Representative Relationship Specialty Start Date End Date Grant Lindsey MD [address] [place] [address] PCP - General 09/09/19 documented as of this encounter
--- OUTSIDE RECORDS SUMMARY | 2024-01-23 00:37 | XMS_ITS | Encounter Summary ---
Author Organization [facility] Address [address] [place] [address] Care Team Providers Care Leader Tier Name Role Phone Grant Lindsey MD Primary Care Provider Encounter Details Date Type Department Care Team (Latest Contact Info) Description 12/30/2019 Travel Social History Tobacco Use Types Packs/Day [...] have Coronavirus / COVID-19? No / Unsure 12/30/2019 15:15 EDT documented as of this encounter Functional [...] on filedocumented in this encounter Care Teams Leader Tier Relationship Specialty Start Date End Date Grant Lindsey MD [address] [place] [address] PCP - General 09/09/19 documented as of this encounter
--- OUTSIDE RECORDS SUMMARY | 2024-01-23 00:37 | XMS_ITS | Encounter Summary ---
Author Organization [facility] Address [address] [place] [address] Care Team Providers Care Scale Tank Operator Name Role Phone Grant Lindsey MD Primary Care Provider [phone] Reason for Visit * Auth/Cert Specialty Diagnoses / Procedures Referred By Nicol sparks Referred To Contact Diagnoses Cerebral aneurysm, nonruptured Procedures LA ANEURYSM, INTRACRAN, SIMPLE SURG Right craniotomy for surgical clipping of right middle cerebral aneurysm Referral ID Status Reason Start Date Expiration Date Visits Re quested Visits Authorized [id number] 1 1 Encounter Details Date Type Department Care Team (Late st Contact Info) Description 01/05/2020 5:35 EDT - 01/07/2020 10:16 EDT Hospital Encounter [facility] Surgical Intensive Care Unit [address] [place] [address] Alfonzo Cobb MD [address] [facility], Level 5 [place] [address] Cerebral aneurysm, nonruptured (Primary Dx) Discharge Disposition: Home or Self Care Social [...] 5:33 EDT documented as of this encounter Last Filed Vital Signs Vital Sign Reading Time Taken Comments Blood Pressure 117/73 01/07/2020 0200 EDT Pulse - - Temperature 37.1 ??C (98.8 ??F) 01/07/2020 0821 EDT Respiratory Rate 17 01/07/2020 0801 EDT Oxygen Saturation 94% 01/07/2020 0821 EDT Inhaled Oxygen Concentration - - Weight 105.3 kg (232 lb 2.3 oz) 01/05/2020 0647 EDT Height 165.1 cm (5' 5) 01/05/2020 0647 EDT Body Mass Index 38.63 01/05/2020 0647 EDT documented in this encounter Functional Status Functional Status Response Date of Assess ment Because of a physical, menta l, or emotional condition, does this person have difficulty doing errands alone such as visiting a doctor's office or shopping? No 06/11/2019 Cognitive Status Response Date of Assessm ent Because of a physical, menta l, or emotional condition, does this person have serious difficulty concentrating, remembering, or making decisions? No 11/02/2019 documented as of this encounter Discharge Summaries * Orin Bassett MD - 01/07/2020 1016 EDT Neurosurgery Discharge Summary Primary Care Provider: Grant Lindsey Attending Physician: No att. providers found Admit Date: 01/05/2020 Discharge Date: 01/07/2020 Disposition: Home or self care Problems and Procedures Admitting Diagnosis: Cerebral aneurysm, nonruptured Discharge Diagnosis: Same Additional Problems Managed in the Hospital Active Hospital Problems Diagnosis Date Noted ??? *Cerebral aneurysm, nonruptured 12/02/2019 Added automatically from request for surgery [id number] ??? Aneurysm ([facility]) 01/05/2020 Resolved Hospital Problems No resolved problems to display. Principal Procedure: Right craniotomy for surgical clipping of right MCA aneurysm (Dr. 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 At this time, CTA revealed a 4 to 5 mm unruptured right MCA Aneury sm. Patient presents DOSA for Right craniotomy for surgical clipping of right MCA aneurysm. Post-operatively patient is doing well. Post op CT with expected changes. Patient remained neurologically stable postop. The patient's incision was closed with absorbable suture, which does not need removal. Allergies and Immunizations Allergies Allergen Reactions ??? [...] Upset ??? Lactose Intolerance (Lactase) ??? Neosporin [Nuaprusn-Rwdfbfejliq-Mwjvbqltp] Nausea and rash There is no immunization history on file for this patient. Transition of Care Plans Condition at Discharge Good Prognosis: good Assessment at Discharge Vital signs: No data found. Test results still pending from this admission None Relevant Studies During Admission Ct Head Wo Contrast Result Date: 01/06/2020 EXAM: CT HEAD WO CONTRAST HISTORY: Cerebral aneurysm, status post right pterional craniotomy and right MCA aneurysm clipping. TECHNIQUE: CT head without contrast. Structured report code: NR.CT01 COMPARISON: Outside head and neck CTA from December 25, 2019 FINDINGS: PARENCHYMA: No evidence of infarction. No acute parenchymal hemorrhage. No mass or midline shift. Diffuse parenchymal volume loss ismild, if present. EXTRA-AXIAL SPACES: Small amount of subarachnoid hemorrhage noted lateral to the aneurysm clip. Small amount of blood products are noted in the epidural space subjacent to the craniotomy. Small volume pneumocephalus, predominantly over the right frontal lobe. No extra-axial mass. VENTRICULAR SYSTEM: No obstructive hydrocephalus. No acute intraventricular hemorrhage. VESSELS: Limited evaluation without IV contrast. Normal density in the dural venous sinuses. Calcifications are present in the carotid siphons and intradural vertebral arteries. BONES: No concerning lesions. No evidence of fracture. Craniotomy noted. ORBITS: No significant abnormality. PARANASAL SINUSES/MASTOIDAIR CELLS: Scattered mural thickening noted in the paranasal sinuses with small volume layering fluid in the left sphenoid sinus. Mastoid air cells are predominantly clear. EXTRACRANIAL SOFT TISSUES:Scalp drain noted over the craniotomy. Surgical changes noted. No concerning abnormality. Changes related to interval right MCA aneurysm clipping, as above. A small amount of subarachnoid hemorrhage is present along the lateral aspect of the clip. I have personally reviewed the images andthe above interpretation and agree with the findings. Ct Outside Images Neuro Result Date: 12/25/2019 This is a non-reportable exam. Imaging Required No Last Lab Results at Discharge BUN: Lab Results Component Value Date BUN 17 01/07/2020 Creatinine: Lab Results Component Value Date CREATININE 0.68 01/07/2020 CBC: Lab Results Component Value Date WBC 7.23 01/07/2020 RBC 3.44 (L) 01/07/2020 HGB 10.0 (L) 01/07/2020 HCT 30.1 (L) 01/07/2020 MCV 88 01/07/2020 MCH 29.1 01/07/2020 MCHC 33.2 01/07/2020 PLT 111 (L) 01/07/2020 DIFFTYPE Auto 01/07/2020 Electrolytes: Lab Results Component Value Date NA 141 01/07/2020 K 4.5 01/07/2020 CL 101 01/07/2020 CO2 27 01/07/2020 HGB: Lab Results Component Value Date HGB 10.0 (L) 01/07/2020 Discharge Follow Up Upcoming Appointments Feb 03, 2020 10:00 Telemedicine Visit with Amber Lawrence PA-C [facility] Neurosurgery - [facility] [place] (--) [address] [facility] [address] Follow-up appointments and procedures Amb Consult/Follow Up Neurosurgery Reason for Request: fu aneurysm clipping 1mo Authorizing Provider: Orin Bassett MD ERIN D'AGOSTINO, MD 01/07/2020 21:26 documented in this encounter Medications at Time [...] 15 mg by mouth at bedtime. 10/27/2019 oxyCODONE (ROXICODONE) 5 mg immediate release tablet [...] Take 50 mg by mouth daily. 12/04/2019 levETIRAcetam (KEPPRA) 500 mg tablet Take 1 Tab by mouth every 12 hours for 7 days. 14 Tab 01/07/2020 01/14/2020 documented as of this encounter Ordered Prescriptions Prescription Sig Dispensed Refills Start Date End Da te senna (SENOKOT) 8.6 mg tablet Take 1 Tab by mouth 2 times daily. 01/07/2020 oxyCODONE (ROXICODONE) 5 mg immediate release tablet Take 1 Tab by mouth every 4 hours as needed for Pain (discomfort). Daily Max: 30 mg 10 Tab 01/07/2020 methocarbamoL (ROBAXIN) 750 mg tablet Take 1 Tab by mouth 4 times daily. 30 Tab 01/07/2020 docusate sodium (COLACE) 100 mg capsule Take 1 Cap by mouth 2 times daily. 01/07/2020 acetaminophen (TYLENOL) 325 mg tablet Take 2 Tabs by mouth every 4 hours as needed for Pain. 01/07/2020 levETIRAcetam (KEPPRA) 500 mg tablet Take 1 Tab by mouth every 12 hours for 7 days. 14 Tab 01/07/2020 01/14/2020 documented in this encounter Discharge Disposition Disposition Code Departure Means Destination Home or Self Care Wheelchair Home documented in this encounter Progress Notes * Orin Bassett MD - 01/07/2020 0717 EDT Neurosurgery Post Procedure Note Problems/ Right MCA Aneurysm Procedures/ Right craniotomy for surgical clipping of right MCA aneurysm 24 hour events/ Drain removed Transferred to floor Na 141 Subjective/ Very mild headache Objective/ BP 117/73 Temp 37.2 ??C (99 ??F) (Tympanic) Resp 16 Ht 165.1 cm (65) Wt (!) 105.3 kg (232 lb 2.3 oz) SpO2 94% BMI 38.63 kg/m?? 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 At this time, CTA revealed a 4 to 5 mm right MCA Aneurysm that had not ruptured. Of note, the patient takes 75mg Plavix daily but has not taken it since 12/25 per instructions in preporation for surgery. Patient presents DOSA for Right craniotomy for surgical clipping of right MCA aneurysm. Post- operatively patient is doing well. Okay for discharge today. Plan/ Q4 neuro checks SBP 100-160 HOB >30 degrees Diet and activity as tolerated Pain control Keppra x7 days Neurosurgery resident 01/07/2020 7:17 Page [id number] with questions * Noble Bass, RT - 01/06/2020 2131 EDT Respiratory Consult/Progress Note Indications for Respiratory therapy: Home routine Data Vitals: Heart Rate: 82 BPM, Resp: 16, SpO2: 95 % FIO2/O2 Device: O2 Flow Rate (L/min): 0 l/min, , O2 Device: None, FIO2 %: 21 % RT Orders: BID Advair Protocol Scoring: Bronchodilator/Inhalation Therapy Frequency Bronchodialator - Clinical Indications: Home regimen Breath Sounds: Any abnormal BS decreased Response: No change / no treatment Pulse: <100 Resp Rate: <18 SOB: None Total Score: 1 Comment:: advair and prn albuterol Airway Clearance Therapy Frequency Airway Clearance - Clinical Indications: Productive cough Breath Sounds: Clear / diminished Sputum: Small (tsp) / None Consistency: None Cough Effort: Strong/ non-productive Color: None Total Score: 0 Hyperinflation Therapy Frequency Hyperinflation - Clinical Indications: No clinical indications Breath Sounds: Other Surgery: No X-Ray / Atelectasis: No O2 Requirements: O2 at baseline Mobility Status: Mobile / at baseline Total: 1 Comment: will start IS Action/Events Respiratory events; Currently administering home regimen to patient at this time and continued evaluation of respiratory status. Patient on room air (Does not use any supplemental oxygen at baseline), chest ascultation revealed Diminished breath sounds . No dyspnea on exertion or shortness of breath at rest. Patient tolerated medication administration well. Able to actuate DPI well without assistance, Nursing to administer pt's mdi's once transferred out of ICU settings; continue with medications and therapies as ordered. RT SOLOMON 01/06/20 * Petra Kapoor RN - 01/06/2020 1540 EDT Case Management Contact Note: Attempted to meet patient x2 however she was asleep and then working with nursing. Will f/u tomorrow am. Petra Kapoor RN, BSN #[id number] * Orin Bassett MD - 01/06/2020 1035 EDT Neurosurgery Post Procedure Note Problems/ Right MCA Aneurysm Procedures/ Right craniotomy for surgical clipping of right MCA aneurysm 24 hour events/ Sp above Post op head CT with expected changes, no stroke Na 141 Plt 114 I&O By Type - 3 Shifts Including Current In: 4088.8 [P.O.:2290; I.V.:1798.8] Out: 5105 [Urine:4985; Drains:120] Subjective/ Sore with chewing Objective/ BP 108/63 Temp 36.3 ??C (97.3 ??F) Resp 20 Ht 165.1 cm (65) Wt (!) 105.3 kg (232 lb 2.3 oz) SpO2 90% BMI 38.63 kg/m?? 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 At this time, CTA revealed a 4 to 5 mm right MCA Aneurysm that had not ruptured. Of note, the patient takes 75mg Plavix daily but has not taken it since 12/25 per instructions in preporation for surgery. Patient presents DOSA for Right craniotomy for surgical clipping of right MCA aneurysm. Post- operatively patient is doing well. Plan/ Q1h neurochecks SBP 100-140 HOB >30 degrees Diet and activity as tolerated Monitor and record drain output Pain control Keppra x7 days Neurosurgery resident 01/06/2020 10:35 Page [id number] with questions Associated attestation - Alfonzo Cobb MD - 01/06/2020 1538 EDT Neurosurgery Staff I have seen and examined this patient. I reviewed the patient's history and exam with the Neurosurgery Resident. I agree with the findings, assessment and treatment plan as documented in the resident's note. Doing well BT * Phylicia Johnson, RT - 01/05/2020 7255 EDT Respiratory Consult/Progress Note Indications for Respiratory therapy: Data Vitals: Heart Rate: 81 BPM, Resp: 11, SpO2: (!) 89 % FIO2/O2 Device: O2 Flow Rate (L/min): 6 l/min, , O2 Device: Nasal cannula, RT Orders: home routine Protocol Scoring: Bronchodilator/Inhalation Therapy Frequency Bronchodialator - Clinical Indications: Home regimen Breath Sounds: Any abnormal BS decreased Response: No change / no treatment Pulse: <100 Resp Rate: <18 SOB: None Total Score: 1 Comment:: advair and prn albuterol Airway Clearance Therapy Frequency Airway Clearance - Clinical Indications: Productive cough Breath Sounds: Clear / diminished Sputum: Small (tsp) / None Consistency: Thin Cough Effort: Strong/ non-productive Color: Clear / white Total Score: 0 Hyperinflation Therapy Frequency Hyperinflation - Clinical Indications: Decreased breath sounds with increased FiO2 Breath Sounds: Other Surgery: Yes X-Ray / Atelectasis: No O2 Requirements: > 4 L above baseline Mobility Status: In bed Total: 9 Comment: will start IS Action/Events Pt sleepy from OR, requiring 6L. Will start IS Per pt she takes BID advair at home, will need help Prn albuterol. No home oxygen use or cpap/bipap. History of asthma. Smoking history but no COPD diagnosis Response/Results RT MINDI 01/05/20 * Jamel Phillips MD - 01/05/2020 1331 EDT Neurosurgery Post Procedure Note Problems/ Right MCA Aneurysm Procedures/ Right craniotomy for surgical clipping of right MCA aneurysm Subjective/ Mild headache. Otherwise enies CP/SOB, N/V, ROCHA/dizziness, numbness, tingling, weakness, vision/hearing changes, speech/swallowing difficulties. Objective/ There were no vitals taken for this visit. 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 At this time, CTA revealed a 4 to 5 mm right MCA Aneurysm that had not ruptured. Of note, the patient takes 75mg Plavix daily but has not taken it since 12/25 per instructions in preporation for surgery. Patient presents DOSA for Right craniotomy for surgical clipping of right MCA aneurysm. Post- operatively patient is doing stable. Plan/ Q1h neurochecks SBP 100-140 HOB >30 degrees Diet and activity as tolerated Monitor and record drain output CT head this evening Pain control Keppra x7 days Neurosurgery resident 01/04/2020 9:35 Page 1919 with questions * Dona Gastelum RN - 01/05/2020 0731 EDT Preop Covid DOS screening questionnaire Please document by exception (only check those that apply). Have you had any of the following symptoms recently? Patient denies Yes Chronic ? Cough Shortness of breath or difficulty breathing Fever Chills Fatigue Muscle or body aches Severe Headache New loss of taste or smell Sore throat Congestion or runny nose Rash Nausea, vomiting, or diarrhea (rare in adults. More common in children) Were you covid tested?yes If yes, have you self-isolated/quarantined since your test?yes See admission vital signs documentation for admission temperature. documented in this encounter H&P Notes * Kyra Salas DO - 01/05/2020 0728 EDT The preoperative history and physical which was performed within 30 days of this procedure has been reviewed and the clinically appropriate elements of the physical examination have been repeated. There are no changes to the documented history and physical or if so such changes are documented below Off plavix for 2 weeks. No other antiplatelets or anticoagulants. She quit using tobacco 3 weeks ago. No recent illness / fevers / chills / skin changes Kyra Salas DO 01/05/2020 7:28 Source Note - STAND UP COMEDIAN, SCAN 2 - 01/04/2020 16:15 EDT documented in this encounter OR Notes * OR Surgeon - Alfonzo Cobb MD - 01/05/2020 0576 EDT OPERATIVE REPORT SERVICE DATE: 01/05/2020 SURGEON: Alfonzo Cobb MD ASSISTANTS: Antoine Stanton DO, MD ANESTHESIA: General. PREOPERATIVE DIAGNOSIS: Right middle cerebral artery aneurysm. POSTOPERATIVE DIAGNOSIS: Right middle cerebral artery aneurysm. PROCEDURES: 1. Right pterional craniotomy. 2. Surgical clipping of right middle cerebral artery aneurysm. 3. Microsurgical technique. 4. Temporary clipping technique for clipping of aneurysm. 5. Intraoperative neurophysiological monitoring. EQUIPMENT USED: Sugita 7 mm curved aneurysm clip, [id number]. INDICATIONS: This 59-year-old female was found to have an incidental right middle cerebral artery aneurysm. This was unruptured and asymptomatic. She underwent a cerebral angiogram to be considered for endovascular treatment. The aneurysm was not suitable for endovascular technique according to our neuroradiologists and, therefore, I talked to her about surgical clipping of the aneurysm. The aneurysm was about 4 to 5 mm in size and did have an abnormal sharno coming from the dome of the aneurysm.After hearing the risks and benefits of surgery, she requested that we go ahead with craniotomy forclipping of the aneurysm. I believe she is fully consented. FINDINGS: At surgery, the right sylvian fissure was opened widely. The aneurysm was well exposed. We exposed M1 and both M2 branches. The aneurysm was seen. It was thin-walled, did have a sharon comingoff the dome of the aneurysm. We did use temporary clipping for clipping of the aneurysm; however, after about 20 seconds, the SSEPs did change and, therefore, we took the temporary clip off after about 30 seconds of clipping. The SSEPs returned to normal. We therefore proceeded with clipping of the aneurysm without any further temporary clipping. The aneurysm was well clipped with a Sugita 7 mm curved clip. We did use Doppler to verify M2s were widely patent, which they were. We also used the IC-Green to confirm successful clipping. NARRATIVE: This patient was brought to the operating room for clipping of a right middle cerebral artery aneurysm. In the supine position, she was intubated and put under a general anesthetic. Pneumatic stockings, IV, art line, and Salomon catheter were put in place. She was covered perioperatively with Decadron, Keppra, and antibiotics. Mannitol was given intraoperatively. Her head was fixed in the Matthews 3-point headrest and turned about 45 degrees to the left. Her right frontotemporal regionwas shaved and then prepped and draped. EEG electrodes were put in place for neuromonitoring. Safety checklist done. Local anesthetic injected at the site of planned incision. A right frontotemporal skin incision wasmade starting in front of the right ear, passing behind the hairline to the forehead just right of the midline. Subcutaneous tissue, galea cut sharply down to pericranium. The pericranium was opened with the Bovie, as was the temporalis muscle. The skin flap and the temporalis muscles were elevatedanteriorly, exposing the right frontotemporal region. Muscle and skin flap were held in place with fishhooks and Sangeeta bar. Three baldomero holes were then put in place, one in the keyhole, one low in thetemporal region, one over the frontal bone. Dura stripped. Cumbola holes connected with the craniotome. Free bone flap was removed. The [employer] QD8 was then used to drill down the sphenoid ridge to allow exposure to the basal cisterns. Dura was opened and hinged anteriorly. Thus, the frontal and temporal lobes were exposed. A Emerson halo self-retaining retractor system was put in place. Microscope was brought in and microsurgical technique used. Under the microscope, using sharp dissection, the sylvian fissure was opened widely. This exposed the middle cerebral artery's M1 and both M2s. The aneurysm was well exposed. We dissected around M1 so we could place a temporary clip on it, and the M2 were well exposed, as was the aneurysm. We then attempted temporary clipping technique of M1 in order to clip the aneurysm. However, after 20 seconds, the SSEPs became abnormal and, therefore, the clip was removed. A total of 30 seconds of temporary clipping occurred. We then proceeded with clipping without temporary clipping, and a Sugita 7 mm curved clip was placed over the dome of the aneurysm and nicely closed the neck of the aneurysm. The aneurysm was well clipped. We used ultrasound to confirm that M1 and M2s were open. We also used IC-Green to confirm D2uartynv patent and the aneurysm closed. Papaverine was then used to reverse any mechanical vasospasm. Wound thoroughly irrigated and then closed. Dura closed with 4-0 Nurolon. A central hitch-up stitch put in place. DuraGen placed on the dura. Bone secured back in place with plates and screws. Central hitch-up stitch secured. Subgaleal drain put in place. Temporalis muscle closed with 2-0 Vicryl, and 3-0 Vicryl was used to close the galea, followed by running Monocryl stitch for the skin. A sterile dressing was then applied. The patient was stable at the conclusion of the procedure and left the operating room in good condition. Count was correct. No complications. Because of the complexity of this case and the lack of qualified resident to assist I did ask my Neurosurgery colleague Dr Antoine Castaneda to assist with this case.. Alfonzo Cobb MD / CF Confirmation: [id number] Dictation ID: [id number] cc: Alfonzo Cobb MD, [facility] - Neurosurgery, [address] [place] [address] Kyra Salas DO, [facility] - House Staff Mail, [address] [place] [address] Grant Lindsey MD, [facility], [address] [place] [address] documented in this encounter Miscellaneous Notes * Plan of Care - Orin Menchaca RN - 01/06/2020 4043 EDT Problem: High Fall Risk: Goal: Patient will Remain Free of Falls due to Med. Side Effects Note: D: Patient is a fall risk per fall scale. A: Educated patient aboriginal ceremonial celebrant light usage, chair locked when in chair, bed locked and in lowest positions when in bed, call light and belongings are in reach. R: Patient has used call light approprietly throughout shift, no falls, will continue to monitor. * Plan of Care - Sarwat Jerry RN - 01/06/2020 6504 EDT Problem: Daily Care Plan Goals Goal: Care Plan Documentation Outcome: Ongoing Flowsheets (Taken 01/05/2020 1306 by Viji Valle RN) Area of Focus: Neuro Status Goal This Shift: Neuro status stable Data: assumed care at 1900 from day Viji [place]ON[place]. Pt arrived from OR s/p clipping of right MCA aneurysm. SBP goal of 100-140, nicardipine gtt infusing to meet goals. Action: Report received, alarm parameters reviewed and set, assumed care of patient. Plan to continuously monitor hemodynamics, neuro, cardiovascular, respiratory, GI/ status. Provide treatment forpain/anxiety & support for patient/family. Hourly neuros, clustered care. Tylenol and oxycodone for pain. Encouraged repositioning, weaned O2. Response: pt remains neurologically intact overnight, nicardipine gtt and oxygen weaned to off. States pain control is adequate. Able to make needs known, will continue to monitor. SARWAT JERRY RN 01/06/2020 3:29 * Plan of Care - Viji Valle RN - 01/05/2020 1716 EDT Problem: Daily Care Plan Goals Goal: Care Plan Documentation Flowsheets (Taken 01/05/2020 1306) Area of Focus: Neuro Status Goal This Shift: Neuro status stable Note: Data: POD #0 Crani. Pt drowsy upon arrival from OR, but opened eyes to voice. Shortly after arrival, pt more awake, oriented to person/place/time/events, endorsing 7/10 pain and medicated with 5mg oxy and tylenol see MAR. Action: Neuro exam stable since arrival from OR. Pt came from OR with Nicardipine infusion running and to keep SBP <140, has been maintained since arrival from OR, see MAR. Plan is to go to CT Head at 1800. PERRLA 3mm bilaterally, Asmita strong and equal all around. Response: Will continue to monitor. Pt able to turn self in bed. VSS, will report any changes to NSif anything is noted on exam. VIJI VALLE RN 01/05/2020 17:16 1710: Crani site bulb drain is not holding suction. Has put out 100mL since OR arrival. Paged NS tonotify that drain is not holding suction - awaiting response. * Brief Op Note - Kyra Salas DO - 01/05/2020 1221 EDT Neurosurgery Brief Op Note Surgeon: Alfonzo Cobb MD Body Technician/Painter: Antoine Castaneda MD & Kyra Salas DO Pre-Op Diagnosis: unruptured right MCA aneurysm Post-Op Diagnosis: Same Procedure: Right pterional craniotomy for clipping of right MCA aneurysm Anesthesia: general Findings: see complete op report Estimated Blood Loss: 50cc IV Fluids: see anesthesia record Urine Output: see anesthesia record Specimens: none Cultures: n/a Drains/Foreign Materials: subgaleal PAMELA x1 Skin: 3-0 monocryl (absorbable) Complications: none Condition of Patient: stable Disposition: SICU HOB >30 degrees Diet and activity as tolerated Monitor and record drain output CT head this evening Pain control Keppra x7 days Kyra Salas DO Neurosurgery Pager [phone] * PAT Note - Sherry Martin DO - 12/24/2019 1252 EDT 59 year old female with PMH cerebral artery occlusion,Cirrohosis,diabetes,HTN,thyroid disease,SOCORRO (no CPAP),GERD,Right MCA aneurysm.H&P 01/03/2020. Please review MARIE JASSO APRN Review completed by Dr Wallis and secondarily reviewed by me at the request of Marie Jasso APRN. Pt for right craniotomy for surgical clipping of right middle cerebral aneurysm, was seen in ED on 12/25/2019 for worsening right sided head pain and blurred vision. CT was significant for previously known MCA aneurysm. Neurosurgery aware of event. No further w/u necessary. documented in this encounter Plan of Treatment Not on file documented as of this encounter Procedures Procedure Name Priority Date/Time Associated Diagnosis Comments PROCEDURE REPORTS - SCANNED 02/08/2020 9:02 EDT POCT GLUCOSE, INTERFACED Routine 01/07/2020 8:14 EDT COMPLETE BLOOD COUNT AND DIFFERENTIAL Routine 01/07/2020 3:40 EDT BUN Routine 01/07/2020 3:40 EDT CREATININE Routine 01/07/2020 3:40 EDT ELECTROLYTES Routine 01/07/2020 3:40 EDT POCT GLUCOSE, INTERFACED Routine 01/06/2020 21:06 EDT POCT GLUCOSE, INTERFACED Routine 01/06/2020 16:47 EDT POCT GLUCOSE, INTERFACED Routine 01/06/2020 11:33 EDT POCT GLUCOSE, INTERFACED Routine 01/06/2020 7:29 EDT DRY POWDERED OR METERED DOSE INHALER Routine 01/06/2020 6:00 EDT COMPLETE BLOOD COUNT AND DIFFERENTIAL Routine 01/06/2020 4:00 EDT BUN Routine 01/06/2020 4:00 EDT CREATININE Routine 01/06/2020 4:00 EDT ELECTROLYTES Routine 01/06/2020 4:00 EDT POCT GLUCOSE, INTERFACED Routine 01/05/2020 20:[address] HEAD WO CONTRAST Routine 01/05/2020 18:13 EDT DRY POWDERED OR METERED DOSE INHALER Routine 01/05/2020 18:00 EDT POCT GLUCOSE, INTERFACED Routine 01/05/2020 16:42 EDT DRY POWDERED OR METERED DOSE INHALER Routine 01/05/2020 14:41 EDT DRY POWDERED OR METERED DOSE INHALER Routine 01/05/2020 14:41 EDT POCT GLUCOSE, INTERFACED Routine 01/05/2020 12:42 EDT POCT BLOOD GAS, CG8 I-STAT Routine 01/05/2020 9:53 EDT PATIENT RE-TYPE Routine 01/05/2020 8:12 EDT PREPARE RED BLOOD CELLS Routine 01/05/2020 7:34 EDT PREPARE RED BLOOD CELLS Routine 01/05/2020 7:34 EDT INTRACRANIAL ANEURYSM, SIMPLE, INTRACRANIAL 01/05/2020 7:30 EDT Cerebral aneurysm, nonruptured Special Needs Neuroanesthesia, IOM - Dr. Serrano confirmed 12/02/19. Nuvasive confirmed via email 12/04/19. Confirmation #: [id number] TYPE AND SCREEN STAT 01/05/2020 7:10 EDT POCT GLUCOSE, INTERFACED Routine 01/05/2020 7:06 EDT ECG REPORT - SCANNED 01/04/2020 16:15 EDT documented in this encounter Results * PROCEDURE REPORTS - SCANNED (02/08/2020 9:02 EDT) 02/08/2020 9:02 EDT Scan 2 Stage Director PROCEDURE/MINOR LAURY GICAL ORDERABLES * (ABNORMAL) POCT GLUCOSE, INTERFACED (01/07/2020 8:14 EDT) Glucose, POC 209(H) 70 - 100 mg/dL 01/07/2020 8:19 EDT [facility] brewery worker [place] [id number] 01/07/2020 8:19 EDT [facility] HN LAB POC COMMENT (GLUCOSE) Test Performed by Nursing Services 01/07/2020 8:19 EDT [facility] Blood CAPILLARY BLOOD / Unknown 01/07/2020 8:14 EDT 01/07/2020 8:19 EDT Kyra Salas DO POINT OF CARE TEST ORDERABLES [facility] [address] [place] [address] * (ABNORMAL) COMPLETE BLOOD COUNT AND DIFFERENTIAL (01/07/2020 3:40 EDT) WBC 7.23 4.00 - 12.40 K/cmm 01/07/2020 4:25 EDT [facility] RBC 3.44(L) 3.86 - 5.04 M/cmm 01/07/2020 4:25 EDT [facility] Hemoglobin 10.0(L) 11.6 - 15.2 gm/dL 01/07/2020 4:25 [facility] HCT 30.1(L) 34.9 - 44.4 % 01/07/2020 4[facility] MCV 88 81 - 98 fl 01/07/2020 4:25 [facility] MCH 29.1 26.7 - 33.3 pg 01/07/2020 4:[facility] MCHC 33.2 32.1 - 35.9 gm/dL 01/07/2020 4:25 [facility] RDW-CV 14.6 <14.7 % 01/07/2020 4:25 [facility] RDW-SD 45.7 <50.4 fl 01/07/2020 4:25 [facility] PLT 111(L) 141 - 377 K/cmm 01/07/2020 4:25 [facility] MPV 9.6 9.5 - 12.7 fl 01/07/2020 4:25 [facility] % Neutrophils 71.5 % 01/07/2020 4:25 [facility] % Lymphocytes 19.1 % 01/07/2020 4:25 [facility] % Monocytes 7.3 % 01/07/2020 4:25 [facility] % Eosinophils 0.3 % 01/07/2020 4:25 [facility] % Basophils 0.3 % 01/07/2020 4:25 EDT [facility] % Immature Grans 1.5 % 01/07/20 20 4:25 EDT [facility] Absolute Neutrophils 5.17 2.20 - 8.85 K/cmm 01/07/2020 4:25 EDT [facility] Absolute Lymphocytes 1.38 1.09 - 3.30 K/cmm 01/07/2020 4:25 EDT [facility] Absolute Monocytes 0.53 0.10 - 0.80 K/cmm 01/07/2020 4:25 EDT [facility] Absolute Eosinophils 0.02(L) 0.03 - 0.61 K/cmm 01/07/2020 4:25 EDT [facility] ABS Basophils 0.02 0.01 - 0.11 K/cmm 01/07/2020 4:25 EDT [facility] Absolute Immature Grans 0.11(H) 0.00 - 0.06 K/cmm 01/07/2020 4:25 EDT [facility] Type of Differential: Auto 01/07/2020 4:25 T [facility] Blood VENOUS BLOOD / Unknown Venipuncture / Unknown 01/07/2020 3:40 EDT 01/07/2020 4:16 EDT Kyra Salas DO PACKAGES & DNA PROB E ORDERABLES Performing Organization Address City/State/[facility] Co de Phone Number [facility] [address] [place] [address] * CREATININE (01/07/2020 3:40 EDT) Creatinine 0.68 0.52 - 1.04 mg/dL 01/07/2020 5:11 EDT [facility] eGFR 96 >60 mL/min/1.7 3m2 01/07/2020 5:11 T [facility] Comment:eGFR calculated farhana g CKD-EPI equation for non- Americans. Multiply eGFR by 1.16 for patients. Blood VENOUS BLOOD / Unknown Venipuncture / Unknown 01/07/2020 3:40 EDT 01/07/2020 4:45 EDT Kyra Valencias DO CHEMISTRY & BLOOD G ORDERABLES Performing Organization Address City/[facility]/ZIP Co de Phone Number [facility] [address] [place] [address] * BUN (01/07/2020 3:40 EDT) BUN 17 10 - 26 mg/dL 01/07/2020 5:11 EDT [facility] Blood VENOUS BLOOD / Unknown Venipuncture / Unknown 01/07/2020 3:40 EDT 01/07/2020 4:45 EDT Kyra Salas DO CHEMISTRY & BLOOD G ORDERABLES Performing Organization Address [facility] de Phone Number [facility] [address] [place] [address] * ELECTROLYTES (01/07/2020 3:40 EDT) Sodium 141 136 - 145 mEq/L 01/07/2020 5:11 EDT [facility] Potassium 4.5 3.5 - 5.0 mEq/L 01/07/2020 5:11 EDT [facility] Chloride 101 96 - 110 mEq/L 01/07/2020 5:11 EDT [facility] CO2 Total 27 22 - 32 mEq/L 01/07/2020 5:11 EDT [facility] Blood VENOUS BLOOD / Unknown Venipuncture / Unknown 01/07/2020 3:40 EDT 01/07/2020 4:45 EDT Kyra Valencias DO CHEMISTRY & BLOOD G ORDERABLES Performing Organization Address City/[facility]/ZIP Co de Phone Number [facility] [address] [place] [address] * (ABNORMAL) POCT GLUCOSE, INTERFACED (01/06/2020 21:06 EDT) Glucose, POC 166(H) 70 - 100 mg/dL 01/06/2020 21:11 EDT [facility] brewery worker [place] [id number] 01/06/2020 21:11 EDT [facility] HN LAB POC COMMENT (GLUCOSE) Test Performed by Nursing Services 01/06/2020 21:11 EDT [facility] Blood CAPILLARY BLOOD / Unknown 01/06/2020 21:06 EDT 01/06/2020 21:11 EDT Kyra Salas DO POINT OF CARE TEST ORDERABLES Performing Organization Address [facility]/ZIP Co de Phone Number [facility] [address] [place] [address] * (ABNORMAL) POCT GLUCOSE, INTERFACED (01/06/2020 16:47 EDT) Glucose, POC 169(H) 70 - 100 mg/dL 01/06/2020 16:51 EDT [facility] brewery worker ID [id number] 01/06/2020 16:51 EDT [facility] HN LAB POC COMMENT (GLUCOSE) Test Performed by Nursing Services 01/06/2020 16:51 EDT [facility] Blood CAPILLARY BLOOD / Unknown 01/06/2020 16:47 EDT 01/06/2020 16:51 EDT Kyra Salas DO POINT OF CARE TEST ORDERABLES Performing Organization Address [facility] Co de Phone Number [facility] [address] [place] [address] * (ABNORMAL) POCT GLUCOSE, INTERFACED (01/06/2020 11:33 EDT) Glucose, POC 177(H) 70 - 100 mg/dL 01/06/2020 11:38 EDT [facility] brewery worker ID [id number] 01/06/2020 11:38 EDT [facility] HN LAB POC COMMENT (GLUCOSE) Test Performed by Nursing Services 01/06/2020 11:38 EDT [facility] Blood CAPILLARY BLOOD / Unknown 01/06/2020 11:33 EDT 01/06/2020 11:38 EDT Alfonzo Cobb MD POINT OF CARE TEST ORDERABLES Performing Organization Address City/[facility]/ZIP Co de Phone Number [facility] [address] [place] [address] * (ABNORMAL) POCT GLUCOSE, INTERFACED (01/06/2020 7:29 EDT) Glucose, POC 145(H) 70 - 100 mg/dL 01/06/2020 19:51 EDT [facility] brewery worker ID [id number] 01/06/2020 19:51 EDT [facility] HN LAB POC COMMENT (GLUCOSE) Test Performed by Nursing Services 01/06/2020 19:51 EDT [facility] Blood CAPILLARY BLOOD / Unknown 01/06/2020 7:29 EDT 01/06/2020 19:51 EDT Kyra Salas DO POINT OF CARE TEST ORDERABLES Performing Organization Address [facility] de Phone Number [facility] [address] [place] [address] * (ABNORMAL) COMPLETE BLOOD COUNT AND DIFFERENTIAL (01/06/2020 4:00 EDT) [facility] WBC 8.77 4.00 - 12.40 K/cmm 01/06/2020 4:19 [facility] RBC 3.49(L) 3.86 - 5.04 M/cmm 01/06/2020 4:19 [facility] Hemoglobin 10.0(L) 11.6 - 15.2 gm/dL 01/06/2020 4:19 [facility] HCT 29.8(L) 34.9 - 44.4 % 01/06/2020 4:19 [facility] MCV 85 81 - 98 fl 01/06/2020 4:19 [facility] MCH 28.7 26.7 - 33.3 pg 01/06/2020 4:19 [facility] MCHC 33.6 32.1 - 35.9 gm/dL 01/06/2020 4:19 [facility] RDW-CV 14.4 <14.7 % 01/06/2020 4:19 [facility] RDW-SD 44.2 <50.4 fl 01/06/2020 4:19 [facility] PLT 114(L) 141 - 377 K/cmm 01/06/2020 4:19 [facility] MPV 9.4(L) 9.5 - 12.7 fl 01/06/2020 4:19 [facility] % Neutrophils 83.4 % 01/06/2020 4:19 [facility] % Lymphocytes 10.4 % 01/06/2020 4:19 [facility] % Monocytes 4.8 % 01/06/2020 4:19 [facility] % Eosinophils 0.1 % 01/06/2020 4:19 [facility] % Basophils 0.2 % 01/06/2020 4:19 [facility] % Immature Grans 1.1 % 01/06/20 20 4:19 [facility] Absolute Neutrophils 7.31 2.20 - 8.85 K/cmm 01/06/2020 4:19 [facility] Absolute Lymphocytes 0.91(L) 1.09 - 3.30 K/cmm 01/06/2020 4:19 [facility] Absolute Monocytes 0.42 0.10 - 0.80 K/cmm 01/06/2020 4:19 [facility] Absolute Eosinophils 0.01(L) 0.03 - 0.61 K/cmm 01/06/2020 4:19 [facility] ABS Basophils 0.02 0.01 - 0.11 K/cmm 01/06/2020 4:19 [facility] Absolute Immature Grans 0.10(H) 0.00 - 0.06 K/cmm 01/06/2020 4:19 [facility] Type of Differential: Auto 01/06/2020 4:19 [facility] Blood VENOUS BLOOD / Unknown Venipuncture / Unknown 01/06/2020 4:00 EDT 01/06/2020 4:05 EDT Kyra R Limoges DO PACKAGES & DNA PROB E ORDERABLES Performing Organization Address [facility] Co de Phone Number [facility] [address] [place] [address] * CREATININE (01/06/2020 4:00 EDT) Creatinine 0.61 0.52 - 1.04 mg/dL 01/06/2020 4:26 EDT [facility] eGFR 100 >60 mL/min/1.7 3m2 01/06/2020 4:26 EDT [facility] Comment:eGFR calculated farhana mcclendon CKD-EPI equation for non- Americans. Multiply eGFR by 1.16 for patients. Blood VENOUS BLOOD / Unknown Venipuncture / Unknown 01/06/2020 4:00 EDT 01/06/2020 4:05 EDT Kyra Salas DO CHEMISTRY & BLOOD G ORDERABLES Performing Organization Address [facility] Co de Phone Number [facility] [address] [place] [address] * BUN (01/06/2020 4:00 EDT) BUN 13 10 - 26 mg/dL 01/06/2020 4:26 EDT [facility] Blood VENOUS BLOOD / Unknown Venipuncture / Unknown 01/06/2020 4:00 EDT 01/06/2020 4:05 EDT Kyra R Yungmatts DO CHEMISTRY & BLOOD G ORDERABLES Performing Organization Address [facility] Co de Phone Number [facility] [address] [place] [address] * ELECTROLYTES (01/06/2020 4:00 EDT) Sodium 141 136 - 145 mEq/L 01/06/2020 4:26 EDT [facility] Potassium 4.5 3.5 - 5.0 mEq/L 01/06/2020 4:26 EDT [facility] Chloride 104 96 - 110 mEq/L 01/06/2020 4:26 EDT [facility] CO2 Total 25 22 - 32 mEq/L 01/06/2020 4:26 EDT [facility] Blood VENOUS BLOOD / Unknown Venipuncture / Unknown 01/06/2020 4:00 EDT 01/06/2020 4:05 EDT Kyra Salas DO CHEMISTRY & BLOOD G ORDERABLES Performing Organization Address City/[facility] Co de Phone Number [facility] [address] [place] [address] * (ABNORMAL) POCT GLUCOSE, INTERFACED (01/05/2020 20:32 EDT) Glucose, POC 218(H) 70 - 100 mg/dL 01/05/2020 20:37 EDT [facility] brewery worker ID [id number] 01/05/2020 20:37 EDT [facility] HN LAB POC COMMENT (GLUCOSE) Test Performed by Nursing Services 01/05/2020 20:37 EDT [facility] Blood CAPILLARY BLOOD / Unknown 01/05/2020 20:32 EDT 01/05/2020 20:37 EDT Kyra Salas DO POINT OF CARE TEST ORDERABLES Performing Organization Address City/[facility] Co de Phone Number [facility] [address] [place] [address] * CT HEAD WO CONTRAST (01/05/2020 18:13 EDT) Anatomical Region Laterality Modality Head Computed Tomogra phy 01/06/2020 12:5 8 EDT Impressions 01/06/2020 12:58 EDT Changes related to interval right MCA aneurysm clipping, as above. A small amount of subarachnoid hemorrhage is present along the lateral aspect of the clip. I have personally reviewed the images and the above interpretation and agree with the findings. Narrative 01/06/2020 12:58 EDT EXAM: CT HEAD WO CONTRAST HISTORY: Cerebral aneurysm, status post right pterional craniotomy and right MCA aneurysm clipping. TECHNIQUE: CT head without contrast. Structured report code: [id number] COMPARISON: Outside head and neck CTA from December 25, 2019 FINDINGS: PARENCHYMA: No evidence of infarction. No acute parenchymal hemorrhage. No mass or midline shift. Diffuse parenchymal volume loss is mild, if present. EXTRA-AXIAL SPACES: Small amount of subarachnoid hemorrhage noted lateral to the aneurysm clip. Small amount of blood products are noted in the epidural space subjacent to the craniotomy. Small volume pneumocephalus, predominantly over the right frontal lobe. No extra-axial mass. VENTRICULAR SYSTEM: No obstructive hydrocephalus. No acute intraventricular hemorrhage. VESSELS: Limited evaluation without IV contrast. Normal density in the dural venous sinuses. Calcifications are present in the carotid siphons and intradural vertebral arteries. BONES: No concerning lesions. No evidence of fracture. Craniotomy noted. ORBITS: No significant abnormality. PARANASAL SINUSES/MASTOID AIR CELLS: Scattered mural thickening noted in the paranasal sinuses with small volume layering fluid in the left sphenoid sinus. Mastoid air cells are predominantly clear. EXTRACRANIAL SOFT TISSUES: Scalp drain noted over the craniotomy. Surgical changes noted. No concerning abnormality. Procedure Note Rogelio Bowers MD - 01/06/2020 EXAM: CT HEAD WO CONTRAST HISTORY: Cerebral aneurysm, status post right pterional craniotomy andright MCA aneurysm clipping. TECHNIQUE: CT head without contrast. Structured report code: [email or web address] COMPARISON: Outside head and neck CTA from December 25, 2019 FINDINGS: PARENCHYMA: No evidence of infarction. No acute parenchymal hemorrhage. No mass ormidline shift. Diffuse parenchymal volume loss is mild, if present. EXTRA-AXIAL SPACES: Small amount of subarachnoid hemorrhage noted lateral to the aneurysmclip. Small amount of blood products are noted in the epidural spacesubjacent to the craniotomy. Small volume pneumocephalus, predominantlyover the right frontal lobe. No extra- axial mass. VENTRICULAR SYSTEM: No obstructive hydrocephalus. No acute intraventricular hemorrhage. VESSELS: Limited evaluation without IV contrast. Normal density in the dural venoussinuses. Calcifications are present in the carotid siphons and intraduralvertebral arteries. BONES: No concerning lesions. No evidence of fracture. Craniotomy noted. ORBITS: No significant abnormality. PARANASAL SINUSES/MASTOID AIR CELLS: Scattered mural thickening noted in the paranasal sinuses with smallvolume layering fluid in the left sphenoid sinus. Mastoid air cells arepredominantly clear. EXTRACRANIAL SOFT TISSUES: Scalp drain noted over the craniotomy. Surgical changes noted. Noconcerning abnormality. IMPRESSION Changes related to interval right MCA aneurysm clipping, as above. A smallamount of subarachnoid hemorrhage is present along the lateral aspect ofthe clip. I have personally reviewed the images and the above interpretation andagree with the findings. Kyra Salas DO IMG CT ORDERABLES * (ABNORMAL) POCT GLUCOSE, INTERFACED (01/05/2020 16:42 EDT) Glucose, POC 197(H) 70 - 100 mg/dL 01/05/2020 16:46 EDT [facility] brewery worker ID [id number] 01/05/2020 16:46 EDT [facility] HN LAB POC COMMENT (GLUCOSE) Test Performed by Nursing Services 01/05/2020 16:46 EDT [facility] Blood CAPILLARY BLOOD / Unknown 01/05/2020 16:42 EDT 01/05/2020 16:46 EDT Kyra Salas DO POINT OF CARE TEST ORDERABLES Performing Organization Address City/[facility]/ZIP Co de Phone Number [facility] [address] [place] [address] * (ABNORMAL) POCT GLUCOSE, INTERFACED (01/05/2020 12:42 EDT) Glucose, POC 179(H) 70 - 100 mg/dL 01/05/2020 12:46 EDT [facility] brewery worker ID [id number] 01/05/2020 12:46 EDT [facility] HN LAB POC COMMENT (GLUCOSE) Test Performed by Nursing Services 01/05/2020 12:46 EDT [facility] Blood CAPILLARY BLOOD / Unknown 01/05/2020 12:42 EDT 01/05/2020 12:46 EDT Alfonzo Cobb MD POINT OF CARE TEST ORDERABLES Performing Organization Address City/[facility]/ZIP Co de Phone Number [facility] [address] [place] [address] * (ABNORMAL) POCT BLOOD GAS, CG8 I-STAT (01/05/2020 9:53 EDT) iSTAT pH 7.39 7.35 - 7.45 01/05/2020 9:58 [facility] iSTAT pCO2 37 35 - 45 mmHg 01/05/2020 9:58 [facility] i-STAT pO2 68(L) 80 - 105 mmHg 01/05/2020 9:58 [facility] iSTAT TCO2 23 23 - 27 mmol/L 01/05/2020 9:58 [facility] i-STAT O2 Saturation 93(L) 95 - 98 % 01/05/2020 9:58 [facility] iSTAT Sodium 135(L) 136 - 145 mmol/L 01/05/2020 9:58 [facility] iSTAT Potassium 3.7 3.5 - 5.0 mmol/L 01/05/2020 9:58 [facility] iSTAT Glucose 117(H) 70 - 100 mg/dL 01/05/2020 9:58 [facility] iSTAT Hematocrit 31(L) 35 - 44 % PCV 01/05/2020 9:58 [facility] iSTAT Ionized Calcium 1.11(L) 1.12 - 1.32 mmol/L 01/05/2020 9:58 [facility] Base Deficit, i-STAT 2 -2 - 3 01/05/2020 9:58 [facility] Sample Source ARTERIAL 01/05/2020 9:58 [facility] brewery worker ID [id number] 01/05/2020 9:58 [facility] HN LAB POC COMMENT (CG8) Test performed by Anesthesia. For non-arterial reference ranges, please see ISTAT procedure. 01/05/2020 9:58 [facility] Comment:For arterial collect ion, the Laboratory recommends that the Modified Arnav test be performed to determine that collateral circulation is present from the ulnar artery in the event that thrombosis of the radial artery should occur. Performance of the Modified Arnav test should be documented in the patients' chart Blood ARTERIAL BLOOD / Unknown 01/05/2020 9:53 EDT 01/05/2020 9:57 EDT Alfonzo Cobb MD POINT OF CARE TEST ORDERABLES Performing Organization Address City/[facility]/ZIP Co de Phone Number [facility] [address] [place] [address] * PATIENT RE-TYPE (01/05/2020 8:12 EDT) ABO O 01/05/2020 8:25 EDT [facility] Rh Factor Positive 01/05/2020 8:25 EDT [facility] Blood VENOUS BLOOD / Unknown Venipuncture / Unknown 01/05/2020 8:12 EDT 01/05/2020 8:12 EDT Kenton Barnett MD BLOOD BANK TESTS Performing Organization Address [facility] de Phone Number [facility] [address] [place] [address] * PREPARE RED BLOOD CELLS (01/05/2020 7:34 EDT) Product Code [id number] [facility] Donor Number [id number] U [facility] Unit ABO O [facility] Unit Rh POS [facility] Unit Status RE^Released From Crossmatch [facility] Product Expiration Date [id number] [facility] Unit Blood Type Code 5100 [facility] Volume 281 [facility] Coding System [id number] [facility] 01/05/2020 7:34 EDT Alfonzo Cobb MD BLOOD BANK ORDERABL ES Performing Organization Address [facility]/ZIP Co de Phone Number [facility] [address] [place] [address] * PREPARE RED BLOOD CELLS (01/05/2020 7:34 EDT) Product Code [id number] [facility] Donor Number [id number] U [facility] Unit ABO O [facility] Unit Rh POS [facility] Unit Status RE^Released From [employer] [facility] Product Expiration Date [id number] [facility] Unit Blood Type Code 5100 [facility] Volume 280 [facility] Coding System [id number] [facility] 01/05/2020 7:34 EDT Alfonzo Cobb MD BLOOD BANK ORDERABL ES Performing Organization Address City/[facility]/ZIP Co de Phone Number [facility] [address] [place] [address] * TYPE AND SCREEN (01/05/2020 7:10 EDT) ABO O 01/05/2020 8:04 EDT [facility] Rh Factor Positive 01/05/2020 8:04 EDT [facility] Antibody Screen Negative 01/05/2020 8:04 EDT [facility] Specimen Expires: 01/08/2020 @ 23:59 01/05/2020 8:04 EDT [facility] Blood VENOUS BLOOD / Unknown Venipuncture / Unknown 01/05/2020 7:10 EDT 01/05/2020 7:22 EDT Alfonzo Cobb MD BLOOD BANK TESTS Performing Organization Address City/[facility]/ZIP Co de Phone Number [facility] [address] [place] [phone] * (ABNORMAL) POCT GLUCOSE, INTERFACED (01/05/2020 7:06 EDT) Glucose, POC 113(H) 70 - 100 mg/dL 01/05/2020 7:11 EDT [facility] brewery worker ID [id number] 01/05/2020 7:11 EDT [facility] HN LAB POC COMMENT (GLUCOSE) Test Performed by Nursing Services 01/05/2020 7:11 EDT [facility] Blood CAPILLARY BLOOD / Unknown 01/05/2020 7:06 EDT 01/05/2020 7:10 EDT Alfonzo Cobb MD POINT OF CARE TEST ORDERABLES [facility] [address] [place] [address] * ECG REPORT - SCANNED (01/04/2020 16:15 EDT) 01/04/2020 16:1 5 EDT Scan 2 Stage Director PROCEDURE/MINOR LAURY GICAL ORDERABLES documented in this encounter Visit Diagnoses Diagnosis Cerebral aneurysm, nonruptured- Primary Cerebral aneurysm, nonruptured Aneurysm ([facility]) Aneurysm of unspecified site documented in this encounter Admitting Diagnoses Diagnosis Cerebral aneurysm, nonruptured documented in this encounter Administered Medications Inactive Administered Medications - up to 3 most recent administrations Medication Order MAR Action Action Date Dose Rate Site acetaminophen (TYLENOL) solution unit dose cup 650 mg 650 mg, per ng tube, EVERY 4 HOURS PRN, Starting on Fri01/05/20 at 1230, Until Fri01/07/20 at 1216, Pain, Routine, Release acetaminophen (TYLENOL) suppository 650 mg 650 mg, rectal, EVERY 4 HOURS PRN, Starting on Fri01/05/20 at 1230, Until Fri01/07/20 at 1216, Pain, Routine, Release acetaminophen (TYLENOL) tablet 650 mg 650 mg, oral, EVERY 4 HOURS PRN, Starting on Fri01/05/20 at 1230, Until Fri01/07/20 at 1216, Pain, Routine, Release Given 01/07/2020 8:49 EDT 650 mg Given 01/06/2020 17:24 EDT 650 mg Given 01/06/2020 12:39 EDT 650 mg carvediloL (COREG) tablet 6.25 mg 6.25 mg, oral, 2 TIMES DAILY, First dose on Fri01/05/20 at 2100, Until Discontinued, Routine Given 01/07/2020 8:49 EDT 6. 25 mg Given 01/06/2020 21:09 EDT 6.25 mg Given 01/06/2020 8:30 EDT 6.25 mg clindamycin (CLEOCIN) IVPB 900 mg 900 mg, intravenous, Administer over 30 Minutes, PRE-OP ONCE, 1 dose, On Fri01/05/20 at 0645, Routine, Preprocedure Given 01/05/2020 7:33 EDT 900 mg cyanocobalamin (VITAMIN B-12) tablet 1,000 mcg 1,000 mcg, oral, DAILY, First dose on Fri01/06/20 at 0900, Until Discontinued, Routine Given 01/07/2020 8:48 EDT 1,000 mcg Given 01/06/2020 12:39 EDT 1,000 mcg dexAMETHasone (DECADRON) tablet 4 mg 4 mg, oral, EVERY 12 HOURS, First dose on Fri01/05/20 at 2100, Until Discontinued, Routine Given 01/07/2020 8:49 EDT 4 mg Given 01/06/2020 21:09 EDT 4 mg Given 01/06/2020 8:30 EDT 4 mg docusate sodium (COLACE) capsule 100 mg 100 mg, oral, 2 TIMES DAILY, First dose on Fri01/05/20 at 1300, Until Discontinued, Routine, Release Given 01/07/2020 8:49 EDT 100 mg Given 01/06/2020 21:09 EDT 100 mg Given 01/06/2020 8:29 EDT 100 mg enoxaparin (LOVENOX) injection 40 mg 40 mg, subcutaneous, DAILY, First dose on Fri01/06/20 at 0900, Until Discontinued, Routine, Release Given 01/07/2020 8:49 EDT 40 mg Given 01/06/2020 8:32 EDT 40 mg fentaNYL citrate (PF) injection 25-50 mcg 25-50 mcg, intravenous, EVERY 1 HOUR PRN, Starting on Fri01/05/20 at 1232, Until Fri01/06/20 at 1231, Pain, For breakthrough pain not controlled with oral medications., Routine, Release Given 01/05/2020 20:53 EDT 50 mcg fluticasone propion-salmeteroL (ADVAIR) 250-50 mcg/dose diskus inhaler 1 Puff 1 Puff, inhalation, 2 TIMES DAILY, First dose on Fri01/05/20 at 2100, Until Discontinued Given 01/07/2020 8:02 EDT 1 Pu ff Given 01/06/2020 21:14 EDT 1 Puff Given 01/06/2020 8:26 EDT 1 Puff furosemide (LASIX) tablet 20 mg 20 mg, oral, DAILY, First dose on Fri01/06/20 at 0900, Until Discontinued, Routine Given 01/07/2020 8:48 EDT 20 mg Given 01/06/2020 8:30 EDT 20 mg gabapentin (NEURONTIN) capsule 800 mg 800 mg, oral, 3 TIMES DAILY, First dose on Fri01/05/20 at 1400, Until Discontinued Given 01/07/2020 8:49 EDT 800 mg Given 01/06/2020 21:10 EDT 800 mg Given 01/06/2020 14:28 EDT 800 mg insulin aspart U-100 (NOVOLOG FLEXPEN) injection subcutaneous, 3 TIMES DAILY WITH MEALS, First dose on Fri01/05/20 at 1700, Until Discontinued, Routine Given 01/07/2020 8:50 EDT 4 Units Given 01/06/2020 17:25 EDT 3 Units Given 01/06/2020 12:40 EDT 3 Units lactated ringers (LR) infusion 30 mL/hr, intravenous, CONTINUOUS, Starting on Fri01/05/20 at 0645, Until Fri01/05/20 at 1306, Routine, Preprocedure New Bag 01/05/2020 9:01 EDT Continued by Anesthesia 01/05/2020 7:35 EDT New Bag 01/05/2020 7:14 EDT 30 mL/hr 30 mL/hr levETIRAcetam (KEPPRA) 500 mg in sodium chloride (NS) 0.9 % 100 mL IVPB 500 mg, intravenous, Administer over 15 Minutes, EVERY 12 HOURS, 14 doses, First dose on Fri01/05/20 at 2100, Last dose on Fri01/12/20 at 0900, Routine, Release levETIRAcetam (KEPPRA) tablet 500 mg 500 mg, oral, EVERY 12 HOURS, 14 doses, First dose on Fri01/05/20 at 2100, Last dose on Fri01/12/20 at 0900, Routine, Release Given 01/07/2020 8:48 EDT 500 mg Given 01/06/2020 21:09 EDT 500 mg Given 01/06/2020 8:31 EDT 500 mg levothyroxine (SYNTHROID) tablet 50 mcg 50 mcg, oral, DAILY BEFORE BREAKFAST, First dose on Koki 9/24/20 at 0700, Until Discontinued, Routine Given 01/06/2020 6:37 EDT 50 mcg lisinopriL (PRINIVIL) tablet 10 mg 10 mg, oral, DAILY, First dose on Fri01/06/20 at 0900, Until Discontinued, Routine Given 01/07/2020 8:49 EDT 10 mg Given 01/06/2020 8:30 EDT 10 mg loratadine (CLARITIN) tablet 10 mg 10 mg, oral, DAILY, First dose on Fri01/06/20 at 0900, Until Discontinued, Routine Given 01/07/2020 8:48 EDT 10 mg Given 01/06/2020 8:30 EDT 10 mg metFORMIN (GLUCOPHAGE) tablet 1,000 mg 1,000 mg, oral, 2 TIMES DAILY, First dose on Fri01/05/20 at 2100, Until Discontinued, Routine Given 01/07/2020 8:48 EDT 1,000 mg Given 01/06/2020 21:09 EDT 1,000 mg Given 01/06/2020 8:29 EDT 1,000 mg methocarbamoL (ROBAXIN) tablet 750 mg 750 mg, oral, 4 TIMES DAILY, First dose on Fri01/05/20 at 2130, Until Discontinued, Routine Given 01/07/2020 8:49 EDT 75 0 mg Given 01/06/2020 21:09 EDT 750 mg Given 01/06/2020 17:24 EDT 750 mg mirtazapine (REMERON) tablet 15 mg 15 mg, oral, AT BEDTIME, First dose on Fri01/05/20 at 2100, Until Discontinued, Routine Given 01/06/2020 21:09 EDT 1 5 mg Given 01/05/2020 20:12 EDT 15 mg niCARdipine (CARDENE) 25 mg in sodium chloride (NS) 0.9 % 250 mL peripheral infusion 2.5-15 mg/hr (25-150 mL/hr), intravenous, CONTINUOUS, Starting on Fri01/05/20 at 1345, Until Fri01/05/20 at 2008, STAT Rate Documented 01/05/2020 20:00 EDT 5 mg/hr 50 mL/hr Rate Change 01/05/2020 19:30 EDT 5 mg/hr 50 mL/hr New Bag 01/05/2020 17:03 EDT 8 mg/hr 80 mL/hr niCARdipine (CARDENE) 50 mg in sodium chloride (NS) 0.9 % 500 mL peripheral infusion 2.5-15 mg/hr (25-150 mL/hr), intravenous, CONTINUOUS, Starting on Fri01/05/20 at 2000, Until Fri01/06/20 at 1834, Routine Rate Documented 01/06/2020 0:00 EDT 2.5 mg/hr 25 mL/hr Rate Change 01/05/2020 23:08 EDT 2.5 mg/hr 25 mL/hr Rate Documented 01/05/2020 23:00 EDT 5 mg/hr 50 mL/hr ondansetron (PF) (ZOFRAN) injection 4 mg 4 mg, intravenous, EVERY 4 HOURS PRN, Starting on Fri01/05/20 at 1233, Until Fri01/07/20 at 1216, Nausea, Routine, Release Given 01/06/2020 9:55 EDT 4 mg Given 01/05/2020 21:05 EDT 4 mg oxyCODONE (ROXICODONE) immediate release tablet 5-15 mg 5-15 mg, oral, EVERY 4 HOURS PRN, Starting on Fri01/05/20 at 1232, Until Fri01/07/20 at 1216, Pain, discomfort, Routine, Release Given 01/07/2020 8:48 EDT 10 mg Given 01/06/2020 21:10 EDT 10 mg Given 01/06/2020 17:24 EDT 15 mg pantoprazole (PROTONIX) tablet 40 mg 40 mg, oral, 2 TIMES DAILY, First dose on Fri01/05/20 at 2100, Until Discontinued, Routine Given 01/07/2020 8:49 EDT 40 mg Given 01/06/2020 21:09 EDT 40 mg Given 01/06/2020 8:30 EDT 40 mg risperiDONE (RISPERDAL) tablet 0.5 mg 0.5 mg, oral, AT BEDTIME, First dose on Fri01/05/20 at 2100, Until Discontinued, Routine Given 01/06/2020 21:09 EDT 0 .5 mg Given 01/05/2020 20:12 EDT 0.5 mg senna (SENOKOT) tablet 1 Tab 1 Tablet, oral, 2 TIMES DAILY, First dose on Fri01/07/20 at 0900, Until Discontinued, Routine, Release Given 01/07/2020 8:49 EDT 1 Tablet sertraline (ZOLOFT) tablet 50 mg 50 mg, oral, DAILY, First dose on Fri01/06/20 at 0900, Until Discontinued, Routine Given 01/07/2020 8:49 EDT 50 mg Given 01/06/2020 8:30 EDT 50 mg sodium chloride 0.9 % with KCl 20 mEq/L infusion at 75 mL/hr, intravenous, CONTINUOUS, Starting on Fri01/05/20 at 1300, Until Fri01/06/20 at 1834, Routine, Release Rate Documented 01/06/2020 5:00 EDT 75 mL/hr Rate Documented 01/06/2020 3:00 EDT 75 mL/hr Rate Documented 01/06/2020 2:00 EDT 75 mL/hr documented in this encounter Discontinued Medications Medication Sig Discontinue Reason Start Date End Da te famotidine (PEPCID) 20 mg tablet Take 20 mg by mouth 2 times daily. 01/05/2020 documented as of this encounter Active and Recently Administered Medications Times are shown in EDT. Scheduled Medication Order 01/05/2020 01/06/2020 01/07/2020 carvediloL (COREG) tablet 6.25 mg 6.25 mg, oral, 2 TIMES DAILY, First dose on Fri01/05/20 at 2100, Until Discontinued, Routine 2012 (Given - Provider: Sarwat Jerry RN) 0830 (Given - Provider: Orin Menchaca RN)2109 (Given - Provider: Jack Drew RN) 0849 (Given - Provider: Orin Menchaca, BRY) clindamycin (CLEOCIN) IVPB 900 mg (COMPLETED) 900 mg, intravenous, Administer over 30 Minutes, PRE-OP ONCE, 1 dose, On Fri01/05/20 at 0645, Routine, Preprocedure 0733 (Given - Provider: Dona Gastelum, BRY) cyanocobalamin (VITAMIN B-12) tablet 1,000 mcg 1,000 mcg, oral, DAILY, First dose on Fri01/06/20 at 0900, Until Discontinued, Routine 1239 (Given - Provider: Orin Menchaca RN) 0848 (Given - Provider: Orin Menchaca, BRY) dexAMETHasone (DECADRON) tablet 4 mg 4 mg, oral, EVERY 12 HOURS, First dose on Fri01/05/20 at 2100, Until Discontinued, Routine 2012 (Given - Provider: Sarwat Jerry RN) 08 (Given - Provider: Orin Menchaca RN)2108 (Given - Provider: Jack Drew RN) 0849 (Given - Provider: Orin Menchaca RN) docusate sodium (COLACE) capsule 100 mg 100 mg, oral, 2 TIMES DAILY, First dose on Fri01/05/20 at 1300, Until Discontinued, Routine, Release 1455 (Given - Provider: Viji Valle RN)2012 (Given - Provider: Sarwat Jerry RN) 08 (Given - Provider: Orin Menchaca RN)2108 (Given - Provider: Jack Drew RN) 0849 (Given - Provider: Orin Menchaca RN) enoxaparin (LOVENOX) injection 40 mg 40 mg, subcutaneous, DAILY, First dose on Fri01/06/20 at 0900, Until Discontinued, Routine, Release 08 (Given - Provider: Orin Menchaca RN) 0849 (Given - Provider: Orin Menchaca RN) fluticasone propion-salmeteroL (ADVAIR) 250-50 mcg/dose diskus inhaler 1 Puff 1 Puff, inhalation, 2 TIMES DAILY, First dose on Fri01/05/20 at 2100, Until Discontinued 2011 (Given - Provider: Sarwat Jerry RN) 825 (Given - Provider: Cj Baker, RT)2113 (Given - Provider: Noble Bass RT) 08 (Given - Provider: Liat Edmondson, RT) furosemide (LASIX) tablet 20 mg 20 mg, oral, DAILY, First dose on Fri01/06/20 at 0900, Until Discontinued, Routine 829 (Given - Provider: Orin Menchaca RN) 0848 (Given - Provider: Orin Menchaca RN) gabapentin (NEURONTIN) capsule 800 mg 800 mg, oral, 3 TIMES DAILY, First dose on Fri01/05/20 at 1400, Until Discontinued 1455 (Given - Provider: Viji Valle RN)2012 (Given - Provider: Sarwat Jerry RN) 08 (Given - Provider: Orin Menchaca RN)1427 (Given - Provider: Orin Menchaca RN)2109 (Given - Provider: Jack Drew RN) 0849 (Given - Provider: Orin Menchaca RN) insulin aspart U-100 (NOVOLOG FLEXPEN) injection subcutaneous, AT BEDTIME, First dose on Fri01/05/20 at 2100, Until Discontinued, Routine 2053 (Not Given - Provider: Sarwat Jerry RN - Reason: Order parameters not met) 2117 (Not Given - Provider: Jack Drew RN - Reason: Order parameters not met) insulin aspart U-100 (NOVOLOG FLEXPEN) injection subcutaneous, 3 TIMES DAILY WITH MEALS, First dose on Fri01/05/20 at 1700, Until Discontinued, Routine 1704 (Given - Provider: Viji Valle RN - Comment: BG 197) 0835 (Given - Provider: Orin Menchaca RN)1240 (Given - Provider: Orin Menchaca RN)1725 (Given - Provider: Orin Menchaca RN) 0850 (Given - Provider: Orin Menchaca RN)1200 (Canceled Entry - Provider: Batch Job User Admin - Comment: Automatically canceled at discontinue of medication order) levETIRAcetam (KEPPRA) 500 mg in sodium chloride (NS) 0.9 % 100 mL IVPB(Linked Group 1) 500 mg, intravenous, Administer over 15 Minutes, EVERY 12 HOURS, 14 doses, First dose on Fri01/05/20 at 2100, Last dose on Fri01/12/20 at 0900, Routine, Release 2012 (See Alternative - Provider: Sarwat Jerry RN) 08 (See Alternative - Provider: Orin Menchaca RN)2108 (See Alternative - Provider: Jack Drew RN) 0848 (See Alternative - Provider: Orin Menchaca RN) levETIRAcetam (KEPPRA) tablet 500 mg(Linked Group 1) 500 mg, oral, EVERY 12 HOURS, 14 doses, First dose on Fri01/05/20 at 2100, Last dose on Fri01/12/20 at 0900, Routine, Release 2012 (Given - Provider: Sarwat Jerry RN) 0831 (Given - Provider: Orin Menchaca RN)2108 (Given - Provider: Jack Drew RN) 0848 (Given - Provider: Orin Menchaca RN) levothyroxine (SYNTHROID) tablet 50 mcg 50 mcg, oral, DAILY BEFORE BREAKFAST, First dose on Fri01/06/20 at 0700, Until Discontinued, Routine 0637 (Given - Provider: Sarwat Jerry RN) 0700 (Canceled Entry - Provider: Batch Job User Admin - Comment: Automatically canceled at discontinue of medication order) lisinopriL (PRINIVIL) tablet 10 mg 10 mg, oral, DAILY, First dose on Fri01/06/20 at 0900, Until Discontinued, Routine 0830 (Given - Provider: Orin Menchaca RN) 0849 (Given - Provider: Orin Menchaca RN) loratadine (CLARITIN) tablet 10 mg 10 mg, oral, DAILY, First dose on Fri01/06/20 at 0900, Until Discontinued, Routine 0830 (Given - Provider: Orin Menchaca RN) 0848 (Given - Provider: Orin Menchaca RN) metFORMIN (GLUCOPHAGE) tablet 1,000 mg 1,000 mg, oral, 2 TIMES DAILY, First dose on Fri01/05/20 at 2100, Until Discontinued, Routine 2011 (Given - Provider: Sarwat Jerry RN) 08 (Given - Provider: Orin Menchaca RN)2108 (Given - Provider: Jack Drew RN) 0848 (Given - Provider: Orin Menchaca RN) methocarbamoL (ROBAXIN) tablet 750 mg 750 mg, oral, 4 TIMES DAILY, First dose on Fri01/05/20 at 2130, Until Discontinued, Routine 2156 (Given - Provider: Sarwat Jerry RN) 0830 (Given - Provider: Orin Menchaca RN)1239 (Given - Provider: Orin Menchaca RN)1724 (Given - Provider: Orin Menchaca RN)210 (Given - Provider: Jack Drew RN) 0849 (Given - Provider: Orin Menchaca RN)1200 (Canceled Entry - Provider: Batch Job User Admin - Comment: Automatically canceled at discontinue of medication order) mirtazapine (REMERON) tablet 15 mg 15 mg, oral, AT BEDTIME, First dose on Fri01/05/20 at 2100, Until Discontinued, Routine 2011 (Given - Provider: Sarwat Jerry RN) 2108 (Given - Provider: Jack Drew RN) pantoprazole (PROTONIX) tablet 40 mg 40 mg, oral, 2 TIMES DAILY, First dose on Fri01/05/20 at 2100, Until Discontinued, Routine 2011 (Given - Provider: Sarwat Jerry RN) 829 (Given - Provider: Orin Menchaca RN)2108 (Given - Provider: Jack Drew RN) 0849 (Given - Provider: Orin Menchaca RN) risperiDONE (RISPERDAL) tablet 0.5 mg 0.5 mg, oral, AT BEDTIME, First dose on Fri01/05/20 at 2100, Until Discontinued, Routine 2011 (Given - Provider: Sarwat Jerry RN) 2108 (Given - Provider: Jack Drew RN) senna (SENOKOT) tablet 1 Tab 1 Tablet, oral, 2 TIMES DAILY, First dose on Fri01/07/20 at 0900, Until Discontinued, Routine, Release 848 (Given - Provider: Orin Menchaca RN) sertraline (ZOLOFT) tablet 50 mg 50 mg, oral, DAILY, First dose on Fri01/06/20 at 0900, Until Discontinued, Routine 829 (Given - Provider: Orin Menchaca RN) 0849 (Given - Provider: Orin Menchaca RN) Continuous Medication Order 01/05/2020 01/06/2020 01/07/2020 lactated ringers (LR) infusion (CANCELED) 30 mL/hr, intravenous, CONTINUOUS, Starting on Fri01/05/20 at 0645, Until Fri01/05/20 at 1306, Routine, Preprocedure 0714 (New Bag - Provider: Dona Gastelum RN)0735 (Continued by Anesthesia - Provider: Luis A Toscano MD)0901 (New Bag - Provider: Luis A Toscano MD)1255 (Completed - Provider: Jody Vines APRN) niCARdipine (CARDENE) 25 mg in sodium chloride (NS) 0.9 % 250 mL peripheral infusion () 2.5-15 mg/hr (25-150 mL/hr), intravenous, CONTINUOUS, Starting on Fri01/05/20 at 1345, Until Fri01/05/20 at 2008, STAT 1400 (New Bag - Provider: Viji Valle RN)1500 (Rate Documented - Provider: Viji Valle RN)1600 (Rate Documented - Provider: Viji Valle, RN)1700 (Rate Documented - Provider: Viji Valle, RN)1703 (New Bag - Provider: Viji Valle, RN)1930 (Rate Change - Provider: Sarwat Jerry, RN)1999 (Rate Documented - Provider: Sarwat Jerry, RN)203 (Completed - Provider: Sarwat Jerry, RN) niCARdipine (CARDENE) 50 mg in sodium chloride (NS) 0.9 % 500 mL peripheral infusion (CANCELED) 2.5-15 mg/hr (25-150 mL/hr), intravenous, CONTINUOUS, Starting on Fri01/05/20 at 2000, Until Koki 01/06/20 at 1834, Routine 1929 (Canceled Entry - Provider: Sarwat Jerry, RN)203 (New Bag - Provider: Sarwat Jerry, RN)2100 (Rate Documented - Provider: Sarwat Jerry, RN)220 (Rate Documented - Provider: Sarwat Jerry, RN)230 (Rate Documented - Provider: Sarwat Jerry, RN)2308 (Rate Change - Provider: Sarwat Jerry RN) 0000 (Rate Documented - Provider: Sarwat Jerry, RN)0044 (Paused - Provider: Sarwat Jerry RN) sodium chloride 0.9 % with KCl 20 mEq/L infusion (CANCELED) at 75 mL/hr, intravenous, CONTINUOUS, Starting on Fri01/05/20 at 1300, Until Koki 01/06/20 at 1834, Routine, Release 1400 (New Bag - Provider: Viji Valle RN)1500 (Rate Documented - Provider: Viji Valle RN)1600 (Rate Documented - Provider: Viji Valle RN)1700 (Rate Documented - Provider: Viji Valle, RN)2000 (Rate Documented - Provider: Sarwat Jerry, RN)2100 (Rate Documented - Provider: Sarwat Jerry, RN)2200 (Rate Documented - Provider: Sarwat Jerry, RN)2300 (Rate Documented - Provider: Sarwat Jerry, RN) 0000 (Rate Documented - Provider: Sarwat Jerry, RN)0100 (Rate Documented - Provider: Sarwat Jerry, RN)0200 (Rate Documented - Provider: Sarwat Jerry, RN)0300 (Rate Documented - Provider: Sarwat Jerry, RN)0500 (Rate Documented - Provider: Sarwat Jerry, RN)0525 (Completed - Provider: Sarwat Jerry RN) PRN Medication Order 01/05/2020 01/06/2020 01/07/2020 acetaminophen (TYLENOL) solution unit dose cup 650 mg(Linked Group 2) 650 mg, per ng tube, EVERY 4 HOURS PRN, Starting on Fri01/05/20 at 1230, Until Fri01/07/20 at 1216, Pain, Routine, Release 1456 (See Alternative - Provider: Viji Valle RN)2012 (See Alternative - Provider: Sarwat Jerry RN) 16 (See Alternative - Provider: Sarwat Jerry RN)040 (See Alternative - Provider: Sarwat Jerry RN)1239 (See Alternative - Provider: Orin Menchaca RN)1724 (See Alternative - Provider: Orin Menchaca RN) 0849 (See Alternative - Provider: Orin Menchaca RN) acetaminophen (TYLENOL) suppository 650 mg(Linked Group 2) 650 mg, rectal, EVERY 4 HOURS PRN, Starting on Fri01/05/20 at 1230, Until Fri01/07/20 at 1216, Pain, Routine, Release 1456 (See Alternative - Provider: Viji Valle RN)2012 (See Alternative - Provider: Sarwat Jerry RN) 16 (See Alternative - Provider: Sarwat Jerry RN)040 (See Alternative - Provider: Sarwat Jerry RN)1239 (See Alternative - Provider: Orin Menchaca RN)1724 (See Alternative - Provider: Orin Menchaca RN) 0849 (See Alternative - Provider: Orin Menchaca RN) acetaminophen (TYLENOL) tablet 650 mg(Linked Group 2) 650 mg, oral, EVERY 4 HOURS PRN, Starting on Fri01/05/20 at 1230, Until Fri01/07/20 at 1216, Pain, Routine, Release 1456 (Given - Provider: Viji Valle RN)2012 (Given - Provider: Sarwat Jerry RN) 16 (Given - Provider: Sarwat Jerry RN)403 (Given - Provider: Sarwat Jerry RN)1239 (Given - Provider: Orin Menchaca RN)1724 (Given - Provider: Orin Menchaca RN) 0849 (Given - Provider: Orin Menchaca RN) bisacodyL (DULCOLAX) suppository 10 mg 10 mg, rectal, EVERY 48 HOURS PRN, Starting on Fri01/07/20 at 0000, Until Fri01/07/20 at 1216, Constipation, Routine, Release bupivacaine-EPINEPHrine (PF) 0.5 %-1:200,000 injection (CANCELED) As needed, Starting on Fri01/05/20 at 0900, Until Fri01/05/20 at 0909, Routine, Intraprocedure 0900 (Given - Provider: Alfonzo Cobb MD - Comment: subq head) calcium carbonate (TUMS) 200 mg calcium (500 mg) per chewable tablet tablet,chewable 1 Tab 1 Tablet, oral, EVERY 4 HOURS PRN, Starting on Fri01/05/20 at 1233, Until Fri01/07/20 at 1216, Heartburn, Routine, Release cellulose, oxidized 2 x 14 (SURGICEL) pad pad (CANCELED) As needed, Starting on Fri01/05/20 at 1115, Until Fri01/05/20 at 1136, Intraprocedure 1115 (Given - Provider: Alfonzo Cobb MD - Comment: head) dextrose 50 % solution 12.5 g 12.5 g (25 mL), intravenous, PRN, Starting on Fri01/05/20 at 1306, Until Fri01/07/20 at 1216, Low Blood Sugar, Routine fentaNYL citrate (PF) injection 25-50 mcg (CANCELED) 25-50 mcg, intravenous, EVERY 1 HOUR PRN, Starting on Fri01/05/20 at 1232, Until Fri01/06/20 at 1231, Pain, For breakthrough pain not controlled with oral medications., Routine, Release 2052 (Given - Provider: Sarwat Jerry RN) gelatin adsorbable 100 cm sponge (CANCELED) As needed, Starting on Fri01/05/20 at 0901, Until Fri01/05/20 at 0909, Intraprocedure 09 (Given - Provider: Alfonzo Cobb MD - Comment: head) Gelatin Adsorbable powder (CANCELED) As needed, Starting on Fri01/05/20 at 0901, Until Fri01/05/20 at 0909, Intraprocedure 09 (Given - Provider: Alfonzo Cobb MD - Comment: head) glucagon injection 1 mg 1 mg, intramuscular, PRN, Starting on Fri01/05/20 at 1306, Until Fri01/07/20 at 1216, Low blood sugar, Routine hydrALAZINE (APRESOLINE) injection 10 mg 10 mg, intravenous, EVERY 1 HOUR PRN, Starting on Fri01/05/20 at 1233, Until Fri01/07/20 at 1216, High Blood Pressure, Routine, Release ondansetron (PF) (ZOFRAN) injection 4 mg 4 mg, intravenous, EVERY 4 HOURS PRN, Starting on Fri01/05/20 at 1233, Until Fri01/07/20 at 1216, Nausea, Routine, Release 2105 (Given - Provider: Sarwat Jerry RN) 0955 (Given - Provider: Nano Bower RN) oxyCODONE (ROXICODONE) immediate release tablet 5-15 mg 5-15 mg, oral, EVERY 4 HOURS PRN, Starting on Fri01/05/20 at 1232, Until Fri01/07/20 at 1216, Pain, discomfort, Routine, Release 1456 (Given - Provider: Viji Valle RN)2011 (Given - Provider: Sarwat Jerry RN) 0017 (Given - Provider: Sarwat Jerry RN)0404 (Given - Provider: Sarwat Jerry RN)0828 (Given - Provider: Orin Menchaca RN)1239 (Given - Provider: Orin Menhcaca, BRY)1724 (Given - Provider: Orin Menchaca RN)2110 (Given - Provider: Jack Drew RN) 0848 (Given - Provider: Orin Menchaca RN) papaverine injection (CANCELED) As needed, Starting on Fri01/05/20 at 1039, Until Fri01/05/20 at 1041, Routine, Intraprocedure 1039 (Given - Provider: Alfonzo Cobb MD - Comment: head) sodium chloride 0.9 % irrigation (CANCELED) As needed, Starting on Fri01/05/20 at 0901, Until Fri01/05/20 at 0909, Routine, Intraprocedure 0901 (Given - Provider: Alfonzo Cobb MD - Comment: headd) Thrombin (Bovine) 5,000 unit topical solution (CANCELED) As needed, Starting on Fri01/05/20 at 0901, Until Fri01/05/20 at 0909, Intraprocedure 0901 (Given - Provider: Alfonzo Cobb MD - Comment: head) Linked Groups Order Group 1: levETIRAcetam (KEPPRA) tablet 500 mgJump to med 500 mg, oral, EVERY 12 HOURS, 14 doses, First dose on Fri01/05/20 at 2100, Last dose on Fri01/12/20 at 0900, Routine, Release Or levETIRAcetam (KEPPRA) 500 mg in sodium chloride (NS) 0.9 % 100 mL IVPBJump to med 500 mg, intravenous, Administer over 15 Minutes, EVERY 12 HOURS, 14 doses, First dose on Fri01/05/20 at 2100, Last dose on Fri01/12/20 at 0900, Routine, Release Group 2: acetaminophen (TYLENOL) tablet 650 mgJump to med 650 mg, oral, EVERY 4 HOURS PRN, Starting on Fri01/05/20 at 1230, Until Fri01/07/20 at 1216, Pain, Routine, Release Or acetaminophen (TYLENOL) solution unit dose cup 650 mgJump to med 650 mg, per ng tube, EVERY 4 HOURS PRN, Starting on Fri01/05/20 at 1230, Until Fri01/07/20 at 1216, Pain, Routine, Release Or acetaminophen (TYLENOL) suppository 650 mgJump to med 650 mg, rectal, EVERY 4 HOURS PRN, Starting on Fri01/05/20 at 1230, Until Fri01/07/20 at 1216, Pain, Routine, Release documented in this encounter Orders Medications Ordered That Eddie ht Not Have Been Administered Count Last Ordered Date First Ordered Date acetaminophen (TYLENOL) solu tion unit dose cup 650 mg 1 01/05/2020 acetaminophen (TYLENOL) suppository 650 mg 01/05/2020 bisacodyL (DULCOLAX) suppository 10 mg bupivacaine-EPINEPHrine (PF) 0.5 %-1:200,000 injection 1 01/05/2020 calcium carbonate (TUMS) 200 mg calcium (500 mg) per chewable tablet tablet,chewable 1 Tab 1 01/05/2020 cellulose, oxidized 2 x 14 (SURGICEL) pad pad 01/05/2020 dextrose 50 % solution 12.5 g 2 01/05/2020 gelatin adsorbable 100 cm sponge 1 01/05/20 20 Gelatin Adsorbable powder 1 01/05/2020 glucagon injection 1 mg 2 01/05/2020 hydrALAZINE (APRESOLINE) injection 10 mg 1 01/05/2020 insulin aspart U-100 (NOVOLO G FLEXPEN) injection 2 01/05/2020 labetaloL (TRANDATE) injection 10 mg 1 12/14 levETIRAcetam (KEPPRA) 500 m g in sodium chloride (NS) 0.9 % 100 mL IVPB 1 01/05/2020 lidocaine (PF) 10 mg/mL (1 % ) injection 2 mg 1 01/05/2020 papaverine injection 1 01/05/2020 sodium chloride 0.9 % irrigation 1 01/05/20 Thrombin (Bovine) 5,000 unit topical solution 1 01/05/2020 varenicline (CHANTIX) tablet 0.5 mg 1 01/04 Nursing Count Last Ordered Date First Orde red Date ACTIVITY INSTRUCTIONS 1 01/07/2020 DRIVING INSTRUCTIONS 1 01/07/2020 WOUND CARE INSTRUCTIONS 1 01/07/2020 INSERT SALOMON CATHETER 1 01/05/2020 PLACE ANTI-EMBOLISM STOCKINGS 1 01/05/[address] PL[address] SEQUENTIAL COMPRESSION DEVICE 1 01/04 Respiratory Care Count Last Ordered Date First Ordered Date DRY POWDERED OR METERED DOSE INHALER 4 12/1401/05/2020 Admission Count Last Ordered Date First Orde red Date ADMIT TO INPATIENT 1 01/05/2020 Transfer Count Last Ordered Date First Orde red Date TRANSFER PATIENT 1 01/06/2020 TEACHING SERVICE 2 01/05/2020 Discharge Count Last Ordered Date First Orde red Date DISCHARGE PATIENT 1 01/07/2020 Legal Count Last Ordered Date First Orde red Date MISCELLANEOUS DISCHARGE INSTRUCTIONS 2 12/14 documented in this encounter Care Teams 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
--- OUTSIDE RECORDS SUMMARY | 2024-01-23 00:37 | XMS_ITS | Encounter Summary ---
Author Organization [facility] Address [address] [place] [address] Care Team Providers Care Airplane Cabin Attendant Name Role Phone Grant Lindsey MD Primary Care Provider [phone] Reason for Visit * Auth/Cert Specialty Diagnoses / [facility]erred To Contact Diagnoses Cerebral aneurysm, nonruptured Procedures [place] ANEURYSM, INTRACRAN, SIMPLE SURG Right craniotomy for surgical clipping of right middle cerebral aneurysm Referral ID Status Reason Start Date Expiration Date Visits Re quested Visits Authorized [id number] 1 1 Encounter Details Date Type Department Care Team (Late st Contact Info) Description 01/05/2020 7:40 EDT Anesthesia Event [facility] OR [address] [place], [place] [id number] Petra Raygoza MD [address] [place] [id number] Sherry Martin DO [address] [phone] Anesthesia Record Procedure Summary Procedure Name Responsible Anesthesiologist Anesthesia Start Time Anesthesia Stop Time Right craniotomy for surgical clipping of right middle cerebral aneurysm (Right: Head) Petra Raygoza MD 01/05/20 0740 01/05/20 1256 Events Date Time Event Comment 01/05/2020 0740 An Start The patient was re-evaluated immediately before moderate or deep sedation use, before anesthesia induction, or before the anesthesia procedure. 0801 An Start Data 0813 An Induction The patient was reevaluated immediately before moderate or deep sedation use and before anesthesia induction. 0818 An Intubation 0834 Anesthesia Ready 0905 Kehinde Temp in groin 0954 Kehinde Recruitment man uevers x4 1228 An Extubation 1254 an stop data 1255 Handoff to RN I completed my handoff to the receiving nurse during which we: 1. Identified the patient 2. Identified the responsible provider 3. Reviewed the pertinent medical history 4. Discussed the surgical course 5. Reviewed intra-op anesthesia management and issues during anesthesia 6. Set expectations for post-procedure period 7. Allowed opportunity for questions and acknowledgement of understanding. 1256 An Stop Meds Name Total dexaMETHasone 4 mg/mL injection 8 mg fentanyl citrate (PF) injection 200 mcg HYDROmorphone vial 2 mg/mL 0.4 mg lidocaine 2% (PF) injection glass vial 8 0 mg ketAMINE 5 mL prefilled syringe 5 mg midazolam 1 mg/mL 2 mL vial 2 mg ondansetron (PF) (ZOFRAN) injection 4 mg phenylephrine pre-filled syringe 300 mcg propOFol (DIPRIVAN) injection 500 mg propofol (DIPRIVAN) 500 mg in 50 mL infu derek 2,899,962 mcg rocuronium 10 mg/mL vial 50 mg sugammadex 100 mg/mL 2 mL vial 421 mg niCARdipine injection 19.85 mg remifentaniL (ULTIVA) 2,000 mcg 60 mcg remifentaniL (ULTIVA) 2,000 mcg 2,192.35 mcg levETIRAcetam 500 mg/5 mL vial 1,000 mg vecuronium 10 mg vial 12,214.8 mcg clindamycin IVPB 900 mg 1,800 mg mannitol 20 % infusion 50,000 mg indocyanine green 25 mg injection 7.5 mg lactated ringers (LR) infusion 1,000 mL lactated ringers (LR) infusion 2,000 mL * Agents Name O2 N2O Air * Blood No blood administrations on file. Lines, Drains, and Airways Type Details Placement Removal Foam Border Prophylactic Dressing 01/05/20; 726; Mid; Coccyx; Other (Comment) 01/05/20 0727 by Dona Gastelum RN Wound 01/05/20; 0910; Inci derek; Right; Head; right crani for clipping of cerebral aneurysm; N; Full thickness 01/05/20 0910 by Jayjay Cuellar RN Peripheral IV 01/05/20; 0713; 18; 1.25; B Francis Introcan; Right, Posterior; Forearm; Inserted by RN; 1; None; 3.15% Chlorhexidine with IPA; 01/07/20; 0904; Discharged; Catheter intact, No complications, Dressing applied 01/05/20 0713 by Dona Gastelum RN 01/07/20 0904 by Orin Menchaca RN Peripheral IV 01/05/20; 0800 (crea sam via procedure documentation); saphenous; 01/06/20; 1436; Alternate access, Painful; No complications, Catheter intact, Dressing applied 01/05/20 0800 by Jody Vines, OBSTETRICS NURSE 01/06/20 1436 by Orin Menchaca RN Urethral Catheter 01/05/20; 0850; Inse rted by RN (Jayjay LONDONO); Intraoperative monitoring; Non-latex; 16 fr; 10 ml; Yes; 01/06/20; 0800 01/05/20 0850 by Jayjay Cuellar RN 01/06/20 0800 by Orin Menchaca RN Non-Surgical Airway 01/05/20; 0904 (crea sam via procedure documentation); 01/05/20; 1228 01/05/20 0904 by Luis A Toscano MD 01/05/20 1228 by Luis A Toscano MD Closed/Suction Drain 01/05/20; 1145; In OR by MD; 1; Right; Scalp; 10 Ethiopian; 01/06/20; 1719 (Removed by doctor at bedside) 01/05/20 1145 by Jayjay Cuellar RN 01/06/20 1719 by Orin Menchaca RN documented in this encounter Social History [...] No 12/25/2019 documented as of this encounter OR Notes * Anesthesia Postprocedure Evaluation - Jody Vines APRN - 01/05/2020 1256 EDT Patient: Kallie Darling Vital signs were reviewed with the recovery nurse. Complete vitals history is available in the [facility]. Vitals Value Taken Time BP 01/05/20 1256 Temp 01/05/20 1256 Resp 11 01/05/20 1255 Pulse From Oximetry 83 BPM 01/05/20 1255 SpO2 92 % 01/05/20 1255 Vitals shown include unvalidated device data. Last Pain Score - Numeric Pain Level (Scale 1-10): 7 Type of Anesthesia - general Anesthesia Post Evaluation Post-procedure vitals reviewed and are stable. Level of consciousness: responsive/arousable to verbal stimuli Temperature status: normothermia Respiratory status: airway patent and face mask Cardiovascular status: acceptable Hydration status: adequate Nausea/Vomiting: none Pain management: adequate Post-Op Assessment: patient tolerated procedure well with no complications Patient participation: unable to participate due to sedation Disposition: inpatient Anesthesia Complications: No apparent anesthesia complications * Anesthesia Procedure Notes - Jody Vines APRN - 01/05/2020 1255 EDT Associated Order(s): Peripheral IV Placement Peripheral IV Placement Date/Time: 01/05/2020 8:00 Inserted by: Petra Raygoza MD Placement Needle size: 16 G Laterality: left Location: saphenous Site prep: alcohol Technique: anatomical landmarks Attempts: 1 * Anesthesia Procedure Notes - Luis A Toscano MD - 01/05/2020 0902 EDTAssociated Order(s): Airway Airway Date/Time: 01/05/2020 8:18 Urgency: elective General Information and Staff Patient location during procedure: OR Anesthesiologist: Petra Raygoza MD Resident/OBSTETRICS NURSE: Luis A Toscano MD Performed: resident/OBSTETRICS NURSE/AA Indications and Patient Condition Indications for airway management: anesthesia Sedation level: GA Preoxygenated: yes Patient position: sniffing Ventilation assessment: 1 - Easy Final Airway Details Final airway type: endotracheal airway Successful airway: ETT Cuffed: yes Successful intubation technique: video laryngoscopy Will Facilitating devices/methods: intubating stylet Endotracheal tube insertion site: oral Blade: Janine Blade size: #3 ETT size (mm): 7.5 Cormack-Lehane Classification: grade I - full view of glottis Placement verified by: chest auscultation and capnometry Cuff volume (mL): 10 Measured from: teeth ETT to teeth (cm): 21 Number of attempts at approach: 1 * Anesthesia Preprocedure Evaluation - Luis A Toscano MD - 01/05/2020 0729 EDT Anesthesia Preprocedure Evaluation Patient Medical History, including Anesthesia History reviewed. Chart and Nursing Notes reviewed, including NPO status and Medication History. Additional ROS/History Findings: Allergies Allergen Reactions ??? Bacitracin Nausea Only [...] Upset ??? Lactose Intolerance (Lactase) ??? Neosporin [Ydykwatf-Qcravhqriak-Nmvfiopoq] Nausea and rash Review of Systems Constitutional: Negative for chills and fever. HENT: Negative for sore throat. Eyes: Positive for blurred vision. Double vision: right eye. Respiratory: Negative for cough and sputum production. Cardiovascular: Negative for chest pain and palpitations. Gastrointestinal: Negative for heartburn, nausea and vomiting. Musculoskeletal: Negative for neck pain. Skin: Negative for rash. Neurological: Positive for sensory change (dulle pain over right eye). Negative for focal weakness. Psychiatric/Behavioral: The patient is nervous/anxious. Past Medical History: Diagnosis Date ??? Anxiety [...] mellitus (HCC-CMS) ??? Diabetes mellitus, type 2 ([facility]) 12/24/2019 cheks daily , usually [...] controlled per pt ??? Parathyroid disease ([facility]) 12/24/2019 pt is not sure if she has parthyroid disease, was on problem list ??? Patient unable to exercise 12/24/2019 - balance issues ??? Sleep apnea 12/24/2019 - no longer has CPAP, wasn't working properly, was removed and never replaced ??? Thyroid disease ??? TMJ syndrome ??? Wears dentures full denture top Relevant Problems Neuro/Psych (+) Acute intractable headache, unspecified headache type (+) Headache CARDIOVASCULAR (+) Cerebral aneurysm, nonruptured Physical Exam Airway Mallampati: II TM distance: >3 FB Neck ROM: full Cardiovascular Rhythm: regular Rate: normal (-) murmur Dental (+) upper dentures Pulmonary Breath sounds clear to auscultation (-) wheezes Abdominal (+) obese Anesthesia Plan ASA 3 Anesthesia Type - general, to include TIVA. Anesthesia Plan Details to include - arterial line. Block for post-op pain? No Anesthesia plan and risks discussed. Informed consent obtained from patient. Use of blood products discussed with patient who consented to blood products. Specific risks discussed were bleeding, dental injury, ICU placement, nausea and post-op intubation. Code status discussed? No H&P not reviewed PAT Note (Notes from 12/06/19 through 01/05/20) PAT Note by Sherry Martin DO at 12/24/2019 12:52 Version 2 of 2 59 year old female with PMH cerebral [...] aware of event. No further w/u necessary. PAT Note by Marie Jasso APRN at 12/24/2019 12:52 Version 1 of 2 59 year old female with PMH cerebral artery occlusion,Cirrohosis,diabetes,HTN,thyroid disease,SOCORRO (no CPAP),GERD,Right MCA aneurysm.H&P 01/03/2020. Please review MARIE JASSO APRN PAT Note by Juan M Ku MD at 12/24/2019 9:50 Version 2 of 2 Kallie Darling has been instructed as follows regarding medication administration for the day of the scheduled procedure. Date of Surgery: 01/05/2020 Instructions for Taking Medications Day of Surgery Medication Sig Last Dose Hold DOS Take DOS ALBUTEROL INHL Inhale 1 Puff as directed as needed. Yes carvedilol (COREG) 6.25 mg tablet Take 6.25 mg by mouth 2 times daily. - pt does not have; awaitinginstruction from primary MD CAMPOS STARTING MONTH BOX 0.5 mg (11)- 1 mg (42) tablet TAKE BY MOUTH DIRECTED ON PACKAGE. yes clopidogrel (PLAVIX) 75 mg tablet Take 75 mg by mouth daily. - awaiting instruction cyanocobalamin (VITAMIN B-12) 500 mcg tablet Take 1,000 mcg by mouth daily. yes famotidine (PEPCID) 20 mg tablet Take 20 mg by mouth 2 times daily. - pt does not have; awaiting instruction fluticasone propion/salmeterol (ADVAIR DISKUS INHALATION) Inhale 2 Puffs as directed 2 times daily.Yes furosemide (LASIX) 20 mg tablet Take 20 mg by mouth daily. yes gabapentin (NEURONTIN) 800 mg tablet Take 800 mg by mouth 3 times daily. Yes HYDROXYZINE HCL ORAL Take 25 mg by mouth as needed. yes insulin aspart U-100 (NOVOLOG FLEXPEN) 100 unit/mL injectable pen Inject 5 Units into the skin 3 times daily with meals. - not currently using yes levothyroxine (SYNTHROID) 50 mcg tablet Take 50 mcg by mouth daily. - does not have, awaiting instruction lisinopriL (PRINIVIL) 10 mg tablet TAKE ONE TABLET BY MOUTH EVERY DAY FOR FOR BLOOD PRESSURE 01/03/2020 yes loratadine (CLARITIN) 10 mg tablet Take 10 mg by mouth daily. - does not have, awaiting instructionYes metFORMIN (GLUCOPHAGE) 500 mg tablet Take 1,000 mg by mouth 2 times daily. yes mirtazapine (REMERON) 15 mg tablet Take 15 mg by mouth at bedtime. - continue pantoprazole (PROTONIX) 40 mg tablet Take 40 mg by mouth 2 times daily. Yes risperiDONE (RISPERDAL) 0.5 mg tablet Take 0.5 mg by mouth at bedtime. ontinue sertraline (ZOLOFT) 50 mg tablet Take 50 mg by mouth daily. yes 59 y/o female intractable headache, cerebral aneurysm. Low/moderate risk patient, moderate risk procedure. May proceed. PAT Note by Camryn Valencia RN at 12/24/2019 9:50 Version 1 of 2 Kallie Darling has been instructed as follows regarding medication administration for the day of the scheduled procedure. Date of Surgery: 01/05/2020 Instructions for Taking Medications Day of Surgery Medication Sig Last Dose Hold DOS Take DOS ALBUTEROL INHL Inhale 1 Puff as directed as needed. Yes carvedilol (COREG) 6.25 mg tablet Take 6.25 mg by mouth 2 times daily. - pt does not have; awaitinginstruction from primary MD CAMPOS STARTING MONTH BOX 0.5 mg (11)- 1 mg (42) tablet TAKE BY MOUTH DIRECTED ON PACKAGE. yes clopidogrel (PLAVIX) 75 mg tablet Take 75 mg by mouth daily. - awaiting instruction cyanocobalamin (VITAMIN B-12) 500 mcg tablet Take 1,000 mcg by mouth daily. yes famotidine (PEPCID) 20 mg tablet Take 20 mg by mouth 2 times daily. - pt does not have; awaiting instruction fluticasone propion/salmeterol (ADVAIR DISKUS INHALATION) Inhale 2 Puffs as directed 2 times daily.Yes furosemide (LASIX) 20 mg tablet Take 20 mg by mouth daily. yes gabapentin (NEURONTIN) 800 mg tablet Take 800 mg by mouth 3 times daily. Yes HYDROXYZINE HCL ORAL Take 25 mg by mouth as needed. yes insulin aspart U-100 (NOVOLOG FLEXPEN) 100 unit/mL injectable pen Inject 5 Units into the skin 3 times daily with meals. - not currently using yes levothyroxine (SYNTHROID) 50 mcg tablet Take 50 mcg by mouth daily. - does not have, awaiting instruction lisinopriL (PRINIVIL) 10 mg tablet TAKE ONE TABLET BY MOUTH EVERY DAY FOR FOR BLOOD PRESSURE 01/03/2020 yes loratadine (CLARITIN) 10 mg tablet Take 10 mg by mouth daily. - does not have, awaiting instructionYes metFORMIN (GLUCOPHAGE) 500 mg tablet Take 1,000 mg by mouth 2 times daily. yes mirtazapine (REMERON) 15 mg tablet Take 15 mg by mouth at bedtime. - continue pantoprazole (PROTONIX) 40 mg tablet Take 40 mg by mouth 2 times daily. Yes risperiDONE (RISPERDAL) 0.5 mg tablet Take 0.5 mg by mouth at bedtime. ontinue sertraline (ZOLOFT) 50 mg tablet Take 50 mg by mouth daily. yes documented in this encounter Miscellaneous Notes * Addendum Note - Luis A Toscano MD - 01/11/2020 1024 EDT Addendum created 01/11/20 1024 by Luis A Toscano MD Intraprocedure Meds edited documented in this encounter Plan of Treatment Not on file documented as of this encounter Procedures Procedure Name Priority Date/Time Associated Diagnosis Comments ANESTHESIA PERIPHERAL IV PLACEMENT Routine 01/05/2020 12:55 EDT ANESTHESIA INTUBATION Routine 01/05/2020 9:02 EDT documented in this encounter Results * Peripheral IV Placement (01/05/2020 12:55 EDT) Narrative Jody Vines APRN - 01/05/2020 12:55 EDT Jody Vines APRN ? 01/05/2020 12:55 Peripheral IV Placement Date/Time: 01/05/2020 8:00 Inserted by: Petra Raygoza MD Placement Needle size: 16 G Laterality: left Location: saphenous Site prep: alcohol Technique: anatomical landmarks Attempts: 1 Petra Raygoza MD ANESTHESIA ORDERABL ES * NJ AN ELECTIVE ENDOTRACHEAL AIRWAY (01/05/2020 9:02 EDT) Narrative Luis A Toscano MD - 01/05/2020 9:02 EDT Luis A Toscano MD ? 01/05/2020 ??9:04 Airway Date/Time: 01/05/2020 8:18 Urgency: elective General Information and Staff Patient location during procedure: OR Anesthesiologist: Petra Raygoza MD Resident/OBSTETRICS NURSE: Luis A Toscano MD Performed: resident/OBSTETRICS NURSE/AA Indications and Patient Condition Indications for airway management: anesthesia Sedation level: GA Preoxygenated: yes Patient position: sniffing Ventilation assessment: 1 - Easy Final Airway Details Final airway type: endotracheal airway Successful airway: ETT Cuffed: yes Successful intubation technique: video laryngoscopy Will Facilitating devices/methods: intubating stylet Endotracheal tube insertion site: oral Blade: Janine Blade size: #3 ETT size (mm): 7.5 Cormack-Lehane Classification: grade I - full view of glottis Placement verified by: chest auscultation and capnometry Cuff volume (mL): 10 Measured from: teeth ETT to teeth (cm): 21 Number of attempts at approach: 1 Petra Raygoza MD ANESTHESIA ORDERABL ES documented in this encounter Visit Diagnoses Not on filedocumented in this encounter Administered Medications Inactive Administered Medications - up to 3 most recent administrations Medication Order MAR Action Action Date Dose Rate Site clindamycin (CLEOCIN) IVPB Administer over 30 Minutes, PRN, Starting on Fri01/05/20 at 0758, Until Fri01/05/20 at 1256, Routine, Anesthesia Intraprocedure Given 01/05/2020 11:58 EDT 900 mg Given 01/05/2020 7:58 EDT 900 mg dexaMETHasone (DECADRON) injection PRN, Starting on Fri01/05/20 at 0835, Until Fri01/05/20 at 1256, Routine, Anesthesia Intraprocedure Given 01/05/2020 8:35 EDT 8 mg fentaNYL citrate (PF) injection PRN, Starting on Fri01/05/20 at 0750, Until Fri01/05/20 at 1256, Routine, Anesthesia Intraprocedure Given 01/05/2020 9:22 EDT 50 mcg Given 01/05/2020 9:09 EDT 50 mcg Given 01/05/2020 8:13 EDT 75 mcg HYDROmorphone (DILAUDUD) 2 mg/mL injection PRN, Starting on Fri01/05/20 at 1207, Until Fri01/05/20 at 1256, Routine, Anesthesia Intraprocedure Given 01/05/2020 12:07 EDT 0.4 mg indocyanine green (IC-GREEN) injection PRN, Starting on Fri01/05/20 at 1052, Until Fri01/05/20 at 1256, Routine, Anesthesia Intraprocedure Given 01/05/2020 10:52 EDT 7.5 mg ketAMINE in NaCl, iso-osmotic (KETALAR) 50 mg/5 mL (10 mg/mL) IV injection PRN, Starting on Fri01/05/20 at 0749, Until Fri01/05/20 at 1256, Routine, Anesthesia Intraprocedure Given 01/05/2020 7:49 EDT 5 mg lactated ringers (LR) infusion 30 mL/hr, intravenous, CONTINUOUS, Starting on Fri01/05/20 at 0645, Until Fri01/05/20 at 1306, Routine, Preprocedure New Bag 01/05/2020 9:01 EDT Continued by Anesthesia 01/05/2020 7:35 EDT New Bag 01/05/2020 7:14 EDT 30 mL/hr 30 mL/hr lactated ringers (LR) infusion FA IP EQF CONTINUOUS PRN FOR ONE STEP MEDS, Starting on Fri01/05/20 at 0829, Until Fri01/05/20 at 1256, Routine, Anesthesia Intraprocedure New Bag 01/05/2020 10:55 EDT New Bag 01/05/2020 8:29 EDT levETIRAcetam (KEPPRA) injection PRN, Starting on Fri01/05/20 at 0838, Until Fri01/05/20 at 1256, Anesthesia Intraprocedure Given 01/05/2020 8:38 EDT 1,000 mg lidocaine (PF) 20 mg/mL (2 %) injection PRN, Starting on Fri01/05/20 at 0803, Until Fri01/05/20 at 1256, Routine, Anesthesia Intraprocedure Given 01/05/2020 8:03 EDT 80 mg mannitol 20 % infusion intravenous, Administer over 60 Minutes, PRN, Starting on Fri01/05/20 at 0918, Until Fri01/05/20 at 1256, Routine, Anesthesia Intraprocedure Given 01/05/2020 9:18 EDT 50,000 mg midazolam (PF) (VERSED) injection PRN, Starting on Fri01/05/20 at 0738, Until Fri01/05/20 at 125, Routine, Anesthesia Intraprocedure Given 01/05/2020 7:38 EDT 2 mg niCARdipine (CARDENE) injection FA IP EQF CONTINUOUS PRN FOR ONE STEP MEDS, Starting on Fri01/05/20 at 0909, Until Fri01/05/20 at 125, Routine, Anesthesia Intraprocedure Rate Change 01/05/2020 11:34 EDT 8 mg/hr 3.2 mL/ hr Rate Change 01/05/2020 11:23 EDT 7 mg/hr 2.8 mL/hr Restarted 01/05/2020 10:55 EDT 5 mg/hr 2 mL/hr ondansetron (PF) (ZOFRAN) injection PRN, Starting on Fri01/05/20 at 1135, Until Fri01/05/20 at 1256, Routine, Anesthesia Intraprocedure Given 01/05/2020 11:35 EDT 4 mg phenylephrine HCl in 0.9% NaCl injection PRN, Starting on Fri01/05/20 at 0836, Until Fri01/05/20 at 125, Routine, Anesthesia Intraprocedure Given 01/05/2020 8:51 EDT 100 mcg Given 01/05/2020 8:42 EDT 100 mcg Given 01/05/2020 8:39 EDT 50 mcg propofol (DIPRIVAN) 500 mg in 50 mL infusion FA IP EQF CONTINUOUS PRN FOR ONE STEP MEDS, Starting on Fri01/05/20 at 0814, Until Fri01/05/20 at 125, Routine, Anesthesia Intraprocedure Rate Change 01/05/2020 11:18 EDT 40 mcg/kg/min 25.3 mL/hr Rate Change 01/05/2020 10:52 EDT 30 mcg/kg/min 19 mL/hr Rate Change 01/05/2020 10:32 EDT 240 mcg/kg/min 151.6 mL/h r propOFol (DIPRIVAN) injection PRN, Starting on Fri01/05/20 at 0829, Until Fri01/05/20 at 1256, Routine, Anesthesia Intraprocedure Given 01/05/2020 10:31 EDT 100 mg Given 01/05/2020 10:25 EDT 50 mg Given 01/05/2020 10:20 EDT 50 mg remifentaniL (ULTIVA) 2,000 mcg FA IP EQF CONTINUOUS PRN FOR ONE STEP MEDS, Starting on Fri01/05/20 at 0830, Until Fri01/05/20 at 1256, Anesthesia Intraprocedure New Bag 01/05/2020 8:30 EDT 60 mcg remifentaniL (ULTIVA) 2,000 mcg FA IP EQF CONTINUOUS PRN FOR ONE STEP MEDS, Starting on Fri01/05/20 at 0815, Until Fri01/11/20 at 1022, Anesthesia Intraprocedure Rate Change 01/05/2020 12:15 EDT 0.04 mcg/kg/min 12.6 mL/hr Rate Change 01/05/2020 12:01 EDT 0.08 mcg/kg/min 25.3 mL/h r Rate Change 01/05/2020 11:49 EDT 0.08 mcg/kg/min 25.3 mL/h r rocuronium (ZEMURON) injection PRN, Starting on Fri01/05/20 at 0804, Until Fri01/05/20 at 1256, Routine, Anesthesia Intraprocedure Given 01/05/2020 8:12 EDT 50 mg sugammadex (BRIDION) injection PRN, Starting on Fri01/05/20 at 1214, Until Fri01/05/20 at 1256, Routine, Anesthesia Intraprocedure Given 01/05/2020 12:14 EDT 421 mg vecuronium (NORCURON) injection FA IP EQF CONTINUOUS PRN FOR ONE STEP MEDS, Starting on Fri01/05/20 at 0848, Until Fri01/05/20 at 1256, Routine, Anesthesia Intraprocedure Rate Change 01/05/2020 9:46 EDT 0.6 mcg/kg/min New Bag 01/05/2020 8:48 EDT 0.5 mcg/kg/min documented in this encounter Orders Medications Ordered That Eddie ht Not Have Been Administered Count Last Ordered Date First Ordered Date phenylephrine HCl in 0.9% Na Cl (NEO_SYNEPHRINE) 20 mg/250 mL (80 mcg/mL) infusion solution 1 01/05/2020 remifentaniL (ULTIVA) 200,000 mcg 1 020 documented in this encounter Care Teams Airplane Cabin Attendant Relationship Specialty Start Date End Date Grant Lindsey MD [address] [place] [address] PCP - General 09/09/19 documented as of this encounter
--- OUTSIDE RECORDS SUMMARY | 2024-01-23 00:37 | XMS_ITS | Encounter Summary ---
Author Organization [facility] Address [address] [place] [address] Care Team Providers Care Die Cutter Operator Name Role Phone Grant Lindsey MD Primary Care Provider [phone] Reason for Visit * Reason Onset Date Comments New/Evolving Symptoms 01/17/2020 Encounter Details Date Type Department Care Team (Late st Contact Info) Description 01/17/2020 Telephone [facility] [place] [address], [place] [id number] Cleo Martinez RN New/Evolving Symptoms Social History Tobacco Use Types Packs/Day Years [...] encounter Miscellaneous Notes * Telephone Encounter - Cleo Martinez RN - 01/17/2020 1102 EDT Spoke with patient who is reporting that she is having a significant headache, dizziness, feeling lightheaded along with new onset nausea. She states that she did not present to the ED on Friday as she was directed. I advised her that she should be seen at her local ED for evaluation. She notes that she will try to contact a friend to bring her today. We discussed calling a cab or ambulance as other options to get her to the ED and stressed the importance of being seen today. Patient verbalizedunderstanding and agrees with the plan. documented in this encounter Plan of Treatment Not on file documented as of this encounter Visit Diagnoses Not on filedocumented in this encounter Care Teams Die Cutter Operator Relationship Specialty Start Date End Date Grant Lindsey MD [facility] [place] [address] PCP - General 09/09/19 documented as of this encounter
--- OUTSIDE RECORDS SUMMARY | 2024-01-23 00:37 | XMS_ITS | Encounter Summary ---
Author Organization [facility] Address [address] [place] [address] Care Team Providers Care Adjuster Electrical Contacts Name Role Phone Grant Lindsey MD Primary Care Provider [phone] Encounter Details Date Type Department Care Team (Latest Contact Info) Description 01/05/2020 Travel Social History Tobacco Use Types Packs/Day [...] on filedocumented in this encounter Care Teams Adjuster Electrical Contacts Relationship Specialty Start Date End Date Grant Lindsey MD [address] [place] [address] PCP - General 09/09/19 documented as of this encounter
--- OUTSIDE RECORDS SUMMARY | 2024-01-23 00:37 | XMS_ITS | Encounter Summary ---
Author Organization [facility] Address [address] [place] [address] Care Team Providers Care Vp Site Name Role Phone Grant Lindsey MD Primary Care Provider [phone] Reason for Visit * Reason Onset Date Comments New/Evolving Symptoms 02/03/2020 Encounter Details Date Type Department Care Team (Late st Contact Info) Description 02/03/2020 Telephone [facility] [place] [address], [place] [id number] Meghan Garcia RN New/Evolving Symptoms Social History Tobacco Use [...] Telephone Encounter - Meghan Garcia RN - 02/04/2020 1241 EDT The patient was admitted to the hospital. * Telephone Encounter - Meghan Garcia RN - 02/03/2020 1139 EDT Spoke with sister Estefani Rogers and informed her of the circumstances. She will try to facilitate transportation to the ED today. Report phoned to Dr. Sheffield and ED triage. * Telephone Encounter - Meghan Garcia RN - 02/03/2020 1033 EDT Follow up call to the patient at the request of Amber Lawrence PA-C. The patient reported headache and pressure, unsteaday gait, and hazy vision on the right side. Software Applications Specialist advised that she come to the [facility] ED for evaluation of possible hydrocephalus. She was given an explanation of what that means. She agreed to call her brother and notify triage of the outcome. documented in this encounter Plan of Treatment Not on file documented as of this encounter Visit Diagnoses Not on filedocumented in this encounter Care Teams Vp Site Relationship Specialty Start Date End Date Grant Lindsey [place] [address] [address] [place] [address] PCP - General 09/09/19 documented as of this encounter
--- OUTSIDE RECORDS SUMMARY | 2024-01-23 00:37 | XMS_ITS | Encounter Summary ---
Author Organization [facility] Address [address] [place] [address] Care Team Providers Care Preschool Teacher Name Role Phone Grant Lindsey MD Primary Care Provider [phone] Reason for Visit * Reason Comments Headache Pt transferred to ED with reports of known anuerism. Has been unable to manage pain at home. Pt alert and oriented on arrival. Reports 8/10 pain. Encounter Details Date Type Department Care Team (Late st Contact Info) Description 12/25/2019 15:05 EDT - 12/26/2019 12:12 EDT Emergency [facility] Neurosurgery [address], [place] [id number] Zelalem Mariscal MD [address] [facility], [facility] [address] [place] [address] Antoine Castaneda MD 111 [facility], [facility] [address] [place] [address] Acute intractable headache, unspecified headache type (Primary Dx) Discharge Disposition: Home or Self [...] have Coronavirus / COVID-19? No / Unsure 12/25/2019 15:15 EDT documented as of this encounter Last Filed Vital Signs Vital Sign Reading Time Taken Comments Blood Pressure 127/74 12/26/2019 0934 EDT Pulse 71 12/26/2019 0934 EDT Temperature 36.7 ??C (98.1 ??F) 12/26/2019 0934 EDT Respiratory Rate 16 12/26/2019 0934 EDT Oxygen Saturation 97% 12/26/2019 0934 EDT Inhaled Oxygen Concentration - - Weight 101.6 kg (224 lb) 12/25/2019 1514 EDT Height 165.1 cm (5' 5) 12/25/2019 1514 EDT Body Mass Index 37.28 12/25/2019 1514 EDT documented in this encounter Functional Status [...] No 12/25/2019 documented as of this encounter Discharge Summaries * Leonard Nash MD - 12/26/2019 1212 EDT Neurosurgery Discharge Summary Primary Care Provider: Grant Lindsey Attending Physician: Antoine Castaneda MD Admit Date: 12/25/2019 Discharge Date: 12/26/2019 Disposition: Home or self care Problems and Procedures Admitting Diagnosis: Acute intractable headache, unspecified headache type Discharge Diagnosis: Same Additional Problems Managed in the Hospital Active Hospital Problems Diagnosis Date Noted ??? *Acute intractable headache, unspecified headache type 12/25/2019 ??? Headache 12/25/2019 Resolved Hospital Problems No resolved problems to display. Principal Procedure: None Date: N/A Secondary Procedures: N/A Hospital Course Kallie Darling is a 59 y.o. female with a relevant PMHx of??know R MCA aneurysm (scheduled to be clipped 01/04), migraine, and??stroke in??2017??with residual slurred speech who presents as??a transfer from OSH??to [facility] ED with 4 days of worsening right sided head??associated with blurry visionof right eye, dizziness, and nausea. CT head and CTA head/neck at OSH unremarkable except for know and stable R MCA aneurysm.??On exam, patient is endorsing pain in the right V1 distribution that is worse with light touch. Patient is otherwise??at her neurologic baseline??and is clinically stable. Patient observed overnight and treated symptomatically. Headache unrelated to known unruptured aneurysm. Patient medically appropriate for safe discharge home on hospital day 1. Discharged home with short Decadron taper for headache management. She was instructed to stop taking Plavix in anticipation of R MCA aneurysm clipping with Dr. Cobb on (01/05/2020). Allergies and Immunizations Allergies Allergen Reactions ??? [...] Upset ??? Lactose Intolerance (Lactase) ??? Neosporin [[id number]] Nausea and rash There is no immunization history on file for this patient. Transition of Care Plans Condition at Discharge Good Prognosis: good Assessment at Discharge Vital signs: Patient Vitals for the past 12 hrs: BP Pulse Resp Temp SpO2 O2 Device 12/26/19 0934 127/74 71 16 36.7 ??C (98.1 ??F) 97 % None Test results still pending from this admission None Imaging Required No Last Lab Results at Discharge Creatinine: Lab Results Component Value Date CREATININE 0.60 12/25/2019 CBC: Lab Results Component Value Date WBC 4.75 12/25/2019 RBC 3.83 (L) 12/25/2019 HGB 11.2 (L) 12/25/2019 HCT 33.2 (L) 12/25/2019 MCV 87 12/25/2019 MCH 29.2 12/25/2019 MCHC 33.7 12/25/2019 PLT 101 (L) 12/25/2019 DIFFTYPE Auto 12/25/2019 Electrolytes: Lab Results Component Value Date NA 141 12/25/2019 K 4.0 12/25/2019 CL 101 12/25/2019 CO2 26 12/25/2019 Discharge Follow Up Upcoming Appointments Jan 05, 2020 5:00 Inpatient with Ep Reanna Sanches MD [facility] Neurophysiology [facility] (--) [address] [facility] [address] Feb 03, 2020 10:00 Telemedicine Visit with Amber Lawrence PA-C [facility] Neurosurgery [facility] (--) [address] [facility] [address] LEONARD NASH MD 12/26/2019 20:03 documented in this encounter Discharge Instructions * Discharge Instr - AVS First Page* Leonard Nash MD - 12/26/2019 10:41 EDT STOP taking Plavix in preparation for surgery on (01/05/20). documented in this encounter Medications at Time [...] Take 50 mg by mouth daily. 12/04/2019 dexAMETHasone (DECADRON) 4 mg tablet Take 0.5 Tabs by mouth 2 times daily for 3 days. 3 Tab 12/26/2019 12/29/2019 famotidine (PEPCID) 20 mg tablet Take 20 mg by mouth 2 times daily. 01/05/2020 levETIRAcetam (KEPPRA) 500 mg tablet Take 1 Tab by mouth every 12 hours for 7 days. 14 Tab 01/07/2020 01/14/2020 documented as of this encounter Ordered Prescriptions Prescription Sig Dispensed Refills Start Date End Da te acetaminophen (TYLENOL) 325 mg tablet Take 2 Tabs by mouth every 4 hours as needed for Pain. 12/26/2019 dexAMETHasone (DECADRON) 4 mg tablet Take 0.5 Tabs by mouth 2 times daily for 3 days. 3 Tab 12/26/2019 12/29/2019 documented in this encounter Discharge Disposition Disposition Code Departure Means Destination Home or Self Care Car Home documented in this encounter Progress Notes * Eleanor Carvajal RN - 12/26/2019 1100 EDT Pt stable for d/c, a and o x3, vssa, up ad pool independently, margy reg diet, voiding, skin intact, continue to have throbbing headache, taking tylenol with minimal relief, no respiratory issues, brother to take pt home, plan is for op surgery next week * Jamel Phillips MD - 12/26/2019 0432 EDT Neurosurgery Progress Note Problems/ Worsening right-sided head pain R vision bluriness ?? Hx of: Right MCA aneurysm (Scheduled for clipping 01/05/20, [facility]) Migraines HTN DM2 Obesity Procedures/ None during this admission 24/ Admitted for observation KENNETH overnight Subjective/ I just have this pulsation pressure over the right head. It's not a headache. Denies other complaints. Objective/ Blood pressure 117/69, pulse 73, temperature 36.2 ??C (97.2 ??F), temperature source Tympanic, resp. rate 17, height 165.1 cm (65), weight (!) 101.6 kg (224 lb), SpO2 97 %. Temp: [36 ??C (96.8 ??F)-36.3 ??C (97.3 ??F)] BP: (108-120)/(69-91) Exam: GCS15 Baseline slurred speech Oriented to person, place, time, situation Follows commands x4 Extraocular movements intact Face symmetric Tongue midline Shoulder shrug 5/5 UE Strength - LEFT Deltoid (C4,C5) 5/5 Bicep (C5, 6) 5/5 Tricep (C6, 7) 5/5 Director Content Marketing (C8) 5/5 UE Strength - RIGHT Deltoid (C4,C5) 5/5 Bicep (C5, 6) 5/5 Tricep (C6, 7) 5/5 Director Content Marketing (C8) 5/5 No drift LE Strength - LEFT Iliopsoas(L2, 3) 5/5 Gastroc (S1, S2) 5/5 Anterior Tibialis (L4, 5) 5/5 Extensor Hallicus (L5) 5/5 LE Strength - RIGHT (per patient, RLE is pain limited at baseline) Iliopsoas(L2, 3) 4-/5 Quadricep (L3, 4) 4/5 Gastroc (S1, S2) 4+/5 Anterior Tibialis (L4, 5) 4/5 Extensor Hallicus (L5) 4/5 Studies/ Na/K/Cl/CO2: 141/4.0/101/26 (12/24 1806) WBC/Hgb/Hct/Plts: 4.75/11.2/33.2/101 (12/24 1806) BUN/Cr/glu/ALT/AST/amyl/lip: 9/0.60/--/--/--/--/-- (12/24 1806) Assessment/ Kallie Wilfredo Darling is a 59 y.o. female with a relevant PMHx of know [facility] migraine, and 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 who presents as a transferfrom OSH to [facility] ED with 4 days of worsening right sided head associated with blurry vision of right eye, dizziness, and nausea. CT head and CTA head/neck at OSH unremarkable except for know and stable R MCA aneurysm. On exam, patient is endorsing pain in the right V1 distribution that is worse with light touch. Patient is otherwise at her neurologic baseline and is clinically stable. Plan/ Pain control Q4h neuro checks, vitals Regular diet Maintenance Continue KINDERGARTNER metformin for DM2 Patient on Plavix; LP contraindicated SpO2 >92% SBP goal 100-160 SCD/MAREN for DVT ppx Jamel Phillips MD Neurosurgery resident 12/26/2019 4:32 Page [id number] with questions Associated attestation - Antoine Castaneda MD - 12/26/2019 1156 EDT I have seen and examined the patient, reviewed pertinent images, and agree with the note above. * Nisha Cerrato RN - 12/25/2019 1901 EDT Data: Pt arrived from ED to [facility] 5614-1 @ 1700 approx. Pt reports 8/10 headache on right lateral side affecting eyesight. Blurry vision with slight dizziness. Denies N/V. States she is hungry. Pt with slurred speech R/T 2017 stroke. A&Ox3. Pt prefers lights dim or off. +strength in all extremities, but states her balance is off when stands. LBM today. Lungs clear and heart regular. Action: Oriented Pt to floor and room. Ordered dinner. Took FS. BA is on. Response: Pt stated that she is as comfortable as can be at this time. Call liu in reach. Will continue to monitor. * Ni Tidwell, RT - 12/25/2019 1702 EDT Respiratory Consult/Progress Note Indications for Respiratory therapy: Home MDIs Data Vitals: Heart Rate: 65 BPM, Resp: 15, SpO2: 99 % FIO2/O2 Device: , , O2 Device: None, RT Orders: pending Protocol Scoring: Bronchodilator/Inhalation Therapy Frequency Bronchodialator - Clinical Indications: History of bronchospasm Breath Sounds: Clear Response: No change / no treatment Pulse: <100 Resp Rate: <18 SOB: None Total Score: 0 Comment:: BID Advair Airway Clearance Therapy Frequency Airway Clearance - Clinical Indications: No clinical indications Breath Sounds: Clear / diminished Sputum: Small (tsp) / None Consistency: None Cough Effort: Strong/ non-productive Color: None Total Score: 0 Comment: Not indicated Hyperinflation Therapy Frequency Hyperinflation - Clinical Indications: No clinical indications Breath Sounds: Clear Surgery: No X-Ray / Atelectasis: No O2 Requirements: O2 at baseline Mobility Status: Mobile / at baseline Total: 0 Comment: Not indicated Action/Events Respiratory events; Patient reports using BID Advair and PRN albuterol MDIs at home. No NIV/O2 use. MDIs amanda for RN admin. RT HAL 12/25/19 documented in this encounter H&P Notes * Leonard Nash MD - 12/25/2019 1519 EDT Neurosurgery H&P Problems/ Worsening right-sided head pain R vision bluriness Hx of: Right MCA aneurysm (Scheduled for clipping 01/05/20, [facility]) Migraines HTN DM2 Obesity Anticoagulation or Antiplatelet use: Plavix 75 mg daily HPI: Kallie Darling is a 59 y.o. left-handed female with a relevant PMHx of know R MCA aneurysmfollowed by [facility] (scheduled to be clipped 01/04), liver cirrhosis, HTN, diabetic neuropathy, hypothyroidism, obesity, tobacco abuse, 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, hyperparathyroidismand SOCORRO presenting as a transfer from OSH to [facility] ED with 4 days of worsening right sided head pain that she reports has been significantly worse and perisistent since 0400 this morning. There was concern for aneurysmal rupture, although OSH head CT and CTA without hemorrhage or change in R MCA aneurysm. She explains that the pain is localized to the right side of her head with radiation to her right ear. The pain is sharp and intermittent in nature. She states that it is associated with right-sided vision blurriness, some nausea, and dizziness. Stress makes the pain worse, and she provides and example of a family argument that may have provoked this episode. She does say that she has experiencedthis pain and associated symptoms previously but feels that it has overall been more intense and longer in duration this time. She denies numbness/tingling, focal weakness, confusion or sleepiness. Per chart review, Kallie was seen by Dr. Cobb on 06/11/[address] Romeo Dos Santos(neuroopthalmology) for left eye pain and visual disturbances. Of note, Kallie has poor vision bilaterally and is a poor historian at baseline. At this time, CTA revealed a 4 to 5 mm right MCA aneurysm. Diagnostic angiogram on 09/14/2019 confirmed a 5 mm irregular aneurysm of the right MCA bifurcation. All available outside records were reviewed. Did [...] well controlled per pt ??? Parathyroid disease (HCC-CMS) 12/24/2019 pt is not sure if she [...] ??? Acute intractable headache, unspecified headache type ROS: A 10 point ROS was completed [...] ??? Quit date: 12/19/2019 ??? Years since quittin.0 Smokeless Tobacco Never Used ALL: Allergies Allergen [...] Upset ??? Lactose Intolerance (Lactase) ??? Neosporin [[id number]-Lzurenhro] Nausea and rash MEDS: Medications Prior to Admission Medication Sig Dispense Refill Last Dose ??? ALBUTEROL INHL Inhale 1 Puff as directed as needed. ??? carvedilol (COREG) 6.25 mg tablet Take 6.25 mg by mouth 2 times daily. ??? CHANTIX STARTING MONTH BOX 0.5 mg (11)- 1 mg (42) tablet TAKE BY MOUTH DIRECTED ON PACKAGE. ??? clopidogrel (PLAVIX) 75 mg tablet Take 75 mg by mouth daily. ??? cyanocobalamin (VITAMIN B-12) 500 mcg tablet Take 1,000 mcg by mouth daily. ??? famotidine (PEPCID) 20 mg tablet Take 20 mg by mouth 2 times daily. ??? fluticasone propion/salmeterol (ADVAIR DISKUS INHALATION) Inhale 2 Puffs as directed 2 times daily. ??? furosemide (LASIX) 20 mg tablet Take 20 mg by mouth daily. ??? gabapentin (NEURONTIN) 800 mg tablet Take 800 mg by mouth 3 times daily. ??? HYDROXYZINE HCL ORAL Take 25 mg by mouth as needed. ??? insulin aspart U-100 (NOVOLOG FLEXPEN) 100 unit/mL injectable pen Inject 5 Units into the skin 3 times daily with meals. ??? levothyroxine (SYNTHROID) 50 mcg tablet Take 50 mcg by mouth daily. ??? lisinopriL (PRINIVIL) 10 mg tablet TAKE ONE TABLET BY MOUTH EVERY DAY FOR FOR BLOOD PRESSURE ??? loratadine (CLARITIN) 10 mg tablet Take 10 mg by mouth daily. ??? metFORMIN (GLUCOPHAGE) 500 mg tablet Take 1,000 mg by mouth 2 times daily. ??? mirtazapine (REMERON) 15 mg tablet Take 15 mg by mouth at bedtime. ??? pantoprazole (PROTONIX) 40 mg tablet Take 40 mg by mouth 2 times daily. ??? risperiDONE (RISPERDAL) 0.5 mg tablet Take 0.5 mg by mouth at bedtime. ??? sertraline (ZOLOFT) 50 mg tablet Take 50 mg by mouth daily. EXAM: Blood pressure 108/69, pulse 64, temperature 36.3 ??C (97.3 ??F), temperature source Tympanic, resp. rate 16, height 165.1 cm (65), weight (!) 101.6 kg (224 lb), SpO2 95 %. GCS15 Alert, Attentive, Conversant Baseline slurred speech Oriented to person, place, time, situation Follows commands x4 Extraocular movements intact Pupils equal, round, reactive Right-sided vision with grossly reduced acuity compared to left; wears glasses at baseline Face symmetric at rest and with activation, complete eye closure bilaterally Facial sensation intact in V1-3 distributions bilaterally Hypersensitive to touch of the right forehead Tongue midline Shoulder shrug 5/5 UE Strength - LEFT Deltoid (C4,C5) 5/5 Bicep (C5, 6) 5/5 Tricep (C6, 7) 5/5 Director Content Marketing (C8) 5/5 UE Strength - RIGHT Deltoid (C4,C5) 5/5 Bicep (C5, 6) 5/5 Tricep (C6, 7) 5/5 Director Content Marketing (C8) 5/5 No drift Sensation grossly intact in bilateral upper extremities LE Strength - LEFT Iliopsoas(L2, 3) 5/5 Gastroc (S1, S2) 5/5 Anterior Tibialis (L4, 5) 5/5 Extensor Hallicus (L5) 5/5 LE Strength - RIGHT (per patient, RLE is pain limited at baseline) Iliopsoas(L2, 3) 4-/5 Quadricep (L3, 4) 4/5 Gastroc (S1, S2) 5/5 Anterior Tibialis (L4, 5) 4/5 Extensor Hallicus (L5) 4/5 Sensation grossly intact in bilateral lower extremities HEENT: NC/AT No long bone deformities No rashes or lesions on any exposed areas Prior partial amputation of right big toe CV: regular, appears well-perfused PULM: Breathing comfortably on room air LABS: Laboratory studies independently reviewed. WBC/Hgb/Hct/Plts: 4.75/11.2/33.2/101 (12/24 1806) Na/K/Cl/CO2/BUN/Creat/C Bili/UC Bili:141/4.0/101/26/9/0.60/--/-- (12/24 1806) IMAGING: Outside Imaging studies independently reviewed. CTA Head from OSH: demonstrates stable R-MCA aneurysm CT head OSH: No acute intracranial findings Assessment: 59 y.o. left-handed female with a relevant PMHx of know R MCA aneurysm (scheduled to be clipped 01/04), migraine, and 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 who [facility] with 4 days of worsening right sided head associated with blurry vision of right eye, dizzi ness, and nausea; acutely worse since [address] head and CTA head/neck at OSH unremarkable except for know and stable R MCA aneurysm. On exam, patient is endorsing pain in the right V1 distribution that is worse with light touch. Patient is otherwise at her neurologic baseline and is clinically stable. Plan to admit for observation overnight and pain control. Plan: Admit to floor for observation Pain control Q4h neuro checks, vitals Regular diet Maintenance Continue KINDERGARTNER metformin for DM2 F/u CRP Patient on Plavix; LP contraindicated SpO2 >92% SBP goal 100-160 SCD/MAREN for DVT ppx Patient's status and plan discussed with senior neurosurgery resident, Rogelio Ellison MD. LEONARD NASH MD Neurosurgery resident 12/25/2019 22:03 Page [id number] with questions Associated attestation - Antoine Castaneda MD - 12/26/2019 1157 EDT I have seen and examined the patient 12/26/19, reviewed pertinent images, and agree with the note above. ROCHA improving. Similar to prior episodes when she is stressed. No meningismus. Will plan for DC today and return for elective aneurysm clipping. documented in this encounter ED Notes * Cherry Diaz RN - 12/25/2019 1708 EDT Assisted pt to bedside commode with stand by. * Cherry Diaz RN - 12/25/2019 1630 EDT Neurology at bedside. * Zelalem Mariscal MD - 12/25/2019 1515 EDT This patient received an evaluation and medical screening exam for emergent medical conditions at the [facility] on 12/25/2019 Scribe Attestation: This documentation is recorded by Chiqui Avendano acting as Scribe under the direction and presence of Zelalem Mariscal MD. Zelalem Mariscal MD: I personally performed the services recorded by the scribe in my presence. I confirm the scribe's documentation has been reviewed by me to accurately and completely record my work, treatment, procedures, and medical decision making. Chief Complaint Chief Complaint Patient presents with ??? Headache Pt transferred to ED with reports of known anuerism. Has been unable to manage pain at home. Pt alert and oriented on arrival. Reports 8/10 pain. HPI Kallie Darling is a 59 y.o. female with a history of diabetes, hypertension, middle cerebral artery aneurysm, and migraines who presents to the ED as a transfer from [facility] for further evaluation of headache Patient presented to OSH reporting a several week history of a mild headache which exacerbated acutely at 0400 last night. She localized the headache to the right side of her head with radiation into her neck and right eye, and noted associated right sided blurred vision and mild dizziness. Patient denied any chest pain, shortness of breath, or any other associated symptoms. Patient denies any falls. At OSH she reported a history of an aneurysm for which she is scheduled for a surgery at [facility]. A CT was obtained with no evidence of acute bleed, though there was perhaps evidence of a small right cerebral artery aneurysm. Patient was a notably challenging historian in regards to her medication, as she was unable to provide whether or not she is still on Plavix. Her pharmacy was contacted and she did fill a 90 day supply of her Plavix on 09/30 which is a contraindication to a lumbar puncture. Neurosurgery at [facility] was contacted and Dr. Castaneda recommended observation and continued monitoring, and agreed to transfer her ED to ED. Patient now presents for further evaluation and treatment. Social History- Patient is a former smoker. History was provided by: the patient and medical records. Patient's pertinent PMH, FH, and SH were reviewed and updated PRN. ROS Review of Systems Constitutional: Negative for chills, diaphoresis and fever. HENT: Negative for congestion, rhinorrhea and voice change. Eyes: Positive for pain and visual disturbance (Right sided, blurred ). Respiratory: Negative for chest tightness, shortness of breath and wheezing. Cardiovascular: Negative for chest pain, palpitations and leg swelling. Gastrointestinal: Negative for diarrhea, nausea and vomiting. Endocrine: Negative. Genitourinary: Negative for difficulty urinating, dysuria, frequency and hematuria. Musculoskeletal: Positive for neck pain. Negative for back pain. Skin: Negative for color change. Allergic/Immunologic: Negative for immunocompromised state. Neurological: Positive for headaches. Negative for dizziness, seizures, syncope, speech difficulty,weakness and light-headedness. Hematological: Does not bruise/bleed easily. Psychiatric/Behavioral: Negative for agitation and confusion. Allergies Allergen Reactions ??? Bacitracin Nausea Only [...] Upset ??? Lactose Intolerance (Lactase) ??? Neosporin [[id number]-Wvkjkzruxxd-Wwneriroa] Nausea and rash Physical Exam Vital Signs Temp: 36.1 ??C (97 ??F) Temp src: Tympanic Pulse: 64 Heart Rate: 63 BPM(Simultaneous filing. User may not have seen previous data.) Cardiac Rhythm: Normal sinus rhythm Resp: 16 SpO2: 100 % BP: 119/81 BP MAP: 90 mm Hg BP Device: BP Machine BP Patient Position: Semi fowlers BP Cuff Location: Left arm Physical Exam Vitals signs and nursing note reviewed. Constitutional: Appearance: Normal appearance. She is not diaphoretic. HENT: Head: Normocephalic and atraumatic. Right Ear: Tympanic membrane normal. Left Ear: Tympanic membrane normal. Nose: Nose normal. Mouth/Throat: Mouth: Mucous membranes are moist. Eyes: Extraocular Movements: Extraocular movements intact. Conjunctiva/sclera: Conjunctivae normal. Pupils: Pupils are equal, round, and reactive to light. Neck: Musculoskeletal: Normal range of motion and neck supple. Cardiovascular: Rate and Rhythm: Normal rate and regular rhythm. Pulmonary: Effort: Pulmonary effort is normal. Breath sounds: Normal breath sounds. Abdominal: General: Abdomen is flat. Tenderness: There is no abdominal tenderness. There is no guarding or rebound. Musculoskeletal: Normal range of motion. General: No swelling or tenderness. Comments: Prior partial amputation of right great toe. Tattoo on right foot. Skin: General: Skin is warm. Capillary Refill: Capillary refill takes less than 2 seconds. Findings: No rash. Neurological: General: No focal deficit present. Mental Status: She is alert and oriented to person, place, and time. Cranial Nerves: No cranial nerve deficit. Sensory: No sensory deficit. Gait: Gait normal. Psychiatric: Mood and Affect: Mood normal. Procedures Procedures ED Course A medical screening was performed. The patient is a 59 y.o. female with a history of diabetes, hypertension, and migraines who presents to the ED as a transfer from [facility] with a severe right- sided headache and concerns of aneurysm. Vital Signs: BP (!) 111/91 (BP Patient Position: Supine) Pulse 64 Temp 36 ??C (96.8 ??F) (Oral) Resp 17 Wt (!) 101.6 kg (224 lb) SpO2 98% BMI 37.28 kg/m?? Physical exam as above. Patient has a partial amputation of her right great toe, tattoo on her right foot. Otherwise unremarkable physical exam. Differential diagnosis includes but is not limited to: subarachnoid hemorrhage, cerebral aneurysm, headache. Patient's past medical record reviewed by myself. Neurosurgery was paged on patient arrival and will evaluate her in the ED. Patient's imaging studies and laboratory tests are outside hospital reviewed by myself. Patient admitted under the care of Dr. Castaneda. Medical Decision Making MDM Number of Diagnoses or Management Options Acute intractable headache, unspecified headache type: new, needed workup Amount and/or Complexity of Data Reviewed Clinical lab tests: reviewed Tests in the radiology section of CPT??: reviewed Review and summarize past medical records: yes Discuss the patient with other providers: yes (Neurosurgery consultation) Independent visualization of images, tracings, or specimens: yes (Imaging studies and laboratory tests) Risk of Complications, Morbidity, and/or Mortality Presenting problems: high Diagnostic procedures: minimal Management options: high General comments: 5 Patient Progress Patient progress: stable Clinical Impression Final diagnoses: Acute intractable headache, unspecified headache type Disposition Admitted The patient's pain was managed to an adequate level weighing risk vs. Benefit of further medications. At the end of my care of this patient, the patient's pain was 1 on a zero to ten scale. Any further pain treatment will be at the discretion of the provider following up with the patient based on their clinical assessment. 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 Has been unable to manage pain at home. Pt alert and oriented on arrival. Reports 8/10 pain. 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 Action: Assessed vitals and neuro vitals Q4. Gave patient PRN pain medication (see eMAR). Assisted her to the bathroom to decrease risk of falls. Bed alarmed patient to ensure patient safety. Response: Patient tolerating assessments and vitals, VSS, tolerating ambulation, and is sleeping comfortably. LEEANN MANUEL RN 12/26/2019 3:39 documented in this encounter Plan of Treatment Not on file documented as of this encounter Procedures Procedure Name Priority Date/Time Associated Diagnosis Comments POCT GLUCOSE, INTERFACED Routine 12/25/2019 22:14 EDT POCT GLUCOSE, INTERFACED Routine 12/25/2019 18:17 EDT COMPLETE BLOOD COUNT AND DIFFERENTIAL Routine 12/25/2019 18:07 EDT C REACTIVE PROTEIN Add-On 12/25/2019 18 :07 EDT BUN Routine 12/25/2019 18:07 EDT MAGNESIUM Routine 12/25/2019 18:07 EDT CREATININE Routine 12/25/2019 18:07 EDT ELECTROLYTES Routine 12/25/2019 18:07 EDT ZZCOVID-19 TEST [facility] PCR STAT 12/25/2019 17:07 EDT COVID-19 TESTING STAT 12/25/2019 17:0 7 EDT documented in this encounter Results * (ABNORMAL) POCT GLUCOSE, INTERFACED (12/25/2019 22:14 EDT) Glucose, POC 237(H) 70 - 100 mg/dL 12/26/2019 4:24 EDT [facility] cad designer drafter ID [id number] 12/26/2019 4:24 EDT [facility] HN LAB POC COMMENT (GLUCOSE) Test Performed by Nursing Services 12/26/2019 4:24 EDT [facility] Blood CAPILLARY BLOOD / Unknown 12/25/2019 22:14 EDT 12/26/2019 4:24 EDT Leonard Nash MD POINT OF CARE TEST O RDERABLES [facility] [address] [place] [address] * (ABNORMAL) POCT GLUCOSE, INTERFACED (12/25/2019 18:17 EDT) Glucose, POC 102(H) 70 - 100 mg/dL 12/25/2019 18:22 EDT [facility] cad designer drafter ID [id number] 12/25/2019 18:22 EDT [facility] HN LAB POC COMMENT (GLUCOSE) Test Performed by Nursing Services 12/25/2019 18:22 EDT [facility] Blood CAPILLARY BLOOD / Unknown 12/25/2019 18:17 EDT 12/25/2019 18:22 EDT Leonard Nash MD POINT OF CARE TEST O RDERABLES Performing Organization Address [facility] Co de Phone Number [facility] [address] [place] [address] * (ABNORMAL) C REACTIVE PROTEIN (12/25/2019 18:07 EDT) [facility] C-Reactive Protein 17.5(H) <10.0 mg/L 12/25/2019 21:29 EDT [facility] Blood VENOUS BLOOD / Unknown Venipuncture / Unknown 12/25/2019 18:07 EDT 12/25/2019 18:10 EDT Antoine Castaneda MD CHEMISTRY & BLOOD G ORDERABLES Performing Organization Address [facility] Co de Phone Number [facility] [address] [place] [address] * (ABNORMAL) COMPLETE BLOOD COUNT AND DIFFERENTIAL (12/25/2019 18:07 EDT) [facility] WBC 4.75 4.00 - 12.40 K/cmm 12/25/2019 18:41 [facility] RBC 3.83(L) 3.86 - 5.04 M/cmm 12/25/2019 18:41 [facility] Hemoglobin 11.2(L) 11.6 - 15.2 gm/dL 12/25/2019 18:41 [facility] HCT 33.2(L) 34.9 - 44.4 % 12/25/2019 18:41 [facility] MCV 87 81 - 98 fl 12/25/2019 18:41 [facility] MCH 29.2 26.7 - 33.3 pg 12/25/2019 18:41 [facility] MCHC 33.7 32.1 - 35.9 gm/dL 12/25/2019 18:41 [facility] RDW-CV 14.2 <14.7 % 12/25/2019 18:41 [facility] RDW-SD 43.7 <50.4 fl 12/25/2019 18:41 [facility] PLT 101(L) 141 - 377 K/cmm 12/25/2019 18:41 [facility] MPV 9.8 9.5 - 12.7 fl 12/25/2019 18:41 [facility] % Neutrophils 56.9 % 12/25/2019 18:41 [facility] % Lymphocytes 33.3 % 12/25/2019 18:41 [facility] % Monocytes 6.1 % 12/25/2019 18:41 [facility] % Eosinophils 2.5 % 12/25/2019 18:41 [facility] % Basophils 0.4 % 12/25/2019 18:41 [facility] % Immature Grans 0.8 % 12/25/19 20 18:41 [facility] Absolute Neutrophils 2.70 2.20 - 8.85 K/cmm 12/25/2019 18:41 [facility] Absolute Lymphocytes 1.58 1.09 - 3.30 K/cmm 12/25/2019 18:41 [facility] Absolute Monocytes 0.29 0.10 - 0.80 K/cmm 12/25/2019 18:41 [facility] Absolute Eosinophils 0.12 0.03 - 0.61 K/cmm 12/25/2019 18:41 [facility] ABS Basophils 0.02 0.01 - 0.11 K/cmm 12/25/2019 18:41 [facility] Absolute Immature Grans 0.04 0.00 - 0.06 K/cmm 12/25/2019 18:41 [facility] Type of Differential: Auto 12/25/2019 18:41 [facility] Blood VENOUS BLOOD / Unknown Venipuncture / Unknown 12/25/2019 18:07 EDT 12/25/2019 18:10 EDT Leonard Nash MD PACKAGES & DNA PROBE ORDERABLES Performing Organization Address City/[facility]/ZIP Co de Phone Number [facility] [address] [place] [address] * MAGNESIUM (12/25/2019 18:07 EDT) Magnesium 1.9 1.7 - 2.8 mg/dL 12/25/2019 18:33 EDT [facility] Blood VENOUS BLOOD / Unknown Venipuncture / Unknown 12/25/2019 18:07 EDT 12/25/2019 18:10 EDT Leonard Nash MD CHEMISTRY & BLOOD GA S ORDERABLES Performing Organization Address [facility] Co de Phone Number [facility] [address] [place] [address] * CREATININE (12/25/2019 18:07 EDT) Creatinine 0.60 0.52 - 1.04 mg/dL 12/25/2019 18:33 EDT [facility] eGFR 100 >60 mL/min/1.7 3m2 12/25/2019 18:33 EDT [facility] Comment:eGFR calculated farhana mcclendon CKD-EPI equation for non- Americans. Multiply eGFR by 1.16 for patients. Blood VENOUS BLOOD / Unknown Venipuncture / Unknown 12/25/2019 18:07 EDT 12/25/2019 18:10 EDT Leonard Nash MD CHEMISTRY & BLOOD GA S ORDERABLES Performing Organization Address City/[facility]/ZIP Co de Phone Number [facility] [address] [place] [address] * (ABNORMAL) BUN (12/25/2019 18:07 EDT) BUN 9(L) 10 - 26 mg/dL 12/25/2019 18:33 EDT [facility] Blood VENOUS BLOOD / Unknown Venipuncture / Unknown 12/25/2019 18:07 EDT 12/25/2019 18:10 EDT Leonard Nash MD CHEMISTRY & BLOOD GA S ORDERABLES Performing Organization Address [facility] Co de Phone Number [facility] [address] [place] [address] * ELECTROLYTES (12/25/2019 18:07 EDT) Sodium 141 136 - 145 mEq/L 12/25/2019 18:33 EDT [facility] Potassium 4.0 3.5 - 5.0 mEq/L 12/25/2019 18:33 EDT [facility] Chloride 101 96 - 110 mEq/L 12/25/2019 18:33 EDT [facility] CO2 Total 26 22 - 32 mEq/L 12/25/2019 18:33 EDT [facility] Blood VENOUS BLOOD / Unknown Venipuncture / Unknown 12/25/2019 18:07 EDT 12/25/2019 18:10 EDT Leonard Nash MD CHEMISTRY & BLOOD GA S ORDERABLES Performing Organization Address [facility] Co de Phone Number [facility] [address] [place] [address] * COVID-19 TEST [facility] PCR (12/25/2019 17:07 EDT) Swab ENTIRE NASOPHARYNX / Unknown Swab / Unknown 12/25/2019 17:07 EDT 12/25/2019 17:13 EDT Zelalem Mariscal MD MICROBIOLOGY - GENER AL ORDERABLES Performing Organization Address City/[facility]/ZIP Co de Phone Number [facility] [address] [place] [address] * COVID-19 TESTING (12/25/2019 17:07 EDT) COVID-19 rt-PCR Result Negative Negative 12/25/2019 20:28 EDT [facility] Comment: This test has not been FDA cleared or approved. This test has been authorized by FDA under an EUA for use by authorized laboratories. This test has been authorized only for detection of nucleic acid from 2019-nCoV, not for any other viruses or pathogens. This test is only authorized for the duration of the declaration that circumstances exist justifying the authorization of emergency use of in vitro diagnostic tests for detection and/or diagnosis of 2019-nCoV under section 564(b)(1) of Act, 21 U.S.C ?? 360bbb-3(b) (1), unless the authorization is terminated or revoked sooner. Negative results do not preclude 2019-nCoV infection and should not be used as the sole basis for treatment or other patient management decisions. Negative results must be combined with clinical observations, patient history, and epidemiological information. Performed on the [employer] Fusion instrument Performing Lab [place] [facility] 12/25/2019 20:28 EDT [facility] Swab ENTIRE NASOPHARYNX / Unknown Swab / Unknown 12/25/2019 17:07 EDT 12/25/2019 17:13 EDT Zelalem Mariscal MD MICROBIOLOGY - GENER AL ORDERABLES [facility] [address] [place] [address] documented in this encounter Visit Diagnoses Diagnosis Acute intractable headache, unspecified headache type- Primary Acute intractable headache, unspecified headache type Headache documented in this encounter Administered Medications Inactive Administered Medications - up to 3 most recent administrations Medication Order MAR Action Action Date Dose Rate Site acetaminophen (TYLENOL) solution unit dose cup 650 mg 650 mg, per ng tube, EVERY 4 HOURS PRN, Starting on 12/25/19 at 1728, Until 12/26/19 at 1412, Pain, Routine, Release acetaminophen (TYLENOL) suppository 650 mg 650 mg, rectal, EVERY 4 HOURS PRN, Starting on 12/25/19 at 1728, Until 12/26/19 at 1412, Pain, Routine, Release acetaminophen (TYLENOL) tablet 650 mg 650 mg, oral, EVERY 4 HOURS PRN, Starting on 12/25/19 at 1728, Until 12/26/19 at 1412, Pain, Routine, Release Given 12/26/2019 5:21 EDT 650 mg Given 12/25/2019 22:07 EDT 650 mg clopidogreL (PLAVIX) tablet 75 mg 75 mg, oral, DAILY, First dose on 12/25/19 at 2100, Until Discontinued, Routine Given 12/26/2019 9:35 EDT 75 mg Given 12/25/2019 22:06 EDT 75 mg cyanocobalamin (VITAMIN B-12) tablet 1,000 mcg 1,000 mcg, oral, DAILY, First dose on 12/25/19 at 2100, Until Discontinued, Routine Given 12/26/2019 9:34 EDT 1,000 mcg Given 12/25/2019 22:06 EDT 1,000 mcg dextrose 50 % solution 12.5 g 12.5 g (25 mL), intravenous, PRN, Starting on 12/25/19 at 2036, Until 12/26/19 at 1412, Low Blood Sugar, Routine docusate sodium (COLACE) capsule 100 mg 100 mg, oral, 2 TIMES DAILY, First dose on 12/25/19 at 2100, Until Discontinued, Routine, Release Given 12/26/2019 9:35 EDT 100 mg Given 12/25/2019 22:06 EDT 100 mg famotidine (PEPCID) tablet 20 mg 20 mg, oral, 2 TIMES DAILY, First dose on 12/25/19 at 2100, Until Discontinued, Routine Given 12/26/2019 9:34 EDT 20 mg Given 12/25/2019 22:06 EDT 20 mg fluticasone propion-salmeteroL (ADVAIR) 250-50 mcg/dose diskus inhaler 1 Puff 1 Puff, inhalation, 2 TIMES DAILY, First dose on 12/25/19 at 2100, Until Discontinued Given 12/26/2019 9:35 EDT 1 Puff Given 12/25/2019 22:17 EDT 1 Puff gabapentin (NEURONTIN) capsule 800 mg 800 mg, oral, 3 TIMES DAILY, First dose on 12/25/19 at 2100, Until Discontinued Given 12/26/2019 9:35 EDT 800 mg Given 12/25/2019 22:06 EDT 800 mg glucagon injection 1 mg 1 mg, intramuscular, PRN, Starting on 12/25/19 at 2036, Until 12/26/19 at 1412, Low blood sugar, Routine lisinopriL (PRINIVIL) tablet 10 mg 10 mg, oral, DAILY, First dose on 12/25/19 at 2100, Until Discontinued, Routine Given 12/26/2019 9:35 EDT 10 mg Given 12/25/2019 22:06 EDT 10 mg metFORMIN (GLUCOPHAGE) tablet 1,000 mg 1,000 mg, oral, 2 TIMES DAILY, First dose on 12/25/19 at 2100, Until Discontinued, Routine Given 12/26/2019 9:35 EDT 1,000 mg Given 12/25/2019 22:06 EDT 1,000 mg pantoprazole (PROTONIX) tablet 40 mg 40 mg, oral, 2 TIMES DAILY, First dose on 12/25/19 at 2100, Until Discontinued, Routine Given 12/26/2019 9:35 EDT 40 mg Given 12/25/2019 22:06 EDT 40 mg varenicline (CHANTIX) tablet 0.5 mg 0.5 mg, oral, DAILY, First dose on 12/25/19 at 2100, Until Discontinued Given 12/26/2019 9:35 EDT 0.5 mg Given 12/25/2019 22:24 EDT 0.5 mg documented in this encounter Discontinued Medications Medication Sig Discontinue Reason Start Date End Da te clopidogrel (PLAVIX) 75 mg tablet Take 75 mg by mouth daily. 12/26/2019 documented as of this encounter Active and Recently Administered Medications Times are shown in EDT. Scheduled Medication Order 12/24/2019 12/25/2019 12/26/2019 clopidogreL (PLAVIX) tablet 75 mg 75 mg, oral, DAILY, First dose on 12/25/19 at 2100, Until Discontinued, Routine 2205 (Given - Provider: Leeann Manuel RN - Comment: Awaiting for pharmacy to verify medications ) 0935 (Given - Provider: Eleanor Carvajal RN) cyanocobalamin (VITAMIN B-12) tablet 1,000 mcg 1,000 mcg, oral, DAILY, First dose on 12/25/19 at 2100, Until Discontinued, Routine 2205 (Given - Provider: Leeann Manuel RN - Comment: Awaiting for pharmacy to verify medications ) 0934 (Given - Provider: Eleanor Carvajal RN) docusate sodium (COLACE) capsule 100 mg 100 mg, oral, 2 TIMES DAILY, First dose on 12/25/19 at 2100, Until Discontinued, Routine, Release 2205 (Given - Provider: Leeann Manuel RN - Comment: Awaiting for pharmacy to verify medications ) 0935 (Given - Provider: Eleanor Carvajal RN) famotidine (PEPCID) tablet 20 mg 20 mg, oral, 2 TIMES DAILY, First dose on 12/25/19 at 2100, Until Discontinued, Routine 220 (Given - Provider: Leeann Manuel RN - Comment: Awaiting for pharmacy to verify medications ) 0934 (Given - Provider: Eleanor Carvajal RN) fluticasone propion-salmeteroL (ADVAIR) 250-50 mcg/dose diskus inhaler 1 Puff 1 Puff, inhalation, 2 TIMES DAILY, First dose on 12/25/19 at 2100, Until Discontinued 2216 (Given - Provider: Leeann Manuel RN) 0935 (Given - Provider: Eleanor Carvajal RN) gabapentin (NEURONTIN) capsule 800 mg 800 mg, oral, 3 TIMES DAILY, First dose on 12/25/19 at 2100, Until Discontinued 2205 (Given - Provider: Leeann Manuel RN - Comment: Awaiting for pharmacy to verify medications ) 0935 (Given - Provider: Eleanor Carvajal RN)1400 (Canceled Entry - Provider: Batch Job User Admin - Comment: Automatically canceled at discontinue of medication order) lisinopriL (PRINIVIL) tablet 10 mg 10 mg, oral, DAILY, First dose on 12/25/19 at 2100, Until Discontinued, Routine 2205 (Given - Provider: Leeann Manuel RN - Comment: Awaiting for pharmacy to verify medications ) 0935 (Given - Provider: Eleanor Carvajal RN) metFORMIN (GLUCOPHAGE) tablet 1,000 mg 1,000 mg, oral, 2 TIMES DAILY, First dose on 12/25/19 at 2100, Until Discontinued, Routine 220 (Given - Provider: Leeann Manuel RN - Comment: Awaiting for pharmacy to verify medications ) 0935 (Given - Provider: Eleanor Carvajal RN) pantoprazole (PROTONIX) tablet 40 mg 40 mg, oral, 2 TIMES DAILY, First dose on 12/25/19 at 2100, Until Discontinued, Routine 2205 (Given - Provider: Leeann Manuel RN - Comment: Awaiting for pharmacy to verify medications ) 0935 (Given - Provider: Eleanor Carvajal RN) senna (SENOKOT) tablet 1 Tab 1 Tablet, oral, 2 TIMES DAILY, First dose on 12/27/19 at 0900, Until Discontinued, Routine, Release varenicline (CHANTIX) tablet 0.5 mg 0.5 mg, oral, DAILY, First dose on 12/25/19 at 2100, Until Discontinued 2224 (Given - Provider: Leeann Manuel RN) 0935 (Given - Provider: Eleanor Carvajal RN) PRN Medication Order 12/24/2019 12/25/2019 12/26/2019 acetaminophen (TYLENOL) solution unit dose cup 650 mg(Linked Group 1) 650 mg, per ng tube, EVERY 4 HOURS PRN, Starting on 12/25/19 at 1728, Until 12/26/19 at 1412, Pain, Routine, Release 2207 (See Alternative - Provider: Leeann Manuel RN) 0521 (See Alternative - Provider: Leeann Manuel RN) acetaminophen (TYLENOL) suppository 650 mg(Linked Group 1) 650 mg, rectal, EVERY 4 HOURS PRN, Starting on 12/25/19 at 1728, Until 12/26/19 at 1412, Pain, Routine, Release 2207 (See Alternative - Provider: Leaenn Manuel RN) 0521 (See Alternative - Provider: Leeann Manuel RN) acetaminophen (TYLENOL) tablet 650 mg(Linked Group 1) 650 mg, oral, EVERY 4 HOURS PRN, Starting on 12/25/19 at 1728, Until 12/26/19 at 1412, Pain, Routine, Release 2207 (Given - Provider: Leeann Manuel RN - Comment: Awaiting for pharmacy to verify medications ) 0521 (Given - Provider: Leeann Manuel RN) albuterol inhaler 90 mcg 90 mcg (1 Puff), inhalation, EVERY 6 HOURS PRN, Starting on 12/25/19 at 2036, Until 12/26/19 at 1412, Wheezing calcium carbonate (TUMS) 200 mg calcium (500 mg) per chewable tablet tablet,chewable 1 Tab 1 Tablet, oral, EVERY 4 HOURS PRN, Starting on 12/25/19 at 1731, Until 12/26/19 at 1412, Heartburn, Routine, Release dextrose 50 % solution 12.5 g 12.5 g (25 mL), intravenous, PRN, Starting on 12/25/19 at 2037, Until 12/26/19 at 1412, Low Blood Sugar, Routine glucagon injection 1 mg 1 mg, intramuscular, PRN, Starting on 12/25/19 at 2037, Until 12/26/19 at 1412, Low blood sugar, Routine hydrALAzine (APRESOLINE) 10 mg in sodium chloride (NS) 0.9 % 50 mL IVPB 10 mg, intravenous, Administer over 20 Minutes, EVERY 1 HOUR PRN, Starting on 12/25/19 at 1731, Until 12/26/19 at 1412, Routine, Release methocarbamoL (ROBAXIN) tablet 750 mg 750 mg, oral, EVERY 8 HOURS PRN, Starting on 12/25/19 at 1731, Until 12/26/19 at 1412, Other, muscle spasms, Routine, Release ondansetron (PF) (ZOFRAN) injection 4 mg 4 mg, intravenous, EVERY 4 HOURS PRN, Starting on 12/25/19 at 1731, Until 12/26/19 at 1412, Nausea, Routine, Release Linked Groups Order Group 1: acetaminophen (TYLENOL) tablet 650 mgJump to med 650 mg, oral, EVERY 4 HOURS PRN, Starting on 12/25/19 at 1728, Until 12/26/19 at 1412, Pain, Routine, Release Or acetaminophen (TYLENOL) solution unit dose cup 650 mgJump to med 650 mg, per ng tube, EVERY 4 HOURS PRN, Starting on 12/25/19 at 1728, Until 12/26/19 at 1412, Pain, Routine, Release Or acetaminophen (TYLENOL) suppository 650 mgJump to med 650 mg, rectal, EVERY 4 HOURS PRN, Starting on 12/25/19 at 1728, Until 12/26/19 at 1412, Pain, Routine, Release documented in this encounter Orders Medications Ordered That Eddie ht Not Have Been Administered Count Last Ordered Date First Ordered Date acetaminophen (TYLENOL) solu tion unit dose cup 650 mg 1 12/25/2019 acetaminophen (TYLENOL) suppository 650 mg 12/25/2019 albuterol inhaler 90 mcg 1 12/25/2019 calcium carbonate (TUMS) 200 mg calcium (500 mg) per chewable tablet tablet,chewable 1 Tab 1 12/25/2019 dextrose 50 % solution 12.5 g 1 12/25/2019 glucagon injection 1 mg 1 12/25/2019 hydrALAzine (APRESOLINE) 10 mg in sodium chloride (NS) 0.9 % 50 mL IVPB 1 12/25/2019 methocarbamoL (ROBAXIN) tablet 750 mg 1 03/2020 ondansetron (PF) (ZOFRAN) injection 4 mg 1 12/25/2019 senna (SENOKOT) tablet 1 Tab 1 12/25/2019 Nursing Count Last Ordered Date First Orde red Date CONTRAINDICATION TO ANTICOAG ULATION THERAPY 1 12/25/2019 Admission Count Last Ordered Date First Orde red Date INITIATE OBSERVATION STATUS 1 12/25/2019 Transfer Count Last Ordered Date First Orde red Date ED BED REQUEST 1 12/25/2019 TEACHING SERVICE 1 12/25/2019 Discharge Count Last Ordered Date First Orde red Date DISCHARGE PATIENT 1 12/26/2019 Legal Count Last Ordered Date First Orde red Date MISCELLANEOUS DISCHARGE INSTRUCTIONS 1 12/13 documented in this encounter Care Teams Preschool Teacher Relationship Specialty Start Date End Date Grant Lindsey MD [address] [place] [address] PCP - General 09/09/19 documented as of this encounter
--- OUTSIDE RECORDS SUMMARY | 2024-01-23 00:37 | XMS_ITS | Encounter Summary ---
Author Organization [facility] Address [address] [place] [address] Care Team Providers Care Accounting Machine Servicer Name Role Phone Grant Lindsey MD Primary Care Provider [phone] Reason for Visit * Auth/Cert Specialty Diagnoses / Procedures Referred By Nicol sparks Referred To Contact Diagnoses Cerebral aneurysm, nonruptured Procedures IN ANEURYSM, INTRACRAN, SIMPLE SURG Right craniotomy for surgical clipping of right middle cerebral aneurysm Referral ID Status Reason Start Date Expiration Date Visits Re quested Visits Authorized [id number] 1 1 Encounter Details Date Type Department Care Team (Late st Contact Info) Description 01/05/2020 7:25 EDT - 01/05/2020 12:25 EDT Surgery [facility] OR [address], [place] [id number] Alfonzo Cobb MD [address] [place] [address], [address] [place] [phone] Right craniotomy for surgical clipping of right middle cerebral aneurysm [09427 (CPT??)] Surgery Details Date/Time Status Location OR Service Patient Class Case Class Case Type Trauma Case? 01/05/20 0725 Posted [facility] [place] [facility] [place] Neurosurgery Surg josué Admit H - Elective Panel 1 Procedure LRB Anes Op Region Wound Class Comments Right craniotomy for surgica l clipping of right middle cerebral aneurysm Right General Head Class I/ Clean Surgeon Surgeon Role Service Panel Alfonzo Cobb MD Primary Neurosurgery 1 Antoine Castaneda MD Assisting Neurosurgery 1 Kyra Salas DO Resident - Assisting Neurosurge ry 1 Special Needs Neuroanesthesia, [facility] - Dr. Serrano confirmed 12/02/19. Nuvasive confirmed via email 12/04/19. Confirmation #: [id number] documented in this encounter Social History Tobacco [...] Sign Reading Time Taken Comments Blood Pressure 111/74 01/05/2020 0647 EDT Pulse - - Temperature 36.6 ??C (97.9 ??F) 01/05/2020 0647 EDT Respiratory Rate 18 01/05/2020 0647 EDT Oxygen Saturation 95% 01/05/2020 0647 EDT Inhaled Oxygen Concentration - - Weight [...] 12/02/2019 Added automatically from request for surgery [id number] ??? Aneurysm ([facility]) 01/05/2020 Resolved Hospital Problems No resolved problems to display. Principal Procedure: Right craniotomy for surgical clipping of right MCA aneurysm (Dr. 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 Lactose Intolerance (Lactase) ??? Neosporin [Vzfxohsy-Hhfklqesfjh-Ipekuvyvw] Nausea and rash There is no immunization [...] 10:00 Telemedicine Visit with Amber Lawrence PA-C [facility] Neurosurgery - [facility] (--) [address] [place] [phone] Follow-up appointments and procedures Amb Consult/Follow Up [...] speech, hyperparathyroidism, and SOCORRO who presented to [facility] ED on 12/24 with 4 days of [...] x7 days Neurosurgery resident 01/07/2020 7:17 Page [phone] with questions * Noble Bass, RT - 01/06/2020 5671 EDT Respiratory Consult/Progress Note Indications for Respiratory [...] as ordered. RT SOLOMON 01/06/20 * Petra Kapoor, RN - 01/06/2020 1429 EDT Case Management Contact Note: Attempted to meet patient x2 however she was asleep and then working with nursing. Will f/u tomorrow am. 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 I reviewed the patient's history and exam with the Neurosurgery Resident. I agree with the findings, assessment and treatment plan as documented in the resident's note. Doing well BT * Phylicia Johnson RT - 01/05/2020 1445 EDT Respiratory Consult/Progress Note Indications for Respiratory [...] speech, hyperparathyroidism, and SOCORRO who presented to [facility] ED on 12/24 with 4 days of [...] x7 days Neurosurgery resident 01/04/2020 9:35 Page 3266 with questions * Dona Gastelum RN - 01/05/2020 9527 EDT Preop Covid DOS screening questionnaire Please [...] Notes * Kyra Salas DO - 01/05/2020 2077 EDT The preoperative history and physical which [...] Salas DO 01/05/2020 7:28 Source Note - SUPERVISOR DOCK, SCAN 2 - 01/04/2020 16:15 EDT documented in this encounter OR Notes * OR Surgeon - Alfonzo Cobb MD - 01/05/2020 0535 EDT OPERATIVE REPORT SERVICE DATE: 01/05/2020 SURGEON: Alfonzo Cobb MD ASSISTANTS: Antoine Stanton DO, MD ANESTHESIA: General. PREOPERATIVE DIAGNOSIS: Right middle cerebral artery aneurysm. POSTOPERATIVE DIAGNOSIS: Right middle cerebral artery aneurysm. PROCEDURES: 1. Right pterional craniotomy. 2. Surgical clipping of right middle cerebral artery aneurysm. 3. Microsurgical technique. 4. Temporary clipping technique for clipping of aneurysm. 5. Intraoperative neurophysiological monitoring. EQUIPMENT USED: [employer] 7 mm curved aneurysm clip, [id number]. INDICATIONS: [...] in size and did have an abnormal sharon coming from the dome of the aneurysm.After [...] intraoperatively. Her head was fixed in the [place] 3-point headrest and turned about 45 degrees [...] one over the frontal bone. Dura stripped. [place] holes connected with the craniotome. Free bone flap was removed. The [employer] QD8 was then used to drill down the sphenoid ridge to allow exposure to the basal cisterns. Dura was opened and hinged anteriorly. Thus, the frontal and temporal lobes were exposed. A [employer] self-retaining retractor system was put in place. [...] open. We also used IC-Green to confirm [id number] patent and the aneurysm closed. Papaverine was [...] case.. Alfonzo Cobb MD / CF Confirmation: [id number] Dictation ID: [id number] cc: Alfonzo Cobb MD, [facility] - Neurosurgery, [address] [place] [address] Kyra Salas DO, [facility] - House Staff Mail, [address] [place] [address] Grant Lindsey MD, [facility], [address] [place] [address] documented in this encounter Miscellaneous Notes * Plan of Care - Orin Menchaca RN - 01/06/2020 1553 EDT Problem: High Fall Risk: Goal: Patient will Remain Free of Falls due to Med. Side Effects Note: D: Patient is a fall risk per fall scale. A: Educated patient distribution lead light usage, chair locked when in chair, bed locked and in lowest positions when in bed, call light and belongings are in reach. R: Patient has used call light approprietly throughout shift, no falls, will continue to monitor. * Plan of Care - Sarwat Jerry RN - 01/06/2020 0329 EDT Problem: Daily Care Plan Goals Goal: [...] medicated with 5mg oxy and tylenol see JUN. Action: Neuro exam stable since arrival from [...] Brief Op Note Surgeon: Alfonzo Cobb MD Grill Cook: Antoine Castaneda MD & Kyra Salas DO [...] x7 days Kyra Salas DO Neurosurgery Pager [phone] * PAT Note - Sherry Martin DO [...] EDT Cerebral aneurysm, nonruptured Special Needs Neuroanesthesia, [facility] - Dr. Serrano confirmed 12/02/19. Nuvasive confirmed via email 12/04/19. Confirmation #: [id number] TYPE AND SCREEN STAT 01/05/2020 7:10 EDT POCT GLUCOSE, INTERFACED Routine 01/05/2020 7:06 EDT ECG REPORT - SCANNED 01/04/2020 16:15 EDT documented in this encounter Results * PROCEDURE REPORTS - SCANNED (02/08/2020 9:02 EDT) 02/08/2020 9:02 EDT Scan 2 Assistant Customer Service Manager PROCEDURE/MINOR LAURY GICAL ORDERABLES * (ABNORMAL) POCT GLUCOSE, INTERFACED (01/07/2020 8:14 EDT) Glucose, POC 209(H) 70 - 100 mg/dL 01/07/2020 8:19 EDT [facility] tribal judge ID [id number] 01/07/2020 8:19 EDT [facility] HN LAB POC COMMENT (GLUCOSE) Test Performed by Nursing Services 01/07/2020 8:19 EDT [facility] Blood CAPILLARY BLOOD / Unknown 01/07/2020 8:14 EDT 01/07/2020 8:19 EDT Kyra Salas DO POINT OF CARE TEST ORDERABLES Performing Organization Address City/State/[facility] Co de Phone Number [facility] [address] [place] [address] * (ABNORMAL) COMPLETE BLOOD COUNT AND DIFFERENTIAL (01/07/2020 3:40 EDT) WBC 7.23 4.00 - 12.40 K/cmm 01/07/2020 4:25 [facility] RBC 3.44(L) 3.86 - 5.04 M/cmm 01/07/2020 4:25 [facility] Hemoglobin 10.0(L) 11.6 - 15.2 gm/dL 01/07/2020 4:25 [facility] HCT 30.1(L) 34.9 - 44.4 % 01/07/2020 4:25 [facility] MCV 88 81 - 98 fl 01/07/2020 4:25 [facility] MCH 29.1 26.7 - 33.3 pg 01/07/2020 4:25 [facility] MCHC 33.2 32.1 - 35.9 gm/dL 01/07/2020 4:25 [facility] RDW-CV 14.6 <14.7 % 01/07/2020 4:25 [facility] RDW-SD 45.7 <50.4 fl 01/07/2020 4:25 [facility] PLT 111(L) 141 - 377 K/cmm 01/07/2020 4:25 [facility] MPV 9.6 9.5 - 12.7 fl 01/07/2020 4:25 [facility] % Neutrophils 71.5 % 01/07/2020 4:25 [facility] % Lymphocytes 19.1 % 01/07/2020 4:25 [facility] % Monocytes 7.3 % 01/07/2020 4:25 [facility] % Eosinophils 0.3 % 01/07/2020 4:25 [facility] % Basophils 0.3 % 01/07/2020 4:25 [facility] % Immature Grans 1.5 % 01/07/20 20 4:25 [facility] Absolute Neutrophils 5.17 2.20 - 8.85 K/cmm 01/07/2020 4:25 [facility] Absolute Lymphocytes 1.38 1.09 - 3.30 K/cmm 01/07/2020 4:25 [facility] Absolute Monocytes 0.53 0.10 - 0.80 K/cmm 01/07/2020 4:25 [facility] Absolute Eosinophils 0.02(L) 0.03 - 0.61 K/cmm 01/07/2020 4:25 [facility] ABS Basophils 0.02 0.01 - 0.11 K/cmm 01/07/2020 4:25 [facility] Absolute Immature Grans 0.11(H) 0.00 - 0.06 K/cmm 01/07/2020 4:25 [facility] Type of Differential: Auto 01/07/2020 4:25 [facility] Blood VENOUS BLOOD / Unknown Venipuncture / Unknown 01/07/2020 3:40 EDT 01/07/2020 4:16 EDT Kyra Mare Eriks DO PACKAGES & DNA PROB E ORDERABLES Performing Organization Address [facility] Co de Phone Number [facility] [address] [place] [address] * CREATININE (01/07/2020 3:40 EDT) Creatinine 0.68 0.52 - 1.04 mg/dL 01/07/2020 5:11 EDT [facility] eGFR 96 >60 mL/min/1.7 3m2 01/07/2020 5:11 EDT [facility] Comment:eGFR calculated farhana mcclendon CKD-EPI equation for non- Americans. Multiply eGFR by 1.16 for patients. Blood VENOUS BLOOD / Unknown Venipuncture / Unknown 01/07/2020 3:40 EDT 01/07/2020 4:45 EDT Kyra R Yungoges DO CHEMISTRY & BLOOD G ORDERABLES Performing Organization Address [facility] Co de Phone Number [facility] [address] [place] [address] * BUN (01/07/2020 3:40 EDT) BUN 17 10 - 26 mg/dL 01/07/2020 5:11 EDT [facility] Blood VENOUS BLOOD / Unknown Venipuncture / Unknown 01/07/2020 3:40 EDT 01/07/2020 4:45 EDT Kyra R Limoges DO CHEMISTRY & BLOOD G ORDERABLES Performing Organization Address [facility] Co de Phone Number [facility] [address] [place] [address] * ELECTROLYTES (01/07/2020 3:40 EDT) Sodium 141 136 - 145 mEq/L 01/07/2020 5:11 EDT [facility] Potassium 4.5 3.5 - 5.0 mEq/L 01/07/2020 5:11 EDT [facility] Chloride 101 96 - 110 mEq/L 01/07/2020 5:11 EDT [facility] CO2 Total 27 22 - 32 mEq/L 01/07/2020 5:11 EDT [facility] Blood VENOUS BLOOD / Unknown Venipuncture / Unknown 01/07/2020 3:40 EDT 01/07/2020 4:45 EDT Kyra Salas DO CHEMISTRY & BLOOD G ORDERABLES Performing Organization Address City/[facility]/ZIP Co de Phone Number [facility] [address] [place] [address] * (ABNORMAL) POCT GLUCOSE, INTERFACED (01/06/2020 21:06 EDT) Glucose, POC 166(H) 70 - 100 mg/dL 01/06/2020 21:11 EDT [facility] tribal judge ID [id number] 01/06/2020 21:11 EDT [facility] HN LAB POC COMMENT (GLUCOSE) Test Performed by Nursing Services 01/06/2020 21:11 EDT [facility] Blood CAPILLARY BLOOD / Unknown 01/06/2020 21:06 EDT 01/06/2020 21:11 EDT Kyra Salas DO POINT OF CARE TEST ORDERABLES Performing Organization Address City/[facility] Co de Phone Number [facility] [address] [place] [address] * (ABNORMAL) POCT GLUCOSE, INTERFACED (01/06/2020 16:47 EDT) Glucose, POC 169(H) 70 - 100 mg/dL 01/06/2020 16:51 EDT [facility] tribal judge ID [id number] 01/06/2020 16:51 EDT [facility] HN LAB POC COMMENT (GLUCOSE) Test Performed by Nursing Services 01/06/2020 16:51 EDT [facility] Blood CAPILLARY BLOOD / Unknown 01/06/2020 16:47 EDT 01/06/2020 16:51 EDT Kyra Salas DO POINT OF CARE TEST ORDERABLES Performing Organization Address [facility]/ZIP Co de Phone Number [facility] [address] [place] [address] * (ABNORMAL) POCT GLUCOSE, INTERFACED (01/06/2020 11:33 EDT) Glucose, POC 177(H) 70 - 100 mg/dL 01/06/2020 11:38 EDT [facility] tribal judge ID [id number] 01/06/2020 11:38 EDT [facility] HN LAB POC COMMENT (GLUCOSE) Test Performed by Nursing Services 01/06/2020 11:38 EDT [facility] Blood CAPILLARY BLOOD / Unknown 01/06/2020 11:33 EDT 01/06/2020 11:38 EDT Alfonzo Cobb MD POINT OF CARE TEST ORDERABLES Performing Organization Address [facility] Co de Phone Number [facility] [address] [place] [address] * (ABNORMAL) POCT GLUCOSE, INTERFACED (01/06/2020 7:29 EDT) Glucose, POC 145(H) 70 - 100 mg/dL 01/06/2020 19:51 EDT [facility] tribal judge ID [id number] 01/06/2020 19:51 EDT [facility] HN LAB POC COMMENT (GLUCOSE) Test Performed by Nursing Services 01/06/2020 19:51 EDT [facility] Blood CAPILLARY BLOOD / Unknown 01/06/2020 7:29 EDT 01/06/2020 19:51 EDT Kyra Salas DO POINT OF CARE TEST ORDERABLES Performing Organization Address [facility] Co de Phone Number [facility] [address] [place] [address] * (ABNORMAL) COMPLETE BLOOD COUNT AND DIFFERENTIAL (01/06/2020 4:00 EDT) WBC 8.77 4.00 - 12.40 K/cmm 01/06/2020 4:19 [facility] RBC 3.49(L) 3.86 - 5.04 M/cmm 01/06/2020 4:19 [facility] Hemoglobin 10.0(L) 11.6 - 15.2 gm/dL 01/06/2020 4:19 [facility] HCT 29.8(L) 34.9 - 44.4 % 01/06/2020 4:19 [facility] MCV 85 81 - 98 fl 01/06/2020 4:19 [facility] MCH 28.7 26.7 - 33.3 pg 01/06/2020 4:19 [facility] MCHC 33.6 32.1 - 35.9 gm/dL 01/06/2020 4:19 [facility] RDW-CV 14.4 <14.7 % 01/06/2020 4:19 [facility] RDW-SD 44.2 <50.4 fl 01/06/2020 4:19 [facility] PLT 114(L) 141 - 377 K/cmm 01/06/2020 4:19 [facility] MPV 9.4(L) 9.5 - 12.7 fl 01/06/2020 4:19 [facility] % Neutrophils 83.4 % 01/06/2020 4:19 [facility] % Lymphocytes 10.4 % 01/06/2020 4:19 [facility] % Monocytes 4.8 % 01/06/2020 4:19 [facility] % Eosinophils 0.1 % 01/06/2020 4:19 [facility] % Basophils 0.2 % 01/06/2020 4:19 [facility] % Immature Grans 1.1 % 01/06/20 20 4:19 [facility] Absolute Neutrophils 7.31 2.20 - 8.85 K/cmm 01/06/2020 4:19 [facility] Absolute Lymphocytes 0.91(L) 1.09 - 3.30 K/cmm 01/06/2020 4:19 EDT [facility] Absolute Monocytes 0.42 0.10 - 0.80 K/cmm 01/06/2020 4:19 T [facility] Absolute Eosinophils 0.01(L) 0.03 - 0.61 K/cmm 01/06/2020 4:19 T [facility] ABS Basophils 0.02 0.01 - 0.11 K/cmm 01/06/2020 4:19 [facility] Absolute Immature Grans 0.10(H) 0.00 - 0.06 K/cmm 01/06/2020 4:19 T [facility] Type of Differential: Auto 01/06/2020 4:19 T [facility] Blood VENOUS BLOOD / Unknown Venipuncture / Unknown 01/06/2020 4:00 EDT 01/06/2020 4:05 EDT Kyra Salas DO PACKAGES & DNA PROB E ORDERABLES Performing Organization Address [facility] de Phone Number [facility] [address] [place] [address] * CREATININE (01/06/2020 4:00 EDT) Creatinine 0.61 0.52 - 1.04 mg/dL 01/06/2020 4:26 EDT [facility] eGFR 100 >60 mL/min/1.7 3m2 01/06/2020 4:26 EDT [facility] Comment:eGFR calculated farhana mcclendon CKD-EPI equation for non- Americans. Multiply eGFR by 1.16 for patients. Blood VENOUS BLOOD / Unknown Venipuncture / Unknown 01/06/2020 4:00 EDT 01/06/2020 4:05 EDT Kyra Salas DO CHEMISTRY & BLOOD G ORDERABLES Performing Organization Address [facility] Co de Phone Number [facility] [address] [place] [address] * BUN (01/06/2020 4:00 EDT) BUN 13 10 - 26 mg/dL 01/06/2020 4:26 EDT [facility] Blood VENOUS BLOOD / Unknown Venipuncture / Unknown 01/06/2020 4:00 EDT 01/06/2020 4:05 EDT Kyra Valenciagrayson DO CHEMISTRY & BLOOD G ORDERABLES Performing Organization Address City/[facility]/ZIP Co de Phone Number [facility] [address] [place] [address] * ELECTROLYTES (01/06/2020 4:00 EDT) Sodium 141 136 - 145 mEq/L 01/06/2020 4:26 EDT [facility] Potassium 4.5 3.5 - 5.0 mEq/L 01/06/2020 4:26 EDT [facility] Chloride 104 96 - 110 mEq/L 01/06/2020 4:26 EDT [facility] CO2 Total 25 22 - 32 mEq/L 01/06/2020 4:26 EDT [facility] Blood VENOUS BLOOD / Unknown Venipuncture / Unknown 01/06/2020 4:00 EDT 01/06/2020 4:05 EDT Kyra R Josue DO CHEMISTRY & BLOOD G ORDERABLES [facility] [address] [place] [address] * (ABNORMAL) POCT GLUCOSE, INTERFACED (01/05/2020 20:32 EDT) Glucose, POC 218(H) 70 - 100 mg/dL 01/05/2020 20:37 EDT [facility] tribal judge ID [id number] 01/05/2020 20:37 EDT [facility] HN LAB POC COMMENT (GLUCOSE) Test Performed by Nursing Services 01/05/2020 20:37 EDT [facility] Blood CAPILLARY BLOOD / Unknown 01/05/2020 20:32 EDT 01/05/2020 20:37 EDT Kyra Salas DO POINT OF CARE TEST ORDERABLES [facility] [address] [place] [address] * CT HEAD WO CONTRAST (01/05/2020 18:13 [...] 70 - 100 mg/dL 01/05/2020 16:46 EDT [facility] tribal judge ID [id number] 01/05/2020 16:46 EDT [facility] HN LAB POC COMMENT (GLUCOSE) Test Performed by Nursing Services 01/05/2020 16:46 EDT [facility] Blood CAPILLARY BLOOD / Unknown 01/05/2020 16:42 EDT 01/05/2020 16:46 EDT Kyra aSlas DO POINT OF CARE TEST ORDERABLES [facility] [address] [place] [address] * (ABNORMAL) POCT GLUCOSE, INTERFACED (01/05/2020 12:42 EDT) Glucose, POC 179(H) 70 - 100 mg/dL 01/05/2020 12:46 EDT [facility] tribal judge ID [id number] 01/05/2020 12:46 EDT [facility] HN LAB POC COMMENT (GLUCOSE) Test Performed by Nursing Services 01/05/2020 12:46 EDT [facility] Blood CAPILLARY BLOOD / Unknown 01/05/2020 12:42 EDT 01/05/2020 12:46 EDT Alfonzo Cobb MD POINT OF CARE TEST ORDERABLES Performing Organization Address City/State/[facility] Co de Phone Number [facility] [address] [place] [address] * (ABNORMAL) POCT BLOOD GAS, CG8 I-STAT (01/05/2020 9:53 EDT) iSTAT pH 7.39 7.35 - 7.45 01/05/2020 9:58 [facility] iSTAT pCO2 37 35 - 45 mmHg 01/05/2020 9:58 [facility] i-STAT pO2 68(L) 80 - 105 mmHg 01/05/2020 9:58 [facility] iSTAT TCO2 23 23 - 27 mmol/L 01/05/2020 9:58 [facility] LABORATORY SERVICES i-STAT O2 Saturation 93(L) 95 - 98 % 01/05/2020 9:58 [facility] LABORATORY SERVICES iSTAT Sodium 135(L) 136 - 145 mmol/L 01/05/2020 9:58 [facility] iSTAT Potassium 3.7 3.5 - 5.0 mmol/L 01/05/2020 9:58 [facility] iSTAT Glucose 117(H) 70 - 100 mg/dL 01/05/2020 9:58 [facility] iSTAT Hematocrit 31(L) 35 - 44 % PCV 01/05/2020 9:58 [facility] iSTAT Ionized Calcium 1.11(L) 1.12 - 1.32 mmol/L 01/05/2020 9:58 EDT [facility] LABORATORY SERVICES Base Deficit, i-STAT 2 -2 - 3 01/05/2020 9:58 T [facility] LABORATORY SERVICES Sample Source ARTERIAL 01/05/2020 9:58 EDT [facility] LABORATORY tribal judge ID [id number] 01/05/2020 9:58 T [facility] LABORATORY SERVICES HN LAB POC COMMENT (CG8) Test performed by Anesthesia. For non-arterial reference ranges, please see ISTAT procedure. 01/05/2020 9:58 T [facility] LABORATORY SERVICES Comment:For arterial collect ion, the [...] OF CARE TEST ORDERABLES Performing Organization Address City/[facility]/ZIP Co de Phone Number [facility] LABORATORY SERVICES [address] [place] [address] * PATIENT RE-TYPE (01/05/2020 8:12 EDT) ABO O 01/05/2020 8:25 EDT [facility] BLOOD BANK Rh Factor Positive 01/05/2020 8:25 EDT [facility] BLOOD BANK Blood VENOUS BLOOD / Unknown Venipuncture / Unknown 01/05/2020 8:12 EDT 01/05/2020 8:12 EDT Kenton Barnett MD BLOOD BANK TESTS [facility] BLOOD BANK [address] [place] [address] * PREPARE RED BLOOD CELLS (01/05/2020 7:34 EDT) Product Code [id number] [facility] LABORATORY SERVICES Donor Number [id number] [facility] LABORATORY SERVICES Unit [facility] Rh POS [facility] Unit Status RE^Released From [facility] LABORATORY SERVICES Product Expiration Date [id number] [facility] LABORATORY SERVICES Unit Blood Type Code 5100 [facility] LABORATORY SERVICES Volume 281 [facility] LABORATORY SERVICES Coding System [id number] [facility] LABORATORY SERVICES 01/05/2020 7:34 EDT Alfonzo Cobb MD BLOOD BANK ORDERABL ES Performing Organization Address City/[facility]/ZIP Co de Phone Number [facility] LABORATORY SERVICES [address] [place] [address] * PREPARE RED BLOOD CELLS (01/05/2020 7:34 EDT) Product Code [id number] [facility] LABORATORY SERVICES Donor Number [id number] [facility] LABORATORY SERVICES Unit ABO O [facility] Unit Rh POS [facility] LABORATORY SERVICES Unit Status RE^Released From [facility] LABORATORY SERVICES Product Expiration Date [id number] [facility] LABORATORY SERVICES Unit Blood Type Code 5100 [facility] LABORATORY SERVICES Volume 280 [facility] LABORATORY SERVICES Coding System [id number] [facility] LABORATORY SERVICES 01/05/2020 7:34 EDT Alfonzo Cobb MD BLOOD BANK ORDERABL ES Performing Organization Address City/[facility]/ZIP Co de Phone Number [facility] LABORATORY SERVICES [address] [place] [address] * TYPE AND SCREEN (01/05/2020 7:10 EDT) ABO O 01/05/2020 8:04 EDT [facility] BLOOD BANK Rh Factor Positive 01/05/2020 8:04 EDT [facility] BLOOD BANK Antibody Screen Negative 01/05/2020 8:04 EDT [facility] BLOOD BANK Specimen Expires: 01/08/2020 @ 23:59 01/05/2020 8:04 EDT [facility] BLOOD BANK Blood VENOUS BLOOD / Unknown Venipuncture / Unknown 01/05/2020 7:10 EDT 01/05/2020 7:22 EDT Alfonzo Cobb MD BLOOD BANK TESTS [facility] BLOOD BANK [address] [place] [address] * (ABNORMAL) POCT GLUCOSE, INTERFACED (01/05/2020 7:06 EDT) [facility] Glucose, POC 113(H) 70 - 100 mg/dL 01/05/2020 7:11 EDT [facility] LABORATORY tribal judge ID [id number] 01/05/2020 7:11 EDT [facility] LABORATORY SERVICES HN LAB POC COMMENT (GLUCOSE) Test Performed by Nursing Services 01/05/2020 7:11 EDT [facility] LABORATORY SERVICES Blood CAPILLARY BLOOD / Unknown 01/05/2020 7:06 EDT 01/05/2020 7:10 EDT Alfonzo Cobb MD POINT OF CARE TEST ORDERABLES Performing Organization Address City/[facility]/ZIP Co de Phone Number [facility] LABORATORY SERVICES [address] [place] [address] * ECG REPORT - SCANNED (01/04/2020 16:15 EDT) 01/04/2020 16:1 5 EDT Scan 2 Assistant Customer Service Manager PROCEDURE/MINOR LAURY GICAL ORDERABLES documented in this encounter Visit Diagnoses Diagnosis Cerebral aneurysm, nonruptured- Primary Cerebral aneurysm, nonruptured Cerebral aneurysm, nonruptured documented in this encounter Admitting Diagnoses Diagnosis [...] mg Given 01/06/2020 12:39 EDT 650 mg bupivacaine-EPINEPHrine (PF) 0.5 %-1:200,000 injection As needed, Starting on Fri01/05/20 at 0900, Until Fri01/05/20 at 0909, Routine, Intraprocedure Given 01/05/2020 9:00 EDT 15 mL carvediloL (COREG) tablet 6.25 mg 6.25 mg, oral, 2 TIMES DAILY, First dose on Fri01/05/20 at 2100, Until Discontinued, Routine Given 01/07/2020 8:49 EDT 6. 25 mg Given 01/06/2020 21:09 EDT 6.25 mg Given 01/06/2020 8:30 EDT 6.25 mg cellulose, oxidized 2 x 14 (SURGICEL) pad pad As needed, Starting on Fri01/05/20 at 1115, Until Fri01/05/20 at 1136, Intraprocedure Given 01/05/2020 11:15 EDT 1 Ea ch cyanocobalamin (VITAMIN B-12) tablet 1,000 mcg 1,000 [...] mg Given 01/06/2020 8:32 EDT 40 mg fluticasone propion-salmeteroL (ADVAIR) 250-50 mcg/dose diskus inhaler 1 Puff 1 Puff, inhalation, 2 TIMES DAILY, First dose on Fri01/05/20 at 2100, Until Discontinued Given 01/07/2020 8:02 EDT 1 Puff Given 01/06/2020 21:14 EDT 1 Puff Given [...] mg Given 01/06/2020 14:28 EDT 800 mg gelatin adsorbable 100 cm sponge As needed, Starting on Fri01/05/20 at 0901, Until Fri01/05/20 at 0909, Intraprocedure Given 01/05/2020 9:01 EDT 1 Eac h Gelatin Adsorbable powder As needed, Starting on Fri01/05/20 at 0901, Until Fri01/05/20 at 0909, Intraprocedure Given 01/05/2020 9:01 EDT 1,000 mg insulin aspart U-100 (NOVOLOG FLEXPEN) injection subcutaneous, 3 TIMES DAILY WITH MEALS, First dose on Fri01/05/20 at 1700, Until Discontinued, Routine Given 01/07/2020 8:50 EDT 4 Units Given 01/06/2020 17:25 EDT 3 Units Given 01/06/2020 12:40 EDT 3 Units levETIRAcetam (KEPPRA) 500 mg in sodium chloride [...] on Fri01/06/20 at 0700, Until Discontinued, Routine Given 01/06/2020 [...] mg Given 01/05/2020 20:12 EDT 15 mg ondansetron (PF) (ZOFRAN) injection 4 mg 4 [...] mg Given 01/06/2020 8:30 EDT 40 mg papaverine injection As needed, Starting on Fri01/05/20 at 1039, Until Fri01/05/20 at 1041, Routine, Intraprocedure Given 01/05/2020 10:39 EDT 60 mg risperiDONE (RISPERDAL) tablet 0.5 mg 0.5 [...] EDT 50 mg sodium chloride 0.9 % irrigation As needed, Starting on Fri01/05/20 at 0901, Until Fri01/05/20 at 0909, Routine, Intraprocedure Given 01/05/2020 9:01 EDT 1,000 mL Thrombin (Bovine) 5,000 unit topical solution As needed, Starting on Fri01/05/20 at 0901, Until Fri01/05/20 at 0909, Intraprocedure Given 01/05/2020 9:01 EDT 5, 000 Units documented in this encounter Discontinued Medications Medication [...] 0849 (Given - Provider: Orin Menchaca RN) clindamycin (CLEOCIN) IVPB 900 mg (COMPLETED) 900 [...] (See Alternative - Provider: Sarwat Jerry RN) 0831 (See Alternative - Provider: Orin Menchaca RN)2108 [...] Orin Menchaca RN)2108 (Given - Provider: Jack Drew, BRY) 0849 (Given - Provider: Orin Menchaca RN) risperiDONE (RISPERDAL) tablet 0.5 mg 0.5 mg, oral, AT BEDTIME, First dose on Fri01/05/20 at 2100, Until Discontinued, Routine 2011 (Given - Provider: Sarwat Jerry RN) 2108 (Given - Provider: Jack Drew, BRY) senna (SENOKOT) tablet 1 Tab 1 Tablet, [...] Valle, RN)1703 (New Bag - Provider: Viji Valle RN)1930 (Rate Change - Provider: Sarwat Jerry, RN)1999 (Rate Documented - Provider: Sarwat Jerry, RN)2037 (Completed - Provider: Sarwat Jerry, RN) niCARdipine (CARDENE) 50 mg in sodium chloride (NS) 0.9 % 500 mL peripheral infusion (CANCELED) 2.5-15 mg/hr (25-150 mL/hr), intravenous, CONTINUOUS, Starting on Fri01/05/20 at 2000, Until Koki 01/06/20 at 1834, Routine 1929 (Canceled Entry - Provider: Sarwat Jerry, RN)2038 (New Bag - Provider: Sarwat Jerry, RN)2100 (Rate Documented - Provider: Sarwat Jerry, RN)220 (Rate Documented - Provider: Sarwat Jerry, RN)2300 (Rate Documented - Provider: Sarwat Jerry, RN)2308 (Rate Change - Provider: Sarwat Jerry RN) 0000 (Rate Documented - Provider: Sarwat Jerry, RN)0044 (Paused - Provider: Sarwat Jerry, RN) sodium chloride 0.9 % with KCl 20 mEq/L infusion (CANCELED) at 75 mL/hr, intravenous, CONTINUOUS, Starting on Fri01/05/20 at 1300, Until Koki 01/06/20 at 1834, Routine, Release 1400 (New Bag - Provider: Viji Valle, BRY)1500 (Rate Documented - Provider: Viji Valle RN)1600 (Rate Documented - Provider: Viji Valle, RN)1700 (Rate Documented - Provider: Viji Valle, RN)1999 (Rate Documented - Provider: Sarwat Jerry, RN)2100 (Rate Documented - Provider: Sarwat Jerry, RN)2200 (Rate Documented - Provider: Sarwat Jerry, RN)2300 (Rate Documented - Provider: Sarwat Jerry, RN) 0000 (Rate Documented - Provider: Sarwat Jerry, RN)0100 (Rate Documented - Provider: Sarwat Jerry, RN)0200 (Rate Documented - Provider: Sarwat Jerry, RN)0300 (Rate Documented - Provider: Sarwat Jerry, RN)0500 (Rate Documented - Provider: Sarwat Jerry RN)0525 (Completed - Provider: Sarwat Jerry RN) [...] 16 (See Alternative - Provider: Sarwat Jerry RN)0404 (See Alternative - Provider: Sarwat Jerry RN)1239 [...] 16 (See Alternative - Provider: Sarwat Jerry RN)0404 (See Alternative - Provider: Sarwat Jerry RN)1239 [...] RN) 16 (Given - Provider: Sarwat Jerry RN)040 (Given - Provider: Sarwat Jerry RN)1239 (Given - Provider: Orin Menchaca RN)1724 (Given - Provider: Orin Menchaca RN) 0849 (Given - Provider: Orin Gittins, RN) bisacodyL (DULCOLAX) suppository 10 mg 10 [...] Routine, Release 1456 (Given - Provider: Viji Valle, BRY)2011 (Given - Provider: Sarwat Jerry RN) 0017 (Given - Provider: Sarwat Jerry RN)0404 (Given - Provider: Sarwat Jerry RN)0828 (Given - Provider: Orin Menchaca RN)1239 (Given - Provider: Orin Menchaca, BRY)1724 (Given - Provider: Orin Menchaca, BRY)2110 (Given - Provider: Jack Drew RN) 0848 (Given - Provider: Orin Menchaca, BRY) papaverine injection (CANCELED) As needed, Starting on [...] 01/05/2020 acetaminophen (TYLENOL) suppository 650 mg 01/05/2020 acetaminophen (TYLENOL) tablet 650 mg bisacodyL (DULCOLAX) suppository 10 mg 1 calcium carbonate (TUMS) 200 mg calcium (500 mg) per chewable tablet tablet,chewable 1 Tab 1 01/05/2020 carvediloL (COREG) tablet 6.25 mg 1 09/23/2 020 clindamycin (CLEOCIN) IVPB 900 mg 1 020 cyanocobalamin (VITAMIN B-12 ) tablet 1,000 mcg 1 01/05/2020 dexAMETHasone (DECADRON) tablet 4 mg 1 12/14 dextrose 50 % solution 12.5 g 2 01/05/2020 docusate sodium (COLACE) capsule 100 mg 1 0 01/05/2020 enoxaparin (LOVENOX) injection 40 mg 1 12/14 fentaNYL citrate (PF) injection 25-50 mcg 1 01/05/2020 fluticasone propion-salmeter oL (ADVAIR) 250-50 mcg/dose diskus inhaler 1 Puff 1 01/05/2020 furosemide (LASIX) tablet 20 mg 1 0 gabapentin (NEURONTIN) capsule 800 mg 1 glucagon injection 1 mg 2 01/05/2020 hydrALAZINE (APRESOLINE) injection 10 mg 1 01/05/2020 insulin aspart U-100 (NOVOLO G FLEXPEN) injection 3 01/05/2020 labetaloL (TRANDATE) injection 10 mg 1 12/14 lactated ringers (LR) infusion 1 01/05/2020 levETIRAcetam (KEPPRA) 500 m g in sodium chloride (NS) 0.9 % 100 mL IVPB 1 01/05/2020 levETIRAcetam (KEPPRA) tablet 500 mg 12/14 levothyroxine (SYNTHROID) tablet 50 mcg 1 0 01/05/2020 lidocaine (PF) 10 mg/mL (1 % ) injection 2 mg 1 01/05/2020 lisinopriL (PRINIVIL) tablet 10 mg 1 2019 loratadine (CLARITIN) tablet 10 mg 1 2019 metFORMIN (GLUCOPHAGE) tablet 1,000 mg 1 methocarbamoL (ROBAXIN) tablet 750 mg 1 mirtazapine (REMERON) tablet 15 mg 1 2019 niCARdipine (CARDENE) 25 mg in sodium chloride (NS) 0.9 % 250 mL peripheral infusion 1 01/05/2020 niCARdipine (CARDENE) 50 mg in sodium chloride (NS) 0.9 % 500 mL peripheral infusion 01/05/2020 ondansetron (PF) (ZOFRAN) injection 4 mg 1 01/05/2020 oxyCODONE (ROXICODONE) immed iate release tablet 5-15 mg 1 01/05/2020 pantoprazole (PROTONIX) tablet 40 mg 1 12/14 risperiDONE (RISPERDAL) tablet 0.5 mg 1 senna (SENOKOT) tablet 1 Tab 1 01/05/2020 sertraline (ZOLOFT) tablet 50 mg 1 01/05/20 20 sodium chloride 0.9 % with K Cl 20 mEq/L infusion 1 01/05/2020 varenicline (CHANTIX) tablet 0.5 mg [...] 12/14 documented in this encounter Care Teams Accounting Machine Servicer Relationship Specialty Start Date End Date Grant Lindsey MD [address] [place] [address] PCP - General 09/09/19 documented as of this encounter
--- OUTSIDE RECORDS SUMMARY | 2024-01-23 00:37 | XMS_ITS | Encounter Summary ---
Author Organization [facility] Address [address] [place] [address] Care Team Providers Care Carpenter And Joiner Name Role Phone Grant Lindsey MD Primary Care Provider [phone] Reason for Visit * Reason Onset Date Comments Post-OP Follow Up 01/11/2020 Encounter Details Date Type Department Care Team (Late st Contact Info) Description 01/11/2020 Telephone [facility] Neurosurgery - [facility] [place] [address] [place], [place] [id number] Meghan Garcia RN Post-OP Follow Up Social History Tobacco Use Types Packs/Day Years [...] Telephone Encounter - Meghan Garcia RN - 01/11/2020 0857 EDT SERVICE DATE: ??01/05/2020 ?? SURGEON:?? Alfonzo Cobb MD ?? ASSISTANTS:?? Kyra Salas DO, Antoine Castaneda MD ?? ANESTHESIA:?? General. ?? PREOPERATIVE DIAGNOSIS:?? Right middle cerebral artery aneurysm. ?? POSTOPERATIVE DIAGNOSIS:?? Right middle cerebral artery aneurysm. ?? PROCEDURES:? 1.?? Right pterional craniotomy. 2.?? Surgical clipping of right middle cerebral artery aneurysm. 3.?? Microsurgical technique. 4.?? Temporary clipping technique for clipping of aneurysm. 5.?? Intraoperative neurophysiological monitoring. Absorbable suture Message left for daughter as patient's phone lines are unavailable. Spoke with the patient. Both eyes were swollen shut post procedure, but that has greatly improved. She has some pressure in her head which resolves with tylenol. Portfolio Management Marketing encouraged rest with head elevated. Appetite and fluid intake good. Bowels loose. Advised the patient to discontinue laxative. Burning with urination. Advised follow up with PCP to check urine. She is currently staying with family. documented in this encounter Plan of Treatment Not on file documented as of this encounter Visit Diagnoses Not on filedocumented in this encounter Care Teams Carpenter And Joiner Relationship Specialty Start Date End Date Grant [place] [address] PCP - General 09/09/19 documented as of this encounter
--- OUTSIDE RECORDS SUMMARY | 2024-01-23 00:37 | XMS_ITS | Encounter Summary ---
Author Organization [facility] Address [address] [place] [address] Care Team Providers Care Human Service Specialist Name Role Phone Grant Lindsey MD Primary Care Provider [phone] Reason for Visit * (Routine) - Receiving Office to Obtain Authorization Specialty Diagnoses / Procedures Referred By Nicol sparks Referred To Contact Procedures CT OUTSIDE IMAGES NEURO Unknown, Provider, Referral ID Status Reason Start Date Expiration Date Visits Requested Visits Authorized [id number] Receiving Office to Obtain Authorization 01/19/2020 1 1 Encounter Details Date Type Department Care Team (Latest Contact Info) Description 01/19/2020 12:42 EDT - 01/19/2020 23:59 EDT Hospital Encounter [facility] [place] Discharge Disposition: Home or [...] No 12/25/2019 documented as of this encounter Medications at [...] Diagnosis Comments CT OUTSIDE IMAGES NEURO Routine 01/19/2020 12:42 EDT documented in this encounter Results * CT OUTSIDE IMAGES NEURO (01/19/2020 12:42 EDT) Narrative 01/19/2020 12:42 EDT This is a non-reportable exam. Provider Unknown MD [facility] OTHER IMAGING OR DERABLES documented in this encounter Visit Diagnoses Not on filedocumented in this encounter Care Teams Human Service Specialist Relationship Specialty Start Date End Date Grant Lindsey MD [address] [place] [address] PCP - General 09/09/19 documented as of this encounter
--- OUTSIDE RECORDS SUMMARY | 2024-01-23 00:37 | XMS_ITS | Encounter Summary ---
Author Organization [facility] Address [address] [place] [address] Care Team Providers Care Lining Maker Name Role Phone Grant Lindsey MD Primary Care Provider [phone] Encounter Details Date Type Department Care Team (Late st Contact Info) Description 01/04/2020 Prep for Procedure [facility] Neurosurgery - [facility] [address] [place], [place] [address] Amber Lawrence PA-C [address] [facility] [place] [address] Social History Tobacco Use Types Packs/Day Years [...] on filedocumented in this encounter Care Teams Lining Maker Relationship Specialty Start Date End Date Grant [place] [address] PCP - General 09/09/19 documented as of this encounter
--- OUTSIDE RECORDS SUMMARY | 2024-01-23 00:37 | XMS_ITS | Encounter Summary ---
Author Organization [facility] Address [address] [place] [address] Care Team Providers Care Tool Checker Name Role Phone Grant Lindsey MD Primary Care Provider [phone] Reason for Visit * Reason Onset Date Comments Appointment Related 01/04/2020 Encounter Details Date Type Department Care Team (Late st Contact Info) Description 01/04/2020 Telephone [facility] Neurosurgery - [facility] [address] [place], [place] [id number] Alfonzo Cobb MD [address] [facility] [place] [address] Appointment Related Social History Tobacco [...] * Telephone Encounter - Dorcas Bolanos - 01/04/2020 1351 EDT LM for Kallie with the following details her surgery on 01/05/[address] Alfonzo Cobb Check in at 6am at registration - located on level 3 Surgery at 7:30am Stop clear liquids at 4:30am No solids after midnight Advised Kallie to contact our office if she has any questions. documented in this encounter Plan of Treatment Not on file documented as of this encounter Visit Diagnoses Not on filedocumented in this encounter Care Teams Tool Checker Relationship Specialty Start Date End Date Grant Lindsey MD [address] [place] [address] PCP - General 09/09/19 documented as of this encounter
--- OUTSIDE RECORDS SUMMARY | 2024-01-23 00:37 | XMS_ITS | Encounter Summary ---
Author Organization [facility] Address [address] [place] [address] Care Team Providers Care Service Or Work Dispatcher Name Role Phone Grant Lindsey MD Primary Care Provider Reason for Visit * Reason Onset Date Comments Facial Swelling 01/09/2020 Encounter Details Date Type Department Care Team (Late st Contact Info) Description 01/09/2020 Telephone [facility] [address] [place], [place] [address] Leonard Nash MD [address] [place], [place] [address] Facial Swelling Social History Tobacco Use Types Packs/Day Years [...] encounter Miscellaneous Notes * Telephone Encounter - Leonard Nash MD - 01/09/2020 0835 EDT Received call from patient regarding eye swelling. Patient reports that she continues to have post-operative right eye swelling and more recently lefteye swelling. Reports that it is hard to see and she has been bumping into things around the house.She has been using ice packs and cold showers for symptomatic management of swelling. Patient reported that she is thinking about staying with a friend for a few days until swelling goes down to avoid any fall. I informed patient that this was a sound plan and recommended use of walker/cane while swelling persists. Patient agreeable with this plan. No new/changing headaches, no changes in vision, no nausea/vomiting, baseline slurred speech, no numbness/tingling, no focal weakness, no confusion, no sleepiness. Recommended that if symptoms worsen patient should present to ED for further evaluation. LEONARD NASH MD 01/09/2020 8:35 documented in this encounter Plan of Treatment Not on file documented as of this encounter Visit Diagnoses Not on filedocumented in this encounter Care Teams Service Or Work Dispatcher Relationship Specialty Start Date End Date Grant Lindsey MD [address] [place] [address] PCP - General 09/09/19 documented as of this encounter
--- OUTSIDE RECORDS SUMMARY | 2024-01-23 00:37 | XMS_ITS | Encounter Summary ---
Author Organization [facility] Address [address] [place] [address] Care Team Providers Care Sticker Operator Name Role Phone Grant Lindsey MD Primary Care Provider [phone] Reason for Visit * Reason Comments Headache * Consult (Routine) - Order Cancelled Specialty Diagnoses / Procedures [facility] To Contact Neurosurgery Diagnoses Cerebral aneurysm, nonruptured Orin Bassett MD [address] [place] [address] Alfonzo Cobb MD [address] [id number] Referral ID Status Reason Start Date Expiration Date Visits Requested Visits Authorized [id number] Order Cancelled Specialty Services Required 01/07/2020 1 1 Encounter Details Date Type Department Care Team (Late st Contact Info) Description 02/03/2020 10:00 EDT Telemedicine [facility] Neurosurgery - [facility] [address] [place], [place] [id number] Amber Lawrence PA-C [address] [phone] Other headache syndrome (Primary Dx); Cerebral aneurysm, nonruptured Social History Tobacco Use Types Packs/Day Years [...] No 12/25/2019 documented as of this encounter Progress Notes * Amber Lawrence PA-C - 02/03/2020 1000 EDT Grant Lindsey MD Dear Dr Lindsey: I spoke with Kallie Darling by phone today in followup by telemedicine. As you know, she was hospitalized earlier this fall for symptoms surrounding a cerebral aneurysm. This was electively clippedby Dr Cobb on 01/05/2020. She had presented with headache and did well during her hospitalization. She was discharged on January 06 and has struggled with headaches since that time. She was sentto the emergency room by our nurse on 01/14/2020. The patient initially refused evaluation at her local ED, but then was re-sent a few days later and she did present there. She underwent a CTA, whichwas not reviewed until today by our office. The patient states that she has had ongoing headache the same as she had prior to her aneurysm clipping. However, the headache is positional. She feels better lying down and develops a headache when sitting up or standing. She gets to the point where she is vomiting secondary to the headache. She also feels a great deal of pressure in her head and generally not well. She has been trying to take Tylenol for the headache, but she is concerned that she has some cirrhosis of the liver. In general, she is not feeling well. In fact, when I spoke with her by phone, she was walking outside her house because of the pain in her head. Radiographic Evidence: The patient has had a CT angiogram at an outside hospital. I did review thisscan today. The report does not read hydrocephalus, but her ventricles do appear slightly enlarged,especially her third ventricle. I did review the scan with Dr Verde in Dr Cobb's absence and heagreed that there is some hydrocephalus. Impression: 1. Status post elective aneurysm clipping. 2. Positional headache with increased ventricle size. Plan: I did try to re-contact the patient after my discussion with her for her telemedicine appointment. I was unable to do so, but our nurse Ayala Garcia RN, did talk to her. I advised Ayala to have the patient come to our emergency room to be evaluated given her positional headache and potential increased ventricle size. Thank you for involving us in this patient's care. Sincerely, Amber Lawrence PA-C The concept of ???Telemedicine?? has been described to the patient.? Patient has been informed of the anticipated benefits and possible risks.? Patient understands the information provided regardingtelemedicine, has had the opportunity to ask questions about this information, and all questions have been answered to patient???s satisfaction. Patient consents for the use of telemedicine in his/her medical care and authorizes the transmission of any relevant medical information to providers and their staff involved in patient???s medical or mental health care. This visit was conducted by telephone. I spent a total of 10 minutes in discussion with the patientas described in the progress note. documented in this encounter Plan of Treatment Not on file documented as of this encounter Visit Diagnoses Diagnosis Other headache syndrome- Primary Cerebral aneurysm, nonruptured documented in this encounter Care Teams Sticker Operator Relationship Specialty Start Date End Date Grant Lindsey MD [address] [place] [address] PCP - General 09/09/19 documented as of this encounter
--- OUTSIDE RECORDS SUMMARY | 2024-01-23 00:37 | XMS_ITS | Encounter Summary ---
Author Organization [facility] Address [address] [place] [address] Care Team Providers Care Supervisor Line Department Name Role Phone Grant Lindsey MD Primary Care Provider [phone] Encounter Details Date Type Department Care Team (Late st Contact Info) Description 12/31/2019 Lab Requisition [facility] Pathology & Laboratory Medicine - [facility] [address] [place] [address] Outr Resulting Lab, Provider Social History Tobacco [...] Procedure Name Priority Date/Time Associated Diagnosis Comments DO NOT ORDER STANDALONE - BROAD COVID TEST Today 12/31/2019 10:48 EDT COVID-19 TESTING Routine 12/31/2019 10:4 8 EDT documented in this encounter Results * DO NOT ORDER STANDALONE - BROAD COVID TEST (12/31/2019 10:48 EDT) COVID-19 rt-PCR Result NEGATIVE Negative 01/01/2020 16:10 EDT [facility] Comment: 2019-novel Coronavirus (2019-nCoV) not detected by the qRT-PCR assay. Consider testing for other respiratory viruses or re-collecting for 2019-nCoV testing. Note: Optimum timing for peak viral levels during infections caused by 2019-nCoV have not been determined. Collection of multiple specimens from the same patient may be necessary to detect the virus. Limitations Positive results are indicative of active infection with SARS-CoV-2 but do not rule out bacterial infection or co-infection with other viruses. The agent detected may not be the definite cause of disease. In addition, detection of viral RNA may not indicate the presence of infectious virus or that SARS-CoV-2 is the causative agent for clinical symptoms. Negative results do not preclude SARS-CoV-2 infection and should not be used as the sole basis for patient management decisions. Negative results must be combined with clinical observations, patient history, and epidemiological information. False negative results may also occur if amplification inhibitors are present in the specimen or if inadequate numbers of organisms are present in the specimen. Optimum specimen types and timing for peak viral levels during infections caused by SARS-CoV-2 have not been fully determined. Collection of multiple specimens (types and time points) from the same patient may be necessary to detect the virus. The test was validated for use with upper respiratory specimens obtained via nasopharyngeal or oropharyngeal swabs in VTM, UTM, M4, M5, M6, saline, and MTM media. The performance of this test has not been established for other specimens. Specimens collected using other FDA recommended Specimen Collection Materials listed in the FDA COVID-19 [employer] communication (July 08, 2019) are processed with the caveat that they were not all validated for use with this test and the result must be interpreted in this context. Furthermore, a false negative results may occur if a specimen is improperly collected, transported or handled. If the virus mutates in the RT-PCR target region, SARS-CoV-2 may not be detected or may be detected less predictably. Inhibitors or other types of interference may produce a false negative result. An interference study evaluating the effect of common cold medications was not performed. This test is not FDA-cleared but its performance characteristics were established by our CLIA-certified, CAP-accredited, high complexity laboratory in accordance with CLIA regulations, College of [place] (CAP) guidelines (Jul 01, 2019), and FDA guidance (Jun 12, 2019). This test is only for use under the Food and Drug Administration's Emergency Use Authorization. Swab ENTIRE NASOPHARYNX / Unknown 12/31/2019 10:48 EDT 12/31/2019 21:28 EDT Provider Outr Resulting Lab MICROBIOLOGY - GENERAL ORDERABLES [facility] [place], [place] * COVID-19 TESTING (12/31/2019 10:48 EDT) COVID-19 rt-PCR Result NEGATIVE Negative 01/01/2020 17:42 EDT [facility] Comment: 2019-novel Coronavirus (2019-nCoV) not detected by the qRT-PCR assay. Consider testing for other respiratory viruses or re-collecting for 2019-nCoV testing. Note: Optimum timing for peak viral levels during infections caused by 2019-nCoV have not been determined. Collection of multiple specimens from the same patient may be necessary to detect the virus. Limitations Positive results are indicative of active infection with SARS-CoV-2 but do not rule out bacterial infection or co-infection with other viruses. The agent detected may not be the definite cause of disease. In addition, detection of viral RNA may not indicate the presence of infectious virus or that SARS-CoV-2 is the causative agent for clinical symptoms. Negative results do not preclude SARS-CoV-2 infection and should not be used as the sole basis for patient management decisions. Negative results must be combined with clinical observations, patient history, and epidemiological information. False negative results may also occur if amplification inhibitors are present in the specimen or if inadequate numbers of organisms are present in the specimen. Optimum specimen types and timing for peak viral levels during infections caused by SARS-CoV-2 have not been fully determined. Collection of multiple specimens (types and time points) from the same patient may be necessary to detect the virus. The test was validated for use with upper respiratory specimens obtained via nasopharyngeal or oropharyngeal swabs in VTM, UTM, M4, M5, M6, saline, and MTM media. The performance of this test has not been established for other specimens. Specimens collected using other FDA recommended Specimen Collection Materials listed in the FDA COVID-19 [employer] communication (July 08, 2019) are processed with the caveat that they were not all validated for use with this test and the result must be interpreted in this context. Furthermore, a false negative results may occur if a specimen is improperly collected, transported or handled. If the virus mutates in the RT-PCR target region, SARS-CoV-2 may not be detected or may be detected less predictably. Inhibitors or other types of interference may produce a false negative result. An interference study evaluating the effect of common cold medications was not performed. This test is not FDA-cleared but its performance characteristics were established by our CLIA-certified, CAP-accredited, high complexity laboratory in accordance with CLIA regulations, College of [employer] (CAP) guidelines (Jul 01, 2019), and FDA guidance (Jun 12, 2019). This test is only for use under the Food and Drug Administration's Emergency Use Authorization. Performing Lab [facility] 01/01/2020 17:42 EDT [facility] Swab 12/31/2019 10:4 8 EDT 12/31/2019 21:28 EDT Provider Outr Resulting Lab MICROBIOLOGY - GENERAL ORDERABLES [facility] [address] [place] [address] [facility] [place], [place] documented in this encounter Visit Diagnoses Not on filedocumented in this encounter Care Teams Supervisor Line Department Relationship Specialty Start Date End Date rGant Lindsey MD [address] [place] [address] PCP - General 09/09/19 documented as of this encounter
--- OUTSIDE RECORDS SUMMARY | 2024-01-23 00:38 | XMS_ITS | Encounter Summary ---
Author Organization [facility] Address [address] [place] [address] Care Team Providers Care Customer Care Coordinator Name Role Phone Grant Lindsey MD Primary Care Provider [phone] Encounter Details Date Type Department Care Team (Latest Contact Info) Description 12/25/2019 Travel Social History Tobacco Use Types Packs/Day [...] on filedocumented in this encounter Care Teams Customer Care Coordinator Relationship Specialty Start Date End Date Grant Lindsey MD [address] [place] [address] PCP - General 09/09/19 documented as of this encounter
--- OUTSIDE RECORDS SUMMARY | 2024-01-23 00:38 | XMS_ITS | Encounter Summary ---
Author Organization [facility] Address [address] [place] [address] Care Team Providers Care Income Tax Analyst Name Role Phone Jacquelyn Mehul Brittney SMITH Primary Care Provider [phone] Reason for Visit * Reason Onset Date Comments Referral Request 05/17/2019 Encounter Details Date Type Department Care Team (Late st Contact Info) Description 05/17/2019 Telephone [facility] Ophthalmology - [address] [address] Rigoberto Dos Santos MD 111 [facility], [facility] [address] [place] [address] Referral Request Social History Tobacco Use Types Packs/Day Years Used Date Smoking Tobacco: Every Day Smokeless Tobacco: Never Alcohol Use Standard Drinks/Week Comments No 0 (1 standard drink = 0.6 oz pur e alcohol) AUDIT-C Answer Date Recorded Frequency of Alcohol Consumption Never 06/25/2018 Average Number of Drinks Not on file 019 Frequency of Binge Drinking Not on file 06/12 Sex and Gender Information Value Date Recorded Sex Assigned at Not on file Gender Identity Female 09/09/2019 13:11 EDT Sexual Orientation Not on file documented as of this encounter Miscellaneous Notes * Telephone Encounter - Abbey Rae - 05/25/2019 1110 EST PT is all set faxed this last week * Telephone Encounter - Kalani Mcclelland - 05/17/2019 0939 EST Patient calls to request a Medicaid referral for her appt with on 06/11/2019 at 11:30. She states that Dr. Dos Santos is the one that referred her to see . Please let her know when thishas been done. documented in this encounter Plan of Treatment Not on file documented as of this encounter Visit Diagnoses Not on filedocumented in this encounter Care Teams Income Tax Analyst Relationship Specialty Start Date End Date Mehul Valladares DO PCP - General 06/25/18 09/08/19 documented as of this encounter
--- OUTSIDE RECORDS SUMMARY | 2024-01-23 00:38 | XMS_ITS | Encounter Summary ---
Author Organization [facility] Address [address] [place] [address] Care Team Providers Care Insurance Clerk Name Role Phone ChikisMehul underwood Brittney SMITH Primary Care Provider [phone] Reason for Visit * Reason Onset Date Comments Other 12/17/2018 Encounter Details Date Type Department Care Team (Late st Contact Info) Description 12/17/2018 Telephone [facility] Ophthalmology - [facility] [address] [place], [place] [id number] Rigoberto Dos Santos MD 111 [facility], [address] [place] [address] Other Social History Tobacco Use Types Packs/Day [...] encounter Miscellaneous Notes * Telephone Encounter - George Smith RN - 12/24/2018 0841 EDT Spoke to Glory. She spoke to [facility] yesterday. They are aware her appointment is for Monday 12/25. Called and updated patient. She has spoken to them. They don't have a time to pick her up but she willcall them back later. George Smith RN 12/24/2018 8:43 * Telephone Encounter - Camryn Mcfarland - 12/24/2018 0814 EDT Patient has appt tomorrow 12/25. Says she spoke to someone in our office that was going to set her up a ride with [facility] but she hasnt heard anything yet. Patient said she will try calling them herself but usually they need a call from the Dr office * Telephone Encounter - Camryn Mcfarland - 12/23/2018 1002 EDT Pt is scheduled with 12/25. Form was faxed 12/22 * Telephone Encounter - Ethel Vasquez RN - 12/22/2018 1221 EDT Form has been filled out and signed by Dr. Dos Santos. Hilary has form and will be trying to get in touch with patient to schedule appointment. * Telephone Encounter - Camryn Mcfarland - 12/22/2018 1106 EDT Tried patient twice * Telephone Encounter - George Smith, BRY - 12/17/2018 1501 EDT 2020 form filled out and faxed to [facility] to have Dr Dos Santos sign next when he is back. Just waiting for appointment date and time. Hilary to call and schedule this. George Smith RN 12/17/2018 15:01 * Telephone Encounter - George Smith RN - 12/17/2018 1423 EDT Hilary to call and schedule before the weekend. 2020 needs to be filled out and faxed to Me. Medicaid once done. George Smith RN 12/17/2018 14:24 * Telephone Encounter - George Smith RN - 12/17/2018 1414 EDT Called and spoke to patient. She needs ride from [facility] due to poor vision. She needs a medicaid form filled out. 2020 form. She does not have an appointment at this time. Stated I would have Hilary call her back to schedule. She is aware Dr. Dos Santos is out until early next. George Smith RN 12/17/2018 14:19 * Telephone Encounter - Abbey Rae - 12/17/2018 1214 EDT Pt calling regarding transportation she does not feel comfortable driving here with her vision the way it is now and would like to use [facility]. In order for her to use [facility] she needs something from us stating she has apt with us. Please call pt back documented in this encounter Plan of Treatment Not on file documented as of this encounter Visit Diagnoses Not on filedocumented in this encounter Care Teams Insurance Clerk Relationship Specialty Start Date End Date Mehul Valladares DO PCP - General 06/25/18 09/08/19 documented as of this encounter
--- OUTSIDE RECORDS SUMMARY | 2024-01-23 00:38 | XMS_ITS | Encounter Summary ---
Author Organization [facility] Address [address] [place] [address] Care Team Providers Care Software Deployment Engineer Name Role Phone Grant Lindsey MD Primary Care Provider Reason for Visit * Reason Onset Date Comments Appointment Related 09/13/2019 Encounter Details Date Type Department Care Team (Late st Contact Info) Description 09/13/2019 Telephone [facility] Neurosurgery - [facility] [address] [place], [place] [phone] Alfonzo Cobb MD 111 [facility], [address] [place] [address] Appointment Related Social History Tobacco Use Types Packs/Day Years Used Date Smoking Tobacco: Every Day Cigarettes 0.5 45 Smokeless Tobacco: Never Alcohol Use Standard Drinks/Week [...] have Coronavirus / COVID-19? No / Unsure 09/09/2019 13:09 EDT documented as of this encounter Functional [...] serious difficulty concentrating, remembering, or making decisions? Yes 06/11/2019 documented as of this encounter Miscellaneous Notes * Telephone Encounter - Gricelda Short - 09/13/2019 1525 EDT Left message for patient that instead of Dr. Cobb seeing her in IR after the angiogram, she should come up to our office on EP5 when she is done. Instructed patient to call our office with any questions. documented in this encounter Plan of Treatment Not on file documented as of this encounter Visit Diagnoses Not on filedocumented in this encounter Care Teams Software Deployment Engineer Relationship Specialty Start Date End Date Grant Lindsey MD [facility] [place] [address] PCP - General 09/09/19 documented as of this encounter
--- OUTSIDE RECORDS SUMMARY | 2024-01-23 00:38 | XMS_ITS | Encounter Summary ---
Author Organization [facility] Address [address] [place] [address] Care Team Providers Care Welder 2Nd Shift Name Role Phone Mehul Valladares DO Primary Care Provider [phone] Grant Lindsey MD Primary Care Provider [phone] Encounter Details Date Type Department Care Team (Late st Contact Info) Description 08/27/2019 Lab Requisition [facility] Pathology & Laboratory Medicine - [facility] [address] [place] [address] Outr Resulting Lab, Provider Social History Tobacco [...] Yes 06/11/2019 documented as of this encounter Plan of Treatment Not on file documented as of this encounter Procedures Procedure Name Priority Date/Time Associated Diagnosis Comments DO NOT ORDER STANDALONE - BROAD COVID TEST Today 08/27/2019 12:15 EDT COVID-19 TESTING Routine 08/27/2019 12:1 5 EDT documented in this encounter Results * DO NOT ORDER STANDALONE - BROAD COVID TEST (08/27/2019 12:15 EDT) COVID-19 rt-PCR Result NEGATIVE Negative 08/28/2019 14:[address] [facility] Comment: 2019-novel Coronavirus (2019-nCoV) not detected [...] in accordance with CLIA regulations, [employer] [place] [employer] (CAP) guidelines (Jul 01, 2019), and FDA guidance (Jun 12, 2019). This test is only for use under the Food and Drug Administration's Emergency Use Authorization. Swab ENTIRE NASOPHARYNX / Unknown 08/27/2019 12:15 EDT 08/27/2019 20:35 EDT Provider Outr Resulting Lab MICROBIOLOGY - GENERAL ORDERABLES [facility] [place], [place] * COVID-19 TESTING (08/27/2019 12:15 EDT) COVID-19 rt-PCR Result NEGATIVE Negative 08/28/2019 17:34 EDT [facility] Comment: 2019-novel Coronavirus (2019-nCoV) not [...] in accordance with CLIA regulations, [employer] (CAP) guidelines (Jul 01, 2019), and FDA guidance (Jun 12, 2019). This test is only for use under the Food and Drug Administration's Emergency Use Authorization. Performing Lab [facility] 08/28/2019 17:34 EDT [facility] Swab ENTIRE NASOPHARYNX / Unknown 08/27/2019 12:15 EDT 08/27/2019 20:35 EDT Provider Outr Resulting Lab MICROBIOLOGY - GENERAL ORDERABLES [facility] [address] [place] [address] [facility] [place], [place] documented in this encounter Visit Diagnoses Not on filedocumented in this encounter Care Teams Welder 2Nd Shift Relationship Specialty Start Date End Date Mehul Valladares DO PCP - General 06/25/18 09/08/19 Grant Lindsey MD [facility] [place] [address] PCP - General 09/09/19 documented as of this encounter
--- OUTSIDE RECORDS SUMMARY | 2024-01-23 00:38 | XMS_ITS | Encounter Summary ---
Author Organization [facility] Address [address] [place] [address] Care Team Providers Care Accounting Generalist Name Role Phone Jacquelyn Mehul Brittney SMITH Primary Care Provider [phone] Encounter Details Date Type Department Care Team (Late st Contact Info) Description 09/07/2019 Orders Only [facility] Interventional Radiology Unit [address] [place] [address] Fe Kirkpatrick PA-C 111 [facility], [address] [place] [address] Social History Tobacco Use Types [...] on filedocumented in this encounter Care Teams Accounting Generalist Relationship Specialty Start Date End Date Mehul Valladares DO PCP - General 06/25/18 09/08/19 documented as of this encounter
--- OUTSIDE RECORDS SUMMARY | 2024-01-23 00:38 | XMS_ITS | Encounter Summary ---
Author Organization [facility] Address [address] [place] [address] Care Team Providers Care Child Development Director Name Role Phone Jacquelyn Mehul Brittney SMITH Primary Care Provider Reason for Visit * Reason Onset Date Comments Appointment Related 01/01/2019 Encounter Details Date Type Department Care Team (Late st Contact Info) Description 01/01/2019 Telephone [facility] Neurosurgery - [facility] [address], [place] [id number] Alfonzo Cobb MD [address] [facility], [address] [place] [address] Appointment Related Social History Tobacco [...] * Telephone Encounter - Dorcas Bolanos - 01/01/2019 1105 EDT Attempted to contact Kallie to confirm the following appointment details. Package Dye Stand Loader unable to LM, due to voicemail not being set up. NPV packet mailed. Date: 01/19/19 Arrival time: 2:15pm Appt time: 2:30pm Provider: Alfonzo Cobb MD Location: [facility] documented in this encounter Plan of Treatment Not on file documented as of this encounter Visit Diagnoses Not on filedocumented in this encounter Care Teams Child Development Director Relationship Specialty Start Date End Date Mehul Valladares DO PCP - General 06/25/18 09/08/19 documented as of this encounter
--- OUTSIDE RECORDS SUMMARY | 2024-01-23 00:38 | XMS_ITS | Encounter Summary ---
Author Organization [facility] Address [address] [place] [address] Care Team Providers Care Music Copyist Name Role Phone Grant Lindsey MD Primary Care Provider [phone] Encounter Details Date Type Department Care Team (Latest Contact Info) Description 11/02/2019 Travel Social History Tobacco Use Types Packs/Day [...] have Coronavirus / COVID-19? No / Unsure 11/02/2019 14:41 EDT documented as of this encounter Functional [...] No 11/02/2019 documented as of this encounter Plan of Treatment Not on file documented as of this encounter Visit Diagnoses Not on filedocumented in this encounter Care Teams Music Copyist Relationship Specialty Start Date End Date Grant Lindsey MD [address] [place] [address] PCP - General 09/09/19 documented as of this encounter
--- OUTSIDE RECORDS SUMMARY | 2024-01-23 00:38 | XMS_ITS | Encounter Summary ---
Author Organization [facility] Address [address] [place] [address] Care Team Providers Care Site Specialist Name Role Phone ChikisMehul underwood Brittney SMITH Primary Care Provider [phone] Reason for Visit * Reason Onset Date Comments Results 10/09/2018 Encounter Details Date Type Department Care Team (Late st Contact Info) Description 10/09/2018 Telephone [facility] Ophthalmology - [facility] [address] [place], [place] [id number] Rigoberto Dos Santos MD [address] [facility], [address] [place] [address] Results Social History Tobacco Use Types Packs/Day Years [...] Telephone Encounter - George Smith RN - 10/12/[address] Dos Santos spoke to patient * Telephone Encounter - George Smith RN - 10/09/[address] Dos Santoss desk for his review * Telephone Encounter - Abbey Rae - 10/09/2018 0949 EDT Pt calling to get results of CT scan from yesterday 10/08. documented in this encounter Plan of Treatment Not on file documented as of this encounter Visit Diagnoses Not on filedocumented in this encounter Care Teams Site Specialist Relationship Specialty Start Date End Date Mehul Valladares DO PCP - General 06/25/18 09/08/19 documented as of this encounter
--- OUTSIDE RECORDS SUMMARY | 2024-01-23 00:38 | XMS_ITS | Encounter Summary ---
Author Organization [facility] Address [address] [place] [address] Care Team Providers Care Hearse Driver Name Role Phone Jacquelyn Mehul Lugo DO Primary Care Provider [phone] Reason for Visit * Reason Onset Date Comments Appointment Related 05/10/2019 Aneurysm Encounter Details Date Type Department Care Team (Late st Contact Info) Description 05/10/2019 Telephone [facility] Neurosurgery - [facility] [address] [place], [place] [id number] Alfonzo Cobb MD [address] [facility], [address] [place] [address] Appointment Related (Aneurysm 05/11) Social History Tobacco Use Types Packs/Day Years [...] encounter Miscellaneous Notes * Telephone Encounter - Daniel Lam - 05/10/2019 0931 EST Left message for patient confirming appointment on 05/[address] Cobb at 1 PM. documented in this encounter Plan of Treatment Not on file documented as of this encounter Visit Diagnoses Not on filedocumented in this encounter Care Teams Hearse Driver Relationship Specialty Start Date End Date Mehul Valladares DO PCP - General 06/25/18 09/08/19 documented as of this encounter
--- OUTSIDE RECORDS SUMMARY | 2024-01-23 00:38 | XMS_ITS | Encounter Summary ---
Author Organization [facility] Address [address] [place] [address] Care Team Providers Care Loss Prevention Agent Name Role Phone Grant Lindsey MD Primary Care Provider [phone] Reason for Visit * Reason Onset Date Comments Headache 12/25/2019 Nausea 12/25/2019 Blurred Vision 12/25/2019 Dizziness 12/25/2019 Encounter Details Date Type Department Care Team (Late st Contact Info) Description 12/25/2019 Telephone [facility] NEUROSURGERY [address] [place], [place] [address] Leonard Nash MD [address] [place] [address] Headache; Nausea; Blurred Vision; Dizziness Social History Tobacco Use Types Packs/Day Years [...] Telephone Encounter - Leonard Nash MD - 12/25/2019 1004 EDT Received phone call from patient regarding right periorbital headache, R blurred vision, nausea, and dizziness. Patient states that she began to experience right periorbital headache extending to her right ear associated with blurry vision of her right eyes, dizziness, and nausea. She states that this episode began early this morning but does not know exact time. She states that she has experienced these symptoms before, but they have never lasted this long. Furthermore, she expresses that she is having some difficulty with ambulation, requiring support on nearby furniture. Recommended that patient should present immediately to her local ED for further evaluation and imaging, including CTA head/neck to assess aneurysm stability. LEONARD NASH MD 12/25/2019 10:05 documented in this encounter Plan of Treatment Not on file documented as of this encounter Visit Diagnoses Not on filedocumented in this encounter Care Teams Loss Prevention Agent Relationship Specialty Start Date End Date Grant Lindsey MD [address] [facility] [place] [address] PCP - General 09/09/19 documented as of this encounter
--- OUTSIDE RECORDS SUMMARY | 2024-01-23 00:38 | XMS_ITS | Encounter Summary ---
Author Organization [facility] Address [address] [place] [address] Care Team Providers Care Log Pond Worker Name Role Phone Grant Lindsey MD Primary Care Provider [phone] Encounter Details Date Type Department Care Team (Latest Contact Info) Description 09/09/2019 Travel Social History Tobacco Use Types Packs/Day [...] on filedocumented in this encounter Care Teams Log Pond Worker Relationship Specialty Start Date End Date Grant Lindsey MD [address] [place] [address] PCP - General 09/09/19 documented as of this encounter
--- OUTSIDE RECORDS SUMMARY | 2024-01-23 00:38 | XMS_ITS | Encounter Summary ---
Author Organization [facility] Address [address] [place] [address] Care Team Providers Care Short Range Air Defense Artillery Name Role Phone Jacquelyn Mehul Brittney SMITH Primary Care Provider [phone] Reason for Visit * Reason Onset Date Comments Appointment Related 02/04/2019 TODAY - ride Encounter Details Date Type Department Care Team (Late st Contact Info) Description 02/04/2019 Telephone [facility] Neurosurgery - [facility] [address] [place], [place] [phone] Alfonzo Cobb MD [address] [facility], [address] [place] [address] Appointment Related (TODAY - ride) Social History Tobacco Use Types Packs/Day Years [...] encounter Miscellaneous Notes * Telephone Encounter - Julianna Rivera - 02/04/2019 0949 EDT Patient states cannot get through to Medicaid about ride; please call as soon as possible to advise documented in this encounter Plan of Treatment Not on file documented as of this encounter Visit Diagnoses Not on filedocumented in this encounter Care Teams Short Range Air Defense Artillery Relationship Specialty Start Date End Date Mehul Valladares DO PCP - General 06/25/18 09/08/19 documented as of this encounter
--- OUTSIDE RECORDS SUMMARY | 2024-01-23 00:38 | XMS_ITS | Encounter Summary ---
Author Organization [facility] Address [address] [place] [address] Care Team Providers Care Needle Valve Operator Name Role Phone Grant Lindsey MD Primary Care Provider [phone] Encounter Details Date Type Department Care Team (Latest Contact Info) Description 09/14/2019 Travel Social History Tobacco Use Types Packs/Day [...] have Coronavirus / COVID-19? No / Unsure 09/14/2019 6:54 EDT documented as of this encounter Functional [...] on filedocumented in this encounter Care Teams Needle Valve Operator Relationship Specialty Start Date End Date Grant Lindsey MD [address] [place] [address] PCP - General 09/09/19 documented as of this encounter
--- OUTSIDE RECORDS SUMMARY | 2024-01-23 00:38 | XMS_ITS | Encounter Summary ---
Author Organization [facility] Address [address] [place] [address] Care Team Providers Care Biology Lecturer Name Role Phone Grant Lindsey MD Primary Care Provider [phone] Reason for Visit * Reason Comments Follow-up Encounter Details Date Type Department Care Team (Late st Contact Info) Description 09/14/2019 11:10 EDT Office Visit [facility] Neurosurgery - [facility] [address] [place], [place] [phone] Alfonzo Cobb MD [address] [facility], [address] [place] [address] Cerebral aneurysm, nonruptured (Primary Dx) Social [...] Yes 06/11/2019 documented as of this encounter Progress Notes * Alfonzo Cobb MD - 09/14/2019 1110 EDT This office note has been dictated. * Alfonzo Cobb MD - 09/14/2019 0000 EDT [facility] NEUROLOGICAL SURGERY PROGRESS / FOLLOWUP NOTE - 09/14/2019 [place] [address] Lindsey: Kallie Darling underwent a cerebral angiogram this morning at [facility], done by Dr Jed Griffin. This was done at my request as I wanted to have a better look at the cerebral aneurysm. The angiogram does show a right MCA aneurysm. I talked to Kallie in the post-angio recovery room. I told her that the aneurysm was present, that it does look a little more dangerous than expected as it does have several tetes on it that are seen on the angiogram. I would like to see her back in my office in 3 to 4 weeks to review the angiogram with her and discuss further management. Dr Jed Griffin feels that endovascular treatment is not possible because of the wide neck of the aneurysm, as well as there is a vessel coming out of the side of the neck of the aneurysm and therefore this leads to just a surgical clipping for treatment of the aneurysm. I will explain all this to Kallie when she returns to see me in my office in 3 to 4 weeks. I will keep you informed. Yours sincerely, Alfonzo Cobb MD 12 59 PM - Alfonzo Cobb MD rn Dictation ID: [id number] cc: Grant Lindsey MD, [address] [address] documented in this encounter Plan of Treatment Not on file documented as of this encounter Visit Diagnoses Diagnosis Cerebral aneurysm, nonruptured- Primary documented in this encounter Care Teams Biology Lecturer Relationship Specialty Start Date End Date Grant Lindsey MD [address] [place], [place] [address] [address] PCP - General 09/09/19 documented as of this encounter
--- OUTSIDE RECORDS SUMMARY | 2024-01-23 00:38 | XMS_ITS | Encounter Summary ---
Author Organization [facility] Address [address] [place] [address] Care Team Providers Care Tax Representative Name Role Phone Grant Lindsey MD Primary Care Provider [phone] Reason for Visit * (Routine) - Receiving Office to Obtain Authorization Specialty Diagnoses / Procedures Referred By Contmisael sparks Referred To Contact Procedures CT OUTSIDE IMAGES NEURO Unknown, Provider, Referral ID Status Reason Start Date Expiration Date Visits Requested Visits Authorized [id number] Receiving Office to Obtain Authorization 12/25/2019 1 1 Encounter Details Date Type Department Care Team (Latest Contact Info) Description 12/25/2019 11:44 EDT - 12/25/2019 15:04 EDT Hospital Encounter [facility] Secondary Reads [place] Discharge Disposition: Home or [...] Coronavirus / COVID-19? No / Unsure 12/25/2019 11:38 EDT documented as of this encounter Functional [...] Take 50 mg by mouth daily. 12/04/2019 clopidogrel (PLAVIX) 75 mg tablet Take 75 mg by mouth daily. 12/26/2019 dexAMETHasone (DECADRON) 4 mg tablet Take 0.5 Tabs by mouth 2 times daily for 3 days. 3 Tab 12/26/2019 12/29/2019 famotidine (PEPCID) 20 mg tablet Take 20 mg by mouth 2 times daily. 01/05/2020 levETIRAcetam (KEPPRA) 500 mg tablet Take 1 Tab by mouth every 12 hours for 7 days. 14 Tab 01/07/2020 01/14/2020 documented as of this encounter Discharge Disposition Disposition Code Departure Means Destination Home or Self Care documented in this encounter Plan of Treatment Not on file documented as of this encounter Procedures Procedure Name Priority Date/Time Associated Diagnosis Comments CT OUTSIDE IMAGES NEURO Routine 12/25/2019 11:44 EDT documented in this encounter Results * CT OUTSIDE IMAGES NEURO (12/25/2019 11:44 EDT) Narrative 12/25/2019 11:44 EDT This is a non-reportable exam. Provider Unknown MD [facility] OTHER IMAGING OR DERABLES documented in this encounter Visit Diagnoses Not on filedocumented in this encounter Care Teams Tax Representative Relationship Specialty Start Date End Date Grant Lindsey MD [address] [place] [address] PCP - General 09/09/19 documented as of this encounter
--- OUTSIDE RECORDS SUMMARY | 2024-01-23 00:38 | XMS_ITS | Encounter Summary ---
Author Organization [facility] Address [address] [place] [address] Care Team Providers Care Furnace Repairer Helper Name Role Phone Mehul Valladares DO Primary Care Provider [phone] Encounter Details Date Type Department Care Team (Late st Contact Info) Description 10/01/2018 Orders Only [facility] Ophthalmology - [facility] [place] [address] [place], [place] [phone] Rigoberto Dos Santos MD [address] [facility], [address] [place] [address] Aneurysm (HCC-CMS) (Primary Dx) Social History Tobacco Use Types [...] as of this encounter Visit Diagnoses Diagnosis Aneurysm (HCC-CMS)- Primary Aneurysm of unspecified site documented in this encounter Care Teams Furnace Repairer Helper Relationship Specialty Start Date End Date Mehul Valladares DO PCP - General 06/25/18 09/08/19 documented as of this encounter
--- OUTSIDE RECORDS SUMMARY | 2024-01-23 00:38 | XMS_ITS | Encounter Summary ---
Author Organization [facility] Address [address] [place] [address] Care Team Providers Care Mixing Machine Tender Cork Gasket Name Role Phone Jacquelyn Mehul Brittney SMITH Primary Care Provider Encounter Details Date Type Department Care Team (Late st Contact Info) Description 09/03/2019 Orders Only [facility] Interventional Radiology Unit [address] [place] [address] Fe Kirkpatrick PA-C [address] [facility], [address] [place] [address] Social History Tobacco Use Types [...] on filedocumented in this encounter Care Teams Mixing Machine Tender Cork Gasket Relationship Specialty Start Date End Date Mehul Valladares DO PCP - General 06/25/18 09/08/19 documented as of this encounter
--- OUTSIDE RECORDS SUMMARY | 2024-01-23 00:38 | XMS_ITS | Encounter Summary ---
Author Organization [facility] Address [address] [place] [address] Care Team Providers Care Dairy Associate Name Role Phone ChikisMehul underwood Brittney SMITH Primary Care Provider [phone] Reason for Visit * Reason Onset Date Comments Paperwork request 01/14/2019 rct Encounter Details Date Type Department Care Team (Late st Contact Info) Description 01/14/2019 Telephone [facility] Neurosurgery - [facility] [address] [place], [place] [id number] Alfonzo Cobb MD [address] [facility], [address] [place] [address] Paperwork request (rct) Social History Tobacco Use Types Packs/Day Years [...] * Telephone Encounter - Gricelda Short - 01/18/2019 1206 EDT Spoke with Kallie and rescheduled appointment to 02/04/19 at 11:45am. Faxed paperwork as requested. * Telephone Encounter - Marjan Griffin - 01/15/2019 1647 EDT Form needed for transportation is found under scans. Advised Rubi that MDs signature is needed on the form and Dr. Cobb will not be available to do so until Friday (01/19) which is the day of herappointment. [employer] requires 48 hours notice for transportation requests. She asks that appointment be rescheduled. * Telephone Encounter - Gricelda Short - 01/15/2019 1356 EDT Left message for patient to call back. * Telephone Encounter - Sushma Hylton - 01/14/2019 0917 EDT [employer] ( transportation company) Please fax a paper to Medicaid And they will fill it out and will send it to [employer] For transport to our office/for her appt on Jan 19 You can get the form From (Dr Dos Santos's office) per patient Please call patient with any questions documented in this encounter Plan of Treatment Not on file documented as of this encounter Visit Diagnoses Not on filedocumented in this encounter Care Teams Dairy Associate Relationship Specialty Start Date End Date Mehul Valladares DO PCP - General 06/25/18 09/08/19 documented as of this encounter
--- OUTSIDE RECORDS SUMMARY | 2024-01-23 00:38 | XMS_ITS | Encounter Summary ---
Author Organization [facility] Address [address] [place] [address] Care Team Providers Care Manager Manufacturing Name Role Phone Jacquelyn Mehul Brittney SMITH Primary Care Provider Encounter Details Date Type Department Care Team (Late st Contact Info) Description 06/14/2019 Orders Only [facility] Interventional Radiology Unit [address] [place] [address] Fe Kirkpatrick PA-C [address] [facility], [address] [place] [address] Social History Tobacco Use Types [...] filedocumented in this encounter Care Teams Manager Manufacturing Relationship Specialty Start Date End Date Mehul Valladares DO PCP - General 06/25/18 09/08/19 documented as of this encounter
--- OUTSIDE RECORDS SUMMARY | 2024-01-23 00:38 | XMS_ITS | Encounter Summary ---
Author Organization [facility] Address [address] [place] [address] Care Team Providers Care Patch Sander Name Role Phone Jacquelyn Mehul Brittney SMITH Primary Care Provider Reason for Referral * Consult (Routine) - Specialty Report Received Specialty Diagnoses / Procedures Referred By Nicol sparks Referred To Contact Neurosurgery Diagnoses Aneurysm of middle cerebral artery Rigoberto Dos Santos MD [address] [place] [phone] Alfonzo Cobb MD [address] [place] [phone] Referral ID Status Reason Start Date Expiration Date Visits Requested Visits Authorized [id number] Specialty Report Received Specialty Services Required 12/25/2018 1 1 Question Answer Reason for Request: 4.5 mm R MCA bifurcation aneurysm * (Routine) - New Request Specialty Diagnoses / Procedures Referred By Nicol sparks Referred To Contact Diagnoses Visual field defects Aneurysm of middle cerebral artery Eye pain, bilateral Blurred vision, bilateral Amblyopia of eye, left Procedures OCT (OPHTHALMIC DIGITAL IMAGING, POSTERIOR SEGMENT) Rigoberto Dos Santos MD [address] [place] [phone] Referral ID Status Reason Start Date Expiration Date V isits Requested Visits Authorized [id number] New Request 12/25/2018 1 1 * (Routine) - New Request Specialty Diagnoses / Procedures Referred By Contac t Referred To Contact Diagnoses Visual field defects Aneurysm of middle cerebral artery Eye pain, bilateral Blurred vision, bilateral Amblyopia of eye, left Procedures VISUAL FIELD EXAM, EXTENDED Rigoberto Dos Santos MD [address] [place] [phone] Referral ID Status Reason Start Date Expiration Date V isits Requested Visits Authorized [id number] New Request 12/25/2018 1 1 Reason for Visit * Reason Comments Diabetes Diabetes under contr ol. BS and A1C good per patient Eye Problem Pt called c/o pressu re behind eyes and blurry vision at distance.?Can see colors at distance but nothing is clear. Eyes throb, has to strain to see.?Using magnifying glass not as helpful. Throbbing of eyes turns into headache with nausea. Dry Eye Has stinging both ey es.?Uses AT's but says does not relieve stinging. When driving occasional flashing requiring pt to bone char puller. Tearing with eye strain. Diplopia Has horizontal doubl e vision when driving. Stops often due to double images. Encounter Details Date Type Department Care Team (Late st Contact Info) Description 12/25/2018 13:00 EDT Office Visit [facility] Ophthalmology - [address] [address] Rigoberto Dos Santos MD [address] [place] [phone] Social History Tobacco Use Types Packs/Day Years [...] - Inhaled Oxygen Concentration - - Weight 98.9 kg (218 lb) 12/25/2018 1326 EDT Height 165.1 cm (5' 5) 12/25/2018 1326 EDT Body Mass Index 36.28 12/25/2018 1326 EDT documented in this encounter Progress Notes * Rigoberto Dos Santos MD - 12/25/2018 1300 EDT This office note has been dictated. I spent 45 minutes in [id number] conversation and discussion,with more than 50% of that time used for counseling and coordination of care. * Rigoberto Dos Santos MD - 12/25/2018 0000 EDT [facility] NEURO-OPHTHALMOLOGY PROGRESS / FOLLOWUP NOTE - 12/25/2018 Ms Darling returned for followup neuro-ophthalmic evaluation because of a history of blurred vision and headaches. To your recall, this is a 58-year-old woman who was initially evaluated by me in June 2018, at therequest of her order dispatcher chief due to unexplained visual difficulties. The patient has had the benefit of consultation with neurophthalmology at [facility] on at least two prior occasions due to very similar symptoms. The patient was determined to have unreliable visual yoon and otherwise normal neuro-ophthalmic examination, but for baseline amblyopia in the left eye. However, as a consequence of the patient's evaluation she has had neuroimaging in part due to recurrent symptoms and unreliable testing as well as ptosis. While no etiology for these symptoms was demonstrated, a small right MCA aneurysm was found and this was confirmed with CT angiography. Referral was made to neurosurgery; however, the patient has not yet been seen. She is seen today to discuss this result and ensureadequate evaluation of this incidental finding has been made. In addition, at the time of her last evaluation by me it was recommended that she be seen in neurology for headache care as the patient has persistent headaches. In the interval since the patient was last examined, she reports ongoing blurry vision, and difficulties with blurry vision. She does not have an updated refraction; in fact, she broke her glasses and has not had them replaced. She reports that her diabetes is under control. She continues to have significant headaches and blames these on eye strain, although on both my assessment and Dr Greenwood at [facility], both I and Dr Greenwood at [facility] had suspected that this is at least in part a primary headache phenomena. The patient has intermittent double vision, which is difficult to pin down based on her history, but suggestive of monocular as it does not seem to resolve if she closes one or the other eye and at baseline, she is amblyopic in the left eye. The ocular history, medical history, surgical history, social and family history, allergies are allunchanged except as noted above and documented in the electronic health record. The neuro-ophthalmic examination found the patient to be fairly resistant, but otherwise cooperative to testing. Visual acuities with correction were 20/400 in the right eye with pinhole improvement to 20/150 and further refractive refinement to 20/70+2. With encouragement, she is able to do bettergetting some letters on near card in the 20/40 range; 22/50- in the left eye with further refractive refinement to 20/50+. Color vision (Ishihara) funduscopy showed 9/11 correct pseudoisochromatic plates in the right eye, 4/11 correct pseudoisochromatic plates with the left eye; however, when pressed, the patient was able to do better, opting to get within one inch of the plate to identify these,again demonstrating difficulty in behavior pattern suggesting a nonphysiologic deficiency. Amsler grid testing showed no metamorphopsia in the right eye and doubling of the lines in the left, which resolved with pinhole. The pupils were equal in size and showed sluggish response to light and near wi thout afferent pupillary defect. External examination of the eyes and orbits revealed dermatochalasia with brow ptosis with no clear lid lag or twitch. Examination of extraocular motility showed no strabismus with choppy pursuit and normal saccades motor impersistence. There was no nystagmus. Applanation tonometry at 1503 hours was 16 mmHg in the right eye, 16 mmHg in the left eye. Slit lamp examination revealed blepharitis, early breakup and pooling of the tear film with 2+ nuclear sclerotic and 1+ cortical cataracts bilaterally. Automated yoon were performed unreliably, both eyes demonstrating a clover like pattern of constriction in the left more so than the right eye, similar to what was initially seen in the past. Confrontation of visual yoon were limited but again in the nonphysiologic pattern. Undilated stereoscopic (indirect) funduscopy revealed normal optic nerves, vessels and macula. The cup-to-disc ratio is 0.3 in each eye. Spectral domain OCT nerve fiber layer analysis showed no thinning or edema at the disks or macula with average fiber layer thickness of 94 microns on the right and 93 on the left. FORMULATION: This is a 58-year-old woman seen for neuro-ophthalmic evaluation because of a history of visual difficulties and headache. The patient's examination again shows nonphysiologic features of constricted visual yoon and dyschromatopsia as well as subnormal best corrected visual acuity. Ihave not recommended any further diagnostics and I have recommended the patient obtain an updated refraction through her order dispatcher chief. Specifically, as it relates to the incidental finding of the small aneurysm and recommendation again made referral to neurosurgery and communicate specifically with them need for the same. I have not scheduled followup neuro-ophthalmic evaluation at this time but would be happy to see the patient back at any point that I can be of further assistance. Rigoberto Dos Santos MD Diplomate, the [place] [employer] regulator assembler Department of Ophthalmology NEURO-OPHTHALMOLOGY cc: Alfonzo Cobb MD, [facility] - Neurosurgery [address] [place] [address], [address] [place] [address], [address] [place] [address] documented in this encounter Plan of Treatment Scheduled Orders Name Type Priority Associated Diagnoses Orde r Schedule VISUAL FIELD EXAM, EXTENDED Ophthalmology Routine Visual field defects Aneurysm of middle cerebral artery Eye pain, bilateral Blurred vision, bilateral Amblyopia of eye, left Ordered: 12/25/2018 OCT (OPHTHALMIC DIGITAL IMAGING, POSTERIOR SEGMENT) Ophthalmology Routine Visual field defects Aneurysm of middle cerebral artery Eye pain, bilateral Blurred vision, bilateral Amblyopia of eye, left Ordered: 12/25/2018 Scheduled Referrals Name Type Priority Associated Diagnoses Order Schedule AMB CONS/FOLLOW UP NEUROSURGERY Outpatient Referral Routine Aneurysm of middle cerebral artery Ordered: 12/25/2018 documented as of this encounter Visit Diagnoses Diagnosis Visual field defects- Primary Visual field defect, unspecified Aneurysm of middle cerebral artery Cerebral aneurysm, nonruptured Eye pain, bilateral Blurred vision, bilateral Other specified visual disturbances Amblyopia of eye, left documented in this encounter Historical Medications * This list may reflect changes made after this encounter. Medication Sig Dispensed Refills Start Date End Date ALBUTEROL INHL Inhale 1 Puff as directed as needed. fluticasone propion/salmeterol (ADVAIR DISKUS INHALATION) Inhale 2 Puffs as directed 2 times daily. added in this encounter Eye Exam Visual Acuity (Snellen - Linear) Right eye Left eye Dist cc 20/400 20/250 -1 Dist ph cc 20/150 NI Near cc J16 J16 Correction: Glasses Tonometry (Applanation, 15:03) Right eye Left eye Pressure 16 16 Pupils Dark Light Shape React APD Right eye 5 4 Round Brisk None Left eye 5 Round Minimal None Visual Yoon Right eye Left eye Restrictions Partial outer superi or temporal, inferior temporal, superior nasal, inferior nasal deficiencies Partial outer superior temporal, inferior temporal, superior nasal, inferior nasal deficiencies Extraocular Movement Right eye Left eye Full, Ortho Full, Ortho Neuro/Psych Oriented x3: Yes Mood/Affect: Normal Amsler Right eye Left eye Normal double lines Color Right eye Left eye Stanislavihara 12/23 07/23 Pt had to be only inches from color vision book Stereo Fly: - Circles: 04/22 Lan sec Slit Lamp Exam Right eye Left eye Lids/Lashes Dermatochalasis - upper lid Derm atochalasis - upper lid Conjunctiva/Sclera dilated vessel, Pinguecula di lated vessel Cornea Clear Clear Anterior Chamber moderate, no cell/flare moderat e, no cell/flare Iris Round and reactive, no rubeosis Round and reactive, no rubeosis Wearing Rx Sphere Cylinder [place] Add Right eye -0.50 +0.25 141 +2.25 Left eye -0.75 +0.50 032 +2.25 Type: Bifocal Manifest Refraction (Auto) Sphere Cylinder Seaside Dist VA Right eye -1.00 +0.50 135 20/70+2 Left eye -1.00 +0.50 035 20/50+1 Care Teams Patch Sander Relationship Specialty Start Date End Date Mehul Valladares DO PCP - General 06/25/18 09/08/19 documented as of this encounter
--- OUTSIDE RECORDS SUMMARY | 2024-01-23 00:38 | XMS_ITS | Encounter Summary ---
Author Organization [facility] Address [address] [place] [address] Care Team Providers Care Milieu Manager Name Role Phone Jacquelyn Mehul Lugo DO Primary Care Provider [phone] Reason for Visit * Reason Onset Date Comments Appointment Related 05/10/2019 Encounter Details Date Type Department Care Team (Late st Contact Info) Description 05/10/2019 Telephone [facility] Neurosurgery - [facility] [address] [place], [place] [phone] Alfonzo Cobb MD [address] [facility], [address] [place] [address] Appointment Related Social History Tobacco [...] * Telephone Encounter - Gricelda Short - 05/10/2019 0934 EST Called patient to let her know that Dr. Cobb has been called to the OR tomorrow, so her appointment with him will need to be rescheduled. Patient states that works for her, because she was not able to get a ride to the appointment anyway. Let patient know that the appointment is now on 05/13/19 at 3:15pm and we will send the necessary form to [facility] for Medicaid Transportation. documented in this encounter Plan of Treatment Not on file documented as of this encounter Visit Diagnoses Not on filedocumented in this encounter Care Teams Milieu Manager Relationship Specialty Start Date End Date Mehul Valladares DO PCP - General 06/25/18 09/08/19 documented as of this encounter
--- OUTSIDE RECORDS SUMMARY | 2024-01-23 00:38 | XMS_ITS | Encounter Summary ---
Author Organization [facility] Address [address] [place] [address] Care Team Providers Care Registered Associate Name Role Phone Renettabrittney Mehul Brittney SMITH Primary Care Provider [phone] Reason for Visit * Reason Onset Date Comments Appointment Related 04/21/2019 Encounter Details Date Type Department Care Team (Late st Contact Info) Description 04/21/2019 Telephone [facility] Neurosurgery - [facility] [address] [place], [place] [phone] Alfonzo Cobb MD [address] [facility], [address] [place] [address] Appointment Related Social History Tobacco [...] encounter Miscellaneous Notes * Telephone Encounter - Juliet Zabala - 04/21/2019 0911 EST Patient called to confirm the time for her appointment with Dr. Cobb. I gave her the following details: Date: 05/11/19 Time: 1:00pm Patient stated that she hasn't heard from Medicaid regarding a ride to the appointment. I advised her to call Dr. Dos Santos's office and arrange the ride through them. She stated that she would call but was anxious about not getting a ride. documented in this encounter Plan of Treatment Not on file documented as of this encounter Visit Diagnoses Not on filedocumented in this encounter Care Teams Registered Associate Relationship Specialty Start Date End Date Mehul Valladares DO PCP - General 06/25/18 09/08/19 documented as of this encounter
--- OUTSIDE RECORDS SUMMARY | 2024-01-23 00:38 | XMS_ITS | Encounter Summary ---
Author Organization [facility] Address [address] [place] [address] Care Team Providers Care International Recruiter Name Role Phone Mehul Valladares DO Primary Care Provider [phone] Reason for Referral * Radiology Services (Routine) - Closed Specialty Diagnoses / Procedures Referred By Nicol sparks Referred To Contact Diagnoses Cerebral aneurysm, nonruptured Procedures IR CAROTID CEREBRAL BILATERAL Alfonzo Cobb MD [address] [place] [phone] Referral ID Status Reason Start Date Expiration Date Visits Re quested Visits Authorized [id number] Closed 09/02/2019 1 1 Encounter Details Date Type Department Care Team (Late st Contact Info) Description 09/02/2019 Orders Only [facility] Neurosurgery - [facility] [address] [place] [address] Alfonzo Cobb MD [address] [place] [phone] Cerebral aneurysm, nonruptured (Primary Dx) Social [...] on file documented as of this encounter Results * IR CAROTID CEREBRAL BILATERAL (09/14/2019 10:05 EDT) Anatomical Region Laterality Modality Head Bilateral X-Ray Angiograph y 09/16/2019 16:2 0 EDT Impressions 09/16/2019 16:20 EDT 5 mm irregular aneurysm of the right middle cerebral artery bifurcation. 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 Jed Griffin Audio Visual Manager: Dr. Hernando Sheppard Anesthesia: Local with sedation Interventional procedure: None Catheterization of the following vessels: 1. Right common carotid artery 2. Right internal carotid artery Angiographic interpretation of the following images: 1. Right cervical carotid artery angiograms 2. Right cerebral carotid artery angiograms 3. Rotational right internal carotid artery angiogram Hemostasis: Mynx closure device Indications: The patient is a 59-year-old female with headaches. Imaging reveals an irregular aneurysm at the right middle cerebral artery bifurcation. Diagnostic angiogram is requested for therapeutic planning. Procedure in detail and findings: The risks and benefits of the procedure were explained to the patient and informed consent was obtained and signed. Prior to the procedure, a timeout was completed verifying correct patient, date of , procedure, site, positioning and special equipment as applicable. The patient was brought to the neurointerventional suite and placed in the supine position upon the angiography table. Both groins and the right wrist were prepped and draped in sterile fashion. Lidocaine 1% was used for local anesthesia. A 19-gauge singlewall puncture needle was used to access the right common femoral artery. The needle was exchanged over an introducer wire for a 5 Argentine sheath. Heparinized saline infusion was administered through the sheath and the catheter used during this procedure. A 5 Argentine Terumo angled glide catheter was advanced over a Glidewire into the right common carotid artery. Right common carotid artery cervical angiogram was performed in frontal and lateral projections. The angiogram shows no significant stenosis at the origin of the internal carotid artery. The external carotid branches are normal in their cervical course. The catheter was advanced under fluoroscopic guidance into the right internal carotid artery and an angiogram was performed in frontal and lateral projections. Right internal carotid artery cerebral angiogram shows satisfactory opacification of the internal carotid artery as well as the anterior and middle cerebral arteries. Ill-defined aneurysm is noted at the middle cerebral artery bifurcation. The catheter was attached to automatic injector and rotational angiogram was performed. Data from this angiogram were sent to the workstation for analysis. The aneurysm measures approximately 5 mm in greatest dimension. There is a vessel arising from the neck of the aneurysm. The aneurysm has an irregular contour. The catheter was removed. After thorough review of the images, the sheath was removed and a Mynx closure device was used to achieve hemostasis. Dr. Jed Griffin was present during the entire procedure and the interpretation of images. 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 Jed Griffin Audio Visual Manager: Dr. Hernando Sheppard Anesthesia: Local with sedation Interventional procedure: None Catheterization of the following vessels: 1. Right common carotid artery 2. Right internal carotid artery Angiographic interpretation of the following images: 1. Right cervical carotid artery angiograms 2. Right cerebral carotid artery angiograms 3. Rotational right internal carotid artery angiogram Hemostasis: Mynx closure device Indications: The patient is a 59-year-old female with headaches. Imagingreveals an irregular aneurysm at the right middle cerebral arterybifurcation. Diagnostic angiogram is requested for therapeutic planning. Procedure in detail and findings: The risks and benefits of the procedurewere explained to the patient and informed consent was obtained andsigned. Prior to the procedure, a timeout was completed verifying correctpatient, date of , procedure, site, positioning and special equipmentas applicable. The patient was brought to the neurointerventional suiteand placed in the supine position upon the angiography table. Both groinsand the right wrist were prepped and draped in sterile fashion. Lidocaine 1% was used for local anesthesia. A 19-gauge singlewallpuncture needle was used to access the right common femoral artery. Theneedle was exchanged over an introducer wire for a 5 Argentine sheath.Heparinized saline infusion was administered through the sheath and thecatheter used during this procedure. A 5 [place] Terumo angled glide catheter was advanced over a Glidewire intothe right common carotid artery. Right common carotid artery cervicalangiogram was performed in frontal and lateral projections. The angiogramshows no significant stenosis at the origin of the internal carotidartery. The external carotid branches are normal in their cervicalcourse. The catheter was advanced under fluoroscopic guidance into the rightinternal carotid artery and an angiogram was performed in frontal andlateral projections. Right internal carotid artery cerebral angiogramshows satisfactory opacification of the internal carotid artery as well asthe anterior and middle cerebral arteries. Ill-defined aneurysm is notedat the middle cerebral artery bifurcation. The catheter was attached to automatic injector and rotational angiogramwas performed. Data from this angiogram were sent to the workstation foranalysis. The aneurysm measures approximately 5 mm in greatest dimension. There is avessel arising from the neck of the aneurysm. The aneurysm has anirregular contour. The catheter was removed. After thorough review of the images, the sheathwas removed and a Mynx closure device was used to achieve hemostasis. Dr. Jed Griffin was present during the entire procedure and theinterpretation of images. IMPRESSION 5 mm irregular aneurysm of the right middle cerebral artery bifurcation. Alfonzo Cobb MD IMG IR ORDERABLES documented in this encounter Visit Diagnoses Diagnosis Cerebral aneurysm, nonruptured- Primary Cerebral aneurysm, nonruptured documented in this encounter Care Teams International Recruiter Relationship Specialty Start Date End Date Mehul Valladares DO PCP - General 06/25/18 09/08/19 documented as of this encounter
--- OUTSIDE RECORDS SUMMARY | 2024-01-23 00:38 | XMS_ITS | Encounter Summary ---
Author Organization [facility] Address [address] [place] [address] Care Team Providers Care Linderman Operator Name Role Phone Grant Lindsey MD Primary Care Provider [phone] Reason for Visit * Reason Onset Date Comments Appointment Related 10/13/2019 Encounter Details Date Type Department Care Team (Late st Contact Info) Description 10/13/2019 Telephone [facility] Neurosurgery - [facility] [address] [place], [place] [phone] Alfonzo Cobb MD [address] [facility], [address] [place] [address] Appointment Related Social History Tobacco [...] * Telephone Encounter - Gricelda Short - 10/13/2019 1502 EDT Spoke with patient and confirmed appointment details below. Informed patient that we will fax the Medicaid transportation request form to the [facility]. Location: [facility] Provider: Dr. Cobb Date: 11/02/19 Time: 2:40pm documented in this encounter Plan of Treatment Not on file documented as of this encounter Visit Diagnoses Not on filedocumented in this encounter Care Teams Linderman Operator Relationship Specialty Start Date End Date Grant Lindsey MD [facility] [place] [address] PCP - General 09/09/19 documented as of this encounter
--- OUTSIDE RECORDS SUMMARY | 2024-01-23 00:38 | XMS_ITS | Encounter Summary ---
Author Organization [facility] Address [address] [place] [address] Care Team Providers Care Sustainability Manager Name Role Phone Grant Lindsey MD Primary Care Provider [phone] Reason for Visit * Reason Onset Date Comments COVID-19 12/20/2019 Encounter Details Date Type Department Care Team (Late st Contact Info) Description 12/20/2019 Telephone [facility] Neurosurgery - [facility] [address], [place] [id number] Alfonzo Cobb MD [address] [facility], [address] [place] [address] COVID-19 Social History Tobacco Use Types Packs/Day Years Used Date Smoking Tobacco: Every Day Cigarettes 0.5 45 Smokeless Tobacco: Never Alcohol Use Standard Drinks/Week Comments No 0 (1 standard drink = 0.6 oz pur e alcohol) AUDIT-C Answer Date Recorded Q1: How often [...] No 11/02/2019 documented as of this encounter Miscellaneous Notes * Telephone Encounter - Amelia Loredo - 12/20/2019 1416 EDT Reason for Call: COVID-19 Summary/Symptoms: 1st call : lmom for patient to call [facility] if she has not heard from them this week Provided the number [phone] Faxed order and demographics to [phone] Amelia Loredo 12/20/2019 14:16 documented in this encounter Plan of Treatment Not on file documented as of this encounter Visit Diagnoses Not on filedocumented in this encounter Care Teams Sustainability Manager Relationship Specialty Start Date End Date Grant Lindsey [place] [place] [address] PCP - General 09/09/19 documented as of this encounter
--- OUTSIDE RECORDS SUMMARY | 2024-01-23 00:38 | XMS_ITS | Encounter Summary ---
Author Organization [facility] Address [address] [place] [address] Care Team Providers Care Distribution Center Administrator Name Role Phone Grant Lindsey MD Primary Care Provider [phone] Reason for Visit * Reason Onset Date Comments Other 09/15/2019 record release Encounter Details Date Type Department Care Team (Late st Contact Info) Description 09/15/2019 Telephone [facility] Neurosurgery - [facility] [address] [place], [place] [id number] Alfonzo Cobb MD [address] [facility], [address] [place] [address] Other (record release) Social History Tobacco Use Types Packs/Day Years [...] encounter Miscellaneous Notes * Telephone Encounter - Deja Gricelda - 09/15/2019 1429 EDT Patient's sister, Estefani, called to check whether patient's chart states we have permission to speak with her about patient's care. Informed her that we do not. Estefani asked that a record release be faxed to her at [phone]. Estefani will have the patient sign the form and then will fax it to Medical Records documented in this encounter Plan of Treatment Not on file documented as of this encounter Visit Diagnoses Not on filedocumented in this encounter Care Teams Distribution Center Administrator Relationship Specialty Start Date End Date Grant Lindsey MD [address] [place] [address] PCP - General 09/09/19 documented as of this encounter
--- OUTSIDE RECORDS SUMMARY | 2024-01-23 00:38 | XMS_ITS | Encounter Summary ---
Author Organization [facility] Address [address] [place] [address] Care Team Providers Care Curing Bin Operator Name Role Phone Grant Lindsey MD Primary Care Provider [phone] Encounter Details Date Type Department Care Team (Late st Contact Info) Description 09/21/2019 Lab Requisition [facility] Pathology & Laboratory Medicine - [facility] [address] [place], [place] [address] Outr Resulting Lab, Provider Social History Tobacco [...] No 06/11/2019 Cognitive Status Response Date of Assess ent Because of a physical, menta l, or emotional condition, does this person have serious difficulty concentrating, remembering, or making decisions? Yes 06/11/2019 documented as of this encounter Plan of Treatment Not on file documented as of this encounter Procedures Procedure Name Priority Date/Time Associated Diagnosis Comments ZZCOVID-19 TEST [facility] PCR Today 09/21/2019 9:14 EDT COVID-19 TESTING Routine 09/21/2019 9:14 EDT documented in this encounter Results * COVID-19 TEST [facility] PCR (09/21/2019 9:14 EDT) Swab ENTIRE NASOPHARYNX / Unknown 09/21/2019 9:14 EDT 09/21/2019 16:10 EDT Provider Outr Resulting Lab MICROBIOLOGY - GENERAL ORDERABLES Performing Organization Address City/State/[facility] Co de Phone Number [facility] [address] [place] [phone] * COVID-19 TESTING (09/21/2019 9:14 EDT) COVID-19 rt-PCR Result Negative Negative 09/22/2019 11:[address] [facility] Comment: This test has [...] history, and epidemiological information. Performed on the Hologic [place] Fusion instrument Performing Lab [facility] 09/22/2019 11:[address] [facility] Swab ENTIRE NASOPHARYNX / Unknown 09/21/2019 9:14 EDT 09/21/2019 16:10 EDT Provider Outr Resulting Lab MICROBIOLOGY - GENERAL ORDERABLES [facility] [address] [place] [address] documented in this encounter Visit Diagnoses Not on filedocumented in this encounter Care Teams Curing Bin Operator Relationship Specialty Start Date End Date Grant Lindsey MD [facility] [place] [address] PCP - General 09/09/19 documented as of this encounter
--- OUTSIDE RECORDS SUMMARY | 2024-01-23 00:38 | XMS_ITS | Encounter Summary ---
Author Organization [facility] Address [address] [place] [address] Care Team Providers Care Dressage Instructor Name Role Phone Renettabrittney Mehul Brittney SMITH Primary Care Provider Reason for Visit * Reason Onset Date Comments Appointment Related 05/24/2019 Encounter Details Date Type Department Care Team (Late st Contact Info) Description 05/24/2019 Telephone [facility] Neurosurgery - [facility] [address] [place], [place] [phone] Alfonzo Cobb MD [address] [facility], [address] [place] [address] Appointment Related Social History Tobacco [...] * Telephone Encounter - Gricelda Short - 05/24/2019 1047 EST Called the Department of [place] [facility] and confirmed they received the transportation request for the patient. Also confirmed the appointment was changed to 06/11/19 at 11:30am. documented in this encounter Plan of Treatment Not on file documented as of this encounter Visit Diagnoses Not on filedocumented in this encounter Care Teams Dressage Instructor Relationship Specialty Start Date End Date Mehul Valladares DO PCP - General 06/25/18 09/08/19 documented as of this encounter
--- OUTSIDE RECORDS SUMMARY | 2024-01-23 00:38 | XMS_ITS | Encounter Summary ---
Author Organization [facility] Address [address] [place] [address] Care Team Providers Care Studio Couch Frame Builder Name Role Phone Mehul Valladares DO Primary Care Provider [phone] Encounter Details Date Type Department Care Team (Late st Contact Info) Description 10/15/2018 Results Only Imaging [facility] [phone] Unknown, Provider, Social History Tobacco Use Types Packs/Day Years [...] as of this encounter Plan of Treatment Pending Results Name Type Priority Associated Diagnoses Date /Time OUTSIDE IMAGES - CT NEURO Imaging 10/15/2018 17:23 EDT documented as of this encounter Visit Diagnoses Not on filedocumented in this encounter Care Teams Studio Couch Frame Builder Relationship Specialty Start Date End Date Mehul Valladares DO PCP - General 06/25/18 09/08/19 documented as of this encounter
--- OUTSIDE RECORDS SUMMARY | 2024-01-23 00:38 | XMS_ITS | Encounter Summary ---
Author Organization [facility] Address [address] [place] [address] Care Team Providers Care Prints And Drawings Curator Name Role Phone Grant Lindsey MD Primary Care Provider [phone] Encounter Details Date Type Department Care Team (Latest Contact Info) Description 12/24/2019 9:50 EDT - 12/24/2019 23:59 EDT Hospital Encounter [facility] Pre-Surgical Testing [address] [place], [place] [address] Discharge Disposition: Home or Self Care Anesthesia Record Procedure Summary Procedure Name Responsible [...] acknowledgement of understanding. 1256 An Stop Meds * Agents No agents on file. * Blood No blood administrations on file. Lines, Drains, and Airways Type Details Placement Removal Foam Border Prophylactic Dressing 01/05/20; 0727; Mid; Coccyx; Other (Comment) 01/05/20 0727 by [...] intact, Dressing applied 01/05/20 0800 by Jody Vines CRNA 01/06/20 1436 by Orin Menchaca RN Urethral [...] OR by MD; 1; Right; Scalp; 10 Turkish; 01/06/20; 1719 (Removed by doctor at bedside) 01/05/20 1145 by Jayjay Cuellar RN 01/06/20 1719 by Orin Menchaca, BRY documented in this encounter Social History Tobacco [...] - - Height 165.1 cm (5' 5) 12/24/2019 1033 EDT Body Mass Index - - documented in this encounter Functional Status Functional [...] No 11/02/2019 documented as of this encounter Medications at Time of Discharge Medication Sig Dispensed Refills Start Date End Date acetaminophen (TYLENOL) 325 mg tablet Take 2 Tabs by mouth every 4 hours as needed for Pain. 01/07/2020 ALBUTEROL INHL Inhale 1 Puff as directed [...] Take 75 mg by mouth daily. 12/26/2019 famotidine (PEPCID) 20 mg tablet Take 20 mg by mouth 2 times daily. 01/05/2020 levETIRAcetam (KEPPRA) 500 mg tablet Take 1 Tab by mouth every 12 hours for 7 days. 14 Tab 01/07/2020 01/14/2020 documented as of this encounter Discharge Disposition Disposition Code Departure Means Destination Home or Self Care documented in this encounter Progress Notes * Camryn Valencia, RN - 12/24/2019 0909 EDT COVID 19 Screening Perioperative at time of PAT Please document by exception (only check those that apply). Have you had any of the following symptoms recently? no Yes Chronic ? Cough Shortness of breath or difficulty breathing Fever Chills Fatigue Muscle or body aches Severe Headache New loss of taste or smell Sore throat Congestion or runny nose Rash Nausea, vomiting, or diarrhea (rare in adults. More common in children) Please elaborate if yes: If a chronic symptom is reported use your judgement if an anesthesia review is needed. Have you been in close contact with someone who has been diagnosed with Covid 19? no (close contact, within 6 feet of any person known to have Coronavirus in the past 14 days) If past COVID + test results in chart: ??? Complete call, Place for Anesthesia Review ??? Do not give COVID+ DOS arrival instructions unless anes review deems necessary Negative COVID screen: Please file negative COVID screening under a progress note Negative screening is no symptoms or patient reporting a chronic symptom that does not need an anesthesia review Positive COVID screen: Patient answers yes to the question(s) and it is not a chronic symptom RN to flag this chart for anesthesia review and complete call Please file positive COVID screening under a PAT note If patient develops any of these symptoms between now and their surgery date instruct them to call us back at [phone] to report symptoms (If patient is in Surgical Admissions and answers yes, please notify Surgery and Anesthesia team). Follow proper precautions- yellow mask to patient/family. [place]: Visitor Policy: OP- one non-sick escort in waiting room, no visitors/escort in PreOp, one visitor in PACU for 10 mins at end of recovery Exceptions: Child-1 parent, special needs- 1 caregiver For safety concerns on ride home: second parent or caregiver may come to hospital but will have to wait in cell phone lot IP- One non-sick visitor/escort in waiting room, no visitors/escort in PreOp, one visitor in PACU for 10 mins at end of recovery. One designated visitor is allowed to visit the patient on the in patient unit. Pediatric patient: ??? Both parents can come with child DOS, one is allowed with child in PreOp/PACU, one has to wait in the waiting room ??? Due to COVID 19 no parents are allowed to go back to OR. ??? Explain IV/Mask induction. IV or mask will be available for pedi patients who are asymptomatic and test COVID negative. ??? If parent declines or no test results, Pt will get IV in PreOp, except PE tubes. For State tracking purposes, the parents of these children will be asked to consent to having their child COVID tested under anesthesia. ??? Unsedated children will be allowed one parents in the OR room for support. ??? RN to provide education on IV's and request Emla to be placed (RX from PCP) prior to coming in with them. ? ? Patient > 1 yo: Emla takes one hour to work, place quarter size amount on 4 places - top of hands and inner elbow, cover with tegaderm or saran wrap. Children under age of 16 y.o. are not permitted. Only ADA service animals are permitted into the hospital. All other animals, including previously approved therapy/support animals, are not allowed at this time. (No animals will be allowed into Preop, OR, or PACU) Visitor Policy [place]: - One non-sick escort/visitor in waiting room, no visitors/escort in PeriOp - Same exceptions apply as main campus: children and special needs - Visitors/rides home that are not in waiting room should be within 15 mins away - Visitors must have mask for pickup documented in this encounter OR Notes * Preprocedure Instructions - Camryn Valencia RN - 12/24/2019 0950 EDT Kallie Darling has been instructed as follows regarding medication administration for the day of the scheduled procedure. Date of Surgery: 01/05/2020 Instructions for Taking Medications Day of Surgery Medication Sig Last Dose Hold DOS Take DOS ALBUTEROL INHL Inhale 1 Puff as directed as needed. Yes carvedilol (COREG) 6.25 mg tablet Take 6.25 mg by mouth 2 times daily. -pt does not have; awaiting instruction from primary MD ANDRES STARTING MONTH BOX 0.5 mg (11)- 1 mg (42) tablet TAKE BY MOUTH DIRECTED ON PACKAGE. yes clopidogrel (PLAVIX) 75 mg tablet Take 75 mg by mouth daily. -awaiting instruction from primary MD cyanocobalamin (VITAMIN B-12) 500 mcg tablet Take 1,000 mcg by mouth daily. yes famotidine (PEPCID) 20 mg tablet Take 20 mg by mouth 2 times daily. - pt does not have -awaiting instruction fluticasone propion/salmeterol (ADVAIR DISKUS INHALATION) Inhale [...] the skin 3 times daily with meals. yes levothyroxine (SYNTHROID) 50 mcg tablet Take 50 mcg by mouth daily. - pt does not have; awaiting instruction lisinopriL (PRINIVIL) 10 mg tablet TAKE ONE TABLET BY MOUTH EVERY DAY FOR FOR BLOOD PRESSURE 01/03/2020 yes loratadine (CLARITIN) 10 mg tablet Take 10 mg by mouth daily. - pt santana not have - awaiting instruction Yes metFORMIN (GLUCOPHAGE) 500 mg tablet Take 1,000 mg by mouth 2 times daily. yes mirtazapine (REMERON) 15 mg tablet Take 15 mg by mouth at bedtime. continue pantoprazole (PROTONIX) 40 mg tablet Take 40 mg by mouth 2 times daily. Yes risperiDONE (RISPERDAL) 0.5 mg tablet Take 0.5 mg by mouth at bedtime. continue sertraline (ZOLOFT) 50 mg tablet Take 50 mg by mouth daily. yes documented in this encounter Miscellaneous Notes * PAT Note - Juan M Ku MD - 12/24/2019 0950 EDT Kallie Nail Cutter has been instructed as follows regarding medication [...] risk patient, moderate risk procedure. May proceed. documented in this encounter Plan of Treatment Not on file documented as of this encounter Visit Diagnoses Not on filedocumented in this encounter Historical Medications * This list may reflect changes made after this encounter. Medication Sig Dispensed Refills Start Date End Date CHANTIX STARTING MONTH BOX 0.5 mg (11)- 1 mg (42) tablet TAKE BY MOUTH DIRECTED ON PACKAGE. 12/09/2019 sertraline (ZOLOFT) 50 mg tablet Take 50 mg by mouth daily. 12/04/2019 risperiDONE (RISPERDAL) 0.5 mg tablet Take 0.5 mg by mouth at bedtime. 11/30/2019 mirtazapine (REMERON) 15 mg tablet Take 15 mg by mouth at bedtime. 10/27/2019 levothyroxine (SYNTHROID) 50 mcg tablet Take 50 mcg by mouth daily. furosemide (LASIX) 20 mg tablet Take 20 mg by mouth daily. 11/21/2019 lisinopriL (PRINIVIL) 10 mg tablet TAKE ONE TABLET BY MOUTH EVERY DAY FOR FOR BLOOD PRESSURE 11/21/2019 added in this encounter Care Teams Prints And Drawings Curator Relationship Specialty Start Date End Date Grant Lindsey MD [address] [place] [address] PCP - General 09/09/19 documented as of this encounter
--- OUTSIDE RECORDS SUMMARY | 2024-01-23 00:38 | XMS_ITS | Encounter Summary ---
Author Organization [facility] Address [address] [place] [address] Care Team Providers Care Manager Of Sales Name Role Phone Chikiskj Mehul Brittney SMITH Primary Care Provider [phone] Reason for Visit * Reason Onset Date Comments Appointment Related 06/18/2019 Encounter Details Date Type Department Care Team (Late st Contact Info) Description 06/18/2019 Telephone [facility] Interventional Radiology - [address] [id number] Pedro Buchanan MD [address] [facility], [address] [place] [id number] Appointment Related Social History Tobacco Use Types [...] Miscellaneous Notes * Telephone Encounter - Cleo Guthrie - 06/18/2019 1239 EST Called and spoke with Kallie in regards to scheduling their Cerebral Angiogram requested by Dr. Cobb. Ms. Darling will be coming in on FridayJuly 05 at 0900, checking in with registration at 0845. They understand that they will need a log truck driver, and that they should plan on being NPO eight hours prior to this procedure. Ms. Darling can have clear liquids two hours prior to their check in time. They will take their morning medications with a small sip of water. Confirmed that they are not taking over the counter pain medication regularly and will not do so two days prior to this procedure. Confirmed that they are NOT taking blood thinning medication. She knows to hold Ibuprofen for 24 hours. She only takes occasionally. I put a letter in the mail with pre procedure confirmation as well as prep instructions. I will inform the ordering office of this scheduled date and time. Routed to Neurosurgery. Ms. Darling verbalized understanding and agrees with Plan of Care. No cognitive barriers were identified during this conversation. She has our contact number to call with questions. Cleo Guthrie documented in this encounter Plan of Treatment Not on file documented as of this encounter Visit Diagnoses Not on filedocumented in this encounter Care Teams Manager Of Sales Relationship Specialty Start Date End Date Mehul Valladares DO PCP - General 06/25/18 09/08/19 documented as of this encounter
--- OUTSIDE RECORDS SUMMARY | 2024-01-23 00:38 | XMS_ITS | Encounter Summary ---
Author Organization [facility] Address [address] [place] [address] Care Team Providers Care Wildlife Ecology Professor Name Role Phone Grant Lindsey MD Primary Care Provider [phone] Reason for Visit * Reason Onset Date Comments Appointment Related 10/27/2019 Encounter Details Date Type Department Care Team (Late st Contact Info) Description 10/27/2019 Telephone [facility] Neurosurgery - [facility] [address] [place], [place] [id number] Alfonzo Cobb MD [address] [facility], [address] [place] [address] Appointment Related Social History Tobacco [...] * Telephone Encounter - Gricelda Short - 10/27/2019 1036 EDT Tried to call patient to review our current visitor policy in advance of her appointment on 11/02/19, but got an automated message saying the call could not be completed as dialed (tried multiple times). documented in this encounter Plan of Treatment Not on file documented as of this encounter Visit Diagnoses Not on filedocumented in this encounter Care Teams Wildlife Ecology Professor Relationship Specialty Start Date End Date Grant Lindsey MD [address] [place] [address] PCP - General 09/09/19 documented as of this encounter
--- OUTSIDE RECORDS SUMMARY | 2024-01-23 00:38 | XMS_ITS | Encounter Summary ---
Author Organization [facility] Address [address] [place] [address] Care Team Providers Care Power Technician Name Role Phone Grant Lindsey MD Primary Care Provider [phone] Reason for Visit * Reason Onset Date Comments COVID-19 09/11/2019 Encounter Details Date Type Department Care Team (Late st Contact Info) Description 09/11/2019 Telephone [facility] Interventional Radiology Unit [address] [place], [place] [id number] Fe Kirkpatrick PA-C [address] [facility], [address] [place] [address] COVID-19 Social History Tobacco Use [...] encounter Miscellaneous Notes * Telephone Encounter - Haily Masterson - 09/11/2019 1126 EDT Preventive Medicine Physician attempted to schedule a COVID-19 test for patient, in preparation for patient's 09/13 procedure. However, patient does not have access to transportation to testing sites, and lives outside the area covered by the in-home testing service used by [facility]. Please advise patient how she should proceed. documented in this encounter Plan of Treatment Not on file documented as of this encounter Visit Diagnoses Not on filedocumented in this encounter Care Teams Power Technician Relationship Specialty Start Date End Date Grant [place] [address] [address] [place] [address] PCP - General 09/09/19 documented as of this encounter
--- OUTSIDE RECORDS SUMMARY | 2024-01-23 00:38 | XMS_ITS | Encounter Summary ---
Author Organization [facility] Address [address] [place] [address] Care Team Providers Care Food Counselor Name Role Phone Jacquelyn Mehul Lugo DO Primary Care Provider [phone] Reason for Visit * Reason Comments New Patient Visit aneurysm * Consult (Routine) - Specialty Report Received Specialty Diagnoses / Procedures Referred By Nicol lugo Referred To Contact Neurosurgery Diagnoses Aneurysm of middle cerebral artery Rigoberto Dos Santos MD [address] [place] [phone] Alfonzo Cobb MD [address] [place] [phone] Referral ID Status Reason Start Date Expiration Date Visits Requested Visits Authorized [id number] Specialty Report Received Specialty Services Required 12/25/2018 1 1 Encounter Details Date Type Department Care Team (Late st Contact Info) Description 06/11/2019 11:30 EST Office Visit [facility] Neurosurgery - [facility] [address] [place] [address] Alfonzo Cobb MD [address] [place] [phone] Cerebral aneurysm, nonruptured (Primary Dx) Social [...] Sign Reading Time Taken Comments Blood Pressure 130/84 06/11/2019 1126 EST Pulse 76 06/11/2019 1126 EST Temperature - - Respiratory Rate 16 06/11/2019 1126 EST Oxygen Saturation - - Inhaled Oxygen [...] Progress Notes * Alfonzo Cobb MD - 06/11/2019 1130 EST This office note has been dictated. documented in this encounter Consult Notes * Alfonzo Cobb MD - 06/11/2019 0000 EST [facility] NEUROLOGICAL SURGERY CONSULTATION - 06/11/2019 Mehul Valladares DO [address] [place] [address] Valladares: I had the opportunity of seeing your patient, Kallie Darling, in consultation in my neurosurgery office at [facility] on 06/11/2019. She was referred to see me by my neuroophthalmologist colleague, Dr Maulik Dos Santos for assessment of a right middle cerebral artery aneurysm. This woman is 58 years old. She lives in [place]. She is left-handed. She has been disabled formany years. She was referred to see Dr Dos Santos for assessment of left eye pain and visual disturbance. During theinvestigations, a CTA was performed and a CTA revealed a 4 to 5 mm right middle cerebral artery aneurysm. She thinks that her brother has a cerebral aneurysm as well. Nothing in her past history indicates that she has had a cerebral bleed. In the past, she has been diagnosed with diabetes, cirrhosis of the liver, hypertension, diabetic neuropathy, hypothyroidism, obesity, tobacco abuse, strokes x2 in 08/2017, hyperparathyroidism, obstructive sleep apnea and now a new diagnosis of possible colon cancer. Surgical history includes hysterectomy, orthopedic procedures, hand surgery and colonoscopy. Medications: Current medications include albuterol, Coreg, Plavix, Pepcid, gabapentin, metformin, Claritin, Protonix, and allopurinol. Allergies listed include AMOXICILLIN, ASPIRIN, AUGMENTIN, LACTOSE and NEOSPORIN. Family history is limited. On examination, she is a very poor historian. She does have abnormal tremors of her arms. Testing of her vision is very difficult as she has very poor vision and has trouble even counting fingers. Her pupils are equal and reactive and she has normal extraocular movements. She has no facial numbnessor weakness. Lower cranial nerves appear to be normal. She has full strength in her upper and lower extremities. On gross testing her sensation is normal in upper and lower extremities as well. I did review a CTA of her head with her. This CTA shows a 4 to 5 mm aneurysm at the bifurcation of the right middle cerebral artery. I did discuss with her the natural history of aneurysms and did discuss the risk of rupture and if it ruptures the consequence of the rupture. I also detailed different ways to treat the aneurysm if treatment is necessary. Treatment includes endovascular treatment versus surgical treatment. I do worry about the fact that she is on Plavix and does have an aneurysm in place. I have asked her to undergo a cerebral angiogram, so we can get a good look at the aneurysm to decide if it needs to be treated and if so, what method would be best to treat it. I believe that she understands the implications. We will proceed with a cerebral angiogram. I will see her after that is done. Yours sincerely, Alfonzo Cobb MD 12 42 PM - Alfonzo Cobb MD rn Dictation ID: [id number] cc: Mehul Valladares DO, [address] [place] [address] Rigoberto Dos Santos MD, [facility] - Ophthalmology [address] [place] [address] documented in this encounter Plan of Treatment Not on file documented as of this encounter Visit Diagnoses Diagnosis Cerebral aneurysm, nonruptured- Primary documented in this encounter Care Teams Food Counselor Relationship Specialty Start Date End Date Mehul Valladares DO PCP - General 06/25/18 09/08/19 documented as of this encounter
--- OUTSIDE RECORDS SUMMARY | 2024-01-23 00:38 | XMS_ITS | Encounter Summary ---
Author Organization [facility] Address [address] [place] [address] Care Team Providers Care Service Worker Name Role Phone Jacquelyn Mehul Brittney SMITH Primary Care Provider [phone] Reason for Visit * Reason Onset Date Comments Medical Records 01/05/2019 Encounter Details Date Type Department Care Team (Late st Contact Info) Description 01/05/2019 Telephone [facility] Ophthalmology - [address] [id number] Rigoberto Dos Santos MD [address] [facility], [facility] [address] [place] [address] Medical Records Social History Tobacco Use Types Packs/Day Years [...] encounter Miscellaneous Notes * Telephone Encounter - Camryn Mcfarland - 01/07/2019 0935 EDT Notes have been faxed * Telephone Encounter - Marium Loo - 01/05/[address] Dos Santos's note, once signed, to Dr. Del Rosario at fax: [phone]. documented in this encounter Plan of Treatment Not on file documented as of this encounter Visit Diagnoses Not on filedocumented in this encounter Care Teams Service Worker Relationship Specialty Start Date End Date Mehul Valladares DO PCP - General 06/25/18 09/08/19 documented as of this encounter
--- OUTSIDE RECORDS SUMMARY | 2024-01-23 00:38 | XMS_ITS | Encounter Summary ---
Author Organization [facility] Address [address] [place] [address] Care Team Providers Care Cooling Pan Tender Name Role Phone Grant Lindsey MD Primary Care Provider [phone] Reason for Visit * Reason Onset Date Comments Appointment Related 12/02/2019 Encounter Details Date Type Department Care Team (Late st Contact Info) Description 12/02/2019 Telephone [facility] Neurosurgery - [facility] [address] [place], [place] [phone] Alfonzo Cobb MD [address] [facility], [address] [place] [address] Appointment Related Social History Tobacco [...] of Binge Drinking Not on file 06/12 Interpersonal Safety Answer Date Record ed Physically [...] as of this encounter Miscellaneous Notes * Addendum Note - Vinod Rodriguez RN - 12/02/2019 1448 EDTAddended by: VINOD RODRIGUEZ on: 12/02/2019 14:48 Modules accepted: Orders * Telephone Encounter - Vinod Rodriguez RN - 12/02/2019 1448 EDT Covid testing ordered in anticipation of 01/05/20 surgery. Message left for patient advising her to contact triage should she develop symptoms of Covid 19 or have a known exposure near the time of hertesting. * Telephone Encounter - Dorcas Bolanos - 12/02/2019 1204 EDT Kallie returned call and confirmed 01/05/2020 as her surgery date with Dr. Alfonzo Cobb. Kallie stated that she's scheduled for an appointment on 12/08/19 with her PCP and was advised to contacttheir office to notify them that it will need to be a preop physical. Kallie is aware that this principal technical writer will fax our preop form to their office. Discussed with Kallie that will need to have a Covid test 4-7 days prior to her surgery and will need to self quarantine afterwards. She's aware thata covid testing clinical business manager will contact her with the date/time/location of that test. Kallie verbalized understanding of all information discussed and denied having any questions. * Telephone Encounter - Dorcas Bolanos - 12/02/2019 1054 EDT Attempted to contact Kallie to discuss scheduling her surgery with Dr. Cobb. The number listed on file is currently out of service. Chemical Detection Expert attempted to contact PCP for an alternate number but no one answered. Chemical Detection Expert LM for patient's emergency contact, her daughter Asiya, asking her to return our call so we can update Kallie's phone number/contact information. documented in this encounter Plan of Treatment Not on file documented as of this encounter Visit Diagnoses Diagnosis Preoperative testing- Primary Preoperative examination, unspecified documented in this encounter Care Teams Cooling Pan Tender Relationship Specialty Start Date End Date Grant Lindsey [place] [address] [address] [place] [address] PCP - General 09/09/19 documented as of this encounter
--- OUTSIDE RECORDS SUMMARY | 2024-01-23 00:38 | XMS_ITS | Encounter Summary ---
Author Organization [facility] Address [address] [place] [address] Care Team Providers Care Sandwich Hand Name Role Phone ChikisMehul underwood Brittney SMITH Primary Care Provider Reason for Visit * Reason Onset Date Comments Eye Problem 11/27/2018 Encounter Details Date Type Department Care Team (Late st Contact Info) Description 11/27/2018 Telephone [facility] Ophthalmology - [address] [address] Rigoberto Dos Santos MD 111 [facility], [address] [place] [address] Eye Problem Social History Tobacco Use Types Packs/Day Years [...] encounter Miscellaneous Notes * Telephone Encounter - Kalani Mcclelland - 12/02/2018 0913 EDT Patient called back and I scheduled her for 12/03/18. She states that she will need a form filled out for [facility]. I asked her to have [facility] fax us a form. * Telephone Encounter - Ruddy Guthrie - 12/02/2018 0904 EDT Called and LMOM, reminder in * Telephone Encounter - George Smith RN - 12/02/2018 0842 EDT Sent to ruddy to call patient and schedule. George Smith RN 12/02/2018 8:42 * Telephone Encounter - George Smith RN - 11/27/2018 0959 EDT As of 11/27/2018 9:59: Nature of problem? Pressure feeling in eyes, few weeks it started. Vision is blurry. This started last week. Using AT but its helping. Sometimes she see's red or yellow dots in her vision. When he firrst wakes up it takes a few minutes for her eyes to focus. She has double vision, mainly when she texts. That stated week. She is concerned about her vision. She was not able to give clear answers. Onset and Duration? Few weeks now, 3 weeks. Is this an injury or trauma? no Pain? Describe the type of pain you are having (sharp, dull, etc) no Have you recently had eye surgery? no Are you having new or changed flashes/and or floaters? flashes that comes and goes and it varies. Any increased sensitivity to light? no Any loss of vision/curtain/darkness/veil? no Any change in vision/double vision/blurred? Blurry vision, double vision Any redness? no Are you Diabetic? yes Do you wear contact lenses? No Who do you see for your eye care? (name all providers) Dr Dos Santos Phone Number of Eye Doctor (if not FACP) Any other pertinent information? Would you be able to come in today if the provider needed to see you? Has seen Dr Rossi in the past but unsure when she last saw them. How long would it take you to get to our office? What is the best phone number for us to speak to you in the next two hours? [phone] (VERIFY THE PHONE NUMBERS REGARDLESS OF WHAT IS IN THE SYSTEM.) Please list the next appointment or due date. * Telephone Encounter - Ruddy Guthrie - 11/27/2018 0835 EDT PT is still feeling a lot of pressure behind eye and blurred vision. The blurry vision started a few days ago. Has problems focusing when she wakes up in the morning. Has been using the dry eyes regularly. Takes almost a half an hour before her eyes can really focus, and the vision is still fuzzy. Patient does sometimes see red spots in her vision. She has had them in the past, but she's startedto see more of them about a week ago. documented in this encounter Plan of Treatment Not on file documented as of this encounter Visit Diagnoses Not on filedocumented in this encounter Care Teams Sandwich Hand Relationship Specialty Start Date End Date Mehul Valladares DO PCP - General 06/25/18 09/08/19 documented as of this encounter
--- OUTSIDE RECORDS SUMMARY | 2024-01-23 00:38 | XMS_ITS | Encounter Summary ---
Author Organization [facility] Address [address] [place] [address] Care Team Providers Care Manager Data Warehousing Name Role Phone Grant Lindsey MD Primary Care Provider [phone] Reason for Visit * Reason Onset Date Comments Appointment Related 09/10/2019 Encounter Details Date Type Department Care Team (Late st Contact Info) Description 09/10/2019 Telephone [facility] Interventional Radiology - [facility] [place] [address] [place] [address] Justin Singh, RN [address] [place] [address] Appointment Related Social History Tobacco Use Types [...] encounter Miscellaneous Notes * Telephone Encounter - Justin Rae RN - 09/10/2019 1002 EDT Pre call info reviewed per my previous note. Pt has not yet been contacted for Covid testing ( was tested on 08/26). Aware she will be contacted for retesting. Pt has transportation set up for this appointment but is confirming with them today- will call us to update if there are issues with her ride. documented in this encounter Plan of Treatment Not on file documented as of this encounter Visit Diagnoses Not on filedocumented in this encounter Care Teams Manager Data Warehousing Relationship Specialty Start Date End Date [place] [address] [address] PCP - General 09/09/19 documented as of this encounter
--- OUTSIDE RECORDS SUMMARY | 2024-01-23 00:38 | XMS_ITS | Encounter Summary ---
Author Organization [facility] Address [address] [place] [address] Care Team Providers Care Apartment Maintenance Manager Name Role Phone Grant Lindsey MD Primary Care Provider [phone] Reason for Visit * Reason Comments Discuss Surgery Encounter Details Date Type Department Care Team (Late st Contact Info) Description 11/02/2019 14:40 EDT Office Visit [facility] Neurosurgery - [facility] [address] [place], [place] [id number] Alfonzo Cobb MD 111 [facility], [address] [place] [address] Cerebral aneurysm, nonruptured (Primary Dx) [...] 14:41 EDT documented as of this encounter Last Filed Vital Signs Vital Sign Reading Time Taken Comments Blood Pressure - - Pulse - - Temperature - - Respiratory Rate - - Oxygen Saturation - - Inhaled Oxygen Concentration - - Weight 90.7 kg (200 lb) 11/02/2019 1443 EDT Height 165.1 cm (5' 5) 11/02/2019 1443 EDT Body Mass Index 33.28 11/02/2019 1443 EDT documented in this encounter Functional Status [...] No 11/02/2019 documented as of this encounter Progress Notes * Alfonzo Cobb MD - 11/02/2019 1440 EDT [facility] NEUROLOGICAL SURGERY PROGRESS / FOLLOWUP NOTE - 11/02/[address] Lindsey, I had the opportunity of seeing your patient, Kallie Darling, back in my neurosurgery office for followup on 11/02/2019. 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 She has undergone CTA and cerebral angiogram assessment. She is 58 years old. She lives in [place]. I did see her previously, 06/11/2019, where I reviewed a CTA with her, which showed a 5 mm right MCA aneurysm. I recommended that she undergo an angiogram for assessment of the aneurysm and the possibility of treating with endovascular technique. Dr Jed Griffin felt that it would be best treated surgically rather than endovascularly. I discussed the natural history of cerebral aneurysm with Kallie today. She is aware that this aneurysm is asymptomatic, but does have a risk of rupture and if it does rupture then prognosis is poor. She would like to go ahead with surgical treatment. Her past history is complicated. She does have diabetes, cirrhosis, hypertension, cerebrovascular disease, hyperparathyroidism, sleep apnea. She is currently on Plavix as well. I will have my neurosurgery PA, Amber Lawrence, give you a call to sort out these medical problems prior to taking her to surgery in December. The risks and benefits of surgery have been clearly explained to her. The risks are clearly listed on our consent form, which she has signed. I believe she is fully consented. I have told her that wewill perform the surgery as carefully as we can, but there is a risk of complications, which she now has been informed of. We will proceed with a craniotomy for clipping of the aneurysm for later in December. We will keepyou informed. Yours sincerely, Alfonzo Cobb MD / RK Dictation ID: [id number] cc: Mehul Valladares, , [address] [place] [address] * Alfonzo Cobb MD - 11/02/2019 1440 EDT This office note has been dictated. * Vinod Rodriguez RN - 11/02/2019 1440 EDT Patient Education Topic: craniotomy aneurysm Method: Verbal, Written, Taught to: Patient Barriers: None Outcomes: independent and verbalized understanding PREPARING FOR SURGERY, A patient's guide was reviewed with the patient. Smoking cessation guidelines per patient guide unless otherwise documented by Physician. The patient was encouraged to reviewall instructions at home. Medications reviewed and reconciled Advised patient to DC all NSAIDS, vitamins and herbal supplements 7 days prior to procedure. Aspirin/Antiplatelet therapy-Plavix cessation plan will be discussed with PCP. Immunosuppressive therapy-none Insulin/oral hypoglycemic agents-deferred to anesthesia LAYLA inhibitor/ARB therapy-none Post-Op instructions reviewed. Collar/braces:no Advanced directive information provided. Pain Consult:no MRSA/MSSA protocol:no AGREEMENT FOR POST-OPERATIVE NON-INVASIVE VENTILATION-not applicable Signature: Jorge Alberto LNODONO documented in this encounter Miscellaneous Notes * Addendum Note - Vinod Rodriguez RN - 11/02/2019 1440 EDTAddended by: VINOD RODRIGUEZ on: 11/02/2019 15:29 Modules accepted: Orders documented in this encounter Plan of Treatment Not on file documented as of this encounter Visit Diagnoses Diagnosis Cerebral aneurysm, nonruptured- Primary documented in this encounter Discontinued Medications Medication Sig Discontinue Reason Start Date End Da te allopurinol (ZYLOPRIM) 100 mg tablet Take 100 mg by mouth daily. Patient Stopped Taking 11/02/2019 documented as of this encounter Orders Case Request Count Last Ordered Date First Orde red Date CASE REQUEST OPERATING ROOM 1 11/02/2019 documented in this encounter Care Teams Apartment Maintenance Manager Relationship Specialty Start Date End Date Grant Lindsey MD [address] [place] [address] PCP - General 09/09/19 documented as of this encounter
--- OUTSIDE RECORDS SUMMARY | 2024-01-23 00:38 | XMS_ITS | Encounter Summary ---
Author Organization [facility] Address [address] [place] [address] Care Team Providers Care Retail Tire Sales Manager Name Role Phone Renettabrittney Mehul Brittney SMITH Primary Care Provider [phone] Reason for Visit * Reason Onset Date Comments Appointment Related 06/10/2019 Appt 06/11: ANEURYSM Encounter Details Date Type Department Care Team (Late st Contact Info) Description 06/10/2019 Telephone [facility] Neurosurgery - [facility] [address] [place] [address] Alfonzo Cobb MD 111 [facility], [address] [place] [phone] Appointment Related (Appt 06/11: ANEURYSM) Social History Tobacco Use Types Packs/Day Years [...] * Telephone Encounter - Daniel Lam - 06/10/2019 1118 EST Spoke with patient and confirmed appointment on 06/[address] Cobb at 11:30AM. Patient verbalized understanding. documented in this encounter Plan of Treatment Not on file documented as of this encounter Visit Diagnoses Not on filedocumented in this encounter Care Teams Retail Tire Sales Manager Relationship Specialty Start Date End Date Mehul Valladares DO PCP - General 06/25/18 09/08/19 documented as of this encounter
--- OUTSIDE RECORDS SUMMARY | 2024-01-23 00:38 | XMS_ITS | Encounter Summary ---
Author Organization [facility] Address [address] [place] [address] Care Team Providers Care Senior Svp Name Role Phone Renettabrittney Mehul Brittney SMITH Primary Care Provider Reason for Visit * Reason Onset Date Comments Appointment Related 01/26/2019 Encounter Details Date Type Department Care Team (Late st Contact Info) Description 01/26/2019 Telephone [facility] Neurosurgery - [facility] [address] [place], [place] [phone] Alfonzo Cobb MD 111 [facility], [address] [place] [address] Appointment Related Social History Tobacco [...] * Telephone Encounter - Gricelda Short - 01/26/2019 1538 EDT Called patient to see if she would like to see Dr. Cobb on 01/28 instead of 02/04, but was reminded by patient that she has a Medicaid ride which requires advanced notice so it will not work. documented in this encounter Plan of Treatment Not on file documented as of this encounter Visit Diagnoses Not on filedocumented in this encounter Care Teams Senior Svp Relationship Specialty Start Date End Date Mehul Valladares DO PCP - General 06/25/18 09/08/19 documented as of this encounter
--- OUTSIDE RECORDS SUMMARY | 2024-01-23 00:38 | XMS_ITS | Encounter Summary ---
Author Organization [facility] Address [address] [place] [address] Care Team Providers Care Soup Mixer Name Role Phone Grant Lindsey MD Primary Care Provider [phone] Reason for Referral * Radiology Services (Routine) - Closed Specialty Diagnoses / Procedures Referred By Nicol sparks Referred To Contact Diagnoses Cerebral aneurysm, nonruptured Procedures IR CAROTID CEREBRAL BILATERAL Alfonzo Cobb MD [address] [phone] Referral ID Status Reason Start Date Expiration Date Visits Re quested Visits Authorized [id number] Closed 09/02/2019 1 1 Reason for Visit * Radiology Services (Routine) - Closed Specialty Diagnoses / Procedures Referred By Nicol sparks Referred To Contact Diagnoses Cerebral aneurysm, nonruptured Procedures IR CAROTID CEREBRAL BILATERAL Alfonzo Cobb MD [address] [phone] Referral ID Status Reason Start Date Expiration Date Visits Re quested Visits Authorized [id number] Closed 09/02/2019 1 1 Encounter Details Date Type Department Care Team (Late st Contact Info) Description 09/14/2019 6:56 EDT - 09/14/2019 13:36 EDT Hospital Encounter [facility] Interventional Radiology Unit [address] [place] [address] Alfonzo Cobb MD [address] [place] [address], [facility] [address] [place] [phone] Fe Kirkpatrick PA-C [address] [place] [address] [address] [place] [phone] Jed Girffin MD [address] [place] [phone] Hernando Sheppard MD [address] [place] [phone] Cerebral aneurysm, nonruptured Discharge Disposition: Home or Self Care Social [...] 6:54 EDT documented as of this encounter Last Filed Vital Signs Vital Sign Reading Time Taken Comments Blood Pressure 111/76 09/14/2019 1257 EDT Pulse - - Temperature 37 ??C (98.6 ??F) 09/14/2019 1250 EDT Respiratory Rate 16 09/14/2019 1100 EDT Oxygen Saturation 100% 09/14/2019 1257 EDT Inhaled Oxygen Concentration - - Weight 90.7 kg (200 lb) 09/14/2019 0730 EDT Height 165.1 cm (5' 5) 09/14/2019 0730 EDT Body Mass Index 33.28 09/14/2019 0730 EDT documented in this encounter Functional Status [...] Yes 06/11/2019 documented as of this encounter Discharge Instructions * Discharge Instructions* Axel Duron RN - 09/14/2019 10:12 EDT RADIOLOGY PATIENT EDUCATION INSTRUCTIONS FOLLOWING AN ANGIOGRAM OF THE HEAD Procedure Wound Site - right Femoral Dr. Jed Griffin MD and Hernando Sheppard MD has completed an angiogram of your Head. 1. Please drink extra fluids today (6-8 glasses). This will encourage the excretion of the contrastdye material. 2. Do not drive or make any legal decisions today as you have received medications. 3. If you feel a tingling sensation or lack of feeling in the affected extremity, call your local doctor. 4. If you note any signs of bleeding, such as bulging under the skin the size of a golf ball, put direct pressure to the area, call your doctor, and go to the nearest emergency room or call 911 for assistance. 5. You may resume all of your normal dietary and medication requirements. 6. Leave the sterile dressing on for 24 hours, then shower and clean the area daily. Place a clean Band-Aid over the site each day for 5 days. 7. Do not take a tub bath, go in a hot tub or submerge in water for 5 days. 8. Do not put lotions or powder on the area for 5 days. 9. Report any signs of infection (redness, swelling, discharge and fever) to your doctor. 10. No lifting > 20 lbs. or heavy exertion for 5 days after procedure. The results of your Angiogram will be sent directly to your physician within 3 working days. CLOSURE DEVICE Mynx - Mynx uses a soft, sponge-like material to close the small hole in your blood vessel after your procedure. It works by rapidly absorbing the blood around the puncture site, which stops the bleeding and immediately seals the hole. The Mynx will be completely absorbed by your body within 30 days, leaving nothing behind but a healed blood vessel. You may feel a small lump under the skin until it is absorbed (about the size of an olive pit). See your handout brochure for more information. Follow the instructions for wound care above. IF YOU HAVE ANY QUESTIONS OR CONCERNS REGARDING THE PROCEDURE, PLEASE CALL THE INTERVENTIONAL RADIOLOGY CLINIC AT . SOMEONE IS AVAILABLE TO TAKE YOUR CALL 24 HOURS A DAY. documented in this encounter Medications at Time of Discharge Medication Sig Dispensed Refills Start Date End Date ALBUTEROL INHL Inhale 1 Puff as directed as needed. carvedilol (COREG) 6.25 mg tablet Take 6.25 mg by mouth 2 times daily. cyanocobalamin (VITAMIN B-12) 500 mcg tablet Take 1,000 mcg by mouth daily. fluticasone propion/salmeterol (ADVAIR DISKUS INHALATION) Inhale 2 Puffs as directed 2 times daily. gabapentin (NEURONTIN) 800 mg tablet Take 800 mg by mouth 3 times daily. HYDROXYZINE HCL ORAL Take 25 mg by mouth as needed. insulin aspart U-100 (NOVOLOG FLEXPEN) 100 unit/mL injectable penIndications:type 2 diabetes mellitus,increase in units depending on sugar reading Inject 5 Units into the skin 3 times daily with meals. loratadine (CLARITIN) 10 mg tablet Take 10 mg by mouth daily. metFORMIN (GLUCOPHAGE) 500 mg tablet Take 1,000 mg by mouth 2 times daily. pantoprazole (PROTONIX) 40 mg tablet Take 40 mg by mouth 2 times daily. allopurinol (ZYLOPRIM) 100 mg tablet Take 100 mg by mouth daily. 11/02/2019 clopidogrel (PLAVIX) 75 mg tablet Take 75 mg by mouth daily. 12/26/2019 famotidine (PEPCID) 20 mg tablet Take 20 mg by mouth 2 times daily. 01/05/2020 documented as of this encounter Discharge Disposition Disposition Code Departure Means Destination Home or Self Longterm documented in this encounter Progress Notes * Erickson Pascual RN - 09/14/2019 1029 EDT Kallie Darling arrived to CVU #8 at 1008 via stretcher s/p diagnostic cerebral angiogram. Alert and oriented x3. 1020: c/o headache; Admin apap 650mg po @1255 Patient OOB, no complaints of pain, nausea, lightheadedness or dizziness. @approx 1215 MD in to bedside. @1220 Patient discharged to home via WC with transport van. * Axel Duron RN - 09/14/2019 0950 EDT Pt received from CVU to angio suite 23 at 0845. Pt in agreement with plan for Cerebral angiogram with conscious sedation. Patient name and verified using armband and verbally. Patient???s allergies, medications, labs and NPO status reviewed. IV site checked for patency. Pt educated on what to expect during the procedure as well as with IV sedation and verbalizes understanding. Pt positioned supine, with safety straps in place, extremities supported, and heels elevated for duration of procedure. Sterile prep of bilateral groin and right wrist with 2% Chloro prep by TJP in the usual sterile fashion in compliance with manufacturers recommendation. 0915 Aparicio moment agreed upon by all staff in room prior to start of Cerebral angiogram procedure by MILLY, TJP, TWP, PC and DMJ. Neurosurgery resident scrubbed in case as well. Attempt at right radial artery access failed by PC. Successful right femoral artery access achieved by PC. Diagnostic imaging completed, including rotational image. Right femoral artery closed by PC/DMJ with a Mynx at 0955. Distal pulses palpable. Pt monitored throughout procedure. Patient received 5.5 mg of Versed and 200 mcg Fentanyl during the 60 minute long procedure. Pt tolerated very well. Report given to Mimi RN on CVU. Pt transferred in stable condition. * Marjan Jones RN - 09/14/2019 0750 EDT Have you had any of the following symptoms? Fever YES/NO: No Cough/Chest congestion/Difficulty breathing YES/NO: No Sore throat or loss of taste / smell?YES/NO: No Chills YES/NO: No Joint Pain or weakness YES/NO: No Vomiting, abdominal pain, diarrhea YES/NO: No Severe headache YES/NO: No Bruising or bleeding YES/NO: No Rash or red eyes YES/NO: No Have you had known exposure or close contact with someone who has been diagnosed with Covid 19? (close contact, within 6 feet of any person known to have Coronavirus in the past 14 days) YES/NO: No Temperature: 36.5 taken in the CVU waiting room (>38.0 C is considered a fever) documented in this encounter H&P Notes * Hernando Sheppard MD - 09/14/2019 0832 EDT Sedation for Procedure History & Physical Date: 09/14/2019 Time: 8:32 Location: IR Planned Procedure: Cerebral angiogram Chief Complaint/Indications for Procedure: Right MCA aneurysm History: 59 yo F with right MCA aneurysm here for cerebral angiogram. Previous Complication with Sedation and/or Anesthesia? No Allergies: Allergies Allergen Reactions ??? Adhesive Medical tape ??? Amoxicillin ??? Aspirin Nausea ??? Augmentin [Amoxicillin-Pot Clavulanate] ??? Lactose Intolerance (Lactase) ??? Neosporin [Cojamwgy-Uhwluxkwync-Brdwawknw] Current Medications: Medications Prior to Admission Medication Sig Dispense Refill Last Dose ??? ALBUTEROL INHL Inhale 1 Puff as directed as needed. 09/13/2019 ??? allopurinol (ZYLOPRIM) 100 mg tablet Take 100 mg by mouth daily. 09/13/2019 ??? carvedilol (COREG) 6.25 mg tablet Take 6.25 mg by mouth 2 times daily. 09/13/2019 ??? clopidogrel (PLAVIX) 75 mg tablet Take 75 mg by mouth daily. 09/13/2019 ??? cyanocobalamin (VITAMIN B-12) 500 mcg tablet Take 1,000 mcg by mouth daily. 09/13/2019 ??? famotidine (PEPCID) 20 mg tablet Take 20 mg by mouth 2 times daily. 09/13/2019 ??? fluticasone propion/salmeterol (ADVAIR DISKUS INHALATION) Inhale 2 Puffs as directed 2 times daily. 09/13/2019 ??? gabapentin (NEURONTIN) 800 mg tablet Take 800 mg by mouth 3 times daily. 09/13/2019 ??? HYDROXYZINE HCL ORAL Take 25 mg by mouth as needed. 09/13/2019 ??? insulin aspart U-100 (NOVOLOG FLEXPEN) 100 unit/mL injectable pen Inject 5 Units into the skin 3 times daily with meals. 09/13/2019 ??? loratadine (CLARITIN) 10 mg tablet Take 10 mg by mouth daily. 09/13/2019 ??? metFORMIN (GLUCOPHAGE) 500 mg tablet Take 500 mg by mouth 2 times daily. 09/13/2019 ??? pantoprazole (PROTONIX) 40 mg tablet Take 40 mg by mouth 2 times daily. 09/13/2019 Past Medical History: Past Medical History: Diagnosis Date ??? Cerebral artery occlusion with cerebral infarction (HCC-CMS) ??? Cirrhosis (HCC-CMS) ??? Diabetes mellitus (HCC-CMS) ??? Hypertension ??? Thyroid disease Social History: Past Surgical History: Procedure Laterality Date ??? HERNIA REPAIR Social History Tobacco Use ??? Smoking status: Current Every Day Smoker Packs/day: 0.50 Years: 45.00 Pack years: 22.50 Types: Cigarettes ??? Smokeless tobacco: Never Used Substance Use Topics ??? Alcohol use: No Frequency: Never Family History: Family History Problem Relation Age of Onset ??? Cataract Mother ??? Diabetes Mother ??? Hypertension Father Review of Systems as pertinent: Physical: Vital Signs: BP 110/75 (BP Cuff Location: Left arm, BP Patient Position: Semi fowlers) Temp 36.5 ??C (97.7 ??F) (Tympanic) Resp 16 Ht 165.1 cm (65) Wt 90.7 kg (200 lb) SpO2 98% BMI 33.28kg/m?? Heart Examination: Cardiac Regularity: Regular Respiratory Examination: Respiratory Pattern: Regular Breath Sounds Right: Clear Breath Sounds Left: Clear Additional physical exam related to the proposed procedure, patient activity, disease state and treatment as pertinent: Assessment: Previous complications with sedation or anesthesia?: No Airway Concerns: None/NA Anesthesia Classification: ASA 2 Plan: Cerebral angiogram Fasting Time: Time of last liquid intake: 0305 Date of Last Liquid Intake: 09/14/19 Time of last solid intake: 1430 Date of last solid intake: 09/13/19 Patient Appropriate Candidate for Planned Sedation?: Yes Hernando Sheppard MD 09/14/2019 8:32 documented in this encounter Procedure Notes * Hernando Sheppard MD - 09/14/2019 1008 EDT IR Procedure Note Procedure: Right internal carotid angiogram Date Performed: 09/14/2019 Radiologist/Employment Supervisor(s): Charles Sedation/Anesthesia: IV Fentanyl/Versed, local lidocaine Time Out: A time-out was completed prior to procedure verifying correct patient, procedure, site, positioning, and special equipment if applicable. Estimated Blood Loss: Unless otherwise noted, there was no blood loss, specimens removed, cultures obtained, or drains retained. Specimens: N/A Fluoroscopy Time: See dictation Contrast Volume: See dictation Complications: None immediate Condition: Stable Post Procedure Diagnosis: Same Findings: Successful right internal carotid angiogram for evaluation of the right MCA Recommendations: -3 hours strict bedrest, right leg straight -regular diet, tylenol as needed for pain -discharge per anesthesia criteria Hernando Sheppard MD 09/14/2019 10:08 documented in this encounter Plan of Treatment Not on file documented as of this encounter Procedures Procedure Name Priority Date/Time Associated Diagnosis Comments IR CAROTID CEREBRAL BILATERAL Routine 09/14/2019 10:05 EDT Cerebral aneurysm, nonruptured POCT GLUCOSE, INTERFACED Routine 09/14/2019 7:48 EDT CREATININE STAT 09/14/2019 7:44 EDT documented in this encounter Results * IR CAROTID CEREBRAL BILATERAL (09/14/2019 10:05 EDT) Anatomical Region Laterality Modality Head Bilateral X-Ray Angiograph y 09/16/2019 16:2 0 EDT Impressions 09/16/2019 16:20 EDT 5 mm irregular aneurysm of the right middle cerebral artery bifurcation. 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 Jed Griffin Employment Supervisor: Dr. Hernando Sheppard Anesthesia: Local with sedation [...] over an introducer wire for a 5 Surinamese sheath. Heparinized saline infusion was administered through the sheath and the catheter used during this procedure. A 5 Surinamese Terumo angled glide catheter was advanced over [...] Postoperative Diagnosis: Same Surgeons: Dr. Jed Griffin Employment Supervisor: Dr. Hernando Sheppard Anesthesia: Local with sedation [...] over an introducer wire for a 5 Surinamese sheath.Heparinized saline infusion was administered through the sheath and thecatheter used during this procedure. A 5 Surinamese Terumo angled glide catheter was advanced over [...] middle cerebral artery bifurcation. Alfonzo Cobb MD IM IR ORDERABLES * POCT GLUCOSE, INTERFACED (09/14/2019 7:48 EDT) Glucose, POC 83 70 - 100 mg/dL 09/14/2019 7:48 EDT [facility] manager quality systems ID [id number] 09/14/2019 7:48 EDT [facility] SERVICES HN LAB POC COMMENT (GLUCOSE) Test Performed by Nursing Services 09/14/2019 7:48 EDT [facility] Blood CAPILLARY BLOOD / Unknown 09/14/2019 7:48 EDT 09/14/2019 7:48 EDT Alfonzo Cobb MD POINT OF CARE TEST ORDERABLES [facility] [address] [place] [id number] * CREATININE (09/14/2019 7:44 EDT) Creatinine 0.59 0.52 - 1.04 mg/dL 09/14/2019 8:07 EDT [facility] eGFR 101 >60 mL/min/1.7 3m2 09/14/2019 8:07 EDT [facility] Comment:eGFR calculated usin g CKD-EPI equation for non- Americans. Multiply eGFR by 1.16 for patients. Blood VENOUS BLOOD / Unknown Venipuncture / Unknown 09/14/2019 7:44 EDT 09/14/2019 7:48 EDT Fe Kirkpatrick PA-C CHEMISTRY & BLOO D GAS ORDERABLES [facility] [address] [place] [address] documented in this encounter Visit Diagnoses Diagnosis Cerebral aneurysm, nonruptured documented in this encounter Administered Medications Inactive Administered Medications - up to 3 most recent administrations Medication Order MAR Action Action Date Dose Rate Site acetaminophen (TYLENOL) suppository 650 mg 650 mg, rectal, EVERY 4 HOURS PRN, Starting on Fri09/14/19 at 1010, Until Fri09/14/19 at 1536, Pain, Routine acetaminophen (TYLENOL) tablet 650 mg 650 mg, oral, EVERY 4 HOURS PRN, Starting on Fri09/14/19 at 1010, Until Fri09/14/19 at 1536, Pain, Routine fentaNYL citrate (PF) injection 25-250 mcg 25-250 mcg, intravenous, ONCE PRN, 1 dose, Starting on Fri09/14/19 at 1011, Until Fri09/14/19 at 1012, Other, Radiology Procedure, Routine, Preprocedure Given 09/14/2019 10:12 EDT 200 mcg iohexoL (OMNIPAQUE 300) injection 150 mL 150 mL, intra-arterial, NOW X1, 1 dose, On Fri09/14/19 at 0945, Routine Given 09/14/2019 9:45 EDT 30 mL lidocaine (PF) 10 mg/mL (1 %) injection 2 mg 2 mg, intradermal, PRN, 4 doses, Starting on Fri09/14/19 at 0718, Until Fri09/14/19 at 1536, peripheral intravenous catheter placement, Routine, Preprocedure lidocaine-prilocaine (EMLA) 2.5-2.5 % cream topical, NOW X1, 1 dose, On Fri09/14/19 at 0745 Given 09/14/2019 7:50 EDT midazolam (PF) (VERSED) injection 0.5-10 mg 0.5-10 mg, intravenous, ONCE PRN, 1 dose, Starting on Fri09/14/19 at 0743, Until 09/14/19 at 0956, Sedation, Routine, Preprocedure Given 09/14/2019 9:56 EDT 5.5 mg nitroGLYCERIN (NITROGLYN) 2 % ointment 0.5 Inch 0.5 Inch, topical, NOW X1, 1 dose, On Tu09/14/19 at 0745, Routine Given 09/14/2019 7:50 EDT 0.5 Inches nitroGLYcerin 25 mg/250 mL (100 mcg/mL) infusion 200 mcg 200 mcg, intra-arterial, Once (Without Time Specified), 1 dose, Starting on e 09/14/19 at 0743, Until 09/14/19 at 1536, Routine ondansetron (PF) (ZOFRAN) injection 4 mg 4 mg, intravenous, ONCE PRN, 1 dose, Starting on Fri09/14/19 at 0718, Until 09/14/19 at 1536, Nausea, Routine, Preprocedure sodium chloride 0.9 % (NS) infusion 50 mL/hr, intravenous, CONTINUOUS, Starting on Fri09/14/19 at 0745, Until 09/14/19 at 1536, Routine, Preprocedure Rate Documented 09/14/2019 10:45 EDT 50 mL/hr 50 mL/hr New Bag 09/14/2019 7:45 EDT 50 mL/hr 50 mL/hr documented in this encounter Active and Recently Administered Medications Times are shown in EDT. Scheduled Medication Order 09/12/2019 09/13/2019 09/14/2019 heparin 1,000 unit/mL injection 5,000 Units 5,000 Units, intercatheter, NOW X1, 1 dose, On Fri09/14/19 at 0800, Routine 0941 (Not Given - Pr ovider: Axel Duron RN - Reason: Order parameters not met) iohexoL (OMNIPAQUE 300) injection 150 mL (COMPLETED) 150 mL, intra-arterial, NOW X1, 1 dose, On 09/14/19 at 0945, Routine 0945 (Given - Provid er: Bright Shabazz) lidocaine-prilocaine (EMLA) 2.5-2.5 % cream (COMPLETED) topical, NOW X1, 1 dose, On Fri09/14/19 at 0745 0750 (Given - Provid er: Marjan Jones RN) nitroGLYCERIN (NITROGLYN) 2 % ointment 0.5 Inch (COMPLETED) 0.5 Inch, topical, NOW X1, 1 dose, On e 09/14/19 at 0745, Routine 0750 (Given - Provid er: Marjan Jones RN) nitroGLYcerin 25 mg/250 mL (100 mcg/mL) infusion 200 mcg 200 mcg, intra-arterial, Once (Without Time Specified), 1 dose, Starting on Fri09/14/19 at 0743, Until Fri09/14/19 at 1536, Routine 0942 (Not Given - Pr ovider: Axel Duron RN - Reason: Order parameters not met) verapamiL (ISOPTIN) injection 2.5 mg 2.5 mg, intra-arterial, NOW X1, 1 dose, On Fri09/14/19 at 0800, Routine 0942 (Not Given - Pr ovider: Axel Duron RN - Reason: Order parameters not met) Continuous Medication Order 09/12/2019 09/13/2019 09/14/2019 sodium chloride 0.9 % (NS) infusion 50 mL/hr, intravenous, CONTINUOUS, Starting on Fri09/14/19 at 0745, Until Fri09/14/19 at 1536, Routine, Preprocedure 0745 (New Bag - Prov ider: Marjan Jones RN)1045 (Rate Documented - Provider: Erickson Pascual RN)1257 (Completed - Provider: Erickson Pascual RN) PRN Medication Order 09/12/2019 09/13/2019 09/14/2019 acetaminophen (TYLENOL) suppository 650 mg(Linked Group 1) 650 mg, rectal, EVERY 4 HOURS PRN, Starting on Fri09/14/19 at 1010, Until 09/14/19 at 1536, Pain, Routine acetaminophen (TYLENOL) tablet 650 mg(Linked Group 1) 650 mg, oral, EVERY 4 HOURS PRN, Starting on e 09/14/19 at 1010, Until 09/14/19 at 1536, Pain, Routine fentaNYL citrate (PF) injection 25-250 mcg (COMPLETED) 25-250 mcg, intravenous, ONCE PRN, 1 dose, Starting on Fri09/14/19 at 1011, Until e 09/14/19 at 1012, Other, Radiology Procedure, Routine, Preprocedure 1012 (Given - Provid er: Axel Duron RN) lidocaine (PF) 10 mg/mL (1 %) injection 2 mg 2 mg, intradermal, PRN, 4 doses, Starting on Fri09/14/19 at 0718, Until e 09/14/19 at 1536, peripheral intravenous catheter placement, Routine, Preprocedure midazolam (PF) (VERSED) injection 0.5-10 mg (COMPLETED) 0.5-10 mg, intravenous, ONCE PRN, 1 dose, Starting on Fri09/14/19 at 0743, Until Fri09/14/19 at 0956, Sedation, Routine, Preprocedure 0956 (Given - Provid er: Axel Duron RN) ondansetron (PF) (ZOFRAN) injection 4 mg 4 mg, intravenous, ONCE PRN, 1 dose, Starting on Fri09/14/19 at 0718, Until Fri09/14/19 at 1536, Nausea, Routine, Preprocedure Linked Groups Order Group 1: acetaminophen (TYLENOL) tablet 650 mgJump to med 650 mg, oral, EVERY 4 HOURS PRN, Starting on Fri09/14/19 at 1010, Until Fri09/14/19 at 1536, Pain, Routine Or acetaminophen (TYLENOL) suppository 650 mgJump to med 650 mg, rectal, EVERY 4 HOURS PRN, Starting on Fri09/14/19 at 1010, Until Fri09/14/19 at 1536, Pain, Routine documented in this encounter Orders Medications Ordered That Eddie ht Not Have Been Administered Count Last Ordered Date First Ordered Date acetaminophen (TYLENOL) suppository 650 mg 1 09/14/2019 acetaminophen (TYLENOL) tablet 650 mg 05/2019 heparin 1,000 unit/mL inject ion 5,000 Units 1 09/14/2019 lidocaine (PF) 10 mg/mL (1 % ) injection 2 mg 1 09/14/2019 lidocaine-prilocaine (EMLA) 2.5-2.5 % cream 09/14/2019 nitroGLYcerin 25 mg/250 mL ( 100 mcg/mL) infusion 200 mcg 09/14/2019 ondansetron (PF) (ZOFRAN) injection 4 mg 1 09/14/2019 verapamiL (ISOPTIN) injection 2.5 mg 1 05/2019 Discharge Count Last Ordered Date First Orde red Date DISCHARGE PATIENT 1 09/14/2019 documented in this encounter Care Teams Soup Mixer Relationship Specialty Start Date End Date Grant Lindsey MD [address] [place] [address] PCP - General 09/09/19 documented as of this encounter
--- OUTSIDE RECORDS SUMMARY | 2024-01-23 00:38 | XMS_ITS | Encounter Summary ---
Author Organization [facility] Address [address] [place] [address] Care Team Providers Care Enterprise Resource Planner Name Role Phone Grant Lindsey MD Primary Care Provider [phone] Reason for Visit * Reason Onset Date Comments Appointment Related 09/09/2019 Encounter Details Date Type Department Care Team (Late st Contact Info) Description 09/09/2019 Telephone [facility] Interventional Radiology - Main [place] [address] [place] [address] Justin Singh, RN [address] [place] [address] Appointment Related Social History Tobacco Use Types [...] Telephone Encounter - Justin Rae RN - 09/09/2019 0552 EDT Pre procedure phone call was made to patient regarding his/her upcoming appointment on Wednesday 09/13. 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 Will also call if they develop any fever, cough, flu/covid like symptoms etc Entrances into all [facility] Medical [facility] buildings and clinics will be restricted and everyone who enters will be asked the purpose of their visit to the medical center. If you require assistance, 1 visitor only COVID TESTING: ordered (pt will only be contacted for + results) -Do not eat any food after Midnight day of the procedure -Patient may have fat-free/protein free clear liquids until 05am (water, clear juices like apple orcranberry, black coffee or black tea, carbonated beverages, popsicles, gatorade). Jello and chickenbroth are NOT allowed. -After 05am, nothing by mouth (meds ok w/ small sips of h20) Medications - take prescribed medications. You should take as needed pain meds as needed. Meds to hold: Metformin morning of procedure -Novolog Take 50% of dose -Do not take Ibuprofen ( Motrin, Advil) for 24 hours prior to the procedure. -Do not take Naproxen ( Aleve) for 2 days before the procedure ( taking any of the above medications could cause a delay in your procedure) -Tylenol (acetaminophen) may be taken for pain. -If you are started on any new medications prior to this appointment, please call [facility] to update -Due to sedation you must have a commercial collections driver (bus or taxi is not allowed) - Bring a list of current medications/allergy list -Bring CPAP if applicable -Shower night before or morning of procedure -Leave all valuables/medications at home (if you use hearing aids, please bring them) pt verbalized understanding, all questions answered. IR clinic number given ([phone]) to call w/ any questions documented in this encounter Plan of Treatment Not on file documented as of this encounter Visit Diagnoses Not on filedocumented in this encounter Care Teams Enterprise Resource Planner Relationship Specialty Start Date End Date Grant Lindsey MD [address] [place] [address] PCP - General 09/09/19 documented as of this encounter
--- OUTSIDE RECORDS SUMMARY | 2024-01-23 00:38 | XMS_ITS | Encounter Summary ---
Author Organization [facility] Address [address] [place] [address] Care Team Providers Care Standards Analyst Name Role Phone Grant Lindsey MD Primary Care Provider [phone] Encounter Details Date Type Department Care Team (Late st Contact Info) Description 09/09/2019 Orders Only [facility] Interventional Radiology - Main [place] [address] [place] [address] Justin Singh, RN [address] [place] [address] Cerebral aneurysm, nonruptured (Primary Dx) Social History [...] Primary documented in this encounter Care Teams Standards Analyst Relationship Specialty Start Date End Date Grant Lindsey MD [address] [place] [address] PCP - General 09/09/19 documented as of this encounter
--- OUTSIDE RECORDS SUMMARY | 2024-01-23 00:38 | XMS_ITS | Encounter Summary ---
Author Organization [facility] Address [address] [place] [address] Care Team Providers Care Glove Brusher Name Role Phone Mehul Valladares DO Primary Care Provider Grant Lindsey MD Primary Care Provider [phone] Encounter Details Date Type Department Care Team (Late st Contact Info) Description 08/31/2019 Lab Requisition [facility] Pathology & Laboratory Medicine - [facility] [address] [place] [address] Erika Guillen MD [address] [place] [phone] Encounter for other general examination Social History Tobacco Use Types Packs/Day Years [...] Priority Date/Time Associated Diagnosis Comments SURGICAL PATHOLOGY Today 08/31/2019 8: 05 EDT Encounter for other general examination documented in this encounter Results * SURGICAL PATHOLOGY (08/31/2019 8:05 EDT) Final Diagnosis A. DUODENUM, BIOPSY: - Small intestinal mucosa with no specific pathologic features. B. STOMACH, BIOPSY: - Gastric fundic mucosa with no specific pathologic features. - Negative for Helicobacter pylori microorganisms on H&E stained sections. 09/01/2019 13:28 [facility] at 1328 Attestation There was significant resident/fellow involvement in the diagnostic evaluation of this case. By the signature below, the attending physician certifies that they have personally conducted a gross and/or microscopic examination of the described specimens and rendered or confirmed the above diagnosis. 09/01/2019 13:28 [facility] at 1328 Clinical History Epigastric pain, history of colon polyps 09/01/2019 13:28 [facility] Gross Description A. Received in formalin labelled with proper patient identification (initials P, K) and duodenal Bx are 3 fragments of pink tissue; each measuring 0.2 x 0.2 x 0.2 cm. The specimens are submitted entirely in A1. B. Received in formalin labelled with proper patient identification (initials P, K) and gastric Bx are 2 fragments of pink tissue; each measuring 0.2 x 0.2 x 0.2 cm. The specimens are submitted entirely in B1. 08/31/2019 16:35 09/01/2019 13:28 [facility] Resident/Alberto w: Clark Potter MD 09/01/2019 13:28 EDT [facility] Scanned Images 09/01/2019 13:28 EDT [facility] Tissue ENTIRE STOMACH / Unknown 08/31/2019 8:05 EDT 08/31/2019 16:30 EDT Tissue specimen (specimen) STOMACH STRUCTURE / Unknown 08/31/2019 8:05 EDT 08/31/2019 16:30 EDT Erika Guillen MD PATHOLOGY ORDERABLES [facility] [address] [place] [address] documented in this encounter Visit Diagnoses Diagnosis Encounter for other general examination documented in this encounter Care Teams Glove Brusher Relationship Specialty Start Date End Date Mehul Valladares DO PCP - General 06/25/18 09/08/19 Grant Lindsey MD [facility] [place] [address] PCP - General 09/09/19 documented as of this encounter
--- OUTSIDE RECORDS SUMMARY | 2024-01-23 00:39 | XMS_ITS | Encounter Summary ---
Author Organization [facility] Address [address] [place] [address] Care Team Providers Care Manufacturing Laborer Name Role Phone Jennie Resendiz MD Primary Care Provider [phone] Encounter Details Date Type Department Care Team (Late st Contact Info) Description 11/13/2009 Results Only [facility] - [facility] [address] [place] [address] Héctor Shannon MD [address] [place] [phone] Social History Tobacco Use Types Packs/Day Years Used Date Smoking Tobacco: Never Assessed Sex and Gender Information Value Date Recorded Sex Assigned at Not on file Gender Identity Female 09/09/2019 13:11 EDT Sexual Orientation Not on file documented as of this encounter Plan of Treatment Not on file documented as of this encounter Procedures Procedure Name Priority Date/Time Associated Diagnosis Comments SURGICAL PATHOLOGY Routine 11/13/2009 0:00 EDT documented in this encounter Results * SURGICAL PATHOLOGY (11/13/2009 0:00 EDT) Pathology Report: SURGICAL PATHOLOGY REPORT ? Reports generated via electronic interface contain original data; ? however they are lacking the format of the original report. ? Caution should be taken when reading/interpreti ng unformatted reports. ? Name: ? KALLIE WHITE ? Accession #: ? [id number] ? : ? 1960 (Age: 49) ??F ? Collect Date: ? 11/13/2009 ? Location: ? [facility] ? Receive Date: ? 11/14/2009 ? Provider: HÉCTOR SHANNON MD ? Copy to: LIZETTE W BESCH CUSTOMER ACCOUNT EXECUTIVE ? Final Pathologic Diagnosis: ? Gallbladder, cholecystectomy: ? - Chronic cholecystitis. ? Document reviewed and electronically signed by: ? Radha Francois MD ? Report ??Date: 11/16/2009 15:59 ? By the signature above, the attending physician certifies that he/she has ? personally conducted a gross and/or microscopic examination of the described ? specimens and rendered or confirmed the above diagnosis. ? Specimen(s) Received: ? Gallbladder ? Clinical History: ? Biliary dyskinesia ? Gross Description: ? Received in formalin labelled DermaAdanKallie and gallbladder is an ?? 8.0 cm in length by 2.7 cm in diameter gallbladder. ??The cystic duct measures ?? 0.4 cm in length and 0.2 cm in circumference. ??The cystic duct margin is inked ?? black. ??There are no choleliths. ??The mucosa is florian-green, stained with bile, ?? and velvety. ??The wall of the gallbladder is 0.2 cm in average thickness. ??The ?? serosa is white-green and smooth. ??Sections from the upper gallbladder and lower gallbladder and the cystic duct margin (black inked) are submitted in one ? cassette. ??(Dr. Ovalles)/tammi ? End of Report ? [facility] 11/13/2009 11/14/2009 9:5 7 EDT Héctor Shannon MD PATHOLOGY ORDERABLE S [facility] [address] [place] [address] documented in this encounter Visit Diagnoses Not on filedocumented in this encounter Care Teams Manufacturing Laborer Relationship Specialty Start Date End Date Jennie Resendiz MD [address] [place] [phone] PCP - General 11/15/09 06/23/18 documented as of this encounter
--- OUTSIDE RECORDS SUMMARY | 2024-01-23 00:39 | XMS_ITS | Encounter Summary ---
Author Organization [facility] Address [address] [place] [address] Care Team Providers Care Rehabilitation Services Counselor Name Role Phone Jennie Resendiz MD Primary Care Provider [phone] Mehul Valladares DO Primary Care Provider Reason for Visit * Reason Onset Date Comments Appointment Related 06/22/2018 Encounter Details Date Type Department Care Team (Late st Contact Info) Description 06/22/2018 Telephone [facility] Ophthalmology - [facility] [address] [place], [place] [id number] Rigoberto Dos Santos MD [address] [facility], [address] [place] [address] Appointment Related Social History Tobacco Use Types Packs/Day Years Used Date Smoking Tobacco: Never Assessed AUDIT-C Answer Date Recorded Frequency of Alcohol Consumption Never 06/25/2018 Average Number of Drinks Not on file 019 Frequency of Binge Drinking Not on file 06/12 Sex and Gender Information Value Date Recorded Sex Assigned at Not on file Gender Identity Female 09/09/2019 13:11 EDT Sexual Orientation Not on file documented as of this encounter Miscellaneous Notes * Telephone Encounter - Lorrie Norris - 06/22/2018 1056 EDT Caregiver calling to confirm NPV for 3/14 at 8 am documented in this encounter Plan of Treatment Not on file documented as of this encounter Visit Diagnoses Not on filedocumented in this encounter Care Teams Rehabilitation Services Counselor Relationship Specialty Start Date End Date Jennie Resendiz MD [address] [phone] PCP - General 11/15/09 06/23/18 Mehul Valladares DO [address] [facility] [address] [place] [address] PCP - General 06/25/18 09/08/19 documented as of this encounter
--- OUTSIDE RECORDS SUMMARY | 2024-01-23 00:39 | XMS_ITS | Encounter Summary ---
Author Organization [facility] Address [address] [place] [address] Care Team Providers Care Nematologist Name Role Phone Unavailable Primary Care Provider Unavailabl e Encounter Details Date Type Department Care Team (Late st Contact Info) Description 05/13/2006 14:47 EST Hospital Encounter [facility] [address] [place] [address] Gayathri Longoria MD [address] [place] [address] Adrianne Lewis MD [address] [place] [address], [address] [place] [address] Social History Tobacco Use Types Packs/Day Years [...] 16:17 EDT documented as of this encounter Plan of Treatment Not on file documented as of this encounter Procedures Procedure Name Priority Date/Time Associated Diagnosis Comments TSH Routine 05/13/2006 15:58 EST CK Routine 05/13/2006 15:58 EST COMPREHENSIVE METABOLIC PANEL (CMP) Routine 05/13/2006 15:58 EST documented in this encounter Results * TSH (05/13/2006 15:58 EST) TSH 2.36 0.35 - 5.00 uIU/mL [facility] 05/13/2006 15:5 8 EST 05/13/2006 19:15 EST Adrianne Lewis MD CHEMISTRY & BLOOD GAS ORDERABLES [facility] [address] [place] [address] * COMPREHENSIVE METABOLIC PANEL (05/13/2006 15:58 EST) Potassium 4.1 3.5 - 5.0 mEq/L [facility] Sodium 137 136 - 145 mEq/L [facility] Chloride 103 96 - 110 mEq/L [facility] CO2 24 24 - 32 mEq/L [facility] Total Alkaline Phosphatase 78 38 - 126 U/L [facility] Bilirubin, Total <0.5 0.2 - 1.3 mg/dl [facility] AST 31 15 - 46 U/L [facility] ALT 38 9 - 52 U/L [facility] Albumin 4.8 3.4 - 4.9 g/dl [facility] Total Protein 7.7 6.5 - 8.3 g/dl [facility] Creatinine 1.11 0.7 - 1.5 mg/dl [facility] GFR, Calculated 56 ml/min/1.7 3m2 [facility] BUN 11 10 - 26 mg/dl [facility] Calcium 9.8 8.5 - 10.5 mg/dl [facility] Calculated Calcium 9.4 8.5 - 10.5 mg/dl [facility] Glucose, Serum 84 70 - 100 mg/dl [facility] Fasting? No [facility] Albumin/Globulin Ratio 1.7 [facility] 05/13/2006 15:5 8 EST 05/13/2006 19:15 EST Adrianne Lewis MD CHEMISTRY & BLOOD GAS ORDERABLES Performing Organization Address City/[facility] Co de Phone Number [facility] [address] [place] [address] * CK (05/13/2006 15:58 EST) CK 85 30 - 135 U/L [facility] 05/13/2006 15:5 8 EST 05/13/2006 19:15 EST Adrianne Lewis MD CHEMISTRY & BLOOD GAS ORDERABLES Performing Organization Address City/[facility] Co de Phone Number [facility] [address] [place] [address] documented in this encounter Visit Diagnoses Not on filedocumented in this encounter
--- OUTSIDE RECORDS SUMMARY | 2024-01-23 00:39 | XMS_ITS | Encounter Summary ---
Author Organization [facility] Address [address] [place] [address] Care Team Providers Care Results Technician Name Role Phone Chikiskj Mehul Brittney SMITH Primary Care Provider Encounter Details Date Type Department Care Team (Late st Contact Info) Description 07/24/2018 16:17 EDT - 07/24/2018 23:59 EDT Hospital Encounter [facility] [address] [place] [address] Rigoberto Dos Santos MD [address] [facility], [address] [place] [phone] Discharge Disposition: Auto Discharge Social History Tobacco Use Types Packs/Day Years [...] on file documented as of this encounter Discharge Diagnoses Diagnosis H57.12 Ocular pain, left eye-H57.12[ICD-10-CM] H53.40 Unspecified visual field defects-H53.40[ICD-10-CM] documented in this encounter Medications at Time of Discharge Medication Sig Dispensed Refills Start Date End Date carvedilol (COREG) 6.25 mg tablet Take 6.25 mg by mouth 2 times daily. cyanocobalamin (VITAMIN B-12) 500 mcg tablet Take 1,000 mcg by mouth daily. gabapentin (NEURONTIN) 800 mg tablet Take [...] Discharge Disposition Disposition Code Departure Means Destination Auto Discharge Home documented in this encounter Plan of Treatment Not on file documented as of this encounter Visit Diagnoses Not on filedocumented in this encounter Care Teams Results Technician Relationship Specialty Start Date End Date Mehul Valladares DO PCP - General 06/25/18 09/08/19 documented as of this encounter
--- OUTSIDE RECORDS SUMMARY | 2024-01-23 00:39 | XMS_ITS | Encounter Summary ---
Author Organization [facility] Address [address] [place] [address] Care Team Providers Care Online Services Manager Name Role Phone Unavailable Primary Care Provider Unavailabl e Encounter Details Date Type Department Care Team (Late st Contact Info) Description 05/08/2001 Results Only [facility] [address] [place] [address] Héctor Bush MD [address] [place] [address] Social History Tobacco Use Types Packs/Day Years [...] Date/Time Associated Diagnosis Comments SURGICAL PATHOLOGY Routine 05/08/2001 0:00 EST documented in this encounter Results * SURGICAL PATHOLOGY (05/08/2001 0:00 EST) Pathology Report: SURGICAL PATHOLOGY REPORT Reports generated via electronic interface contain original data; however they are lacking the format of the original report. Caution should be taken when reading/interpreti ng unformatted reports. Name: ? KALLIE DARLING ? Accession #: ? [id number] ? : ? 1960 (Age: 40) ??F ? Collect Date: ? 05/08/2001 ? Location: ? [facility] ? Receive Date: ? 05/08/2001 ? Provider: HÉCTOR BUSH MD Copy to: LIZETTE GALINDO MD ? Final Pathologic Diagnosis: ? Esophagus, 35.0 cm, biopsies: 1. ?Gastric and squamous mucosa with reflux esophagitis. 2. ?No evidence of intestinal metaplasia or dysplasia. 3. ?No Helicobacter pylori-like organisms identified on H & E stain. Document reviewed and electronically signed by: Carlie Lewis MD Report ??Date: 05/12/2001 16:42 By the signature above, the attending physician certifies that he/she has personally conducted a gross and/or microscopic examination of the described specimens and rendered or confirmed the above diagnosis. Specimen(s) Received: ? Bx esophagus at 35 cm Clinical History: ? GERD Gross Description: ? Received in [place]' s fixative labelled Education Director and bx esophagus 35 cm are multiple, irregularly shaped, slightly lobular, soft tissue fragments that range from 0.2 x 0.2 x 0.1 cm to 0.3 x 0.2 x 0.1 cm. ??The specimen is submitted entirely in cassettes (A1) and (A2). ??(Betty Vang)/dtl End of Report [facility] 05/08/2001 05/08/2001 15: 12 EST Héctor Bush MD [facility]Y [facility] [address] [place] [address] documented in this encounter Visit Diagnoses Not on filedocumented in this encounter
--- OUTSIDE RECORDS SUMMARY | 2024-01-23 00:39 | XMS_ITS | Encounter Summary ---
Author Organization [facility] Address [address] [place] [address] Care Team Providers Care Rock Duster Name Role Phone Jacquelyn Mehul Brittney SMITH Primary Care Provider [phone] Reason for Referral * Consult (Routine/Next Available) - Denied Specialty Diagnoses / Procedures Referred By Contmisael sparks Referred To Contact Neurosurgery Diagnoses Aneurysm of middle cerebral artery Rigoberto Dos Santos MD [address] [place] [phone] Alfonzo Cobb MD [address] [phone] Referral ID Status Reason Start Date Expiration Date V isits Requested Visits Authorized [id number] Denied Specialty Services Required 07/31/2018 1 0 Question Answer Reason for Request: Incidental finding of Right MCA aneurysm Encounter Details Date Type Department Care Team (Late st Contact Info) Description 07/31/2018 Orders Only [facility] Ophthalmology - [address] [address] Rigoberto Dos Santos MD [address] [place] [phone] Aneurysm of middle cerebral artery (Primary Dx) Social History Tobacco Use Types [...] as of this encounter Plan of Treatment Scheduled Referrals Name Type Priority Associated Diagnoses Order Schedule AMB CONS/FOLLOW UP NEUROSURGERY Outpatient Referral Routine Aneurysm of Middle Cerebral Artery Ordered: 07/31/2018 documented as of this encounter Visit Diagnoses Diagnosis Aneurysm of middle cerebral artery- Primary Cerebral aneurysm, nonruptured documented in this encounter Care Teams Rock Duster Relationship Specialty Start Date End Date Mehul Valladares DO PCP - General 06/25/18 09/08/19 documented as of this encounter
--- OUTSIDE RECORDS SUMMARY | 2024-01-23 00:39 | XMS_ITS | Encounter Summary ---
Author Organization [facility] Address [address] [place] [address] Care Team Providers Care Lumber Kiln Operator Name Role Phone Jennie Resendiz MD Primary Care Provider [phone] Reason for Visit * Reason Onset Date Comments Appointment Related 05/20/2018 Transportati on arrangements need to be made with [facility] Encounter Details Date Type Department Care Team (Late st Contact Info) Description 05/20/2018 Telephone [facility] [address] [place] [address] Rigoberto Dos Santos MD [address] [facility], [address] [place] [address] Appointment Related (Transportation arrangements need to be made with [facility]) Social History Tobacco Use Types Packs/Day Years Used Date Smoking Tobacco: Never Assessed Sex and Gender Information Value Date Recorded Sex Assigned at Not on file Gender Identity Female 09/09/2019 13:11 EDT Sexual Orientation Not on file documented as of this encounter Miscellaneous Notes * Telephone Encounter - Marium Loo - 05/20/2018 1134 EST Patient called to reschedule the appointment she missed with Dr. Dos Santos. She has scheduled 06/25/18. She said that arrangements need to be made for a ride with [facility] and she has requested that Santos setthat up. Please call her if there are any questions. documented in this encounter Plan of Treatment Not on file documented as of this encounter Visit Diagnoses Not on filedocumented in this encounter Care Teams Lumber Kiln Operator Relationship Specialty Start Date End Date Jennie Resendiz MD [address] [place] [phone] PCP - General 11/15/09 06/23/18 documented as of this encounter
--- OUTSIDE RECORDS SUMMARY | 2024-01-23 00:39 | XMS_ITS | Encounter Summary ---
Author Organization [facility] Address [address] [place] [address] Care Team Providers Care Consumer Sales Representative Name Role Phone Mehul Valladares DO Primary Care Provider [phone] Encounter Details Date Type Department Care Team (Late st Contact Info) Description 10/01/2018 Orders Only [facility] Ophthalmology - Main [place] [address] [place], [place] [phone] Rigoberto Dos Santos MD [address] [facility], [address] [place] [address] Aneurysm (arteriovenous) of coronary vessels (Primary Dx) Social History Tobacco Use Types [...] of this encounter Visit Diagnoses Diagnosis 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
--- OUTSIDE RECORDS SUMMARY | 2024-01-23 00:39 | XMS_ITS | Encounter Summary ---
Author Organization [facility] Address [address] [place] [address] Care Team Providers Care Material Expediter Name Role Phone ChikisMehul underwood Brittney SMITH Primary Care Provider [phone] Reason for Visit * Reason Onset Date Comments Other 07/29/2018 Encounter Details Date Type Department Care Team (Late st Contact Info) Description 07/29/2018 Telephone [facility] Ophthalmology - [facility] [address] [place], [place] [address] Rigoberto Dos Santos MD [address] [facility], [address] [place] [address] Other Social History Tobacco Use [...] encounter Miscellaneous Notes * Telephone Encounter - Glory Castillo - 07/29/2018 0824 EDT Pt calling wanting to know what the results of her ct scan that she had done last week please call her home number @ [phone] documented in this encounter Plan of Treatment Not on file documented as of this encounter Visit Diagnoses Not on filedocumented in this encounter Care Teams Material Expediter Relationship Specialty Start Date End Date Mehul Valladares DO PCP - General 06/25/18 09/08/19 documented as of this encounter
--- OUTSIDE RECORDS SUMMARY | 2024-01-23 00:39 | XMS_ITS | Encounter Summary ---
Author Organization [facility] Address [address] [place] [address] Care Team Providers Care Brim Edge Trimmer Name Role Phone Jennie Resendiz MD Primary Care Provider [phone] Encounter Details Date Type Department Care Team (Latest Contact Info) Description 10/06/2017 9:06 EDT - 10/06/2017 23:59 EDT Hospital Encounter [address] [address] Unknown, Provider, Discharge Disposition: Home or Self Care Social History Tobacco Use Types Packs/Day Years Used Date Smoking Tobacco: Never Assessed Sex and Gender Information Value Date Recorded Sex Assigned at Not on file Gender Identity Female 09/09/2019 13:11 EDT Sexual Orientation Not on file documented as of this encounter Discharge Disposition Disposition Code Departure Means Destination Home or Self Nursing Home documented in this encounter Plan of Treatment Not on file documented as of this encounter Visit Diagnoses Not on filedocumented in this encounter Care Teams Brim Edge Trimmer Relationship Specialty Start Date End Date Jennie Resendiz MD [address] [place] [address] [address] [place] [phone] PCP - General 11/15/09 06/23/18 documented as of this encounter
--- OUTSIDE RECORDS SUMMARY | 2024-01-23 00:39 | XMS_ITS | Encounter Summary ---
Author Organization [facility] Address [address] [place] [address] Care Team Providers Care Laborer Dairy Farm Name Role Phone Jennie Resendiz MD Primary Care Provider [phone] Reason for Visit * Reason Onset Date Comments New/Evolving Symptoms 11/10/2013 Referral Request 11/10/2013 Encounter Details Date Type Department Care Team (Late st Contact Info) Description 11/10/2013 Orders Only [facility] Neurophysiology - [facility] [place] [address] [place] [address] Cj Truong MD [address] [place] [address] [address] [place] [phone] Unspecified ptosis of eyelid (Primary Dx) Social History Tobacco Use Types Packs/Day Years Used Date Smoking Tobacco: Never Assessed Sex and Gender Information Value Date Recorded Sex Assigned at Not on file Gender Identity Female 09/09/2019 13:11 EDT Sexual Orientation Not on file documented as of this encounter Plan of Treatment Not on file documented as of this encounter Visit Diagnoses Diagnosis Unspecified ptosis of eyelid- Primary documented in this encounter Care Teams Laborer Dairy Farm Relationship Specialty Start Date End Date Jennie Resendiz MD [facility] [address] [phone] PCP - General 11/15/09 06/23/18 documented as of this encounter
--- OUTSIDE RECORDS SUMMARY | 2024-01-23 00:39 | XMS_ITS | Encounter Summary ---
Author Organization [facility] Address [address] [place] [address] Care Team Providers Care Cement Breaker Name Role Phone Jennie Resendiz MD Primary Care Provider [phone] Encounter Details Date Type Department Care Team (Late st Contact Info) Description 03/10/2007 Results Only [facility] [address] [place] [address] Lynnette Olsen, EMERGENCY VETERINARY TECHNICIAN [address] [phone] Social History Tobacco Use Types Packs/Day Years Used Date Smoking Tobacco: Never Assessed Sex and Gender Information Value Date Recorded Sex Assigned at Not on file Gender Identity Female 09/09/2019 13:11 EDT Sexual Orientation Not on file documented as of this encounter Plan of Treatment Not on file documented as of this encounter Procedures Procedure Name Priority Date/Time Associated Diagnosis Comments CYTOPATHOLOGY Routine 03/10/2007 0:00 EST documented in this encounter Results * CYTOPATHOLOGY (03/10/2007 0:00 EST) Pathology Report: CYTOPATHOLOGY REPORT Reports generated via electronic interface contain original data; however they are lacking the format of the original report. Caution should be taken when reading/interpreti ng unformatted reports. Name: ? NORRIE, KALLIE ? Accession #: ? [id number] : ? 1960 (Age: 46) ??F ?Collect Date: ? 03/10/2007 Location: ? [facility] ? Receive Date: ? 03/12/2007 Provider: ?LYNNETTE OLSEN EMERGENCY VETERINARY TECHNICIAN Copy to: ? Specimen/Source: ?ThinPrep Pap Test, Vagina, processed on Giga[employer]aces ThinPrep Imaging System, with manual evaluation Last Menstrual Period: ? 1993 Treatment History: ? Hysterectomy: 1994 Other: ? HPVA - HPV testing requested if ASC-US on the current ThinPrep Pap test. ? SPECIMEN ADEQUACY ? Satisfactory for Evaluation - assessment of transformation zone component not applicable ( e.g. atrophy, vaginal sample, hysterectomy) GENERAL CATEGORIZATION ? Negative for Intraepithelial Lesion or Malignancy ? Document reviewed and electronically signed by: ? SOLO Jacobsen(ASCP) ? Report Date: ??03/13/2007 12:57 End of Report PETTY ARGUETA 03/10/2007 03/12/2007 Lynnette Olsen NP PATHOLOGY ORDERABLES PETTY ARGUETA [address] [place] [address] documented in this encounter Visit Diagnoses Not on filedocumented in this encounter Care Teams Cement Breaker Relationship Specialty Start Date End Date Jennie Resendiz MD [address] [place] [phone] PCP - General 11/15/09 06/23/18 documented as of this encounter
--- OUTSIDE RECORDS SUMMARY | 2024-01-23 00:39 | XMS_ITS | Encounter Summary ---
Author Organization [facility] Address [address] [place] [address] Care Team Providers Care Antenna Installer Name Role Phone Unavailable Primary Care Provider Unavailabl e Encounter Details Date Type Department Care Team (Late st Contact Info) Description 12/15/2005 Office Visit [facility] - [facility] [address] [place] [address] Jed Boyd MD [address] [facility], [address] [place] [address] Social History Tobacco Use Types Packs/Day Years Used Date Smoking Tobacco: Never Assessed Sex and Gender Information Value Date Recorded Sex Assigned at Not on file Gender Identity Female 09/09/2019 13:11 EDT Sexual Orientation Not on file documented as of this encounter Progress Notes * Jed Boyd MD - 06/07/2009 2865 EST Department - Physician Summary Registration Date/Time: 12/15/2005 10:35 Arrived- By private vehicle. Historian - patient. HISTORY OF PRESENT ILLNESS Chief Complaint- Injury to the right wrist. The injury happened last night about 9 PM. Fell (FOOSH while playing). at home. Denies any assault. Patient is experiencing severe pain. No other injury. REVIEW OF SYSTEMS The patient has had swelling. She has had numbness of the right hand (mild). No skin laceration. PAST HISTORY See nurses notes. She has had a prior injury to the same area (fracture without any previous surgery at this site). Medications: The patient's medications have been reviewed. See nurses notes. SOCIAL HISTORY Is a local resident. The patient lives with spouse. ADDITIONAL NOTES The nursing notes have been reviewed. PHYSICAL EXAM Appearance: Alert. Oriented X3. No acute distress. Vital Signs: Have been reviewed - Head: Head atraumatic. Eyes: Pupils equal, round and reactive to light. Neck: Normal inspection. Respiratory: No respiratory distress. Skin: Skin intact. Skin warm and dry. Extremities: Right wrist: severe tenderness andmoderate swelling located in the area of the radial styloid and anatomic snuffbox and dorsal aspect of the wrist. Limited ROM secondary to pain. No laceration, ecchymosis or deformity. No signs of infection present. No hand injury. Extremities otherwise negative. Neuro, Vascular and Tendons: Sensory deficit (subjective decrease in light touch in right hand fingers). Neuro: Oriented X 3. No motor deficit. No sensory deficit. LABS, X-RAYS, AND EKG Rt Wrist X-ray: No fracture. Normal alignment.Old sclerosis on distal radius. Views: AP, lateral and radial deviation. Technique: good. The X-rays were interpreted by the radiologist and contemporaneously by me and discussed with the radiologist. PROGRESS AND PROCEDURES Splint Application: Plaster thumb spica splint applied to right wrist. Splint applied by tech. Reassessed extremity following splint application. Neurovascular intact. Disposition: Discharged home in improved condition. CLINICAL IMPRESSION Sprained right wrist . Scaphoid fracture right wrist. (possibly). INSTRUCTIONS Apply ice intermittently (15-20 minutes at a time 4-6 times daily) for two days. Elevate affected areas above chest level until better. Wear plaster splint until better. Warnings: GENERAL WARNINGS: Return or contactyour physician immediately if your condition worsens or changes unexpectedly, if not improving as expected, or if other problems arise. Prescription Medications: Vicodin 5 mg: take 1-2 orally every 6 hours as needed for pain. Dispense twenty (20). No refill. Generic substitute OK. OTC Medications: Motrin IB 200 mg (available over the counter): take 3 orally every 6 hours as needed for pain. Follow-up: Follow up with Doctor Boland for repeat exam and x-rays in about eight days even if well. (Electronically signed by Jed Boyd M.D. 12/16/2005 17:25) Department - Nursing Summary Registration Date/Time: 12/15/2005 10:35 TRIAGE Initial Assessment Triage time 10:35 Dec 15 2005 . Acuity: LEVEL 4. BP: 160 / 84. HR: 83. RR: 14. Temp: 35.9 tympanic. Alert. --1041 Kaila Rizzo R.N. Medications Advair Oral Inhaler and Albuterol Inhaler. Fluoxetine. ( lactaid). Nexium. Singulair. ( Spiriva). Vitamins -. ( Zetia). --1041 Kaila Rizzo R.N. Allergies ASPIRIN. --1041 Kaila Rizzo R.N. History Chief Complaint: INJURY TO RIGHT WRIST. This occurred last night. Mechanism of injury: fell (while fooling around with friend). Pain level now: 01/21. Treatment FINANCIAL REPORTING MANAGER: Symptoms did not improve after treatment. ( Aleve). PAST HX: Asthma. Depression. Gastroesophageal reflux disease. Had hysterectomy. ( prior R wrist surg, L thumb surg). SOCIAL HX: Smoker: 1-2 packs per day. No alcohol use. No report of abuse. Arrived by private vehicle and accompanied by friend. Historian: patient. --1041 Kaila Rizzo R.N. NURSING PROGRESS NOTES Progress Call light placed in reach. Side rails up x 1. Bed placed in lowest position. Brakes of bed on. --1043 Shania Chawla VICODIN 5 mg 2 tab PO. . --1110 Meagan Wooten R.N. Patient transported to radiology by stretcher with tech. --1110 Meagan Wooten R.N. Patient returned from radiology by stretcher with tech. --1119 Meagan Wooten R.N. Short thumb spica plaster splint applied to right thumb; distal pulses intact, sensation intact andmotor function within normal limits. --1147 Shania Chawla ( Fingers right hand pink/warm/dry.). --1235 Ketty Valencia R.N. DISPOSITION / DISCHARGE Condition at departure: improved. Fall risk assessment completed. No fall risk identified. No learning barriers present. Discharge instructions reviewed with the patient. Reviewed medication side effects, precautions, dosing and course; prescription (s) given to the patient. Reviewed referrals (PMDin eight days). Activity restrictions (minimal use of injured extremity) reviewed. Patient verbalized understanding. Written instructions provided inEnglish. The patient was discharged home and accompanied by spouse. The patient left the Emergency Department ambulatory and via private vehicle. Spouse driving. --5428 Ismael Mendenhall R.N., E.M.T. Elma Rickards R.N. Cindy Taylor, R.N. Locked/Released at 12/15/2005 12:38 by Ketty Valencia R.N. documented in this encounter Plan of Treatment Not on file documented as of this encounter Visit Diagnoses Not on filedocumented in this encounter
--- OUTSIDE RECORDS SUMMARY | 2024-01-23 00:39 | XMS_ITS | Encounter Summary ---
Author Organization [facility] Address [address] [place] [address] Care Team Providers Care Development Manager Name Role Phone Jennie Resendiz MD Primary Care Provider [phone] Encounter Details Date Type Department Care Team (Late st Contact Info) Description 10/20/2014 Results Only [facility] [phone] Malu Galeano APRN [address] [place], [place] [phone] Social History Tobacco Use Types Packs/Day Years Used Date Smoking Tobacco: Never Assessed Sex and Gender Information Value Date Recorded Sex Assigned at Not on file Gender Identity Female 09/09/2019 13:11 EDT Sexual Orientation Not on file documented as of this encounter Plan of Treatment Not on file documented as of this encounter Procedures Procedure Name Priority Date/Time Associated Diagnosis Comments PAP TEST- RESULT ONLY Routine 10/20/2014 0:00 EDT documented in this encounter Results * PAP TEST- RESULT ONLY (10/20/2014 0:00 EDT) Pathology Report: CYTOPATHOLOGY REPORT Reports generated via electronic interface contain original data; however they are lacking the format of the original report. Caution should be taken when reading/interpreti ng unformatted reports. Name: ? FISH PITCHERKALLIE DUENAS ? Accession #: ? [id number] ? : ? 1960 (Age: 54) ??F ?Collect Date: ? 10/20/2014 ? Location: ? [facility] ? Receive Date: ? 10/24/2014 ? Provider: MALU GALEANO APRN Copy to: ? Final Report SPECIMEN ADEQUACY ? Satisfactory for Evaluation - assessment of transformation zone component not applicable ( e.g. atrophy, vaginal sample, hysterectomy) GENERAL CATEGORIZATION ? Negative for Intraepithelial Lesion or Malignancy ?? Specimen/Source: ??Pap Test, Cervix/Endocervix, ThinPrep Imaging System with manual evaluation Document reviewed and electronically signed by: ? SOLO Arriaga(ASCP) ? Report ??Date: 11/01/2014 13:14 HPV with Pap Test ? Date Ordered: ? 11/01/2014 ? Status: ?? Signed Out ?Date Complete: ? 11/02/2014 ? By: ??System Interface ? Date Reported: ? 11/02/2014 ? Interpretation RESULT: Negative for HPV. No E6 or E7 mRNA is detected from HPV types 16,18,31,33,35, 39,45,51,52,56,58, 59,66, and 68 by transcription specialist mediated amplification. Comments Document reviewed and electronically signed by: ? System Interface ? Report date: 11/02/2014 By the signature above, the attending physician certifies that he/she has personally conducted a gross and/or microscopic examination of the described specimens and rendered or confirmed the above diagnosis. End of Report [facility] 10/20/2014 10/24/2014 Malu Galeano APRN PATHOLOGY ORDERABLES Performing Organization Address City/State/[facility] Co de Phone Number [facility] [address] [place] [address] documented in this encounter Visit Diagnoses Not on filedocumented in this encounter Care Teams Development Manager Relationship Specialty Start Date End Date Jennie Resendiz MD [address] [place] [phone] PCP - General 11/15/09 06/23/18 documented as of this encounter
--- OUTSIDE RECORDS SUMMARY | 2024-01-23 00:39 | XMS_ITS | Encounter Summary ---
Author Organization [facility] Address [address] [place] [address] Care Team Providers Care Lace Inspector Name Role Phone ChikisMehul underwood Brittney SMITH Primary Care Provider [phone] Reason for Visit * Reason Onset Date Comments Other 09/29/2018 Encounter Details Date Type Department Care Team (Late st Contact Info) Description 09/29/2018 Telephone [facility] Ophthalmology - [facility] [address] [place], [place] [id number] Rigoberto Dos Santos MD [address] [facility], [address] [place] [address] Other Social History Tobacco Use [...] encounter Miscellaneous Notes * Telephone Encounter - Ethel Vasquez RN - 09/29/[address] Dos Santos another consult was re-ordered. documented in this encounter Plan of Treatment Not on file documented as of this encounter Visit Diagnoses Not on filedocumented in this encounter Care Teams Lace Inspector Relationship Specialty Start Date End Date Mehul Valladares DO PCP - General 06/25/18 09/08/19 documented as of this encounter
--- OUTSIDE RECORDS SUMMARY | 2024-01-23 00:39 | XMS_ITS | Encounter Summary ---
Author Organization [facility] Address [address] [place] [address] Care Team Providers Care Auto Body Detailer Name Role Phone Jennie Resendiz MD Primary Care Provider [phone] Encounter Details Date Type Department Care Team (Late st Contact Info) Description 10/06/2017 Results Only [facility] [phone] Ana Heller, DO [address] [address] Social History Tobacco Use Types Packs/Day Years [...] Date/Time Associated Diagnosis Comments SURGICAL PATHOLOGY Routine 10/06/2017 15 :49 EDT documented in this encounter Results * SURGICAL PATHOLOGY (10/06/2017 15:49 EDT) Pathology Report: SURGICAL PATHOLOGY REPORT Reports generated via electronic interface contain original data; however they are lacking the format of the original report. Caution should be taken when reading/interpret ing unformatted reports. Name: ? MODEL MAKER SCALEKALLIE DUENAS ? Accession #: ? [id number] ? : ? 1960 (Age: 57) ??F ? Collect Date: ? 10/06/2017 ? Location: ? [facility] ? Receive Date: ? 10/07/2017 ? Provider: ANA HELLER DO Copy to: ADI HOFFMAN DO ? Final Pathologic Diagnosis: STOMACH, ANTRUM, BIOPSY: - Gastric antral mucosa with reactive (chemical) gastropathy and capillary ectasia. - See comment. Comment: The histologic features of the antral biopsy would be consistent with portal hypertensive gastropathy. Although capillary ectasia is noted within the lamina propria, the biopsy is negative for fibrin thrombi. Other diagnostic considerations include medication (NSAIDs) effect. Document reviewed and electronically signed by: BRADLEY MOORE MD Report ??Date: 10/09/2017 17:37 By the signature above, the attending physician certifies that he/she has personally conducted a gross and/or microscopic examination of the described specimens and rendered or confirmed the above diagnosis. Specimen(s) Received: Antrum Clinical History: Dyspepsia, cirrhosis, erosive gastritis; clinical diagnosis code: ??K92.0, K70.31 Gross Description: ? Received in formalin labelled with proper patient identification (initials P, A) and antrum are two pink-florian tissues (0.3 x 0.2 x 0.2 cm and 0.6 x 0.2 x 0.2 cm). Entirely submitted in 1. MAXIME Quan (ASCP) 10/07/2017 5:12 PM End of Report [facility] 10/06/2017 15:4 9 EDT 10/07/2017 15:49 EDT Ana Heller DO PATHOLOGY ORDERABLES [facility] [address] [place] [address] documented in this encounter Visit Diagnoses Not on filedocumented in this encounter Care Teams Auto Body Detailer Relationship Specialty Start Date End Date Jennie Resendiz MD [address] [place] [phone] PCP - General 11/15/09 06/23/18 documented as of this encounter
--- OUTSIDE RECORDS SUMMARY | 2024-01-23 00:39 | XMS_ITS | Encounter Summary ---
Author Organization [facility] Address [address] [place] [address] Care Team Providers Care Wave Soldering Machine Operator Name Role Phone Mehul Valladares DO Primary Care Provider [phone] Encounter Details Date Type Department Care Team (Late st Contact Info) Description 07/31/2018 Orders Only [facility] Ophthalmology - Main [place] [address] [place], [place] [phone] Rigoberto Dos Santos MD [address] [facility], [address] [place] [address] Social History Tobacco Use Types [...] on filedocumented in this encounter Care Teams Wave Soldering Machine Operator Relationship Specialty Start Date End Date Mehul Valladares DO PCP - General 06/25/18 09/08/19 documented as of this encounter
--- OUTSIDE RECORDS SUMMARY | 2024-01-23 00:39 | XMS_ITS | Encounter Summary ---
Author Organization [facility] Address [address] [place] [address] Care Team Providers Care Telemetry Monitor Name Role Phone Jacquelyn Mehul Brittney SMITH Primary Care Provider Reason for Visit * Reason Onset Date Comments Patient Outreach 09/21/2018 Encounter Details Date Type Department Care Team (Late st Contact Info) Description 09/21/2018 Telephone [facility] Ophthalmology - [address] [phone] Rigoberto Dos Santos MD [address] [facility], [address] [place] [address] Patient Outreach Social History Tobacco Use Types Packs/Day Years [...] * Telephone Encounter - Glory Castillo - 09/21/2018 0934 EDT Pt calling wanting to know who Dr. Dos Santos referred her too. She was given the results of her scan inApril and was advised that she needed to see another provider. I have printed off the referral to Neurosurgery to give to Dr. Dos Santos it has been denied for not enough information documented in this encounter Plan of Treatment Not on file documented as of this encounter Visit Diagnoses Not on filedocumented in this encounter Care Teams Telemetry Monitor Relationship Specialty Start Date End Date Mehul Valladares DO PCP - General 06/25/18 09/08/19 documented as of this encounter
--- OUTSIDE RECORDS SUMMARY | 2024-01-23 00:39 | XMS_ITS | Encounter Summary ---
Author Organization [facility] Address [address] [place] [address] Care Team Providers Care Group Cio Name Role Phone Jennie Resendiz MD Primary Care Provider [phone] Encounter Details Date Type Department Care Team (Late st Contact Info) Description 01/10/2011 Results Only [facility] Laboratory Services - [facility] ([facility]) [address] [place] [address] Héctor Bush MD [address] [place] [id number] Social History Tobacco Use Types Packs/Day Years [...] Date/Time Associated Diagnosis Comments SURGICAL PATHOLOGY Routine 01/10/2011 0:00 EDT documented in this encounter Results * SURGICAL PATHOLOGY (01/10/2011 0:00 EDT) Pathology Report: SURGICAL PATHOLOGY REPORT ? Reports generated via electronic interface contain original data; ? however they are lacking the format of the original report. ? Caution should be taken when reading/interpreting unformatted reports. ? Name: ? , KALLIE ? Accession #: ? [id number] ? : ? 1960 (Age: 50) ??F ? Collect Date: ? 01/10/2011 ? Location: ? [facility] ? Receive Date: ? 01/11/2011 ? Provider: HÉCTOR BUSH MD ? Copy to: LIZETTE W BESCH CHAIR MENDER ? Final Pathologic Diagnosis: ? A. ?Colon, sigmoid, polyps, biopsies: ? 1. ?Fragments of tubular adenoma(s). ? 2. ? Hyperplastic polyp. ? B. ?Rectum, polyps, biopsies: ? 1. ?Hyperplastic polyps. ??See comment. ? C. ?Esophagus, 38 cm, biopsy: ? 1. ?Focal acute esophagitis. See comment. ? - Fungal organisms are identified on routine H & E stains. ? 2. ?Squamous mucosa with increased intraepithelial eosinophils (less ? than five per high power field), consistent with reflux esophagitis. ? 3. ? Gastric-type mucosa with mild, chronic and focal active inflammation and a focus of giant cells. See comment. ? - No Helicobacter pylori microorganisms are identified by ? immunohistochemistry. See comment. ? Comment: ? A small focus of giant cells is within the gastric-type mucosa in the ? esophageal biopsy (specimen C). Diagnostic considerations include a previous ? erosion, the underlying reflux esophagitis or a local foreign body giant cell ?? reaction. Clinical correlation is essential. Deeper levels of the rectal polyps (specimen B) have been examined. Immunohistochemical staining was performed on ?? this case to further characterize the inflammation in specimen C. ??Positive and negative controls stained appropriately. Parole Director sections of this case ?? have been reviewed at intradepartmental consultation conference. ? Block ?Antibody (Clone) ? Result ? C ?H. pylori (polyclonal, [facility]) ? Negative ? NOTE: ??One or more of the reagents used in immunohistochemical testing in this case may not have been cleared or approved by the U.S. Food and Drug ? Administration (FDA). ??The FDA has determined that such clearance or approval is not necessary. ??These tests are used for clinical purposes. ??They should not be regarded as investigational or for research. ??These reagents' ??performance ? characteristics have been determined by [facility]. ??This ? laboratory is certified under the Clinical Laboratory Improvement Amendments of 1988 (CLIA-88) as qualified to perform high complexity clinical laboratory ? testing. ? (Dr. Cash)/mpl ? Document reviewed and electronically signed by: ? MICHAEL CASH MD ? Report ??Date: 01/16/2011 15:31 ? By the signature above, the attending physician certifies that he/she has ? personally conducted a gross and/or microscopic examination of the described ? specimens and rendered or confirmed the above diagnosis. ? Specimen(s) Received: ? Colonoscopy: ? A. ?Sigmoid polyps x2 (#1) ? B. ? Rectal polyps x2 (#2) ? EGD: ? C. Esophagus 38 cm (#3) ? Clinical History: ? Screening colo; GERD ? Gross Description: ? Received in formalin labelled Seasoner Hand, Klalie and 1 ??sigmoid polyps ?? x2 are six florian-pink irregular soft tissue fragments ranging from 0.2 x 0.2 x ?? 0.2 cm to 0.4 x 0.3 x 0.2 cm. ??The specimen is entirely submitted as (A1) and ?? (A2). ? Received in formalin labelled Seasoner Hand, Kallie and 2 ??rectal polyps x2 are two florian-pink irregular soft tissue fragments measuring 0.2 x 0.1 x 0.1 cm and ?? 0.3 x 0.3 x 0.2 cm. ??The specimen is entirely submitted as (B). ? Received in formalin labelled Seasoner Hand, Kallie and 3 ??esophagus at 38 cm ?? are five florian-pink irregular soft tissue fragments ranging from 0.2 x 0.1 x 0.1 ?? cm to 0.6 x 0.3 x 0.3 cm. ??The specimen is entirely submitted as (C1) and (C2). (Edmundo Maravilla)/[facility] ? End of Report ? [facility] 01/10/2011 01/11/2011 13: 11 EDT Héctor Bush MD PATHOLOGY ORDERABLE S [facility] [address] [place] [address] documented in this encounter Visit Diagnoses Not on filedocumented in this encounter Care Teams Group Cio Relationship Specialty Start Date End Date Jennie Resendiz MD [address] [place] [phone] PCP - General 11/15/09 06/23/18 documented as of this encounter
--- OUTSIDE RECORDS SUMMARY | 2024-01-23 00:39 | XMS_ITS | Encounter Summary ---
Author Organization [facility] Address [address] [place] [address] Care Team Providers Care Blaster Helper Name Role Phone Unavailable Primary Care Provider Unavailabl e Encounter Details Date Type Department Care Team (Late st Contact Info) Description 05/01/2006 10:39 EST Hospital Encounter [facility] conversion [address] [place] [address] Jed Jean Baptiste MD Social History Tobacco Use Types Packs/Day Years [...]
--- OUTSIDE RECORDS SUMMARY | 2024-01-23 00:39 | XMS_ITS | Encounter Summary ---
Author Organization [facility] Address [address] [place] [address] Care Team Providers Care Pacu Nurse Name Role Phone Jacquelyn Mehul Brittney SMITH Primary Care Provider Reason for Referral * Radiology Services (Routine) - Closed Specialty Diagnoses / Procedures Referred By Nicol sparks Referred To Contact Diagnoses Aneurysm (arteriovenous) of coronary vessels Procedures CT ANGIO HEAD W CONTRAST Rigoberto Dos Santos MD [address] [place] [phone] Referral ID Status Reason Start Date Expiration Date Visits Re quested Visits Authorized [id number] Closed 10/02/2018 12/31/2018 1 1 Encounter Details Date Type Department Care Team (Late st Contact Info) Description 09/30/2018 Orders Only [facility] Ophthalmology - [address] [phone] Rigoberto Dos Santos MD [address] [place] [phone] Aneurysm (arteriovenous) of coronary vessels (Primary [...] of this encounter Plan of Treatment Scheduled Orders Name Type Priority Associated Diagnoses Orde r Schedule CT ANGIO HEAD W CONTRAST Imaging Routine Aneurysm (Arteriovenous) of Coronary Vessels Ordered: 09/30/2018 documented as of this encounter Visit Diagnoses Diagnosis Aneurysm (arteriovenous) of coronary vessels- Primary Aneurysm of coronary vessels documented in this encounter Care Teams Pacu Nurse Relationship Specialty Start Date End Date Mehul Valladares DO PCP - General 06/25/18 09/08/19 documented as of this encounter
--- OUTSIDE RECORDS SUMMARY | 2024-01-23 00:39 | XMS_ITS | Encounter Summary ---
Author Organization [facility] Address [address] [place] [address] Care Team Providers Care Kennel Keeper Name Role Phone Chikiskj Mehul Brittney SMITH Primary Care Provider [phone] Reason for Visit * Reason Onset Date Comments Other 07/15/2018 Encounter Details Date Type Department Care Team (Late st Contact Info) Description 07/15/2018 Telephone [facility] Ophthalmology - [facility] [address] [place], [place] [phone] Rigoberto Dos Santos MD [address] [facility], [address] [place] [phone] Other Social History Tobacco Use [...] Telephone Encounter - George Smith RN - 07/15/2018 0924 EDT Spoke to Santos who will help with this. He will let us know if we can do anything to help. * Telephone Encounter - Jessica Patel - 07/15/2018 0855 EDT Pt called in and said that she needs a referral to have her cat scan done on 07/24/2018 @ 4 O'Clock.The referral needs to go to [facility] and medicaid. documented in this encounter Plan of Treatment Not on file documented as of this encounter Visit Diagnoses Not on filedocumented in this encounter Care Teams Kennel Keeper Relationship Specialty Start Date End Date Mehul Valladares DO PCP - General 06/25/18 09/08/19 documented as of this encounter
--- OUTSIDE RECORDS SUMMARY | 2024-01-23 00:39 | XMS_ITS | Encounter Summary ---
Author Organization [facility] Address [address] [place] [address] Care Team Providers Care Men'S Designer Name Role Phone Renettabrittney Mehul Brittney SMITH Primary Care Provider [phone] Encounter Details Date Type Department Care Team (Late st Contact Info) Description 07/24/2018 Results Only [facility] [phone] Unknown, Provider, Social History Tobacco Use Types [...] Procedure Name Priority Date/Time Associated Diagnosis Comments CREATININE, ISTAT Routine 07/24/2018 16: 53 EDT documented in this encounter Results * CREATININE, ISTAT (07/24/2018 16:53 EDT) Creatinine, i-STAT 0.6 0.6 - 1.3 mg/dl 07/24/2018 16:58 EDT [facility] licensed embalmer supervisor ID [id number] 07/24/2018 16:58 EDT [facility] Comment:[facility] BLOOD SPECIMEN / Unknown 07/24/2018 16:53 EDT 07/24/2018 16:58 EDT Provider Unknown MD POINT OF CARE TEST O RDERABLES Performing Organization Address City/State/[facility] Co de Phone Number [facility] [address] [place] [address] documented in this encounter Visit Diagnoses Not on filedocumented in this encounter Care Teams Men'S Designer Relationship Specialty Start Date End Date Mehul Valladares DO PCP - General 06/25/18 09/08/19 documented as of this encounter
--- OUTSIDE RECORDS SUMMARY | 2024-01-23 00:39 | XMS_ITS | Encounter Summary ---
Author Organization [facility] Address [address] [place] [address] Care Team Providers Care Chaplaincy Name Role Phone Unavailable Primary Care Provider Unavailabl e Encounter Details Date Type Department Care Team (Latest Contact Info) Description 12/15/2005 10:35 EDT - 12/15/2005 11:59 EDT Hospital Encounter [facility] Emergency Department - [facility] [address] [place], [place] [id number] Emergency, Default, MD Discharge Disposition: Home or Self Care Social [...] Procedure Name Priority Date/Time Associated Diagnosis Comments WRIST 3 OR MORE VIEWS 12/15/2005 11:15 EDT documented in this encounter Results * WRIST 3 OR MORE VIEWS (12/15/2005 11:15 EDT) Anatomical Region Laterality Modality Other 12/15/2005 11:1 5 EDT Narrative 10/22/2008 3:58 EDT FEEL ON OUTSTRETCHED HAND, RIGHT WRIST LAS NIGHT R/O FRACTURE, DISLOCATION RIGHT WRIST 12/15/05 CLINICAL HISTORY: ??fell on outstretched hand right wrist last night; rule out fracture or dislocation. FINDINGS: There is a small linear area of sclerosis in the distal radius. However, the patient states that she had an old fracture in that area in the past and this is likely an old healed fracture. There is no evidence for an acute injury. The scaphoid has a normal appearance. The alignment is anatomic. If the pain persists, repeat x-ray could be obtained in 10 days. D 12/15/05 T 12/17/05 /edward Procedure Note Karen Arvizu MD - 10/22/2008 FEEL ON OUTSTRETCHED HAND, RIGHT WRIST LAS NIGHT R/O FRACTURE, DISLOCATION RIGHT WRIST 12/15/05 CLINICAL HISTORY: fell on outstretched hand right wrist last night; rule out fracture or dislocation. FINDINGS: There is a small linear area of sclerosis in the distal radius. However, the patient states that she had an old fracture in that area in the past and this is likely an old healed fracture. There is no evidence for an acute injury. The scaphoid has a normal appearance. The alignment is anatomic. If the pain persists, repeat x-ray could be obtained in 10 days. D 12/15/05 T 12/17/05 /edward Jed Boyd MD IMG DIAGNOSTIC IMAG ING ORDERABLES documented in this encounter Visit Diagnoses Not on filedocumented in this encounter
--- OUTSIDE RECORDS SUMMARY | 2024-01-23 00:39 | XMS_ITS | Encounter Summary ---
Author Organization [facility] Address [address] [place] [address] Care Team Providers Care Shipping Specialist Name Role Phone Unavailable Primary Care Provider Unavailabl e Encounter Details Date Type Department Care Team (Late st Contact Info) Description 05/12/1999 Results Only [facility] conversion [address] [place] [address] Héctor Bush MD [address] [place] [address] Social History Tobacco Use Types Packs/Day Years [...] Date/Time Associated Diagnosis Comments SURGICAL PATHOLOGY Routine 05/12/1999 11 :30 EST documented in this encounter Results * SURGICAL PATHOLOGY (05/12/1999 11:30 EST) Pathology Report: SURGICAL PATHOLOGY REPORT Reports generated via electronic interface contain original data; however they are lacking the format of the original report. Caution should be taken when reading/interpreti ng unformatted reports. Name: ? KALLIE DARLING ? Accession #: ? [id number] ? : ? 1960 (Age: 38) ??F ? Collect Date: ? 05/12/1999 ? Location: ?Receive Date: ? 05/12/1999 ? Provider: HÉCTOR BUSH MD Copy to: HÉCTOR GALINDO MD ? Final Pathologic Diagnosis: MICROSCOPIC DIAGNOSIS: ? Esophagus, 35 cm, biopsies: ? - Mild reflux esophagitis. ? - Gastric type mucosa with chronic inflammation. ? Document reviewed and electronically signed by: Conversion for VIKY COLON Report ??Date: 05/16/1999 00:00 By the signature above, the attending physician certifies that he/she has personally conducted a gross and/or microscopic examination of the described specimens and rendered or confirmed the above diagnosis. Specimen(s) Received: TISSUE SUBMITTED: ? 1. ??Biopsy @ 35 cc - esophagus CLINICAL DATA: ? Esophagitis Gross Description: GROSS: ? Received in Hollande's fixative labelled Jason and #1 ? esophagus 35 cc are six biopsies ranging in size from 0.1 to 0.3 ? cm in maximum dimension. ??Submitted entirely as (A) and (B). ? (Dr. Walters)/danelle ?? End of Report [facility] 05/12/1999 11:3 0 EST 05/12/1999 11:31 EST Héctor Bush MD PATHOLOGY ORDERABLE S [facility] [address] [place] [address] documented in this encounter Visit Diagnoses Not on filedocumented in this encounter
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
--- OUTSIDE RECORDS SUMMARY | 2024-01-23 00:39 | XMS_ITS | Encounter Summary ---
Author Organization [facility] Address [address] [place] [address] Care Team Providers Care Turret Press Operator Name Role Phone Unavailable Primary Care Provider Unavailabl e Encounter Details Date Type Department Care Team (Late st Contact Info) Description 06/05/2000 Results Only [facility] [address] [place] [address] Lynnette Olsen, TEAM GUIDE [address] [facility] [address] [place] [address] Social History Tobacco Use Types Packs/Day [...] Priority Date/Time Associated Diagnosis Comments CYTOPATHOLOGY Routine 06/05/2000 0:00 EST documented in this encounter Results * CYTOPATHOLOGY (06/05/2000 0:00 EST) Pathology Report: CYTOPATHOLOGY REPORT Reports generated via electronic interface contain original data; however they are lacking the format of the original report. Caution should be taken when reading/interpreti ng unformatted reports. 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 Accession #: ? [id number] : ? 1960 (Age: 39) ??F ?Collect Date: ? 06/05/2000 Location: ? [facility] ? Receive Date: ? 06/09/2000 Provider: ?LYNNETTE OLSEN NP Copy to: ? Specimen/Source: ?Conventional Pap Test, Vagina Last Menstrual Period: ? 1994 ? SPECIMEN ADEQUACY ? Satisfactory for evaluation. GENERAL CATEGORIZATION ? Within Normal Limits ? Document reviewed and electronically signed by: ? Kaila Domínguez, SCT(ASCP) ? Report Date: ??06/10/2000 07:32 End of Report PETTY ARGUETA 06/05/2000 06/09/2000 Lynnette Olsen NP PATHOLOGY ORDERABLES PETTY ARGUETA [address] [place] [address] documented in this encounter Visit Diagnoses Not on filedocumented in this encounter
--- OUTSIDE RECORDS SUMMARY | 2024-01-23 00:39 | XMS_ITS | Encounter Summary ---
Author Organization [facility] Address [address] [place] [address] Care Team Providers Care Multiple Resaw Operator Name Role Phone Unavailable Primary Care Provider Unavailabl e Encounter Details Date Type Department Care Team (Late st Contact Info) Description 04/29/2006 Office Visit [facility] [address] [place] [address] Saturnino Singleton MD [address] [place] [id number] Social History Tobacco Use Types Packs/Day Years Used Date Smoking Tobacco: Never Assessed Sex and Gender Information Value Date Recorded Sex Assigned at Not on file Gender Identity Female 09/09/2019 13:11 EDT Sexual Orientation Not on file documented as of this encounter Progress Notes * Saturnino Singleton, - 06/08/2009 1034 EST Department - Physician Summary Registration Date/Time: 04/29/2006 19:07 Time Seen: 19:42. Arrived- By private vehicle. Historian- patient. HISTORY OF PRESENT ILLNESS Chief Complaint: leg swelling and cramping x 2 months. sent from primary care office for DVT Evaluation withultrasound.. Is still present. At its maximum, severity described as mild and 2 / 10. When seen in the E.D., severity described as mild and 2 / 10. (cramping, tense calves.). The patient has had similar symptoms several times previously. The patient was seen recently in the office. REVIEW OF SYSTEMS The patient has had calf pain (for months). No fever, sore throat, sinus drainage, nasal congestionor cough. No difficulty breathing,chest pain, abdominal pain, nausea or vomiting. No diarrhea, black stools, bloody stools, blackouts or double vision. No difficulty with ambulation. All systems otherwise negative, except as recorded above. PAST HISTORY See nurses notes. Medications: The patient's medications have been reviewed. Allergies: The patient's allergies have been reviewed. SOCIAL HISTORY Nonsmoker. No alcohol use or drug use. FAMILY HISTORY Diabetes; cancer in second-degree relative. ADDITIONAL NOTES The nursing notes have been reviewed. PHYSICAL EXAM Appearance: Alert. No acute distress. Vital Signs: Have been reviewed. Eyes: Pupils equal, round and reactive to light. Eyes normal inspection. ENT: Ears normal. Nose normal. Pharynx normal. Neck: Normal inspection. Neck supple. CVS: Normal heart rate and rhythm. Heart sounds normal. Pulses normal. Respiratory: No respiratory distress. Breath sounds normal. Chest nontender. Abdomen: Abdomen soft and nontender. No organomegaly. Back: Normal inspection. Skin: Normal skin color. Skin warm. No rash. Extremities: Moderate right-sided and left-sided calf tenderness. No lower extremity edema. Neuro: Oriented X 3. No motor deficit. No sensory deficit. Reflexes normal. LABS, X-RAYS, AND EKG Coagulation Studies: D-dimer. PROGRESS AND PROCEDURES E.D. Course: pt with calf cramping and aching for 1 month. pt sent here for DVT ultrasound. . Patient/family counseled. Disposition: Discharged home in good condition. CLINICAL IMPRESSION Strain. (Electronically signed by Saturnino Singleton M.D. 06/11/2006 15:21) PROGRESS AND PROCEDURES E.D. Course: Assumed care of patient from Dr. Singleton. Reviewed and agree with note. Here with worsening R calf pain; denies recent trauma or hx DVT; care transfered with LE ultrasound in progress; study neg for obvious DVT; discussed findings including need for re-evaluation and possible repeat ultrasound for persistant sx. Disposition: Discharged home in improved condition. CLINICAL IMPRESSION Lower extremity pain. INSTRUCTIONS Apply ice intermittently (15-20 minutes at a time 4-6 times daily). Elevate affected areas above chest level. Acetaminophen 1000mg or Vicodin 1 - 2 every 4 hours as needed for pain. Warnings: GENERAL WARNINGS: Return or contact your physician immediately if your condition worsens or changesunexpectedly, if not improving as expected, or if other problems arise. Specifically return if pain, vomiting, breathing difficulty or fever worsens. Prescription Medications: Vicodin 5 mg: take 1-2 orally every 4 hours as needed for pain. Dispense ten (10). No refill. Generic substitute OK. Follow-up: Follow up with your doctor for re-evaluation and possible repeat ultrasound in seven if not better. Understanding of the discharge instructions verbalized by patient. (Electronically signed by Ramón Crawford M.D. 04/30/2006 0:17) Addenda enrico KALLIE DARLING VisitID: [id number] Date: 04/29/2006 04/29/2006 17:09 ASIYA HENSLEY REFERS PT TO ED FOR EVAL. CC: CALF PAIN, R/ODVT signed by Raf Jauregui - 04/29/2006 17:09) Department - Nursing Summary Registration Date/Time: 04/29/2006 19:07 TRIAGE Initial Assessment Triage time 19:11. Acuity: LEVEL 5. BP: 148 / 92. HR: 93. RR: 17. Temp: 36 C (oral). O2 saturation: 100%. --1914 Suzanne Franco R.N.. Medications (advair spirva zetia flutoxine prilosec insulin). --1914 Suzanne Franco R.N.. Allergies (asa deozorin ). --1914 Suzanne Franco R.N.. History Chief Complaint: (1 mo hx leg pain). Onset (1 months). Pain level now: 8/10. 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 PAST HX: Diabetes mellitus. SOCIAL HX: Smoker. Arrived by private vehicle. --1914 Suzanne Franco R.N.. NURSING PROGRESS NOTES Progress Patient transported to [facility] by stretcher with [employer]. --2210 Emerald Wells R.N. late entry - 2014. VICODIN 5 mg PO. Sedative drug warning given to the patient. . --2215 Brad Guzman R.N.. IV / I&O Flowsheet late entry - 2114. IV site #1: location left antecubital space. Started with 18g angiocath using aseptic technique, with good blood return. Saline lock in place. IV patent. No redness or swelling at site. IV line accessed- flushed with saline and blood drawn. --2148 Christos VillasenorMPat. DISPOSITION / DISCHARGE BP: 138 / 89. HR: 80. RR: 16. Patient reports pain level on departure as 5/10. Condition at departure: improved and stable. Discontinued: IV site (IV catheter intact). Fall risk assessment completed.Low fall risk potential. No learning barriers present. Discharge instructions reviewed with the patient. Reviewed warnings. Reviewed medication side effects, precautions, dosing and course; prescription (s) given to the patient (vicodin starter # [id number] and script ). Patient verbalized understanding. The patient was discharged home and accompanied by family. The patient left the Emergency Department ambulatory and via private vehicle. Family member driving. --0017 Brad Guzman R.N.. Christos Terrell R.N.M.Eli Guzman R.N. Locked/Released at 04/30/2006 0:17 by Brad Guzman R.N. documented in this encounter Plan of Treatment Not on file documented as of this encounter Visit Diagnoses Not on filedocumented in this encounter
--- OUTSIDE RECORDS SUMMARY | 2024-01-23 00:39 | XMS_ITS | Encounter Summary ---
Author Organization [facility] Address [address] [place] [address] Care Team Providers Care Tank Washer Name Role Phone Unavailable Primary Care Provider Unavailabl e Encounter Details Date Type Department Care Team (Latest Contact Info) Description 04/29/2006 15:57 EST - 04/30/2006 11:59 EST Hospital Encounter [facility] Emergency Department - [facility] [address] [place], [place] [address] Emergency, Default, MD Discharge Disposition: Home or [...] Procedure Name Priority Date/Time Associated Diagnosis Comments RAD US DOPPLER EXTREMITY VENOUS BILATERAL 04/29/2006 23:49 EST HOLD GREEN TOP Routine 04/29/2006 21:10 EST D-DIMER Routine 04/29/2006 21:10 EST COMPLETE BLOOD COUNT AND DIFFERENTIAL Routine 04/29/2006 21:10 EST BUN Routine 04/29/2006 21:10 EST GLUCOSE, SERUM Routine 04/29/2006 21:10 EST CREATININE Routine 04/29/2006 21:10 EST ELECTROLYTES Routine 04/29/2006 21:10 EST documented in this encounter Results * RAD US DOPPLER EXTREMITY VENOUS BILATERAL (04/29/2006 23:49 EST) Anatomical Region Laterality Modality Other 04/29/2006 23:4 9 EST Narrative 10/22/2008 5:58 EDT bilat le pain/ swelling r/o dvt BILATERAL LOWER EXTREMITY DOPPLER VENOUS ULTRASOUND HISTORY: ??Bilateral lower extremity pain and swelling. ??Rule out DVT. FINDINGS: ??The right and left common femoral veins, superficial femoral veins and popliteal veins are compressible. ??No echogenic debris is seen within the lumen of these vessels. ??Respiratory phasicity and augmentation are also demonstrated. ??Color Doppler also demonstrates patency of these vessels. ??The peroneal veins and posterior tibial veins of both calves appear patent on compression images. IMPRESSION: ??No evidence of DVT in the right or left lower extremity. D: ??04/30/06 T: ??05/01/06 /[facility] I have personally reviewed the images and the above interpretation and agree with the findings. Procedure Note Evin Pearson Jr., MD / Genaro Banks, DO - 10/22/2008 bilat le pain/ swelling r/o dvt BILATERAL LOWER EXTREMITY DOPPLER VENOUS ULTRASOUND HISTORY: Bilateral lower extremity pain and swelling. Rule out DVT. FINDINGS: The right and left common femoral veins, superficial femoral veins and popliteal veins are compressible. No echogenic debris is seen within the lumen of these vessels. Respiratory phasicity and augmentation are also demonstrated. Color Doppler also demonstrates patency of these vessels. The peroneal veins and posterior tibial veins of both calves appear patent on compression images. IMPRESSION: No evidence of DVT in the right or left lower extremity. /[facility] I have personally reviewed the images and the above interpretation and agree with the findings. Saturnino Singleton MD IMG US ORDERABLES * (ABNORMAL) GLUCOSE, SERUM (04/29/2006 21:10 EST) Glucose, Serum 117(H) 70 - 100 mg/dl [facility] 04/29/2006 21:1 0 EST 04/29/2006 21:18 EST Default Emergency MD CHEMISTRY & BLOOD G ORDERABLES Performing Organization Address [facility] Co de Phone Number [facility] [address] [place] [address] * ELECTROLYTES (04/29/2006 21:10 EST) Pathologist [facility] Sodium 141 136 - 145 mEq/L [facility] Potassium 4.5 3.5 - 5.0 mEq/L [facility] Chloride 103 96 - 110 mEq/L [facility] CO2 26 24 - 32 mEq/L [facility] 04/29/2006 21:1 0 EST 04/29/2006 21:18 EST Default Emergency MD CHEMISTRY & BLOOD G ORDERABLES Performing Organization Address [facility] de Phone Number [facility] [address] [place] [address] * HOLD GREEN TOP (04/29/2006 21:10 EST) Pathologist [facility] Hold Green Top Hold for further testing. Specimen will be held for 30 days. [facility] 04/29/2006 21:1 0 EST 04/29/2006 21:18 EST Default Emergency MD LAB INFO SERVICE AN D SUPPORT & PHONE RESULT Performing Organization Address [facility] Co de Phone Number [facility] [address] [place] [address] * D-DIMER (04/29/2006 21:10 EST) D-Dimer <0.22 <0.50 ug FEU/ml [facility] Comment: The presence of rheumatoid factor (RF) at a level greater than 50IU/ml may lead to an over-estimation of the D-Dimer level. ??It is therefore recommended that the presence of RF in the test samples be confirmed by an appropriate RF procedure for cases of unexplained D-Dimer positive results. 04/29/2006 21:1 0 EST 04/29/2006 21:18 EST Default Emergency MD HEMATOLOGY & PF4 OR DERABLES Performing Organization Address [facility] de Phone Number [facility] [address] [place] [address] * CREATININE (04/29/2006 21:10 EST) Pathologist [facility] Creatinine 0.91 0.7 - 1.5 mg/dl [facility] GFR, Calculated >60 ml/min/1.7 3m2 [facility] 04/29/2006 21:1 0 EST 04/29/2006 21:18 EST Default Emergency CHEMISTRY & BLOOD G ORDERABLES Performing Organization Address [facility] de Phone Number [facility] [address] [place] [address] * (ABNORMAL) HEMAGRAM AND DIFFERENTIAL (04/29/2006 21:10 EST) Pathologist [facility] WBC 11.02 4.0 - 12.4 K/cmm [facility] RBC 4.97 3.86 - 5.04 M/cmm [facility] Hemoglobin 15.0 11.6 - 15.2 gm/dl [facility] HCT 43.4 34.9 - 44.4 % [facility] MCV 87 81 - 98 fl [facility] MCH 30.3 26.7 - 33.3 pg [facility] MCHC 34.6 32.1 - 35.9 gm/dl [facility] PLT 290 141 - 320 K/cmm [facility] RDW-CV 13.2 11.7 - 14.6 % [facility] Neutrophils 54.0 45.5 - 79.7 % [facility] Lymphocytes 37.0 15.0 - 46.8 % [facility] Monocytes 4.0 1.8 - 12.0 % [facility] Eosinophils 1.0 0.6 - 6.9 % [facility] Basophils 4.0(H) 0.2 - 1.4 % [facility] ABS Neutrophils 5.95 2.20 - 8.85 K/cmm [facility] ABS Lymphs 4.08(H) 1.09 - 3.30 K/cmm [facility] ABS Monocytes 0.44 0.1 - 0.8 K/cmm [facility] ABS Eosinophils 0.11 0.03 - 0.61 K/cmm [facility] ABS Basophils 0.44(H) 0.01 - 0.11 K/cmm [facility] RBC Morphology 1+ Anisocytosis 1+ Poikilocytosis [facility] Type of Diff: Manual [facility] 04/29/2006 21:1 0 EST 04/29/2006 21:18 EST Default Emergency MD PACKAGES & DNA PROB E ORDERABLES Performing Organization Address [facility] de Phone Number [facility] [address] [place] [address] * BUN (04/29/2006 21:10 EST) BUN 15 10 - 26 mg/dl [facility] 04/29/2006 21:1 0 EST 04/29/2006 21:18 EST Default Emergency MD CHEMISTRY & BLOOD G ORDERABLES Performing Organization Address [facility] Co de Phone Number [facility] [address] [place] [address] documented in this encounter Visit Diagnoses Not on filedocumented in this encounter
--- OUTSIDE RECORDS SUMMARY | 2024-01-23 00:39 | XMS_ITS | Encounter Summary ---
Author Organization [facility] Address [address] [place] [address] Care Team Providers Care Area Counselor Name Role Phone Jacquelyn Mehul Brittney SMITH Primary Care Provider [phone] Reason for Referral * Consult (Routine/Next Available) - Denied Specialty Diagnoses / Procedures Referred By Nicol sparks Referred To Contact Neurosurgery Diagnoses Aneurysm of middle cerebral artery Rigoberto Dos Santos MD [address] [place] [phone] Antoine Castaneda MD [address] [place] [phone] Referral ID Status Reason Start Date Expiration Date V isits Requested Visits Authorized [id number] Denied Specialty Services Required 09/29/2018 1 0 Question Answer Reason for Request: 4.5 mm aneurysm at the right MCA bifurcation - assesment and follow-up Encounter Details Date Type Department Care Team (Late st Contact Info) Description 09/29/2018 Orders Only [facility] Ophthalmology - [address] [address] Rigoberto Dos Santos MD [address] [facility] [place] [id number] Aneurysm of middle cerebral artery (Primary Dx) [...] Routine Aneurysm of Middle Cerebral Artery Ordered: 09/29/2018 documented as of this encounter Visit Diagnoses Diagnosis Aneurysm of middle cerebral artery- Primary Cerebral aneurysm, nonruptured documented in this encounter Care Teams Area Counselor Relationship Specialty Start Date End Date Mehul Valladares DO PCP - General 06/25/18 09/08/19 documented as of this encounter
== END 2024-01-23 00:50 ==
LOC: DI 00:30
PROVIDERS: PCP Family Medicine; Visit Provider Student in an Organized Health Care Education/Training Program
DX: Z12.31 Encounter for screening mammogram for malignant neoplasm of breast (principal); N63.13 Unspecified lump in the right breast, lower outer quadrant
CPT/HCPCS: 76642; 77061; 77065; G0279

== ENCOUNTER 2024-04-08 11:05 | Outpatient (REF) | payer MEDICAID, SELFPAY ==
--- OUTSIDE RECORDS SUMMARY | 2024-04-08 11:08 | XMS_ITS | Encounter Summary ---
[facility] [place] [address] Care Team Providers Care Wage Hand Name Role Phone Grant Lindsey MD Primary Care Provider [phone] Encounter Details Date Type Department Care Team (Latest Contact Info) Description 05/30/2022 8:51 AM EST - 05/30/2022 11:59 PM EST Hospital [place] [address] Saniya Thomson, ROTARY FURNACE OPERATOR [facility] [place] [address] Hepatic cirrhosis, unspecified hepatic cirrhosis type, unspecified [...] ascites. Electronically signed by: Primo Guthrie MD, [facility] ([phone]), at 05/30/2022 11:42 AM Thank you for letting us participate in the care of this patient. If you are a health care provider and have any questions regarding this report, please contact the number above. For patients who have questions, please contact the health care asst that requested your imaging first. ?Primo Guthrie, Staff Physician Electronically Signed Final Report ?? 05/30/2022 11:49 am Narrative 05/30/2022 11:50 AM EST Abdominal ? (Signed Final 05/30/2022 11:49 am) PATIENT INFO: ID #: ? [id number] ?: ??60 (61 yrs)(F) Name: ? KALLIE SMART ? Visit Date: 05/30/2022 09:14 am PERFORMED BY: Performed By: ? Grace Jones RDMS Attending: ?Primo Guthrie MD Referred By: ?SANIYA THOMSON Location: ? [place] SERVICE(S) PROVIDED: [facility] - Hepatology Protocol - Abdominal ?26066 Limited Survey Single Organ or Quadrant - [id number] INDICATIONS: cirrhosis, screen for hcc COMPARISON: US: [...] 05/30/2022 11:49 am) PATIENT INFO: ID #: [id number] : 60 (61 yrs)(F) Name: KALLIE SMART Visit Date: 05/30/2022 09:14 am PERFORMED BY: Performed By: Grace Jones RDMS Attending: Primo Guthrie MD Referred By: SANIYA THOMSON Location: [place] SERVICE(S) PROVIDED: [facility] - Hepatology Protocol - Abdominal 23552 Limited Survey Single Organ or Quadrant - [id number] INDICATIONS: cirrhosis, screen for hcc COMPARISON: US: [...] ascites. Electronically signed by: Primo Guthrie MD, [facility] ([phone]), at 05/30/2022 11:42 AM Thank you for letting us participate in the care of this patient. If you are a health care provider and have any questions regarding this report, please contact the number above. For patients who have questions, please contact the health care asst that requested your imaging first. Primo Guthrie, Staff Physician Electronically Signed Final Report 05/30/2022 11:49 am Saniya Thomson APRN IMG US GEN ORDERAB LES documented in this encounter Visit Diagnoses Diagnosis Hepatic cirrhosis, unspecified hepatic cirrhosis type, unspecified whether ascites present documented in this encounter Care Teams Wage Hand Relationship Specialty Start Date End Date Grant Lindsey MD PCP - General Family Medicine 02/25/19 documented as of this encounter
--- OUTSIDE RECORDS SUMMARY | 2024-04-08 11:08 | XMS_ITS | Encounter Summary ---
[place] [address] Care Team Providers Care Assistant Therapy Aide Name Role Phone Grant Lindsey MD Primary Care Provider [phone] Encounter Details Date Type Department Care Team [...] on filedocumented in this encounter Care Teams Assistant Therapy Aide Relationship Specialty Start Date End Date Grant Lindsey MD PCP - General Family Medicine 02/25/19 documented as of this encounter
--- OUTSIDE RECORDS SUMMARY | 2024-04-08 11:08 | XMS_ITS | Encounter Summary ---
[place] [address] Care Team Providers Care Pnp Name Role Phone Grant Lindsey MD Primary Care Provider [phone] Encounter Details Date Type Department Care Team (Latest Contact Info) Description 11/18/2022 12:40 PM EDT TH Visit (TeleHealth) [place] [phone] Lashae Lorenzo MD [facility] [place] [address] Nicotine dependence with nicotine-induced disorder, unspecified nicotine [...] type documented in this encounter Care Teams Pnp Relationship Specialty Start Date End Date Grant Lindsey MD PCP - General Family Medicine 02/25/19 documented as of this encounter
--- OUTSIDE RECORDS SUMMARY | 2024-04-08 11:08 | XMS_ITS | Clinical Summary ---
Author Organization [facility] [place] [address] Care Team Providers Care Manager House Name Role Phone Grant Lindsey MD Primary Care Provider [phone] Allergies Active Allergy Reactions Criticality Noted Date [...] Medium 06/14/2019 Neomycin Sulfate Nausea Only Medium Ycvyuzfx-Rnmkqsrchjt-Nk lymyxnb 06/25/2018 Nausea and rash Polymyxin B [...] sleep apnea) GERD (gastroesophageal reflux disease) Hyperlipidemia Encounters Date Type Department Care Team Description 02/27/2024 Telephone [place] [address] Lashae Lorenzo MD from Last 3 Months Immunizations Name Administration Dates Next Due Influenza [...] 01/17/2023 10:36 AM EDT Plan of Treatment Health Maintenance Due [...] Additional history exists Colorectal Cancer Screening 01/27/2019 RSV Vaccine (1 - Risk 60-74 years 1-dose series) 2020 Lipid Screening 08/29/2020 08/30/2015, 09/18/2012 Covid-19 Vaccine (1 - 2023-2 5 season) 2023 Influenza (Flu) vaccine (1 o f 1 - Influenza standard series) 12/14/2023 05/06/2013, 02/25/2008 Sigmoidoscopy (10 year) with FIT yearly 01/28/2024 01/27/2014, 01/27/2014, 2012, Additional history exists Diabetes Screening (HgbA1C o r Glucose) 01/18/2026 01/18/2023, 01/17/2023, 08/19/2022, Additional history exists Medical Devices Implanted Type Area Low Pressure Kettle Operator Device Identifier Shelf Expiration Date Model / Serial / Lot Mesh Hernia 60s40mo Synthetic Rectangle Poly Progrip ([id number]) - [id number] Implanted:Qty : 1 on 01/17/2023 by Lashae Lorenzo MD at [facility] IMPLANTS N/A: Abdomen [employer] 07/12/2025 [id number] / / [id number] Procedures Procedure Name Priority Date/Time Associated Diagnosis [...] EDT) Glucose 118 65 - 199 mg/dL [facility] Comment:Diabetes: >=200 mg/d L plus symptoms Blood Urea Nitrogen 8 8 - 18 mg/dL [facility] Creatinine 0.61(L) 0.70 - 1.20 mg/dL [facility] Sodium 140 135 - 145 mmol/L [facility] Potassium 3.9 3.5 - 5.0 mmol/L [facility] Comment: Please note: ??Patients with WBC >100,000 may have falsely elevated Potassium levels. ??For accurate Potassium quantification in these patients send serum separator tube (gold top) for subsequent determinations. ??Contact the Clinical Chemistry Laboratory if there are any questions. Chloride 102 98 - 107 mmol/L [facility] Carbon Dioxide 26 22 - 31 mmol/L [facility] Anion Gap 12 5 - 15 mmol/L [facility] Calcium 8.9 8.5 - 10.5 mg/dL [facility] Est Glomerular Filtration Rate 101 >=60 mL/min/1. 73 m?? [facility] Comment: This patient's estimated GFR [...] In Lab Leo Moreira MD CHEMISTRY ORDERABLES [facility] [place] [place] [address] * (ABNORMAL) Lipid panel (fasting) (08/30/2015 5:50 PM EDT) [facility] Cholesterol, Total 161 <=199 mg/dL [facility] Comment: Recommendations of the NCEP Adult Treatment Panel for the following risk cutoff thresholds for the [place] population: Desirable: <200 mg/dL Borderline High: 200-239 mg/dL High: > or = 240 mg/dL Triglyceride 157(H) <=149 mg/dL [facility] Comment: Reference Range: Normal triglycerides: ??<150 mg/dL Borderline high: ??150-199 mg/dL High: ??200-499 mg/dL Very high: ??>co=446 mg/dL YAMILEX 2001; 285(19):1657-6516 HDL Cholesterol 39(L) >=40 mg/dL [facility] Comment: Reference range: ??Low HDL: ?? < 40 mg/dL ??Normal: ?40-60 mg/dL ??Desirable: > 60 mg/dL YAMILEX 2001; 285(19):6667-0244 LDL Cholesterol 91 <=99 mg/dL [facility] Comment: Reference range: ?? Optimal: ?<100 mg/dL ?? Near Optimal/Above Optimal: ?? 100-129 mg/dL ?? Borderline high: ?130-159 mg/dL ?? High: ? 160-189 mg/dL ?? Very high: ?>xy=867 mg/dL YAMILEX 2001: 285(19):8610-7753 Cholesterol/HDL Ratio 4.1 ratio [facility] Comment: A Cholesterol to HDL ratio below 4:1 is desirable. ??Studies suggest that increased CAD risk occurs at ratios above 5 for females and above 6 for men. ? [place] Heart Association ??(http://www.americanheart.org) ? Sherry Int Med, 1994; 121:641 ? AM J Med, 1998; 105(1A):48S Blood specimen (specimen) 08/30/2015 5:50 PM EDT 08/30/2015 5:56 PM EDT Narrative Resulting Agency Comment Spec In Lab Ashley Salomon MD CHEMISTRY ORDERABLES [facility] [place] [address] * COLONOSCOPY (01/27/2014 8:59 AM EDT) COLONOSCOPY [facility] Endoscopy ___ Patient Name: Kallie Darling ? Procedure Date: 01/27/2014 8:59 AM ? Date of : 1960 ? Age: 53 ? Order #: [id number] ? ___ Procedure: ? Colonoscopy Indications: ? Screening for colorectal malignant ? neoplasm; patient with coincidental ? acute diarrhea following recent ? antibiotics for pneumonia. Providers: ? Sana Taveras MD, Kaila Sanchez, ? Mala LONDONO MD: [...] ? please call our office at ? [phone]. ? _ L. 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
--- OUTSIDE RECORDS SUMMARY | 2024-04-08 11:08 | XMS_ITS | Encounter Summary ---
[place] [address] Care Team Providers Care Mothercraft Nurse Name Role Phone Grant Lindsey MD Primary Care Provider [phone] Encounter Details Date Type Department Care Team (Late st Contact Info) Description 02/27/2024 Telephone [place] [phone] Lashae Lorenzo MD [facility] [place] [address] Social History Tobacco Use Types Packs/Day Years Used Date Smoking Tobacco: Former Cigarettes 0.3 30 1 - 01/17/2023 Smokeless Tobacco: Never Alcohol Use Standard Drinks/Week Comments Not Currently 0 (1 standard drink = 0.6 oz pur e alcohol) last drink was 2018 [facility] Inpatient Questions Answer Date Recorded Does Anyone [...] encounter Miscellaneous Notes * Telephone Encounter - Lashae Lorenzo MD - 02/27/2024 2:52 PM EST I attempted to call Ms. Darling for hernia follow up. There was no answer. Okay to reschedule if shewould like to follow up. documented in this encounter Plan of Treatment Not on file documented as of this encounter Visit Diagnoses Not on filedocumented in this encounter Care Teams Mothercraft Nurse Relationship Specialty Start Date End Date Grant Lindsey MD PCP - General Family Medicine 02/25/19 documented as of this encounter
--- OUTSIDE RECORDS SUMMARY | 2024-04-08 11:08 | XMS_ITS | Encounter Summary ---
[place] [address] Care Team Providers Care Production Stage Manager Name Role Phone Grant Lindsey MD Primary Care Provider [phone] Encounter Details Date Type Department Care Team (Latest Contact Info) Description 09/02/2022 11:45 AM EDT TH Visit (TeleHealth) [place] [phone] Lashae Lorenzo MD [facility] [place] [address] Ventral hernia without obstruction or gangrene Social [...] is to present her case at a [facility] liver conference on 09/18. I will follow up with her after that via telephone. documented in this encounter Plan of Treatment Not on file documented as of this encounter Visit Diagnoses Diagnosis Ventral hernia without obstruction or gangrene Ventral hernia, unspecified, without mention of obstruction or gangrene documented in this encounter Care Teams Production Stage Manager Relationship Specialty Start Date End Date Grant Lindsey MD PCP - General Family Medicine 02/25/19 documented as of this encounter
--- OUTSIDE RECORDS SUMMARY | 2024-04-08 11:08 | XMS_ITS | Encounter Summary ---
[place] [address] Care Team Providers Care Rubberizing Mechanic Name Role Phone Grant Lindsey MD Primary Care Provider [phone] Encounter Details Date Type Department Care Team [...] on filedocumented in this encounter Care Teams Rubberizing Mechanic Relationship Specialty Start Date End Date Grant Lindsey MD PCP - General Family Medicine 02/25/19 documented as of this encounter
--- OUTSIDE RECORDS SUMMARY | 2024-04-08 11:08 | XMS_ITS | Encounter Summary ---
[place] [address] Care Team Providers Care Motor Scooter Repairer Name Role Phone Grant Lindsey MD Primary Care Provider [phone] Reason for Visit * Auth/Cert (Routine) Specialty Diagnoses / Procedures Referred By Nicol sparks Referred To Contact Diagnoses Ventral hernia Ventral hernia Procedures PRO REPAIR AA HERNIA INITIAL < 3 CM INCARCERATED/STRANGULATED LAPAROSCOPIC REPAIR ANT. ABDOMINAL HERNIA(S) (IE, EPIGASTRIC, INCISIONAL, VENTRAL, UMBILICAL, SPIGELIAN), INITIAL, W-WO MESH; LESS THAN 3 CM, INCARCERATED OR STRANGULATED (WRVU 8.46) MODIFIER MESH,BARD BRANDIIGHT Lashae Carpio MD [facility] [address] [facility] Referral ID Status Reason Start Date Expiration Date Visits Re quested Visits Authorized [id number] 1 1 Encounter Details Date Type Department Care Team (Late st Contact Info) Description 01/17/2023 11:28 AM EDT Anesthesia Event [place] [phone] Elizabeth Pereira MD [facility] [place] [address] Katelynn Galvez [place] [address] Anesthesia Record Procedure Summary Procedure Name Responsible [...] questions and acknowledgement of understanding Clint Sullivan, BLASTING MINER 1212 Quick Note Reverse tberg 1221 Break/Relief [...] 1111; metacarpal vein (top of hand), left; aohe-urd-gehupt catheter system; Anatomical Landmarks; 18 gauge; distraction; [...] Procedure Summary Date: 01/17/23 Room / Location: [facility] OR Anesthesia Start: 1128 Anesthesia Stop: 1343 Procedures: LAPAROSCOPIC REPAIR ANT. ABDOMINAL HERNIA(S) (IE, EPIGASTRIC, INCISIONAL, VENTRAL, UMBILICAL, SPIGELIAN), INITIAL, W-WO MESH; LESS THAN 3 CM, INCARCERATED OR STRANGULATED (WRVU 8.46) (Abdomen) MODIFIER MESH,COVIDIEN,PROGRIP,LAP (Abdomen) Diagnosis: (Ventral hernia) Surgeons: Lashae Lorenzo MD Responsible Provider: Elizabeth Pereira MD Anesthesia Type: general ASA Status: 3 All Anesthesia Providers: Anesthesiologist: Elizabeth Pereira MD BLASTING MINER: Cherry Valadez CRNA Vitals Value Taken Time BP 134/80 01/17/23 1515 Temp 36.2 ??C (97.2 ??F) 01/17/23 1515 Pulse 70 01/17/23 1520 Resp 13 01/17/23 1520 SpO2 93 % 01/17/23 1538 Pain Level Vitals shown include unvalidated device data. Patient Location: PACU/[facility] Level of Consciousness: Awake and Alert [...] 1.57) performed by Ana Dias MD at [facility] MAIN OR ? ? PRO BRNCHSC EBUS GUIDED SAMPL 3/> NODE STATION/STRUX N/A 09/11/2017 BRONCH, W ENDOBRONCHIAL ULTRASOUND (EBUS) GUIDED SAMPLING, 3+ NODES (WRVU 5.21) performed by Josh Guadarrama MD at [facility] ENDOSCOPY ??? PRO COLONOSCOPY, BIOPSY 01/27/2014 COLONOSCOPY FLEXIBLE, WITH BX performed by Natividad Taveras MD at [facility] ENDOSCOPY ??? PRO COLONOSCOPY, DIAGNOSTIC 02/17/2012 COLONOSCOPY, DIAGNOSTIC performed by ENRICO RUGGIERO at [facility] ENDOSCOPY ??? PRO COLONOSCOPY, DIAGNOSTIC 2012 COLONOSCOPY, DIAGNOSTIC performed by Natividad Taveras MD at [facility] ENDOSCOPY ??? PRO EXPLORE PARATHYROID GLANDS N/A 11/10/2017 PARATHYROIDECTOMY OR EXPLORATION OF PARATHYROID(S) (WRVU 15.6) performed by Ana Dias MD at [facility] MAIN OR ??? PRO NEEDLE BIOPSY LIVER 01/28/2012 ??? PRO UPPER GI ENDOSCOPY, BIOPSY N/A 10/21/2016 UPPER GASTROINTESTINAL ENDOSCOPY,WITH BIOPSY SINGLE OR MULTIPLE (WRVU 2.49) performed by Matthew Garcia MD at [facility] ENDOSCOPY ??? PRO UPPER GI ENDOSCOPY, DIAGNOSTIC N/A 10/21/2016 EGD, UPPER GI ENDOSCOPY performed by Matthew Garcia MD at [facility] ENDOSCOPY ??? UPPER GI ENDOSCOPY, EXAM 2012 UPPER GI ENDOSCOPY performed by Natividad Taveras MD at [facility] ENDOSCOPY Social History Tobacco Use ??? [...] Lactose Other (See Comments) GI Upset ??? Kirbfhtj-Ahuoigyepeg-Yjndwrynl Nausea and rash Medications: MAR and/or home [...] risks discussed with patient. Plan discussed with BLASTING MINER and attending. Anesthesia Screening Note: Date and [...] No recent COPD exacerbations. NM stress test ([facility]) 01/03/20 Ejection fraction was 73% with [...] obtaining updated labs. Will fax orders to [facility] per patient request. Kallie reports her breathing [...] with attending anesthesiologist Dr. Zuñiga. Katelynn Galvez, EXHIBIT ELECTRICIAN 01/09/23 Update (01/16/23): Labs from [facility] drawn 01/15/23 scanned under media. Hgb 10.5, [...] mg documented in this encounter Care Teams Motor Scooter Repairer Relationship Specialty Start Date End Date Grant Lindsey MD PCP - General Family Medicine 02/25/19 documented as of this encounter
--- OUTSIDE RECORDS SUMMARY | 2024-04-08 11:08 | XMS_ITS | Encounter Summary ---
Author [place] [address] Care Team Providers Care Remote Sensing Program Manager Name Role Phone Grant Lindsey MD Primary Care Provider [phone] Encounter Details Date Type Department Care Team (Latest Contact Info) Description 10/04/2022 12:30 PM EDT TH Visit (TeleHealth) [place] [phone] Lashae Lorenzo MD [facility] [place] [address] Upper abdominal pain Social History Tobacco Use [...] site documented in this encounter Care Teams Remote Sensing Program Manager Relationship Specialty Start Date End Date Grant Lindsey MD PCP - General Family Medicine 02/25/19 documented as of this encounter
--- OUTSIDE RECORDS SUMMARY | 2024-04-08 11:08 | XMS_ITS | Encounter Summary ---
[place] [address] Care Team Providers Care Binding Stitcher Name Role Phone Grant Lindsey MD Primary Care Provider Encounter Details Date Type Department Care Team (Latest Contact Info) Description 04/19/2020 11:15 AM EST Laboratory Appointment Lab [address] [place] [address] Hepatic cirrhosis, unspecified hepatic cirrhosis [...] hepatic cirrhosis type, unspecified whether ascites present CBC,PLT & AUTO DIFF Routine 04/19/2020 10:11 AM EST Hepatic cirrhosis, unspecified hepatic cirrhosis type, unspecified whether ascites present documented in this encounter Results * Differential, Automated (04/19/2020 10:11 AM EST) Neutrophil % 60.4 % [facility] Neutrophil Absolute 3.09 1.70 - 6.10 x10(3)/[facility] Lymph % 30.7 % [facility] Lymphocytes Abs 1.6 0.9 - 3.2 x10(3)/[facility] Monocyte % 6.1 % [facility] Monocyte Abs 0.3 0.3 - 0.9 x10(3)/[facility] Eos % 2.0 % [facility] Eosinophils Abs 0.1 0.0 - 0.4 x10(3)/[facility] Basophil % 0.4 % [facility] Baso Absolute 0.0 0.0 - 0.1 x10(3)/[facility] Immature Gran % 0.40 % [facility] Comment: Immature granulocytes(IG's)percentage and absolute count will include metamyelocytes, myelocytes, and promyelocytes. Blood smears from CBCs yielding IG's will be scanned manually for concordance. If this scan disagrees with the automated IG or if promyelocytes are noted, a manual differential will be performed. Immature Gran Absolute 0.02 0.00 - 0.04 x10(3)/[facility] Blood specimen (specimen) 04/19/2020 10:11 AM EST 04/19/2020 10:19 AM EST Narrative Resulting Agency Comment Spec In Lab Saniya Davis OFFSET PRINTING OPERATOR HEMATOLOGY ORDERAB LES [facility] [place] [address] * (ABNORMAL) Hemogram (04/19/2020 10:11 AM EST) Pathologist [facility] White Blood Cell 5.1 4.0 - 9.5 x10(3)/mc L [facility] Red Blood Cell 4.36 4.00 - 5.21 x10(6)/mc L [facility] Hemoglobin 11.9 11.7 - 15.5 gm/dL [facility] Hematocrit 36.6 35.7 - 45.8 % [facility] Mean Cell Volume 83.9 82.6 - 94.4 fL [facility] Mean Cell Hemoglobin 27.3 27.1 - 32.0 pg [facility] Mean Cell Hemoglobin Concentration 32.5 31.7 - 35.0 gm/dL [facility] Platelet 115(L) 145 - 357 x10(3)/mc L [facility] RDW Standard Deviation 42.3 37.0 - 46.0 fL [facility] RDW coefficient of variation 13.8 11.5 - 14.1 % [facility] Mean Platelet Volume 9.7 7.6 - 12.9 fL [facility] NRBC% auto 0.0 % [facility] NRBC Absolute 0.000 0.000 - 0.000 x10(3)/mc L [facility] Blood specimen (specimen) 04/19/2020 10:11 AM EST 04/19/2020 10:19 AM EST Narrative Resulting Agency Comment Spec In Lab Saniya Davis APRN HEMATOLOGY ORDERAB LES [facility] [place] [address] * (ABNORMAL) Prothrombin Time (04/19/2020 10:11 AM EST) Prothrombin Time 12.6(H) 9.4 - 12.5 sec [facility] International Normalization Ratio 1.1 [facility] Comment: An INR <2.0 indicates [...] Lab Saniya Davis APRN HEMATOLOGY ORDERAB LES [facility] [address] documented in this encounter Visit Diagnoses Diagnosis Hepatic cirrhosis, unspecified hepatic cirrhosis type, unspecified whether ascites present documented in this encounter Care Teams Binding Stitcher Relationship Specialty Start Date End Date Grant Lindsey MD PCP - General Family Medicine 02/25/19 documented as of this encounter
--- OUTSIDE RECORDS SUMMARY | 2024-04-08 11:08 | XMS_ITS | Encounter Summary ---
[place] [address] Care Team Providers Care Gum Machine Filler Name Role Phone Grant Lindsey MD Primary Care Provider [phone] Encounter Details Date Type Department Care Team (Latest Contact Info) Description 01/09/2023 9:00 AM EDT TH Visit (TeleHealth) [place] [phone] Hepatic cirrhosis, unspecified hepatic cirrhosis type, unspecified [...] present documented in this encounter Care Teams Gum Machine Filler Relationship Specialty Start Date End Date Grant Lindsey MD PCP - General Family Medicine 02/25/19 documented as of this encounter
--- OUTSIDE RECORDS SUMMARY | 2024-04-08 11:08 | XMS_ITS | Encounter Summary ---
[facility] Organization [facility] [place] [address] Care Team Providers Care User Interface Artist Name Role Phone Grant Lindsey MD Primary Care Provider Encounter Details Date Type Department Care Team (Latest Contact Info) Description 08/27/2022 8:30 AM EDT - 08/27/2022 11:59 PM EDT Hospital Encounter [place] [phone] Lashae Kenyon MD [facility] [place] [address] Ventral hernia without obstruction or gangrene Discharge [...] Primo Guthrie MD at 08/27/2022 9:33 AM Electronically signed by: Primo Guthrie MD, [facility] ([phone]), at 08/27/2022 9:33 AM Thank you for letting us participate in the care of this patient. If you are a health care provider and have any questions regarding this report, please contact the number above. For patients who have questions, please contact the health cna caregiver that requested your imaging first. ?Primo Guthrie, Staff Physician Electronically Signed Final Report ?? 08/27/2022 09:40 am Narrative 08/27/2022 9:41 AM EDT Abdominal ? (Signed Final 08/27/2022 09:40 am) PATIENT INFO: ID #: ? [id number] ?: ??[birth year] (62 yrs)(F) Name: ? KALLIE SMART ? Visit Date: 08/27/2022 08:55 am PERFORMED BY: Attending: ?[place] STOCKTON, Primo Resident: ? Melida Justin MD, Matthew Barraza Performed By: ? Erik Larsen RDMS Referred By: ?LASHAE KENYON Location: ? [place] SERVICE(S) PROVIDED: UABDLIM - Abdominal Limited Survey Single ? [id number] Organ or Quadrant - [id number] INDICATIONS: Small hernia containing a possible varix. [...] 08/27/2022 09:40 am) PATIENT INFO: ID #: [id number] : 60 (62 yrs)(F) Name: KALLIE SMART Visit Date: 08/27/2022 08:55 am PERFORMED BY: Attending: Primo Guthrie MD Resident: Matthew Mares MD Performed By: Erik Larsen RDMS Referred By: LASHAE KENYON Location: [place] SERVICE(S) PROVIDED: UABDLIM - Abdominal Limited Survey Single 79851 Organ or Quadrant - [id number] INDICATIONS: Small hernia containing a possible varix. [...] Primo Guthrie MD at 08/27/2022 9:33 AM Electronically signed by: Primo Guthrie MD, [facility] ([phone]), at 08/27/2022 9:33 AM Thank you for letting us participate in the care of this patient. If you are a health care provider and have any questions regarding this report, please contact the number above. For patients who have questions, please contact the health cna caregiver that requested your imaging first. Primo Guthrie, Staff Physician Electronically Signed Final Report 08/27/2022 09:40 am Lashae Kenyon MD IMG US GEN ORDERABLE S documented in this encounter Visit Diagnoses Diagnosis Ventral hernia without obstruction or gangrene Ventral hernia, unspecified, without mention of obstruction or gangrene documented in this encounter Care Teams User Interface Artist Relationship Specialty Start Date End Date Grant Lindsey MD PCP - General Family Medicine 02/25/19 documented as of this encounter
--- OUTSIDE RECORDS SUMMARY | 2024-04-08 11:08 | XMS_ITS | Encounter Summary ---
[place] [address] Care Team Providers Care Materials Director Name Role Phone Grant Lindsey MD Primary Care Provider [phone] Encounter Details Date Type Department Care Team (Latest Contact Info) Description 12/05/2022 11:45 AM EDT TH Visit (TeleHealth) [place] [phone] Lashae Lorenzo MD [facility] [place] [address] Ventral hernia without obstruction or gangrene Social [...] gangrene documented in this encounter Care Teams Materials Director Relationship Specialty Start Date End Date Grant Lindsey MD PCP - General Family Medicine 02/25/19 documented as of this encounter
--- OUTSIDE RECORDS SUMMARY | 2024-04-08 11:08 | XMS_ITS | Encounter Summary ---
[place] [address] Care Team Providers Care Registry Np Name Role Phone Grant Lindsey MD Primary Care Provider Encounter Details Date Type Department Care Team (Late st Contact Info) Description 09/18/2022 Orders Only [place] [address] Lashae Lorenzo MD [facility] [place] [address] Nicotine dependence with nicotine-induced disorder, unspecified nicotine [...] type documented in this encounter Care Teams Registry Np Relationship Specialty Start Date End Date Grant Lindsey MD PCP - General Family Medicine 02/25/19 documented as of this encounter
--- OUTSIDE RECORDS SUMMARY | 2024-04-08 11:08 | XMS_ITS | Encounter Summary ---
[place] [address] Care Team Providers Care Vp Strategic Partnerships Name Role Phone Grant Lindsey MD Primary Care Provider Reason for Referral * Consultation (Routine) - Closed Specialty Diagnoses / Procedures Referred By Contac t Referred To Contact Gastroenterology Diagnoses Gastric varices Portal hypertension Alcoholic cirrhosis, unspecified whether ascites present Anemia, unspecified type Varices/Portal hypertension/ alcholic cirrhosis- Saniya Patient Grant Lindsey MD [address] [place] [address] [place] [address] [facility] [place] [address] Referral ID Status Reason Start Date Expiration Date V isits Requested Visits Authorized [id number] Closed Consult, Test & Treat PCP Updated and/or Approved 01/11/2022 01/11/2023 12 12 Encounter Details Date Type Department Care Team (Late st Contact Info) Description 01/11/2022 Transcribe Orders eDH Incoming Referrals [phone] Grant Lindsey MD [address] [place] [address] [place] [address] Gastric varices; Portal hypertension; Alcoholic [...] type documented in this encounter Care Teams Vp Strategic Partnerships Relationship Specialty Start Date End Date Grant Lindsey MD PCP - General Family Medicine 02/25/19 documented as of this encounter
--- OUTSIDE RECORDS SUMMARY | 2024-04-08 11:08 | XMS_ITS | Encounter Summary ---
Author Organization [facility] [address] Care Team Providers Care Financial Center Manager Name Role Phone Grant Lindsey MD Primary Care Provider [phone] Encounter Details Date Type Department Care Team (Late st Contact Info) Description 02/10/2022 Orders [place] [address] Saniya Thomson APRN [facility] [place] [address] Hepatic cirrhosis, unspecified hepatic cirrhosis type, unspecified [...] Prothrombin Time 13.6(H) 9.4 - 12.5 sec [facility] International Normalization Ratio 1.2 [facility] Comment: An INR <2.0 indicates adequate [...] Lab Saniya Thomson APRN HEMATOLOGY ORDERAB LES [facility] [place] [address] * (ABNORMAL) Comprehensive metabolic panel (non-fasting) (05/30/2022 10:44 AM EST) Glucose 111 65 - 199 mg/dL [facility] Comment:Diabetes: >=200 mg/d L plus symptoms Blood Urea Nitrogen 9 8 - 18 mg/dL [facility] Creatinine 0.74 0.70 - 1.20 mg/dL [facility] Sodium 141 135 - 145 mmol/L [facility] Potassium 3.8 3.5 - 5.0 mmol/L [facility] Comment: Please note: ??Patients with WBC >100,000 may have falsely elevated Potassium levels. ??For accurate Potassium quantification in these patients send serum separator tube (gold top) for subsequent determinations. ??Contact the Clinical Chemistry Laboratory if there are any questions. Chloride 105 98 - 107 mmol/L [facility] Carbon Dioxide 23 22 - 31 mmol/L [facility] Anion Gap 13 5 - 15 mmol/L [facility] Calcium 8.9 8.5 - 10.5 mg/dL [facility] Protein, Total 6.9 6.1 - 8.0 g/dL [facility] Albumin 4.4 3.2 - 5.2 g/dL [facility] Aspartate Aminotransferase 34(H) 0 - 30 unit/L [facility] Alanine Aminotransferase 21 0 - 30 unit/L [facility] Alkaline Phosphatase 140(H) 35 - 105 unit/L [facility] Bilirubin, Total 0.3 0.2 - 1.3 mg/dL [facility] Est Glomerular Filtration Rate 92 >=60 mL/min/1. 73 m?? [facility] Comment: This patient's estimated GFR [...] Lab Saniya Thomson APRN CHEMISTRY ORDERABL ES Performing Organization Address City/State/[facility] Co de Phone Number [facility] [place] [address] * US Abdomen Limited Hepatology Protocol (05/30/2022 [...] ascites. Electronically signed by: Primo Guthrie MD, [facility] ([phone]), at 05/30/2022 11:42 AM Thank you for letting us participate in the care of this patient. If you are a health care provider and have any questions regarding this report, please contact the number above. For patients who have questions, please contact the health senior care manager that requested your imaging first. ?Primo Guthrie, Staff Physician Electronically Signed Final Report ?? 05/30/2022 11:49 am Narrative 05/30/2022 11:50 AM EST Abdominal ? (Signed Final 05/30/2022 11:49 am) PATIENT INFO: ID #: ? [id number] ?: ??60 (61 yrs)(F) Name: ? KALLIE Villalobos BUNDLE TIER AND LABELER ? Visit Date: 05/30/2022 09:14 am PERFORMED BY: Performed By: ? Grace Jones RDMS Attending: ?Primo Gutrhie MD Referred By: ?SANIYA Wilfredo MEDRANOBERTO Location: ? [place] [facility] Hep[facility] Protocol - Abdominal ?[id number] Limited Survey Single Organ or Quadrant - [id number] INDICATIONS: cirrhosis, screen for hcc COMPARISON: US: [...] 05/30/2022 11:49 am) PATIENT INFO: ID #: [id number] : 60 (61 yrs)(F) Name: KALLIE SMART Visit Date: 05/30/2022 09:14 am PERFORMED BY: Performed By: Grace Jones RDMS Attending: Primo Guthrie MD Referred By: SANIYA THOMSON Location: [place] SERVICE[facility]S) [facility] - Hepatology Protocol - Abdominal [id number] Limited Survey Single Organ or Quadrant - [id number] INDICATIONS: cirrhosis, screen for hcc COMPARISON: US: [...] ascites. Electronically signed by: Primo Guthrie MD, [facility] ([phone]), at 05/30/2022 11:42 AM Thank you for letting us participate in the care of this patient. If you are a health care provider and have any questions regarding this report, please contact the number above. For patients who have questions, please contact the health senior care manager that requested your imaging first. Primo Guthrie, Staff Physician Electronically Signed Final Report 05/30/2022 11:49 am Saniya Thomson APRN [facility] ORDERAB LES documented in this encounter Visit Diagnoses Diagnosis Hepatic cirrhosis, unspecified hepatic cirrhosis type, unspecified whether ascites present Hepatic cirrhosis, unspecified hepatic cirrhosis type, unspecified whether ascites present documented in this encounter Care Teams Financial Center Manager Relationship Specialty Start Date End Date Grant Lindsey MD PCP - General Family Medicine 02/25/19 documented as of this encounter
--- OUTSIDE RECORDS SUMMARY | 2024-04-08 11:08 | XMS_ITS | Encounter Summary ---
[place] [address] Care Team Providers Care Communication Center Operator Name Role Phone rGant Lindsey MD Primary Care Provider [phone] Encounter Details Date Type Department Care Team (Latest Contact Info) Description 05/30/2022 11:15 AM EST Laboratory Appointment Lab [address] [place] [id number] Hepatic cirrhosis, unspecified hepatic cirrhosis type, unspecified [...] 10:44 AM EST) Neutrophil % 58.7 % [facility] Neutrophil Absolute 2.63 1.70 - 6.10 x10(3)/[facility] Lymph % 30.5 % [facility] Lymphocytes Abs 1.4 0.9 - 3.2 x10(3)/[facility] Monocyte % 7.1 % [facility] Monocyte Abs 0.3 0.3 - 0.9 x10(3)/[facility] Eos % 3.1 % [facility] Eosinophils Abs 0.1 0.0 - 0.4 x10(3)/[facility] Basophil % 0.4 % [facility] Baso Absolute 0.0 0.0 - 0.1 x10(3)/[facility] Immature Gran % 0.20 % [facility] Comment: Immature granulocytes(IG's)percentage and absolute count will include metamyelocytes, myelocytes, and promyelocytes. Blood smears from CBCs yielding IG's will be scanned manually for concordance. If this scan disagrees with the automated IG or if promyelocytes are noted, a manual differential will be performed. Immature Gran Absolute 0.01 0.00 - 0.04 x10(3)/[facility] Blood 05/30/2022 10:4 4 AM EST 05/30/2022 10:47 AM EST Narrative Resulting Agency Comment Spec In Lab Saniya Davis FELT FINISHING SUPERVISOR HEMATOLOGY ORDERAB LES [facility] [place] [address] * (ABNORMAL) Hemogram (05/30/2022 10:44 AM EST) White Blood Cell 4.5 4.0 - 9.5 x10(3)/mc L [facility] Red Blood Cell 4.10 4.00 - 5.21 x10(6)/mc L [facility] Hemoglobin 11.3(L) 11.7 - 15.5 g/dL [facility] Hematocrit 35.2(L) 35.7 - 45.8 % [facility] Mean Cell Volume 85.9 82.6 - 94.4 fL [facility] Mean Cell Hemoglobin 27.6 27.1 - 32.0 pg [facility] Mean Cell Hemoglobin Concentration 32.1 31.7 - 35.0 g/dL [facility] Platelet 110(L) 145 - 357 x10(3)/mc L [facility] RDW Standard Deviation 45.7 37.0 - 46.0 fL [facility] RDW coefficient of variation 14.8(H) 11.5 - 14.1 % [facility] Mean Platelet Volume 10.0 7.6 - 12.9 fL [facility] NRBC% auto 0.0 % [facility] NRBC Absolute 0.000 0.000 - 0.000 x10(3)/mc L [facility] Blood 05/30/2022 10:4 4 AM EST 05/30/2022 10:47 AM EST Narrative Resulting Agency Comment Spec In Lab Saniya Davis APRN HEMATOLOGY ORDERAB LES [facility] [place] [address] * (ABNORMAL) Comprehensive metabolic panel (non-fasting) (05/30/2022 10:44 AM EST) Glucose 111 65 - 199 mg/dL [facility] Comment:Diabetes: >=200 mg/d L plus symptoms Blood Urea Nitrogen 9 8 - 18 mg/dL [facility] Creatinine 0.74 0.70 - 1.20 mg/dL [facility] Sodium 141 135 - 145 mmol/L [facility] Potassium 3.8 3.5 - 5.0 mmol/L [facility] Comment: Please note: ??Patients with WBC >100,000 may have falsely elevated Potassium levels. ??For accurate Potassium quantification in these patients send serum separator tube (gold top) for subsequent determinations. ??Contact the Clinical Chemistry Laboratory if there are any questions. Chloride 105 98 - 107 mmol/L [facility] Carbon Dioxide 23 22 - 31 mmol/L [facility] Anion Gap 13 5 - 15 mmol/L [facility] Calcium 8.9 8.5 - 10.5 mg/dL [facility] Protein, Total 6.9 6.1 - 8.0 g/dL [facility] Albumin 4.4 3.2 - 5.2 g/dL [facility] Aspartate Aminotransferase 34(H) 0 - 30 unit/L [facility] Alanine Aminotransferase 21 0 - 30 unit/L [facility] Alkaline Phosphatase 140(H) 35 - 105 unit/L [facility] Bilirubin, Total 0.3 0.2 - 1.3 mg/dL [facility] Est Glomerular Filtration Rate 92 >=60 mL/min/1. 73 m?? [facility] Comment: This patient's estimated GFR was [...] Lab Saniya Davis APRN CHEMISTRY ORDERABL ES [facility] [place] [address] * (ABNORMAL) Prothrombin Time (05/30/2022 10:44 AM EST) Prothrombin Time 13.6(H) 9.4 - 12.5 sec [facility] International Normalization Ratio 1.2 [facility] Comment: An INR <2.0 indicates adequate [...] Agency Comment Spec In Lab Saniya Davis FELT FINISHING SUPERVISOR HEMATOLOGY ORDERAB LES [facility] [place] [id number] documented in this encounter Visit Diagnoses Diagnosis Hepatic cirrhosis, unspecified hepatic cirrhosis type, unspecified whether ascites present documented in this encounter Care Teams Communication Center Operator Relationship Specialty Start Date End Date Grant Lindsey MD PCP - General Family Medicine 02/25/19 documented as of this encounter
--- OUTSIDE RECORDS SUMMARY | 2024-04-08 11:08 | XMS_ITS | Encounter Summary ---
[place] [address] Care Team Providers Care Student Dean Name Role Phone Grant Lindsey MD Primary Care Provider [phone] Reason for Visit * Reason Comments Follow Up Surgery Encounter Details Date Type Department Care Team (Late st Contact Info) Description 02/17/2023 2:45 PM EST Office [place] [phone] Lashae Lorenzo MD [facility] [place] [address] Hx of ventral hernia repair Social History Tobacco Use Types Packs/Day Years Used Date Smoking Tobacco: Former Cigarettes 0.3 30 1 - 01/17/2023 Smokeless Tobacco: Never Tobacco Cessation:Counseling Given: Not Answered Alcohol Use Standard Drinks/Week Comments Not Currently 0 (1 standard drink = 0.6 oz pur e alcohol) last drink was 2018 [facility] Inpatient Questions Answer Date Recorded Does [...] Lorenzo MD - 02/17/2023 2:45 PM EST [facility] General Surgery Postoperative Follow up Subjective: Kallie [...] Lorenzo MD General Surgery Minimally Invasive Surgery [phone] documented in this encounter Plan of Treatment Not on file documented as of this encounter Visit Diagnoses Diagnosis Hx of ventral hernia repair Personal history of surgery to other organs documented in this encounter Care Teams Student Dean Relationship Specialty Start Date End Date Grant Lindsey MD PCP - General Family Medicine 02/25/19 documented as of this encounter
--- OUTSIDE RECORDS SUMMARY | 2024-04-08 11:08 | XMS_ITS | Encounter Summary ---
[place] [address] Care Team Providers Care Edging Machine Operator Name Role Phone Grant Lindsey MD Primary Care Provider [phone] Reason for Visit * Auth/Cert (Routine) Specialty Diagnoses / Procedures Referred By Nicol sparks Referred To Contact Diagnoses Ventral hernia Ventral hernia Procedures PRO REPAIR AA HERNIA INITIAL < 3 CM INCARCERATED/STRANGULATED LAPAROSCOPIC REPAIR ANT. ABDOMINAL HERNIA(S) (IE, EPIGASTRIC, INCISIONAL, VENTRAL, UMBILICAL, SPIGELIAN), INITIAL, W-WO MESH; LESS THAN 3 CM, INCARCERATED OR STRANGULATED (WRVU 8.46) MODIFIER MESH,BARD VENTRALIGHT Lashae Lorenzo MD [facility] [place] [address] [facility] Referral ID Status Reason Start Date Expiration Date Visits Re quested Visits Authorized [id number] 1 1 Encounter Details Date Type Department Care Team (Latest Contact Info) Description 01/17/2023 9:39 AM EDT - 01/18/2023 12:53 PM EDT Hospital Encounter [place] [address] [facility] [place] [address] Hepatic cirrhosis, unspecified hepatic cirrhosis type, unspecified [...] Lactase Lactose Other (See Comments) GI Upset Whicjoca-Hgaaajyfugs-Oxkmlahsw Nausea and rash Outpatient Services/Studies: No discharge procedures on file. Scheduled Appointments: Future Appointments and Orders Future Appointments and Orders Future Appointments Provider Department Dept Phone 02/17/2023 2:45 PM Lashae Lorenzo MD General Surgery at [facility] Arrive at: Adult Basic Education Teacher Area Please dispose of unused excess opioids [...] hours please call the Surgery Clinic at [phone] before 5 PM on weekdays. For questions after hours and on weekends please call the hospital speeder machine operator at [phone] and ask for the General Surgery resident personal lines sales executive. They may not be familiar with your [...] yourself from the pain. Follow-up: Please call [phone] (clinic number for appointments) to confirm or change the date and time of your appointment. Future Appointments Date Time Provider Department Center 02/17/2023 2:45 PM Lashae Lorenzo MD [facility] SURG [facility] General Instructions None Future Appointments and Orders Future Appointments and Orders Future Appointments Provider Department Dept Phone 02/17/2023 2:45 PM Lashae Lorenzo MD General Surgery at [facility] Arrive at: Adult Basic Education Teacher Area 4L [phone] Please dispose of unused excess opioids before your appointment or bring them with you to the appointment and we will help you dispose of them correctly. Signed: Ramón Hendrix MD 01/18/23 Primary Avis Physician: MD [address] / [place] [address] documented in this encounter Discharge Instructions * [...] hours please call the Surgery Clinic at [phone] before 5 PM on weekdays. For questions after hours and on weekends please call the hospital speeder machine operator at [phone] and ask for the General Surgery resident personal lines sales executive. They may not be familiar with your [...] yourself from the pain. Follow-up: Please call [phone] (clinic number for appointments) to confirm or change the date and time of your appointment. Future Appointments Date Time Provider Department Center 02/17/2023 2:45 PM Lashae Lorenzo MD [facility] SURG [facility] documented in this encounter Medications at Time [...] Fonseca RN - 01/18/2023 12:53 PM EDT [facility] Short Stay Unit Discharge Note All relevant [...] to assist with transportation for this patient. Extract Mixer added RS to assist with transport for patient. Nursing states that patient is ready for discharge now. Extract Mixer called and spoke to patient. Patient states that they can get in and out of a private vehicle. Rs to arrange transport. Lady Briones RN, CM Pager-[phone] * Leo Moreira MD - 01/17/2023 4:53 [...] Miscellaneous Notes * Op Note - Lashae Lornezo MD - 01/17/2023 12:03 PM EDT [facility] Operative Note Patient Name: Kallie Darling : [id number] MR#: [id number] Case Date: 01/17/2023 Surgeon: Surgeon(s) and Role: [...] Hernia Initial < 3 Cm Incarcerated/Strangula sam ([id number]) 01/17/2023 11:31 AM EDT Ventral hernia POCT [...] Glucose, POC 149 65 - 199 mg/dL [facility] Comment: Supplemental ranges: <140 mg/dL before meals <180 mg/dL all other times of the day Blood 01/18/2023 6:52 AM EDT 01/18/2023 6:52 AM EDT Lashae Lorenzo MD POINT OF CARE TEST O RDERABLES [facility] [place] [address] * Differential, Automated (01/18/2023 12:40 AM EDT) Neutrophil % 60.6 % [facility] Neutrophil Absolute 2.05 1.70 - 6.10 x10(3)/[facility] Lymph % 27.8 % [facility] Lymphocytes Abs 0.9 0.9 - 3.2 x10(3)/[facility] Monocyte % 8.0 % [facility] Monocyte Abs 0.3 0.3 - 0.9 x10(3)/[facility] Eos % 2.7 % [facility] Eosinophils Abs 0.1 0.0 - 0.4 x10(3)/[facility] Basophil % 0.3 % [facility] Baso Absolute 0.0 0.0 - 0.1 x10(3)/[facility] Immature Gran % 0.60 % [facility] Comment: Immature granulocytes(IG's)percentage and absolute count will include metamyelocytes, myelocytes, and promyelocytes. Blood smears from CBCs yielding IG's will be scanned manually for concordance. If this scan disagrees with the automated IG or if promyelocytes are noted, a manual differential will be performed. Immature Gran Absolute 0.02 0.00 - 0.04 x10(3)/[facility] Blood 01/18/2023 12:4 0 AM EDT 01/18/2023 12:47 AM EDT Narrative Resulting Agency Comment Spec In Lab Leo Moreira MD HEMATOLOGY ORDERABLE S [facility] [place] [address] * (ABNORMAL) Hemogram (01/18/2023 12:40 AM EDT) White Blood Cell 3.4(L) 4.0 - 9.5 x10(3)/ L [facility] Red Blood Cell 3.47(L) 4.00 - 5.21 x10(6)/ L [facility] Hemoglobin 9.4(L) 11.7 - 15.5 g/dL [facility] Hematocrit 30.4(L) 35.7 - 45.8 % [facility] Mean Cell Volume 87.6 82.6 - 94.4 fL [facility] Mean Cell Hemoglobin 27.1 27.1 - 32.0 pg [facility] Mean Cell Hemoglobin Concentration 30.9(L) 31.7 - 35.0 g/dL [facility] Platelet 85(L) 145 - 357 x10(3)/ L [facility] RDW Standard Deviation 51.1(H) 37.0 - 46.0 fL [facility] RDW coefficient of variation 16.0(H) 11.5 - 14.1 % [facility] Mean Platelet Volume 10.2 7.6 - 12.9 fL [facility] NRBC% auto 0.0 % [facility] NRBC Absolute 0.000 0.000 - 0.000 x10(3)/mc L [facility] Blood 01/18/2023 12:4 0 AM EDT 01/18/2023 12:47 AM EDT Narrative Resulting Agency Comment Spec In Lab Leo Moreira MD HEMATOLOGY ORDERABLE S [facility] [place] [address] * (ABNORMAL) Basic Metabolic Panel (non-fasting) (01/18/2023 12:40 AM EDT) Glucose 118 65 - 199 mg/dL [facility] Comment:Diabetes: >=200 mg/d L plus symptoms Blood Urea Nitrogen 8 8 - 18 mg/dL [facility] Creatinine 0.61(L) 0.70 - 1.20 mg/dL [facility] Sodium 140 135 - 145 mmol/L [facility] Potassium 3.9 3.5 - 5.0 mmol/L [facility] Comment: Please note: ??Patients with WBC >100,000 may have falsely elevated Potassium levels. ??For accurate Potassium quantification in these patients send serum separator tube (gold top) for subsequent determinations. ??Contact the Clinical Chemistry Laboratory if there are any questions. Chloride 102 98 - 107 mmol/L [facility] Carbon Dioxide 26 22 - 31 mmol/L [facility] Anion Gap 12 5 - 15 mmol/L [facility] Calcium 8.9 8.5 - 10.5 mg/dL [facility] Est Glomerular Filtration Rate 101 >=60 mL/min/1. 73 m?? [facility] Comment: This patient's estimated GFR [...] In Lab Leo Moreira MD CHEMISTRY ORDERABLES [facility] [address] * POCT Glucose (01/17/2023 10:01 PM EDT) Glucose, POC 149 65 - 199 mg/dL [facility] Comment: Supplemental ranges: <140 mg/dL before meals <180 mg/dL all other times of the day Blood 01/17/2023 10:0 1 PM EDT 01/17/2023 10:01 PM EDT Lashae Lorenzo MD POINT OF CARE TEST O RDERABLES Performing Organization Address City/[facility]/ZIP Co de Phone Number [facility] [place] [address] * POCT Glucose (01/17/2023 5:06 PM EDT) Glucose, POC 158 65 - 199 mg/dL [facility] Comment: Supplemental ranges: <140 mg/dL before meals <180 mg/dL all other times of the day Blood 01/17/2023 5:06 PM EDT 01/17/2023 5:06 PM EDT Lashae Lorenzo MD POINT OF CARE TEST O RDERABLES [facility] [place] [address] * POCT Glucose (01/17/2023 10:48 AM EDT) Glucose, POC 110 65 - 199 mg/dL [facility] Comment: Supplemental ranges: <140 mg/dL before meals <180 mg/dL all other times of the day Blood 01/17/2023 10:4 8 AM EDT 01/17/2023 10:48 AM EDT Lashae Lorenzo MD POINT OF CARE TEST O RDERABLES [facility] [place] [address] * Differential, Automated (01/17/2023 10:04 AM EDT) Pathologist [facility] Neutrophil % 57.3 % [facility] Neutrophil Absolute 2.11 1.70 - 6.10 x10(3)/[facility] Lymph % 31.8 % [facility] Lymphocytes Abs 1.2 0.9 - 3.2 x10(3)/[facility] Monocyte % 7.6 % [facility] Monocyte Abs 0.3 0.3 - 0.9 x10(3)/[facility] Eos % 2.7 % [facility] Eosinophils Abs 0.1 0.0 - 0.4 x10(3)/[facility] Basophil % 0.3 % [facility] Baso Absolute 0.0 0.0 - 0.1 x10(3)/[facility] Immature Gran % 0.30 % [facility] Comment: Immature granulocytes(IG's)percentage and absolute count will include metamyelocytes, myelocytes, and promyelocytes. Blood smears from CBCs yielding IG's will be scanned manually for concordance. If this scan disagrees with the automated IG or if promyelocytes are noted, a manual differential will be performed. Immature Gran Absolute 0.01 0.00 - 0.04 x10(3)/[facility] Blood Venous Draw / Unknown 01/17/2023 10:04 AM EDT 01/17/2023 10:14 AM EDT Narrative Resulting Agency Comment Spec In Lab Katelynn Leonor CHILD DEVELOPMENT ASSISTANT HEMATOLOGY ORDERAB LES [facility] [place] [address] * (ABNORMAL) Hemogram (01/17/2023 10:04 AM EDT) White Blood Cell 3.7(L) 4.0 - 9.5 x10(3)/mc L [facility] Red Blood Cell 3.76(L) 4.00 - 5.21 x10(6)/mc L [facility] Hemoglobin 10.1(L) 11.7 - 15.5 g/dL [facility] Hematocrit 32.5(L) 35.7 - 45.8 % [facility] Mean Cell Volume 86.4 82.6 - 94.4 fL [facility] Mean Cell Hemoglobin 26.9(L) 27.1 - 32.0 pg [facility] Mean Cell Hemoglobin Concentration 31.1(L) 31.7 - 35.0 g/dL [facility] Platelet 89(L) 145 - 357 x10(3)/mc L [facility] RDW Standard Deviation 51.1(H) 37.0 - 46.0 fL [facility] RDW coefficient of variation 16.2(H) 11.5 - 14.1 % [facility] Mean Platelet Volume 9.6 7.6 - 12.9 fL [facility] NRBC% auto 0.0 % [facility] NRBC Absolute 0.000 0.000 - 0.000 x10(3)/mc L [facility] Blood Venous Draw / Unknown 01/17/2023 10:04 AM EDT 01/17/2023 10:14 AM EDT Narrative Resulting Agency Comment Spec In Lab Katelynn Galvez RADHA HEMATOLOGY ORDERAB LES [facility] [place] [address] * (ABNORMAL) Comprehensive metabolic panel (non-fasting) (01/17/2023 10:04 AM EDT) Glucose 108 65 - 199 mg/dL [facility] Comment:Diabetes: >=200 mg/d L plus symptoms Blood Urea Nitrogen 10 8 - 18 mg/dL [facility] Creatinine 0.79 0.70 - 1.20 mg/dL [facility] Sodium 139 135 - 145 mmol/L [facility] Potassium 3.9 3.5 - 5.0 mmol/L [facility] Comment: Please note: ??Patients with WBC >100,000 may have falsely elevated Potassium levels. ??For accurate Potassium quantification in these patients send serum separator tube (gold top) for subsequent determinations. ??Contact the Clinical Chemistry Laboratory if there are any questions. Chloride 101 98 - 107 mmol/L [facility] Carbon Dioxide 25 22 - 31 mmol/L [facility] Anion Gap 13 5 - 15 mmol/L [facility] Calcium 9.4 8.5 - 10.5 mg/dL [facility] Protein, Total 6.9 6.1 - 8.0 g/dL [facility] Albumin 4.5 3.2 - 5.2 g/dL [facility] Aspartate Aminotransferase 46(H) 0 - 30 unit/L [facility] Alanine Aminotransferase 21 0 - 30 unit/L [facility] Alkaline Phosphatase 168(H) 35 - 105 unit/L [facility] Bilirubin, Total 0.5 0.2 - 1.3 mg/dL [facility] Est Glomerular Filtration Rate 85 >=60 mL/min/1. 73 m?? [facility] Comment: This patient's estimated GFR [...] Lab Katelynn Galvez APRN CHEMISTRY ORDERABL ES [facility] [place] [address] * (ABNORMAL) Prothrombin Time (01/17/2023 10:04 AM EDT) Prothrombin Time 14.0(H) 9.4 - 12.5 sec [facility] International Normalization Ratio 1.2 [facility] Comment: An INR <2.0 indicates [...] APRN HEMATOLOGY ORDERAB LES Performing Organization Address [facility] Co de Phone Number [facility] [place] [address] * SCAN DOC: IMPLANTABLE DEVICES (01/17/2023 12:00 [...] 24 HOURS SCHEDULED (Daily), First dose on 10/7/23 at 0900, Until Discontinued, Routine Given 01/18/2023 [...] PRN, Starting on Fri01/17/23 at 1837, Until Fri01/18/23 at 1459, Low blood sugar, For BG [...] 100 mg, Oral, NIGHTLY, First dose on 10/6/23 at 2100, Until Discontinued, DO NOT SPLIT, [...] on Fri01/18/23 at 0800, Until Discontinued, Routine 0843 (Given - Provid [...] on 01/18/23 at 0900, Until Discontinued, Routine 08 (Given [...] Discontinued, DO NOT CRUSH OR OPEN, Routine 0843 (Given - Provid er: Ary Fonseac RN) senna-docusate (Pericolace) 8.6-50 mg per tablet [...] 2100, Until Discontinued, Recovery (Recovery-Hospital Unit), Routine 2100 (Given - Provider: Leatha Macias LPN) 0844 [...] Pain, Routine 1446 (Given - Provider: Deborah Quinones RN)7301 (Given - Provider: Leatha Macias LPN) 5693 (Given - Provider: Ary Fonseca RN) polyethylene [...] hours documented in this encounter Care Teams Edging Machine Operator Relationship Specialty Start Date End Date Grant Lindsey MD PCP - General Family Medicine 02/25/19 documented as of this encounter
--- OUTSIDE RECORDS SUMMARY | 2024-04-08 11:08 | XMS_ITS | Encounter Summary ---
[place] [address] Care Team Providers Care Cleat Layer Name Role Phone Grant Lindsey MD Primary Care Provider [phone] Encounter Details Date Type Department Care Team (Late st Contact Info) Description 01/07/2023 Telephone [place] [phone] Janie Lira, RN Social History Tobacco Use [...] on filedocumented in this encounter Care Teams Cleat Layer Relationship Specialty Start Date End Date Grant Lindsey MD PCP - General Family Medicine 02/25/19 documented as of this encounter
--- OUTSIDE RECORDS SUMMARY | 2024-04-08 11:08 | XMS_ITS | Encounter Summary ---
[place] [address] Care Team Providers Care Crystal Grinder Name Role Phone Grant Lindsey MD Primary Care Provider [phone] Reason for Visit * Auth/Cert (Routine) Specialty Diagnoses / Procedures Referred By Nicol sparks Referred To Contact Diagnoses Ventral hernia Ventral hernia Procedures PRO REPAIR AA HERNIA INITIAL < 3 CM INCARCERATED/STRANGULATED LAPAROSCOPIC REPAIR ANT. ABDOMINAL HERNIA(S) (IE, EPIGASTRIC, INCISIONAL, VENTRAL, UMBILICAL, SPIGELIAN), INITIAL, W-WO MESH; LESS THAN 3 CM, INCARCERATED OR STRANGULATED (WRVU 8.46) MODIFIER MESH,BARD VENTRALIGHT Lashae Lorenzo MD [facility] [place] [address] [facility] Referral ID Status Reason Start Date Expiration Date Visits Re quested Visits Authorized [id number] 1 1 Encounter Details Date Type Department Care Team (Late st Contact Info) Description 01/17/2023 11:21 AM EDT - 01/17/2023 1:36 PM EDT Surgery Main Operating [place] [address] [facility] [place] [address] LAPAROSCOPIC REPAIR ANT. ABDOMINAL HERNIA(S) [...] Lactase Lactose Other (See Comments) GI Upset Yzpmuhtn-Vmwxkxzwsnc-Vefretezw Nausea and rash Outpatient Services/Studies: No discharge procedures on file. Scheduled Appointments: Future Appointments and Orders Future Appointments and Orders Future Appointments Provider Department Dept Phone 02/17/2023 2:45 PM Lashae Lorenzo MD General [place] [facility] [place] at: [facility] Please dispose of unused excess opioids [...] hours please call the Surgery Clinic at [phone] before 5 PM on weekdays. For questions after hours and on weekends please call the hospital tool planer set up operator at [phone] and ask for the General Surgery resident industrial economist. They may not be familiar with your [...] yourself from the pain. Follow-up: Please call [phone] (clinic number for appointments) to confirm or change the date and time of your appointment. Future Appointments Date Time Provider Department Center 02/17/2023 2:45 PM Lashae Lorenzo MD [facility] General Instructions None Future Appointments and Orders Future Appointments and Orders Future Appointments Provider Department Dept Phone 02/17/2023 2:45 PM Lashae Lorenzo MD General Surgery at [facility] [place]rive at: [facility] 4L [phone] Please dispose of unused excess opioids before your appointment or bring them with you to the appointment and we will help you dispose of them correctly. Signed: Ramón Hendrix MD 01/18/23 Primary [facility] Physician: MD [address] / [facility] [id number] documented in this encounter Discharge Instructions * [...] hours please call the Surgery Clinic at [phone] before 5 PM on weekdays. For questions after hours and on weekends please call the hospital tool planer set up operator at [phone] and ask for the General Surgery resident industrial economist. They may not be familiar with your [...] yourself from the pain. Follow-up: Please call [phone] (clinic number for appointments) to confirm or change the date and time of your appointment. Future Appointments Date Time Provider Department Center 02/17/2023 2:45 PM Lashae Lorenzo MD [facility] documented in this encounter Medications at Time [...] Fonseca RN - 01/18/2023 12:[address] [facility] Short Stay Unit Discharge Note All [...] to assist with transportation for this patient. Appraiser Irrigation Tax added RS to assist with transport for patient. Nursing states that patient is ready for discharge now. Appraiser Irrigation Tax called and spoke to patient. Patient states that they can get in and out of a private vehicle. Rs to arrange transport. Lady Briones RN, CM [phone] * Leo Moreira MD - 01/17/2023 4:53 [...] Lorenzo MD - 01/17/2023 12:03 PM EDT [facility] Operative Note Patient Name: Kallie Darilng : [id number] MR#: [id number] Case Date: 01/17/2023 Surgeon: Surgeon(s) and Role: [...] Hernia Initial < 3 Cm Incarcerated/[place] sam ([id number]) 01/17/2023 11:31 AM EDT Ventral hernia POCT [...] Glucose, POC 149 65 - 199 mg/dL [facility] Comment: Supplemental ranges: <140 mg/dL before meals <180 mg/dL all other times of the day Blood 01/18/2023 6:52 AM EDT 01/18/2023 6:52 AM EDT Lashae Lorenzo MD POINT OF CARE TEST O RDERABLES [facility] [place] [address] * Differential, Automated (01/18/2023 12:40 AM EDT) Neutrophil % 60.6 % [facility] Neutrophil Absolute 2.05 1.70 - 6.10 x10(3)/mcL [facility] Lymph % 27.8 % [facility] Lymphocytes Abs 0.9 0.9 - 3.2 x10(3)/[facility] Monocyte % 8.0 % [facility] Monocyte Abs 0.3 0.3 - 0.9 x10(3)/[facility] Eos % 2.7 % [facility] Eosinophils Abs 0.1 0.0 - 0.4 x10(3)/[facility] Basophil % 0.3 % [facility] Baso Absolute 0.0 0.0 - 0.1 x10(3)/[facility] Immature Gran % 0.60 % [facility] Comment: Immature granulocytes(IG's)percentage and absolute count will include metamyelocytes, myelocytes, and promyelocytes. Blood smears from CBCs yielding IG's will be scanned manually for concordance. If this scan disagrees with the automated IG or if promyelocytes are noted, a manual differential will be performed. Immature Gran Absolute 0.02 0.00 - 0.04 x10(3)/[facility] Blood 01/18/2023 12:4 0 AM EDT 01/18/2023 12:47 AM EDT Narrative Resulting Agency Comment Spec In Lab Leo Moreira MD HEMATOLOGY ORDERABLE S [facility] [place] [address] * (ABNORMAL) Hemogram (01/18/2023 12:40 AM EDT) White Blood Cell 3.4(L) 4.0 - 9.5 x10(3)/mc L [facility] Red Blood Cell 3.47(L) 4.00 - 5.21 x10(6)/mc L [facility] Hemoglobin 9.4(L) 11.7 - 15.5 g/dL [facility] Hematocrit 30.4(L) 35.7 - 45.8 % [facility] Mean Cell Volume 87.6 82.6 - 94.4 fL [facility] Mean Cell Hemoglobin 27.1 27.1 - 32.0 pg [facility] Mean Cell Hemoglobin Concentration 30.9(L) 31.7 - 35.0 g/dL [facility] Platelet 85(L) 145 - 357 x10(3)/mc L [facility] RDW Standard Deviation 51.1(H) 37.0 - 46.0 fL [facility] RDW coefficient of variation 16.0(H) 11.5 - 14.1 % [facility] Mean Platelet Volume 10.2 7.6 - 12.[address] [facility] NRBC% auto 0.0 % [facility] NRBC Absolute 0.000 0.000 - 0.000 x10(3)/mc L [facility] Blood 01/18/2023 12:4 0 AM EDT 01/18/2023 12:47 AM EDT Narrative Resulting Agency Comment Spec In Lab Leo Moreira MD HEMATOLOGY ORDERABLE S Performing Organization Address City/State/[facility] Co de Phone Number [facility] [place] [address] * (ABNORMAL) Basic Metabolic Panel (non-fasting) (01/18/2023 12:40 AM EDT) Glucose 118 65 - 199 mg/dL [facility] Comment:Diabetes: >=200 mg/d L plus symptoms Blood Urea Nitrogen 8 8 - 18 mg/dL [facility] Creatinine 0.61(L) 0.70 - 1.20 mg/dL [facility] Sodium 140 135 - 145 mmol/L [facility] Potassium 3.9 3.5 - 5.0 mmol/L [facility] Comment: Please note: ??Patients with WBC >100,000 may have falsely elevated Potassium levels. ??For accurate Potassium quantification in these patients send serum separator tube (gold top) for subsequent determinations. ??Contact the Clinical Chemistry Laboratory if there are any questions. Chloride 102 98 - 107 mmol/L [facility] Carbon Dioxide 26 22 - 31 mmol/L [facility] Anion Gap 12 5 - 15 mmol/L [facility] Calcium 8.9 8.5 - 10.5 mg/dL [facility] Est Glomerular Filtration Rate 101 >=60 mL/min/1. 73 m?? [facility] Comment: This patient's estimated [...] Moreira MD CHEMISTRY ORDERABLES Performing Organization Address [facility] Co de Phone Number [facility] [place] [address] * POCT Glucose (01/17/2023 10:01 PM EDT) Glucose, POC 149 65 - 199 mg/dL [facility] Comment: Supplemental ranges: <140 mg/dL before meals <180 mg/dL all other times of the day Blood 01/17/2023 10:0 1 PM EDT 01/17/2023 10:01 PM EDT Lashae Lorenzo MD POINT OF CARE TEST O RDERABLES Performing Organization Address [facility] Co de Phone Number [facility] [place] [address] * POCT Glucose (01/17/2023 5:06 PM EDT) Glucose, POC 158 65 - 199 mg/dL [facility] Comment: Supplemental ranges: <140 mg/dL before meals <180 mg/dL all other times of the day Blood 01/17/2023 5:06 PM EDT 01/17/2023 5:06 PM EDT Lashae Lorenzo MD POINT OF CARE TEST O RDERAOSWALDO Performing Organization Address [facility] [place] [address] * POCT Glucose (01/17/2023 10:48 AM EDT) Glucose, POC 110 65 - 199 mg/dL [facility] Comment: Supplemental ranges: <140 mg/dL before meals <180 mg/dL all other times of the day Blood 01/17/2023 10:4 8 AM EDT 01/17/2023 10:48 AM EDT Lashae Lorenzo MD POINT OF CARE [place] [address] * Differential, Automated (01/17/2023 10:04 AM EDT) Pathologist [facility] Neutrophil % 57.3 % [facility] Neutrophil Absolute 2.11 1.70 - 6.10 x10(3)/[facility] Lymph % 31.8 % [facility] Lymphocytes Abs 1.2 0.9 - 3.2 x10(3)/[facility] Monocyte % 7.6 % [facility] Monocyte Abs 0.3 0.3 - 0.9 x10(3)/[facility] Eos % 2.7 % [facility] Eosinophils Abs 0.1 0.0 - 0.4 x10(3)/[facility] Basophil % 0.3 % [facility] Baso Absolute 0.0 0.0 - 0.1 x10(3)/[facility] Immature Gran % 0.30 % [facility] Comment: Immature granulocytes(IG's)percentage and absolute count will include metamyelocytes, myelocytes, and promyelocytes. Blood smears from CBCs yielding IG's will be scanned manually for concordance. If this scan disagrees with the automated IG or if promyelocytes are noted, a manual differential will be performed. Immature Gran Absolute 0.01 0.00 - 0.04 x10(3)/[facility] Blood Venous Draw / Unknown 01/17/2023 10:04 AM EDT 01/17/2023 10:14 AM EDT Narrative Resulting Agency Comment Spec In Lab Katelynn Galvez CHILD CARE GROUP LEADER HEMATOLOGY ORDERAB LES [facility] [place] [address] * (ABNORMAL) Hemogram (01/17/2023 10:04 AM EDT) White Blood Cell 3.7(L) 4.0 - 9.5 x10(3)/mc L [facility] Red Blood Cell 3.76(L) 4.00 - 5.21 x10(6)/mc L [facility] Hemoglobin 10.1(L) 11.7 - 15.5 g/dL [facility] Hematocrit 32.5(L) 35.7 - 45.8 % [facility] Mean Cell Volume 86.4 82.6 - 94.4 fL [facility] Mean Cell Hemoglobin 26.9(L) 27.1 - 32.0 pg [facility] Mean Cell Hemoglobin Concentration 31.1(L) 31.7 - 35.0 g/dL [facility] Platelet 89(L) 145 - 357 x10(3)/mc L [facility] RDW Standard Deviation 51.1(H) 37.0 - 46.0 fL [facility] RDW coefficient of variation 16.2(H) 11.5 - 14.1 % [facility] Mean Platelet Volume 9.6 7.6 - 12.9 fL [facility] NRBC% auto 0.0 % [facility] NRBC Absolute 0.000 0.000 - 0.000 x10(3)/mc L [facility] Blood Venous Draw / Unknown 01/17/2023 10:04 AM EDT 01/17/2023 10:14 AM EDT Narrative Resulting Agency Comment Spec In Lab Katelynn Galvez APRN HEMATOLOGY ORDERAB LES [facility] [place] [address] * (ABNORMAL) Comprehensive metabolic panel (non-fasting) (01/17/2023 10:04 AM EDT) Glucose 108 65 - 199 mg/dL [facility] Comment:Diabetes: >=200 mg/d L plus symptoms Blood Urea Nitrogen 10 8 - 18 mg/dL [facility] Creatinine 0.79 0.70 - 1.20 mg/dL [facility] Sodium 139 135 - 145 mmol/L [facility] Potassium 3.9 3.5 - 5.0 mmol/L [facility] Comment: Please note: ??Patients with WBC >100,000 may have falsely elevated Potassium levels. ??For accurate Potassium quantification in these patients send serum separator tube (gold top) for subsequent determinations. ??Contact the Clinical Chemistry Laboratory if there are any questions. Chloride 101 98 - 107 mmol/L [facility] Carbon Dioxide 25 22 - 31 mmol/L [facility] Anion Gap 13 5 - 15 mmol/L [facility] Calcium 9.4 8.5 - 10.5 mg/dL [facility] Protein, Total 6.9 6.1 - 8.0 g/dL [facility] Albumin 4.5 3.2 - 5.2 g/dL [facility] Aspartate Aminotransferase 46(H) 0 - 30 unit/L [facility] Alanine Aminotransferase 21 0 - 30 unit/L [facility] Alkaline Phosphatase 168(H) 35 - 105 unit/L [facility] Bilirubin, Total 0.5 0.2 - 1.3 mg/dL [facility] Est Glomerular Filtration Rate 85 >=60 mL/min/1. 73 m?? [facility] Comment: This patient's estimated [...] APRN CHEMISTRY ORDERABL ES Performing Organization Address [facility]/ZIP Co de Phone Number [facility] [place] [address] * (ABNORMAL) Prothrombin Time (01/17/2023 10:04 AM EDT) Prothrombin Time 14.0(H) 9.4 - 12.5 sec [facility] International Normalization Ratio 1.2 [facility] Comment: An INR <2.0 [...] APRN HEMATOLOGY ORDERAB LES Performing Organization Address [facility] Co de Phone Number [facility] [place] [address] * SCAN DOC: IMPLANTABLE DEVICES (01/17/2023 12:00 [...] hours documented in this encounter Care Teams Crystal Grinder Relationship Specialty Start Date End Date Grant Lindsey MD PCP - General Family Medicine 02/25/19 documented as of this encounter
--- OUTSIDE RECORDS SUMMARY | 2024-04-08 11:08 | XMS_ITS | Encounter Summary ---
Author Organization [facility] [place] [address] Care Team Providers Care Restaurant Assistant Name Role Phone Grant Lindsey MD Primary Care Provider [phone] Encounter Details Date Type Department Care Team (Late st Contact Info) Description 07/15/2022 Ancillary Procedure Radiology Library at [facility] [place] [id number] Grant Lindsey MD [address] [place] [address] [place] [address] Social History Tobacco Use Types Packs/Day Years [...] & Pelvis (07/15/2022 12:00 AM EDT) Narrative RAD - 07/30/2022 4:25 PM EDT This exam is auto-finalizing. It's purpose is for storage only. Grant Lindsey MD [facility] FILM LIBRARY ORD ERABLES [place], [place] documented in this encounter Visit Diagnoses Not on filedocumented in this encounter Care Teams Restaurant Assistant Relationship Specialty Start Date End Date Grant Lindsey MD PCP - General Family Medicine 02/25/19 documented as of this encounter
--- OUTSIDE RECORDS SUMMARY | 2024-04-08 11:08 | XMS_ITS | Encounter Summary ---
Author Organization [facility] [place] [address] Care Team Providers Care Stone Sandblaster Name Role Phone Grant Lindsey MD Primary Care Provider [phone] Reason for Visit * Consultation (Routine) - Closed Specialty Diagnoses / Procedures Referred By Contmisael t Referred To Contact Gastroenterology Diagnoses Gastric varices Portal hypertension Alcoholic cirrhosis, unspecified whether ascites present Anemia, unspecified type Varices/Portal hypertension/ alcholic cirrhosis- Grant Ingram MD [address] [place] [address] [place] [address] [facility] [address] [place] [address] Referral ID Status Reason Start Date Expiration Date V isits Requested Visits Authorized [id number] Closed Consult, Test & Treat PCP Updated and/or Approved 01/11/2022 01/11/2023 12 12 Encounter Details Date Type Department Care Team (Late st Contact Info) Description 05/30/2022 11:30 AM EST Office [place] [address] Saniya Davis, PBX TEACHER [facility] [address] Hepatic cirrhosis, unspecified hepatic cirrhosis [...] that medication. Medications managed by Katelynn at [facility] in [facility]. WIll check with Dr. Lindsey [...] vental hernia surgical repair (05/11/19) done at [facility], no ascites afterwards Preventative Health 1. HAV/HBV: [...] Lactose Other (See Comments) GI Upset ??? Gqeswynu-Dqfogvvitnh-Cwpfohzdb Nausea and rash Physical Examination: . Vitals: [...] Davis APRN Section of Gastroenterology [place] [address] Grant Lindsey MD [address] [place] [address] [place] [address] Time spent reviewing records prior to this [...] present documented in this encounter Care Teams Stone Sandblaster Relationship Specialty Start Date End Date Grant Lindsey MD PCP - General Family Medicine 02/25/19 documented as of this encounter
--- OUTSIDE RECORDS SUMMARY | 2024-04-08 11:08 | XMS_ITS | Encounter Summary ---
[place] [address] Care Team Providers Care Cold Storage Superintendent Name Role Phone Grant Lindsey MD Primary Care Provider Reason for Referral * Consultation (Routine) - Closed Specialty Diagnoses / Procedures Referred By Nicol sparks Referred To Contact Podiatry Diagnoses Pain in right foot Procedures VASCULAR SURGERY Gilmar Pearson PA [address] [place] [address] [facility] [place] [address] Referral ID Status Reason Start Date Expiration Date V isits Requested Visits Authorized [id number] Closed Consult, Test & Treat PCP Updated and/or Approved 07/15/2023 07/14/2024 6 6 Encounter Details Date Type Department Care Team (Late st Contact Info) Description 07/15/2023 Transcribe Orders eDH Incoming Referrals [phone] Gilmar Pearson PA [address] [place] [address] Pain in right foot Social [...] limb documented in this encounter Care Teams Cold Storage Superintendent Relationship Specialty Start Date End Date Grant Lindsey MD PCP - General Family Medicine 02/25/19 documented as of this encounter
--- OUTSIDE RECORDS SUMMARY | 2024-04-08 11:08 | XMS_ITS | Encounter Summary ---
[place] [address] Care Team Providers Care Consulting Services Manager Name Role Phone Grant Lindsey MD [...] on filedocumented in this encounter Care Teams Consulting Services Manager Relationship Specialty Start Date End Date Grant Lindsey MD PCP - General Family Medicine 02/25/19 documented as of this encounter
--- OUTSIDE RECORDS SUMMARY | 2024-04-08 11:08 | XMS_ITS | Encounter Summary ---
[place] [address] Care Team Providers Care Police Artist Name Role Phone Grant Lindsey MD Primary Care Provider [phone] Reason for Referral * Consultation (Routine) - Closed Specialty Diagnoses / Procedures Referred By Nicol sparks Referred To Contact General Surgery Diagnoses Incisional hernia, without obstruction or gangrene Marybel Loaiza DO [address] [place] [address] [address] [place] [address] [facility] Gen Surgery [address] [place] [phone] Referral ID Status Reason Start Date Expiration Date V isits Requested Visits Authorized [id number] Closed Consult, Test & Treat PCP Updated and/or Approved 07/16/2022 07/16/2023 6 6 Encounter Details Date Type Department Care Team (Late st Contact Info) Description 07/16/2022 Transcribe Orders eDH Incoming Referrals [phone] Marybel Loaiza DO [address] [place] [address] [address] [place], [place] [id number] Incisional hernia, without obstruction or gangrene Social [...] gangrene documented in this encounter Care Teams Police Artist Relationship Specialty Start Date End Date Grant Lindsey MD PCP - General Family Medicine 02/25/19 documented as of this encounter
--- OUTSIDE RECORDS SUMMARY | 2024-04-08 11:08 | XMS_ITS | Encounter Summary ---
[place] [address] Care Team Providers Care Fiberglass Boat Parts Finisher Name Role Phone Grant Lindsey MD Primary Care Provider [phone] Reason for Visit * Reason Comments Establish Care * Consultation (Routine) - Closed Specialty Diagnoses / Procedures Referred By Nicol sparks Referred To Contact General Surgery Diagnoses Incisional hernia, without obstruction or gangrene Marybel Loaiza, DO [address] [place] [address] [facility] Gen Surgery [address] [place] [address] Referral ID Status Reason Start Date Expiration Date V isits Requested Visits Authorized [id number] Closed Consult, Test & Treat PCP Updated and/or Approved 07/16/2022 07/16/2023 6 6 Encounter Details Date Type Department Care Team (Late st Contact Info) Description 08/19/2022 2:00 PM EDT Office [place] [address] Lashae Kenyon MD [facility] [place] [address] Ventral hernia without obstruction or [...] Kenyon MD - 08/19/2022 2:00 PM EDT [facility] General Surgery History and Physical History of [...] 1.57) performed by Ana Dias MD at [facility] MAIN OR ? ? PRO [facility] EBUS GUIDED SAMPL 3/> NODE STATION/STRUX N/A 09/11/2017 BRONCH, W ENDOBRONCHIAL ULTRASOUND (EBUS) GUIDED SAMPLING, 3+ NODES (WRVU 5.21) performed by Josh Guadarrama MD at [facility] ENDOSCOPY ??? PRO COLONOSCOPY, BIOPSY 01/27/2014 COLONOSCOPY FLEXIBLE, WITH BX performed by Natividad Taveras MD at [facility] ENDOSCOPY ??? PRO COLONOSCOPY, DIAGNOSTIC 02/17/2012 COLONOSCOPY, DIAGNOSTIC performed by ENRICO RUGGIERO at [facility] ENDOSCOPY ??? PRO COLONOSCOPY, DIAGNOSTIC 2012 COLONOSCOPY, DIAGNOSTIC performed by Natividad Taveras MD at [facility] ENDOSCOPY ??? PRO EXPLORE PARATHYROID GLANDS N/A 11/10/2017 PARATHYROIDECTOMY OR EXPLORATION OF PARATHYROID(S) (WRVU 15.6) performed by Ana Dias MD at [facility] MAIN OR ??? PRO NEEDLE BIOPSY LIVER 01/28/2012 ??? PRO UPPER GI ENDOSCOPY, BIOPSY N/A 10/21/2016 UPPER GASTROINTESTINAL ENDOSCOPY,WITH BIOPSY SINGLE OR MULTIPLE (WRVU 2.49) performed by Matthew Garcia MD at [facility] ENDOSCOPY ??? PRO UPPER GI ENDOSCOPY, DIAGNOSTIC N/A 10/21/2016 EGD, UPPER GI ENDOSCOPY performed by Matthew Garcia MD at [facility] ENDOSCOPY ??? UPPER GI ENDOSCOPY, EXAM 2012 UPPER GI ENDOSCOPY performed by Natividad Taveras MD at [facility] ENDOSCOPY ventral hernia repair--- [facility]; with [...] Adhesive, Amoxicillin, Aspirin, Celecoxib, Lactase, Lactose, and Upaadbep-kpnghiotzsk-tjxtkgapo Family History: Family History Problem Relation Age [...] Kenyon MD General Surgery Minimally Invasive Surgery [phone] documented in this encounter Plan of Treatment [...] AM Electronically signed by: Primo Guthrie MD, [facility] ([phone]), at 08/27/2022 9:33 AM Thank you for letting us participate in the care of this patient. If you are a health care provider and have any questions regarding this report, please contact the number above. For patients who have questions, please contact the health congregational care pastor that requested your imaging first. ?Primo Guthrie Staff Physician Electronically Signed Final Report ?? 08/27/2022 09:40 am Narrative 08/27/2022 9:41 AM EDT Abdominal ? (Signed Final 08/27/2022 09:40 am) PATIENT INFO: ID #: ? [id number] ?: ??60 (62 yrs)(F) Name: ? KALLIE SMART ? Visit Date: 08/27/2022 08:55 am PERFORMED BY: Attending: ?Cleveland STOCKTON, Primo Resident: ? Melida Justin MD, Matthew Barraza Performed By: ? Erik Larsen RDMS Referred By: ?LASHAE KENYON Location: ? [place] SERVICE(S) PROVIDED: UABDLIM - Abdominal Limited Survey Single ? [id number] Organ or Quadrant - [id number] INDICATIONS: Small hernia containing a possible varix. [...] 08/27/2022 09:40 am) PATIENT INFO: ID #: [id number] : 60 (62 yrs)(F) Name: KALLIE SMART Visit Date: 08/27/2022 08:55 am PERFORMED BY: Attending: Primo Guthrie MD Resident: Matthew Mares MD Performed By: Erik aLrsen RDMS Referred By: LASHAE KENYON Location: [place] SERVICE(S) PROVIDED: UABDLIM - Abdominal Limited Survey Single 96615 Organ or Quadrant - [id number] INDICATIONS: Small hernia containing a possible varix. [...] AM Electronically signed by: Primo Guthrie MD, [facility] ([phone]), at 08/27/2022 9:33 AM Thank you for letting us participate in the care of this patient. If you are a health care provider and have any questions regarding this report, please contact the number above. For patients who have questions, please contact the health congregational care pastor that requested your imaging first. Primo Guthrie, Staff Physician Electronically Signed Final Report 08/27/2022 09:40 am Lashae Kenyon MD IMG US GEN ORDERABLE S * (ABNORMAL) Hemoglobin A1c (08/19/2022 2:59 PM EDT) Hemoglobin A1c 6.6(H) 4.3 - 5.6 % [facility] Comment: Reference Range: 4.3 [...] Mellitus, Diabetes Care 2013; 36: Suppl. 1, G57-50 Estimated Average Glucose 143 mg/dL [facility] Comment: eAG equivalents for [...] into estimated average glucose values. ??Diabetes Care 2008:31(8):1217-4066. Blood 08/19/2022 2:59 PM EDT 08/19/2022 3:11 PM EDT Narrative Resulting Agency Comment Spec In Lab Lashae Kenyon MD CHEMISTRY ORDERABLES [facility] [place] [id number] documented in this encounter Visit Diagnoses Diagnosis [...] gangrene documented in this encounter Care Teams Fiberglass Boat Parts Finisher Relationship Specialty Start Date End Date Grant Lindsey MD PCP - General Family Medicine 02/25/19 documented as of this encounter
--- OUTSIDE RECORDS SUMMARY | 2024-04-08 11:08 | XMS_ITS | Encounter Summary ---
Author Organization [facility] [place] [address] Care Team Providers Care School Laboratory Technician Name Role Phone Grant Lindsey MD Primary Care Provider [phone] Encounter Details Date Type Department Care Team (Late st Contact Info) Description 07/15/2023 Transcribe Orders eD Incoming Referrals [phone] Gilmar Pearson PA [address] [place], [place] [id number] Social History Tobacco Use Types Packs/Day Years [...] on filedocumented in this encounter Care Teams School Laboratory Technician Relationship Specialty Start Date End Date Grant iLndsey MD PCP - General Family Medicine 02/25/19 documented as of this encounter
--- OUTSIDE RECORDS SUMMARY | 2024-04-08 11:08 | XMS_ITS | Encounter Summary ---
[place] [address] Care Team Providers Care Credit And Collections Analyst Name Role Phone Grant Lindsey MD Primary Care Provider [phone] Encounter Details Date Type Department Care Team [...] on filedocumented in this encounter Care Teams Credit And Collections Analyst Relationship Specialty Start Date End Date Grant Lindsey MD PCP - General Family Medicine 02/25/19 documented as of this encounter
--- OUTSIDE RECORDS SUMMARY | 2024-04-08 11:09 | XMS_ITS | Encounter Summary ---
[place] [address] Care Team Providers Care Chicken Cleaner Name Role Phone Grant Lindsey MD Primary Care Provider [phone] Encounter Details Date Type Department Care Team (Late st Contact Info) Description 09/15/2019 Telephone Gastroenterology at [place], [place] [id number] Holley Hassan Social History Tobacco Use Types [...] on filedocumented in this encounter Care Teams Chicken Cleaner Relationship Specialty Start Date End Date Grant Lindsey MD PCP - General Family Medicine 02/25/19 documented as of this encounter
--- OUTSIDE RECORDS SUMMARY | 2024-04-08 11:09 | XMS_ITS | Encounter Summary ---
[place] [address] Care Team Providers Care Biotech Production Specialist Name Role Phone Mehul Valladares DO Primary Care Provider [phone] Encounter Details Date Type Department Care Team (Latest Contact Info) Description 09/11/2017 2:52 PM EDT - 09/11/2017 6:26 PM EDT Hospital En[place] [phone] Josh Guadarrama MD Discharge Disposition: Home Social History Tobacco Use [...] Contact Numbers Friday - Friday Pulmonary Clinic [phone] 8a-5p Same Day Endoscopy [phone]-8p Otherwise call [facility] and ask to speak to the Pulmonary Doctor credit controller [phone] Discharge instructions reviewed with patient who expresses [...] Guadarrama MD - 09/11/2017 6:26 PM EDT [facility] Operative Note Patient Name: Kallie Darling : [id number] MR#: [id number] Case Date: 09/11/2017 Surgeon: Surgeon(s) and Role: [...] Procedure Name Priority Date/Time Associated Diagnosis Comments NON-CHIEF ANALYTICS OFFICER FINAL REPORT Routine 09/11/2017 5:22 PM EDT CYTOPATHOLOGY NON-GYNECOLOGICAL Routine 09/11/2017 4:09 PM EDT BRONCH, W ENDOBRONCHIAL ULTRASOUND (EBUS) GUIDED SAMPLING, 3+ NODES (WRVU 4.96) 09/11/2017 3:50 PM EDT Lung mass ENDOBRONCHIAL ULTRASOUND (EBUS) Routine 09/11/2017 3:19 PM EDT POCT GLUCOSE Routine 09/11/2017 3:12 PM EDT POCT FINGERSTICK GLUCOSE Routine 09/11/2017 documented in this encounter Results * Non-Lock Corner Machine Operator Final Report (09/11/2017 5:22 PM EDT) Diagnosis Discussion [id number] ? Location: 4T; EA07; A The signing pathologist has (i) examined the relevant preparation(s) for the specimen(s) and (ii) rendered or confirmed the diagnosis(es). . ? Non-Lock Corner Machine Operator Final DIAGNOSIS See Discussion Electronically signed by: ??James Escalante MD Verified: ??09/16/2017 ?Cytopathologist Performed at: ??-[facility] Dept. of Pathology, [place], [place] DISCUSSION Paratracheal: right (EBUS-guided FNA) - Numerous parathyroid cells with oncocytic features are present. A history of primary hyperparathyroidism is noted in the electronic medical record. Recommend clinical correlation. Case and diagnosis have been discussed with Dr. James Guadarrama. Dr. Betty rBown has reviewed this case and concurs with [...] for completed interpretation. 09/16/2017 4:27 PM EDT [facility] Misc. FNA 09/11/2017 5:22 PM EDT 09/11/2017 5:22 PM EDT Josh Guadarrama MD PATHOLOGY/CYTOLOGY ORDERABLES Performing Organization Address [facility] [address]/[place] [address] * Cytopathology Non-Gynecological (09/11/2017 4:09 PM EDT) AP Specimen 09/11/2017 4:09 PM EDT 09/11/2017 4:09 PM EDT Narrative [facility] - 09/11/2017 4:09 PM EDT Specimen requisition ordered. ??Separate Pathology report to follow Josh Guadarrama MD PATHOLOGY/CYTOLOGY ORDERABLES Performing Organization Address [facility] [address]/[facility] [place] [address] * ENDOBRONCHIAL ULTRASOUND (EBUS) (09/11/2017 3:19 PM EDT) EBUS [facility] Bronchoscopy Patient Name: Kallie Darling ? Procedure Date: 09/11/2017 3:19 PM ? N: [id number] ? Age: 57 ? Procedure: ?Ebus Providers: [...] by the physician, the ?nurse and the svp digital ad sales. Mental ?Status Examination: normal. ASA ?Grade Assessment: [...] GENERAL SURGICAL OR DERABLES Performing Organization Address City/[facility] [address]/[facility] Co de Phone Number [facility] * POCT Glucose (09/11/2017 3:12 PM EDT) Glucose, POC 120 65 - 199 mg/dL [facility] Comment: Supplemental ranges: <140 mg/dL before meals <180 mg/dL all other times of the day Blood specimen (specimen) 09/11/2017 3:12 PM EDT 09/11/2017 3:12 PM EDT Josh Guadarrama MD POINT OF CARE TEST ORDERABLES Performing Organization Address City/[facility] [address]/ZIP Co de Phone Number [facility] [place] [address] * POCT Fingerstick Glucose (09/11/2017) Glucose, POC 120 60 - 199 mg/dl 09/11/2017 Josh Guadarrama MD POINT OF CARE TEST ORDERABLES documented in this encounter Visit Diagnoses Not on filedocumented in this encounter Care Teams Biotech Production Specialist Relationship Specialty Start Date End Date Mehul Valladares DO [address] [place] [address] PCP - General General Internal Medicine 09/04/17 documented as of this encounter
--- OUTSIDE RECORDS SUMMARY | 2024-04-08 11:09 | XMS_ITS | Encounter Summary ---
Author Organization [facility] Address [facility] [place] [address] Care Team Providers Care Chip Crusher Operator Name Role Phone Malu Sampson APRN Primary Care Provider [phone] Encounter Details Date Type Department Care Team (Latest Contact Info) Description 08/18/2017 12:05 AM EDT - 08/18/2017 12:09 AM EDT Hospital Encounter [facility] [place] [address] Doc Lancaster MD [facility] [place] [address] Discharge Disposition: Home Social History Tobacco Use [...] DX Ankle (08/18/2017 12:05 AM EDT) Narrative [facility] - 08/19/2017 9:14 AM EDT This exam is for storage only and is auto-finalizing. Doc Lancaster MD [facility] FILM LIBRARY ORD ERABLES Performing Organization Address City/State/[facility] Co de Phone Number [place], [place] documented in this encounter Visit Diagnoses Not on filedocumented in this encounter Care Teams Chip Crusher Operator Relationship Specialty Start Date End Date Malu Sampson APRN PCP - General Family Medicine 08/28/16 09/03/17 documented as of this encounter
--- OUTSIDE RECORDS SUMMARY | 2024-04-08 11:09 | XMS_ITS | Encounter Summary ---
[place] [address] Care Team Providers Care Management Liaison Name Role Phone Mehul Valladares DO Primary Care Provider [phone] Encounter Details Date Type Department Care Team (Latest Contact Info) Description 09/03/2018 10:05 PM EDT - 09/03/2018 11:59 PM EDT [place] [phone] Discharge Disposition: Home Social History Tobacco Use [...] Report (09/03/2018 12:00 PM EDT) Final Diagnosis [id number] ? Location: [facility] The signing pathologist has (i) examined the relevant preparation(s) for the specimen(s) and (ii) rendered or confirmed the diagnosis(es). . 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 Electronically signed by: ??Dasia STOCKTON, Cj Henson Verified: ??09/11/2018 ?Pathologist Performed at: ??-[facility] Dept. of Pathology, [place], [place] CLINICAL INFORMATION Specimen Submitted: A - Right third toe Provided clinical history/diagnosis: Chronic pain D/T remote fracture PIPJ. Referring Identifier: ??[id number] SPECIMEN PROCESSING A - Labeled/Fixative: Right third toe, formalin. Quantity/Size: ??Single, 3.5 x 1.8 x 1.5 cm Tissue Description: Recognizable phalanx resected across the MIP joint. Lesion: No lesions identified. Nail: 1.1 x 0.9 cm, unremarkable. Skin: Intact, amador-white. Bone: ??Intact, yellow florian with slight discoloration of the distal phalanx. Sections/Processin g: Blocks submitted for decalcification: A1. Tennis Professional sections in 1 cassettes as follows: ?A1: ??Longitudinal cross-section ??ejr 09/11/2018 10:34 AM EDT [facility] Extremity 09/03/2018 12:0 0 PM EDT 09/03/2018 12:00 PM EDT Narrative Resulting Agency Comment Spec In Lab / [facility] Cassandra Loco DPM PATHOLOGY/CYTOLOGY O RDERABLES [facility] [place] [address] documented in this encounter Visit Diagnoses Not on filedocumented in this encounter Care Teams Management Liaison Relationship Specialty Start Date End Date Mehul Valladares DO [address] [place] [address] PCP - General General Internal Medicine 09/04/17 documented as of this encounter
--- OUTSIDE RECORDS SUMMARY | 2024-04-08 11:09 | XMS_ITS | Encounter Summary ---
[place] [address] Care Team Providers Care Territory Supervisor Name Role Phone Mehul Valladares DO Primary Care Provider Encounter Details Date Type Department Care Team (Late st Contact Info) Description 10/09/2017 [place] [phone] Josh Guadarrama MD Social History Tobacco Use Types Packs/Day [...] I talked to her primary care and bi technical lead as well. Referral was made to endocrinology. On 10/05/17 it appears that she was in the ER trying to find the results of bronch and plan. I have tried multiple times to reach her, however have been unsuccessful. I also called her sister Cristel at [phone] without success. Will try again. documented in this encounter Plan of Treatment Not on file documented as of this encounter Visit Diagnoses Not on filedocumented in this encounter Care Teams Territory Supervisor Relationship Specialty Start Date End Date Mehul Valladares DO [address] [place] [address] PCP - General General Internal Medicine 09/04/17 documented as of this encounter
--- OUTSIDE RECORDS SUMMARY | 2024-04-08 11:09 | XMS_ITS | Encounter Summary ---
[place] [address] Care Team Providers Care Engine Test Cell Technician Name Role Phone Grant Lindsey MD Primary Care Provider [phone] Encounter Details Date Type Department Care Team (Late st Contact Info) Description 07/08/2019 [place] [phone] Naomi Vasquez, [facility] Social History Tobacco Use Types Packs/Day Years [...] and supplies during this challenging period. All [facility] hospitals are open, outpatient appointments, urgent and [...] on filedocumented in this encounter Care Teams Engine Test Cell Technician Relationship Specialty Start Date End Date Grant Lindsey MD PCP - General Family Medicine 02/25/19 documented as of this encounter
--- OUTSIDE RECORDS SUMMARY | 2024-04-08 11:09 | XMS_ITS | Encounter Summary ---
Author Organization [facility] [place] [address] Care Team Providers Care Farm Mechanic Name Role Phone Mehul Valladares DO Primary Care Provider [phone] Reason for Visit * Consultation (Routine) - Closed Specialty Diagnoses / Procedures Referred By Nicol sparks Referred To Contact Endocrinology Diagnoses Hyperparathyroidism Josh Guadarrama MD [facility] [place] [address] [address] [facility] Endocrinology [address] [place] [address] Referral ID Status Reason Start Date Expiration Date V isits Requested Visits Authorized [id number] Closed Consult, Test & Treat 09/17/2017 09/17/2018 1 1 Encounter Details Date Type Department Care Team (Late st Contact Info) Description 02/24/2018 9:00 AM EST Office [place] [address] Sam Lai DO [facility] [place] [address] Hyperparathyroidism Social History Tobacco Use [...] with any questions. Sam Lai DO, MS Shipfitterx ray physician Department of Medicine Section of Endocrinology [facility] cc: Mehul Valladares DO documented in this [...] DO CHEMISTRY ORDERABLES [facility] [place] [address] * (ABNORMAL) PTH (02/24/2018 9:59 AM EST) Parathyroid Hormone 71(H) 15 - 65 pg/mL [facility] Blood specimen (specimen) 02/24/2018 9:59 AM EST 02/24/2018 10:09 AM EST Narrative Resulting Agency Comment Spec In Lab Sam Lai DO CHEMISTRY ORDERABLES [facility] [place] [address] documented in this encounter Visit Diagnoses Diagnosis Hyperparathyroidism Hyperparathyroidism, unspecified documented in this encounter Care Teams Farm Mechanic Relationship Specialty Start Date End Date Mehul Valladares DO [address] [place] [address] PCP - General General Internal Medicine 09/04/17 documented as of this encounter
--- OUTSIDE RECORDS SUMMARY | 2024-04-08 11:09 | XMS_ITS | Encounter Summary ---
[facility] [place] [address] Care Team Providers Care Geodesist Name Role Phone Mehul Valladares DO Primary Care Provider [phone] Encounter Details Date Type Department Care Team (Late st Contact Info) Description 10/16/2017 10:40 AM EDT Clinical [place] [address] Social History Tobacco Use Types [...] on filedocumented in this encounter Care Teams Geodesist Relationship Specialty Start Date End Date Mehul Valladares DO [address] [place] [id number] PCP - General General Internal Medicine 09/04/17 documented as of this encounter
--- OUTSIDE RECORDS SUMMARY | 2024-04-08 11:09 | XMS_ITS | Encounter Summary ---
Author Organization [facility] [place] [address] Care Team Providers Care Master Electrician Name Role Phone Mehul Valladares DO Primary Care Provider [phone] Reason for Visit * Consultation (Routine) - Closed Specialty Diagnoses / Procedures Referred By Nicol sparks Referred To Contact General Surgery Diagnoses Parathroid tumor; ? if needs chest surgeon Mehul Valladares DO [address] [place] [address] [facility] [place] Gen Surgery [address] [place] [address] Referral ID Status Reason Start Date Expiration Date V isits Requested Visits Authorized [id number] Closed Consult, Test & Treat Connection Center 09/24/2017 09/24/2018 1 1 Encounter Details Date Type Department Care Team (Late st Contact Info) Description 10/16/2017 9:30 AM EDT Office [place] [address] Ana Dias MD [facility] [place] [address] Hyperparathyroidism, primary Social History Tobacco [...] KNEE ARTHROSCOPY 2001 left ? ? PRO [facility] EBUS GUIDED SAMPL 3/> NODE STATION/STRUX N/A 09/11/2017 BRONCH, W ENDOBRONCHIAL ULTRASOUND (EBUS) GUIDED SAMPLING, 3+ NODES (WRVU 5.21) performed by Josh Guadarrama MD at [facility] ENDOSCOPY ??? PRO COLONOSCOPY, BIOPSY 01/27/2014 COLONOSCOPY FLEXIBLE, WITH BX performed by Natividad Taveras MD at [facility] ENDOSCOPY ??? PRO COLONOSCOPY, DIAGNOSTIC 02/17/2012 COLONOSCOPY, DIAGNOSTIC performed by ENRICO RUGGIERO at [facility] ENDOSCOPY ??? PRO COLONOSCOPY, DIAGNOSTIC 2012 COLONOSCOPY, DIAGNOSTIC performed by Natividad Taveras MD at [facility] ENDOSCOPY ??? PRO NEEDLE BIOPSY LIVER 01/28/2012 ??? PRO UPPER GI ENDOSCOPY, BIOPSY N/A 10/21/2016 UPPER GASTROINTESTINAL ENDOSCOPY,WITH BIOPSY SINGLE OR MULTIPLE (WRVU 2.49) performed by Matthew Garcia MD at [facility] ENDOSCOPY ??? PRO UPPER GI ENDOSCOPY, DIAGNOSTIC N/A 10/21/2016 EGD, UPPER GI ENDOSCOPY performed by Matthew Garcia MD at [facility] END[facility] ??? UPPER GI ENDOSCOPY, EXAM 2012 UPPER GI ENDOSCOPY performed by Natividad Taveras MD at [facility] END[facility] Current Outpatient Prescriptions on File Prior [...] since her ex-hu sband went to a prison. Lives alone. Has three daughters, two granddaughters, [...] days pre-operatively, andshe will be admitted post-operatively. [facility] Patient Characteristics Body mass index is [...] decreased: No Ionized calcium: high PTH: high [id number] D: not examined Subjective Symptoms: yes Objective [...] hyperparathyroidism documented in this encounter Care Teams Master Electrician Relationship Specialty Start Date End Date Mehul Valladares DO [address] [place] [address] PCP - General General Internal Medicine 09/04/17 documented as of this encounter
--- OUTSIDE RECORDS SUMMARY | 2024-04-08 11:09 | XMS_ITS | Encounter Summary ---
Author Organization [facility] Address [facility] [place] [address] Care Team Providers Care Pastry Sous Chef Name Role Phone Mehul Valladares DO Primary Care Provider [phone] Reason for Visit * Reason Comments Referral * Consultation (Routine) - Closed Specialty Diagnoses / Procedures Referred By Nicol sparks Referred To Contact Pulmonology Diagnoses Lung mass lung mass, [place] medicaid Denied a PET scan. Bernadette Rivera III, MD GLENN A [address] [place] [id number] Josh Guadarrama MD [facility] [place] [address] Referral ID Status Reason Start Date Expiration Date V isits Requested Visits Authorized [id number] Closed Consult, Test & Treat 08/29/2017 08/29/2018 1 1 Encounter Details Date Type Department Care Team (Late st Contact Info) Description 09/04/2017 10:00 AM EDT Office [place] [address] Josh Guadarrama MD Mediastinal mass Social History Tobacco Use Types [...] from the original note were not included. [facility] Section of Pulmonary Medicine Outpatient Consultation Date of Encounter: 09/04/2017 Referring Provider: Bernadette Rivera Iii, Md Glenn A [address] [place] [address] PCP: Mehul Valladares DO Reason for Consult: [...] She was evaluated by Dr. Rivera/Pulmonary at [facility] and was referred for EBUS and biopsy [...] BX performed by Natividad Taveras MD at [facility] ??? PRO COLONOSCOPY, DIAGNOSTIC 02/17/2012 COLONOSCOPY, DIAGNOSTIC performed by ENRICO RUGGIERO at [facility] ??? PRO COLONOSCOPY, DIAGNOSTIC 2012 COLONOSCOPY, DIAGNOSTIC performed by Natividad Taveras MD at [facility] ??? PRO NEEDLE BIOPSY LIVER 01/28/2012 ??? PRO UPPER GI ENDOSCOPY, BIOPSY N/A 10/21/2016 UPPER GASTROINTESTINAL ENDOSCOPY,WITH BIOPSY SINGLE OR MULTIPLE (WRVU 2.49) performed by Matthew Garcia MD at [facility] ??? PRO UPPER GI ENDOSCOPY, DIAGNOSTIC N/A 10/21/2016 EGD, UPPER GI ENDOSCOPY performed by Matthew Garcia MD at [facility] ??? UPPER GI ENDOSCOPY, EXAM 2012 UPPER GI ENDOSCOPY performed by Natividad Taveras MD at [facility] Medications: Current Outpatient Prescriptions Medication Sig [...] MD Pulmonary and Critical Care Medicine Pager #[phone] documented in this encounter Plan of Treatment Not on file documented as of this encounter Visit Diagnoses Diagnosis Mediastinal mass Swelling, mass, or lump in chest documented in this encounter Care Teams Pastry Sous Chef Relationship Specialty Start Date End Date Mehul Valladares DO [address] [place] [address] PCP - General General Internal Medicine 09/04/17 documented as of this encounter
--- OUTSIDE RECORDS SUMMARY | 2024-04-08 11:09 | XMS_ITS | Encounter Summary ---
[place] [address] Care Team Providers Care Fisher Net Name Role Phone Mehul Valladares DO Primary Care Provider [phone] Encounter Details Date Type Department Care Team (Late st Contact Info) Description 11/13/2017 Telephone [place] [address] Tasha Davalos, RN Social History Tobacco Use [...] Note ?? Patient Name: Kallie Darling : [id number] MR#: [id number] ?? Case Date: 11/10/2017 ?? Surgeon: Surgeon(s) [...] UP: Lost connection due to poor phone reception manager If your symptoms do not improve, or they worsen, report to your local emergency department. CALLER AGREES: No PCP: Mehul Valladares DO documented in this encounter Plan of Treatment Not on file documented as of this encounter Visit Diagnoses Not on filedocumented in this encounter Care Teams Fisher Net Relationship Specialty Start Date End Date Mehul Valladares DO [address] [place] [address] PCP - General General Internal Medicine 09/04/17 documented as of this encounter
--- OUTSIDE RECORDS SUMMARY | 2024-04-08 11:09 | XMS_ITS | Encounter Summary ---
Author Organization [facility] [place] [address] Care Team Providers Care Metal Numerical Tool Programmer Name Role Phone Mehul Valladares DO Primary Care Provider [phone] Encounter Details Date Type Department Care Team (Late st Contact Info) Description 11/14/2017 Telephone [place] [phone] Ana Dias MD [facility] [place] [address] Social History Tobacco Use Types Packs/Day Years [...] to call me or contact me via Ariel Wayo that we can wean her off the calcium supplementation. documented in this encounter Plan of Treatment Not on file documented as of this encounter Visit Diagnoses Not on filedocumented in this encounter Care Teams Metal Numerical Tool Programmer Relationship Specialty Start Date End Date Mehul Valladares DO [address] [place] [address] PCP - General General Internal Medicine 09/04/17 documented as of this encounter
--- OUTSIDE RECORDS SUMMARY | 2024-04-08 11:09 | XMS_ITS | Encounter Summary ---
[place] [address] Care Team Providers Care Oxyacetylene Welder Name Role Phone Grant Lindsey MD Primary Care Provider [phone] Reason for Visit * Reason Onset Date Comments Appointment 03/30/2019 Encounter Details Date Type Department Care Team (Late st Contact Info) Description 03/30/2019 Telephone [place] [address] Lupe Senior Appointment Social History [...] patient (if other than patient): Hilary at [facility] Office Patient Best time to reach caller: YOSELIN Message or Reason for Call: [facility] office would like their patient contacted yoselin, new referral sent on 02/24/19. Appt Needed and Reason: Yes Provider: MICHELLE documented in this encounter Plan of Treatment Not on file documented as of this encounter Visit Diagnoses Not on filedocumented in this encounter Care Teams Oxyacetylene Welder Relationship Specialty Start Date End Date Grant Lindsey MD PCP - General Family Medicine 02/25/19 documented as of this encounter
--- OUTSIDE RECORDS SUMMARY | 2024-04-08 11:09 | XMS_ITS | Encounter Summary ---
Author [facility] [place] [address] Care Team Providers Care Headwaitress Name Role Phone Renettabridger Mehul Lugo DO Primary Care Provider [phone] Encounter Details Date Type Department Care Team (Late st Contact Info) Description 09/11/2017 3:48 PM EDT Anesthesia [place] [address] Murtaza Gutierrez MD [facility] [place] [address] Branden Hagen CRNA [facility] [place] [address] Anesthesia Record Procedure Summary Procedure Name Responsible [...] Gutierrez MD - 09/11/2017 6:29 PM EDT [facility] Department of Anesthesiology Post-procedure Note Patient: Kallie Darling Procedure Summary Date Anesthesia Start Anesthesia Stop Room / Location 09/11/[address] [facility] 1 / [facility] Procedure Diagnosis Surgeon Responsible Provider BRONCH, W ENDOBRONCHIAL ULTRASOUND (EBUS) GUIDED SAMPLING, 3+ NODES (WRVU 5.21) (N/A Chest) Lung mass (LUNG MASS,EBUS, GA) Josh Guadarrama MD Nguyen, Tung T, MD All Anesthesia Providers: Anesthesiologist: Murtaza Gutierrez MD SPEECH AND LANGUAGE CLINICIAN: Tran Blandon CRNA Most Recent Vitals: 09/11/17 1718 BP: (!) 150/91 Pulse: 75 Resp: 16 SpO2: 96% Pain 0 (09/11/17 1730) Patient Location: PACU/[facility] Level of Consciousness: Awake and [...] performed by Natividad Taveras MD at [facility] ??? PRO COLONOSCOPY, DIAGNOSTIC 02/17/2012 COLONOSCOPY, DIAGNOSTIC performed by ENRICO RUGGIERO at [facility] ??? PRO COLONOSCOPY, DIAGNOSTIC 2012 COLONOSCOPY, DIAGNOSTIC performed by Natividad Taveras MD at [facility] ??? PRO NEEDLE BIOPSY LIVER 01/28/2012 ??? PRO UPPER GI ENDOSCOPY, BIOPSY N/A 10/21/2016 UPPER GASTROINTESTINAL ENDOSCOPY,WITH BIOPSY SINGLE OR MULTIPLE (WRVU 2.49) performed by Matthew Garcia MD at [facility] ??? PRO UPPER GI ENDOSCOPY, DIAGNOSTIC N/A 10/21/2016 EGD, UPPER GI ENDOSCOPY performed by Matthew Garcia MD at [facility] ??? UPPER GI ENDOSCOPY, EXAM 2012 UPPER GI ENDOSCOPY performed by Natividad Taveras MD at [facility] Social History Substance Use Topics ??? [...] mg documented in this encounter Care Teams Headwaitress Relationship Specialty Start Date End Date Mehul Valladares DO [address] [place] [address] PCP - General General Internal Medicine 09/04/17 documented as of this encounter
--- OUTSIDE RECORDS SUMMARY | 2024-04-08 11:09 | XMS_ITS | Encounter Summary ---
Author Organization [facility] [place] [address] Care Team Providers Care Life Guard Name Role Phone Mehul Valladares DO Primary Care Provider [phone] Encounter Details Date Type Department Care Team (Late st Contact Info) Description 12/25/2017 10:30 AM EDT Office [place] [address] Ana Dias MD [facility] [place] [place] [address] S/P parathyroidectomy Social History Tobacco Use Types [...] status documented in this encounter Care Teams Life Guard Relationship Specialty Start Date End Date Mehul Valladares DO [address] [place] [address] PCP - General General Internal Medicine 09/04/17 documented as of this encounter
--- OUTSIDE RECORDS SUMMARY | 2024-04-08 11:09 | XMS_ITS | Encounter Summary ---
Author Organization [facility] Address [facility] [place] [address] Care Team Providers Care Travel Accommodations Rater Name Role Phone Malu Sampson APRN Primary Care Provider [phone] Encounter Details Date Type Department Care Team (Latest Contact Info) Description 08/18/2017 12:10 AM EDT - 08/18/2017 11:59 PM EDT Hospital Encounter Radiology Library at [facility] [place] [phone] Doc [place] MD [facility] [place] [address] Discharge Disposition: Home Social History Tobacco Use [...] DX Foot (08/18/2017 12:10 AM EDT) Narrative [facility] - 08/19/2017 9:15 AM EDT This exam is for storage only and is auto-finalizing. Doc [place] MD [facility] FILM LIBRARY ORD ERABLES Performing Organization Address City/State/[facility] Co de Phone Number [place], [place] documented in this encounter Visit Diagnoses Not on filedocumented in this encounter Care Teams Travel Accommodations Rater Relationship Specialty Start Date End Date Malu Sampson APRN PCP - General Family Medicine 08/28/16 09/03/17 documented as of this encounter
--- OUTSIDE RECORDS SUMMARY | 2024-04-08 11:09 | XMS_ITS | Encounter Summary ---
Author Organization [facility] [place] [address] Care Team Providers Care Clinical Review Nurse Name Role Phone Mehul Valladares DO Primary Care Provider [phone] Encounter Details Date Type Department Care Team (Late st Contact Info) Description 10/24/2017 Telephone [place] [phone] Casandra Liu Social History Tobacco Use Types [...] make sure she is doing well. Thanks MARKSU Paniagua nov 20 8 am if still avail documented in this encounter Plan of Treatment Not on file documented as of this encounter Visit Diagnoses Not on filedocumented in this encounter Care Teams Clinical Review Nurse Relationship Specialty Start Date End Date Mehul Valladares DO [address] [place] [address] PCP - General General Internal Medicine 09/04/17 documented as of this encounter
--- OUTSIDE RECORDS SUMMARY | 2024-04-08 11:09 | XMS_ITS | Encounter Summary ---
[place] [address] Care Team Providers Care Research Software Engineer Name Role Phone Mehul Valladares DO Primary Care Provider Encounter Details Date Type Department Care Team (Late st Contact Info) Description 09/11/2017 3:00 PM EDT - 09/11/2017 4:30 PM EDT [place] [phone] Josh Guadarrama MD BRONCH, W ENDOBRONCHIAL ULTRASOUND (EBUS) GUIDED SAMPLING, [...] Contact Numbers Friday - Friday Pulmonary Clinic [phone]-5p Same Day Endoscopy [phone]-[phone] Otherwise call [facility] and ask to speak to the Pulmonary Doctor interventional technologist [phone] Discharge instructions reviewed with patient who expresses [...] Guadarrama MD - 09/11/2017 6:26 PM EDT [facility] Operative Note Patient Name: Kallie Darling : [id number] MR#: [id number] Case Date: 09/11/2017 Surgeon: Surgeon(s) and Role: [...] Procedure Name Priority Date/Time Associated Diagnosis Comments NON-MARKETING TECHNOLOGIST FINAL REPORT Routine 09/11/2017 5:22 PM EDT CYTOPATHOLOGY NON-GYNECOLOGICAL Routine 09/11/2017 4:09 PM EDT BRONCH, W ENDOBRONCHIAL ULTRASOUND (EBUS) GUIDED SAMPLING, 3+ NODES (WRVU 4.96) 09/11/2017 3:50 PM EDT Lung mass ENDOBRONCHIAL ULTRASOUND (EBUS) Routine 09/11/2017 3:19 PM EDT POCT GLUCOSE Routine 09/11/2017 3:12 PM EDT POCT FINGERSTICK GLUCOSE Routine 09/11/2017 documented in this encounter Results * Non-Mica Patcher Final Report (09/11/2017 5:22 PM EDT) Diagnosis Discussion [id number] ? Location: 4T; EA07; A The signing pathologist has (i) examined the relevant preparation(s) for the specimen(s) and (ii) rendered or confirmed the diagnosis(es). . ? Non-Mica Patcher Final DIAGNOSIS See Discussion Electronically signed by: ??Boris STOCKTON, James Keller Verified: ??09/16/2017 ?Cytopathologist Performed at: ??-[facility] Dept. of Pathology, [place], [place] DISCUSSION Paratracheal: right (EBUS-guided FNA) - [...] Guadarrama MD PATHOLOGY/CYTOLOGY ORDERABLES Performing Organization Address [facility]/[place]IP [place] [address] * Cytopathology Non-Gynecological (09/11/2017 4:09 PM EDT) AP Specimen 09/11/2017 4:09 PM EDT 09/11/2017 4:09 PM EDT Narrative [facility] - 09/11/2017 4:09 PM EDT Specimen requisition ordered. ??Separate Pathology report to follow Josh Guadarrama MD PATHOLOGY/CYTOLOGY ORDERABLES Performing Organization Address City/[facility] Co de Phone Number [place] [phone] * ENDOBRONCHIAL ULTRASOUND (EBUS) (09/11/2017 3:19 PM EDT) [facility] Bronchoscopy Patient Name: Kallie Darling ? Procedure [...] by the physician, the ?nurse and the elementary assistant principal. Mental ?Status Examination: normal. ASA ?Grade Assessment: [...] GENERAL SURGICAL OR DERABLES Performing Organization Address [facility] Co de Phone Number [employer] * POCT Glucose (09/11/2017 3:12 PM EDT) Glucose, POC 120 65 - 199 mg/dL [facility] Comment: Supplemental ranges: <140 mg/dL before meals <180 mg/dL all other times of the day Blood specimen (specimen) 09/11/2017 3:12 PM EDT 09/11/2017 3:12 PM EDT Josh Guadarrama MD POINT OF CARE TEST ORDERABLES Performing Organization Address City/[facility] Co de Phone Number [facility] [place] [address] * POCT Fingerstick Glucose (09/11/2017) Glucose, POC 120 60 - 199 mg/dl 09/11/2017 Josh Guadarrama MD POINT OF CARE TEST ORDERABLES documented in this encounter Visit Diagnoses Diagnosis Lung mass Swelling, mass, or lump in chest documented in this encounter Care Teams Research Software Engineer Relationship Specialty Start Date End Date Mehul Valladares DO [address] [place] [address] PCP - General General Internal Medicine 09/04/17 documented as of this encounter
--- OUTSIDE RECORDS SUMMARY | 2024-04-08 11:09 | XMS_ITS | Encounter Summary ---
Author Organization [facility] [place] [address] Care Team Providers Care Hearing Stenographer Name Role Phone Grant Lindsey MD Primary Care Provider [phone] Encounter Details Date Type Department Care Team (Late st Contact Info) Description 02/07/2020 Orders [place] [address] Saniya Thomson APRN [facility] [place] [address] Cirrhosis of liver without ascites, unspecified hepatic [...] below. Electronically signed by: Primo Guthrie MD, [facility] ([phone]), at 04/19/2020 9:40 AM ?Primo Guthrie, Staff Physician Electronically Signed Final Report ?? 04/19/2020 09:46 am Narrative 04/19/2020 9:47 AM EST Abdominal ? (Signed Final 04/19/2020 09:46 am) PATIENT INFO: ID #: ? [id number] ?: ??60 (59 yrs)(F) Name: ? KALLIE SMART ? Visit Date: 04/19/2020 09:15 am PERFORMED BY: Performed By: ? Yecenia Cook RDMS Attending: ?Primo Guthrie MD Referred By: ?SANIYA THOMSON Location: ? [place] SERVICE(S) PROVIDED: ??[facility] - Hepatology Protocol - Abdominal ? 21065 ??Limited Survey Single Organ or Quadrant - ??[id number] INDICATIONS: ??Cirrhosis; HCC surveillance; assess for ??splenomegaly. [...] 04/19/2020 09:46 am) PATIENT INFO: ID #: [id number] : 60 (59 yrs)(F) Name: KALLIE Villalobos ON CALL Visit Date: 04/19/2020 09:15 am PERFORMED BY: Performed By: Yecenia Cook RDMS Attending: Primo Guthrie MD Referred By: SANIYA THOMSON Location: [place] SERV[facility]S) [facility] - Hep[facility] Protocol - Abdominal 89923 Limited Survey Single Organ or Quadrant - [id number] INDICATIONS: Cirrhosis; HCC surveillance; assess for splenomegaly. [...] 04/19/2020 09:46 am Saniya Thomson APRN IMG US GEN ORDERAB LES documented in this encounter Visit Diagnoses Diagnosis Cirrhosis of liver without ascites, unspecified hepatic cirrhosis type Cirrhosis of liver without ascites, unspecified hepatic cirrhosis type documented in this encounter Care Teams Hearing Stenographer Relationship Specialty Start Date End Date Grant Lindsey MD PCP - General Family Medicine 02/25/19 documented as of this encounter
--- OUTSIDE RECORDS SUMMARY | 2024-04-08 11:09 | XMS_ITS | Encounter Summary ---
Author Organization [place] [address] Care Team Providers Care Pest Control Worker Name Role Phone Mehul Valladares DO Primary Care Provider [phone] Encounter Details Date Type Department Care Team (Late st Contact Info) Description 09/08/2018 External [place] [phone] Provider, Scanning Social History Tobacco Use Types [...] on filedocumented in this encounter Care Teams Pest Control Worker Relationship Specialty Start Date End Date Mehul Valladares DO [address] [place] [address] PCP - General General Internal Medicine 09/04/17 documented as of this encounter
--- OUTSIDE RECORDS SUMMARY | 2024-04-08 11:09 | XMS_ITS | Encounter Summary ---
Author Organization [facility] [place] [address] Care Team Providers Care Cell Cleaner Name Role Phone Mehul Valladares DO Primary Care Provider [phone] Encounter Details Date Type Department Care Team (Latest Contact Info) Description 11/10/2017 10:27 AM EDT - 11/11/2017 10:00 AM EDT Hospital [place] [phone] Neptali Palmer MD [facility] [address] S/P parathyroidectomy; Primary hyperparathyroidism (PTH 165, Ca [...] 8:00 AM Sam Lai DO [facility] 11/13/2017 11:00 AM Bruna Laguerre MD [facility] Outpatient Services/Studies: Calcium Standing Status: Future [...] Take NSAIDS or Tylenol every 6 hours [id number] for the first 3-5 days following surgery [...] or grocery store, as it is available [id number]-wtfpwas and does not require a prescription. The [...] please call the General Surgery nurse at [phone], since this may mean that you need [...] will be mailed to you Please call [phone] to confirm the date and time of your appointment if you do not hear from us in the next 2 weeks Future Appointments Date Time Provider Department Center 11/11/2017 8:00 AM Sam Lai DO [facility] 11/13/2017 11:00 AM Bruna Laguerre MD [facility] Call Doctor for: Call if you have [...] days after surgery. Phone number for questions: [phone] before 5 PM on weekdays [phone] after 5 PM and on weekends/holidays. Ask for the general surgery resident personal trainer. General Instructions None Follow-up Recommendations for Providers: Routine post-operative care. Recheck calcium in 6 weeks and 6 months. CC: Mehul Valladares DO Signed: Phil Dalton MD Surgical Oncology Service Service pager [phone] 11/11/2017 documented in this encounter Discharge Instructions [...] Take NSAIDS or Tylenol every 6 hours mcbhgs-sdc-mblze for the first 3-5 days following surgery [...] or grocery store, as it is available sfyf-chs-ikgpiet and does not require a prescription. The [...] please call the General Surgery nurse at [phone], since this may mean that you need [...] will be mailed to you Please call [phone] to confirm the date and time of your appointment if you do not hear from us in the next 2 weeks Future Appointments Date Time Provider Department Center 11/11/2017 8:00 AM Sam Lai DO [facility] 11/13/2017 11:00 AM Bruna Laguerre MD [facility]b [facility] Call Doctor for: Call if you [...] days after surgery. Phone number for questions: [phone] before 5 PM on weekdays [phone] after 5 PM and on weekends/holidays. Ask for the general surgery resident personal trainer. documented in this encounter Medications at Time [...] (HARDEN/MONA) with portal hypertension who presents to [facility] for parathyroidectomy. S: Kallie Darling endorses no [...] DM, SOCORRO, and cirrohsis who presents to [facility] for a parathyroidectomy. She had a sleep study (per patient) and was given a pacifier thing that would fall out of her mouth during sleep. She agreed to try a CPAP mask tonight. She was placed onV-set Auto with a Max of 15 and a Min of 5. * Op Note - Neptali Palmer MD - 11/10/2017 6:49 PM EDT [facility] Operative Note Patient Name: Kallie Darling : [id number] MR#: [id number] Case Date: 11/10/2017 Surgeon: Surgeon(s) and Role: [...] anesthesia was completed by anesthesiology with the [employer]tr[employer] recurrent laryngeal nerve monitoring system. An attempt [...] Operative Note Patient Name: Kallie Darling : [id number] MR#: [id number] Case Date: 11/10/2017 Surgeon: Surgeon(s) and Role: [...] Routine 11/10/2017 7:59 PM EDT INTRAOPERATIVE PTH ([facility]) STAT 11/10/2017 6:41 PM EDT INTRAOPERATIVE PTH ([facility]) STAT 11/10/2017 6:34 PM EDT INTRAOPERATIVE PTH ([facility]) STAT 11/10/2017 6:29 PM EDT SPECIMEN TO PATHOLOGY Routine 11/10/2017 6:20 PM EDT SURGICAL PATHOLOGY REPORT Routine 2017 6:18 PM EDT INTRAOPERATIVE PTH ([facility]) STAT 11/10/2017 6:10 PM EDT INTRAOPERATIVE PTH ([facility]) STAT 11/10/2017 5:17 PM EDT FACIAL NERVE [...] Glucose, POC 189 65 - 199 mg/dL [facility] Comment: Supplemental ranges: <140 mg/dL before meals <180 mg/dL all other times of the day Blood specimen (specimen) 11/11/2017 8:01 AM EDT 11/11/2017 8:01 AM EDT Neptali Palmer MD POINT OF CARE TAYLOR T ORDERABLES [facility] [place] [address] * Calcium (11/11/2017 3:52 AM EDT) Calcium 10.3 8.5 - 10.5 mg/dL [facility] Blood specimen (specimen) 11/11/2017 3:52 AM EDT 11/11/2017 4:04 AM EDT Narrative Resulting Agency Comment Spec In Lab Neptali Palmer MD CHEMISTRY ORDERAB LES [facility] [place] [address] * POCT Glucose (11/10/2017 10:13 PM EDT) Glucose, POC 166 65 - 199 mg/dL [facility] Comment: Supplemental ranges: <140 mg/dL before meals <180 mg/dL all other times of the day Blood specimen (specimen) 11/10/2017 10:13 PM EDT 11/10/2017 10:13 PM EDT Neptali Palmer MD POINT OF CARE TAYLOR T ORDERABLES Performing Organization Address [facility] Co de Phone Number [facility] [place] [address] * POCT Glucose (11/10/2017 7:59 PM EDT) Glucose, POC 140 65 - 199 mg/dL [facility] Comment: Supplemental ranges: <140 mg/dL before meals <180 mg/dL all other times of the day Blood specimen (specimen) 11/10/2017 7:59 PM EDT 11/10/2017 7:59 PM EDT Neptali Palmer MD POINT OF CARE TAYLOR T ORDERABLES Performing Organization Address [facility] Co de Phone Number [facility] [place] [address] * Intraoperative PTH (Leb/CGP) (11/10/2017 6:41 PM EDT) PTH, Intraoperative 28 9 - 77 pg/mL [facility] Comment: peripheral Called by: PORFIRIO, Read back by: stefan salinas_, Date/Time:11/10/17 19:20. A 50 % decrease in venous iPTH levels at 10 min post adenoma excision is expected if all the hypersecreting parathyroid tissue has been removed (Alexey GL et al. Surgery 1993:114; [id number]) Blood specimen (specimen) 11/10/2017 6:41 PM EDT 11/10/2017 6:51 PM EDT Narrative Resulting Agency Comment Spec In Lab Neptali Palmer MD CHEMISTRY ORDERAB LES Performing Organization Address [facility] Co de Phone Number [facility] [place] [address] * Intraoperative PTH (Leb/CGP) (11/10/2017 6:34 PM EDT) PTH, Intraoperative 29 9 - 77 pg/mL [facility] Comment: 15 minute post excision Called by: PORFIRIO, Read back by: stefan salinas_, Date/Time:11/10/17 19:06. A 50 % decrease in venous iPTH levels at 10 min post adenoma excision is expected if all the hypersecreting parathyroid tissue has been removed (Alexey GL et al. Surgery 1993:114; [id number]) Blood specimen (specimen) 11/10/2017 6:34 PM EDT 11/10/2017 6:41 PM EDT Narrative Resulting Agency Comment Spec In Lab Neptali Palmer MD CHEMISTRY ORDERAB LES Performing Organization Address [facility] [place] [address] * Intraoperative PTH (Leb/CGP) (11/10/2017 6:29 PM EDT) PTH, Intraoperative 36 9 - 77 pg/mL [facility] Comment: 10 minute post excision Called by: PORFIRIO, Read back by: stefan salinas_, Date/Time:11/10/17 19:00. A 50 % decrease in venous iPTH levels at 10 min post adenoma excision is expected if all the hypersecreting parathyroid tissue has been removed (Alexey GL et al. Surgery 1993:114; [id number]) Blood specimen (specimen) 11/10/2017 6:29 PM EDT 11/10/2017 6:34 PM EDT Narrative Resulting Agency Comment Spec In Lab Neptali Palmer MD CHEMISTRY ORDERAB LES Performing Organization Address [facility] [place] [address] * Specimen to Pathology (11/10/2017 6:20 PM EDT) AP Specimen 11/10/2017 6:20 PM EDT 11/10/2017 6:29 PM EDT Narrative [facility] - 11/10/2017 6:29 PM EDT Specimen requisition ordered. ??Separate Pathology report to follow Resulting Agency Comment Spec In Lab Neptali Palmer MD PATHOLOGY/CYTOLOG Y ORDERABLES Performing Organization Address [facility] Co de Phone Number [facility] [place] [address] * Surgical Pathology Report (11/10/2017 6:18 PM EDT) Final Diagnosis [id number] ? Location: PACU; [facility]; The signing pathologist has (i) examined the relevant preparation(s) for the specimen(s) and (ii) rendered or confirmed the diagnosis(es). . ?Surgical Pathology DIAGNOSIS A - Right upper parathyroid Enlarged parathyroid gland, ??compatible with adenoma. Electronically signed by: ??Noemy Gonzalez DO Verified: ??11/13/2017 ?Pathologist Performed at: ??-[facility] Dept. of Pathology, [place], [place] CLINICAL INFORMATION Specimen Submitted: A - Right upper parathyroid Clinical History and Diagnosis: HPT SPECIMEN PROCESSING A - ??Labeled/Fixat stefania: Right upper parathyroid, fresh. Quantity/Size: Single, 4.8 x 3.0 x 1.7 cm, 8.44 g. Tissue Description: Well-circumscri bed nodule of firm brown tissue with relatively homogenous cut surfaces. Sections/Proces sing: Inked and serially sectioned. (R1) ??rolando 11/13/2017 9:24 AM EDT [facility] PARATHYROID STRUCTURE / Unknown 11/10/2017 6:18 PM EDT 11/10/2017 6:18 PM EDT Neptali Palmer MD PATHOLOGY/CYTOLOG Y ORDERABLES Performing Organization Address City/[facility] Co de Phone Number [facility] [place] [address] * (ABNORMAL) Intraoperative PTH (Leb/CGP) (11/10/2017 6:10 PM EDT) PTH, Intraoperative 92(H) 9 - 77 pg/mL [facility] Comment: prte-excision Called by: PORFIRIO, Read back by: _stefan salinas, Date/Time:11/10/17 18:43. A 50 % decrease in venous iPTH levels at 10 min post adenoma excision is expected if all the hypersecreting parathyroid tissue has been removed (Alexey GL et al. Surgery 1993:114; [id number]) Blood specimen (specimen) 11/10/2017 6:10 PM EDT 11/10/2017 6:15 PM EDT Narrative Resulting Agency Comment Spec In Lab Neptali Palmer MD CHEMISTRY ORDERAB LES Performing Organization Address [facility] [place] [facility] Co de Phone Number [facility] [place] [address] * (ABNORMAL) Intraoperative PTH (Leb/CGP) (11/10/2017 5:17 PM EDT) PTH, Intraoperative 216(H) 9 - 77 pg/mL [facility] Comment: baseline Called by: PORFIRIO, Read back by: Stefan Salinas_, Date/Time:11/10/17 17:50. A 50 % decrease in venous iPTH levels at 10 min post adenoma excision is expected if all the hypersecreting parathyroid tissue has been removed (Alexey SCHULTZ et al. Surgery 1993:114; [id number]) Blood specimen (specimen) 11/10/2017 5:17 PM EDT 11/10/2017 5:21 PM EDT Narrative Resulting Agency Comment Spec In Lab Neptali Palmer MD CHEMISTRY ORDERAB LES Performing Organization Address City/[facility]/ZIP Co de Phone Number [facility] [place] [address] * POCT Glucose (11/10/2017 1:53 PM EDT) Glucose, POC 104 65 - 199 mg/dL [facility] Comment: Supplemental ranges: <140 mg/dL before meals <180 mg/dL all other times of the day Blood specimen (specimen) 11/10/2017 1:53 PM EDT 11/10/2017 1:53 PM EDT Neptali Palmer MD POINT OF CARE TAYLOR T ORDERABLES [facility] [address] [place] [address] documented in this encounter Visit Diagnoses Diagnosis [...] Provider: Gilberto Nash RN - Reason: Patient Unable)2228 (Given - Provider: Gilberto Nash RN) 0000 (Canceled Entry - Provider: Gilberto Nash RN - Reason: Contraindicated)0507 (Given - Provider: Gilberto Nash RN) budesonide-formoterol (SYMBICORT) 80-4.5 mcg/actuation inhaler 2 Inhalation 2 .Inhalation , Inhalation, EVERY 12 HOURS SCHEDULED (2 times per day), First dose on Fri11/10/17 at 2300, Until Discontinued 2227 (Given - Provider: Gilberto Nash RN) 0822 (Given - Provider: Vee White, BRY) calcium citrate (CALCITRATE) tablet 950 mg(Linked Group 1) 950 mg, Oral, 3 TIMES DAILY, First dose on Fri11/10/17 at 2230, Until Discontinued, Routine 225 (Given - Provider: Gilberto Nash RN) 0822 (Given - Provider: Vee White, BRY) carvedilol (COREG) tablet 6.25 mg 6.25 mg, [...] Minutes, Indication for (Active or Suspected): Prophylaxis 1719 (Given - Provider: Marie Nieto CRNA) cholecalciferol (Vitamin D3) tablet 800 Units(Linked Group 1) 800 Units, Oral, 3 TIMES DAILY, First dose on Fri11/10/17 at 2230, Until Discontinued, Routine 2250 (Given - Provider: Gilberto Nash RN) 0823 (Given - Provider: Vee White RN) citalopram (CeleXA) tablet 40 mg 40 mg, Oral, DAILY, First dose on Fri11/11/17 at 0900, Until Discontinued, Routine 0823 (Given - Provid er: Vee White RN) famotidine (PEPCID) tablet 20 mg 20 mg, Oral, 2 TIMES DAILY, First dose on Fri11/10/17 at 2115, Until Discontinued, Routine 2230 (Given - Provider: Gilberto Nash RN) 0821 (Given - Provider: Vee White RN) gabapentin (NEURONTIN) capsule 800 mg 800 mg, Oral, 3 TIMES DAILY, First dose on Fri11/10/17 at 2115, Until Discontinued, Routine 2229 (Given - Provider: Gilberto Nash RN) 0821 [...] unless specifically told to do so., Routine 2227 (Given - Provider: Gilberto Nash RN) 0821 (Given - Provider: Vee White, BRY) levothyroxine (SYNTHROID) tablet 50 mcg 50 mcg, Oral, EVERY MORNING, First dose on Fri11/11/17 at 0600, Until Discontinued, Routine 0507 (Given - Provid er: Gilberto Nash RN) pantoprazole (PROTONIX) tablet 40 mg 40 mg, Oral, DAILY, First dose on Fri11/11/17 at 0900, Until Discontinued, DO NOT CRUSH OR OPEN, Routine 0822 (Given - Provid er: Vee White, BRY) rOPINIRole (REQUIP) tablet 0.25 mg 0.25 mg, Oral, 2 TIMES DAILY, First dose on Fri11/10/17 at 2115, Until Discontinued, Routine 211 (Not Given - Provider: Gilberto Nash RN - Reason: Medication not available) sodium chloride 0.9 % flush 5 mL 5 mL, Intravenous, 2 TIMES DAILY, First dose on Fri11/10/17 at 2115, Until Discontinued, Recovery (Recovery-Hospital Unit), Routine 2230 (Given - Provider: Gilberto Nash RN) 0824 (Given - Provider: Vee White, [...] PRN, 1 dose, Starting on Fri11/10/17 at 2057, Until Fri11/11/17 at 1245, for discomfort with PIV insertion, Recovery (Recovery-Hospital Unit), Routine ondansetron (ZOFRAN) injection 4 mg(Linked Group 5) 4 mg, Intravenous, EVERY 8 HOURS PRN, Starting on Fri11/10/17 at 2057, Until Fri11/11/17 at 1245, Nausea, May repeat times one in 30 minutes if ineffective. If multiple antiemetics are ordered, use ondanstron first, Recovery (Recovery-Hospital Unit) ondansetron (ZOFRAN) tablet 4 mg(Linked Group 5) 4 mg, Oral, EVERY 8 HOURS PRN, Starting on Fri11/10/17 at 2057, Until Fri11/11/17 at 1245, Nausea, Vomiting, If [...] Unit) documented in this encounter Care Teams Cell Cleaner Relationship Specialty Start Date End Date Mehul Valladares DO [address] [place] [address] PCP - General General Internal Medicine 09/04/17 documented as of this encounter
--- OUTSIDE RECORDS SUMMARY | 2024-04-08 11:09 | XMS_ITS | Encounter Summary ---
[place] [address] Care Team Providers Care Print Line Supervisor Name Role Phone Grant Lindsey MD Primary Care Provider [phone] Encounter Details Date Type Department Care Team (Late st Contact Info) Description 06/08/2019 Telephone [place] [phone] [facility] Vasquez, [facility] Social History Tobacco Use Types [...] - 06/08/2019 9:59 AM EST Kallie Darling [id number] Diagnosis/Indication: cirrhosis, varicey screening abd pain 1. [...] to patient: You must have a responsible democrat who will drive you to your procedure, stay [place] for the entire duration of your procedure, and drive you home from your procedure?yes Height: 5'5 Weight: 217 Age:58 y.o. documented in this encounter Plan of Treatment Not on file documented as of this encounter Visit Diagnoses Not on filedocumented in this encounter Care Teams Print Line Supervisor Relationship Specialty Start Date End Date Grant Lindsey MD PCP - General Family Medicine 02/25/19 documented as of this encounter
--- OUTSIDE RECORDS SUMMARY | 2024-04-08 11:09 | XMS_ITS | Encounter Summary ---
[place] [address] Care Team Providers Care Pastry Mixer Name Role Phone Mehul Valladares DO Primary Care Provider [phone] Encounter Details Date Type Department Care Team (Late st Contact Info) Description 10/16/2017 Orders Only Pre-[place] [id number] Leilani El, JIG B[employer]ER [address] [facility] [place] [address] Social History Tobacco Use Types Packs/Day Years [...] on filedocumented in this encounter Care Teams Pastry Mixer Relationship Specialty Start Date End Date Mehul Valladares DO [address] [place] [address] PCP - General General Internal Medicine 09/04/17 documented as of this encounter
--- OUTSIDE RECORDS SUMMARY | 2024-04-08 11:09 | XMS_ITS | Encounter Summary ---
[place] [address] Care Team Providers Care Crusher Loader Operator Name Role Phone Mehul Valladares DO Primary Care Provider [phone] Encounter Details Date Type Department Care Team (Late st Contact Info) Description 10/16/2017 10:45 AM EDT [place] [phone] Social History Tobacco Use Types Packs/Day Years [...] on filedocumented in this encounter Care Teams Crusher Loader Operator Relationship Specialty Start Date End Date Mehul Valladares DO [address] [place] [address] PCP - General General Internal Medicine 09/04/17 documented as of this encounter
--- OUTSIDE RECORDS SUMMARY | 2024-04-08 11:09 | XMS_ITS | Encounter Summary ---
[place] [address] Care Team Providers Care Pilot Safety Inspector Name Role Phone Mehul Valladares DO Primary Care Provider [phone] Encounter Details Date Type Department Care Team (Late st Contact Info) Description 10/05/2017 [place] [phone] Lavinia Huertas MD Social History Tobacco Use Types Packs/Day [...] EDT Call this morning from Dr. Zamora [place], [place] Patient in his ED looking [...] she saw Dr. Bernadette Rivera, her local strategy specialist. A chest CT scan done on July [...] on filedocumented in this encounter Care Teams Pilot Safety Inspector Relationship Specialty Start Date End Date Mehul Valladares DO [address] [place] [address] PCP - General General Internal Medicine 09/04/17 documented as of this encounter
--- OUTSIDE RECORDS SUMMARY | 2024-04-08 11:09 | XMS_ITS | Encounter Summary ---
Author Organization [facility] [place] [address] Care Team Providers Care Utilities Ground Worker Name Role Phone Mehul Valladares DO Primary Care Provider Encounter Details Date Type Department Care Team (Late st Contact Info) Description 11/10/2017 2:04 PM EDT - 11/10/2017 4:54 PM EDT Surgery [place] [phone] Neptali Palmer MD [facility] [place] [address] PARATHYROIDECTOMY OR EXPLORATION OF PARATHYROID(S) (WRVU 15.6) [...] 8:00 AM Sam Lai DO [facility] 11/13/2017 11:00 AM Bruna Laguerre MD [facility] Outpatient Services/Studies: Calcium Standing Status: Future [...] Take NSAIDS or Tylenol every 6 hours hwkusl-gyb-fpymg for the first 3-5 days following surgery [...] or grocery store, as it is available huhq-zkk-osivvia and does not require a prescription. The [...] please call the General Surgery nurse at [phone], since this may mean that you need [...] will be mailed to you Please call [phone] to confirm the date and time of your appointment if you do not hear from us in the next 2 weeks Future Appointments Date Time Provider Department Center 11/11/2017 8:00 AM [facility] 11/13/2017 11:00 AM Bruna Laguerre MD [facility] Call Doctor for: Call if you have [...] days after surgery. Phone number for questions: [phone] before 5 PM on weekdays [phone] after 5 PM and on weekends/holidays. Ask for the general surgery resident litigation partner. General Instructions None Follow-up Recommendations for Providers: Routine post-operative care. Recheck calcium in 6 weeks and 6 months. CC: Mehul Valladares, Signed: Phil Dalton MD Surgical Oncology Service Service pager [phone] 11/11/2017 documented in this encounter Discharge Instructions [...] Take NSAIDS or Tylenol every 6 hours yayrkz-xbk-pncza for the first 3-5 days following surgery [...] or grocery store, as it is available qoyi-oxh-pwjhsfs and does not require a prescription. The [...] please call the General Surgery nurse at [phone], since this may mean that you need [...] will be mailed to you Please call [phone] to confirm the date and time of your appointment if you do not hear from us in the next 2 weeks Future Appointments Date Time Provider Department Center 11/11/2017 8:00 AM [facility] 11/13/2017 11:00 AM Bruna Laguerre MD [facility] Call Doctor for: Call if you have [...] days after surgery. Phone number for questions: [phone] before 5 PM on weekdays [phone] after 5 PM and on weekends/holidays. Ask for the general surgery resident litigation partner. documented in this encounter Medications at Time [...] (HARDEN/MONA) with portal hypertension who presents to [facility] for parathyroidectomy. S: Kallie Darling endorses no [...] DM, SOCORRO, and cirrohsis who presents to [facility] for a parathyroidectomy. She had a sleep study (per patient) and was given a pacifier thing that would fall out of her mouth during sleep. She agreed to try a CPAP mask tonight. She was placed onV-set Auto with a Max of 15 and a Min of 5. * Op Note - Neptali Palmer MD - 11/10/2017 6:49 PM EDT [facility] Operative Note Patient Name: Kallie Darling : [id number] MR#: [id number] Case Date: 11/10/2017 Surgeon: Surgeon(s) and Role: [...] anesthesia was completed by anesthesiology with the [employer] recurrent laryngeal nerve monitoring system. An attempt [...] Operative Note Patient Name: Kallie Darling : [id number] MR#: [id number] Case Date: 11/10/2017 Surgeon: Surgeon(s) and Role: [...] Glucose, POC 189 65 - 199 mg/dL [facility] Comment: Supplemental ranges: <140 mg/dL before meals <180 mg/dL all other times of the day Blood specimen (specimen) 11/11/2017 8:01 AM EDT 11/11/2017 8:01 AM EDT Neptali Palmer MD POINT OF CARE TAYLOR T ORDERABLES [facility] [place] [address] * Calcium (11/11/2017 3:52 AM EDT) Calcium 10.3 8.5 - 10.5 mg/dL [facility] Blood specimen (specimen) 11/11/2017 3:52 AM EDT 11/11/2017 4:04 AM EDT Narrative Resulting Agency Comment Spec In Lab Neptali Palmer MD CHEMISTRY ORDERAB LES [facility] [place] [address] * POCT Glucose (11/10/2017 10:13 PM EDT) Glucose, POC 166 65 - 199 mg/dL [facility] Comment: Supplemental ranges: <140 mg/dL before meals <180 mg/dL all other times of the day Blood specimen (specimen) 11/10/2017 10:13 PM EDT 11/10/2017 10:13 PM EDT Neptali Palmer MD POINT OF CARE TAYLOR T ORDERABLES Performing Organization Address [facility] Co de Phone Number [facility] [place] [address] * POCT Glucose (11/10/2017 7:59 PM EDT) Glucose, POC 140 65 - 199 mg/dL [facility] Comment: Supplemental ranges: <140 mg/dL before meals <180 mg/dL all other times of the day Blood specimen (specimen) 11/10/2017 7:59 PM EDT 11/10/2017 7:59 PM EDT Neptali Palmer MD POINT OF CARE TAYLOR T ORDERABLES Performing Organization Address [facility] Co de Phone Number [facility] [place] [address] * Intraoperative PTH (Leb/CGP) (11/10/2017 6:41 PM EDT) PTH, Intraoperative 28 9 - 77 pg/mL [facility] Comment: peripheral Called by: PORFIRIO, Read back by: stefan salinas_, Date/Time:11/10/17 19:20. A 50 % decrease in venous iPTH levels at 10 min post adenoma excision is expected if all the hypersecreting parathyroid tissue has been removed (Alexey GL et al. Surgery 1993:114; 5254-1811) Blood specimen (specimen) 11/10/2017 6:41 PM EDT 11/10/2017 6:51 PM EDT Narrative Resulting Agency Comment Spec In Lab Neptali Palmer MD CHEMISTRY ORDERAB LES Performing Organization Address [facility] Co de Phone Number [facility] [place] [address] * Intraoperative PTH (Leb/CGP) (11/10/2017 6:34 PM EDT) PTH, Intraoperative 29 9 - 77 pg/mL [facility] Comment: 15 minute post excision Called by: PORFIRIO, Read back by: stefan salinas_, Date/Time:11/10/17 19:06. A 50 % decrease in venous iPTH levels at 10 min post adenoma excision is expected if all the hypersecreting parathyroid tissue has been removed (Alexey SCHULTZ et al. Surgery 1993:114; [id number]) Blood specimen (specimen) 11/10/2017 6:34 PM EDT 11/10/2017 6:41 PM EDT Narrative Resulting Agency Comment Spec In Lab Neptali Palmer MD CHEMISTRY ORDERAB LES Performing Organization Address [facility] Co de Phone Number [facility] [place] [address] * Intraoperative PTH (Leb/CGP) (11/10/2017 6:29 PM EDT) PTH, Intraoperative 36 9 - 77 pg/mL [facility] Comment: 10 minute post excision Called by: PORFIRIO, Read back by: stefan salinas_, Date/Time:11/10/17 19:00. A 50 % decrease in venous iPTH levels at 10 min post adenoma excision is expected if all the hypersecreting parathyroid tissue has been removed (Alexey SCHULTZ et al. Surgery 1993:114; [id number]) Blood specimen (specimen) 11/10/2017 6:29 PM EDT 11/10/2017 6:34 PM EDT Narrative Resulting Agency Comment Spec In Lab Neptali Palmer MD CHEMISTRY ORDERAB LES Performing Organization Address [facility] Co de Phone Number [facility] [place] [address] * Specimen to Pathology (11/10/2017 6:20 PM EDT) AP Specimen 11/10/2017 6:20 PM EDT 11/10/2017 6:29 PM EDT Narrative [facility] - 11/10/2017 6:29 PM EDT Specimen requisition ordered. ??Separate Pathology report to follow Resulting Agency Comment Spec In Lab Neptali Palmer MD PATHOLOGY/CYTOLOG Y ORDERABLES Performing Organization Address [facility] Co de Phone Number [facility] [place] [address] * Surgical Pathology Report (11/10/2017 6:18 PM EDT) Final Diagnosis [id number] ? Location: PACU; [facility]; The signing pathologist has (i) examined the relevant preparation(s) for the specimen(s) and (ii) rendered or confirmed the diagnosis(es). . ?Surgical Pathology DIAGNOSIS A - Right upper parathyroid Enlarged parathyroid gland, ??compatible with adenoma. Electronically signed by: ??Noemy Gonzalez DO Verified: ??11/13/2017 ?Pathologist Performed at: ??-[facility] Dept. of Pathology, [place], [place] CLINICAL INFORMATION Specimen Submitted: A - Right upper parathyroid Clinical History and Diagnosis: HPT SPECIMEN PROCESSING A - ??Labeled/Fixat stefania: Right upper parathyroid, fresh. Quantity/Size: Single, 4.8 x 3.0 x 1.7 cm, 8.44 g. Tissue Description: Well-circumscri bed nodule of firm brown tissue with relatively homogenous cut surfaces. Sections/Proces sing: Inked and serially sectioned. (R1) ??rolando 11/13/2017 9:24 AM EDT [facility] PARATHYROID STRUCTURE / Unknown 11/10/2017 6:18 PM EDT 11/10/2017 6:18 PM EDT Neptali Palmer MD PATHOLOGY/CYTOLOG Y ORDERABLES Performing Organization Address [facility]/ZIP Co de Phone Number [facility] [place] [address] * (ABNORMAL) Intraoperative PTH (Leb/CGP) (11/10/2017 6:10 PM EDT) PTH, Intraoperative 92(H) 9 - 77 pg/mL [facility] Comment: prte-excision Called by: PORFIRIO, Read back by: _stefan salinas, Date/Time:11/10/17 18:43. A 50 % decrease in venous iPTH levels at 10 min post adenoma excision is expected if all the hypersecreting parathyroid tissue has been removed (Alexey GL et al. Surgery 1993:114; 8131-3385) Blood specimen (specimen) 11/10/2017 6:10 PM EDT 11/10/2017 6:15 PM EDT Narrative Resulting Agency Comment Spec In Lab Neptali Palmer MD CHEMISTRY ORDERAB LES Performing Organization Address [facility] Co de Phone Number [facility] [place] [address] * (ABNORMAL) Intraoperative PTH (Leb/CGP) (11/10/2017 5:17 PM EDT) PTH, Intraoperative 216(H) 9 - 77 pg/mL [facility] Comment: baseline Called by: PORFIRIO, Read back by: Stefan Salinas_, Date/Time:11/10/17 17:50. A 50 % decrease in venous iPTH levels at 10 min post adenoma excision is expected if all the hypersecreting parathyroid tissue has been removed (Alexey GL et al. Surgery 1993:114; 8680-0276) Blood specimen (specimen) 11/10/2017 5:17 PM EDT 11/10/2017 5:21 PM EDT Narrative Resulting Agency Comment Spec In Lab Neptali Palmer MD CHEMISTRY ORDERAB LES Performing Organization Address [facility]/ZIP Co de Phone Number [facility] [place] [address] * POCT Glucose (11/10/2017 1:53 PM EDT) Glucose, POC 104 65 - 199 mg/dL [facility] Comment: Supplemental ranges: <140 mg/dL before meals <180 mg/dL all other times of the day Blood specimen (specimen) 11/10/2017 1:53 PM EDT 11/10/2017 1:53 PM EDT Neptali Palmer MD POINT OF CARE TAYLOR T ORDERABLES [facility] [place] [address] documented in this encounter Visit Diagnoses Not [...] dose on Fri11/10/17 at 2300, Until Discontinued 222 (Given - Provider: Gilberto Nash RN) 0822 [...] 08 (Given - Provider: Vee White, RN) citalopram (CeleXA) tablet 40 mg 40 mg, Oral, DAILY, First dose on Fri11/11/17 at 0900, Until Discontinued, Routine 08 (Given - Provid er: Vee White, BRY) famotidine (PEPCID) tablet 20 mg 20 mg, Oral, 2 TIMES DAILY, First dose on Fri11/10/17 at 2115, Until Discontinued, Routine 2229 (Given - Provider: Gilberto Nash RN) 08 (Given - Provider: Vee White, BRY) gabapentin (NEURONTIN) capsule 800 mg 800 mg, Oral, 3 TIMES DAILY, First dose on Fri11/10/17 at 2115, Until Discontinued, Routine 2228 (Given - Provider: Gilberto Nash RN) 08 (Given - Provider: Vee White, BRY) insulin [...] 8 HOURS PRN, Starting on Fri11/10/17 at 205, Until Fri11/11/17 at 1245, Nausea, May repeat [...] 1 MIN PRN, Starting on Fri11/10/17 at 2057, Until Fri11/11/17 at 1245, flush, Flush pertains [...] 8 HOURS PRN, Starting on Fri11/10/17 at 205, Until Fri11/11/17 at 1245, Nausea, May repeat times one in 30 minutes if ineffective. If multiple antiemetics are ordered, use ondanstron first, Recovery (Recovery- Hospital Unit) documented in this encounter Care Teams Utilities Ground Worker Relationship Specialty Start Date End Date Mehul Valladares DO [address] [place] [address] PCP - General General Internal Medicine 09/04/17 documented as of this encounter
--- OUTSIDE RECORDS SUMMARY | 2024-04-08 11:09 | XMS_ITS | Encounter Summary ---
Author Organization [facility] [place] [address] Care Team Providers Care Laborer Name Role Phone Mehul Valladares DO Primary Care Provider [phone] Reason for Visit * Reason Comments Visual Disturbance Encounter Details Date Type Department Care Team (Late st Contact Info) Description 03/23/2018 2:15 PM EST Office [place] [address] Mauricio Fairchild MD [facility] [place] [address] Age-related nuclear cataract of both eyes; Dry [...] left documented in this encounter Care Teams Laborer Relationship Specialty Start Date End Date Mehul Valladares DO [address] [place] [address] PCP - General General Internal Medicine 09/04/17 documented as of this encounter
--- OUTSIDE RECORDS SUMMARY | 2024-04-08 11:09 | XMS_ITS | Encounter Summary ---
Author Organization [facility] [address] Care Team Providers Care Slasher Operator Name Role Phone Grant Lindsey MD Primary Care Provider [phone] Encounter Details Date Type Department Care Team (Latest Contact Info) Description 07/21/2019 1:00 PM EDT TH Visit (TeleHealth) [place] [id number] Saniya Davis APRN [facility] [place] [address] Hepatic cirrhosis, unspecified hepatic cirrhosis type, unspecified [...] vental hernia surgical repair (05/11/19) done at [facility], no ascites afterwards Preventative Health 1. HAV/HBV: [...] Davis APRN Section of Gastroenterology [place] [address] Grant Lindsey MD [facility] [address] [place] [address] Patient verbally consents to this telephone visit [...] present documented in this encounter Care Teams Slasher Operator Relationship Specialty Start Date End Date Grant Lindsey MD PCP - General Family Medicine 02/25/19 documented as of this encounter
--- OUTSIDE RECORDS SUMMARY | 2024-04-08 11:09 | XMS_ITS | Encounter Summary ---
Author Organization [facility] [place] [address] Care Team Providers Care Ad Clerk Name Role Phone ChikisMehul underwood Brittney SMITH Primary Care Provider [phone] Encounter Details Date Type Department Care Team (Late st Contact Info) Description 11/10/2017 4:51 PM EDT Anesthesia [place] [address] Genaro Rollins MD [facility] [place] [address] Leilani El, MATERIAL DISTRIBUTOR [address] [facility], B3-1 [place] [address] Anesthesia Record Procedure Summary Procedure Name Responsible Anesthesiologist Anesthesia Start Time Anesthesia Stop Time PARATHYROIDECTOMY OR EXPLORATION OF PARATHYROID(S) (WRVU 15.6) (Neck) Genaro Rollins MD 11/10/17 1651 11/10/17 1914 Events Date Time Event Comment 11/10/2017 1609 1651 AN Verify 1651 Start 1651 An Start Data 1655 An Induction 1659 An Intubation 1704 Quick Note Attempted parvez placement to bilat radial arteries [id number] unsuccessfully. Decision to draw PTH peripherally from foot when required. 1710 Break/Relief In Renay bullock man, TEASEL GIG OPERATOR 171 Anesthesia Ready 1725 Quick Note [...] by: Emilia; Removal Date: 11/10/17; Removal Time: 191011/10/17 170 by Marie Nieto CRNA 11/10/17 191 by Marie Nieto CRNA documented in this [...] Rollins MD - 11/10/2017 8:49 PM EDT [facility] Department of Anesthesiology Post-procedure Note Patient: Kallie Darling Procedure Summary Date Anesthesia Start Anesthesia Stop Room / Location 11/10/171650 [facility] OR / [facility] MAIN OR Procedure Diagnosis Surgeon Responsible Provider PARATHYROIDECTOMY OR EXPLORATION OF PARATHYROID(S) (WRVU 15.6) (N/A Neck); FACIAL NERVE MONITORING,SETUP LARYNGEAL (WRVU 1.57) (N/A Neck) (HPT) Ana Dias MD Spence, Brian C, MD All Anesthesia Providers: Anesthesiologist: Genaro Rollins MD TEASEL GIG OPERATOR: Marie Nieto CRNA Most Recent Vitals: 11/10/172044 BP: Pulse: Resp: Temp: 36.6 ??C (97.9 ??F) SpO2: 92% Pain 0 (11/10/17 2030) Patient Location: PACU/[facility] Level of Consciousness: Awake and Alert Pain [...] KNEE ARTHROSCOPY 2001 left ? ? PRO [facility] EBUS GUIDED SAMPL 3/> NODE STATION/STRUX N/A 09/11/2017 BRONCH, W ENDOBRONCHIAL ULTRASOUND (EBUS) GUIDED SAMPLING, 3+ NODES (WRVU 5.21) performed by Josh Guadarrama MD at [facility] ENDOSCOPY ??? PRO COLONOSCOPY, BIOPSY 01/27/2014 COLONOSCOPY FLEXIBLE, WITH BX performed by Natividad Taveras MD at [facility] ENDOSCOPY ??? PRO COLONOSCOPY, DIAGNOSTIC 02/17/2012 COLONOSCOPY, DIAGNOSTIC performed by ENRICO RUGGIERO at [facility] ENDOSCOPY ??? PRO COLONOSCOPY, DIAGNOSTIC 2012 COLONOSCOPY, DIAGNOSTIC performed by Natividad Taveras MD at [facility] ENDOSCOPY ??? PRO NEEDLE BIOPSY LIVER 01/28/2012 ??? PRO UPPER GI ENDOSCOPY, BIOPSY N/A 10/21/2016 UPPER GASTROINTESTINAL ENDOSCOPY,WITH BIOPSY SINGLE OR MULTIPLE (WRVU 2.49) performed by Matthew Garcia MD at [facility] ENDOSCOPY ??? PRO UPPER GI ENDOSCOPY, DIAGNOSTIC N/A 10/21/2016 EGD, UPPER GI ENDOSCOPY performed by Matthew Garcia MD at [facility] ENDOSCOPY ??? UPPER GI ENDOSCOPY, EXAM 2012 UPPER GI ENDOSCOPY performed by Natividad Taveras MD at [facility] ENDOSCOPY Social History Substance Use Topics [...] consented to blood products. Plan discussed with TEASEL GIG OPERATOR. PAT Staff Documentation: Reason for PAT Contact: Surgeon Request Hx of Anesthesia Problem: Denies. Was Patient Seen in [facility]? Yes Additional/Outside Data Requested? Request medical information from outside organization: H&P from PCP to be completed on 11/07/2017. Findings, Assessment and Action: Ms. Darling is a 57 y.o. year old female seen in [facility] prior to planned parathyroidectomy with Dr. 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 Leilani El APRN Pre-Admission Testing [phone] documented in this encounter Plan of Treatment [...] on Fri11/10/17 at 1839, Until Fri11/10/17 at 191, Anesthesia Intra-op, Routine Given 11/10/2017 6:39 PM [...] on Fri11/10/17 at 1655, Until Fri11/10/17 at 191, Anesthesia Intra-op Given 11/10/2017 5:51 PM EDT 50 mg Given 11/10/2017 5:09 PM EDT 100 mg Given 11/10/2017 4:55 PM EDT 200 mg propofol (DIPRIVAN) infusion CONTINUOUS PRN, Starting on Fri11/10/17 at 1704, Until Fri11/10/17 at 191, Anesthesia Intra-op, Routine Rate/Dose Change 11/10/2017 6:20 PM EDT 100 mcg/kg/min 62.4 mL/hr Rate/Dose Change 11/10/2017 5:52 PM EDT 125 mcg/kg/min 78 mL/hr Rate/Dose Change 11/10/2017 5:45 PM EDT 100 mcg/kg/min 62. 4 mL/hr succinylcholine chloride (Quelicin) injection PRN, Starting on Fri11/10/17 at 1656, Until Fri11/10/17 at 191, Anesthesia Intra-op, Routine Given 11/10/2017 4:56 PM EDT 80 mg documented in this encounter Care Teams Ad Clerk Relationship Specialty Start Date End Date Mehul Valladares DO [address] [place] [address] PCP - General General Internal Medicine 09/04/17 documented as of this encounter
--- OUTSIDE RECORDS SUMMARY | 2024-04-08 11:09 | XMS_ITS | Encounter Summary ---
Author Organization [facility] [place] [address] Care Team Providers Care Box Office Clerk Name Role Phone Grant Lindsey MD Primary Care Provider [phone] Encounter Details Date Type Department Care Team (Latest Contact Info) Description 04/19/2020 9:12 AM EST - 04/19/2020 11:59 PM [facility] Hospital Encounter [place] [address] Saniya Thomson, WEIGH AND CHARGE WORKER [facility] [place] [address] Cirrhosis of liver without ascites, unspecified hepatic [...] below. Electronically signed by: Primo Guthrie MD, [facility] ([phone]), at 04/19/2020 9:40 AM ?Primo Guthrie, Staff Physician Electronically Signed Final Report ?? 04/19/2020 09:46 am Narrative 04/19/2020 9:47 AM EST Abdominal ? (Signed Final 04/19/2020 09:46 am) PATIENT INFO: ID #: ? [id number] ?: ??60 (59 yrs)(F) Name: ? KALLIE SMART ? Visit Date: 04/19/2020 09:15 am PERFORMED BY: Performed By: ? Yecenia Cook RDMS Attending: ?Primo Guthrie MD Referred By: ?SANIYA Wilfredo BERTO Location: ? [place] SERVICE(S) PROVIDED: ??UABDLIM - Hepatology Protocol - Abdominal ? 41360 ??Limited Survey Single Organ or Quadrant - ??[id number] INDICATIONS: ??Cirrhosis; HCC surveillance; assess for ??splenomegaly. [...] 04/19/2020 09:46 am) PATIENT INFO: ID #: [id number] : 60 (59 yrs)(F) Name: KALLIE SMART Visit Date: 04/19/2020 09:15 am PERFORMED BY: Performed By: Yecenia Cook RDMS Attending: Primo Guthrie MD Referred By: SANIYA THOMSON Location: [place] SERVICE(S) PROVIDED: UABDLIM - Hepatology Protocol - Abdominal 23429 Limited Survey Single Organ or Quadrant - [id number] INDICATIONS: Cirrhosis; HCC surveillance; assess for splenomegaly. [...] below. Electronically signed by: Primo Guthrie MD, [facility] ([phone]), at 04/19/2020 9:40 AM Primo Guthrie, Staff Physician Electronically Signed Final Report 04/19/2020 09:46 am Saniya Thomson WEIGH AND CHARGE WORKER IMG US GEN ORDERAB LES documented in this encounter Visit Diagnoses Diagnosis Cirrhosis of liver without ascites, unspecified hepatic cirrhosis type documented in this encounter Care Teams Box Office Clerk Relationship Specialty Start Date End Date Grant Lindsey MD PCP - General Family Medicine 02/25/19 documented as of this encounter
--- OUTSIDE RECORDS SUMMARY | 2024-04-08 11:09 | XMS_ITS | Encounter Summary ---
Author Organization [facility] Address [facility] [place] [address] Care Team Providers Care Audio Tape Librarian Name Role Phone Mehul Valladares DO Primary Care Provider [phone] Reason for Referral * Consultation (Routine) - Closed Specialty Diagnoses / Procedures Referred By Nicol sparks Referred To Contact Endocrinology Diagnoses Hyperparathyroidism Josh Guadarrama MD [facility] [place] [address] [facility] [address] [place] [address] Referral ID Status Reason Start Date Expiration Date V isits Requested Visits Authorized [id number] Closed Consult, Test & Treat 09/17/2017 09/17/2018 1 1 Encounter Details Date Type Department Care Team (Late st Contact Info) Description 09/17/2017 Orders [place] [address] Josh Guadarrama MD Hyperparathyroidism Social History Tobacco Use Types Packs/Day [...] unspecified documented in this encounter Care Teams Audio Tape Librarian Relationship Specialty Start Date End Date Mehul Valladares DO [address] [place] [address] PCP - General General Internal Medicine 09/04/17 documented as of this encounter
--- OUTSIDE RECORDS SUMMARY | 2024-04-08 11:09 | XMS_ITS | Encounter Summary ---
Author Organization [facility] [place] [address] Care Team Providers Care Legal Archivist Name Role Phone Mehul Valladares DO Primary Care Provider [phone] Encounter Details Date Type Department Care Team (Late st Contact Info) Description 12/12/2017 Telephone [place] [phone] Ana Dias MD [facility] [place] [address] Social History Tobacco Use Types Packs/Day Years [...] on filedocumented in this encounter Care Teams Legal Archivist Relationship Specialty Start Date End Date Mehul Valladares DO [address] [place] [address] PCP - General General Internal Medicine 09/04/17 documented as of this encounter
--- OUTSIDE RECORDS SUMMARY | 2024-04-08 11:09 | XMS_ITS | Encounter Summary ---
Author Organization [place] [address] Care Team Providers Care Decommissioning Well Site Manager Name Role Phone Grant Lindsey MD Primary Care Provider [phone] Reason for Visit * Consultation (Routine) - Specialty Diagnoses / Procedures Referred By Nicol sparks Referred To Contact Gastroenterology Diagnoses Alcoholic cirrhosis of liver without ascites Unspecified abdominal pain Grant Lindsey MD [address] [place] [address] [place] [address] [facility] [address] [place] [address] Referral ID Status Reason Start Date Expiration Date V isits Requested Visits Authorized [id number] Consult, Test & Treat Connection [facility] PCP Updated and/or Approved 04/16/2019 07/16/2019 6 6 Encounter Details Date Type Department Care Team (Late st Contact Info) Description 06/08/2019 9:00 AM EST Office [place] [address] Saniya Davis, [employer] [facility] [place] [address] Hepatic cirrhosis, unspecified hepatic cirrhosis [...] since then. The surgery was done at [facility] by Dr. Guillen. She states she [...] Davis APRN Section of Gastroenterology [place] [address] Grant Lindsey MD [facility] [place] [address] 38 minutes of this 40 minute visit in face to face discussion regarding disease, prognosis and treatment documented in this encounter Plan of Treatment Not on file documented as of this encounter Results * (ABNORMAL) Prothrombin Time (04/19/2020 10:11 AM EST) Prothrombin Time 12.6(H) 9.4 - 12.5 sec [facility] International Normalization Ratio 1.1 [facility] Comment: An INR <2.0 [...] Lab Saniya Davis APRN HEMATOLOGY [place] [address] documented in this encounter Visit Diagnoses Diagnosis Hepatic cirrhosis, unspecified hepatic cirrhosis type, unspecified whether ascites present documented in this encounter Care Teams Decommissioning Well Site Manager Relationship Specialty Start Date End Date Grant Lindsey MD PCP - General Family Medicine 02/25/19 documented as of this encounter
--- OUTSIDE RECORDS SUMMARY | 2024-04-08 11:09 | XMS_ITS | Encounter Summary ---
Author Organization [facility] [place] [address] Care Team Providers Care Coo & Co Founder Name Role Phone Mehul Valladares DO Primary Care Provider [phone] Encounter Details Date Type Department Care Team (Latest Contact Info) Description 11/11/2017 Orders Only [place] [address] Ana Dias MD [facility] [place] [address] Hyperparathyroidism (Primary Dx) Social History Tobacco Use [...] unspecified documented in this encounter Care Teams Coo & Co Founder Relationship Specialty Start Date End Date Mehul Valladares DO [address] [place] [address] [id number] PCP - General General Internal Medicine 09/04/17 documented as of this encounter
--- OUTSIDE RECORDS SUMMARY | 2024-04-08 11:09 | XMS_ITS | Encounter Summary ---
[place] [address] Care Team Providers Care Benefits Specialist Name Role Phone Grant Lindsey MD Primary Care Provider [phone] Encounter Details Date Type Department Care Team (Late st Contact Info) Description 03/10/2020 Telephone [place] [phone] Gay Cerrato Social History Tobacco Use Types [...] on filedocumented in this encounter Care Teams Benefits Specialist Relationship Specialty Start Date End Date Grant Lindsey MD PCP - General Family Medicine 02/25/19 documented as of this encounter
--- OUTSIDE RECORDS SUMMARY | 2024-04-08 11:10 | XMS_ITS | Encounter Summary ---
[facility] [place] [address] Care Team Providers Care Lighting Engineer Name Role Phone Malu Sampson APRN Primary Care Provider [phone] Encounter Details Date Type Department Care Team (Late st Contact Info) Description 06/20/2017 Telephone [place] [phone] Lina Vogel MD [facility] [place] [address] Social History Tobacco Use Types Packs/Day Years [...] had an ultrasound or labs performed at [facility]. Will attempt to obtain those labs and schedulea follow up. documented in this encounter Plan of Treatment Not on file documented as of this encounter Visit Diagnoses Not on filedocumented in this encounter Care Teams Lighting Engineer Relationship Specialty Start Date End Date Malu Sampson APRN PCP - General Family Medicine 08/28/16 09/03/17 documented as of this encounter
--- OUTSIDE RECORDS SUMMARY | 2024-04-08 11:10 | XMS_ITS | Encounter Summary ---
[place] [address] Care Team Providers Care Patient Case Manager Name Role Phone Malu Sampson APRN Primary Care Provider [phone] Reason for Visit * Reason Onset Date Comments Eye Problem 06/19/2017 Pt would like to schedule appointment to see Dr. Isha pretty. Encounter Details Date Type Department Care Team (Late st Contact Info) Description 06/19/2017 [place] [phone] Mauricio Fairchild MD [facility] [place] [address] Eye Problem (Pt would like to schedule [...] on filedocumented in this encounter Care Teams Patient Case Manager Relationship Specialty Start Date End Date Malu Sampson APRN PCP - General Family Medicine 08/28/16 09/03/17 documented as of this encounter
--- OUTSIDE RECORDS SUMMARY | 2024-04-08 11:10 | XMS_ITS | Encounter Summary ---
Author Organization [facility] Address [facility] [place] [address] Care Team Providers Care Automation Engineering Technician Name Role Phone Malu Sampson APRN Primary Care Provider [phone] Encounter Details Date Type Department Care Team (Latest Contact Info) Description 06/04/2017 - 06/04/2017 11:59 PM [facility] Hospital Encounter Radiology Library at [facility] [place] [phone] Ana Dias MD [facility] [place] [address] Discharge Disposition: Home Social History Tobacco Use [...] Ultrasound Study (06/04/2017 12:00 AM EST) Narrative [facility] - 10/17/2017 9:16 PM EDT This exam is for storage only and is auto-finalizing. Ana Dias MD IMG FILM LIBRARY ORDERABLES Performing Organization Address City/State/[facility] Co de Phone Number [place], [place] documented in this encounter Visit Diagnoses Not on filedocumented in this encounter Care Teams Automation Engineering Technician Relationship Specialty Start Date End Date Malu Sampson, RADHA PCP - General Family Medicine 08/28/16 09/03/17 documented as of this encounter
--- OUTSIDE RECORDS SUMMARY | 2024-04-08 11:10 | XMS_ITS | Encounter Summary ---
Author Organization [facility] [place] [address] Care Team Providers Care Intelligence Officer Name Role Phone Jennie Jackson MD Primary Care Provider [phone] Reason for Visit * Reason Comments Follow-up Encounter Details Date Type Department Care Team (Late st Contact Info) Description 01/11/2015 3:00 PM EDT Follow-[place] [phone] CLINIC, DR [place] Vogel, Lina Henson MD [facility] [place] [address] Alcoholic cirrhosis of liver without ascites Social [...] Lina Vogel - 01/11/2015 2:39 PM EDT [facility] Division of Gastroenterology and Hepatology Outpatient [...] unless decompensation # HCC screening: RUQ US [id number], last one 01/11/15 no lesions # HE: no evidence, but does have constipation, recommending continuing lactulose 1-2 times daily tohave 2-3 BMs daily # Vaccinations: HAV/HBV +/+ Follow up in 6 months with labs and US before. This case was discussed with Dr. Salomon. Lina Vogel MD [place] [address] P: [phone] F: [phone] CC JENNIE JACKSON MD (General) [facility] [address] [place] [address] documented in this encounter Plan of Treatment Not on file documented as of this encounter Visit Diagnoses Diagnosis Alcoholic cirrhosis of liver without ascites Alcoholic cirrhosis of liver documented in this encounter Care Teams Intelligence Officer Relationship Specialty Start Date End Date Jennie Jackson MD [address] [place] [address] PCP - General 03/06/10 08/27/16 documented as of this encounter
--- OUTSIDE RECORDS SUMMARY | 2024-04-08 11:10 | XMS_ITS | Encounter Summary ---
Author Organization [facility] [place] [address] Care Team Providers Care Inside Channel Account Manager Name Role Phone Malu Sampson APRN Primary Care Provider [phone] Encounter Details Date Type Department Care Team (Latest Contact Info) Description 10/21/2016 12:05 PM EDT - 10/21/2016 3:26 PM EDT Hospital Encounter [place] [phone] Matthew Garcia MD [facility] [place] [address] Discharge Disposition: Home Social History Tobacco Use [...] better as expected. Friday-Friday Same Day Endo [phone]-[id number] Otherwise contact [phone] and ask to speak to the games manager projection welding machine operator Follow-up care is a oconnell part of [...] Report (10/21/2016 2:44 PM EDT) Final Diagnosis [id number] ?Location: ; [facility]; A The signing pathologist has (i) examined [...] ng: (T1) ??sns 10/22/2016 4:11 PM EDT [facility] GI Biopsy 10/21/2016 2:44 PM EDT 10/21/2016 2:44 PM EDT GI Biopsy 10/21/2016 2:44 PM EDT 10/21/2016 2:44 PM EDT Matthew Garcia MD PATHOLOGY/CYTOLOGY O [place] Performing Organization Address [facility] [place] [address] * Specimen to Pathology (surgical or derm) (10/21/2016 2:44 PM EDT) AP Specimen 10/21/2016 2:44 PM EDT 10/21/2016 2:44 PM EDT Narrative [facility] - 10/21/2016 2:44 PM EDT Specimen requisition ordered. ??Separate Pathology report to follow Matthew Garcia MD PATHOLOGY/CYTOLOGY O [place] Performing Organization Address [facility] [place] [address] * Specimen to Pathology (surgical or derm) (10/21/2016 2:44 PM EDT) AP Specimen 10/21/2016 2:44 PM EDT 10/21/2016 2:44 PM EDT Narrative [facility] - 10/21/2016 2:44 PM EDT Specimen requisition ordered. ??Separate Pathology report to follow Matthew Garcia MD PATHOLOGY/CYTOLOGY O [place] Performing Organization Address [facility]/ZIP Co de Phone Number [facility] [place] [address] * UPPER GI ENDOSCOPY (10/21/2016 2:15 PM EDT) UPPER GI ENDOSCOPY [facility] Endoscopy Procedure Date: 10/21/2016 2:15 PM ? Patient Name: Kallie Darling ? Date of : 1960 ? Age: 56 ? Order #: [id number] ? Instrument Name: [facility] [id number] ? Procedure: ? Upper GI endoscopy Indications: ? Dyspepsia, Dysphagia, H/o grade one ? varices Providers: ? Matthew Garcia MD, Annie Schwartz, ? RN, Scot Lea, Water Main Installer Helper Referring MD: ?Malu Sampson Medicines: ? Midazolam [...] PROVATION 10/21/2016 2:15 PM EDT Malu Sampson PLUMBING INSTRUCTOR GENERAL SURGICAL OR DERABLES PROVATION documented in [...] Annie Schwartz RN)1423 (Given - Provider: Annie Schwartz, RN)1425 (Given - Provider: Annie Schwartz RN) midazolam (PF) (VERSED) 1 mg/mL multi-dose injection (CANCELED) ONCE PRN, Starting on Fri10/21/16 at 1420, Until Fri10/21/16 at 1726, Intra-Operative (Intra-Procedure), Routine 1420 (Given - Provid er: Annie Schwartz RN)142 (Given - Provider: Annie Schwartz RN)1426 (Given - Provider: Annie Schwartz RN) documented in this encounter Care Teams Inside Channel Account Manager Relationship Specialty Start Date End Date Malu Sampson APRN PCP - General Family Medicine 08/28/16 09/03/17 documented as of this encounter
--- OUTSIDE RECORDS SUMMARY | 2024-04-08 11:10 | XMS_ITS | Encounter Summary ---
Author Organization [facility] [place] [address] Care Team Providers Care Music Professor Name Role Phone Malu Sampson APRN Primary Care Provider [phone] Encounter Details Date Type Department Care Team (Latest Contact Info) Description 07/16/2017 - 07/16/2017 11:59 PM EDT Hospital Encounter Radiology Library at [facility], [place] [phone] Natividad Taveras MD [facility] [place] [address] Discharge Disposition: Home Social History Tobacco Use [...] DX Chest (07/16/2017 12:00 AM EDT) Narrative [facility] - 08/26/2017 5:38 PM EDT This exam is for storage only and is auto-finalizing. L Sulaiman Taveras MD IMG FILM LIBRARY ORD ERABLES Performing Organization Address City/State/[facility] Co de Phone Number [place], [place] documented in this encounter Visit Diagnoses Not on filedocumented in this encounter Care Teams Music Professor Relationship Specialty Start Date End Date Malu Sampson, RADHA PCP - General Family Medicine 08/28/16 09/03/17 documented as of this encounter
--- OUTSIDE RECORDS SUMMARY | 2024-04-08 11:10 | XMS_ITS | Encounter Summary ---
[place] [address] Care Team Providers Care Banana Carrier Name Role Phone Jennie Resendiz MD Primary Care Provider [phone] Encounter Details Date Type Department Care Team (Latest Contact Info) Description 07/07/2014 1:01 PM EDT - 07/07/2014 11:59 PM EDT Hospital [place] [address] Cirrhosis of liver Social History Tobacco Use [...] 04:09 pm) Patient Info ID #: ? [id number] ? : [birth year] (53 yrs) Name: ? KALLIE SMART ?Visit Date:07/07/2014 01:53 pm Performed By Performed By: ?Yumi Toscano RDMS Attending: ? Rhiannon STOCKTON, Carmen JAmrik Referred By: ? SOFIA DAVIS RN LAB Service(s) Provided ??UABDCVASC - Abdominal Complete Survey with Vascular - 39956, 55998 ??[id number], [id number] Indications ??cirrhosis, HCC surveillance, portal HTN surveillance [...] ?Patent Vein: Portal Vein At ?28.0 ?Hepatopetal [place]: Main Portal ? 22.0 ?Hepatopetal Vein: Right Portal ?12.0 ?Hepatopetal Vein: Left Portal Vein: 16.0 ?Hepatopetal Splenic Vein At ?? 30.0 ?Hepatopetal [place]: IVC: ?Patent Collaterals: ??Recanalized periumbilical vein Comment: [...] 07/07/2014 04:09 pm) Patient Info ID #: [id number] : [birth year] (53 yrs) Name: KALLIE SMART Visit Date:07/07/2014 01:53 pm Performed By Performed By: Yumi Toscano RDMS Attending: Carmen Jurado MD Referred By: SOFIA DAVIS RN LAB Service(s) Provided UABDCVASC - Abdominal Complete Survey with Vascular - 45124, 47486 [id number], [id number] Indications cirrhosis, HCC surveillance, portal HTN surveillance [...] Patent Vein: Portal Vein At 28.0 Hepatopetal [place]: Main Portal 22.0 Hepatopetal Vein: Right Portal 12.0 Hepatopetal Vein: Left Portal Vein: 16.0 Hepatopetal Splenic Vein At 30.0 Hepatopetal [place]: IVC: Patent Collaterals: Recanalized periumbilical vein Comment: [...] alcohol documented in this encounter Care Teams Banana Carrier Relationship Specialty Start Date End Date Jennie Resendiz MD [address] [place] [address] PCP - General 03/06/10 08/27/16 documented as of this encounter
--- OUTSIDE RECORDS SUMMARY | 2024-04-08 11:10 | XMS_ITS | Encounter Summary ---
[facility] [place] [place] [address] Care Team Providers Care Utility Specialist Name Role Phone Jennie Resendiz MD Primary Care Provider [phone] Encounter Details Date Type Department Care Team (Late st Contact Info) Description 01/27/2014 10:30 AM EDT - 01/27/2014 11:15 AM EDT Surgery [place] [address] Natividad Stevens MD [facility] [place] [address] COLONOSCOPY FLEXIBLE, WITH BX (WRVU 3.56) Social [...] be sent through Care Everywhere. * POLYPS (SLOVENIAN) documented in this encounter Medications at Time [...] Stevens MD - 01/27/2014 11:19 AM EDT [facility] Oper[place] Note Patient Name: Kallie Darling : [id number] MR#: [id number] Case Date: 01/27/2014 Surgeon: Surgeon(s) and Role: [...] AM EDT) C Diff Interp Negative Negative [facility] Stool specimen (specimen) 01/27/2014 11:35 AM EDT 01/27/2014 1:38 PM EDT Narrative Resulting Agency Comment Spec In Lab Natividad Stevens MD MICROBIOLOGY - GENER AL ORDERABLES [facility] * Surgical Pathology Report (01/27/2014 11:21 AM EDT) Final Diagnosis ? [facility] ? Provider: ?? Natividad STEVENS ?Pt. Name: ?? CIGAR HEAD PERFORATORKALLIE DUENAS Wilfredo ? Acc #: ?[id number] ?Pt. ? Col Date: ?? 01/27/2014 ?/Sex: [...] JRP ? 01/28/14 Verified by: ? Stephanie STOCKOTN, Valdez Garvey ? Pathologist ? (Electronic Signature) [...] Description--- ? Whole slide scan: ? S [id number] B1-1 ? S [id number] B2-1 ? S [id number] C1-1 ? ---Gross Description--- ? A - Labeled/Fixative : Polyp-sigmoid 30 cm, formalin. ? Quantity/Size: Two, 0.3 and 0.4 cm. ? Tissue Description: Soft, florian-pink tissue. ? Sections/Process ing: (T1) ? B - Labeled/Fixative : Mucosal biopsies, right colon, formalin. ? Quantity/Size: Multiple, 0.2-0.4 cm. ? [facility] ? Provider: ?? Natividad STEVENS ?Pt. Name: ?? KALLIE DARLING ? Acc #: ?[id number] ?Pt. ? Col Date: ?? 01/27/2014 ?/Sex: [...] Diagnosis: ? Same 01/28/2014 4:33 PM EDT [facility] GI Biopsy 01/27/2014 11:2 1 AM EDT 01/27/2014 11:21 AM EDT GI Biopsy 01/27/2014 11:2 1 AM EDT 01/27/2014 11:21 AM EDT GI Biopsy 01/27/2014 11:2 1 AM EDT 01/27/2014 11:21 AM EDT L Sulaiman Stevens MD PATHOLOGY/CYTOLOGY O RDERABLES LILLIE HUIZAR [facility] [place] [address] * Specimen to Pathology (surgical or derm) (01/27/2014 11:21 AM EDT) AP Specimen 01/27/2014 11:2 1 AM EDT 01/27/2014 11:21 AM EDT Narrative LILLIE HUIZAR - 01/27/2014 11:21 AM EDT Specimen requisition ordered. ??Separate Pathology report to follow L Sulaiman Stevens MD PATHOLOGY/CYTOLOGY O [place] Performing Organization Address [facility] Phone Number [facility] * Specimen to Pathology (surgical or derm) (01/27/2014 11:21 AM EDT) AP Specimen 01/27/2014 11:2 1 AM EDT 01/27/2014 11:21 AM EDT Narrative LILLIE HUIZAR - 01/27/2014 11:21 AM EDT Specimen requisition ordered. ??Separate Pathology report to follow L Sulaiman Stevens MD PATHOLOGY/CYTOLOGY O [place] Performing Organization Address [facility] Phone Number [facility] * Specimen to Pathology (surgical or derm) (01/27/2014 11:21 AM EDT) AP Specimen 01/27/2014 11:2 1 AM EDT 01/27/2014 11:21 AM EDT Narrative LILLIE HUIZAR - 01/27/2014 11:21 AM EDT Specimen requisition ordered. ??Separate Pathology report to follow L Sulaiman Stevens MD PATHOLOGY/CYTOLOGY O [place] Performing Organization Address [facility] de Phone Number [facility] * COLONOSCOPY (01/27/2014 8:59 AM EDT) COLONOSCOPY [facility] Endoscopy ___ Patient Name: Kallie Darling ? Procedure Date: 01/27/2014 8:59 AM ? Date of : 1960 ? Age: 53 ? Order #: [id number] ? ___ Procedure: ? Colonoscopy Indications: ? Screening for colorectal malignant ? neoplasm; patient with coincidental ? acute diarrhea following recent ? antibiotics for pneumonia. Providers: ? LAmrik Stevens MD, Kaila Sanchez, ? Mala LONDONO MD: [...] ? please call our office at ? [phone]. ? _ L. Sulaiman Stevens MD 01/27/2014 [...] uncomfortable) documented in this encounter Care Teams Utility Specialist Relationship Specialty Start Date End Date Jennie Resendiz MD [address] [place] [address] PCP - General 03/06/10 08/27/16 documented as of this encounter
--- OUTSIDE RECORDS SUMMARY | 2024-04-08 11:10 | XMS_ITS | Encounter Summary ---
[place] [address] Care Team Providers Care Media Analytics Manager Name Role Phone Jennie Resendiz MD Primary Care Provider [phone] Reason for Visit * Reason Onset Date Comments Prior Authorization 03/22/2015 Encounter Details Date Type Department Care Team (Late st Contact Info) Description 03/22/2015 Telephone [place] [phone] Paloma Haji CMA Prior Authorization Social History Tobacco Use Types [...] mouth BID Pharmacy Name and phone number: [facility] [phone] Insurance name and phone number: [place] [phone] Insurance ID number:[id number] Faxed to health plan on: 03/22/2015 medications tried and failed: been on this regiment since 2012 Health plan decision: Medication does not require a PA. Already paid claim in place. documented in this encounter Plan of Treatment Not on file documented as of this encounter Visit Diagnoses Not on filedocumented in this encounter Care Teams Media Analytics Manager Relationship Specialty Start Date End Date Jennie Resendiz MD [facility] [address] [place] [address] PCP - General 03/06/10 08/27/16 documented as of this encounter
--- OUTSIDE RECORDS SUMMARY | 2024-04-08 11:10 | XMS_ITS | Encounter Summary ---
[place] [address] Care Team Providers Care Application Packaging Consultant Name Role Phone Jennie Resendiz MD Primary Care Provider [phone] Reason for Visit * Reason Onset Date Comments Other 09/07/2015 Encounter Details Date Type Department Care Team (Late st Contact Info) Description 09/07/2015 Telephone [place] [address] Gary De Leon RN Other [...] on filedocumented in this encounter Care Teams Application Packaging Consultant Relationship Specialty Start Date End Date Jennie Resendiz MD [facility] [address] [facility] [address] [place] [address] PCP - General 03/06/10 08/27/16 documented as of this encounter
--- OUTSIDE RECORDS SUMMARY | 2024-04-08 11:10 | XMS_ITS | Encounter Summary ---
[facility] Organization [facility] [place] [address] Care Team Providers Care Manuscripts Archivist Name Role Phone Malu Sampson APRN Primary Care Provider [phone] Encounter Details Date Type Department Care Team (Late st Contact Info) Description 10/21/2016 2:30 PM EDT - 10/21/2016 3:00 PM EDT [place] [phone] Matthew Garcia MD [facility] [place] [address] EGD, UPPER GI ENDOSCOPY (WRVU 2.09) Social [...] better as expected. Friday-Friday Same Day Endo [phone] Otherwise contact [phone] and ask to speak to the preboarder environmental emergencies assistant Follow-up care is a oconnell part of [...] Report (10/21/2016 2:44 PM EDT) Final Diagnosis [id number] ?Location: ; [facility]; A The signing pathologist [...] ng: (T1) ??sns 10/22/2016 4:[address] [facility] GI Biopsy 10/21/2016 2:44 PM EDT 10/21/2016 2:44 PM EDT GI Biopsy 10/21/2016 2:44 PM EDT 10/21/2016 2:44 PM EDT Matthew Garcia MD PATHOLOGY/CYTOLOGY O SELWYN Performing Organization Address [facility] Co de Phone Number [facility] [place] [address] * Specimen to Pathology (surgical or derm) (10/21/2016 2:44 PM EDT) AP Specimen 10/21/2016 2:44 PM EDT 10/21/2016 2:[address] [facility] - 10/21/2016 2:44 PM EDT Specimen requisition ordered. ??Separate Pathology report to follow Matthew Garcia MD PATHOLOGY/CYTOLOGY O SELWYN Performing Organization Address [facility] Co de Phone Number [facility] [place] [address] * Specimen to Pathology (surgical or derm) (10/21/2016 2:44 PM EDT) AP Specimen 10/21/2016 2:44 PM EDT 10/21/2016 2:[address] [facility] - 10/21/2016 2:44 PM EDT Specimen requisition ordered. ??Separate Pathology report to follow Matthew Garcia MD PATHOLOGY/CYTOLOGY O SELWYN Performing Organization Address [facility] Co de Phone Number [facility] [place] [address] * UPPER GI ENDOSCOPY (10/21/2016 2:15 PM EDT) UPPER GI ENDOSCOPY [facility] Endoscopy Procedure Date: 10/21/2016 2:15 PM ? Patient Name: Kallie Darling ? Date of : 1960 ? Age: 56 ? Order #: [id number] ? Instrument Name: [facility] [id number] ? Procedure: ? Upper GI endoscopy Indications: ? Dyspepsia, Dysphagia, H/o grade one ? varices Providers: ? Matthew Garcia MD, Annie Schwartz, ? RN, Scot Lea, Corporate Representative Referring MD: ?Malu Sampson Medicines: ? Midazolam [...] RN) documented in this encounter Care Teams Manuscripts Archivist Relationship Specialty Start Date End Date Malu Sampson APRN PCP - General Family Medicine 08/28/16 09/03/17 documented as of this encounter
--- OUTSIDE RECORDS SUMMARY | 2024-04-08 11:10 | XMS_ITS | Encounter Summary ---
Author Organization [place] [address] Care Team Providers Care Placement Specialist Name Role Phone Jennie Resendiz MD Primary Care Provider [phone] Encounter Details Date Type Department Care Team (Latest Contact Info) Description 01/27/2014 9:20 AM EDT - 01/27/2014 11:30 AM EDT Hospital Encounter [place] [phone] Fiona Feliz MD Levy, L Campbell, MD [facility] [place] [address] Discharge Disposition: Home Social History Tobacco Use [...] be sent through Care Everywhere. * POLYPS ([place]) documented in this encounter Medications at Time [...] Stevens MD - 01/27/2014 11:19 AM EDT [facility] Operative Note Patient Name: Kallie Darling : [id number] MR#: [id number] Case Date: 01/27/2014 Surgeon: Surgeon(s) and Role: [...] Stevens MD MICROBIOLOGY - GENER AL ORDERABLES [facility] * Surgical Pathology Report (01/27/2014 11:21 AM EDT) Final Diagnosis ? [facility] ? Provider: ?? Natividad STEVENS ?Pt. Name: ?? PRIEST KALLIE Wilfredo ? Acc #: ?[id number] ?Pt. ? Col Date: ?? 01/27/2014 ?/Sex: [...] Description--- ? Whole slide scan: ? S [id number] B1-1 ? S [id number] B2-1 ? S [id number] C1-1 ? ---Gross Description--- ? A - Labeled/Fixative : Polyp-sigmoid 30 cm, formalin. ? Quantity/Size: Two, 0.3 and 0.4 cm. ? Tissue Description: Soft, florian-pink tissue. ? Sections/Process ing: (T1) ? B - Labeled/Fixative : Mucosal biopsies, right colon, formalin. ? Quantity/Size: Multiple, 0.2-0.4 cm. ? [facility] ? Provider: ?? Natividad STEVENS ?Pt. Name: ?? KALLIE DARLING ? Acc #: ?[id number] ?Pt. ? Col Date: ?? 01/27/2014 ?/Sex: [...] Diagnosis: ? Same 01/28/2014 4:33 PM EDT [facility] GI Biopsy 01/27/2014 11:2 1 AM EDT 01/27/2014 11:21 AM EDT GI Biopsy 01/27/2014 11:2 1 AM EDT 01/27/2014 11:21 AM EDT GI Biopsy 01/27/2014 11:2 1 AM EDT 01/27/2014 11:21 AM EDT L Sulaiman Stevens MD PATHOLOGY/CYTOLOGY O RDERABLES [facility] [place] [address] * Specimen to Pathology (surgical or derm) (01/27/2014 11:21 AM EDT) AP Specimen 01/27/2014 11:2 1 AM EDT 01/27/2014 11:21 AM EDT Narrative LILLIE HUIZAR - 01/27/2014 11:21 AM EDT Specimen requisition ordered. ??Separate Pathology report to follow L Sulaiman Stevens MD PATHOLOGY/CYTOLOGY O SELWYN Performing Organization Address [facility] Phone Number LILLIE HUIZAR * Specimen to Pathology (surgical or derm) (01/27/2014 11:21 AM EDT) AP Specimen 01/27/2014 11:2 1 AM EDT 01/27/2014 11:21 AM EDT Narrative LILLIE HUIZAR - 01/27/2014 11:21 AM EDT Specimen requisition ordered. ??Separate Pathology report to follow L Sualiman Stevens MD PATHOLOGY/CYTOLOGY O SELWYN Performing Organization Address [facility] Phone Number LILLIE HUIZAR * Specimen to Pathology (surgical or derm) (01/27/2014 11:21 AM EDT) AP Specimen 01/27/2014 11:2 1 AM EDT 01/27/2014 11:21 AM EDT Narrative LILLIE HUIZAR - 01/27/2014 11:21 AM EDT Specimen requisition ordered. ??Separate Pathology report to follow L Sulaiman Stevens MD PATHOLOGY/CYTOLOGY O SELWYN Performing Organization Address [facility] de Phone Number LILLIE [facility] * COLONOSCOPY (01/27/2014 8:59 AM EDT) COLONOSCOPY [facility] Endoscopy ___ Patient Name: Kallie Darling ? Procedure Date: 01/27/2014 8:59 AM ? Date of : 1960 ? Age: 53 ? Order #: [id number] ? ___ Procedure: ? Colonoscopy Indications: ? Screening for colorectal malignant ? neoplasm; patient with coincidental ? acute diarrhea following recent ? antibiotics for pneumonia. Providers: ? Sana Stevens MD, Kaila Sanchez, ? Mala LONDONO [...] ? please call our office at ? [phone]. ? _ L. Sulaiman Stevens MD 01/27/2014 11:30 AM Number of Addenda: 0 Note Initiated On: 01/27/2014 8:59 AM PROVATION 01/27/2014 8:59 AM EDT Jnenie Resendiz MD GENERAL SURGICAL ORD ERABLES PROVATION [...] uncomfortable) documented in this encounter Care Teams Placement Specialist Relationship Specialty Start Date End Date Jennie Resendiz MD [address] [place] [address] PCP - General 03/06/10 08/27/16 documented as of this encounter
--- OUTSIDE RECORDS SUMMARY | 2024-04-08 11:10 | XMS_ITS | Encounter Summary ---
Author Organization [facility] [place] [place] [address] Care Team Providers Care Fiber Optic Assembler Name Role Phone Jennie Jackson MD Primary Care Provider [phone] Reason for Visit * Reason Comments Follow-up Encounter Details Date Type Department Care Team (Late st Contact Info) Description 08/30/2015 4:30 PM EDT Office Visit [place] [address] Lina Vogel MD [facility] [place] [address] Hepatic cirrhosis, unspecified hepatic cirrhosis type Social [...] Lina Vogel - 08/30/2015 4:39 PM EDT [facility] Division of Gastroenterology and Hepatology Outpatient [...] unless decompensation # HCC screening: RUQ US [id number], last one 01/11/15 no lesions, will schedule next one # HE: no evidence, but does have constipation, recommending continuing lactulose 1-2 times daily tohave 2-3 BMs daily # Vaccinations: HAV/HBV +/+ - pneumovax q5 years - yearly influenza vaccine Follow up in 6 months with labs and US before. This case was discussed with Dr. Salomon. Lina Vogel MD [place] [address] P: [phone] F: [phone] CC JENNIE JACKSON MD [facility] [address] [place] [address] documented in this encounter Plan of Treatment [...] 5:50 PM EDT) Neutrophil % 45.4 % [facility] Neutrophil Absolute 2.88 1.50 - 6.30 x10(3)/mcL [facility] Lymph % 45.2 % [facility] Lymphocytes Abs 2.9 1.0 - 3.6 x10(3)/[facility] Monocyte % 6.8 % [facility] Monocyte Abs 0.4 0.2 - 1.0 x10(3)/[facility] Eos % 2.2 % [facility] Eosinophils Abs 0.1 0.0 - 0.5 x10(3)/[facility] Basophil % 0.2 % [facility] Baso Absolute 0.0 0.0 - 0.2 x10(3)/[facility] Immature Gran % 0.20 % [facility] Comment: Immature granulocytes(IG's)percentage and absolute count will include metamyelocytes, myelocytes, and promyelocytes. Blood smears from CBCs yielding IG's will be scanned manually for concordance. If this scan disagrees with the automated IG or if promyelocytes are noted, a manual differential will be performed. Immature Gran Absolute 0.01 0.00 - 0.05 x10(3)/[facility] Blood specimen (specimen) 08/30/2015 5:50 PM EDT 08/30/2015 5:56 PM EDT Narrative Resulting Agency Comment Spec In Lab Ashley Salomon MD HEMATOLOGY ORDERABLE S [facility] [place] [address] * (ABNORMAL) Hemogram (08/30/2015 5:50 PM EDT) White Blood Cell 6.3 4.0 - 10.0 x10(3)/[facility] Red Blood Cell 4.57 3.93 - 5.22 x10(6)/[facility] Hemoglobin 14.0 11.2 - 15.7 gm/dL [facility] Hematocrit 41.7 34.0 - 45.0 % [facility] Mean Cell Volume 91.2 79.0 - 94.0 fL [facility] Mean Cell Hemoglobin 30.6 26.6 - 32.2 pg [facility] Mean Cell Hemoglobin Concentration 33.6 32.0 - 36.5 gm/dL [facility] Platelet 107(L) 145 - 370 x10(3)/mc L [facility] RDW Standard Deviation 44.9 35.0 - 46.0 fL [facility] RDW coefficient of variation 13.7 10.9 - 14.4 % [facility] Mean Platelet Volume 10.6 9.0 - 12.0 fL [facility] Blood specimen (specimen) 08/30/2015 5:50 PM EDT 08/30/2015 5:56 PM EDT Narrative Resulting Agency Comment Spec In Lab Ashley Salomon MD HEMATOLOGY ORDERABLE S [facility] [place] [address] * (ABNORMAL) Comprehensive metabolic panel (non-fasting) (08/30/2015 5:50 PM EDT) Glucose 97 65 - 199 mg/dL [facility] Comment:Diabetes: >=200 mg/d L plus symptoms Blood Urea Nitrogen 11 8 - 18 mg/dL [facility] Creatinine 0.76 0.70 - 1.20 mg/dL [facility] Comment: Please note that the pediatric reference intervals supplied above were not validated at [facility]. Results from pediatric patients should be interpreted in conjunction to the patient's age, height and muscle mass. Sodium 138 135 - 145 mmol/L [facility] Potassium 4.1 3.5 - 5.0 mmol/L [facility] Comment: Please note: ??Patients with WBC >100,000 may have falsely elevated Potassium levels. ??For accurate Potassium quantification in these patients send serum separator tube (gold top) for subsequent determinations. ??Contact the Clinical Chemistry Laboratory if there are any questions. Chloride 101 98 - 107 mmol/L [facility] Carbon Dioxide 25 22 - 31 mmol/L [facility] Anion Gap 12 5 - 15 mmol/L [facility] Calcium 10.9(H) 8.5 - 10.5 mg/dL [facility] Protein, Total 7.5 6.1 - 8.0 gm/dL [facility] Albumin 4.6 3.2 - 5.2 gm/dL [facility] Aspartate Aminotransferase 34(H) 0 - 30 unit/L [facility] Alanine Aminotransferase 19 0 - 30 unit/L [facility] Alkaline Phosphatase 138(H) 40 - 104 unit/L [facility] Bilirubin, Total 0.4 0.2 - 1.3 mg/dL [facility] Bilirubin, Direct 0.1 0.0 - 0.3 mg/dL [facility] Est Glomerular Filtration Rate >60 >=60 [facility] Comment: This estimated GFR (eGFR) value [...] the following links into your internet browser. [email or web address] Blood specimen (specimen) 08/30/2015 5:50 PM EDT 08/30/2015 5:56 PM EDT Narrative Resulting Agency Comment Spec In Lab Ashley Salomon MD CHEMISTRY ORDERABLES [facility] [place] [address] * (ABNORMAL) Prothrombin Time (08/30/2015 5:50 PM EDT) Prothrombin Time 15.3(H) 12.0 - 15.0 sec [facility] [...] International Normalization Ratio 1.2(H) 0.9 - 1.1 [facility] Blood specimen (specimen) 08/30/2015 5:50 PM EDT 08/30/2015 5:56 PM EDT Narrative Resulting Agency Comment Spec In Lab Ashley Salomon MD HEMATOLOGY ORDERABLE S [facility] [place] [address] * (ABNORMAL) Lipid panel (fasting) (08/30/2015 5:50 PM EDT) Cholesterol, Total 161 <=199 mg/dL [facility] Comment: Recommendations of the NCEP Adult Treatment Panel for the following risk cutoff thresholds for the [place] population: Desirable: <200 mg/dL Borderline High: 200-239 mg/dL High: > or = 240 mg/dL Triglyceride 157(H) <=149 mg/dL [facility] Comment: Reference Range: Normal triglycerides: ??<150 mg/dL Borderline high: ??150-199 mg/dL High: ??200-499 mg/dL Very high: ??>pv=023 mg/dL YAMILEX 2001; 285(19):1650-1054 HDL Cholesterol 39(L) >=40 mg/dL [facility] Comment: Reference range: ??Low HDL: ?? < 40 mg/dL ??Normal: ?40-60 mg/dL ??Desirable: > 60 mg/dL YAMILEX 2001; 285(19):6987-6383 LDL Cholesterol 91 <=99 mg/dL [facility] Comment: Reference range: ?? Optimal: ?<100 mg/dL ?? Near Optimal/Above Optimal: ?? 100-129 mg/dL ?? Borderline high: ?130-159 mg/dL ?? High: ? 160-189 mg/dL ?? Very high: ?>ou=296 mg/dL YAMILEX 2001: 285(19):9630-3290 Cholesterol/HDL Ratio 4.1 ratio [facility] Comment: A Cholesterol to HDL ratio below 4:1 is desirable. ??Studies suggest that increased CAD risk occurs at ratios above 5 for females and above 6 for men. ? [place] Heart Association ??(http://www.americanheart.org) ? Sherry Int Med, 1994; 121:641 ? AM J Med, 1998; 105(1A):48S Blood specimen (specimen) 08/30/2015 5:50 PM EDT 08/30/2015 5:56 PM EDT Narrative Resulting Agency Comment Spec In Lab Ashley Salomon MD CHEMISTRY ORDERABLES [facility] [place] [address] * Hemoglobin A1c (08/30/2015 5:50 PM EDT) Hemoglobin A1c 5.3 4.3 - 5.6 % [facility] Comment: Reference Range: 4.3 [...] 1, S67-74 Estimated Average Glucose 105 mg/dL [facility] Comment: eAG equivalents for HbA1c percentages: HbA1c(%) ?eAG(mg/dL) 6.0 ?126 6.5 ?140 7.0 ?154 7.5 ?169 8.0 ?183 8.5 ?197 9.0 ?212 9.5 ?226 10.0 ? 240 Limitations: The eAG calculation has not been validated on women, individuals below 18 years old and above 70 years old, and individuals with hemoglobinopathies. Additional resources are available on the ADA website: http://BidRazorl.com/DHMCadacalc Rg ADDISON, Alva J, Saran R, et al. ??Translating the A1C assay into estimated average glucose values. ??Diabetes Care 2008:31(8):8582-4316. Blood specimen (specimen) 08/30/2015 5:50 PM EDT 08/30/2015 5:56 PM EDT Narrative Resulting Agency Comment Spec In Lab Ashley Salomon MD CHEMISTRY ORDERABLES [facility] [place] [address] documented in this encounter Visit Diagnoses Diagnosis Hepatic cirrhosis, unspecified hepatic cirrhosis type documented in this encounter Care Teams Fiber Optic Assembler Relationship Specialty Start Date End Date Jennie Jackson MD [address] [place] [address] PCP - General 03/06/10 08/27/16 documented as of this encounter
--- OUTSIDE RECORDS SUMMARY | 2024-04-08 11:10 | XMS_ITS | Encounter Summary ---
Author Organization [facility] [place] [address] Care Team Providers Care Retread Builder Name Role Phone Malu Sampson APRN Primary Care Provider [phone] Reason for Visit * Reason Comments Eye Pain Encounter Details Date Type Department Care Team (Late st Contact Info) Description 06/26/2017 10:00 AM EDT Office Visit [place] [address] Mauricio Fairchild MD [facility] [place] [address] Visual disturbance Social History Tobacco Use Types [...] disturbance documented in this encounter Care Teams Retread Builder Relationship Specialty Start Date End Date Malu Sampson APRN PCP - General Family Medicine 08/28/16 09/03/17 documented as of this encounter
--- OUTSIDE RECORDS SUMMARY | 2024-04-08 11:10 | XMS_ITS | Encounter Summary ---
Author [facility] [place] [address] Care Team Providers Care Phytochemistry Professor Name Role Phone Malu Sampson APRN Primary Care Provider [phone] Reason for Visit * Reason Comments Procedure Pt here for GVF toda y Encounter Details Date Type Department Care Team (Late st Contact Info) Description 05/16/2017 10:00 AM EST Office [place] [address] Mauricio Fairchild MD [facility] [place] [address] Visual disturbances Social History Tobacco Use Types [...] disturbance documented in this encounter Care Teams Phytochemistry Professor Relationship Specialty Start Date End Date Malu Sampson APRN PCP - General Family Medicine 08/28/16 09/03/17 documented as of this encounter
--- OUTSIDE RECORDS SUMMARY | 2024-04-08 11:10 | XMS_ITS | Encounter Summary ---
Author Organization [facility] [place] [address] Care Team Providers Care Ice Rink Attendant Name Role Phone Malu Sampson APRN Primary Care Provider [phone] Encounter Details Date Type Department Care Team (Late st Contact Info) Description 06/26/2017 11:30 AM EDT Office [place] [phone] Lina Vogel MD [facility] [place] [address] Lower abdominal pain Social History Tobacco Use [...] from the original note were not included. [facility] Division of Gastroenterology and Hepatology Outpatient Follow [...] her PCP. She will not go to [facility]. She is having hematuria. - Her right [...] on carvedilol # HCC screening: RUQ US [id number], no HCC # HE: no evidence, but does have constipation, recommending a laxative or lactulose 1-2 times dailyto have 2-3 BMs daily # Vaccinations: HAV/HBV +/+ Follow up in 6 months with labs and US before. This case was discussed with Dr. Laguerre. Lina Vogel MD Fellow [place] [address] P: [phone] F: [phone] Malu Sampson APRN [address], [facility] [address] [place] [address] * Bruna Laguerre MD - 06/26/2017 11:30 [...] site documented in this encounter Care Teams Ice Rink Attendant Relationship Specialty Start Date End Date Malu Sampson APRN PCP - General Family Medicine 08/28/16 09/03/17 documented as of this encounter
--- OUTSIDE RECORDS SUMMARY | 2024-04-08 11:10 | XMS_ITS | Encounter Summary ---
Author Organization [facility] [place] [address] Care Team Providers Care Classification Counselor Name Role Phone Malu Sampson APRN Primary Care Provider [phone] Encounter Details Date Type Department Care Team (Latest Contact Info) Description 10/21/2016 9:58 AM EDT - 10/21/2016 12:04 PM EDT Hospital [place] [address] Ashley Thompson MD [facility] [place] [address] RUQ pain Discharge Disposition: Home Social History [...] The right kidney is normal. ? Carmen Jurado MD Electronically Signed Final Report ?? 10/21/2016 12:04 pm Narrative 10/21/2016 12:05 PM EDT Abdominal ? (Signed Final 10/21/2016 12:04 pm) PATIENT INFO: ID #: ? [id number] ?: ??[birth year] (56 yrs) Name: ? KALLIE Villalobos DIRECTOR OF CLAIMS ? Visit Date: 10/21/2016 11:46 am PERFORMED BY: Performed By: ? Neon EVANS, ??Demetra Attending: ?Rhiannon STOCKTON, Carmen Keller. Referred By: ?ASHLEY THOMPSON Location: ? [place] SERVICE(S) PROVIDED: ??UABDLIM - Abdominal Limited Survey Single ? 85852 ??Organ or Quadrant - [id number] INDICATIONS: ??Compensated cirrhosis, assess for HCC ------ [...] 10/21/2016 12:04 pm) PATIENT INFO: ID #: [id number] : [birth year] (56 yrs) Name: KALLIE DARLING Visit Date: 10/21/2016 11:46 am PERFORMED BY: Performed By: Demetra Lazcano RDMS Attending: Carmen Jurado MD Referred By: ASHLEY THOMPSON Location: [place] SERVICE(S) PROVIDED: UABDLIM - Abdominal Limited Survey Single 36442 Organ or Quadrant - [id number] INDICATIONS: Compensated cirrhosis, assess for HCC ------ [...] quadrant documented in this encounter Care Teams Classification Counselor Relationship Specialty Start Date End Date Malu Sampson APRN PCP - General Family Medicine 08/28/16 09/03/17 documented as of this encounter
--- OUTSIDE RECORDS SUMMARY | 2024-04-08 11:10 | XMS_ITS | Encounter Summary ---
Author Organization [facility] Address [facility] [place] [address] Care Team Providers Care Launch Leader Name Role Phone Malu Sampson APRN Primary Care Provider [phone] Encounter Details Date Type Department Care Team (Latest Contact Info) Description 06/27/2017 - 06/27/2017 11:59 PM EDT Hospital Encounter Radiology Library at [facility] [place] [phone] Ana Dias MD [facility] [place] [address] Discharge Disposition: Home Social History Tobacco Use [...] Abdomen Pelvis (06/27/2017 12:00 AM EDT) Narrative [facility][NOTE 2] - 10/17/2017 9:18 PM EDT This exam is for storage only and is auto-finalizing. Ana Dias MD IMG FILM LIBRARY ORDERABLES Performing Organization Address City/State/[facility] Co de Phone Number [place], [place] documented in this encounter Visit Diagnoses Not on filedocumented in this encounter Care Teams Launch Leader Relationship Specialty Start Date End Date Malu Sampson APRN PCP - General Family Medicine 08/28/16 09/03/17 documented as of this encounter
--- OUTSIDE RECORDS SUMMARY | 2024-04-08 11:10 | XMS_ITS | Encounter Summary ---
Author Organization [facility] Address [facility] [place] [address] Care Team Providers Care Mac Artist Name Role Phone Malu Sampson APRN Primary Care Provider [phone] Encounter Details Date Type Department Care Team (Latest Contact Info) Description 08/18/2017 - 08/18/2017 12:04 AM EDT Hospital Encounter Radiology Library at [facility] [place] [phone] Doc Lancaster MD [facility] [place] [address] Discharge Disposition: Home Social History Tobacco Use [...] CT Head (08/18/2017 12:00 AM EDT) Narrative FORMERLY NAMED [facility] - 08/19/2017 9:11 AM EDT This exam is for storage only and is auto-finalizing. Doc Lancaster MD [facility] FILM LIBRARY ORD ERABLES Performing Organization Address City/State/[facility] Co de Phone Number [place], [place] documented in this encounter Visit Diagnoses Not on filedocumented in this encounter Care Teams Mac Artist Relationship Specialty Start Date End Date Malu Sampson APRN PCP - General Family Medicine 08/28/16 09/03/17 documented as of this encounter
--- OUTSIDE RECORDS SUMMARY | 2024-04-08 11:10 | XMS_ITS | Encounter Summary ---
[place] [address] Care Team Providers Care Automobile Seat Cover Installer Name Role Phone Jennie Resendiz MD Primary Care Provider [phone] Reason for Visit * Reason Onset Date Comments Medication Refill 03/20/2015 Encounter Details Date Type Department Care Team (Late st Contact Info) Description 03/20/2015 [place] [phone] Patricia Florence, STRETCH MACHINE OPERATOR Alcoholic cirrhosis of liver without ascites Social [...] liver documented in this encounter Care Teams Automobile Seat Cover Installer Relationship Specialty Start Date End Date Jennie Resendiz MD [address] [place] [address] PCP - General 03/06/10 08/27/16 documented as of this encounter
--- OUTSIDE RECORDS SUMMARY | 2024-04-08 11:10 | XMS_ITS | Encounter Summary ---
[place] [address] Care Team Providers Care Hardscape Foreman Name Role Phone Jennie Resendiz MD Primary Care Provider [phone] Encounter Details Date Type Department Care Team (Late st Contact Info) Description 07/07/2014 Orders [place] [phone] Naomi Omer, RN Cirrhosis of liver without [...] Prothrombin Time 15.3 12.5 - 15.5 sec LILLIE [facility] Comment: Transfusion Committee Guidelines: INR less than 2.0, PTT less than OR equal to 43.5 seconds, or Fibrinogen greater than or equal to 100 mg/dl indicate adequate procoagulant activity for hemostasis in patients without underlying bleeding disorders. International Normalization Ratio 1.1 0.9 - 1.1 CERNER MILLENNIUM Blood specimen (specimen) 07/07/2014 2:25 PM EDT 07/07/2014 2:34 PM EDT Narrative Resulting Agency Comment Spec In Lab Timothy Paul MD HEMATOLOGY ORDERABL ES Performing Organization Address [facility] Co de Phone Number CERNER MILLENNIUM * AFP tumor marker (07/07/2014 2:25 PM EDT) Alpha Fetoprotein 5.1 <=8.3 ng/mL CERNER MILLENNIUM Blood specimen (specimen) 07/07/2014 2:25 PM EDT 07/07/2014 2:34 PM EDT Narrative Resulting Agency Comment Spec In Lab Timothy Paul MD CHEMISTRY ORDERABLE S Performing Organization Address [facility] de Phone Number CERNER MILLENNIUM * (ABNORMAL) Comprehensive metabolic panel (non-fasting) (07/07/2014 2:25 PM EDT) Glucose 96 60 - 199 mg/dL CERNER MILLENNIUM Comment:Diabetes: >=200 mg/d L plus symptoms Blood Urea Nitrogen 11 8 - 18 mg/dL CERNER MILLENNIUM Creatinine 0.77 0.70 - 1.20 mg/dL CERNER MILLENNIUM Comment: Please note that the pediatric reference intervals supplied above were not validated at [facility]. Results from pediatric patients should be interpreted [...] the following links into your internet browser. [email or web address] [email or web address] Blood specimen (specimen) 07/07/2014 2:25 PM EDT 07/07/2014 2:34 PM EDT Narrative Resulting Agency Comment Spec In Lab Timothy Paul MD CHEMISTRY ORDERABLE S LILLIE HUIZ[facility] documented in this encounter Visit Diagnoses Diagnosis Cirrhosis of liver without ascites, unspecified hepatic cirrhosis type documented in this encounter Care Teams Hardscape Foreman Relationship Specialty Start Date End Date Jennie Resendiz MD [address] [place] [address] PCP - General 03/06/10 08/27/16 documented as of this encounter
--- OUTSIDE RECORDS SUMMARY | 2024-04-08 11:10 | XMS_ITS | Encounter Summary ---
Author Organization [facility] [place] [address] Care Team Providers Care Drywall Metal Stud Worker Name Role Phone Jennie Resendiz MD Primary Care Provider [phone] Encounter Details Date Type Department Care Team (Late st Contact Info) Description 09/14/2015 Telephone [place] [phone] Lina Vogel MD [facility] [place] [address] Social History Tobacco Use Types Packs/Day Years [...] on filedocumented in this encounter Care Teams Drywall Metal Stud Worker Relationship Specialty Start Date End Date Jennie Resendiz MD [facility] [address] [place] [address] PCP - General 03/06/10 08/27/16 documented as of this encounter
--- OUTSIDE RECORDS SUMMARY | 2024-04-08 11:10 | XMS_ITS | Encounter Summary ---
Author Organization [facility] [place] [address] Care Team Providers Care Commercial Print Salesman Name Role Phone Malu Sampson APRN Primary Care Provider [phone] Reason for Visit * Reason Comments Follow-up Encounter Details Date Type Department Care Team (Late st Contact Info) Description 09/05/2016 11:00 AM EDT Office [place] [address] Lina Vogel MD [facility] [place] [address] Dysphagia, unspecified type; RUQ pain Social History [...] Lina Vogel - 09/05/2016 11:00 AM EDT [facility] Division of Gastroenterology and Hepatology Outpatient [...] given dysphagia. # portal HTN: Last EGD 2013: Grade I EV on carvedilol # HCC screening: RUQ US [id number], last one 01/11/15 no lesions, schedule # HE: no evidence, but does have constipation, recommending continuing lactulose 1-2 times daily tohave 2-3 BMs daily # Vaccinations: HAV/HBV +/+ - pneumovax q5 years - yearly influenza vaccine Follow up in 6 months with labs and US before. This case was discussed with Dr. Mccain. Lina Vogel MD Fellow [place] [address] P: [phone] F: [phone] CC Malu Sampson, CARBON SETTER [address] , [facility] [address] [place] [address] * Cornelius Mccain MD - 09/05/2016 11:00 [...] The right kidney is normal. ? Carmen J MD Rhiannon Electronically Signed Final Report ?? 10/21/2016 12:04 pm Narrative 10/21/2016 12:05 PM EDT Abdominal ? (Signed Final 10/21/2016 12:04 pm) PATIENT INFO: ID #: ? [id number] ?: ??[birth year] (56 yrs) Name: ? KALLIE DARLING ? Visit Date: 10/21/2016 11:46 am PERFORMED BY: Performed By: ? Neno PABLODC, ??Demetra Attending: ?Rhiannon STOCKTON, Carmen J. Referred By: ?ASHLEY DONNA Location: ? [place] SERVICE(S) PROVIDED: ??UABDLIM - Abdominal Limited Survey Single ? 17227 ??Organ or Quadrant - [id number] INDICATIONS: ??Compensated cirrhosis, assess for HCC ------ [...] 10/21/2016 12:04 pm) PATIENT INFO: ID #: [id number] : 60 (56 yrs) Name: KALLIE DARLING Visit Date: 10/21/2016 11:46 am PERFORMED BY: Performed By: Demetra Lazcano RDMS Attending: Carmen Jurado MD Referred By: ASHLEY THOMPSON Location: [place] SERVICE(S) PROVIDED: UABDLIM - Abdominal Limited Survey Single 70336 Organ or Quadrant - [id number] INDICATIONS: Compensated cirrhosis, assess for HCC ------ [...] quadrant documented in this encounter Care Teams Commercial Print Salesman Relationship Specialty Start Date End Date Malu Sampson APRN PCP - General Family Medicine 08/28/16 09/03/17 documented as of this encounter
--- OUTSIDE RECORDS SUMMARY | 2024-04-08 11:10 | XMS_ITS | Encounter Summary ---
[place] [address] Care Team Providers Care Shoe Stitcher Odd Name Role Phone Jennie Resendiz MD Primary Care Provider [phone] Encounter Details Date Type Department Care Team (Late st Contact Info) Description 03/24/2014 Orders [place] [phone] Shad Garcia MD Renal stones Social History Tobacco Use Types [...] kidney documented in this encounter Care Teams Shoe Stitcher Odd Relationship Specialty Start Date End Date Jennie Resendiz MD [address] [place] [address] PCP - General 03/06/10 08/27/16 documented as of this encounter
--- OUTSIDE RECORDS SUMMARY | 2024-04-08 11:10 | XMS_ITS | Encounter Summary ---
Author Organization [facility] [place] [address] Care Team Providers Care Sealer Aircraft Name Role Phone Jennie Resendiz MD Primary Care Provider Reason for Visit * Reason Comments Follow-up Encounter Details Date Type Department Care Team (Late st Contact Info) Description 07/07/2014 3:00 PM EDT Follow-[place] [phone] CLINIC, Dorcas Benson, [facility] [place] [address] Cirrhosis of liver without ascites, unspecified hepatic [...] encounter Progress Notes * Eze Dorcas A, BUSINESS MAIL ENTRY CLERK - 07/07/2014 3:07 PM EDT Subjective: Patient [...] drinking. She started seeing a counselor in [facility] who is going to help her [...] She will return to clinic in six [facility] with labs and an ultrasound. documented in [...] PM EDT) Alpha Fetoprotein 4.0 <=8.3 ng/mL [facility] Blood specimen (specimen) 01/11/2015 2:07 PM EDT 01/11/2015 2:13 PM EDT Narrative Resulting Agency Comment Spec In Lab Zeferino Paul MD CHEMISTRY ORDERABLE S [facility] * (ABNORMAL) Prothrombin Time (01/11/2015 2:07 PM EDT) Prothrombin Time 15.9(H) 12.0 - 15.0 sec [facility]ILLIE [facility] Comment: Transfusion Committee Guidelines: INR less than [...] Lab Zeferino Paul MD HEMATOLOGY ORDERABL ES CERNER MILLENNI[facility] * (ABNORMAL) Comprehensive metabolic panel (non-fasting) (01/11/2015 [...] the following links into your internet browser. [email or web address] Blood specimen (specimen) 01/11/2015 2:07 PM EDT 01/11/2015 2:13 PM EDT Narrative Resulting Agency Comment Spec In Lab Zeferino Paul MD CHEMISTRY ORDERABLE S LILLIE HUIZAR * US abdomen complete (01/11/2015 1:44 PM EDT) Anatomical Region Laterality Modality Abdomen, Vascular Ultrasound 01/11/2015 1:44 PM EDT Narrative 01/11/2015 1:52 PM EDT Abdominal ?(Signed Final 01/11/2015 01:52 pm) Patient Info ID #: ? [id number] ?: ??60 (54 yrs) Name: ? KALLIE A YOUTH CARE PROFESSIONAL ? Visit Date: 01/11/2015 01:41 pm Performed By Performed By: ? Precious Oliveros RDMS Attending: ?Isiah STOCKTON, Cornelius Harris Referred By: ?ZEFERINO PAUL MD Service(s) Provided ??[facility] - Abdominal Complete Survey - [id number] ? [id number] Indications ??cirrhosis, screen for hcc Comparison US [...] 01/11/2015 01:52 pm) Patient Info ID #: [id number] : 60 (54 yrs) Name: KALLIE SMART Visit Date: 01/11/2015 01:41 pm Performed By Performed By: Precious Oliveros RDMS Attending: Cornelius Joyce MD Referred By: ZEFERINO PAUL MD Service(s) Provided [facility] - Abdominal Complete Survey - [id number] [id number] Indications cirrhosis, screen for hcc Comparison US [...] MD HEMATOLOGY ORDERABL ES Performing Organization Address [facility] Co de Phone Number CERNER MILLENNIUM [...] MD HEMATOLOGY ORDERABL ES Performing Organization Address [facility]/State/ZIP Co de Phone Number CERNER MILLENNIUM * Prothrombin Time (07/07/2014 2:25 PM EDT) Prothrombin Time 15.3 12.5 - 15.5 sec CERNER MILLENNIUM Comment: Transfusion Committee Guidelines: [...] MD HEMATOLOGY ORDERABL ES Performing Organization Address City/[facility]/ZIP Co de Phone Number CERNER AILYNENNIUM * AFP tumor marker (07/07/2014 2:25 PM EDT) Alpha Fetoprotein 5.1 <=8.3 ng/mL CERNER MILLENNIUM Blood specimen (specimen) 07/07/2014 2:25 PM EDT 07/07/2014 2:34 PM EDT Narrative Resulting Agency Comment Spec In Lab Zeferino Paul MD CHEMISTRY ORDERABLE S Performing Organization Address [facility] de Phone Number CERNER MILLENNIUM * [...] the following links into your internet browser. [email or web address] Blood specimen (specimen) 07/07/2014 2:25 PM EDT 07/07/2014 2:34 PM EDT Narrative Resulting Agency Comment Spec In Lab Zeferino Paul MD CHEMISTRY ORDERABLE S LILLIE HUIZAR documented in this encounter Visit Diagnoses Diagnosis Cirrhosis of liver without ascites, unspecified hepatic cirrhosis type Cirrhosis of liver without ascites, unspecified hepatic cirrhosis type documented in this encounter Care Teams Sealer Aircraft Relationship Specialty Start Date End Date Jennie Resendiz MD [address] [place] [address] PCP - General 03/06/10 08/27/16 documented as of this encounter
--- OUTSIDE RECORDS SUMMARY | 2024-04-08 11:10 | XMS_ITS | Encounter Summary ---
Author Organization [facility] Address [facility] [address] Care Team Providers Care Laborer Dairy Farm Name Role Phone Jennie Resendiz MD Primary Care Provider [phone] Encounter Details Date Type Department Care Team (Latest Contact Info) Description 01/11/2015 1:56 PM EDT - 01/11/2015 11:59 PM EDT [place] [phone] Timothy Paul MD [facility] [place] [address] Cirrhosis of liver without ascites, unspecified hepatic [...] MD HEMATOLOGY ORDERABL ES Performing Organization Address City/[facility]/ZIP Co de Phone Number LILLIE MIJARESIUM * AFP tumor marker (01/11/2015 2:07 PM EDT) Alpha Fetoprotein 4.0 <=8.3 ng/mL CERRYLIE MILLENNIUM Blood specimen (specimen) 01/11/2015 2:07 PM EDT 01/11/2015 2:13 PM EDT Narrative Resulting Agency Comment Spec In Lab Timothy Paul MD CHEMISTRY ORDERABLE S [facility] * (ABNORMAL) Prothrombin Time (01/11/2015 2:07 PM [...] supplied above were not validated at [facility]. Results from pediatric patients should [...] the following links into your internet browser. [email or web address] Blood specimen (specimen) 01/11/2015 2:07 PM EDT 01/11/2015 2:13 PM EDT Narrative Resulting Agency Comment Spec In Lab Timothy Paul MD CHEMISTRY ORDERABLE S LILLIE HUIZAR documented in this encounter Visit Diagnoses Diagnosis Cirrhosis of liver without ascites, unspecified hepatic cirrhosis type documented in this encounter Care Teams Laborer Dairy Farm Relationship Specialty Start Date End Date Jennie Resendiz MD [address] [place] [address] PCP - General 03/06/10 08/27/16 documented as of this encounter
--- OUTSIDE RECORDS SUMMARY | 2024-04-08 11:10 | XMS_ITS | Encounter Summary ---
Author [place] [address] Care Team Providers Care Resin Maker Name Role Phone Jennie Resendiz MD Primary Care Provider [phone] Encounter Details Date Type Department Care Team (Latest Contact Info) Description 01/11/2015 1:15 PM EDT - 01/11/2015 1:55 PM EDT Hospital Encounter [place] [address] Cirrhosis of liver without ascites, unspecified hepatic [...] 01:52 pm) Patient Info ID #: ? [id number] ?: ??60 (54 yrs) Name: ? KALLIE SMART ? Visit Date: 01/11/2015 01:41 pm Performed By Performed By: ? Precious Oliveros RDMS Attending: ?Isiah STOCKTON, Cornelius Harris Referred By: ?ZEFERINO ROSALES MD Service(s) Provided ??[facility] - Abdominal Complete Survey - [id number] ? [id number] Indications ??cirrhosis, screen for hcc Comparison US [...] Normal ------ Spleen ------ Size (cm) ?L: ??20. Comment: ?Splenomegaly- severe Right Kidney Size (cm) [...] 01/11/2015 01:52 pm) Patient Info ID #: [id number] : 60 (54 yrs) Name: KALLIE Villalobos OPTOMETRIC TECH Visit Date: 01/11/2015 01:41 pm Performed By Performed By: Precious Oliveros RDMS Attending: Cornelius Joyce MD Referred By: ZEFERINO ROSALES MD Service(s) Provided [facility] - Abdominal Complete Survey - [phone] [id number] Indications cirrhosis, screen for hcc Comparison US [...] type documented in this encounter Care Teams Resin Maker Relationship Specialty Start Date End Date Jennie Resendiz MD [address] [place] [address] PCP - General 03/06/10 08/27/16 documented as of this encounter
--- OUTSIDE RECORDS SUMMARY | 2024-04-08 11:10 | XMS_ITS | Encounter Summary ---
Author Organization [facility] [place] [address] Care Team Providers Care Cancer Program Director Name Role Phone Malu Sampson APRN Primary Care Provider [phone] Reason for Visit * Reason Comments Loss of Vision * Consultation (Routine) - Closed Specialty Diagnoses / Procedures Referred By Nicol sparks Referred To Contact Ophthalmology Diagnoses UNKNOWN VISUAL FIELD DEFECT Primo Wilder MD [address] [place] [address] Mauricio Fairchild MD [facility] [place] [address] Referral ID Status Reason Start Date Expiration Date V isits Requested Visits Authorized [id number] Closed Consult, Test & Treat 04/25/2017 04/25/2018 1 1 Encounter Details Date Type Department Care Team (Late st Contact Info) Description 05/05/2017 12:30 PM EST Office [place] [address] Mauricio Fairchild MD [facility] [place] [address] Visual disturbances; Visual field defects Social History [...] OPHTHALMOLOGY SE RVICES ORDERABLES * OCT OPTIC EWQDY-IM-ELCI EYES (05/09/2017 1:39 PM EST) Anatomical Region [...] unspecified documented in this encounter Care Teams Cancer Program Director Relationship Specialty Start Date End Date Malu Sampson APRN PCP - General Family Medicine 08/28/16 09/03/17 documented as of this encounter
--- OUTSIDE RECORDS SUMMARY | 2024-04-08 11:10 | XMS_ITS | Encounter Summary ---
Author Organization [facility] [place] [address] Care Team Providers Care Silviculture Teacher Name Role Phone Malu Sampson APRN Primary Care Provider [phone] Encounter Details Date Type Department Care Team (Latest Contact Info) Description 07/17/2017 - 07/17/2017 11:59 PM EDT Hospital Encounter Radiology Library at [facility] [place] [phone] Natividad Taveras MD [facility] [place] [address] Discharge Disposition: Home Social History Tobacco Use [...] CT Chest (07/17/2017 12:00 AM EDT) Narrative [facility] - 08/26/2017 5:39 PM EDT This exam is for storage only and is auto-finalizing. L Sulaiman Taveras MD G FILM LIBRARY ORD ERABLES Performing Organization Address City/State/[place] Co de Phone Number [place], [place] documented in this encounter Visit Diagnoses Not on filedocumented in this encounter Care Teams Silviculture Teacher Relationship Specialty Start Date End Date Malu Sampson, RADHA PCP - General Family Medicine 08/28/16 09/03/17 documented as of this encounter
--- OUTSIDE RECORDS SUMMARY | 2024-04-08 11:11 | XMS_ITS | Encounter Summary ---
[place] [address] Care Team Providers Care Human Relations Manager Name Role Phone Jennie Resendiz MD Primary Care Provider [phone] Encounter Details Date Type Department Care Team (Late st Contact Info) Description 02/17/2012 1:00 PM EST - 02/17/2012 2:00 PM EST Surgery [place] [address] Clark Cardenas MD [address] [place] [address] [place] [address] COLONOSCOPY, DIAGNOSTIC (WRVU 3.26) Social History Tobacco [...] - 02/17/2012 1:19 PM EST Please call [phone], before 5pm with problems, questions or concerns, after 5pm call the Hospital at [phone] and ask to speak to the Swimming Pool Maintenance Supervisor continuous pickling line pickler and the eyelet machine operator will contactthat person for you. Discharge [...] * COLONOSCOPY: WHAT TO EXPECT AT HOME ([place]) documented in this encounter Medications at Time [...] * COLONOSCOPY (02/17/2012 12:04 PM EST) COLONOSCOPY [facility] Endoscopy Patient Name: Kallie Darling ? Procedure Date: 02/17/2012 12:04 PM ? N: [id number] ? Date of : 1960 ? Age: 51 ? Order #: [id number] ? Procedure: ? Colonoscopy Indications: ? Screening for colorectal malignant ? neoplasm, Constipation Providers: ? Clark Cardenas MD, Abdulaziz Milton. ? , BRY, Bruna Connelly, Drug And Alcohol Counsellor Referring MD: ?Jennie Resendiz MD Medicines: ? [...] fentaNYL 50mcg/mL injection ONCE PRN, Starting on 02/17/12 at 1236, Until Fri02/17/12 at 1806, Pain, [...] Provider: Abdulaziz Phillips, RN)[phone] (Given - Provider: Adbulaziz Phillips RN) documented in this encounter Care Teams Human Relations Manager Relationship Specialty Start Date End Date Jennie Resendiz MD [address] [place] [address] PCP - General 03/06/10 08/27/16 documented as of this encounter
--- OUTSIDE RECORDS SUMMARY | 2024-04-08 11:11 | XMS_ITS | Encounter Summary ---
Author Organization [facility] [place] [address] Care Team Providers Care Head Of Insight Name Role Phone Jennie Resendiz MD Primary Care Provider [phone] Encounter Details Date Type Department Care Team (Late st Contact Info) Description 12/08/2012 Telephone [place] [address] Vincenzo Rhodes MD [facility] [place] [address] Social History Tobacco Use Types Packs/Day Years [...] on filedocumented in this encounter Care Teams Head Of Insight Relationship Specialty Start Date End Date Jennie Resendiz MD [facility] [address] [place] [address] PCP - General 03/06/10 08/27/16 documented as of this encounter
--- OUTSIDE RECORDS SUMMARY | 2024-04-08 11:11 | XMS_ITS | Encounter Summary ---
[place] [address] Care Team Providers Care Maintenance Supervisor Electrical Name Role Phone Jennie Resendiz MD Primary Care Provider [phone] Encounter Details Date Type Department Care Team (Late st Contact Info) Description 10/20/2012 9:30 AM EDT [place] [address] Sofia Davis APRN Chest pain (Primary Dx); Cirrhosis of liver [...] 4. Call urology to reschedule your appt. [phone] 5. Continue with Coreg 6.25 mg one [...] year old white female seen today at [facility] in consultation for hepatosplenomegaly on [...] drinking. She started seeing a counselor in [facility] who is going to help her [...] examined duodenum. Recommendation: Follow-up in clinic with [facility]. Abdominal Ultrasound 09/18/12: Impression Ultrasound - Abdomen [...] PM EST) Alpha Fetoprotein 4.6 <=8.3 ng/mL [facility] Blood specimen (specimen) 05/06/2013 12:32 PM EST 05/06/2013 12:44 PM EST Narrative Resulting Agency Comment Spec In Lab Timothy Paul MD CHEMISTRY ORDERABLE S Performing Organization Address [facility] de Phone Number [facility] * Prothrombin Time (05/06/2013 12:32 PM EST) Pathologist [facility] Prothrombin Time 14.8 12.0 - 15.0 sec CERNER MILLENNIUM Comment: [facility] Transfusion Committee Guidelines: INR less than 2.0, PTT less than OR equal to 43.5 seconds, or Fibrinogen greater than or equal to 100 mg/dl indicate adequate procoagulant activity for hemostasis in patients without underlying bleeding disorders. International Normalization Ratio 1.1 0.9 - 1.1 [facility] MILLENNIUM Blood specimen (specimen) 05/06/2013 12:32 PM EST 05/06/2013 12:44 PM EST Narrative Resulting Agency Comment Spec In Lab Timothy Paul MD HEMATOLOGY ORDERABL ES Performing Organization Address [facility] Phone Number [facility] * (ABNORMAL) Comprehensive metabolic panel (non-fasting) (05/06/2013 12:32 PM EST) Pathologist [facility] Glucose 107 60 - 199 mg/dL [facility] Comment:Diabetes: >=200 mg/d L plus symptoms Blood Urea Nitrogen 11 8 - 18 mg/dL CERNER MILLENNIUM Creatinine 0.75 0.70 - 1.20 mg/dL CERNER MILLENNIUM Comment: Please note that the pediatric reference intervals supplied above were not validated at [facility]. Results from pediatric patients should be interpreted [...] MD CHEMISTRY ORDERABLE S CERNER MILLENNIUM * US abdomen complete with vascular (05/06/2013 11:28 AM EST) Anatomical Region Laterality Modality Abdomen Ultrasound 05/06/2013 11:2 8 AM EST Narrative 05/06/2013 12:42 PM EST ?Abdominal Duplex ? (Signed Final 05/06/2013 12:41 pm) Patient Info ID: ? [id number] ? : ??60 (52 yrs) Name: ? KALLIE DARLING ?Visit Date: 05/06/2013 11:19 am Performed By Performed By: ?Violetta Vaughan RDMS Attending: ? Gisella STOCKTON, Renu Gordillo Referred By: ? SOFIA DAVIS APRN Service(s) Provided UABDCVASC - Abdominal Complete Survey with ?12193, 38944 Vascular - [id number], [id number] Indications cirrhosis, HCC surveillance Comparison Abdominal ultrasound [...] Final 05/06/2013 12:41 pm) Patient Info ID: [id number] : 60 (52 yrs) Name: KALLIE DARLING Visit Date: 05/06/2013 11:19 am Performed By Performed By: Violetta Vaughan RDMS Attending: Renu Obando MD Referred By: SOFIA DAVIS APRN Service(s) Provided UABDCVASC - Abdominal Complete Survey with 85968, 49176 Vascular - [id number], [id number] Indications cirrhosis, HCC surveillance Comparison Abdominal ultrasound [...] (Bezet) 429 ms MUSE SYSTEM Calculated P [place] 38 degrees MUSE SYSTEM Calculated R [place] 7 degrees MUSE SYSTEM Calculated T [place] 27 degrees MUSE SYSTEM INTERPRETATION Normal sinus [...] alcohol documented in this encounter Care Teams Maintenance Supervisor Electrical Relationship Specialty Start Date End Date Jennie Resendiz MD [address] [place] [address] PCP - General 03/06/10 08/27/16 documented as of this encounter
--- OUTSIDE RECORDS SUMMARY | 2024-04-08 11:11 | XMS_ITS | Encounter Summary ---
[place] [address] Care Team Providers Care Dance Critic Name Role Phone Jennie Resendiz MD Primary Care Provider [phone] Encounter Details Date Type Department Care Team (Latest Contact Info) Description 05/06/2013 9:08 AM EST - 05/06/2013 11:59 PM [facility] Hospital [place] [address] Cirrhosis of liver Social History Tobacco Use [...] 05/06/2013 12:41 pm) Patient Info ID: ? [id number] ? : ??60 (52 yrs) Name: ? KALLIE SMART ?Visit Date: 05/06/2013 11:19 am Performed By Performed By: ?Violetta Vaughan RDMS Attending: ? Gisella STOCKTON, Renu Gordillo Referred By: ? SOFIA DAVIS ASSEMBLER UNIT Service(s) Provided UABDCVASC - Abdominal Complete Survey with ?85092, 81230 Vascular - [id number], [id number] Indications cirrhosis, HCC surveillance Comparison Abdominal ultrasound [...] Final 05/06/2013 12:41 pm) Patient Info ID: [id number] : 60 (52 yrs) Name: KALLIE SMART Visit Date: 05/06/2013 11:19 am Performed By Performed By: Violetta Vaughan RDMS Attending: Renu Obando MD Referred By: SOFIA DAVIS APRN Service(s) Provided UABDCVASC - Abdominal Complete Survey with 76637, 23254 Vascular - [id number], [id number] Indications cirrhosis, HCC surveillance Comparison Abdominal ultrasound [...] 05/06/2013 12:41 pm Timothy Paul MD IMG GEN ORDERABL ES documented in this encounter Visit Diagnoses Diagnosis Cirrhosis of liver Cirrhosis of liver without mention of alcohol documented in this encounter Care Teams Dance Critic Relationship Specialty Start Date End Date Jennie Resendiz MD [address] [place] [address] PCP - General 03/06/10 08/27/16 documented as of this encounter
--- OUTSIDE RECORDS SUMMARY | 2024-04-08 11:11 | XMS_ITS | Encounter Summary ---
[place] [address] Care Team Providers Care Vb Developer Name Role Phone Jennie Resendiz MD Primary Care Provider [phone] Encounter Details Date Type Department Care Team (Latest Contact Info) Description 10/20/2012 10:29 AM EDT - 10/20/2012 11:59 PM EDT Hospital Encounter [place] [address] CLINIC, DR GALO Discharge Disposition: [...] on filedocumented in this encounter Care Teams Vb Developer Relationship Specialty Start Date End Date Jennie Resendiz MD [facility] [address] [place] [address] PCP - General 03/06/10 08/27/16 documented as of this encounter
--- OUTSIDE RECORDS SUMMARY | 2024-04-08 11:11 | XMS_ITS | Encounter Summary ---
[place] [address] Care Team Providers Care Counter Pocket Sewer Name Role Phone Jennie Resendiz MD Primary Care Provider [phone] Encounter Details Date Type Department Care Team (Late st Contact Info) Description 12/01/2013 Orders [place] [phone] Lupe Odom, BYR Social History Tobacco Use Types Packs/Day Years [...] on filedocumented in this encounter Care Teams Counter Pocket Sewer Relationship Specialty Start Date End Date Jennie Resendiz MD [address] [place], [place] [id number] PCP - General 03/06/10 08/27/16 documented as of this encounter
--- OUTSIDE RECORDS SUMMARY | 2024-04-08 11:11 | XMS_ITS | Encounter Summary ---
[place] [address] Care Team Providers Care Gre Instructor Name Role Phone Jennie Resendiz MD Primary Care Provider [phone] Reason for Visit * Reason Comments Follow-up Encounter Details Date Type Department Care Team (Late st Contact Info) Description 02/17/2012 3:00 PM EST [place] [phone] Leisa Woodard APRN Cirrhosis; Hematuria Discharge Disposition: Home Social History [...] this encounter Progress Notes * Leisa Woodard, ELECTRICAL MAINTENANCE WORKER - 02/17/2012 4:02 PM EST Subjective: Patient ID: Kallie Darling is a 51 y.o. female. HPI Initial Visit 01/24/12: Ms. Darling is a 51 year old white female seen today at [facility] in consultation for hepatosplenomegaly on [...] unspecified documented in this encounter Care Teams Gre Instructor Relationship Specialty Start Date End Date Jennie Resendiz MD [address] [place] [address] PCP - General 03/06/10 08/27/16 documented as of this encounter
--- OUTSIDE RECORDS SUMMARY | 2024-04-08 11:11 | XMS_ITS | Encounter Summary ---
[place] [address] Care Team Providers Care Molded Goods Controls Operator Name Role Phone Jennie Resendiz MD Primary Care Provider [phone] Encounter Details Date Type Department Care Team (Late st Contact Info) Description 12/01/2012 9:00 AM EDT - 12/01/2012 10:59 AM EDT Hospital En[place] [address] Social History Tobacco Use Types [...] on filedocumented in this encounter Care Teams Molded Goods Controls Operator Relationship Specialty Start Date End Date Jennie Resendiz MD [address] [place] [address] PCP - General 03/06/10 08/27/16 documented as of this encounter
--- OUTSIDE RECORDS SUMMARY | 2024-04-08 11:11 | XMS_ITS | Encounter Summary ---
Author Organization [facility] [place] [address] Care Team Providers Care Small Animal Veterinarian Name Role Phone Jennie Resendiz MD Primary Care Provider [phone] Encounter Details Date Type Department Care Team (Late st Contact Info) Description 2012 3:15 PM EDT - 2012 4:15 PM EDT [place] [phone] Natividad Taveras MD [facility] [place] [address] COLONOSCOPY, DIAGNOSTIC (WRVU 3.26) Social History Tobacco [...] you need to be checked. Friday-Friday Clinic [phone] 8a-5p Same Day Endo [phone] 7a-8p Otherwise contact [phone] and ask to speak to the chief operator reformer information systems security officer Follow up care is a oconnell part [...] 9:50 PM EDT * Op Note - Nativdiad Taveras MD - 2012 5:33 PM EDT [facility] Operative Note Patient Name: Kallie Darling : [id number] MR#: [id number] Case Date: 2012 Surgeon: Surgeon(s) and Role: [...] UPPER GI ENDOSCOPY (2012 3:10 PM EDT) UPPER GI ENDOSCOPY [facility] Endoscopy Patient Name: Kallie Darling ? Procedure Date: 2012 3:10 PM ? Date of : 1960 ? Age: 52 ? Order #: [id number] ? Procedure: ? Upper GI endoscopy Indications: ? Cirrhosis rule out esophageal varices Providers: ? L. Sulaiman Taveras MD, Mell Mixon, ? RN, Anita Conroy, Hydrogenation Still Operator Referring MD: ?Jennie Resendiz MD, Leisa Sher ? Pollis, BAG END SEWER Medicines: ? Midazolam 4 mg IV, Fentanyl [...] * COLONOSCOPY (2012 3:10 PM EDT) COLONOSCOPY [facility] Endoscopy Patient Name: Kallie Darling ? Procedure Date: 2012 3:10 PM ? Date of : 1960 ? Age: 52 ? Order #: [id number] ? Procedure: ? Colonoscopy Indications: ? Screening for colorectal malignant ? neoplasm Providers: ? L. Sulaiman Taveras MD, Mell Mixon, ? RN, Anita Conroy, Hydrogenation Still Operator Referring : ?Jennie Resendiz MD, Leisa Sher ? Pollis, BAG END SEWER Medicines: ? Fentanyl 100 micrograms IV, Midazolam [...] RN) documented in this encounter Care Teams Small Animal Veterinarian Relationship Specialty Start Date End Date Jennie Resendiz MD [address] [place] [address] PCP - General 03/06/10 08/27/16 documented as of this encounter
--- OUTSIDE RECORDS SUMMARY | 2024-04-08 11:11 | XMS_ITS | Encounter Summary ---
[place] [address] Care Team Providers Care Aircraft Structural Fitter Name Role Phone Jennie Resendiz MD Primary Care Provider [phone] Reason for Visit * Reason Comments Follow-up Encounter Details Date Type Department Care Team (Late st Contact Info) Description 11/23/2013 3:00 PM EDT Follow-[place] [phone] CLINIC, Sofia Roque APRN Cirrhosis of liver (Primary Dx); Screening for [...] this encounter Progress Notes * Sofia Woodard, AGRICULTURAL ECONOMICS PROFESSOR - 11/23/2013 3:19 PM EDT Subjective: Patient [...] year old white female seen today at [facility] in consultation [...] drinking. She started seeing a counselor in [facility] who is going to help her [...] in clinic with Ms. Hollingsworthtu. Abdominal Ultrasound 11/23/13: Impression Ultrasound - Abdomen [...] 04:09 pm) Patient Info ID #: ? [id number] ? : 60 (53 yrs) Name: ? KALLIE Villalobos ?Visit Date:07/07/2014 01:53 pm Performed By Performed By: ?Yumi Toscano RDMS Attending: ? Rhiannon STOCKTON, Carmen JAmrik Referred By: ? SOFIA WOODARD APRN Service(s) Provided ??UABDCVASC - Abdominal Complete Survey with Vascular - 70421, 94711 ??[id number], [id number] Indications ??cirrhosis, HCC surveillance, portal HTN surveillance [...] ?Patent Vein: Portal Vein At ?28.0 ?Hepatopetal [place]: Main Portal ? 22.0 ?Hepatopetal Vein: Right Portal ?12.0 ?Hepatopetal Vein: Left Portal Vein: 16.0 ?Hepatopetal Splenic Vein At ?? 30.0 ?Hepatopetal [place]: IVC: ?Patent Collaterals: ??Recanalized periumbilical vein Comment: [...] 07/07/2014 04:09 pm) Patient Info ID #: [id number] : 60 (53 yrs) Name: KALLIE SMART Visit Date:07/07/2014 01:53 pm Performed By Performed By: Yumi Toscano RDMS Attending: Carmen Jurado MD Referred By: SOFIA WOODARD APRN Service(s) Provided UABDCVASC - Abdominal Complete Survey with Vascular - 99081, 11589 [id number], [id number] Indications cirrhosis, HCC surveillance, portal HTN surveillance [...] Patent Vein: Portal Vein At 28.0 Hepatopetal [place]: Main Portal 22.0 Hepatopetal Vein: Right Portal 12.0 Hepatopetal Vein: Left Portal Vein: 16.0 Hepatopetal Splenic Vein At 30.0 Hepatopetal [place]: IVC: Patent Collaterals: Recanalized periumbilical vein Comment: [...] MD HEMATOLOGY ORDERABL ES Performing Organization Address [facility] Co de Phone Number CERNER MILLENNIUM * (ABNORMAL) Hemogram (11/23/2013 2:14 [...] HEMATOLOGY ORDERABL ES Performing Organization Address City/[facility]/ZIP Co de Phone Number CERNER MILLENNIUM * AFP tumor marker (11/23/2013 2:14 PM EDT) Alpha Fetoprotein 4.8 <=8.3 ng/mL CERNER MILLENNIUM Blood specimen (specimen) 11/23/2013 2:14 PM EDT 11/23/2013 2:20 PM EDT Narrative Resulting Agency Comment Spec In Lab Timothy Paul MD CHEMISTRY ORDERABLE S Performing Organization Address [facility] de Phone Number LILLIE HUIZAR * Prothrombin Time (11/23/2013 2:14 PM EDT) Prothrombin Time 15.1 12.5 - 15.5 sec CERNER MILLENNIUM Comment: [facility] Transfusion Committee Guidelines: INR less than 2.0, PTT less than OR equal to 43.5 seconds, or Fibrinogen greater than or equal to 100 mg/dl indicate adequate procoagulant activity for hemostasis in patients without underlying bleeding disorders. International Normalization Ratio 1.1 0.9 - 1.1 CERNER MILLENNIUM Blood specimen (specimen) 11/23/2013 2:14 PM EDT 11/23/2013 2:20 PM EDT Narrative Resulting Agency Comment Spec In Lab Timothy Paul MD HEMATOLOGY ORDERABL ES Performing Organization Address [facility] de Phone Number LILLIE HUIZAR * (ABNORMAL) Comprehensive metabolic panel (non-fasting) (11/23/2013 2:14 PM EDT) Glucose 100 60 - 199 mg/dL CERNER MILLENNIUM Comment:Diabetes: >=200 mg/d L plus symptoms Blood Urea Nitrogen 8 8 - 18 mg/dL CERNER MILLENNIUM Creatinine 0.73 0.70 - 1.20 mg/dL CERNER MILLENNIUM Comment: Please note that the pediatric reference intervals supplied above were not validated at [facility]. Results from pediatric patients [...] the following links into your internet browser. [email or web address] Blood specimen (specimen) 11/23/2013 2:14 PM EDT 11/23/2013 2:20 PM EDT Narrative Resulting Agency Comment Spec In Lab Timothy Pual MD CHEMISTRY ORDERABLE S CERNER MILLENNIUM * Zinc (11/23/2013 2:14 PM EDT) Zinc 0.70 0.66 - 1.10 mcg/mL CERNER MILLENNIUM Comment: Test Performed by: [address] [address] Credit Collection Specialist: Kevin Blackburn III, M.D. Blood specimen (specimen) 11/23/2013 2:14 PM EDT 11/23/2013 3:09 PM EDT Narrative Resulting Agency Comment Spec In Lab Timothy Paul MD LAB SEND OUT PRASHANTA OSWALDO LILLIE HUIZAR documented in this encounter Visit Diagnoses Diagnosis Cirrhosis of liver- Primary Cirrhosis of liver without mention of alcohol Screening for colon cancer Special screening for malignant neoplasms, colon Cirrhosis of liver Cirrhosis of liver without mention of alcohol documented in this encounter Care Teams Aircraft Structural Fitter Relationship Specialty Start Date End Date Jennie Resendiz MD [address] [place] [address] PCP - General 03/06/10 08/27/16 documented as of this encounter
--- OUTSIDE RECORDS SUMMARY | 2024-04-08 11:11 | XMS_ITS | Encounter Summary ---
Author Organization [facility] [address] Care Team Providers Care Infantry Operations Specialist Name Role Phone Jennie Resendiz MD Primary Care Provider [phone] Encounter Details Date Type Department Care Team (Latest Contact Info) Description 12/01/2012 8:27 AM EDT - 12/01/2012 11:59 PM EDT Hospital Encounter XRay at [address] [place] [address] CLINIC, Vincenzo Escobar MD [facility] [place] [address] Samir Fuentes MD [facility] [place] [address] Hyperparathyroidism Discharge Disposition: Home Social History Tobacco [...] BMD measurements and plots are available in E-DH under the imaging tab. Paper copies will be sent to providers without [employer] access. If you have received this report without the data sheet and do not have access to ESnapNames, please contact Radiology Sr. Logistics Analyst at [phone] Friday thru Friday 8am-4pm. Procedure Note Sherice [...] not haveaccess to E-DH, please contact Radiology Sr. Logistics Analyst at [phone] Fridaythru Friday 8am-4pm. Samir Fuentes MD IMG DEXA ORDERABL ES documented in this encounter Visit Diagnoses Diagnosis Hyperparathyroidism Hyperparathyroidism, unspecified documented in this encounter Care Teams Infantry Operations Specialist Relationship Specialty Start Date End Date Jennie Resendiz MD [address] [place] [address] PCP - General 03/06/10 08/27/16 documented as of this encounter
--- OUTSIDE RECORDS SUMMARY | 2024-04-08 11:11 | XMS_ITS | Encounter Summary ---
[facility] [place] [address] Care Team Providers Care Satellite Project Site Monitor Name Role Phone Jennie Resendiz MD Primary Care Provider [phone] Encounter Details Date Type Department Care Team (Latest Contact Info) Description 2012 11:46 AM EDT - 2012 6:53 PM EDT Hospital Encounter [place] [address] Natividad Taveras MD [facility] [place] [address] Discharge Disposition: Home Social History Tobacco Use [...] you need to be checked. Friday-Friday Clinic [phone] 8a-5p Same Day Endo [phone] 7a-8p Otherwise contact [phone] and ask to speak to the test analyst astronautical engineer Follow up care is a oconnell part [...] Taveras MD - 2012 5:33 PM EDT [facility] Operative Note Patient Name: Kallie Darling : [id number] MR#: [id number] Case Date: 2012 Surgeon: Surgeon(s) and Role: [...] (2012 3:10 PM EDT) UPPER GI ENDOSCOPY [facility] Endoscopy Patient Name: Kallie Darling ? Procedure Date: 2012 3:10 PM ? Date of : 1960 ? Age: 52 ? Order #: [id number] ? Procedure: ? Upper GI endoscopy Indications: ? Cirrhosis rule out esophageal varices Providers: ? L. Sulaiman Taveras MD, Mell Mixon, ? RN, Anita Conroy, Program Production Specialist Referring MD: ?Jennie Resendiz MD, Leisa Sher ? Pollis, PRIVACY COMPLIANCE MANAGER Medicines: ? Midazolam 4 mg IV, [...] * COLONOSCOPY (2012 3:10 PM EDT) COLONOSCOPY [facility] Endoscopy Patient Name: Kallie Darling ? Procedure Date: 2012 3:10 PM ? Date of : 1960 ? Age: 52 ? Order #: [id number] ? Procedure: ? Colonoscopy Indications: ? Screening for colorectal malignant ? neoplasm Providers: ? Sana Taveras MD, Mell Mixon, ? RN, Anita Conroy, Program Production Specialist Referring : ?Jennie Resendiz MD, Leisa Sher ? Pollis, PRIVACY COMPLIANCE MANAGER Medicines: ? Fentanyl 100 micrograms IV, [...] on Fri08/21/12 at 1540, Until Fri08/21/12 at 2053, Sleep, Intra-Operative (Intra-Procedure), Routine 1540 (Given - Provid er: Mell Mixon RN)1553 (Given - Provider: Mell Mixon RN)1604 (Given - Provider: Mell Mixon RN)1608 (Given - Provider: Mell Mixon RN)1620 (Given - Provider: Mell Mixon RN) documented in this encounter Care Teams Satellite Project Site Monitor Relationship Specialty Start Date End Date Jennie Resendiz MD [address] [place] [address] PCP - General 03/06/10 08/27/16 documented as of this encounter
--- OUTSIDE RECORDS SUMMARY | 2024-04-08 11:11 | XMS_ITS | Encounter Summary ---
[place] [address] Care Team Providers Care Renal Dietitian Name Role Phone Jennie Resendiz MD Primary Care Provider [phone] Encounter Details Date Type Department Care Team (Late st Contact Info) Description 02/28/2012 2:35 PM EST [place] [phone] Shad Garcia MD Hematuria (Primary Dx) Discharge Disposition: Home Social [...] unspecified documented in this encounter Care Teams Renal Dietitian Relationship Specialty Start Date End Date Jennie Resendiz MD [address] [facility] [place] [address] PCP - General 03/06/10 08/27/16 documented as of this encounter
--- OUTSIDE RECORDS SUMMARY | 2024-04-08 11:11 | XMS_ITS | Encounter Summary ---
[place] [address] Care Team Providers Care Telephone Supervisor Name Role Phone Jennie Resendiz MD Primary Care Provider Encounter Details Date Type Department Care Team (Late st Contact Info) Description 02/28/2012 2:44 PM EST - 02/28/2012 11:59 PM EST Hospital Encounter [place] [address] Hematuria Social History Tobacco Use Types Packs/Day [...] 02/28/2012 03:32 pm) Patient Info ID: ? [id number] ? : [birth year] (51 yrs) Name: ? KALLIE SMART ?Visit Date: 02/28/2012 03:20 pm Performed By Performed By: ?Miladis Leslie RDMS Associate: ? Ant STOCKTON, Esha Attending: ? Matthew Nolasco MD. Referred By: ? SMITH NUNEZ MD Service(s) Provided URETRO - Retroperitoneal Complete - [id number] ? [id number] Indications Hematuria Comparison None Right Kidney Size [...] Final 02/28/2012 03:32 pm) Patient Info ID: [id number] : 60 (51 yrs) Name: KALLIE SMART Visit Date: 02/28/2012 03:20 pm Performed By Performed By: Miladis Leslie [facility] Associate: Ant STOCKTON [facility] Attending: Matthew Nolasco MD Referred By: SMITH NUNEZ MD Service(s) Provided URETRO - Retroperitoneal Complete - [id number] Indications Hematuria Comparison None Right Kidney Size [...] unspecified documented in this encounter Care Teams Telephone Supervisor Relationship Specialty Start Date End Date Jennie Resendiz MD [address] [place] [address] [facility] [address] [place] [address] PCP - General 03/06/10 08/27/16 documented as of this encounter
--- OUTSIDE RECORDS SUMMARY | 2024-04-08 11:11 | XMS_ITS | Encounter Summary ---
[place] [address] Care Team Providers Care Sponge Clipper Name Role Phone Jennie Resendiz MD Primary Care Provider [phone] Encounter Details Date Type Department Care Team (Late st Contact Info) Description 03/11/2012 [place] [phone] Cristina Dow, RN Social History Tobacco Use [...] She will go to the ED at [facility] and call us tomorrow with an update documented in this encounter Plan of Treatment Not on file documented as of this encounter Visit Diagnoses Not on filedocumented in this encounter Care Teams Sponge Clipper Relationship Specialty Start Date End Date Jennie Resendiz MD [address] [place] [address] PCP - General 03/06/10 08/27/16 documented as of this encounter
--- OUTSIDE RECORDS SUMMARY | 2024-04-08 11:11 | XMS_ITS | Encounter Summary ---
[place] [address] Care Team Providers Care Ballast Cleaning Machine Operator Name Role Phone Jennie Resendiz MD Primary Care Provider [phone] Reason for Visit * Reason Comments Follow-up Encounter Details Date Type Department Care Team (Late st Contact Info) Description 09/18/2012 10:00 AM EDT [place] [id number] CLINIC, Leisa Roque APRN Cirrhosis of liver (Primary Dx) Discharge Disposition: [...] or Tums as needed. These are both [id number] 4. Take Coreg twice daily with food. [...] 3. Colonoscopy - 08/21/12. Poor prep. Repeat 2014 4. HCC surveillance - Ultrasound 09/18/12, no liver masses. AFP 09/18/12 pending. Initial Visit 01/24/12: Ms. Darling is a 51 year old white female seen today at [facility] in consultation for hepatosplenomegaly on [...] 0.05 x10(3)/mcL CERNER MILLENNIUM Blood specimen (specimen) 09/18/2012 11:12 AM EDT 09/18/2012 11:17 AM EDT Timothy Paul MD HEMATOLOGY ORDERABL ES [facility] AILYNENNIUM * AFP tumor marker (09/18/2012 11:12 AM EDT) Pathologist [facility] Alpha Fetoprotein 2 <=5 ng/mL CERNER MILLENNIUM Comment: Note new Reference Range as of 12-23-2011. Reference: Immulite 2000 AFP package insert ([id number], 2009-01-05) Blood specimen (specimen) 09/18/2012 11:12 AM EDT 09/18/2012 2:15 PM EDT Narrative Resulting Agency Comment Spec In Lab Timothy Paul MD CHEMISTRY ORDERABLE S Performing Organization Address [facility] Co de Phone Number [facility] * Prothrombin Time (09/18/2012 11:12 AM EDT) Prothrombin Time 14.3 12.0 - 15.0 sec [facility] Comment: [facility] Transfusion Committee Guidelines: INR less than 2.0, PTT less than OR equal to 43.5 seconds, or Fibrinogen greater than or equal to 100 mg/dl indicate adequate procoagulant activity for hemostasis in patients without underlying bleeding disorders. International Normalization Ratio 1.1 0.9 - 1.1 [facility]INT [facility] INCLUDES THE [facility] Blood specimen (specimen) 09/18/2012 11:12 AM EDT 09/18/2012 11:17 AM EDT Narrative Resulting Agency Comment Spec In Lab Timothy Paul MD HEMATOLOGY ORDERABL ES Performing Organization Address [facility] Phone Number [facility] MIJARESCOUNT INCLUDES THE [facility] * (ABNORMAL) Comprehensive metabolic panel (non-fasting) (09/18/2012 11:12 AM EDT) Glucose 120 60 - 199 mg/dL [facility]EN[facility] Comment:Diabetes: >=200 mg/d L plus symptoms Blood Urea Nitrogen 11 8 - 18 mg/dL [facility] MILLENNIUM Creatinine 0.67(L) 0.70 - 1.20 mg/dL [facility] MILLENNIUM Comment: Please note that the pediatric reference intervals supplied above were not validated at [facility]. Results from pediatric patients should be interpreted in conjunction to the patient's age, height and muscle mass. Sodium 138 135 - 145 mmol/L [facility] MILLENNIUM Potassium 4.3 3.5 - 5.0 mmol/L [facility] Comment: Please note: ??Patients with WBC >100,000 [...] Lab Timothy Paul MD CHEMISTRY ORDERABLE S [facility] * (ABNORMAL) CBC (with Diff) (09/18/2012 11:12 AM EDT) White Blood Cell 7.0 4.0 - 10.0 x10(3)/mc L [facility] Red Blood Cell 4.56 3.93 - 5.22 x10(6)/mc L [facility] Hemoglobin 13.8 11.2 - 15.7 gm/dL [facility] Hematocrit 41.0 34.0 - 45.0 % [facility] MILLENNIUM Mean Cell Volume 89.9 79.0 - 94.0 fL [facility] MILLENNIUM Mean Cell Hemoglobin 30.3 26.6 - 32.2 pg [facility] Mean Cell Hemoglobin Concentration 33.7 32.0 - 36.5 gm/dL [facility] Platelet 133(L) 145 - 370 x10(3)/mc L [facility] MILLENNIUM RDW Standard Deviation 46.0 35.0 - 46.0 fL [facility] MILLENNIUM RDW coefficient of variation 14.1 10.9 - 14.4 % [facility] MILLENNIUM Mean Platelet Volume 9.5 9.0 - 12.0 fL [facility] MILLENNIUM Blood specimen (specimen) 09/18/2012 11:12 AM EDT 09/18/2012 11:17 AM EDT Narrative Resulting Agency Comment Spec In Lab Timothy Paul MD HEMATOLOGY ORDERABL ES [facility] * Hemoglobin A1c (09/18/2012 11:12 AM EDT) Pathologist [facility] Hemoglobin A1c 5.6 4.3 - 6.1 % [facility] Comment: The [place] Diabetes Association (ADA) has stated that HbA1c [...] 2013:36;suppl 1:S11-S66. Estimated Average Glucose 114 mg/dL [facility] Comment: eAG equivalents for HbA1c percentages: HbA1c(%) [...] into estimated average glucose values. ??Diabetes Care 2008:31(8):1241-0590. Blood specimen (specimen) 09/18/2012 11:12 AM EDT 09/18/2012 11:17 AM EDT Narrative Resulting Agency Comment Spec In Lab Timothy Paul MD CHEMISTRY ORDERABLE S [facility] * (ABNORMAL) Lipid panel (fasting) (09/18/2012 11:12 AM EDT) Cholesterol, Total 239(H) <=199 mg/dL [facility] Comment: Recommendations of the NCEP Adult Treatment Panel for the following risk cutoff thresholds for the [place] population: Desirable: <200 mg/dL Borderline High: 200-239 mg/dL High: > or = 240 mg/dL Triglyceride 272(H) <=149 mg/dL [facility] MILLENNIUM Comment: Reference Range: Normal triglycerides: ??<150 mg/dL Borderline high: ??150-199 mg/dL High: ??200-499 mg/dL Very high: ??>oy=407 mg/dL YAMILEX 2001; 285(19):1586-2156 HDL Cholesterol 33(L) >=40 mg/dL [facility] N[facility] MILLENNIUM Comment: Reference range: ??Low HDL: ?? < 40 mg/dL ??Normal: ?40-60 mg/dL ??Desirable: > 60 mg/dL YAMILEX 2001; 285(19):1324-6303 LDL Cholesterol 152(H) <=99 mg/dL [facility] MILLENNIUM Comment: Reference range: ?? Optimal: ?<100 mg/dL ?? Near Optimal/Above Optimal: ?? 100-129 mg/dL ?? Borderline high: ?130-159 mg/dL ?? High: ? 160-189 mg/dL ?? Very high: ?>nm=448 mg/dL YAMILEX 2001: 285(19):1133-7032 Cholesterol/HDL Ratio 7.2 ratio [facility]EN[facility] Comment: A Cholesterol to HDL ratio below 4:1 is desirable. ??Studies suggest that increased CAD risk occurs at ratios above 5 for females and above 6 for men. ? [place] Heart Association ??(http://www.americanheart.org) ? Sherry Int Med, 1994; 121:641 ? AM J Med, 1998; 105(1A):48S Blood specimen (specimen) 09/18/2012 11:12 AM EDT 09/18/2012 11:17 AM EDT Narrative Resulting Agency Comment Spec In Lab Timothy Paul MD CHEMISTRY ORDERABLE S [facility] AILYNAVEN[facility]EDEL[facility] * TSH (09/18/2012 11:12 AM EDT) Thyroid Stimulating Hormone 2.33 0.27 - 4.20 mcIU/mL [facility] HUIZAR Blood specimen (specimen) 09/18/2012 11:12 AM EDT 09/18/2012 11:17 AM EDT Narrative Resulting Agency Comment Spec In Lab Timothy Paul MD CHEMISTRY ORDERABLE S Performing Organization Address [facility] Co de Phone Number [facility] * Hepatitis B Surface Antibody (09/18/2012 11:12 AM EDT) Hepatitis B Surface Antibody Positive [facility] Comment: Expected Results: Vaccinated: Positive Unvaccinated: Negative [...] MD CHEMISTRY ORDERABLE S Performing Organization Address [facility] Co de Phone Number [facility] * (ABNORMAL) Hepatitis A Antibody, Total (09/18/2012 11:12 AM EDT) Hepatitis A ANTIBODY, TOTAL Positive(A ) Negative [facility] Blood specimen (specimen) 09/18/2012 11:12 AM EDT 09/18/2012 11:17 AM EDT Narrative Resulting Agency Comment Spec In Lab Timothy Paul MD CHEMISTRY ORDERABLE S Performing Organization Address [facility] Co de Phone Number [facility] documented in this encounter Visit Diagnoses Diagnosis Cirrhosis of liver- Primary Cirrhosis of liver without mention of alcohol documented in this encounter Care Teams Ballast Cleaning Machine Operator Relationship Specialty Start Date End Date Jennie Resendiz MD [address] [place] [address] PCP - General 03/06/10 08/27/16 documented as of this encounter
--- OUTSIDE RECORDS SUMMARY | 2024-04-08 11:11 | XMS_ITS | Encounter Summary ---
[place] [address] Care Team Providers Care Lifestyle Block Farmer Name Role Phone Jennie Resendiz MD Primary Care Provider [phone] Encounter Details Date Type Department Care Team (Late st Contact Info) Description 09/08/2013 Telephone [place] [phone] Libia Arguello Social History Tobacco Use Types [...] EDT LETTER MAILED 08/25/2013 01:41PM [facility] 09/02/2013 05:30PM KIMBERLY FINAL LETTER 09/08/2013 10:48AM KIMBERLY documented in this encounter Plan of Treatment Not on file documented as of this encounter Visit Diagnoses Not on filedocumented in this encounter Care Teams Lifestyle Block Farmer Relationship Specialty Start Date End Date Jennie Resendiz MD [address] [facility] [address] [place] [address] PCP - General 03/06/10 08/27/16 documented as of this encounter
--- OUTSIDE RECORDS SUMMARY | 2024-04-08 11:11 | XMS_ITS | Encounter Summary ---
Author [place] [address] Care Team Providers Care Tool Dispatcher Name Role Phone Jennie Resendiz MD Primary Care Provider [phone] Encounter Details Date Type Department Care Team (Late st Contact Info) Description 09/18/2012 7:29 AM EDT - 09/18/2012 11:59 PM EDT Hospital [place] [phone] Social History Tobacco Use Types Packs/Day Years [...] Final 09/18/2012 08:58 am) Patient Info ID: ?[id number] ?: ??[birth year] (52 yrs) Name: ?KALLIE SMART ? Visit Date: 09/18/2012 08:40 am Performed By Performed By: ?Renu Velazquez RDMS Attending: ? Gaurav STOCKTON, Matthew Tse Referred By: ? SOFIA DAVIS BALLISTICIAN Service(s) Provided UABDCVASC - Abdominal Complete Survey with ?65824, 53583 Vascular - [id number], [id number] Indications cirrhosis, HCC surveillance ----- Liver ----- [...] Final 09/18/2012 08:58 am) Patient Info ID: [id number] : 60 (52 yrs) Name: KALLIE SMART Visit Date: 09/18/2012 08:40 am Performed By Performed By: Renu Velazquez RDMS Attending: Matthew Nolasco MD Referred By: SOFIA DAVIS APRN Service(s) Provided UABDCVASC - Abdominal Complete Survey with [id number], 34898 Vascular - [id number], [id number] Indications cirrhosis, HCC surveillance ----- Liver ----- [...] filedocumented in this encounter Care Teams Tool Dispatcher Relationship Specialty Start Date End Date Jennie Resendiz MD [address] [place] [address] PCP - General 03/06/10 08/27/16 documented as of this encounter
--- OUTSIDE RECORDS SUMMARY | 2024-04-08 11:11 | XMS_ITS | Encounter Summary ---
Author Organization [facility] [place] [address] Care Team Providers Care On Line Csr Name Role Phone Jennie Resendiz MD Primary Care Provider [phone] Reason for Visit * Reason Comments Advice Only hyperparathyroidism Encounter Details Date Type Department Care Team (Latest Contact Info) Description 11/17/2012 10:00 AM EDT Office [place] [phone] Samir Payne MD [facility] [place] [address] Hyperparathyroidism (Primary Dx); Hyperparathyroidism; H/O hysterectomy for [...] documented in this encounter Plan of Treatment Pending Results [...] Follicle Stimulating Hormone (11/17/2012 11:03 AM EDT) Follicle Stimulating Hormone 54.1 mlU/ML [facility] MILLENNIUM Comment: Reference Ranges: Females: Follicular: ? 3.5-12.5 mIU/mL Ovulation: ?4.7-21.5 mIU/mL Luteal: ? 1.7-7.7 mIU/mL Postmenopausal: 25.8-134.8 mIU/mL Blood specimen (specimen) 11/17/2012 11:03 AM EDT 11/17/2012 11:27 AM EDT Narrative Resulting Agency Comment Spec In Lab Samir Payne MD CHEMISTRY ORDERAB LES [facility] * (ABNORMAL) Hepatic Function Panel (11/17/2012 11:03 AM EDT) Protein, Total 7.5 6.4 - 8.3 gm/dL [facility] MILLENNIUM Albumin 4.9 3.2 - 5.2 gm/dL [facility] MILLENNIUM Aspartate Aminotransferase 47(H) 0 - 30 unit/L [...] Performing Organization Address City/[facility] Co de Phone Number [facility] * Phosphorus (11/17/2012 11:03 AM EDT) Phosphorus 3.0 2.5 - 4.5 mg/dL [facility] Blood specimen (specimen) 11/17/2012 11:03 AM EDT 11/17/2012 11:21 AM EDT Narrative Resulting Agency Comment Spec In Lab Samir Payne MD CHEMISTRY ORDERAB LES Performing Organization Address [facility] Phone Number [facility] * VIT D Total Evaluation (11/17/2012 11:03 AM EDT) Vitamin D Total 25 OH 42 30 - 100 ng/mL [facility] Comment: Deficient <10 ng/mL Insufficient 10 to [...] MD CHEMISTRY ORDERAB LES Performing Organization Address [facility] Co de Phone Number [facility] * (ABNORMAL) Basic Metabolic Panel (non-fasting) (11/17/2012 11:03 AM EDT) [facility] Glucose 108 60 - 199 mg/dL [facility] MILLENNIUM Comment:Diabetes: >=200 mg/d L plus symptoms Blood Urea Nitrogen 11 8 - 18 mg/dL [facility] MILLENNIUM Creatinine 0.87 0.70 - 1.20 mg/dL [facility] MILLENNIUM Comment: Please note that the pediatric reference intervals supplied above were not validated at [facility] Results from pediatric patients should be [...] Samir Payne MD CHEMISTRY ORDERAB LES CERNER PolySuiteENNIUM * (ABNORMAL) PTH (11/17/2012 11:03 AM EDT) Parathyroid Hormone 130(H) 15 - 65 pg/mL LILLIE HUIZAR Blood specimen (specimen) 11/17/2012 11:03 AM EDT 11/17/2012 11:07 AM EDT Narrative Resulting Agency Comment Spec In Lab Samir Payne MD CHEMISTRY ORDERAB LES LILLIE HUIZAR documented in this encounter Visit Diagnoses Diagnosis Hyperparathyroidism- Primary Hyperparathyroidism, unspecified H/O hysterectomy for benign disease Acquired absence of both cervix and uterus documented in this encounter Care Teams On Line Csr Relationship Specialty Start Date End Date Jennie Resendiz MD [address] [facility] [address] [place] [address] PCP - General 03/06/10 08/27/16 documented as of this encounter
--- OUTSIDE RECORDS SUMMARY | 2024-04-08 11:11 | XMS_ITS | Encounter Summary ---
[place] [address] Care Team Providers Care Environmental Remediation Engineer Name Role Phone Jennie Resendiz MD Primary Care Provider [phone] Encounter Details Date Type Department Care Team (Late st Contact Info) Description 12/01/2012 11:00 AM EDT - 12/01/2012 11:59 PM EDT Hospital En[place] [address] Social History Tobacco Use Types [...] on filedocumented in this encounter Care Teams Environmental Remediation Engineer Relationship Specialty Start Date End Date Jennie Resendiz MD [address] [place] [address] PCP - General 03/06/10 08/27/16 documented as of this encounter
--- OUTSIDE RECORDS SUMMARY | 2024-04-08 11:11 | XMS_ITS | Encounter Summary ---
Author Organization [facility] [place] [address] Care Team Providers Care Fuel Manager Name Role Phone Jennie Resendiz MD Primary Care Provider [phone] Encounter Details Date Type Department Care Team (Latest Contact Info) Description 02/17/2012 10:06 AM EST - 02/17/2012 2:40 PM EST Hospital Encounter [place] [address] Ashley Salomon MD [facility] [place] [address] Genaro Hoover [facility] [address] [place] [address] [place] [address] Discharge Disposition: Home Social History Tobacco Use [...] - 02/17/2012 1:19 PM EST Please call [phone], before 5pm with problems, questions or concerns, after 5pm call the Hospital at [phone] and ask to speak to the Key Punch Operator promotions manager and the coke crusher operator will contactthat person for you. Discharge [...] * COLONOSCOPY: WHAT TO EXPECT AT HOME (SLOVENIAN) documented in this encounter Medications at [...] * COLONOSCOPY (02/17/2012 12:04 PM EST) COLONOSCOPY [facility] Endoscopy Patient Name: Kallie Darling ? Procedure Date: 02/17/2012 12:04 PM ? Date of : 1960 ? Age: 51 ? Order #: [id number] ? Procedure: ? Colonoscopy Indications: ? Screening for colorectal malignant ? neoplasm, Constipation Providers: ? Clark Cardenas MD, Abdulaziz Goodrich ? , RN, Bruna Connelly, Research Laboratory Specialist Referring MD: ?Jennie Resendiz MD Medicines: ? [...] RN) documented in this encounter Care Teams Fuel Manager Relationship Specialty Start Date End Date Jennie Resendiz MD [address] [place] [address] PCP - General 03/06/10 08/27/16 documented as of this encounter
--- OUTSIDE RECORDS SUMMARY | 2024-04-08 11:11 | XMS_ITS | Encounter Summary ---
[place] [address] Care Team Providers Care Cash Grain Grower Name Role Phone Jennie Resendiz MD Primary Care Provider [phone] Encounter Details Date Type Department Care Team (Late st Contact Info) Description 01/28/2012 9:00 AM EDT Clinical Support [facility] [place] [address] Social History Tobacco Use Types [...] on filedocumented in this encounter Care Teams Cash Grain Grower Relationship Specialty Start Date End Date Jennie Resendiz MD [address] [place] [address] PCP - General 03/06/10 08/27/16 documented as of this encounter
--- OUTSIDE RECORDS SUMMARY | 2024-04-08 11:11 | XMS_ITS | Encounter Summary ---
[place] [address] Care Team Providers Care Coremaker Supervisor Name Role Phone Jennie Resendiz MD Primary Care Provider [phone] Encounter Details Date Type Department Care Team (Latest Contact Info) Description 02/28/2012 3:00 PM EST Procedure [place] [address] Smith Nunez MD Hematuria (Primary Dx) Discharge Disposition: Home [...] and cola. You do not need to ounces of water today. Urination: You will likely have a small amount of blood in your urine for the next several days. This is normal; however, if you are passing large amounts of blood clots or are unable to void please call our office at [phone] before 5PM or [phone] after hours. Please call if: * you have copious blood in your urine * fevers greater than 101.3 F * you are unable to void The number for questions is [phone] before 5 PM weekdays and [phone] after 5 PM and weekends. Follow-up: You will be notified when your ultrasound results are complete. documented in this encounter Progress Notes * Smith Nunez MD - 02/28/2012 2:29 PM EST See documentation in procedure visit from 02/28/12. documented in this encounter Plan of Treatment Scheduled Orders Name Type Priority Associated Diagnoses Orde r Schedule Cystoscopy PROCEDURE Routine Hematuria Ordered: 02/28/2012 documented as of this encounter Procedures Procedure Name Priority Date/Time Associated Diagnosis Comments NON-RESTAURANT CASHIER FINAL REPORT Routine 02/28/2012 3:53 PM EST URINALYSIS WITH REFLEX CULTURE Routine 02/28/2012 2:30 PM EST Hematuria CYTOPATHOLOGY NON-GYNECOLOGICAL Routine 02/28/2012 2:20 PM EST Hematuria documented in this encounter Results * NON-RESTAURANT CASHIER FINAL REPORT (02/28/2012 3:53 PM EST) Non-Printing Assistant Final Report ? [facility] ? Provider: ?? HYAMS, SMITH S ?Pt. Name: ?? KALLIE DARLING ? Acc #: ?[id number] ?Pt. ? Col Date: ?? 02/28/2012 ?/Sex: [...] LILLIE HUIZAR 02/28/2012 3:53 PM EST Smith Nunez MD PATHOLOGY/CYTOLOGY O SELWYN LILLIE [facility] * US retroperitoneal complete (02/28/2012 3:21 PM EST) Anatomical Region Laterality Modality Abdomen Ultrasound 02/28/2012 3:21 PM EST Narrative 02/28/2012 3:33 PM EST ? Renal ? (Signed Final 02/28/2012 03:32 pm) Patient Info ID: ? [id number] ? : ??60 (51 yrs) Name: ? KALLIE DARLING ?Visit Date: 02/28/2012 03:20 pm Performed By Performed By: ?Miladis Leslie RDMS Associate: ? Ant STOCKTON, Esha Attending: ? Matthew Nolasco MD Referred By: ? SMITH NUNEZ MD Service(s) Provided URETRO - Retroperitoneal Complete - [id number] ? [id number] Indications Hematuria Comparison None Right Kidney Size [...] Final 02/28/2012 03:32 pm) Patient Info ID: [id number] : 60 (51 yrs) Name: KALLIE DARLING Visit Date: 02/28/2012 03:20 pm Performed By Performed By: Miladis Leslie [facility] Associate: Esha Cain MD Attending: Matthew Nolasco MD Referred By: SMITH NUNEZ MD Service(s) Provided URETRO - Retroperitoneal Complete - [id number] Indications Hematuria Comparison None Right Kidney Size [...] Nunez MD IMG US GEN ORDERABLE S * [...] Urine Dipstick Hazy(A) Clear CERNER MILLENNIUM Specific [place] Urine Automated 1.016 1.002 - 1.030 CERNER [...] In Lab Smith Nunez MD URINE ORDERABLES Performing Organization Address [facility] de Phone Number CERNER MILLENNIUM * Cytopathology Non-Gynecological (02/28/2012 2:20 PM EST) AP Specimen 02/28/2012 2:20 PM EST 02/28/2012 2:20 PM EST Narrative CERNER MILLENNIUM - 02/28/2012 2:20 PM EST Specimen requisition ordered. ??Separate Pathology report to follow Smith Nunez MD PATHOLOGY/CYTOLOGY O RDERABLES CERNER MILLENNIUM documented in this encounter Visit Diagnoses Diagnosis Hematuria- Primary Hematuria, unspecified Hematuria Hematuria, unspecified documented in this encounter Care Teams Coremaker Supervisor Relationship Specialty Start Date End Date Jennie Rseendiz MD [facility] [address] [place] [address] PCP - General 03/06/10 08/27/16 documented as of this encounter
--- OUTSIDE RECORDS SUMMARY | 2024-04-08 11:11 | XMS_ITS | Encounter Summary ---
[place] [address] Care Team Providers Care Cigarette Maker Name Role Phone Jennie Resendiz MD Primary Care Provider [phone] Encounter Details Date Type Department Care Team (Late st Contact Info) Description 01/28/2012 6:30 AM EDT Clinical Support [facility] [place] [address] Social History Tobacco Use Types [...] Aldana RN - 01/28/2012 9:[address] [facility] Vascular and Interventional Radiology Biopsy Discharge Instructions [...] be reported to you by your primary direct care worker or the clinician who ordered the biopsy. Please do not call us for results as we will not have them. If you have not been contacted by your clinician within 5 business days you should call that officefor further information. When to call the Interventional Radiology Department: Please call with any questions or concerns. If it is during regular office hours, please call [phone]. If it is after regular office hours, or on weekends or holidays, please call [phone] and ask to speak to the Retail Support Associate front office agent for Interventional Radiology. You have received medication [...] on filedocumented in this encounter Care Teams Cigarette Maker Relationship Specialty Start Date End Date Jennie Resendiz MD [address] [place] [address] PCP - General 03/06/10 08/27/16 documented as of this encounter
--- OUTSIDE RECORDS SUMMARY | 2024-04-08 11:11 | XMS_ITS | Encounter Summary ---
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 She is post menopausal and is not on hormone replacement. She has no history of head or neck irradiation and has no family history of hypercalcemia or parathyroid adenoma. ROS: No H/O asthma, CA, stroke, pulmonary embolus or phlebitis. Comprehensive review [...] developed, well nourished 52 y.o. female in [facility]. Skin: good turgor, nonicteric. Neck: No masses, [...] unspecified documented in this encounter Care Teams Magisterial District Judge Relationship Specialty Start Date End Date Jennie Jackson MD [address] [facility] [address] [place] [address] PCP - General 03/06/10 08/27/16 documented as of this encounter
--- OUTSIDE RECORDS SUMMARY | 2024-04-08 11:11 | XMS_ITS | Encounter Summary ---
Author Organization [facility] [place] [address] Care Team Providers Care Grinding Room Inspector Name Role Phone Jennie Resendiz MD Primary Care Provider [phone] Reason for Visit * Reason Comments Follow-up Encounter Details Date Type Department Care Team (Late st Contact Info) Description 05/06/2013 1:00 PM EST [place] [id number] CLINIC, Sofia Roque, Ashley Campbell MD [facility] [address] Cirrhosis of liver (Primary Dx) Discharge Disposition: [...] year old white female seen today at [facility] in consultation for hepatosplenomegaly on [...] drinking. She started seeing a counselor in [facility] who is going to help [...] 02:32 pm) Patient Info ID #: ? [id number] ? : 60 (53 yrs) Name: ? KALLIE SMART ?Visit Date:11/23/2013 01:32 pm Performed By Performed By: ?Dwaine EVANS, Lina Associate: ? Asa STOCKTON, Anne Attending: ? Jignesh STOCKTON, Natalie Naranjo Referred By: ? SOFIA WOODARD [facility] SECURITY OFFICER Service(s) Provided ??UABDCVASC - Abdominal Complete Survey with Vascular - 80508, 66463 ??[id number], [id number] Indications ??cirrhosis, HCC surveillance, portal HTN surveillance [...] 11/23/2013 02:32 pm) Patient Info ID #: [id number] : 60 (53 yrs) Name: KALLIE SMART Visit Date:11/23/2013 01:32 pm Performed By Performed By: Lina Isidro RDMS Associate: Anne Bray MD Attending: Natalie Egan MD Referred By: SOFIA WOODARD APRN Service(s) Provided UABDCVASC - Abdominal Complete Survey with Vascular - 64471, 55050 [id number], [id number] Indications cirrhosis, HCC surveillance, portal HTN surveillance [...] Neutrophil % 44.6 34.0 - 71.0 % CERNER MILLENNIUM Neutrophil Absolute 2.68 1.50 - 6.30 x10(3)/mcL [...] EST Sofia Woodard APRN HEMATOLOGY ORDERA BLES [facility] AILYNENNIUM * (ABNORMAL) CBC (with Diff) (05/06/2013 12:35 [...] Platelet Volume 10.6 9.0 - 12.0 fL CERNER MILLENNIUM Blood specimen (specimen) 05/06/2013 12:35 PM EST 05/06/2013 12:44 PM EST Narrative Resulting Agency Comment Spec In Lab Sofia Woodard APRN HEMATOLOGY ORDERA BLES Performing Organization Address [facility] Co de Phone Number [facility] [place] [facility] * Lavender Tube HOLD (05/06/2013 12:35 PM EST) Lavender Hold Sample in lab. [facility] [place] [facility] Blood specimen (specimen) 05/06/2013 12:35 PM EST 05/06/2013 12:44 PM EST Sofia Woodard APRN HEMATOLOGY ORDERA BLES Performing Organization Address [facility] Co de Phone Number [facility] [place] [facility] * AFP tumor marker (05/06/2013 12:32 PM EST) Alpha Fetoprotein 4.6 <=8.3 ng/mL [facility] [place] [facility] Blood specimen (specimen) 05/06/2013 12:32 PM EST 05/06/2013 12:44 PM EST Narrative Resulting Agency Comment Spec In Lab Timothy Paul MD CHEMISTRY ORDERABLE S Performing Organization Address [facility] de Phone Number [facility] [place] [facility] * Prothrombin Time (05/06/2013 12:32 PM EST) Prothrombin Time 14.8 12.0 - 15.0 sec [facility] Comment: [facility] Transfusion Committee Guidelines: INR less than 2.0, PTT less than OR equal to 43.5 seconds, or Fibrinogen greater than or equal to 100 mg/dl indicate adequate procoagulant activity for hemostasis in patients without underlying bleeding disorders. International Normalization Ratio 1.1 0.9 - 1.1 [facility] Blood specimen (specimen) 05/06/2013 12:32 PM EST 05/06/2013 12:44 PM EST Narrative Resulting Agency Comment Spec In Lab Timothy Paul MD HEMATOLOGY ORDERABL ES LILLIE ROBERTSONENNIUM * (ABNORMAL) Comprehensive metabolic panel (non-fasting) (05/06/2013 12:32 PM EST) [facility] Signature Glucose 107 60 - 199 mg/dL CERNER MILLENNIUM Comment:Diabetes: >=200 mg/d L plus symptoms Blood Urea Nitrogen 11 8 - 18 mg/dL CERNER MILLENNIUM Creatinine 0.75 0.70 - 1.20 mg/dL CERNER MILLENNIUM Comment: Please note that the pediatric reference intervals supplied above were not validated at [facility]. Results from pediatric patients should be interpreted [...] Lab Timothy Paul MD CHEMISTRY ORDERABLE S [facility] [employer] documented in this encounter Visit Diagnoses Diagnosis Cirrhosis of liver- Primary Cirrhosis of liver without mention of alcohol Cirrhosis of liver Cirrhosis of liver without mention of alcohol documented in this encounter Care Teams Grinding Room Inspector Relationship Specialty Start Date End Date Jennie Resendiz MD [address] [place] [address] PCP - General 03/06/10 08/27/16 documented as of this encounter
--- OUTSIDE RECORDS SUMMARY | 2024-04-08 11:11 | XMS_ITS | Encounter Summary ---
[place] [address] Care Team Providers Care Hospice Care Consultant Name Role Phone Jennie Resendiz MD Primary Care Provider [phone] Encounter Details Date Type Department Care Team (Latest Contact Info) Description 11/23/2013 11:40 AM EDT - 11/23/2013 11:59 PM EDT Hospital [place] [phone] Cirrhosis of liver Social History Tobacco Use [...] 02:32 pm) Patient Info ID #: ? [id number] ? : 60 (53 yrs) Name: ? KALLIE SMART ?Visit Date:11/23/2013 01:32 pm Performed By Performed By: ?Dwaine PABLOOK, Lina Associate: ? Asa STOCKTON, Anne Attending: ? Jignesh STOCKTON, Natalie Naranjo Referred By: ? SOFIA DAVIS SENIOR PRODUCT ANALYST Service(s) Provided ??UABDCVASC - Abdominal Complete Survey with Vascular - 63382, 20142 ??[id number], [id number] Indications ??cirrhosis, HCC surveillance, portal HTN surveillance [...] 11/23/2013 02:32 pm) Patient Info ID #: [id number] : 60 (53 yrs) Name: KALLIE Villalobos Visit Date:11/23/2013 01:32 pm Performed By Performed By: Lina Isidro RDMS Associate: Anne Bray MD Attending: Natalie Egan MD Referred By: SOFIA DAVIS APRN Service(s) Provided UABDCVASC - Abdominal Complete Survey with Vascular - 19974, 73148 [id number], [id number] Indications cirrhosis, HCC surveillance, portal HTN surveillance [...] alcohol documented in this encounter Care Teams Hospice Care Consultant Relationship Specialty Start Date End Date Jennie Resendiz MD [address] [place] [address] PCP - General 03/06/10 08/27/16 documented as of this encounter
--- OUTSIDE RECORDS SUMMARY | 2024-04-08 11:11 | XMS_ITS | Encounter Summary ---
Author Organization [facility] Address [facility] [place] [id number] Care Team Providers Care Switch Adjuster Name Role Phone Jennie Resendiz MD Primary Care Provider [phone] Reason for Referral * Surgical (Routine) - Closed Specialty Diagnoses / Procedures Referred By Nicol sparks Referred To Contact General Surgery Diagnoses Hyperparathyroidism Vincenzo Rhodes MD [facility] [place] [address] Bright Woods MD [facility] [place] [address] Referral ID Status Reason Start Date Expiration Date V isits Requested Visits Authorized [id number] Closed Specialty Service Requested 12/08/2012 06/06/2013 1 1 Encounter Details Date Type Department Care Team (Latest Contact Info) Description 12/08/2012 Orders [place] [address] Vincenzo Rhodes MD [facility] [place] [address] Hyperparathyroidism (Primary Dx) Social History [...] unspecified documented in this encounter Care Teams Switch Adjuster Relationship Specialty Start Date End Date Jennie Resendiz MD [address] [place] [address] PCP - General 03/06/10 08/27/16 documented as of this encounter
--- OUTSIDE RECORDS SUMMARY | 2024-04-08 11:11 | XMS_ITS | Encounter Summary ---
[place] [address] Care Team Providers Care Roll Handler Name Role Phone Jennie Resendiz MD Primary Care Provider [phone] Encounter Details Date Type Department Care Team (Late st Contact Info) Description 11/24/2012 11:40 AM EDT [place] [phone] Smith Nunez MD Renal stone (Primary Dx) Discharge Disposition: Home [...] a history of cirrhosis followed at [facility] who was seen for possible [...] Routine 11/24/2012 4:15 PM EDT Renal stone NON-FIELD SERVICER FINAL REPORT Routine 11/24/2012 1:12 PM EDT URINALYSIS WITH REFLEX CULTURE Routine 11/24/2012 1:12 PM EDT Renal stone CYTOPATHOLOGY NON-GYNECOLOGICAL Routine 11/24/2012 1:12 PM EDT Renal stone documented in this encounter Results * Urine culture Clean Catch Urine (11/24/2012 4:15 PM EDT) Urine Culture ? Patient Name: KALLIE DARLING ?Ordered By: SMITH NUNEZ ? MR#: [id number] ?LOC: ??5B ? /Sex: ??1960 (52 years), ? Female ? PROCEDURE: Urine Culture ?SOURCE: T CC ? COLLECTED: 11/24/2012 16:15 ? STARTED: 11/24/2012 16:16 ? FINAL REPORT ? Final Report ? Verified:11/12 15:28 ? No growth (Less than 1,000 cfu/ml). ? __ LILLIE MIJARESIUM Urine specimen obtained by clean catch procedure (specimen) 11/24/2012 4:15 PM EDT 11/24/2012 4:15 PM EDT Narrative Resulting Agency Comment Spec In Lab Smith Nunez MD MICROBIOLOGY - GENER AL ORDERABLES LILLIE HUIZAR * Non-Digital Content Manager Final Report (11/24/2012 1:12 PM EDT) Non-Digital Content Manager Final Report ? [facility] ? Provider: ?? SMITH NUNEZ ?Pt. Name: ?? KALLIE DARLING ? Acc #: ?[id number] ?Pt. ? Col Date: ?? 11/24/2012 ? [...] fluid. ?Total Preparation: Liquid Based Prep 1. [facility] 11/24/2012 1:12 PM EDT Smith Nunez MD PATHOLOGY/CYTOLOGY O SELWYN CERNER MILLENNIUM * Cytopathology Non-Gynecological (11/24/2012 1:12 PM EDT) AP Specimen 11/24/2012 1:12 PM EDT 11/24/2012 1:12 PM EDT Narrative CERNER MILLENNIUM - 11/24/2012 1:12 PM EDT Specimen requisition ordered. ??Separate Pathology report to follow Smith Nunez MD PATHOLOGY/CYTOLOGY O SELWYN CERNER MILLENNIUM * (ABNORMAL) Urinalysis with microscopic [...] Urine Dipstick Clear Clear CERNER MILLENNIUM Specific Brooks Urine Automated 1.004 1.002 - 1.030 CERNER [...] Nunez MD URINE ORDERABLES Performing Organization Address City/State/[facility] Co de Phone Number [facility] documented in this encounter Visit Diagnoses Diagnosis Renal stone- Primary Calculus of kidney documented in this encounter Care Teams Roll Handler Relationship Specialty Start Date End Date Jennie Resendiz MD [address] [place] [address] PCP - General 03/06/10 08/27/16 documented as of this encounter
--- OUTSIDE RECORDS SUMMARY | 2024-04-08 11:12 | XMS_ITS | Encounter Summary ---
[place] [address] Care Team Providers Care Math Tutor Name Role Phone Jennie Resendiz MD Primary Care Provider [phone] Reason for Visit * Reason Comments Backache Encounter Details Date Type Department Care Team (Late st Contact Info) Description 12/04/2010 1:00 PM EDT Office [place] [phone] Grant Roach MD Chronic low back pain (Primary Dx); Lumbago [...] the care. Haven Telles DO DO N [facility] [place] [address] Dept: [phone] * Virginia Quiroz RN - 12/04/2010 1:16 PM EDT Pre-Procedure Screening Questions: 1. Status: No 2. 3. Patient states they have a straddle bug driver to transport after procedure? Yes 4. [...] arrived for a RT PIRIFORMIS INJECTION Kallie Wilfredo Porter was interviewed and the medical record [...] desires. Grant Roach MD Pain Medicine Fellow [facility] documented in this encounter Miscellaneous Notes * Miscellaneous - Tino, Motorcycle Service Technician - 12/08/2010 7:31 AM EDT documented in [...] mg documented in this encounter Care Teams Math Tutor Relationship Specialty Start Date End Date Jennie Resendiz MD [address] [place] [address] PCP - General 03/06/10 08/27/16 documented as of this encounter
--- OUTSIDE RECORDS SUMMARY | 2024-04-08 11:12 | XMS_ITS | Encounter Summary ---
Author Organization [facility] Address [address] [place] [address] Care Team Providers Care Clinical Office Technician Name Role Phone Grant Lindsey MD Primary Care Provider Reason for Visit * Reason Onset Date Comments Appointment Related 08/07/2021 Encounter Details Date Type Department Care Team (Late st Contact Info) Description 08/07/2021 Telephone [facility] Neurosurgery - [facility] [address], [place] [id number] Alfonzo Cobb MD [address] [facility], [address] [place] [address] Appointment Related Social History Tobacco [...] 11/14/2019 Verbally Threaten Not on file 11/14/2019 Comments No Sex and Gender Information Value Date Recorded Sex Assigned at Not on file Legal Sex Female 18:23 EST Gender Identity Female 09/09/2019 13:11 EDT Sexual Orientation Not on file documented as of this encounter Functional Status * Are you deaf or do you have serious difficulty hearing? Answer Date of Assessment Author No 02/03/2020 20:00 EDT Sonia Tan RN * Are you blind or do you have serious difficulty seeing, even when wearing glasses? Answer Date of Assessment Author No 02/03/2020 20:00 EDT Sonia Tan RN * Do you have serious difficulty walking or climbing stairs? (5 years old or older) Answer Date of Assessment Author Yes 02/03/2020 20:00 EDT Sonia Tan RN * Do you have difficulty dressing or bathing? (5 years old or older) Answer Date of Assessment Author No 02/03/2020 20:00 EDT Sonia Tan RN * Because of a physical, mental, or emotional condition, do you have difficulty doing errands alone such as visiting a doctor's office or shopping? (15 years old or older) Answer Date of Assessment Author Yes 02/03/2020 20:00 EDT Sonia Tan RN documented as of this encounter Mental Status * Because of a physical, mental, or emotional condition, do you have serious difficulty concentrating, remembering, or making decisions? (5 years old or older) Answer Entry Date Author No 02/03/2020 20:00 EDT Sonia Tan RN documented in this encounter Miscellaneous Notes * Telephone Encounter - Dorcas Bolanos - 08/07/2021 1155 EDT Images from the original note were not included. Confirmed the following appointment details with Kallie. She verbalized understanding and deniedhaving any quesitons. documented in this encounter Plan of Treatment Not on file documented as of this encounter Visit Diagnoses Not on filedocumented in this encounter Care Teams Clinical Office Technician Relationship Specialty Start Date End Date Grant Lindsey MD [facility] [place] [address] PCP - General 09/09/19 documented as of this encounter
--- OUTSIDE RECORDS SUMMARY | 2024-04-08 11:12 | XMS_ITS | Encounter Summary ---
[place] [address] Care Team Providers Care Eating Disorder Specialist Name Role Phone Jennie Resendiz MD Primary Care Provider [phone] Reason for Referral * Consultation (Routine) - Closed Specialty Diagnoses / Procedures Referred By Nicol sparks Referred To Contact Pain Management Diagnoses Chronic low back pain Dorinda Lira APRN [facility] [address] [facility] [address] [place] [phone] Referral ID Status Reason Start Date Expiration Date V isits Requested Visits Authorized [id number] Closed Consult Only 09/28/2010 03/27/2011 1 1 Reason for Visit * Reason Comments Back Pain Encounter Details Date Type Department Care Team (Late st Contact Info) Description 09/28/2010 11:30 AM EDT Follow-[place] [address] Dorinda Lira DOPE HOUSE OPERATOR HELPER [facility] [place] [address] Chronic low back pain (Primary [...] medical clearance for potential participationin the functional pentecostal program . At the time that I saw her there was not a large gap between her goals and abilities nor her goals clear and she was sent to see Fermín for conditioning and goals clarification . She still has no clear functional goals and is not a candidate for the functional pentecostal program. Objective : I reviewed past notes [...] the patient is not a candidate for FRPtdario you . Greater than 50% of this 25 minute visit was spent in [id number] discussion of present symptoms and plan of care. documented in this encounter Plan of Treatment Scheduled Referrals Name Type Priority Associated Diagnoses Orde r Schedule REFERRAL TO PAIN CLINIC Outpatient Referral Routine Chronic low back pain Ordered: 09/28/2010 documented as of this encounter Visit Diagnoses Diagnosis Chronic low back pain- Primary Lumbago documented in this encounter Care Teams Eating Disorder Specialist Relationship Specialty Start Date End Date Jennie Resendiz MD [facility] [address] [facility] [address] [place] [address] PCP - General 03/06/10 08/27/16 documented as of this encounter
--- OUTSIDE RECORDS SUMMARY | 2024-04-08 11:12 | XMS_ITS | Encounter Summary ---
[place] [address] Care Team Providers Care Organ Pipe Finisher Name Role Phone Jennie Resendiz MD Primary Care Provider [phone] Reason for Visit * Reason Comments Backache Encounter Details Date Type Department Care Team (Late st Contact Info) Description 10/04/2010 11:15 AM EDT [place] [phone] Federico Barroso MD LBP (low back pain) (Primary Dx) Discharge [...] that she was nota candidate for the catholic program but traditional PT may still provide [...] this 15 minute visit was spent in [id number] discussion with regard to medical management for [...] Lumbago documented in this encounter Care Teams Organ Pipe Finisher Relationship Specialty Start Date End Date Jennie Resendiz MD [address] [place] [address] PCP - General 03/06/10 08/27/16 documented as of this encounter
--- OUTSIDE RECORDS SUMMARY | 2024-04-08 11:12 | XMS_ITS | Encounter Summary ---
Author Organization [facility] Address [address] [place] [address] Care Team Providers Care Assistant Merchandiser Name Role Phone Grant Lindsey MD Primary Care Provider [phone] Encounter Details Date Type Department Care Team (Late st Contact Info) Description 07/09/2023 Lab Requisition [facility] Pathology & Laboratory Medicine - [facility] [address] [place] [address] Outr Resulting Lab, Provider Social History Tobacco [...] Date of Assessment Author No 02/03/2020 20:00 Sonia Segal RN * Are you blind or do you have serious difficulty seeing, even when wearing glasses? Answer Date of Assessment Author No 02/03/2020 20:00 Sonia Segal RN * Do you have serious difficulty walking or climbing stairs? (5 years old or older) Answer Date of Assessment Author Yes 02/03/2020 20:00 Sonia Segal RN * Do you have difficulty dressing or bathing? (5 years old or older) Answer Date of Assessment Author No 02/03/2020 20:00 Sonia Segal RN * Because of a physical, mental, or emotional condition, do you have difficulty doing errands alone such as visiting a doctor's office or shopping? (15 years old or older) Answer Date of Assessment Author Yes 02/03/2020 20:00 Sonia Segal RN documented as of this encounter Mental Status * Because of a physical, mental, or emotional condition, do you have serious difficulty concentrating, remembering, or making decisions? (5 years old or older) Answer Entry Date Author No 02/03/2020 20:00 Sonia Segal RN documented in this encounter Plan of Treatment Not on file documented as of this encounter Procedures Procedure Name Priority Date/Time Associated Diagnosis Comments LYME AB Routine 07/08/2023 14:29 EDT documented in this encounter Results * LYME AB (07/08/2023 14:29 EDT) Lyme Ab Negative Negative 07/10/2023 9:44 EDT [facility] Blood VENOUS BLOOD / Unknown 07/08/2023 14:29 EDT 07/09/2023 16:20 EDT us Provider Outr Resulting Lab IMMUNOLOGY AND SEROL OGY ORDERABLES Final Result [facility] [address] [place] [address] documented in this encounter Visit Diagnoses Not on filedocumented in this encounter Care Teams Assistant Merchandiser Relationship Specialty Start Date End Date Grant [place] [address] PCP - General 09/09/19 documented as of this encounter
--- OUTSIDE RECORDS SUMMARY | 2024-04-08 11:12 | XMS_ITS | Encounter Summary ---
Author Organization [facility] Address [address] [place] [address] Care Team Providers Care Product Safety Lead Name Role Phone Grant Lindsey MD Primary Care Provider [phone] Encounter Details Date Type Department Care Team [...] hearing? Answer Date of Assessment Author No 12/25/2019 18:00 EDT Dalton Cerrato RN * Are you blind or do you have serious difficulty seeing, even when wearing glasses? Answer Date of Assessment Author No 12/25/2019 18:00 EDT Dalton Cerrato RN * Because of a physical, mental, or emotional condition, do you have difficulty doing errands alone such as visiting a doctor's office or shopping? (15 years old or older) Answer Date of Assessment Author No 12/25/2019 18:00 EDT Dalton Cerrato RN documented as of this encounter Mental Status * Because of a physical, mental, or emotional condition, do you have serious difficulty concentrating, remembering, or making decisions? (5 years old or older) Answer Entry Date Author No 12/25/2019 18:00 EDT Dalton Cerrato RN documented in this encounter Plan of Treatment Not on file documented as of this encounter Visit Diagnoses Not on filedocumented in this encounter Care Teams Product Safety Lead Relationship Specialty Start Date End Date Grant Lindsey MD [address] [place] [address] PCP - General 09/09/19 documented as of this encounter
--- OUTSIDE RECORDS SUMMARY | 2024-04-08 11:12 | XMS_ITS | Encounter Summary ---
Author Organization [facility] [place] [address] Care Team Providers Care Superintendent System Operation Name Role Phone Jennie Resendiz MD Primary Care Provider [phone] Reason for Visit * Reason Comments Functional Assessment Encounter Details Date Type Department Care Team (Late st Contact Info) Description 07/30/2010 1:30 PM EDT [place] [address] Dona Thompson, [facility] [place] [address] Social History Tobacco Use Types Packs/Day Years Used Date Smoking Tobacco: Never Assessed Sex and Gender Information Value Date Recorded Sex Assigned at Not on file Gender Identity Not on file Sexual Orientation Not on file documented as of this encounter Plan of Treatment Not on file documented as of this encounter Visit Diagnoses Not on filedocumented in this encounter Care Teams Superintendent System Operation Relationship Specialty Start Date End Date Jennie Resendiz MD [address] [place] [address] PCP - General 03/06/10 08/27/16 documented as of this encounter
--- OUTSIDE RECORDS SUMMARY | 2024-04-08 11:12 | XMS_ITS | Encounter Summary ---
[place] [address] Care Team Providers Care Comic Artist Name Role Phone Jennie Resendiz MD Primary Care Provider [phone] Reason for Visit * Reason Comments Back Pain Encounter Details Date Type Department Care Team (Late st Contact Info) Description 09/05/2010 1:00 PM EDT Office [place] [phone] Darshan Garsia, PT Jennie Resendiz MD [address] [place] [address] Chronic low back pain (Primary [...] strength. We discussed the concepts of functional protestant and agreed on strategies to move toward [...] Lumbago documented in this encounter Care Teams Comic Artist Relationship Specialty Start Date End Date Jennie Resendiz MD [address] [place] [address] PCP - General 03/06/10 08/27/16 documented as of this encounter
--- OUTSIDE RECORDS SUMMARY | 2024-04-08 11:12 | XMS_ITS | Encounter Summary ---
Author Organization [facility] Address [address] [place] [address] Care Team Providers Care Senior Reactor Operator Name Role Phone Grant Lindsey MD Primary Care Provider [phone] Reason for Visit * Reason Onset Date Comments Appointment Related 05/26/2020 Encounter Details Date Type Department Care Team (Late st Contact Info) Description 05/26/2020 Telephone [facility] [address] [place] [address] Amber Lawrence PA-C [address] [facility] [place] [address] Appointment Related Social History Tobacco [...] Date of Assessment Author Yes 02/03/2020 20:00 EDSonia Borrero RN * Do you have difficulty dressing [...] Answer Entry Date Author No 02/03/2020 20:00 EDSonia Borrero RN documented in this encounter Miscellaneous Notes * Telephone Encounter - Docras Bolanos - 06/12/2020 1115 EST 3rd attempt: 2nd attempt to contact patient to schedule a telemedicine appointment with Amber Lawrence PA-C. Game Breeding Farm Manager not able to leave a message due to the patient's voicemail not being set up. * Telephone Encounter - Dorcas Bolanos - 06/05/2020 1253 EST 2nd attempt to contact patient to schedule a telemedicine appointment with Amber Lawrence PA-C. Game Breeding Farm Manager not able to leave a message due to the patient's voicemail not being set up. * Telephone Encounter - Dorcas Bolanos - 05/26/2020 1113 EST Attempted to contact Kallie to schedule a telemedicine with Amber Lawrence PA-C. This scenario writer was unable to leave a message, due her voicemail not being set up. The alternate number is no longerin service. This scenario writer will attempt to contact Kallie at a later time to schedule. documented in this encounter Plan of Treatment Not on file documented as of this encounter Visit Diagnoses Not on filedocumented in this encounter Care Teams Senior Reactor Operator Relationship Specialty Start Date End Date Grant [place] [address] [address] [place] [address] PCP - General 09/09/19 documented as of this encounter
--- OUTSIDE RECORDS SUMMARY | 2024-04-08 11:12 | XMS_ITS | Encounter Summary ---
[place] [address] Care Team Providers Care Cafeteria Counter Attendant Name Role Phone Jennie Resendiz MD Primary Care Provider [phone] Reason for Visit * Reason Comments Backache Encounter Details Date Type Department Care Team (Late st Contact Info) Description 10/17/2010 1:15 PM EDT Follow-[place] [phone] Grant Roach MD Low back pain (Primary Dx) Discharge Disposition: [...] MD - 10/17/2010 2:23 PM EDT Subjective: This sharmila is a 50-year-old female returns clinic status post MRI that Dr. Federico Barroso ordered with a history of chronic nonspecific low back pain. She was evaluated for functional latter day which she is not interested in and [...] her life. Grant Roach MD Pain Fellow [facility] documented in this encounter Plan of Treatment Not on file documented as of this encounter Visit Diagnoses Diagnosis Low back pain- Primary Lumbago documented in this encounter Care Teams Cafeteria Counter Attendant Relationship Specialty Start Date End Date Jennie Resendiz MD [address] [facility] [address] [place] [address] PCP - General 03/06/10 08/27/16 documented as of this encounter
--- OUTSIDE RECORDS SUMMARY | 2024-04-08 11:12 | XMS_ITS | Encounter Summary ---
[place] [address] Care Team Providers Care Special Library Librarian Name Role Phone Jennie Resendiz MD Primary Care Provider [phone] Reason for Visit * Reason Comments Back Pain Right Hip Pain Functional Assessment Encounter Details Date Type Department Care Team (Late st Contact Info) Description 07/30/2010 2:00 PM EDT [place] [phone] Darshan Garsia, PT Unknown None Yovany Valenzuela MD Chronic low back pain (Primary Dx) Discharge [...] tolerance to successfully start the intensive functional jainism program. PLAN: Pending medical clearance, Kallie Porter should return for physical therapy progression to increase exercise tolerance, anticipating eventual entry into the FRP. Total time for testin minutes documented in this encounter Plan of Treatment Not on file documented as of this encounter Visit Diagnoses Diagnosis Chronic low back pain- Primary Lumbago documented in this encounter Care Teams Special Library Librarian Relationship Specialty Start Date End Date Jennie Resendiz MD [address] [place] [address] PCP - General 03/06/10 08/27/16 documented as of this encounter
--- OUTSIDE RECORDS SUMMARY | 2024-04-08 11:12 | XMS_ITS | Encounter Summary ---
Author Organization [facility] [place] [address] Care Team Providers Care Route Process Administrator Name Role Phone Jennie Resendiz MD Primary Care Provider [phone] Encounter Details Date Type Department Care Team (Late st Contact Info) Description 09/27/2010 Abstract [place] [address] Dorinda Lira, HUNTING SALES ASSOCIATE [facility] [place] [address] Social History Tobacco Use Types Packs/Day Years Used Date Smoking Tobacco: Never Assessed Sex and Gender Information Value Date Recorded Sex Assigned at Not on file Gender Identity Not on file Sexual Orientation Not on file documented as of this encounter Plan of Treatment Not on file documented as of this encounter Visit Diagnoses Not on filedocumented in this encounter Care Teams Route Process Administrator Relationship Specialty Start Date End Date Jennie Resendiz MD [address] [place], [place] [id number] PCP - General 03/06/10 08/27/16 documented as of this encounter
--- OUTSIDE RECORDS SUMMARY | 2024-04-08 11:12 | XMS_ITS | Clinical Summary ---
Author Organization [facility] Address [address] [place] [address] Care Team Providers Care Nutrition Aides Teacher Name Role Phone Grant Lindsey MD Primary Care Provider [phone] Allergies Active Allergy Reactions Criticality Noted Date [...] (Lactase) 06/25/2018 Neomycin Nausea Only,Rash Medium 06/14/2019 Flmgckvc-Mooaghcddcj-Ll lymyxnb 06/25/2018 Nausea and rash Polymyxin B Nausea Only,Rash Medium 06/14/2019 Medications pantoprazole (PROTONIX) 40 mg tablet Take 40 [...] aspart U-100 (NOVOLOG FLEXPEN) 100 unit/mL injectable penIndications: type 2 diabetes mellitus,increa se in units depending on sugar reading Inject 5 Units into the skin 3 times daily with meals. Active fluticasone propion/salmete rol (ADVAIR DISKUS INHALATION) Inhale 2 Puffs as directed 2 times daily. Active ALBUTEROL INHL Inhale 1 Puff as directed as needed. Active lisinopriL (PRINIVIL) 10 mg tablet TAKE ONE TABLET BY MOUTH EVERY DAY FOR FOR BLOOD PRESSURE 0 Active furosemide (LASIX) 20 mg tablet Take 20 mg by mouth daily. 0 Active levothyroxine (SYNTHROID) 50 mcg tablet Take 50 mcg by mouth daily. Active mirtazapine (REMERON) 15 mg tablet Take 15 mg by mouth at bedtime. 0 Active risperiDONE (RISPERDAL) 0.5 mg tablet Take 0.5 mg by mouth at bedtime. 0 Active sertraline (ZOLOFT) 50 mg tablet Take 50 mg by mouth daily. 0 Active CHANTIX STARTING MONTH BOX 0.5 mg (11)- 1 mg (42) tablet TAKE BY MOUTH DIRECTED ON PACKAGE. 0 Active acetaminophen (TYLENOL) 325 mg tablet Take 2 Tabs by mouth every 4 hours as needed for Pain. 0 Active acetaminophen (TYLENOL) 325 mg tablet Take 2 Tabs by mouth every 4 hours as needed for Pain. 0 Active docusate sodium (COLACE) 100 mg capsule Take 1 Cap by mouth 2 times daily. 0 Active Additional Information Patient not taking.Reported on 10/08/2021 methocarbamoL (ROBAXIN) 750 mg tablet Take 1 Tab by mouth 4 times daily. 30 Tab 0 Active Additional Information Patient not taking.Reported on 10/08/2021 oxyCODONE (ROXICODONE) 5 mg immediate release tablet Take 1 Tab by mouth every 4 hours as needed for Pain (discomfort). Daily Max: 30 mg 10 Tab 0 Active Additional Information Patient not taking.Reported on 10/08/2021 senna (SENOKOT) 8.6 mg tablet Take 1 Tab by mouth 2 times daily. 0 Active Additional Information Patient not taking.Reported on 10/08/2021 omeprazole (PRILOSEC) 20 mg capsule Take 20 mg by mouth daily. Active Active Problems Problem Noted Date Diagnosed Date Aneurysm ([facility]) 01/05/2020 Headache 12/25/2019 Cerebral aneurysm, nonruptured 12/02/2019 Overview (12/02/2019): Added automatically from request for surgery [id number] Surgical History Surgery Date Site/Laterality Comments HERNIA REPAIR TOE AMPUTATION 12/24/2019 right middle toe THYROIDECTOMY, PARTIAL 12/24/2019 - not sure which side Medical History Medical History Date Comments Diabetes mellitus ([facility]) Thyroid disease History of general anesthesia TMJ syndrome Edentulous 12/24/2019 lower Wears dentures full de nture top Patient unable to exercise 2019 - balance issues Exercise involving housework 12/13 - does own cooking as well Hyperlipidemia Hypertension 12/24/2019 well c ontrolled per pt Chest pain 12/24/2019 - with anxiety; to have EKG 12/30/2019 Sleep apnea 12/24/2019 - no l frediger has CPAP, wasn't working properly, was removed and never replaced Diabetes mellitus, type 2 ([facility]) 12/24/2019 cheks daily , usually mid 80's to about 118; had A1c done in November - was good but results not in computer Parathyroid disease ([facility]) 02/2020 pt is not sure if she has parthyroid disease, was on problem list GERD (gastroesophageal reflux disease) 12/24/2019 well controlled 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 quit drinking in 2015 Blood in urine 12/24/2019 - come s and goes, per pt, not known why Cerebral artery occlusion wi th cerebral infarction ([facility]) 12/24/2019 in 2016 or 2017, h ad [...] Immunization (1 of 2 - PCV) 1966 COVID-19 Vaccine ( - 2023- season) 2023 RSV Immunization ( o r 60+ Years) (1 - 1-dose 75+ series) 08/22/2035 Medical Devices Implanted Type Area Credit Control Officer Device Identifier Shelf Expiration Date Model / Serial / Lot Cover Gold Bar Hole Cranial Low Profile W/Tab 0.4x14mm [place] [employer] Iii [id number] - [id number] Implanted:Qty: 2 on 01/05/2020 by Alfonzo Cobb MD at [facility] Plate Implant Right: Brain MARIZA LEIBINGER [id number] / / Plate Bone Cmf Mdface Lp 2h 0.4x12mm [id number] - [id number] Implanted:Qty: 1 on 01/05/2020 by Alfonzo Cobb MD at [facility] Plate Implant Right: Brain MARIZA LEIBINGER [id number] / / Plate Bone Cmf Skull Base Lp [id number] [place] [employer] Ii [id number] - [id number] Implanted:Qty: 1 on 01/05/2020 by Alfonzo Cobb MD at [facility] Plate Implant Right: Brain MARIZA LEIBINGER [id number] / / Screw Bone Cmf Mandib St 1.5x4mm [place] [employer] Iii [id number] - [id number] Implanted:Qty: 11 on 01/05/2020 by Alfonzo Cobb MD at [facility] Screw Implant Right: Brain MARIZA LEIBINGER [id number] / / Duragen 5 X 5cm [id number] - [id number] Implanted:Qty: 1 on 01/05/2020 by Alfonzo Cobb MD at [facility] Tissue Right: Brain [employer] B. White Enterprises[employer] CHEVY 05/14/2022 [id number] / / [id number] Tii Mini 7.5 Curved 7mm [id number] i Safe 1.5t Only Implanted:Qty: 1 on 01/05/2020 by Alfonzo Cobb MD at [facility] Right: Brain [employer] [id number] / / Description:MRI safe to 1.5T ONLY per [email or web address]. MGB 02/03/2020. Insurance MEDICAID O [place] Advance Directives For more information, please contact: [phone] Documents on File Type Date Recorded Patient Customer Development Representative Expl anation Advance Directive 01/05/2020 5:39 [place] [...] the discussion? Not Discusse d Care Teams Nutrition Aides Teacher Relationship Specialty Start Date End Date Grant [place] [address] [address] [place] [address] PCP - General 09/09/19
--- OUTSIDE RECORDS SUMMARY | 2024-04-08 11:12 | XMS_ITS | Encounter Summary ---
[place] [address] Care Team Providers Care Business Performance Manager Name Role Phone Jennie Resendiz MD Primary Care Provider [phone] Reason for Referral * Physical Therapy (Routine) - Closed by system - Referral Specialty Diagnoses / Procedures Referred By Contac t Referred To Contact Physical Therapy Diagnoses Chronic neck pain Dorinda Lira APRN [facility] [place] [address] [facility] [place] [address] Referral ID Status Reason Start Date Expiration Date Visits Requested Visits Authorized [id number] Closed by system - Referral Evaluate and Treat 07/30/2010 01/26/2011 1 1 Reason for Visit * Reason Comments Pain, Chronic Encounter Details Date Type Department Care Team (Late st Contact Info) Description 07/30/2010 3:15 PM EDT Office [place] [address] Dorinda Lira APRN [facility] [place] [address] Chronic neck pain (Primary Dx); [...] today for medical clearance for the Functional Druze program, a graduated exercise program aimed at [...] pain documented in this encounter Care Teams Business Performance Manager Relationship Specialty Start Date End Date Jennie Resendiz MD [address] [place] [address] [facility] [address] [place] [address] PCP - General 03/06/10 08/27/16 documented as of this encounter
--- OUTSIDE RECORDS SUMMARY | 2024-04-08 11:12 | XMS_ITS | Referral Summary ---
Author Organization [facility] Address [address] [place] [address] Care Team Providers Care Accounting Director Name Role Phone Grant Lindsey MD Primary Care Provider [phone] Allergies Active Allergy Reactions Criticality Noted Date [...] (Lactase) 06/25/2018 Neomycin Nausea Only,Rash Medium 06/14/2019 Eqjlgjto-Qcvbvdzznsh-Iq lymyxnb 06/25/2018 Nausea and rash Polymyxin B [...] Problems Problem Noted Date Diagnosed Date Aneurysm ([facility]) 01/05/2020 Headache 12/25/2019 Cerebral aneurysm, nonruptured 12/02/2019 Overview (12/02/2019): Added automatically from request for surgery [id number] Social History Tobacco Use Types Packs/Day Years [...] Index 36.78 10/08/2021 1040 EDT Functional Status * Are you deaf or [...] Author Yes 02/03/2020 20:00 Sonia Segal RN Mental Status * Because of a physical, mental, or emotional condition, do you have serious difficulty concentrating, remembering, or making decisions? (5 years old or older) Answer Entry Date Author No 02/03/2020 20:00 Sonia Segal RN Plan of Treatment Not on file Medical Devices Implanted Type Area Nonprofit Fundraiser Device Identifier Shelf Expiration Date Model / Serial / Lot Cover [place] Hole Cranial Low Profile W/Tab 0.4x14mm [place] [employer] Iii [id number] - [id number] Implanted:Qty: 2 on 01/05/2020 by Alfonzo Cobb MD at [facility] Plate Implant Right: Brain MARIZA Blue Lava TechnologiesBINGER [id number] / / Plate Bone Cmf Mdface Lp 2h 0.4x12mm [id number] - [id number] Implanted:Qty: 1 on 01/05/2020 by Alfonzo Cobb MD at [facility] Plate Implant Right: Brain MARIZA Blue Lava TechnologiesBINGER [id number] / / Plate Bone Cmf Skull Base Lp [id number] [place] [facility] Ii [id number] - [id number] Implanted:Qty: 1 on 01/05/2020 by Alfonzo Cobb MD at [facility] Plate Implant Right: Brain MARIZA LEIBINGER [id number] / / Screw Bone Cmf Mandib St 1.5x4mm [place] [employer] Iii [id number] - [id number] Implanted:Qty: 11 on 01/05/2020 by Alfonzo Cobb MD at [facility] Screw Implant Right: Brain MARIZA LEIBINGER [id number] / / Duragen 5 X 5cm [id number] - [id number] Implanted:Qty: 1 on 01/05/2020 by Alfonzo Cobb MD at [facility] Tissue Right: Brain [employer]ov[employer] CHEVY 05/14/2022 [id number] / / [id number] Tii Mini 7.5 Curved 7mm [id number] i Safe 1.5t Only Implanted:Qty: 1 on 01/05/2020 by Alfonzo Cobb MD at [facility] Right: Brain [place] [id number] / / Description:MRI safe to 1.5T ONLY per MRIStatAce.[email or web address]. MGB 02/03/2020. Insurance MEDICAID O [place] Advance Directives For more information, please contact: [phone] Documents on File Type Date Recorded Patient Instrument Calibrator Expl anation Advance Directive 01/05/2020 5:39 [place] [...] the discussion? Not Discusse d Care Teams Accounting Director Relationship Specialty Start Date End Date Grant Lindsey MD [address] [place] [address] PCP - General 09/09/19
--- OUTSIDE RECORDS SUMMARY | 2024-04-08 11:12 | XMS_ITS | Encounter Summary ---
[place] [address] Care Team Providers Care Manager Material Name Role Phone Jennie Resendiz MD Primary Care Provider Encounter Details Date Type Department Care Team (Late st Contact Info) Description 12/04/2010 Orders [place] [phone] Thony Graham MD Social History Tobacco Use Types Packs/Day [...] PM EDT) 12/04/2010 1:30 PM EDT Narrative DH RAD - 08/19/2013 12:05 PM EDT This is a non-reportable exam. Procedure Note Shaka Choi 08/19/2013 This is a non-reportable exam. Thony Graham MD [facility]RARY ORD ERABLES RAD [id number] [place] [address] documented in this encounter Visit Diagnoses Not on filedocumented in this encounter Care Teams Manager Material Relationship Specialty Start Date End Date Jennie Resendiz MD [facility] [address] [facility] [address] [place] [address] PCP - General 03/06/10 08/27/16 documented as of this encounter
--- OUTSIDE RECORDS SUMMARY | 2024-04-08 11:12 | XMS_ITS | Encounter Summary ---
[place] [address] Care Team Providers Care Cage Tender Name Role Phone Jennie Resendiz MD Primary Care Provider [phone] Reason for Visit * Reason Comments Back Pain Encounter Details Date Type Department Care Team (Late st Contact Info) Description 09/25/2010 2:30 PM EDT Office [place] [phone] Darshan Garsia, PT Jennie Resendiz MD [address] [place] [address] Chronic low back pain (Primary [...] Lumbago documented in this encounter Care Teams Cage Tender Relationship Specialty Start Date End Date Jennie Resendiz MD [address] [place] [address] PCP - General 03/06/10 08/27/16 documented as of this encounter
--- OUTSIDE RECORDS SUMMARY | 2024-04-08 11:12 | XMS_ITS | Encounter Summary ---
Author Organization [facility] Address [address] [place] [address] Care Team Providers Care Classroom Technology Coach Name Role Phone Grant Lindsey MD Primary Care Provider [phone] Reason for Visit * (Routine/Next Available) - Receiving Office to Obtain Authorization Specialty Diagnoses / Procedures Referred By Contac t Referred To Contact Procedures CT OUTSIDE IMAGES NEURO Unknown, Provider, MD Referral ID Status Reason Start Date Expiration Date Visits Requested Visits Authorized [id number] Receiving Office to Obtain Authorization 07/25/2021 1 1 Encounter Details Date Type Department Care Team (Latest Contact Info) Description 07/25/2021 11:16 EDT - 07/25/2021 23:59 EDT Hospital Encounter [facility] Secondary Reads [place] Discharge Disposition: Home [...] Sonia Segal RN documented in this encounter Medications at Time of Discharge acetaminophen (TYLENOL) 325 mg tablet Take 2 [...] by mouth 2 times daily. 01/07/2020 fluticasone propion/salmetero l (ADVAIR DISKUS INHALATION) Inhale 2 Puffs as directed 2 times daily. furosemide (LASIX) 20 mg tablet Take 20 mg by mouth daily. 11/21/2019 gabapentin (NEURONTIN) 800 mg tablet Take 800 mg by mouth 3 times daily. HYDROXYZINE HCL ORAL Take 25 mg by mouth as needed. insulin aspart U-100 (NOVOLOG FLEXPEN) 100 unit/mL injectable penIndications:ty pe 2 diabetes mellitus,increase in units depending on [...] 11:16 EDT This is a non-reportable exam. us Provider Unknown MD MINER OTHER IMAGING ORDERABLES Final Result documented in this encounter Visit Diagnoses Not on filedocumented in this encounter Care Teams Classroom Technology Coach Relationship Specialty Start Date End Date Grant Lindsey MD [address] [place] [address] PCP - General 09/09/19 documented as of this encounter
--- OUTSIDE RECORDS SUMMARY | 2024-04-08 11:12 | XMS_ITS | Encounter Summary ---
Author Organization [facility] [place] [address] Care Team Providers Care Veneer Sample Maker Name Role Phone Jennie Resendiz MD Primary Care Provider [phone] Encounter Details Date Type Department Care Team (Latest Contact Info) Description 01/28/2012 6:38 AM EDT - 01/28/2012 11:59 PM EDT Hospital [place] [id number] CLINIC, Timothy Alvarado MD [facility] [place] [address] Elevated liver function tests Discharge Disposition: Home [...] of : 1960 PCP JENNIE RESENDIZ MD [phone] Time Treatment started: Time Treatment ended: Reason for visit: CT Scan with Contrast. Need for bicarb Protocol Subjective: Kallie Smart offers no complaints. Objective: Lab Data: BUN Date/Time Value Range Status 01/24/12 03:14 PM 12 8-18 (mg/dL) Final Creatinine Date/Time Value Range Status 01/24/12 03:14 PM 0.68* 0.70-1.20 (mg/dL) Final Please note that the pediatric reference intervals supplied above were not validated at [facility]. Results from pediatric patients should be interpreted [...] (home) Telephone Information: PCP JENNIE RESENDIZ MD [phone] Date/Time of call: January 29, 2012/9:41 AM/ [...] Mathew RN - 01/24/2012 4:07 PM EDT [facility] Name: KALLIE SMART Date of : 1960 AGE 51 y.o. Address: [address] [address] (home) Mobile: Telephone Information: Referring Provider: Timothy [...] VIR PROCEDURE NOTE: US-guided liver biopsy ACC#: [id number] Indication: hepatosplenomegaly and elevated LFT's with ETOH [...] 8:16 AM EDT) Surgical Pathology Report ? [facility] ? Provider: ?? HERON MONTES ?Pt. Name: ?? KALLIE SMART ? Acc #: ?[id number] ?Pt. ? Col Date: ?? 01/28/2012 ?/Sex: [...] ? record number, formalin. ? Qty/Size/Weight: ?Five florian-brown needle core biopsies, each ? 0.1 cm in diameter and ranging from 0.8 cm ? to 1.6 cm. ? Sections/Processin g: ??(T1) ??vms/PPS ? ---Clinical Information--- ? Specimen Submitted: ? A - Percutaneous liver biopsy ? [facility] ? Provider: ?? HERON MONTES ?Pt. Name: ?? KALLIE SMART ? Acc #: ?[id number] ?Pt. ? Col Date: ?? 01/28/2012 ?/Sex: ?1960,(51 years),Female ? Rec Date: ?? 01/28/2012 ?LOC: ?3W ? SURGICAL PATHOLOGY ? Clinical History/Diagnosis: ? Elevated LFTs ? cirrhosis CERNER MILLENNIUM 01/28/2012 8:16 AM EDT Heron Montes MD PATHOLOGY/CYTOLOGY O RDERABLES LILLIE MIJARESIUM * IR all biopsy procedures (01/28/2012 8:12 [...] PROCEDURE NOTE: US-guided liver biopsy ?ACC#: ?? [id number] ? Indication: ?? Hepatosplenomegaly and elevated LFTs [...] VIR PROCEDURE NOTE: US-guided liver biopsy ACC#: [id number] Indication: Hepatosplenomegaly and elevated LFTs with ETOH [...] Heron Montes MD PATHOLOGY/CYTOLOGY O RDERABLES [facility] documented in this encounter Visit Diagnoses [...] mg documented in this encounter Care Teams Veneer Sample Maker Relationship Specialty Start Date End Date Jennie Resendiz MD [facility] [address] [place] [address] PCP - General 03/06/10 08/27/16 documented as of this encounter
--- OUTSIDE RECORDS SUMMARY | 2024-04-08 11:12 | XMS_ITS | Encounter Summary ---
Author Organization [facility] Address [address] [place] [address] Care Team Providers Care Marketing Analytics Manager Name Role Phone Grant Lindsey MD Primary Care Provider [phone] Reason for Referral * Referral (Routine) - New Request Specialty Diagnoses / Procedures Referred By [facility] Referred To Contact Diagnoses Nonintractable headache, unspecified chronicity pattern, unspecified headache type Cerebral aneurysm, nonruptured Orin Bassett MD [address] [place] [address] Phone: tel: fax: [facility] [address] [place] [address] Phone: tel: fax: Referral ID Status Reason Start Date Expiration Date Visits Requested Visits Authorized [id number] New Request Specialty Services Required 0 1 1 Question Answer I certify that this patient is under my care and that I, or another Medicare allowed practitioner (DO KATH, GEETA) working with me, had a swwg-pi-anlp encounter with this patient on this date: 02/04/2020 I further certify that the abgn-ke-hfqv encounter was in whole or in part related to the reason the patient needs home health care. Yes The discharge summary or progress note will provide further details that support the need for the home health services and the plan of care. Yes Enter the allowed practitioner (, DO, GEETA) who will provide oversight of this patient's home heatlh care needs and plan of care [place] The patient? s homebound status is related [...] Training, Equipment Recommendations Social Work Referral: Assess Group Home Planning Needs, Eval Psychosocial Factors Impeding Progress [...] 16:21 EDT - 02/04/2020 14:16 EDT Emergency [facility] Neurosurgery Unit [address] [place] [address] [id number] Jed Boyd MD 111 [facility], [facility] [address] [place] [address] Antoine Castaneda MD 111 [facility], [facility] [address] [place] [address] Nonintractable headache, unspecified chronicity pattern, unspecified headache type (Primary Dx); Cerebral aneurysm, nonruptured Discharge Disposition: Home-Health Care Svc Social History Tobacco Use Types Packs/Day Years [...] EDT documented in this encounter Functional Status * Are you deaf or do you have serious difficulty hearing? Answer Date of Assessment Author No 02/03/2020 20:00 EDT Sonia Tan, RN * Are you blind or do [...] Sonia Segal RN documented in this encounter Discharge Summaries * Orin Bassett [...] [address] Cobb who presents to [facility] ED for uncontrolled right sidedheadache and [...] Upset ??? Lactose Intolerance (Lactase) ??? Neosporin [Oijlncrc-Krlamatszeb-Pgpouyirf] Nausea and rash There is no immunization [...] another Medicare authorized non-physician practitioner (PA or HARNESS TIER) or resident working with me, had a scmw-gg-rqfq encounter with this patient on this date: 02/04/2020 I further certify that the dbhm-qz-baui encounter was in whole or in part related to the reason thepatient needs home health care.: Yes The patient has had a isjf-qi-pebq visit by me or one of my [...] Training Equipment Recommendations Social Work Referral: Assess Computer Tape Librarian Planning Needs Eval Psychosocial Factors Impeding Progress Towards Medical Plan of Care Assess Need for Choices of Care Discuss Advance Directives Develop Interventions Toward Resolutions of Psychosocial Problems Authorizing Provider: Orin Bassett MD Amb Consult/Follow Up Neurosurgery Reason for Request: routine fu sp obs admission; headache Authorizing Provider: Orin Bassett MD ERIN D'AGOSTINO, MD 02/04/2020 10:50 Cosigned by Antoine Castaneda MD at 02/04/2020 16:28 EDT documented in this encounter Medications at Time [...] Disposition Code Departure Means Destination Home-Health Care [facility] Home documented in this encounter Progress Notes * Bran Turner, PT - 02/04/2020 1416 EDT [facility] Rehabilitation Therapy Acute Therapy [facility] Discontinue/Discharge Note Date: 02/04/2020 SUBJECTIVE: [...] goals discontinued. PLAN: Discontinue physical therapy. Bran Turner, PT 02/04/2020 14:32 * Alessandra Cook - 02/04/2020 1104 EDT Initial Case Management/Social Work Assessment and Discharge Plan/Readmission Risk Assessment REASON FOR ADMISSION: Nonintractable headache, unspecified chronicity pattern, unspecified headachetype Patient understands reason for admission: Yes PATIENT CONTACT INFO VERIFIED: Yes Asiya Weston (daughter) Mo Smart (brother) Estefani Veloz (sister) [phone] PATIENT ADDRESS VERIFIED: Type of housing (single family, condo, apartment, retirement, single room occupancy, [facility] funded hotel room, group assisted) - apartment Who does the patient live with? Alone Does the patient have access to their own bedroom/bathroom/kitchen - or is it shared with others? Yes Name of housing complex (ex [place] [facility], [facility], etc)- NA Housing Authority/Managing Organization -NA Community Care Providers (case monitor, [facility] nurse, etc) name and contact information- NA LIVING ARRANGEMENTS AND ACCESSIBILITY ISSUES: Living Arrangements: Alone, Apartment Levels: 1 Stairs to enter: 0 Handicap access: Grab bars Bathroom located on bedroom level?: Yes What in home social supports are available to the patient? Family member(s) Is 24/7 care available? No ADVANCED DIRECTIVES, POA &/or COLST IN PLACE: Healthcare Directive: Yes, patient has advance directive for healthcare treatment Type of Healthcare Directive: Health care treatment directive Copy in Chart: Yes, previous copy on file @ [facility] DIRECTIVES FOR FINANCES: Directive For Finances: No TRANSPORTATION: Transportation: Medicaid/MedicareTransport [place], Family CULTURAL, YARSANISM and/or LANGUAGE factors affecting health care/discharge planning: [...] Home Health PT. Patient is aware. Reviewed [place] [facility] Choice list and patient chose [facility]. This worker called and made referral for Home Health PT and SW services. Patient is being discharged today. Patient's sister will provide ride. CM will continue to follow and assist with discharge. ANNE POLLARD CM #[id number] 02/04/2020 11:04 * Bran Turner, PT - 02/04/2020 6530 EDT [facility] Rehabilitation Therapy Acute Therapies [facility] Physical Therapy Initial Evaluation Note Date [...] [R51.9] Headache [R51.9] The patient lives at [address] [place] [id number] HPI per MD note dated 02/03/20: Kallie Smart is a [...] ??? Cerebral artery occlusion with cerebral infarction ([facility]) 12/24/2019 in 2016 or 2017, had dysphasia and left side weakness and paralysis - gone now ??? Chest pain 12/24/2019 - with anxiety; to have EKG 12/30/2019 ??? Cirrhosis (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 quit drinking in 2016 ??? Depression ??? Diabetes mellitus ([facility]) ??? Diabetes mellitus, type 2 ([facility]) 12/24/2019 cheks daily , usually mid 80's [...] REPORT EXAM: CT HEAD WO CONTRAST 02/03/20 0669 1. ??Hypoattenuation of the right vertebral peduncle [...] Left Upper Extremity: grossly >=3/5 with moderate dragline engineer Right Upper Extremity: grossly >=3/5 with moderate dragline engineer Cervical Spine: Not formally evaluated but grossly [...] but patient reports increased pain in right orthodoxy Head turn to left, no increase in [...] provided by physical therapist and/or physical therapist advertising assistant manager when medically appropriate. Frequency: daily for 2-3 [...] other consults recommended at this time Pager: [phone] Bran Turner PT 02/04/2020 7:40 * Jayden Eng MD [...] (C5, 6) 5/5 Tricep (C6, 7) 5/5 Software Recruiter (C8) 5/5 UE Strength - RIGHT Deltoid (C5) 5/5 Bicep (C5, 6) 5/5 Tricep (C6, 7) 5/5 Software Recruiter (C8) 5/5 Sensation intact in bilateral upper [...] (L4/L5/S1 distributions) Incision clean/dry/intact Labs/ Recent Labs 02/03/201744 WBC 4.52 HGB 10.1* HCT 30.1* PLT 90* Recent Labs 02/03/201744 NA 141 K 3.9 CL 102 CO2 27 BUN 7* CREATININE 0.61 Recent Labs 10/22/20 1745 TROPONINI <0.034 Recent Labs 02/03/20 1745 [...] Eng MD Neurosurgery resident 02/04/2020 4:26 Page [id number] with questions documented in this encounter H&P Notes * Tj Sheffield MD - 02/03/2020 7535 EDT Neurosurgery H&P Problems/ Right sided Headaches [...] intractable headache, unspecified headache type ??? Aneurysm ([facility]) ROS: A 10 point ROS was completed [...] Upset ??? Lactose Intolerance (Lactase) ??? Neosporin [Zradxkrj-Bqcqurbebsj-Pwnecevkg] Nausea and rash MEDS: (Not in a [...] (C5, 6) 5/5 Tricep (C6, 7) 5/5 Software Recruiter (C8) 5/5 Interrosei (T1) 5/5 Ext. Carpi Radialis (C6) 5/5 Wrist flexor (C7) 5/5 UE Strength - RIGHT Deltoid (C4,C5) 5/5 Bicep (C5, 6) 5/5 Tricep (C6, 7) 5/5 Software Recruiter (C8) 5/5 Interrosei (T1) 5/5 Ext. Carpi [...] SHEFFIELD MD Neurosurgery resident 02/03/2020 18:59 Page 1653 with questions Cosigned by Antoine Castaneda MD at 02/04/2020 16:28 EDT documented in this encounter ED Notes * Luis A Arias - 02/03/2020 1904 EDT TCALL: KALLIE SMART. 5.10.61. PT REFERRED BY OUT PT NEURO SURGERY FOR NOT DOING WELL S/P CRANIOTOMY ON JAN 04. (JML) * Hoa Harvey MA - 02/03/2020 1745 [...] exam for emergent medical conditions at the [facility] on 02/03/2020 Scribe attestation: This documentation is [...] with patient. Report called to Dennise at [facility]. R: Patient verbalized understanding of discharge instructions and denied further questions. Pt. Left via wheelchair with patient support. JOSIE CHERRY RN 02/04/2020 14:19 * Plan of Care - Lara Calderon RN - 02/03/2020 2253 EDT Data: Pt admitted to [place] [id number] with intractable headache. Action: Assessment completed. Pt [...] 158(H) 70 - 100 mg/dL 02/04/2020 10:54 EDT [facility]ORATORY application trainer ID [id number] 02/04/2020 10:54 EDT [facility] SERVICES HN LAB POC COMMENT (GLUCOSE) Test Performed by Nursing Services 02/04/2020 10:54 EDT [facility] Blood CAPILLARY BLOOD / Unknown 02/04/2020 10:53 EDT 02/04/2020 10:54 EDT us Antoine Castaneda MD POINT OF CARE TEST ORDERABL ES Final Result [facility] [address] [place] [id number] * (ABNORMAL) COMPLETE BLOOD COUNT AND DIFFERENTIAL (02/04/2020 7:51 EDT) WBC 3.27(L) 4.00 - 12.40 K/cmm 02/04/2020 8:34 EDT [facility] RBC 3.63(L) 3.86 - 5.04 M/cmm 02/04/2020 8:34 EDT [facility] Hemoglobin 10.5(L) 11.6 - 15.2 gm/dL 02/04/2020 8:34 EDT [facility] HCT 30.9(L) 34.9 - 44.4 % 02/04/2020 8:34 [facility] MCV 85 81 - 98 fl 02/04/2020 8:34 [facility] MCH 28.9 26.7 - 33.3 pg 02/04/2020 8:34 [facility] MCHC 34.0 32.1 - 35.9 gm/dL 02/04/2020 8:34 [facility] RDW-CV 14.3 <14.7 % 02/04/2020 8:34 [facility] RDW-SD 43.9 <50.4 fl 02/04/2020 8:34 [facility] PLT 84(L) 141 - 377 K/cmm 02/04/2020 8:34 [facility] MPV 10.0 9.5 - 12.7 fl 02/04/2020 8:34 [facility] % Neutrophils 55.4 % 02/04/2020 8:34 [facility] % Lymphocytes 32.4 % 02/04/2020 8:34 [facility] % Monocytes 7.3 % 02/04/2020 8:34 [facility] % Eosinophils 4.0 % 02/04/2020 8:34 [facility] % Basophils 0.3 % 02/04/2020 8:34 [facility] % Immature Grans 0.6 % 02/04/20 20 8:34 [facility] Absolute Neutrophils 1.81(L) 2.20 - 8.85 K/cmm 02/04/2020 8:34 [facility] Absolute Lymphocytes 1.06(L) 1.09 - 3.30 K/cmm 02/04/2020 8:34 [facility] Absolute Monocytes 0.24 0.10 - 0.80 K/cmm 02/04/2020 8:34 [facility] Absolute Eosinophils 0.13 0.03 - 0.61 K/cmm 02/04/2020 8:34 [facility] ABS Basophils 0.01 0.01 - 0.11 K/cmm 02/04/2020 8:34 EDT [facility] Absolute Immature Grans 0.02 0.00 - 0.06 K/cmm 02/04/2020 8:34 EDT [facility] Type of Differential: Auto 02/04/2020 8:34 EDT [facility] Blood VENOUS BLOOD / Unknown Venipuncture / Unknown 02/04/2020 7:51 EDT 02/04/2020 8:25 EDT Jayden Eng MD PACKAGES & DNA PROBE OR DERABLES Final Result Performing Organization Address [facility] Co de Phone Number [facility] [address] [place] [address] * CREATININE (02/04/2020 7:51 EDT) Creatinine 0.59 0.52 - 1.04 mg/dL 02/04/2020 8:57 EDT [facility] eGFR 101 >60 mL/min/1.7 3m2 02/04/2020 8:57 EDT [facility] Comment:eGFR calculated farhana g CKD-EPI equation for non- Americans. Multiply eGFR by 1.16 for patients. Blood VENOUS BLOOD / Unknown Venipuncture / Unknown 02/04/2020 7:51 EDT 02/04/2020 8:20 EDT Jayden Eng MD CHEMISTRY & BLOOD GAS O RDERABLES Final Result [facility] [address] [place] [address] * (ABNORMAL) BUN (02/04/2020 7:51 EDT) BUN 5(L) 10 - 26 mg/dL 02/04/2020 8:57 EDT [facility] Blood VENOUS BLOOD / Unknown Venipuncture / Unknown 02/04/2020 7:51 EDT 02/04/2020 8:20 EDT Jayden Eng MD CHEMISTRY & BLOOD GAS O RDERABLES Final Result Performing Organization Address City/[facility]/ZIP Co de Phone Number [facility] [address] [place] [address] * ELECTROLYTES (02/04/2020 7:51 EDT) Sodium 141 136 - 145 mEq/L 02/04/2020 8:57 EDT [facility] Potassium 4.1 3.5 - 5.0 mEq/L 02/04/2020 8:57 EDT [facility] Chloride 102 96 - 110 mEq/L 02/04/2020 8:57 EDT [facility] CO2 Total 23 22 - 32 mEq/L 02/04/2020 8:57 EDT [facility] Blood VENOUS BLOOD / Unknown Venipuncture / Unknown 02/04/2020 7:51 EDT 02/04/2020 8:20 EDT Jayden Eng MD CHEMISTRY & BLOOD GAS O RDERABLES Final Result Performing Organization Address [facility] Co de Phone Number [facility] [address] [place] [address] * PROTIME (02/04/2020 7:51 EDT) I.N.R. 1.1 0.9 - 1.1 Ratio 02/04/2020 8:53 EDT [facility] Pro Time 13.1 10.3 - 13.4 secs 02/04/2020 8:53 EDT [facility] Blood VENOUS BLOOD / Unknown Venipuncture / Unknown 02/04/2020 7:51 EDT 02/04/2020 8:26 EDT Narrative [facility] - 02/04/2020 8:53 EDT Moderate Intensity Coumadin INR = 2.0-3.0 Adjustments in anticoagulant therapy dose should be based on the INR and NOT on the Protime. us Jayden Eng MD HEMATOLOGY & PF4 ORDERA BLES Final Result [facility] [address] [place] [address] * PTT (02/04/2020 7:51 EDT) PTT 34 26 - 37 secs 02/04/2020 8:53 EDT [facility] Blood VENOUS BLOOD / Unknown Venipuncture / Unknown 02/04/2020 7:51 EDT 02/04/2020 8:26 EDT us Jayden Eng MD HEMATOLOGY & PF4 ORDERA BLES Final Result Performing Organization Address City/[facility]/ZIP Co de Phone Number [facility] [address] [place] [address] * MAGNESIUM (02/04/2020 7:51 EDT) Magnesium 1.9 1.7 - 2.8 mg/dL 02/04/2020 8:57 EDT [facility] Blood VENOUS BLOOD / Unknown Venipuncture / Unknown 02/04/2020 7:51 EDT 02/04/2020 8:20 EDT us Jayden Eng MD CHEMISTRY & BLOOD GAS O RDERABLES Final Result Performing Organization Address [facility] Co de Phone Number [facility] [address] [place] [address] * CALCIUM (02/04/2020 7:51 EDT) Calcium 9.3 8.5 - 10.5 mg/dL 02/04/2020 8:57 EDT [facility] Calculated Calcium 9.1 8.5 - 10.5 mg/dL 02/04/2020 8:57 EDT [facility] Blood VENOUS BLOOD / Unknown Venipuncture / Unknown 02/04/2020 7:51 EDT 02/04/2020 8:20 EDT us Jayden Eng MD CHEMISTRY & BLOOD GAS O RDERABLES Final Result [facility] [address] [place] [address] * MR HEAD WO CONTRAST (02/04/2020 0:20 [...] and CTA head and neck 720 from [facility]. FINDINGS: PARENCHYMA: No infarction. No [...] andagree with the findings. Jayden Eng MD IMG MRI ORDERABLES Tahmina l Result * (ABNORMAL) POCT GLUCOSE, INTERFACED (02/03/2020 21:41 EDT) [facility] Glucose, POC 165(H) 70 - 100 mg/dL 02/03/2020 21:41 EDT [facility] application trainer ID [id number] 02/03/2020 21:41 EDT [facility] HN LAB POC COMMENT (GLUCOSE) Test Performed by Nursing Services 02/03/2020 21:41 EDT [facility] Blood CAPILLARY BLOOD / Unknown 02/03/2020 21:41 EDT 02/03/2020 21:41 EDT Jayden Eng MD POINT OF CARE TEST GABRIEL SHINE Final Result [facility] [address] [place] [id number] * TYPE AND SCREEN (02/03/2020 20:52 EDT) ABO O 02/03/2020 21:40 EDT [facility] Rh Factor Positive 02/03/2020 21:40 EDT [facility] Antibody Screen Negative 02/03/2020 21:40 EDT [facility] Specimen Expires: 02/06/2020 @ 23:59 02/03/2020 21:40 EDT [facility] Blood VENOUS BLOOD / Unknown Venipuncture / Unknown 02/03/2020 20:52 EDT 02/03/2020 20:59 EDT Jayden Eng MD BLOOD BANK TESTS Edited Result - Final Performing Organization Address [facility]/ZIP Co de Phone Number [facility] [address] [facility] [place] [address] * HN LAB CBC SMEAR REVIEW (02/03/2020 17:45 EDT) Pathologist [facility] Differential Comment Slide was examined by a technologist to verify the WBC and/or platelet count. 02/03/2020 18:32 EDT [facility] Blood VENOUS BLOOD / Unknown Venipuncture / Unknown 02/03/2020 17:45 EDT 02/03/2020 17:48 EDT Jed Boyd MD HEMATOLOGY & PF4 ORDERABLES Final Result Performing Organization Address [facility] Co de Phone Number [facility] [address] [place] [address] * TROPONIN I (02/03/2020 17:45 EDT) Troponin I (ng/mL) <0.034 <0.034 ng/mL 02/03/2020 18:23 EDT [facility] Blood VENOUS BLOOD / Unknown Venipuncture / Unknown 02/03/2020 17:45 EDT 02/03/2020 17:48 EDT Narrative [facility] - 02/03/2020 18:23 EDT The results of this assay can be falsely lowered due to the consumption of Biotin. Jed Boyd MD CHEMISTRY & BLOOD GAS ORDER [place] Final Result Performing Organization Address [facility]/ZIP Co de Phone Number [facility] [address] [place] [address] * PTT (02/03/2020 17:45 EDT) PTT 32 26 - 37 secs 02/03/2020 18:33 EDT [facility] Blood VENOUS BLOOD / Unknown Venipuncture / Unknown 02/03/2020 17:45 EDT 02/03/2020 17:48 EDT Jed Boyd MD HEMATOLOGY & PF4 ORDERABLES Final Result Performing Organization Address [facility] de Phone Number [facility] [address] [place] [address] * PROTIME (02/03/2020 17:45 EDT) I.N.R. 1.1 0.9 - 1.1 Ratio 02/03/2020 18:33 EDT [facility] Pro Time 12.3 10.3 - 13.4 secs 02/03/2020 18:33 EDT [facility] Blood VENOUS BLOOD / Unknown Venipuncture / Unknown 02/03/2020 17:45 EDT 02/03/2020 17:48 EDT Narrative [facility] - 02/03/2020 18:33 EDT Moderate Intensity Coumadin INR = 2.0-3.0 Adjustments in anticoagulant therapy dose should be based on the INR and NOT on the Protime. Jed Boyd MD HEMATOLOGY & PF4 ORDERABLES Final Result Performing Organization Address [facility] de Phone Number [facility] [address] [place] [address] * (ABNORMAL) BASIC METABOLIC PANEL (BMP) (02/03/2020 17:45 EDT) Sodium 141 136 - 145 mEq/L 02/03/2020 18:13 EDT [facility] Potassium 3.9 3.5 - 5.0 mEq/L 02/03/2020 18:13 EDT [facility] Comment:Slight hemolysis colt ntified, interpret with caution as hemolysis will elevate potassium result. Chloride 102 96 - 110 mEq/L 02/03/2020 18:13 EDT [facility] CO2 Total 27 22 - 32 mEq/L 02/03/2020 18:13 [facility] Glucose 105(H) 70 - 100 mg/dL 02/03/2020 18:13 [facility] Calcium 9.4 8.5 - 10.5 mg/dL 02/03/2020 18:13 [facility] [facility] Calculated Calcium 9.0 8.5 - 10.5 mg/dL 02/03/2020 18:13 [facility] Comment:Slight hemolysis colt ntified, interpret with caution as results may be affected due to hemolysis. BUN 7(L) 10 - 26 mg/dL 02/03/2020 18:13 [facility] Comment: Slight hemolysis identified, interpret with caution as results may be affected due to hemolysis. Creatinine 0.61 0.52 - 1.04 mg/dL 02/03/2020 18:13 [facility] eGFR 100 >60 mL/min/1.7 3m2 02/03/2020 18:13 [facility] Comment:eGFR calculated farhana mcclendon CKD-EPI equation for non- Americans. Multiply eGFR by 1.16 for patients. Blood VENOUS BLOOD / Unknown Venipuncture / Unknown 02/03/2020 17:45 EDT 02/03/2020 17:48 EDT us Jed Boyd MD CHEMISTRY & BLOOD GAS ORDER [place] Final Result [facility] [address] [place] [address] * (ABNORMAL) COMPLETE BLOOD COUNT AND DIFFERENTIAL (02/03/2020 17:45 EDT) WBC 4.52 4.00 - 12.40 K/cmm 02/03/2020 18:32 [facility] RBC 3.54(L) 3.86 - 5.04 M/cmm 02/03/2020 18:32 [facility] Hemoglobin 10.1(L) 11.6 - 15.2 gm/dL 02/03/2020 18:32 [facility] HCT 30.1(L) 34.9 - 44.4 % 02/03/2020 18:32 [facility] MCV 85 81 - 98 fl 02/03/2020 18:32 [facility] MCH 28.5 26.7 - 33.3 pg 02/03/2020 18:32 [facility] MCHC 33.6 32.1 - 35.9 gm/dL 02/03/2020 18:32 [facility] RDW-CV 14.0 <14.7 % 02/03/2020 18:32 [facility] RDW-SD 43.4 <50.4 fl 02/03/2020 18:32 [facility] PLT 90(L) 141 - 377 K/cmm 02/03/2020 18:32 [facility] MPV 10.2 9.5 - 12.7 fl 02/03/2020 18:32 [facility] % Neutrophils 53.8 % 02/03/2020 18:32 [facility] % Lymphocytes 33.8 % 02/03/2020 18:32 [facility] % Monocytes 8.0 % 02/03/2020 18:32 [facility] % Eosinophils 3.3 % 02/03/2020 18:32 [facility] % Basophils 0.4 % 02/03/2020 18:32 [facility] % Immature Grans 0.7 % 02/03/20 20 18:32 [facility] Absolute Neutrophils 2.43 2.20 - 8.85 K/cmm 02/03/2020 18:32 [facility] Absolute Lymphocytes 1.53 1.09 - 3.30 K/cmm 02/03/2020 18:32 [facility] Absolute Monocytes 0.36 0.10 - 0.80 K/cmm 02/03/2020 18:32 [facility] Absolute Eosinophils 0.15 0.03 - 0.61 K/cmm 02/03/2020 18:32 [facility] ABS Basophils 0.02 0.01 - 0.11 K/cmm 02/03/2020 18:32 EDT [facility] Absolute Immature Grans 0.03 0.00 - 0.06 K/cmm 02/03/2020 18:32 EDT [facility] Type of Differential: Auto 02/03/2020 18:32 EDT [facility] Blood VENOUS BLOOD / Unknown Venipuncture / Unknown 02/03/2020 17:45 EDT 02/03/2020 17:48 EDT us Jed Boyd MD PACKAGES & DNA PROBE ORDERA BLES Final Result [facility] [address] [place] [address] * CT HEAD WO CONTRAST (02/03/2020 17:16 [...] findings. Jed Boyd MD IMG CT ORDERABLES Final Res ult documented in this encounter Visit Diagnoses Diagnosis [...] may reflect changes made after this encounter. omeprazole (PRILOSEC) 20 mg capsule Take 20 [...] Calderon RN) 0830 (Given - Provider: Josie Cherry RN) ascorbic acid (vitamin C) (VITAMIN C) [...] Koki 02/03/20 at 2115, Until Discontinued, Routine 2147 (Not Given - Provider: Lara Calderon RN - Reason: Order parameters not met - Comment: not on unit when meds ordered) 0831 (Given - Provider: Josie Cherry RN) fluticasone propion-salmeteroL (ADVAIR) 100-50 mcg/dose diskus inhaler 1 Puff 1 Puff, inhalation, 2 TIMES DAILY, First dose on Fri02/03/20 at 211, Until Discontinued 2152 (Given - Provider: Lara [...] First dose on Fri02/03/20 at 2114, Until Discontinued, Routine 2147 (Given - Provider: Lara Calderon RN - Comment: not on unit when meds ordered) 0830 (Given - Provider: Josie Cherry RN) mirtazapine (REMERON) tablet 15 mg 15 mg, oral, AT BEDTIME, First dose on Fri02/03/20 at 2114, Until Discontinued, Routine 2147 (Given - Provider: Lara Calderon RN - Comment: not on unit when meds ordered) Multivitamins with Minerals tablet 1 Tab 1 Tablet, oral, DAILY, First dose on Fri02/03/20 at 1915, Until Discontinued, Routine, Release 2147 (Given - Provider: Lara Calderon RN - Comment: not on unit when meds ordered) 0831 (Given - Provider: Josie Cherry RN) pantoprazole (PROTONIX) tablet 40 mg 40 mg, oral, 2 TIMES DAILY, First dose on Koki 02/03/20 at 2115, Until Discontinued, Routine 2147 (Given - Provider: Lara Calderon RN - Comment: not on unit when meds ordered) 0831 (Given - Provider: Josie Cherry RN) risperiDONE (RISPERDAL) tablet 0.5 mg 0.5 mg, oral, AT BEDTIME, First dose on Koki 02/03/20 at 2115, Until Discontinued, Routine 2323 (Given - Provider: Lara Calderon RN) senna (SENOKOT) tablet 1 Tab 1 Tablet, oral, 2 TIMES DAILY, First dose on Koki 02/03/20 at 2115, Until Discontinued, Routine 2147 (Not Given - [...] Koki 02/03/20 at 1915, Last dose on 02/05/20 at 0900, Routine, Release 2147 (Given - Provider: Lara Calderon RN - Comment: not on unit when meds ordered) 0831 (Given - Provider: Josie Cherry RN) PRN Medication Order 02/02/2020 02/03/2020 02/04/2020 acetaminophen (TYLENOL) tablet 650 mg 650 mg, oral, EVERY 4 HOURS PRN, Starting on Fri02/04/20 at 0130, Until Fri02/04/20 at 1616, Pain, Routine bisacodyL (DULCOLAX) suppository 10 mg 10 mg, rectal, EVERY 48 HOURS PRN, Starting on 02/05/20 at 0000, Until Fri02/04/20 at 1616, Constipation, Routine, Release calcium carbonate [...] Starting on Koki 02/03/20 at 2147, Until Fri02/03/20 at 2324, Anxiety, prior to MRI, Routine 2324 (Given - Provider: Lara Calderon RN) ondansetron (PF) (ZOFRAN) injection 4 mg 4 mg, intravenous, EVERY 4 HOURS PRN, Starting on Koki 02/03/20 at 1908, Until Fri02/04/20 at 1616, Nausea, Routine, Release No Frequency Medication Order 02/02/2020 02/03/2020 02/04/2020 acetaminophen (TYLENOL) 500 mg tablet 1 dose, Starting on Fri02/03/20 at 1925, Until Fri02/04/20 at 1616 Linked Groups Order Group 1: [...] 01/13 documented in this encounter Care Teams Marketing Analytics Manager Relationship Specialty Start Date End Date Grant Lindsey MD [address] [place] [address] PCP - General 09/09/19 documented as of this encounter
--- OUTSIDE RECORDS SUMMARY | 2024-04-08 11:12 | XMS_ITS | Encounter Summary ---
Author Organization [facility] Address [address] [place] [address] Care Team Providers Care Editing Internship Name Role Phone Grant Lindsey MD Primary Care Provider [phone] Reason for Visit * Reason Comments Follow-up Aneurysm * Consult (Routine) - Authorization Not Required Specialty Diagnoses / Procedures [facility] Diagnoses Cerebral aneurysm, nonruptured Deborah Hills MD [address] [facility] [address] Phone: tel: fax: Alfonzo Cobb MD Phone: tel: fax: Referral ID Status Reason Start Date Expiration Date Visits Requested Visits Authorized [id number] Authorization Not Required 1 1 Encounter Details Date Type Department Care Team (Late st Contact Info) Description 10/08/2021 10:45 EDT Office Visit [facility] Neurosurgery - [facility] [address] [place] [address] Alfonzo Cobb MD [address] [facility], [address] [place] [id number] Cerebral aneurysm, nonruptured (Primary Dx) Social History [...] Sonia Tan RN documented in this encounter Progress Notes * Alfonzo Cobb MD - 10/08/2021 1045 EDT This office note has been dictated. I spent total of 15 minutes on the date of this encounter meeting with this patient and reviewing documentation/coordinating care as described in the dictated note. * Alfonzo Cobb MD - 10/08/2021 1045 EDT [facility] NEUROLOGICAL SURGERY PROGRESS / FOLLOWUP NOTE - 10/08/[address] Lindsey: I had the opportunity of seeing your patient, Kallie Darling, back in my neurosurgery office at [facility] on 10/08/2021. She previously underwent craniotomy for [...] Alfonzo Cobb MD / AM Dictation ID: [id number] cc: Grant Lindsey MD, [facility], [address] [place] [id number] documented in this encounter Plan of Treatment Not on file documented as of this encounter Visit Diagnoses Diagnosis Cerebral aneurysm, nonruptured- Primary documented in this encounter Care Teams Editing Internship Relationship Specialty Start Date End Date Grant Lindsey MD [address] [place] [id number] PCP - General 09/09/19 documented as of this encounter
--- OUTSIDE RECORDS SUMMARY | 2024-04-08 11:12 | XMS_ITS | Encounter Summary ---
[place] [address] Care Team Providers Care Security Developer Name Role Phone Jennie Resendiz MD Primary Care Provider [phone] Reason for Visit * Reason Comments GI Problem Encounter Details Date Type Department Care Team (Late st Contact Info) Description 01/24/2012 1:00 PM EDT Office [place] [id number] Leisa Woodard APRN Elevated liver function tests (Primary Dx); Hematuria [...] this encounter Progress Notes * Leisa Woodard, CRYPTOGRAPHER - 01/24/2012 4:48 PM EDT Subjective: Patient ID: Kallie Smart is a 51 y.o. female. HPI Ms. Smart is a 51 year old white female seen today at [facility] in consultation for hepatosplenomegaly on [...] Surgical History Procedure Date ??? Knee arthroscopy 2001 left ??? Hysterectomy 1979 ??? Hand surgery [...] next week. Disabled. 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 Last time worked was 2005.Has [...] She admits that she is having cravings. Ihannette advised that she seek counseling either at [...] 3:14 PM EDT Elevated liver function tests [id number] Routine 01/24/2012 3 :14 PM EDT Elevated [...] PROCEDURE NOTE: US-guided liver biopsy ?ACC#: ?? [id number] ? Indication: ?? Hepatosplenomegaly and elevated LFTs [...] VIR PROCEDURE NOTE: US-guided liver biopsy ACC#: [id number] Indication: Hepatosplenomegaly and elevated LFTs with ETOH [...] ; {CR} ; {CR} Zeferino Paul MD IMG IR ORDERABLES * Urine culture Clean Catch Urine (01/24/2012 3:17 PM EDT) Urine Culture ? Patient Name: KALLIE SMART ?Ordered By: ZEFERINO PAUL ? MR#: [id number] ?LOC: ??4L ? /Sex: ??1960 (51 years), ? Female ? PROCEDURE: Urine Culture ?SOURCE: U CC ? COLLECTED: 01/24/2012 15:17 ? STARTED: 01/24/2012 15:39 ? FINAL REPORT ? Final Report ? Verified: 012 14:54 ? 10,000-49,000 cfu/ml mixed mucosal shanna ? Note: Multiple bacterial morphotypes present. Suggest appropriate ? recollection with timely delivery to ? the laboratory, if clinically significant. ? LILLIE MIJARESIUM Urine specimen obtained by clean catch procedure (specimen) 01/24/2012 3:17 PM EDT 01/24/2012 3:39 PM EDT Narrative Resulting Agency Comment Spec In Lab Zeferino Paul MD MICROBIOLOGY - [facility] ORDERABLES [facility] * (ABNORMAL) Urinalysis without microscopic (01/24/2012 3:17 PM EDT) Pathologist [facility] Glucose, Urine Dipstick Negative Negative mg/dL CERNER [...] Urine Dipstick Hazy(A) Clear CERNER MILLENNIUM Specific Munith Urine Automated 1.013 1.002 - 1.030 CERNER MILLENNIUM Color, Urine Dipstick Yellow Yellow CERNER MILLENNIUM Urine specimen (specimen) 01/24/2012 3:17 PM EDT 01/24/2012 3:22 PM EDT Narrative Resulting Agency Comment Spec In Lab Zeferino Paul MD [facility]INE [facility]ABLES [facility] * DNA ANTIBODY (DOUBLE-STRANDED) (01/24/2012 3:14 PM EDT) Pathologist [facility] DNA Ab (DS) Neg Neg [facility] MILLENNIUM Blood specimen (specimen) 01/24/2012 3:14 PM EDT 01/27/2012 8:22 AM EDT Narrative Resulting Agency Comment Spec In Lab Zeferino Paul MD LAB SEND OUT ORDERA BLES [facility] * DIFFERENTIAL, AUTOMATED (01/24/2012 3:14 PM EDT) Pathologist [facility] Neutrophil % 53.4 34.0 - 71.0 % [facility] MILLENNIUM Neutrophil Absolute 3.27 1.50 - 6.30 [...] EDT Zeferino Paul MD HEMATOLOGY ORDERABL ES LILLIE HUIZAR * .A1AT GENOTYPE (01/24/2012 3:14 PM EDT) [...] resulting in the S phenotype ([id number]:c.863 A>T; [id number]) and the Z phenotype (c. 1096G>A; [id number]) are amplified and genotyped by two separate [...] determined by the Molecular Pathology Laboratory at [facility]. This test is used for clinical purposes and should not be considered as investigational or for research purposes. ??It has not been cleared or approved by the U.S. Food and Drug Administration. However, as a CLIA licensed laboratory, our facility is approved for such high-complexity clinical testing. L[facility]IE [facility] Comment: [VERIFIED DATE]01.31.12 Verified By:Marybel Maier MD Pathologist (Electronic Signature) Blood specimen (specimen) 01/24/2012 3:14 PM EDT 01/27/2012 8:52 AM EDT Narrative Resulting Agency Comment Spec In Lab Zeferino Paul MD CHEMISTRY ORDERABLE S [facility] * HFE MUT (01/24/2012 3:14 PM EDT) [...] gene (C282Y and H63D) are analyzed using [employer] pre-developed assays for SNP detection on an [employer]aff[employer] Digital 7500 Sequence Detection System. DNA is isolated [...] determined by the Molecular Pathology Laboratory at [facility]. This test is used for clinical purposes and should not be considered as investigational or for research purposes. ??It has not been cleared or approved by the U.S. Food and Drug Administration. However, as a C.L.I.A. licensed laboratory, our facility is approved for such high complexity clinical testing. [facility] Comment: [VERIFIED DATE]01.31.12 Verified By:Marybel Maier MD Pathologist (Electronic Signature) Blood specimen (specimen) 01/24/2012 3:14 PM EDT 01/27/2012 8:52 AM EDT Narrative Resulting Agency Comment Spec In Lab Zeferino Paul MD HEMATOLOGY ORDERABL ES [facility] * Hemoglobin A1c (01/24/2012 3:14 PM EDT) Hemoglobin A1c 5.7 4.3 - 6.1 % [facility] Estimated Average Glucose 117 mg/dL [facility] Comment: eAG equivalents for HbA1c [...] into estimated average glucose values. ??Diabetes Care 2008:31(8):3445-5599. Blood specimen (specimen) 01/24/2012 3:14 PM EDT 01/24/2012 3:22 PM EDT Narrative Resulting Agency Comment Spec In Lab Zeferino Paul MD CHEMISTRY ORDERABLE S Performing Organization Address [facility] de Phone Number [facility] * Tissue transglutaminase, IgA (01/24/2012 3:14 PM EDT) TTG IgA Ab <4.0 <=3.9 u/ml [facility] Comment: Result Interpretation: Negative: ?<4 U/mL Weak Positive: ??4-10 U/mL Positive: ?>10 U/mL Blood specimen (specimen) 01/24/2012 3:14 PM EDT 01/27/2012 8:29 AM EDT Narrative Resulting Agency Comment Spec In Lab Zeferino Paul MD IMMUNOLOGY ORDERABL ES Performing Organization Address [facility] de Phone Number [facility] * Ceruloplasmin (01/24/2012 3:14 PM EDT) Pathologist [facility] Ceruloplasmin 31.4 16.0 - 45.0 mg/dL [facility] Comment: Test Performed by: [place] [id number] Radio Equipment Installer: Gisselle Cortez, Ph.D. Blood specimen (specimen) 01/24/2012 3:14 PM EDT 01/24/2012 4:13 PM EDT Narrative Resulting Agency Comment Spec In Lab Zeferino Paul MD CHEMISTRY ORDERABLE S Performing Organization Address [facility] de Phone Number [facility] * A1AT Serum Concentration (01/24/2012 3:14 PM EDT) A1AT 167 100 - 190 mg/dL C[facility]ER MILLENNIUM Comment: Test Performed by: [facility] [place] [id number] Radio Equipment Installer: Gisselle Cortez, Ph.D. Blood specimen (specimen) 01/24/2012 3:14 PM EDT 01/24/2012 4:13 PM EDT Narrative Resulting Agency Comment Spec In Lab Zeferino Paul MD CHEMISTRY ORDERABLE S [facility] MILLENNIUM * Iron and TIBC (01/24/2012 3:14 PM EDT) Pathologist [facility] Iron 72 30 - 150 mcg/dL CERNER MILLENNIUM TIBC 274 250 - 450 mcg/dL [facility] MILLENNIUM Iron Saturation 26 20 - 50 % [facility] MILLENNIUM Blood specimen (specimen) 01/24/2012 3:14 PM EDT 01/24/2012 3:22 PM EDT Narrative Resulting Agency Comment Spec In Lab Zeferino Paul MD CHEMISTRY ORDERABLE S C[facility]YLIE ROBERTSONENNIUM * (ABNORMAL) Ferritin (01/24/2012 3:14 PM EDT) Pathologist [facility] Ferritin 428(H) 30 - 400 ng/mL CERNER MILLENNIUM Comment: Pediatric reference ranges not verified at [facility], interpret with caution. Reference ranges for females greater than 50 years of age approach values for men, i.e., 30-400 ng/mL. Blood specimen (specimen) 01/24/2012 3:14 PM EDT 01/24/2012 3:22 PM EDT Narrative Resulting Agency Comment Spec In Lab Zeferino Paul MD CHEMISTRY ORDERABLE S [facility] * Smooth Muscle Antibody (01/24/2012 3:14 PM EDT) Pathologist [facility] Sm Muscle Ab (AUGUST) Negative Negative [facility]ER MILLENNIUM Comment: Test Performed by: [place] [address] Radio Equipment Installer: Kevin Blackburn III, M.D. Blood specimen (specimen) 01/24/2012 3:14 PM EDT 01/24/2012 4:14 PM EDT Narrative Resulting Agency Comment Spec In Lab Zeferino Paul MD LAB SEND OUT ORDERA BLES Performing Organization Address [facility]/ZIP Co de Phone Number [facility] * Mitochondrial Antibody, M2 (01/24/2012 3:14 PM EDT) Pathologist [facility] Mitochon Ab (AUGUST) <0.1 <0.1 (Negative) U [facility] Comment: Test Performed by: [place] [address] Radio Equipment Installer: Kevin Blackburn III, M.D. Blood specimen (specimen) 01/24/2012 3:14 PM EDT 01/24/2012 4:14 PM EDT Narrative Resulting Agency Comment Spec In Lab Zeferino Paul MD LAB SEND OUT ORDERA BLES Performing Organization Address [facility] Co de Phone Number [facility] * IgA (01/24/2012 3:14 PM EDT) IgA 94 70 - 400 mg/dL [facility] Blood specimen (specimen) 01/24/2012 3:14 PM EDT 01/24/2012 3:22 PM EDT Narrative Resulting Agency Comment Spec In Lab Zeferino Paul MD CHEMISTRY ORDERABLE S Performing Organization Address [facility]/ZIP Co de Phone Number [facility] * (ABNORMAL) IgG (01/24/2012 3:14 PM EDT) Pathologist [facility] Immunoglobulin G 678(L) 700 - 1600 mg/dL [facility] Blood specimen (specimen) 01/24/2012 3:14 PM EDT 01/24/2012 3:22 PM EDT Narrative Resulting Agency Comment Spec In Lab Zeferino Paul MD CHEMISTRY ORDERABLE S Performing Organization Address [facility] Co de Phone Number [facility] * IgM (01/24/2012 3:14 PM EDT) IgM 99 40 - 230 mg/dL [facility] Blood specimen (specimen) 01/24/2012 3:14 PM EDT 01/24/2012 3:22 PM EDT Narrative Resulting Agency Comment Spec In Lab Zeferino Paul MD CHEMISTRY ORDERABLE S Performing Organization Address [facility] Co de Phone Number [facility] * (ABNORMAL) RUTHY (01/24/2012 3:14 PM EDT) RUTHY Pos(A) Neg [facility] Comment: 1:80 Titer seen with Homogeneous/Diffuse pattern. ??Is suggestive of autoantibodies to nDNA, histones, or DNA-associated proteins. Blood specimen (specimen) 01/24/2012 3:14 PM EDT 01/27/2012 8:22 AM EDT Narrative Resulting Agency Comment Spec In Lab Zeferino Paul MD LAB SEND OUT ORDERA BLES Performing Organization Address [facility] Co de Phone Number [facility] * AFP tumor marker (01/24/2012 3:14 PM EDT) Alpha Fetoprotein 2 <=5 ng/mL [facility] Comment: Note new Reference Range as of 12-23-2011. Reference: Immulite 2000 AFP package insert ([id number], 2009-01-05) Blood specimen (specimen) 01/24/2012 3:14 PM EDT 01/27/2012 8:29 AM EDT Narrative Resulting Agency Comment Spec In Lab Zeferino Paul MD CHEMISTRY ORDERABLE S Performing Organization Address [facility] de Phone Number CERRYLIE ROBERTSONENNIUM * (ABNORMAL) TSH (01/24/2012 3:14 PM EDT) Thyroid Stimulating Hormone 4.23(H) 0.27 - 4.20 mcIU/mL CERNER MILLENNIUM Blood specimen (specimen) 01/24/2012 3:14 PM EDT 01/24/2012 3:22 PM EDT Narrative Resulting Agency Comment Spec In Lab Zeferino Paul MD CHEMISTRY ORDERABLE S Performing Organization Address [facility] de Phone Number [facility]YL[facility] ROBERTSONENNI[facility] * Prothrombin Time (01/24/2012 3:14 PM EDT) Prothrombin Time 14.1 11.9 - 14.7 sec CERNER MILLENNIUM Comment: [facility] Transfusion Committee Guidelines: INR less [...] MD HEMATOLOGY ORDERABL ES Performing Organization Address [facility] Phone Number CERRYLIE ROBERTSONENNIUM * (ABNORMAL) Comprehensive metabolic panel (non-fasting) (01/24/2012 3:14 PM EDT) Glucose 112 60 - 199 mg/dL [facility] MILL[facility] Comment:Diabetes: >=200 mg/d L plus symptoms Blood Urea Nitrogen 12 8 - 18 mg/dL [facility] M[facility] Creatinine 0.68(L) 0.70 - 1.20 mg/dL [facility] MILLENNIUM Comment: Please note that the pediatric reference intervals supplied above were not validated at [facility]. Results from pediatric patients should be interpreted [...] http://www.kidney.org/professionals/kls/pdf/faq_gfr.pdf Yayo K, Linda NA, Nicole AK, Rboert TS, Tammy AD, Ramez ANTONIO. Relative performance of the MDRD and CKD-EPI equations for estimating glomerular filtration rate among patients with varied clinical presentations. Clin J Am Soc Nephrol;6:1963-72. Blood specimen (specimen) 01/24/2012 3:14 PM EDT 01/24/2012 3:22 PM EDT Narrative Resulting Agency Comment Spec In Lab Zeferino Paul MD CHEMISTRY ORDERABLE S [facility] Moov cc.IUM * (ABNORMAL) CBC (with Diff) (01/24/2012 3:14 [...] Platelet Volume 9.6 9.0 - 12.0 fL CERRYLIE MILLENNIUM Blood specimen (specimen) 01/24/2012 3:14 PM EDT 01/24/2012 3:22 PM EDT Narrative Resulting Agency Comment Spec In Lab Zeferino Paul MD HEMATOLOGY ORDERABL ES LILLIE HUIZAR documented in this encounter Visit Diagnoses Diagnosis Elevated liver function tests- Primary Other abnormal blood chemistry Hematuria Hematuria, unspecified Elevated liver function tests Other abnormal blood chemistry documented in this encounter Care Teams Security Developer Relationship Specialty Start Date End Date Jennie Resendiz MD [address] [place] [address] PCP - General 03/06/10 08/27/16 documented as of this encounter
--- OUTSIDE RECORDS SUMMARY | 2024-04-08 11:12 | XMS_ITS | Encounter Summary ---
Author Organization [facility] Address [address] [place] [address] Care Team Providers Care Regional Operations Manager Name Role Phone Grant Lindsey MD Primary Care Provider [phone] Encounter Details Date Type Department Care Team (Late st Contact Info) Description 06/25/2021 Lab Requisition [facility] Pathology & Laboratory Medicine - [facility] [address] [place] [address] Outr Resulting Lab, Provider Social History Tobacco [...] 4th Generation Negative Negative 06/26/2021 10:03 EDT [facility] Comment:If acute HIV-1 infec tion is suspected in a high risk patient, submit plasma specimen for HIV-1 RNA quantitation test. Blood VENOUS BLOOD / Unknown 06/25/2021 11:20 EDT 06/25/2021 20:54 EDT Narrative [facility] - 06/26/2021 10:03 EDT Fourth Generation assay performed on the Siemens Centaur XPT. us Provider Outr Resulting Lab IMMUNOLOGY AND SEROL OGY ORDERABLES Final Result [facility] [address] [place] [address] documented in this encounter Visit Diagnoses Not on filedocumented in this encounter Care Teams Regional Operations Manager Relationship Specialty Start Date End Date Grant Lindsey MD [facility] [place] [address] PCP - General 09/09/19 documented as of this encounter
--- OUTSIDE RECORDS SUMMARY | 2024-04-08 11:12 | XMS_ITS | Encounter Summary ---
[place] [address] Care Team Providers Care Garage Door Installer Name Role Phone Jennie Resendiz MD Primary Care Provider [phone] Encounter Details Date Type Department Care Team (Latest Contact Info) Description 10/09/2010 4:34 PM EDT - 10/09/2010 11:59 PM EDT [place] [id number] CLINIC, DR [facility] Wyman, Romulo Keller MD LBP (low back pain) Discharge Disposition: Home [...] Lumbago documented in this encounter Care Teams Garage Door Installer Relationship Specialty Start Date End Date Jennie Resendiz MD [facility] [address] [place] [address] PCP - General 03/06/10 08/27/16 documented as of this encounter
--- OUTSIDE RECORDS SUMMARY | 2024-04-08 11:12 | XMS_ITS | Encounter Summary ---
Author Organization [facility] [place] [address] Care Team Providers Care Jacquard Loom Card Changer Name Role Phone Jennie Resendiz MD Primary Care Provider [phone] Encounter Details Date Type Department Care Team (Late st Contact Info) Description 07/27/2010 [place] [address] Dorinda Lira, SERVICE REPRESENTATIVE [facility] [place] [address] Social History Tobacco Use Types Packs/Day Years Used Date Smoking Tobacco: Never Assessed Sex and Gender Information Value Date Recorded Sex Assigned at Not on file Gender Identity Not on file Sexual Orientation Not on file documented as of this encounter Plan of Treatment Not on file documented as of this encounter Visit Diagnoses Not on filedocumented in this encounter Care Teams Jacquard Loom Card Changer Relationship Specialty Start Date End Date Jennie Resendiz MD [address] [place], [place] [id number] PCP - General 03/06/10 08/27/16 documented as of this encounter
--- OUTSIDE RECORDS SUMMARY | 2024-04-08 11:13 | XMS_ITS | Encounter Summary ---
Author Organization [facility] Address [address] [place] [address] Care Team Providers Care Cane Feeder Name Role Phone Grant Lindsey MD Primary Care Provider [phone] Encounter Details Date Type Department Care Team (Late st Contact Info) Description 12/31/2019 Lab Requisition [facility] Pathology & Laboratory Medicine - [facility] [address] [place] [address] Outr Resulting Lab, Provider Social History Tobacco [...] rt-PCR Result NEGATIVE Negative 01/01/2020 16:10 EDT [facility] Comment: 2019-novel Coronavirus (2019-nCoV) [...] in accordance with CLIA regulations, [employer] (CAP) guidelines (Jul 01, 2019), and FDA guidance (Jun 12, 2019). This test is only for use under the Food and Drug Administration's Emergency Use Authorization. Swab ENTIRE NASOPHARYNX / Unknown 12/31/2019 10:48 EDT 12/31/2019 21:28 EDT us Provider Outr Resulting Lab MICROBIOLOGY - GENER AL ORDERABLES Final Result [facility] [place] * COVID-19 TESTING (12/31/2019 10:48 EDT) Pathologist [facility] COVID-19 rt-PCR Result NEGATIVE Negative 01/01/2020 17:42 EDT [facility] Comment: 2019-novel Coronavirus (2019-nCoV) not detected [...] in accordance with CLIA regulations, [employer] (CAP) guidelines (Jul 01, 2019), and FDA guidance (Jun 12, 2019). This test is only for use under the Food and Drug Administration's Emergency Use Authorization. Performing Lab [employer] [place] 01/01/2020 17:42 EDT [facility] Swab 12/31/2019 10:4 8 EDT 12/31/2019 21:28 EDT us Provider Outr Resulting Lab MICROBIOLOGY - GENER AL ORDERABLES Final Result [facility] [address] [place] [address] [facility] [place] documented in this encounter Visit Diagnoses Not on filedocumented in this encounter Care Teams Cane Feeder Relationship Specialty Start Date End Date Grant Lindsey MD [address] [place], [place] [id number] PCP - General 09/09/19 documented as of this encounter
--- OUTSIDE RECORDS SUMMARY | 2024-04-08 11:13 | XMS_ITS | Encounter Summary ---
Author Organization [facility] Address [address] [place] [address] Care Team Providers Care Mastic Man Name Role Phone Grant Lindsey MD Primary Care Provider [phone] Reason for Visit * Auth/Cert Specialty Diagnoses / Procedures Referred By Nicol sparks Referred To Contact Diagnoses Cerebral aneurysm, nonruptured Procedures [place] ANEURYSM, INTRACRAN, SIMPLE SURG Right craniotomy for surgical clipping of right middle cerebral aneurysm Referral ID Status Reason Start Date Expiration Date Visits Re quested Visits Authorized [id number] 1 1 Encounter Details Date Type Department Care Team (Late st Contact Info) Description 01/05/2020 5:35 EDT - 01/07/2020 10:16 EDT Hospital Encounter [facility] Surgical Intensive Care Unit [address] [place] [address] Alfonzo Cobb MD [address] [facility], [address] [place] [address] Cerebral aneurysm, nonruptured (Primary Dx) [...] documented in this encounter Functional Status * Because of a physical, mental, or emotional condition, does this person have difficulty doing errands alone such as visiting a doctor's office or shopping? Answer Date of Assessment Author No 06/11/2019 11:28 EST documented as of this encounter Mental Status * Because of a physical, mental, or emotional condition, does this person have serious difficulty concentrating, remembering, or making decisions? Answer Entry Date Author No 11/02/2019 14:43 EDT documented in this encounter Discharge Summaries [...] 12/02/2019 Added automatically from request for surgery [id number] ??? Aneurysm ([facility]) 01/05/2020 Resolved Hospital Problems No resolved problems to display. Principal Procedure: Right craniotomy for surgical clipping of right MCA aneurysm (Dr. 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 Lactose Intolerance (Lactase) ??? Neosporin [Beegrjjo-Gzdvlsqtpdy-Iqwizarcl] Nausea and rash There is no immunization [...] 10:00 Telemedicine Visit with Amber Lawrence PA-C [facility] Neurosurgery - [facility] (--) [facility] [address] Follow-up appointments and procedures Amb Consult/Follow Up Neurosurgery Reason for Request: fu aneurysm clipping 1mo Authorizing Provider: Orin Bassett MD ERIN D'AGOSTINO, MD 01/07/2020 21:26 Cosigned by Alfonzo Cobb MD at 01/08/2020 11:33 EDT documented in this encounter Medications at [...] by mouth 2 times daily. 01/07/2020 fluticasone propion/salmeter ol (ADVAIR DISKUS INHALATION) Inhale 2 Puffs as directed 2 times daily. furosemide (LASIX) 20 mg tablet Take 20 mg by mouth daily. 11/21/2019 gabapentin (NEURONTIN) 800 mg tablet Take 800 mg by mouth 3 times daily. HYDROXYZINE HCL ORAL Take 25 mg by mouth as needed. insulin aspart U-100 (NOVOLOG FLEXPEN) 100 unit/mL injectable penIndications:t ype 2 diabetes mellitus,increas e in units depending on sugar reading Inject [...] of this encounter Ordered Prescriptions Prescription Sig Dispense Quantity Refills Last Filled Start Date End Date senna (SENOKOT) 8.6 mg tablet Take 1 Tab by mouth 2 times daily. 01/07/2020 oxyCODONE (ROXICODONE) 5 mg immediate release tablet Take 1 Tab by mouth every 4 hours as needed for Pain (discomfort) . 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 I reviewed the patient's history and exam with the Neurosurgery Resident. I agree with the findings, assessment and treatment plan as documented in the resident's note. Doing well BT * Phylicia Johnson, RT - 01/05/2020 1445 EDT Respiratory Consult/Progress [...] speech, hyperparathyroidism, and SOCORRO who presented to [facility] ED on 12/24 with 4 days of [...] x7 days Neurosurgery resident 01/04/2020 9:35 Page 2553 with questions * Dona Gastelum RN - [...] Notes * Kyra Salas DO - 01/05/2020 6626 EDT The preoperative history and physical which [...] skin changes Kyra Salas DO 01/05/2020 7:28 Cosigned by Alfonzo Cobb MD at 01/06/2020 16:21 EDT Source Note - DISTRICT MANAGER IN TRAINING, SCAN 2 - 01/04/2020 16:15 EDT documented [...] aneurysm. 5. Intraoperative neurophysiological monitoring. EQUIPMENT USED: AbraResto 7 mm curved aneurysm clip, [id number]. INDICATIONS: [...] intraoperatively. Her head was fixed in the Pingree 3-point headrest and turned about 45 degrees [...] one over the frontal bone. Dura stripped. Baldomero holes connected with the craniotome. Free bone flap was removed. The Eco-Vacay QD8 was then used to drill down the sphenoid ridge to allow exposure to the basal cisterns. Dura was opened and hinged anteriorly. Thus, the frontal and temporal lobes were exposed. A [employer] self-retaining retractor system was put in place. [...] open. We also used IC-Green to confirm [id number] patent and the aneurysm closed. Papaverine was [...] case.. Alfonzo Cobb MD / CF Confirmation: [id number] Dictation ID: [id number] cc: Alfonzo Cobb MD, [facility] - Neurosurgery, [address] [place] [address] Kyra Salas DO, [facility] - House Staff Mail, [address] [place] [address] Grant Lindsey MD, [facility], [address] [place] [address] documented in this encounter Miscellaneous Notes * Plan of Care - Orin Menchaca RN - 01/06/2020 4031 EDT Problem: High Fall Risk: Goal: Patient will Remain Free of Falls due to Med. Side Effects Note: D: Patient is a fall risk per fall scale. 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 Plan is to go to CT Head [...] put out 100mL since OR arrival. Paged ROB [email or web address] that drain is not holding suction - awaiting response. * Brief Op Note - Kyra Salas DO - 01/05/2020 1221 EDT Neurosurgery Brief Op Note Surgeon: Alfonzo Cobb MD Glue Bone Crusher: Antoine Castaneda MD & Kyra Salas DO [...] x7 days Kyra Salas DO Neurosurgery Pager [phone] * PAT Note - Sherry Martin DO [...] EDT Cerebral aneurysm, nonruptured Special Needs Neuroanesthesia, IOLo - Dr. Serrano confirmed 12/02/19. Nuvasive confirmed via email 12/04/19. Confirmation #: [id number] TYPE AND SCREEN STAT 01/05/2020 7:10 EDT POCT GLUCOSE, INTERFACED Routine 01/05/2020 7:06 EDT ECG REPORT - SCANNED 01/04/2020 16:15 EDT documented in this encounter Results * PROCEDURE REPORTS - SCANNED (02/08/2020 9:02 EDT) 02/08/2020 9:02 EDT us Scan 2 Heavy Duty Mechanic PROCEDURE/MINOR SURGICAL OR DERABLES Final Result * (ABNORMAL) POCT GLUCOSE, INTERFACED (01/07/2020 8:14 EDT) Glucose, POC 209(H) 70 - 100 mg/dL 01/07/2020 8:19 EDT [facility] general passenger agent ID [id number] 01/07/2020 8:19 EDT [facility] HN LAB POC COMMENT (GLUCOSE) Test Performed by Nursing Services 01/07/2020 8:19 EDT [facility] Blood CAPILLARY BLOOD / Unknown 01/07/2020 8:14 EDT 01/07/2020 8:19 EDT us Kyra Salas DO POINT OF CARE TEST ORDERABL ES Final Result [facility] [address] [place] [address] * (ABNORMAL) COMPLETE BLOOD COUNT AND DIFFERENTIAL (01/07/2020 3:40 EDT) WBC 7.23 4.00 - 12.40 K/cmm 01/07/2020 4:25 EDT [facility] RBC 3.44(L) 3.86 - 5.04 M/cmm 01/07/2020 4:25 [facility] Hemoglobin 10.0(L) 11.6 - 15.2 gm/dL 01/07/2020 4:25 [facility] HCT 30.1(L) 34.9 - 44.4 % 01/07/2020 4:25 [facility] MCV 88 81 - 98 fl 01/07/2020 4:25 [facility] MCH 29.1 26.7 - 33.3 pg 01/07/2020 4:25 [facility] MCHC 33.2 32.1 - 35.9 gm/dL 01/07/2020 4:25 [facility] RDW-CV 14.6 <14.7 % 01/07/2020 4:25 [facility] RDW-SD 45.7 <50.4 fl 01/07/2020 4:25 [facility] PLT 111(L) 141 - 377 K/cmm 01/07/2020 4:25 [facility] MPV 9.6 9.5 - 12.7 fl 01/07/2020 4:25 [facility] % Neutrophils 71.5 % 01/07/2020 4:25 [facility] % Lymphocytes 19.1 % 01/07/2020 4:25 [facility] % Monocytes 7.3 % 01/07/2020 4:25 [facility] % Eosinophils 0.3 % 01/07/2020 4:25 [facility] % Basophils 0.3 % 01/07/2020 4:25 [facility] % Immature Grans 1.5 % 01/07/20 20 4:25 [facility] Absolute Neutrophils 5.17 2.20 - 8.85 K/cmm 01/07/2020 4:25 [facility] Absolute Lymphocytes 1.38 1.09 - 3.30 K/cmm 01/07/2020 4:25 [facility] Absolute Monocytes 0.53 0.10 - 0.80 K/cmm 01/07/2020 4:25 [facility] Absolute Eosinophils 0.02(L) 0.03 - 0.61 K/cmm 01/07/2020 4:25 [facility] ABS Basophils 0.02 0.01 - 0.11 K/cmm 01/07/2020 4:25 [facility] Absolute Immature Grans 0.11(H) 0.00 - 0.06 K/cmm 01/07/2020 4:25 [facility] Type of Differential: Auto 01/07/2020 4:25 [facility] Blood VENOUS BLOOD / Unknown Venipuncture / Unknown 01/07/2020 3:40 EDT 01/07/2020 4:16 EDT us Kyra Salas DO PACKAGES & DNA PROBE ORDERA BLES Final Result Performing Organization Address City/[facility]/ZIP Co de Phone Number [facility] [address] [place] [address] * CREATININE (01/07/2020 3:40 EDT) Creatinine 0.68 0.52 - 1.04 mg/dL 01/07/2020 5:11 EDT [facility] eGFR 96 >60 mL/min/1.7 3m2 01/07/2020 5:11 EDT [facility] Comment:eGFR calculated farhana mcclendon CKD-EPI equation for non- Americans. Multiply eGFR by 1.16 for patients. Blood VENOUS BLOOD / Unknown Venipuncture / Unknown 01/07/2020 3:40 EDT 01/07/2020 4:45 EDT us Kyra Salas DO CHEMISTRY & BLOOD GAS ORDER W[place] Final Result Performing Organization Address [facility]/ZIP Co de Phone Number [facility] [address] [place] [address] * BUN (01/07/2020 3:40 EDT) BUN 17 10 - 26 mg/dL 01/07/2020 5:11 EDT [facility] Blood VENOUS BLOOD / Unknown Venipuncture / Unknown 01/07/2020 3:40 EDT 01/07/2020 4:45 EDT us Kyra Mare Salas DO CHEMISTRY & BLOOD GAS ORDER WINSTON Final Result [facility] [address] [place] [address] * ELECTROLYTES (01/07/2020 3:40 EDT) Sodium 141 136 - 145 mEq/L 01/07/2020 5:11 EDT [facility] Potassium 4.5 3.5 - 5.0 mEq/L 01/07/2020 5:11 EDT [facility] Chloride 101 96 - 110 mEq/L 01/07/2020 5:11 EDT [facility] CO2 Total 27 22 - 32 mEq/L 01/07/2020 5:11 EDT [facility] Blood VENOUS BLOOD / Unknown Venipuncture / Unknown 01/07/2020 3:40 EDT 01/07/2020 4:45 EDT us Kyra Salas DO CHEMISTRY & BLOOD GAS ORDER WINSTON Final Result Performing Organization Address City/[facility]/ZIP Co de Phone Number [facility] [address] [place] [address] * (ABNORMAL) POCT GLUCOSE, INTERFACED (01/06/2020 21:06 EDT) Glucose, POC 166(H) 70 - 100 mg/dL 01/06/2020 21:11 EDT [facility] general passenger agent ID [id number] 01/06/2020 21:11 EDT [facility] HN LAB POC COMMENT (GLUCOSE) Test Performed by Nursing Services 01/06/2020 21:11 EDT [facility] Blood CAPILLARY BLOOD / Unknown 01/06/2020 21:06 EDT 01/06/2020 21:11 EDT us Kyra Salas DO POINT OF CARE TEST ORDERABL ES Final Result [facility] [address] [place] [address] * (ABNORMAL) POCT GLUCOSE, INTERFACED (01/06/2020 16:47 EDT) Glucose, POC 169(H) 70 - 100 mg/dL 01/06/2020 16:51 EDT [facility] general passenger agent ID [id number] 01/06/2020 16:51 EDT [facility] HN LAB POC COMMENT (GLUCOSE) Test Performed by Nursing Services 01/06/2020 16:51 EDT [facility] Blood CAPILLARY BLOOD / Unknown 01/06/2020 16:47 EDT 01/06/2020 16:51 EDT us Kyra Salas DO POINT OF CARE TEST ORDERABL ES Final Result Performing Organization Address [facility] de Phone Number [facility] [address] [place] [address] * (ABNORMAL) POCT GLUCOSE, INTERFACED (01/06/2020 11:33 EDT) Glucose, POC 177(H) 70 - 100 mg/dL 01/06/2020 11:38 EDT [facility] general passenger agent ID [id number] 01/06/2020 11:38 EDT [facility] HN LAB POC COMMENT (GLUCOSE) Test Performed by Nursing Services 01/06/2020 11:38 EDT [facility] Blood CAPILLARY BLOOD / Unknown 01/06/2020 11:33 EDT 01/06/2020 11:38 EDT Alfonzo Cobb MD POINT OF CARE TEST ORDERABL ES Final Result Performing Organization Address [facility] de Phone Number [facility] [address] [place] [address] * (ABNORMAL) POCT GLUCOSE, INTERFACED (01/06/2020 7:29 EDT) Glucose, POC 145(H) 70 - 100 mg/dL 01/06/2020 19:51 EDT [facility] general passenger agent ID [id number] 01/06/2020 19:51 EDT [facility] HN LAB POC COMMENT (GLUCOSE) Test Performed by Nursing Services 01/06/2020 19:51 EDT [facility] Blood CAPILLARY BLOOD / Unknown 01/06/2020 7:29 EDT 01/06/2020 19:51 EDT us Kyra Salas DO POINT OF CARE TEST ORDERABL ES Final Result Performing Organization Address [facility] Co de Phone Number [facility] [address] [place] [address] * (ABNORMAL) COMPLETE BLOOD COUNT AND DIFFERENTIAL (01/06/2020 4:00 EDT) WBC 8.77 4.00 - 12.40 K/cmm 01/06/2020 4:19 [facility] RBC 3.49(L) 3.86 - 5.04 M/cmm 01/06/2020 4:19 [facility] Hemoglobin 10.0(L) 11.6 - 15.2 gm/dL 01/06/2020 4:19 [facility] HCT 29.8(L) 34.9 - 44.4 % 01/06/2020 4:19 [facility] MCV 85 81 - 98 fl 01/06/2020 4:19 [facility] MCH 28.7 26.7 - 33.3 pg 01/06/2020 4:19 [facility] MCHC 33.6 32.1 - 35.9 gm/dL 01/06/2020 4:19 [facility] RDW-CV 14.4 <14.7 % 01/06/2020 4:19 [facility] RDW-SD 44.2 <50.4 fl 01/06/2020 4:19 [facility] PLT 114(L) 141 - 377 K/cmm 01/06/2020 4:19 [facility] MPV 9.4(L) 9.5 - 12.7 fl 01/06/2020 4:19 [facility] % Neutrophils 83.4 % 01/06/2020 4:19 [facility] % Lymphocytes 10.4 % 01/06/2020 4:19 [facility] % Monocytes 4.8 % 01/06/2020 4:19 [facility] % Eosinophils 0.1 % 01/06/2020 4:19 [facility] % Basophils 0.2 % 01/06/2020 4:19 [facility] % Immature Grans 1.1 % 01/06/20 20 4:19 EDT [facility] Absolute Neutrophils 7.31 2.20 - 8.85 K/cmm 01/06/2020 4:19 T [facility] Absolute Lymphocytes 0.91(L) 1.09 - 3.30 K/cmm 01/06/2020 4:19 T [facility] Absolute Monocytes 0.42 0.10 - 0.80 K/cmm 01/06/2020 4:19 T [facility] Absolute Eosinophils 0.01(L) 0.03 - 0.61 K/cmm 01/06/2020 4:19 [facility] ABS Basophils 0.02 0.01 - 0.11 K/cmm 01/06/2020 4:19 T [facility] Absolute Immature Grans 0.10(H) 0.00 - 0.06 K/cmm 01/06/2020 4:19 [facility] Type of Differential: Auto 01/06/2020 4:19 [facility] Blood VENOUS BLOOD / Unknown Venipuncture / Unknown 01/06/2020 4:00 EDT 01/06/2020 4:05 EDT us Kyra Salas DO PACKAGES & DNA PROBE ORDERA BLES Final Result [facility] [address] [place] [address] * CREATININE (01/06/2020 4:00 EDT) Creatinine 0.61 0.52 - 1.04 mg/dL 01/06/2020 4:26 EDT [facility] eGFR 100 >60 mL/min/1.7 3m2 01/06/2020 4:26 T [facility] Comment:eGFR calculated farhana mcclendon CKD-EPI equation for non- Americans. Multiply eGFR by 1.16 for patients. Blood VENOUS BLOOD / Unknown Venipuncture / Unknown 01/06/2020 4:00 EDT 01/06/2020 4:05 EDT us Kyra Salas DO CHEMISTRY & BLOOD GAS ORDER WINSTON Final Result [facility] [address] [place] [address] * BUN (01/06/2020 4:00 EDT) BUN 13 10 - 26 mg/dL 01/06/2020 4:26 EDT [facility] Blood VENOUS BLOOD / Unknown Venipuncture / Unknown 01/06/2020 4:00 EDT 01/06/2020 4:05 EDT us Kyra Salas DO CHEMISTRY & BLOOD GAS ORDER WINSTON Final Result Performing Organization Address [facility] de Phone Number [facility] [address] [place] [address] * ELECTROLYTES (01/06/2020 4:00 EDT) Sodium 141 136 - 145 mEq/L 01/06/2020 4:26 EDT [facility] Potassium 4.5 3.5 - 5.0 mEq/L 01/06/2020 4:26 EDT [facility] Chloride 104 96 - 110 mEq/L 01/06/2020 4:26 EDT [facility] CO2 Total 25 22 - 32 mEq/L 01/06/2020 4:26 EDT [facility] Blood VENOUS BLOOD / Unknown Venipuncture / Unknown 01/06/2020 4:00 EDT 01/06/2020 4:05 EDT us Kyra Salas DO CHEMISTRY & BLOOD GAS ORDER WINST[place] Final Result Performing Organization Address City/[facility]/ZIP Co de Phone Number [facility] [address] [place] [address] * (ABNORMAL) POCT GLUCOSE, INTERFACED (01/05/2020 20:32 EDT) Glucose, POC 218(H) 70 - 100 mg/dL 01/05/2020 20:37 EDT [facility] general passenger agent ID [id number] 01/05/2020 20:37 EDT [facility] HN LAB POC COMMENT (GLUCOSE) Test Performed by Nursing Services 01/05/2020 20:37 EDT [facility] Blood CAPILLARY BLOOD / Unknown 01/05/2020 20:32 EDT 01/05/2020 20:37 EDT us Kyra Salas DO POINT OF CARE TEST ORDERABL ES Final Result [facility] [address] [place] [address] * CT HEAD WO CONTRAST (01/05/2020 18:13 [...] the above interpretation andagree with the findings. us Kyra Salas DO IMG CT ORDERABLES Final Res ult * (ABNORMAL) POCT GLUCOSE, INTERFACED (01/05/2020 16:42 EDT) Glucose, POC 197(H) 70 - 100 mg/dL 01/05/2020 16:46 EDT [facility] general passenger agent ID [id number] 01/05/2020 16:46 EDT [facility] HN LAB POC COMMENT (GLUCOSE) Test Performed by Nursing Services 01/05/2020 16:46 EDT [facility] Blood CAPILLARY BLOOD / Unknown 01/05/2020 16:42 EDT 01/05/2020 16:46 EDT us Kyra Salas DO POINT OF CARE TEST ORDERABL ES Final Result Performing Organization Address [facility]/ZIP Co de Phone Number [facility] [address] [place] [address] * (ABNORMAL) POCT GLUCOSE, INTERFACED (01/05/2020 12:42 EDT) Glucose, POC 179(H) 70 - 100 mg/dL 01/05/2020 12:46 EDT [facility] general passenger agent ID [id number] 01/05/2020 12:46 EDT [facility] HN LAB POC COMMENT (GLUCOSE) Test Performed by Nursing Services 01/05/2020 12:46 EDT [facility] Blood CAPILLARY BLOOD / Unknown 01/05/2020 12:42 EDT 01/05/2020 12:46 EDT us Alfonzo Cobb MD POINT OF CARE TEST ORDERABL ES Final Result Performing Organization Address City/[facility] Co de Phone Number [facility] [address] [place] [address] * (ABNORMAL) POCT BLOOD GAS, CG8 I-STAT (01/05/2020 9:53 EDT) iSTAT pH 7.39 7.35 - 7.45 01/05/2020 9:58 EDT [facility] iSTAT pCO2 37 35 - 45 mmHg 01/05/2020 9:58 EDT [facility] i-STAT pO2 68(L) 80 - 105 mmHg 01/05/2020 9:58 EDT [facility] iSTAT TCO2 23 23 - 27 mmol/L 01/05/2020 9:58 EDT [facility] i-STAT O2 Saturation 93(L) 95 - 98 % 01/05/2020 9:58 [facility] iSTAT Sodium 135(L) 136 - 145 mmol/L 01/05/2020 9[facility] Potassium 3.7 3.5 - 5.0 mmol/L 01/05/2020 9:58 [facility] iSTAT Glucose 117(H) 70 - 100 mg/dL 01/05/2020 9:58 [facility] iSTAT Hematocrit 31(L) 35 - 44 % PCV 01/05/2020 9:58 [facility] iSTAT Ionized Calcium 1.11(L) 1.12 - 1.32 mmol/L 01/05/2020 9:58 [facility] Base Deficit, i-STAT 2 -2 - 3 01/05/2020 9:58 [facility] Sample Source ARTERIAL 01/05/2020 9:58 [facility] general passenger agent ID [id number] 01/05/2020 9:58 [facility] HN LAB POC COMMENT (CG8) Test performed by Anesthesia. For non-arterial reference ranges, please see ISTAT procedure. 01/05/2020 9:58 [facility] Comment:For arterial collect ion, the Laboratory recommends that the Modified Arnav test be performed to determine that collateral circulation is present from the ulnar artery in the event that thrombosis of the radial artery should occur. Performance of the Modified Arnav test should be documented in the patients' chart Blood ARTERIAL BLOOD / Unknown 01/05/2020 9:53 EDT 01/05/2020 9:57 EDT us Alfonzo Cobb MD POINT OF CARE TEST ORDERABL ES Final Result [facility] [address] [place] [address] * PATIENT RE-TYPE (01/05/2020 8:12 EDT) ABO O 01/05/2020 8:25 T [facility] Rh Factor Positive 01/05/2020 8:25 T [facility] Blood VENOUS BLOOD / Unknown Venipuncture / Unknown 01/05/2020 8:12 EDT 01/05/2020 8:12 EDT us Kenton Barnett MD BLOOD BANK TESTS Final Resul t Performing Organization Address [facility] Co de Phone Number [facility] [address] [place] [address] * PREPARE RED BLOOD CELLS (01/05/2020 7:34 EDT) Product Code [id number] [facility] Donor Number [id number] U [facility] Unit ABO O [facility] Unit Rh POS [facility] Unit Status RE^Released From [facility]ORATORY SERVICES Product Expiration Date [id number] [facility] Unit Blood Type Code 5100 [facility] [facility] Volume 281 [facility] Coding System [id number] [facility] 01/05/2020 7:34 EDT us Alfonzo Cobb MD BLOOD BANK ORDERABLES Final Result [facility] [address] [place] [address] * PREPARE RED BLOOD CELLS (01/05/2020 7:34 EDT) Product Code [id number] [facility] Donor Number [id number] [facility] Unit ABO O [facility] Unit Rh POS [facility] Unit Status RE^Released From [facility] LABORATORY SERVICES Product Expiration Date [id number] [facility] Unit Blood Type Code 5100 [facility] Volume 280 [facility] Coding System [id number] [facility] 01/05/2020 7:34 EDT Alfonzo Cobb MD BLOOD BANK ORDERABLES Final Result Performing Organization Address [facility]/ZIP Co de Phone Number [facility] [address] [place] [address] * TYPE AND SCREEN (01/05/2020 7:10 EDT) ABO O 01/05/2020 8:04 EDT [facility] Rh Factor Positive 01/05/2020 8:04 EDT [facility] Antibody Screen Negative 01/05/2020 8:04 EDT [facility] Specimen Expires: 01/08/2020 @ 23:59 01/05/2020 8:04 EDT [facility] Blood VENOUS BLOOD / Unknown Venipuncture / Unknown 01/05/2020 7:10 EDT 01/05/2020 7:22 EDT us Alfonzo Cobb MD BLOOD BANK TESTS Edited Res ult - Final Performing Organization Address [facility] de Phone Number [facility] [address] [facility] [place] [address] * (ABNORMAL) POCT GLUCOSE, INTERFACED (01/05/2020 7:06 EDT) Glucose, POC 113(H) 70 - 100 mg/dL 01/05/2020 7:11 EDT [facility] general passenger agent ID [id number] 01/05/2020 7:11 EDT [facility] HN LAB POC COMMENT (GLUCOSE) Test Performed by Nursing Services 01/05/2020 7:11 EDT [facility] Blood CAPILLARY BLOOD / Unknown 01/05/2020 7:06 EDT 01/05/2020 7:10 EDT us Alfonzo Cobb MD POINT OF CARE TEST ORDERABL ES Final Result Performing Organization Address [facility] Co de Phone Number [facility] [address] [place] [address] * ECG REPORT - SCANNED (01/04/2020 16:15 EDT) 01/04/2020 16:1 5 EDT us Scan 2 Heavy Duty Mechanic PROCEDURE/MINOR SURGICAL OR DERABLES Final Result documented in this encounter Visit Diagnoses Diagnosis Cerebral aneurysm, nonruptured- Primary Cerebral aneurysm, nonruptured Aneurysm ([facility]) Aneurysm of unspecified site documented in this [...] 1,000 mcg, oral, DAILY, First dose on Koki 01/06/20 at 0900, Until Discontinued, Routine Given 01/07/2020 [...] 40 mg, subcutaneous, DAILY, First dose on Koki 01/06/20 at 0900, Until Discontinued, Routine, Release Given 01/07/2020 8:49 EDT 40 mg Given 01/06/2020 8:32 EDT 40 mg fentaNYL citrate (PF) injection 25-50 mcg 25-50 mcg, intravenous, EVERY 1 HOUR PRN, Starting on Fri01/05/20 at 1232, Until Koki 01/06/20 at 1231, Pain, For breakthrough pain not [...] 20 mg, oral, DAILY, First dose on Koki 01/06/20 at 0900, Until Discontinued, Routine Given 01/07/2020 [...] 2012 (Given - Provider: Sarwat Jerry RN) 829 (Given - Provider: Orin Menchaca RN)2108 (Given - Provider: Jack Drew, BRY) 0849 (Given - Provider: Orin Menchaca RN) clindamycin (CLEOCIN) IVPB 900 mg (COMPLETED) 900 mg, intravenous, Administer over 30 Minutes, PRE-OP ONCE, 1 dose, On Fri01/05/20 at 0645, Routine, Preprocedure 0733 (Given - Provider: Dona Gastelum RN) cyanocobalamin (VITAMIN B-12) tablet 1,000 mcg 1,000 mcg, oral, DAILY, First dose on Fri01/06/20 at 0900, Until Discontinued, Routine 1239 (Given - Provider: Orin Menchaca RN) 0848 (Given - Provider: Orin Menchaca RN) dexAMETHasone (DECADRON) tablet 4 mg 4 mg, oral, EVERY 12 HOURS, First dose on Fri01/05/20 at 2100, Until Discontinued, Routine 2012 (Given - Provider: Sarwat Jerry RN) 829 (Given - Provider: Orin Menchaca RN)2108 (Given - Provider: Jack Drew, BRY) 49 (Given - Provider: Orin Menchaca RN) docusate sodium (COLACE) capsule 100 mg 100 mg, oral, 2 TIMES DAILY, First dose on Fri01/05/20 at 1300, Until Discontinued, Routine, Release 1456 (Given - Provider: Viji Valle RN)2012 (Given - Provider: Sarwat Jerry RN) 0829 (Given - Provider: Orin Menchaca RN)2108 (Given - Provider: Jack rDew RN) 0849 (Given - Provider: Orin Menchaca RN) enoxaparin (LOVENOX) injection 40 mg 40 mg, subcutaneous, DAILY, First dose on Fri01/06/20 at 0900, Until Discontinued, Routine, Release 0832 (Given - Provider: Orin Menchaca RN) 0849 [...] on Fri01/06/20 at 0900, Until Discontinued, Routine 08 (Given - Provider: Orin Menchaca RN) 0848 (Given - Provider: Orin Menchaca RN) gabapentin (NEURONTIN) capsule 800 mg 800 mg, oral, 3 TIMES DAILY, First dose on Fri01/05/20 at 1400, Until Discontinued 145 (Given - Provider: Viji Valle RN)2012 (Given - Provider: Sarwat Jerry RN) 08 (Given - Provider: Orin Menchaca RN)142 (Given - Provider: Orin Menchaca RN)2109 (Given [...] on Fri01/05/20 at 1700, Until Discontinued, Routine 1705 (Given - Provider: Viji Valle RN - [...] 0831 (See Alternative - Provider: Orin Menchaca RN)210 (See Alternative - Provider: Jack Drew RN) [...] DAILY BEFORE BREAKFAST, First dose on Koki 01/06/20 at 0700, Until Discontinued, Routine 0637 (Given - Provider: Sarwat Jerry RN) 0700 (Canceled Entry - Provider: Batch Job User Admin - Comment: Automatically canceled at discontinue of medication order) lisinopriL (PRINIVIL) tablet 10 mg 10 mg, oral, DAILY, First dose on Koki 01/06/20 at 0900, Until Discontinued, Routine 0830 (Given [...] on Fri01/05/20 at 2130, Until Discontinued, Routine 2155 (Given - Provider: Sarwat Jerry RN) 0830 (Given - Provider: Orin Menchaca RN)1239 (Given - Provider: Orin Menchaca RN)1724 (Given - Provider: Orin Menchaca RN)2108 (Given [...] Fri01/07/20 at 0900, Until Discontinued, Routine, Release 0849 (Given - Provider: Orin Menchaca, BRY) sertraline (ZOLOFT) tablet 50 mg 50 mg, oral, DAILY, First dose on Koki 01/06/20 at 0900, Until Discontinued, Routine 0830 (Given [...] Valle RN)1700 (Rate Documented - Provider: Viji Valle RN)1703 (New Bag - Provider: Viji Valle RN)1930 (Rate Change - Provider: Sarwat Jerry RN)1999 (Rate Documented - Provider: Sarwat Jerry RN)2037 (Completed - Provider: Sarwat Jerry RN) niCARdipine (CARDENE) 50 mg in sodium chloride (NS) 0.9 % 500 mL peripheral infusion (CANCELED) 2.5-15 mg/hr (25-150 mL/hr), intravenous, CONTINUOUS, Starting on Fri01/05/20 at 2000, Until Koki 01/06/20 at 1834, Routine 1929 (Canceled Entry - Provider: Sarwat Jerry RN)2039 (New Bag - Provider: Sarwat Jerry RN)2100 (Rate Documented - Provider: Sarwat Jerry, [...] 1300, Until Fri01/06/20 at 1834, Routine, Release 1400 (New Bag - Provider: Viji Valle RN)1500 (Rate Documented - Provider: Viji Valle RN)1600 (Rate Documented - Provider: Viji Valle RN)1700 (Rate Documented - Provider: Viji Valle RN)2000 (Rate Documented - Provider: Sarwat Jerry RN)2100 (Rate Documented - Provider: Sarwat Jerry RN)2200 (Rate Documented - Provider: Sarwat Jerry RN)2300 (Rate Documented - Provider: Sarwat Jerry RN) 0000 (Rate Documented - Provider: Sarwat Jerry RN)0100 (Rate Documented - Provider: Sarwat Jerry RN)0200 (Rate Documented - Provider: Sarwat Jerry RN)0300 (Rate Documented - Provider: Sarwat Jerry RN)0500 (Rate Documented - Provider: Sarwat Jerry, [...] (See Alternative - Provider: Sarwat Jerry RN) 0017 (See Alternative - Provider: Sarwat Jerry RN)0404 [...] (See Alternative - Provider: Sarwat Jerry RN) 001 (See Alternative - Provider: Sarwat Jerry RN)0404 [...] RN) 16 (Given - Provider: Sarwat Jerry RN)0404 (Given - Provider: Sarwat Jerry RN)1239 (Given - Provider: rOin Menchaca RN)1724 (Given - Provider: Orin Menchaca [...] Routine, Release 2052 (Given - Provider: Sarwat Jrery RN) gelatin adsorbable 100 cm sponge (CANCELED) [...] Menchaca RN)1724 (Given - Provider: Orin Menchaca RN)2110 (Given [...] 1 01/05/2020 acetaminophen (TYLENOL) suppository 650 mg 1 01/05/2020 bisacodyL (DULCOLAX) suppository 10 mg 1 bupivacaine-EPINEPHrine (PF) 0.5 %-1:200,000 injection 1 01/05/2020 calcium carbonate (TUMS) 200 mg calcium (500 mg) per chewable tablet tablet,chewable 1 Tab 1 01/05/2020 cellulose, oxidized 2 x 14 (SURGICEL) pad pad 1 01/05/2020 dextrose 50 % solution 12.5 g 2 01/05/2020 gelatin adsorbable 100 cm sponge 01/05/20 Gelatin Adsorbable powder 01/05/2020 glucagon injection 1 mg 2 01/05/2020 hydrALAZINE (APRESOLINE) injection 10 mg 1 01/05/2020 insulin aspart U-100 (NOVOLO G FLEXPEN) injection 2 01/05/2020 labetaloL (TRANDATE) injection 10 mg 12/14 levETIRAcetam (KEPPRA) 500 m g in [...] 12/14 documented in this encounter Care Teams Mastic Man Relationship Specialty Start Date End Date Grant Lindsey MD [address] [place] [address] PCP - General 09/09/19 documented as of this encounter
--- OUTSIDE RECORDS SUMMARY | 2024-04-08 11:13 | XMS_ITS | Encounter Summary ---
Author Organization [facility] Address [address] [place] [address] Care Team Providers Care Janitorial Account Manager Name Role Phone Grant Lindsey MD Primary Care Provider [phone] Reason for Visit * Reason Onset Date Comments New/Evolving Symptoms 02/03/2020 Encounter Details Date Type Department Care Team (Late st Contact Info) Description 02/03/2020 Telephone [facility] - Main [place] [address] [place], [place] [id number] Meghan Garcia RN New/Evolving Symptoms Social History [...] Dalton Cerrato RN documented in this encounter Miscellaneous Notes [...] and hazy vision on the right side. Retail Salesworker advised that she come to the [facility] ED for evaluation of possible hydrocephalus. She was given an explanation of what that means. She agreed to call her brother and notify triage of the outcome. documented in this encounter Plan of Treatment Not on file documented as of this encounter Visit Diagnoses Not on filedocumented in this encounter Care Teams Janitorial Account Manager Relationship Specialty Start Date End Date Grant Lindsey MD [address] [place] [address] PCP - General 09/09/19 documented as of this encounter
--- OUTSIDE RECORDS SUMMARY | 2024-04-08 11:13 | XMS_ITS | Encounter Summary ---
Author Organization [facility] Address [address] [place] [address] Care Team Providers Care Caterpillar Operator Name Role Phone Grant Lindsey MD Primary Care Provider [phone] Encounter Details Date Type Department Care Team (Late st Contact Info) Description 01/04/2020 Prep for Procedure [facility] Neurosurgery - [facility] [address] [place], [place] [address] Amber Lawrence PA-C [address] [facility], [address] [place] [address] Social History Tobacco Use Types [...] on filedocumented in this encounter Care Teams Caterpillar Operator Relationship Specialty Start Date End Date [place] [address] PCP - General 09/09/19 documented as of this encounter
--- OUTSIDE RECORDS SUMMARY | 2024-04-08 11:13 | XMS_ITS | Encounter Summary ---
Author Organization [facility] Address [address] [place] [address] Care Team Providers Care Electrical Accessories I Assembler Name Role Phone Grant Lindsey MD Primary Care Provider [phone] Reason for Visit * Reason Onset Date Comments Post-OP Follow Up 01/11/2020 Encounter Details Date Type Department Care Team (Late st Contact Info) Description 01/11/2020 Telephone [facility] Neurosurgery - Main [place] [address] [place], [place] [id number] Meghan Garcia RN Post-OP Follow Up Social [...] Date of Assessment Author No 12/25/2019 18:00 Dalton Gramajo RN * Are you blind or do you have serious difficulty seeing, even when wearing glasses? Answer Date of Assessment Author No 12/25/2019 18:00 EDDalton Acevedo RN * Because of a physical, mental, or emotional condition, do you have difficulty doing errands alone such as visiting a doctor's office or shopping? (15 years old or older) Answer Date of Assessment Author No 12/25/2019 18:00 Dalton Gramajo RN documented as of this encounter Mental Status * Because of a physical, mental, or emotional condition, do you have serious difficulty concentrating, remembering, or making decisions? (5 years old or older) Answer Entry Date Author No 12/25/2019 18:00 EDDalton Acevedo RN documented in this encounter Miscellaneous Notes [...] in her head which resolves with tylenol. Loom Mechanic encouraged rest with head elevated. Appetite and fluid intake good. Bowels loose. Advised the patient to discontinue laxative. Burning with urination. Advised follow up with PCP to check urine. She is currently staying with family. documented in this encounter Plan of Treatment Not on file documented as of this encounter Visit Diagnoses Not on filedocumented in this encounter Care Teams Electrical Accessories I Assembler Relationship Specialty Start Date End Date Grant Lindsey MD [address] [place] [address] PCP - General 09/09/19 documented as of this encounter
--- OUTSIDE RECORDS SUMMARY | 2024-04-08 11:13 | XMS_ITS | Encounter Summary ---
Author Organization [facility] Address [address] [place] [address] Care Team Providers Care In File Operator Name Role Phone Grant Lindsey MD Primary Care Provider [phone] Reason for Visit * Reason Onset Date Comments Headache 01/14/2020 Balance problem 01/14/2020 Encounter Details Date Type Department Care Team (Late st Contact Info) Description 01/14/2020 Telephone [facility] Neurosurgery - [facility] [address] [place], [place] [id number] Alfonzo Cobb MD [address] [facility] [place] [address] Headache; Balance problem Social History [...] transport her there. * Telephone Encounter - StasguanacoBrianne - 01/14/2020 1448 EDT Patient states she [...] has currently. She saw a cane at [facility] that she stands on its own. documented in this encounter Plan of Treatment Not on file documented as of this encounter Visit Diagnoses Not on filedocumented in this encounter Care Teams In File Operator Relationship Specialty Start Date End Date Grant Lindsey MD [address] [facility] [place] [address] PCP - General 09/09/19 documented as of this encounter
--- OUTSIDE RECORDS SUMMARY | 2024-04-08 11:13 | XMS_ITS | Encounter Summary ---
Author Organization [facility] Address [address] [place] [address] Care Team Providers Care Coat Operator Name Role Phone Grant Lindsey MD Primary Care Provider [phone] Reason for Visit * Auth/Cert Specialty Diagnoses / Procedures Referred By Nicol sparks Referred To Contact Diagnoses Cerebral aneurysm, nonruptured Procedures [place] ANEURYSM, INTRACRAN, SIMPLE SURG Right craniotomy for surgical clipping of right middle cerebral aneurysm Referral ID Status Reason Start Date Expiration Date Visits Re quested Visits Authorized [id number] 1 1 Encounter Details Date Type Department Care Team (Late st Contact Info) Description 01/05/2020 7:25 EDT - 01/05/2020 12:25 EDT Surgery [facility] OR [address] [place] [address] [id number] Alfonzo Cobb MD [address] [place] [address], [address] [place] [phone] Right craniotomy for surgical clipping of right middle cerebral aneurysm [30623 (CPT??)] Surgery Details Date/Time Status Location OR Service Patient Class Case Class Case Type Trauma Case? 01/05/2020 0725 Posted [facility] Neurosurgery Surgery Admit H - Elective Panel 1 Procedure LRB Anes Op Region Wound Class Comments Right craniotomy for surgica l clipping of right middle cerebral aneurysm Right General Head Class I/ Clean Surgeon Surgeon Role Service Panel Alfozno Cobb MD Primary Neurosurgery 1 Antoine Castaneda MD Assisting Neurosurgery 1 Kyra Salas DO Resident - Assisting Neurosurge ry 1 Special Needs Neuroanesthesia, [facility] - Dr. Serrano confirmed 12/02/19. Nuvasive confirmed via email 12/04/19. Confirmation #: [id number] documented in this encounter Social History Tobacco [...] 12/02/2019 Added automatically from request for surgery [id number] ??? Aneurysm ([facility]) 01/05/2020 Resolved Hospital Problems No resolved problems to display. Principal Procedure: Right craniotomy for surgical clipping of right MCA aneurysm (Dr. 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 Lactose Intolerance (Lactase) ??? Neosporin [Wgkrwclk-Azocowuytoj-Ksfeksnkc] Nausea and rash There is no immunization [...] 10:00 Telemedicine Visit with Amber Lawrence PA-C [facility] Neurosurgery - [facility] (--) [address] [place] [phone] Follow-up appointments and procedures Amb Consult/Follow Up [...] speech, hyperparathyroidism, and SOCORRO who presented to [facility] ED on 12/24 with 4 [...] x7 days Neurosurgery resident 01/07/2020 7:17 Page [phone] with questions * Noble Bass, RT - 01/06/20202130 EDT Respiratory Consult/Progress Note Indications for Respiratory [...] to chair Awake and conversant No drift Education Coordinator 5/5 Elbow flexion and extension 5/5 Wiggles toes to command bl Incision CDI Assessment/ 59 yo left-handed female with a relevant PMHx of liver cirrhosis, HTN, Diabetic neuropathy, hypothyroidism, obesity, tobacco abuse, 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, hyperparathyroidism, and SOCORRO who presented to [facility] ED on 12/24 with 4 [...] x7 days Neurosurgery resident 01/06/2020 10:35 Page 5991 with questions Cosigned by Alfonzo Cobb MD [...] speech, hyperparathyroidism, and SOCORRO who presented to [facility] ED on 12/24 with 4 [...] x7 days Neurosurgery resident 01/04/2020 9:35 Page 0638 with questions * Dona Gastelum RN - [...] at 01/06/2020 16:21 EDT Source Note - MARKETING PROFESSOR, SCAN 2 - 01/04/2020 16:15 EDT documented in this encounter OR Notes * OR Surgeon - Alfonzo Cobb MD - 01/05/2020 2317 EDT OPERATIVE REPORT SERVICE DATE: 01/05/2020 SURGEON: Alfonzo Cobb MD ASSISTANTS: Kyra Salas DO, Antoine Castaneda MD ANESTHESIA: General. PREOPERATIVE DIAGNOSIS: Right middle [...] craniotome. Free bone flap was removed. The [employer] QD8 was then used to drill down the sphenoid ridge to allow exposure to the basal cisterns. Dura was opened and hinged anteriorly. Thus, the frontal and temporal lobes were exposed. A [employer] self-retaining retractor system was put in place. [...] with clipping without temporary clipping, and a [employer] 7 mm curved clip was placed over the dome of the aneurysm and nicely closed the neck of the aneurysm. The aneurysm was well clipped. We used ultrasound to confirm that M1 and M2s were open. We also used IC-Green to confirm T1adsqasr patent and the aneurysm closed. Papaverine was [...] case.. Alfonzo Cobb MD / CF Confirmation: [id number] Dictation ID: [id number] cc: Alfonzo Cobb MD, [facility] - Neurosurgery, [address] [place] [address] Kyra Salas DO, [facility] - House Staff Mail, [address] [place] [address] Grant Lindsey MD, [facility], [address] [place], [place] [phone] documented in this encounter Miscellaneous Notes * Plan of Care - Orin Menchaca RN - 01/06/2020 1553 EDT Problem: High Fall Risk: Goal: Patient will Remain Free of Falls due to Med. Side Effects Note: D: Patient is a fall risk per fall scale. A: Educated patient contour grinder light usage, chair locked when in chair, [...] Ongoing Flowsheets (Taken 01/05/2020 1306 by Viji Valle, BRY) Area of Focus: Neuro Status Goal This [...] Brief Op Note Surgeon: Alfonzo Cobb MD Loan Auditor: Antoine Castaneda MD & Kyra Salas DO [...] x7 days Kyra Salas DO Neurosurgery Pager [phone] * PAT Note - Sherry Martin DO [...] Nuvasive confirmed via email 12/04/19. Confirmation #: [id number] TYPE AND SCREEN STAT 01/05/2020 7:10 EDT POCT GLUCOSE, INTERFACED Routine 01/05/2020 7:06 EDT ECG REPORT - SCANNED 01/04/2020 16:15 EDT documented in this encounter Results * PROCEDURE REPORTS - SCANNED (02/08/2020 9:02 EDT) 02/08/2020 9:02 EDT us Scan 2 Mobile Game Engineer PROCEDURE/MINOR SURGICAL OR DERABLES Final Result * (ABNORMAL) POCT GLUCOSE, INTERFACED (01/07/2020 8:14 EDT) Glucose, POC 209(H) 70 - 100 mg/dL 01/07/2020 8:19 EDT [facility] geodetic advisor ID [id number] 01/07/2020 8:19 EDT [facility] HN LAB POC COMMENT (GLUCOSE) Test Performed by Nursing Services 01/07/2020 8:19 EDT [facility] Blood CAPILLARY BLOOD / Unknown 01/07/2020 8:14 EDT 01/07/2020 8:19 EDT us Kyra Salas DO POINT OF CARE TEST ORDERABL ES Final Result [facility] [address] [place] [address] * (ABNORMAL) COMPLETE BLOOD COUNT AND DIFFERENTIAL (01/07/2020 3:40 EDT) WBC 7.23 4.00 - 12.40 K/cmm 01/07/2020 4:25 EDT [facility] RBC 3.44(L) 3.86 - 5.04 M/cmm 01/07/2020 4:25 EDT [facility] Hemoglobin 10.0(L) 11.6 - 15.2 gm/dL [facility]/07[facility]2020 [facility] HCT 30.1(L) 34.9 - 44.4 % 01/07/2020 [facility] MCV 88 81 - 98 fl 01/07/2020 4[facility] MCH 29.1 26.7 - 33.3 pg 01/07/2020 4[facility] MCHC 33.2 32.1 - 35.9 gm/dL 01/07/2020 4:25 [facility] RDW-CV 14.6 <14.7 % 01/07/2020 4:25 [facility] RDW-SD 45.7 <50.4 fl 01/07/2020 4:25 EDT [facility] PLT 111(L) 141 - 377 K/cmm 01/07/2020 4[facility] MPV 9.6 9.5 - 12.7 fl 01/07/2020 4:25 [facility] % Neutrophils 71.5 % 01/07/2020 4:25 [facility] % Lymphocytes 19.1 % 01/07/2020 4:25 [facility] % Monocytes 7.3 % 01/07/2020 4:25 [facility] % Eosinophils 0.3 % 01/07/2020 4:25 EDT [facility] % Basophils 0.3 % 01/07/2020 4:25 EDT [facility] % Immature Grans 1.5 % 01/07/20 20 4:25 EDT [facility] Absolute Neutrophils 5.17 2.20 - 8.85 K/cmm 01/07/2020 4:25 EDT [facility] Absolute Lymphocytes 1.38 1.09 - 3.30 K/cmm 01/07/2020 4:25 EDT [facility] Absolute Monocytes 0.53 0.10 - 0.80 K/cmm 01/07/2020 4:25 EDT [facility] Absolute Eosinophils 0.02(L) 0.03 - 0.61 K/cmm 01/07/2020 4:25 EDT [facility] ABS Basophils 0.02 0.01 - 0.11 K/cmm 01/07/2020 4:25 EDT [facility] Absolute Immature Grans 0.11(H) 0.00 - 0.06 K/cmm 01/07/2020 4:25 EDT [facility] Type of Differential: Auto 01/07/2020 4:25 T [facility] Blood VENOUS BLOOD / Unknown Venipuncture / Unknown 01/07/2020 3:40 EDT 01/07/2020 4:16 EDT us Kyra Salas DO PACKAGES & DNA PROBE ORDERA BLES Final Result [facility] [address] [place] [address] * CREATININE (01/07/2020 3:40 EDT) Creatinine 0.68 0.52 - 1.04 mg/dL 01/07/2020 5:11 EDT [facility] eGFR 96 >60 mL/min/1.7 3m2 01/07/2020 5:11 EDT [facility] Comment:eGFR calculated farhana g CKD-EPI equation for non- Americans. Multiply eGFR by 1.16 for patients. Blood VENOUS BLOOD / Unknown Venipuncture / Unknown 01/07/2020 3:40 EDT 01/07/2020 4:45 EDT Kyra Salas DO CHEMISTRY & BLOOD GAS ORDER [place] Final Result Performing Organization Address City/[facility]/ZIP Co de Phone Number [facility] [address] [place] [address] * BUN (01/07/2020 3:40 EDT) BUN 17 10 - 26 mg/dL 01/07/2020 5:11 EDT [facility] Blood VENOUS BLOOD / Unknown Venipuncture / Unknown 01/07/2020 3:40 EDT 01/07/2020 4:45 EDT Kyra Salas DO CHEMISTRY & BLOOD GAS ORDER [place] Final Result Performing Organization Address [facility] de Phone Number [facility] [address] [place] [address] * ELECTROLYTES (01/07/2020 3:40 EDT) Sodium 141 136 - 145 mEq/L 01/07/2020 5:11 EDT [facility] Potassium 4.5 3.5 - 5.0 mEq/L 01/07/2020 5:11 EDT [facility] Chloride 101 96 - 110 mEq/L 01/07/2020 5:11 EDT [facility] CO2 Total 27 22 - 32 mEq/L 01/07/2020 5:11 EDT [facility] Blood VENOUS BLOOD / Unknown Venipuncture / Unknown 01/07/2020 3:40 EDT 01/07/2020 4:45 EDT Kyra Salas DO CHEMISTRY & BLOOD GAS ORDER [place] Final Result Performing Organization Address [facility]/ZIP Co de Phone Number [facility] [address] [place] [address] * (ABNORMAL) POCT GLUCOSE, INTERFACED (01/06/2020 21:06 EDT) Glucose, POC 166(H) 70 - 100 mg/dL 01/06/2020 21:11 EDT [facility] geodetic advisor ID [id number] 01/06/2020 21:11 EDT [facility] HN LAB POC COMMENT (GLUCOSE) Test Performed by Nursing Services 01/06/2020 21:11 EDT [facility] Blood CAPILLARY BLOOD / Unknown 01/06/2020 21:06 EDT 01/06/2020 21:11 EDT Kyra Salas DO POINT OF CARE TEST ORDERABL ES Final Result Performing Organization Address [facility]/ZIP Co de Phone Number [facility] [address] [place] [address] * (ABNORMAL) POCT GLUCOSE, INTERFACED (01/06/2020 16:47 EDT) Glucose, POC 169(H) 70 - 100 mg/dL 01/06/2020 16:51 EDT [facility] geodetic advisor ID [id number] 01/06/2020 16:51 EDT [facility] HN LAB POC COMMENT (GLUCOSE) Test Performed by Nursing Services 01/06/2020 16:51 EDT [facility] Blood CAPILLARY BLOOD / Unknown 01/06/2020 16:47 EDT 01/06/2020 16:51 EDT us Kyra Salas DO POINT OF CARE TEST ORDERABL ES Final Result Performing Organization Address [facility]/ZIP Co de Phone Number [facility] [address] [place] [address] * (ABNORMAL) POCT GLUCOSE, INTERFACED (01/06/2020 11:33 EDT) Glucose, POC 177(H) 70 - 100 mg/dL 01/06/2020 11:38 EDT [facility] geodetic advisor ID [id number] 01/06/2020 11:38 EDT [facility] HN LAB POC COMMENT (GLUCOSE) Test Performed by Nursing Services 01/06/2020 11:38 EDT [facility] Blood CAPILLARY BLOOD / Unknown 01/06/2020 11:33 EDT 01/06/2020 11:38 EDT us Alfonzo Cobb MD POINT OF CARE TEST ORDERABL ES Final Result Performing Organization Address [facility] Co de Phone Number [facility] [address] [place] [address] * (ABNORMAL) POCT GLUCOSE, INTERFACED (01/06/2020 7:29 EDT) Pathologist [facility] Glucose, POC 145(H) 70 - 100 mg/dL 01/06/2020 19:51 EDT [facility] geodetic advisor ID [id number] 01/06/2020 19:51 EDT [facility] HN LAB POC COMMENT (GLUCOSE) Test Performed by Nursing Services 01/06/2020 19:51 T [facility] Blood CAPILLARY BLOOD / Unknown 01/06/2020 7:29 EDT 01/06/2020 19:51 EDT us Kyra Salas DO POINT OF CARE TEST ORDERABL ES Final Result Performing Organization Address [facility] Co de Phone Number [facility] [address] [place] [address] * (ABNORMAL) COMPLETE BLOOD COUNT AND DIFFERENTIAL (01/06/2020 4:00 EDT) [facility] WBC 8.77 4.00 - 12.40 K/cmm 01/06/2020 4:19 [facility] RBC 3.49(L) 3.86 - 5.04 M/cmm 01/06/2020 4:19 [facility] Hemoglobin 10.0(L) 11.6 - 15.2 gm/dL 01/06/2020 4:19 [facility] HCT 29.8(L) 34.9 - 44.4 % 01/06/2020 4:19 [facility] MCV 85 81 - 98 fl 01/06/2020 4:19 [facility] MCH 28.7 26.7 - 33.3 pg 01/06/2020 4:19 [facility] MCHC 33.6 32.1 - 35.9 gm/dL 01/06/2020 4:19 [facility] RDW-CV 14.4 <14.7 % 01/06/2020 4:19 [facility] RDW-SD 44.2 <50.4 fl 01/06/2020 4:19 [facility] PLT 114(L) 141 - 377 K/cmm 01/06/2020 4:19 [facility] MPV 9.4(L) 9.5 - 12.7 fl 01/06/2020 4:19 [facility] % Neutrophils 83.4 % 01/06/2020 4:19 [facility] % Lymphocytes 10.4 % 01/06/2020 4:19 [facility] % Monocytes 4.8 % 01/06/2020 4:19 [facility] % Eosinophils 0.1 % 01/06/2020 4:19 [facility] % Basophils 0.2 % 01/06/2020 4:19 [facility] % Immature Grans 1.1 % 01/06/20 20 4:19 [facility] Absolute Neutrophils 7.31 2.20 - 8.85 K/cmm 01/06/2020 4:19 [facility] Absolute Lymphocytes 0.91(L) 1.09 - 3.30 K/cmm 01/06/2020 4:19 [facility] Absolute Monocytes 0.42 0.10 - 0.80 K/cmm 01/06/2020 4:19 [facility] Absolute Eosinophils 0.01(L) 0.03 - 0.61 K/cmm 01/06/2020 4:19 [facility] ABS Basophils 0.02 0.01 - 0.11 K/cmm 01/06/2020 4:19 [facility] Absolute Immature Grans 0.10(H) 0.00 - 0.06 K/cmm 01/06/2020 4:19 [facility] Type of Differential: Auto 01/06/2020 4:19 [facility] Blood VENOUS BLOOD / Unknown Venipuncture / Unknown 01/06/2020 4:00 EDT 01/06/2020 4:05 EDT Kyra Salas DO PACKAGES & DNA PROBE ORDERA BLES Final Result Performing Organization Address City/[facility]/ZIP Co de Phone Number [facility] [address] [place] [address] * CREATININE (01/06/2020 4:00 EDT) Creatinine 0.61 0.52 - 1.04 mg/dL 01/06/2020 4:26 EDT [facility] eGFR 100 >60 mL/min/1.7 3m2 01/06/2020 4:26 EDT [facility] Comment:eGFR calculated farhana mcclendon CKD-EPI equation for non- Americans. Multiply eGFR by 1.16 for patients. Blood VENOUS BLOOD / Unknown Venipuncture / Unknown 01/06/2020 4:00 EDT 01/06/2020 4:05 EDT Kyra Salas DO CHEMISTRY & BLOOD GAS ORDER [place] Final Result Performing Organization Address [facility]/ZIP Co de Phone Number [facility] [address] [place] [address] * BUN (01/06/2020 4:00 EDT) BUN 13 10 - 26 mg/dL 01/06/2020 4:26 EDT [facility] Blood VENOUS BLOOD / Unknown Venipuncture / Unknown 01/06/2020 4:00 EDT 01/06/2020 4:05 EDT Kyra Salas DO CHEMISTRY & BLOOD GAS ORDER WINSTON Final Result [facility] [address] [place] [address] * ELECTROLYTES (01/06/2020 4:00 EDT) Sodium 141 136 - 145 mEq/L 01/06/2020 4:26 EDT [facility] Potassium 4.5 3.5 - 5.0 mEq/L 01/06/2020 4:26 EDT [facility] Chloride 104 96 - 110 mEq/L 01/06/2020 4:26 EDT [facility] CO2 Total 25 22 - 32 mEq/L 01/06/2020 4:26 EDT [facility] Blood VENOUS BLOOD / Unknown Venipuncture / Unknown 01/06/2020 4:00 EDT 01/06/2020 4:05 EDT us Kyra Salas DO CHEMISTRY & BLOOD GAS ORDER [place] Final Result Performing Organization Address City/[facility]/ZIP Co de Phone Number [facility] [address] [place] [address] * (ABNORMAL) POCT GLUCOSE, INTERFACED (01/05/2020 20:32 EDT) [facility] Signature Glucose, POC 218(H) 70 - 100 mg/dL 01/05/2020 20:37 EDT [facility] geodetic advisor ID [id number] 01/05/2020 20:37 EDT [facility] HN LAB POC COMMENT (GLUCOSE) Test Performed by Nursing Services 01/05/2020 20:37 EDT [facility] Blood CAPILLARY BLOOD / Unknown 01/05/2020 20:32 EDT 01/05/2020 20:37 EDT us Kyra Salas DO POINT OF CARE TEST ORDERABL ES Final Result Performing Organization Address City/[facility]/ZIP Co de Phone Number [facility] [address] [place] [address] * CT HEAD WO CONTRAST (01/05/2020 18:13 [...] findings. Kyra Salas DO IMG CT ORDERABLES Final Res ult * (ABNORMAL) POCT GLUCOSE, INTERFACED (01/05/2020 16:42 EDT) Glucose, POC 197(H) 70 - 100 mg/dL 01/05/2020 16:46 EDT [facility] geodetic advisor ID [id number] 01/05/2020 16:46 EDT [facility] HN LAB POC COMMENT (GLUCOSE) Test Performed by Nursing Services 01/05/2020 16:46 EDT [facility] Blood CAPILLARY BLOOD / Unknown 01/05/2020 16:42 EDT 01/05/2020 16:46 EDT Kyra Salas DO POINT OF CARE TEST ORDERABL ES Final Result [facility] [address] [place] [address] * (ABNORMAL) POCT GLUCOSE, INTERFACED (01/05/2020 12:42 EDT) Glucose, POC 179(H) 70 - 100 mg/dL 01/05/2020 12:46 EDT [facility] geodetic advisor ID [id number] 01/05/2020 12:46 EDT [facility] HN LAB POC COMMENT (GLUCOSE) Test Performed by Nursing Services 01/05/2020 12:46 EDT [facility] Blood CAPILLARY BLOOD / Unknown 01/05/2020 12:42 EDT 01/05/2020 12:46 EDT us Alfonzo Cobb MD POINT OF CARE TEST ORDERABL ES Final Result [facility] [address] [place] [address] * (ABNORMAL) POCT BLOOD GAS, CG8 I-STAT (01/05/2020 9:53 EDT) iSTAT pH 7.39 7.35 - 7.45 01/05/2020 9:58 EDT [facility] iSTAT pCO2 37 35 - 45 mmHg 01/05/2020 9:58 [facility] i-STAT pO2 68(L) 80 - 105 mmHg 01/05/2020 9:58 [facility] iSTAT TCO2 23 23 - 27 mmol/L 01/05/2020 9:58 [facility] i-STAT O2 Saturation 93(L) 95 - 98 % 01/05/2020 9:58 [facility] iSTAT Sodium 135(L) 136 - 145 mmol/L 01/05/2020 9:58 [facility] iSTAT Potassium 3.7 3.5 - 5.0 mmol/L 01/05/2020 9:58 [facility] iSTAT Glucose 117(H) 70 - 100 mg/dL 01/05/2020 9:58 [facility] iSTAT Hematocrit 31(L) 35 - 44 % PCV 01/05/2020 9:58 [facility] iSTAT Ionized Calcium 1.11(L) 1.12 - 1.32 mmol/L 01/05/2020 9:58 [facility] Base Deficit, i-STAT 2 -2 - 3 01/05/2020 9:58 [facility] Sample Source ARTERIAL 01/05/2020 9:58 [facility] geodetic advisor ID [id number] 01/05/2020 9:58 [facility] HN LAB POC COMMENT (CG8) Test performed by Anesthesia. For non-arterial reference ranges, please see ISTAT procedure. 01/05/2020 9:58 EDT [facility] Comment:For arterial collect ion, [...] ORDERABL ES Final Result Performing Organization Address [facility]/ZIP Co de Phone Number [facility] [address] [place] [address] * PATIENT RE-TYPE (01/05/2020 8:12 EDT) ABO O 01/05/2020 8:25 EDT [facility] Rh Factor Positive 01/05/2020 8:25 EDT [facility] Blood VENOUS BLOOD / Unknown Venipuncture / Unknown 01/05/2020 8:12 EDT 01/05/2020 8:12 EDT Kenton Barnett MD BLOOD BANK TESTS Final Resul t Performing Organization Address City/[facility]/ZIP Co de Phone Number [facility] [address] [place] [address] * PREPARE RED BLOOD CELLS (01/05/2020 7:34 EDT) Product Code [id number] [facility] Donor Number [id number] U [facility] Unit ABO O [facility] Rh POS [facility] Unit Status RE^Released From Crossmatch [facility] Product Expiration Date [id number] [facility] Unit Blood Type Code 5100 [facility] Volume 281 [facility] Coding System [id number] [facility] 01/05/2020 7:34 EDT Alfonzo Cobb MD BLOOD BANK ORDERABLES Final Result [facility] [address] [place] [address] * PREPARE RED BLOOD CELLS (01/05/2020 7:34 EDT) Product Code [id number] [facility] Donor Number [id number] U [facility] Unit ABO O [facility] Unit Rh POS [facility] Unit Status RE^Released From [employer] [facility] Product Expiration Date [id number] [facility] Unit Blood Type Code 5100 [facility] Volume 280 [facility] LABORATORY SERVICES Coding System [id number] [facility] LABORATORY SERVICES 01/05/2020 7:34 EDT Alfonzo Cobb MD BLOOD BANK ORDERABLES Final Result Performing Organization Address [facility]/ZIP Co de Phone Number [facility] LABORATORY SERVICES [address] [place] [address] * TYPE AND SCREEN (01/05/2020 7:10 EDT) ABO O 01/05/2020 8:04 EDT [facility] BLOOD BANK Rh Factor Positive 01/05/2020 8:04 EDT [facility] BLOOD BANK Antibody Screen Negative 01/05/2020 8:04 EDT [facility] BLOOD BANK Specimen Expires: 01/08/2020 @ 23:59 01/05/2020 8:04 EDT [facility] BLOOD BANK Blood VENOUS BLOOD / Unknown Venipuncture / Unknown 01/05/2020 7:10 EDT 01/05/2020 7:22 EDT Alfonoz Cobb MD BLOOD BANK TESTS Edited Res ult - Final [facility] BLOOD BANK [address] [place] [address] * (ABNORMAL) POCT GLUCOSE, INTERFACED (01/05/2020 7:06 EDT) Glucose, POC 113(H) 70 - 100 mg/dL 01/05/2020 7:11 EDT [facility] LABORATORY geodetic advisor ID [id number] 01/05/2020 7:11 EDT [facility] LABORATORY SERVICES HN LAB POC COMMENT (GLUCOSE) Test Performed by Nursing Services 01/05/2020 7:11 EDT [facility] LABORATORY SERVICES Blood CAPILLARY BLOOD / Unknown 01/05/2020 7:06 EDT 01/05/2020 7:10 EDT us Alfonzo Cobb MD POINT OF CARE TEST ORDERABL ES Final Result [facility] LABORATORY SERVICES [address] [place] [address] * ECG REPORT - SCANNED (01/04/2020 16:15 EDT) 01/04/2020 16:1 5 EDT us Scan 2 Mobile Game Engineer PROCEDURE/MINOR SURGICAL OR DERABLES Final Result documented [...] needed, Starting on Fri01/05/20 at 0901, Until 9/23/20 at 0909, Routine, Intraprocedure Given 01/05/2020 9:01 [...] RN)2108 (Given - Provider: Jack Drew RN) 08 (Given - Provider: Orin Menchaca RN) clindamycin (CLEOCIN) IVPB 900 mg (COMPLETED) 900 mg, intravenous, Administer over 30 Minutes, PRE-OP ONCE, 1 dose, On Fri01/05/20 at 0645, Routine, Preprocedure 0733 (Given - Provider: Dona Gastelum RN) cyanocobalamin (VITAMIN B-12) tablet 1,000 mcg 1,000 mcg, oral, DAILY, First dose on Koki 01/06/20 at 0900, Until Discontinued, Routine 1239 (Given [...] 0849 (Given - Provider: Orin Menchaca, BRY) docusate sodium (COLACE) capsule 100 mg 100 mg, oral, 2 TIMES DAILY, First dose on Fri01/05/20 at 1300, Until Discontinued, Routine, Release 145 (Given - Provider: Viji Valle RN)2012 [...] RN)2012 (Given - Provider: Sarwat Jerry RN) 828 (Given - Provider: Orin Menchaca RN)1427 (Given [...] 2011 (Given - Provider: Sarwat Jerry RN) 0830 (Given - Provider: Orin Menchaca RN)210 (Given [...] 1929 (Canceled Entry - Provider: Sarwat Jerry, RN)2039 (New Bag - Provider: Sarawt Jerry, RN)2100 (Rate Documented - Provider: Sarwat Jerry, RN)2200 (Rate Documented - Provider: Sarwat Jerry, RN)2300 (Rate Documented - Provider: Sarwat Jerry, RN)2308 (Rate Change - Provider: Sarwat Jerry, RN) 0000 (Rate [...] RN)1700 (Rate Documented - Provider: Viji Valle, BRY)2000 (Rate Documented - Provider: Sarwat Jerry RN)2100 [...] Sarwat Jerry, RN)0525 (Completed - Provider: Sarwat Jerry, RN) PRN Medication Order 01/05/2020 01/06/2020 01/07/2020 [...] Orin Menchaca RN)2110 (Given - Provider: Jack Drew, BRY) 0848 (Given - Provider: Orin Menchaca RN) [...] acetaminophen (TYLENOL) suppository 650 mg 1 01/05/2020 acetaminophen (TYLENOL) tablet 650 mg bisacodyL (DULCOLAX) suppository 10 mg 1 calcium carbonate (TUMS) 200 mg calcium (500 mg) per chewable tablet tablet,chewable 1 Tab 1 01/05/2020 carvediloL (COREG) tablet 6.25 mg 1 020 clindamycin (CLEOCIN) IVPB 900 mg 1 [...] 1 01/05/2020 levETIRAcetam (KEPPRA) tablet 500 mg 1 12/14 levothyroxine (SYNTHROID) tablet 50 mcg 1 [...] (NS) 0.9 % 250 mL peripheral infusion 01/05/2020 niCARdipine (CARDENE) 50 mg in sodium [...] 12/14 documented in this encounter Care Teams Coat Operator Relationship Specialty Start Date End Date Grant Lindsey MD [address] [place] [address] PCP - General 09/09/19 documented as of this encounter
--- OUTSIDE RECORDS SUMMARY | 2024-04-08 11:13 | XMS_ITS | Encounter Summary ---
Author Organization [facility] Address [address] [place] [address] Care Team Providers Care Labor Custodian Name Role Phone Grant Lindsey MD Primary Care Provider [phone] Reason for Visit * Auth/Cert Specialty Diagnoses / Procedures [facility] Referred To Contact Diagnoses Cerebral aneurysm, nonruptured Procedures ID ANEURYSM, INTRACRAN, SIMPLE SURG Right craniotomy for surgical clipping of right middle cerebral aneurysm Referral ID Status Reason Start Date Expiration Date Visits Re quested Visits Authorized [id number] 1 1 Encounter Details Date Type Department Care Team (Late st Contact Info) Description 01/05/2020 7:40 EDT Anesthesia Event [facility] OR [address] [place], [place] [id number] Petra Raygoza MD [address] [place] [address] Sherry Martin DO [address] [address] Anesthesia Record Procedure Summary Procedure [...] Dressing applied 01/05/20 0800 by Jody Vines, ROLL SCALE MAN 01/06/20 1436 by Orin Menchaca RN Urethral [...] OR by MD; 1; Right; Scalp; 10 [place]; 01/06/20; 1719 (Removed by doctor at bedside) [...] Dalton Cerrato RN documented in this encounter OR Notes * Anesthesia Postprocedure Evaluation - Jody Vines APRN - 01/05/2020 1256 EDT Patient: Kallie Darling Vital signs were reviewed with the recovery nurse. Complete vitals history is available in the [facility]. Vitals Value Taken Time BP 01/05/20 1256 [...] during procedure: OR Anesthesiologist: Petra Raygoza MD Resident/ROLL SCALE MAN: Luis A Toscano MD Performed: resident/ROLL SCALE MAN/AA Indications and Patient Condition Indications for airway [...] Upset ??? Lactose Intolerance (Lactase) ??? Neosporin [Fyvlezrz-Tbgbbdoynvk-Euslvxtkn] Nausea and rash Review of Systems Constitutional: [...] anxiety; to have EKG 12/30/2019 ??? 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 quit drinking in 2016 ??? Depression ??? Diabetes mellitus ([facility]) ??? Diabetes mellitus, type 2 ([facility]) 12/24/2019 cheks daily , usually mid [...] well controlled per pt ??? Parathyroid disease ([facility]) 12/24/2019 pt is not sure if [...] Take 50 mg by mouth daily. yes Cosigned by Petra Raygoza MD at 01/09/2020 4:31 EDT documented in this encounter Miscellaneous Notes * [...] landmarks Attempts: 1 Petra Raygoza MD ANESTHESIA ORDERABLES Final Result * ID AN ELECTIVE ENDOTRACHEAL AIRWAY (01/05/2020 9:02 EDT) Narrative Luis A Toscano MD - 01/05/2020 9:02 EDT Luis A Toscano MD ? 01/05/2020 ??9:04 Airway Date/Time: 01/05/2020 8:18 Urgency: elective General Information and Staff Patient location during procedure: OR Anesthesiologist: Petra Raygoza MD Resident/ROLL SCALE MAN: Luis A Toscano MD Performed: resident/ROLL SCALE MAN/AA Indications and Patient Condition Indications for airway [...] at approach: 1 Petra Raygoza MD ANESTHESIA ORDERABLES Final Result documented in this encounter [...] on Fri01/05/20 at 0909, Until Fri01/05/20 at 1256, Routine, Anesthesia Intraprocedure Rate Change 01/05/2020 11:34 [...] on Fri01/05/20 at 0836, Until Fri01/05/20 at 1256, Routine, Anesthesia Intraprocedure Given 01/05/2020 8:51 EDT 100 mcg Given 01/05/2020 8:42 EDT 100 mcg Given 01/05/2020 8:39 EDT 50 mcg propofol (DIPRIVAN) 500 mg in 50 mL infusion FA IP EQF CONTINUOUS PRN FOR ONE STEP MEDS, Starting on Fri01/05/20 at 0814, Until Fri01/05/20 at 1256, Routine, Anesthesia Intraprocedure Rate Change 01/05/2020 11:18 [...] 020 documented in this encounter Care Teams Labor Custodian Relationship Specialty Start Date End Date Grant Lindsey MD [address] [place] [address] PCP - General 09/09/19 documented as of this encounter
--- OUTSIDE RECORDS SUMMARY | 2024-04-08 11:13 | XMS_ITS | Encounter Summary ---
Author Organization [facility] Address [address] [place] [address] Care Team Providers Care Metal Miner Blasting Name Role Phone Grant Lindsey MD Primary Care Provider [phone] Encounter Details Date Type Department Care Team [...] No 12/25/2019 18:00 Dalton Gramajo RN * Because of a physical, mental, [...] Answer Entry Date Author No 12/25/2019 18:00 Dalton Gramajo RN documented in this encounter Plan of Treatment Not on file documented as of this encounter Visit Diagnoses Not on filedocumented in this encounter Care Teams Metal Miner Blasting Relationship Specialty Start Date End Date Grant [place] [address] [address] [place] [address] PCP - General 09/09/19 documented as of this encounter
--- OUTSIDE RECORDS SUMMARY | 2024-04-08 11:13 | XMS_ITS | Encounter Summary ---
Author Organization [facility] Address [address] [place] [address] Care Team Providers Care Monorail Operator Name Role Phone Grant Lindsey MD Primary Care Provider [phone] Reason for Visit * (Routine) - Receiving Office to Obtain Authorization Specialty Diagnoses / Procedures Referred By Contac t Referred To Contact Procedures CT OUTSIDE IMAGES NEURO Unknown, Provider, MD Referral ID Status Reason Start Date Expiration Date Visits Requested Visits Authorized [id number] Receiving Office to Obtain Authorization 01/19/2020 1 1 Encounter Details Date Type Department Care Team (Latest Contact Info) Description 01/19/2020 12:42 EDT - 01/19/2020 23:59 EDT Hospital Encounter [facility] [place] Discharge Disposition: Home [...] Dalton Gramajo RN documented in this encounter Medications at [...] 12:42 EDT This is a non-reportable exam. us Provider Unknown MD MINER OTHER IMAGING ORDERABLES Final Result documented in this encounter Visit Diagnoses Not on filedocumented in this encounter Care Teams Monorail Operator Relationship Specialty Start Date End Date Grant [place] [address] [address] [place] [address] PCP - General 09/09/19 documented as of this encounter
--- OUTSIDE RECORDS SUMMARY | 2024-04-08 11:13 | XMS_ITS | Encounter Summary ---
Author Organization [facility] Address [address] [place] [address] Care Team Providers Care Program Manager Rn Name Role Phone Grant Lindsey MD Primary Care Provider [phone] Encounter Details Date Type Department Care Team [...] filedocumented in this encounter Care Teams Program Manager Rn Relationship Specialty Start Date End Date Grant [place] [address] [address] [place] [address] PCP - General 09/09/19 documented as of this encounter
--- OUTSIDE RECORDS SUMMARY | 2024-04-08 11:13 | XMS_ITS | Encounter Summary ---
Author Organization [facility] Address [address] [place] [address] Care Team Providers Care Pit Laborer Name Role Phone Grant Lindsey MD Primary Care Provider [phone] Reason for Visit * Reason Onset Date Comments Appointment Related 01/04/2020 Encounter Details Date Type Department Care Team (Late st Contact Info) Description 01/04/2020 Telephone [facility] Neurosurgery - [facility] [address] [place], [place] [phone] Alfonzo Cobb MD [address] [facility], [address] [place] [address] Appointment Related Social History Tobacco [...] on filedocumented in this encounter Care Teams Pit Laborer Relationship Specialty Start Date End Date [place] [address] [address] [place] [address] PCP - General 09/09/19 documented as of this encounter
--- OUTSIDE RECORDS SUMMARY | 2024-04-08 11:13 | XMS_ITS | Encounter Summary ---
Author Organization [facility] Address [address] [place] [address] Care Team Providers Care Associate Drafter Name Role Phone Grant Lindsey MD Primary Care Provider [phone] Reason for Visit * Reason Comments Headache * Consult (Routine) - Order Cancelled Specialty Diagnoses / Procedures [facility] Referred To Contact Neurosurgery Diagnoses Cerebral aneurysm, nonruptured Orin Bassett MD [address] [place] [address] Phone: tel: fax: Alfonzo Cobb MD Phone: tel: fax: Referral ID Status Reason Start Date Expiration Date Visits Requested Visits Authorized [id number] Order Cancelled Specialty Services Required 01/07/2020 1 1 Encounter Details Date Type Department Care Team (Late st Contact Info) Description 02/03/2020 10:00 EDT Telemedicine [facility] Neurosurgery - [facility] [address] [place], [place] [phone] Amber Lawrecne PA-C [address] [facility], [address] [place] [phone] Other headache syndrome (Primary Dx); Cerebral aneurysm, [...] Dalton Cerrato RN documented in this encounter Progress Notes * Amber Lawrence [...] nonruptured documented in this encounter Care Teams Associate Drafter Relationship Specialty Start Date End Date Garnt [place] [address] [place] [address] PCP - General 09/09/19 documented as of this encounter
--- OUTSIDE RECORDS SUMMARY | 2024-04-08 11:13 | XMS_ITS | Encounter Summary ---
Author Organization [facility] Address [address] [place] [address] Care Team Providers Care Mounting Machine Operator Name Role Phone Grant Lindsey MD Primary Care Provider [phone] Reason for Visit * Reason Onset Date Comments Facial Swelling 01/09/2020 Encounter Details Date Type Department Care Team (Late st Contact Info) Description 01/09/2020 Telephone [facility] [address] [place], [place] [address] Leonard Nash MD [address] [place], [place] [address] Facial Swelling Social History Tobacco Use Types [...] on filedocumented in this encounter Care Teams Mounting Machine Operator Relationship Specialty Start Date End Date Grant Lindsey MD [address] [place] [address] PCP - General 09/09/19 documented as of this encounter
--- OUTSIDE RECORDS SUMMARY | 2024-04-08 11:13 | XMS_ITS | Encounter Summary ---
Author Organization [facility] Address [address] [place] [address] Care Team Providers Care Warp Changer Name Role Phone Grant Lindsey MD Primary Care Provider [phone] Reason for Visit * Reason Onset Date Comments New/Evolving Symptoms 01/17/2020 Encounter Details Date Type Department Care Team (Late st Contact Info) Description 01/17/2020 Telephone [facility] [address] [place], [place] [phone] Cleo Martinez RN New/Evolving Symptoms Social History [...] on filedocumented in this encounter Care Teams Warp Changer Relationship Specialty Start Date End Date Grant Lindsey MD [facility] [place] [address] PCP - General 09/09/19 documented as of this encounter
--- OUTSIDE RECORDS SUMMARY | 2024-04-08 11:14 | XMS_ITS | Encounter Summary ---
Author Organization [facility] Address [address] [place] [address] Care Team Providers Care Desk Editor Name Role Phone Chikiskj Mehul Brittney SMITH Primary Care Provider [phone] Reason for Visit * Reason Onset Date Comments Medical Records 01/05/2019 Encounter Details Date Type Department Care Team (Late st Contact Info) Description 01/05/2019 Telephone [facility] Ophthalmology - [address] [address] Rigoberto Dos Santos MD [address] [place] [address] [address] [place] [address] Medical Records Social History Tobacco Use Types Packs/Day Years Used Date Smoking Tobacco: Every Day Smokeless Tobacco: Never Alcohol Use Standard Drinks/Week Comments No 0 (1 standard drink = 0.6 oz pur e alcohol) AUDIT-C Answer Date Recorded Frequency of Alcohol Consumption Never 06/25/2018 Average Number of Drinks Not on file 019 Frequency of Binge Drinking Not on file 06/12 Comments Unknown Sex and Gender Information Value Date Recorded [...] signed, to Dr. Del Rosario at fax: [phone]. documented in this encounter Plan of Treatment Not on file documented as of this encounter Visit Diagnoses Not on filedocumented in this encounter Care Teams Desk Editor Relationship Specialty Start Date End Date Mehul Valladares DO PCP - General 06/25/18 09/08/19 documented as of this encounter
--- OUTSIDE RECORDS SUMMARY | 2024-04-08 11:14 | XMS_ITS | Encounter Summary ---
Author Organization [facility] Address [address] [place] [address] Care Team Providers Care Leave Manager Name Role Phone Grant Lindsey MD Primary Care Provider [phone] Reason for Visit * Reason Onset Date Comments Other 09/15/2019 record release Encounter Details Date Type Department Care Team (Late st Contact Info) Description 09/15/2019 Telephone [facility] Neurosurgery - [facility] [address] [place], [place] [phone] Alfonzo Cobb MD [address] [facility], [address] [place] [address] Other (record release) Social History [...] as of this encounter Functional Status * Because of [...] or making decisions? Answer Entry Date Author Yes 06/11/2019 11:28 EST documented in this encounter Miscellaneous Notes * Telephone Encounter - Gricelda Short - 09/15/2019 2749 EDT Patient's sister, Estefani, called to check whether patient's chart states we have permission to speak with her about patient's care. Informed her that we do not. Estefani asked that a record release be faxed to her at [phone]. Estefani will have the patient sign the form and then will fax it to Medical Records documented in this encounter Plan of Treatment Not on file documented as of this encounter Visit Diagnoses Not on filedocumented in this encounter Care Teams Leave Manager Relationship Specialty Start Date End Date Grant Lindsey MD [address] [place] [address] PCP - General 09/09/19 documented as of this encounter
--- OUTSIDE RECORDS SUMMARY | 2024-04-08 11:14 | XMS_ITS | Encounter Summary ---
Author Organization [facility] Address [address] [place] [address] Care Team Providers Care Microstrategy Reports Developer Name Role Phone Grant Lindsey MD Primary Care Provider [phone] Encounter Details Date Type Department Care Team [...] 06/11/2019 11:28 EST documented in this encounter Plan of Treatment Not on file documented as of this encounter Visit Diagnoses Not on filedocumented in this encounter Care Teams Microstrategy Reports Developer Relationship Specialty Start Date End Date Grant Lindsey MD [address] [place] [address] PCP - General 09/09/19 documented as of this encounter
--- OUTSIDE RECORDS SUMMARY | 2024-04-08 11:14 | XMS_ITS | Encounter Summary ---
Author Organization [facility] Address [address] [place] [address] Care Team Providers Care Track Laminating Machine Tender Name Role Phone Renettabrittney Mehul Brittney SMITH Primary Care Provider [phone] Reason for Visit * Reason Onset Date Comments Appointment Related 05/10/2019 Encounter Details Date Type Department Care Team (Late st Contact Info) Description 05/10/2019 Telephone [facility] Neurosurgery - [facility] [address] [place], [place] [phone] Alfonzo Cobb MD [address] [facility], [address] [place] [address] Appointment Related Social History Tobacco [...] we will send the necessary form to [facility] for Medicaid Transportation. documented in this encounter Plan of Treatment Not on file documented as of this encounter Visit Diagnoses Not on filedocumented in this encounter Care Teams Track Laminating Machine Tender Relationship Specialty Start Date End Date Mehul Valladares DO PCP - General 06/25/18 09/08/19 documented as of this encounter
--- OUTSIDE RECORDS SUMMARY | 2024-04-08 11:14 | XMS_ITS | Encounter Summary ---
Author Organization [facility] Address [address] [place] [address] Care Team Providers Care Carbon Setter Name Role Phone Mehul Valladares DO Primary Care Provider [phone] Reason for Referral * Consult (Routine) - Specialty Report Received Specialty Diagnoses / Procedures Referred By Nicol sparks Referred To Contact Neurosurgery Diagnoses Aneurysm of middle cerebral artery Rigoberto Dos Santos MD Phone: tel: fax: Alfonzo Cobb MD Phone: tel: fax: Referral ID Status Reason Start Date Expiration Date Visits Requested Visits Authorized [id number] Specialty Report Received Specialty Services Required 12/25/2018 [...] IMAGING, POSTERIOR SEGMENT) Rigoberto Dos Santos MD Phone: tel: fax: Referral ID Status Reason Start Date Expiration Date V isits Requested Visits Authorized [id number] New Request 12/25/2018 1 1 * (Routine) - New Request Specialty Diagnoses / Procedures Referred By Nicol t Referred To Contact Diagnoses Visual field defects Aneurysm of middle cerebral artery Eye pain, bilateral Blurred vision, bilateral Amblyopia of eye, left Procedures VISUAL FIELD EXAM, EXTENDED Rgioberto Dos Santos MD Phone: tel: fax: Referral ID Status Reason Start Date Expiration Date V isits Requested Visits Authorized [id number] New Request 12/25/2018 1 1 Reason for [...] When driving occasional flashing requiring pt to lime puller. Tearing with eye strain. Diplopia Has horizontal doubl e vision when driving. Stops often due to double images. Encounter Details Date Type Department Care Team (Late st Contact Info) Description 12/25/2018 13:00 EDT Office Visit [facility] Ophthalmology - [address] [phone] Rigoberto Dos Santos MD [address] [place] [address], [address] [place] [phone] Social History Tobacco Use Types Packs/Day Years [...] been dictated. I spent 45 minutes in [id number] conversation and discussion,with more than 50% of that time used for counseling and coordination of care. * Rigoberto Dos Santos MD - 12/25/2018 0000 EDT [facility] NEURO-OPHTHALMOLOGY PROGRESS / FOLLOWUP NOTE - 12/25/2018 Ms Darling returned for followup neuro-ophthalmic evaluation because of a history of blurred vision and headaches. To your recall, this is a 58-year-old woman who was initially evaluated by me in June 2018, at therequest of her power project manager due to unexplained visual difficulties. The patient has had the benefit of consultation with neurophthalmology at [facility] on at least two prior occasions due [...] both my assessment and Dr Greenwood at [facility], both I and Dr Greenwood at [facility] had suspected that this is at least [...] patient obtain an updated refraction through her power project manager. Specifically, as it relates to the incidental finding of the small aneurysm and recommendation again made referral to neurosurgery and communicate specifically with them need for the same. I have not scheduled followup neuro-ophthalmic evaluation at this time but would be happy to see the patient back at any point that I can be of further assistance. Rigoberto Dos Santos MD Diplomate, the [place] [employer] plastic printer Department of Ophthalmology NEURO-OPHTHALMOLOGY cc: Alfonzo Cobb MD, [facility] - Neurosurgery [address], [address] [place] [address] Eye [facility], [address] [place] [address] documented in this encounter Plan of Treatment [...] may reflect changes made after this encounter. ALBUTEROL INHL Inhale 1 Puff as directed as needed. fluticasone propion/salmetero l (ADVAIR DISKUS INHALATION) Inhale [...] double lines Color Right eye Left eye Deboraara 12/23 07/23 Pt had to be only [...] reactive, no rubeosis Wearing Rx Sphere Cylinder [place] Add Right eye -0.50 +0.25 141 +2.25 Left eye -0.75 +0.50 032 +2.25 Type: Bifocal Manifest Refraction (Auto) Sphere Cylinder [place] Dist VA Right eye -1.00 +0.50 135 20/70+2 Left eye -1.00 +0.50 035 20/50+1 Care Teams Carbon Setter Relationship Specialty Start Date End Date Mehul Valladares DO PCP - General 06/25/18 09/08/19 documented as of this encounter
--- OUTSIDE RECORDS SUMMARY | 2024-04-08 11:14 | XMS_ITS | Encounter Summary ---
Author Organization [facility] Address [address] [place] [address] Care Team Providers Care Counseling Program Leader Name Role Phone Mehul Valladares DO Primary Care Provider [phone] Reason for Visit * Reason Comments New Patient Visit aneurysm * Consult (Routine) - Specialty Report Received Specialty Diagnoses / Procedures Referred By Nicol sparks Referred To Contact Neurosurgery Diagnoses Aneurysm of middle cerebral artery Rigoberto Dos Santos MD Phone: tel: fax: Alfonzo Cobb MD Phone: tel: fax: Referral ID Status Reason Start Date Expiration Date Visits Requested Visits Authorized [id number] Specialty Report Received Specialty Services Required 12/25/2018 1 1 Encounter Details Date Type Department Care Team (Late st Contact Info) Description 06/11/2019 11:30 EST Office Visit [facility] Neurosurgery - Main [place] [address] [place], [place] [id number] Alfonzo Cobb MD [address] [facility], Level [address] [place] [phone] Cerebral aneurysm, nonruptured (Primary Dx) Social History [...] - documented in this encounter Functional Status * [...] 06/11/2019 11:28 EST documented in this encounter Progress Notes * Alfonzo Cobb MD - 06/11/2019 1130 EST This office note has been dictated. documented in this encounter Consult Notes * Alfonzo Cobb MD - 06/11/2019 0000 EST [facility] NEUROLOGICAL SURGERY CONSULTATION - 06/11/2019 Mehul Valladares DO [address] [place] [address] Valladares: I had the opportunity of seeing your patient, Kallie Darling, in consultation in my neurosurgery office at [facility] on 06/11/2019. She was referred to see me by my neuroophthalmologist colleague, Dr Maulik Dos Santos for assessment of a right middle cerebral artery aneurysm. This woman is 58 years old. She lives in [place]. She is left-handed. She has been disabled [...] - Alfonzo Cobb MD rn Dictation ID: [id number] cc: Mehul Valladares DO, [address] [place] [address] Rigoberto Dos Santos MD, [facility] - Ophthalmology [address] [place] [address] documented in this encounter Plan of Treatment Not on file documented as of this encounter Visit Diagnoses Diagnosis Cerebral aneurysm, nonruptured- Primary documented in this encounter Care Teams Counseling Program Leader Relationship Specialty Start Date End Date Mehul Valladares DO PCP - General 06/25/18 09/08/19 documented as of this encounter
--- OUTSIDE RECORDS SUMMARY | 2024-04-08 11:14 | XMS_ITS | Encounter Summary ---
Author Organization [facility] Address [address] [place] [address] Care Team Providers Care Neonatal Pediatric Nurse Name Role Phone Grant Lindsey MD Primary Care Provider [phone] Encounter Details Date Type Department Care Team (Late st Contact Info) Description 09/09/2019 Orders Only [facility] Interventional Rad [facility] [address] [place] [address] Justin Singh, RN [address] [place] [address] Cerebral aneurysm, nonruptured (Primary Dx) Social History [...] Primary documented in this encounter Care Teams Neonatal Pediatric Nurse Relationship Specialty Start Date End Date Grant Lindsey MD [address] [place] [address] PCP - General 09/09/19 documented as of this encounter
--- OUTSIDE RECORDS SUMMARY | 2024-04-08 11:14 | XMS_ITS | Encounter Summary ---
Author Organization [facility] Address [address] [place] [address] Care Team Providers Care Derrick Boat Leverman Name Role Phone Grant Lindsey MD Primary Care Provider [phone] Reason for Visit * (Routine) - Receiving Office to Obtain Authorization Specialty Diagnoses / Procedures Referred By Contac t Referred To Contact Procedures CT OUTSIDE IMAGES NEURO Unknown, Provider, MD Referral ID Status Reason Start Date Expiration Date Visits Requested Visits Authorized [id number] Receiving Office to Obtain Authorization 12/25/2019 1 1 Encounter Details Date Type Department Care Team (Latest Contact Info) Description 12/25/2019 11:44 EDT - 12/25/2019 15:04 EDT Hospital Encounter [facility] Center Secondary Reads [place] Discharge [...] 11:44 EDT This is a non-reportable exam. us Provider Unknown IMYoan OTHER IMAGING ORDERABLES Final Result documented in this encounter Visit Diagnoses Not on filedocumented in this encounter Care Teams Derrick Boat Leverman Relationship Specialty Start Date End Date Grant Lindsey MD [address] [place] [address] PCP - General 09/09/19 documented as of this encounter
--- OUTSIDE RECORDS SUMMARY | 2024-04-08 11:14 | XMS_ITS | Encounter Summary ---
Author Organization [facility] Address [address] [place] [address] Care Team Providers Care Foam Fabricator Name Role Phone Mehul Valladares DO Primary Care Provider Grant Lindsey MD Primary Care Provider [phone] Encounter Details Date Type Department Care Team (Late st Contact Info) Description 08/31/2019 Lab Requisition [facility] Pathology & Laboratory Medicine - [facility] [address] [place] [address] Erika Guillen MD [address] [place] [phone] Encounter for other general examination Social History [...] microorganisms on H&E stained sections. 09/01/2019 13:28 [facility] at 1328 Attestation There was significant resident/fellow involvement in the diagnostic evaluation of this case. By the signature below, the attending physician certifies that they have personally conducted a gross and/or microscopic examination of the described specimens and rendered or confirmed the above diagnosis. 09/01/2019 13:28 [facility] at 1328 Clinical History Epigastric pain, history of colon polyps 09/01/2019 13:28 [facility] Gross Description A. Received [...] entirely in B1. 08/31/2019 16:35 09/01/2019 13:28 [facility] Resident/Alberto w: Clark Potter MD 09/01/2019 13:28 EDT [facility] Scanned Images 09/01/2019 13:28 EDT [facility] Tissue ENTIRE STOMACH / Unknown 08/31/2019 8:05 EDT 08/31/2019 16:30 EDT Tissue specimen (specimen) STOMACH STRUCTURE / Unknown 08/31/2019 8:05 EDT 08/31/2019 16:30 EDT us Erika Guillen MD PATHOLOGY ORDERABLES Final Resul t [facility] [address] [place] [address] documented in this encounter Visit Diagnoses Diagnosis Encounter for other general examination documented in this encounter Care Teams Foam Fabricator Relationship Specialty Start Date End Date Mehul Valladares DO PCP - General 06/25/18 09/08/19 Grant Lindsey MD [facility] [place] [address] [place] [address] PCP - General 09/09/19 documented as of this encounter
--- OUTSIDE RECORDS SUMMARY | 2024-04-08 11:14 | XMS_ITS | Encounter Summary ---
Author Organization [facility] Address [address] [place] [address] Care Team Providers Care Biometrics Instructor Name Role Phone Grant Lindsey MD Primary Care Provider [phone] Reason for Visit * Reason Comments Follow-up Encounter Details Date Type Department Care Team (Late st Contact Info) Description 09/14/2019 11:10 EDT Office Visit [facility] Neurosurgery - [facility] [address] [place], [place] [phone] Alfonzo Cobb MD 111 [facility], [address] [place] [address] Cerebral aneurysm, nonruptured (Primary Dx) [...] Cobb MD - 09/14/2019 0000 EDT [facility] NEUROLOGICAL SURGERY PROGRESS / FOLLOWUP NOTE - 09/14/2019 [place] [address] Lindsey: Kallie Darling underwent a cerebral angiogram this morning at [facility], done by Dr Jed Griffin. This was [...] - Alfonzo Cobb MD rn Dictation ID: [id number] cc: Grant Lindsey MD, [address] [address] documented in this encounter Plan of Treatment Not on file documented as of this encounter Visit Diagnoses Diagnosis Cerebral aneurysm, nonruptured- Primary documented in this encounter Care Teams Biometrics Instructor Relationship Specialty Start Date End Date Grant Lindsey MD [address] [place] [address] PCP - General 09/09/19 documented as of this encounter
--- OUTSIDE RECORDS SUMMARY | 2024-04-08 11:14 | XMS_ITS | Encounter Summary ---
Author Organization [facility] Address [address] [place] [address] Care Team Providers Care Bonus Clerk Name Role Phone Grant Lindsey MD Primary Care Provider [phone] Reason for Visit * Reason Onset Date Comments Headache 12/25/2019 Nausea 12/25/2019 Blurred Vision 12/25/2019 Dizziness 12/25/2019 Encounter Details Date Type Department Care Team (Late st Contact Info) Description 12/25/2019 Telephone [facility] NEUROSURGERY [address] [place], [place] [address] Leonard Nash MD [address] [place] [address] Headache; Nausea; Blurred Vision; Dizziness Social History [...] No 12/25/2019 18:00 EDDalton Acevedo RN * Are you blind or do [...] on filedocumented in this encounter Care Teams Bonus Clerk Relationship Specialty Start Date End Date Raser, Grant, MD [address] [place] [address] PCP - General 09/09/19 documented as of this encounter
--- OUTSIDE RECORDS SUMMARY | 2024-04-08 11:14 | XMS_ITS | Encounter Summary ---
Author Organization [facility] Address [address] [place] [address] Care Team Providers Care Briar Cutter Name Role Phone hCikisMehul underwood Brittney SMITH Primary Care Provider [phone] Reason for Visit * Reason Onset Date Comments Appointment Related 06/18/2019 Encounter Details Date Type Department Care Team (Late st Contact Info) Description 06/18/2019 Telephone [facility] Interventional [facility] - [address] [phone] Pedro Buchanan MD [address] [place] [address], [address] [place] [address] Appointment Related Social History Tobacco [...] They understand that they will need a tanker driver, and that they should plan on [...] on filedocumented in this encounter Care Teams Briar Cutter Relationship Specialty Start Date End Date Mehul Valladares DO PCP - General 06/25/18 09/08/19 documented as of this encounter
--- OUTSIDE RECORDS SUMMARY | 2024-04-08 11:14 | XMS_ITS | Encounter Summary ---
Author Organization [facility] Address [address] [place] [address] Care Team Providers Care Senior Data Warehouse Developer Name Role Phone ChikisMehul underwood Brittney SMITH Primary Care Provider [phone] Reason for Visit * Reason Onset Date Comments Paperwork request 01/14/2019 rct Encounter Details Date Type Department Care Team (Late st Contact Info) Description 01/14/2019 Telephone [facility] Neurosurgery - [facility] [address] [place], [place] [phone] Alfonzo Cobb MD 111 [facility], [address] [place] [address] Paperwork request (rct) Social History [...] (01/19) which is the day of herappointment. [employer] requires 48 hours notice for transportation requests. She asks that appointment be rescheduled. * Telephone Encounter - Gricelda Short - 01/15/2019 1356 EDT Left message for patient to call back. * Telephone Encounter - Sushma Hylton - 01/14/2019 0917 EDT [employer] ( transportation [employer]) Please fax a paper to Medicaid And they will fill it out and will send it to [employer] For transport to our office/for her appt on Jan 19 You can get the form From (Dr Dos Santos's office) per patient Please call patient with any questions documented in this encounter Plan of Treatment Not on file documented as of this encounter Visit Diagnoses Not on filedocumented in this encounter Care Teams Senior Data Warehouse Developer Relationship Specialty Start Date End Date Mehul Valladares DO PCP - General 06/25/18 09/08/19 documented as of this encounter
--- OUTSIDE RECORDS SUMMARY | 2024-04-08 11:14 | XMS_ITS | Encounter Summary ---
Author Organization [facility] Address [address] [place] [address] Care Team Providers Care Supervisor [place] Name Role Phone Mehul Valladares DO Primary Care Provider Reason for Referral * Radiology Services (Routine) - Closed Specialty Diagnoses / Procedures Referred By Nicol sparks Referred To Contact Diagnoses Cerebral aneurysm, nonruptured Procedures IR CAROTID CEREBRAL BILATERAL Alfonzo Cobb MD Phone: tel: fax: Referral ID Status Reason Start Date Expiration Date Visits Re quested Visits Authorized [id number] Closed 09/02/2019 1 1 Encounter Details Date Type Department Care Team (Late st Contact Info) Description 09/02/2019 Orders Only [facility] Neurosurgery - Main [place] [address] [place], [place] [address] Alfonzo Cobb MD 111 [facility], [address] [place] [address] Cerebral aneurysm, nonruptured (Primary Dx) [...] Postoperative Diagnosis: Same Surgeons: Dr. Jed Griffin Test Driller: Dr. Hernando Sheppard Anesthesia: Local with sedation [...] over an introducer wire for a 5 [place]ese sheath. Heparinized saline infusion was administered through the sheath and the catheter used during this procedure. A 5 [place]ese Terumo angled glide catheter was advanced over [...] Postoperative Diagnosis: Same Surgeons: Dr. Jed Griffin Test Driller: Dr. Hernando Sheppard Anesthesia: Local with sedation [...] over an introducer wire for a 5 [place]ese sheath.Heparinized saline infusion was administered through the sheath and thecatheter used during this procedure. A 5 [place] Terumo angled glide catheter was advanced over [...] of the right middle cerebral artery bifurcation. us Alfonzo MINER IR ORDERABLES Final Res ult documented in this encounter Visit Diagnoses Diagnosis Cerebral aneurysm, nonruptured- Primary Cerebral aneurysm, nonruptured documented in this encounter Care Teams Supervisor [place] Relationship Specialty Start Date End Date Mehul Valladares DO PCP - General 06/25/18 09/08/19 documented as of this encounter
--- OUTSIDE RECORDS SUMMARY | 2024-04-08 11:14 | XMS_ITS | Encounter Summary ---
Author Organization [facility] Address [address] [place] [address] Care Team Providers Care Paper Tube Cutter Name Role Phone Chikiskj Mehul Brittney SMITH Primary Care Provider [phone] Reason for Visit * Reason Onset Date Comments Appointment Related 04/21/2019 Encounter Details Date Type Department Care Team (Late st Contact Info) Description 04/21/2019 Telephone [facility] Neurosurgery - [facility] [address] [place], [place] [phone] Alfonzo Cobb MD 111 [facility], [address] [place] [address] Appointment Related Social History Tobacco [...] on filedocumented in this encounter Care Teams Paper Tube Cutter Relationship Specialty Start Date End Date Mehul Valladares DO PCP - General 06/25/18 09/08/19 documented as of this encounter
--- OUTSIDE RECORDS SUMMARY | 2024-04-08 11:14 | XMS_ITS | Encounter Summary ---
Author Organization [facility] Address [address] [place] [address] Care Team Providers Care Heel Seat Filler Name Role Phone Jacquelyn Mehul Brittney SMITH Primary Care Provider Encounter Details Date Type Department Care Team (Late st Contact Info) Description 06/14/2019 Orders Only [facility] Interventional Radiology - [facility] [address] [place] [address] Fe Kirkpatrick PA-C [address] [place] [address], [address] [place] [address] Social History Tobacco Use Types [...] on filedocumented in this encounter Care Teams Heel Seat Filler Relationship Specialty Start Date End Date Mehul Valladares DO PCP - General 06/25/18 09/08/19 documented as of this encounter
--- OUTSIDE RECORDS SUMMARY | 2024-04-08 11:14 | XMS_ITS | Encounter Summary ---
Author Organization [facility] Address [address] [place] [address] Care Team Providers Care Malt House Loader Name Role Phone Renettabrittney Mehul Brittney SMITH Primary Care Provider Encounter Details Date Type Department Care Team (Late st Contact Info) Description 09/03/2019 Orders Only [facility] Interventional Radiology - [facility] [address] [place] [address] Fe Kirkpatrick PA-C [address] [place] [address], [address] [place] [address] Social History Tobacco Use Types [...] on filedocumented in this encounter Care Teams Malt House Loader Relationship Specialty Start Date End Date Mehul Valladares DO PCP - General 06/25/18 09/08/19 documented as of this encounter
--- OUTSIDE RECORDS SUMMARY | 2024-04-08 11:14 | XMS_ITS | Encounter Summary ---
Author Organization [facility] Address [address] [place] [address] Care Team Providers Care Acoustic Engineer Name Role Phone Chikiskj Mehul Brittney SMITH Primary Care Provider Reason for Visit * Reason Onset Date Comments Appointment Related 01/26/2019 Encounter Details Date Type Department Care Team (Late st Contact Info) Description 01/26/2019 Telephone [facility] Neurosurgery - [facility] [address] [place], [place] [id number] Alfonzo Cobb MD 111 [facility], [address] [place] [address] Appointment Related Social History Tobacco [...] on filedocumented in this encounter Care Teams Acoustic Engineer Relationship Specialty Start Date End Date Mehul Valladares DO PCP - General 06/25/18 09/08/19 documented as of this encounter
--- OUTSIDE RECORDS SUMMARY | 2024-04-08 11:14 | XMS_ITS | Encounter Summary ---
Author Organization [facility] Address [address] [place] [address] Care Team Providers Care Projector Booth Operator Name Role Phone Mehul Valladares DO Primary Care Provider [phone] Grant Lindsey MD Primary Care Provider [phone] Encounter Details Date Type Department Care Team (Late st Contact Info) Description 08/27/2019 Lab Requisition [facility] Pathology & Laboratory Medicine - [facility] [address] [place] [address] Outr Resulting Lab, Provider Social History Tobacco [...] rt-PCR Result NEGATIVE Negative 08/28/2019 14:[address] [facility] Comment: 2019-novel Coronavirus (2019-nCoV) not detected [...] in accordance with CLIA regulations, College of [place] Pathologists (CAP) guidelines (Jul 01, 2019), and FDA guidance (Jun 12, 2019). This test is only for use under the Food and Drug Administration's Emergency Use Authorization. Swab ENTIRE NASOPHARYNX / Unknown 08/27/2019 12:15 EDT 08/27/2019 20:35 EDT us Provider Outr Resulting Lab MICROBIOLOGY - GENER AL ORDERABLES Final Result [employer] [place] [place] * COVID-19 TESTING (08/27/2019 12:15 EDT) COVID-19 rt-PCR Result NEGATIVE Negative 08/28/2019 17:34 EDT [facility] Comment: 2019-novel Coronavirus (2019-nCoV) not [...] in accordance with CLIA regulations, College of [place] Pathologists (CAP) guidelines (Jul 01, 2019), and FDA guidance (Jun 12, 2019). This test is only for use under the Food and Drug Administration's Emergency Use Authorization. Performing Lab [employer] 08/28/2019 17:34 EDT [facility] Swab ENTIRE NASOPHARYNX / Unknown 08/27/2019 12:15 EDT 08/27/2019 20:35 EDT us Provider Outr Resulting Lab MICROBIOLOGY - GENER AL ORDERABLES Final Result [facility] [address] [place] [address] [facility] [place] [place] documented in this encounter Visit Diagnoses Not on filedocumented in this encounter Care Teams Projector Booth Operator Relationship Specialty Start Date End Date Mehul Valladares DO PCP - General 06/25/18 09/08/19 Grant Lindsey MD [facility] [place] [address] PCP - General 09/09/19 documented as of this encounter
--- OUTSIDE RECORDS SUMMARY | 2024-04-08 11:14 | XMS_ITS | Encounter Summary ---
Author Organization [facility] Address [address] [place] [address] Care Team Providers Care Tablet Making Machine Operator Name Role Phone Grant Lindsey MD Primary Care Provider [phone] Encounter Details Date Type Department Care Team (Latest Contact Info) Description 12/24/2019 9:50 EDT - 12/24/2019 23:59 EDT Hospital Encounter [facility] Pre-Surgical Testing [address] [place], [place] [address] Discharge Disposition: Home or Self Care Anesthesia [...] OR by MD; 1; Right; Scalp; 10 Guyanese; 01/06/20; 1719 (Removed by doctor at bedside) [...] 11/02/2019 14:43 EDT documented in this encounter Medications at [...] in this encounter Progress Notes * Camryn Valencia RN - 12/24/2019 0950 EDT COVID 19 Screening Perioperative at time [...] instruct them to call us back at [phone] to report symptoms (If patient is in [...] not have; awaiting instruction from primary MD CAMPOS STARTING MONTH BOX [...] encounter Miscellaneous Notes * PAT Note - [place], Juan M Hon-Solange, MD - 12/24/2019 0914 EDT Kallie Darling has been instructed as [...] may reflect changes made after this encounter. CHANTIX STARTING MONTH BOX 0.5 mg (11)- [...] 11/21/2019 added in this encounter Care Teams Tablet Making Machine Operator Relationship Specialty Start Date End Date Grant Lindsey MD [address] [place] [address] PCP - General 09/09/19 documented as of this encounter
--- OUTSIDE RECORDS SUMMARY | 2024-04-08 11:14 | XMS_ITS | Encounter Summary ---
Author Organization [facility] Address [address] [place] [address] Care Team Providers Care Paleology Professor Name Role Phone Grant Lindsey MD Primary Care Provider Reason for Visit * Reason Onset Date Comments COVID-19 12/20/2019 Encounter Details Date Type Department Care Team (Late st Contact Info) Description 12/20/2019 Telephone [facility] [address] [place], [place] [phone] Alfonzo Cobb MD 111 [facility], [address] [place] [address] COVID-19 Social History Tobacco Use [...] Verbally Threaten Not on file 11/14/2019 Comments Unknown Sex and Gender Information Value [...] 11/02/2019 14:43 EDT documented in this encounter Miscellaneous Notes * Telephone Encounter - Amelia Loredo - 12/20/2019 1416 EDT Reason for Call: COVID-19 Summary/Symptoms: 1st call : lmom for patient to call [facility] if she has not heard from them this week Provided the number [phone] Faxed order and demographics to [phone] Amelia Loredo 12/20/2019 14:16 documented in this encounter Plan of Treatment Not on file documented as of this encounter Visit Diagnoses Not on filedocumented in this encounter Care Teams Paleology Professor Relationship Specialty Start Date End Date Grant Lindsey MD [facility] [place] [address] PCP - General 09/09/19 documented as of this encounter
--- OUTSIDE RECORDS SUMMARY | 2024-04-08 11:14 | XMS_ITS | Encounter Summary ---
Author Organization [facility] Address [address] [place] [address] Care Team Providers Care Coil Cutter Name Role Phone Grant Lindsey MD Primary Care Provider Reason for Visit * Reason Comments Discuss Surgery Encounter Details Date Type Department Care Team (Late st Contact Info) Description 11/02/2019 14:40 EDT Office Visit [facility] Neurosurgery - [facility] [address] [place], [place] [id number] Alfonzo Cobb MD [address] [facility], Level 5 [place] [address] Cerebral aneurysm, nonruptured (Primary Dx) [...] 11/02/2019 14:43 EDT documented in this encounter Progress Notes * lAfonzo Cobb MD - 11/02/2019 1440 EDT [facility] NEUROLOGICAL SURGERY PROGRESS / FOLLOWUP NOTE - 11/02/[address] Lindsey, I had the opportunity of seeing your patient, Kallie Darling, back in my neurosurgery office for followup on 11/02/2019. 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 She has undergone CTA and cerebral angiogram assessment. She is 58 years old. She lives in [place]. I did see her previously, 06/11/2019, where [...] well. I will have my neurosurgery PA, Amberjoselin Lawrence, give you a call to sort [...] informed. Yours sincerely, Alfonzo Cobb MD / AL Dictation ID: [id number] cc: Mehul Valladares, [place] [address] * Alfonzo Cobb MD - 11/02/2019 1440 [...] AGREEMENT FOR POST-OPERATIVE NON-INVASIVE VENTILATION-not applicable Signature: BDisogra RN documented in this encounter Miscellaneous Notes [...] 11/02/2019 documented in this encounter Care Teams Coil Cutter Relationship Specialty Start Date End Date Grant Lindsey MD [facility] [place] [address] PCP - General 09/09/19 documented as of this encounter
--- OUTSIDE RECORDS SUMMARY | 2024-04-08 11:14 | XMS_ITS | Encounter Summary ---
Author Organization [facility] Address [address] [place] [address] Care Team Providers Care Business Technology Architect Name Role Phone Chikismikbrittney Mehul Brittney SMITH Primary Care Provider [phone] Reason for Visit * Reason Onset Date Comments Referral Request 05/17/2019 Encounter Details Date Type Department Care Team (Late st Contact Info) Description 05/17/2019 Telephone [facility] Ophthalmology - [address] [address] Rigoberto Dos Santos MD [address] [place] [address] 2 [place] [address] Referral Request Social History Tobacco Use Types [...] on filedocumented in this encounter Care Teams Business Technology Architect Relationship Specialty Start Date End Date Mehul Valladares DO PCP - General 06/25/18 09/08/19 documented as of this encounter
--- OUTSIDE RECORDS SUMMARY | 2024-04-08 11:14 | XMS_ITS | Encounter Summary ---
Author Organization [facility] Address [address] [place] [address] Care Team Providers Care Emergency Medical Services Coordinator Name Role Phone Grant Lindsey MD Primary Care Provider [phone] Reason for Visit * Reason Onset Date Comments Appointment Related 09/09/2019 Encounter Details Date Type Department Care Team (Late st Contact Info) Description 09/09/2019 Telephone [facility] Interventional Rad Clinic - [facility] [address] [place] [address] Justin Singh, BRY [address] [place] [address] Appointment Related Social History Tobacco Use Types [...] Encounter - Justin Rae RN - 09/09/2019 1352 EDT Pre procedure phone call was made to patient regarding his/her upcoming appointment on Wednesday 09/13. 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 Will also call if they develop any fever, cough, flu/covid like symptoms etc Entrances into all [facility] [place] buildings and clinics will be restricted and [...] medications prior to this appointment, please call [facility] to update -Due to sedation you must have a route driver coin machines (bus or taxi is not allowed) - [...] on filedocumented in this encounter Care Teams Emergency Medical Services Coordinator Relationship Specialty Start Date End Date Grant Lindsey MD [address] [place] [address] PCP - General 09/09/19 documented as of this encounter
--- OUTSIDE RECORDS SUMMARY | 2024-04-08 11:14 | XMS_ITS | Encounter Summary ---
Author Organization [facility] Address [address] [place] [address] Care Team Providers Care Budget Report Clerk Name Role Phone Grant Lindsey MD Primary Care Provider [phone] Encounter Details Date Type Department Care Team [...] 11/02/2019 14:43 EDT documented in this encounter Plan of Treatment Not on file documented as of this encounter Visit Diagnoses Not on filedocumented in this encounter Care Teams Budget Report Clerk Relationship Specialty Start Date End Date Grant Lindsey MD [address] [place] [address] PCP - General 09/09/19 documented as of this encounter
--- OUTSIDE RECORDS SUMMARY | 2024-04-08 11:14 | XMS_ITS | Encounter Summary ---
Author Organization [facility] Address [address] [place] [address] Care Team Providers Care Director Revenue Name Role Phone ChikisMehul underwood Brittney SMITH Primary Care Provider Reason for Visit * Reason Onset Date Comments Appointment Related 06/10/2019 Appt 06/11: ANEURYSM Encounter Details Date Type Department Care Team (Late st Contact Info) Description 06/10/2019 Telephone [facility] Neurosurgery - [facility] [address] [place] [address] Alfonzo Cobb MD 111 [facility], Level [address] [place] [phone] Appointment Related (Appt 06/11: ANEURYSM) Social History [...] on filedocumented in this encounter Care Teams Director Revenue Relationship Specialty Start Date End Date Mehul Valladares DO PCP - General 06/25/18 09/08/19 documented as of this encounter
--- OUTSIDE RECORDS SUMMARY | 2024-04-08 11:14 | XMS_ITS | Encounter Summary ---
Author Organization [facility] Address [address] [place] [address] Care Team Providers Care Irish Moss Gatherer Name Role Phone Grant Lindsey MD Primary Care Provider [phone] Reason for Visit * Reason Comments Headache Pt transferred to ED with reports of known anuerism. Has been unable to manage pain at home. Pt alert and oriented on arrival. Reports 8/10 pain. Encounter Details Date Type Department Care Team (Late st Contact Info) Description 12/25/2019 15:05 EDT - 12/26/2019 12:12 EDT Emergency [facility] Neurosurgery Unit [address] [place], [place] [address] Zelalem Mariscal MD 111 [facility], [facility] [address] [place] [address] Antoine Castaneda MD 111 [facility], [facility] [address] [place] [address] Acute intractable headache, unspecified headache [...] Dalton Cerrato RN documented in this encounter Discharge Summaries * Leonard Nash [...] speech who presents as??a transfer from OSH??to [facility] ED with 4 days of worsening right [...] Upset ??? Lactose Intolerance (Lactase) ??? Neosporin [Gxcasosq-Jrmkmctzsmh-Ztiesjndt] Nausea and rash There is no immunization [...] Appointments Jan 05, 2020 5:00 Inpatient with Narcisa Sanches MD [facility] Neurophysiology [facility] (--) [address] [facility] [address] Feb 03, 2020 10:00 Telemedicine Visit with Amber Lawrence PA-C [facility] Neurosurgery [facility] (--) [address] [facility] [address] LEONARD NASH MD 12/26/2019 20:03 Cosigned by Antoine Castaneda MD at 12/26/2019 20:55 EDT documented in this encounter Discharge Instructions [...] Refills Last Filled Start Date End Date acetaminophen (TYLENOL) 325 [...] in this encounter Progress Notes * Eleanor Carvajal, BRY - 12/26/2019 1100 EDT Pt stable for [...] (C5, 6) 5/5 Tricep (C6, 7) 5/5 Rinkman (C8) 5/5 UE Strength - RIGHT Deltoid (C4,C5) 5/5 Bicep (C5, 6) 5/5 Tricep (C6, 7) 5/5 Rinkman (C8) 5/5 No drift LE Strength - [...] of know R MCA aneurysm (scheduled to beclipped 01/04), migraine, and 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 who presents as a transferfrom OSH to [facility] ED with 4 days of worsening right [...] neuro checks, vitals Regular diet Maintenance 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 * Nisha Cerrato, BRY - 12/25/2019 1901 EDT Data: Pt arrived from ED to [facility] 5614-1 @ 1700 approx. Pt reports 8/10 [...] reach. Will continue to monitor. * Ni Tidwell RT - 12/25/2019 1702 EDT Respiratory Consult/Progress [...] albuterol MDIs at home. No NIV/O2 use. MDDany weston RN admin. RT HAL 12/25/19 documented in this encounter H&P Notes * Leonard Nash MD - 12/25/2019 1519 EDT Neurosurgery H&P Problems/ Worsening right-sided head pain R vision bluriness Hx of: Right MCA aneurysm (Scheduled for clipping 01/05/20, [facility]) Migraines HTN DM2 Obesity Anticoagulation or Antiplatelet use: Plavix 75 mg daily HPI: Kallie Darling is a 59 y.o. 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 Cirrhosis ([facility]) 12/24/2019 alcholic cirrhosis, per pt. quit drinking in 2016 ??? Depression ??? Diabetes mellitus ([facility]) ??? Diabetes mellitus, type 2 ([facility]) 12/24/2019 cheks daily , usually [...] controlled per pt ??? Parathyroid disease ([facility]) 12/24/2019 pt is not sure if she [...] Upset ??? Lactose Intolerance (Lactase) ??? 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 LEONARD NASH MD Neurosurgery resident 12/25/2019 22:03 Page [phone] with questions Cosigned by Antoine Castaneda MD at 12/26/2019 11:57 EDT Associated attestation - Antoine Castaneda MD - 12/26/2019 0549 EDT I have seen and examined the [...] exam for emergent medical conditions at the [facility] on 12/25/2019 Scribe Attestation: This documentation [...] to the ED as a transfer from [facility] for further evaluation of headache Patient [...] she is scheduled for a surgery at [facility]. A CT was obtained with no evidence [...] contraindication to a lumbar puncture. Neurosurgery at [facility] was contacted and Dr. Castaneda recommended observation [...] Upset ??? Lactose Intolerance (Lactase) ??? Neosporin [Cqjbfnlw-Bpfxdnclvbe-Dmziyrfdg] Nausea and rash Physical Exam Vital Signs [...] to the ED as a transfer from [facility] with a severe right- sided headache and [...] Stable * Cherry Diaz RN - 12/25/2019 5086 EDT Pt transferred to ED with reports of known anuerism. Has been unable to manage pain at home. Pt alert and oriented on arrival. Reports 8/10 pain. documented in this encounter Miscellaneous Notes * Plan of Care - Leeann Manuel RN - 12/26/2019 7686 EDT Problem: Daily Care Plan Goals Goal: Care Plan Documentation Flowsheets (Taken 12/25/2019 1188) Area of Focus: Neuro Status Goal This [...] ELECTROLYTES Routine 12/25/2019 18:07 EDT ZZCOVID-19 TEST [facility] PCR STAT 12/25/2019 17:07 EDT COVID-19 TESTING STAT 12/25/2019 17:0 7 EDT documented in this encounter Results * (ABNORMAL) POCT GLUCOSE, INTERFACED (12/25/2019 22:14 EDT) Glucose, POC 237(H) 70 - 100 mg/dL 12/26/2019 4:24 EDT [facility] diamond mounter ID [id number] 12/26/2019 4:24 EDT [facility] HN LAB POC COMMENT (GLUCOSE) Test Performed by Nursing Services 12/26/2019 4:24 EDT [facility] Blood CAPILLARY BLOOD / Unknown 12/25/2019 22:14 EDT 12/26/2019 4:24 EDT us Leonard Nash MD POINT OF CARE TEST ORDERABLES F inal Result Performing Organization Address City/[facility]/ZIP Co de Phone Number [facility] [address] [place] [address] * (ABNORMAL) POCT GLUCOSE, INTERFACED (12/25/2019 18:17 EDT) Glucose, POC 102(H) 70 - 100 mg/dL 12/25/2019 18:22 EDT [facility] diamond mounter ID [id number] 12/25/2019 18:22 EDT [facility] HN LAB POC COMMENT (GLUCOSE) Test Performed by Nursing Services 12/25/2019 18:22 EDT [facility] Blood CAPILLARY BLOOD / Unknown 12/25/2019 18:17 EDT 12/25/2019 18:22 EDT us Leonard Nash MD POINT OF CARE TEST ORDERABLES F inal Result Performing Organization Address [facility] Co de Phone Number [facility] [address] [place] [address] * (ABNORMAL) C REACTIVE PROTEIN (12/25/2019 18:07 EDT) C-Reactive Protein 17.5(H) <10.0 mg/L 12/25/2019 21:29 EDT [facility] Blood VENOUS BLOOD / Unknown Venipuncture / Unknown 12/25/2019 18:07 EDT 12/25/2019 18:10 EDT us Antoine Castaneda MD CHEMISTRY & BLOOD GAS ORDER [place] Final Result [facility] [address] [place] [address] * (ABNORMAL) COMPLETE BLOOD COUNT AND DIFFERENTIAL (12/25/2019 18:07 EDT) WBC 4.75 4.00 - 12.40 K/cmm 12/25/2019 18:41 [facility] RBC 3.83(L) 3.86 - 5.04 M/cmm 12/25/2019 18:41 [facility] Hemoglobin 11.2(L) 11.6 - 15.2 gm/dL 12/25/2019 18:41 [facility] HCT 33.2(L) 34.9 - 44.4 % 12/25/2019 18:41 [facility] MCV 87 81 - 98 fl 12/25/2019 18:41 [facility] MCH 29.2 26.7 - 33.3 pg 12/25/2019 18:41 [facility] MCHC 33.7 32.1 - 35.9 gm/dL 12/25/2019 18:41 [facility] RDW-CV 14.2 <14.7 % 12/25/2019 18:41 [facility] RDW-SD 43.7 <50.4 fl 12/25/2019 18:41 [facility] PLT 101(L) 141 - 377 K/cmm 12/25/2019 18:41 [facility] MPV 9.8 9.5 - 12.7 fl 12/25/2019 18:41 [facility] % Neutrophils 56.9 % 12/25/2019 18:41 [facility] % Lymphocytes 33.3 % 12/25/2019 18:41 [facility] % Monocytes 6.1 % 12/25/2019 18:41 [facility] % Eosinophils 2.5 % 12/25/2019 18:41 [facility] % Basophils 0.4 % 12/25/2019 18:41 [facility] % Immature Grans 0.8 % 09/12/20 20 18:41 EDT [facility] Absolute Neutrophils 2.70 2.20 - 8.85 K/cmm 12/25/2019 18:41 T [facility] Absolute Lymphocytes 1.58 1.09 - 3.30 K/cmm 12/25/2019 18:41 T [facility] Absolute Monocytes 0.29 0.10 - 0.80 K/cmm 12/25/2019 18:41 T [facility] Absolute Eosinophils 0.12 0.03 - 0.61 K/cmm 12/25/2019 18:41 EDT [facility] ABS Basophils 0.02 0.01 - 0.11 K/cmm 12/25/2019 18:41 [facility] Absolute Immature Grans 0.04 0.00 - 0.06 K/cmm 12/25/2019 18:41 [facility] Type of Differential: Auto 12/25/2019 18:41 T [facility] Blood VENOUS BLOOD / Unknown Venipuncture / Unknown 12/25/2019 18:07 EDT 12/25/2019 18:10 EDT us Leonard Nash MD PACKAGES & DNA PROBE ORDERABLES Final Result Performing Organization Address City/[facility]/ZIP Co de Phone Number [facility] [address] [place] [address] * MAGNESIUM (12/25/2019 18:07 EDT) Magnesium 1.9 1.7 - 2.8 mg/dL 12/25/2019 18:33 EDT [facility] Blood VENOUS BLOOD / Unknown Venipuncture / Unknown 12/25/2019 18:07 EDT 12/25/2019 18:10 EDT us Leonard Nash MD CHEMISTRY & BLOOD GAS ORDERABLE S Final Result Performing Organization Address City/[facility] Co de Phone Number [facility] [address] [place] [address] * CREATININE (12/25/2019 18:07 EDT) Creatinine 0.60 0.52 - 1.04 mg/dL 12/25/2019 18:33 EDT [facility] eGFR 100 >60 mL/min/1.7 3m2 12/25/2019 18:33 EDT [facility] Comment:eGFR calculated farhana mcclendon CKD-EPI equation for non- Americans. Multiply eGFR by 1.16 for patients. Blood VENOUS BLOOD / Unknown Venipuncture / Unknown 12/25/2019 18:07 EDT 12/25/2019 18:10 EDT us Leonard Nash MD CHEMISTRY & BLOOD GAS ORDERABLE S Final Result [facility] [address] [place] [address] * (ABNORMAL) BUN (12/25/2019 18:07 EDT) BUN 9(L) 10 - 26 mg/dL 12/25/2019 18:33 EDT [facility] Blood VENOUS BLOOD / Unknown Venipuncture / Unknown 12/25/2019 18:07 EDT 12/25/2019 18:10 EDT us Leonard Nash MD CHEMISTRY & BLOOD GAS ORDERABLE S Final Result [facility] [address] [place] [address] * ELECTROLYTES (12/25/2019 18:07 EDT) Sodium 141 136 - 145 mEq/L 12/25/2019 18:33 EDT [facility] Potassium 4.0 3.5 - 5.0 mEq/L 12/25/2019 18:33 EDT [facility] Chloride 101 96 - 110 mEq/L 12/25/2019 18:33 EDT [facility] CO2 Total 26 22 - 32 mEq/L 12/25/2019 18:33 EDT [facility] Blood VENOUS BLOOD / Unknown Venipuncture / Unknown 12/25/2019 18:07 EDT 12/25/2019 18:10 EDT Leonard Nash MD CHEMISTRY & BLOOD GAS ORDERABLE S Final Result Performing Organization Address City/[facility] Co de Phone Number [facility] [address] [place] [address] * COVID-19 TEST [facility] PCR (12/25/2019 17:07 EDT) Swab ENTIRE NASOPHARYNX / Unknown Swab / Unknown 12/25/2019 17:07 EDT 12/25/2019 17:13 EDT Zelalem Mariscal MD MICROBIOLOGY - GENERAL ORDERA BLES Final Result Performing Organization Address [facility] Co de Phone Number [facility] [address] [place] [id number] * COVID-19 TESTING (12/25/2019 17:07 EDT) COVID-19 rt-PCR Result Negative Negative 12/25/2019 20:28 EDT [facility] Comment: This test has not [...] history, and epidemiological information. Performed on the mobiDEOSher Fusion instrument Performing Lab [place] [facility] Lab 12/25/2019 20:28 EDT [facility] Swab ENTIRE NASOPHARYNX / Unknown Swab / Unknown 12/25/2019 17:07 EDT 12/25/2019 17:13 EDT us Zelalem Mariscal MD MICROBIOLOGY - GENERAL ORDERA BLES Final Result [facility] [address] [place] [address] documented in this encounter Visit Diagnoses Diagnosis [...] dose on 12/25/19 at 2100, Until Discontinued 2223 (Given - Provider: Leeann Manuel RN) 0935 (Given - Provider: Eleanor Carvajal RN) PRN Medication Order 12/24/2019 12/25/2019 12/26/2019 acetaminophen (TYLENOL) solution unit dose cup 650 mg(Linked Group 1) 650 mg, per ng tube, EVERY 4 HOURS PRN, Starting on 12/25/19 at 1728, Until 12/26/19 at 1412, Pain, Routine, Release 2206 (See Alternative - Provider: Leeann Manuel RN) [...] 1 12/25/2019 acetaminophen (TYLENOL) suppository 650 mg 1 12/25/2019 albuterol inhaler 90 mcg 1 12/25/2019 [...] 12/13 documented in this encounter Care Teams Irish Moss Gatherer Relationship Specialty Start Date End Date Grant Lindsey MD [address] [place] [address] PCP - General 09/09/19 documented as of this encounter
--- OUTSIDE RECORDS SUMMARY | 2024-04-08 11:14 | XMS_ITS | Encounter Summary ---
Author Organization [facility] Address [address] [place] [address] Care Team Providers Care Friction Saw Operator Name Role Phone Grant Lindsey MD Primary Care Provider [phone] Encounter Details Date Type Department Care Team (Late st Contact Info) Description 09/21/2019 Lab Requisition [facility] [address] [place], [place] [address] Outr Resulting Lab, Provider Social History Tobacco [...] Unknown 09/21/2019 9:14 EDT 09/21/2019 16:10 EDT us Provider Outr Resulting Lab MICROBIOLOGY - GENER AL ORDERABLES Final Result [facility] [address] [place] [address] * COVID-19 TESTING (09/21/2019 9:14 EDT) COVID-19 rt-PCR Result Negative Negative 09/22/2019 11:38 EDT [facility] Comment: This test has not [...] history, and epidemiological information. Performed on the Varioptic [place] Fusion instrument Performing Lab [place] [facility] Lab 09/22/2019 11:38 EDT [facility] Swab ENTIRE NASOPHARYNX / Unknown 09/21/2019 9:14 EDT 09/21/2019 16:10 EDT us Provider Outr Resulting Lab MICROBIOLOGY - GENER AL ORDERABLES Final Result [facility] [address] [place] [address] documented in this encounter Visit Diagnoses Not on filedocumented in this encounter Care Teams Friction Saw Operator Relationship Specialty Start Date End Date Grant Lindsey MD [address] [place] [address] PCP - General 09/09/19 documented as of this encounter
--- OUTSIDE RECORDS SUMMARY | 2024-04-08 11:14 | XMS_ITS | Encounter Summary ---
Author Organization [facility] Address [address] [place] [address] Care Team Providers Care Mold Carrier Name Role Phone Grant Lindsey MD Primary Care Provider [phone] Reason for Visit * Reason Onset Date Comments COVID-19 09/11/2019 Encounter Details Date Type Department Care Team (Late st Contact Info) Description 09/11/2019 Telephone [facility] Interventional Radiology - [address] [id number] Fe Kirkpatrick PA-C [address] [place] [address], Level 1 [place] [address] COVID-19 Social History Tobacco Use [...] - Haily Masterson - 09/11/2019 1126 EDT Advisory Services Associate attempted to schedule a COVID-19 test for patient, in preparation for patient's 09/13 procedure. However, patient does not have access to transportation to testing sites, and lives outside the area covered by the in-home testing service used by [facility]. Please advise patient how she should proceed. documented in this encounter Plan of Treatment Not on file documented as of this encounter Visit Diagnoses Not on filedocumented in this encounter Care Teams Mold Carrier Relationship Specialty Start Date End Date Grant Lindsey MD [address] [place] [address] PCP - General 09/09/19 documented as of this encounter
--- OUTSIDE RECORDS SUMMARY | 2024-04-08 11:14 | XMS_ITS | Encounter Summary ---
Author Organization [facility] Address [address] [place] [address] Care Team Providers Care Yeast Fermentation Attendant Name Role Phone Grant Lindsey MD Primary Care Provider [phone] Reason for Visit * Reason Onset Date Comments Appointment Related 10/13/2019 Encounter Details Date Type Department Care Team (Late st Contact Info) Description 10/13/2019 Telephone [facility] Neurosurgery - [facility] [address] [place], [place] [id number] Alfonzo Cobb MD 111 [facility], [address] 5 [place] [address] Appointment Related Social History Tobacco [...] the Medicaid transportation request form to the [facility]. Location: [facility] Provider: Dr. Cobb Date: 11/02/19 Time: 2:40pm documented in this encounter Plan of Treatment Not on file documented as of this encounter Visit Diagnoses Not on filedocumented in this encounter Care Teams Yeast Fermentation Attendant Relationship Specialty Start Date End Date Grant Lindsey MD [address] [place] [address] PCP - General 09/09/19 documented as of this encounter
--- OUTSIDE RECORDS SUMMARY | 2024-04-08 11:14 | XMS_ITS | Encounter Summary ---
Author Organization [facility] Address [address] [place] [address] Care Team Providers Care Corncob Pipes Assembler Name Role Phone Renettabrittney Mehul Brittney SMITH Primary Care Provider [phone] Reason for Visit * Reason Onset Date Comments Appointment Related 01/01/2019 Encounter Details Date Type Department Care Team (Late st Contact Info) Description 01/01/2019 Telephone [facility] Neurosurgery - [facility] [address] [place], [place] [id number] Alfonzo Cobb MD 111 [facility], [address] [place] [address] Appointment Related Social History Tobacco [...] Kallie to confirm the following appointment details. Temporary Help Agency Referral Clerk unable to LM, due to voicemail not being set up. NPV packet mailed. Date: 01/19/19 Arrival time: 2:15pm Appt time: 2:30pm Provider: Alfonzo Cobb MD Location: [facility] documented in this encounter Plan of Treatment Not on file documented as of this encounter Visit Diagnoses Not on filedocumented in this encounter Care Teams Corncob Pipes Assembler Relationship Specialty Start Date End Date Mehul Valladares DO PCP - General 06/25/18 09/08/19 documented as of this encounter
--- OUTSIDE RECORDS SUMMARY | 2024-04-08 11:14 | XMS_ITS | Encounter Summary ---
Author Organization [facility] Address [address] [place] [address] Care Team Providers Care Engineer Geophysical Laboratory Name Role Phone Chikiskj Mehul Brittney SMITH Primary Care Provider Reason for Visit * Reason Onset Date Comments Appointment Related 05/24/2019 Encounter Details Date Type Department Care Team (Late st Contact Info) Description 05/24/2019 Telephone [facility] Neurosurgery - [facility] [address] [place], [place] [phone] Alfonzo Cobb MD 111 [facility], [address] 5 [place] [address] Appointment Related Social History Tobacco [...] 05/24/2019 1047 EST Called the Department of [place] [facility] and confirmed they received the transportation request for the patient. Also confirmed the appointment was changed to 06/11/19 at 11:30am. documented in this encounter Plan of Treatment Not on file documented as of this encounter Visit Diagnoses Not on filedocumented in this encounter Care Teams Engineer Geophysical Laboratory Relationship Specialty Start Date End Date Mehul Valladares DO PCP - General 06/25/18 09/08/19 documented as of this encounter
--- OUTSIDE RECORDS SUMMARY | 2024-04-08 11:14 | XMS_ITS | Encounter Summary ---
Author Organization [facility] Address [address] [place] [address] Care Team Providers Care Manager Media Relations Name Role Phone Grant Lindsey MD Primary Care Provider [phone] Reason for Visit * Reason Onset Date Comments Appointment Related 12/02/2019 Encounter Details Date Type Department Care Team (Late st Contact Info) Description 12/02/2019 Telephone [facility] Neurosurgery - [facility] [address] [place], [place] [id number] Alfonzo Cobb MD 111 [facility], [address] [place] [address] Appointment Related Social History Tobacco [...] preop physical. Kallie is aware that this underwriter mortgage loan will fax our preop form to their office. Discussed with Kallie that will need to have a Covid test 4-7 days prior to her surgery and will need to self quarantine afterwards. She's aware thata covid testing radiology scheduler will contact her with the date/time/location of that test. Kallie verbalized understanding of all information discussed and denied having any questions. * Telephone Encounter - Dorcas Bolanos - 12/02/2019 1054 EDT Attempted to contact Kallie to discuss scheduling her surgery with Dr. Cobb. The number listed on file is currently out of service. Mold Yard Worker attempted to contact PCP for an alternate number but no one answered. Mold Yard Worker LM for patient's emergency contact, her daughter Asiya, asking her to return our call so we can update Kallie's phone number/contact information. documented in this encounter Plan of Treatment Not on file documented as of this encounter Visit Diagnoses Diagnosis Preoperative testing- Primary Preoperative examination, unspecified documented in this encounter Care Teams Manager Media Relations Relationship Specialty Start Date [place] [address] PCP - General 09/09/19 documented as of this encounter
--- OUTSIDE RECORDS SUMMARY | 2024-04-08 11:14 | XMS_ITS | Encounter Summary ---
Author Organization [facility] Address [address] [place] [address] Care Team Providers Care Delivery Crew Member Name Role Phone Chikiskj Mehul Brittney SMITH Primary Care Provider [phone] Reason for Visit * Reason Onset Date Comments Appointment Related 05/10/2019 Aneurysm Encounter Details Date Type Department Care Team (Late st Contact Info) Description 05/10/2019 Telephone [facility] Neurosurgery - [facility] [address] [place], [place] [phone] Alfonzo Cobb MD 111 [facility], [address] [place] [address] Appointment Related (Aneurysm 05/11) Social [...] on filedocumented in this encounter Care Teams Delivery Crew Member Relationship Specialty Start Date End Date Mehul Valladares DO PCP - General 06/25/18 09/08/19 documented as of this encounter
--- OUTSIDE RECORDS SUMMARY | 2024-04-08 11:14 | XMS_ITS | Encounter Summary ---
Author Organization [facility] Address [address] [place] [address] Care Team Providers Care Unit Controller Name Role Phone Grant Lindsey MD Primary Care Provider [phone] Encounter Details Date Type Department Care Team [...] on filedocumented in this encounter Care Teams Unit Controller Relationship Specialty Start Date End Date Grant Lindsey MD [address] [place] [address] PCP - General 09/09/19 documented as of this encounter
--- OUTSIDE RECORDS SUMMARY | 2024-04-08 11:14 | XMS_ITS | Encounter Summary ---
Author Organization [facility] Address [address] [place] [address] Care Team Providers Care State Attorney Name Role Phone Grant Lindsey MD Primary Care Provider [phone] Reason for Referral * Radiology Services (Routine) - Closed Specialty Diagnoses / Procedures Referred By Nicol sparks Referred To Contact Diagnoses Cerebral aneurysm, nonruptured Procedures IR CAROTID CEREBRAL BILATERAL Alfonzo Cobb MD Phone: tel: fax: Referral ID Status Reason Start Date Expiration Date Visits Re quested Visits Authorized [id number] Closed 09/02/2019 1 1 Reason for Visit * Radiology Services (Routine) - Closed Specialty Diagnoses / Procedures Referred By Nicol sparks Referred To Contact Diagnoses Cerebral aneurysm, nonruptured Procedures IR CAROTID CEREBRAL BILATERAL Alfonzo Cobb MD Phone: tel: fax: Referral ID Status Reason Start Date Expiration Date Visits Re quested Visits Authorized [id number] Closed 09/02/2019 1 1 Encounter Details Date Type Department Care Team (Late st Contact Info) Description 09/14/2019 6:56 EDT - 09/14/2019 13:36 EDT Hospital Encounter [facility] Interventional Radiology - [place] [address] [place], [place] [phone] Alfonzo Cobb MD [address] [place] [address], [facility] [address] [place] [phone] Fe Kirkpatrick PA-C [address] [place] [phone] Jed Griffin MD [address] [place] [address] Hernando Sheppard MD [address] [place] [phone] Cerebral aneurysm, nonruptured Discharge Disposition: Home or [...] 06/11/2019 11:28 EST documented in this encounter Discharge Instructions * [...] this encounter Medications at Time of Discharge ALBUTEROL INHL Inhale 1 Puff as directed as needed. carvedilol (COREG) 6.25 mg tablet Take 6.25 mg by mouth 2 times daily. cyanocobalamin (VITAMIN B-12) 500 mcg tablet Take 1,000 mcg by mouth daily. fluticasone propion/salmeter ol (ADVAIR DISKUS INHALATION) Inhale [...] Code Departure Means Destination Home or Self Prison documented in this encounter Progress Notes * [...] Clavulanate] ??? Lactose Intolerance (Lactase) ??? Neosporin [[id number]] Current Medications: Medications Prior to Admission Medication [...] Sedation?: Yes Hernando Sheppard MD 09/14/2019 8:32 Cosigned by Jed Griffin MD at 09/14/2019 10:39 EDT documented in this encounter Procedure Notes * Hernando Sheppard MD - 09/14/2019 1008 EDT IR Procedure Note Procedure: Right internal carotid angiogram Date Performed: 09/14/2019 Radiologist/Felting Machine Operator(s): Charles Sedation/Anesthesia: IV Fentanyl/Versed, local lidocaine Time [...] anesthesia criteria Hernando Sheppard MD 09/14/2019 10:08 Cosigned by Jed Griffin MD at 09/14/2019 10:39 EDT documented in this encounter Plan of [...] Postoperative Diagnosis: Same Surgeons: Dr. Jed Griffin Felting Machine Operator: Dr. Hernando Sheppard Anesthesia: Local with sedation [...] over an introducer wire for a 5 [place] sheath. Heparinized saline infusion was administered through the sheath and the catheter used during this procedure. A 5 [place] Terumo angled glide catheter was advanced over [...] Postoperative Diagnosis: Same Surgeons: Dr. Jed Griffin Felting Machine Operator: Dr. Hernando Sheppard Anesthesia: Local with sedation [...] over an introducer wire for a 5 [place] sheath.Heparinized saline infusion was administered through the sheath and thecatheter used during this procedure. A 5 [place] Terumo angled glide catheter was advanced over [...] bifurcation. Alfonzo Cobb MD IMG IR ORDERABLES Final Res ult * POCT GLUCOSE, INTERFACED (09/14/2019 7:48 EDT) [facility] Glucose, POC 83 70 - 100 mg/dL 09/14/2019 7:48 EDT [facility] catcher plug ID [id number] 09/14/2019 7:48 EDT [facility] HN LAB POC COMMENT (GLUCOSE) Test Performed by Nursing Services 09/14/2019 7:48 EDT [facility] Blood CAPILLARY BLOOD / Unknown 09/14/2019 7:48 EDT 09/14/2019 7:48 EDT Alfonzo Cobb MD POINT OF CARE TEST ORDERABL ES Final Result [facility] [address] [place] [address] * CREATININE (09/14/2019 7:44 EDT) Creatinine 0.59 0.52 - 1.04 mg/dL 09/14/2019 8:07 EDT [facility] eGFR 101 >60 mL/min/1.7 3m2 09/14/2019 8:07 EDT [facility] Comment:eGFR calculated farhana mcclendon CKD-EPI equation for non- Americans. Multiply eGFR by 1.16 for patients. Blood VENOUS BLOOD / Unknown Venipuncture / Unknown 09/14/2019 7:44 EDT 09/14/2019 7:48 EDT Fe Kirkpatrick PA-C CHEMISTRY & BLOOD GAS OR DERABLES Final Result [facility] [address] [place] [address] documented in this encounter Visit Diagnoses Diagnosis [...] Until Fri09/14/19 at 0956, Sedation, Routine, Preprocedure Given 09/14/2019 9:56 EDT 5.5 mg nitroGLYCERIN (NITROGLYN) 2 % ointment 0.5 Inch 0.5 Inch, topical, NOW X1, 1 dose, On Fri09/14/19 at 0745, Routine Given 09/14/2019 7:50 EDT 0.5 Inches nitroGLYcerin 25 mg/250 mL (100 mcg/mL) infusion 200 mcg 200 mcg, intra-arterial, Once (Without Time Specified), 1 dose, Starting on Fri09/14/19 at 0743, Until Fri09/14/19 at 1536, Routine ondansetron (PF) (ZOFRAN) injection 4 mg 4 mg, intravenous, ONCE PRN, 1 dose, Starting on Fri09/14/19 at 0718, Until Fri09/14/19 at 1536, Nausea, Routine, Preprocedure sodium chloride 0.9 % (NS) infusion 50 mL/hr, intravenous, CONTINUOUS, Starting on Fri09/14/19 at 0745, Until Fri09/14/19 at 1536, Routine, Preprocedure Rate Documented 09/14/2019 [...] (COMPLETED) topical, NOW X1, 1 dose, On e 09/14/19 at 0745 0750 (Given - Provid er: Marjan Jones RN) nitroGLYCERIN (NITROGLYN) 2 % ointment 0.5 Inch (COMPLETED) 0.5 Inch, topical, NOW X1, 1 dose, On 09/14/19 at 0745, Routine 0750 (Given - [...] 0745, Until 09/14/19 at 1536, Routine, Preprocedure 0745 (New Bag [...] 1 09/14/2019 acetaminophen (TYLENOL) tablet 650 mg 1 05/2019 heparin 1,000 unit/mL inject ion 5,000 Units 1 09/14/2019 lidocaine (PF) 10 mg/mL (1 % ) injection 2 mg 1 09/14/2019 lidocaine-prilocaine (EMLA) 2.5-2.5 % cream 1 09/14/2019 nitroGLYcerin 25 mg/250 mL ( 100 mcg/mL) infusion 200 mcg 1 09/14/2019 ondansetron (PF) (ZOFRAN) injection 4 mg 1 09/14/2019 verapamiL (ISOPTIN) injection 2.5 mg 1 05/2019 Discharge Count Last Ordered Date First Orde red Date DISCHARGE PATIENT 1 09/14/2019 documented in this encounter Care Teams State Attorney Relationship Specialty Start Date End Date Grant Lindsey MD [address] [place] [address] PCP - General 09/09/19 documented as of this encounter
--- OUTSIDE RECORDS SUMMARY | 2024-04-08 11:14 | XMS_ITS | Encounter Summary ---
Author Organization [facility] Address [address] [place] [address] Care Team Providers Care Hand Slitter Name Role Phone Renettabrittney Mehul Brittney SMITH Primary Care Provider [phone] Encounter Details Date Type Department Care Team (Late st Contact Info) Description 09/07/2019 Orders Only [facility] Interventional Radiology - [facility] [address] [place] [address] Fe Kirkpatrick PA-C [address] [place] [address], [address] [place] [address] Social History Tobacco Use Types [...] on filedocumented in this encounter Care Teams Hand Slitter Relationship Specialty Start Date End Date Mehul Valladares DO PCP - General 06/25/18 09/08/19 documented as of this encounter
--- OUTSIDE RECORDS SUMMARY | 2024-04-08 11:14 | XMS_ITS | Encounter Summary ---
Author Organization [facility] Address [address] [place] [address] Care Team Providers Care Medical Research Associate Name Role Phone Grant Lindsey MD Primary Care Provider [phone] Reason for Visit * Reason Onset Date Comments Appointment Related 09/10/2019 Encounter Details Date Type Department Care Team (Late st Contact Info) Description 09/10/2019 Telephone [facility] Interventional Rad Clinic - [facility] [address] [place] [address] Justin Singh, BRY [address] [place] [address] Appointment Related Social History Tobacco Use Types [...] filedocumented in this encounter Care Teams Medical Research Associate Relationship Specialty Start Date End Date Grant [place] [address] PCP - General 09/09/19 documented as of this encounter
--- OUTSIDE RECORDS SUMMARY | 2024-04-08 11:14 | XMS_ITS | Encounter Summary ---
Author Organization [facility] Address [address] [place] [address] Care Team Providers Care Public Health Training Assistant Name Role Phone Grant Lindsey MD Primary Care Provider [phone] Reason for Visit * Reason Onset Date Comments Appointment Related 10/27/2019 Encounter Details Date Type Department Care Team (Late st Contact Info) Description 10/27/2019 Telephone [facility] Neurosurgery - [facility] [address] [place], [place] [phone] Alfonzo Cobb MD 111 [facility], [address] [place] [address] Appointment Related Social History Tobacco [...] on filedocumented in this encounter Care Teams Public Health Training Assistant Relationship Specialty Start Date End Date Grant Lindsey MD [address] [place] [address] PCP - General 09/09/19 documented as of this encounter
--- OUTSIDE RECORDS SUMMARY | 2024-04-08 11:14 | XMS_ITS | Encounter Summary ---
Author Organization [facility] Address [address] [place] [address] Care Team Providers Care Machine Slat Basket Maker Name Role Phone Renettabrittney Mehul Brittney SMITH Primary Care Provider [phone] Reason for Visit * Reason Onset Date Comments Appointment Related 02/04/2019 TODAY - ride Encounter Details Date Type Department Care Team (Late st Contact Info) Description 02/04/2019 Telephone [facility] Neurosurgery - [facility] [address] [place], [place] [phone] Alfonzo Cobb MD 111 [facility], [address] [place] [address] Appointment Related (TODAY - ride) [...] filedocumented in this encounter Care Teams Machine Slat Basket Maker Relationship Specialty Start Date End Date Mehul Valladares DO PCP - General 06/25/18 09/08/19 documented as of this encounter
--- OUTSIDE RECORDS SUMMARY | 2024-04-08 11:14 | XMS_ITS | Encounter Summary ---
Author Organization [facility] Address [address] [place] [address] Care Team Providers Care Technical Expert Name Role Phone Grant Lindsey MD Primary Care Provider [phone] Encounter Details Date Type Department Care Team [...] on filedocumented in this encounter Care Teams Technical Expert Relationship Specialty Start Date End Date Grant [place] [address] [address] [place] [address] PCP - General 09/09/19 documented as of this encounter
--- OUTSIDE RECORDS SUMMARY | 2024-04-08 11:14 | XMS_ITS | Encounter Summary ---
Author Organization [facility] Address [address] [place] [address] Care Team Providers Care Staple Laster Name Role Phone Grant Lindsey MD Primary Care Provider [phone] Reason for Visit * Reason Onset Date Comments Appointment Related 09/13/2019 Encounter Details Date Type Department Care Team (Late st Contact Info) Description 09/13/2019 Telephone [facility] Neurosurgery - [facility] [address] [place], [place] [phone] Alfonzo Cobb MD 111 [facility], [address] [place] [address] Appointment Related Social History Tobacco [...] on filedocumented in this encounter Care Teams Staple Laster Relationship Specialty Start Date End Date Grant Lindsey [place] [address] PCP - General 09/09/19 documented as of this encounter
--- OUTSIDE RECORDS SUMMARY | 2024-04-08 11:15 | XMS_ITS | Encounter Summary ---
Author Organization [facility] Address [address] [place] [address] Care Team Providers Care Avionics Test Technician Name Role Phone ChikisMehul underwood Brittney SMITH Primary Care Provider Reason for Visit * Reason Onset Date Comments Other 12/17/2018 Encounter Details Date Type Department Care Team (Late st Contact Info) Description 12/17/2018 Telephone [facility] Ophthalmology - Main [place] [address] [place], [place] [phone] Rigoberto Dos Santos MD [address] [place] [address] [address] [place] [address] Other Social History Tobacco Use Types Packs/Day [...] patient twice * Telephone Encounter - George Smith RN - 12/17/2018 1501 EDT 2020 form filled out and faxed to [facility] to have Dr Dos Santos sign next when he is back. Just waiting for appointment date and time. Hilary to call and schedule this. George Smith RN 12/17/2018 15:01 * Telephone Encounter - George Smith RN - 12/17/2018 1423 EDT Hilary to call and schedule before the weekend. 2020 needs to be filled out and fax[place] to [place] once done. George Smith RN 12/17/2018 [...] filedocumented in this encounter Care Teams Avionics Test Technician Relationship Specialty Start Date End Date Mehul Valladares DO PCP - General 06/25/18 09/08/19 documented as of this encounter
--- OUTSIDE RECORDS SUMMARY | 2024-04-08 11:15 | XMS_ITS | Encounter Summary ---
Author Organization [facility] Address [address] [place] [address] Care Team Providers Care Recreational Specialist Name Role Phone Unavailable Primary Care Provider Unavailabl e Encounter Details Date Type Department Care Team (Late st Contact Info) Description 04/29/2006 Office Visit [facility] [address] [place] [address] Saturnino Singleton MD [address] [place] [id number] Social History Tobacco Use Types Packs/Day Years Used Date Smoking Tobacco: Never Assessed Comments Unknown Sex and Gender Information Value Date Recorded Sex Assigned at Not on file Legal Sex Female 18:23 EST Gender Identity Female 09/09/2019 13:11 EDT Sexual Orientation Not on file documented as of this encounter Progress Notes * Saturnino Singleton, DO - 06/08/2009 1034 EST Department - Physician [...] 04/30/2006 0:17) Addenda enrico KALLIE DARLING VisitID: [id number] Date: 04/29/2006 04/29/2006 17:09 ASIYA HENSLEY REFERS [...] (1 months). Pain level now: 8/10. Treatment IS CONSULTANT: (dr hensley). PAST HX: Diabetes mellitus. SOCIAL HX: Smoker. Arrived by private vehicle. --1914 Suzanne Franco R.N.. NURSING PROGRESS NOTES Progress Patient transported to [facility] by stretcher with [employer]. --2210 Emerald Wells R.N. late entry - [...] flushed with saline and blood drawn. --2148 Shania Villasenor. DISPOSITION / DISCHARGE BP: 138 / 89. [...] given to the patient (vicodin starter # [id number] and script ). Patient verbalized understanding. The patient was discharged home and accompanied by family. The patient left the Emergency Department ambulatory and via private vehicle. Family member driving. --0017 Brad Guzman R.N.. Shania Terrell R.N., R.N., R.N. Locked/Released at 04/30/2006 0:17 by Brad Guzman R.N. documented in this encounter Plan of Treatment Not on file documented as of this encounter Visit Diagnoses Not on filedocumented in this encounter
--- OUTSIDE RECORDS SUMMARY | 2024-04-08 11:15 | XMS_ITS | Encounter Summary ---
Author Organization [facility] Address [address] [place] [address] Care Team Providers Care Laborer Tin Can Name Role Phone Unavailable Primary Care Provider Unavailabl e Encounter Details Date Type Department Care Team (Late st Contact Info) Description 05/01/2006 10:39 EST Hospital Encounter [facility] [place] conversion [address] [place] [address] Jed Jean Baptiste MD Social History Tobacco [...]
--- OUTSIDE RECORDS SUMMARY | 2024-04-08 11:15 | XMS_ITS | Encounter Summary ---
Author Organization [facility] Address [address] [place] [address] Care Team Providers Care Senior Assistant Manager Name Role Phone Mehul Valladares DO Primary Care Provider [phone] Reason for Referral * Radiology Services (Routine/Next Available) - Closed Specialty Diagnoses / Procedures Referred By Contac t Referred To Contact Diagnoses Eye pain, left Visual field defects Procedures CT HEAD W/WO CONTRAST Rigoberto Dos Santos MD Phone: tel: fax: Referral ID Status Reason Start Date Expiration Date Visits Re quested Visits Authorized [id number] Closed 06/25/2018 1 1 * (Routine) - Closed Specialty Diagnoses / Procedures Referred By Contac t Referred To Contact Diagnoses Eye pain, left Visual field defects Procedures OCT (OPHTHALMIC DIGITAL IMAGING, POSTERIOR SEGMENT) Rigoberto Dos Santos MD Phone: tel: fax: Referral ID Status Reason Start Date Expiration Date Visits Re quested Visits Authorized [id number] Closed 06/25/2018 1 1 * (Routine) - Closed Specialty Diagnoses / Procedures Referred By Contac t Referred To Contact Diagnoses Eye pain, left Visual field defects Procedures VISUAL FIELD EXAM, EXTENDED Rigoberto Dos Santos MD Phone: tel: fax: Referral ID Status Reason Start Date Expiration Date Visits Re quested Visits Authorized [id number] Closed 06/25/2018 1 1 Reason for Visit * Reason Comments Eye Problem Referred by Dr. Anderson ett for evaluation of decreased vision and pain left eye. Both pain and decreased vision longstanding (10yr) but in the past 2 years pain is 10/10. Pressure in left eye radiates to muslim & is constant. Has burning and throbbing. Neurologic Problem Left muslim pain con stant - scalp tender left [...] Info) Description 06/25/2018 8:00 EDT Office Visit [facility] Ophthalmology - [address] [address] Rigoberto Dos Santos MD [address] [place] [address], Level 2 [place] [id number] Social History Tobacco Use Types Packs/Day Years [...] MD, MD - 06/25/2018 0000 EDT [facility] NEURO-OPHTHALMOLOGY CONSULTATION - 06/25/2018 Yen Tolliver OD [facility] [address] Tolliver: Thank you for this [...] her eye. This pain radiates into the muslim and it is constantly present. Thepatient also [...] chart, she has seen Dr Greenwood at [facility] last April, as well as a [...] she can be seen locally or in [facility] for treatment of headaches as I suspect [...] Sincerely, Rigoberto Dos Santos MD Diplomate, the [place] Board [employer] & Neurology upsetting machine operator Department of Ophthalmology NEURO-OPHTHALMOLOGY cc: Yen Tolliver OD, [facility] [address] [address] documented in this encounter Plan of Treatment [...] H57.12-Ocular pain, left eye-ICD-10 H53.40-Unspecified visual field [id number]; suggestion of right superior quad defect Technique: [...] H57.12-Ocular pain, left eye-ICD-10 H53.40-Unspecified visual field [id number]; suggestion of right superior quad defect Technique: [...] artery. Rigoberto Dos Santos MD IMG CT ORDERABLES Final Result documented in this encounter Visit Diagnoses Diagnosis Eye pain, left- Primary Visual field defects Visual field defect, unspecified documented in this encounter Historical Medications * This list may reflect changes made after this encounter. insulin aspart U-100 (NOVOLOG FLEXPEN) 100 unit/mL [...] Color Right eye Left eye Ishihara 12/23 8/11 Stereo Fly: - Circles: 0/9 Slit Lamp Exam Right eye Left eye Lids/Lashes 3+ Dermatochalasis - upper lid 3 + Dermatochalasis - upper lid Anterior Chamber Deep and quiet Deep and quiet Iris Round and reactive Round and romina ctive Wearing Rx Sphere Cylinder [place] Add Right eye -0.50 +0.25 141 +2.25 Left eye -0.75 +0.50 032 +2.25 Type: Bifocal Manifest Refraction Sphere Cylinder [place] Dist VA Add Near VA Right eye -0.50 +0.50 135 20/20-1 +2.75 J3 Left eye -0.75 +0.25 045 20/25-2 +2.75 NI Care Teams Senior Assistant Manager Relationship Specialty Start Date End Date Mehul Valladares DO PCP - General 06/25/18 09/08/19 documented as of this encounter
--- OUTSIDE RECORDS SUMMARY | 2024-04-08 11:15 | XMS_ITS | Encounter Summary ---
Author Organization [facility] Address [address] [place] [address] Care Team Providers Care Apple Picking Supervisor Name Role Phone Unavailable Primary Care Provider Unavailabl e Encounter Details Date Type Department Care Team (Late st Contact Info) Description 05/08/2001 Results Only [facility] [place] conversion [address] [place] [address] Héctor Bush MD [address] [place] [address] Social History Tobacco Use Types Packs/Day Years [...] when reading/interpreti ng unformatted reports. Name: ? HARDWARE INSTALLATION COORDINATORKALLIE DUENAS ? Accession #: ? [id number] ? : ? 1960 (Age: 40) ??F [...] ? Received in Hollande' s fixative labelled Banana Expert and bx esophagus 35 cm are multiple, irregularly shaped, slightly lobular, soft tissue fragments that range from 0.2 x 0.2 x 0.1 cm to 0.3 x 0.2 x 0.1 cm. ??The specimen is submitted entirely in cassettes (A1) and (A2). ??(Betty Vang)/dtl End of Report [facility] 05/08/2001 05/08/2001 15: 12 EST us Héctor Bush MD PATHOLOGY ORDERABLES Final Result Performing Organization Address City/State/[facility] Co de Phone Number [facility] [address] [address] documented in this encounter Visit Diagnoses Not on filedocumented in this encounter
--- OUTSIDE RECORDS SUMMARY | 2024-04-08 11:15 | XMS_ITS | Encounter Summary ---
Author Organization [facility] Address [address] [place] [address] Care Team Providers Care Software Test And Validation Engineer Name Role Phone ChikisMehul underwood Brittney SMITH Primary Care Provider Reason for Visit * Reason Onset Date Comments Other 09/29/2018 Encounter Details Date Type Department Care Team (Late st Contact Info) Description 09/29/2018 Telephone [facility] Ophthalmology - Main [place] [address] [place], [place] [phone] Rigoberto Dos Santos MD [address] [place] [address] [address] [place] [address] Other Social History Tobacco Use [...] filedocumented in this encounter Care Teams Software Test And Validation Engineer Relationship Specialty Start Date End Date Mehul Valladares DO PCP - General 06/25/18 09/08/19 documented as of this encounter
--- OUTSIDE RECORDS SUMMARY | 2024-04-08 11:15 | XMS_ITS | Encounter Summary ---
Author Organization [facility] Address [address] [place] [address] Care Team Providers Care Cutter Grinder Operator Name Role Phone Mehul Valladares DO Primary Care Provider [phone] Encounter Details Date Type Department Care Team (Late st Contact Info) Description 10/15/2018 Results Only Imaging [facility] [phone] Unknown, Provider, MD Social History Tobacco Use Types Packs/Day [...] on filedocumented in this encounter Care Teams Cutter Grinder Operator Relationship Specialty Start Date End Date Mehul Valladares DO PCP - General 06/25/18 09/08/19 documented as of this encounter
--- OUTSIDE RECORDS SUMMARY | 2024-04-08 11:15 | XMS_ITS | Encounter Summary ---
Author Organization [facility] Address [address] [place] [address] Care Team Providers Care Engine Repairer Production Name Role Phone Jennie Resendiz MD Primary Care Provider [phone] Encounter Details Date Type Department Care Team (Late st Contact Info) Description 01/10/2011 Results Only [facility] Laboratory Services - [facility] ([facility] [address] [place] [address] Héctor Shannon MD [address] [place] [address] Social History Tobacco Use Types Packs/Day Years [...] when reading/interpreting unformatted reports. ? Name: ? TRIMMING PRESS OPERATOR, KALLIE ? Accession #: ? [id number] ? : ? 1960 (Age: 50) ??F ? Collect Date: ? 01/10/2011 ? Location: ? [facility] ? Receive Date: ? 01/11/2011 ? Provider: HÉCTOR ELEAZAR MD ? Copy to: LIZETTE W BESCH SANDING MACHINE TENDER AUTOMATIC ? Final Pathologic Diagnosis: ? A. ?Colon, [...] C. ??Positive and negative controls stained appropriately. Mold Chipper sections of this case ?? have been [...] ??performance ? characteristics have been determined by [facility]. ??This ? laboratory is certified under the [...] Gross Description: ? Received in formalin labelled Repairer Shoe Sticks, Kallie and 1 ??sigmoid polyps ?? x2 are six florian-pink irregular soft tissue fragments ranging from 0.2 x 0.2 x ?? 0.2 cm to 0.4 x 0.3 x 0.2 cm. ??The specimen is entirely submitted as (A1) and ?? (A2). ? Received in formalin labelled Repairer Shoe Sticks, Kallie and 2 ??rectal polyps x2 are two florian-pink irregular soft tissue fragments measuring 0.2 x 0.1 x 0.1 cm and ?? 0.3 x 0.3 x 0.2 cm. ??The specimen is entirely submitted as (B). ? Received in formalin labelled Kallie Darling and 3 ??esophagus at 38 cm ?? are five florian-pink irregular soft tissue fragments ranging from 0.2 x 0.1 x 0.1 ?? cm to 0.6 x 0.3 x 0.3 cm. ??The specimen is entirely submitted as (C1) and (C2). (Edmundo Maravilla)/[facility] ? End of Report ? [facility] 01/10/2011 01/11/2011 13: 11 EDT us Héctor Shannon MD PATHOLOGY ORDERABLES Final Result [facility] [address] [place] [address] documented in this encounter Visit Diagnoses Not on filedocumented in this encounter Care Teams Engine Repairer Production Relationship Specialty Start Date End Date Jennie Resendiz MD [address] [place] [phone] PCP - General 11/15/09 06/23/18 documented as of this encounter
--- OUTSIDE RECORDS SUMMARY | 2024-04-08 11:15 | XMS_ITS | Encounter Summary ---
Author Organization [facility] Address [address] [place] [address] Care Team Providers Care Psych Therapist Name Role Phone Jennie Resendiz MD Primary Care Provider [phone] Reason for Visit * Reason Onset Date Comments New/Evolving Symptoms 11/10/2013 Referral Request 11/10/2013 Encounter Details Date Type Department Care Team (Late st Contact Info) Description 11/10/2013 Orders Only [facility] Neurophysiology - [facility] [address] [place] [address] Cj Truong MD [address] [place] [address] [address] [place] [address] Unspecified ptosis of eyelid (Primary Dx) Social [...] Primary documented in this encounter Care Teams Psych Therapist Relationship Specialty Start Date End Date Jennie Resendiz MD [address] [place] [phone] PCP - General 11/15/09 06/23/18 documented as of this encounter
--- OUTSIDE RECORDS SUMMARY | 2024-04-08 11:15 | XMS_ITS | Encounter Summary ---
Author Organization [facility] Address [address] [place] [address] Care Team Providers Care Barber Tool Sharpener Name Role Phone ChikisMehul underwood Brittney SMITH Primary Care Provider Reason for Visit * Reason Onset Date Comments Other 07/15/2018 Encounter Details Date Type Department Care Team (Late st Contact Info) Description 07/15/2018 Telephone [facility] Ophthalmology - Main [place] [address] [place], [place] [phone] Rigoberto Dos Santos MD [address] [place] [address] 2 [place] [address] Other Social History Tobacco Use [...] anything to help. * Telephone Encounter - [facility] - 07/15/2018 0855 EDT Pt called in and said that she needs a referral to have her cat scan done on 07/24/2018 @ 4 O'Clock.The referral needs to go to [facility] and medicaid. documented in this encounter Plan of Treatment Not on file documented as of this encounter Visit Diagnoses Not on filedocumented in this encounter Care Teams Barber Tool Sharpener Relationship Specialty Start Date End Date Mehul Valladares DO PCP - General 06/25/18 09/08/19 documented as of this encounter
--- OUTSIDE RECORDS SUMMARY | 2024-04-08 11:15 | XMS_ITS | Encounter Summary ---
Author Organization [facility] Address [address] [place] [address] Care Team Providers Care Linux Engineer Name Role Phone ChikisMehul underwood Brittney SMITH Primary Care Provider Reason for Visit * Reason Onset Date Comments Results 10/09/2018 Encounter Details Date Type Department Care Team (Late st Contact Info) Description 10/09/2018 Telephone [facility] Ophthalmology - Main [place] [address] [place], [place] [phone] Rigoberto Dos Santos MD [address] [place] [address] [address] [place] [address] Results Social History Tobacco Use Types Packs/Day [...] on filedocumented in this encounter Care Teams Linux Engineer Relationship Specialty Start Date End Date Mehul Valladares DO PCP - General 06/25/18 09/08/19 documented as of this encounter
--- OUTSIDE RECORDS SUMMARY | 2024-04-08 11:15 | XMS_ITS | Encounter Summary ---
Author Organization [facility] Address [address] [place] [address] Care Team Providers Care Beam Dyer Recessed Vat Name Role Phone Jennie Resendiz MD Primary Care Provider [phone] Encounter Details Date Type Department Care Team (Late st Contact Info) Description 10/20/[address] [facility] [phone] Malu Galeano APRN [address] [place], [place] [address] Social History Tobacco Use Types Packs/Day Years [...] ? KALLIE DARLING ? Accession #: ? [id number] ? : ? 1960 (Age: 54) ??F [...] Document reviewed and electronically signed by: ? Carlie Morgan, CT(ASCP) ? Report ??Date: 11/01/2014 13:14 HPV with Pap Test ? Date Ordered: ? 11/01/2014 ? Status: ?? Signed Out ?Date Complete: ? 11/02/2014 ? By: ??System Interface ? Date Reported: ? 11/02/2014 ? Interpretation RESULT: Negative for HPV. No E6 or E7 mRNA is detected from HPV types 16,18,31,33,35, 39,45,51,52,56,58, 59,66, and 68 by check writer mediated amplification. Comments Document reviewed and electronically signed by: ? System Interface ? Report date: 11/02/2014 By the signature above, the attending physician certifies that he/she has personally conducted a gross and/or microscopic examination of the described specimens and rendered or confirmed the above diagnosis. End of Report [facility] 10/20/2014 10/24/2014 us Malu Galeano HOUSEHOLD REFRIGERATION MECHANIC PATHOLOGY ORDERABLES Final Re sult Performing Organization Address City/State/[facility] Co de Phone Number [facility] [address] [place] [address] documented in this encounter Visit Diagnoses Not on filedocumented in this encounter Care Teams Beam Dyer Recessed Vat Relationship Specialty Start Date End Date Jennie Resendiz MD [address] [place] [phone] PCP - General 11/15/09 06/23/18 documented as of this encounter
--- OUTSIDE RECORDS SUMMARY | 2024-04-08 11:15 | XMS_ITS | Encounter Summary ---
Author Organization [facility] Address [address] [place] [address] Care Team Providers Care Dairy Helper Name Role Phone Unavailable Primary Care Provider Unavailabl e Encounter Details Date Type Department Care Team (Late st Contact Info) Description 06/05/2000 Results Only [facility] - [place] conversion [address] [place] [address] Lynnette Olsen, CONDUIT INSTALLER [address] [facility] [address] [place] [address] Social History Tobacco Use Types [...] when reading/interpreti ng unformatted reports. Name: ? ROCKET ENGINE COMPONENT MECHANIC, KALLIE A ? Accession #: ? [id number] : ? 1960 (Age: 39) ??F ?Collect Date: ? 06/05/2000 Location: ? [facility] ? Receive Date: ? 06/09/2000 Provider: ?LYNNETTE OLSEN NP Copy to: ? Specimen/Source: ?Conventional Pap Test, Vagina Last Menstrual Period: ? 1993 ? SPECIMEN ADEQUACY ? Satisfactory for evaluation. GENERAL CATEGORIZATION ? Within Normal Limits ? Document reviewed and electronically signed by: ? Kaila Domínguez, SCT(ASCP) ? Report Date: ??06/10/2000 07:32 End of Report [facility] 06/05/2000 06/09/2000 us Lynnette Olsen NP PATHOLOGY ORDERABLES Final R esult [facility] [address] [place] [address] documented in this encounter Visit Diagnoses Not on filedocumented in this encounter
--- OUTSIDE RECORDS SUMMARY | 2024-04-08 11:15 | XMS_ITS | Encounter Summary ---
Author Organization [facility] Address [address] [place] [address] Care Team Providers Care Laborer Construction Or Leak Gang Name Role Phone Unavailable Primary Care Provider Unavailabl e Encounter Details Date Type Department Care Team (Late st Contact Info) Description 05/12/1999 Results Only [facility] - Map conversion [address] [place] [address] Héctor Bush MD [address] [place] [address] Social History Tobacco Use Types Packs/Day Years [...] when reading/interpreti ng unformatted reports. Name: ? SCIENTIFIC RESEARCH ASSOCIATEKALLIE DUENAS ? Accession #: ? [id number] ? : ? 1960 (Age: 38) ??F [...] GROSS: ? Received in Hollande's fixative labelled Ratcynthiaurn and #1 ? esophagus 35 cc are six biopsies ranging in size from 0.1 to 0.3 ? cm in maximum dimension. ??Submitted entirely as (A) and (B). ? (Dr. Walters)/[facility] ?? End of Report PET[facility] ARGU[facility] 05/12/1999 11:3 0 EST 05/12/1999 11:31 EST us Héctor Bush MD PATHOLOGY ORDERABLES Final Result [facility] [address] [place] [address] documented in this encounter Visit Diagnoses Not on filedocumented in this encounter
--- OUTSIDE RECORDS SUMMARY | 2024-04-08 11:15 | XMS_ITS | Encounter Summary ---
Author Organization [facility] Address [address] [place] [address] Care Team Providers Care Pre Sales Architect Name Role Phone Unavailable Primary Care Provider Unavailabl e Encounter Details Date Type Department Care Team (Late st Contact Info) Description 12/15/2005 Office Visit [facility] - [place] conversion [address] [place] [address] Jed Boyd MD [address] [facility], Level [address] [place] [address] Social History Tobacco Use Types Packs/Day Years Used Date Smoking Tobacco: Never Assessed Comments Unknown Sex and Gender Information Value Date Recorded Sex Assigned at Not on file Legal Sex Female 18:23 EST Gender Identity Female 09/09/2019 13:11 EDT Sexual Orientation Not on file documented as of this encounter Progress Notes * Jed Boyd MD - 06/07/2009 8453 EST Department - Physician Summary Registration Date/Time: [...] with friend). Pain level now: 01/21. Treatment MEDICAL PRACTICE ADMINISTRATOR: Symptoms did not improve after treatment. ( [...] ambulatory and via private vehicle. Spouse driving. --8197 Ismael Mendenhall R.N., E.M.T. Elma Rickards R.N. Cindy Taylor, R.N. Locked/Released at 12/15/2005 12:38 by Ketty Valencia R.N. documented in this encounter Plan of Treatment Not on file documented as of this encounter Visit Diagnoses Not on filedocumented in this encounter
--- OUTSIDE RECORDS SUMMARY | 2024-04-08 11:15 | XMS_ITS | Encounter Summary ---
Author Organization [facility] Address [address] [place] [address] Care Team Providers Care Pharmaceutical Operator Name Role Phone Jennie Resendiz MD Primary Care Provider [phone] Encounter Details Date Type Department Care Team (Late st Contact Info) Description 11/13/2009 Results Only [facility] - [facility] ([facility] [address] [place] [address] Héctor Shannon MD [address] [place] [address] Social History Tobacco Use Types Packs/Day Years [...] ? KALLIE WHITE ? Accession #: ? [id number] ? : ? 1960 (Age: 49) ??F ? Collect Date: ? 11/13/2009 ? Location: ? [facility] ? Receive Date: ? 11/14/2009 ? Provider: HÉCTOR ELEAZAR MD ? Copy to: LIZETTE W BESCH NUCLEAR PLANT CONSTRUCTION WORKER ? Final Pathologic Diagnosis: ? Gallbladder, cholecystectomy: [...] Gross Description: ? Received in formalin labelled Kallie White and gallbladder is an ?? 8.0 cm [...] [facility] 11/13/2009 11/14/2009 9:5 7 EDT us Héctor Shannon MD PATHOLOGY ORDERABLES Final Result Performing Organization Address [facility]/State/ZIP Co de Phone Number [facility] [address] [place] [address] documented in this encounter Visit Diagnoses Not on filedocumented in this encounter Care Teams Pharmaceutical Operator Relationship Specialty Start Date End Date Jennie Resendiz MD [address] [place] [phone] PCP - General 11/15/09 06/23/18 documented as of this encounter
--- OUTSIDE RECORDS SUMMARY | 2024-04-08 11:15 | XMS_ITS | Encounter Summary ---
Author Organization [facility] Address [address] [place] [address] Care Team Providers Care Bicycle Rental Clerk Name Role Phone Mehul Valladares DO Primary Care Provider [phone] Reason for Referral * Radiology Services (Routine) - Closed Specialty Diagnoses / Procedures Referred By Nicol sparks Referred To Contact Diagnoses Aneurysm (arteriovenous) of coronary vessels Procedures CT ANGIO HEAD W CONTRAST Rigoberto Dos Santos MD Phone: tel: fax: Referral ID Status Reason Start Date Expiration Date Visits Re quested Visits Authorized [id number] Closed 10/02/2018 12/31/2018 1 1 Encounter Details Date Type Department Care Team (Late st Contact Info) Description 09/30/[address] [facility] Ophthalmology - Main [place] [address] [place], [place] [phone] Rigoberto Dos Santos MD 1 [facility], Level [address] [place] [address] Aneurysm (arteriovenous) of coronary vessels (Primary Dx) [...] vessels documented in this encounter Care Teams Bicycle Rental Clerk Relationship Specialty Start Date End Date Mehul Valladares DO PCP - General 06/25/18 09/08/19 documented as of this encounter
--- OUTSIDE RECORDS SUMMARY | 2024-04-08 11:15 | XMS_ITS | Encounter Summary ---
Author Organization [facility] Address [address] [place] [address] Care Team Providers Care Director Of Tax Services Name Role Phone Mehul Valladares DO Primary Care Provider [phone] Encounter Details Date Type Department Care Team (Late st Contact Info) Description 07/31/2018 Orders Only [facility] Ophthalmology - Main [place] [address] [place], [place] [phone] Rigoberto Dos Santos MD [address] [place] [address] 2 [place] [address] Social History Tobacco Use Types Packs/Day Years [...] filedocumented in this encounter Care Teams Director Of Tax Services Relationship Specialty Start Date End Date Mehul Valladares DO PCP - General 06/25/18 09/08/19 documented as of this encounter
--- OUTSIDE RECORDS SUMMARY | 2024-04-08 11:15 | XMS_ITS | Encounter Summary ---
Author Organization [facility] Address [address] [place] [address] Care Team Providers Care Manager Wound Name Role Phone Jennie Resendiz MD Primary Care Provider Encounter Details Date Type Department Care Team (Late st Contact Info) Description 10/06/2017 Results Only [facility] [phone] Ana Heller, DO [address] [phone] Social History Tobacco Use Types [...] when reading/interpret ing unformatted reports. Name: ? KALLIE DARLING ? Accession #: ? [id number] ? : ? 1960 (Age: 57) ??F ? Collect Date: ? 10/06/2017 ? Location: ? [facility] ? Receive Date: ? 10/07/2017 ? Provider: ANA HELLER DO Copy to: ADI Lugo DALTON DO ? Final Pathologic Diagnosis: STOMACH, ANTRUM, [...] (ASCP) 10/07/2017 5:12 PM End of Report [facility] 10/06/2017 15:4 9 EDT 10/07/2017 15:49 EDT us Ana Heller DO PATHOLOGY ORDERABLES Final Resul t [facility] [address] [place] [address] documented in this encounter Visit Diagnoses Not on filedocumented in this encounter Care Teams Manager Wound Relationship Specialty Start Date End Date Jennie Resendiz MD [address] [place] [phone] PCP - General 11/15/09 06/23/18 documented as of this encounter
--- OUTSIDE RECORDS SUMMARY | 2024-04-08 11:15 | XMS_ITS | Encounter Summary ---
Author Organization [facility] Address [address] [place] [address] Care Team Providers Care Flag Decorator Name Role Phone Mehul Valladares DO Primary Care Provider [phone] Reason for Referral * Consult (Routine/Next Available) - Denied Specialty Diagnoses / Procedures Referred By Nicol sparks Referred To Contact Neurosurgery Diagnoses Aneurysm of middle cerebral artery Rigoberto Dos Santos MD Phone: tel: fax: Antoine Castaneda MD Phone: tel: fax: Referral ID Status Reason Start Date Expiration Date V isits Requested Visits Authorized [id number] Denied Specialty Services Required 09/29/2018 1 0 Question Answer Reason for Request: 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
--- OUTSIDE RECORDS SUMMARY | 2024-04-08 11:15 | XMS_ITS | Encounter Summary ---
Author Organization [facility] Address [address] [place] [address] Care Team Providers Care Coal Cutting Machine Operator Name Role Phone Chikiskj Mehul Brittney SMITH Primary Care Provider Reason for Visit * Reason Onset Date Comments Patient Outreach 09/21/2018 Encounter Details Date Type Department Care Team (Late st Contact Info) Description 09/21/2018 Telephone [facility] Ophthalmology - Main [place] [address] [place], [place] [id number] Rigoberto Dos Santos MD [address] [place] [address] 2 [place] [address] Patient Outreach Social History Tobacco Use Types [...] filedocumented in this encounter Care Teams Coal Cutting Machine Operator Relationship Specialty Start Date End Date Mehul Valladares DO PCP - General 06/25/18 09/08/19 documented as of this encounter
--- OUTSIDE RECORDS SUMMARY | 2024-04-08 11:15 | XMS_ITS | Encounter Summary ---
Author Organization [facility] Address [address] [place] [address] Care Team Providers Care Facility Rehab Director Name Role Phone Unavailable Primary Care Provider Unavailabl e Encounter Details Date Type Department Care Team (Latest Contact Info) Description 04/29/2006 15:57 EST - 04/30/2006 11:59 EST Hospital Encounter [facility] Emergency Department - [facility] [address] [place], [place] [address] Emergency, Default, MD Discharge Disposition: Home or [...] left lower extremity. D: ??04/30/06 T: ??05/01/06 /[facility] I have personally reviewed the [...] in the right or left lower extremity. /[facility] I have personally reviewed the images and the above interpretation and agree with the findings. Saturnino Singleton MD [facility] US ORDERABLES Final Result * (ABNORMAL) GLUCOSE, SERUM (04/29/2006 21:10 EST) Pathologist [facility] Glucose, Serum 117(H) 70 - 100 mg/dl [facility] 04/29/2006 21:1 0 EST 04/29/2006 21:18 EST Default Emergency MD CHEMISTRY & BLOOD GAS ORDER [place] Final Result Performing Organization Address [facility] de Phone Number [facility] [address] [place] [address] * ELECTROLYTES (04/29/2006 21:10 EST) [facility] Sodium 141 136 - 145 mEq/L [facility] Potassium 4.5 3.5 - 5.0 mEq/L [facility] Chloride 103 96 - 110 mEq/L [facility] CO2 26 24 - 32 mEq/L [facility] 04/29/2006 21:1 0 EST 04/29/2006 21:18 EST [facility] Emergency CHEMISTRY & BLOOD GAS ORDER [place] Final Result Performing Organization Address [facility] de Phone Number [facility] [address] [place] [address] * HOLD GREEN TOP (04/29/2006 21:10 EST) Pathologist [facility] Hold Green Top Hold for further testing. Specimen will be held for 30 days. [facility] 04/29/2006 21:1 0 EST 04/29/2006 21:18 EST [facility] Emergency MD LAB INFO SERVICE AND SUPPOR T & PHONE RESULT Final Result Performing Organization Address [facility] de Phone Number [facility] [address] [place] [address] * D-DIMER (04/29/2006 21:10 EST) [facility] D-Dimer <0.22 <0.50 ug FEU/ml [facility] [...] 04/29/2006 21:1 0 EST 04/29/2006 21:18 EST us Default Emergency MD HEMATOLOGY & PF4 ORDERABLES Final Result Performing Organization Address [facility] de Phone Number [facility] [address] [place] [address] * CREATININE (04/29/2006 21:10 EST) Pathologist [facility] Creatinine 0.91 0.7 - 1.5 mg/dl [facility] GFR, Calculated >60 ml/min/1.7 3m2 [facility] 04/29/2006 21:1 0 EST 04/29/2006 21:18 EST us Default Emergency MD CHEMISTRY & BLOOD GAS ORDER [place] Final Result Performing Organization Address [facility] de Phone Number [facility] [address] [place] [address] * (ABNORMAL) HEMAGRAM AND DIFFERENTIAL (04/29/2006 21:10 EST) WBC 11.02 4.0 - 12.4 K/cmm [facility] RBC 4.97 3.86 - 5.04 M/cmm [facility] Hemoglobin 15.0 11.6 - 15.2 gm/dl [facility] HCT 43.4 34.9 - 44.4 % [facility] MCV 87 81 - 98 fl [facility] MCH 30.3 26.7 - 33.3 pg [facility] MCHC 34.6 32.1 - 35.9 gm/dl [facility] PLT 290 141 - 320 K/cmm [facility] RDW-CV 13.2 11.7 - 14.6 % [facility] Neutrophils 54.0 45.5 - 79.7 % [facility] Lymphocytes 37.0 15.0 - 46.8 [...] LAB RBC Morphology 1+ Anisocytosis 1+ Poikilocytosis [facility] Type of Diff: Manual [facility] 04/29/2006 21:1 0 EST 04/29/2006 21:18 EST us Default Emergency MD PACKAGES & DNA PROBE ORDERA BLES Final Result Performing Organization Address City/[facility] de Phone Number [facility] [address] [place] [address] * BUN (04/29/2006 21:10 EST) BUN 15 10 - 26 mg/dl [facility] 04/29/2006 21:1 0 EST 04/29/2006 21:18 EST us Default Emergency CHEMISTRY & BLOOD GAS ORDER [place] Final Result Performing Organization Address City/[facility]/ZIP Co de Phone Number [facility] [address] [place] [address] documented in this encounter Visit Diagnoses Not on filedocumented in this encounter
--- OUTSIDE RECORDS SUMMARY | 2024-04-08 11:15 | XMS_ITS | Encounter Summary ---
Author Organization [facility] Address [address] [place] [address] Care Team Providers Care Corn Detasseler Name Role Phone Jennie Resendiz MD Primary Care Provider [phone] Encounter Details Date Type Department Care Team (Latest Contact Info) Description 10/06/2017 9:06 EDT - 10/06/2017 23:59 EDT Hospital Encounter [address] [address] Unknown, Provider, Discharge Disposition: Home or Self [...] on filedocumented in this encounter Care Teams Corn Detasseler Relationship Specialty Start Date End Date Jennie Resendiz MD [address] [place] [address] [place] [address] [place] [phone] PCP - General 11/15/09 06/23/18 documented as of this encounter
--- OUTSIDE RECORDS SUMMARY | 2024-04-08 11:15 | XMS_ITS | Encounter Summary ---
Author Organization [facility] Address [address] [place] [address] Care Team Providers Care Pump Attendant Name Role Phone Jennie Resendiz MD Primary Care Provider [phone] Mehul Valladares DO Primary Care Provider [phone] Reason for Visit * Reason Onset Date Comments Appointment Related 06/22/2018 Encounter Details Date Type Department Care Team (Late st Contact Info) Description 06/22/2018 Telephone [facility] Ophthalmology - Main [place] [address] [place], [place] [phone] Rigoberto Dos Santos MD [address] [place] [address] 2 [place] [address] Appointment Related Social History Tobacco Use Types [...] EDT Caregiver calling to confirm NPV for 06/25 at 8 am documented in this encounter Plan of Treatment Not on file documented as of this encounter Visit Diagnoses Not on filedocumented in this encounter Care Teams Pump Attendant Relationship Specialty Start Date End Date eJnnie Resendiz MD [address] [phone] PCP - General 11/15/09 06/23/18 Mehul Valladares DO [address] [facility] 1 [place] [phone] PCP - General 06/25/18 09/08/19 documented as of this encounter
--- OUTSIDE RECORDS SUMMARY | 2024-04-08 11:15 | XMS_ITS | Encounter Summary ---
Author Organization [facility] Address [address] [place] [address] Care Team Providers Care Bag Presser Name Role Phone Mehul Valladares DO Primary Care Provider [phone] Reason for Referral * Consult (Routine/Next Available) - Denied Specialty Diagnoses / Procedures Referred By Nicol sparks Referred To Contact Neurosurgery Diagnoses Aneurysm of middle cerebral artery Rigoberto Dos Santos MD Phone: tel: fax: Alfonzo Cobb MD Phone: tel: fax: Referral ID Status Reason Start Date Expiration Date V isits Requested Visits Authorized [id number] Denied Specialty Services Required 07/31/2018 1 0 Question Answer Reason for Request: Incidental finding of Right MCA aneurysm Encounter Details Date Type Department Care Team (Late st Contact Info) Description 07/31/2018 Orders Only [facility] Ophthalmology - Main [place] [address] [place], [place] [phone] Rigoberto Dos Santos MD [address] [place] [address], [address] [place] [phone] Aneurysm of middle cerebral artery (Primary Dx) [...] nonruptured documented in this encounter Care Teams Bag Presser Relationship Specialty Start Date End Date Mehul Valladares DO PCP - General 06/25/18 09/08/19 documented as of this encounter
--- OUTSIDE RECORDS SUMMARY | 2024-04-08 11:15 | XMS_ITS | Encounter Summary ---
Author Organization [facility] Address [address] [place] [address] Care Team Providers Care Campaign Analyst Name Role Phone ChikisMehul underwood Brittney SMITH Primary Care Provider [phone] Encounter Details Date Type Department Care Team (Late st Contact Info) Description 07/24/2018 Results Only [facility] [phone] Unknown, Provider, MD Social History Tobacco Use [...] 0.6 - 1.3 mg/dl 07/24/2018 16:58 EDT [facility] investor relations specialist ID [id number] 07/24/2018 16:58 EDT [facility] Comment:Test performed by [facility]. BLOOD SPECIMEN / Unknown 07/24/2018 16:53 EDT 07/24/2018 16:58 EDT us Provider Unknown POINT OF CARE TEST ORDERABLE S Final Result Performing Organization Address City/State/[facility] Co de Phone Number [facility] [address] [place] [address] documented in this encounter Visit Diagnoses Not on filedocumented in this encounter Care Teams Campaign Analyst Relationship Specialty Start Date End Date Mehul Valladares DO PCP - General 06/25/18 09/08/19 documented as of this encounter
--- OUTSIDE RECORDS SUMMARY | 2024-04-08 11:15 | XMS_ITS | Encounter Summary ---
Author Organization [facility] Address [address] [place] [address] Care Team Providers Care Risk Mgr Name Role Phone Jacquelyn Mehul Lugo DO Primary Care Provider [phone] Encounter Details Date Type Department Care Team (Late st Contact Info) Description 10/01/2018 Orders Only [facility] Ophthalmology - Main [place] [address] [place], [place] [address] Rigoberto Dos Santos MD [address] [place] [address], [address] [place] [address] Aneurysm (arteriovenous) of coronary vessels [...] vessels documented in this encounter Care Teams Risk Mgr Relationship Specialty Start Date End Date Mehul Valladares DO PCP - General 06/25/18 09/08/19 documented as of this encounter
--- OUTSIDE RECORDS SUMMARY | 2024-04-08 11:15 | XMS_ITS | Encounter Summary ---
Author Organization [facility] Address [address] [place] [address] Care Team Providers Care Self Sealing Fuel Tank Repairer Name Role Phone Jennie Resendiz MD Primary Care Provider [phone] Reason for Visit * Reason Onset Date Comments Appointment Related 05/20/2018 Transportati on arrangements need to be made with [facility] Encounter Details Date Type Department Care Team (Late st Contact Info) Description 05/20/2018 Telephone [facility] Ophthalmology - [facility] [address] [place] [address] Rigoberto Dos Santos MD [address] [place] [address] 2 [place] [address] Appointment Related (Transportation arrangements need to be [...] Notes * Telephone Encounter - Marium Loo Robin - 05/20/2018 3909 EST Patient called to reschedule the appointment [...] on filedocumented in this encounter Care Teams Self Sealing Fuel Tank Repairer Relationship Specialty Start Date End Date Jennie Resendiz MD [address] [place] [phone] PCP - General 11/15/09 06/23/18 documented as of this encounter
--- OUTSIDE RECORDS SUMMARY | 2024-04-08 11:15 | XMS_ITS | Encounter Summary ---
Author Organization [facility] Address [address] [place] [address] Care Team Providers Care Truck Caterer Name Role Phone ChikisMehul underwood Brittney SMITH Primary Care Provider Reason for Visit * Reason Onset Date Comments Eye Problem 11/27/2018 Encounter Details Date Type Department Care Team (Late st Contact Info) Description 11/27/2018 Telephone [facility] Ophthalmology - Main [place] [address] [place], [place] [phone] Rigoberto Dos Santos MD [address] [place] [address] 2 [place] [address] Eye Problem Social History Tobacco Use Types [...] to you in the next two hours? [phone] (VERIFY THE PHONE NUMBERS REGARDLESS OF WHAT [...] on filedocumented in this encounter Care Teams Truck Caterer Relationship Specialty Start Date End Date Mehul Valladares DO PCP - General 06/25/18 09/08/19 documented as of this encounter
--- OUTSIDE RECORDS SUMMARY | 2024-04-08 11:15 | XMS_ITS | Encounter Summary ---
Author Organization [facility] Address [address] [place] [address] Care Team Providers Care Holistic Health Practitioner Name Role Phone ChikisMehul underwood Brittney SMITH Primary Care Provider Reason for Visit * Reason Onset Date Comments Other 07/29/2018 Encounter Details Date Type Department Care Team (Late st Contact Info) Description 07/29/2018 Telephone [facility] Ophthalmology - Main [place] [address] [place], [place] [phone] Rigoberto Dos Santos MD [address] [place] [address] 2 [place] [address] Other Social History Tobacco Use [...] week please call her home number @ [phone] documented in this encounter Plan of Treatment Not on file documented as of this encounter Visit Diagnoses Not on filedocumented in this encounter Care Teams Holistic Health Practitioner Relationship Specialty Start Date End Date Mehul Valladares DO PCP - General 06/25/18 09/08/19 documented as of this encounter
--- OUTSIDE RECORDS SUMMARY | 2024-04-08 11:15 | XMS_ITS | Encounter Summary ---
Author Organization [facility] Address [address] [place] [address] Care Team Providers Care Child Therapist Name Role Phone Unavailable Primary Care Provider Unavailabl e Encounter Details Date Type Department Care Team (Late st Contact Info) Description 05/13/2006 14:47 EST Hospital Encounter [facility] conversion [address] [place] [address] Gayathri Longoria MD [address] [place] [address] Adrianne Lewis MD [address] [place] [address], [address] [place] [address] Social History Tobacco Use Types [...] TSH 2.36 0.35 - 5.00 uIU/mL [facility] 05/13/2006 15:5 8 EST 05/13/2006 19:15 EST us Adrianne Lewis MD CHEMISTRY & BLOOD GAS GABRIEL SHINE Final Result [facility] [address] [place] [address] * COMPREHENSIVE METABOLIC PANEL (05/13/2006 15:58 EST) Potassium 4.1 3.5 - 5.0 mEq/L [facility] Sodium 137 136 - 145 mEq/L [facility] Chloride 103 96 - 110 mEq/L [facility] CO2 24 24 - 32 mEq/L [facility] Total Alkaline Phosphatase 78 38 - 126 U/L [facility] Bilirubin, Total <0.5 0.2 - 1.3 mg/dl [facility] AST 31 15 - 46 [...] 05/13/2006 15:5 8 EST 05/13/2006 19:15 EST us Adrianne Lewis MD CHEMISTRY & BLOOD GAS ORDE FÁTIMA Final Result Performing Organization Address City/[facility] Co de Phone Number [facility] [address] [place] [address] * CK (05/13/2006 15:58 EST) CK 85 30 - 135 U/L [facility] 05/13/2006 15:5 8 EST 05/13/2006 19:15 EST us Adrianne Lewis MD CHEMISTRY & BLOOD GAS ORDE RABLISA Final Result Performing Organization Address City/[facility] Co de Phone Number [facility] [address] [place] [address] documented in this encounter Visit Diagnoses Not on filedocumented in this encounter
--- OUTSIDE RECORDS SUMMARY | 2024-04-08 11:15 | XMS_ITS | Encounter Summary ---
Author Organization [facility] Address [address] [place] [address] Care Team Providers Care Motion Study Engineer Name Role Phone Unavailable Primary Care Provider Unavailabl e Encounter Details Date Type Department Care Team (Latest Contact Info) Description 12/15/2005 10:35 EDT - 12/15/2005 11:59 EDT Hospital Encounter [facility] Emergency Department - [facility] [address] [place], [place] [address] Emergency, Default, MD Discharge Disposition: Home or [...] 12/17/05 /edward Jed Boyd MD IMG DIAGNOSTIC IMAGING GABRIEL SHINE Final Result documented in this encounter Visit Diagnoses Not on filedocumented in this encounter
--- OUTSIDE RECORDS SUMMARY | 2024-04-08 11:15 | XMS_ITS | Encounter Summary ---
Author Organization [facility] Address [address] [place] [address] Care Team Providers Care Family Life Counselor Name Role Phone ChikisMehul underwood Brittney SMITH Primary Care Provider Encounter Details Date Type Department Care Team (Latest Contact Info) Description 07/24/2018 16:17 EDT - 07/24/2018 23:59 EDT Hospital Encounter [facility] [address] [place] [address] Rigoberto Dos Santos MD [address] [place] [address] 2 [place] [address] Discharge Disposition: Auto Discharge Social History Tobacco [...] this encounter Medications at Time of Discharge carvedilol (COREG) 6.25 mg tablet Take 6.25 [...] on filedocumented in this encounter Care Teams Family Life Counselor Relationship Specialty Start Date End Date Mehul Valladares DO PCP - General 06/25/18 09/08/19 documented as of this encounter
--- OUTSIDE RECORDS SUMMARY | 2024-04-08 11:15 | XMS_ITS | Encounter Summary ---
Author Organization [facility] Address [address] [place] [address] Care Team Providers Care Tank Officer Name Role Phone Jennie Resendiz MD Primary Care Provider Encounter Details Date Type Department Care Team (Late st Contact Info) Description 03/10/2007 Results Only [facility] [address] [place] [address] Lynnette Olsen, PEST CONTROL WORKER HELPER [address] [phone] Social History Tobacco Use Types [...] reading/interpreti ng unformatted reports. Name: ? KALLIE WHITE ? Accession #: ? [id number] : ? 1960 (Age: 46) ??F ?Collect Date: ? 03/10/2007 Location: ? [facility] ? Receive Date: ? 03/12/2007 Provider: ?LYNNETTE OLSEN NP Copy to: ? Specimen/Source: ?ThinPrep Pap Test, Vagina, processed on [employer] ThinPrep Imaging System, with manual evaluation Last [...] End of Report [facility] 03/10/2007 03/12/2007 us Lynnette Olsen NP PATHOLOGY ORDERABLES Final R esult [facility] [address] [place] [address] documented in this encounter Visit Diagnoses Not on filedocumented in this encounter Care Teams Tank Officer Relationship Specialty Start Date End Date Jennie Resendiz MD [address] [place] [phone] PCP - General 11/15/09 06/23/18 documented as of this encounter
--- OUTSIDE RECORDS SUMMARY | 2024-04-08 11:15 | XMS_ITS | Encounter Summary ---
Author Organization [facility] Address [address] [place] [address] Care Team Providers Care Candy Feeder Name Role Phone ChikisMehul underwood Brittney SMITH Primary Care Provider Encounter Details Date Type Department Care Team (Late st Contact Info) Description 10/01/2018 Orders Only [facility] Ophthalmology - Main [place] [address] [place], [place] [address] Rigoberto Dos Santos MD [address] [place] [address], [address] [place] [address] Aneurysm ([facility]) (Primary Dx) Social History Tobacco Use Types [...] site documented in this encounter Care Teams Candy Feeder Relationship Specialty Start Date End Date Mehul Valladares DO PCP - General 06/25/18 09/08/19 documented as of this encounter
[2024-04-08 14:41] LABS: Abs Immature Grans 0.02 10^3/uL (0.0-0.06); Absolute Basophil Count 0.01 10^3/uL (0.0-0.2); Absolute Eosinophil Count 0.09 10^3/uL (0.0-0.7); Absolute Lymphocyte Count 1.13 10^3/uL (1.2-3.4); Absolute Monocyte Count 0.28 10^3/uL (0.1-0.8); Absolute Neutrophil Count 2.04 10^3/uL (1.2-6.7); Basophils % 0.3 %; Eosinophils % 2.5 %; HCT 35.3 % (36.0-46.0); HGB 11.1 g/dL (11.2-15.7); Immature Grans % 0.6 %; Lymphocytes % 31.7 %; MCH 27.3 pg (27.0-33.0); MCHC 31.4 % (32.0-36.0); MCV 87 fL (80-95); MPV 9.9 fL (8.0-11.0); Monocytes % 7.8 %; Neutrophils % 57.1 %; RBC 4.07 10^6/uL (3.93-5.22); RDW 14.6 % (11.7-14.6); RDW-SD 46.1 fL; WBC 3.57 10^3/uL (4.4-10.8)
[2024-04-08 14:53] LABS: INR 1.2 (0.9-1.1); Prothrombin Time 11.6 sec (9.1-11.1)
[2024-04-08 14:55] LABS: ALT 19 U/L (14-59); AST 29 U/L (15-37); Albumin 3.8 g/dL (3.4-5.0); Alkaline Phosphatase 172 U/L (46-116); Anion Gap 12.7 mmol/L (3-11); BUN 14 mg/dL (7-18); CO2 25.3 mmol/L (21.0-32.0); CREATININE 0.8 mg/dL (0.55-1.02); Calcium 8.8 mg/dL (8.5-10.1); Chloride 107 mmol/L (98-107); Estimated GFR 82.74 (mL/min/1.73m2); Glucose 132 mg/dL (74-106); Potassium 3.5 mmol/L (3.5-5.1); Sodium 145 mmol/L (136-145); Total Protein 6.8 g/dL (6.4-8.2)
[2024-04-08 15:13] LABS: Platelet Count 87 10^3/uL (130-400)
== END 2024-04-08 11:06 | disposition home or self-care (01) ==
LOC: NCHCN 11:05
PROVIDERS: PCP Student in an Organized Health Care Education/Training Program; Visit Provider Student in an Organized Health Care Education/Training Program
DX: K74.60 Unspecified cirrhosis of liver (principal)
CPT/HCPCS: 80053; 85025; 85610

== ENCOUNTER 2024-04-15 02:30 | Outpatient (CLI) | payer MEDICAID, SELFPAY ==
--- NOTE | 2024-04-15 | DI.US_ITS ---
Exam(s) US ABDOMEN LIMITED EXAM: US ABDOMEN LIMITED CLINICAL HISTORY: CIRRHOSIS OF LIVER [id number] FU FROM 08/16/23 CONCER FOR [facility] TECHNIQUE: Ultrasound abdomen performed using standard protocol. COMPARISON: US US ABDOMEN LIMITED from 09/16/2023 FINDINGS: There is no ascites evident. LIVER: Liver is enlarged and exhibits cirrhotic appearance, as evident on prior CT scan. There are v arices evident, consistent with portal venous hypertension. Portal vein diameter is prominent, measu ring up to 2 cm.. Flow within the main portal vein is demonstrated to be hepatopetal. There are mul tiple vessels in the brandie hepatis region. Possible cavernous transformation of the proximal portal vein GALLBLADDER/BILIARY: The gallbladder surgically absent. The common hepatic duct ismildly dilated, measuring 7-8mm at the level of brandie hepatis. PANCREAS: There is no evidence of pancreatic mass nor dilatation of the pancreatic duct. RIGHT KIDNEY:No evidence of solid mass, calculus, nor hydronephrosis. No cortical cysts evident. IMPRESSION: 1. Hepatomegaly and hepatic cirrhosis and evidence of portal venous hypertension as described above. No obvious reversal of flow in the portal vein 2. Gallbladder surgically absent. CBD diameter is commensurate with post cholecystectomy status. 3. There is no ascites. DATA REPOSITORY:
--- NOTE | 2024-04-15 | DI.RAD_ITS ---
Exam(s) XR SHOULDER RT COMPLETE 2+V EXAM: XR SHOULDER RT COMPLETE 2+V CLINICAL HISTORY: PAIN RT SHOULDER M25.511 FALL, SOME TTP OF AC JOINT. TECHNIQUE: 2D digital imaging was performed. COMPARISON: CR XR SHOULDER LT COMPLETE 2+V from 06/12/2021 FINDINGS: Five views. No evidence of fracture or dislocation of the glenohumeral and AC joints. Clavicle appears intact. Subacromial space is not diminished. No abnormal calcifications in the soft tissues. Harsha density normal. No osseous lesions. IMPRESSION: No significant radiographic findings in the right shoulder. DATA REPOSITORY: RADIATION DOSE DELIVERED:
== END 2024-04-15 02:50 ==
LOC: DI 02:31
PROVIDERS: PCP Student in an Organized Health Care Education/Training Program; Visit Provider Student in an Organized Health Care Education/Training Program
DX: M25.511 Pain in right shoulder (principal); K74.60 Unspecified cirrhosis of liver
CPT/HCPCS: 73030; 76705

== ENCOUNTER 2024-05-19 10:01 | Outpatient (CLI) | payer MEDICAID, SELFPAY ==
--- NOTE | 2024-05-19 10:23 | DI.RAD_ITS ---
Exam(s) XR CHEST 2V PA LATERAL EXAM: XR CHEST 2V PA LATERAL CLINICAL HISTORY: R05.1 Cough TECHNIQUE: 2D digital imaging was performed. Two views. COMPARISON: CR XR CHEST 2V PA LATERAL from 12/10/2021 FINDINGS: HEART: Normal size. Aorta: Not dilated. PULMONARY VASCULATURE: Normal. MEDIASTINUM: Unremarkable. LUNGS: Dense infiltrate is noted at the posterior left lower lobe. An additional densities noted at the medial right lower lobe. PLEURAL SPACE: No pleural effusion or pneumothorax. BONE:Unremarkable for age. SOFT TISSUES: Unremarkable. IMPRESSION: Bilateral lower lobe infiltrates, left greater than right. DATA REPOSITORY: RADIATION DOSE DELIVERED:
== END 2024-05-19 10:21 ==
PROVIDERS: PCP Student in an Organized Health Care Education/Training Program; Visit Provider Student in an Organized Health Care Education/Training Program
DX: R05.1 Acute cough (principal)
CPT/HCPCS: 71046

== ENCOUNTER 2024-05-19 11:15 | Outpatient (REF) | payer MEDICAID, SELFPAY ==
[2024-05-19 15:19] LABS: Abs Immature Grans 0.05 10^3/uL (0.0-0.06); Absolute Basophil Count 0.03 10^3/uL (0.0-0.2); Absolute Eosinophil Count 0.09 10^3/uL (0.0-0.7); Absolute Lymphocyte Count 1.24 10^3/uL (1.2-3.4); Absolute Neutrophil Count 5.31 10^3/uL (1.2-6.7); Basophils % 0.4 %; Eosinophils % 1.3 %; HCT 30.6 % (36.0-46.0); HGB 9.6 g/dL (11.2-15.7); Immature Grans % 0.7 %; Lymphocytes % 17.4 %; MCH 25.9 pg (27.0-33.0); MCHC 31.4 % (32.0-36.0); MCV 83 fL (80-95); MPV 10.3 fL (8.0-11.0); Monocytes % 5.6 %; Neutrophils % 74.6 %; Platelet Count 136 10^3/uL (130-400); RDW 14.4 % (11.7-14.6); RDW-SD 42.8 fL; WBC 7.12 10^3/uL (4.4-10.8)
[2024-05-19 15:44] LABS: ALT 12 U/L (14-59); AST 22 U/L (15-37); Albumin 3.2 g/dL (3.4-5.0); Alkaline Phosphatase 210 U/L (46-116); BUN 7 mg/dL (7-18); Bilirubin, Total 0.52 mg/dL (0.2-1.0); CREATININE 0.8 mg/dL (0.55-1.02); Calcium 8.6 mg/dL (8.5-10.1); Chloride 101 mmol/L (98-107); Estimated GFR 82.74 (mL/min/1.73m2); Glucose 89 mg/dL (74-106); Potassium 3.4 mmol/L (3.5-5.1); Sodium 138 mmol/L (136-145); Total Protein 6.5 g/dL (6.4-8.2)
== END 2024-05-19 11:16 | disposition home or self-care (01) ==
LOC: NCHCN 11:15
PROVIDERS: PCP Student in an Organized Health Care Education/Training Program; Visit Provider Student in an Organized Health Care Education/Training Program
DX: R05.1 Acute cough (principal)
CPT/HCPCS: 80053; 85025

== ENCOUNTER 2024-07-06 13:10 | Outpatient (REF) | payer MEDICAID, SELFPAY ==
[2024-07-06 15:51] LABS: Abs Immature Grans 0.01 10^3/uL (0.0-0.06); Absolute Basophil Count 0.01 10^3/uL (0.0-0.2); Absolute Eosinophil Count 0.08 10^3/uL (0.0-0.7); Absolute Lymphocyte Count 0.93 10^3/uL (1.2-3.4); Absolute Monocyte Count 0.18 10^3/uL (0.1-0.8); Absolute Neutrophil Count 1.56 10^3/uL (1.2-6.7); Basophils % 0.4 %; Eosinophils % 2.9 %; HGB 9.9 g/dL (11.2-15.7); Immature Grans % 0.4 %; Lymphocytes % 33.6 %; MCH 27.1 pg (27.0-33.0); MCHC 30.9 % (32.0-36.0); MCV 88 fL (80-95); MPV 10.4 fL (8.0-11.0); Monocytes % 6.5 %; Neutrophils % 56.2 %; RBC 3.65 10^6/uL (3.93-5.22); RDW 16.1 % (11.7-14.6); RDW-SD 51.8 fL; WBC 2.77 10^3/uL (4.4-10.8)
[2024-07-06 15:59] LABS: COMMENT (LAB VIEW ONLY) 109.25 mg/dL; Microalb ug/mg Crea 12.3 ug/mg Cr
[2024-07-06 16:03] LABS: TSH 2.01 uIU/mL (0.36-3.74)
[2024-07-06 17:12] LABS: Platelet Count 86 10^3/uL (130-400)
[2024-07-06 17:13] LABS: Anisocytosis 1+; Diff Comment RBC Morph Reviewed
[2024-07-07 10:36] LABS: Iron 32 ug/dL (50-170); Total Iron Binding Capacity 347 ug/dL (250-450); Transferrin Sat 9 % (15-50)
[2024-07-07 11:03] LABS: Ferritin 23 ng/mL (8-252); Vitamin B12 343 pg/mL (193-986)
[2024-07-07 18:21] LABS: Folate 10.2 ng/mL (See Note)
== END 2024-07-06 13:11 | disposition home or self-care (01) ==
LOC: NCHCN 13:10
PROVIDERS: PCP Student in an Organized Health Care Education/Training Program; Visit Provider Student in an Organized Health Care Education/Training Program
DX: E11.9 Type 2 diabetes mellitus without complications (principal); R01.1 Cardiac murmur, unspecified; D64.9 Anemia, unspecified
CPT/HCPCS: 82043; 82570; 82607; 82728; 82746; 83540; 83550; 84443; 85025

== ENCOUNTER 2024-07-15 01:25 | Outpatient (CLI) | payer MEDICAID, SELFPAY ==
--- NOTE | 2024-07-15 14:36 | DI.MAMMO_ITS ---
Exam(s) MAMMO SCREENING EXAM: MAMMO SCREENING CLINICAL HISTORY: Z12.31 Screening TECHNIQUE: Bilateral full field digital CC and MLO mammographic images were obtained with 3D tomosyn thesis and utilizing computer aided detection (CAD). COMPARISON: Available for comparison. FINDINGS: Masses/Architectural Distortion: No suspicious masses or areas of architectural distortion are presen t. The nodule in the upper outer quadrant of the right breast appears stable. Microcalcifications: No suspicious pleomorphic-type are seen. Skin Thickening/Nipple Retraction: None. IMPRESSION: 1. No significant interval change with no specific features of malignancy noted. 2. Unless there is more urgent need, screening mammography is recommended, as per [employer] guidelines. BI-RADS Category 2 - Benign Findings Breast Density - Category B - Scattered areas of fibroglandular density Breast density category C or D implies that the patient has dense breast tissue. Dense breast tissue is very common and is not abnormal but dense breast tissue can make it harder to find cancer on a ma mmogram. Also, dense breast tissue may increase their breast cancer risk. This information about the result of the mammogram report was provided to the patient to raise their awareness. Use this report when you speak with the patient about their risks for breast cancer, which includes their family hist ory. At that time, you may recommend for more screening tests (Ultrasound or MRI) as they might be us eful based on their risk. A negative radiographic report should not delay biopsy if a dominant or clinically suspicious mass is present. Up to ten percent of cancers are not identified on mammography. A negative report may reinforce clinical impression. Adenosis and dense breasts may obscure an underlying neoplasm. False positive reports average 6 to 10%. Patient will receive a letter notifying them of these results.
== END 2024-07-15 01:45 ==
LOC: DI 01:25
PROVIDERS: PCP Student in an Organized Health Care Education/Training Program; Visit Provider Student in an Organized Health Care Education/Training Program
DX: Z12.31 Encounter for screening mammogram for malignant neoplasm of breast (principal); R92.323 Mammographic fibroglandular density, bilateral breasts; D24.1 Benign neoplasm of right breast
CPT/HCPCS: 77063; 77067

== ENCOUNTER 2024-08-04 02:37 | Outpatient (CLI) | payer MEDICAID, SELFPAY ==
--- NOTE | 2024-08-04 08:30 | DI.US_ITS ---
APPROVED REPORT EXAM: Comprehensive 2D, Doppler, and color-flow Echocardiogram Patient Location: Out-Patient Breaker Hand: Negro Toussaint RDCS (AE) Indications: Systolic murmur Other Information Study Quality: Adequate Conclusion Normal left ventricular wall thickness and chamber size. Ejection fraction is 65%. Wall motion is n ormal Normal right ventricular size and function Both atria are normal in size Aortic valve is mildly sclerotic and trileaflet without stenosis or regurgitation Mildly thickened mitral leaflets. Trace to mild mitral regurgitation Ascending aorta measures 3.41 cm Wall motion Left Ventricle Left ventricle is borderline dilated. The left ventricular systolic function is normal. The left vent ricular ejection fraction is within the normal range. There is normal left ventricular wall thickness . Sigmoid septum is present. There is normal LV segmental wall motion. There is no ventricular septal defect visualized. LVEF is 65%. Right Ventricle The right ventricle is normal size. The right ventricular systolic function is normal. Atria The left atrium size is normal. The right atrium size is normal. The interatrial septum is intact wit h no evidence for an atrial septal defect. Aortic Valve The aortic valve is mildly sclerotic. Aortic valve is trileaflet. There is no aortic valvular stenosi s. No aortic regurgitation is present. Mitral Valve Mildly thickened mitral leaflets No evidence of mitral valve stenosis. Trace to mild mitral regurgita tion. Tricuspid Valve The tricuspid valve is normal in structure. There is no tricuspid valve stenosis. Trace tricuspid reg urgitation. Pulmonic Valve The pulmonary valve is normal in structure. There is no pulmonic valvular stenosis. Mild pulmonic reg urgitation. Great Vessels The aortic root is normal in size. The ascending aorta is mildly dilated. Aortic arch is normal in ca liber. IVC is normal in size and collapses >50% with inspiration. Pericardium There is no pericardial effusion. 2D Dimensions IVSD d PLAX 0.84 cm F: 0.6-1.0 Ao Root d 2.85 cm F: 2.7 - 3.3 LVPW d PLAX 0.83 cm F: 0.6 - 1.0 Ao Asc Diam d 3.41 cm F: 2.3 - 3.1 LVID d PLAX 5.32 cm F: 3.8 - 5.2 LVDs 3.38 cm F: 2.2 - 3.5 LV EF Teichholz 65.7 % FS 36.41 % LV EDV (Teich) 136.6 mL LV ESV (Teich) 46.9 mL Stroke Vol Index (Teich) 45.09 M-Mode TAPSE 2.50 cm (M/F) >1.7 Auto EF LV EDV A4C 106.3 mL LV EDV A2C 119.3 mL LV EDV BP 112.6 mL LV ESV A4C 38.1 mL LV ESV A2C 41.1 mL LV ESV BP 39.8 mL LVEF(%) A4C 64.1 % LVEF(%) A2C 65.6 % LVEF(%) BP 64.7 % LV SV A4C 68.2 ml LV SV A2C 78.3 ml LV SV BP 72.8 ml LV CO A4C 4.3 L/min LV CO A2C 4.6 L/min LV CO BP 4.4 L/min HR A4C 62.94 BPM HR A2C 58.63 BPM LV EDV Index (BP) LA Volume LA Length A4C 4.3 cm LA Length A2C 5.2 cm LA Area A4C s 10.31 cm2 LA Area A2C s 14.88 cm2 LA Vol A4C A-L 21.04 mL LA Vol A2C A-L 36.15 mL LA Vol Biplane A-L 30.4 mL LA Vol/BSA A4C A-L LA Vol/BSA A2C A-L LA Vol/BSA BP A-L 15.3 mL/m2 LA Vol A4C MOD 20.6 mL LA Vol A2C MOD 35.7 mL LA Vol BP MOD 29.7 mL RA Volume RA Area A4C 10.7 cm2 RA ESV A4C (A-L) 23.4mL RA Vol/BSA A4C A-L RA Length A4C 4.2 cm RA ESV A4C (MOD) 22.7mL LV Diastology MV E' medial 0.069 (>0.07 m/s) MV E Vmax 0.79 (0.4-1.3 m/s) MV E/E' MED 11.44 (<14) MV A Vmax 0.95 (0.4-1.3 m/s) MV E' lateral 0.068 (>0.1 m/s) E/A Ratio 0.8 MV E/E' LAT 11.67 (<14) MV E' Average 0.068 m/s MV E/E'(average) 11.55 Aortic Valve AoV Vmax 1.69 m/s LVOT Vmax 1.51 m/s AoV Peak Grad 11.4 mmHg LVOT Peak Grad 9.2 mmHg AoV Area (Vmax) 2.72 cm2 LVOT VTI 0.378 m AoV VTI 0.423 m LVOT Mean Grad 5.4 mmHg AoV Mean Ethan. 1.20 m/s LVOT SV 114.69 mL AoV Mean Grad 6.5 mmHg LVOT Diam s 1.95 cm AoV Area (VTI) 2.71 cm2 AV Regurg Peak Gr. 11.37 mmHg Velocity Ratio 0.89 Mitral Valve MV DT 257 (160-240 msec) MV Vmax TIPS 1.04 m/s MV Mean Grad 1.9 (<2mmHg) MV VTI 0.375 m Pulmonary Valve PV Vmax 1.03 (0.5-1.5 m/s) RVOT Vmax 0.60 m/s PV Peak Grad 4.2 mmHg RVOT Peak Gr. 1.4 mmHg PV Mean Ethan 0.74 m/s RVOT VTI 0.141 m PV Mean Grad 2.5 mmHg RVOT Mean Gr. 0.8 mmHg Tricuspid Valve TV S' 0.16 m/s
== END 2024-08-04 02:57 ==
LOC: DI 02:37
PROVIDERS: PCP Student in an Organized Health Care Education/Training Program; Visit Provider Internal Medicine Cardiovascular Disease
DX: R01.1 Cardiac murmur, unspecified (principal); I35.1 Nonrheumatic aortic (valve) insufficiency
CPT/HCPCS: 93306

== ENCOUNTER 2024-09-24 09:44 | Day surgery (SDC) | payer MEDICAID, SELFPAY ==
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
[2024-09-24 09:50] VITALS: BP 118/68; PULSE 62; RESP 16; TEMP 36; O2SAT 99
[2024-09-24] MEDS: Lactated Ringers 1,000 ML 80 ML IV (10:20)
[2024-09-24 11:38] VITALS: BMI 33.3
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
[2024-09-24 13:45] VITALS: BP 140/91; PULSE 68; RESP 16; TEMP 36.2; O2SAT 97
--- NOTE | 2024-09-24 13:51 | W.ANESPOSTOP ---
Postoperative Evaluation Date, Time and Location Date Performed: 09/24/24 Time Performed: 13:51 Patient Location: Day Surgery Unit Vital Signs Most Recent Imported Vital Signs: Most Recent Vital Signs Temp Pulse Resp BP Pulse Ox 36 C L 62 16 118/68 99 09/24/24 09:50 09/24/24 09:50 09/24/24 09:50 09/24/24 09:50 09/24/24 09:50 Pain Score Most Recent Pain Score: Most Recent Pain Score Pain Level 0 09/24/24 09:50 Assessment Mental Status: Awake (Alert & Oriented to Patient Baseline) Airway and Respiratory Function: Patent airway with normal (patient baseline) respiratory exam Cardiovascular Function: Hemodynamically Stable Hydration Status: Adequately Hydrated Nausea & Vomiting: No Nausea or Vomiting Pain: Pt. Denies Any Pain Peripheral Nerve Block: Patient did not receive a nerve block
--- NOTE | 2024-09-24 13:59 | W.PM.OP ---
Operative Note Operative Note PRE-OP DIAGNOSIS: Anemia POST-OP DIAGNOSIS: other (Small hiatal hernia, gastric polyps, colon polyps) PROCEDURE: EGD and colonoscopy with biopsies SURGEON: Danny BETH ANESTHESIA TYPE: MAC Refer to Anesthesia Record PATHOLOGY: other (Gastric antrum mucosal biopsies, gastric body mucosal biopsies, gastric polyp biopsies, GE junction mucosal biopsies, ascending colon polyp, transverse colon polyp, descending colon polyp, rectal polyp) COMPLICATIONS: None Patient was transported to: same day Patient's condition: stable Findings: Small hiatal hernia, less than 20 small gastric polyps, changes at GE junction concerning for Bailey's esophagus, 4 subcentimeter colon polyps. No source of bleeding that might be contributing to her anemia. Procedure Description: After obtaining informed consent, patient was brought back to the operating room. She was turned on her left side and connected to the monitors. Timeout was performed. Bite-block was inserted. Propofol was administered by the nurse phlebotomy manager. I began by inserting the upper endoscope and passing it through the oropharynx and into the esophagus without difficulty. I advanced all the way down to the second portion of the duodenum. The duodenum and duodenal bulb had a normal appearance. I withdrew into the stomach. The pylorus had a normal appearance. There was some small patches of irritation in the gastric antrum and I took some gastric antrum mucosal biopsies. There was also some slight irritation of the lining of the body of the stomach and I took some mucosal biopsies here. She had a handful of scattered small gastric polyps and I took biopsies of a few of these as well. I did retroflex. The cardia had a normal appearance. There is a slight widening of the diaphragmatic hiatus adjacent to the scope by about half a centimeter. I decompressed the stomach and withdrew into the esophagus. The Z-line was at the level of the diaphragmatic hiatus but it had some sliding component and some irregularity with a patch of pink mucosa about 1 x 2 cm concerning for Bailey's esophagus. I took some GE junction mucosal biopsies. I decompressed the stomach on last time and withdrew the scope entirely. We turned our attention to the colonoscopy portion of the procedure. I began by performing a digital rectal exam. This was unremarkable. I inserted the colonoscope and advanced the length of the colon. I attained the cecum as identified by the appendiceal orifice and the ileocecal valve. I intubated the ileocecal valve to view the terminal ileum. This had a normal appearance. I withdrew into the cecum. This also had a normal appearance. Prep on the right side of the colon was good. Began to withdraw the scope. In the proximal ascending colon she had a 1 cm somewhat pedunculated polyp that I removed with a hot snare. I had to cut this in 2 to 3 pieces to remove it with suction. The pieces were retrieved and sent to pathology. The polyp itself was removed in its entirety. I withdrew along the remainder of the ascending colon and into the transverse colon. In the proximal transverse colon I removed a 4 mm sessile polyp with a cold biopsy forcep. This was sent to pathology. I withdrew along the remainder of the transverse colon and into the descending colon. In the descending colon I removed removed a diminutive 3 mm sessile polyp with a cold biopsy forcep. This was sent to pathology. I withdrew through the sigmoid colon. No diverticula were noted. I withdrew into the rectum. Here I removed a another small 3 mm sessile appearing polyp with a cold biopsy forcep. Of note, her prep was poor in the sigmoid and rectum. I had to do a lot of washing and some small polyps may have been missed. I did retroflex in the rectum. This was unremarkable. I then decompressed the sigmoid and the rectum and withdrew the scope entirely. Patient tolerated well. She went to recovery in stable condition. Disposition: Patient will be discharged home later today. We will call her with the pathology report. No significant findings of anything bleeding today that might contribute to her anemia. Date of Procedure: 09/24/24
[2024-09-24 14:15] VITALS: BP 140/75; PULSE 65; RESP 16; TEMP 36.1; O2SAT 95
== END 2024-09-24 09:45 | disposition home or self-care (01) ==
PROVIDERS: PCP Student in an Organized Health Care Education/Training Program; Visit Provider Surgery
PROC: (CPT 45385; principal; 2024-09-24 10:30)
DX: D64.9 Anemia, unspecified (principal); K44.9 Diaphragmatic hernia without obstruction or gangrene; D12.3 Benign neoplasm of transverse colon; K31.89 Other diseases of stomach and duodenum; K31.7 Polyp of stomach and duodenum
CPT/HCPCS: 45385; 45380; 43239; 88305; J1920; J2405; J2704

== ENCOUNTER 2024-12-08 15:42 | Outpatient (REF) | payer MEDICAID, SELFPAY ==
[2024-12-08 15:09] LABS: HCT 32.2 % (36.0-46.0); HGB 10.2 g/dL (11.2-15.7); MCH 26.8 pg (27.0-33.0); MCHC 31.7 % (32.0-36.0); MCV 85 fL (80-95); MPV 10.3 fL (8.0-11.0); RBC 3.81 10^6/uL (3.93-5.22); RDW 15.6 % (11.7-14.6); RDW-SD 47.3 fL; WBC 2.95 10^3/uL (4.4-10.8)
[2024-12-08 15:18] LABS: Iron 52 ug/dL (50-170); Total Iron Binding Capacity 393 ug/dL (250-450); Transferrin Sat 13 % (15-50)
[2024-12-08 15:21] LABS: Platelet Count 83 10^3/uL (130-400)
[2024-12-08 15:44] LABS: Calculated LDL 105 mg/dL (<100); Cholesterol 188 mg/dL (<200); Ferritin 21 ng/mL (8-252); HDL Cholesterol 30 mg/dL (>or=50); Triglyceride 269 mg/dL (<150); Vitamin B12 346 pg/mL (193-986)
[2024-12-08 15:45] LABS: Folate > 20.0 ng/mL (8.6-20.0)
[2024-12-08 21:29] LABS: Total Protein 6.9 g/dL (6.3-8.2)
[2024-12-10 15:32] LABS: Albumin 63.3 % (55.8-66.1); Albumin g/dL 4.4 g/dL (3.6-5.2); Alpha 1 g/dL 0.30 g/dL (0.15-0.40); Alpha 2 g/dL 0.70 g/dL (0.50-1.00); Beta g/dL 0.80 g/dL (0.60-1.20); Gamma g/dL 0.80 g/dL (0.60-1.60)
== END 2024-12-08 15:43 | disposition home or self-care (01) ==
LOC: NCHCN 15:42
PROVIDERS: PCP Student in an Organized Health Care Education/Training Program; Visit Provider Student in an Organized Health Care Education/Training Program
DX: E11.9 Type 2 diabetes mellitus without complications (principal); D64.9 Anemia, unspecified
CPT/HCPCS: 80061; 85027; 82607; 82728; 82746; 83540; 83550; 84165; 85045; 86320

== ENCOUNTER 2024-12-20 09:43 | Outpatient (CLI) | payer MEDICAID, SELFPAY ==
--- NOTE | 2024-12-20 | DI.NM_ITS ---
APPROVED REPORT Exam: Pharmacologic Patient Location: Out-Patient Room/Bed: Stress Nurse: Edmundo Wang RN Ordering Provider:CYRIL FLEMING, Contact Number: [phone] BMI: 33.44 Baseline Rhythm: Sinus Rhythm. Comment: T wave inversion noted in leads V2 and V3. Indications: Chest Pain; TABARES w/ Right Sided Shoulder Pain Resolved w/ Rest; Hx of Mitral Valve Regurgitation; Tobacco User; Anemia. Medical History Medical History: Pneumonia; Thrombocytopenic Disorder; Cirrhosis of the Liver; Severe Recurrent Major Depressive Disorder w/ Psychotic Features; COPD; Hypothyroidism; GERD; Anxiety Disorder; Type 2 Diabetes Mellitus; HTN; Aneurysm of Cerebral Artery; Portal HTN; Gastric Varices; Iron Deficiency Anemia. Cardiac Medications: Carvedilol; Escitalopram; Ferrous Sulfate; Furosemide; Metformin; Mirtazapine; Pantoprazole; Proair; Risperidone; Symbicort; Topiramate; Trazadone. Allergies: Aspirin; Augmentin; Lactose; Neosporin. Cardiac Risk Factors: Family Hx; HTN; Type 2 Diabetes Mellitus; Asthma; COPD; Current Smoker; Obesity. Previous Cardiac Procedures: None. Pretest Chest Pain Characteristics: None. Exercise History: Indeterminate. Physical Disabilities: None. Lung Sounds: Expiratory wheezing bilaterally throughout, anterior and posterior. Heart Sounds: S1 and S2 auscultated. Stress Test Details Test: Pharmacologic stress testing performed using 0.4 mg of regadenoson per 5 mL given IV over 10 seconds. Reason for pharmacologic stress test: T wave inversion noted in leads V2 and V3; expiratory wheezing bilaterally throughout, anterior and posterior. Nuclear Acquisition: Rest Tc-99m/Stress Tc-99m 1 day Rest Isotope: Tc-99m Sestamibi. Dose: 9.5 Date: 12/20/2024 Injection Time: 0940 Stress Isotope: Tc-99m Sestamibi. Dose: 27.0 Date: 12/20/2024 Injection Time: 1125 HR Resting HR Supine: 66 bpm Max Heart Rate (APMHR): 156 bpm Target HR (85% APMHR): 133 bpm Max HR Achieved: 86 bpm % of APMHR: 55 Recovery HR: 78 bpm BP Resting BP Supine: 110/74 mmHg Max BP: 110/74 mmHg Recovery BP: 110/60 mmHg ECG Resting ECG: Sinus Rhythm. Ectopy: None. Comment: T wave inversion noted in leads V2 and V3. Stress ECG: Sinus Rhythm. ST Change: Nondiagnostic low heart rate. Arrhythmia: None. Comment: T wave inversion noted in leads V2 and V3. Recovery ECG: Sinus Rhythm. Recovery ST Change: Nondiagnostic low heart rate. Recovery Arrhythmia: None. Comment: T wave inversion noted in leads V2 and V3. Clinical Stress Symptoms: Dyspnea, Headache. Angina Score: None Rate Pressure Product: 9460 Stress ECG Conclusion 1. 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 Patient underwent testing using pharmacologic stress with regadenoson 3. Peak heart rate achieved was 55% of maximal predicted for age 4. The electrocardiographic portion of the test was nondiagnostic 5. See MPI report Critical Notification Critical Value: Yes Physician Notified Date: 12/20/2024 Time: 1129 Physician Name: Gay Ashraf NP Response Time: 2 minutes Stress Test Summary STAGE HR BP SpO2 Symptoms NOTES Supine 66 110/74 94 Pt. noted to have expiratory wheezing bilaterally throughout, anterior and posterior, worse when supine. 1 min post Lexiscan injection 65 108/70 94 Pt. c/o moderate shortness of breath. 3 min post Lexiscan injection 83 106/54 94 Pt. c/o mild shortness of breath. 6 min post Lexiscan injection 78 110/60 96 Pt. denies shortness of breath, but still noted to have a few expiratory wheezes bilaterally throughout, anterior and posterior, which is back to her baseline. Pt. also c/o a slight headache. Pt. was encouraged to get herself a coffee and a snack following her post-stress test imaging. Pt. peformed an MPI stress test using a laying lexiscan protocol. Pt. was noted to have T wave inversion in leads V2 and V3 prior to starting the stress test, as well as, expiratory wheezing bilaterally throughout, anterior and posterior. Gay Ashraf NP was notified, and per PIE[employer] WORK INSPECTOR, it was safe to proceed with the stress test. Pt. experienced moderate shortness of breath immediately following the lexiscan injection, which resolved prior to leaving the Stress Lab. Pt. also c/o a slight headache prior to leaving the Stress Lab. RN reassured pt. that that is an expected side effect following lexiscan injection and encouraged the pt. to get herself a coffee and a snack following her post-stress test imaging. T wave inversion was present in leads V2 and V3 throughout the entire stress test. Pt. was conversing pleasantly upon leaving the Stress Lab. Pt. left ambulatory in no apparent distress. MPI Conclusion Myocardial perfusion is normal. There is no ischemia or evidence of prior infarction Ejection fraction is 66% with normal wall motion
[2024-12-20] MEDS: Regadenoson 0.4 MG/5 ML SYR IVP (11:24)
== END 2024-12-20 10:03 ==
LOC: DI 09:43
PROVIDERS: PCP Student in an Organized Health Care Education/Training Program; Visit Provider Student in an Organized Health Care Education/Training Program
DX: R07.9 Chest pain, unspecified (principal)
CPT/HCPCS: 78452; 93017; J2785